=== PATIENT | male | born 1940 | race Caucasian/White ===

== ENCOUNTER 2017-07-03 13:17 | Emergency (ER) | payer OTHER ==
--- OUTSIDE RECORDS SUMMARY | 2017-07-03 13:18 | XMS REPORT | Clinical Summary ---
:1940 Author Organization [facility] Address [address] [place] [address] Phone Care Team Providers Name Role Phone Unavailable Primary Care Provider Unavailable Allergies No Known Allergies Current Medications Prescription Sig. Disp. Refills Start Date End Date Status rosuvastatin Take 20 mg by Active (CRESTOR) 20 MG mouth daily. tablet ALPRAZolam (XANAX) 2 Take 2 mg by Active MG tablet mouth daily. olmesartan (BENICAR) Take 20 mg by Active 20 MG tablet mouth daily. metFORMIN Take 500 mg by Active (GLUCOPHAGE) 500 MG mouth daily tablet with breakfast. rivaroxaban (XARELTO) Take 20 mg by Active 20 mg Tab tablet mouth nightly. multivitamin per Take 1 tablet Active tablet by mouth daily. aspirin 325 MG tablet Take 325 mg by 11/12/2016 Discontinued mouth daily. CYANOCOBALAMIN, Take by mouth 2 11/12/2016 Discontinued VITAMIN B-12, (two) times (VITAMIN B-12 ORAL) daily. cloNIDine HCl Take 0.1 mg by 11/12/2016 Discontinued (CATAPRES) 0.1 MG mouth 3 (three) tablet times daily as needed. Active Problems Not on file Encounters Date Type Specialty Care Team Description 11/12/2016 Hospital Encounter Stan Rodriguez MD after 07/02/2016 Social History Tobacco Use Types Packs/Day Years Used Date Never Smoker Smokeless Tobacco: Never Used Alcohol Use Drinks/Week oz/Week Comments Yes couple of glasses of wine daily Sex Assigned at Date Recorded Not on file Last Filed Vital Signs Vital Sign Reading Time Taken Blood Pressure 141/88 11/12/2016 9:29 AM CDT Pulse 68 11/12/2016 9:29 AM CDT Temperature 36.8 C (98.2 F) 11/12/2016 5:28 AM CDT Respiratory Rate 18 11/12/2016 9:29 AM CDT Oxygen Saturation 97% 11/12/2016 9:29 AM CDT Inhaled Oxygen Concentration - - Weight 103.6 kg (228 lb 8 oz) 11/12/2016 5:28 AM CDT Height 175.3 cm (5' 9") 11/12/2016 5:28 AM CDT Body Mass Index 33.74 11/12/2016 5:28 AM CDT Plan of Treatment Health Maintenance Due Date Last Done Comments INFLUENZA VACCINE 11/09/2017 Results RHYTHM STRIP - SCAN (11/13/2016 11:40 AM)after 07/02/2016
--- NOTE | 2017-07-03 15:20 | RAD REPORT ---
EXAM DESCRIPTION: RAD - Shoulder Left 2 View - 07/03/2017 3:11 pm CLINICAL HISTORY: Fall, left shoulder pain COMPARISON: None. FINDINGS: Mild subacromial outlet narrowing is seen which could indicate underlying rotator cuff pat hology. No fracture dislocation identified.
--- NOTE | 2017-07-03 15:24 | RAD REPORT ---
EXAM DESCRIPTION: RAD - Elbow Left 3 View - 07/03/2017 3:10 pm CLINICAL HISTORY: Left elbow pain. COMPARISON: None. FINDINGS: Fracture radial head is noted with minimal displacement. Mild adjacent soft tissue swellin g is seen. IMPRESSION: Radial head fracture.
--- NOTE | 2017-07-03 15:38 | ER ---
Nurse's Notes [facility] Name: Leonidas Corona Age: 77 yrs Sex: Male : 1940 Arrival Date: 07/03/2017 Time: 13:19 Bed 7 Private MD: Kerwin Marlow Diagnosis: Fall due to bumping against object;Pain in left shoulder;Displaced fracture of head of left radius Presentation: 07/03 13:36 Presenting complaint: Patient states: " I was working at the [employer] this morning and I ph slipped on some carpeted stairs and landed on my L side." Pt reports that pain in L upper arm and shoulder, states that he did hit his head, denies LOC, +blood thinners. Care prior to arrival: None. Mechanism of Injury: Fall down steps. Trauma event details: Injury occurred in the [facility], Injury occurred: in a public building. Injury occurred: July 03, 2017. 13:36 Acuity: EFFIE 3 ph 13:36 Method Of Arrival: Ambulatory 13:45 Transition of care: patient was not received from another setting of care. Onset of hb symptoms was July 03, 2017. Risk Assessment: Do you want to hurt yourself or someone else? Patient reports no desire to harm self or others. Initial Sepsis Screen: Does the patient meet any 2 criteria? No. Patient's initial sepsis screen is negative. Does the patient have a suspected source of infection? No. Patient's initial sepsis screen is negative. Trauma Activation: Alert Physician: ED Physician; Name: ; Notified At: ; Arrived At: Physician: General Surgeon; Name: ; Notified At: ; Arrived At: Physician: Radiology; Name: ; Notified At: ; Arrived At: Physician: Respiratory; Name: ; Notified At: ; Arrived At: Physician: Lab; Name: ; Notified At: ; Arrived At: Historical: - Allergies: 13:40 No Known Allergies; ph - Home Meds: 13:40 Xarelto oral oral [Active]; ph - PMHx: 13:40 Atrial Fib; ph - PSHx: 13:40 mitral valve repair; Knee surgery; Appendectomy; ph - Immunization history:: Adult Immunizations unknown. - Social history:: Smoking status: Patient/guardian denies using tobacco. - Immunization history: Last tetanus immunization: - up to date. < 5 years ago. - Ebola Screening: : No symptoms or risks identified at this time. Screenin:50 Abuse screen: Denies threats or abuse. Denies injuries from another. Tuberculosis hb screening: No symptoms or risk factors identified. 15:01 Nutritional screening: No deficits noted. Fall Risk None identified. hb Primary Survey: 13:45 A: Airway: patent, No supplemental oxygen in use on arrival. Breathing/Chest: hb Respiratory pattern: regular, Respiratory effort: spontaneous, unlabored, Breath sounds: clear, Chest inspection: symmetrical rise and fall of the chest. Circulation: Pulses: palpable . Skin color: pink, Skin temperature: warm, dry. Disability Alert. 14:45 Reassessment Airway Airway Patent Breathing/Chest Respiratory pattern Regular hb Respiratory effort Spontaneous Unlabored Chest inspection Symmetrical Circulation Pulses Palpable Color [place] Temperature Warm Dry Disability Alert. 15:45 Reassessment Airway Airway Patent Breathing/Chest Respiratory pattern Regular hb Respiratory effort Spontaneous Unlabored Chest inspection Symmetrical Circulation Pulses Palpable Color [place] Temperature Warm Dry Disability Alert. Secondary Survey: 13:45 HEENT: No deficits noted. Gastrointestinal: No deficits noted. : No deficits noted. hb No signs and/or symptoms were reported regarding the genitourinary system. Musculoskeletal: Swelling present in left elbow Reports pain in left arm and left elbow and posterior aspect of left shoulder and anterior aspect of left shoulder. Assessment: 13:43 General: Appears in no apparent distress. comfortable, Behavior is calm, cooperative. rv Pain: Complains of pain in back of left arm. Neuro: Level of Consciousness is awake, alert, obeys commands, Oriented to person, place, time, situation. Cardiovascular: Heart tones S1 S2 present. Respiratory: Breath sounds are clear bilaterally. GI: No signs and/or symptoms were reported involving the gastrointestinal system. : No signs and/or symptoms were reported regarding the genitourinary system. EENT: No signs and/or symptoms were reported regarding the EENT system. Derm: 14:30 Reassessment: Patient appears in no apparent distress at this time. Patient and/or hb family updated on plan of care and expected duration. Pain level reassessed. Patient is alert, oriented x 3, equal unlabored respirations, skin warm/dry/pink. 15:30 Reassessment: Patient appears in no apparent distress at this time. No changes from hb previously documented assessment. Patient and/or family updated on plan of care and expected duration. Pain level reassessed. Patient is alert, oriented x 3, equal unlabored respirations, skin warm/dry/pink. 16:26 Reassessment: Discharge ordered, waiting for copies of radiology results for pt to take hb to ortho per Dr. Saenz. Vital Signs: 13:41 BP 154 / 89; Pulse 77; Resp 18; Temp 99.6; Pulse Ox 95% on R/A; Weight 113.4 kg; Height ph 5 ft. 7 in. (170.18 cm); Pain 8/10; 14:30 BP 153 / 88; Pulse 74; Resp 16; Pulse Ox 100% on R/A; Pain 8/10; hb 15:30 BP 148 / 88; Pulse 74; Resp 16; Pulse Ox 100% on R/A; Pain 5/10; hb 13:41 Body Mass Index 39.16 (113.40 kg, 170.18 cm) ph [place] Coma Score: 13:41 Eye Response: spontaneous(4). Verbal Response: oriented(5). Motor Response: obeys ph commands(6). Total: 15. Trauma Score (Adult): 13:41 Eye Response: spontaneous(1); Verbal Response: oriented(1); Motor Response: obeys ph commands(2); Systolic BP: > 89 mm Hg(4); Respiratory Rate: 10 to 29 per min(4); [place] Score: 15; Trauma Score: 12 14:30 Eye Response: spontaneous(1); Verbal Response: oriented(1); Motor Response: obeys hb commands(2); Systolic BP: > 89 mm Hg(4); Respiratory Rate: 10 to 29 per min(4); Verónica Score: 15; Trauma Score: 12 15:30 Eye Response: spontaneous(1); Verbal Response: oriented(1); Motor Response: obeys hb commands(2); Systolic BP: > 89 mm Hg(4); Respiratory Rate: 10 to 29 per min(4); Verónica Score: 15; Trauma Score: 12 ED Course: 13:19 Patient arrived in ED. mr 13:20 Kerwin Marlow MD is Private Physician. mr 13:39 Brian Saenz MD is Attending Physician. azeem 13:39 Triage completed. ph 13:42 Arm band placed on. ph 13:46 Inserted saline lock: 18 gauge in right antecubital area, using aseptic technique. rv 13:50 Patient has correct armband on for positive identification. Placed in gown. Bed in low hb position. Call light in reach. Side rails up X 1. 13:50 Patient maintains SpO2 saturation greater than 95% on room air. Thermoregulation: warm hb blanket given to patient. 14:57 Estefani Freeman, RN is Primary Nurse. hb 15:04 X-ray completed. Portable x-ray completed in exam room. Patient tolerated procedure ag1 well. 15:06 Shoulder Left (2 View) XRAY In Process Unspecified. EDMS 15:06 Elbow Left 3 View XRAY In Process Unspecified. EDMS 15:37 Kerwin Marlow MD is Referral Physician. [facility] 15:37 Blu Gray MD is Referral Physician. azeem 16:00 Orthoglass splint: posterior long arm splint applied to the left arm. Radial pulse jb1 present and within normal limits before and after application of splint. Capillary refill was two seconds before and after application of splint. 16:20 No provider procedures requiring assistance completed. IV discontinued, intact, hb bleeding controlled, No redness/swelling at site. Pressure dressing applied. Administered Medications: 15:46 Drug: Motrin 400 mg Route: PO; hb 15:55 Follow up: Response: Medication administered at discharge. hb Intake: 14:30 PO: 0ml; Total: 0ml. hb Output: 14:30 Urine: 0ml; Total: 0ml. hb Outcome: 15:38 Discharge ordered by MD. azeem 16:20 Discharged to home ambulatory. hb 16:20 Condition: stable 16:20 Discharge instructions given to patient, Instructed on discharge instructions, follow up and referral plans. medication usage, Demonstrated understanding of instructions, follow-up care, medications, splint care, Prescriptions given X 1. 16:27 Patient left the ED. hb 16:28 Patient's length of stay in the Emergency Department was greater than 2 hours. awaiting hb dispo and copies of radiology results top take to orthoPatient's length of stay extended due to Signatures: Dispatcher [employer] EDJuan Sandoval jb1 Brian Saenz MD MD cha Rivera, Maria mr Ebony Breen RN RN Velvet Yanez ag1 Estefani Freeman RN Weston Weaver RN RN rv Corrections: (The following items were deleted from the chart) 13:43 13:41 Pulse 77bpm; Resp 18bpm; Pulse Ox 95% RA; Temp 99.6F; 113.4 kg; Height 5 ft. 7 ph in.; BMI: 39.1; Pain 8/10; ph
--- NOTE | 2017-07-03 15:38 | EDPHYS ---
Physician Documentation [facility] Name: Leonidas Corona Age: 77 yrs Sex: Male : 1940 Arrival Date: 07/03/2017 Time: 13:19 Bed 7 Private MD: Kerwin Marlow ED Physician Brian Saenz HPI: 07/03 13:42 This 77 yrs old Male presents to ER via Ambulatory with complaints of Fall azeem Injury. 13:42 Details of fall: The patient fell from an upright position. Onset: The symptoms/episode azeem began/occurred just prior to arrival. Associated injuries: The patient sustained anterior aspect of left shoulder, left antecubital area, posterior aspect of left shoulder and left elbow, decreased range of motion. Severity of symptoms: At their worst the symptoms were mild, in the emergency department the symptoms are unchanged. The patient has not experienced similar symptoms in the past. Historical: - Allergies: 13:40 No Known Allergies; ph - Home Meds: 13:40 Xarelto oral oral [Active]; ph - PMHx: 13:40 Atrial Fib; ph - PSHx: 13:40 mitral valve repair; Knee surgery; Appendectomy; ph - Immunization history:: Adult Immunizations unknown. - Social history:: Smoking status: Patient/guardian denies using tobacco. - Immunization history: Last tetanus immunization: - up to date. < 5 years ago. - Ebola Screening: : No symptoms or risks identified at this time. ROS: 13:44 Constitutional: Negative for fever, chills, and weight loss, Eyes: Negative for injury, zaeem pain, redness, and discharge, ENT: Negative for injury, pain, and discharge, Neck: Negative for injury, pain, and swelling, Cardiovascular: Negative for chest pain, palpitations, and edema, Respiratory: Negative for shortness of breath, cough, wheezing, and pleuritic chest pain, Abdomen/GI: Negative for abdominal pain, nausea, vomiting, diarrhea, and constipation, Back: Negative for injury and pain, : Negative for injury, bleeding, discharge, and swelling, Skin: Negative for injury, rash, and discoloration, Neuro: Negative for headache, weakness, numbness, tingling, and seizure, Psych: Negative for depression, anxiety, suicide ideation, homicidal ideation, and hallucinations, Allergy/Immunology: Negative for hives, rash, and allergies, Endocrine: Negative for neck swelling, polydipsia, polyuria, polyphagia, and marked weight changes, Hematologic/Lymphatic: Negative for swollen nodes, abnormal bleeding, and unusual bruising. 13:44 MS/extremity: Positive for decreased range of motion, pain, swelling, tenderness, of the anterior aspect of left shoulder, left antecubital area, posterior aspect of left shoulder and left elbow. Exam: 13:44 Constitutional: This is a well developed, well nourished patient who is awake, alert, azeem and in no acute distress. Head/Face: Normocephalic, atraumatic. Eyes: Pupils equal round and reactive to light, extra-ocular motions intact. Lids and lashes normal. Conjunctiva and sclera are non-icteric and not injected. Cornea within normal limits. Periorbital areas with no swelling, redness, or edema. ENT: Nares patent. No nasal discharge, no septal abnormalities noted. Tympanic membranes are normal and external auditory canals are clear. Oropharynx with no redness, swelling, or masses, exudates, or evidence of obstruction, uvula midline. Mucous membranes moist. Neck: Trachea midline, no thyromegaly or masses palpated, and no cervical lymphadenopathy. Supple, full range of motion without nuchal rigidity, or vertebral point tenderness. No Meningismus. Chest/axilla: Normal chest wall appearance and motion. Nontender with no deformity. No lesions are appreciated. Cardiovascular: Regular rate and rhythm with a normal S1 and S2. No gallops, murmurs, or rubs. Normal PMI, no JVD. No pulse deficits. Respiratory: Lungs have equal breath sounds bilaterally, clear to auscultation and percussion. No rales, rhonchi or wheezes noted. No increased work of breathing, no retractions or nasal flaring. Abdomen/GI: Soft, non-tender, with normal bowel sounds. No distension or tympany. No guarding or rebound. No evidence of tenderness throughout. Back: No spinal tenderness. No costovertebral tenderness. Full range of motion. Male : Normal genitalia with no discharge or lesions. Skin: Warm, dry with normal turgor. Normal color with no rashes, no lesions, and no evidence of cellulitis. Neuro: Awake and alert, GCS 15, oriented to person, place, time, and situation. Cranial nerves II-XII grossly intact. Motor strength 5/5 in all extremities. Sensory grossly intact. Cerebellar exam normal. Normal gait. Psych: Awake, alert, with orientation to person, place and time. Behavior, mood, and affect are within normal limits. 13:44 Musculoskeletal/extremity: Extremities: grossly normal except: noted in the anterior aspect of left shoulder, left antecubital area, posterior aspect of left shoulder and left elbow: decreased ROM, pain. Vital Signs: 13:41 BP 154 / 89; Pulse 77; Resp 18; Temp 99.6; Pulse Ox 95% on R/A; Weight 113.4 kg; Height ph 5 ft. 7 in. (170.18 cm); Pain 8/10; 14:30 BP 153 / 88; Pulse 74; Resp 16; Pulse Ox 100% on R/A; Pain 8/10; hb 15:30 BP 148 / 88; Pulse 74; Resp 16; Pulse Ox 100% on R/A; Pain 5/10; hb 13:41 Body Mass Index 39.16 (113.40 kg, 170.18 cm) ph [place] Coma Score: 13:41 Eye Response: spontaneous(4). Verbal Response: oriented(5). Motor Response: obeys ph commands(6). Total: 15. Trauma Score (Adult): 13:41 Eye Response: spontaneous(1); Verbal Response: oriented(1); Motor Response: obeys ph commands(2); Systolic BP: > 89 mm Hg(4); Respiratory Rate: 10 to 29 per min(4); Verónica Score: 15; Trauma Score: 12 14:30 Eye Response: spontaneous(1); Verbal Response: oriented(1); Motor Response: obeys hb commands(2); Systolic BP: > 89 mm Hg(4); Respiratory Rate: 10 to 29 per min(4); [place] Score: 15; Trauma Score: 12 15:30 Eye Response: spontaneous(1); Verbal Response: oriented(1); Motor Response: obeys hb commands(2); Systolic BP: > 89 mm Hg(4); Respiratory Rate: 10 to 29 per min(4); Verónica Score: 15; Trauma Score: 12 MDM: 13:39 Patient medically screened. [facility] 13:45 Data reviewed: vital signs, nurses notes, radiologic studies, plain films. [facility] 07/03 13:42 Order name: Shoulder Left (2 View) XRAY [facility] 07/03 13:42 Order name: Elbow Left 3 View XRAY [facility] 07/03 13:42 Order name: Ice pack; Complete Time: 14:22 [facility] 07/03 15:36 Order name: Splint - Elbow - Posterior; Complete Time: 15:55 [facility] 07/03 15:36 Order name: Sling; Complete Time: 15:55 [facility] Administered Medications: 15:46 Drug: Motrin 400 mg Route: PO; 15:55 Follow up: Response: Medication administered at discharge. Disposition: 07/03/17 15:38 Discharged to Home. Impression: Fall due to bumping against object, Pain in left shoulder, Displaced fracture of head of left radius. - Condition is Stable. - Discharge Instructions: Musculoskeletal Pain, Radial Head Fracture, Shoulder Pain, Radial Head Fracture, [id number]. - Prescriptions for Tylenol- Codeine #3 300-30 mg Oral Tablet - take 2 tablet by ORAL route every 6 hours As needed; 30 tablet. - Medication Reconciliation Form, Thank You Letter, Antibiotic Education, Prescription Opioid Use form. - Follow up: Kerwin Marlow MD; When: 2 - 3 days; Reason: Recheck today's complaints, Continuance of care, Re-evaluation by your physician. Follow up: Blu Gray MD; When: 2 - 3 days; Reason: Recheck today's complaints, Re-evaluation by your physician. - Problem is new. - Symptoms have improved. Signatures: Dispatcher [employer] EDVT Brian Saenz MD MD cha Hall, Patricia, RN RN Estefani Freeman RN RN Corrections: (The following items were deleted from the chart) 16:27 15:38 07/03/2017 15:38 Discharged to Home. Impression: Fall due to bumping against object; Pain in left shoulder; Displaced fracture of head of left radius. Condition is Stable. Forms are Medication Reconciliation Form, Thank You Letter, Antibiotic Education, Prescription Opioid Use. Follow up: Kerwin Marlow; When: 2 - 3 days; Reason: Recheck today's complaints, Continuance of care, Re-evaluation by your physician. Follow up: Dr. Blu Gray; When: 2 - 3 days; Reason: Recheck today's complaints, Re-evaluation by your physician. Problem is new. Symptoms have improved. azeem
[2017-07-03] MEDS ORDERED: IBUPROFEN 200 MG TAB PO ONE (15:43)
== END 2017-07-03 16:27 | disposition home or self-care (01) ==
LOC: ER 13:17
DX: S52.122A Displaced fracture of head of left radius, initial encounter for closed fracture (principal); W18.00XA Striking against unspecified object with subsequent fall, initial encounter; Y93.89 Activity, other specified; Y92.9 Unspecified place or not applicable; Z79.02 Long term (current) use of antithrombotics/antiplatelets; I48.91 Unspecified atrial fibrillation
CPT/HCPCS: 99284

== ENCOUNTER 2018-04-22 10:06 | Observation (INO) | payer OTHER ==
--- OUTSIDE RECORDS SUMMARY | 2018-04-22 10:09 | XMS REPORT ---
:1940 Author Organization [employer] Care Team Providers Name Role Phone Blu Gray Provider Role Unavailable Allergies, Adverse Reactions, Alerts Substance Reaction Event Type N.K.D.A. Info Not Available Non Drug Allergy Problems Problem Type Condition Code Onset Dates Condition Status Assessment Elbow pain, left M25.522 Active Assessment Closed displaced fracture of head S52.122D Active of left radius with routine healing, subsequent encounter Assessment Sprain of left shoulder, S43.402D Active unspecified shoulder sprain type, subsequent encounter Medications Medication Code Code Instructions Start End Status Dosage System Date Date Flecainide [facility] 51333334825 50 MG Orally September 08, Active as directed Acetate 2017 Benicar [facility] 43095306655 20 MG Orally September 08, Active 1 tablet Once a day 2017 Xanax [facility] 72265781935 0.5 MG Orally September 08, Active 1 tablet Twice a day 2017 Xarelto [facility] 66480229594 10 MG Orally September 08, Active 1 tablet Once a day 2018 with food Metformin HCl ND 29491793511 500 MG Orally September 08, Active 1 tablet Once a day 2017 with a meal Crestor [facility] 78856598323 10 MG Orally September 08, Active 1 tablet Once a day 2018 Results No Known Results Summary Purpose [employer] Submission
--- OUTSIDE RECORDS SUMMARY | 2018-04-22 10:09 | XMS REPORT | Clinical Summary ---
:1940 Author Organization [facility] Address [address] [place] [address] Care Team Providers Name Role Phone Kerwin Marlow Primary Care Provider Allergies No Known Allergies Medications Medication Sig Dispensed Refills Start Date End Date Status rosuvastatin (CRESTOR) Take 20 mg by 0 Active 20 MG tablet mouth daily. ALPRAZolam (XANAX) 2 MG Take 2 mg by 0 Active tablet mouth daily. olmesartan (BENICAR) 20 Take 20 mg by 0 Active MG tablet mouth daily. metFORMIN (GLUCOPHAGE) Take 500 mg by 0 Active 500 MG tablet mouth daily with breakfast. rivaroxaban (XARELTO) Take 20 mg by 0 Active 20 mg Tab tablet mouth nightly. multivitamin per tablet Take 1 tablet by 0 Active mouth daily. Active Problems Not on file Social History Tobacco Use Types Packs/Day Years Used Date Never Smoker Smokeless Tobacco: Never Used Alcohol Use Drinks/Week oz/Week Comments Yes couple of glasses of wine daily Sex Assigned at Date Recorded Not on file Job Start Date Occupation Industry Not on file Not on file Not on file Travel History Travel Start Travel End No recent travel history available. Last Filed Vital Signs Not on file Plan of Treatment Health Maintenance Due Date Last Done Comments INFLUENZA VACCINE 11/09/2017 Results Not on fileafter 04/21/2017 Insurance Payer Benefit Plan / Subscriber ID Type Phone Address Group [employer] - MEDICARE [employer] MEDICARE HMO xxxxxxxx [phone] [address] [employer] POS [facility]PO [facility] [place] [address] [address] (Home) [place] [address]
--- OUTSIDE RECORDS SUMMARY | 2018-04-22 10:09 | XMS REPORT ---
:1940 Author Organization [employer] Care Team Providers Name Role Phone Blu Gray Provider Role Unavailable Allergies, Adverse Reactions, Alerts Substance Reaction Event Type N.K.D.A. Info Not Available Non Drug Allergy Problems Problem Type Condition Code Onset Dates Condition Status Problem Closed displaced fracture of head S52.122D Active of left radius with routine healing, subsequent encounter Problem Elbow pain, left M25.522 Active Assessment Elbow pain, left M25.522 Active Assessment Closed displaced fracture of head S52.122D Active of left radius with routine healing, subsequent encounter Medications Medication Code Code Instructions Start End Status Dosage System Date Date Crestor [facility] 70598381575 10 MG Orally September 08, Active 1 tablet Once a day 2017 Xanax [facility] 61272555541 0.5 MG Orally September 08, Active 1 tablet Twice a day 2017 Metformin HCl ND 14021459933 500 MG Orally September 08, Active 1 tablet Once a day 2018 with a meal Benicar [facility] 88524282848 20 MG Orally September 08, Active 1 tablet Once a day 2017 Flecainide ND 63683282146 50 MG Orally September 08, Active as directed Acetate 2018 Xarelto ND 84948799988 10 MG Orally September 08, Active 1 tablet Once a day 2018 with food Results No Known Results Summary Purpose [employer]Works Submission
[2018-04-22] MEDS ORDERED: ACETAMINOPHEN 500 MG TAB ONE (11:03)
[2018-04-22] MEDS ORDERED: LEVALBUTEROL 1.25 MG/3 ML NEB ONE (11:03)
[2018-04-22] MEDS ORDERED: NA CHLORIDE 0.9% 500 ML ONE (11:03)
[2018-04-22 11:23] LABS: Protime INR 1.16
[2018-04-22 11:24] LABS: Absolute Lymphocytes (CBC) 0.4 K/uL (0.7-4.9); Absolute Monocytes 0.7 K/uL (0.1-1.3); Absolute Neutrophil 4.5 K/uL (1.8-8.0); Basophils % 0.5 % (0-1.3); Eosinophils % 1.8 % (0-4.4); Hematocrit 40.7 % (39.6-49.0); Lymphocytes % 7.4 % (15.3-44.8); MPV 9.1 fL (7.6-11.3); Monocytes % 12.8 % (3.3-12.3); RBC Red Blood Cell Count 4.24 M/uL (4.33-5.43)
--- NOTE | 2018-04-22 11:33 | RAD REPORT ---
EXAM DESCRIPTION: Dmitri Single View04/22/2018 11:27 am CLINICAL HISTORY: Shortness of breath COMPARISON: 2010 FINDINGS: Mild bilateral pulmonary opacities. The heart is mildly to moderately enlarged. Postsurgical changes involve the chest. IMPRESSION: Mild CHF
[2018-04-22 11:40] LABS: ALT/SGPT 34 U/L (12-78); AST/SGOT 22 U/L (15-37); Albumin 3.8 g/dL (3.4-5.0); Alkaline Phosphatase 100 U/L (45-117); BUN Blood Urea Nitrogen 16 mg/dL (7-18); Bicarbonate 30 mmol/L (21-32); Bilirubin Direct 0.2 mg/dL (0-0.2); Bilirubin Total 0.5 mg/dL (0.2-1.0); Glucose Level 116 mg/dL (74-106); NT PRO-BNP 2160 pg/mL (<450); Potassium 4.2 mmol/L (3.5-5.1); Protein, Total 7.7 g/dL (6.4-8.2); Sodium Level 139 mmol/L (136-145); Troponin (Emerg Dept Use Only) < 0.02 ng/mL (0.0-0.045)
--- NOTE | 2018-04-22 12:32 | EDPHYS ---
Physician Documentation [facility] Name: Leonidas Corona Age: 77 yrs Sex: Male : 1940 Arrival Date: 04/22/2018 Time: 10:15 Bed 8 Private MD: Kerwin Marlow ED Physician Brian Saenz HPI: 04/22 10:51 This 77 yrs old Male presents to ER via Ambulatory with complaints of Flu jmm Symptoms. 10:51 The patient or guardian reports cough. Onset: The symptoms/episode began/occurred jmm gradually, 3 day(s) ago. Modifying factors: The symptoms are alleviated by nothing. the symptoms are aggravated by nothing. Associated signs and symptoms: Pertinent positives: diarrhea, fever. This is a 77 year old male with a history of atrial fibrillation, dm, htn, anxiety that presents to the ED with complaints of cough, shortness of breath, diarrhea. . Historical: - Allergies: 10:48 No Known Allergies; hb - Home Meds: 10:48 Xarelto Oral [Active]; gabapentin oral oral [Active]; Furosemide Oral [Active]; unknown hb cholesterol med [Active]; Xanax Oral [Active]; - PMHx: 10:48 Atrial Fib; hb - PSHx: 10:48 mitral valve repair; Knee surgery; Appendectomy; hb - Immunization history:: Adult Immunizations up to date. - Social history:: Smoking status: Patient/guardian denies using tobacco. - Ebola Screening: : No symptoms or risks identified at this time. ROS: 10:51 Constitutional: Positive for body aches, fever. jmm 10:51 Respiratory: Positive for cough, shortness of breath. 10:51 Abdomen/GI: Positive for diarrhea. 10:51 All other systems are negative. Exam: 10:51 Constitutional: This is a well developed, well nourished patient who is awake, alert, jmm and in no acute distress. Head/Face: atraumatic. Eyes: EOMI, no conjunctival erythema appreciated ENT: Moist Mucus Membranes Neck: Trachea midline, Supple Chest/axilla: Normal chest wall appearance and motion. 10:51 Cardiovascular: Rate: tachycardic, Rhythm: regular. 10:51 Respiratory: mild respiratory distress is noted, Respirations: normal, Breath sounds: wheezing: is scattered. 10:51 Back: ROM is normal. 10:51 Musculoskeletal/extremity: ROM: intact in all extremities. 10:51 Skin: Appearance: Color: normal in color. 10:51 Neuro: Orientation: is normal, Mentation: is normal, Memory: is normal. 10:51 Psych: Behavior/mood is pleasant, cooperative. Vital Signs: 10:44 BP 180 / 105; Pulse 115; Resp 40; Temp 100.2(O); Pulse Ox 94% on R/A; Pain 3/10; hb 15:12 BP 106 / 77; Pulse 111; Resp 24; Pulse Ox 97% on R/A; sv MDM: 10:44 Patient medically screened. azeem 12:29 Data reviewed: vital signs, nurses notes. Counseling: I had a detailed discussion with adela the patient and/or guardian regarding: the historical points, exam findings, and any diagnostic results supporting the discharge/admit diagnosis, lab results, radiology results, the need for further work-up and treatment in the hospital. ED course: Patient still exhibits mild resp distress. I discussed the patient with Dr. Byrne whom accepted admission. . 04/22 10:47 Order name: Basic Metabolic Panel; Complete Time: 11:42 [facility] 04/22 10:47 Order name: CBC with Diff; Complete Time: 11:35 [facility] 04/22 10:47 Order name: LFT's; Complete Time: 11:42 [facility] 04/22 10:47 Order name: Magnesium; Complete Time: 11:42 [facility] 04/22 10:47 Order name: NT PRO-BNP; Complete Time: 11:42 [facility] 04/22 10:47 Order name: PT-INR; Complete Time: 11:35 [facility] 04/22 10:47 Order name: Troponin (emerg Dept Use Only); Complete Time: 11:42 [facility] 04/22 10:47 Order name: XRAY Chest (1 view); Complete Time: 11:35 [facility] 04/22 10:48 Order name: Blood Culture Adult (2) [facility] 04/22 10:48 Order name: Lactate; Complete Time: 11:42 [facility] 04/22 10:48 Order name: Procalcitonin; Complete Time: 12:34 [facility] 04/22 11:43 Order name: Flu; Complete Time: 12:25 [facility] 04/22 13:08 Order name: Echo with Doppler [facility] 04/22 10:47 Order name: EKG; Complete Time: 10:48 [facility] 04/22 10:47 Order name: Cardiac monitoring; Complete Time: 12:05 [facility] 04/22 10:47 Order name: EKG - Nurse/Tech; Complete Time: 12:06 [facility] 04/22 10:47 Order name: IV Saline Lock; Complete Time: 12: [facility] 04/22 10:47 Order name: Labs collected and sent; Complete Time: 12: [facility] 04/22 10:47 Order name: O2 Per Protocol; Complete Time: 12: [facility] 04/22 10:47 Order name: O2 Sat Monitoring; Complete Time: 12: [facility] Administered Medications: 11:05 Drug: NS 0.9% 500 ml Route: IV; Rate: bolus; Site: left antecubital; sg 11:05 Drug: Tylenol 1000 mg Route: PO; sg 11:05 Drug: Xopenex (3) 1.25 mg Route: Inhalation; sg 15:07 Drug: Metoprolol 25 mg Route: PO; sv 15:08 Drug: Tamiflu 75 mg Route: PO; sv Disposition: 04/23 09:07 Co-signature as Attending Physician, Brian Saenz MD I agree with the assessment and azeem plan of care. Disposition: 04/22/18 12:32 Hospitalization ordered by Cornel Byrne for Observation. Preliminary diagnosis are Influenza due to certain identified influenza viruses, Acute combined systolic (congestive) and diastolic (congestive) heart failure. - Bed requested for Telemetry/MedSurg (observation). - Status is Observation. hb - Condition is Stable. - Problem is new. - Symptoms have improved. UTI on Admission? No Signatures: Dispatcher [employer] EDCT Dhara Napier RN Bebe Galvez RN RN dw Gay, Steven, RN RN sg Anderson, Corey, MD MD cha Mickail, Joel, PA PA [facility] Estefani Freeman RN RN hb Corrections: (The following items were deleted from the chart) 04/22 14:38 12:32 Hospitalization Ordered by Cornel Byrne MD for Observation. Preliminary diagnosis dw is Influenza due to certain identified influenza viruses; Acute combined systolic (congestive) and diastolic (congestive) heart failure. Bed requested for Telemetry/MedSurg (observation). Status is Observation. Condition is Stable. Problem is new. Symptoms have improved. UTI on Admission? No. jmm 15:30 14:38 04/22/2018 12:32 Hospitalization Ordered by Cornel Byrne MD for Observation. hb Preliminary diagnosis is Influenza due to certain identified influenza viruses; Acute combined systolic (congestive) and diastolic (congestive) heart failure. Bed requested for Telemetry/MedSurg (observation). Status is Observation. Condition is Stable. Problem is new. Symptoms have improved. UTI on Admission? No. dw
--- NOTE | 2018-04-22 12:32 | ER ---
Nurse's Notes [facility] Name: Leonidas Corona Age: 77 yrs Sex: Male : 1940 Arrival Date: 04/22/2018 Time: 10:15 Bed 8 Private MD: Kerwin Marlow Diagnosis: Influenza due to certain identified influenza viruses;Acute combined systolic (congestive) and diastolic (congestive) heart failure Presentation: 04/22 10:44 Acuity: EFFIE 2 hb 10:45 Presenting complaint: SOB, productive cough, body aches, chills, dizziness, lethargy, hb and diarrhea x 3 days. Transition of care: patient was not received from another setting of care. Onset of symptoms was April 19, 2018. Risk Assessment: Do you want to hurt yourself or someone else? Patient reports no desire to harm self or others. Care prior to arrival: None. 10:45 Method Of Arrival: Ambulatory hb Historical: - Allergies: 10:48 No Known Allergies; hb - Home Meds: 10:48 Xarelto Oral [Active]; gabapentin oral oral [Active]; Furosemide Oral [Active]; unknown hb cholesterol med [Active]; Xanax Oral [Active]; - PMHx: 10:48 Atrial Fib; hb - PSHx: 10:48 mitral valve repair; Knee surgery; Appendectomy; hb - Immunization history:: Adult Immunizations up to date. - Social history:: Smoking status: Patient/guardian denies using tobacco. - Ebola Screening: : No symptoms or risks identified at this time. Screenin:00 Abuse screen: Denies threats or abuse. Denies injuries from another. Nutritional sg screening: No deficits noted. Tuberculosis screening: No symptoms or risk factors identified. Never had TB. Fall Risk None identified. Assessment: 11:00 General: Appears in no apparent distress. well groomed, well developed, well nourished, sg Behavior is calm, cooperative, appropriate for age. Pain: Denies pain. Quality of pain is described as body aches, and sore throat. Neuro: Level of Consciousness is awake, alert, obeys commands, Oriented to person, place, time, Speech is normal, Facial symmetry appears normal. Cardiovascular: Capillary refill is brisk in bilateral fingers Patient's skin is warm and dry. Chest pain is denied. Respiratory: Airway is patent Respiratory effort is even, labored, shallow, Respiratory pattern is symmetrical, tachypnea. GI: Abdomen is round non-distended, Bowel sounds present X 4 quads. : No signs and/or symptoms were reported regarding the genitourinary system. EENT: No signs and/or symptoms were reported regarding the EENT system. Derm: Skin is pink, warm \T\ dry. Musculoskeletal: No signs and/or symptoms reported regarding the musculoskeletal system. Vital Signs: 10:44 BP 180 / 105; Pulse 115; Resp 40; Temp 100.2(O); Pulse Ox 94% on R/A; Pain 3/10; hb 15:12 BP 106 / 77; Pulse 111; Resp 24; Pulse Ox 97% on R/A; sv ED Course: 10:15 Patient arrived in ED. dp 10:15 Kerwin Marlow MD is Private Physician. dp 10:41 [facility] jmm 10:41 Brian Saenz MD is Attending Physician. jmm 10:45 Triage completed. hb 10:46 Arm band placed on. hb 11:00 Initial lab(s) drawn, by me, sent to lab. First set of blood cultures drawn by me. dh3 Inserted saline lock: 20 gauge in left antecubital area, using aseptic technique. Blood collected. 11:15 Second set of blood cultures drawn by me. dh3 11:19 Ole Wayne, RN is Primary Nurse. sg 11:25 X-ray completed. Portable x-ray completed in exam room. Patient tolerated procedure sw well. 11:27 XRAY Chest (1 view) In Process Unspecified. EDMS 11:41 EKG done, by residential tech. reviewed by Kennedy WILSON. at1 12:03 Flu and/or RSV swab sent to lab. dh3 12:31 Cornel Byrne MD is Hospitalizing Provider. m Administered Medications: 11:05 Drug: NS 0.9% 500 ml Route: IV; Rate: bolus; Site: left antecubital; sg 11:05 Drug: Tylenol 1000 mg Route: PO; sg 11:05 Drug: Xopenex (3) 1.25 mg Route: Inhalation; sg 15:07 Drug: Metoprolol 25 mg Route: PO; sv 15:08 Drug: Tamiflu 75 mg Route: PO; sv Outcome: 12:32 Decision to Hospitalize by Provider. adela 15:30 Patient left the ED. hb Signatures: Dispatcher [employer] Dhara Justin RN RN sv Gay, Steven, RN RN sg Mickail, Joel, PA PA Terese [email or web address], retort press operator EKG Tat1 Jessica Interiano Heather, RN RN Kailey Sherwood [facility] Reynaldo Moctezuma
[2018-04-22] MEDS ORDERED: METOPROLOL TAR 25 MG TAB ONE ×2 (14:48→15:17)
[2018-04-22] MEDS ORDERED: OSELTAMIVIR 75 MG CAP ONE (15:17)
[2018-04-22] MEDS ORDERED: D50W 25 GM/50 ML SYRINGE IV PRN (15:39)
[2018-04-22] MEDS ORDERED: GLUCAGON 1 MG/VIAL IM PRN (15:39)
[2018-04-22] MEDS: IPRATROPIUM BROM 0.5MG/2.5ML NEB SCH ×2 (15:58→20:00)
[2018-04-22] MEDS: LEVALBUTEROL 1.25 MG/3 ML NEB NEB SCH ×2 (15:58→20:00)
[2018-04-22] MEDS ORDERED: INSULIN -REGULAR HUMAN 50 UNIT/0.5 ML ML SQ SCH (16:30)
[2018-04-22] MEDS ORDERED: POTASSIUM CL SA 10 MEQ TAB PO ONE (16:30)
[2018-04-22 16:51] LABS: Thyroid Stimulating Hormone 0.761 uIU/mL (0.360-3.740)
--- NOTE | 2018-04-22 17:22 | ECHO ---
HEIGHT: ft in WEIGHT: lb oz DATE OF STUDY: 04/22/[address]: Cornel Byrne MD 2-DIMENSIONAL: YES M.MODE: YES DOPPLER: YES COLOR FLOW: YES TDS: PORTABLE: DEFINITY: BUBBLE STUDY: DIAGNOSIS: CONGESTIVE HEART FAILURE FINDINGS CARDIAC HISTORY: CATHERIZATION: SURGERY: YES PROSTHETIC VALVE: MITRAL VALVE REPAIR PACEMAKER: NO MEASUREMENTS (cm) DIASTOLIC (NORMALS) SYSTOLIC (NORMALS) IVSd 1.2 (0.6-1.2) LA Diam 4.9 (1.9-4.0) LVEF 60-69% LVIDd 4.1 (3.5-5.7) LVIDs 3.1 (2.0-3.5) %FS 25% LVPWd 1.3 (0.6-1.2) Ao Diam 2.9 (2.0-3.7) 2 DIMENSIONAL ASSESSMENT: RIGHT ATRIUM: DILATED LEFT ATRIUM: DILATED RIGHT VENTRICLE: NORMAL LEFT VENTRICLE: LEFT VENTRICULAR HYPERTROPHY TRICUSPID VALVE: NORMAL MITRAL VALVE: THICKENED ANNULUS CONSISTENT WITH REHMAN RING. PULMONIC VALVE: NORMAL AORTIC VALVE: NORMAL PERICARDIAL EFFUSION: NONE AORTIC ROOT: NORMAL LEFT VENTRICULAR WALL MOTION: NORMAL DOPPLER/COLOR FLOW: MILD ATRIAL REGURGITATION, MITRAL REGURGITATION, AND TRICUSPID REGURGITATION. ESTIMATED RIGHT VENTRICULAR SYSTOLIC PRESSURE 55 mmHg. COMMENTS: NORMAL LEFT VENTRICULAR EJECTION FRACTION. DILATED RIGHT AND LEFT ATRIUM. LEFT VENTRICULAR HYPERTROPHY. MITRAL ANNULAR CALCIFICATION. MILD AORTIC REGURGITATION, MITRAL REGURGITAITON, AND TRICUSPID REGURGITATION. MODERATE PULMONARY HYPERTENSION. ATRIAL FIBRILLATION WITH HEART RATE OF 90-110 BEATS PER MINUTE. TECHNOLOGIST: LAZARO GARDNER
[2018-04-22] MEDS ORDERED: PNEUMOCOCCAL VACCINE 0.5 ML IMVAC ONE (18:00)
[2018-04-22] MEDS ORDERED: ACETAMINOPHEN 500 MG TAB PO PRN (21:18)
--- NOTE | 2018-04-22 22:52 | P.HP ---
Certification for Inpatient Patient admitted to: Observation With expected LOS: <2 Midnights Practitioner: I am a practitioner with admitting privileges, knowledge of patient current condition, hospital course, and medical plan of care. Services: Services provided to patient in accordance with Admission requirements found in Title 42 Section 412.3 of the Code of Federal Regulations Patient History Date of Service: 04/22/18 Primary Care Provider: Dr. Marlow Reason for admission: Generalized weakness History of Present Illness: This is a 77 yr old male with a PMH of A-fib, Mitral valve repair admitted for lethargy, cough and congestion that has been progressively worsening for the past few days. He also endorses some watery, non bloody diarrhea that has now improved. In the ED, he was found to be in A fin with HR of 115s, and tachypneac. He was also found to be influenza positive. His BNP was elevated to 2160, pt reports he has no hx of CHF. His other labs were unremarkable. CXR was with evidence of mild volume overload. He was given breathing treatment wiht xopenex along with 500 ml IVF. At the time of my exam, he was AAOx3, in no acute distress and hemodynamically stable. Allergies No Known Allergies Allergy (Unverified 07/03/17 16:30) Home Medications: ALPRAZolam [Alprazolam] 0.5 tab PO DAILY PRN 04/22/18 Flecainide [Tambocor*] 50 mg PO Q12H 04/22/18 Metformin ER [Glucophage ER*] 500 mg PO DAILY 04/22/18 Olmesartan Medoxomil 20 mg PO DAILY 04/22/18 Rivaroxaban [Xarelto] 20 mg PO DAILY 04/22/18 Rosuvastatin [Crestor*] 20 mg PO BEDTIME 04/22/18 - Past Medical/Surgical History Has patient received pneumonia vaccine in the past: No Diabetic: No -: Appendicitis -: Atrial Fibrillation -: High cholesterol -: Mitral Valve Repair -: Knee surgery -: Appendectomy -: Root Canal - Family History Father Notes: - Congestive heart failure - Social History Smoking Status: Never smoker Alcohol use: Yes CD- Drugs: No Caffeine use: Yes Place of Residence: Home Review of Systems 10-point ROS is otherwise unremarkable Physical Examination - Vital Signs Temperature: 99.8 F Blood Pressure: 127/73 Pulse: 65 Respirations: 24 Pulse Ox (%): 95 - Physical Exam General: Alert, In no apparent distress, Oriented x3 HEENT: Atraumatic, PERRLA, Mucous membr. moist/pink, EOMI, Sclerae nonicteric Neck: Supple, 2+ carotid pulse no bruit, No LAD, Without JVD or thyroid abnormality Respiratory: Clear to auscultation bilaterally, Normal air movement Cardiovascular: Normal S1 S2, Irregular heart rate/rhythm Gastrointestinal: Normal bowel sounds, No tenderness Musculoskeletal: No tenderness Integumentary: No rashes Neurological: Normal gait, Normal speech, Normal strength at 5/5 x4 extr, Normal tone, Normal affect Lymphatics: No axilla or inguinal lymphadenopathy - Studies Laboratory Data (last 24 hrs) 04/22/18 11:00: PT 13.6 H, INR 1.16 04/22/18 11:00: WBC 5.8, Hgb 13.1 L, Hct 40.7, Plt Count 182 04/22/18 11:00: Sodium 139, Potassium 4.2, BUN 16, Creatinine 1.07, Glucose 116 H, Magnesium 2.0, Total Bilirubin 0.5, AST 22, ALT 34, Alkaline Phosphatase 100 Microbiology Data (last 24 hrs): 04/22/18 11:59 Nasopharnyx Influenza Type A Antigen Screen - Final 04/22/18 11:59 Nasopharnyx Influenza Type B Antigen Screen - Final Assessment and Plan - Plan This is a 77 yr old male with: Influenza: s/p 1 dose of tamiflu in ED. We will continue the Tamiflu. Provide supportive care. Elevated BNP: No hx of CHF; ECHO ordered, pending. Chronic A.fib, on xarelto. Will resume home medications as tolerated. DVT prophylaxis: Xarelto GI prophylaxis: None Diet: Heart healthy Dispo: admit to floor, pending symptomatic improvement. - Advance Directives Does patient have a Living Will: Yes Does patient have a Durable POA for Healthcare: Yes Time Spent Managing Pts Care (In Minutes): 55
[2018-04-22] MEDS ORDERED: ALPRAZOLAM 1 MG TABLET PO PRN (22:55)
[2018-04-22 23:37] LABS: Urine Appearance CLEAR; Urine Bilirubin NEGATIVE (NEG); Urine Blood TRACE (NEG); Urine Color YELLOW; Urine Glucose NEGATIVE (NEG); Urine Protein 1+ (NEG); Urine Urobilinogen 0.2 mg/dL (0.2-1.0)
[2018-04-22 23:46] LABS: Urine Microscopic Reflex ORDER UMIC
[2018-04-23 00:31] LABS: Urine Bacteria <20 /HPF (NONE SEEN); Urine Culture Reflex Order NOT NEEDED; Urine RBC <5 /HPF (NONE SEEN)
[2018-04-23] MEDS: LEVALBUTEROL 1.25 MG/3 ML NEB NEB SCH ×2 (02:00→07:38)
[2018-04-23] MEDS: IPRATROPIUM BROM 0.5MG/2.5ML NEB SCH ×2 (02:00→07:38)
[2018-04-23 05:10] LABS: Absolute Lymphocytes (CBC) 1.4 K/uL (0.7-4.9); Absolute Monocytes 0.8 K/uL (0.1-1.3); Absolute Neutrophil 2.5 K/uL (1.8-8.0); Basophils % 0.6 % (0-1.3); Eosinophils % 0.9 % (0-4.4); Hematocrit 35.9 % (39.6-49.0); Lymphocytes % 28.8 % (15.3-44.8); MPV 9.2 fL (7.6-11.3); Monocytes % 16.6 % (3.3-12.3); RBC Red Blood Cell Count 3.74 M/uL (4.33-5.43)
--- NOTE | 2018-04-23 05:35 | EKG ---
Test Date: 2018-04-22 Test Time: 11:05:46 Law Instructor: DONALDO MEASUREMENT RESULTS: Intervals: Rate: 129 IL: QRSD: 90 QT: 336 QTc: 492 Hubert: P: IL: QRS: 45 T: 36 INTERPRETIVE STATEMENTS: Atrial fibrillation with rapid ventricular response Nonspecific ST abnormality Abnormal ECG No previous ECG available for comparison Electronically Signed On 04-23-18 05:34:33 CDT by Steve Broussard
[2018-04-23 05:36] LABS: Albumin 3.1 g/dL (3.4-5.0); Bilirubin Total 0.3 mg/dL (0.2-1.0); Protein, Total 6.4 g/dL (6.4-8.2)
[2018-04-23 06:35] VITALS: BMI 33.2
--- NOTE | 2018-04-23 08:05 | RAD REPORT ---
EXAM DESCRIPTION: RAD - Chest Pa And Lat (2 Views) - 04/23/2018 7:14 am CLINICAL HISTORY: CHF COMPARISON: April 22 TECHNIQUE: PA and lateral views of the chest were obtained. FINDINGS: The lungs are no new mass or consolidation. Prominence of the lung markings has improved. Patient has a baseline of interstitial lung disease. Cardiac silhouette remains enlarged. Central v asculature has decreased in size. Sternotomy wires remain in place. No pleural effusion or pneumothor ax seen. No acute bony finding noted. No aortic abnormality. IMPRESSION: Significant improvement in the CHF/volume overload pattern. No progressive finding.
[2018-04-23 08:52] VITALS: BP 123/86; TEMP 97.9
[2018-04-23] MEDS ORDERED: RIVAROXABAN 20 MG TABLET PO SCH (09:00)
[2018-04-23] MEDS ORDERED: VALSARTAN 80 MG TAB PO SCH (09:00)
[2018-04-23] MEDS ORDERED: OSELTAMIVIR 75 MG CAP PO SCH (09:00)
[2018-04-23 09:15] LABS: Blood Morphology Comment NOT SEEN (NOT SEEN); Platelet Estimate ADEQ
[2018-04-23 13:34] VITALS: O2SAT 94
--- NOTE | 2018-04-23 16:42 | P.SSS ---
Patient History Date of Service: 04/23/18 Primary Care Provider: Dr. Marlow Reason for admission: Generalized weakness History of Present Illness: This is a 77 yr old male with a PMH of A-fib, Mitral valve repair admitted for lethargy, cough and congestion that has been progressively worsening for the past few days. He also endorses some watery, non bloody diarrhea that has now improved. In the ED, he was found to be in A fin with HR of 115s, and tachypneac. He was also found to be influenza positive. His BNP was elevated to 2160, pt reports he has no hx of CHF. His other labs were unremarkable. CXR was with evidence of mild volume overload. He was given breathing treatment wiht xopenex along with 500 ml IVF. At the time of my exam, he was AAOx3, in no acute distress and hemodynamically stable. Allergies No Known Allergies Allergy (Unverified 07/03/17 16:30) Home Medications: ALPRAZolam [Alprazolam] 0.5 tab PO DAILY PRN 04/22/18 Flecainide [Tambocor*] 50 mg PO Q12H 04/22/18 Metformin ER [Glucophage ER*] 500 mg PO DAILY 04/22/18 Olmesartan Medoxomil 20 mg PO DAILY 04/22/18 Rivaroxaban [Xarelto] 20 mg PO DAILY 04/22/18 Rosuvastatin [Crestor*] 20 mg PO BEDTIME 04/22/18 Oseltamivir [Tamiflu*] 75 mg PO BID #10 cap 04/23/18 - Past Medical/Surgical History Has patient received pneumonia vaccine in the past: No Diabetic: No -: Appendicitis -: Atrial Fibrillation -: High cholesterol -: Mitral Valve Repair -: Knee surgery -: Appendectomy -: Root Canal - Family History Father Notes: - Congestive heart failure - Social History Smoking Status: Never smoker Alcohol use: Yes CD- Drugs: No Caffeine use: Yes Place of Residence: Home Review of Systems 10-point ROS is otherwise unremarkable Physical Examination - Vital Signs Temperature: 97.9 F Blood Pressure: 123/86 Pulse: 92 Respirations: 18 Pulse Ox (%): 93 - Physical Exam General: Alert, In no apparent distress, Oriented x3 HEENT: Atraumatic, PERRLA, Mucous membr. moist/pink, EOMI, Sclerae nonicteric Neck: Supple, 2+ carotid pulse no bruit, No LAD, Without JVD or thyroid abnormality Respiratory: Clear to auscultation bilaterally, Normal air movement Cardiovascular: Regular rate/rhythm, Normal S1 S2 Gastrointestinal: Normal bowel sounds, No tenderness Musculoskeletal: No tenderness Integumentary: No rashes Neurological: Normal gait, Normal speech, Normal strength at 5/5 x4 extr, Normal tone, Normal affect Lymphatics: No axilla or inguinal lymphadenopathy - Studies Microbiology Data (last 24 hrs): 04/22/18 11:59 Nasopharnyx Influenza Type A Antigen Screen - Final 04/22/18 11:59 Nasopharnyx Influenza Type B Antigen Screen - Final Treatment Summary: Patient was admitted for influenza positive. He was started on Tamiflu and provide supportive care. He was also noted to have elevated BNP without any history of CHF. An echo was ordered, was negative with a normal ejection fraction. Repeat chest x-ray with improvement. His symptoms improved, he was discharged in a stable manner. Prior to discharge, he was alert oriented x3, in no acute distress and his symptoms had improved. He was tolerating a regular diet, ambulating without any concerns. He otherwise remained hemodynamically stable throughout the stay. He was discharged on Tamiflu, to complete a five-day course. No other medication changes were made to his regimen. He will follow up with his primary care physician in 1-2 weeks. - Disposition Discharge Date: 04/23/18 Disposition: ROUTINE DISCHARGE Condition: GOOD Patient Discharge Instructions: Please follow up with the primary care physician in 1 week. Prescription for Tamiflu has been sent to pharmacy for you. Please return to the emergency room for worsening symptoms. Diet: AHA Activity: Ad jatinder Time Spent Managing Pts Care (In Minutes): 45
[2018-04-23] MEDS ORDERED: ROSUVASTATIN 10 MG TAB PO SCH (21:00)
== END 2018-04-23 12:40 | disposition home or self-care (01) ==
LOC: ER 10:06 → ERHOLD 12:59 → 4TH 15:12
PROVIDERS: ADMIT Family Medicine; ATTEND Family Medicine
DX: J11.1 Influenza due to unidentified influenza virus with other respiratory manifestations (principal); I48.2 Chronic atrial fibrillation; Z79.01 Long term (current) use of anticoagulants; R79.9 Abnormal finding of blood chemistry, unspecified; E78.00 Pure hypercholesterolemia, unspecified
CPT/HCPCS: 93005; 93306; 87040 ×2; 85025 ×2; 80048; 36415; 83735; 85610; 80061; 82962 ×3; 80076; 83605; 84443; 84484 ×3; 84439; 80053; 84145; 83880; 87804 ×2; 71045; 71046; 94640; 94760 ×3; 99284; G0378 ×2; 81003; 81015

== ENCOUNTER 2018-06-16 21:55 | Emergency (ER) | payer OTHER ==
--- OUTSIDE RECORDS SUMMARY | 2018-06-16 21:58 | XMS REPORT ---
[...] End Status Dosage System Date Date Crestor [facility] 52721587010 10 MG Orally September 08, Active 1 tablet Once a day 2017 Xanax [facility] 30781078989 0.5 MG Orally September 08, Active 1 tablet Twice a day 2017 Metformin HCl ND 46426767129 500 MG Orally September 08, Active 1 tablet Once a day 2018 with a meal Benicar [facility] 11376492473 20 MG Orally September 08, Active 1 tablet Once a day 2017 Flecainide ND 27901512765 50 MG Orally September 08, Active as directed Acetate 2018 Xarelto ND 99730854399 10 MG Orally September 08, Active 1 tablet Once a day 2018 with food Results No Known Results Summary Purpose eClinicalWorks Submission
--- OUTSIDE RECORDS SUMMARY | 2018-06-16 21:58 | XMS REPORT | Clinical Summary ---
:1940 Author Organization [facility] Address [address] [place] [address] Care Team Providers Name Role Phone Kerwin [...] INFLUENZA VACCINE 11/09/2017 Results Not on fileafter 06/15/2017 Insurance Payer Benefit Plan / Subscriber ID Type Phone Address Group [employer] - MEDICARE [employer] MEDICARE HMO xxxxxxxx [phone] [address] [employer] P[facility] [place] [id number] [address] (Home) [place] [address]
--- OUTSIDE RECORDS SUMMARY | 2018-06-16 21:58 | XMS REPORT ---
[...] End Status Dosage System Date Date Flecainide [facility] 69311599301 50 MG Orally September 08, Active as directed Acetate 2017 Benicar [facility] 95603767296 20 MG Orally September 08, Active 1 tablet Once a day 2017 Xanax [facility] 93919608472 0.5 MG Orally September 08, Active 1 tablet Twice a day 2017 Xarelto [facility] 40615506868 10 MG Orally September 08, Active 1 tablet Once a day 2018 with food Metformin HCl ND 08421619673 500 MG Orally September 08, Active 1 tablet Once a day 2017 with a meal Crestor [facility] 27885735210 10 MG Orally September 08, Active 1 tablet Once a day 2018 Results No Known Results Summary Purpose eClinicalWorks Submission
--- NOTE | 2018-06-16 23:24 | EDPHYS ---
Physician Documentation [facility] Name: Leonidas Corona Age: 78 yrs Sex: Male : 1940 Arrival Date: 06/16/2018 Time: 21:58 Bed 3 Private MD: ED Physician Wolf Gonzalez HPI: 06/17 02:57 This 78 yrs old Male presents to ER via EMS with complaints of Fall Injury. gs 02:57 Details of fall: The patient fell from an upright position, while walking. Onset: The gs symptoms/episode began/occurred acutely, just prior to arrival. Associated injuries: The patient sustained injury to the head, contusion, hematoma. Severity of symptoms: At their worst the symptoms were moderate, in the emergency department the symptoms are unchanged. The patient has not experienced similar symptoms in the past. Historical: - Allergies: 06/16 22:09 No Known Allergies; tl2 - Home Meds: 22:09 Furosemide Oral [Active]; gabapentin Oral [Active]; Crestor oral oral [Active]; Xanax tl2 Oral [Active]; Xarelto Oral [Active]; Benicar oral oral [Active]; - PMHx: 22:09 Atrial Fib; mitral valve repair; High Cholesterol; tl2 - Immunization history: Last tetanus immunization: unknown. - Social history:: Smoking status: Patient/guardian denies using tobacco. - Ebola Screening: : No symptoms or risks identified at this time. - Social history: Uses alcohol. ROS: 06/17 02:57 Neuro: Negative for loss of consciousness. gs All other systems are negative. Exam: 02:57 Eyes: Pupils equal round and reactive to light, extra-ocular motions intact. Lids and gs lashes normal. Conjunctiva and sclera are non-icteric and not injected. Cornea within normal limits. Periorbital areas with no swelling, redness, or edema. ENT: Nares patent. No nasal discharge, no septal abnormalities noted. Tympanic membranes are normal and external auditory canals are clear. Oropharynx with no redness, swelling, or masses, exudates, or evidence of obstruction, uvula midline. Mucous membranes moist. Chest/axilla: Normal chest wall appearance and motion. Nontender with no deformity. No lesions are appreciated. Cardiovascular: Regular rate and rhythm with a normal S1 and S2. No gallops, murmurs, or rubs. Normal PMI, no JVD. No pulse deficits. Respiratory: Lungs have equal breath sounds bilaterally, clear to auscultation and percussion. No rales, rhonchi or wheezes noted. No increased work of breathing, no retractions or nasal flaring. Abdomen/GI: Soft, non-tender, with normal bowel sounds. No distension or tympany. No guarding or rebound. No evidence of tenderness throughout. Back: No spinal tenderness. No costovertebral tenderness. Full range of motion. Skin: Warm, dry with normal turgor. Normal color with no rashes, no lesions, and no evidence of cellulitis. MS/ Extremity: Pulses equal, no cyanosis. Neurovascular intact. Full, normal range of motion. Neuro: Awake and alert, GCS 15, oriented to person, place, time, and situation. Cranial nerves II-XII grossly intact. Motor strength 5/5 in all extremities. Sensory grossly intact. Cerebellar exam normal. Normal gait. 02:57 Constitutional: The patient appears alert, awake. 02:57 Head/face: Noted is hematoma, that is moderate, of the left side of the back of head. 02:57 Neck: C-spine: vertebral tenderness, that is moderate, appreciated at C3 and C4. Vital Signs: 05 22:11 BP 144 / 86; Pulse 98; Resp 18; Temp 97.6(O); Pulse Ox 95% on R/A; Weight 86.18 kg; tl2 Height 5 ft. 6 in. (167.64 cm); 23:09 BP 124 / 72; Pulse 89; Resp 18; Pulse Ox 96% ; tl2 23:39 BP 124 / 72; Pulse 64; Resp 18; Temp 98(O); Pulse Ox 98% ; tl2 22:11 Body Mass Index 30.67 (86.18 kg, 167.64 cm) tl2 Verónica Coma Score: 22:11 Eye Response: spontaneous(4). Verbal Response: oriented(5). Motor Response: obeys tl2 commands(6). Total: 15. 23:09 Eye Response: spontaneous(4). Verbal Response: oriented(5). Motor Response: obeys tl2 commands(6). Total: 15. Trauma Score (Adult): 22:11 Eye Response: spontaneous(1); Verbal Response: oriented(1); Motor Response: obeys tl2 commands(2); Systolic BP: > 89 mm Hg(4); Respiratory Rate: 10 to 29 per min(4); [place] Score: 15; Trauma Score: 12 23:09 Eye Response: spontaneous(1); Verbal Response: oriented(1); Motor Response: obeys tl2 commands(2); Systolic BP: > 89 mm Hg(4); Respiratory Rate: 10 to 29 per min(4); [place] Score: 15; Trauma Score: 12 MDM: 22:02 Patient medically screened. 06/17 02:57 Differential diagnosis: closed head injury, fracture. Data reviewed: vital signs, nurses notes. Response to treatment: the patient's symptoms have markedly improved after treatment. ED course: recommended observation or transfer as lives alone, refused said he wanted to home gave risks and benefits which were understood by pt says he wants to go home and take care of his dog. 06/16 22:02 Order name: CT Head C Spine Administered Medications: No medications were administered Disposition: 06/16/18 23:23 Discharged to Home. Impression: Contusion of other part of head. - Condition is Stable. - Discharge Instructions: Head Injury, Adult. - Medication Reconciliation Form, Thank You Letter, Antibiotic Education, Prescription Opioid Use form. - Follow up: Private Physician; When: 2 - 3 days; Reason: Re-evaluation by your physician. Signatures: Dispatcher [employer] EDJada Lizarraga RN RN tl2 Wolf Gonzalez MD MD Corrections: (The following items were deleted from the chart) 06/16 23:52 23:23 06/16/2018 23:23 Discharged to Home. Impression: Contusion of other part of head. tl2 Condition is Stable. Forms are Medication Reconciliation Form, Thank You Letter, Antibiotic Education, Prescription Opioid Use. Follow up: Private Physician; When: 2 - 3 days; Reason: Re-evaluation by your physician.
--- NOTE | 2018-06-16 23:24 | ER ---
Nurse's Notes [facility] Name: Leonidas Corona Age: 78 yrs Sex: Male : 1940 Arrival Date: 06/16/2018 Time: 21:58 Bed 3 Private MD: Diagnosis: Contusion of other part of head Presentation: 06/16 21:59 Presenting complaint: Patient states: I drove home after going to a wine revue and I tl2 was walking my dog, tripped and hit the back of my head. Reports taking xarelto. Hematoma on back of head noted, no active bleeding. Care prior to arrival: IV initiated. 22 GA, in the right forearm, Glucose check: 107. Mechanism of Injury: Fall from standing position. Trauma event details: Injury occurred in the [facility]. 21:59 Acuity: EFFIE 2 tl2 21:59 Method Of Arrival: EMS: [facility] tl2 21:59 Transition of care: patient was not received from another setting of care. Onset of tl2 symptoms was June 16, 2018 at 21:20. Risk Assessment: Do you want to hurt yourself or someone else?. Initial Sepsis Screen: Does the patient meet any 2 criteria? No. Patient's initial sepsis screen is negative. Does the patient have a suspected source of infection? No. Patient's initial sepsis screen is negative. Triage Assessment: 21:59 General: see triage assessment. tl2 Trauma Activation: Physician: ED Physician; Name: Lisa; Notified At: 21:58; Arrived At: 22:00 Physician: General Surgeon; Name: ; Notified At: 21:58; Arrived At: Physician: Radiology; Name: Bing Cruz; Notified At: 21:58; Arrived At: Physician: Respiratory; Name: ; Notified At: 21:58; Arrived At: Physician: Lab; Name: ; Notified At: 21:58; Arrived At: Historical: - Allergies: 22:09 No Known Allergies; tl2 - Home Meds: 22:09 Furosemide Oral [Active]; gabapentin Oral [Active]; Crestor oral oral [Active]; Xanax tl2 Oral [Active]; Xarelto Oral [Active]; Benicar oral oral [Active]; - PMHx: 22:09 Atrial Fib; mitral valve repair; High Cholesterol; tl2 - Immunization history: Last tetanus immunization: unknown. - Social history:: Smoking status: Patient/guardian denies using tobacco. - Ebola Screening: : No symptoms or risks identified at this time. - Social history: Uses alcohol. Screenin:11 Abuse screen: Denies threats or abuse. Nutritional screening: No deficits noted. tl2 Tuberculosis screening: No symptoms or risk factors identified. Fall risk At risk due to ETOH use. 22:11 Fall Risk Fall in past 12 months (25 points). tl2 Primary Survey: 22:09 NO uncontrolled hemorrhage observed. A: The patient is alert. Airway: patent, No tl2 supplemental oxygen in use on arrival. Breathing/Chest: Respiratory pattern: regular, Respiratory effort: spontaneous, unlabored, Breath sounds: clear, bilaterally. Chest inspection: symmetrical rise and fall of the chest. Circulation: Pulses: palpable . Skin color: pink, Skin temperature: warm, dry. Disability Alert. Exposure/Environment: There is no evidence of uncontrolled external bleeding. Obvious injury(ies) are noted at this time: hematoma to right side of occipital area. 23:00 Reassessment Airway Airway Patent Breathing/Chest Respiratory pattern Regular tl2 Respiratory effort Spontaneous Unlabored Chest inspection Symmetrical Circulation Color Norris Temperature Warm Dry Disability Alert. Secondary Survey: 22:09 HEENT: Head Other hematoma right side of occipital area. Gastrointestinal: No deficits tl2 noted. : No deficits noted. Musculoskeletal: No deficits noted. Assessment: 21:59 General: Appears in no apparent distress. comfortable, Behavior is calm, cooperative, tl2 appropriate for age. Pain: Complains of pain in scalp. Neuro: Level of Consciousness is awake, alert, obeys commands, Oriented to person, place, time, situation. Cardiovascular: Denies chest pain. Respiratory: Airway is patent Respiratory effort is even, unlabored, Respiratory pattern is regular, symmetrical. GI: No signs and/or symptoms were reported involving the gastrointestinal system. : No signs and/or symptoms were reported regarding the genitourinary system. Derm: Skin is pink, warm \T\ dry. Injury Description: hematoma. 23:00 Reassessment: Patient appears in no apparent distress at this time. Patient and/or tl2 family updated on plan of care and expected duration. Pain level reassessed. Patient is alert, oriented x 3, equal unlabored respirations, skin warm/dry/pink. 23:39 Reassessment: Patient appears in no apparent distress at this time. Patient and/or tl2 family updated on plan of care and expected duration. Pain level reassessed. Patient is alert, oriented x 3, equal unlabored respirations, skin warm/dry/pink. pt ambulatory without assistance, stated he would take a taxi home. Vital Signs: 22:11 BP 144 / 86; Pulse 98; Resp 18; Temp 97.6(O); Pulse Ox 95% on R/A; Weight 86.18 kg; tl2 Height 5 ft. 6 in. (167.64 cm); 23:09 BP 124 / 72; Pulse 89; Resp 18; Pulse Ox 96% ; tl2 23:39 BP 124 / 72; Pulse 64; Resp 18; Temp 98(O); Pulse Ox 98% ; tl2 22:11 Body Mass Index 30.67 (86.18 kg, 167.64 cm) tl2 Verónica Coma Score: 22:11 Eye Response: spontaneous(4). Verbal Response: oriented(5). Motor Response: obeys tl2 commands(6). Total: 15. 23:09 Eye Response: spontaneous(4). Verbal Response: oriented(5). Motor Response: obeys tl2 commands(6). Total: 15. Trauma Score (Adult): 22:11 Eye Response: spontaneous(1); Verbal Response: oriented(1); Motor Response: obeys tl2 commands(2); Systolic BP: > 89 mm Hg(4); Respiratory Rate: 10 to 29 per min(4); [place] Score: 15; Trauma Score: 12 23:09 Eye Response: spontaneous(1); Verbal Response: oriented(1); Motor Response: obeys tl2 commands(2); Systolic BP: > 89 mm Hg(4); Respiratory Rate: 10 to 29 per min(4); Edwards Score: 15; Trauma Score: 12 ED Course: 21:58 Patient arrived in ED. tl2 21:59 Wolf Gonzalez MD is Attending Physician. gs 22:03 Triage completed. tl2 22:11 Bed in low position. Call light in reach. Side rails up X2. tl2 22:11 Maintain EMS IV. Dressing intact. Good blood return noted. Site clean \T\ dry. Gauge \T\ tl 2 site: 22 g R FA. Patient maintains SpO2 saturation greater than 95% on room air. 22:11 No provider procedures requiring assistance completed. IV discontinued, intact, tl2 bleeding controlled, No redness/swelling at site. Pressure dressing applied. 22:13 Thermoregulation: warm blanket given to patient. tl2 22:14 Arm band placed on right wrist. tl2 22:34 CT Head C Spine In Process Unspecified. EDMS 23:12 Jada Zuñiga, RN is Primary Nurse. tl2 Administered Medications: No medications were administered Intake: 23:45 PO: 0ml; Total: 0ml. tl2 Outcome: 22:11 Discharged to home ambulatory. tl2 22:11 Condition: stable 22:11 Discharge instructions given to patient, Instructed on discharge instructions, follow up and referral plans. Demonstrated understanding of instructions, follow-up care. 23:23 Discharge ordered by . gs 23:45 Patient's length of stay was not longer than 2 hours. tl2 23:52 Patient left the ED. tl2 Signatures: Dispatcher [employer] EDMO Jada Zuñiga RN RN tl2 Wolf Gonzalez MD MD
[2018-06-17 00:43] VITALS: BP 124/72
[2018-06-17 00:45] VITALS: TEMP 98; O2SAT 98
--- NOTE | 2018-06-17 12:44 | RAD REPORT ---
EXAM DESCRIPTION: CT - Head C Spine Mpr Wo Con - 06/16/2018 10:34 pm CLINICAL HISTORY: 78 years Male, SMASH INJURY COMPARISON: None. TECHNIQUE: Images were obtained in axial, sagittal, and coronal planes. This exam was performed according to our departmental dose-optimization program which includes use of Automated Exposure Control, adjustment of the mA and/or kV according to patient size and/or use of iterative reconstruction technique. FINDINGS: CT brain; Ventricular system is mildly enlarged. Moderate prominence of the cortical sulci. No abnormal areas of increased or decreased attenuation are seen involving the brain parenchyma. No extra-axial fluid collections noted. No evidence for skull fracture. Scalp soft tissue swelling with hematoma posteriorly on the right. Mild mucosal thickening mastoid air cells bilaterally. Unremarkable paranasal sinuses. CT Cervical spine. Height of the vertebral bodies is intact. Satisfactory alignment articular facets. Reversal normal cervical lordosis indicating muscle spasm. Intact odontoid and predental space. Prevertebral soft tissues appear normal. 2 mm anterior subluxation C3 with relationship to C3 likely degenerative in nature. Intervertebral disc space narrowing multiple levels. Marked anterior osteophyte formation C2-3, C4-5 , C5-6 and C6-7 levels. Additional marginal spur formation with neural foraminal narrowing bilaterally. Intact ring C1. Posterior elements intact all levels. No abnormality lung apices bilaterally. IMPRESSION: No acute intracranial abnormality. No evidence for hemorrhage, mass lesion, or large acute infarction. Age-appropriate changes. No acute fracture seen. Marked multilevel osteoarthritic change. Findings indicating muscle spasm. Electronically signed by: Korina Romano MD 06/16/2018 10:43 PM CDT Due to temporary technical issues with the PACS/Fluency reporting system, reports are being signed by the in house radiologist as a courtesy to ensure prompt reporting. The interpreting radiologist is fully responsible for the content of the report. NORRIS
== END 2018-06-16 23:52 | disposition home or self-care (01) ==
LOC: ER 21:55
DX: S00.83XA Contusion of other part of head, initial encounter (principal); W19.XXXA Unspecified fall, initial encounter; Y93.01 Activity, walking, marching and hiking; Y92.9 Unspecified place or not applicable; Z79.01 Long term (current) use of anticoagulants; E78.00 Pure hypercholesterolemia, unspecified; I48.91 Unspecified atrial fibrillation
CPT/HCPCS: 70450; 72125; 99284

== ENCOUNTER 2018-07-05 12:22 | Inpatient (IN) | payer OTHER ==
--- NOTE | 2018-07-05 14:12 | R.PREADM ---
SCREENING DATE AND TIME 07/05/2018 12:26 (CDT) ANTICIPATED REHAB ADMISSION DATE 07/07/[address] [facility] REFERRAL DATE AND TIME 07/05/2018 12:26 (CDT) REFERRAL ROOM# J542 ACUTE ADMIT DATE 06/25/2018 Previous Rehabilitation(s): No. 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 Abdirahman Zepeda M.D. MR# [id number] [id number] NAME PRICE CORONA ADDRESS [address] [place] [address] BRANDON SIMS PHONE ZIP [address] DATE OF 1940 AGE 78 SSN# [id number] GENDER male MARITAL STATUS RACE white ADMIT FROM 02 - [facility] PRE-HOSPITAL LIVING SETTING 01 - Home (private home/apt. board/care, assisted living, care home, transitional living) HOME TYPE AND DETAILS Type of home: single family house # of levels in the residence: 1 # of steps to enter the residence: 1 # of steps within the residence: 2 PRE-HOSPITAL LIVING WITH Alone FAMILY SUPPORT Yes PRIMARY FAMILY CONTACT NAME Raudel Corona PRIMARY FAMILY CONTACT PHONE PRIMARY FAMILY CONTACT RELATIONSHIP Son PHONE PRIMARY FAMILY CONTACT ON ADM.? no IS PRIMARY FAMILY CONTACT AUTH. REP.? no 1ST EMERGENCY CONTACT Raudel Corona 1ST CONTACT PHONE 1ST CONTACT RELATIONSHIP Son PHONE 1ST CONTACT ON ADM. no IS 1ST CONTACT AUTH. REP.? no PHONE 2ND CONTACT ON ADM.? no PATIENT EMPLOYMENT STATUS Retired (for age) PATIENT EMPLOYER No Employer PAYOR INFORMATION: 1ST PAYOR NAME Emmy BARBOSA 1ST PAYOR PHONE 1ST PAYOR POLICY ID [id number] INJURY/ILLNESS DUE TO ACCIDENT? No ANOTHER [employer] RESPONSIBLE? No PRIMARY REHAB/ACUTE DIAGNOSIS: Right MCA ONSET DATE 06/25/2018 REHAB IMPAIRMENT CATEGORY (ODIN): 01 Stroke (STR) MEETS 60% rule AFFECTED EXTREMITIES: LLE, and LUE PRIMARY DIAGNOSIS-RELATED SURGERIES: Thrombectomy COMORBID REHAB/ACUTE DIAGNOSES: - N/A Atrial Fibrillation HTN HLD INTERVENTIONS: - Atrial Fibrillation Anticoagulation Medications VS RISK FOR COMPLICATIONS: - Atrial Fibrillation CVA Heart failure Limb embolus SUMMARY OF ACUTE HOSPITALIZATION: Pt. is a 78 yo Right-handed white male. On 06/25/2018 Pt. presented to [facility] with sudden onset of left-side weakness. On 06/25/2018 he was admitted to [facility] with diagnosis Right MCA. His impairment category is Stroke 01 - Left Body (Right Brain) (01.1). Pre-morbidly, Pt. was independent/mod-I in Self-Care, Sphincter Control, Transfers Control, Locomotio n, Communication, and Social Cognition; and he had good Sphincter Control. Currently, he has deficits of Self-Care, Transfers Control, Locomotion, Communication, Social Cogniti on, Endurance, Balance, and Safety Awareness. Pt. is now referred to [facility] for acute in-patient rehabilitation in order to maximize patient's functional independence in activities of daily living, strength, ROM, and mobi lity. Patient has realistic goal of being discharged at assistance level 6-Maria E to reside at Home with Fam linda/Relatives. Price Corona is a 78 year old male that lives alone in a single inez house with 1 step to enter and 1-2 steps all over his home. Patient is independent without assistive device and can still drive. 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 He is now medically stable but in need of 24-hour nursing, doctor supervision and oversite while receiving The patient is reasonably expected to participate in 3hours of therapy a day/15 hours per week and receive care with an intensive interdisciplinary approach. PAST MEDICAL HISTORY Atrial Fibrillation HLD HTN PAST SURGICAL HISTORY: Mitral Valve repair MEDICATION ALLERGIES: No Known Drug Allergies (NKDA) ENVIRONMENTAL ALLERGIES: None Known - Substance Allergies None Known - Other Allergies None Known CODE STATUS: Full code WEIGHT/HEIGHT/BMI: WEIGHT 225 lbs HEIGHT 5' 9" BMI 33.2 DIET: - Diet Type Regular - Diet - Solid Texture Mechanical Soft (Ground) - Diet - Liquid Texture Thin - Tube Feed N/A REVIEW OF SYSTEMS: - Gen Alert and awake Lying in bed No apparent distress Oriented to: person, time, and place - Vital Signs Temperature: 97.4 F SBP/DBP: 149/68 Pulse: 96 Resp: 18 Vital signs stable, afebrile - CVS RRR VITAL SIGNS Temperature: 97.4 F SBP/DBP: 149/68 Pulse: 96 Resp: 18 Vital signs stable, afebrile CURRENT SPHINCTER CONTROL: Pre-hospital bladder status: continent # of bladder accidents in the last 7 days prior to screenin Pre-hospital bowel status: continent # of bowel accidents in the last 7 days prior to screenin Last Bowel Movement Date: DETAILED CURRENT FUNCTIONAL STATUS: - Bladder accident frequency: Ind - No accidents in the past 7 days - Bowel accident frequency: Ind - No accidents in the past 7 days - Walking score based on distance walked: 0(N/A) - Wheelchair score based on distance traveled: 0(N/A) FUNCTIONAL STATUS: - Self-Care A. Eating Ind sup B. Grooming Ind Anil C. Bathing Ind maxA D. Dressing - Upper Ind Anil E. Dressing - Lower Ind maxA F. Toileting Ind maxA - Sphincter Control G: Bladder control Ind Ind H: Bowel control Ind Ind - Transfers Control I. Bed/Chair/Wheelchair Ind maxA J. Toilet Ind maxA K. Tub/Shower Ind ADNO - Locomotion L. Walk/Wheelchair (C) Ind Dep L. Walk/Wheelchair (W) Ind Dep M. Stairs Ind ADNO - Communication N. Comprehension (B) Ind Anil O. Expression (B) Ind Anil - Social Cognition P. Social Interaction Ind Anil Q. Problem Solving Ind Anil R. Memory Ind Anil - Endurance Fair - Balance Poor - Safety Awareness Fair CURRENT FUNC. DEFICITS: Self-Care, Transfers Control, Locomotion, Communication, Social Cognition, Endurance, Balance, and Sa fety Awareness THERAPY NOTES FROM ACUTE CARE: Attached. SPECIAL NEEDS: - Safety Concerns Skin breakdown precautions needed due to skin breakdown risk PATIENT NEEDS ACTIVE AND ONGOING THERAPEUTIC INTERVENTION OF MULTIPLE THERAPY DISCIPLINES, INCLUDING: - Occupational Therapy Evaluate and Treat. Visual Perceptual Training. Cognitive Retraining. - Speech Therapy Cognitive Training. Memory Strategies. Expressive Language Skills. Speech Intelligibility Training. R eceptive Language Skills. Dysphagia Therapy. - Physical Therapy Evaluate and Treat. PATIENT NEEDS CLOSE MEDICAL SUPERVISION BY A REHABILITATION PHYSICIAN FOR: Bowel and Bladder Management Coordination of Treatment Team Medical and Co-Morbidity Management PATIENT REQUIRES 24X7 REHAB NURSING FOR MEDICAL AND FUNCTIONAL MGT. OF THE FOLLOWING DEFICITS: ADL's Ambulation Bowel and Bladder Management Cognition Communication Disease Management Medication Management Patient/Family Education Providing Safe Environment Transfers Pain Management DVT Management PATIENT REQUIRES INTENSIVE, COORDINATED INTERDISCIPLINARY APPROACH TO REHAB: Arranging Home Equipment/Services Discharge Planning Family Intervention/Training Manager Shell/Case Management PATIENT REHAB POTENTIAL: Expected level of measurable improvement will be of a practical value to patient's functional capacit y or adaptations to impairments Has a viable Discharge Plan Medically appropriate; condition is sufficiently stable to participate in intensive rehab program Patient is able and expected to receive 3 hours of individualized therapy daily on at least 5 of ever y 7 days Patient's prognosis for significant practical improvement within a reasonable period of time appears Good DISCHARGE PLAN: - Estimated Length of Stay (days) 17. - Consensus on plan Discharge plan has been discussed with primary caregiver. Patient/Family is in agreement with the denis n. Primary caregiver is in agreement with the plan. - Patient/Family Goals Return home with assistance. - Planned Living Setting Upon Discharge Home, to live with Family/Relatives. Transitional Living. Primary caregiver: Pt self. RECOMMENDED CARE LEVEL: IRF RECOMMENDATION DETAILS: Recommended Admission to Comprehensive Rehabilitation Program to Increase Functional Honor SCREENER'S COMPLETENESS CONFIRMATION: - Screening Confirmation The patient data collection on this preadmission screening form is finished PHYSICIANS REVIEW AND ADMISSION DETERMINATION Admit - Based on my review of the Pre-Admission Screening results, in my medical judgment and experie nce, I concur with the findings and recommend admission to [facility], as this patient requires an IRF level of care. SIGNATURE PANEL: Clinical Liaison - [electronically] signed by Chinyere Leahy on 07/05/2018 at 13:10 (CDT) Physician Reviewer - [electronically] signed by Dr. Abdirahman Zepeda M.D. on 07/05/2018 at 14:12 (CDT )
--- OUTSIDE RECORDS SUMMARY | 2018-07-05 18:35 | XMS REPORT ---
[...] End Status Dosage System Date Date Flecainide [facility] 36408518158 50 MG Orally September 08, Active as directed Acetate 2017 Benicar [facility] 32810126954 20 MG Orally September 08, Active 1 tablet Once a day 2017 Xanax [facility] 96319071525 0.5 MG Orally September 08, Active 1 tablet Twice a day 2017 Xarelto [facility] 88455877722 10 MG Orally September 08, Active 1 tablet Once a day 2018 with food Metformin HCl ND 29245733881 500 MG Orally September 08, Active 1 tablet Once a day 2017 with a meal Crestor [facility] 42791046687 10 MG Orally September 08, Active 1 tablet Once a day 2018 Results No Known Results Summary Purpose eClinicalWorks Submission
--- OUTSIDE RECORDS SUMMARY | 2018-07-05 18:35 | XMS REPORT | Clinical Summary ---
:1940 Author Organization [facility] Address [address] [place] [address] Care Team Providers Name Role Phone Kerwin [...] INFLUENZA VACCINE 11/09/2017 Results Not on fileafter 07/04/2017 Insurance Payer Benefit Plan / Subscriber ID Type Phone Address Group [employer] - MEDICARE [employer] MEDICARE HMO xxxxxxxx [phone] [address] [employer] POS [facility] [address] [address] (Home) [place] [address]
--- OUTSIDE RECORDS SUMMARY | 2018-07-05 18:36 | XMS REPORT ---
[...] End Status Dosage System Date Date Crestor [facility] 40554816599 10 MG Orally September 08, Active 1 tablet Once a day 2017 Xanax [facility] 13782840082 0.5 MG Orally September 08, Active 1 tablet Twice a day 2017 Metformin HCl ND 88915314834 500 MG Orally September 08, Active 1 tablet Once a day 2018 with a meal Benicar [facility] 13585334976 20 MG Orally September 08, Active 1 tablet Once a day 2017 Flecainide ND 77174925573 50 MG Orally September 08, Active as directed Acetate 2018 Xarelto ND 31997081819 10 MG Orally September 08, Active 1 tablet Once a day 2018 with food Results No Known Results Summary Purpose eClinicalWorks Submission
[2018-07-05] MEDS ORDERED: GABAPENTIN 300 MG CAP PO PRN (19:42)
[2018-07-05] MEDS: FLECAINIDE 100 MG TAB PO SCH (20:00)
[2018-07-05] MEDS: ATORVASTATIN 10 MG TAB PO SCH (20:27)
[2018-07-05] MEDS: GABAPENTIN 300 MG CAP PO SCH (20:27)
[2018-07-05] MEDS: DOCUSATE NA/SENNA CONC 1 TAB PO SCH (20:27)
[2018-07-05] MEDS: ACETAMINOPHEN 500 MG TAB PO PRN (20:27)
[2018-07-05] MEDS: APIXABAN 2.5 MG TABLET PO SCH (20:27)
[2018-07-05] MEDS: MELATONIN 3 MG TABLET PO PRN (20:29)
--- NOTE | 2018-07-06 02:30 | FAST ---
SHIFT START DATE/TIME: 07/05/2018 19:00 (CDT) SHIFT END DATE/TIME: 07/06/2018 07:00 (CDT) NAME PRICE ROGERS DATE OF : 1940 DATE OF ADMISSION: 07/05/2018 18:33 (CDT) PHONE: AGE: 78 N# [id number] GENDER: Male ENCOUNTER PHYSICIAN: Dr. Abdirahman Zepeda M.D. 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 EATING: Activity did not occur on this shift EATING - SCORE: 0-UNK GROOMING: Activity did not occur on this shift GROOMING - SCORE: 0-UNK BATHING: Activity did not occur on this shift BATHING - SCORE: 0-UNK DRESSING - UPPER BODY: Patient is not dressing in public clothing ARTICLES SCORE Total number of steps: 0 DRESSING - UPPER BODY - SCORE: 0-UNK DRESSING - LOWER BODY: Patient is not dressing in public clothing ARTICLES SCORE Total number of steps: 0 DRESSING - LOWER BODY - SCORE: 0-UNK TOILETING: Activity did not occur on this shift TOILETING - SCORE: 0-UNK BLADDER MANAGEMENT: [place] cares for padron catheter including emptying drainage bag. BLADDER MANAGEMENT - SCORE: 1-DEP BOWEL MANAGEMENT: Patient depends entirely on [place] when using bedpan [helper rolls patient onto side / side-lying pos ition; positions bedpan; assists patient to roll onto bedpan; holds bedpan in place; assists patient off bedpan]. BOWEL MANAGEMENT - SCORE: 1-DEP TRANSFERS: BED, CHAIR, WHEELCHAIR: Activity did not occur on this shift TRANSFERS: BED, CHAIR, WHEELCHAIR - SCORE: 0-UNK TRANSFERS: TOILET: Activity did not occur on this shift TRANSFERS: TOILET - SCORE: 0-UNK TRANSFERS: SHOWER: Activity did not occur on this shift TRANSFERS: SHOWER - SCORE: 0-UNK TRANSFERS: TUB: Activity did not occur on this shift TRANSFERS: TUB - SCORE: 0-UNK LOCOMOTION: WALK: Activity did not occur on this shift LOCOMOTION: WALK - SCORE: 0-UNK LOCOMOTION: WHEELCHAIR: Activity did not occur on this shift LOCOMOTION: WHEELCHAIR - SCORE: 0-UNK COMPREHENSION: COMPREHENSION: TYPE: Both COMPREHENSION - STEP 1: Does the patient require help from a person or device, or need extra time to understand complex and a bstract ideas (such as current events, finances, discharge planning, medical issues, relationships, e tc)? No. COMPREHENSION - STEP 2: Does the patient need extra time, require an assistive device (such as glasses for visual comprehensi on or a hearing aid for auditory comprehension) or does s/he have mild difficulty understanding compl ex and abstract information? Yes. COMPREHENSION - SCORE: 6-SILVESTRE EXPRESSION EXPRESSION: TYPE: Both EXPRESSION - STEP 1: Does the patient require help from a person or device, or need extra time expressing complex and abst ract ideas (such as current events, finances, discharge planning, medical issues, relationships, etc) ? No. EXPRESSION - STEP 2: Does the patient need extra time, require an assistive device (such as augmentive communication syste m or a communication board), OR does s/he have mild difficulty expressing complex and abstract ideas (including mild dysarthria or mild word-find problems)? No. EXPRESSION - SCORE: 7-IND SOCIAL INTERACTION: SOCIAL INTERACTION - STEP 1: Does the patient require a helper to interact with others in social and therapeutic situations? No. SOCIAL INTERACTION - STEP 2: Does the patient need extra time in social situations, OR does s/he interact with staff, other patien ts, and family members ONLY in structured environments, OR does s/he require medication for social in teraction? No. SOCIAL INTERACTION - SCORE: 7-IND PROBLEM SOLVING: PROBLEM SOLVING - STEP 1: Does the patient need help from a person or device, or need extra time to solve complex problems such as managing a checking account or confronting interpersonal problems? No. PROBLEM SOLVING - STEP 2: Does the patient require extra time to make decisions or solve problems, OR does s/he have slight dif ficulty reading, initiating, or self-correcting in unfamiliar situations? No. PROBLEM SOLVING - SCORE: 7-IND MEMORY: MEMORY - STEP 1: Does the patient need help from a person or device, or need extra time to remember frequently encount ered people, daily routines, and executing requests? No. MEMORY - STEP 2: Does the patient have slight difficulty recognizing frequently encountered people, daily routines, or executing requests without the need for repetition or using self-initiated or environmental cues to remember? No. MEMORY - SCORE: 7-IND SIGNATURE PANEL: The following modified sections: Eating - Score, Grooming - Score, Bathing - Score, Dressing - Upper Body - Score, Dressing - Lower Body - Score, Toileting - Score, Bladder Management - Score, Bowel Man agement - Score, Transfers: Bed, Chair, Wheelchair - Score, Transfers: Toilet - Score, Transfers: Melissa wer - Score, Transfers: Tub - Score, Locomotion: Walk - Score, Locomotion: Wheelchair - Score, Compre hension - Score, Expression - Score, Social Interaction - Score, Problem Solving - Score, Memory - Sc ore were [electronically] signed by Michelle Sanders CNA on ThuJul 06 2018 02:29:16 T-0500 ([place] Da ylight Time)
[2018-07-06 06:14] LABS: Absolute Lymphocytes (CBC) 1.4 K/uL (0.7-4.9); Basophils % 0.9 % (0-1.3); Hematocrit 37.9 % (39.6-49.0); Lymphocytes % 19.3 % (15.3-44.8); MPV 8.4 fL (7.6-11.3); RBC Red Blood Cell Count 4.02 M/uL (4.33-5.43)
[2018-07-06 06:56] LABS: Albumin 3.1 g/dL (3.4-5.0); Bilirubin Direct 0.2 mg/dL (0-0.2); Bilirubin Total 0.7 mg/dL (0.2-1.0); Magnesium 2.2 mg/dL (1.8-2.4); Potassium 4.1 mmol/L (3.5-5.1)
[2018-07-06] MEDS: FLECAINIDE 100 MG TAB PO SCH ×2 (08:00→19:56)
[2018-07-06] MEDS ORDERED: VALSARTAN 40 MG TAB PO SCH (08:00)
[2018-07-06] MEDS: ACETAMINOPHEN 500 MG TAB PO PRN ×3 (08:12→19:55)
[2018-07-06] MEDS: CITALOPRAM 10 MG TABLET PO SCH (08:13)
[2018-07-06] MEDS: LISINOPRIL 5 MG TAB PO SCH (08:13)
[2018-07-06] MEDS: APIXABAN 2.5 MG TABLET PO SCH ×2 (08:13→19:55)
[2018-07-06] MEDS: FUROSEMIDE 20 MG TABLET PO SCH (08:14)
[2018-07-06] MEDS: GABAPENTIN 300 MG CAP PO SCH ×2 (08:14→19:56)
[2018-07-06] MEDS: DOCUSATE NA/SENNA CONC 1 TAB PO SCH ×2 (08:15→19:55)
[2018-07-06] MEDS: VALSARTAN 80 MG TAB PO SCH (08:15)
[2018-07-06] MEDS: ASPIRIN 81 MG CHEWABLE TABLET PO SCH (08:16)
--- NOTE | 2018-07-06 11:47 | FAST ---
ENCOUNTER DATE AND TIME: 07/06/2018 08:00 (CDT) NAME PRICE ROGERS DATE OF : 1940 DATE OF ADMISSION: 07/05/2018 18:33 (CDT) PHONE: AGE: 78 SSN# [id number] GENDER: Male ENCOUNTER PHYSICIAN: Dr. Abdirahman Zepeda M.D. 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 EATING: Activity did not occur on this shift EATING - SCORE: 0-UNK GROOMING: Activity did not occur on this shift GROOMING - SCORE: 0-UNK BATHING: Activity did not occur on this shift BATHING - SCORE: 0-UNK DRESSING - UPPER BODY: Activity did not occur on this shift Patient is not dressing in public clothing ARTICLES SCORE Total number of steps: 0 DRESSING - UPPER BODY - SCORE: 0-UNK DRESSING - LOWER BODY: Activity did not occur on this shift Patient is not dressing in public clothing ARTICLES SCORE Total number of steps: 0 DRESSING - LOWER BODY - SCORE: 0-UNK TOILETING: Activity did not occur on this shift TOILETING - SCORE: 0-UNK BLADDER MANAGEMENT: Activity did not occur on this shift BLADDER MANAGEMENT - SCORE: 7-IND BOWEL MANAGEMENT: Activity did not occur on this shift BOWEL MANAGEMENT - SCORE: 7-IND TRANSFERS: BED, CHAIR, WHEELCHAIR: Patient requires more than one helper and/or the use of a mechanical lift is utilized TRANSFERS: BED, CHAIR, WHEELCHAIR - SCORE: 1-DEP TRANSFERS: TOILET: Patient requires more than one helper and/or the use of a mechanical lift is utilized TRANSFERS: TOILET - SCORE: 1-DEP TRANSFERS: SHOWER: Activity did not occur on this shift TRANSFERS: SHOWER - SCORE: 0-UNK TRANSFERS: TUB: Activity did not occur on this shift TRANSFERS: TUB - SCORE: 0-UNK LOCOMOTION: WALK: Activity did not occur on this shift LOCOMOTION: WALK - SCORE: 0-UNK LOCOMOTION: STAIRS: Activity did not occur on this shift LOCOMOTION: STAIRS - SCORE: 0-UNK COMPREHENSION: COMPREHENSION - SCORE: 0-UNK EXPRESSION EXPRESSION - SCORE: 0-UNK SOCIAL INTERACTION: SOCIAL INTERACTION - SCORE: 0-UNK PROBLEM SOLVING: PROBLEM SOLVING - SCORE: 0-UNK MEMORY: MEMORY - SCORE: 0-UNK SIGNATURE PANEL: The following modified sections: Transfers: Bed, Chair, Wheelchair - Score, Transfers: Toilet - Score , Locomotion: Walk - Score, Locomotion: Wheelchair - Score, Locomotion: Stairs - Score were [electron daphney] signed by Skip Phillips PT on ThuJul 06 2018 11:46:35 GMT-0500 (Central Daylight Time)
--- NOTE | 2018-07-06 13:05 | FAST ---
ENCOUNTER DATE AND TIME: 07/06/2018 08:00 (CDT) NAME PRICE ROGERS DATE OF : 1940 DATE OF ADMISSION: 07/05/2018 18:33 (CDT) PHONE: AGE: 78 SSN# [id number] GENDER: Male ENCOUNTER PHYSICIAN: Dr. Abdirahman Zepeda M.D. 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 EATING: Activity did not occur on this shift EATING - SCORE: 0-UNK GROOMING: Comb/brush hair Wash, rinse, and dry face Wash, rinse, and dry hands GROOMING - STEP 1: Does the patient require the assistance of a person or device, or need extra time when grooming? Yes. GROOMING - STEP 2: Does the patient require the assistance of a helper? Yes. GROOMING - STEP 3: How much assistance does the patient require from the helper? More than incidental help GROOMING - STEP 4: How many grooming tasks does the patient perform WITHOUT the assistance of the helper? Less than half of the grooming tasks GROOMING - SCORE: 2-MAX BATHING: Abdomen Buttocks Chest Left arm Left lower leg and foot Left upper leg Perineal area Right arm Right lower leg and foot Right upper leg BATHING - STEP 1: Does the patient require the assistance of a person or device, or need extra time when bathing? Yes. BATHING - STEP 2: Does the patient require the assistance of a helper? Yes. BATHING - STEP 3: How much assistance does the patient require from the helper? More than just incidental help BATHING - STEP 4: What percent of the body parts did the patient bathe WITHOUT the helper? None. All work was performed by the helper BATHING - SCORE: 1-DEP DRESSING - UPPER BODY: T-shirt/pullover shirt (four steps) ARTICLES SCORE Total number of steps: 4 DRESSING - UPPER BODY - STEP 1: Does the patient require help from a person or device, or need extra time when dressing above the [address]? Yes. DRESSING - UPPER BODY - STEP 2: Does the patient require the assistance of a helper? Yes. DRESSING - UPPER BODY - STEP 3: Does the helper touch the patient while dressing? Yes. DRESSING - UPPER BODY - STEP 4: How many of the total steps does the patient complete on his/her own? 0 DRESSING - UPPER BODY - STEP 5: Does Patient require total assistance for dressing above the waist such as the helper holding clothin g and performing basically all the activities? Yes. DRESSING - UPPER BODY - SCORE: 1-DEP DRESSING - LOWER BODY: Elastic waist pants (three steps) Tied or buckled shoe - Left foot (two steps) Tied or buckled shoe - Right foot (two steps) Underwear (three steps) ARTICLES SCORE Total number of steps: 10 DRESSING - LOWER BODY - STEP 1: Does the patient require help from a person or device, or need extra time when dressing below the [address]? Yes. DRESSING - LOWER BODY - STEP 2: Does the patient require the assistance of a helper? Yes. DRESSING - LOWER BODY - STEP 3: Does the helper touch the patient while dressing? Yes. DRESSING - LOWER BODY - STEP 4: How many of the total steps does the patient complete on his/her own? 0 DRESSING - LOWER BODY - STEP 5: Does patient require total assistance for dressing below the waist such as the helper holding clothin g and performing basically all the activities? Yes. DRESSING - LOWER BODY - SCORE: 1-DEP TOILETING: Activity did not occur on this shift TOILETING - SCORE: 0-UNK BLADDER MANAGEMENT: Activity did not occur on this shift BLADDER MANAGEMENT - SCORE: 7-IND BOWEL MANAGEMENT: Activity did not occur on this shift BOWEL MANAGEMENT - SCORE: 7-IND TRANSFERS: BED, CHAIR, WHEELCHAIR: Activity did not occur on this shift TRANSFERS: BED, CHAIR, WHEELCHAIR - SCORE: 0-UNK TRANSFERS: TOILET: Activity did not occur on this shift TRANSFERS: TOILET - SCORE: 0-UNK TRANSFERS: SHOWER: More than one helper is required for shower transfer TRANSFERS: SHOWER - SCORE: 1-DEP TRANSFERS: TUB: Activity did not occur on this shift TRANSFERS: TUB - SCORE: 0-UNK LOCOMOTION: WALK: Activity did not occur on this shift LOCOMOTION: WALK - SCORE: 0-UNK LOCOMOTION: WHEELCHAIR: Activity did not occur on this shift LOCOMOTION: WHEELCHAIR - SCORE: 0-UNK LOCOMOTION: STAIRS: Activity did not occur on this shift LOCOMOTION: STAIRS - SCORE: 0-UNK COMPREHENSION: COMPREHENSION: TYPE: Both COMPREHENSION - STEP 1: Does the patient require help from a person or device, or need extra time to understand complex and a bstract ideas (such as current events, finances, discharge planning, medical issues, relationships, e tc)? Yes. COMPREHENSION - STEP 2: Does the patient require help to understand questions or statements about basic needs or ideas (such as hunger, thirst, sleep, safety, daily schedule, room location, or discomfort) half or more of the t aneudy? No. COMPREHENSION - STEP 3: How often does the patient need help to understand directions and conversation about basic needs? 25% - 49% of the time COMPREHENSION - SCORE: 3-MOD EXPRESSION EXPRESSION: TYPE: Both EXPRESSION - STEP 1: Does the patient require help from a person or device, or need extra time expressing complex and abst ract ideas (such as current events, finances, discharge planning, medical issues, relationships, etc) ? Yes. EXPRESSION - STEP 2: Does the patient require help to express basic necessities or ideas (such as hunger, thirst, sleep, s afety, daily schedule, room location, or discomfort) half or more of the time? No. EXPRESSION - STEP 3: How often does the patient need help to express directions and conversation about basic needs? 25-49% of the time EXPRESSION - SCORE: 3-MOD SOCIAL INTERACTION: SOCIAL INTERACTION - STEP 1: Does the patient require a helper to interact with others in social and therapeutic situations? Yes. SOCIAL INTERACTION - STEP 2: Does the patient interact appropriately half or more of the time? Yes. SOCIAL INTERACTION - STEP 3: How often does the patient need help to interact appropriately? Less than 10% of the time SOCIAL INTERACTION - SCORE: 5-SUP PROBLEM SOLVING: PROBLEM SOLVING - STEP 1: Does the patient need help from a person or device, or need extra time to solve complex problems such as managing a checking account or confronting interpersonal problems? Yes. PROBLEM SOLVING - STEP 2: Does the patient solve basic routine problems half or more of the time? Yes. PROBLEM SOLVING - STEP 3: How often does the patient need help to solve basic routine problems? 25%-49% of the time PROBLEM SOLVING - SCORE: 3-MOD MEMORY: MEMORY - STEP 1: Does the patient need help from a person or device, or need extra time to remember frequently encount ered people, daily routines, and executing requests? Yes. MEMORY - STEP 2: How often does the patient need help to remember frequently encountered people, daily routines, and e xecuting requests? 25% - 49% of the time MEMORY - SCORE: 3-MOD SIGNATURE PANEL: The following modified sections: Eating - Score, Grooming - Score, Bathing - Score, Dressing - Upper Body - Score, Dressing - Lower Body - Score, Toileting - Score, Transfers: Bed, Chair, Wheelchair - S core, Transfers: Toilet - Score, Transfers: Tub - Score, Transfers: Shower - Score, Comprehension - S core, Expression - Score, Social Interaction - Score, Problem Solving - Score, Memory - Score were [e lectronically] signed by Shanti Moreno OT on ThuJul 06 2018 13:04:57 T-0500 ([place] Daylight T aneudy)
--- NOTE | 2018-07-06 14:13 | RAD REPORT ---
EXAM DESCRIPTION: RAD - Knee Left 3 View - 07/06/2018 2:03 pm CLINICAL HISTORY: Fall, knee pain COMPARISON: None. FINDINGS: No fracture, dislocation or periosteal reaction.Minimal joint effusion is present. Lateral compartment narrowing is present with marginal spurring. Mild spurring along the tibial spine. No so ft tissue abnormality. IMPRESSION: Lateral compartment degenerative changes and small joint effusion. No acute bone finding . Clinical concerns for internal derangement or occult bony injury could be further assessed with MR im aging.
--- NOTE | 2018-07-06 18:07 | R.HP ---
FACILITY: [facility] ENCOUNTER DATE AND TIME: 07/06/2018 18:02 (CDT) MR#: [id number] NAME PRICE ROGERS ADDRESS: [address] [place] [address] CITY: [place] ZIP [id number] PHONE: DATE OF : 1940 AGE: 78 SSN# [id number] GENDER: Male DEXTERITY Right-handed MARITAL STATUS RACE White PRE-HOSPITAL LIVING SETTING 01 - Home (private home/apt. board/care, assisted living, care home, transitional living) PRE-HOSPITAL LIVING WITH Alone ENCOUNTER PHYSICIAN: Dr. Abdirahman Zepeda M.D. REFERRING DOCTOR: renuka Sommers DATE OF ADMISSION: 07/05/2018 18:33 (CDT) REFERRING FACILITY [facility] HOME TYPE AND DETAILS: Type of home: single family house # of levels in the residence: 1 # of steps to enter the residence: 1 # of steps within the residence: 2 ADMISSION DIAGNOSIS: Right MCA ONSET DATE: 06/25/2018 PRIMARY DIAGNOSIS-RELATED SURGERIES: Thrombectomy SECONDARY/COMORBID DIAGNOSES (TIERED): - N/A Atrial Fibrillation HTN HLD HISTORY OF PRESENT ILLNESS (HPI): Pt. is a 78 yo Right-handed white male. On 06/25/2018 Pt. presented to [facility] with sudden onset of left-side weakness. On 06/25/2018 he was admitted to [facility] with diagnosis Right MCA. His impairment category is Stroke 01 - Left Body (Right Brain) (01.1). Pre-morbidly, Pt. was independent/mod-I in Self-Care, Sphincter Control, Transfers Control, Locomotio n, Communication, and Social Cognition; and he had good Sphincter Control. Currently, he has deficits of Self-Care, Transfers Control, Locomotion, Communication, Social Cogniti on, Endurance, Balance, and Safety Awareness. Pt. is now referred to [facility] for acute in-patient rehabilitation in order to maximize patient's functional independence in activities of daily living, strength, ROM, and mobi lity. Patient has realistic goal of being discharged at assistance level 6-Maria E to reside at Home with Fam linda/Relatives. Price Rogers is a 78 year old male that lives alone in a single inez house with 1 step to enter and 1-2 steps all over his home. Patient is independent without assistive device and can still drive. 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 He is now medically stable but in need of 24-hour nursing, doctor supervision and oversite while receiving The patient is reasonably expected to participate in 3hours of therapy a day/15 hours per week and receive care with an intensive interdisciplinary approach. MEDICATION ALLERGIES: No Known Drug Allergies (NKDA) ENVIRONMENTAL ALLERGIES: None Known - Substance Allergies None Known - Other Allergies None Known PAST MEDICAL HISTORY: Atrial Fibrillation HLD HTN PAST SURGICAL HISTORY: Mitral Valve repair FAMILY HISTORY: Family history is not contributory. SOCIAL HISTORY: - Home Living Alone REVIEW OF SYSTEMS: - Gen No Chills Fatigue No Fever - Eyes No Double Vision No itchiness - ENMT Difficulty Swallowing - CVS No Chest Discomfort No Chest Pain Fatigue No Weight Gain - Resp No Cough No Shortness of Breath - GI Continent No Abdominal Pain No Constipation No Diarrhea - Continent No Kidney Pain No Painful Urination No Urinary Urgency - MSK No Joint Pain Muscle Cramps Stiffness - Skin No Itching No Rash No Suspicious Lesions - Neuro Coordination Difficulty Difficulty with Concentration No Memory Loss No Seizures Weakness - Psych No Anxiety No Depression No HIV Exposure No Persistent Infections No Seasonal Allergies - Endo No Cold/Heat Intolerance No Excessive Hunger No Excessive Thirst No Excessive Urination PHYSICAL EXAM - Gen Alert and awake Lying in bed No apparent distress Oriented to: person, time, and place - Skin No beakdown No abnormalities - Eyes No abnormalities - ENMT No abnormalities - Neck No abnormalities - CVS RRR - Chest No abnormalities - Resp Clear to auscultation - Abd + bowel sounds - GI nondistended Deferred - No abnormalities - Ext Mild left lower extremity edema. - MSK 0/5 strength in the left upper extremity and 2+/5 weakness in left lower extremity. - Neuro 0/5 strength in the left upper extremity and 2+/5 weakness in left lower extremity. - Psych No abnormalities VITAL SIGNS Temperature: 97.4 F SBP/DBP: 132/82 Pulse: 75 Resp: 16 NURSING: - Shower allowing shower - Bladder care per protocol - Skin care per protocol PRECAUTIONS: - Weight Bearing Precaution WBAT left LE ACTIVITIES OOB only with supervision FUNCTIONAL STATUS: - Self-Care A. Eating Ind sup B. Grooming Ind Anil C. Bathing Ind maxA D. Dressing - Upper Ind Anil E. Dressing - Lower Ind maxA F. Toileting Ind maxA - Sphincter Control G: Bladder control Ind Ind H: Bowel control Ind Ind - Transfers Control I. Bed/Chair/Wheelchair Ind maxA J. Toilet Ind maxA K. Tub/Shower Ind ADNO - Locomotion L. Walk/Wheelchair (C) Ind Dep L. Walk/Wheelchair (W) Ind Dep M. Stairs Ind ADNO - Communication N. Comprehension (B) Ind Anil O. Expression (B) Ind Anil - Social Cognition P. Social Interaction Ind Anil Q. Problem Solving Ind Anil R. Memory Ind Anil - Endurance Fair - Balance Poor - Safety Awareness Fair CURRENT FUNC. DEFICITS: Self-Care, Transfers Control, Locomotion, Communication, Social Cognition, Endurance, Balance, and Sa fety Awareness ASSESSMENT: Pt. is a 78 yo Right-handed white male.On 06/25/2018 Pt. presented to [facility] with sudden on set of left-side weakness.On 06/25/2018 he was admitted to [facility] with diagnosis Right MCA. His impairment category is Stroke 01 - Left Body (Right Brain) (01.1).Pre-morbidly, Pt. was independ ent/mod-I in Self-Care, Sphincter Control, Transfers Control, Locomotion, Communication, and Social C ognition; and he had good Sphincter Control.Currently, he has deficits of Self-Care, Transfers Contro l, Locomotion, Communication, Social Cognition, Endurance, Balance, and Safety Awareness.Pt. is now r eferred to [facility] for acute in-patient rehabilitation in order to maximize patient's functional independence in activities of daily living, strength, ROM, and mobility.- Rehab Goal Patient has realistic goal of being discharged at assistance level 6-Maria E to reside at Home with Fam linda/Relatives. Price Rogers is a 78 year old male that lives alone in a single inez house with 1 step to enter and 1-2 steps all over his home. Patient is independent without assistive device and can still drive. 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 He is now medically stable but in need of 24-hour nursing, doctor supervision and oversite while receiving The patient is reasonably expected to participate in 3hours of therapy a day/15 hours per week and receive care with an intensive interdisciplinary approach.REHAB PLAN: for Dementia, TBI, Stroke, or others - Physical Therapy Gait dysfunction - to improve, our physical therapists will perform initial evaluation of pt's status upon admission and devise an individualized program for Gait Training, and Wheel Chair mobility Inability to transfer - to improve, our physical therapists will perform initial evaluation of pt's s tatus upon admission and devise an individualized program for Bed mobility Need for home safety evaluation - to improve, our physical therapists will perform initial evaluation of pt's status upon admission and devise an individualized program for Home Evaluation Need in caregiver upon discharge - to improve, our physical therapists will perform initial evaluatio n of pt's status upon admission and devise an individualized program for Caregiver Training New precaution - to improve, our physical therapists will perform initial evaluation of pt's status u uriel admission and devise an individualized program for Patient precaution education Edema - to improve, our physical therapists will perform initial evaluation of pt's status upon admi ssion and devise an individualized program for Elevation Training, and Lymphedema Therapy Poor balance - to improve, our physical therapists will perform initial evaluation of pt's status upo n admission and devise an individualized program for Balance Training Poor endurance - to improve, our physical therapists will perform initial evaluation of pt's status u uriel admission and devise an individualized program for Endurance Training Weakness - to improve, our physical therapists will perform initial evaluation of pt's status upon ad mission and devise an individualized program for Aquatic Therapy, Neuromuscular Reeducation, and Stre ngthening Achieving independence - to improve, our physical therapists will perform initial evaluation of pt's status upon admission and devise an individualized program for Community Reintegration Activities - Occupational Therapy ADL deficits - to improve, our occupation therapists will perform initial evaluation of pt's status u uriel admission and devise an individualized program for Bathing, Bed mobility, Community Reintegration , Cooking, Dressing, Eating, Fine Motor Skills, Grooming, Homemaking, Kitchen Mobility, Laundry, Mey ent Education, Safety Awareness, Splinting - Positioning, Transfers(Toilet, Tub, Shower), and Wheel C hair Management Cognitive deficits - to improve, our occupation therapists will perform initial evaluation of pt's st atus upon admission and devise an individualized program for Cognition - orientation Need for healthcare management consultant - to improve, our occupation therapists will perform initial evaluation of pt's s tatus upon admission and devise an individualized program for Caregiver Training Weakness - to improve, our occupation therapists will perform initial evaluation of pt's status upon admission and devise an individualized program for Aquatic Therapy, Balance, Endurance, UE ROM, and U E strengthening MEDICAL PLAN: - Diet Type Start Regular - Diet - Liquid Texture Start Thin - Tube Feed Start N/A - Bladder care per protocol - Weight Bearing Precaution WBAT left LE - Skin care per protocol - Diet - Solid Texture Start Regular Start Mechanical Soft (Ground) - Shower shower DISCHARGE PLAN: - Estimated Length of Stay (days) 17. - Consensus on plan Discharge plan has been discussed with primary caregiver. Patient/Family is in agreement with the denis n. Primary caregiver is in agreement with the plan. - Patient/Family Goals Return home with assistance. - Planned Living Setting Upon Discharge Home, to live with Family/Relatives. Transitional Living. Primary caregiver: Pt self. SIGNATURE PANEL: (CDT)
--- NOTE | 2018-07-06 18:10 | PAPE ---
PATIENT: [facility] MR# [id number] REFERRING DOCTOR renuka Sommers EVALUATION DATE AND TIME 07/06/2018 18:09 (CDT) NAME PRICE ROGERS DATE OF 1940 AGE 78 PHONE SSN# [id number] GENDER male EVALUATING PHYSICIAN Dr. Abdirahman Zepeda M.D. ADMISSION DIAGNOSIS: Right MCA ONSET DATE 06/25/2018 SECONDARY/COMORBID DIAGNOSES TIERED: - N/A Atrial Fibrillation HTN HLD POST-ADMISSION FUNCTIONAL/MEDICAL STATUS: - Bladder Same accident frequency: Ind - No accidents in the past 7 days - Bowel Same accident frequency: Ind - No accidents in the past 7 days - Walking Same score based on distance walked: 0(N/A) - Wheelchair Same score based on distance traveled: 0(N/A) STATUS CHANGE EVALUATION: No change in Functional or Medical Status is identified compared with Pre-Admission screening. PATIENT NEEDS CLOSE MEDICAL SUPERVISION BY A REHABILITATION PHYSICIAN FOR: Bowel and Bladder Management Coordination of Treatment Team Medical and Co-Morbidity Management PATIENT REQUIRES 24X7 REHAB NURSING FOR MEDICAL AND FUNCTIONAL MGT. OF THE FOLLOWING DEFICITS: ADL's Ambulation Bowel and Bladder Management Cognition Communication Disease Management Medication Management Patient/Family Education Providing Safe Environment Transfers Pain Management DVT Management PATIENT REQUIRES INTENSIVE, COORDINATED INTERDISCIPLINARY APPROACH TO REHAB: Arranging Home Equipment/Services Discharge Planning Family Intervention/Training Disposal Man/Case Management LIST OF IDENTIFIED AND POTENTIAL PROBLEMS: Alteration in leisure activities Bladder, Incontinence Bowel, Incontinence Infection, Actual or Potential Mobility Impaired Pain, Alteration in Comfort Self Care Deficit Skin Integrity, Actual or Potential Urinary Tract Infection (UTI), Actual or Potential RISK FOR COMPLICATIONS - Atrial Fibrillation CVA. Heart failure. Limb embolus. INTERVENTIONS - Atrial Fibrillation Anticoagulation. Medications. VS. PATIENT COULD BE AT RISK FOR COMPLICATIONS FROM ADVERSE MEDICAL CONDITIONS DUE TO HIS/HER COMORBIDITI ES AND THE RIGORS OF THE INTENSIVE REHABILLITATION PROGRAM. METHODS OR INTERVENTIONS TO AVOID COMPLIC ATIONS INCLUDE: - Bleeding Stroke patients assessed for lethargy or change in status. - Infection Clinical staff to assess and manage the signs and symptoms of infection including fever, redness, war mth, etc. - Urinary Tract Infection - Aspiration Clinical staff will assess and manage coughing, drooling, congestion. - Falls Patient will be evaluated for Fall Precautions and will be placed on Fall Precautions as indicated pe r protocol. - Skin Breakdown Nursing will assess skin daily using assessment tool and will place on Skin Breakdown Precautions as indicated per protocol. - Pain Clinical staff may employ non-medication methods such as massage, distraction, decrease stimulus, etc . as needed. Clinical staff will assess patient's pain level every shift per protocol to assess and e nsure pain management effectiveness. Medications will be given and the pain level re-assessed. PRELIMINARY PLAN OF CARE: - Physical Therapy Patient needs Physical Therapy for a daily minimum of 1.5 hours at least 5 out of 7 days, to improve: Mobility, Strengthening, Transfers, Stretching, ROM, Endurance, Ability to manage stairs, Gait, and Balance. - Speech Therapy Patient needs Speech Therapy for a daily minimum of 0.5 hours at least 5 out of 7 days, to improve: S wallowing, Cognition, Language Skills, and Compensatory Strategies. - Rehabilitation Nursing Patient requires 24x7 Rehabilitation Nursing for: Pain Issues, Identifying and preventing risk factor s, Monitoring and reporting current medical conditions, Assisting with ambulation and transfer, Gilberto ting with all ADL-s, Teaching patients about disease process and medications, Family teaching, Provid ing safe environment, Bowel and Bladder Issues, Skin Integrity, and Medication Management. Patient needs Disposal Man and/or Case Management for: Discharge Planning, Arranging Home Equipmen t or Services, and Family Interventions. - Dietary and Nutrition Services Patient needs Dietary and Nutrition Services for: Adequate Nutrition, Nutritional Supplements, and Nu tritional Education. - Occupational Therapy Patient needs Occupational Therapy for a daily minimum of 1.5 hours at least 5 out of 7 days, to impr ove Activities of Daily Living, including: Eating, Grooming, Bathing, Dressing, Toileting, Toilet Tra nsfers, Community Reintegration, Higher functional activities, Adaptive Equipment, Splinting, Househo ld Tasks, and Other activities as determined. POTENTIAL FUNCTIONAL GOALS FOR PATIENT TO ACHIEVE BY DISCHARGE: - Safety Precaution Patient will remain free from falls or injury at time of discharge. - Bed Mobility Patient will perform bed mobility at 4-Anil level of assistance. - Transfers Patient will complete transfers from bed to chair at 4-Anil level of assistance. - Mobility Patient will ambulate 150 ft with 4-Anil level of assistance with RW. PATIENT REHAB POTENTIAL Expected level of measurable improvement will be of a practical value to patient's functional capacit y or adaptations to impairments Has a viable Discharge Plan Medically appropriate; condition is sufficiently stable to participate in intensive rehab program Patient is able and expected to receive 3 hours of individualized therapy daily on at least 5 of ever y 7 days Patient's prognosis for significant practical improvement within a reasonable period of time appears Good DISCHARGE PLAN: - Estimated Length of Stay (days) 17. - Consensus on plan Discharge plan has been discussed with primary caregiver. Patient/Family is in agreement with the denis n. Primary caregiver is in agreement with the plan. - Patient/Family Goals Return home with assistance. - Planned Living Setting Upon Discharge Home, to live with Family/Relatives. Transitional Living. Primary caregiver: Pt self. CONCLUSION ON REHABILITATION NECESSITY: I have evaluated patient's pre-admission functional status and, comparing it to the patient's post-ad mission functional status now, I conclude that the pre-admission assessment was accurate. Patient's c ondition on admission supports the medical necessity of admission to [facility]. It is safe to proceed with patient's therapy program. SIGNATURE PANEL: (CDT)
[2018-07-06] MEDS: ATORVASTATIN 10 MG TAB PO SCH (19:56)
[2018-07-06] MEDS: HYDROCODONE/APAP 5/325 MG TAB PO PRN (22:13)
[2018-07-07 00:56] LABS: Urine Appearance CLEAR; Urine Bilirubin NEGATIVE (NEG); Urine Blood NEGATIVE (NEG); Urine Color DK YELLOW; Urine Glucose NEGATIVE (NEG); Urine Protein NEGATIVE (NEG); Urine Specific Gravity 1.025 (1.005-1.030)
[2018-07-07 01:15] LABS: Urine Culture Reflex Order NOT NEEDED
[2018-07-07 01:16] LABS: Urine Bacteria <20 /HPF (NONE SEEN); Urine Mucus SLIGHT /HPF (NONE SEEN); Urine RBC <5 /HPF (NONE SEEN)
[2018-07-07] MEDS: TRAMADOL HCL 50 MG TAB PO PRN ×2 (01:45→10:41)
[2018-07-07] MEDS: HYDROCODONE/APAP 5/325 MG TAB PO PRN (04:33)
[2018-07-07] MEDS: VALSARTAN 80 MG TAB PO SCH (08:00)
[2018-07-07] MEDS: LISINOPRIL 5 MG TAB PO SCH (08:00)
[2018-07-07] MEDS: FUROSEMIDE 20 MG TABLET PO SCH (08:00)
[2018-07-07] MEDS: DOCUSATE NA/SENNA CONC 1 TAB PO SCH ×2 (08:25→20:30)
[2018-07-07] MEDS: CITALOPRAM 10 MG TABLET PO SCH (08:26)
[2018-07-07] MEDS: APIXABAN 2.5 MG TABLET PO SCH ×2 (08:26→20:29)
[2018-07-07] MEDS: FLECAINIDE 100 MG TAB PO SCH ×2 (08:26→20:30)
[2018-07-07] MEDS: GABAPENTIN 300 MG CAP PO SCH ×2 (08:26→20:30)
[2018-07-07] MEDS: ASPIRIN 81 MG CHEWABLE TABLET PO SCH (08:26)
--- NOTE | 2018-07-07 11:44 | RAD REPORT ---
EXAM DESCRIPTION: RAD - Barium Swallow Modified - 07/07/2018 11:38 am CLINICAL HISTORY: r/o aspiration Dysphagia, possible aspiration COMPARISON: No comparisons TECHNIQUE: The patient was given liquid, semi-solid and solid forms of barium. Lateral view fluorosc opic imaging was performed in conjunction with speech pathology service. FINDINGS: laryngeal pentration : cleared with thin aspiration : no cough with nectar cups other : delayed swallow onset 1-2 sec Total fluoroscopy time: 2 minutes and 18 seconds
[2018-07-07] MEDS: ATORVASTATIN 10 MG TAB PO SCH (20:30)
[2018-07-08 06:21] LABS: Absolute Lymphocytes (CBC) 1.4 K/uL (0.7-4.9); Basophils % 0.7 % (0-1.3); Hematocrit 36.7 % (39.6-49.0); MPV 8.6 fL (7.6-11.3); RBC Red Blood Cell Count 3.86 M/uL (4.33-5.43)
[2018-07-08 06:55] LABS: BUN Blood Urea Nitrogen 23 mg/dL (7-18); Bicarbonate 28 mmol/L (21-32); Glucose Level 106 mg/dL (74-106); Prealbumin 23.2 mg/dL (20-40); Sodium Level 137 mmol/L (136-145)
[2018-07-08] MEDS: TRAMADOL HCL 50 MG TAB PO PRN (07:45)
[2018-07-08] MEDS: ASPIRIN 81 MG CHEWABLE TABLET PO SCH (07:47)
[2018-07-08] MEDS: CITALOPRAM 10 MG TABLET PO SCH (07:47)
[2018-07-08] MEDS: GABAPENTIN 300 MG CAP PO SCH ×2 (07:47→21:13)
[2018-07-08] MEDS: APIXABAN 2.5 MG TABLET PO SCH ×2 (07:48→21:14)
[2018-07-08] MEDS: FUROSEMIDE 20 MG TABLET PO SCH (07:48)
[2018-07-08] MEDS: LISINOPRIL 5 MG TAB PO SCH (07:48)
[2018-07-08] MEDS: FLECAINIDE 100 MG TAB PO SCH ×2 (07:49→21:13)
[2018-07-08] MEDS: VALSARTAN 80 MG TAB PO SCH (08:00)
[2018-07-08] MEDS: DOCUSATE NA/SENNA CONC 1 TAB PO SCH ×2 (08:00→21:14)
[2018-07-08] MEDS: ACETAMINOPHEN 500 MG TAB PO PRN (12:48)
[2018-07-08] MEDS: ONDANSETRON 4 MG (ODT) TAB PO PRN (12:49)
--- NOTE | 2018-07-08 14:32 | FAST ---
SHIFT START DATE/TIME: 07/07/2018 07:00 (CDT) SHIFT END DATE/TIME: 07/07/2018 19:00 (CDT) NAME PRICE ROGERS DATE OF : 1940 DATE OF ADMISSION: 07/05/2018 18:33 (CDT) PHONE: AGE: 78 N# [id number] GENDER: Male ENCOUNTER PHYSICIAN: Dr. Abdirahman Zepeda M.D. 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 EATING: EATING - STEP 1: Does the patient require the assistance of a person or device, or need extra time when eating? Yes. EATING - STEP 2: Does the patient require the assistance of a helper? Yes. EATING - STEP 3: Does the patient perform half or more of the eating tasks? Yes. EATING - STEP 4: Does the patient need only supervision, cuing, coaxing OR help to apply an orthosis OR help to cut fo od, open containers, pour liquids, or butter bread? Yes. EATING - SCORE: 5-SUP GROOMING: Comb/brush hair Wash, rinse, and dry face Wash, rinse, and dry hands GROOMING - STEP 1: Does the patient require the assistance of a person or device, or need extra time when grooming? Yes. GROOMING - STEP 2: Does the patient require the assistance of a helper? Yes. GROOMING - STEP 3: How much assistance does the patient require from the helper? Only prior equipment preparation/set up from the helper GROOMING - SCORE: 5-SUP BATHING: Activity did not occur on this shift BATHING - SCORE: 0-UNK DRESSING - UPPER BODY: Activity did not occur on this shift ARTICLES SCORE Total number of steps: 0 DRESSING - UPPER BODY - SCORE: 0-UNK DRESSING - LOWER BODY: Elastic waist pants (three steps) Slip-on shoe - Left foot (one step) Slip-on shoe - Right foot (one step) Underwear (three steps) ARTICLES SCORE Total number of steps: 8 DRESSING - LOWER BODY - STEP 1: Does the patient require help from a person or device, or need extra time when dressing below the [address]? Yes. DRESSING - LOWER BODY - STEP 2: Does the patient require the assistance of a helper? Yes. DRESSING - LOWER BODY - STEP 3: Does the helper touch the patient while dressing? Yes. DRESSING - LOWER BODY - STEP 4: How many of the total steps does the patient complete on his/her own? 0 DRESSING - LOWER BODY - STEP 5: Does patient require total assistance for dressing below the waist such as the helper holding clothin g and performing basically all the activities? Yes. DRESSING - LOWER BODY - SCORE: 1-DEP TOILETING: TOILETING - STEP 1: Does the patient require the assistance of a person or device, or need extra time with toileting? Yes . TOILETING - STEP 2: Does the patient require the assistance of a helper? Yes. TOILETING - STEP 3: How much assistance does the patient require from the helper? Hands-on assistance from the helper TOILETING - STEP 4: Of the 3 tasks: 1) Adjusting clothing prior to use, 2) Cleansing of perineal area, 3) Adjusting clot merissa after use; How many tasks does the patient perform WITHOUT assistance of the helper? No tasks; h elper performs all three tasks TOILETING - SCORE: 1-DEP TOILETING - COMMENTS: Pt flaccid of left side- helper uses machine to stand pt - helper pulls pt clothes down- helper lowe r pt onto toilet using machine-helper uses machine to lift pt up for hygiene and pulling pt pants up over pt hips BLADDER MANAGEMENT: BLADDER MANAGEMENT - STEP 1: Does the patient control the bladder completely and intentionally without equipment or devices or med ications, and is always continent? No. BLADDER MANAGEMENT - STEP 2: Does the patient require the assistance of a helper? Yes. BLADDER MANAGEMENT - STEP 3: How much assistance does the patient require from the helper? Patient requires contact assistance fro m the helper BLADDER MANAGEMENT - STEP 4: How much contact assistance does the patient require from the helper? Patient requires moderate mary tance, and performs 50% to 75% of bladder management tasks - [place] positions AND holds urinal or bed benítez BLADDER MANAGEMENT - SCORE: 3-MOD BLADDER MANAGEMENT - FREQUENCY OF ACCIDENTS: BLADDER MANAGEMENT(FA) - STEP 1: How many accidents has the patient had during the current shift? 0 BOWEL MANAGEMENT: Activity did not occur on this shift BOWEL MANAGEMENT - SCORE: 7-IND BOWEL MANAGEMENT - FREQUENCY OF ACCIDENTS: BOWEL MANAGEMENT(FA) - STEP 1: How many accidents has the patient had during the current shift? 0 TRANSFERS: BED, CHAIR, WHEELCHAIR: TRANSFERS: BED, CHAIR, WHEELCHAIR - STEP 1: Does the patient require assistance of a person or device, or need extra time with bed, chair, or whe elchair transfers? Yes. TRANSFERS: BED, CHAIR, WHEELCHAIR - STEP 2: Does the patient require the assistance of a helper? Yes. TRANSFERS: BED, CHAIR, WHEELCHAIR - STEP 3: How much assistance does the patient require from the helper? Lifting of the patient TRANSFERS: BED, CHAIR, WHEELCHAIR - STEP 4: Does the helper lift the patient ONLY up? ONLY down? Up AND Down? Patient needs help with all lifting TRANSFERS: BED, CHAIR, WHEELCHAIR - SCORE: 1-DEP TRANSFERS: BED, CHAIR, WHEELCHAIR - COMMENTS: Helpers use [place] lift machine to lift pt up and down- left side flaccid TRANSFERS: TOILET: Activity did not occur on this shift TRANSFERS: TOILET - SCORE: 0-UNK TRANSFERS: TOILET - COMMENTS: Pt requesting help using urinal only TRANSFERS: SHOWER: Activity did not occur on this shift TRANSFERS: SHOWER - SCORE: 0-UNK TRANSFERS: TUB: Activity did not occur on this shift TRANSFERS: TUB - SCORE: 0-UNK LOCOMOTION: WALK: Activity did not occur on this shift LOCOMOTION: WALK - SCORE: 0-UNK LOCOMOTION: WHEELCHAIR: Activity did not occur on this shift LOCOMOTION: WHEELCHAIR - SCORE: 0-UNK COMPREHENSION: COMPREHENSION: TYPE: Both COMPREHENSION - STEP 1: Does the patient require help from a person or device, or need extra time to understand complex and a bstract ideas (such as current events, finances, discharge planning, medical issues, relationships, e tc)? No. COMPREHENSION - STEP 2: Does the patient need extra time, require an assistive device (such as glasses for visual comprehensi on or a hearing aid for auditory comprehension) or does s/he have mild difficulty understanding compl ex and abstract information? Yes. COMPREHENSION - SCORE: 6-SILVESTRE EXPRESSION EXPRESSION: TYPE: Both EXPRESSION - STEP 1: Does the patient require help from a person or device, or need extra time expressing complex and abst ract ideas (such as current events, finances, discharge planning, medical issues, relationships, etc) ? No. EXPRESSION - STEP 2: Does the patient need extra time, require an assistive device (such as augmentive communication syste m or a communication board), OR does s/he have mild difficulty expressing complex and abstract ideas (including mild dysarthria or mild word-find problems)? Yes. EXPRESSION - SCORE: 6-SILVESTRE SOCIAL INTERACTION: SOCIAL INTERACTION - STEP 1: Does the patient require a helper to interact with others in social and therapeutic situations? No. SOCIAL INTERACTION - STEP 2: Does the patient need extra time in social situations, OR does s/he interact with staff, other patien ts, and family members ONLY in structured environments, OR does s/he require medication for social in teraction? Yes, patient needs extra time SOCIAL INTERACTION - SCORE: 6-SILVESTRE PROBLEM SOLVING: PROBLEM SOLVING - STEP 1: Does the patient need help from a person or device, or need extra time to solve complex problems such as managing a checking account or confronting interpersonal problems? Yes. PROBLEM SOLVING - STEP 2: Does the patient solve basic routine problems half or more of the time? Yes. PROBLEM SOLVING - STEP 3: How often does the patient need help to solve basic routine problems? Less than 10% of the time PROBLEM SOLVING - SCORE: 5-SUP MEMORY: MEMORY - STEP 1: Does the patient need help from a person or device, or need extra time to remember frequently encount ered people, daily routines, and executing requests? No. MEMORY - STEP 2: Does the patient have slight difficulty recognizing frequently encountered people, daily routines, or executing requests without the need for repetition or using self-initiated or environmental cues to remember? Yes. MEMORY - SCORE: 6-SILVESTRE SIGNATURE PANEL: The following modified sections: Eating - Score, Grooming - Score, Bathing - Score, Dressing - Upper Body - Score, Dressing - Lower Body - Score, Toileting - Score, Toileting - Comments:, Bladder Manage ment - Score, Bowel Management - Score, Transfers: Bed, Chair, Wheelchair - Score, Transfers: Bed, Ch air, Wheelchair - Comments:, Transfers: Toilet - Score, Transfers: Toilet - Comments:, Transfers: Melissa wer - Score, Transfers: Tub - Score, Locomotion: Walk - Score, Locomotion: Wheelchair - Score, Compre hension - Score, Expression - Score, Social Interaction - Score, Problem Solving - Score, Memory - Sc ore were [electronically] signed by Vinay NelsonHugo on ThuJul 08 2018 14:31:21 T-0500 (Centra [place] Daylight Time)
--- NOTE | 2018-07-08 15:23 | FAST ---
SHIFT START DATE/TIME: 07/08/2018 07:00 (CDT) SHIFT END DATE/TIME: 07/08/2018 19:00 (CDT) NAME PRICE ROGERS DATE OF : 1940 DATE OF ADMISSION: 07/05/2018 18:33 (CDT) PHONE: AGE: 78 N# [id number] GENDER: Male ENCOUNTER PHYSICIAN: Dr. Abdirahman Zepeda M.D. 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 EATING: EATING - STEP 1: Does the patient require the assistance of a person or device, or need extra time when eating? Yes. EATING - STEP 2: Does the patient require the assistance of a helper? Yes. EATING - STEP 3: Does the patient perform half or more of the eating tasks? Yes. EATING - STEP 4: Does the patient need only supervision, cuing, coaxing OR help to apply an orthosis OR help to cut fo od, open containers, pour liquids, or butter bread? Yes. EATING - SCORE: 5-SUP GROOMING: Comb/brush hair Oral care Wash, rinse, and dry face Wash, rinse, and dry hands GROOMING - STEP 1: Does the patient require the assistance of a person or device, or need extra time when grooming? Yes. GROOMING - STEP 2: Does the patient require the assistance of a helper? Yes. GROOMING - STEP 3: How much assistance does the patient require from the helper? Only prior equipment preparation/set up from the helper GROOMING - SCORE: 5-SUP BATHING: Activity did not occur on this shift BATHING - SCORE: 0-UNK DRESSING - UPPER BODY: Activity did not occur on this shift ARTICLES SCORE Total number of steps: 0 DRESSING - UPPER BODY - SCORE: 0-UNK DRESSING - LOWER BODY: Elastic waist pants (three steps) Sock - Left foot (one step) Sock - Right foot (one step) ARTICLES SCORE Total number of steps: 5 DRESSING - LOWER BODY - STEP 1: Does the patient require help from a person or device, or need extra time when dressing below the [address]? Yes. DRESSING - LOWER BODY - STEP 2: Does the patient require the assistance of a helper? Yes. DRESSING - LOWER BODY - STEP 3: Does the helper touch the patient while dressing? Yes. DRESSING - LOWER BODY - STEP 4: How many of the total steps does the patient complete on his/her own? 0 DRESSING - LOWER BODY - STEP 5: Does patient require total assistance for dressing below the waist such as the helper holding clothin g and performing basically all the activities? Yes. DRESSING - LOWER BODY - SCORE: 1-DEP DRESSING - LOWER BODY - COMMENTS: Pt with left side flaccid- TOILETING: TOILETING - STEP 1: Does the patient require the assistance of a person or device, or need extra time with toileting? Yes . TOILETING - STEP 2: Does the patient require the assistance of a helper? Yes. TOILETING - STEP 3: How much assistance does the patient require from the helper? Hands-on assistance from the helper TOILETING - STEP 4: Of the 3 tasks: 1) Adjusting clothing prior to use, 2) Cleansing of perineal area, 3) Adjusting clot merissa after use; How many tasks does the patient perform WITHOUT assistance of the helper? No tasks; h elper performs all three tasks TOILETING - SCORE: 1-DEP TOILETING - COMMENTS: [place] uses lift machine to lift up up to sitting position and positions pt onto toilet BLADDER MANAGEMENT: BLADDER MANAGEMENT - STEP 1: Does the patient control the bladder completely and intentionally without equipment or devices or med ications, and is always continent? No. BLADDER MANAGEMENT - STEP 2: Does the patient require the assistance of a helper? Yes. BLADDER MANAGEMENT - STEP 3: How much assistance does the patient require from the helper? Patient requires contact assistance fro m the helper BLADDER MANAGEMENT - STEP 4: How much contact assistance does the patient require from the helper? Patient requires moderate mary tance, and performs 50% to 75% of bladder management tasks - [place] positions AND holds urinal or bed benítez BLADDER MANAGEMENT - SCORE: 3-MOD BLADDER MANAGEMENT - COMMENTS: Left side flaccid- helper positions and holds urinal- helper provides hygiene care and repositions c felecia BLADDER MANAGEMENT - FREQUENCY OF ACCIDENTS: BLADDER MANAGEMENT(FA) - STEP 1: How many accidents has the patient had during the current shift? 0 BOWEL MANAGEMENT: Activity did not occur on this shift BOWEL MANAGEMENT - SCORE: 7-IND BOWEL MANAGEMENT - FREQUENCY OF ACCIDENTS: BOWEL MANAGEMENT(FA) - STEP 1: How many accidents has the patient had during the current shift? 0 TRANSFERS: BED, CHAIR, WHEELCHAIR: TRANSFERS: BED, CHAIR, WHEELCHAIR - STEP 1: Does the patient require assistance of a person or device, or need extra time with bed, chair, or whe elchair transfers? Yes. TRANSFERS: BED, CHAIR, WHEELCHAIR - STEP 2: Does the patient require the assistance of a helper? Yes. TRANSFERS: BED, CHAIR, WHEELCHAIR - STEP 3: How much assistance does the patient require from the helper? Lifting of the patient TRANSFERS: BED, CHAIR, WHEELCHAIR - STEP 4: Does the helper lift the patient ONLY up? ONLY down? Up AND Down? Patient needs help with all lifting TRANSFERS: BED, CHAIR, WHEELCHAIR - SCORE: 1-DEP TRANSFERS: TOILET: TRANSFERS: TOILET - STEP 1: Does the patient require the assistance of a person or device, or need extra time with toilet transfe rs? Yes. TRANSFERS: TOILET - STEP 2: Does the patient require the assistance of a helper? Yes. TRANSFERS: TOILET - STEP 3: How much assistance does the patient require from the helper? Patient performs less than half of the transferring tasks TRANSFERS: TOILET - STEP 4: Does the patient require total assistance for the toilet transfer such as the helper doing basically all the lifting? Yes. TRANSFERS: TOILET - SCORE: 1-DEP TRANSFERS: TOILET - COMMENTS: [place] uses lift to lift and transfer pt on and off tiolet TRANSFERS: SHOWER: Activity did not occur on this shift TRANSFERS: SHOWER - SCORE: 0-UNK TRANSFERS: TUB: Activity did not occur on this shift TRANSFERS: TUB - SCORE: 0-UNK LOCOMOTION: WALK: Activity did not occur on this shift LOCOMOTION: WALK - SCORE: 0-UNK LOCOMOTION: WHEELCHAIR: Activity did not occur on this shift LOCOMOTION: WHEELCHAIR - SCORE: 0-UNK COMPREHENSION: COMPREHENSION: TYPE: Both COMPREHENSION - STEP 1: Does the patient require help from a person or device, or need extra time to understand complex and a bstract ideas (such as current events, finances, discharge planning, medical issues, relationships, e tc)? No. COMPREHENSION - STEP 2: Does the patient need extra time, require an assistive device (such as glasses for visual comprehensi on or a hearing aid for auditory comprehension) or does s/he have mild difficulty understanding compl ex and abstract information? Yes. COMPREHENSION - SCORE: 6-SILVESTRE EXPRESSION EXPRESSION: TYPE: Both EXPRESSION - STEP 1: Does the patient require help from a person or device, or need extra time expressing complex and abst ract ideas (such as current events, finances, discharge planning, medical issues, relationships, etc) ? No. EXPRESSION - STEP 2: Does the patient need extra time, require an assistive device (such as augmentive communication syste m or a communication board), OR does s/he have mild difficulty expressing complex and abstract ideas (including mild dysarthria or mild word-find problems)? Yes. EXPRESSION - SCORE: 6-SILVESTRE SOCIAL INTERACTION: SOCIAL INTERACTION - STEP 1: Does the patient require a helper to interact with others in social and therapeutic situations? No. SOCIAL INTERACTION - STEP 2: Does the patient need extra time in social situations, OR does s/he interact with staff, other patien ts, and family members ONLY in structured environments, OR does s/he require medication for social in teraction? Yes, patient needs extra time SOCIAL INTERACTION - SCORE: 6-SILVESTRE PROBLEM SOLVING: PROBLEM SOLVING - STEP 1: Does the patient need help from a person or device, or need extra time to solve complex problems such as managing a checking account or confronting interpersonal problems? Yes. PROBLEM SOLVING - STEP 2: Does the patient solve basic routine problems half or more of the time? Yes. PROBLEM SOLVING - STEP 3: How often does the patient need help to solve basic routine problems? Less than 10% of the time PROBLEM SOLVING - SCORE: 5-SUP MEMORY: MEMORY - STEP 1: Does the patient need help from a person or device, or need extra time to remember frequently encount ered people, daily routines, and executing requests? No. MEMORY - STEP 2: Does the patient have slight difficulty recognizing frequently encountered people, daily routines, or executing requests without the need for repetition or using self-initiated or environmental cues to remember? Yes. MEMORY - SCORE: 6-SILVESTRE SIGNATURE PANEL: The following modified sections: Eating - Score, Grooming - Score, Bathing - Score, Dressing - Upper Body - Score, Dressing - Lower Body - Score, Dressing - Lower Body - Comments:, Toileting - Score, To ileting - Comments:, Bladder Management - Score, Bladder Management - Comments:, Bowel Management - S core, Transfers: Bed, Chair, Wheelchair - Score, Transfers: Toilet - Score, Transfers: Toilet - Comme nts:, Transfers: Shower - Score, Transfers: Tub - Score, Locomotion: Walk - Score, Locomotion: Wheelc hair - Score, Comprehension - Score, Expression - Score, Social Interaction - Score, Memory - Score, Problem Solving - Score were [electronically] signed by Penelope Medrano C.N.A. on ThuJul 08 2018 15:22 :45 GMT-0500 (Central Daylight Time)
--- NOTE | 2018-07-08 18:48 | R.PN ---
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 SUBJECTIVE: Pt denied any Shortness of Breath. Pt denied any depression. Left shoulder flexion/extension is at 2/5, distally left upper extremity is at 0/5. Labs reviewed an d are stable. VITAL SIGNS Temperature: 97.4 F SBP/DBP: 123/73 Pulse: 68 Resp: 16 MEDICATION ALLERGIES: No Known Drug Allergies (NKDA) ENVIRONMENTAL ALLERGIES: None Known - Substance Allergies None Known - Other Allergies None Known NURSING: - Shower allowing shower - Bladder care per protocol - Skin care per protocol PRECAUTIONS: - Weight Bearing Precaution WBAT left LE ACTIVITIES OOB only with supervision THERAPIES: - Occupational Therapy Evaluate and Treat. Visual Perceptual Training. Cognitive Retraining. - Speech Therapy Cognitive Training. Memory Strategies. Expressive Language Skills. Speech Intelligibility Training. R eceptive Language Skills. Dysphagia Therapy. - Physical Therapy Evaluate and Treat. PHYSICAL EXAM - Gen Alert and awake Lying in bed No apparent distress Oriented to: person, time, and place - Skin No beakdown No abnormalities - Eyes No abnormalities - ENMT No abnormalities - Neck No abnormalities - CVS RRR - Chest No abnormalities - Resp Clear to auscultation - Abd + bowel sounds - GI nondistended Deferred - No abnormalities - Ext Mild left lower extremity edema. - MSK 0/5 strength in the left upper extremity and 2+/5 weakness in left lower extremity. - Neuro 0/5 strength in the left upper extremity and 2+/5 weakness in left lower extremity. - Psych No abnormalities ASSESSMENT: Pt. is a 78 yo Right-handed white male.On 06/25/2018 Pt. presented to [facility] with sudden on set of left-side weakness.On 06/25/2018 he was admitted to [facility] with diagnosis Right MCA. His impairment category is Stroke 01 - Left Body (Right Brain) (01.1).Pre-morbidly, Pt. was independ ent/mod-I in Self-Care, Sphincter Control, Transfers Control, Locomotion, Communication, and Social C ognition; and he had good Sphincter Control.Currently, he has deficits of Self-Care, Transfers Contro l, Locomotion, Communication, Social Cognition, Endurance, Balance, and Safety Awareness.Pt. is now r eferred to [facility] for acute in-patient rehabilitation in order to maximize patient's functional independence in activities of daily living, strength, ROM, and mobility.- Rehab Goal Patient has realistic goal of being discharged at assistance level 6-Maria E to reside at Home with Fam linda/Relatives. MDM/PLAN: - Physical Therapy Gait dysfunction - to improve, our physical therapists will perform initial evaluation of pt's statu s upon admission and devise an individualized program for Gait Training, and Wheel Chair mobility Inability to transfer - to improve, our physical therapists will perform initial evaluation of pt's status upon admission and devise an individualized program for Bed mobility Need for home safety evaluation - to improve, our physical therapists will perform initial evaluatio n of pt's status upon admission and devise an individualized program for Home Evaluation Need in caregiver upon discharge - to improve, our physical therapists will perform initial evaluati on of pt's status upon admission and devise an individualized program for Caregiver Training Edema - to improve, our physical therapists will perform initial evaluation of pt's status upon admis rhoda and devise an individualized program for Elevation Training, and Lymphedema Therapy New precaution - to improve, our physical therapists will perform initial evaluation of pt's status upon admission and devise an individualized program for Patient precaution education Poor balance - to improve, our physical therapists will perform initial evaluation of pt's status up on admission and devise an individualized program for Balance Training Poor endurance - to improve, our physical therapists will perform initial evaluation of pt's status upon admission and devise an individualized program for Endurance Training Weakness - to improve, our physical therapists will perform initial evaluation of pt's status upon a dmission and devise an individualized program for Aquatic Therapy, Neuromuscular Reeducation, and Str engthening Achieving independence - to improve, our physical therapists will perform initial evaluation of pt's status upon admission and devise an individualized program for Community Reintegration Activities - Occupational Therapy ADL deficits - to improve, our occupation therapists will perform initial evaluation of pt's status upon admission and devise an individualized program for Bathing, Bed mobility, Community Reintegratio n, Cooking, Dressing, Eating, Fine Motor Skills, Grooming, Homemaking, Kitchen Mobility, Laundry, Pat ient Education, Safety Awareness, Splinting - Positioning, Transfers(Toilet, Tub, Shower), and Wheel Chair Management Cognitive deficits - to improve, our occupation therapists will perform initial evaluation of pt's s tatus upon admission and devise an individualized program for Cognition - orientation Need for career development facilitator - to improve, our occupation therapists will perform initial evaluation of pt's status upon admission and devise an individualized program for Caregiver Training Weakness - to improve, our occupation therapists will perform initial evaluation of pt's status upon admission and devise an individualized program for Aquatic Therapy, Balance, Endurance, UE ROM, and UE strengthening - Diet Type Continue Regular - Diet - Liquid Texture Continue Thin - Tube Feed Continue N/A - Bladder care per protocol - Weight Bearing Precaution WBAT left LE - Skin care per protocol - Diet - Solid Texture Continue Regular Continue Mechanical Soft (Ground) - Shower allowing shower for Dementia, TBI, Stroke, or others FUNCTIONAL STATUS: UPDATED AT WEEKLY TEAM CONFERENCE - Bladder Same accident frequency: 7-Ind - No accidents in the past 7 days - Bowel Same accident frequency: 7-Ind - No accidents in the past 7 days - Walking Same score based on distance walked: 0(N/A) - Wheelchair Same score based on distance traveled: 0(N/A) FUNCTIONAL STATUS: - Self-Care A. Eating sup B. Grooming Anil C. Bathing maxA D. Dressing - Upper Anil E. Dressing - Lower maxA F. Toileting maxA - Sphincter Control G: Bladder control Ind H: Bowel control Ind - Transfers Control I. Bed/Chair/Wheelchair maxA J. Toilet maxA K. Tub/Shower ADNO - Locomotion L. Walk/Wheelchair (C) Dep L. Walk/Wheelchair (W) Dep M. Stairs ADNO - Communication N. Comprehension (B) Anil O. Expression (B) Anil - Social Cognition P. Social Interaction Anil Q. Problem Solving Anil R. Memory Anil - Endurance Fair - Balance Poor - Safety Awareness Fair CURRENT FUNC. DEFICITS: Self-Care, Transfers Control, Locomotion, Communication, Social Cognition, Endurance, Balance, and Sa fety Awareness SIGNATURE PANEL: (CDT)
--- NOTE | 2018-07-08 19:05 | FAST ---
SHIFT START DATE/TIME: 07/07/2018 19:00 (CDT) SHIFT END DATE/TIME: 07/08/2018 07:00 (CDT) NAME PRICE ROGERS DATE OF : 1940 DATE OF ADMISSION: 07/05/2018 18:33 (CDT) PHONE: AGE: 78 N# [id number] GENDER: Male ENCOUNTER PHYSICIAN: Dr. Abdirahman Zepeda M.D. 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 EATING: Activity did not occur on this shift EATING - SCORE: 0-UNK GROOMING: Activity did not occur on this shift GROOMING - SCORE: 0-UNK BATHING: Activity did not occur on this shift BATHING - SCORE: 0-UNK DRESSING - UPPER BODY: Patient is not dressing in public clothing ARTICLES SCORE Total number of steps: 0 DRESSING - UPPER BODY - SCORE: 0-UNK DRESSING - LOWER BODY: Patient is not dressing in public clothing ARTICLES SCORE Total number of steps: 0 DRESSING - LOWER BODY - SCORE: 0-UNK TOILETING: TOILETING - STEP 1: Does the patient require the assistance of a person or device, or need extra time with toileting? Yes . TOILETING - STEP 2: Does the patient require the assistance of a helper? Yes. TOILETING - STEP 3: How much assistance does the patient require from the helper? Hands-on assistance from the helper TOILETING - STEP 4: Of the 3 tasks: 1) Adjusting clothing prior to use, 2) Cleansing of perineal area, 3) Adjusting clot merissa after use; How many tasks does the patient perform WITHOUT assistance of the helper? No tasks; h elper performs all three tasks TOILETING - SCORE: 1-DEP BLADDER MANAGEMENT: [place] removes incontinent device (Depends, pull ups, etc.); cleans the patient after accident / inco ntinent episode; and, applies new incontinent device. BLADDER MANAGEMENT - SCORE: 1-DEP BOWEL MANAGEMENT: Activity did not occur on this shift BOWEL MANAGEMENT - SCORE: 7-IND TRANSFERS: BED, CHAIR, WHEELCHAIR: Activity did not occur on this shift TRANSFERS: BED, CHAIR, WHEELCHAIR - SCORE: 0-UNK TRANSFERS: TOILET: Activity did not occur on this shift TRANSFERS: TOILET - SCORE: 0-UNK TRANSFERS: SHOWER: Activity did not occur on this shift TRANSFERS: SHOWER - SCORE: 0-UNK TRANSFERS: TUB: Activity did not occur on this shift TRANSFERS: TUB - SCORE: 0-UNK LOCOMOTION: WALK: Activity did not occur on this shift LOCOMOTION: WALK - SCORE: 0-UNK LOCOMOTION: WHEELCHAIR: Activity did not occur on this shift LOCOMOTION: WHEELCHAIR - SCORE: 0-UNK COMPREHENSION: COMPREHENSION: TYPE: Both COMPREHENSION - STEP 1: Does the patient require help from a person or device, or need extra time to understand complex and a bstract ideas (such as current events, finances, discharge planning, medical issues, relationships, e tc)? No. COMPREHENSION - STEP 2: Does the patient need extra time, require an assistive device (such as glasses for visual comprehensi on or a hearing aid for auditory comprehension) or does s/he have mild difficulty understanding compl ex and abstract information? Yes. COMPREHENSION - SCORE: 6-SILVESTRE EXPRESSION EXPRESSION: TYPE: Both EXPRESSION - STEP 1: Does the patient require help from a person or device, or need extra time expressing complex and abst ract ideas (such as current events, finances, discharge planning, medical issues, relationships, etc) ? No. EXPRESSION - STEP 2: Does the patient need extra time, require an assistive device (such as augmentive communication syste m or a communication board), OR does s/he have mild difficulty expressing complex and abstract ideas (including mild dysarthria or mild word-find problems)? Yes. EXPRESSION - SCORE: 6-SILVESTRE SOCIAL INTERACTION: SOCIAL INTERACTION - STEP 1: Does the patient require a helper to interact with others in social and therapeutic situations? No. SOCIAL INTERACTION - STEP 2: Does the patient need extra time in social situations, OR does s/he interact with staff, other patien ts, and family members ONLY in structured environments, OR does s/he require medication for social in teraction? Yes, patient needs extra time SOCIAL INTERACTION - SCORE: 6-SILVESTRE PROBLEM SOLVING: PROBLEM SOLVING - STEP 1: Does the patient need help from a person or device, or need extra time to solve complex problems such as managing a checking account or confronting interpersonal problems? Yes. PROBLEM SOLVING - STEP 2: Does the patient solve basic routine problems half or more of the time? Yes. PROBLEM SOLVING - STEP 3: How often does the patient need help to solve basic routine problems? 10%-24% of the time PROBLEM SOLVING - SCORE: 4-MIN MEMORY: MEMORY - STEP 1: Does the patient need help from a person or device, or need extra time to remember frequently encount ered people, daily routines, and executing requests? No. MEMORY - STEP 2: Does the patient have slight difficulty recognizing frequently encountered people, daily routines, or executing requests without the need for repetition or using self-initiated or environmental cues to remember? Yes. MEMORY - SCORE: 6-SILVESTRE SIGNATURE PANEL: The following modified sections: Eating - Score, Grooming - Score, Dressing - Upper Body - Score, Jitendra ssing - Lower Body - Score, Toileting - Score, Bladder Management - Score, Bowel Management - Score, Transfers: Bed, Chair, Wheelchair - Score, Transfers: Toilet - Score, Transfers: Shower - Score, Good sfers: Tub - Score, Locomotion: Walk - Score, Locomotion: Wheelchair - Score, Comprehension - Score, Expression - Score, Social Interaction - Score, Problem Solving - Score, Memory - Score were [electro nically] signed by Valerie Almanzar CNA on ThuJul 08 2018 19:04:39 GMT-0500 (Central Daylight Time)
[2018-07-08] MEDS: ATORVASTATIN 10 MG TAB PO SCH (21:12)
--- NOTE | 2018-07-09 00:49 | FAST ---
SHIFT START DATE/TIME: 07/08/2018 19:00 (CDT) SHIFT END DATE/TIME: 07/09/2018 07:00 (CDT) NAME PRICE ROGERS DATE OF : 1940 DATE OF ADMISSION: 07/05/2018 18:33 (CDT) PHONE: AGE: 78 N# [id number] GENDER: Male ENCOUNTER PHYSICIAN: Dr. Abdirahman Zepeda M.D. 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 EATING: Activity did not occur on this shift EATING - SCORE: 0-UNK GROOMING: Activity did not occur on this shift GROOMING - SCORE: 0-UNK BATHING: Activity did not occur on this shift BATHING - SCORE: 0-UNK DRESSING - UPPER BODY: Patient is not dressing in public clothing ARTICLES SCORE Total number of steps: 0 DRESSING - UPPER BODY - SCORE: 0-UNK DRESSING - LOWER BODY: Patient is not dressing in public clothing ARTICLES SCORE Total number of steps: 0 DRESSING - LOWER BODY - SCORE: 0-UNK TOILETING: TOILETING - STEP 1: Does the patient require the assistance of a person or device, or need extra time with toileting? Yes . TOILETING - STEP 2: Does the patient require the assistance of a helper? Yes. TOILETING - STEP 3: How much assistance does the patient require from the helper? Hands-on assistance from the helper TOILETING - STEP 4: Of the 3 tasks: 1) Adjusting clothing prior to use, 2) Cleansing of perineal area, 3) Adjusting clot merissa after use; How many tasks does the patient perform WITHOUT assistance of the helper? No tasks; h elper performs all three tasks TOILETING - SCORE: 1-DEP BLADDER MANAGEMENT: [place] removes incontinent device (Depends, pull ups, etc.); cleans the patient after accident / inco ntinent episode; and, applies new incontinent device. BLADDER MANAGEMENT - SCORE: 1-DEP BOWEL MANAGEMENT: Activity did not occur on this shift BOWEL MANAGEMENT - SCORE: 7-IND TRANSFERS: BED, CHAIR, WHEELCHAIR: Activity did not occur on this shift TRANSFERS: BED, CHAIR, WHEELCHAIR - SCORE: 0-UNK TRANSFERS: TOILET: Activity did not occur on this shift TRANSFERS: TOILET - SCORE: 0-UNK TRANSFERS: SHOWER: Activity did not occur on this shift TRANSFERS: SHOWER - SCORE: 0-UNK TRANSFERS: TUB: Activity did not occur on this shift TRANSFERS: TUB - SCORE: 0-UNK LOCOMOTION: WALK: Activity did not occur on this shift LOCOMOTION: WALK - SCORE: 0-UNK LOCOMOTION: WHEELCHAIR: Activity did not occur on this shift LOCOMOTION: WHEELCHAIR - SCORE: 0-UNK COMPREHENSION: COMPREHENSION: TYPE: Both COMPREHENSION - STEP 1: Does the patient require help from a person or device, or need extra time to understand complex and a bstract ideas (such as current events, finances, discharge planning, medical issues, relationships, e tc)? No. COMPREHENSION - STEP 2: Does the patient need extra time, require an assistive device (such as glasses for visual comprehensi on or a hearing aid for auditory comprehension) or does s/he have mild difficulty understanding compl ex and abstract information? Yes. COMPREHENSION - SCORE: 6-SILVESTRE EXPRESSION EXPRESSION: TYPE: Both EXPRESSION - STEP 1: Does the patient require help from a person or device, or need extra time expressing complex and abst ract ideas (such as current events, finances, discharge planning, medical issues, relationships, etc) ? No. EXPRESSION - STEP 2: Does the patient need extra time, require an assistive device (such as augmentive communication syste m or a communication board), OR does s/he have mild difficulty expressing complex and abstract ideas (including mild dysarthria or mild word-find problems)? No. EXPRESSION - SCORE: 7-IND SOCIAL INTERACTION: SOCIAL INTERACTION - STEP 1: Does the patient require a helper to interact with others in social and therapeutic situations? No. SOCIAL INTERACTION - STEP 2: Does the patient need extra time in social situations, OR does s/he interact with staff, other patien ts, and family members ONLY in structured environments, OR does s/he require medication for social in teraction? Yes, patient needs extra time SOCIAL INTERACTION - SCORE: 6-SILVESTRE PROBLEM SOLVING: PROBLEM SOLVING - STEP 1: Does the patient need help from a person or device, or need extra time to solve complex problems such as managing a checking account or confronting interpersonal problems? Yes. PROBLEM SOLVING - STEP 2: Does the patient solve basic routine problems half or more of the time? Yes. PROBLEM SOLVING - STEP 3: How often does the patient need help to solve basic routine problems? 25%-49% of the time PROBLEM SOLVING - SCORE: 3-MOD MEMORY: MEMORY - STEP 1: Does the patient need help from a person or device, or need extra time to remember frequently encount ered people, daily routines, and executing requests? No. MEMORY - STEP 2: Does the patient have slight difficulty recognizing frequently encountered people, daily routines, or executing requests without the need for repetition or using self-initiated or environmental cues to remember? Yes. MEMORY - SCORE: 6-SILVESTRE SIGNATURE PANEL: The following modified sections: Eating - Score, Grooming - Score, Dressing - Upper Body - Score, Jitendra ssing - Lower Body - Score, Toileting - Score, Bladder Management - Score, Bowel Management - Score, Transfers: Bed, Chair, Wheelchair - Score, Transfers: Toilet - Score, Transfers: Shower - Score, Good sfers: Tub - Score, Locomotion: Walk - Score, Locomotion: Wheelchair - Score, Comprehension - Score, Expression - Score, Social Interaction - Score, Problem Solving - Score, Memory - Score were [electro nically] signed by Valerie Almanzar CNA on ThuJul 09 2018 00:48:07 GMT-0500 (Central Daylight Time)
[2018-07-09] MEDS: CITALOPRAM 10 MG TABLET PO SCH (07:51)
[2018-07-09] MEDS: APIXABAN 2.5 MG TABLET PO SCH ×2 (07:51→20:49)
[2018-07-09] MEDS: FLECAINIDE 100 MG TAB PO SCH ×2 (07:51→20:47)
[2018-07-09] MEDS: VALSARTAN 80 MG TAB PO SCH (07:54)
[2018-07-09] MEDS: LISINOPRIL 5 MG TAB PO SCH (07:54)
[2018-07-09] MEDS: ASPIRIN 81 MG CHEWABLE TABLET PO SCH (07:54)
[2018-07-09] MEDS: ACETAMINOPHEN 500 MG TAB PO PRN (07:55)
[2018-07-09] MEDS: FUROSEMIDE 20 MG TABLET PO SCH (07:56)
[2018-07-09] MEDS: GABAPENTIN 300 MG CAP PO SCH ×2 (07:56→20:49)
--- NOTE | 2018-07-09 09:44 | P.RH.PN ---
Estimated Length of Stay: 23 Expected Discharge Date: 06/26/18 Discharge Disposition Plan: Home Family Support: Yes Halfway Goal: Mobility, Transfers, Self Care Vital Signs: Last Vital Signs Temp 97.7 F 07/09/18 06:45 Pulse 75 07/09/18 07:54 Resp 16 07/09/18 06:45 BP 116/63 07/09/18 07:54 Pulse Ox 97 07/09/18 06:45 Laboratory: Laboratory Last Values WBC 9.0 K/uL (4.3-10.9) D 07/08/18 05:50 RBC 3.86 M/uL (4.33-5.43) L 07/08/18 05:50 Hgb 12.1 g/dL (13.6-17.9) L 07/08/18 05:50 Hct 36.7 % (39.6-49.0) L 07/08/18 05:50 MCV 94.9 fL (80-100) 07/08/18 05:50 MCH 31.4 pg (27.0-35.0) 07/08/18 05:50 MCHC 33.1 g/dL (32.0-36.0) 07/08/18 05:50 RDW 15.0 % (12.1-15.2) 07/08/18 05:50 Plt Count 288 K/uL (152-406) 07/08/18 05:50 MPV 8.6 fL (7.6-11.3) 07/08/18 05:50 Neutrophils % 67.5 % (41.7-73.7) 07/08/18 05:50 Lymphocytes % 16.0 % (15.3-44.8) 07/08/18 05:50 Monocytes % 9.3 % (3.3-12.3) 07/08/18 05:50 Eosinophils % 6.5 % (0-4.4) H 07/08/18 05:50 Basophils % 0.7 % (0-1.3) 07/08/18 05:50 Absolute Neutrophils 6.1 K/uL (1.8-8.0) 07/08/18 05:50 Absolute Lymphocytes 1.4 K/uL (0.7-4.9) 07/08/18 05:50 Absolute Monocytes 0.8 K/uL (0.1-1.3) 07/08/18 05:50 Absolute Eosinophils 0.6 K/uL (0-0.5) H 07/08/18 05:50 Absolute Basophils 0.1 K/uL (0-0.5) 07/08/18 05:50 Sodium 137 mmol/L (136-145) 07/08/18 05:50 Potassium 4.0 mmol/L (3.5-5.1) 07/08/18 05:50 Chloride 104 mmol/L (98-107) 07/08/18 05:50 Carbon Dioxide 28 mmol/L (21-32) 07/08/18 05:50 BUN 23 mg/dL (7-18) H 07/08/18 05:50 Creatinine 0.83 mg/dL (0.55-1.3) 07/08/18 05:50 Estimated GFR > 90 mL/min (=/>90) 07/08/18 05:50 Glucose 106 mg/dL (74-106) 07/08/18 05:50 Calcium 8.1 mg/dL (8.5-10.1) L 07/08/18 05:50 Magnesium 2.2 mg/dL (1.8-2.4) 07/06/18 06:04 Total Bilirubin 0.7 mg/dL (0.2-1.0) 07/06/18 06:04 Direct Bilirubin 0.2 mg/dL (0-0.2) 07/06/18 06:04 AST 25 U/L (15-37) 07/06/18 06:04 ALT 29 U/L (12-78) 07/06/18 06:04 Alkaline Phosphatase 94 U/L (45-117) 07/06/18 06:04 Serum Total Protein 7.0 g/dL (6.4-8.2) 07/06/18 06:04 Albumin 3.0 g/dL (3.4-5.0) L 07/08/18 05:50 Globulin 3.9 g/dL (2.3-3.5) H 07/06/18 06:04 Albumin/Globulin Ratio 0.8 (1.1-1.8) L 07/06/18 06:04 Prealbumin 23.2 mg/dL (20-40) 07/08/18 05:50 Urine Color Dk yellow 07/07/18 00:10 Urine Appearance Clear 07/07/18 00:10 Urine pH 5.0 (5.0-7.0) 07/07/18 00:10 Ur Specific [place] 1.025 (1.005-1.030) 07/07/18 00:10 Urine Ketones Negative (NEG) 07/07/18 00:10 Urine Blood Negative (NEG) 07/07/18 00:10 Urine Nitrite Negative (NEG) 07/07/18 00:10 Urine Bilirubin Negative (NEG) 07/07/18 00:10 Urine Urobilinogen 1.0 mg/dL (0.2-1.0) 07/07/18 00:10 Ur Leukocyte Esterase Negative (NEG) 07/07/18 00:10 Urine RBC <5 /HPF (NONE SEEN) 07/07/18 00:10 Urine WBC <5 /HPF (<5) 07/07/18 00:10 Ur Squamous Epith Cells IVF EMBRYOLOGIST 07/07/18 00:10 Urine Bacteria <20 /HPF (NONE SEEN) 07/07/18 00:10 Urine Mucus Slight /HPF (NONE SEEN) 07/07/18 00:10 Urine Culture Reflexed Not needed 07/07/18 00:10 Urine Glucose Negative (NEG) 07/07/18 00:10 Urine Total Protein Negative (NEG) 07/07/18 00:10 Weight: 272 lb 3.2 oz Wound Present: Yes Closed Surgical Incision Present: No Negative Pressure Wound Therapy Present: No Physician Update: Labs have been reviewed and are stable. He has no difficulty with thin liquids but aspiration on nectar. He is mildly impulsive and easlily distracted. He has to be reminded to focus on tasks. He is able to stand with total assistance due to left leg and arm weakness. Medical Issues: DVT Prophylaxis - Eliquis 2.5mg BID Pain Issues: [place] 5/325mg Q6H PRN. Tramadol 50mg Q6H PRN Functional Improvement: Patient has not met any goals at this time, however has shown progress w/ L LE strength and is currently working to improve trunk strength/control. Functional Improvement Occupational Therapy: Patient is very motivated and participatory with therapy, and continues to benefit greatly from skilled OT to address his significant left side weakness and learning new strategies with one- handed techniques during BADL tasks completion. Summary: Patient's care plan and intermediate goals have been reviewed and revised as necessary. Please see the Rehabilitation Signature page for all necessary signatures.
--- NOTE | 2018-07-09 10:27 | RAD REPORT ---
EXAM DESCRIPTION: CT - Head Brain Wo Cont - 07/09/2018 10:03 am CLINICAL HISTORY: increase numbness of LLE CVA symptomology COMPARISON: Head C Spine Mpr Wo Con dated 06/16/2018 TECHNIQUE: All CT scans are performed using dose optimization technique as appropriate and may inclu de automated exposure control or mA/KV adjustment according to patient size. FINDINGS: No intracranial hemorrhage, hydrocephalus or extra-axial fluid collection.There is a large area of diminished density seen in the distribution of the right middle cerebral artery compatible w ith subacute CVA. No hemorrhagic conversion seen. No midline shift. The paranasal sinuses and mastoids are clear. The calvarium is intact. Small posterior right scalp he matoma. IMPRESSION: Subacute right MCA territory CVA without evidence of hemorrhagic conversion or midline s hift. Findings were discussed with Dr. Zepeda.
--- NOTE | 2018-07-09 11:18 | FAST ---
ENCOUNTER DATE AND TIME: 07/08/2018 08:00 (CDT) NAME PRICE ROGERS DATE OF : 1940 DATE OF ADMISSION: 07/05/2018 18:33 (CDT) PHONE: AGE: 78 N# [id number] GENDER: Male ENCOUNTER PHYSICIAN: Dr. Abdirahman Zepeda M.D. 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 EATING: Activity did not occur on this shift EATING - SCORE: 0-UNK GROOMING: Wash, rinse, and dry face Wash, rinse, and dry hands GROOMING - STEP 1: Does the patient require the assistance of a person or device, or need extra time when grooming? Yes. GROOMING - STEP 2: Does the patient require the assistance of a helper? Yes. GROOMING - STEP 3: How much assistance does the patient require from the helper? Cuing, coaxing, instructions, or encour agement for completion of grooming GROOMING - SCORE: 5-SUP BATHING: Activity did not occur on this shift BATHING - SCORE: 0-UNK DRESSING - UPPER BODY: Activity did not occur on this shift ARTICLES SCORE Total number of steps: 0 DRESSING - UPPER BODY - SCORE: 0-UNK DRESSING - LOWER BODY: Sock - Left foot (one step) Sock - Right foot (one step) Underwear (three steps) Zippered pants (four steps) ARTICLES SCORE Total number of steps: 9 DRESSING - LOWER BODY - STEP 1: Does the patient require help from a person or device, or need extra time when dressing below the [address]? Yes. DRESSING - LOWER BODY - STEP 2: Does the patient require the assistance of a helper? Yes. DRESSING - LOWER BODY - STEP 3: Does the helper touch the patient while dressing? No. DRESSING - LOWER BODY - SCORE: 5-SUP TOILETING: TOILETING - STEP 1: Does the patient require the assistance of a person or device, or need extra time with toileting? Yes . TOILETING - STEP 2: Does the patient require the assistance of a helper? Yes. TOILETING - STEP 3: How much assistance does the patient require from the helper? Only supervision TOILETING - SCORE: 5-SUP BLADDER MANAGEMENT: Activity did not occur on this shift BLADDER MANAGEMENT - SCORE: 7-IND BOWEL MANAGEMENT: Activity did not occur on this shift BOWEL MANAGEMENT - SCORE: 7-IND TRANSFERS: BED, CHAIR, WHEELCHAIR: TRANSFERS: BED, CHAIR, WHEELCHAIR - STEP 1: Does the patient require assistance of a person or device, or need extra time with bed, chair, or whe elchair transfers? Yes. TRANSFERS: BED, CHAIR, WHEELCHAIR - STEP 2: Does the patient require the assistance of a helper? Yes. TRANSFERS: BED, CHAIR, WHEELCHAIR - STEP 3: How much assistance does the patient require from the helper? Steadying/guiding assistance TRANSFERS: BED, CHAIR, WHEELCHAIR - SCORE: 4-MIN TRANSFERS: TOILET: TRANSFERS: TOILET - STEP 1: Does the patient require the assistance of a person or device, or need extra time with toilet transfe rs? Yes. TRANSFERS: TOILET - STEP 2: Does the patient require the assistance of a helper? Yes. TRANSFERS: TOILET - STEP 3: How much assistance does the patient require from the helper? Patient performs half or more of the tr ansferring tasks TRANSFERS: TOILET - STEP 4: Does the patient need only incidental help such as contact guard or steadying during toilet transfer? Yes. TRANSFERS: TOILET - SCORE: 4-MIN TRANSFERS: SHOWER: Activity did not occur on this shift TRANSFERS: SHOWER - SCORE: 0-UNK TRANSFERS: TUB: Activity did not occur on this shift TRANSFERS: TUB - SCORE: 0-UNK LOCOMOTION: WALK: Activity did not occur on this shift LOCOMOTION: WALK - SCORE: 0-UNK LOCOMOTION: WHEELCHAIR: Activity did not occur on this shift LOCOMOTION: WHEELCHAIR - SCORE: 0-UNK LOCOMOTION: STAIRS: Activity did not occur on this shift LOCOMOTION: STAIRS - SCORE: 0-UNK COMPREHENSION: COMPREHENSION: TYPE: Auditory COMPREHENSION - STEP 1: Does the patient require help from a person or device, or need extra time to understand complex and a bstract ideas (such as current events, finances, discharge planning, medical issues, relationships, e tc)? Yes. COMPREHENSION - STEP 2: Does the patient require help to understand questions or statements about basic needs or ideas (such as hunger, thirst, sleep, safety, daily schedule, room location, or discomfort) half or more of the t aneudy? No. COMPREHENSION - STEP 3: How often does the patient need help to understand directions and conversation about basic needs? 25% - 49% of the time COMPREHENSION - SCORE: 3-MOD EXPRESSION EXPRESSION: TYPE: Both EXPRESSION - STEP 1: Does the patient require help from a person or device, or need extra time expressing complex and abst ract ideas (such as current events, finances, discharge planning, medical issues, relationships, etc) ? Yes. EXPRESSION - STEP 2: Does the patient require help to express basic necessities or ideas (such as hunger, thirst, sleep, s afety, daily schedule, room location, or discomfort) half or more of the time? No. EXPRESSION - STEP 3: How often does the patient need help to express directions and conversation about basic needs? 25-49% of the time EXPRESSION - SCORE: 3-MOD SOCIAL INTERACTION: SOCIAL INTERACTION - STEP 1: Does the patient require a helper to interact with others in social and therapeutic situations? Yes. SOCIAL INTERACTION - STEP 2: Does the patient interact appropriately half or more of the time? Yes. SOCIAL INTERACTION - STEP 3: How often does the patient need help to interact appropriately? 25-49% of the time SOCIAL INTERACTION - SCORE: 3-MOD PROBLEM SOLVING: PROBLEM SOLVING - STEP 1: Does the patient need help from a person or device, or need extra time to solve complex problems such as managing a checking account or confronting interpersonal problems? Yes. PROBLEM SOLVING - STEP 2: Does the patient solve basic routine problems half or more of the time? No. PROBLEM SOLVING - STEP 3: Does the patient need help to solve problems all the time or is s/he unable to solve problems? No. Pa gerardnt can sometimes solve problems PROBLEM SOLVING - SCORE: 2-MAX MEMORY: MEMORY - STEP 1: Does the patient need help from a person or device, or need extra time to remember frequently encount ered people, daily routines, and executing requests? Yes. MEMORY - STEP 2: How often does the patient need help to remember frequently encountered people, daily routines, and e xecuting requests? More than 50% of the time MEMORY - STEP 3: Does the patient need help to remember all of the time OR does s/he not effectively recognize and rem ember? No. Patient does not need help all the time MEMORY - SCORE: 2-MAX SIGNATURE PANEL: The following modified sections: Eating - Score, Grooming - Score, Bathing - Score, Dressing - Upper Body - Score, Dressing - Lower Body - Score, Toileting - Score, Transfers: Bed, Chair, Wheelchair - S core, Transfers: Toilet - Score, Transfers: Shower - Score, Transfers: Tub - Score, Comprehension - S core, Expression - Score, Social Interaction - Score, Problem Solving - Score, Memory - Score were [e lectronically] signed by Dora Seth OT on ThuJul 09 2018 11:17:29 [facility]-0500 ([facility] ylight Time)
--- NOTE | 2018-07-09 13:22 | FAST ---
SHIFT START DATE/TIME: 07/09/2018 07:00 (CDT) SHIFT END DATE/TIME: 07/09/2018 19:00 (CDT) NAME PRICE ROGERS DATE OF : 1940 DATE OF ADMISSION: 07/05/2018 18:33 (CDT) PHONE: AGE: 78 N# [id number] GENDER: Male ENCOUNTER PHYSICIAN: Dr. Abdirahman Zepeda M.D. 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 EATING: EATING - STEP 1: Does the patient require the assistance of a person or device, or need extra time when eating? No. EATING - SCORE: 7-IND GROOMING: Activity did not occur on this shift GROOMING - SCORE: 0-UNK BATHING: Activity did not occur on this shift BATHING - SCORE: 0-UNK DRESSING - UPPER BODY: Activity did not occur on this shift ARTICLES SCORE Total number of steps: 0 DRESSING - UPPER BODY - SCORE: 0-UNK DRESSING - LOWER BODY: Activity did not occur on this shift ARTICLES SCORE Total number of steps: 0 DRESSING - LOWER BODY - SCORE: 0-UNK TOILETING: TOILETING - STEP 1: Does the patient require the assistance of a person or device, or need extra time with toileting? Yes . TOILETING - STEP 2: Does the patient require the assistance of a helper? Yes. TOILETING - STEP 3: How much assistance does the patient require from the helper? Hands-on assistance from the helper TOILETING - STEP 4: Of the 3 tasks: 1) Adjusting clothing prior to use, 2) Cleansing of perineal area, 3) Adjusting clot merissa after use; How many tasks does the patient perform WITHOUT assistance of the helper? No tasks; h elper performs all three tasks TOILETING - SCORE: 1-DEP BLADDER MANAGEMENT: Martin removes incontinent device (Depends, pull ups, etc.); cleans the patient after accident / inco ntinent episode; and, applies new incontinent device. BLADDER MANAGEMENT - SCORE: 1-DEP BLADDER MANAGEMENT - FREQUENCY OF ACCIDENTS: BLADDER MANAGEMENT(FA) - STEP 1: How many accidents has the patient had during the current shift? 0 BOWEL MANAGEMENT: Martin removes incontinent device (depends, pull ups, etc.); cleans the patient after accident / inco ntinent episode; and, applies new device (depends, pull-ups, padding, etc.). BOWEL MANAGEMENT - SCORE: 1-DEP BOWEL MANAGEMENT - FREQUENCY OF ACCIDENTS: BOWEL MANAGEMENT(FA) - STEP 1: How many accidents has the patient had during the current shift? 0 TRANSFERS: BED, CHAIR, WHEELCHAIR: TRANSFERS: BED, CHAIR, WHEELCHAIR - STEP 1: Does the patient require assistance of a person or device, or need extra time with bed, chair, or whe elchair transfers? Yes. TRANSFERS: BED, CHAIR, WHEELCHAIR - STEP 2: Does the patient require the assistance of a helper? Yes. TRANSFERS: BED, CHAIR, WHEELCHAIR - STEP 3: How much assistance does the patient require from the helper? Lifting of the patient TRANSFERS: BED, CHAIR, WHEELCHAIR - STEP 4: Does the helper lift the patient ONLY up? ONLY down? Up AND Down? Patient needs help with all lifting TRANSFERS: BED, CHAIR, WHEELCHAIR - SCORE: 1-DEP TRANSFERS: TOILET: TRANSFERS: TOILET - STEP 1: Does the patient require the assistance of a person or device, or need extra time with toilet transfe rs? Yes. TRANSFERS: TOILET - STEP 2: Does the patient require the assistance of a helper? Yes. TRANSFERS: TOILET - STEP 3: How much assistance does the patient require from the helper? Patient performs less than half of the transferring tasks TRANSFERS: TOILET - STEP 4: Does the patient require total assistance for the toilet transfer such as the helper doing basically all the lifting? Yes. TRANSFERS: TOILET - SCORE: 1-DEP TRANSFERS: SHOWER: Activity did not occur on this shift TRANSFERS: SHOWER - SCORE: 0-UNK TRANSFERS: TUB: Activity did not occur on this shift TRANSFERS: TUB - SCORE: 0-UNK LOCOMOTION: WALK: Activity did not occur on this shift LOCOMOTION: WALK - SCORE: 0-UNK LOCOMOTION: WHEELCHAIR: Activity did not occur on this shift LOCOMOTION: WHEELCHAIR - SCORE: 0-UNK COMPREHENSION: COMPREHENSION - SCORE: 0-UNK EXPRESSION EXPRESSION - SCORE: 0-UNK SOCIAL INTERACTION: SOCIAL INTERACTION - SCORE: 0-UNK PROBLEM SOLVING: PROBLEM SOLVING - SCORE: 0-UNK MEMORY: MEMORY - SCORE: 0-UNK SIGNATURE PANEL: The following modified sections: Eating - Score, Grooming - Score, Bathing - Score, Dressing - Upper Body - Score, Dressing - Lower Body - Score, Toileting - Score, Bladder Management - Score, Bowel Man agement - Score, Transfers: Bed, Chair, Wheelchair - Score, Transfers: Toilet - Score, Transfers: Melissa wer - Score, Transfers: Tub - Score, Locomotion: Walk - Score, Locomotion: Wheelchair - Score, Compre hension - Score, Expression - Score, Social Interaction - Score, Problem Solving - Score, Memory - Sc ore were [electronically] signed by Pily Conrad CNA on ThuJul 09 2018 13:21:10 T-0500 ([facility])
--- NOTE | 2018-07-09 14:18 | FAST ---
ENCOUNTER DATE AND TIME: 07/07/2018 08:00 (CDT) NAME PRICE ROGERS DATE OF : 1940 DATE OF ADMISSION: 07/05/2018 18:33 (CDT) PHONE: AGE: 78 SSN# [id number] GENDER: Male ENCOUNTER PHYSICIAN: Dr. Abdirahman Zepeda M.D. 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 EATING: Activity did not occur on this shift EATING - SCORE: 0-UNK GROOMING: Activity did not occur on this shift GROOMING - SCORE: 0-UNK BATHING: Activity did not occur on this shift BATHING - SCORE: 0-UNK DRESSING - UPPER BODY: Activity did not occur on this shift Patient is not dressing in public clothing ARTICLES SCORE Total number of steps: 0 DRESSING - UPPER BODY - SCORE: 0-UNK DRESSING - LOWER BODY: Activity did not occur on this shift Patient is not dressing in public clothing ARTICLES SCORE Total number of steps: 0 DRESSING - LOWER BODY - SCORE: 0-UNK TOILETING: Activity did not occur on this shift TOILETING - SCORE: 0-UNK BLADDER MANAGEMENT: Activity did not occur on this shift BLADDER MANAGEMENT - SCORE: 7-IND BOWEL MANAGEMENT: Activity did not occur on this shift BOWEL MANAGEMENT - SCORE: 7-IND TRANSFERS: BED, CHAIR, WHEELCHAIR: Patient requires more than one helper and/or the use of a mechanical lift is utilized TRANSFERS: BED, CHAIR, WHEELCHAIR - SCORE: 1-DEP TRANSFERS: TOILET: Activity did not occur on this shift TRANSFERS: TOILET - SCORE: 0-UNK TRANSFERS: SHOWER: Activity did not occur on this shift TRANSFERS: SHOWER - SCORE: 0-UNK TRANSFERS: TUB: Activity did not occur on this shift TRANSFERS: TUB - SCORE: 0-UNK LOCOMOTION: WALK: Activity did not occur on this shift LOCOMOTION: WALK - SCORE: 0-UNK LOCOMOTION: WHEELCHAIR: Activity did not occur on this shift LOCOMOTION: WHEELCHAIR - SCORE: 0-UNK LOCOMOTION: STAIRS: Activity did not occur on this shift LOCOMOTION: STAIRS - SCORE: 0-UNK COMPREHENSION: COMPREHENSION - SCORE: 0-UNK EXPRESSION EXPRESSION - SCORE: 0-UNK SOCIAL INTERACTION: SOCIAL INTERACTION - SCORE: 0-UNK PROBLEM SOLVING: PROBLEM SOLVING - SCORE: 0-UNK MEMORY: MEMORY - SCORE: 0-UNK SIGNATURE PANEL: The following modified sections: Transfers: Bed, Chair, Wheelchair - Score, Transfers: Toilet - Score , Locomotion: Walk - Score, Locomotion: Wheelchair - Score, Locomotion: Stairs - Score were [electron ically] signed by Lorne Garcia PTA on ThuJul 09 2018 14:16:54 GMT-0500 (Central Daylight Time)
--- NOTE | 2018-07-09 14:26 | FAST ---
ENCOUNTER DATE AND TIME: 07/08/2018 08:00 (CDT) NAME PRICE ROGERS DATE OF : 1940 DATE OF ADMISSION: 07/05/2018 18:33 (CDT) PHONE: AGE: 78 SSN# [id number] GENDER: Male ENCOUNTER PHYSICIAN: Dr. Abdirahman Zepeda M.D. 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 EATING: Activity did not occur on this shift EATING - SCORE: 0-UNK GROOMING: Activity did not occur on this shift GROOMING - SCORE: 0-UNK BATHING: Activity did not occur on this shift BATHING - SCORE: 0-UNK DRESSING - UPPER BODY: Activity did not occur on this shift Patient is not dressing in public clothing ARTICLES SCORE Total number of steps: 0 DRESSING - UPPER BODY - SCORE: 0-UNK DRESSING - LOWER BODY: Activity did not occur on this shift Patient is not dressing in public clothing ARTICLES SCORE Total number of steps: 0 DRESSING - LOWER BODY - SCORE: 0-UNK TOILETING: Activity did not occur on this shift TOILETING - SCORE: 0-UNK BLADDER MANAGEMENT: Activity did not occur on this shift BLADDER MANAGEMENT - SCORE: 7-IND BOWEL MANAGEMENT: Activity did not occur on this shift BOWEL MANAGEMENT - SCORE: 7-IND TRANSFERS: BED, CHAIR, WHEELCHAIR: Patient requires more than one helper and/or the use of a mechanical lift is utilized TRANSFERS: BED, CHAIR, WHEELCHAIR - SCORE: 1-DEP TRANSFERS: TOILET: Activity did not occur on this shift TRANSFERS: TOILET - SCORE: 0-UNK TRANSFERS: SHOWER: Activity did not occur on this shift TRANSFERS: SHOWER - SCORE: 0-UNK TRANSFERS: TUB: Activity did not occur on this shift TRANSFERS: TUB - SCORE: 0-UNK LOCOMOTION: WALK: Activity did not occur on this shift LOCOMOTION: WALK - SCORE: 0-UNK LOCOMOTION: WHEELCHAIR: Activity did not occur on this shift LOCOMOTION: WHEELCHAIR - SCORE: 0-UNK LOCOMOTION: STAIRS: Activity did not occur on this shift LOCOMOTION: STAIRS - SCORE: 0-UNK COMPREHENSION: COMPREHENSION - SCORE: 0-UNK EXPRESSION EXPRESSION - SCORE: 0-UNK SOCIAL INTERACTION: SOCIAL INTERACTION - SCORE: 0-UNK PROBLEM SOLVING: PROBLEM SOLVING - SCORE: 0-UNK MEMORY: MEMORY - SCORE: 0-UNK SIGNATURE PANEL: The following modified sections: Transfers: Bed, Chair, Wheelchair - Score, Transfers: Toilet - Score , Locomotion: Walk - Score, Locomotion: Wheelchair - Score, Locomotion: Stairs - Score were [electron ically] signed by Lorne Garcia PTA on ThuJul 09 2018 14:25:32 GMT-0500 (Central Daylight Time)
--- NOTE | 2018-07-09 14:49 | FAST ---
ENCOUNTER DATE AND TIME: 07/09/2018 08:00 (CDT) NAME PRICE ROGERS DATE OF : 1940 DATE OF ADMISSION: 07/05/2018 18:33 (CDT) PHONE: AGE: 78 SSN# [id number] GENDER: Male ENCOUNTER PHYSICIAN: Dr. Abdirahman Zepeda M.D. 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 EATING: Activity did not occur on this shift EATING - SCORE: 0-UNK GROOMING: Activity did not occur on this shift GROOMING - SCORE: 0-UNK BATHING: Activity did not occur on this shift BATHING - SCORE: 0-UNK DRESSING - UPPER BODY: Activity did not occur on this shift Patient is not dressing in public clothing ARTICLES SCORE Total number of steps: 0 DRESSING - UPPER BODY - SCORE: 0-UNK DRESSING - LOWER BODY: Activity did not occur on this shift Patient is not dressing in public clothing ARTICLES SCORE Total number of steps: 0 DRESSING - LOWER BODY - SCORE: 0-UNK TOILETING: Activity did not occur on this shift TOILETING - SCORE: 0-UNK BLADDER MANAGEMENT: Activity did not occur on this shift BLADDER MANAGEMENT - SCORE: 7-IND BOWEL MANAGEMENT: Activity did not occur on this shift BOWEL MANAGEMENT - SCORE: 7-IND TRANSFERS: BED, CHAIR, WHEELCHAIR: TRANSFERS: BED, CHAIR, WHEELCHAIR - STEP 1: Does the patient require assistance of a person or device, or need extra time with bed, chair, or whe elchair transfers? Yes. TRANSFERS: BED, CHAIR, WHEELCHAIR - STEP 2: Does the patient require the assistance of a helper? Yes. TRANSFERS: BED, CHAIR, WHEELCHAIR - STEP 3: How much assistance does the patient require from the helper? Lifting of the patient TRANSFERS: BED, CHAIR, WHEELCHAIR - STEP 4: Does the helper lift the patient ONLY up? ONLY down? Up AND Down? Up AND Down. TRANSFERS: BED, CHAIR, WHEELCHAIR - SCORE: 2-MAX TRANSFERS: TOILET: Activity did not occur on this shift TRANSFERS: TOILET - SCORE: 0-UNK TRANSFERS: SHOWER: Activity did not occur on this shift TRANSFERS: SHOWER - SCORE: 0-UNK TRANSFERS: TUB: Activity did not occur on this shift TRANSFERS: TUB - SCORE: 0-UNK LOCOMOTION: WALK: Activity did not occur on this shift LOCOMOTION: WALK - SCORE: 0-UNK LOCOMOTION: WHEELCHAIR: Activity did not occur on this shift LOCOMOTION: WHEELCHAIR - SCORE: 0-UNK LOCOMOTION: STAIRS: Activity did not occur on this shift LOCOMOTION: STAIRS - SCORE: 0-UNK COMPREHENSION: COMPREHENSION - SCORE: 0-UNK EXPRESSION EXPRESSION - SCORE: 0-UNK SOCIAL INTERACTION: SOCIAL INTERACTION - SCORE: 0-UNK PROBLEM SOLVING: PROBLEM SOLVING - SCORE: 0-UNK MEMORY: MEMORY - SCORE: 0-UNK SIGNATURE PANEL: The following modified sections: Transfers: Bed, Chair, Wheelchair - Score, Transfers: Toilet - Score , Locomotion: Walk - Score, Locomotion: Wheelchair - Score, Locomotion: Stairs - Score were [electron icallshelbie] signed by Lorne Garcia PTA on ThuJul 09 2018 14:48:55 GMT-0500 (Central Daylight Time)
[2018-07-09] MEDS: ATORVASTATIN 10 MG TAB PO SCH (20:49)
[2018-07-09] MEDS: DOCUSATE NA/SENNA CONC 1 TAB PO SCH (20:49)
[2018-07-09] MEDS: HYDROCODONE/APAP 5/325 MG TAB PO PRN (20:50)
--- NOTE | 2018-07-10 02:15 | FAST ---
SHIFT START DATE/TIME: 07/09/2018 19:00 (CDT) SHIFT END DATE/TIME: 07/10/2018 07:00 (CDT) NAME PRICE ROGERS DATE OF : 1940 DATE OF ADMISSION: 07/05/2018 18:33 (CDT) PHONE: AGE: 78 N# [id number] GENDER: Male ENCOUNTER PHYSICIAN: Dr. Abdirahman Zepeda M.D. 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 EATING: Activity did not occur on this shift EATING - SCORE: 0-UNK GROOMING: Activity did not occur on this shift GROOMING - SCORE: 0-UNK BATHING: Activity did not occur on this shift BATHING - SCORE: 0-UNK DRESSING - UPPER BODY: Patient is not dressing in public clothing ARTICLES SCORE Total number of steps: 0 DRESSING - UPPER BODY - SCORE: 0-UNK DRESSING - LOWER BODY: Patient is not dressing in public clothing ARTICLES SCORE Total number of steps: 0 DRESSING - LOWER BODY - SCORE: 0-UNK TOILETING: TOILETING - STEP 1: Does the patient require the assistance of a person or device, or need extra time with toileting? Yes . TOILETING - STEP 2: Does the patient require the assistance of a helper? Yes. TOILETING - STEP 3: How much assistance does the patient require from the helper? Hands-on assistance from the helper TOILETING - STEP 4: Of the 3 tasks: 1) Adjusting clothing prior to use, 2) Cleansing of perineal area, 3) Adjusting clot merissa after use; How many tasks does the patient perform WITHOUT assistance of the helper? No tasks; h raquel performs all three tasks TOILETING - SCORE: 1-DEP BLADDER MANAGEMENT: BLADDER MANAGEMENT - STEP 1: Does the patient control the bladder completely and intentionally without equipment or devices or med ications, and is always continent? No. BLADDER MANAGEMENT - STEP 2: Does the patient require the assistance of a helper? Yes. BLADDER MANAGEMENT - STEP 3: How much assistance does the patient require from the helper? Patient requires contact assistance fro m the helper BLADDER MANAGEMENT - STEP 4: How much contact assistance does the patient require from the helper? Patient requires minimal assist ance to maintain an external device - by positioning, and the patient performs 75% or more of bladder management tasks, while the helper provides less than 25% of the assistance to position patient on / off bedpan BLADDER MANAGEMENT - SCORE: 4-MIN BOWEL MANAGEMENT: Activity did not occur on this shift BOWEL MANAGEMENT - SCORE: 7-IND TRANSFERS: BED, CHAIR, WHEELCHAIR: Activity did not occur on this shift TRANSFERS: BED, CHAIR, WHEELCHAIR - SCORE: 0-UNK TRANSFERS: TOILET: Activity did not occur on this shift TRANSFERS: TOILET - SCORE: 0-UNK TRANSFERS: SHOWER: Activity did not occur on this shift TRANSFERS: SHOWER - SCORE: 0-UNK TRANSFERS: TUB: Activity did not occur on this shift TRANSFERS: TUB - SCORE: 0-UNK LOCOMOTION: WALK: Activity did not occur on this shift LOCOMOTION: WALK - SCORE: 0-UNK LOCOMOTION: WHEELCHAIR: Activity did not occur on this shift LOCOMOTION: WHEELCHAIR - SCORE: 0-UNK COMPREHENSION: COMPREHENSION: TYPE: Both COMPREHENSION - STEP 1: Does the patient require help from a person or device, or need extra time to understand complex and a bstract ideas (such as current events, finances, discharge planning, medical issues, relationships, e tc)? No. COMPREHENSION - STEP 2: Does the patient need extra time, require an assistive device (such as glasses for visual comprehensi on or a hearing aid for auditory comprehension) or does s/he have mild difficulty understanding compl ex and abstract information? Yes. COMPREHENSION - SCORE: 6-SILVESTRE EXPRESSION EXPRESSION: TYPE: Both EXPRESSION - STEP 1: Does the patient require help from a person or device, or need extra time expressing complex and abst ract ideas (such as current events, finances, discharge planning, medical issues, relationships, etc) ? No. EXPRESSION - STEP 2: Does the patient need extra time, require an assistive device (such as augmentive communication syste m or a communication board), OR does s/he have mild difficulty expressing complex and abstract ideas (including mild dysarthria or mild word-find problems)? Yes. EXPRESSION - SCORE: 6-SILVESTRE SOCIAL INTERACTION: SOCIAL INTERACTION - STEP 1: Does the patient require a helper to interact with others in social and therapeutic situations? No. SOCIAL INTERACTION - STEP 2: Does the patient need extra time in social situations, OR does s/he interact with staff, other patien ts, and family members ONLY in structured environments, OR does s/he require medication for social in teraction? Yes, patient needs extra time SOCIAL INTERACTION - SCORE: 6-SILVESTRE PROBLEM SOLVING: PROBLEM SOLVING - STEP 1: Does the patient need help from a person or device, or need extra time to solve complex problems such as managing a checking account or confronting interpersonal problems? Yes. PROBLEM SOLVING - STEP 2: Does the patient solve basic routine problems half or more of the time? Yes. PROBLEM SOLVING - STEP 3: How often does the patient need help to solve basic routine problems? 25%-49% of the time PROBLEM SOLVING - SCORE: 3-MOD MEMORY: MEMORY - STEP 1: Does the patient need help from a person or device, or need extra time to remember frequently encount ered people, daily routines, and executing requests? No. MEMORY - STEP 2: Does the patient have slight difficulty recognizing frequently encountered people, daily routines, or executing requests without the need for repetition or using self-initiated or environmental cues to remember? Yes. MEMORY - SCORE: 6-SILVESTRE
[2018-07-10] MEDS: CITALOPRAM 10 MG TABLET PO SCH (08:38)
[2018-07-10] MEDS: VALSARTAN 80 MG TAB PO SCH (08:38)
[2018-07-10] MEDS: GABAPENTIN 300 MG CAP PO SCH ×2 (08:38→20:20)
[2018-07-10] MEDS: APIXABAN 2.5 MG TABLET PO SCH ×2 (08:39→20:20)
[2018-07-10] MEDS: FLECAINIDE 100 MG TAB PO SCH ×2 (08:39→20:21)
[2018-07-10] MEDS: FUROSEMIDE 20 MG TABLET PO SCH (08:39)
[2018-07-10] MEDS: ASPIRIN 81 MG CHEWABLE TABLET PO SCH (08:39)
[2018-07-10] MEDS: LISINOPRIL 5 MG TAB PO SCH (08:40)
[2018-07-10] MEDS: ACETAMINOPHEN 500 MG TAB PO PRN (08:41)
[2018-07-10] MEDS: BISACODYL 10 MG RECTAL SUPP PR PRN (08:53)
--- NOTE | 2018-07-10 11:07 | FAST ---
SHIFT START DATE/TIME: 07/10/2018 07:00 (CDT) SHIFT END DATE/TIME: 07/10/2018 19:00 (CDT) NAME PRICE ROGERS DATE OF : 1940 DATE OF ADMISSION: 07/05/2018 18:33 (CDT) PHONE: AGE: 78 N# [id number] GENDER: Male ENCOUNTER PHYSICIAN: Dr. Abdirahman Zepeda M.D. 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 EATING: EATING - STEP 1: Does the patient require the assistance of a person or device, or need extra time when eating? Yes. EATING - STEP 2: Does the patient require the assistance of a helper? Yes. EATING - STEP 3: Does the patient perform half or more of the eating tasks? Yes. EATING - STEP 4: Does the patient need only supervision, cuing, coaxing OR help to apply an orthosis OR help to cut fo od, open containers, pour liquids, or butter bread? Yes. EATING - SCORE: 5-SUP GROOMING: Activity did not occur on this shift GROOMING - SCORE: 0-UNK BATHING: Activity did not occur on this shift BATHING - SCORE: 0-UNK DRESSING - UPPER BODY: Activity did not occur on this shift ARTICLES SCORE Total number of steps: 0 DRESSING - UPPER BODY - SCORE: 0-UNK DRESSING - LOWER BODY: Activity did not occur on this shift ARTICLES SCORE Total number of steps: 0 DRESSING - LOWER BODY - SCORE: 0-UNK TOILETING: TOILETING - STEP 1: Does the patient require the assistance of a person or device, or need extra time with toileting? Yes . TOILETING - STEP 2: Does the patient require the assistance of a helper? Yes. TOILETING - STEP 3: How much assistance does the patient require from the helper? Hands-on assistance from the helper TOILETING - STEP 4: Of the 3 tasks: 1) Adjusting clothing prior to use, 2) Cleansing of perineal area, 3) Adjusting clot merissa after use; How many tasks does the patient perform WITHOUT assistance of the helper? No tasks; h elper performs all three tasks TOILETING - SCORE: 1-DEP BLADDER MANAGEMENT: Clayton removes incontinent device (Depends, pull ups, etc.); cleans the patient after accident / inco ntinent episode; and, applies new incontinent device. BLADDER MANAGEMENT - SCORE: 1-DEP BOWEL MANAGEMENT: Clayton removes incontinent device (depends, pull ups, etc.); cleans the patient after accident / inco ntinent episode; and, applies new device (depends, pull-ups, padding, etc.). BOWEL MANAGEMENT - SCORE: 1-DEP TRANSFERS: BED, CHAIR, WHEELCHAIR: Patient requires more than one helper and/or the use of a mechanical lift is utilized TRANSFERS: BED, CHAIR, WHEELCHAIR - SCORE: 1-DEP TRANSFERS: TOILET: Patient requires more than one helper and/or the use of a mechanical lift is utilized TRANSFERS: TOILET - SCORE: 1-DEP TRANSFERS: SHOWER: Activity did not occur on this shift TRANSFERS: SHOWER - SCORE: 0-UNK TRANSFERS: TUB: Activity did not occur on this shift TRANSFERS: TUB - SCORE: 0-UNK LOCOMOTION: WALK: Activity did not occur on this shift LOCOMOTION: WALK - SCORE: 0-UNK LOCOMOTION: WHEELCHAIR: Activity did not occur on this shift LOCOMOTION: WHEELCHAIR - SCORE: 0-UNK COMPREHENSION: COMPREHENSION - SCORE: 0-UNK EXPRESSION EXPRESSION - SCORE: 0-UNK SOCIAL INTERACTION: SOCIAL INTERACTION - SCORE: 0-UNK PROBLEM SOLVING: PROBLEM SOLVING - SCORE: 0-UNK MEMORY: MEMORY - SCORE: 0-UNK SIGNATURE PANEL: The following modified sections: Eating - Score, Grooming - Score, Bathing - Score, Dressing - Upper Body - Score, Dressing - Lower Body - Score, Toileting - Score, Bladder Management - Score, Bowel Man agement - Score, Transfers: Bed, Chair, Wheelchair - Score, Transfers: Toilet - Score, Transfers: Melissa wer - Score, Transfers: Tub - Score, Locomotion: Walk - Score, Locomotion: Wheelchair - Score, Compre hension - Score, Expression - Score, Social Interaction - Score, Problem Solving - Score, Memory - Sc ore were [electronically] signed by Wilmar Arboleda on ThuJul 10 2018 11:06:43 GMT-0500 (Central Daylight Time)
[2018-07-10] MEDS: HYDROCODONE/APAP 5/325 MG TAB PO PRN ×2 (11:53→17:01)
--- NOTE | 2018-07-10 12:47 | FAST ---
ENCOUNTER DATE AND TIME: 07/10/2018 08:00 (CDT) NAME PRICE ROGERS DATE OF : 1940 DATE OF ADMISSION: 07/05/2018 18:33 (CDT) PHONE: AGE: 78 SSN# [id number] GENDER: Male ENCOUNTER PHYSICIAN: Dr. Abdirahman Zepeda M.D. 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 EATING: Activity did not occur on this shift EATING - SCORE: 0-UNK GROOMING: Comb/brush hair Oral care Wash, rinse, and dry face GROOMING - STEP 1: Does the patient require the assistance of a person or device, or need extra time when grooming? Yes. GROOMING - STEP 2: Does the patient require the assistance of a helper? Yes. GROOMING - STEP 3: How much assistance does the patient require from the helper? Only prior equipment preparation/set up from the helper GROOMING - SCORE: 5-SUP BATHING: Abdomen Buttocks Chest Left arm Left lower leg and foot Left upper leg Perineal area Right arm Right lower leg and foot Right upper leg BATHING - STEP 1: Does the patient require the assistance of a person or device, or need extra time when bathing? Yes. BATHING - STEP 2: Does the patient require the assistance of a helper? Yes. BATHING - STEP 3: How much assistance does the patient require from the helper? More than just incidental help BATHING - STEP 4: What percent of the body parts did the patient bathe WITHOUT the helper? Half or more of the body par ts BATHING - SCORE: 3-MOD BATHING - COMMENTS: Able to bathe 7/10 body parts with setup and prompting but required assist to wash RUE, buttocks, and perineal. DRESSING - UPPER BODY: Activity did not occur on this shift ARTICLES SCORE Total number of steps: 0 DRESSING - UPPER BODY - SCORE: 0-UNK DRESSING - UPPER BODY - COMMENTS: Donned gown with Mod A to thread LUE and pull down DRESSING - LOWER BODY: Activity did not occur on this shift ARTICLES SCORE Total number of steps: 0 DRESSING - LOWER BODY - SCORE: 0-UNK TOILETING: Activity did not occur on this shift TOILETING - SCORE: 0-UNK BLADDER MANAGEMENT: Activity did not occur on this shift BLADDER MANAGEMENT - SCORE: 7-IND BOWEL MANAGEMENT: Activity did not occur on this shift BOWEL MANAGEMENT - SCORE: 7-IND TRANSFERS: BED, CHAIR, WHEELCHAIR: Patient requires more than one helper and/or the use of a mechanical lift is utilized TRANSFERS: BED, CHAIR, WHEELCHAIR - SCORE: 1-DEP TRANSFERS: TOILET: Patient requires more than one helper and/or the use of a mechanical lift is utilized TRANSFERS: TOILET - SCORE: 1-DEP TRANSFERS: SHOWER: After patient transfers from bed to shower chair on wheels, the helper pushes the chair into the walk -in shower TRANSFERS: SHOWER - SCORE: 1-DEP TRANSFERS: TUB: Activity did not occur on this shift TRANSFERS: TUB - SCORE: 0-UNK LOCOMOTION: WALK: Activity did not occur on this shift LOCOMOTION: WALK - SCORE: 0-UNK LOCOMOTION: WHEELCHAIR: Activity did not occur on this shift LOCOMOTION: WHEELCHAIR - SCORE: 0-UNK LOCOMOTION: STAIRS: Activity did not occur on this shift LOCOMOTION: STAIRS - SCORE: 0-UNK COMPREHENSION: COMPREHENSION: TYPE: Both COMPREHENSION - STEP 1: Does the patient require help from a person or device, or need extra time to understand complex and a bstract ideas (such as current events, finances, discharge planning, medical issues, relationships, e tc)? No. COMPREHENSION - STEP 2: Does the patient need extra time, require an assistive device (such as glasses for visual comprehensi on or a hearing aid for auditory comprehension) or does s/he have mild difficulty understanding compl ex and abstract information? No. COMPREHENSION - SCORE: 7-IND EXPRESSION EXPRESSION: TYPE: Both EXPRESSION - STEP 1: Does the patient require help from a person or device, or need extra time expressing complex and abst ract ideas (such as current events, finances, discharge planning, medical issues, relationships, etc) ? No. EXPRESSION - STEP 2: Does the patient need extra time, require an assistive device (such as augmentive communication syste m or a communication board), OR does s/he have mild difficulty expressing complex and abstract ideas (including mild dysarthria or mild word-find problems)? Yes. EXPRESSION - SCORE: 6-SILVESTRE SOCIAL INTERACTION: SOCIAL INTERACTION - STEP 1: Does the patient require a helper to interact with others in social and therapeutic situations? No. SOCIAL INTERACTION - STEP 2: Does the patient need extra time in social situations, OR does s/he interact with staff, other patien ts, and family members ONLY in structured environments, OR does s/he require medication for social in teraction? No. SOCIAL INTERACTION - SCORE: 7-IND PROBLEM SOLVING: PROBLEM SOLVING - STEP 1: Does the patient need help from a person or device, or need extra time to solve complex problems such as managing a checking account or confronting interpersonal problems? Yes. PROBLEM SOLVING - STEP 2: Does the patient solve basic routine problems half or more of the time? Yes. PROBLEM SOLVING - STEP 3: How often does the patient need help to solve basic routine problems? Less than 10% of the time PROBLEM SOLVING - SCORE: 5-SUP MEMORY: MEMORY - STEP 1: Does the patient need help from a person or device, or need extra time to remember frequently encount ered people, daily routines, and executing requests? No. MEMORY - STEP 2: Does the patient have slight difficulty recognizing frequently encountered people, daily routines, or executing requests without the need for repetition or using self-initiated or environmental cues to remember? No. MEMORY - SCORE: 7-IND SIGNATURE PANEL: The following modified sections: Eating - Score, Grooming - Score, Bathing - Score, Bathing - Comment s:, Dressing - Upper Body - Score, Dressing - Upper Body - Comments:, Dressing - Lower Body - Score, Toileting - Score, Transfers: Bed, Chair, Wheelchair - Score, Transfers: Toilet - Score, Transfers: S hower - Score, Transfers: Tub - Score, Comprehension - Score, Expression - Score, Social Interaction - Score, Problem Solving - Score, Memory - Score were [electronically] signed by ROXANNE Logan on Sat Jul 10 2018 12:46:55 GMT-0500 (Central Daylight Time)
[2018-07-10] MEDS: ATORVASTATIN 10 MG TAB PO SCH (20:19)
[2018-07-10] MEDS: DOCUSATE NA/SENNA CONC 1 TAB PO SCH (20:20)
[2018-07-10] MEDS: MELATONIN 3 MG TABLET PO PRN (20:20)
--- NOTE | 2018-07-11 02:13 | FAST ---
SHIFT START DATE/TIME: 07/10/2018 19:00 (CDT) SHIFT END DATE/TIME: 07/11/2018 07:00 (CDT) NAME PRICE ROGERS DATE OF : 1940 DATE OF ADMISSION: 07/05/2018 18:33 (CDT) PHONE: AGE: 78 N# [id number] GENDER: Male ENCOUNTER PHYSICIAN: Dr. Abdirahman Zepeda M.D. 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 EATING: Activity did not occur on this shift EATING - SCORE: 0-UNK GROOMING: Activity did not occur on this shift GROOMING - SCORE: 0-UNK BATHING: Activity did not occur on this shift BATHING - SCORE: 0-UNK DRESSING - UPPER BODY: Patient is not dressing in public clothing ARTICLES SCORE Total number of steps: 0 DRESSING - UPPER BODY - SCORE: 0-UNK DRESSING - LOWER BODY: Patient is not dressing in public clothing ARTICLES SCORE Total number of steps: 0 DRESSING - LOWER BODY - SCORE: 0-UNK TOILETING: TOILETING - STEP 1: Does the patient require the assistance of a person or device, or need extra time with toileting? Yes . TOILETING - STEP 2: Does the patient require the assistance of a helper? Yes. TOILETING - STEP 3: How much assistance does the patient require from the helper? Hands-on assistance from the helper TOILETING - STEP 4: Of the 3 tasks: 1) Adjusting clothing prior to use, 2) Cleansing of perineal area, 3) Adjusting clot merissa after use; How many tasks does the patient perform WITHOUT assistance of the helper? No tasks; h raquel performs all three tasks TOILETING - SCORE: 1-DEP BLADDER MANAGEMENT: BLADDER MANAGEMENT - STEP 1: Does the patient control the bladder completely and intentionally without equipment or devices or med ications, and is always continent? No. BLADDER MANAGEMENT - STEP 2: Does the patient require the assistance of a helper? Yes. BLADDER MANAGEMENT - STEP 3: How much assistance does the patient require from the helper? Patient requires contact assistance fro m the helper BLADDER MANAGEMENT - STEP 4: How much contact assistance does the patient require from the helper? Patient requires moderate mary tance, and performs 50% to 75% of bladder management tasks - Troy positions AND holds urinal or bed benítez BLADDER MANAGEMENT - SCORE: 3-MOD BOWEL MANAGEMENT: Activity did not occur on this shift BOWEL MANAGEMENT - SCORE: 7-IND TRANSFERS: BED, CHAIR, WHEELCHAIR: Activity did not occur on this shift TRANSFERS: BED, CHAIR, WHEELCHAIR - SCORE: 0-UNK TRANSFERS: TOILET: Activity did not occur on this shift TRANSFERS: TOILET - SCORE: 0-UNK TRANSFERS: SHOWER: Activity did not occur on this shift TRANSFERS: SHOWER - SCORE: 0-UNK TRANSFERS: TUB: Activity did not occur on this shift TRANSFERS: TUB - SCORE: 0-UNK LOCOMOTION: WALK: Activity did not occur on this shift LOCOMOTION: WALK - SCORE: 0-UNK LOCOMOTION: WHEELCHAIR: Activity did not occur on this shift LOCOMOTION: WHEELCHAIR - SCORE: 0-UNK COMPREHENSION: COMPREHENSION: TYPE: Both COMPREHENSION - STEP 1: Does the patient require help from a person or device, or need extra time to understand complex and a bstract ideas (such as current events, finances, discharge planning, medical issues, relationships, e tc)? No. COMPREHENSION - STEP 2: Does the patient need extra time, require an assistive device (such as glasses for visual comprehensi on or a hearing aid for auditory comprehension) or does s/he have mild difficulty understanding compl ex and abstract information? Yes. COMPREHENSION - SCORE: 6-SILVESTRE EXPRESSION EXPRESSION: TYPE: Both EXPRESSION - STEP 1: Does the patient require help from a person or device, or need extra time expressing complex and abst ract ideas (such as current events, finances, discharge planning, medical issues, relationships, etc) ? No. EXPRESSION - STEP 2: Does the patient need extra time, require an assistive device (such as augmentive communication syste m or a communication board), OR does s/he have mild difficulty expressing complex and abstract ideas (including mild dysarthria or mild word-find problems)? Yes. EXPRESSION - SCORE: 6-SILVESTRE SOCIAL INTERACTION: SOCIAL INTERACTION - STEP 1: Does the patient require a helper to interact with others in social and therapeutic situations? No. SOCIAL INTERACTION - STEP 2: Does the patient need extra time in social situations, OR does s/he interact with staff, other patien ts, and family members ONLY in structured environments, OR does s/he require medication for social in teraction? Yes, patient needs extra time SOCIAL INTERACTION - SCORE: 6-SILVESTRE PROBLEM SOLVING: PROBLEM SOLVING - STEP 1: Does the patient need help from a person or device, or need extra time to solve complex problems such as managing a checking account or confronting interpersonal problems? Yes. PROBLEM SOLVING - STEP 2: Does the patient solve basic routine problems half or more of the time? Yes. PROBLEM SOLVING - STEP 3: How often does the patient need help to solve basic routine problems? 25%-49% of the time PROBLEM SOLVING - SCORE: 3-MOD MEMORY: MEMORY - STEP 1: Does the patient need help from a person or device, or need extra time to remember frequently encount ered people, daily routines, and executing requests? No. MEMORY - STEP 2: Does the patient have slight difficulty recognizing frequently encountered people, daily routines, or executing requests without the need for repetition or using self-initiated or environmental cues to remember? Yes. MEMORY - SCORE: 6-SILVESTRE
[2018-07-11] MEDS: HYDROCODONE/APAP 5/325 MG TAB PO PRN ×2 (08:22→19:23)
[2018-07-11] MEDS: FLECAINIDE 100 MG TAB PO SCH ×2 (08:41→19:23)
[2018-07-11] MEDS: VALSARTAN 80 MG TAB PO SCH (08:44)
[2018-07-11] MEDS: FUROSEMIDE 20 MG TABLET PO SCH (08:44)
[2018-07-11] MEDS: ASPIRIN 81 MG CHEWABLE TABLET PO SCH (08:44)
[2018-07-11] MEDS: GABAPENTIN 300 MG CAP PO SCH ×2 (08:45→19:23)
[2018-07-11] MEDS: LISINOPRIL 5 MG TAB PO SCH (08:45)
[2018-07-11] MEDS: APIXABAN 2.5 MG TABLET PO SCH ×2 (08:46→19:23)
[2018-07-11] MEDS: CITALOPRAM 10 MG TABLET PO SCH (08:46)
--- NOTE | 2018-07-11 10:18 | FAST ---
SHIFT START DATE/TIME: 07/11/2018 07:00 (CDT) SHIFT END DATE/TIME: 07/11/2018 19:00 (CDT) NAME PRICE ROGERS DATE OF : 1940 DATE OF ADMISSION: 07/05/2018 18:33 (CDT) PHONE: AGE: 78 N# [id number] GENDER: Male ENCOUNTER PHYSICIAN: Dr. Abdirahman Zepeda M.D. 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 EATING: EATING - STEP 1: Does the patient require the assistance of a person or device, or need extra time when eating? Yes. EATING - STEP 2: Does the patient require the assistance of a helper? Yes. EATING - STEP 3: Does the patient perform half or more of the eating tasks? Yes. EATING - STEP 4: Does the patient need only supervision, cuing, coaxing OR help to apply an orthosis OR help to cut fo od, open containers, pour liquids, or butter bread? Yes. EATING - SCORE: 5-SUP GROOMING: Comb/brush hair Oral care Patient shaved GROOMING - STEP 1: Does the patient require the assistance of a person or device, or need extra time when grooming? Yes. GROOMING - STEP 2: Does the patient require the assistance of a helper? Yes. GROOMING - STEP 3: How much assistance does the patient require from the helper? Cuing, coaxing, instructions, or encour agement for completion of grooming GROOMING - SCORE: 5-SUP BATHING: Activity did not occur on this shift BATHING - SCORE: 0-UNK DRESSING - UPPER BODY: T-shirt/pullover shirt (four steps) ARTICLES SCORE Total number of steps: 4 DRESSING - UPPER BODY - STEP 1: Does the patient require help from a person or device, or need extra time when dressing above the [address]? Yes. DRESSING - UPPER BODY - STEP 2: Does the patient require the assistance of a helper? Yes. DRESSING - UPPER BODY - STEP 3: Does the helper touch the patient while dressing? Yes. DRESSING - UPPER BODY - STEP 4: How many of the total steps does the patient complete on his/her own? 2 DRESSING - UPPER BODY - SCORE: 3-MOD DRESSING - LOWER BODY: ARTICLES SCORE Total number of steps: 12 DRESSING - LOWER BODY - STEP 1: Does the patient require help from a person or device, or need extra time when dressing below the [address]? Yes. DRESSING - LOWER BODY - STEP 2: Does the patient require the assistance of a helper? Yes. DRESSING - LOWER BODY - STEP 3: Does the helper touch the patient while dressing? Yes. DRESSING - LOWER BODY - STEP 4: How many of the total steps does the patient complete on his/her own? 5 DRESSING - LOWER BODY - STEP 5: Does patient require total assistance for dressing below the waist such as the helper holding clothin g and performing basically all the activities? No. DRESSING - LOWER BODY - SCORE: 2-MAX TOILETING: TOILETING - STEP 1: Does the patient require the assistance of a person or device, or need extra time with toileting? Yes . TOILETING - STEP 2: Does the patient require the assistance of a helper? Yes. TOILETING - STEP 3: How much assistance does the patient require from the helper? Hands-on assistance from the helper TOILETING - STEP 4: Of the 3 tasks: 1) Adjusting clothing prior to use, 2) Cleansing of perineal area, 3) Adjusting clot merissa after use; How many tasks does the patient perform WITHOUT assistance of the helper? Two tasks TOILETING - SCORE: 3-MOD BLADDER MANAGEMENT: BLADDER MANAGEMENT - STEP 1: Does the patient control the bladder completely and intentionally without equipment or devices or med ications, and is always continent? No. BLADDER MANAGEMENT - STEP 2: Does the patient require the assistance of a helper? No, patient requires and independently uses an a ssistive device, such as a urinal, bedpan, bedside commode, catheter, absorbent pad, or collecting de vice BLADDER MANAGEMENT - SCORE: 6-SILVESTRE BOWEL MANAGEMENT: Activity did not occur on this shift BOWEL MANAGEMENT - SCORE: 7-IND TRANSFERS: BED, CHAIR, WHEELCHAIR: TRANSFERS: BED, CHAIR, WHEELCHAIR - STEP 1: Does the patient require assistance of a person or device, or need extra time with bed, chair, or whe elchair transfers? Yes. TRANSFERS: BED, CHAIR, WHEELCHAIR - STEP 2: Does the patient require the assistance of a helper? Yes. TRANSFERS: BED, CHAIR, WHEELCHAIR - STEP 3: How much assistance does the patient require from the helper? Lifting of the legs TRANSFERS: BED, CHAIR, WHEELCHAIR - STEP 4: How many legs does the patient require the helper to lift? both legs TRANSFERS: BED, CHAIR, WHEELCHAIR - SCORE: 3-MOD TRANSFERS: TOILET: TRANSFERS: TOILET - STEP 1: Does the patient require the assistance of a person or device, or need extra time with toilet transfe rs? Yes. TRANSFERS: TOILET - STEP 2: Does the patient require the assistance of a helper? Yes. TRANSFERS: TOILET - STEP 3: How much assistance does the patient require from the helper? Patient performs half or more of the tr ansferring tasks TRANSFERS: TOILET - STEP 4: Does the patient need only incidental help such as contact guard or steadying during toilet transfer? No. Patient needs more than incidental help TRANSFERS: TOILET - SCORE: 3-MOD TRANSFERS: SHOWER: Activity did not occur on this shift TRANSFERS: SHOWER - SCORE: 0-UNK TRANSFERS: TUB: Activity did not occur on this shift TRANSFERS: TUB - SCORE: 0-UNK LOCOMOTION: WALK: Activity did not occur on this shift LOCOMOTION: WALK - SCORE: 0-UNK LOCOMOTION: WHEELCHAIR: Activity did not occur on this shift LOCOMOTION: WHEELCHAIR - SCORE: 0-UNK COMPREHENSION: COMPREHENSION: TYPE: Both COMPREHENSION - STEP 1: Does the patient require help from a person or device, or need extra time to understand complex and a bstract ideas (such as current events, finances, discharge planning, medical issues, relationships, e tc)? Yes. COMPREHENSION - STEP 2: Does the patient require help to understand questions or statements about basic needs or ideas (such as hunger, thirst, sleep, safety, daily schedule, room location, or discomfort) half or more of the t aneudy? No. COMPREHENSION - STEP 3: How often does the patient need help to understand directions and conversation about basic needs? Les s than 10% of the time COMPREHENSION - SCORE: 5-SUP EXPRESSION EXPRESSION: TYPE: Both EXPRESSION - STEP 1: Does the patient require help from a person or device, or need extra time expressing complex and abst ract ideas (such as current events, finances, discharge planning, medical issues, relationships, etc) ? Yes. EXPRESSION - STEP 2: Does the patient require help to express basic necessities or ideas (such as hunger, thirst, sleep, s afety, daily schedule, room location, or discomfort) half or more of the time? No. EXPRESSION - STEP 3: How often does the patient need help to express directions and conversation about basic needs? Less t smiley 10% of the time EXPRESSION - SCORE: 5-SUP SOCIAL INTERACTION: SOCIAL INTERACTION - STEP 1: Does the patient require a helper to interact with others in social and therapeutic situations? Yes. SOCIAL INTERACTION - STEP 2: Does the patient interact appropriately half or more of the time? Yes. SOCIAL INTERACTION - STEP 3: How often does the patient need help to interact appropriately? Less than 10% of the time SOCIAL INTERACTION - SCORE: 5-SUP PROBLEM SOLVING: PROBLEM SOLVING - STEP 1: Does the patient need help from a person or device, or need extra time to solve complex problems such as managing a checking account or confronting interpersonal problems? Yes. PROBLEM SOLVING - STEP 2: Does the patient solve basic routine problems half or more of the time? Yes. PROBLEM SOLVING - STEP 3: How often does the patient need help to solve basic routine problems? Less than 10% of the time PROBLEM SOLVING - SCORE: 5-SUP MEMORY: MEMORY - STEP 1: Does the patient need help from a person or device, or need extra time to remember frequently encount ered people, daily routines, and executing requests? Yes. MEMORY - STEP 2: How often does the patient need help to remember frequently encountered people, daily routines, and e xecuting requests? Less than 10% of the time MEMORY - SCORE: 5-SUP SIGNATURE PANEL: The following modified sections: Eating - Score, Grooming - Score, Bathing - Score, Dressing - Upper Body - Score, Dressing - Lower Body - Score, Toileting - Score, Bladder Management - Score, Bowel Man agement - Score, Transfers: Bed, Chair, Wheelchair - Score, Transfers: Toilet - Score, Transfers: Melissa wer - Score, Transfers: Tub - Score, Locomotion: Walk - Score, Locomotion: Wheelchair - Score, Compre hension - Score, Expression - Score, Social Interaction - Score, Problem Solving - Score, Memory - Sc ore were [electronically] signed by Wilmar Arboleda on ThuJul 11 2018 10:17:55 GMT-0500 (Central Daylight Time)
[2018-07-11] MEDS: ALPRAZOLAM 1 MG TABLET PO SCH (10:54)
[2018-07-11 13:12] LABS: Urine Appearance CLEAR; Urine Bilirubin NEGATIVE (NEG); Urine Blood NEGATIVE (NEG); Urine Color YELLOW; Urine Glucose NEGATIVE (NEG); Urine Microscopic Reflex ORDER UMIC; Urine Protein NEGATIVE (NEG)
[2018-07-11 13:27] LABS: Urine Bacteria <20 /HPF (NONE SEEN); Urine Culture Reflex Order NOT NEEDED; Urine RBC <5 /HPF (NONE SEEN)
[2018-07-11] MEDS: CRANBERRY FRUIT EXTRACT 200 MG CAP PO SCH (19:23)
[2018-07-11] MEDS: DOCUSATE NA/SENNA CONC 1 TAB PO SCH (20:30)
[2018-07-11] MEDS: ATORVASTATIN 10 MG TAB PO SCH (20:30)
[2018-07-11] MEDS: MELATONIN 3 MG TABLET PO PRN (20:30)
--- NOTE | 2018-07-12 01:32 | FAST ---
SHIFT START DATE/TIME: 07/11/2018 19:00 (CDT) SHIFT END DATE/TIME: 07/12/2018 07:00 (CDT) NAME PRICE ROGERS DATE OF : 1940 DATE OF ADMISSION: 07/05/2018 18:33 (CDT) PHONE: AGE: 78 SSN# [id number] GENDER: Male ENCOUNTER PHYSICIAN: Dr. Abdirahman Zepeda M.D. 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 EATING: Activity did not occur on this shift EATING - SCORE: 0-UNK GROOMING: Activity did not occur on this shift GROOMING - SCORE: 0-UNK BATHING: Activity did not occur on this shift BATHING - SCORE: 0-UNK DRESSING - UPPER BODY: Activity did not occur on this shift ARTICLES SCORE Total number of steps: 0 DRESSING - UPPER BODY - SCORE: 0-UNK DRESSING - LOWER BODY: Activity did not occur on this shift ARTICLES SCORE Total number of steps: 0 DRESSING - LOWER BODY - SCORE: 0-UNK TOILETING: Activity did not occur on this shift TOILETING - SCORE: 0-UNK BLADDER MANAGEMENT: [place] removes incontinent device (Depends, pull ups, etc.); cleans the patient after accident / inco ntinent episode; and, applies new incontinent device. BLADDER MANAGEMENT - SCORE: 1-DEP BLADDER MANAGEMENT - FREQUENCY OF ACCIDENTS: BLADDER MANAGEMENT(FA) - STEP 1: How many accidents has the patient had during the current shift? 3 BOWEL MANAGEMENT: Activity did not occur on this shift BOWEL MANAGEMENT - SCORE: 7-IND TRANSFERS: BED, CHAIR, WHEELCHAIR: Activity did not occur on this shift TRANSFERS: BED, CHAIR, WHEELCHAIR - SCORE: 0-UNK TRANSFERS: TOILET: Activity did not occur on this shift TRANSFERS: TOILET - SCORE: 0-UNK TRANSFERS: SHOWER: Activity did not occur on this shift TRANSFERS: SHOWER - SCORE: 0-UNK TRANSFERS: TUB: Activity did not occur on this shift TRANSFERS: TUB - SCORE: 0-UNK LOCOMOTION: WALK: Activity did not occur on this shift LOCOMOTION: WALK - SCORE: 0-UNK LOCOMOTION: WHEELCHAIR: Activity did not occur on this shift LOCOMOTION: WHEELCHAIR - SCORE: 0-UNK COMPREHENSION: COMPREHENSION: TYPE: Both COMPREHENSION - STEP 1: Does the patient require help from a person or device, or need extra time to understand complex and a bstract ideas (such as current events, finances, discharge planning, medical issues, relationships, e tc)? No. COMPREHENSION - STEP 2: Does the patient need extra time, require an assistive device (such as glasses for visual comprehensi on or a hearing aid for auditory comprehension) or does s/he have mild difficulty understanding compl ex and abstract information? Yes. COMPREHENSION - SCORE: 6-SILVESTRE EXPRESSION EXPRESSION: TYPE: Both EXPRESSION - STEP 1: Does the patient require help from a person or device, or need extra time expressing complex and abst ract ideas (such as current events, finances, discharge planning, medical issues, relationships, etc) ? No. EXPRESSION - STEP 2: Does the patient need extra time, require an assistive device (such as augmentive communication syste m or a communication board), OR does s/he have mild difficulty expressing complex and abstract ideas (including mild dysarthria or mild word-find problems)? No. EXPRESSION - SCORE: 7-IND SOCIAL INTERACTION: SOCIAL INTERACTION - STEP 1: Does the patient require a helper to interact with others in social and therapeutic situations? No. SOCIAL INTERACTION - STEP 2: Does the patient need extra time in social situations, OR does s/he interact with staff, other patien ts, and family members ONLY in structured environments, OR does s/he require medication for social in teraction? Yes, patient requires medication for social interaction SOCIAL INTERACTION - SCORE: 6-SILVESTRE PROBLEM SOLVING: PROBLEM SOLVING - STEP 1: Does the patient need help from a person or device, or need extra time to solve complex problems such as managing a checking account or confronting interpersonal problems? No. PROBLEM SOLVING - STEP 2: Does the patient require extra time to make decisions or solve problems, OR does s/he have slight dif ficulty reading, initiating, or self-correcting in unfamiliar situations? Yes, patient needs extra ti me. PROBLEM SOLVING - SCORE: 6-SILVESTRE MEMORY: MEMORY - STEP 1: Does the patient need help from a person or device, or need extra time to remember frequently encount ered people, daily routines, and executing requests? No. MEMORY - STEP 2: Does the patient have slight difficulty recognizing frequently encountered people, daily routines, or executing requests without the need for repetition or using self-initiated or environmental cues to remember? No. MEMORY - SCORE: 7-IND SIGNATURE PANEL: The following modified sections: Eating - Score, Grooming - Score, Bathing - Score, Dressing - Upper Body - Score, Dressing - Lower Body - Score, Toileting - Score, Bladder Management - Score, Bowel Man agement - Score, Transfers: Bed, Chair, Wheelchair - Score, Transfers: Toilet - Score, Transfers: Melissa wer - Score, Transfers: Tub - Score, Locomotion: Walk - Score, Locomotion: Wheelchair - Score, Compre hension - Score, Expression - Score, Social Interaction - Score, Problem Solving - Score, Memory - Sc ore were [electronically] signed by Kaylen Nguyen RN on ThuJul 12 2018 01:31:30 T-0500 ([facility] Time)
[2018-07-12] MEDS: ALPRAZOLAM 1 MG TABLET PO SCH ×2 (08:00→20:52)
[2018-07-12] MEDS: LISINOPRIL 5 MG TAB PO SCH (08:00)
[2018-07-12] MEDS: VALSARTAN 80 MG TAB PO SCH (08:00)
[2018-07-12] MEDS: TRAMADOL HCL 50 MG TAB PO PRN (08:37)
[2018-07-12] MEDS: FLECAINIDE 100 MG TAB PO SCH ×2 (08:38→20:53)
[2018-07-12] MEDS: FUROSEMIDE 20 MG TABLET PO SCH (08:38)
[2018-07-12] MEDS: CRANBERRY FRUIT EXTRACT 200 MG CAP PO SCH ×2 (08:38→20:51)
[2018-07-12] MEDS: ASPIRIN 81 MG CHEWABLE TABLET PO SCH (08:39)
[2018-07-12] MEDS: CITALOPRAM 10 MG TABLET PO SCH (08:39)
[2018-07-12] MEDS: GABAPENTIN 300 MG CAP PO SCH ×2 (08:40→20:52)
[2018-07-12] MEDS: APIXABAN 2.5 MG TABLET PO SCH ×2 (08:40→20:52)
[2018-07-12] MEDS ORDERED: MAGNESIUM HYDROXIDE 8% 30 ML PO PRN (09:15)
[2018-07-12] MEDS ORDERED: FLEET ENEMA ADULT PR PRN (11:23)
--- NOTE | 2018-07-12 13:14 | FAST ---
ENCOUNTER DATE AND TIME: 07/12/2018 08:00 (CDT) NAME PRICE ROGERS DATE OF : 1940 DATE OF ADMISSION: 07/05/2018 18:33 (CDT) PHONE: AGE: 78 SSN# [id number] GENDER: Male ENCOUNTER PHYSICIAN: Dr. Abdirahman Zepeda M.D. 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 EATING: EATING - STEP 1: Does the patient require the assistance of a person or device, or need extra time when eating? No. EATING - SCORE: 7-IND GROOMING: Wash, rinse, and dry face Wash, rinse, and dry hands GROOMING - STEP 1: Does the patient require the assistance of a person or device, or need extra time when grooming? No. GROOMING - SCORE: 7-IND BATHING: Abdomen Buttocks Chest Left arm Left lower leg and foot Left upper leg Perineal area Right arm Right lower leg and foot Right upper leg BATHING - STEP 1: Does the patient require the assistance of a person or device, or need extra time when bathing? Yes. BATHING - STEP 2: Does the patient require the assistance of a helper? Yes. BATHING - STEP 3: How much assistance does the patient require from the helper? Only supervision, cuing, coaxing, instr uctions, encouragement BATHING - SCORE: 5-SUP DRESSING - UPPER BODY: T-shirt/pullover shirt (four steps) ARTICLES SCORE Total number of steps: 4 DRESSING - UPPER BODY - STEP 1: Does the patient require help from a person or device, or need extra time when dressing above the [address]? Yes. DRESSING - UPPER BODY - STEP 2: Does the patient require the assistance of a helper? Yes. DRESSING - UPPER BODY - STEP 3: Does the helper touch the patient while dressing? No. DRESSING - UPPER BODY - SCORE: 5-SUP DRESSING - LOWER BODY: Elastic waist pants (three steps) Sock - Left foot (one step) Sock - Right foot (one step) Tied or buckled shoe - Left foot (two steps) Tied or buckled shoe - Right foot (two steps) Underwear (three steps) ARTICLES SCORE Total number of steps: 12 DRESSING - LOWER BODY - STEP 1: Does the patient require help from a person or device, or need extra time when dressing below the [address]? Yes. DRESSING - LOWER BODY - STEP 2: Does the patient require the assistance of a helper? Yes. DRESSING - LOWER BODY - STEP 3: Does the helper touch the patient while dressing? Yes. DRESSING - LOWER BODY - STEP 4: How many of the total steps does the patient complete on his/her own? 11 DRESSING - LOWER BODY - SCORE: 4-MIN TOILETING: Activity did not occur on this shift TOILETING - SCORE: 0-UNK BLADDER MANAGEMENT: Activity did not occur on this shift BLADDER MANAGEMENT - SCORE: 7-IND BOWEL MANAGEMENT: Activity did not occur on this shift BOWEL MANAGEMENT - SCORE: 7-IND TRANSFERS: BED, CHAIR, WHEELCHAIR: Activity did not occur on this shift TRANSFERS: BED, CHAIR, WHEELCHAIR - SCORE: 0-UNK TRANSFERS: TOILET: Activity did not occur on this shift TRANSFERS: TOILET - SCORE: 0-UNK TRANSFERS: SHOWER: TRANSFERS: SHOWER - STEP 1: Does the patient require the assistance of a person or device, or need extra time with shower transfe rs? Yes. TRANSFERS: SHOWER - STEP 2: Does the patient require the assistance of a helper? Yes. TRANSFERS: SHOWER - STEP 3: How much assistance does the patient require from the helper? Only supervision, cuing, coaxing, or he lp to set out transfer equipment or to lock brakes and/or lift foot rests TRANSFERS: SHOWER - SCORE: 5-SUP TRANSFERS: TUB: Activity did not occur on this shift TRANSFERS: TUB - SCORE: 0-UNK LOCOMOTION: WALK: Activity did not occur on this shift LOCOMOTION: WALK - SCORE: 0-UNK LOCOMOTION: WHEELCHAIR: Activity did not occur on this shift LOCOMOTION: WHEELCHAIR - SCORE: 0-UNK LOCOMOTION: STAIRS: Activity did not occur on this shift LOCOMOTION: STAIRS - SCORE: 0-UNK COMPREHENSION: COMPREHENSION: TYPE: Auditory COMPREHENSION - STEP 1: Does the patient require help from a person or device, or need extra time to understand complex and a bstract ideas (such as current events, finances, discharge planning, medical issues, relationships, e tc)? Yes. COMPREHENSION - STEP 2: Does the patient require help to understand questions or statements about basic needs or ideas (such as hunger, thirst, sleep, safety, daily schedule, room location, or discomfort) half or more of the t aneudy? No. COMPREHENSION - STEP 3: How often does the patient need help to understand directions and conversation about basic needs? Les s than 10% of the time COMPREHENSION - SCORE: 5-SUP EXPRESSION EXPRESSION: TYPE: Both EXPRESSION - STEP 1: Does the patient require help from a person or device, or need extra time expressing complex and abst ract ideas (such as current events, finances, discharge planning, medical issues, relationships, etc) ? No. EXPRESSION - STEP 2: Does the patient need extra time, require an assistive device (such as augmentive communication syste m or a communication board), OR does s/he have mild difficulty expressing complex and abstract ideas (including mild dysarthria or mild word-find problems)? Yes. EXPRESSION - SCORE: 6-SILVESTRE SOCIAL INTERACTION: SOCIAL INTERACTION - STEP 1: Does the patient require a helper to interact with others in social and therapeutic situations? No. SOCIAL INTERACTION - STEP 2: Does the patient need extra time in social situations, OR does s/he interact with staff, other patien ts, and family members ONLY in structured environments, OR does s/he require medication for social in teraction? Yes, patient needs extra time SOCIAL INTERACTION - SCORE: 6-SILVESTRE PROBLEM SOLVING: PROBLEM SOLVING - STEP 1: Does the patient need help from a person or device, or need extra time to solve complex problems such as managing a checking account or confronting interpersonal problems? No. PROBLEM SOLVING - STEP 2: Does the patient require extra time to make decisions or solve problems, OR does s/he have slight dif ficulty reading, initiating, or self-correcting in unfamiliar situations? Yes, patient needs extra ti me. PROBLEM SOLVING - SCORE: 6-SILVSETRE MEMORY: MEMORY - STEP 1: Does the patient need help from a person or device, or need extra time to remember frequently encount ered people, daily routines, and executing requests? No. MEMORY - STEP 2: Does the patient have slight difficulty recognizing frequently encountered people, daily routines, or executing requests without the need for repetition or using self-initiated or environmental cues to remember? Yes. MEMORY - SCORE: 6-SILVESTRE SIGNATURE PANEL: The following modified sections: Eating - Score, Grooming - Score, Bathing - Score, Dressing - Upper Body - Score, Dressing - Lower Body - Score, Toileting - Score, Transfers: Bed, Chair, Wheelchair - S core, Transfers: Toilet - Score, Transfers: Shower - Score, Transfers: Tub - Score, Comprehension - S core, Expression - Score, Social Interaction - Score, Problem Solving - Score, Memory - Score were [e lectronically] signed by Shanti Moreno OT on ThuJul 12 2018 13:13:50 GMT-0500 (Central Daylight T aneudy)
--- NOTE | 2018-07-12 13:41 | FAST ---
SHIFT START DATE/TIME: 07/12/2018 07:00 (CDT) SHIFT END DATE/TIME: 07/12/2018 19:00 (CDT) NAME PRICE ROGERS DATE OF : 1940 DATE OF ADMISSION: 07/05/2018 18:33 (CDT) PHONE: AGE: 78 N# [id number] GENDER: Male ENCOUNTER PHYSICIAN: Dr. Abdirahman Zepeda M.D. 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 EATING: EATING - STEP 1: Does the patient require the assistance of a person or device, or need extra time when eating? Yes. EATING - STEP 2: Does the patient require the assistance of a helper? Yes. EATING - STEP 3: Does the patient perform half or more of the eating tasks? Yes. EATING - STEP 4: Does the patient need only supervision, cuing, coaxing OR help to apply an orthosis OR help to cut fo od, open containers, pour liquids, or butter bread? Yes. EATING - SCORE: 5-SUP GROOMING: Activity did not occur on this shift GROOMING - SCORE: 0-UNK BATHING: Activity did not occur on this shift BATHING - SCORE: 0-UNK DRESSING - UPPER BODY: Activity did not occur on this shift ARTICLES SCORE Total number of steps: 0 DRESSING - UPPER BODY - SCORE: 0-UNK DRESSING - LOWER BODY: Elastic waist pants (three steps) Slip-on shoe - Left foot (one step) Slip-on shoe - Right foot (one step) Sock - Left foot (one step) Sock - Right foot (one step) Underwear (three steps) ARTICLES SCORE Total number of steps: 10 DRESSING - LOWER BODY - STEP 1: Does the patient require help from a person or device, or need extra time when dressing below the [address] st? Yes. DRESSING - LOWER BODY - STEP 2: Does the patient require the assistance of a helper? Yes. DRESSING - LOWER BODY - STEP 3: Does the helper touch the patient while dressing? Yes. DRESSING - LOWER BODY - STEP 4: How many of the total steps does the patient complete on his/her own? 0 DRESSING - LOWER BODY - STEP 5: Does patient require total assistance for dressing below the waist such as the helper holding clothin g and performing basically all the activities? Yes. DRESSING - LOWER BODY - SCORE: 1-DEP TOILETING: TOILETING - STEP 1: Does the patient require the assistance of a person or device, or need extra time with toileting? Yes . TOILETING - STEP 2: Does the patient require the assistance of a helper? Yes. TOILETING - STEP 3: How much assistance does the patient require from the helper? Hands-on assistance from the helper TOILETING - STEP 4: Of the 3 tasks: 1) Adjusting clothing prior to use, 2) Cleansing of perineal area, 3) Adjusting clot merissa after use; How many tasks does the patient perform WITHOUT assistance of the helper? No tasks; h elper performs all three tasks TOILETING - SCORE: 1-DEP BLADDER MANAGEMENT: BLADDER MANAGEMENT - STEP 1: Does the patient control the bladder completely and intentionally without equipment or devices or med ications, and is always continent? No. BLADDER MANAGEMENT - STEP 2: Does the patient require the assistance of a helper? Yes. BLADDER MANAGEMENT - STEP 3: How much assistance does the patient require from the helper? Patient requires contact assistance fro m the helper BLADDER MANAGEMENT - STEP 4: How much contact assistance does the patient require from the helper? Patient requires moderate mary tance, and performs 50% to 75% of bladder management tasks - [place] positions AND holds urinal or bed benítez BLADDER MANAGEMENT - SCORE: 3-MOD BLADDER MANAGEMENT - FREQUENCY OF ACCIDENTS: BLADDER MANAGEMENT(FA) - STEP 1: How many accidents has the patient had during the current shift? 0 BOWEL MANAGEMENT: Activity did not occur on this shift BOWEL MANAGEMENT - SCORE: 7-IND BOWEL MANAGEMENT - FREQUENCY OF ACCIDENTS: BOWEL MANAGEMENT(FA) - STEP 1: How many accidents has the patient had during the current shift? 0 TRANSFERS: BED, CHAIR, WHEELCHAIR: Patient requires more than one helper and/or the use of a mechanical lift is utilized TRANSFERS: BED, CHAIR, WHEELCHAIR - SCORE: 1-DEP TRANSFERS: TOILET: Patient requires more than one helper and/or the use of a mechanical lift is utilized TRANSFERS: TOILET - SCORE: 1-DEP TRANSFERS: SHOWER: Activity did not occur on this shift TRANSFERS: SHOWER - SCORE: 0-UNK TRANSFERS: TUB: Activity did not occur on this shift TRANSFERS: TUB - SCORE: 0-UNK LOCOMOTION: WALK: Activity did not occur on this shift LOCOMOTION: WALK - SCORE: 0-UNK LOCOMOTION: WHEELCHAIR: Activity did not occur on this shift LOCOMOTION: WHEELCHAIR - SCORE: 0-UNK COMPREHENSION: COMPREHENSION: TYPE: Both COMPREHENSION - STEP 1: Does the patient require help from a person or device, or need extra time to understand complex and a bstract ideas (such as current events, finances, discharge planning, medical issues, relationships, e tc)? Yes. COMPREHENSION - STEP 2: Does the patient require help to understand questions or statements about basic needs or ideas (such as hunger, thirst, sleep, safety, daily schedule, room location, or discomfort) half or more of the t aneudy? No. COMPREHENSION - STEP 3: How often does the patient need help to understand directions and conversation about basic needs? Les s than 10% of the time COMPREHENSION - SCORE: 5-SUP EXPRESSION EXPRESSION: TYPE: Both EXPRESSION - STEP 1: Does the patient require help from a person or device, or need extra time expressing complex and abst ract ideas (such as current events, finances, discharge planning, medical issues, relationships, etc) ? Yes. EXPRESSION - STEP 2: Does the patient require help to express basic necessities or ideas (such as hunger, thirst, sleep, s afety, daily schedule, room location, or discomfort) half or more of the time? No. EXPRESSION - STEP 3: How often does the patient need help to express directions and conversation about basic needs? Less t smiley 10% of the time EXPRESSION - SCORE: 5-SUP SOCIAL INTERACTION: SOCIAL INTERACTION - STEP 1: Does the patient require a helper to interact with others in social and therapeutic situations? Yes. SOCIAL INTERACTION - STEP 2: Does the patient interact appropriately half or more of the time? Yes. SOCIAL INTERACTION - STEP 3: How often does the patient need help to interact appropriately? Less than 10% of the time SOCIAL INTERACTION - SCORE: 5-SUP PROBLEM SOLVING: PROBLEM SOLVING - STEP 1: Does the patient need help from a person or device, or need extra time to solve complex problems such as managing a checking account or confronting interpersonal problems? Yes. PROBLEM SOLVING - STEP 2: Does the patient solve basic routine problems half or more of the time? Yes. PROBLEM SOLVING - STEP 3: How often does the patient need help to solve basic routine problems? Less than 10% of the time PROBLEM SOLVING - SCORE: 5-SUP MEMORY: MEMORY - STEP 1: Does the patient need help from a person or device, or need extra time to remember frequently encount ered people, daily routines, and executing requests? Yes. MEMORY - STEP 2: How often does the patient need help to remember frequently encountered people, daily routines, and e xecuting requests? Less than 10% of the time MEMORY - SCORE: 5-SUP SIGNATURE PANEL: The following modified sections: Eating - Score, Grooming - Score, Bathing - Score, Dressing - Upper Body - Score, Dressing - Lower Body - Score, Toileting - Score, Bladder Management - Score, Bowel Man agement - Score, Transfers: Bed, Chair, Wheelchair - Score, Transfers: Toilet - Score, Transfers: Melissa wer - Score, Transfers: Tub - Score, Locomotion: Walk - Score, Locomotion: Wheelchair - Score, Compre hension - Score, Expression - Score, Social Interaction - Score, Problem Solving - Score, Memory - Sc ore were [electronically] signed by Vinay NelsonNSin on ThuJul 12 2018 13:41:18 T-0500 (Centra l Daylight Time)
[2018-07-12] MEDS: BISACODYL 10 MG RECTAL SUPP PR PRN (16:31)
[2018-07-12] MEDS: LACTULOSE 20 GM/30 ML UCUP PO PRN (17:36)
--- NOTE | 2018-07-12 17:55 | R.PN ---
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 SUBJECTIVE: Pt denied any Shortness of Breath. Pt denied any depression. Patient states that pain is under control. Hgb 12.1, prealbumin 23.2. Functional transfers done with total assistance. VITAL SIGNS Temperature: 97.6 F SBP/DBP: 121/78 Pulse: 64 Resp: 15 MEDICATION ALLERGIES: No Known Drug Allergies (NKDA) ENVIRONMENTAL ALLERGIES: None Known - Substance Allergies None Known - Other Allergies None Known NURSING: - Shower allowing shower - Bladder care per protocol - Skin care per protocol PRECAUTIONS: - Weight Bearing Precaution WBAT left LE ACTIVITIES OOB only with supervision THERAPIES: - Occupational Therapy Evaluate and Treat. Visual Perceptual Training. Cognitive Retraining. - Speech Therapy Cognitive Training. Memory Strategies. Expressive Language Skills. Speech Intelligibility Training. R eceptive Language Skills. Dysphagia Therapy. - Physical Therapy Evaluate and Treat. PHYSICAL EXAM - Gen Alert and awake Lying in bed No apparent distress Oriented to: person, time, and place - Skin No beakdown No abnormalities - Eyes No abnormalities - ENMT No abnormalities - Neck No abnormalities - CVS RRR - Chest No abnormalities - Resp Clear to auscultation - Abd + bowel sounds - GI nondistended Deferred - No abnormalities - Ext Mild left lower extremity edema. - MSK 0/5 strength in the left upper extremity and 2+/5 weakness in left lower extremity. - Neuro 0/5 strength in the left upper extremity and 2+/5 weakness in left lower extremity. - Psych No abnormalities ASSESSMENT: Pt. is a 78 yo Right-handed white male.On 06/25/2018 Pt. presented to [facility] with sudden on set of left-side weakness.On 06/25/2018 he was admitted to [facility] with diagnosis Right MCA. His impairment category is Stroke 01 - Left Body (Right Brain) (01.1).Pre-morbidly, Pt. was independ ent/mod-I in Self-Care, Sphincter Control, Transfers Control, Locomotion, Communication, and Social C ognition; and he had good Sphincter Control.Currently, he has deficits of Self-Care, Transfers Contro l, Locomotion, Communication, Social Cognition, Endurance, Balance, and Safety Awareness.Pt. is now r eferred to [facility] for acute in-patient rehabilitation in order to maximize patient's functional independence in activities of daily living, strength, ROM, and mobility.- Rehab Goal Patient has realistic goal of being discharged at assistance level 6-Maria E to reside at Home with Fam linda/Relatives. MDM/PLAN: - Physical Therapy Gait dysfunction - to improve, our physical therapists will perform initial evaluation of pt's statu s upon admission and devise an individualized program for Gait Training, and Wheel Chair mobility Inability to transfer - to improve, our physical therapists will perform initial evaluation of pt's status upon admission and devise an individualized program for Bed mobility Need for home safety evaluation - to improve, our physical therapists will perform initial evaluatio n of pt's status upon admission and devise an individualized program for Home Evaluation Need in caregiver upon discharge - to improve, our physical therapists will perform initial evaluati on of pt's status upon admission and devise an individualized program for Caregiver Training Edema - to improve, our physical therapists will perform initial evaluation of pt's status upon admi ssion and devise an individualized program for Elevation Training, and Lymphedema Therapy New precaution - to improve, our physical therapists will perform initial evaluation of pt's status upon admission and devise an individualized program for Patient precaution education Poor balance - to improve, our physical therapists will perform initial evaluation of pt's status up on admission and devise an individualized program for Balance Training Poor endurance - to improve, our physical therapists will perform initial evaluation of pt's status upon admission and devise an individualized program for Endurance Training Weakness - to improve, our physical therapists will perform initial evaluation of pt's status upon a dmission and devise an individualized program for Aquatic Therapy, Neuromuscular Reeducation, and Str engthening Achieving independence - to improve, our physical therapists will perform initial evaluation of pt's status upon admission and devise an individualized program for Community Reintegration Activities - Occupational Therapy ADL deficits - to improve, our occupation therapists will perform initial evaluation of pt's status upon admission and devise an individualized program for Bathing, Bed mobility, Community Reintegratio n, Cooking, Dressing, Eating, Fine Motor Skills, Grooming, Homemaking, Kitchen Mobility, Laundry, Pat ient Education, Safety Awareness, Splinting - Positioning, Transfers(Toilet, Tub, Shower), and Wheel Chair Management Cognitive deficits - to improve, our occupation therapists will perform initial evaluation of pt's s tatus upon admission and devise an individualized program for Cognition - orientation Need for healthcare analyst - to improve, our occupation therapists will perform initial evaluation of pt's status upon admission and devise an individualized program for Caregiver Training Weakness - to improve, our occupation therapists will perform initial evaluation of pt's status upon admission and devise an individualized program for Aquatic Therapy, Balance, Endurance, UE ROM, and UE strengthening - Diet Type Continue Regular - Diet - Liquid Texture Continue Thin - Tube Feed Continue N/A - Bladder care per protocol - Weight Bearing Precaution WBAT left LE - Skin care per protocol - Diet - Solid Texture Continue Regular Continue Mechanical Soft (Ground) - Shower allowing shower for Dementia, TBI, Stroke, or others FUNCTIONAL STATUS: UPDATED AT WEEKLY TEAM CONFERENCE - Bladder Same accident frequency: 7-Ind - No accidents in the past 7 days - Bowel Same accident frequency: 7-Ind - No accidents in the past 7 days - Walking Same score based on distance walked: 0(N/A) - Wheelchair Same score based on distance traveled: 0(N/A) FUNCTIONAL STATUS: - Self-Care A. Eating sup B. Grooming Anil C. Bathing maxA D. Dressing - Upper Anil E. Dressing - Lower maxA F. Toileting maxA - Sphincter Control G: Bladder control Ind H: Bowel control Ind - Transfers Control I. Bed/Chair/Wheelchair maxA J. Toilet maxA K. Tub/Shower ADNO - Locomotion L. Walk/Wheelchair (C) Dep L. Walk/Wheelchair (W) Dep M. Stairs ADNO - Communication N. Comprehension (B) Anil O. Expression (B) Anil - Social Cognition P. Social Interaction Anil Q. Problem Solving Anil R. Memory Anil - Endurance Fair - Balance Poor - Safety Awareness Fair CURRENT FUNC. DEFICITS: Self-Care, Transfers Control, Locomotion, Communication, Social Cognition, Endurance, Balance, and Sa fety Awareness SIGNATURE PANEL: (CDT)
[2018-07-12] MEDS: ATORVASTATIN 10 MG TAB PO SCH (20:52)
[2018-07-12] MEDS: DOCUSATE NA/SENNA CONC 1 TAB PO SCH (20:52)
--- NOTE | 2018-07-13 01:43 | FAST ---
SHIFT START DATE/TIME: 07/12/2018 19:00 (CDT) SHIFT END DATE/TIME: 07/13/2018 07:00 (CDT) NAME PRICE ROGERS DATE OF : 1940 DATE OF ADMISSION: 07/05/2018 18:33 (CDT) PHONE: AGE: 78 N# [id number] GENDER: Male ENCOUNTER PHYSICIAN: Dr. Abdirahman Zepeda M.D. 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 EATING: Activity did not occur on this shift EATING - SCORE: 0-UNK GROOMING: Activity did not occur on this shift GROOMING - SCORE: 0-UNK BATHING: Activity did not occur on this shift BATHING - SCORE: 0-UNK DRESSING - UPPER BODY: Patient is not dressing in public clothing ARTICLES SCORE Total number of steps: 0 DRESSING - UPPER BODY - SCORE: 0-UNK DRESSING - LOWER BODY: Patient is not dressing in public clothing ARTICLES SCORE Total number of steps: 0 DRESSING - LOWER BODY - SCORE: 0-UNK TOILETING: TOILETING - STEP 1: Does the patient require the assistance of a person or device, or need extra time with toileting? Yes . TOILETING - STEP 2: Does the patient require the assistance of a helper? Yes. TOILETING - STEP 3: How much assistance does the patient require from the helper? Hands-on assistance from the helper TOILETING - STEP 4: Of the 3 tasks: 1) Adjusting clothing prior to use, 2) Cleansing of perineal area, 3) Adjusting clot merissa after use; How many tasks does the patient perform WITHOUT assistance of the helper? No tasks; h elper performs all three tasks TOILETING - SCORE: 1-DEP BLADDER MANAGEMENT: [place] removes incontinent device (Depends, pull ups, etc.); cleans the patient after accident / inco ntinent episode; and, applies new incontinent device. BLADDER MANAGEMENT - SCORE: 1-DEP BLADDER MANAGEMENT - FREQUENCY OF ACCIDENTS: BLADDER MANAGEMENT(FA) - STEP 1: How many accidents has the patient had during the current shift? 1 BOWEL MANAGEMENT: [place] removes incontinent device (depends, pull ups, etc.); cleans the patient after accident / inco ntinent episode; and, applies new device (depends, pull-ups, padding, etc.). BOWEL MANAGEMENT - SCORE: 1-DEP TRANSFERS: BED, CHAIR, WHEELCHAIR: Activity did not occur on this shift TRANSFERS: BED, CHAIR, WHEELCHAIR - SCORE: 0-UNK TRANSFERS: TOILET: Activity did not occur on this shift TRANSFERS: TOILET - SCORE: 0-UNK TRANSFERS: SHOWER: Activity did not occur on this shift TRANSFERS: SHOWER - SCORE: 0-UNK TRANSFERS: TUB: Activity did not occur on this shift TRANSFERS: TUB - SCORE: 0-UNK LOCOMOTION: WALK: Activity did not occur on this shift LOCOMOTION: WALK - SCORE: 0-UNK LOCOMOTION: WHEELCHAIR: Activity did not occur on this shift LOCOMOTION: WHEELCHAIR - SCORE: 0-UNK COMPREHENSION: COMPREHENSION: TYPE: Both COMPREHENSION - STEP 1: Does the patient require help from a person or device, or need extra time to understand complex and a bstract ideas (such as current events, finances, discharge planning, medical issues, relationships, e tc)? No. COMPREHENSION - STEP 2: Does the patient need extra time, require an assistive device (such as glasses for visual comprehensi on or a hearing aid for auditory comprehension) or does s/he have mild difficulty understanding compl ex and abstract information? Yes. COMPREHENSION - SCORE: 6-SILVESTRE EXPRESSION EXPRESSION: TYPE: Both EXPRESSION - STEP 1: Does the patient require help from a person or device, or need extra time expressing complex and abst ract ideas (such as current events, finances, discharge planning, medical issues, relationships, etc) ? No. EXPRESSION - STEP 2: Does the patient need extra time, require an assistive device (such as augmentive communication syste m or a communication board), OR does s/he have mild difficulty expressing complex and abstract ideas (including mild dysarthria or mild word-find problems)? No. EXPRESSION - SCORE: 7-IND SOCIAL INTERACTION: SOCIAL INTERACTION - STEP 1: Does the patient require a helper to interact with others in social and therapeutic situations? No. SOCIAL INTERACTION - STEP 2: Does the patient need extra time in social situations, OR does s/he interact with staff, other patien ts, and family members ONLY in structured environments, OR does s/he require medication for social in teraction? Yes, patient needs extra time SOCIAL INTERACTION - SCORE: 6-SILVESTRE PROBLEM SOLVING: PROBLEM SOLVING - STEP 1: Does the patient need help from a person or device, or need extra time to solve complex problems such as managing a checking account or confronting interpersonal problems? Yes. PROBLEM SOLVING - STEP 2: Does the patient solve basic routine problems half or more of the time? Yes. PROBLEM SOLVING - STEP 3: How often does the patient need help to solve basic routine problems? 10%-24% of the time PROBLEM SOLVING - SCORE: 4-MIN MEMORY: MEMORY - STEP 1: Does the patient need help from a person or device, or need extra time to remember frequently encount ered people, daily routines, and executing requests? No. MEMORY - STEP 2: Does the patient have slight difficulty recognizing frequently encountered people, daily routines, or executing requests without the need for repetition or using self-initiated or environmental cues to remember? Yes. MEMORY - SCORE: 6-SILVESTRE SIGNATURE PANEL: The following modified sections: Eating - Score, Grooming - Score, Dressing - Upper Body - Score, Jitendra ssing - Lower Body - Score, Toileting - Score, Bladder Management - Score, Bowel Management - Score, Transfers: Bed, Chair, Wheelchair - Score, Transfers: Toilet - Score, Transfers: Shower - Score, Good sfers: Tub - Score, Locomotion: Walk - Score, Locomotion: Wheelchair - Score, Comprehension - Score, Expression - Score, Social Interaction - Score, Problem Solving - Score, Memory - Score were [electro nically] signed by Valerie Almanzar CNA on ThuJul 13 2018 01:42:23 GMT-0500 (Central Daylight Time)
[2018-07-13] MEDS: FUROSEMIDE 20 MG TABLET PO SCH (08:00)
[2018-07-13] MEDS: VALSARTAN 80 MG TAB PO SCH (08:00)
[2018-07-13] MEDS: LISINOPRIL 5 MG TAB PO SCH (08:00)
[2018-07-13] MEDS: FLECAINIDE 100 MG TAB PO SCH ×2 (08:31→20:47)
[2018-07-13] MEDS: GABAPENTIN 300 MG CAP PO SCH ×3 (08:32→20:43)
[2018-07-13] MEDS: CRANBERRY FRUIT EXTRACT 200 MG CAP PO SCH ×2 (08:32→20:42)
[2018-07-13] MEDS: CITALOPRAM 10 MG TABLET PO SCH (08:32)
[2018-07-13] MEDS: ASPIRIN 81 MG CHEWABLE TABLET PO SCH (08:33)
[2018-07-13] MEDS: APIXABAN 2.5 MG TABLET PO SCH ×2 (08:33→20:42)
[2018-07-13] MEDS: TRAMADOL HCL 50 MG TAB PO PRN (08:33)
[2018-07-13] MEDS: ONDANSETRON 4 MG (ODT) TAB PO PRN (09:46)
--- NOTE | 2018-07-13 12:04 | FAST ---
ENCOUNTER DATE AND TIME: 07/13/2018 08:00 (CDT) NAME PRICE ROGERS DATE OF : 1940 DATE OF ADMISSION: 07/05/2018 18:33 (CDT) PHONE: AGE: 78 SSN# [id number] GENDER: Male ENCOUNTER PHYSICIAN: Dr. Abdirahman Zepeda M.D. 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 EATING: Activity did not occur on this shift EATING - SCORE: 0-UNK GROOMING: Comb/brush hair Wash, rinse, and dry face Wash, rinse, and dry hands GROOMING - STEP 1: Does the patient require the assistance of a person or device, or need extra time when grooming? Yes. GROOMING - STEP 2: Does the patient require the assistance of a helper? Yes. GROOMING - STEP 3: How much assistance does the patient require from the helper? Only prior equipment preparation/set up from the helper GROOMING - SCORE: 5-SUP BATHING: Abdomen Buttocks Chest Left arm Left lower leg and foot Left upper leg Perineal area Right arm Right lower leg and foot Right upper leg BATHING - STEP 1: Does the patient require the assistance of a person or device, or need extra time when bathing? Yes. BATHING - STEP 2: Does the patient require the assistance of a helper? Yes. BATHING - STEP 3: How much assistance does the patient require from the helper? More than just incidental help BATHING - STEP 4: What percent of the body parts did the patient bathe WITHOUT the helper? None. All work was performed by the helper BATHING - SCORE: 1-DEP BATHING - COMMENTS: PATIENT ABLE TO SCRUB X4 BODY PARTS, HOWEVER, ASSISTANCE FOR THOROUGH RINSING/SCRUBBING OF BACK PERIN EAL AREA WITH SECOND PERSON TO STEADY TRUNK WHILE STANDINGDURING SHOWER TASK. DRESSING - UPPER BODY: T-shirt/pullover shirt (four steps) ARTICLES SCORE Total number of steps: 4 DRESSING - UPPER BODY - STEP 1: Does the patient require help from a person or device, or need extra time when dressing above the [address]? Yes. DRESSING - UPPER BODY - STEP 2: Does the patient require the assistance of a helper? Yes. DRESSING - UPPER BODY - STEP 3: Does the helper touch the patient while dressing? Yes. DRESSING - UPPER BODY - STEP 4: How many of the total steps does the patient complete on his/her own? 2 DRESSING - UPPER BODY - SCORE: 3-MOD DRESSING - LOWER BODY: Elastic waist pants (three steps) Sock - Left foot (one step) Sock - Right foot (one step) Tied or buckled shoe - Left foot (two steps) Tied or buckled shoe - Right foot (two steps) Underwear (three steps) ARTICLES SCORE Total number of steps: 12 DRESSING - LOWER BODY - STEP 1: Does the patient require help from a person or device, or need extra time when dressing below the [address]? Yes. DRESSING - LOWER BODY - STEP 2: Does the patient require the assistance of a helper? Yes. DRESSING - LOWER BODY - STEP 3: Does the helper touch the patient while dressing? Yes. DRESSING - LOWER BODY - STEP 4: How many of the total steps does the patient complete on his/her own? 0 DRESSING - LOWER BODY - STEP 5: Does patient require total assistance for dressing below the waist such as the helper holding clothin g and performing basically all the activities? Yes. DRESSING - LOWER BODY - SCORE: 1-DEP TOILETING: Activity did not occur on this shift TOILETING - SCORE: 0-UNK BLADDER MANAGEMENT: Activity did not occur on this shift BLADDER MANAGEMENT - SCORE: 7-IND BOWEL MANAGEMENT: Activity did not occur on this shift BOWEL MANAGEMENT - SCORE: 7-IND TRANSFERS: BED, CHAIR, WHEELCHAIR: Activity did not occur on this shift TRANSFERS: BED, CHAIR, WHEELCHAIR - SCORE: 0-UNK TRANSFERS: TOILET: Activity did not occur on this shift TRANSFERS: TOILET - SCORE: 0-UNK TRANSFERS: SHOWER: More than one helper is required for shower transfer TRANSFERS: SHOWER - SCORE: 1-DEP TRANSFERS: TUB: Activity did not occur on this shift TRANSFERS: TUB - SCORE: 0-UNK LOCOMOTION: WALK: Activity did not occur on this shift LOCOMOTION: WALK - SCORE: 0-UNK LOCOMOTION: WHEELCHAIR: Activity did not occur on this shift LOCOMOTION: WHEELCHAIR - SCORE: 0-UNK LOCOMOTION: STAIRS: Activity did not occur on this shift LOCOMOTION: STAIRS - SCORE: 0-UNK COMPREHENSION: COMPREHENSION: TYPE: Both COMPREHENSION - STEP 1: Does the patient require help from a person or device, or need extra time to understand complex and a bstract ideas (such as current events, finances, discharge planning, medical issues, relationships, e tc)? Yes. COMPREHENSION - STEP 2: Does the patient require help to understand questions or statements about basic needs or ideas (such as hunger, thirst, sleep, safety, daily schedule, room location, or discomfort) half or more of the t aneudy? No. COMPREHENSION - STEP 3: How often does the patient need help to understand directions and conversation about basic needs? 10% - 24% of the time COMPREHENSION - SCORE: 4-MIN EXPRESSION EXPRESSION: TYPE: Both EXPRESSION - STEP 1: Does the patient require help from a person or device, or need extra time expressing complex and abst ract ideas (such as current events, finances, discharge planning, medical issues, relationships, etc) ? Yes. EXPRESSION - STEP 2: Does the patient require help to express basic necessities or ideas (such as hunger, thirst, sleep, s afety, daily schedule, room location, or discomfort) half or more of the time? No. EXPRESSION - STEP 3: How often does the patient need help to express directions and conversation about basic needs? Less t smiley 10% of the time EXPRESSION - SCORE: 5-SUP SOCIAL INTERACTION: SOCIAL INTERACTION - STEP 1: Does the patient require a helper to interact with others in social and therapeutic situations? No. SOCIAL INTERACTION - STEP 2: Does the patient need extra time in social situations, OR does s/he interact with staff, other patien ts, and family members ONLY in structured environments, OR does s/he require medication for social in teraction? Yes, patient requires medication for social interaction SOCIAL INTERACTION - SCORE: 6-SILVESTRE PROBLEM SOLVING: PROBLEM SOLVING - STEP 1: Does the patient need help from a person or device, or need extra time to solve complex problems such as managing a checking account or confronting interpersonal problems? Yes. PROBLEM SOLVING - STEP 2: Does the patient solve basic routine problems half or more of the time? Yes. PROBLEM SOLVING - STEP 3: How often does the patient need help to solve basic routine problems? 10%-24% of the time PROBLEM SOLVING - SCORE: 4-MIN MEMORY: MEMORY - STEP 1: Does the patient need help from a person or device, or need extra time to remember frequently encount ered people, daily routines, and executing requests? Yes. MEMORY - STEP 2: How often does the patient need help to remember frequently encountered people, daily routines, and e xecuting requests? 10% - 24% of the time MEMORY - SCORE: 4-MIN SIGNATURE PANEL: The following modified sections: Eating - Score, Grooming - Score, Bathing - Score, Bathing - Comment s:, Dressing - Upper Body - Score, Dressing - Lower Body - Score, Toileting - Score, Transfers: Bed, Chair, Wheelchair - Score, Transfers: Toilet - Score, Transfers: Tub - Score, Transfers: Shower - Sco re, Comprehension - Score, Expression - Score, Social Interaction - Score, Problem Solving - Score, M ruben - Score were [electronically] signed by Shanti Moreno OT on ThuJul 13 2018 12:04:10 [id number] 0 (Central Daylight Time)
[2018-07-13] MEDS: ACETAMINOPHEN 500 MG TAB PO PRN (14:44)
--- NOTE | 2018-07-13 18:57 | R.PN ---
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 SUBJECTIVE: Pt denied any Shortness of Breath. Pt denied any depression. Patient states that pain is under control. Hgb 12.1, prealbumin 23.2. Functional transfers done with total assistance. He requires total assistance for transfers and all activities of daily living. His legs buckle while attempting to stand. VITAL SIGNS Temperature: 97.6 F SBP/DBP: 109/66 Pulse: 71 Resp: 16 MEDICATION ALLERGIES: No Known Drug Allergies (NKDA) ENVIRONMENTAL ALLERGIES: None Known - Substance Allergies None Known - Other Allergies None Known NURSING: - Shower allowing shower - Bladder care per protocol - Skin care per protocol PRECAUTIONS: - Weight Bearing Precaution WBAT left LE ACTIVITIES OOB only with supervision THERAPIES: - Occupational Therapy Evaluate and Treat. Visual Perceptual Training. Cognitive Retraining. - Speech Therapy Cognitive Training. Memory Strategies. Expressive Language Skills. Speech Intelligibility Training. R eceptive Language Skills. Dysphagia Therapy. - Physical Therapy Evaluate and Treat. PHYSICAL EXAM - Gen Alert and awake Lying in bed No apparent distress Oriented to: person, time, and place - Skin No beakdown No abnormalities - Eyes No abnormalities - ENMT No abnormalities - Neck No abnormalities - CVS RRR - Chest No abnormalities - Resp Clear to auscultation - Abd + bowel sounds - GI nondistended Deferred - No abnormalities - Ext Mild left lower extremity edema. - MSK 0/5 strength in the left upper extremity and 2+/5 weakness in left lower extremity. - Neuro 0/5 strength in the left upper extremity and 2+/5 weakness in left lower extremity. - Psych No abnormalities ASSESSMENT: Pt. is a 78 yo Right-handed white male.On 06/25/2018 Pt. presented to [facility] with sudden on set of left-side weakness.On 06/25/2018 he was admitted to [facility] with diagnosis Right MCA. His impairment category is Stroke 01 - Left Body (Right Brain) (01.1).Pre-morbidly, Pt. was independ ent/mod-I in Self-Care, Sphincter Control, Transfers Control, Locomotion, Communication, and Social C ognition; and he had good Sphincter Control.Currently, he has deficits of Self-Care, Transfers Contro l, Locomotion, Communication, Social Cognition, Endurance, Balance, and Safety Awareness.Pt. is now r eferred to [facility] for acute in-patient rehabilitation in order to maximize patient's functional independence in activities of daily living, strength, ROM, and mobility.- Rehab Goal Patient has realistic goal of being discharged at assistance level 6-Maria E to reside at Home with Fam linda/Relatives. MDM/PLAN: - Physical Therapy Gait dysfunction - to improve, our physical therapists will perform initial evaluation of pt's statu s upon admission and devise an individualized program for Gait Training, and Wheel Chair mobility Inability to transfer - to improve, our physical therapists will perform initial evaluation of pt's status upon admission and devise an individualized program for Bed mobility Need for home safety evaluation - to improve, our physical therapists will perform initial evaluatio n of pt's status upon admission and devise an individualized program for Home Evaluation Need in caregiver upon discharge - to improve, our physical therapists will perform initial evaluati on of pt's status upon admission and devise an individualized program for Caregiver Training Edema - to improve, our physical therapists will perform initial evaluation of pt's status upon admi ssion and devise an individualized program for Elevation Training, and Lymphedema Therapy New precaution - to improve, our physical therapists will perform initial evaluation of pt's status upon admission and devise an individualized program for Patient precaution education Poor balance - to improve, our physical therapists will perform initial evaluation of pt's status up on admission and devise an individualized program for Balance Training Poor endurance - to improve, our physical therapists will perform initial evaluation of pt's status upon admission and devise an individualized program for Endurance Training Weakness - to improve, our physical therapists will perform initial evaluation of pt's status upon a dmission and devise an individualized program for Aquatic Therapy, Neuromuscular Reeducation, and Str engthening Achieving independence - to improve, our physical therapists will perform initial evaluation of pt's status upon admission and devise an individualized program for Community Reintegration Activities - Occupational Therapy ADL deficits - to improve, our occupation therapists will perform initial evaluation of pt's status upon admission and devise an individualized program for Bathing, Bed mobility, Community Reintegratio n, Cooking, Dressing, Eating, Fine Motor Skills, Grooming, Homemaking, Kitchen Mobility, Laundry, Pat ient Education, Safety Awareness, Splinting - Positioning, Transfers(Toilet, Tub, Shower), and Wheel Chair Management Cognitive deficits - to improve, our occupation therapists will perform initial evaluation of pt's s tatus upon admission and devise an individualized program for Cognition - orientation Need for progressive care nurse - to improve, our occupation therapists will perform initial evaluation of pt's status upon admission and devise an individualized program for Caregiver Training Weakness - to improve, our occupation therapists will perform initial evaluation of pt's status upon admission and devise an individualized program for Aquatic Therapy, Balance, Endurance, UE ROM, and UE strengthening - Diet Type Continue Regular - Diet - Liquid Texture Continue Thin - Tube Feed Continue N/A - Bladder care per protocol - Weight Bearing Precaution WBAT left LE - Skin care per protocol - Diet - Solid Texture Continue Regular Continue Mechanical Soft (Ground) - Shower allowing shower for Dementia, TBI, Stroke, or others FUNCTIONAL STATUS: UPDATED AT WEEKLY TEAM CONFERENCE - Bladder Same accident frequency: 7-Ind - No accidents in the past 7 days - Bowel Same accident frequency: 7-Ind - No accidents in the past 7 days - Walking Same score based on distance walked: 0(N/A) - Wheelchair Same score based on distance traveled: 0(N/A) FUNCTIONAL STATUS: - Self-Care A. Eating sup B. Grooming Anil C. Bathing maxA D. Dressing - Upper Anil E. Dressing - Lower maxA F. Toileting maxA - Sphincter Control G: Bladder control Ind H: Bowel control Ind - Transfers Control I. Bed/Chair/Wheelchair maxA J. Toilet maxA K. Tub/Shower ADNO - Locomotion L. Walk/Wheelchair (C) Dep L. Walk/Wheelchair (W) Dep M. Stairs ADNO - Communication N. Comprehension (B) Anil O. Expression (B) Anil - Social Cognition P. Social Interaction Anil Q. Problem Solving Anil R. Memory Anil - Endurance Fair - Balance Poor - Safety Awareness Fair CURRENT FUNC. DEFICITS: Self-Care, Transfers Control, Locomotion, Communication, Social Cognition, Endurance, Balance, and Sa fety Awareness SIGNATURE PANEL: (CDT)
[2018-07-13] MEDS: DOCUSATE NA/SENNA CONC 1 TAB PO SCH (20:43)
[2018-07-13] MEDS: ATORVASTATIN 10 MG TAB PO SCH (20:43)
[2018-07-13] MEDS: ALPRAZOLAM 1 MG TABLET PO SCH (23:00)
--- NOTE | 2018-07-14 00:19 | FAST ---
SHIFT START DATE/TIME: 07/13/2018 19:00 (CDT) SHIFT END DATE/TIME: 07/14/2018 07:00 (CDT) NAME PRICE ROGERS DATE OF : 1940 DATE OF ADMISSION: 07/05/2018 18:33 (CDT) PHONE: AGE: 78 N# [id number] GENDER: Male ENCOUNTER PHYSICIAN: Dr. Abdirahman Zepeda M.D. 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 EATING: Activity did not occur on this shift EATING - SCORE: 0-UNK GROOMING: Activity did not occur on this shift GROOMING - SCORE: 0-UNK BATHING: Activity did not occur on this shift BATHING - SCORE: 0-UNK DRESSING - UPPER BODY: Patient is not dressing in public clothing ARTICLES SCORE Total number of steps: 0 DRESSING - UPPER BODY - SCORE: 0-UNK DRESSING - LOWER BODY: Patient is not dressing in public clothing ARTICLES SCORE Total number of steps: 0 DRESSING - LOWER BODY - SCORE: 0-UNK TOILETING: TOILETING - STEP 1: Does the patient require the assistance of a person or device, or need extra time with toileting? Yes . TOILETING - STEP 2: Does the patient require the assistance of a helper? Yes. TOILETING - STEP 3: How much assistance does the patient require from the helper? Hands-on assistance from the helper TOILETING - STEP 4: Of the 3 tasks: 1) Adjusting clothing prior to use, 2) Cleansing of perineal area, 3) Adjusting clot merissa after use; How many tasks does the patient perform WITHOUT assistance of the helper? No tasks; h elper performs all three tasks TOILETING - SCORE: 1-DEP BLADDER MANAGEMENT: [place] removes incontinent device (Depends, pull ups, etc.); cleans the patient after accident / inco ntinent episode; and, applies new incontinent device. BLADDER MANAGEMENT - SCORE: 1-DEP BLADDER MANAGEMENT - FREQUENCY OF ACCIDENTS: BLADDER MANAGEMENT(FA) - STEP 1: How many accidents has the patient had during the current shift? 1 BOWEL MANAGEMENT: Activity did not occur on this shift BOWEL MANAGEMENT - SCORE: 7-IND TRANSFERS: BED, CHAIR, WHEELCHAIR: Activity did not occur on this shift TRANSFERS: BED, CHAIR, WHEELCHAIR - SCORE: 0-UNK TRANSFERS: TOILET: Activity did not occur on this shift TRANSFERS: TOILET - SCORE: 0-UNK TRANSFERS: SHOWER: Activity did not occur on this shift TRANSFERS: SHOWER - SCORE: 0-UNK TRANSFERS: TUB: Activity did not occur on this shift TRANSFERS: TUB - SCORE: 0-UNK LOCOMOTION: WALK: Activity did not occur on this shift LOCOMOTION: WALK - SCORE: 0-UNK LOCOMOTION: WHEELCHAIR: Activity did not occur on this shift LOCOMOTION: WHEELCHAIR - SCORE: 0-UNK COMPREHENSION: COMPREHENSION: TYPE: Both COMPREHENSION - STEP 1: Does the patient require help from a person or device, or need extra time to understand complex and a bstract ideas (such as current events, finances, discharge planning, medical issues, relationships, e tc)? No. COMPREHENSION - STEP 2: Does the patient need extra time, require an assistive device (such as glasses for visual comprehensi on or a hearing aid for auditory comprehension) or does s/he have mild difficulty understanding compl ex and abstract information? Yes. COMPREHENSION - SCORE: 6-SILVESTRE EXPRESSION EXPRESSION: TYPE: Both EXPRESSION - STEP 1: Does the patient require help from a person or device, or need extra time expressing complex and abst ract ideas (such as current events, finances, discharge planning, medical issues, relationships, etc) ? No. EXPRESSION - STEP 2: Does the patient need extra time, require an assistive device (such as augmentive communication syste m or a communication board), OR does s/he have mild difficulty expressing complex and abstract ideas (including mild dysarthria or mild word-find problems)? No. EXPRESSION - SCORE: 7-IND SOCIAL INTERACTION: SOCIAL INTERACTION - STEP 1: Does the patient require a helper to interact with others in social and therapeutic situations? No. SOCIAL INTERACTION - STEP 2: Does the patient need extra time in social situations, OR does s/he interact with staff, other patien ts, and family members ONLY in structured environments, OR does s/he require medication for social in teraction? Yes, patient needs extra time SOCIAL INTERACTION - SCORE: 6-SILVESTRE PROBLEM SOLVING: PROBLEM SOLVING - STEP 1: Does the patient need help from a person or device, or need extra time to solve complex problems such as managing a checking account or confronting interpersonal problems? Yes. PROBLEM SOLVING - STEP 2: Does the patient solve basic routine problems half or more of the time? Yes. PROBLEM SOLVING - STEP 3: How often does the patient need help to solve basic routine problems? 10%-24% of the time PROBLEM SOLVING - SCORE: 4-MIN MEMORY: MEMORY - STEP 1: Does the patient need help from a person or device, or need extra time to remember frequently encount ered people, daily routines, and executing requests? No. MEMORY - STEP 2: Does the patient have slight difficulty recognizing frequently encountered people, daily routines, or executing requests without the need for repetition or using self-initiated or environmental cues to remember? Yes. MEMORY - SCORE: 6-SILVESTRE SIGNATURE PANEL: The following modified sections: Eating - Score, Grooming - Score, Dressing - Upper Body - Score, Ijtendra ssing - Lower Body - Score, Toileting - Score, Bladder Management - Score, Bowel Management - Score, Transfers: Bed, Chair, Wheelchair - Score, Transfers: Toilet - Score, Transfers: Shower - Score, Good sfers: Tub - Score, Locomotion: Walk - Score, Locomotion: Wheelchair - Score, Comprehension - Score, Expression - Score, Social Interaction - Score, Problem Solving - Score, Memory - Score were [electro nically] signed by Valerie Almanzar CNA on ThuJul 14 2018 00:18:16 GMT-0500 (Central Daylight Time)
[2018-07-14] MEDS: ONDANSETRON 4 MG (ODT) TAB PO PRN ×3 (03:44→19:12)
[2018-07-14] MEDS: VALSARTAN 80 MG TAB PO SCH (08:00)
[2018-07-14] MEDS: LISINOPRIL 5 MG TAB PO SCH (08:00)
[2018-07-14] MEDS: ASPIRIN 81 MG CHEWABLE TABLET PO SCH (08:54)
[2018-07-14] MEDS: FLECAINIDE 100 MG TAB PO SCH ×2 (08:54→19:11)
[2018-07-14] MEDS: CITALOPRAM 10 MG TABLET PO SCH (08:55)
[2018-07-14] MEDS: GABAPENTIN 300 MG CAP PO SCH ×3 (08:55→20:05)
[2018-07-14] MEDS: TRAMADOL HCL 50 MG TAB PO PRN (08:55)
[2018-07-14] MEDS: APIXABAN 2.5 MG TABLET PO SCH ×2 (08:55→19:11)
[2018-07-14] MEDS: CRANBERRY FRUIT EXTRACT 200 MG CAP PO SCH ×2 (08:55→19:11)
[2018-07-14] MEDS: FUROSEMIDE 20 MG TABLET PO SCH (08:56)
[2018-07-14] MEDS: HYDROCODONE/APAP 5/325 MG TAB PO PRN ×2 (12:08→19:11)
--- NOTE | 2018-07-14 13:52 | FAST ---
SHIFT START DATE/TIME: 07/13/2018 07:00 (CDT) SHIFT END DATE/TIME: 07/13/2018 19:00 (CDT) NAME PRICE ROGERS DATE OF : 1940 DATE OF ADMISSION: 07/05/2018 18:33 (CDT) PHONE: AGE: 78 N# [id number] GENDER: Male ENCOUNTER PHYSICIAN: Dr. Abdirahman Zepeda M.D. 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 EATING: EATING - STEP 1: Does the patient require the assistance of a person or device, or need extra time when eating? Yes. EATING - STEP 2: Does the patient require the assistance of a helper? Yes. EATING - STEP 3: Does the patient perform half or more of the eating tasks? Yes. EATING - STEP 4: Does the patient need only supervision, cuing, coaxing OR help to apply an orthosis OR help to cut fo od, open containers, pour liquids, or butter bread? Yes. EATING - SCORE: 5-SUP GROOMING: Comb/brush hair Wash, rinse, and dry face Wash, rinse, and dry hands GROOMING - STEP 1: Does the patient require the assistance of a person or device, or need extra time when grooming? Yes. GROOMING - STEP 2: Does the patient require the assistance of a helper? Yes. GROOMING - STEP 3: How much assistance does the patient require from the helper? Incidental touching assistance from the helper while grooming GROOMING - SCORE: 4-MIN BATHING: Activity did not occur on this shift BATHING - SCORE: 0-UNK DRESSING - UPPER BODY: Activity did not occur on this shift ARTICLES SCORE Total number of steps: 0 DRESSING - UPPER BODY - SCORE: 0-UNK DRESSING - LOWER BODY: Activity did not occur on this shift Elastic waist pants (three steps) Sock - Left foot (one step) Sock - Right foot (one step) Tied or buckled shoe - Left foot (two steps) Tied or buckled shoe - Right foot (two steps) Underwear (three steps) ARTICLES SCORE Total number of steps: 12 DRESSING - LOWER BODY - STEP 1: Does the patient require help from a person or device, or need extra time when dressing below the [address]? Yes. DRESSING - LOWER BODY - STEP 2: Does the patient require the assistance of a helper? Yes. DRESSING - LOWER BODY - STEP 3: Does the helper touch the patient while dressing? Yes. DRESSING - LOWER BODY - STEP 4: How many of the total steps does the patient complete on his/her own? 0 DRESSING - LOWER BODY - STEP 5: Does patient require total assistance for dressing below the waist such as the helper holding clothin g and performing basically all the activities? Yes. DRESSING - LOWER BODY - SCORE: 1-DEP TOILETING: TOILETING - STEP 1: Does the patient require the assistance of a person or device, or need extra time with toileting? Yes . TOILETING - STEP 2: Does the patient require the assistance of a helper? Yes. TOILETING - STEP 3: How much assistance does the patient require from the helper? Hands-on assistance from the helper TOILETING - STEP 4: Of the 3 tasks: 1) Adjusting clothing prior to use, 2) Cleansing of perineal area, 3) Adjusting clot merissa after use; How many tasks does the patient perform WITHOUT assistance of the helper? No tasks; h raquel performs all three tasks TOILETING - SCORE: 1-DEP BLADDER MANAGEMENT: BLADDER MANAGEMENT - STEP 1: Does the patient control the bladder completely and intentionally without equipment or devices or med ications, and is always continent? No. BLADDER MANAGEMENT - STEP 2: Does the patient require the assistance of a helper? Yes. BLADDER MANAGEMENT - STEP 3: How much assistance does the patient require from the helper? Patient requires contact assistance fro m the helper BLADDER MANAGEMENT - STEP 4: How much contact assistance does the patient require from the helper? Patient requires maximal assist ance, and only performs 25% to 49% of bladder management tasks BLADDER MANAGEMENT - SCORE: 2-MAX BLADDER MANAGEMENT - FREQUENCY OF ACCIDENTS: BLADDER MANAGEMENT(FA) - STEP 1: How many accidents has the patient had during the current shift? 0 BOWEL MANAGEMENT: Activity did not occur on this shift BOWEL MANAGEMENT - SCORE: 7-IND BOWEL MANAGEMENT - FREQUENCY OF ACCIDENTS: BOWEL MANAGEMENT(FA) - STEP 1: How many accidents has the patient had during the current shift? 0 TRANSFERS: BED, CHAIR, WHEELCHAIR: Patient requires more than one helper and/or the use of a mechanical lift is utilized TRANSFERS: BED, CHAIR, WHEELCHAIR - SCORE: 1-DEP TRANSFERS: TOILET: Patient requires more than one helper and/or the use of a mechanical lift is utilized TRANSFERS: TOILET - SCORE: 1-DEP TRANSFERS: SHOWER: Activity did not occur on this shift TRANSFERS: SHOWER - SCORE: 0-UNK TRANSFERS: TUB: Activity did not occur on this shift TRANSFERS: TUB - SCORE: 0-UNK LOCOMOTION: WALK: Activity did not occur on this shift LOCOMOTION: WALK - SCORE: 0-UNK LOCOMOTION: WHEELCHAIR: Activity did not occur on this shift LOCOMOTION: WHEELCHAIR - SCORE: 0-UNK COMPREHENSION: COMPREHENSION: TYPE: Both COMPREHENSION - STEP 1: Does the patient require help from a person or device, or need extra time to understand complex and a bstract ideas (such as current events, finances, discharge planning, medical issues, relationships, e tc)? Yes. COMPREHENSION - STEP 2: Does the patient require help to understand questions or statements about basic needs or ideas (such as hunger, thirst, sleep, safety, daily schedule, room location, or discomfort) half or more of the t aneudy? No. COMPREHENSION - STEP 3: How often does the patient need help to understand directions and conversation about basic needs? Les s than 10% of the time COMPREHENSION - SCORE: 5-SUP EXPRESSION EXPRESSION: TYPE: Both EXPRESSION - STEP 1: Does the patient require help from a person or device, or need extra time expressing complex and abst ract ideas (such as current events, finances, discharge planning, medical issues, relationships, etc) ? Yes. EXPRESSION - STEP 2: Does the patient require help to express basic necessities or ideas (such as hunger, thirst, sleep, s afety, daily schedule, room location, or discomfort) half or more of the time? No. EXPRESSION - STEP 3: How often does the patient need help to express directions and conversation about basic needs? Less t smiley 10% of the time EXPRESSION - SCORE: 5-SUP SOCIAL INTERACTION: SOCIAL INTERACTION - STEP 1: Does the patient require a helper to interact with others in social and therapeutic situations? Yes. SOCIAL INTERACTION - STEP 2: Does the patient interact appropriately half or more of the time? Yes. SOCIAL INTERACTION - STEP 3: How often does the patient need help to interact appropriately? Less than 10% of the time SOCIAL INTERACTION - SCORE: 5-SUP PROBLEM SOLVING: PROBLEM SOLVING - STEP 1: Does the patient need help from a person or device, or need extra time to solve complex problems such as managing a checking account or confronting interpersonal problems? Yes. PROBLEM SOLVING - STEP 2: Does the patient solve basic routine problems half or more of the time? Yes. PROBLEM SOLVING - STEP 3: How often does the patient need help to solve basic routine problems? Less than 10% of the time PROBLEM SOLVING - SCORE: 5-SUP MEMORY: MEMORY - STEP 1: Does the patient need help from a person or device, or need extra time to remember frequently encount ered people, daily routines, and executing requests? Yes. MEMORY - STEP 2: How often does the patient need help to remember frequently encountered people, daily routines, and e xecuting requests? Less than 10% of the time MEMORY - SCORE: 5-SUP SIGNATURE PANEL: The following modified sections: Eating - Score, Grooming - Score, Bathing - Score, Dressing - Upper Body - Score, Dressing - Lower Body - Score, Toileting - Score, Bladder Management - Score, Transfers : Bed, Chair, Wheelchair - Score, Transfers: Toilet - Score, Transfers: Shower - Score, Transfers: Tu b - Score, Locomotion: Walk - Score, Locomotion: Wheelchair - Score, Comprehension - Score, Expressio n - Score, Social Interaction - Score, Problem Solving - Score, Bowel Management - Score, Memory - Sc ore were [electronically] signed by Penelope Medrano C.N.A. on ThuJul 14 2018 13:50:56 T-0500 ([facility])
--- NOTE | 2018-07-14 14:05 | FAST ---
SHIFT START DATE/TIME: 07/14/2018 07:00 (CDT) SHIFT END DATE/TIME: 07/14/2018 19:00 (CDT) NAME PRICE ROGERS DATE OF : 1940 DATE OF ADMISSION: 07/05/2018 18:33 (CDT) PHONE: AGE: 78 N# [id number] GENDER: Male ENCOUNTER PHYSICIAN: Dr. Abdirahman Zepeda M.D. 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 EATING: EATING - STEP 1: Does the patient require the assistance of a person or device, or need extra time when eating? Yes. EATING - STEP 2: Does the patient require the assistance of a helper? Yes. EATING - STEP 3: Does the patient perform half or more of the eating tasks? Yes. EATING - STEP 4: Does the patient need only supervision, cuing, coaxing OR help to apply an orthosis OR help to cut fo od, open containers, pour liquids, or butter bread? Yes. EATING - SCORE: 5-SUP GROOMING: Comb/brush hair Oral care Wash, rinse, and dry face Wash, rinse, and dry hands GROOMING - STEP 1: Does the patient require the assistance of a person or device, or need extra time when grooming? Yes. GROOMING - STEP 2: Does the patient require the assistance of a helper? Yes. GROOMING - STEP 3: How much assistance does the patient require from the helper? Incidental touching assistance from the helper while grooming GROOMING - SCORE: 4-MIN BATHING: Activity did not occur on this shift BATHING - SCORE: 0-UNK DRESSING - UPPER BODY: Activity did not occur on this shift ARTICLES SCORE Total number of steps: 0 DRESSING - UPPER BODY - SCORE: 0-UNK DRESSING - LOWER BODY: Elastic waist pants (three steps) Sock - Left foot (one step) Tied or buckled shoe - Left foot (two steps) Tied or buckled shoe - Right foot (two steps) Underwear (three steps) ARTICLES SCORE Total number of steps: 11 DRESSING - LOWER BODY - STEP 1: Does the patient require help from a person or device, or need extra time when dressing below the [address]? Yes. DRESSING - LOWER BODY - STEP 2: Does the patient require the assistance of a helper? Yes. DRESSING - LOWER BODY - STEP 3: Does the helper touch the patient while dressing? Yes. DRESSING - LOWER BODY - STEP 4: How many of the total steps does the patient complete on his/her own? 0 DRESSING - LOWER BODY - STEP 5: Does patient require total assistance for dressing below the waist such as the helper holding clothin g and performing basically all the activities? Yes. DRESSING - LOWER BODY - SCORE: 1-DEP TOILETING: TOILETING - STEP 1: Does the patient require the assistance of a person or device, or need extra time with toileting? Yes . TOILETING - STEP 2: Does the patient require the assistance of a helper? Yes. TOILETING - STEP 3: How much assistance does the patient require from the helper? Hands-on assistance from the helper TOILETING - STEP 4: Of the 3 tasks: 1) Adjusting clothing prior to use, 2) Cleansing of perineal area, 3) Adjusting clot merissa after use; How many tasks does the patient perform WITHOUT assistance of the helper? No tasks; h elper performs all three tasks TOILETING - SCORE: 1-DEP BLADDER MANAGEMENT: [place] removes incontinent device (Depends, pull ups, etc.); cleans the patient after accident / inco ntinent episode; and, applies new incontinent device. BLADDER MANAGEMENT - SCORE: 1-DEP BLADDER MANAGEMENT - FREQUENCY OF ACCIDENTS: BLADDER MANAGEMENT(FA) - STEP 1: How many accidents has the patient had during the current shift? 2 BOWEL MANAGEMENT: Activity did not occur on this shift BOWEL MANAGEMENT - SCORE: 7-IND BOWEL MANAGEMENT - FREQUENCY OF ACCIDENTS: BOWEL MANAGEMENT(FA) - STEP 1: How many accidents has the patient had during the current shift? 0 TRANSFERS: BED, CHAIR, WHEELCHAIR: Patient requires more than one helper and/or the use of a mechanical lift is utilized TRANSFERS: BED, CHAIR, WHEELCHAIR - SCORE: 1-DEP TRANSFERS: TOILET: Patient requires more than one helper and/or the use of a mechanical lift is utilized TRANSFERS: TOILET - SCORE: 1-DEP TRANSFERS: SHOWER: Activity did not occur on this shift TRANSFERS: SHOWER - SCORE: 0-UNK TRANSFERS: TUB: Activity did not occur on this shift TRANSFERS: TUB - SCORE: 0-UNK LOCOMOTION: WALK: Activity did not occur on this shift LOCOMOTION: WALK - SCORE: 0-UNK LOCOMOTION: WHEELCHAIR: Activity did not occur on this shift LOCOMOTION: WHEELCHAIR - SCORE: 0-UNK COMPREHENSION: COMPREHENSION: TYPE: Both COMPREHENSION - STEP 1: Does the patient require help from a person or device, or need extra time to understand complex and a bstract ideas (such as current events, finances, discharge planning, medical issues, relationships, e tc)? Yes. COMPREHENSION - STEP 2: Does the patient require help to understand questions or statements about basic needs or ideas (such as hunger, thirst, sleep, safety, daily schedule, room location, or discomfort) half or more of the t aneudy? No. COMPREHENSION - STEP 3: How often does the patient need help to understand directions and conversation about basic needs? Les s than 10% of the time COMPREHENSION - SCORE: 5-SUP EXPRESSION EXPRESSION: TYPE: Both EXPRESSION - STEP 1: Does the patient require help from a person or device, or need extra time expressing complex and abst ract ideas (such as current events, finances, discharge planning, medical issues, relationships, etc) ? Yes. EXPRESSION - STEP 2: Does the patient require help to express basic necessities or ideas (such as hunger, thirst, sleep, s afety, daily schedule, room location, or discomfort) half or more of the time? No. EXPRESSION - STEP 3: How often does the patient need help to express directions and conversation about basic needs? Less t smiley 10% of the time EXPRESSION - SCORE: 5-SUP SOCIAL INTERACTION: SOCIAL INTERACTION - STEP 1: Does the patient require a helper to interact with others in social and therapeutic situations? Yes. SOCIAL INTERACTION - STEP 2: Does the patient interact appropriately half or more of the time? Yes. SOCIAL INTERACTION - STEP 3: How often does the patient need help to interact appropriately? Less than 10% of the time SOCIAL INTERACTION - SCORE: 5-SUP PROBLEM SOLVING: PROBLEM SOLVING - STEP 1: Does the patient need help from a person or device, or need extra time to solve complex problems such as managing a checking account or confronting interpersonal problems? Yes. PROBLEM SOLVING - STEP 2: Does the patient solve basic routine problems half or more of the time? Yes. PROBLEM SOLVING - STEP 3: How often does the patient need help to solve basic routine problems? Less than 10% of the time PROBLEM SOLVING - SCORE: 5-SUP MEMORY: MEMORY - STEP 1: Does the patient need help from a person or device, or need extra time to remember frequently encount ered people, daily routines, and executing requests? Yes. MEMORY - STEP 2: How often does the patient need help to remember frequently encountered people, daily routines, and e xecuting requests? Less than 10% of the time MEMORY - SCORE: 5-SUP SIGNATURE PANEL: The following modified sections: Eating - Score, Grooming - Score, Bathing - Score, Dressing - Upper Body - Score, Dressing - Lower Body - Score, Toileting - Score, Bladder Management - Score, Bowel Man agement - Score, Transfers: Bed, Chair, Wheelchair - Score, Transfers: Toilet - Score, Transfers: Melissa wer - Score, Transfers: Tub - Score, Locomotion: Walk - Score, Locomotion: Wheelchair - Score, Compre hension - Score, Expression - Score, Social Interaction - Score, Problem Solving - Score, Memory - Sc ore were [electronically] signed by Vinay NelsonNSin on ThuJul 14 2018 14:03:58 T-0500 ([facility])
[2018-07-14] MEDS: MAGNESIUM OXIDE 400 MG TAB PO SCH (19:11)
[2018-07-14] MEDS: DOCUSATE NA/SENNA CONC 1 TAB PO SCH (20:05)
[2018-07-14] MEDS: ATORVASTATIN 10 MG TAB PO SCH (20:05)
[2018-07-14] MEDS: ALPRAZOLAM 1 MG TABLET PO SCH (20:05)
--- NOTE | 2018-07-15 01:28 | FAST ---
SHIFT START DATE/TIME: 07/14/2018 19:00 (CDT) SHIFT END DATE/TIME: 07/15/2018 07:00 (CDT) NAME PRICE ROGERS DATE OF : 1940 DATE OF ADMISSION: 07/05/2018 18:33 (CDT) PHONE: AGE: 78 SSN# [id number] GENDER: Male ENCOUNTER PHYSICIAN: Dr. Abdirahman Zepeda M.D. 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 EATING: Activity did not occur on this shift EATING - SCORE: 0-UNK GROOMING: Activity did not occur on this shift GROOMING - SCORE: 0-UNK BATHING: Activity did not occur on this shift BATHING - SCORE: 0-UNK DRESSING - UPPER BODY: Activity did not occur on this shift ARTICLES SCORE Total number of steps: 0 DRESSING - UPPER BODY - SCORE: 0-UNK DRESSING - LOWER BODY: Activity did not occur on this shift ARTICLES SCORE Total number of steps: 0 DRESSING - LOWER BODY - SCORE: 0-UNK TOILETING: Activity did not occur on this shift TOILETING - SCORE: 0-UNK BLADDER MANAGEMENT: [place] removes incontinent device (Depends, pull ups, etc.); cleans the patient after accident / inco ntinent episode; and, applies new incontinent device. Patient spills the urinal and [place] changes patient's linen or clothing. BLADDER MANAGEMENT - SCORE: 1-DEP BLADDER MANAGEMENT - FREQUENCY OF ACCIDENTS: BLADDER MANAGEMENT(FA) - STEP 1: How many accidents has the patient had during the current shift? 1 BOWEL MANAGEMENT: Activity did not occur on this shift BOWEL MANAGEMENT - SCORE: 7-IND TRANSFERS: BED, CHAIR, WHEELCHAIR: Activity did not occur on this shift TRANSFERS: BED, CHAIR, WHEELCHAIR - SCORE: 0-UNK TRANSFERS: TOILET: Activity did not occur on this shift TRANSFERS: TOILET - SCORE: 0-UNK TRANSFERS: SHOWER: Activity did not occur on this shift TRANSFERS: SHOWER - SCORE: 0-UNK TRANSFERS: TUB: Activity did not occur on this shift TRANSFERS: TUB - SCORE: 0-UNK LOCOMOTION: WALK: Activity did not occur on this shift LOCOMOTION: WALK - SCORE: 0-UNK LOCOMOTION: WHEELCHAIR: Activity did not occur on this shift LOCOMOTION: WHEELCHAIR - SCORE: 0-UNK COMPREHENSION: COMPREHENSION: TYPE: Both COMPREHENSION - STEP 1: Does the patient require help from a person or device, or need extra time to understand complex and a bstract ideas (such as current events, finances, discharge planning, medical issues, relationships, e tc)? No. COMPREHENSION - STEP 2: Does the patient need extra time, require an assistive device (such as glasses for visual comprehensi on or a hearing aid for auditory comprehension) or does s/he have mild difficulty understanding compl ex and abstract information? Yes. COMPREHENSION - SCORE: 6-SILVESTRE EXPRESSION EXPRESSION: TYPE: Both EXPRESSION - STEP 1: Does the patient require help from a person or device, or need extra time expressing complex and abst ract ideas (such as current events, finances, discharge planning, medical issues, relationships, etc) ? No. EXPRESSION - STEP 2: Does the patient need extra time, require an assistive device (such as augmentive communication syste m or a communication board), OR does s/he have mild difficulty expressing complex and abstract ideas (including mild dysarthria or mild word-find problems)? Yes. EXPRESSION - SCORE: 6-SILVESTRE SOCIAL INTERACTION: SOCIAL INTERACTION - STEP 1: Does the patient require a helper to interact with others in social and therapeutic situations? No. SOCIAL INTERACTION - STEP 2: Does the patient need extra time in social situations, OR does s/he interact with staff, other patien ts, and family members ONLY in structured environments, OR does s/he require medication for social in teraction? Yes, patient needs extra time SOCIAL INTERACTION - SCORE: 6-SILVESTRE PROBLEM SOLVING: PROBLEM SOLVING - STEP 1: Does the patient need help from a person or device, or need extra time to solve complex problems such as managing a checking account or confronting interpersonal problems? No. PROBLEM SOLVING - STEP 2: Does the patient require extra time to make decisions or solve problems, OR does s/he have slight dif ficulty reading, initiating, or self-correcting in unfamiliar situations? Yes, patient needs extra ti me. PROBLEM SOLVING - SCORE: 6-SILVESTRE MEMORY: MEMORY - STEP 1: Does the patient need help from a person or device, or need extra time to remember frequently encount ered people, daily routines, and executing requests? No. MEMORY - STEP 2: Does the patient have slight difficulty recognizing frequently encountered people, daily routines, or executing requests without the need for repetition or using self-initiated or environmental cues to remember? No. MEMORY - SCORE: 7-IND SIGNATURE PANEL: The following modified sections: Eating - Score, Grooming - Score, Bathing - Score, Dressing - Upper Body - Score, Dressing - Lower Body - Score, Toileting - Score, Bladder Management - Score, Bowel Man agement - Score, Transfers: Bed, Chair, Wheelchair - Score, Transfers: Toilet - Score, Transfers: Melissa wer - Score, Transfers: Tub - Score, Locomotion: Walk - Score, Locomotion: Wheelchair - Score, Compre hension - Score, Expression - Score, Social Interaction - Score, Problem Solving - Score, Memory - Sc ore were [electronically] signed by Kaylen Nguyen RN on ThuJul 15 2018 01:27:41 T-0500 ([facility] Time)
[2018-07-15 07:06] LABS: Absolute Lymphocytes (CBC) 1.8 K/uL (0.7-4.9); Basophils % 0.7 % (0-1.3); Hematocrit 34.9 % (39.6-49.0); Lymphocytes % 23.6 % (15.3-44.8); MPV 9.2 fL (7.6-11.3); RBC Red Blood Cell Count 3.66 M/uL (4.33-5.43)
[2018-07-15] MEDS: MAGNESIUM OXIDE 400 MG TAB PO SCH ×2 (07:11→19:02)
[2018-07-15] MEDS: CRANBERRY FRUIT EXTRACT 200 MG CAP PO SCH ×2 (07:11→19:02)
[2018-07-15] MEDS: FUROSEMIDE 20 MG TABLET PO SCH (07:12)
[2018-07-15] MEDS: FLECAINIDE 100 MG TAB PO SCH ×2 (07:12→19:02)
[2018-07-15] MEDS: VALSARTAN 80 MG TAB PO SCH (07:13)
[2018-07-15] MEDS: HYDROCODONE/APAP 5/325 MG TAB PO PRN ×3 (07:14→17:22)
[2018-07-15] MEDS: APIXABAN 2.5 MG TABLET PO SCH ×2 (07:14→19:02)
[2018-07-15] MEDS: CITALOPRAM 10 MG TABLET PO SCH (07:14)
[2018-07-15] MEDS: LISINOPRIL 5 MG TAB PO SCH (07:20)
[2018-07-15 07:23] LABS: Albumin 2.8 g/dL (3.4-5.0); Potassium 4.3 mmol/L (3.5-5.1); Prealbumin 20.7 mg/dL (20-40)
[2018-07-15] MEDS: ONDANSETRON 4 MG (ODT) TAB PO PRN (07:24)
[2018-07-15] MEDS: GABAPENTIN 300 MG CAP PO SCH ×3 (08:41→21:07)
[2018-07-15] MEDS: LIDOCAINE 5% PATCH TOP SCH (10:44)
--- NOTE | 2018-07-15 14:20 | FAST ---
SHIFT START DATE/TIME: 07/15/2018 07:00 (CDT) SHIFT END DATE/TIME: 07/15/2018 19:00 (CDT) NAME PRICE ROGERS DATE OF : 1940 DATE OF ADMISSION: 07/05/2018 18:33 (CDT) PHONE: AGE: 78 N# [id number] GENDER: Male ENCOUNTER PHYSICIAN: Dr. Abdirahman Zepeda M.D. 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 EATING: EATING - STEP 1: Does the patient require the assistance of a person or device, or need extra time when eating? Yes. EATING - STEP 2: Does the patient require the assistance of a helper? Yes. EATING - STEP 3: Does the patient perform half or more of the eating tasks? Yes. EATING - STEP 4: Does the patient need only supervision, cuing, coaxing OR help to apply an orthosis OR help to cut fo od, open containers, pour liquids, or butter bread? Yes. EATING - SCORE: 5-SUP GROOMING: Comb/brush hair Oral care Wash, rinse, and dry face Wash, rinse, and dry hands GROOMING - STEP 1: Does the patient require the assistance of a person or device, or need extra time when grooming? Yes. GROOMING - STEP 2: Does the patient require the assistance of a helper? Yes. GROOMING - STEP 3: How much assistance does the patient require from the helper? Only prior equipment preparation/set up from the helper GROOMING - SCORE: 5-SUP BATHING: Activity did not occur on this shift BATHING - SCORE: 0-UNK DRESSING - UPPER BODY: Activity did not occur on this shift ARTICLES SCORE Total number of steps: 0 DRESSING - UPPER BODY - SCORE: 0-UNK DRESSING - LOWER BODY: Elastic waist pants (three steps) Sock - Left foot (one step) Sock - Right foot (one step) Tied or buckled shoe - Left foot (two steps) Tied or buckled shoe - Right foot (two steps) Underwear (three steps) ARTICLES SCORE Total number of steps: 12 DRESSING - LOWER BODY - STEP 1: Does the patient require help from a person or device, or need extra time when dressing below the [address] st? Yes. DRESSING - LOWER BODY - STEP 2: Does the patient require the assistance of a helper? Yes. DRESSING - LOWER BODY - STEP 3: Does the helper touch the patient while dressing? Yes. DRESSING - LOWER BODY - STEP 4: How many of the total steps does the patient complete on his/her own? 0 DRESSING - LOWER BODY - STEP 5: Does patient require total assistance for dressing below the waist such as the helper holding clothin g and performing basically all the activities? Yes. DRESSING - LOWER BODY - SCORE: 1-DEP DRESSING - LOWER BODY - COMMENTS: Left side of body flaccid TOILETING: TOILETING - STEP 1: Does the patient require the assistance of a person or device, or need extra time with toileting? Yes . TOILETING - STEP 2: Does the patient require the assistance of a helper? Yes. TOILETING - STEP 3: How much assistance does the patient require from the helper? Hands-on assistance from the helper TOILETING - STEP 4: Of the 3 tasks: 1) Adjusting clothing prior to use, 2) Cleansing of perineal area, 3) Adjusting clot merissa after use; How many tasks does the patient perform WITHOUT assistance of the helper? No tasks; h raquel performs all three tasks TOILETING - SCORE: 1-DEP TOILETING - COMMENTS: Left side of body flaccid BLADDER MANAGEMENT: [place] removes incontinent device (Depends, pull ups, etc.); cleans the patient after accident / inco ntinent episode; and, applies new incontinent device. BLADDER MANAGEMENT - SCORE: 1-DEP BLADDER MANAGEMENT - FREQUENCY OF ACCIDENTS: BLADDER MANAGEMENT(FA) - STEP 1: How many accidents has the patient had during the current shift? 2 BOWEL MANAGEMENT: BOWEL MANAGEMENT - STEP 1: Does the patient control bowels completely and intentionally without equipment devices or medications AND is always continent? No. BOWEL MANAGEMENT - STEP 2: Does the patient require the assistance of a helper? Yes. BOWEL MANAGEMENT - STEP 3: How much assistance does the patient require from the helper? Patient requires maximal assistance - p erforms 25% to 49 % of bowel management tasks BOWEL MANAGEMENT - SCORE: 2-MAX BOWEL MANAGEMENT - COMMENTS: [place] uses Christiana lift to position pt on and off toilet-left side flaccid BOWEL MANAGEMENT - FREQUENCY OF ACCIDENTS: BOWEL MANAGEMENT(FA) - STEP 1: How many accidents has the patient had during the current shift? 0 TRANSFERS: BED, CHAIR, WHEELCHAIR: Patient requires more than one helper and/or the use of a mechanical lift is utilized TRANSFERS: BED, CHAIR, WHEELCHAIR - SCORE: 1-DEP TRANSFERS: TOILET: Patient requires more than one helper and/or the use of a mechanical lift is utilized TRANSFERS: TOILET - SCORE: 1-DEP TRANSFERS: SHOWER: Activity did not occur on this shift TRANSFERS: SHOWER - SCORE: 0-UNK TRANSFERS: TUB: Activity did not occur on this shift TRANSFERS: TUB - SCORE: 0-UNK LOCOMOTION: WALK: Activity did not occur on this shift LOCOMOTION: WALK - SCORE: 0-UNK LOCOMOTION: WHEELCHAIR: Activity did not occur on this shift LOCOMOTION: WHEELCHAIR - SCORE: 0-UNK COMPREHENSION: COMPREHENSION: TYPE: Both COMPREHENSION - STEP 1: Does the patient require help from a person or device, or need extra time to understand complex and a bstract ideas (such as current events, finances, discharge planning, medical issues, relationships, e tc)? No. COMPREHENSION - STEP 2: Does the patient need extra time, require an assistive device (such as glasses for visual comprehensi on or a hearing aid for auditory comprehension) or does s/he have mild difficulty understanding compl ex and abstract information? Yes. COMPREHENSION - SCORE: 6-SILVESTRE EXPRESSION EXPRESSION: TYPE: Both EXPRESSION - STEP 1: Does the patient require help from a person or device, or need extra time expressing complex and abst ract ideas (such as current events, finances, discharge planning, medical issues, relationships, etc) ? Yes. EXPRESSION - STEP 2: Does the patient require help to express basic necessities or ideas (such as hunger, thirst, sleep, s afety, daily schedule, room location, or discomfort) half or more of the time? No. EXPRESSION - STEP 3: How often does the patient need help to express directions and conversation about basic needs? Less t smiley 10% of the time EXPRESSION - SCORE: 5-SUP SOCIAL INTERACTION: SOCIAL INTERACTION - STEP 1: Does the patient require a helper to interact with others in social and therapeutic situations? Yes. SOCIAL INTERACTION - STEP 2: Does the patient interact appropriately half or more of the time? Yes. SOCIAL INTERACTION - STEP 3: How often does the patient need help to interact appropriately? Less than 10% of the time SOCIAL INTERACTION - SCORE: 5-SUP PROBLEM SOLVING: PROBLEM SOLVING - STEP 1: Does the patient need help from a person or device, or need extra time to solve complex problems such as managing a checking account or confronting interpersonal problems? Yes. PROBLEM SOLVING - STEP 2: Does the patient solve basic routine problems half or more of the time? Yes. PROBLEM SOLVING - STEP 3: How often does the patient need help to solve basic routine problems? 10%-24% of the time PROBLEM SOLVING - SCORE: 4-MIN MEMORY: MEMORY - STEP 1: Does the patient need help from a person or device, or need extra time to remember frequently encount ered people, daily routines, and executing requests? Yes. MEMORY - STEP 2: How often does the patient need help to remember frequently encountered people, daily routines, and e xecuting requests? 10% - 24% of the time MEMORY - SCORE: 4-MIN SIGNATURE PANEL: The following modified sections: Eating - Score, Grooming - Score, Bathing - Score, Dressing - Upper Body - Score, Dressing - Lower Body - Score, Dressing - Lower Body - Comments:, Toileting - Score, To ileting - Comments:, Bladder Management - Score, Bowel Management - Score, Bowel Management - Comment s:, Transfers: Bed, Chair, Wheelchair - Score, Transfers: Toilet - Score, Transfers: Shower - Score, Transfers: Tub - Score, Locomotion: Walk - Score, Locomotion: Wheelchair - Score, Comprehension - Sco re, Expression - Score, Social Interaction - Score, Problem Solving - Score, Memory - Score were [tati ctronically] signed by Penelope Medrano C.N.A. on ThuJul 15 2018 14:19:05 T-0500 ([facility])
[2018-07-15] MEDS: TRAMADOL HCL 50 MG TAB PO PRN (14:47)
--- NOTE | 2018-07-15 19:10 | R.PN ---
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 SUBJECTIVE: Pt denied any Shortness of Breath. Pt denied any depression. Patient states that pain is under control. Hgb 11.7, prealbumin 20.7. Functional transfers done with total assistance. He requires total assistance for transfers and all activities of daily living. His legs buckle while attempting to stand. He stood in the parallel bars with moderate assistance. VITAL SIGNS Temperature: 97.6 F SBP/DBP: 117/72 Pulse: 67 Resp: 16 MEDICATION ALLERGIES: No Known Drug Allergies (NKDA) ENVIRONMENTAL ALLERGIES: None Known - Substance Allergies None Known - Other Allergies None Known NURSING: - Shower allowing shower - Bladder care per protocol - Skin care per protocol PRECAUTIONS: - Weight Bearing Precaution WBAT left LE ACTIVITIES OOB only with supervision THERAPIES: - Occupational Therapy Evaluate and Treat. Visual Perceptual Training. Cognitive Retraining. - Speech Therapy Cognitive Training. Memory Strategies. Expressive Language Skills. Speech Intelligibility Training. R eceptive Language Skills. Dysphagia Therapy. - Physical Therapy Evaluate and Treat. PHYSICAL EXAM - Gen Alert and awake Lying in bed No apparent distress Oriented to: person, time, and place - Skin No beakdown No abnormalities - Eyes No abnormalities - ENMT No abnormalities - Neck No abnormalities - CVS RRR - Chest No abnormalities - Resp Clear to auscultation - Abd + bowel sounds - GI nondistended Deferred - No abnormalities - Ext Mild left lower extremity edema. - MSK 0/5 strength in the left upper extremity and 2+/5 weakness in left lower extremity. - Neuro 0/5 strength in the left upper extremity and 2+/5 weakness in left lower extremity. - Psych No abnormalities ASSESSMENT: Pt. is a 78 yo Right-handed white male.On 06/25/2018 Pt. presented to [facility] with sudden on set of left-side weakness.On 06/25/2018 he was admitted to [facility] with diagnosis Right MCA. His impairment category is Stroke 01 - Left Body (Right Brain) (01.1).Pre-morbidly, Pt. was independ ent/mod-I in Self-Care, Sphincter Control, Transfers Control, Locomotion, Communication, and Social C ognition; and he had good Sphincter Control.Currently, he has deficits of Self-Care, Transfers Contro l, Locomotion, Communication, Social Cognition, Endurance, Balance, and Safety Awareness.Pt. is now r eferred to [facility] for acute in-patient rehabilitation in order to maximize patient's functional independence in activities of daily living, strength, ROM, and mobility.- Rehab Goal Patient has realistic goal of being discharged at assistance level 6-Maria E to reside at Home with Fam linda/Relatives. MDM/PLAN: - Physical Therapy Gait dysfunction - to improve, our physical therapists will perform initial evaluation of pt's statu s upon admission and devise an individualized program for Gait Training, and Wheel Chair mobility Inability to transfer - to improve, our physical therapists will perform initial evaluation of pt's status upon admission and devise an individualized program for Bed mobility Need for home safety evaluation - to improve, our physical therapists will perform initial evaluatio n of pt's status upon admission and devise an individualized program for Home Evaluation Need in caregiver upon discharge - to improve, our physical therapists will perform initial evaluati on of pt's status upon admission and devise an individualized program for Caregiver Training Edema - to improve, our physical therapists will perform initial evaluation of pt's status upon admi ssion and devise an individualized program for Elevation Training, and Lymphedema Therapy New precaution - to improve, our physical therapists will perform initial evaluation of pt's status upon admission and devise an individualized program for Patient precaution education Poor balance - to improve, our physical therapists will perform initial evaluation of pt's status up on admission and devise an individualized program for Balance Training Poor endurance - to improve, our physical therapists will perform initial evaluation of pt's status upon admission and devise an individualized program for Endurance Training Weakness - to improve, our physical therapists will perform initial evaluation of pt's status upon a dmission and devise an individualized program for Aquatic Therapy, Neuromuscular Reeducation, and Str engthening Achieving independence - to improve, our physical therapists will perform initial evaluation of pt's status upon admission and devise an individualized program for Community Reintegration Activities - Occupational Therapy ADL deficits - to improve, our occupation therapists will perform initial evaluation of pt's status upon admission and devise an individualized program for Bathing, Bed mobility, Community Reintegratio n, Cooking, Dressing, Eating, Fine Motor Skills, Grooming, Homemaking, Kitchen Mobility, Laundry, Pat ient Education, Safety Awareness, Splinting - Positioning, Transfers(Toilet, Tub, Shower), and Wheel Chair Management Cognitive deficits - to improve, our occupation therapists will perform initial evaluation of pt's s tatus upon admission and devise an individualized program for Cognition - orientation Need for pharmacist critical care - to improve, our occupation therapists will perform initial evaluation of pt's status upon admission and devise an individualized program for Caregiver Training Weakness - to improve, our occupation therapists will perform initial evaluation of pt's status upon admission and devise an individualized program for Aquatic Therapy, Balance, Endurance, UE ROM, and UE strengthening - Diet Type Continue Regular - Diet - Liquid Texture Continue Thin - Tube Feed Continue N/A - Bladder care per protocol - Weight Bearing Precaution WBAT left LE - Skin care per protocol - Diet - Solid Texture Continue Regular Continue Mechanical Soft (Ground) - Shower allowing shower for Dementia, TBI, Stroke, or others FUNCTIONAL STATUS: UPDATED AT WEEKLY TEAM CONFERENCE - Bladder Same accident frequency: 7-Ind - No accidents in the past 7 days - Bowel Same accident frequency: 7-Ind - No accidents in the past 7 days - Walking Same score based on distance walked: 0(N/A) - Wheelchair Same score based on distance traveled: 0(N/A) FUNCTIONAL STATUS: - Self-Care A. Eating sup B. Grooming Anil C. Bathing maxA D. Dressing - Upper Anil E. Dressing - Lower maxA F. Toileting maxA - Sphincter Control G: Bladder control Ind H: Bowel control Ind - Transfers Control I. Bed/Chair/Wheelchair maxA J. Toilet maxA K. Tub/Shower ADNO - Locomotion L. Walk/Wheelchair (C) Dep L. Walk/Wheelchair (W) Dep M. Stairs ADNO - Communication N. Comprehension (B) Anil O. Expression (B) Anil - Social Cognition P. Social Interaction Anil Q. Problem Solving Anil R. Memory Anil - Endurance Fair - Balance Poor - Safety Awareness Fair CURRENT FUNC. DEFICITS: Self-Care, Transfers Control, Locomotion, Communication, Social Cognition, Endurance, Balance, and Sa fety Awareness SIGNATURE PANEL: (CDT)
[2018-07-15] MEDS: ALPRAZOLAM 1 MG TABLET PO SCH (21:07)
[2018-07-15] MEDS: ATORVASTATIN 10 MG TAB PO SCH (21:07)
[2018-07-15] MEDS: DOCUSATE NA/SENNA CONC 1 TAB PO SCH (21:07)
--- NOTE | 2018-07-16 04:21 | FAST ---
SHIFT START DATE/TIME: 07/15/2018 19:00 (CDT) SHIFT END DATE/TIME: 07/16/2018 07:00 (CDT) NAME PRICE ROGERS DATE OF : 1940 DATE OF ADMISSION: 07/05/2018 18:33 (CDT) PHONE: AGE: 78 SSN# [id number] GENDER: Male ENCOUNTER PHYSICIAN: Dr. Abdirahman Zepeda M.D. 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 EATING: Activity did not occur on this shift EATING - SCORE: 0-UNK GROOMING: Activity did not occur on this shift GROOMING - SCORE: 0-UNK BATHING: Activity did not occur on this shift BATHING - SCORE: 0-UNK DRESSING - UPPER BODY: Patient is not dressing in public clothing ARTICLES SCORE Total number of steps: 0 DRESSING - UPPER BODY - SCORE: 0-UNK DRESSING - LOWER BODY: Patient is not dressing in public clothing ARTICLES SCORE Total number of steps: 0 DRESSING - LOWER BODY - SCORE: 0-UNK TOILETING: Activity did not occur on this shift TOILETING - SCORE: 0-UNK BLADDER MANAGEMENT: [place] removes incontinent device (Depends, pull ups, etc.); cleans the patient after accident / inco ntinent episode; and, applies new incontinent device. BLADDER MANAGEMENT - SCORE: 1-DEP BOWEL MANAGEMENT: Activity did not occur on this shift BOWEL MANAGEMENT - SCORE: 7-IND TRANSFERS: BED, CHAIR, WHEELCHAIR: Activity did not occur on this shift TRANSFERS: BED, CHAIR, WHEELCHAIR - SCORE: 0-UNK TRANSFERS: TOILET: Activity did not occur on this shift TRANSFERS: TOILET - SCORE: 0-UNK TRANSFERS: SHOWER: Activity did not occur on this shift TRANSFERS: SHOWER - SCORE: 0-UNK TRANSFERS: TUB: Activity did not occur on this shift TRANSFERS: TUB - SCORE: 0-UNK LOCOMOTION: WALK: Activity did not occur on this shift LOCOMOTION: WALK - SCORE: 0-UNK LOCOMOTION: WHEELCHAIR: Activity did not occur on this shift LOCOMOTION: WHEELCHAIR - SCORE: 0-UNK COMPREHENSION: COMPREHENSION: TYPE: Both COMPREHENSION - STEP 1: Does the patient require help from a person or device, or need extra time to understand complex and a bstract ideas (such as current events, finances, discharge planning, medical issues, relationships, e tc)? No. COMPREHENSION - STEP 2: Does the patient need extra time, require an assistive device (such as glasses for visual comprehensi on or a hearing aid for auditory comprehension) or does s/he have mild difficulty understanding compl ex and abstract information? Yes. COMPREHENSION - SCORE: 6-SILVESTRE EXPRESSION EXPRESSION: TYPE: Both EXPRESSION - STEP 1: Does the patient require help from a person or device, or need extra time expressing complex and abst ract ideas (such as current events, finances, discharge planning, medical issues, relationships, etc) ? No. EXPRESSION - STEP 2: Does the patient need extra time, require an assistive device (such as augmentive communication syste m or a communication board), OR does s/he have mild difficulty expressing complex and abstract ideas (including mild dysarthria or mild word-find problems)? Yes. EXPRESSION - SCORE: 6-SILVESTRE SOCIAL INTERACTION: SOCIAL INTERACTION - STEP 1: Does the patient require a helper to interact with others in social and therapeutic situations? No. SOCIAL INTERACTION - STEP 2: Does the patient need extra time in social situations, OR does s/he interact with staff, other patien ts, and family members ONLY in structured environments, OR does s/he require medication for social in teraction? Yes, patient needs extra time SOCIAL INTERACTION - SCORE: 6-SILVESTRE PROBLEM SOLVING: PROBLEM SOLVING - STEP 1: Does the patient need help from a person or device, or need extra time to solve complex problems such as managing a checking account or confronting interpersonal problems? No. PROBLEM SOLVING - STEP 2: Does the patient require extra time to make decisions or solve problems, OR does s/he have slight dif ficulty reading, initiating, or self-correcting in unfamiliar situations? Yes, patient needs extra ti me. PROBLEM SOLVING - SCORE: 6-SILVESTRE MEMORY: MEMORY - STEP 1: Does the patient need help from a person or device, or need extra time to remember frequently encount ered people, daily routines, and executing requests? No. MEMORY - STEP 2: Does the patient have slight difficulty recognizing frequently encountered people, daily routines, or executing requests without the need for repetition or using self-initiated or environmental cues to remember? Yes. MEMORY - SCORE: 6-SILVESTRE SIGNATURE PANEL: The following modified sections: Eating - Score, Grooming - Score, Bathing - Score, Dressing - Upper Body - Score, Dressing - Lower Body - Score, Toileting - Score, Bladder Management - Score, Bowel Man agement - Score, Transfers: Bed, Chair, Wheelchair - Score, Transfers: Toilet - Score, Transfers: Melissa wer - Score, Transfers: Tub - Score, Locomotion: Walk - Score, Locomotion: Wheelchair - Score, Compre hension - Score, Expression - Score, Social Interaction - Score, Problem Solving - Score, Memory - Sc ore were [electronically] signed by Kaylen Nguyen RN on ThuJul 16 2018 04:20:27 T-0500 ([facility] Time)
[2018-07-16] MEDS: TRAMADOL HCL 50 MG TAB PO PRN ×2 (04:38→20:15)
[2018-07-16] MEDS: ONDANSETRON 4 MG (ODT) TAB PO PRN (06:28)
[2018-07-16] MEDS: CRANBERRY FRUIT EXTRACT 200 MG CAP PO SCH ×2 (07:28→20:16)
[2018-07-16] MEDS: VALSARTAN 80 MG TAB PO SCH (07:28)
[2018-07-16] MEDS: LIDOCAINE 5% PATCH TOP SCH (07:28)
[2018-07-16] MEDS: FLECAINIDE 100 MG TAB PO SCH ×2 (07:28→20:16)
[2018-07-16] MEDS: MAGNESIUM OXIDE 400 MG TAB PO SCH ×2 (07:29→20:17)
[2018-07-16] MEDS: APIXABAN 2.5 MG TABLET PO SCH ×2 (07:29→20:17)
[2018-07-16] MEDS: CITALOPRAM 10 MG TABLET PO SCH (07:29)
[2018-07-16] MEDS: HYDROCODONE/APAP 5/325 MG TAB PO PRN ×3 (07:30→17:30)
[2018-07-16] MEDS: GABAPENTIN 300 MG CAP PO SCH ×3 (07:30→20:16)
[2018-07-16] MEDS: FUROSEMIDE 20 MG TABLET PO SCH (07:31)
[2018-07-16] MEDS: LISINOPRIL 5 MG TAB PO SCH (07:32)
--- NOTE | 2018-07-16 09:27 | P.RH.PN ---
Estimated Length of Stay: 23 Expected Discharge Date: 07/27/18 Discharge Disposition Plan: Home Family Support: Yes Custodial Goal: Mobility, Transfers, Self Care Vital Signs: Last Vital Signs Temp 97.2 F 07/16/18 06:20 Pulse 65 07/16/18 07:31 Resp 16 07/16/18 06:20 BP 114/77 07/16/18 07:31 Pulse Ox 94 07/16/18 06:20 Laboratory: Laboratory Last Values WBC 7.6 K/uL (4.3-10.9) D 07/15/18 06:28 RBC 3.66 M/uL (4.33-5.43) L 07/15/18 06:28 Hgb 11.7 g/dL (13.6-17.9) L 07/15/18 06:28 Hct 34.9 % (39.6-49.0) L 07/15/18 06:28 MCV 95.2 fL (80-100) 07/15/18 06:28 MCH 32.0 pg (27.0-35.0) 07/15/18 06:28 MCHC 33.6 g/dL (32.0-36.0) 07/15/18 06:28 RDW 14.7 % (12.1-15.2) 07/15/18 06:28 Plt Count 252 K/uL (152-406) 07/15/18 06:28 MPV 9.2 fL (7.6-11.3) 07/15/18 06:28 Neutrophils % 59.8 % (41.7-73.7) 07/15/18 06:28 Lymphocytes % 23.6 % (15.3-44.8) 07/15/18 06:28 Monocytes % 7.9 % (3.3-12.3) 07/15/18 06:28 Eosinophils % 8.0 % (0-4.4) H 07/15/18 06:28 Basophils % 0.7 % (0-1.3) 07/15/18 06:28 Absolute Neutrophils 4.5 K/uL (1.8-8.0) 07/15/18 06:28 Absolute Lymphocytes 1.8 K/uL (0.7-4.9) 07/15/18 06:28 Absolute Monocytes 0.6 K/uL (0.1-1.3) 07/15/18 06:28 Absolute Eosinophils 0.6 K/uL (0-0.5) H 07/15/18 06:28 Absolute Basophils 0.1 K/uL (0-0.5) 07/15/18 06:28 Sodium 139 mmol/L (136-145) 07/15/18 06:28 Potassium 4.3 mmol/L (3.5-5.1) 07/15/18 06:28 Chloride 103 mmol/L (98-107) 07/15/18 06:28 Carbon Dioxide 31 mmol/L (21-32) 07/15/18 06:28 BUN 20 mg/dL (7-18) H 07/15/18 06:28 Creatinine 0.85 mg/dL (0.55-1.3) 07/15/18 06:28 Estimated GFR 88 mL/min (=/>90) L 07/15/18 06:28 Glucose 97 mg/dL (74-106) 07/15/18 06:28 Calcium 8.0 mg/dL (8.5-10.1) L 07/15/18 06:28 Magnesium 2.2 mg/dL (1.8-2.4) 07/06/18 06:04 Total Bilirubin 0.7 mg/dL (0.2-1.0) 07/06/18 06:04 Direct Bilirubin 0.2 mg/dL (0-0.2) 07/06/18 06:04 AST 25 U/L (15-37) 07/06/18 06:04 ALT 29 U/L (12-78) 07/06/18 06:04 Alkaline Phosphatase 94 U/L (45-117) 07/06/18 06:04 Serum Total Protein 7.0 g/dL (6.4-8.2) 07/06/18 06:04 Albumin 2.8 g/dL (3.4-5.0) L 07/15/18 06:28 Globulin 3.9 g/dL (2.3-3.5) H 07/06/18 06:04 Albumin/Globulin Ratio 0.8 (1.1-1.8) L 07/06/18 06:04 Prealbumin 20.7 mg/dL (20-40) 07/15/18 06:28 Urine Color Yellow 07/11/18 10:59 Urine Appearance Clear 07/11/18 10:59 Urine pH 6.0 (5.0-7.0) 07/11/18 10:59 Ur Specific [place] 1.020 (1.005-1.030) 07/11/18 10:59 Urine Ketones Negative (NEG) 07/11/18 10:59 Urine Blood Negative (NEG) 07/11/18 10:59 Urine Nitrite Negative (NEG) 07/11/18 10:59 Urine Bilirubin Negative (NEG) 07/11/18 10:59 Urine Urobilinogen 1.0 mg/dL (0.2-1.0) 07/11/18 10:59 Ur Leukocyte Esterase Trace (NEG) H 07/11/18 10:59 Urine RBC <5 /HPF (NONE SEEN) 07/11/18 10:59 Urine WBC <5 /HPF (<5) 07/11/18 10:59 Ur Squamous Epith Cells 5-10 /HPF (NONE SEEN) H 07/11/18 10:59 Urine Bacteria <20 /HPF (NONE SEEN) 07/11/18 10:59 Urine Mucus Slight /HPF (NONE SEEN) 07/07/18 00:10 Urine Culture Reflexed Not needed 07/11/18 10:59 Urine Glucose Negative (NEG) 07/11/18 10:59 Urine Total Protein Negative (NEG) 07/11/18 10:59 Weight: 202 lb 4.8 oz Wound Present: Yes Closed Surgical Incision Present: No Negative Pressure Wound Therapy Present: No Physician Update: He is making slow progress with physical and occupational therapy. He is fearful of falling and hesitant to perform transfers and to try ambulation. He has left sided neglect. His labs have been reviewed and are stable. He will be reviewed next week. Medical Issues: DVT Prophylaxis - Eliquis 2.5mg BID Pain Issues: [place] 5/325mg Q6H PRN. Tramadol 50mg Q6H PRN Functional Improvement: Patient continues to present w/ quickly fatigueing during activity. Patient has improved w/ strength during transfers and static standing. Functional Improvement Occupational Therapy: Patient is very motivated and participatory with therapy, and continues to benefit greatly from skilled OT to address his significant left side weakness and learning new strategies with one- handed techniques during BADL tasks completion. Speech Therapy Update: Pt. is making good progress on his speech and swallowing goals since initial admission. Pt. has been upgraded to regular solids, thin liquids, and whole medications with aspiration and reflux precautions. Pt. is tolerating this diet without difficulty. Due to decreased sensation and L sided weakness pt. c/o biting his tongue and cheek on the L side, and his tongue and cheek is sore from having to use a lingual sweep + re-swallow to remove any pocketed material in L buccal cavity. Pt. trained to place food on R side of mouth. Pt. is at MOD I for Auditory Comprehension, SUPV for Verbal Expression, MOD I for Social Interaction, and MOD I for Problem Solving and Memory. Pt.'s most limiting factor appears to be pain and fatigue. 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 Please see the Rehabilitation Signature page for all necessary signatures.
--- NOTE | 2018-07-16 15:41 | FAST ---
ENCOUNTER DATE AND TIME: 07/12/2018 08:00 (CDT) NAME PRICE ROGERS DATE OF : 1940 DATE OF ADMISSION: 07/05/2018 18:33 (CDT) PHONE: AGE: 78 SSN# [id number] GENDER: Male ENCOUNTER PHYSICIAN: Dr. Abdirahman Zepeda M.D. 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 EATING: Activity did not occur on this shift EATING - SCORE: 0-UNK GROOMING: Activity did not occur on this shift GROOMING - SCORE: 0-UNK BATHING: Activity did not occur on this shift BATHING - SCORE: 0-UNK DRESSING - UPPER BODY: Activity did not occur on this shift Patient is not dressing in public clothing ARTICLES SCORE Total number of steps: 0 DRESSING - UPPER BODY - SCORE: 0-UNK DRESSING - LOWER BODY: Activity did not occur on this shift Patient is not dressing in public clothing ARTICLES SCORE Total number of steps: 0 DRESSING - LOWER BODY - SCORE: 0-UNK TOILETING: Activity did not occur on this shift TOILETING - SCORE: 0-UNK BLADDER MANAGEMENT: Activity did not occur on this shift BLADDER MANAGEMENT - SCORE: 7-IND BOWEL MANAGEMENT: Activity did not occur on this shift BOWEL MANAGEMENT - SCORE: 7-IND TRANSFERS: BED, CHAIR, WHEELCHAIR: TRANSFERS: BED, CHAIR, WHEELCHAIR - STEP 1: Does the patient require assistance of a person or device, or need extra time with bed, chair, or whe elchair transfers? Yes. TRANSFERS: BED, CHAIR, WHEELCHAIR - STEP 2: Does the patient require the assistance of a helper? Yes. TRANSFERS: BED, CHAIR, WHEELCHAIR - STEP 3: How much assistance does the patient require from the helper? Lifting of the patient TRANSFERS: BED, CHAIR, WHEELCHAIR - STEP 4: Does the helper lift the patient ONLY up? ONLY down? Up AND Down? Up AND Down. TRANSFERS: BED, CHAIR, WHEELCHAIR - SCORE: 2-MAX TRANSFERS: TOILET: Activity did not occur on this shift TRANSFERS: TOILET - SCORE: 0-UNK TRANSFERS: SHOWER: Activity did not occur on this shift TRANSFERS: SHOWER - SCORE: 0-UNK TRANSFERS: TUB: Activity did not occur on this shift TRANSFERS: TUB - SCORE: 0-UNK LOCOMOTION: WALK: Activity did not occur on this shift LOCOMOTION: WALK - SCORE: 0-UNK LOCOMOTION: WHEELCHAIR: Activity did not occur on this shift LOCOMOTION: WHEELCHAIR - SCORE: 0-UNK LOCOMOTION: STAIRS: Activity did not occur on this shift LOCOMOTION: STAIRS - SCORE: 0-UNK COMPREHENSION: COMPREHENSION - SCORE: 0-UNK EXPRESSION EXPRESSION - SCORE: 0-UNK SOCIAL INTERACTION: SOCIAL INTERACTION - SCORE: 0-UNK PROBLEM SOLVING: PROBLEM SOLVING - SCORE: 0-UNK MEMORY: MEMORY - SCORE: 0-UNK SIGNATURE PANEL: The following modified sections: Transfers: Bed, Chair, Wheelchair - Score, Transfers: Toilet - Score , Locomotion: Walk - Score, Locomotion: Wheelchair - Score, Locomotion: Stairs - Score were [electron icaorion] signed by Lorne Garcia PTA on ThuJul 16 2018 15:40:02 GMT-0500 (Central Daylight Time)
--- NOTE | 2018-07-16 15:50 | FAST ---
ENCOUNTER DATE AND TIME: 07/13/2018 08:00 (CDT) NAME PRICE ROGERS DATE OF : 1940 DATE OF ADMISSION: 07/05/2018 18:33 (CDT) PHONE: AGE: 78 SSN# [id number] GENDER: Male ENCOUNTER PHYSICIAN: Dr. Abdirahman Zepeda M.D. 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 EATING: Activity did not occur on this shift EATING - SCORE: 0-UNK GROOMING: Activity did not occur on this shift GROOMING - SCORE: 0-UNK BATHING: Activity did not occur on this shift BATHING - SCORE: 0-UNK DRESSING - UPPER BODY: Activity did not occur on this shift Patient is not dressing in public clothing ARTICLES SCORE Total number of steps: 0 DRESSING - UPPER BODY - SCORE: 0-UNK DRESSING - LOWER BODY: Activity did not occur on this shift Patient is not dressing in public clothing ARTICLES SCORE Total number of steps: 0 DRESSING - LOWER BODY - SCORE: 0-UNK TOILETING: Activity did not occur on this shift TOILETING - SCORE: 0-UNK BLADDER MANAGEMENT: Activity did not occur on this shift BLADDER MANAGEMENT - SCORE: 7-IND BOWEL MANAGEMENT: Activity did not occur on this shift BOWEL MANAGEMENT - SCORE: 7-IND TRANSFERS: BED, CHAIR, WHEELCHAIR: Activity did not occur on this shift TRANSFERS: BED, CHAIR, WHEELCHAIR - SCORE: 0-UNK TRANSFERS: TOILET: Activity did not occur on this shift TRANSFERS: TOILET - SCORE: 0-UNK TRANSFERS: SHOWER: Activity did not occur on this shift TRANSFERS: SHOWER - SCORE: 0-UNK TRANSFERS: TUB: Activity did not occur on this shift TRANSFERS: TUB - SCORE: 0-UNK LOCOMOTION: WALK: Activity did not occur on this shift LOCOMOTION: WALK - SCORE: 0-UNK LOCOMOTION: WHEELCHAIR: Activity did not occur on this shift LOCOMOTION: WHEELCHAIR - SCORE: 0-UNK LOCOMOTION: STAIRS: Activity did not occur on this shift LOCOMOTION: STAIRS - SCORE: 0-UNK COMPREHENSION: COMPREHENSION - SCORE: 0-UNK EXPRESSION EXPRESSION - SCORE: 0-UNK SOCIAL INTERACTION: SOCIAL INTERACTION - SCORE: 0-UNK PROBLEM SOLVING: PROBLEM SOLVING - SCORE: 0-UNK MEMORY: MEMORY - SCORE: 0-UNK SIGNATURE PANEL: The following modified sections: Transfers: Bed, Chair, Wheelchair - Score, Transfers: Toilet - Score , Locomotion: Walk - Score, Locomotion: Wheelchair - Score, Locomotion: Stairs - Score were [electron daphney] signed by Lorne Garcia PTA on ThuJul 16 2018 15:49:10 GMT-0500 (Central Daylight Time)
--- NOTE | 2018-07-16 16:02 | FAST ---
ENCOUNTER DATE AND TIME: 07/14/2018 08:00 (CDT) NAME PRICE ROGERS DATE OF : 1940 DATE OF ADMISSION: 07/05/2018 18:33 (CDT) PHONE: AGE: 78 SSN# [id number] GENDER: Male ENCOUNTER PHYSICIAN: Dr. Abdirahman Zepeda M.D. 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 EATING: Activity did not occur on this shift EATING - SCORE: 0-UNK GROOMING: Activity did not occur on this shift GROOMING - SCORE: 0-UNK BATHING: Activity did not occur on this shift BATHING - SCORE: 0-UNK DRESSING - UPPER BODY: Activity did not occur on this shift Patient is not dressing in public clothing ARTICLES SCORE Total number of steps: 0 DRESSING - UPPER BODY - SCORE: 0-UNK DRESSING - LOWER BODY: Activity did not occur on this shift Patient is not dressing in public clothing ARTICLES SCORE Total number of steps: 0 DRESSING - LOWER BODY - SCORE: 0-UNK TOILETING: Activity did not occur on this shift TOILETING - SCORE: 0-UNK BLADDER MANAGEMENT: Activity did not occur on this shift BLADDER MANAGEMENT - SCORE: 7-IND BOWEL MANAGEMENT: Activity did not occur on this shift BOWEL MANAGEMENT - SCORE: 7-IND TRANSFERS: BED, CHAIR, WHEELCHAIR: TRANSFERS: BED, CHAIR, WHEELCHAIR - STEP 1: Does the patient require assistance of a person or device, or need extra time with bed, chair, or whe elchair transfers? Yes. TRANSFERS: BED, CHAIR, WHEELCHAIR - STEP 2: Does the patient require the assistance of a helper? Yes. TRANSFERS: BED, CHAIR, WHEELCHAIR - STEP 3: How much assistance does the patient require from the helper? Lifting of the patient TRANSFERS: BED, CHAIR, WHEELCHAIR - STEP 4: Does the helper lift the patient ONLY up? ONLY down? Up AND Down? Up AND Down. TRANSFERS: BED, CHAIR, WHEELCHAIR - SCORE: 2-MAX TRANSFERS: TOILET: Activity did not occur on this shift TRANSFERS: TOILET - SCORE: 0-UNK TRANSFERS: SHOWER: Activity did not occur on this shift TRANSFERS: SHOWER - SCORE: 0-UNK TRANSFERS: TUB: Activity did not occur on this shift TRANSFERS: TUB - SCORE: 0-UNK LOCOMOTION: WALK: Activity did not occur on this shift LOCOMOTION: WALK - SCORE: 0-UNK LOCOMOTION: WHEELCHAIR: Activity did not occur on this shift LOCOMOTION: WHEELCHAIR - SCORE: 0-UNK LOCOMOTION: STAIRS: Activity did not occur on this shift LOCOMOTION: STAIRS - SCORE: 0-UNK COMPREHENSION: COMPREHENSION - SCORE: 0-UNK EXPRESSION EXPRESSION - SCORE: 0-UNK SOCIAL INTERACTION: SOCIAL INTERACTION - SCORE: 0-UNK PROBLEM SOLVING: PROBLEM SOLVING - SCORE: 0-UNK MEMORY: MEMORY - SCORE: 0-UNK SIGNATURE PANEL: The following modified sections: Transfers: Bed, Chair, Wheelchair - Score, Transfers: Toilet - Score , Locomotion: Walk - Score, Locomotion: Wheelchair - Score, Locomotion: Stairs - Score were [electron icaorion] signed by Lorne Garcia PTA on ThuJul 16 2018 16:01:23 GMT-0500 (Central Daylight Time)
--- NOTE | 2018-07-16 16:05 | FAST ---
ENCOUNTER DATE AND TIME: 07/15/2018 08:00 (CDT) NAME PRICE ROGERS DATE OF : 1940 DATE OF ADMISSION: 07/05/2018 18:33 (CDT) PHONE: AGE: 78 SSN# [id number] GENDER: Male ENCOUNTER PHYSICIAN: Dr. Abdirahman Zepeda M.D. 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 EATING: Activity did not occur on this shift EATING - SCORE: 0-UNK GROOMING: Activity did not occur on this shift GROOMING - SCORE: 0-UNK BATHING: Activity did not occur on this shift BATHING - SCORE: 0-UNK DRESSING - UPPER BODY: Activity did not occur on this shift Patient is not dressing in public clothing ARTICLES SCORE Total number of steps: 0 DRESSING - UPPER BODY - SCORE: 0-UNK DRESSING - LOWER BODY: Activity did not occur on this shift Patient is not dressing in public clothing ARTICLES SCORE Total number of steps: 0 DRESSING - LOWER BODY - SCORE: 0-UNK TOILETING: Activity did not occur on this shift TOILETING - SCORE: 0-UNK BLADDER MANAGEMENT: Activity did not occur on this shift BLADDER MANAGEMENT - SCORE: 7-IND BOWEL MANAGEMENT: Activity did not occur on this shift BOWEL MANAGEMENT - SCORE: 7-IND TRANSFERS: BED, CHAIR, WHEELCHAIR: TRANSFERS: BED, CHAIR, WHEELCHAIR - STEP 1: Does the patient require assistance of a person or device, or need extra time with bed, chair, or whe elchair transfers? Yes. TRANSFERS: BED, CHAIR, WHEELCHAIR - STEP 2: Does the patient require the assistance of a helper? Yes. TRANSFERS: BED, CHAIR, WHEELCHAIR - STEP 3: How much assistance does the patient require from the helper? Lifting of the patient TRANSFERS: BED, CHAIR, WHEELCHAIR - STEP 4: Does the helper lift the patient ONLY up? ONLY down? Up AND Down? Up AND Down. TRANSFERS: BED, CHAIR, WHEELCHAIR - SCORE: 2-MAX TRANSFERS: TOILET: Activity did not occur on this shift TRANSFERS: TOILET - SCORE: 0-UNK TRANSFERS: SHOWER: Activity did not occur on this shift TRANSFERS: SHOWER - SCORE: 0-UNK TRANSFERS: TUB: Activity did not occur on this shift TRANSFERS: TUB - SCORE: 0-UNK LOCOMOTION: WALK: Activity did not occur on this shift LOCOMOTION: WALK - SCORE: 0-UNK LOCOMOTION: WHEELCHAIR: Activity did not occur on this shift LOCOMOTION: WHEELCHAIR - SCORE: 0-UNK LOCOMOTION: STAIRS: Activity did not occur on this shift LOCOMOTION: STAIRS - SCORE: 0-UNK COMPREHENSION: COMPREHENSION - SCORE: 0-UNK EXPRESSION EXPRESSION - SCORE: 0-UNK SOCIAL INTERACTION: SOCIAL INTERACTION - SCORE: 0-UNK PROBLEM SOLVING: PROBLEM SOLVING - SCORE: 0-UNK MEMORY: MEMORY - SCORE: 0-UNK SIGNATURE PANEL: The following modified sections: Transfers: Bed, Chair, Wheelchair - Score, Transfers: Toilet - Score , Locomotion: Walk - Score, Locomotion: Wheelchair - Score, Locomotion: Stairs - Score were [electron icaorion] signed by Lorne Garcia PTA on ThuJul 16 2018 16:04:22 GMT-0500 (Central Daylight Time)
--- NOTE | 2018-07-16 16:10 | FAST ---
ENCOUNTER DATE AND TIME: 07/16/2018 08:00 (CDT) NAME PRICE ROGERS DATE OF : 1940 DATE OF ADMISSION: 07/05/2018 18:33 (CDT) PHONE: AGE: 78 SSN# [id number] GENDER: Male ENCOUNTER PHYSICIAN: Dr. Abdirahman Zepeda M.D. 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 EATING: Activity did not occur on this shift EATING - SCORE: 0-UNK GROOMING: Activity did not occur on this shift GROOMING - SCORE: 0-UNK BATHING: Activity did not occur on this shift BATHING - SCORE: 0-UNK DRESSING - UPPER BODY: Activity did not occur on this shift Patient is not dressing in public clothing ARTICLES SCORE Total number of steps: 0 DRESSING - UPPER BODY - SCORE: 0-UNK DRESSING - LOWER BODY: Activity did not occur on this shift Patient is not dressing in public clothing ARTICLES SCORE Total number of steps: 0 DRESSING - LOWER BODY - SCORE: 0-UNK TOILETING: Activity did not occur on this shift TOILETING - SCORE: 0-UNK BLADDER MANAGEMENT: Activity did not occur on this shift BLADDER MANAGEMENT - SCORE: 7-IND BOWEL MANAGEMENT: Activity did not occur on this shift BOWEL MANAGEMENT - SCORE: 7-IND TRANSFERS: BED, CHAIR, WHEELCHAIR: TRANSFERS: BED, CHAIR, WHEELCHAIR - STEP 1: Does the patient require assistance of a person or device, or need extra time with bed, chair, or whe elchair transfers? Yes. TRANSFERS: BED, CHAIR, WHEELCHAIR - STEP 2: Does the patient require the assistance of a helper? Yes. TRANSFERS: BED, CHAIR, WHEELCHAIR - STEP 3: How much assistance does the patient require from the helper? Lifting of the patient TRANSFERS: BED, CHAIR, WHEELCHAIR - STEP 4: Does the helper lift the patient ONLY up? ONLY down? Up AND Down? Up AND Down. TRANSFERS: BED, CHAIR, WHEELCHAIR - SCORE: 2-MAX TRANSFERS: TOILET: Activity did not occur on this shift TRANSFERS: TOILET - SCORE: 0-UNK TRANSFERS: SHOWER: Activity did not occur on this shift TRANSFERS: SHOWER - SCORE: 0-UNK TRANSFERS: TUB: Activity did not occur on this shift TRANSFERS: TUB - SCORE: 0-UNK LOCOMOTION: WALK: Activity did not occur on this shift LOCOMOTION: WALK - SCORE: 0-UNK LOCOMOTION: WHEELCHAIR: Activity did not occur on this shift LOCOMOTION: WHEELCHAIR - SCORE: 0-UNK LOCOMOTION: STAIRS: Activity did not occur on this shift LOCOMOTION: STAIRS - SCORE: 0-UNK COMPREHENSION: COMPREHENSION - SCORE: 0-UNK EXPRESSION EXPRESSION - SCORE: 0-UNK SOCIAL INTERACTION: SOCIAL INTERACTION - SCORE: 0-UNK PROBLEM SOLVING: PROBLEM SOLVING - SCORE: 0-UNK MEMORY: MEMORY - SCORE: 0-UNK SIGNATURE PANEL: The following modified sections: Transfers: Bed, Chair, Wheelchair - Score, Transfers: Toilet - Score , Locomotion: Walk - Score, Locomotion: Wheelchair - Score, Locomotion: Stairs - Score were [electron icaorion] signed by Lorne Garcia PTA on ThuJul 16 2018 16:10:07 GMT-0500 (Central Daylight Time)
--- NOTE | 2018-07-16 16:26 | FAST ---
SHIFT START DATE/TIME: 07/16/2018 07:00 (CDT) SHIFT END DATE/TIME: 07/16/2018 19:00 (CDT) NAME PRICE ROGERS DATE OF : 1940 DATE OF ADMISSION: 07/05/2018 18:33 (CDT) PHONE: AGE: 78 N# [id number] GENDER: Male ENCOUNTER PHYSICIAN: Dr. Abdirahman Zepeda M.D. 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 EATING: EATING - STEP 1: Does the patient require the assistance of a person or device, or need extra time when eating? Yes. EATING - STEP 2: Does the patient require the assistance of a helper? Yes. EATING - STEP 3: Does the patient perform half or more of the eating tasks? Yes. EATING - STEP 4: Does the patient need only supervision, cuing, coaxing OR help to apply an orthosis OR help to cut fo od, open containers, pour liquids, or butter bread? Yes. EATING - SCORE: 5-SUP GROOMING: Activity did not occur on this shift GROOMING - SCORE: 0-UNK BATHING: Activity did not occur on this shift BATHING - SCORE: 0-UNK DRESSING - UPPER BODY: Activity did not occur on this shift ARTICLES SCORE Total number of steps: 0 DRESSING - UPPER BODY - SCORE: 0-UNK DRESSING - LOWER BODY: Elastic waist pants (three steps) Underwear (three steps) ARTICLES SCORE Total number of steps: 6 DRESSING - LOWER BODY - STEP 1: Does the patient require help from a person or device, or need extra time when dressing below the [address]? Yes. DRESSING - LOWER BODY - STEP 2: Does the patient require the assistance of a helper? Yes. DRESSING - LOWER BODY - STEP 3: Does the helper touch the patient while dressing? Yes. DRESSING - LOWER BODY - STEP 4: How many of the total steps does the patient complete on his/her own? 0 DRESSING - LOWER BODY - STEP 5: Does patient require total assistance for dressing below the waist such as the helper holding clothin g and performing basically all the activities? Yes. DRESSING - LOWER BODY - SCORE: 1-DEP TOILETING: TOILETING - STEP 1: Does the patient require the assistance of a person or device, or need extra time with toileting? Yes . TOILETING - STEP 2: Does the patient require the assistance of a helper? Yes. TOILETING - STEP 3: How much assistance does the patient require from the helper? Hands-on assistance from the helper TOILETING - STEP 4: Of the 3 tasks: 1) Adjusting clothing prior to use, 2) Cleansing of perineal area, 3) Adjusting clot merissa after use; How many tasks does the patient perform WITHOUT assistance of the helper? One task TOILETING - SCORE: 2-MAX BLADDER MANAGEMENT: [place] removes incontinent device (Depends, pull ups, etc.); cleans the patient after accident / inco ntinent episode; and, applies new incontinent device. BLADDER MANAGEMENT - SCORE: 1-DEP BLADDER MANAGEMENT - FREQUENCY OF ACCIDENTS: BLADDER MANAGEMENT(FA) - STEP 1: How many accidents has the patient had during the current shift? 1 BOWEL MANAGEMENT: BOWEL MANAGEMENT - STEP 1: Does the patient control bowels completely and intentionally without equipment devices or medications AND is always continent? Yes. BOWEL MANAGEMENT - SCORE: 7-IND BOWEL MANAGEMENT - FREQUENCY OF ACCIDENTS: BOWEL MANAGEMENT(FA) - STEP 1: How many accidents has the patient had during the current shift? 0 TRANSFERS: BED, CHAIR, WHEELCHAIR: TRANSFERS: BED, CHAIR, WHEELCHAIR - STEP 1: Does the patient require assistance of a person or device, or need extra time with bed, chair, or whe elchair transfers? Yes. TRANSFERS: BED, CHAIR, WHEELCHAIR - STEP 2: Does the patient require the assistance of a helper? Yes. TRANSFERS: BED, CHAIR, WHEELCHAIR - STEP 3: How much assistance does the patient require from the helper? Lifting of the patient TRANSFERS: BED, CHAIR, WHEELCHAIR - STEP 4: Does the helper lift the patient ONLY up? ONLY down? Up AND Down? Patient needs help with all lifting TRANSFERS: BED, CHAIR, WHEELCHAIR - SCORE: 1-DEP TRANSFERS: TOILET: TRANSFERS: TOILET - STEP 1: Does the patient require the assistance of a person or device, or need extra time with toilet transfe rs? Yes. TRANSFERS: TOILET - STEP 2: Does the patient require the assistance of a helper? Yes. TRANSFERS: TOILET - STEP 3: How much assistance does the patient require from the helper? Patient performs less than half of the transferring tasks TRANSFERS: TOILET - STEP 4: Does the patient require total assistance for the toilet transfer such as the helper doing basically all the lifting? Yes. TRANSFERS: TOILET - SCORE: 1-DEP TRANSFERS: SHOWER: Activity did not occur on this shift TRANSFERS: SHOWER - SCORE: 0-UNK TRANSFERS: TUB: Activity did not occur on this shift TRANSFERS: TUB - SCORE: 0-UNK LOCOMOTION: WALK: Activity did not occur on this shift LOCOMOTION: WALK - SCORE: 0-UNK LOCOMOTION: WHEELCHAIR: Activity did not occur on this shift LOCOMOTION: WHEELCHAIR - SCORE: 0-UNK COMPREHENSION: COMPREHENSION - SCORE: 0-UNK EXPRESSION EXPRESSION - SCORE: 0-UNK SOCIAL INTERACTION: SOCIAL INTERACTION - SCORE: 0-UNK PROBLEM SOLVING: PROBLEM SOLVING - SCORE: 0-UNK MEMORY: MEMORY - SCORE: 0-UNK SIGNATURE PANEL: The following modified sections: Eating - Score, Grooming - Score, Bathing - Score, Dressing - Upper Body - Score, Dressing - Lower Body - Score, Toileting - Score, Bladder Management - Score, Bowel Man agement - Score, Transfers: Bed, Chair, Wheelchair - Score, Transfers: Toilet - Score, Transfers: Melissa wer - Score, Transfers: Tub - Score, Locomotion: Walk - Score, Locomotion: Wheelchair - Score, Compre hension - Score, Expression - Score, Social Interaction - Score, Problem Solving - Score, Memory - Sc ore were [electronically] signed by Pily Conrad CNA on ThuJul 16 2018 16:26:06 T-0500 (Centra [place] Daylight Time)
[2018-07-16] MEDS: ALPRAZOLAM 1 MG TABLET PO SCH (20:16)
[2018-07-16] MEDS: DOCUSATE NA/SENNA CONC 1 TAB PO SCH (20:16)
[2018-07-16] MEDS: ATORVASTATIN 10 MG TAB PO SCH (20:17)
--- NOTE | 2018-07-17 02:20 | FAST ---
SHIFT START DATE/TIME: 07/16/2018 19:00 (CDT) SHIFT END DATE/TIME: 07/17/2018 07:00 (CDT) NAME PRICE ROGERS DATE OF : 1940 DATE OF ADMISSION: 07/05/2018 18:33 (CDT) PHONE: AGE: 78 SSN# [id number] GENDER: Male ENCOUNTER PHYSICIAN: Dr. Abdirahman Zepeda M.D. 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 EATING: Activity did not occur on this shift EATING - SCORE: 0-UNK GROOMING: Activity did not occur on this shift GROOMING - SCORE: 0-UNK BATHING: Activity did not occur on this shift BATHING - SCORE: 0-UNK DRESSING - UPPER BODY: Patient is not dressing in public clothing ARTICLES SCORE Total number of steps: 0 DRESSING - UPPER BODY - SCORE: 0-UNK DRESSING - LOWER BODY: Patient is not dressing in public clothing ARTICLES SCORE Total number of steps: 0 DRESSING - LOWER BODY - SCORE: 0-UNK TOILETING: Activity did not occur on this shift TOILETING - SCORE: 0-UNK BLADDER MANAGEMENT: BLADDER MANAGEMENT - STEP 1: Does the patient control the bladder completely and intentionally without equipment or devices or med ications, and is always continent? No. BLADDER MANAGEMENT - STEP 2: Does the patient require the assistance of a helper? Yes. BLADDER MANAGEMENT - STEP 3: How much assistance does the patient require from the helper? Patient requires contact assistance fro m the helper BLADDER MANAGEMENT - STEP 4: How much contact assistance does the patient require from the helper? Patient requires moderate mary tance, and performs 50% to 75% of bladder management tasks - [place] positions AND holds urinal or bed benítez BLADDER MANAGEMENT - SCORE: 3-MOD BOWEL MANAGEMENT: Activity did not occur on this shift BOWEL MANAGEMENT - SCORE: 7-IND TRANSFERS: BED, CHAIR, WHEELCHAIR: Activity did not occur on this shift TRANSFERS: BED, CHAIR, WHEELCHAIR - SCORE: 0-UNK TRANSFERS: TOILET: Activity did not occur on this shift TRANSFERS: TOILET - SCORE: 0-UNK TRANSFERS: SHOWER: Activity did not occur on this shift TRANSFERS: SHOWER - SCORE: 0-UNK TRANSFERS: TUB: Activity did not occur on this shift TRANSFERS: TUB - SCORE: 0-UNK LOCOMOTION: WALK: Activity did not occur on this shift LOCOMOTION: WALK - SCORE: 0-UNK LOCOMOTION: WHEELCHAIR: Activity did not occur on this shift LOCOMOTION: WHEELCHAIR - SCORE: 0-UNK COMPREHENSION: COMPREHENSION: TYPE: Both COMPREHENSION - STEP 1: Does the patient require help from a person or device, or need extra time to understand complex and a bstract ideas (such as current events, finances, discharge planning, medical issues, relationships, e tc)? No. COMPREHENSION - STEP 2: Does the patient need extra time, require an assistive device (such as glasses for visual comprehensi on or a hearing aid for auditory comprehension) or does s/he have mild difficulty understanding compl ex and abstract information? Yes. COMPREHENSION - SCORE: 6-SILVESTRE EXPRESSION EXPRESSION: TYPE: Both EXPRESSION - STEP 1: Does the patient require help from a person or device, or need extra time expressing complex and abst ract ideas (such as current events, finances, discharge planning, medical issues, relationships, etc) ? No. EXPRESSION - STEP 2: Does the patient need extra time, require an assistive device (such as augmentive communication syste m or a communication board), OR does s/he have mild difficulty expressing complex and abstract ideas (including mild dysarthria or mild word-find problems)? Yes. EXPRESSION - SCORE: 6-SILVESTRE SOCIAL INTERACTION: SOCIAL INTERACTION - STEP 1: Does the patient require a helper to interact with others in social and therapeutic situations? No. SOCIAL INTERACTION - STEP 2: Does the patient need extra time in social situations, OR does s/he interact with staff, other patien ts, and family members ONLY in structured environments, OR does s/he require medication for social in teraction? Yes, patient needs extra time SOCIAL INTERACTION - SCORE: 6-SILVESTRE PROBLEM SOLVING: PROBLEM SOLVING - STEP 1: Does the patient need help from a person or device, or need extra time to solve complex problems such as managing a checking account or confronting interpersonal problems? No. PROBLEM SOLVING - STEP 2: Does the patient require extra time to make decisions or solve problems, OR does s/he have slight dif ficulty reading, initiating, or self-correcting in unfamiliar situations? Yes, patient needs extra ti me. PROBLEM SOLVING - SCORE: 6-SILVESTRE MEMORY: MEMORY - STEP 1: Does the patient need help from a person or device, or need extra time to remember frequently encount ered people, daily routines, and executing requests? No. MEMORY - STEP 2: Does the patient have slight difficulty recognizing frequently encountered people, daily routines, or executing requests without the need for repetition or using self-initiated or environmental cues to remember? Yes. MEMORY - SCORE: 6-SILVESTRE
[2018-07-17] MEDS: LISINOPRIL 5 MG TAB PO SCH (08:00)
[2018-07-17] MEDS: LIDOCAINE 5% PATCH TOP SCH (08:34)
[2018-07-17] MEDS: FUROSEMIDE 20 MG TABLET PO SCH (08:35)
[2018-07-17] MEDS: CRANBERRY FRUIT EXTRACT 200 MG CAP PO SCH ×2 (08:35→21:16)
[2018-07-17] MEDS: CITALOPRAM 10 MG TABLET PO SCH (08:35)
[2018-07-17] MEDS: MAGNESIUM OXIDE 400 MG TAB PO SCH ×2 (08:36→21:16)
[2018-07-17] MEDS: VALSARTAN 80 MG TAB PO SCH (08:36)
[2018-07-17] MEDS: FLECAINIDE 100 MG TAB PO SCH ×2 (08:37→21:16)
[2018-07-17] MEDS: APIXABAN 2.5 MG TABLET PO SCH ×2 (08:37→21:16)
[2018-07-17] MEDS: GABAPENTIN 300 MG CAP PO SCH ×3 (08:43→21:17)
[2018-07-17] MEDS: ACETAMINOPHEN 500 MG TAB PO PRN ×2 (08:43→19:00)
--- NOTE | 2018-07-17 14:51 | FAST ---
SHIFT START DATE/TIME: 07/17/2018 07:00 (CDT) SHIFT END DATE/TIME: 07/17/2018 19:00 (CDT) NAME PRICE ROGERS DATE OF : 1940 DATE OF ADMISSION: 07/05/2018 18:33 (CDT) PHONE: AGE: 78 N# [id number] GENDER: Male ENCOUNTER PHYSICIAN: Dr. Abdirahman Zepeda M.D. 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 EATING: EATING - STEP 1: Does the patient require the assistance of a person or device, or need extra time when eating? Yes. EATING - STEP 2: Does the patient require the assistance of a helper? Yes. EATING - STEP 3: Does the patient perform half or more of the eating tasks? Yes. EATING - STEP 4: Does the patient need only supervision, cuing, coaxing OR help to apply an orthosis OR help to cut fo od, open containers, pour liquids, or butter bread? Yes. EATING - SCORE: 5-SUP GROOMING: Comb/brush hair Oral care Wash, rinse, and dry face Wash, rinse, and dry hands GROOMING - STEP 1: Does the patient require the assistance of a person or device, or need extra time when grooming? Yes. GROOMING - STEP 2: Does the patient require the assistance of a helper? Yes. GROOMING - STEP 3: How much assistance does the patient require from the helper? Only prior equipment preparation/set up from the helper GROOMING - SCORE: 5-SUP BATHING: Activity did not occur on this shift BATHING - SCORE: 0-UNK DRESSING - UPPER BODY: Activity did not occur on this shift ARTICLES SCORE Total number of steps: 0 DRESSING - UPPER BODY - SCORE: 0-UNK DRESSING - LOWER BODY: Elastic waist pants (three steps) Slip-on shoe - Left foot (one step) Sock - Left foot (one step) Sock - Right foot (one step) Tied or buckled shoe - Left foot (two steps) Tied or buckled shoe - Right foot (two steps) ARTICLES SCORE Total number of steps: 10 DRESSING - LOWER BODY - STEP 1: Does the patient require help from a person or device, or need extra time when dressing below the [address]? Yes. DRESSING - LOWER BODY - STEP 2: Does the patient require the assistance of a helper? Yes. DRESSING - LOWER BODY - STEP 3: Does the helper touch the patient while dressing? Yes. DRESSING - LOWER BODY - STEP 4: How many of the total steps does the patient complete on his/her own? 0 DRESSING - LOWER BODY - STEP 5: Does patient require total assistance for dressing below the waist such as the helper holding clothin g and performing basically all the activities? Yes. DRESSING - LOWER BODY - SCORE: 1-DEP TOILETING: TOILETING - STEP 1: Does the patient require the assistance of a person or device, or need extra time with toileting? Yes . TOILETING - STEP 2: Does the patient require the assistance of a helper? Yes. TOILETING - STEP 3: How much assistance does the patient require from the helper? Hands-on assistance from the helper TOILETING - STEP 4: Of the 3 tasks: 1) Adjusting clothing prior to use, 2) Cleansing of perineal area, 3) Adjusting clot merissa after use; How many tasks does the patient perform WITHOUT assistance of the helper? No tasks; andre garcía performs all three tasks TOILETING - SCORE: 1-DEP BLADDER MANAGEMENT: BLADDER MANAGEMENT - STEP 1: Does the patient control the bladder completely and intentionally without equipment or devices or med ications, and is always continent? No. BLADDER MANAGEMENT - STEP 2: Does the patient require the assistance of a helper? Yes. BLADDER MANAGEMENT - STEP 3: How much assistance does the patient require from the helper? Only set-up of equipment - such as plac ing it within reach of the patient or emptying a device - to maintain either satisfactory voiding pat tern or managing an external device, such as an absorbent pad, ileal device, or catheter BLADDER MANAGEMENT - SCORE: 5-SUP BLADDER MANAGEMENT - FREQUENCY OF ACCIDENTS: BLADDER MANAGEMENT(FA) - STEP 1: How many accidents has the patient had during the current shift? 0 BOWEL MANAGEMENT: [place] removes incontinent device (depends, pull ups, etc.); cleans the patient after accident / inco ntinent episode; and, applies new device (depends, pull-ups, padding, etc.). BOWEL MANAGEMENT - SCORE: 1-DEP BOWEL MANAGEMENT - FREQUENCY OF ACCIDENTS: BOWEL MANAGEMENT(FA) - STEP 1: How many accidents has the patient had during the current shift? 1 TRANSFERS: BED, CHAIR, WHEELCHAIR: Patient requires more than one helper and/or the use of a mechanical lift is utilized TRANSFERS: BED, CHAIR, WHEELCHAIR - SCORE: 1-DEP TRANSFERS: TOILET: Patient requires more than one helper and/or the use of a mechanical lift is utilized TRANSFERS: TOILET - SCORE: 1-DEP TRANSFERS: SHOWER: Activity did not occur on this shift TRANSFERS: SHOWER - SCORE: 0-UNK TRANSFERS: TUB: Activity did not occur on this shift TRANSFERS: TUB - SCORE: 0-UNK LOCOMOTION: WALK: Activity did not occur on this shift LOCOMOTION: WALK - SCORE: 0-UNK LOCOMOTION: WHEELCHAIR: Activity did not occur on this shift LOCOMOTION: WHEELCHAIR - SCORE: 0-UNK COMPREHENSION: COMPREHENSION: TYPE: Both COMPREHENSION - STEP 1: Does the patient require help from a person or device, or need extra time to understand complex and a bstract ideas (such as current events, finances, discharge planning, medical issues, relationships, e tc)? No. COMPREHENSION - STEP 2: Does the patient need extra time, require an assistive device (such as glasses for visual comprehensi on or a hearing aid for auditory comprehension) or does s/he have mild difficulty understanding compl ex and abstract information? Yes. COMPREHENSION - SCORE: 6-SILVESTRE EXPRESSION EXPRESSION: TYPE: Both EXPRESSION - STEP 1: Does the patient require help from a person or device, or need extra time expressing complex and abst ract ideas (such as current events, finances, discharge planning, medical issues, relationships, etc) ? Yes. EXPRESSION - STEP 2: Does the patient require help to express basic necessities or ideas (such as hunger, thirst, sleep, s afety, daily schedule, room location, or discomfort) half or more of the time? No. EXPRESSION - STEP 3: How often does the patient need help to express directions and conversation about basic needs? 10-24% of the time EXPRESSION - SCORE: 4-MIN SOCIAL INTERACTION: SOCIAL INTERACTION - STEP 1: Does the patient require a helper to interact with others in social and therapeutic situations? No. SOCIAL INTERACTION - STEP 2: Does the patient need extra time in social situations, OR does s/he interact with staff, other patien ts, and family members ONLY in structured environments, OR does s/he require medication for social in teraction? Yes, patient needs extra time SOCIAL INTERACTION - SCORE: 6-SILVESTRE PROBLEM SOLVING: PROBLEM SOLVING - STEP 1: Does the patient need help from a person or device, or need extra time to solve complex problems such as managing a checking account or confronting interpersonal problems? No. PROBLEM SOLVING - STEP 2: Does the patient require extra time to make decisions or solve problems, OR does s/he have slight dif ficulty reading, initiating, or self-correcting in unfamiliar situations? Yes, patient needs extra ti me. PROBLEM SOLVING - SCORE: 6-SILVESTRE MEMORY: MEMORY - STEP 1: Does the patient need help from a person or device, or need extra time to remember frequently encount ered people, daily routines, and executing requests? Yes. MEMORY - STEP 2: How often does the patient need help to remember frequently encountered people, daily routines, and e xecuting requests? 10% - 24% of the time MEMORY - SCORE: 4-MIN SIGNATURE PANEL: The following modified sections: Eating - Score, Grooming - Score, Bathing - Score, Dressing - Upper Body - Score, Dressing - Lower Body - Score, Toileting - Score, Bladder Management - Score, Bowel Man agement - Score, Transfers: Bed, Chair, Wheelchair - Score, Transfers: Toilet - Score, Transfers: Melissa wer - Score, Transfers: Tub - Score, Locomotion: Walk - Score, Locomotion: Wheelchair - Score, Compre hension - Score, Expression - Score, Social Interaction - Score, Problem Solving - Score, Memory - Sc ore were [electronically] signed by Penelope Medrano C.N.A. on ThuJul 17 2018 14:50:17 T-0500 (Centra l Daylight Time)
[2018-07-17] MEDS: ONDANSETRON 4 MG (ODT) TAB PO PRN (20:03)
[2018-07-17] MEDS: ATORVASTATIN 10 MG TAB PO SCH (21:16)
[2018-07-17] MEDS: DOCUSATE NA/SENNA CONC 1 TAB PO SCH (21:17)
[2018-07-17] MEDS: ALPRAZOLAM 1 MG TABLET PO SCH (21:17)
--- NOTE | 2018-07-18 00:58 | FAST ---
SHIFT START DATE/TIME: 07/17/2018 19:00 (CDT) SHIFT END DATE/TIME: 07/18/2018 07:00 (CDT) NAME PRICE ROGERS DATE OF : 1940 DATE OF ADMISSION: 07/05/2018 18:33 (CDT) PHONE: AGE: 78 N# [id number] GENDER: Male ENCOUNTER PHYSICIAN: Dr. Abdirahman Zepeda M.D. 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 EATING: Activity did not occur on this shift EATING - SCORE: 0-UNK GROOMING: Activity did not occur on this shift GROOMING - SCORE: 0-UNK BATHING: Activity did not occur on this shift BATHING - SCORE: 0-UNK DRESSING - UPPER BODY: Patient is not dressing in public clothing ARTICLES SCORE Total number of steps: 0 DRESSING - UPPER BODY - SCORE: 0-UNK DRESSING - LOWER BODY: Patient is not dressing in public clothing ARTICLES SCORE Total number of steps: 0 DRESSING - LOWER BODY - SCORE: 0-UNK TOILETING: TOILETING - STEP 1: Does the patient require the assistance of a person or device, or need extra time with toileting? Yes . TOILETING - STEP 2: Does the patient require the assistance of a helper? Yes. TOILETING - STEP 3: How much assistance does the patient require from the helper? Hands-on assistance from the helper TOILETING - STEP 4: Of the 3 tasks: 1) Adjusting clothing prior to use, 2) Cleansing of perineal area, 3) Adjusting clot merissa after use; How many tasks does the patient perform WITHOUT assistance of the helper? No tasks; h elper performs all three tasks TOILETING - SCORE: 1-DEP BLADDER MANAGEMENT: [place] removes incontinent device (Depends, pull ups, etc.); cleans the patient after accident / inco ntinent episode; and, applies new incontinent device. BLADDER MANAGEMENT - SCORE: 1-DEP BOWEL MANAGEMENT: [place] removes incontinent device (depends, pull ups, etc.); cleans the patient after accident / inco ntinent episode; and, applies new device (depends, pull-ups, padding, etc.). BOWEL MANAGEMENT - SCORE: 1-DEP TRANSFERS: BED, CHAIR, WHEELCHAIR: Activity did not occur on this shift TRANSFERS: BED, CHAIR, WHEELCHAIR - SCORE: 0-UNK TRANSFERS: TOILET: Activity did not occur on this shift TRANSFERS: TOILET - SCORE: 0-UNK TRANSFERS: SHOWER: Activity did not occur on this shift TRANSFERS: SHOWER - SCORE: 0-UNK TRANSFERS: TUB: Activity did not occur on this shift TRANSFERS: TUB - SCORE: 0-UNK LOCOMOTION: WALK: Activity did not occur on this shift LOCOMOTION: WALK - SCORE: 0-UNK LOCOMOTION: WHEELCHAIR: Activity did not occur on this shift LOCOMOTION: WHEELCHAIR - SCORE: 0-UNK COMPREHENSION: COMPREHENSION: TYPE: Both COMPREHENSION - STEP 1: Does the patient require help from a person or device, or need extra time to understand complex and a bstract ideas (such as current events, finances, discharge planning, medical issues, relationships, e tc)? No. COMPREHENSION - STEP 2: Does the patient need extra time, require an assistive device (such as glasses for visual comprehensi on or a hearing aid for auditory comprehension) or does s/he have mild difficulty understanding compl ex and abstract information? Yes. COMPREHENSION - SCORE: 6-SILVESTRE EXPRESSION EXPRESSION: TYPE: Both EXPRESSION - STEP 1: Does the patient require help from a person or device, or need extra time expressing complex and abst ract ideas (such as current events, finances, discharge planning, medical issues, relationships, etc) ? No. EXPRESSION - STEP 2: Does the patient need extra time, require an assistive device (such as augmentive communication syste m or a communication board), OR does s/he have mild difficulty expressing complex and abstract ideas (including mild dysarthria or mild word-find problems)? No. EXPRESSION - SCORE: 7-IND SOCIAL INTERACTION: SOCIAL INTERACTION - STEP 1: Does the patient require a helper to interact with others in social and therapeutic situations? No. SOCIAL INTERACTION - STEP 2: Does the patient need extra time in social situations, OR does s/he interact with staff, other patien ts, and family members ONLY in structured environments, OR does s/he require medication for social in teraction? Yes, patient requires medication for social interaction SOCIAL INTERACTION - SCORE: 6-SILVESTRE PROBLEM SOLVING: PROBLEM SOLVING - STEP 1: Does the patient need help from a person or device, or need extra time to solve complex problems such as managing a checking account or confronting interpersonal problems? Yes. PROBLEM SOLVING - STEP 2: Does the patient solve basic routine problems half or more of the time? Yes. PROBLEM SOLVING - STEP 3: How often does the patient need help to solve basic routine problems? 10%-24% of the time PROBLEM SOLVING - SCORE: 4-MIN MEMORY: MEMORY - STEP 1: Does the patient need help from a person or device, or need extra time to remember frequently encount ered people, daily routines, and executing requests? No. MEMORY - STEP 2: Does the patient have slight difficulty recognizing frequently encountered people, daily routines, or executing requests without the need for repetition or using self-initiated or environmental cues to remember? Yes. MEMORY - SCORE: 6-SILVESTRE SIGNATURE PANEL: The following modified sections: Eating - Score, Grooming - Score, Dressing - Upper Body - Score, Jitendra ssing - Lower Body - Score, Toileting - Score, Bladder Management - Score, Bowel Management - Score, Transfers: Bed, Chair, Wheelchair - Score, Transfers: Toilet - Score, Transfers: Shower - Score, Good sfers: Tub - Score, Locomotion: Walk - Score, Locomotion: Wheelchair - Score, Comprehension - Score, Expression - Score, Social Interaction - Score, Problem Solving - Score, Memory - Score were [electro nically] signed by Valerie Almanzar CNA on ThuJul 18 2018 00:57:09 GMT-0500 (Central Daylight Time)
[2018-07-18] MEDS: TRAMADOL HCL 50 MG TAB PO PRN (06:15)
[2018-07-18] MEDS: LIDOCAINE 5% PATCH TOP SCH (09:34)
[2018-07-18] MEDS: VALSARTAN 80 MG TAB PO SCH (09:35)
[2018-07-18] MEDS: FLECAINIDE 100 MG TAB PO SCH ×2 (09:35→21:24)
[2018-07-18] MEDS: FUROSEMIDE 20 MG TABLET PO SCH (09:36)
[2018-07-18] MEDS: GABAPENTIN 300 MG CAP PO SCH ×3 (09:36→21:25)
[2018-07-18] MEDS: CRANBERRY FRUIT EXTRACT 200 MG CAP PO SCH ×2 (09:37→21:24)
[2018-07-18] MEDS: CITALOPRAM 10 MG TABLET PO SCH (09:37)
[2018-07-18] MEDS: APIXABAN 2.5 MG TABLET PO SCH ×2 (09:42→21:25)
[2018-07-18] MEDS: MAGNESIUM OXIDE 400 MG TAB PO SCH ×2 (09:43→21:25)
--- NOTE | 2018-07-18 10:03 | RAD REPORT ---
EXAM DESCRIPTION: RAD - Hip Left 2 View - 07/18/2018 6:50 am CLINICAL HISTORY: Worsening left hip pain COMPARISON: None. FINDINGS: AP and frogleg views of the left hip were obtained. There is no fracture or dislocation. N o acute or destructive bony process seen. Mild degenerative change seen at the superior margin aceta bulum. No soft tissue abnormality. IMPRESSION: Negative left hip examination for acute or significant findings.
[2018-07-18 10:21] LABS: Potassium 4.4 mmol/L (3.5-5.1)
[2018-07-18] MEDS: LISINOPRIL 5 MG TAB PO SCH (12:27)
[2018-07-18] MEDS: DOCUSATE NA/SENNA CONC 1 TAB PO SCH (21:24)
[2018-07-18] MEDS: ALPRAZOLAM 1 MG TABLET PO SCH (21:24)
[2018-07-18] MEDS: POLYVINYL ALCOHOL 1.4% 15 ML EACH EYE PRN (21:25)
[2018-07-18] MEDS: TAMSULOSIN 0.4 MG SR CAP PO SCH (21:25)
[2018-07-18] MEDS: ATORVASTATIN 10 MG TAB PO SCH (21:25)
--- NOTE | 2018-07-19 02:52 | FAST ---
SHIFT START DATE/TIME: 07/18/2018 19:00 (CDT) SHIFT END DATE/TIME: 07/19/2018 07:00 (CDT) NAME PRICE ROGERS DATE OF : 1940 DATE OF ADMISSION: 07/05/2018 18:33 (CDT) PHONE: AGE: 78 N# [id number] GENDER: Male ENCOUNTER PHYSICIAN: Dr. Abdirahman Zepeda M.D. 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 EATING: Activity did not occur on this shift EATING - SCORE: 0-UNK GROOMING: Activity did not occur on this shift GROOMING - SCORE: 0-UNK BATHING: Activity did not occur on this shift BATHING - SCORE: 0-UNK DRESSING - UPPER BODY: Patient is not dressing in public clothing ARTICLES SCORE Total number of steps: 0 DRESSING - UPPER BODY - SCORE: 0-UNK DRESSING - LOWER BODY: Patient is not dressing in public clothing ARTICLES SCORE Total number of steps: 0 DRESSING - LOWER BODY - SCORE: 0-UNK TOILETING: TOILETING - STEP 1: Does the patient require the assistance of a person or device, or need extra time with toileting? Yes . TOILETING - STEP 2: Does the patient require the assistance of a helper? Yes. TOILETING - STEP 3: How much assistance does the patient require from the helper? Hands-on assistance from the helper TOILETING - STEP 4: Of the 3 tasks: 1) Adjusting clothing prior to use, 2) Cleansing of perineal area, 3) Adjusting clot merissa after use; How many tasks does the patient perform WITHOUT assistance of the helper? No tasks; h elper performs all three tasks TOILETING - SCORE: 1-DEP BLADDER MANAGEMENT: [place] removes incontinent device (Depends, pull ups, etc.); cleans the patient after accident / inco ntinent episode; and, applies new incontinent device. BLADDER MANAGEMENT - SCORE: 1-DEP BOWEL MANAGEMENT: [place] removes incontinent device (depends, pull ups, etc.); cleans the patient after accident / inco ntinent episode; and, applies new device (depends, pull-ups, padding, etc.). BOWEL MANAGEMENT - SCORE: 1-DEP TRANSFERS: BED, CHAIR, WHEELCHAIR: Patient requires more than one helper and/or the use of a mechanical lift is utilized TRANSFERS: BED, CHAIR, WHEELCHAIR - SCORE: 1-DEP TRANSFERS: TOILET: Patient requires more than one helper and/or the use of a mechanical lift is utilized TRANSFERS: TOILET - SCORE: 1-DEP TRANSFERS: SHOWER: Activity did not occur on this shift TRANSFERS: SHOWER - SCORE: 0-UNK TRANSFERS: TUB: Activity did not occur on this shift TRANSFERS: TUB - SCORE: 0-UNK LOCOMOTION: WALK: Activity did not occur on this shift LOCOMOTION: WALK - SCORE: 0-UNK LOCOMOTION: WHEELCHAIR: Activity did not occur on this shift LOCOMOTION: WHEELCHAIR - SCORE: 0-UNK COMPREHENSION: COMPREHENSION: TYPE: Both COMPREHENSION - STEP 1: Does the patient require help from a person or device, or need extra time to understand complex and a bstract ideas (such as current events, finances, discharge planning, medical issues, relationships, e tc)? No. COMPREHENSION - STEP 2: Does the patient need extra time, require an assistive device (such as glasses for visual comprehensi on or a hearing aid for auditory comprehension) or does s/he have mild difficulty understanding compl ex and abstract information? Yes. COMPREHENSION - SCORE: 6-SILVESTRE EXPRESSION EXPRESSION: TYPE: Both EXPRESSION - STEP 1: Does the patient require help from a person or device, or need extra time expressing complex and abst ract ideas (such as current events, finances, discharge planning, medical issues, relationships, etc) ? No. EXPRESSION - STEP 2: Does the patient need extra time, require an assistive device (such as augmentive communication syste m or a communication board), OR does s/he have mild difficulty expressing complex and abstract ideas (including mild dysarthria or mild word-find problems)? Yes. EXPRESSION - SCORE: 6-SILVESTRE SOCIAL INTERACTION: SOCIAL INTERACTION - STEP 1: Does the patient require a helper to interact with others in social and therapeutic situations? No. SOCIAL INTERACTION - STEP 2: Does the patient need extra time in social situations, OR does s/he interact with staff, other patien ts, and family members ONLY in structured environments, OR does s/he require medication for social in teraction? Yes, patient requires medication for social interaction SOCIAL INTERACTION - SCORE: 6-SILVESTRE PROBLEM SOLVING: PROBLEM SOLVING - STEP 1: Does the patient need help from a person or device, or need extra time to solve complex problems such as managing a checking account or confronting interpersonal problems? Yes. PROBLEM SOLVING - STEP 2: Does the patient solve basic routine problems half or more of the time? Yes. PROBLEM SOLVING - STEP 3: How often does the patient need help to solve basic routine problems? 10%-24% of the time PROBLEM SOLVING - SCORE: 4-MIN MEMORY: MEMORY - STEP 1: Does the patient need help from a person or device, or need extra time to remember frequently encount ered people, daily routines, and executing requests? No. MEMORY - STEP 2: Does the patient have slight difficulty recognizing frequently encountered people, daily routines, or executing requests without the need for repetition or using self-initiated or environmental cues to remember? Yes. MEMORY - SCORE: 6-SILVESTRE SIGNATURE PANEL: The following modified sections: Eating - Score, Grooming - Score, Dressing - Upper Body - Score, Jitendra ssing - Lower Body - Score, Toileting - Score, Bladder Management - Score, Bowel Management - Score, Transfers: Bed, Chair, Wheelchair - Score, Transfers: Toilet - Score, Transfers: Shower - Score, Good sfers: Tub - Score, Locomotion: Walk - Score, Locomotion: Wheelchair - Score, Comprehension - Score, Expression - Score, Social Interaction - Score, Problem Solving - Score, Memory - Score were [electro nically] signed by Valerie Almanzar CNA on ThuJul 19 2018 02:52:15 T-0500 (Central Daylight Time)
[2018-07-19] MEDS: LISINOPRIL 5 MG TAB PO SCH (08:00)
[2018-07-19] MEDS: FUROSEMIDE 20 MG TABLET PO SCH (08:00)
[2018-07-19] MEDS: LIDOCAINE 5% PATCH TOP SCH (08:16)
[2018-07-19] MEDS: GABAPENTIN 300 MG CAP PO SCH ×3 (08:16→20:40)
[2018-07-19] MEDS: TRAMADOL HCL 50 MG TAB PO PRN (08:16)
[2018-07-19] MEDS: CYANOCOBALAMIN 1,000 MCG TAB PO SCH (08:17)
[2018-07-19] MEDS: FLECAINIDE 100 MG TAB PO SCH ×2 (08:17→19:43)
[2018-07-19] MEDS: MAGNESIUM OXIDE 400 MG TAB PO SCH ×2 (08:17→19:43)
[2018-07-19] MEDS: CITALOPRAM 10 MG TABLET PO SCH (08:17)
[2018-07-19] MEDS: CRANBERRY FRUIT EXTRACT 200 MG CAP PO SCH ×2 (08:17→19:43)
[2018-07-19] MEDS: APIXABAN 2.5 MG TABLET PO SCH ×2 (08:17→19:43)
[2018-07-19] MEDS: VALSARTAN 80 MG TAB PO SCH (11:58)
[2018-07-19] MEDS: LACTULOSE 20 GM/30 ML UCUP PO PRN (15:07)
--- NOTE | 2018-07-19 17:47 | FAST ---
SHIFT START DATE/TIME: 07/19/2018 07:00 (CDT) SHIFT END DATE/TIME: 07/19/2018 19:00 (CDT) NAME PRICE ROGERS DATE OF : 1940 DATE OF ADMISSION: 07/05/2018 18:33 (CDT) PHONE: AGE: 78 N# [id number] GENDER: Male ENCOUNTER PHYSICIAN: Dr. Abdirahman Zepeda M.D. 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 EATING: EATING - STEP 1: Does the patient require the assistance of a person or device, or need extra time when eating? Yes. EATING - STEP 2: Does the patient require the assistance of a helper? Yes. EATING - STEP 3: Does the patient perform half or more of the eating tasks? Yes. EATING - STEP 4: Does the patient need only supervision, cuing, coaxing OR help to apply an orthosis OR help to cut fo od, open containers, pour liquids, or butter bread? Yes. EATING - SCORE: 5-SUP GROOMING: GROOMING - STEP 1: Does the patient require the assistance of a person or device, or need extra time when grooming? Yes. GROOMING - STEP 2: Does the patient require the assistance of a helper? Yes. GROOMING - STEP 3: How much assistance does the patient require from the helper? Only prior equipment preparation/set up from the helper GROOMING - SCORE: 5-SUP BATHING: Activity did not occur on this shift BATHING - SCORE: 0-UNK DRESSING - UPPER BODY: Activity did not occur on this shift ARTICLES SCORE Total number of steps: 0 DRESSING - UPPER BODY - SCORE: 0-UNK DRESSING - LOWER BODY: Elastic waist pants (three steps) Underwear (three steps) ARTICLES SCORE Total number of steps: 6 DRESSING - LOWER BODY - STEP 1: Does the patient require help from a person or device, or need extra time when dressing below the [address] st? Yes. DRESSING - LOWER BODY - STEP 2: Does the patient require the assistance of a helper? Yes. DRESSING - LOWER BODY - STEP 3: Does the helper touch the patient while dressing? Yes. DRESSING - LOWER BODY - STEP 4: How many of the total steps does the patient complete on his/her own? 1 DRESSING - LOWER BODY - STEP 5: Does patient require total assistance for dressing below the waist such as the helper holding clothin g and performing basically all the activities? Yes. DRESSING - LOWER BODY - SCORE: 1-DEP TOILETING: TOILETING - STEP 1: Does the patient require the assistance of a person or device, or need extra time with toileting? Yes . TOILETING - STEP 2: Does the patient require the assistance of a helper? Yes. TOILETING - STEP 3: How much assistance does the patient require from the helper? Hands-on assistance from the helper TOILETING - STEP 4: Of the 3 tasks: 1) Adjusting clothing prior to use, 2) Cleansing of perineal area, 3) Adjusting clot merissa after use; How many tasks does the patient perform WITHOUT assistance of the helper? No tasks; h elper performs all three tasks TOILETING - SCORE: 1-DEP BLADDER MANAGEMENT: [place] removes incontinent device (Depends, pull ups, etc.); cleans the patient after accident / inco ntinent episode; and, applies new incontinent device. BLADDER MANAGEMENT - SCORE: 1-DEP BLADDER MANAGEMENT - FREQUENCY OF ACCIDENTS: BLADDER MANAGEMENT(FA) - STEP 1: How many accidents has the patient had during the current shift? 1 BOWEL MANAGEMENT: [place] removes incontinent device (depends, pull ups, etc.); cleans the patient after accident / inco ntinent episode; and, applies new device (depends, pull-ups, padding, etc.). BOWEL MANAGEMENT - SCORE: 1-DEP BOWEL MANAGEMENT - FREQUENCY OF ACCIDENTS: BOWEL MANAGEMENT(FA) - STEP 1: How many accidents has the patient had during the current shift? 0 TRANSFERS: BED, CHAIR, WHEELCHAIR: TRANSFERS: BED, CHAIR, WHEELCHAIR - STEP 1: Does the patient require assistance of a person or device, or need extra time with bed, chair, or whe elchair transfers? Yes. TRANSFERS: BED, CHAIR, WHEELCHAIR - STEP 2: Does the patient require the assistance of a helper? Yes. TRANSFERS: BED, CHAIR, WHEELCHAIR - STEP 3: How much assistance does the patient require from the helper? Lifting of the patient TRANSFERS: BED, CHAIR, WHEELCHAIR - STEP 4: Does the helper lift the patient ONLY up? ONLY down? Up AND Down? Patient needs help with all lifting TRANSFERS: BED, CHAIR, WHEELCHAIR - SCORE: 1-DEP TRANSFERS: TOILET: TRANSFERS: TOILET - STEP 1: Does the patient require the assistance of a person or device, or need extra time with toilet transfe rs? Yes. TRANSFERS: TOILET - STEP 2: Does the patient require the assistance of a helper? Yes. TRANSFERS: TOILET - STEP 3: How much assistance does the patient require from the helper? Patient performs less than half of the transferring tasks TRANSFERS: TOILET - STEP 4: Does the patient require total assistance for the toilet transfer such as the helper doing basically all the lifting? Yes. TRANSFERS: TOILET - SCORE: 1-DEP TRANSFERS: SHOWER: Activity did not occur on this shift TRANSFERS: SHOWER - SCORE: 0-UNK TRANSFERS: TUB: Activity did not occur on this shift TRANSFERS: TUB - SCORE: 0-UNK LOCOMOTION: WALK: Activity did not occur on this shift LOCOMOTION: WALK - SCORE: 0-UNK LOCOMOTION: WHEELCHAIR: Activity did not occur on this shift LOCOMOTION: WHEELCHAIR - SCORE: 0-UNK COMPREHENSION: COMPREHENSION - SCORE: 0-UNK EXPRESSION EXPRESSION - SCORE: 0-UNK SOCIAL INTERACTION: SOCIAL INTERACTION - SCORE: 0-UNK PROBLEM SOLVING: PROBLEM SOLVING - SCORE: 0-UNK MEMORY: MEMORY - SCORE: 0-UNK SIGNATURE PANEL: The following modified sections: Eating - Score, Grooming - Score, Bathing - Score, Dressing - Upper Body - Score, Dressing - Lower Body - Score, Toileting - Score, Bladder Management - Score, Bowel Man agement - Score, Transfers: Bed, Chair, Wheelchair - Score, Transfers: Toilet - Score, Transfers: Melissa wer - Score, Transfers: Tub - Score, Locomotion: Walk - Score, Locomotion: Wheelchair - Score, Compre hension - Score, Expression - Score, Social Interaction - Score, Problem Solving - Score, Memory - Sc ore were [electronically] signed by Pily Conrad CNA on ThuJul 19 2018 17:46:38 GMT-0500 (Centra [place] Daylight Time)
--- NOTE | 2018-07-19 19:13 | R.PN ---
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 SUBJECTIVE: Pt denied any Shortness of Breath. Pt denied any depression. Patient states that pain is under control. Hgb 11.7, prealbumin 20.7. Functional transfers done with total assistance. He requires total assistance for transfers and all activities of daily living. His legs buckle while attempting to stand. He stood in the parallel bars with moderate assistance. left hip x-ray shows no fractures. VITAL SIGNS Temperature: 97.4 F SBP/DBP: 106/66 Pulse: 56 Resp: 16 MEDICATION ALLERGIES: No Known Drug Allergies (NKDA) ENVIRONMENTAL ALLERGIES: None Known - Substance Allergies None Known - Other Allergies None Known NURSING: - Shower allowing shower - Bladder care per protocol - Skin care per protocol PRECAUTIONS: - Weight Bearing Precaution WBAT left LE ACTIVITIES OOB only with supervision THERAPIES: - Occupational Therapy Evaluate and Treat. Visual Perceptual Training. Cognitive Retraining. - Speech Therapy Cognitive Training. Memory Strategies. Expressive Language Skills. Speech Intelligibility Training. R eceptive Language Skills. Dysphagia Therapy. - Physical Therapy Evaluate and Treat. PHYSICAL EXAM - Gen Alert and awake Lying in bed No apparent distress Oriented to: person, time, and place - Skin No beakdown No abnormalities - Eyes No abnormalities - ENMT No abnormalities - Neck No abnormalities - CVS RRR - Chest No abnormalities - Resp Clear to auscultation - Abd + bowel sounds - GI nondistended Deferred - No abnormalities - Ext Mild left lower extremity edema. - MSK 0/5 strength in the left upper extremity and 2+/5 weakness in left lower extremity. - Neuro 0/5 strength in the left upper extremity and 2+/5 weakness in left lower extremity. - Psych No abnormalities ASSESSMENT: Pt. is a 78 yo Right-handed white male.On 06/25/2018 Pt. presented to [facility] with sudden on set of left-side weakness.On 06/25/2018 he was admitted to [facility] with diagnosis Right MCA. His impairment category is Stroke 01 - Left Body (Right Brain) (01.1).Pre-morbidly, Pt. was independ ent/mod-I in Self-Care, Sphincter Control, Transfers Control, Locomotion, Communication, and Social C ognition; and he had good Sphincter Control.Currently, he has deficits of Self-Care, Transfers Contro l, Locomotion, Communication, Social Cognition, Endurance, Balance, and Safety Awareness.Pt. is now r eferred to [facility] for acute in-patient rehabilitation in order to maximize patient's functional independence in activities of daily living, strength, ROM, and mobility.- Rehab Goal Patient has realistic goal of being discharged at assistance level 6-Maria E to reside at Home with Fam linda/Relatives. MDM/PLAN: - Physical Therapy Gait dysfunction - to improve, our physical therapists will perform initial evaluation of pt's statu s upon admission and devise an individualized program for Gait Training, and Wheel Chair mobility Inability to transfer - to improve, our physical therapists will perform initial evaluation of pt's status upon admission and devise an individualized program for Bed mobility Need for home safety evaluation - to improve, our physical therapists will perform initial evaluatio n of pt's status upon admission and devise an individualized program for Home Evaluation Need in caregiver upon discharge - to improve, our physical therapists will perform initial evaluati on of pt's status upon admission and devise an individualized program for Caregiver Training Edema - to improve, our physical therapists will perform initial evaluation of pt's status upon admi ssion and devise an individualized program for Elevation Training, and Lymphedema Therapy New precaution - to improve, our physical therapists will perform initial evaluation of pt's status upon admission and devise an individualized program for Patient precaution education Poor balance - to improve, our physical therapists will perform initial evaluation of pt's status up on admission and devise an individualized program for Balance Training Poor endurance - to improve, our physical therapists will perform initial evaluation of pt's status upon admission and devise an individualized program for Endurance Training Weakness - to improve, our physical therapists will perform initial evaluation of pt's status upon a dmission and devise an individualized program for Aquatic Therapy, Neuromuscular Reeducation, and Str engthening Achieving independence - to improve, our physical therapists will perform initial evaluation of pt's status upon admission and devise an individualized program for Community Reintegration Activities - Occupational Therapy ADL deficits - to improve, our occupation therapists will perform initial evaluation of pt's status upon admission and devise an individualized program for Bathing, Bed mobility, Community Reintegratio n, Cooking, Dressing, Eating, Fine Motor Skills, Grooming, Homemaking, Kitchen Mobility, Laundry, Pat ient Education, Safety Awareness, Splinting - Positioning, Transfers(Toilet, Tub, Shower), and Wheel Chair Management Cognitive deficits - to improve, our occupation therapists will perform initial evaluation of pt's s tatus upon admission and devise an individualized program for Cognition - orientation Need for career technology teacher - to improve, our occupation therapists will perform initial evaluation of pt's status upon admission and devise an individualized program for Caregiver Training Weakness - to improve, our occupation therapists will perform initial evaluation of pt's status upon admission and devise an individualized program for Aquatic Therapy, Balance, Endurance, UE ROM, and UE strengthening - Diet Type Continue Regular - Diet - Liquid Texture Continue Thin - Tube Feed Continue N/A - Bladder care per protocol - Weight Bearing Precaution WBAT left LE - Skin care per protocol - Diet - Solid Texture Continue Regular Continue Mechanical Soft (Ground) - Shower allowing shower for Dementia, TBI, Stroke, or others FUNCTIONAL STATUS: UPDATED AT WEEKLY TEAM CONFERENCE - Bladder Same accident frequency: 7-Ind - No accidents in the past 7 days - Bowel Same accident frequency: 7-Ind - No accidents in the past 7 days - Walking Same score based on distance walked: 0(N/A) - Wheelchair Same score based on distance traveled: 0(N/A) FUNCTIONAL STATUS: - Self-Care A. Eating sup B. Grooming Anil C. Bathing maxA D. Dressing - Upper Anil E. Dressing - Lower maxA F. Toileting maxA - Sphincter Control G: Bladder control Ind H: Bowel control Ind - Transfers Control I. Bed/Chair/Wheelchair maxA J. Toilet maxA K. Tub/Shower ADNO - Locomotion L. Walk/Wheelchair (C) Dep L. Walk/Wheelchair (W) Dep M. Stairs ADNO - Communication N. Comprehension (B) Anil O. Expression (B) Anil - Social Cognition P. Social Interaction Anil Q. Problem Solving Anil R. Memory Anil - Endurance Fair - Balance Poor - Safety Awareness Fair CURRENT FUNC. DEFICITS: Self-Care, Transfers Control, Locomotion, Communication, Social Cognition, Endurance, Balance, and [place] Awareness SIGNATURE PANEL: (CDT)
[2018-07-19] MEDS: DOCUSATE NA/SENNA CONC 1 TAB PO SCH (20:39)
[2018-07-19] MEDS: ALPRAZOLAM 1 MG TABLET PO SCH (20:40)
[2018-07-19] MEDS: TAMSULOSIN 0.4 MG SR CAP PO SCH (20:40)
[2018-07-19] MEDS: ATORVASTATIN 10 MG TAB PO SCH (20:40)
--- NOTE | 2018-07-20 01:35 | FAST ---
SHIFT START DATE/TIME: 07/19/2018 19:00 (CDT) SHIFT END DATE/TIME: 07/20/2018 07:00 (CDT) NAME PRICE ROGERS DATE OF : 1940 DATE OF ADMISSION: 07/05/2018 18:33 (CDT) PHONE: AGE: 78 N# [id number] GENDER: Male ENCOUNTER PHYSICIAN: Dr. Abdirahman Zepeda M.D. 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 EATING: Activity did not occur on this shift EATING - SCORE: 0-UNK GROOMING: Activity did not occur on this shift GROOMING - SCORE: 0-UNK BATHING: Activity did not occur on this shift BATHING - SCORE: 0-UNK DRESSING - UPPER BODY: Activity did not occur on this shift ARTICLES SCORE Total number of steps: 0 DRESSING - UPPER BODY - SCORE: 0-UNK DRESSING - LOWER BODY: Patient is not dressing in public clothing ARTICLES SCORE Total number of steps: 0 DRESSING - LOWER BODY - SCORE: 0-UNK TOILETING: TOILETING - STEP 1: Does the patient require the assistance of a person or device, or need extra time with toileting? Yes . TOILETING - STEP 2: Does the patient require the assistance of a helper? Yes. TOILETING - STEP 3: How much assistance does the patient require from the helper? Hands-on assistance from the helper TOILETING - STEP 4: Of the 3 tasks: 1) Adjusting clothing prior to use, 2) Cleansing of perineal area, 3) Adjusting clot merissa after use; How many tasks does the patient perform WITHOUT assistance of the helper? No tasks; h elper performs all three tasks TOILETING - SCORE: 1-DEP BLADDER MANAGEMENT: [place] removes incontinent device (Depends, pull ups, etc.); cleans the patient after accident / inco ntinent episode; and, applies new incontinent device. BLADDER MANAGEMENT - SCORE: 1-DEP BOWEL MANAGEMENT: [place] removes incontinent device (depends, pull ups, etc.); cleans the patient after accident / inco ntinent episode; and, applies new device (depends, pull-ups, padding, etc.). BOWEL MANAGEMENT - SCORE: 1-DEP TRANSFERS: BED, CHAIR, WHEELCHAIR: Patient requires more than one helper and/or the use of a mechanical lift is utilized TRANSFERS: BED, CHAIR, WHEELCHAIR - SCORE: 1-DEP TRANSFERS: TOILET: Patient requires more than one helper and/or the use of a mechanical lift is utilized TRANSFERS: TOILET - SCORE: 1-DEP TRANSFERS: SHOWER: Activity did not occur on this shift TRANSFERS: SHOWER - SCORE: 0-UNK TRANSFERS: TUB: Activity did not occur on this shift TRANSFERS: TUB - SCORE: 0-UNK LOCOMOTION: WALK: Activity did not occur on this shift LOCOMOTION: WALK - SCORE: 0-UNK LOCOMOTION: WHEELCHAIR: Activity did not occur on this shift LOCOMOTION: WHEELCHAIR - SCORE: 0-UNK COMPREHENSION: COMPREHENSION: TYPE: Both COMPREHENSION - STEP 1: Does the patient require help from a person or device, or need extra time to understand complex and a bstract ideas (such as current events, finances, discharge planning, medical issues, relationships, e tc)? No. COMPREHENSION - STEP 2: Does the patient need extra time, require an assistive device (such as glasses for visual comprehensi on or a hearing aid for auditory comprehension) or does s/he have mild difficulty understanding compl ex and abstract information? Yes. COMPREHENSION - SCORE: 6-SILVESTRE EXPRESSION EXPRESSION: TYPE: Both EXPRESSION - STEP 1: Does the patient require help from a person or device, or need extra time expressing complex and abst ract ideas (such as current events, finances, discharge planning, medical issues, relationships, etc) ? No. EXPRESSION - STEP 2: Does the patient need extra time, require an assistive device (such as augmentive communication syste m or a communication board), OR does s/he have mild difficulty expressing complex and abstract ideas (including mild dysarthria or mild word-find problems)? No. EXPRESSION - SCORE: 7-IND SOCIAL INTERACTION: SOCIAL INTERACTION - STEP 1: Does the patient require a helper to interact with others in social and therapeutic situations? No. SOCIAL INTERACTION - STEP 2: Does the patient need extra time in social situations, OR does s/he interact with staff, other patien ts, and family members ONLY in structured environments, OR does s/he require medication for social in teraction? Yes, patient needs extra time SOCIAL INTERACTION - SCORE: 6-SILVESTRE PROBLEM SOLVING: PROBLEM SOLVING - STEP 1: Does the patient need help from a person or device, or need extra time to solve complex problems such as managing a checking account or confronting interpersonal problems? No. PROBLEM SOLVING - STEP 2: Does the patient require extra time to make decisions or solve problems, OR does s/he have slight dif ficulty reading, initiating, or self-correcting in unfamiliar situations? No. PROBLEM SOLVING - SCORE: 7-IND MEMORY: MEMORY - STEP 1: Does the patient need help from a person or device, or need extra time to remember frequently encount ered people, daily routines, and executing requests? No. MEMORY - STEP 2: Does the patient have slight difficulty recognizing frequently encountered people, daily routines, or executing requests without the need for repetition or using self-initiated or environmental cues to remember? No. MEMORY - SCORE: 7-IND SIGNATURE PANEL: The following modified sections: Eating - Score, Grooming - Score, Bathing - Score, Dressing - Upper Body - Score, Dressing - Lower Body - Score, Toileting - Score, Bladder Management - Score, Bowel Man agement - Score, Transfers: Bed, Chair, Wheelchair - Score, Transfers: Toilet - Score, Transfers: Melissa wer - Score, Transfers: Tub - Score, Locomotion: Walk - Score, Locomotion: Wheelchair - Score, Compre hension - Score, Expression - Score, Social Interaction - Score, Problem Solving - Score, Memory - Sc ore were [electronically] signed by Michelle Sanders CNA on ThuJul 20 2018 01:34:10 [email or web address] ([facility] ylight Time)
[2018-07-20] MEDS: LIDOCAINE 5% PATCH TOP SCH (08:00)
[2018-07-20] MEDS: GABAPENTIN 300 MG CAP PO SCH ×3 (08:44→20:47)
[2018-07-20] MEDS: CITALOPRAM 10 MG TABLET PO SCH (08:44)
[2018-07-20] MEDS: CYANOCOBALAMIN 1,000 MCG TAB PO SCH (08:44)
[2018-07-20] MEDS: CRANBERRY FRUIT EXTRACT 200 MG CAP PO SCH ×2 (08:44→20:48)
[2018-07-20] MEDS: FUROSEMIDE 20 MG TABLET PO SCH (08:44)
[2018-07-20] MEDS: MAGNESIUM OXIDE 400 MG TAB PO SCH ×2 (08:44→20:47)
[2018-07-20] MEDS: FLECAINIDE 100 MG TAB PO SCH ×2 (08:45→20:48)
[2018-07-20] MEDS: LISINOPRIL 5 MG TAB PO SCH (08:45)
[2018-07-20] MEDS: TRAMADOL HCL 50 MG TAB PO PRN (08:45)
[2018-07-20] MEDS: APIXABAN 2.5 MG TABLET PO SCH ×2 (08:45→20:48)
[2018-07-20] MEDS: ONDANSETRON 4 MG (ODT) TAB PO PRN (10:40)
--- NOTE | 2018-07-20 10:50 | FAST ---
SHIFT START DATE/TIME: 07/20/2018 07:00 (CDT) SHIFT END DATE/TIME: 07/20/2018 19:00 (CDT) NAME PRICE ROGERS DATE OF : 1940 DATE OF ADMISSION: 07/05/2018 18:33 (CDT) PHONE: AGE: 78 N# [id number] GENDER: Male ENCOUNTER PHYSICIAN: Dr. Abdirahman Zepeda M.D. 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 EATING: EATING - STEP 1: Does the patient require the assistance of a person or device, or need extra time when eating? Yes. EATING - STEP 2: Does the patient require the assistance of a helper? Yes. EATING - STEP 3: Does the patient perform half or more of the eating tasks? Yes. EATING - STEP 4: Does the patient need only supervision, cuing, coaxing OR help to apply an orthosis OR help to cut fo od, open containers, pour liquids, or butter bread? Yes. EATING - SCORE: 5-SUP GROOMING: Comb/brush hair Oral care Wash, rinse, and dry face Wash, rinse, and dry hands GROOMING - STEP 1: Does the patient require the assistance of a person or device, or need extra time when grooming? Yes. GROOMING - STEP 2: Does the patient require the assistance of a helper? Yes. GROOMING - STEP 3: How much assistance does the patient require from the helper? Only prior equipment preparation/set up from the helper GROOMING - SCORE: 5-SUP BATHING: Activity did not occur on this shift BATHING - SCORE: 0-UNK DRESSING - UPPER BODY: Activity did not occur on this shift ARTICLES SCORE Total number of steps: 0 DRESSING - UPPER BODY - SCORE: 0-UNK DRESSING - LOWER BODY: Elastic waist pants (three steps) Slip-on shoe - Left foot (one step) Slip-on shoe - Right foot (one step) Sock - Left foot (one step) Sock - Right foot (one step) Underwear (three steps) ARTICLES SCORE Total number of steps: 10 DRESSING - LOWER BODY - STEP 1: Does the patient require help from a person or device, or need extra time when dressing below the [address] st? Yes. DRESSING - LOWER BODY - STEP 2: Does the patient require the assistance of a helper? Yes. DRESSING - LOWER BODY - STEP 3: Does the helper touch the patient while dressing? Yes. DRESSING - LOWER BODY - STEP 4: How many of the total steps does the patient complete on his/her own? 0 DRESSING - LOWER BODY - STEP 5: Does patient require total assistance for dressing below the waist such as the helper holding clothin g and performing basically all the activities? Yes. DRESSING - LOWER BODY - SCORE: 1-DEP TOILETING: TOILETING - STEP 1: Does the patient require the assistance of a person or device, or need extra time with toileting? Yes . TOILETING - STEP 2: Does the patient require the assistance of a helper? Yes. TOILETING - STEP 3: How much assistance does the patient require from the helper? Hands-on assistance from the helper TOILETING - STEP 4: Of the 3 tasks: 1) Adjusting clothing prior to use, 2) Cleansing of perineal area, 3) Adjusting clot merissa after use; How many tasks does the patient perform WITHOUT assistance of the helper? No tasks; h elper performs all three tasks TOILETING - SCORE: 1-DEP BLADDER MANAGEMENT: [place] removes incontinent device (Depends, pull ups, etc.); cleans the patient after accident / inco ntinent episode; and, applies new incontinent device. BLADDER MANAGEMENT - SCORE: 1-DEP BLADDER MANAGEMENT - FREQUENCY OF ACCIDENTS: BLADDER MANAGEMENT(FA) - STEP 1: How many accidents has the patient had during the current shift? 2 BOWEL MANAGEMENT: BOWEL MANAGEMENT - STEP 1: Does the patient control bowels completely and intentionally without equipment devices or medications AND is always continent? No. BOWEL MANAGEMENT - STEP 2: Does the patient require the assistance of a helper? Yes. BOWEL MANAGEMENT - STEP 3: How much assistance does the patient require from the helper? Patient requires maximal assistance - p erforms 25% to 49 % of bowel management tasks BOWEL MANAGEMENT - SCORE: 2-MAX BOWEL MANAGEMENT - FREQUENCY OF ACCIDENTS: BOWEL MANAGEMENT(FA) - STEP 1: How many accidents has the patient had during the current shift? 0 TRANSFERS: BED, CHAIR, WHEELCHAIR: Patient requires more than one helper and/or the use of a mechanical lift is utilized TRANSFERS: BED, CHAIR, WHEELCHAIR - SCORE: 1-DEP TRANSFERS: TOILET: Patient requires more than one helper and/or the use of a mechanical lift is utilized TRANSFERS: TOILET - SCORE: 1-DEP TRANSFERS: SHOWER: Activity did not occur on this shift TRANSFERS: SHOWER - SCORE: 0-UNK TRANSFERS: TUB: Activity did not occur on this shift TRANSFERS: TUB - SCORE: 0-UNK LOCOMOTION: WALK: Activity did not occur on this shift LOCOMOTION: WALK - SCORE: 0-UNK LOCOMOTION: WHEELCHAIR: Activity did not occur on this shift LOCOMOTION: WHEELCHAIR - SCORE: 0-UNK COMPREHENSION: COMPREHENSION: TYPE: Both COMPREHENSION - STEP 1: Does the patient require help from a person or device, or need extra time to understand complex and a bstract ideas (such as current events, finances, discharge planning, medical issues, relationships, e tc)? Yes. COMPREHENSION - STEP 2: Does the patient require help to understand questions or statements about basic needs or ideas (such as hunger, thirst, sleep, safety, daily schedule, room location, or discomfort) half or more of the t aneudy? No. COMPREHENSION - STEP 3: How often does the patient need help to understand directions and conversation about basic needs? 25% - 49% of the time COMPREHENSION - SCORE: 3-MOD EXPRESSION EXPRESSION: TYPE: Both EXPRESSION - STEP 1: Does the patient require help from a person or device, or need extra time expressing complex and abst ract ideas (such as current events, finances, discharge planning, medical issues, relationships, etc) ? Yes. EXPRESSION - STEP 2: Does the patient require help to express basic necessities or ideas (such as hunger, thirst, sleep, s afety, daily schedule, room location, or discomfort) half or more of the time? No. EXPRESSION - STEP 3: How often does the patient need help to express directions and conversation about basic needs? 25-49% of the time EXPRESSION - SCORE: 3-MOD SOCIAL INTERACTION: SOCIAL INTERACTION - STEP 1: Does the patient require a helper to interact with others in social and therapeutic situations? No. SOCIAL INTERACTION - STEP 2: Does the patient need extra time in social situations, OR does s/he interact with staff, other patien ts, and family members ONLY in structured environments, OR does s/he require medication for social in teraction? Yes, patient needs extra time SOCIAL INTERACTION - SCORE: 6-SILVESTRE PROBLEM SOLVING: PROBLEM SOLVING - STEP 1: Does the patient need help from a person or device, or need extra time to solve complex problems such as managing a checking account or confronting interpersonal problems? Yes. PROBLEM SOLVING - STEP 2: Does the patient solve basic routine problems half or more of the time? Yes. PROBLEM SOLVING - STEP 3: How often does the patient need help to solve basic routine problems? 25%-49% of the time PROBLEM SOLVING - SCORE: 3-MOD MEMORY: MEMORY - STEP 1: Does the patient need help from a person or device, or need extra time to remember frequently encount ered people, daily routines, and executing requests? Yes. MEMORY - STEP 2: How often does the patient need help to remember frequently encountered people, daily routines, and e xecuting requests? 10% - 24% of the time MEMORY - SCORE: 4-MIN SIGNATURE PANEL: The following modified sections: Eating - Score, Grooming - Score, Bathing - Score, Dressing - Upper Body - Score, Dressing - Lower Body - Score, Toileting - Score, Bladder Management - Score, Bowel Man agement - Score, Transfers: Bed, Chair, Wheelchair - Score, Transfers: Toilet - Score, Transfers: Melissa wer - Score, Transfers: Tub - Score, Locomotion: Walk - Score, Locomotion: Wheelchair - Score, Compre hension - Score, Expression - Score, Social Interaction - Score, Problem Solving - Score, Memory - Sc ore were [electronically] signed by Penelope Medrano C.N.A. on ThuJul 20 2018 10:49:35 [facility]-0500 ([facility])
[2018-07-20] MEDS: VALSARTAN 80 MG TAB PO SCH (11:50)
[2018-07-20] MEDS: TAMSULOSIN 0.4 MG SR CAP PO SCH (20:47)
[2018-07-20] MEDS: ALPRAZOLAM 1 MG TABLET PO SCH (20:47)
[2018-07-20] MEDS: DOCUSATE NA/SENNA CONC 1 TAB PO SCH (20:47)
[2018-07-20] MEDS: ATORVASTATIN 10 MG TAB PO SCH (20:47)
--- NOTE | 2018-07-21 01:54 | FAST ---
SHIFT START DATE/TIME: 07/20/2018 19:00 (CDT) SHIFT END DATE/TIME: 07/21/2018 07:00 (CDT) NAME PRICE ROGERS DATE OF : 1940 DATE OF ADMISSION: 07/05/2018 18:33 (CDT) PHONE: AGE: 78 SSN# [id number] GENDER: Male ENCOUNTER PHYSICIAN: Dr. Abdirahman Zepeda M.D. 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 EATING: Activity did not occur on this shift EATING - SCORE: 0-UNK GROOMING: Activity did not occur on this shift GROOMING - SCORE: 0-UNK BATHING: Activity did not occur on this shift BATHING - SCORE: 0-UNK DRESSING - UPPER BODY: Patient is not dressing in public clothing ARTICLES SCORE Total number of steps: 0 DRESSING - UPPER BODY - SCORE: 0-UNK DRESSING - LOWER BODY: Patient is not dressing in public clothing ARTICLES SCORE Total number of steps: 0 DRESSING - LOWER BODY - SCORE: 0-UNK TOILETING: Activity did not occur on this shift TOILETING - SCORE: 0-UNK BLADDER MANAGEMENT: Lima removes incontinent device (Depends, pull ups, etc.); cleans the patient after accident / inco ntinent episode; and, applies new incontinent device. BLADDER MANAGEMENT - SCORE: 1-DEP BOWEL MANAGEMENT: Activity did not occur on this shift BOWEL MANAGEMENT - SCORE: 7-IND TRANSFERS: BED, CHAIR, WHEELCHAIR: Activity did not occur on this shift TRANSFERS: BED, CHAIR, WHEELCHAIR - SCORE: 0-UNK TRANSFERS: TOILET: Activity did not occur on this shift TRANSFERS: TOILET - SCORE: 0-UNK TRANSFERS: SHOWER: Activity did not occur on this shift TRANSFERS: SHOWER - SCORE: 0-UNK TRANSFERS: TUB: Activity did not occur on this shift TRANSFERS: TUB - SCORE: 0-UNK LOCOMOTION: WALK: Activity did not occur on this shift LOCOMOTION: WALK - SCORE: 0-UNK LOCOMOTION: WHEELCHAIR: Activity did not occur on this shift LOCOMOTION: WHEELCHAIR - SCORE: 0-UNK COMPREHENSION: COMPREHENSION: TYPE: Both COMPREHENSION - STEP 1: Does the patient require help from a person or device, or need extra time to understand complex and a bstract ideas (such as current events, finances, discharge planning, medical issues, relationships, e tc)? No. COMPREHENSION - STEP 2: Does the patient need extra time, require an assistive device (such as glasses for visual comprehensi on or a hearing aid for auditory comprehension) or does s/he have mild difficulty understanding compl ex and abstract information? Yes. COMPREHENSION - SCORE: 6-SILVESTRE EXPRESSION EXPRESSION: TYPE: Both EXPRESSION - STEP 1: Does the patient require help from a person or device, or need extra time expressing complex and abst ract ideas (such as current events, finances, discharge planning, medical issues, relationships, etc) ? No. EXPRESSION - STEP 2: Does the patient need extra time, require an assistive device (such as augmentive communication syste m or a communication board), OR does s/he have mild difficulty expressing complex and abstract ideas (including mild dysarthria or mild word-find problems)? No. EXPRESSION - SCORE: 7-IND SOCIAL INTERACTION: SOCIAL INTERACTION - STEP 1: Does the patient require a helper to interact with others in social and therapeutic situations? No. SOCIAL INTERACTION - STEP 2: Does the patient need extra time in social situations, OR does s/he interact with staff, other patien ts, and family members ONLY in structured environments, OR does s/he require medication for social in teraction? Yes, patient needs extra time SOCIAL INTERACTION - SCORE: 6-SILVESTRE PROBLEM SOLVING: PROBLEM SOLVING - STEP 1: Does the patient need help from a person or device, or need extra time to solve complex problems such as managing a checking account or confronting interpersonal problems? No. PROBLEM SOLVING - STEP 2: Does the patient require extra time to make decisions or solve problems, OR does s/he have slight dif ficulty reading, initiating, or self-correcting in unfamiliar situations? No. PROBLEM SOLVING - SCORE: 7-IND MEMORY: MEMORY - STEP 1: Does the patient need help from a person or device, or need extra time to remember frequently encount ered people, daily routines, and executing requests? No. MEMORY - STEP 2: Does the patient have slight difficulty recognizing frequently encountered people, daily routines, or executing requests without the need for repetition or using self-initiated or environmental cues to remember? No. MEMORY - SCORE: 7-IND SIGNATURE PANEL: The following modified sections: Eating - Score, Grooming - Score, Bathing - Score, Dressing - Upper Body - Score, Dressing - Lower Body - Score, Toileting - Score, Bladder Management - Score, Bowel Man agement - Score, Transfers: Bed, Chair, Wheelchair - Score, Transfers: Toilet - Score, Transfers: Melissa wer - Score, Transfers: Tub - Score, Locomotion: Walk - Score, Locomotion: Wheelchair - Score, Compre hension - Score, Expression - Score, Social Interaction - Score, Problem Solving - Score, Memory - Sc ore were [electronically] signed by Michelle Sanders CNA on ThuJul 21 2018 01:53:45 T-0500 ([place] ylight Time)
[2018-07-21] MEDS: LISINOPRIL 5 MG TAB PO SCH (08:00)
[2018-07-21] MEDS: LIDOCAINE 5% PATCH TOP SCH (10:17)
[2018-07-21] MEDS: CITALOPRAM 10 MG TABLET PO SCH (10:17)
[2018-07-21] MEDS: MAGNESIUM OXIDE 400 MG TAB PO SCH ×2 (10:18→21:46)
[2018-07-21] MEDS: FLECAINIDE 100 MG TAB PO SCH ×2 (10:18→21:47)
[2018-07-21] MEDS: GABAPENTIN 300 MG CAP PO SCH ×3 (10:19→21:47)
[2018-07-21] MEDS: APIXABAN 2.5 MG TABLET PO SCH ×2 (10:19→21:48)
[2018-07-21] MEDS: TRAMADOL HCL 50 MG TAB PO PRN (10:19)
[2018-07-21] MEDS: CRANBERRY FRUIT EXTRACT 200 MG CAP PO SCH ×2 (10:19→21:46)
[2018-07-21] MEDS: CYANOCOBALAMIN 1,000 MCG TAB PO SCH (10:19)
[2018-07-21] MEDS: FUROSEMIDE 20 MG TABLET PO SCH (10:20)
[2018-07-21] MEDS: ONDANSETRON 4 MG (ODT) TAB PO PRN ×2 (10:22→21:46)
[2018-07-21] MEDS: VALSARTAN 80 MG TAB PO SCH (13:01)
[2018-07-21] MEDS: ACETAMINOPHEN 500 MG TAB PO PRN (13:01)
--- NOTE | 2018-07-21 14:18 | FAST ---
SHIFT START DATE/TIME: 07/21/2018 07:00 (CDT) SHIFT END DATE/TIME: 07/21/2018 19:00 (CDT) NAME PRICE ROGERS DATE OF : 1940 DATE OF ADMISSION: 07/05/2018 18:33 (CDT) PHONE: AGE: 78 N# [id number] GENDER: Male ENCOUNTER PHYSICIAN: Dr. Abdirahman Zepeda M.D. 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 EATING: EATING - STEP 1: Does the patient require the assistance of a person or device, or need extra time when eating? Yes. EATING - STEP 2: Does the patient require the assistance of a helper? No, patient only requires an assistive device, O R s/he takes more than reasonable time to eat, OR there is a safety concern, OR s/he requires modifie d food consistency EATING - SCORE: 6-SILVESTRE GROOMING: Comb/brush hair Oral care Wash, rinse, and dry face Wash, rinse, and dry hands GROOMING - STEP 1: Does the patient require the assistance of a person or device, or need extra time when grooming? Yes. GROOMING - STEP 2: Does the patient require the assistance of a helper? No. The patient only requires an assistive devic e, OR takes more than reasonable time to groom, OR there is a concern for safety as the patient groom s GROOMING - SCORE: 6-SILVESTRE BATHING: Activity did not occur on this shift BATHING - SCORE: 0-UNK DRESSING - UPPER BODY: Activity did not occur on this shift ARTICLES SCORE Total number of steps: 0 DRESSING - UPPER BODY - SCORE: 0-UNK DRESSING - LOWER BODY: Elastic waist pants (three steps) Slip-on shoe - Left foot (one step) Slip-on shoe - Right foot (one step) Underwear (three steps) ARTICLES SCORE Total number of steps: 8 DRESSING - LOWER BODY - STEP 1: Does the patient require help from a person or device, or need extra time when dressing below the har[address] st? Yes. DRESSING - LOWER BODY - STEP 2: Does the patient require the assistance of a helper? Yes. DRESSING - LOWER BODY - STEP 3: Does the helper touch the patient while dressing? Yes. DRESSING - LOWER BODY - STEP 4: How many of the total steps does the patient complete on his/her own? 0 DRESSING - LOWER BODY - STEP 5: Does patient require total assistance for dressing below the waist such as the helper holding clothin g and performing basically all the activities? Yes. DRESSING - LOWER BODY - SCORE: 1-DEP TOILETING: TOILETING - STEP 1: Does the patient require the assistance of a person or device, or need extra time with toileting? Yes . TOILETING - STEP 2: Does the patient require the assistance of a helper? Yes. TOILETING - STEP 3: How much assistance does the patient require from the helper? Hands-on assistance from the helper TOILETING - STEP 4: Of the 3 tasks: 1) Adjusting clothing prior to use, 2) Cleansing of perineal area, 3) Adjusting clot merissa after use; How many tasks does the patient perform WITHOUT assistance of the helper? No tasks; h elper performs all three tasks TOILETING - SCORE: 1-DEP BLADDER MANAGEMENT: Patient is on renal dialysis or peritoneal dialysis and no voiding activity BLADDER MANAGEMENT - SCORE: 7-IND BLADDER MANAGEMENT - FREQUENCY OF ACCIDENTS: BLADDER MANAGEMENT(FA) - STEP 1: How many accidents has the patient had during the current shift? 2 BOWEL MANAGEMENT: BOWEL MANAGEMENT - STEP 1: Does the patient control bowels completely and intentionally without equipment devices or medications AND is always continent? No. BOWEL MANAGEMENT - STEP 2: Does the patient require the assistance of a helper? No, patient requires medication for control such as stool softeners, suppositories, laxatives, enemas, or OTC medications BOWEL MANAGEMENT - SCORE: 6-SILVESTRE BOWEL MANAGEMENT - FREQUENCY OF ACCIDENTS: BOWEL MANAGEMENT(FA) - STEP 1: How many accidents has the patient had during the current shift? 0 TRANSFERS: BED, CHAIR, WHEELCHAIR: Patient requires more than one helper and/or the use of a mechanical lift is utilized TRANSFERS: BED, CHAIR, WHEELCHAIR - SCORE: 1-DEP TRANSFERS: TOILET: Patient requires more than one helper and/or the use of a mechanical lift is utilized TRANSFERS: TOILET - SCORE: 1-DEP TRANSFERS: SHOWER: Activity did not occur on this shift TRANSFERS: SHOWER - SCORE: 0-UNK TRANSFERS: TUB: Activity did not occur on this shift TRANSFERS: TUB - SCORE: 0-UNK LOCOMOTION: WALK: Activity did not occur on this shift LOCOMOTION: WALK - SCORE: 0-UNK LOCOMOTION: WHEELCHAIR: Activity did not occur on this shift LOCOMOTION: WHEELCHAIR - SCORE: 0-UNK COMPREHENSION: COMPREHENSION: TYPE: Both COMPREHENSION - STEP 1: Does the patient require help from a person or device, or need extra time to understand complex and a bstract ideas (such as current events, finances, discharge planning, medical issues, relationships, e tc)? Yes. COMPREHENSION - STEP 2: Does the patient require help to understand questions or statements about basic needs or ideas (such as hunger, thirst, sleep, safety, daily schedule, room location, or discomfort) half or more of the t aneudy? No. COMPREHENSION - STEP 3: How often does the patient need help to understand directions and conversation about basic needs? Les s than 10% of the time COMPREHENSION - SCORE: 5-SUP EXPRESSION EXPRESSION: TYPE: Both EXPRESSION - STEP 1: Does the patient require help from a person or device, or need extra time expressing complex and abst ract ideas (such as current events, finances, discharge planning, medical issues, relationships, etc) ? No. EXPRESSION - STEP 2: Does the patient need extra time, require an assistive device (such as augmentive communication syste m or a communication board), OR does s/he have mild difficulty expressing complex and abstract ideas (including mild dysarthria or mild word-find problems)? Yes. EXPRESSION - SCORE: 6-SILVESTRE SOCIAL INTERACTION: SOCIAL INTERACTION - STEP 1: Does the patient require a helper to interact with others in social and therapeutic situations? No. SOCIAL INTERACTION - STEP 2: Does the patient need extra time in social situations, OR does s/he interact with staff, other patien ts, and family members ONLY in structured environments, OR does s/he require medication for social in teraction? No. SOCIAL INTERACTION - SCORE: 7-IND PROBLEM SOLVING: PROBLEM SOLVING - STEP 1: Does the patient need help from a person or device, or need extra time to solve complex problems such as managing a checking account or confronting interpersonal problems? Yes. PROBLEM SOLVING - STEP 2: Does the patient solve basic routine problems half or more of the time? Yes. PROBLEM SOLVING - STEP 3: How often does the patient need help to solve basic routine problems? Less than 10% of the time PROBLEM SOLVING - SCORE: 5-SUP MEMORY: MEMORY - STEP 1: Does the patient need help from a person or device, or need extra time to remember frequently encount ered people, daily routines, and executing requests? No. MEMORY - STEP 2: Does the patient have slight difficulty recognizing frequently encountered people, daily routines, or executing requests without the need for repetition or using self-initiated or environmental cues to remember? Yes. MEMORY - SCORE: 6-SILVESTRE SIGNATURE PANEL: The following modified sections: Eating - Score, Grooming - Score, Bathing - Score, Dressing - Upper Body - Score, Dressing - Lower Body - Score, Toileting - Score, Bladder Management - Score, Bowel Man agement - Score, Transfers: Bed, Chair, Wheelchair - Score, Transfers: Toilet - Score, Transfers: Melissa wer - Score, Transfers: Tub - Score, Locomotion: Walk - Score, Locomotion: Wheelchair - Score, Compre hension - Score, Expression - Score, Social Interaction - Score, Problem Solving - Score, Memory - Sc ore were [electronically] signed by Vinay NelsonNSin on ThuJul 21 2018 14:17:34 T-0500 ([place])
--- NOTE | 2018-07-21 19:22 | R.PN ---
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 SUBJECTIVE: Pt denied any Shortness of Breath. Pt denied any depression. Patient states that pain is under control. Hgb 11.7, prealbumin 20.7. Functional transfers done with total assistance. He requires total assistance for transfers and all activities of daily living. His legs buckle while attempting to stand. He stood in the parallel bars with moderate assistance. left hip x-ray shows no fractures. VITAL SIGNS Temperature: 97.4 F SBP/DBP: 123/74 Pulse: 68 Resp: 16 MEDICATION ALLERGIES: No Known Drug Allergies (NKDA) ENVIRONMENTAL ALLERGIES: None Known - Substance Allergies None Known - Other Allergies None Known NURSING: - Shower allowing shower - Bladder care per protocol - Skin care per protocol PRECAUTIONS: - Weight Bearing Precaution WBAT left LE ACTIVITIES OOB only with supervision THERAPIES: - Occupational Therapy Evaluate and Treat. Visual Perceptual Training. Cognitive Retraining. - Speech Therapy Cognitive Training. Memory Strategies. Expressive Language Skills. Speech Intelligibility Training. R eceptive Language Skills. Dysphagia Therapy. - Physical Therapy Evaluate and Treat. PHYSICAL EXAM - Gen Alert and awake Lying in bed No apparent distress Oriented to: person, time, and place - Skin No beakdown No abnormalities - Eyes No abnormalities - ENMT No abnormalities - Neck No abnormalities - CVS RRR - Chest No abnormalities - Resp Clear to auscultation - Abd + bowel sounds - GI nondistended Deferred - No abnormalities - Ext Mild left lower extremity edema. - MSK 0/5 strength in the left upper extremity and 2+/5 weakness in left lower extremity. - Neuro 0/5 strength in the left upper extremity and 2+/5 weakness in left lower extremity. - Psych No abnormalities ASSESSMENT: Pt. is a 78 yo Right-handed white male.On 06/25/2018 Pt. presented to [facility] with sudden on set of left-side weakness.On 06/25/2018 he was admitted to [facility] with diagnosis Right MCA. His impairment category is Stroke 01 - Left Body (Right Brain) (01.1).Pre-morbidly, Pt. was independ ent/mod-I in Self-Care, Sphincter Control, Transfers Control, Locomotion, Communication, and Social C ognition; and he had good Sphincter Control.Currently, he has deficits of Self-Care, Transfers Contro l, Locomotion, Communication, Social Cognition, Endurance, Balance, and Safety Awareness.Pt. is now r eferred to [facility] for acute in-patient rehabilitation in order to maximize patient's functional independence in activities of daily living, strength, ROM, and mobility.- Rehab Goal Patient has realistic goal of being discharged at assistance level 6-Maria E to reside at Home with Fam linda/Relatives. MDM/PLAN: - Physical Therapy Gait dysfunction - to improve, our physical therapists will perform initial evaluation of pt's statu s upon admission and devise an individualized program for Gait Training, and Wheel Chair mobility Inability to transfer - to improve, our physical therapists will perform initial evaluation of pt's status upon admission and devise an individualized program for Bed mobility Need for home safety evaluation - to improve, our physical therapists will perform initial evaluatio n of pt's status upon admission and devise an individualized program for Home Evaluation Need in caregiver upon discharge - to improve, our physical therapists will perform initial evaluati on of pt's status upon admission and devise an individualized program for Caregiver Training Edema - to improve, our physical therapists will perform initial evaluation of pt's status upon admi ssion and devise an individualized program for Elevation Training, and Lymphedema Therapy New precaution - to improve, our physical therapists will perform initial evaluation of pt's status upon admission and devise an individualized program for Patient precaution education Poor balance - to improve, our physical therapists will perform initial evaluation of pt's status up on admission and devise an individualized program for Balance Training Poor endurance - to improve, our physical therapists will perform initial evaluation of pt's status upon admission and devise an individualized program for Endurance Training Weakness - to improve, our physical therapists will perform initial evaluation of pt's status upon a dmission and devise an individualized program for Aquatic Therapy, Neuromuscular Reeducation, and Str engthening Achieving independence - to improve, our physical therapists will perform initial evaluation of pt's status upon admission and devise an individualized program for Community Reintegration Activities - Occupational Therapy ADL deficits - to improve, our occupation therapists will perform initial evaluation of pt's status upon admission and devise an individualized program for Bathing, Bed mobility, Community Reintegratio n, Cooking, Dressing, Eating, Fine Motor Skills, Grooming, Homemaking, Kitchen Mobility, Laundry, Pat ient Education, Safety Awareness, Splinting - Positioning, Transfers(Toilet, Tub, Shower), and Wheel Chair Management Cognitive deficits - to improve, our occupation therapists will perform initial evaluation of pt's s tatus upon admission and devise an individualized program for Cognition - orientation Need for nursing care partner - to improve, our occupation therapists will perform initial evaluation of pt's status upon admission and devise an individualized program for Caregiver Training Weakness - to improve, our occupation therapists will perform initial evaluation of pt's status upon admission and devise an individualized program for Aquatic Therapy, Balance, Endurance, UE ROM, and UE strengthening - Diet Type Continue Regular - Diet - Liquid Texture Continue Thin - Tube Feed Continue N/A - Bladder care per protocol - Weight Bearing Precaution WBAT left LE - Skin care per protocol - Diet - Solid Texture Continue Regular Continue Mechanical Soft (Ground) - Shower allowing shower for Dementia, TBI, Stroke, or others FUNCTIONAL STATUS: UPDATED AT WEEKLY TEAM CONFERENCE - Bladder Same accident frequency: 7-Ind - No accidents in the past 7 days - Bowel Same accident frequency: 7-Ind - No accidents in the past 7 days - Walking Same score based on distance walked: 0(N/A) - Wheelchair Same score based on distance traveled: 0(N/A) FUNCTIONAL STATUS: - Self-Care A. Eating sup B. Grooming Anil C. Bathing maxA D. Dressing - Upper Anil E. Dressing - Lower maxA F. Toileting maxA - Sphincter Control G: Bladder control Ind H: Bowel control Ind - Transfers Control I. Bed/Chair/Wheelchair maxA J. Toilet maxA K. Tub/Shower ADNO - Locomotion L. Walk/Wheelchair (C) Dep L. Walk/Wheelchair (W) Dep M. Stairs ADNO - Communication N. Comprehension (B) Anil O. Expression (B) Anil - Social Cognition P. Social Interaction Anil Q. Problem Solving Anil R. Memory Anil - Endurance Fair - Balance Poor - Safety Awareness Fair CURRENT FUNC. DEFICITS: Self-Care, Transfers Control, Locomotion, Communication, Social Cognition, Endurance, Balance, and [place] Awareness SIGNATURE PANEL: (CDT)
[2018-07-21] MEDS: ALPRAZOLAM 1 MG TABLET PO SCH (21:46)
[2018-07-21] MEDS: TAMSULOSIN 0.4 MG SR CAP PO SCH (21:46)
[2018-07-21] MEDS: DOCUSATE NA/SENNA CONC 1 TAB PO SCH (21:47)
[2018-07-21] MEDS: ATORVASTATIN 10 MG TAB PO SCH (21:47)
[2018-07-21] MEDS: POLYVINYL ALCOHOL 1.4% 15 ML EACH EYE PRN (21:48)
[2018-07-21] MEDS: MELATONIN 3 MG TABLET PO PRN (22:57)
--- NOTE | 2018-07-22 01:43 | FAST ---
SHIFT START DATE/TIME: 07/21/2018 19:00 (CDT) SHIFT END DATE/TIME: 07/22/2018 07:00 (CDT) NAME PRICE ROGERS DATE OF : 1940 DATE OF ADMISSION: 07/05/2018 18:33 (CDT) PHONE: AGE: 78 N# [id number] GENDER: Male ENCOUNTER PHYSICIAN: Dr. Abdirahman Zepeda M.D. 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 EATING: Activity did not occur on this shift EATING - SCORE: 0-UNK GROOMING: Activity did not occur on this shift GROOMING - SCORE: 0-UNK BATHING: Activity did not occur on this shift BATHING - SCORE: 0-UNK DRESSING - UPPER BODY: Patient is not dressing in public clothing ARTICLES SCORE Total number of steps: 0 DRESSING - UPPER BODY - SCORE: 0-UNK DRESSING - LOWER BODY: Patient is not dressing in public clothing ARTICLES SCORE Total number of steps: 0 DRESSING - LOWER BODY - SCORE: 0-UNK TOILETING: TOILETING - STEP 1: Does the patient require the assistance of a person or device, or need extra time with toileting? Yes . TOILETING - STEP 2: Does the patient require the assistance of a helper? Yes. TOILETING - STEP 3: How much assistance does the patient require from the helper? Hands-on assistance from the helper TOILETING - STEP 4: Of the 3 tasks: 1) Adjusting clothing prior to use, 2) Cleansing of perineal area, 3) Adjusting clot merissa after use; How many tasks does the patient perform WITHOUT assistance of the helper? No tasks; h elper performs all three tasks TOILETING - SCORE: 1-DEP BLADDER MANAGEMENT: [place] removes incontinent device (Depends, pull ups, etc.); cleans the patient after accident / inco ntinent episode; and, applies new incontinent device. BLADDER MANAGEMENT - SCORE: 1-DEP BLADDER MANAGEMENT - FREQUENCY OF ACCIDENTS: BLADDER MANAGEMENT(FA) - STEP 1: How many accidents has the patient had during the current shift? 1 BOWEL MANAGEMENT: Activity did not occur on this shift BOWEL MANAGEMENT - SCORE: 7-IND TRANSFERS: BED, CHAIR, WHEELCHAIR: Activity did not occur on this shift TRANSFERS: BED, CHAIR, WHEELCHAIR - SCORE: 0-UNK TRANSFERS: TOILET: Activity did not occur on this shift TRANSFERS: TOILET - SCORE: 0-UNK TRANSFERS: SHOWER: Activity did not occur on this shift TRANSFERS: SHOWER - SCORE: 0-UNK TRANSFERS: TUB: Activity did not occur on this shift TRANSFERS: TUB - SCORE: 0-UNK LOCOMOTION: WALK: Activity did not occur on this shift LOCOMOTION: WALK - SCORE: 0-UNK LOCOMOTION: WHEELCHAIR: Activity did not occur on this shift LOCOMOTION: WHEELCHAIR - SCORE: 0-UNK COMPREHENSION: COMPREHENSION: TYPE: Both COMPREHENSION - STEP 1: Does the patient require help from a person or device, or need extra time to understand complex and a bstract ideas (such as current events, finances, discharge planning, medical issues, relationships, e tc)? No. COMPREHENSION - STEP 2: Does the patient need extra time, require an assistive device (such as glasses for visual comprehensi on or a hearing aid for auditory comprehension) or does s/he have mild difficulty understanding compl ex and abstract information? Yes. COMPREHENSION - SCORE: 6-SILVESTRE EXPRESSION EXPRESSION: TYPE: Both EXPRESSION - STEP 1: Does the patient require help from a person or device, or need extra time expressing complex and abst ract ideas (such as current events, finances, discharge planning, medical issues, relationships, etc) ? No. EXPRESSION - STEP 2: Does the patient need extra time, require an assistive device (such as augmentive communication syste m or a communication board), OR does s/he have mild difficulty expressing complex and abstract ideas (including mild dysarthria or mild word-find problems)? Yes. EXPRESSION - SCORE: 6-SILVESTRE SOCIAL INTERACTION: SOCIAL INTERACTION - STEP 1: Does the patient require a helper to interact with others in social and therapeutic situations? No. SOCIAL INTERACTION - STEP 2: Does the patient need extra time in social situations, OR does s/he interact with staff, other patien ts, and family members ONLY in structured environments, OR does s/he require medication for social in teraction? Yes, patient requires medication for social interaction SOCIAL INTERACTION - SCORE: 6-SILVESTRE PROBLEM SOLVING: PROBLEM SOLVING - STEP 1: Does the patient need help from a person or device, or need extra time to solve complex problems such as managing a checking account or confronting interpersonal problems? Yes. PROBLEM SOLVING - STEP 2: Does the patient solve basic routine problems half or more of the time? Yes. PROBLEM SOLVING - STEP 3: How often does the patient need help to solve basic routine problems? 25%-49% of the time PROBLEM SOLVING - SCORE: 3-MOD MEMORY: MEMORY - STEP 1: Does the patient need help from a person or device, or need extra time to remember frequently encount ered people, daily routines, and executing requests? No. MEMORY - STEP 2: Does the patient have slight difficulty recognizing frequently encountered people, daily routines, or executing requests without the need for repetition or using self-initiated or environmental cues to remember? Yes. MEMORY - SCORE: 6-SILVESTRE SIGNATURE PANEL: The following modified sections: Eating - Score, Grooming - Score, Dressing - Upper Body - Score, Jitendra ssing - Lower Body - Score, Toileting - Score, Bladder Management - Score, Bowel Management - Score, Transfers: Bed, Chair, Wheelchair - Score, Transfers: Toilet - Score, Transfers: Shower - Score, Good sfers: Tub - Score, Locomotion: Walk - Score, Locomotion: Wheelchair - Score, Comprehension - Score, Expression - Score, Social Interaction - Score, Problem Solving - Score, Memory - Score were [electro nically] signed by Valerie Almanzar CNA on ThuJul 22 2018 01:42:26 GMT-0500 (Central Daylight Time)
[2018-07-22 06:24] LABS: Absolute Lymphocytes (CBC) 1.7 K/uL (0.7-4.9); Basophils % 0.3 % (0-1.3); Lymphocytes % 23.4 % (15.3-44.8)
[2018-07-22 06:52] LABS: Albumin 2.8 g/dL (3.4-5.0); Magnesium 2.3 mg/dL (1.8-2.4); Potassium 4.3 mmol/L (3.5-5.1)
[2018-07-22] MEDS: LIDOCAINE 5% PATCH TOP SCH (08:53)
[2018-07-22] MEDS: GABAPENTIN 300 MG CAP PO SCH ×3 (08:53→20:41)
[2018-07-22] MEDS: LISINOPRIL 5 MG TAB PO SCH (08:54)
[2018-07-22] MEDS: FLECAINIDE 100 MG TAB PO SCH ×2 (08:54→20:40)
[2018-07-22] MEDS: APIXABAN 2.5 MG TABLET PO SCH ×2 (08:54→20:41)
[2018-07-22] MEDS: FUROSEMIDE 20 MG TABLET PO SCH (08:54)
[2018-07-22] MEDS: CYANOCOBALAMIN 1,000 MCG TAB PO SCH (08:54)
[2018-07-22] MEDS: CITALOPRAM 10 MG TABLET PO SCH (08:55)
[2018-07-22] MEDS: MAGNESIUM OXIDE 400 MG TAB PO SCH ×2 (08:56→20:41)
[2018-07-22] MEDS: CRANBERRY FRUIT EXTRACT 200 MG CAP PO SCH ×2 (08:56→20:41)
[2018-07-22] MEDS: TRAMADOL HCL 50 MG TAB PO PRN (09:11)
--- NOTE | 2018-07-22 11:23 | FAST ---
SHIFT START DATE/TIME: 07/22/2018 07:00 (CDT) SHIFT END DATE/TIME: 07/22/2018 19:00 (CDT) NAME PRICE ROGERS DATE OF : 1940 DATE OF ADMISSION: 07/05/2018 18:33 (CDT) PHONE: AGE: 78 N# [id number] GENDER: Male ENCOUNTER PHYSICIAN: Dr. Abdirahman Zepeda M.D. 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 EATING: EATING - STEP 1: Does the patient require the assistance of a person or device, or need extra time when eating? Yes. EATING - STEP 2: Does the patient require the assistance of a helper? Yes. EATING - STEP 3: Does the patient perform half or more of the eating tasks? Yes. EATING - STEP 4: Does the patient need only supervision, cuing, coaxing OR help to apply an orthosis OR help to cut fo od, open containers, pour liquids, or butter bread? Yes. EATING - SCORE: 5-SUP GROOMING: Comb/brush hair Oral care Wash, rinse, and dry face Wash, rinse, and dry hands GROOMING - STEP 1: Does the patient require the assistance of a person or device, or need extra time when grooming? Yes. GROOMING - STEP 2: Does the patient require the assistance of a helper? Yes. GROOMING - STEP 3: How much assistance does the patient require from the helper? Only prior equipment preparation/set up from the helper GROOMING - SCORE: 5-SUP BATHING: Activity did not occur on this shift BATHING - SCORE: 0-UNK DRESSING - UPPER BODY: T-shirt/pullover shirt (four steps) ARTICLES SCORE Total number of steps: 4 DRESSING - UPPER BODY - STEP 1: Does the patient require help from a person or device, or need extra time when dressing above the [address]? Yes. DRESSING - UPPER BODY - STEP 2: Does the patient require the assistance of a helper? Yes. DRESSING - UPPER BODY - STEP 3: Does the helper touch the patient while dressing? Yes. DRESSING - UPPER BODY - STEP 4: How many of the total steps does the patient complete on his/her own? 0 DRESSING - UPPER BODY - STEP 5: Does Patient require total assistance for dressing above the waist such as the helper holding clothin g and performing basically all the activities? Yes. DRESSING - UPPER BODY - SCORE: 1-DEP DRESSING - LOWER BODY: Elastic waist pants (three steps) Slip-on shoe - Left foot (one step) Slip-on shoe - Right foot (one step) Underwear (three steps) ARTICLES SCORE Total number of steps: 8 DRESSING - LOWER BODY - STEP 1: Does the patient require help from a person or device, or need extra time when dressing below the [address]? Yes. DRESSING - LOWER BODY - STEP 2: Does the patient require the assistance of a helper? Yes. DRESSING - LOWER BODY - STEP 3: Does the helper touch the patient while dressing? Yes. DRESSING - LOWER BODY - STEP 4: How many of the total steps does the patient complete on his/her own? 0 DRESSING - LOWER BODY - STEP 5: Does patient require total assistance for dressing below the waist such as the helper holding clothin g and performing basically all the activities? Yes. DRESSING - LOWER BODY - SCORE: 1-DEP TOILETING: TOILETING - STEP 1: Does the patient require the assistance of a person or device, or need extra time with toileting? Yes . TOILETING - STEP 2: Does the patient require the assistance of a helper? Yes. TOILETING - STEP 3: How much assistance does the patient require from the helper? Hands-on assistance from the helper TOILETING - STEP 4: Of the 3 tasks: 1) Adjusting clothing prior to use, 2) Cleansing of perineal area, 3) Adjusting clot merissa after use; How many tasks does the patient perform WITHOUT assistance of the helper? No tasks; h raquel performs all three tasks TOILETING - SCORE: 1-DEP BLADDER MANAGEMENT: Patient is on renal dialysis or peritoneal dialysis and no voiding activity BLADDER MANAGEMENT - SCORE: 7-IND BLADDER MANAGEMENT - FREQUENCY OF ACCIDENTS: BLADDER MANAGEMENT(FA) - STEP 1: How many accidents has the patient had during the current shift? 2 BOWEL MANAGEMENT: BOWEL MANAGEMENT - STEP 1: Does the patient control bowels completely and intentionally without equipment devices or medications AND is always continent? No. BOWEL MANAGEMENT - STEP 2: Does the patient require the assistance of a helper? No, patient requires medication for control such as stool softeners, suppositories, laxatives, enemas, or OTC medications BOWEL MANAGEMENT - SCORE: 6-SILVESTRE BOWEL MANAGEMENT - FREQUENCY OF ACCIDENTS: BOWEL MANAGEMENT(FA) - STEP 1: How many accidents has the patient had during the current shift? 0 TRANSFERS: BED, CHAIR, WHEELCHAIR: Patient requires more than one helper and/or the use of a mechanical lift is utilized TRANSFERS: BED, CHAIR, WHEELCHAIR - SCORE: 1-DEP TRANSFERS: TOILET: Patient requires more than one helper and/or the use of a mechanical lift is utilized TRANSFERS: TOILET - SCORE: 1-DEP TRANSFERS: SHOWER: Activity did not occur on this shift TRANSFERS: SHOWER - SCORE: 0-UNK TRANSFERS: TUB: Activity did not occur on this shift TRANSFERS: TUB - SCORE: 0-UNK LOCOMOTION: WALK: Activity did not occur on this shift LOCOMOTION: WALK - SCORE: 0-UNK LOCOMOTION: WHEELCHAIR: Activity did not occur on this shift LOCOMOTION: WHEELCHAIR - SCORE: 0-UNK COMPREHENSION: COMPREHENSION: TYPE: Both COMPREHENSION - STEP 1: Does the patient require help from a person or device, or need extra time to understand complex and a bstract ideas (such as current events, finances, discharge planning, medical issues, relationships, e tc)? Yes. COMPREHENSION - STEP 2: Does the patient require help to understand questions or statements about basic needs or ideas (such as hunger, thirst, sleep, safety, daily schedule, room location, or discomfort) half or more of the t aneudy? No. COMPREHENSION - STEP 3: How often does the patient need help to understand directions and conversation about basic needs? Les s than 10% of the time COMPREHENSION - SCORE: 5-SUP EXPRESSION EXPRESSION: TYPE: Both EXPRESSION - STEP 1: Does the patient require help from a person or device, or need extra time expressing complex and abst ract ideas (such as current events, finances, discharge planning, medical issues, relationships, etc) ? Yes. EXPRESSION - STEP 2: Does the patient require help to express basic necessities or ideas (such as hunger, thirst, sleep, s afety, daily schedule, room location, or discomfort) half or more of the time? No. EXPRESSION - STEP 3: How often does the patient need help to express directions and conversation about basic needs? Less t smiley 10% of the time EXPRESSION - SCORE: 5-SUP SOCIAL INTERACTION: SOCIAL INTERACTION - STEP 1: Does the patient require a helper to interact with others in social and therapeutic situations? No. SOCIAL INTERACTION - STEP 2: Does the patient need extra time in social situations, OR does s/he interact with staff, other patien ts, and family members ONLY in structured environments, OR does s/he require medication for social in teraction? Yes, patient needs extra time SOCIAL INTERACTION - SCORE: 6-SILVESTRE PROBLEM SOLVING: PROBLEM SOLVING - STEP 1: Does the patient need help from a person or device, or need extra time to solve complex problems such as managing a checking account or confronting interpersonal problems? Yes. PROBLEM SOLVING - STEP 2: Does the patient solve basic routine problems half or more of the time? Yes. PROBLEM SOLVING - STEP 3: How often does the patient need help to solve basic routine problems? Less than 10% of the time PROBLEM SOLVING - SCORE: 5-SUP MEMORY: MEMORY - STEP 1: Does the patient need help from a person or device, or need extra time to remember frequently encount ered people, daily routines, and executing requests? Yes. MEMORY - STEP 2: How often does the patient need help to remember frequently encountered people, daily routines, and e xecuting requests? 10% - 24% of the time MEMORY - SCORE: 4-MIN SIGNATURE PANEL: The following modified sections: Eating - Score, Grooming - Score, Bathing - Score, Dressing - Upper Body - Score, Dressing - Lower Body - Score, Toileting - Score, Bladder Management - Score, Bowel Man agement - Score, Transfers: Bed, Chair, Wheelchair - Score, Transfers: Toilet - Score, Transfers: Melissa wer - Score, Transfers: Tub - Score, Locomotion: Walk - Score, Locomotion: Wheelchair - Score, Compre hension - Score, Expression - Score, Social Interaction - Score, Problem Solving - Score, Memory - Sc ore were [electronically] signed by Penelope Medrano C.N.A. on ThuJul 22 2018 11:22:25 T-0500 (Centra l Daylight Time)
[2018-07-22] MEDS: VALSARTAN 80 MG TAB PO SCH (12:00)
[2018-07-22] MEDS: ACETAMINOPHEN 500 MG TAB PO PRN (12:43)
[2018-07-22] MEDS: ONDANSETRON 4 MG (ODT) TAB PO PRN (13:26)
[2018-07-22] MEDS: ATORVASTATIN 10 MG TAB PO SCH (20:41)
[2018-07-22] MEDS: POLYVINYL ALCOHOL 1.4% 15 ML EACH EYE PRN (20:42)
[2018-07-22] MEDS: TAMSULOSIN 0.4 MG SR CAP PO SCH (20:42)
[2018-07-22] MEDS: DOCUSATE NA/SENNA CONC 1 TAB PO SCH (20:42)
[2018-07-22] MEDS: ALPRAZOLAM 1 MG TABLET PO SCH (20:43)
--- NOTE | 2018-07-22 22:30 | R.PN ---
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 SUBJECTIVE: Pt denied any Shortness of Breath. Pt denied any depression. Patient states that pain is under control. Hgb 11.7, prealbumin 20.7. Functional transfers done with total assistance. He requires total assistance for transfers and all activities of daily living. His legs buckle while attempting to stand. He stood in the parallel bars with moderate assistance. left hip x-ray shows no fractures. Therapeutic exercises done with contact guard assistance. VITAL SIGNS Temperature: 97.4 F SBP/DBP: 123/74 Pulse: 68 Resp: 16 MEDICATION ALLERGIES: No Known Drug Allergies (NKDA) ENVIRONMENTAL ALLERGIES: None Known - Substance Allergies None Known - Other Allergies None Known NURSING: - Shower allowing shower - Bladder care per protocol - Skin care per protocol PRECAUTIONS: - Weight Bearing Precaution WBAT left LE ACTIVITIES OOB only with supervision THERAPIES: - Occupational Therapy Evaluate and Treat. Visual Perceptual Training. Cognitive Retraining. - Speech Therapy Cognitive Training. Memory Strategies. Expressive Language Skills. Speech Intelligibility Training. R eceptive Language Skills. Dysphagia Therapy. - Physical Therapy Evaluate and Treat. PHYSICAL EXAM - Gen Alert and awake Lying in bed No apparent distress Oriented to: person, time, and place - Skin No beakdown No abnormalities - Eyes No abnormalities - ENMT No abnormalities - Neck No abnormalities - CVS RRR - Chest No abnormalities - Resp Clear to auscultation - Abd + bowel sounds - GI nondistended Deferred - No abnormalities - Ext Mild left lower extremity edema. - MSK 0/5 strength in the left upper extremity and 2+/5 weakness in left lower extremity. - Neuro 0/5 strength in the left upper extremity and 2+/5 weakness in left lower extremity. - Psych No abnormalities ASSESSMENT: Pt. is a 78 yo Right-handed white male.On 06/25/2018 Pt. presented to [facility] with sudden on set of left-side weakness.On 06/25/2018 he was admitted to [facility] with diagnosis Right MCA. His impairment category is Stroke 01 - Left Body (Right Brain) (01.1).Pre-morbidly, Pt. was independ ent/mod-I in Self-Care, Sphincter Control, Transfers Control, Locomotion, Communication, and Social C ognition; and he had good Sphincter Control.Currently, he has deficits of Self-Care, Transfers Contro l, Locomotion, Communication, Social Cognition, Endurance, Balance, and Safety Awareness.Pt. is now r eferred to [facility] for acute in-patient rehabilitation in order to maximize patient's functional independence in activities of daily living, strength, ROM, and mobility.- Rehab Goal Patient has realistic goal of being discharged at assistance level 6-Maria E to reside at Home with Fam linda/Relatives. MDM/PLAN: - Physical Therapy Gait dysfunction - to improve, our physical therapists will perform initial evaluation of pt's statu s upon admission and devise an individualized program for Gait Training, and Wheel Chair mobility Inability to transfer - to improve, our physical therapists will perform initial evaluation of pt's status upon admission and devise an individualized program for Bed mobility Need for home safety evaluation - to improve, our physical therapists will perform initial evaluatio n of pt's status upon admission and devise an individualized program for Home Evaluation Need in caregiver upon discharge - to improve, our physical therapists will perform initial evaluati on of pt's status upon admission and devise an individualized program for Caregiver Training Edema - to improve, our physical therapists will perform initial evaluation of pt's status upon admi ssion and devise an individualized program for Elevation Training, and Lymphedema Therapy New precaution - to improve, our physical therapists will perform initial evaluation of pt's status upon admission and devise an individualized program for Patient precaution education Poor balance - to improve, our physical therapists will perform initial evaluation of pt's status up on admission and devise an individualized program for Balance Training Poor endurance - to improve, our physical therapists will perform initial evaluation of pt's status upon admission and devise an individualized program for Endurance Training Weakness - to improve, our physical therapists will perform initial evaluation of pt's status upon a dmission and devise an individualized program for Aquatic Therapy, Neuromuscular Reeducation, and Str engthening Achieving independence - to improve, our physical therapists will perform initial evaluation of pt's status upon admission and devise an individualized program for Community Reintegration Activities - Occupational Therapy ADL deficits - to improve, our occupation therapists will perform initial evaluation of pt's status upon admission and devise an individualized program for Bathing, Bed mobility, Community Reintegratio n, Cooking, Dressing, Eating, Fine Motor Skills, Grooming, Homemaking, Kitchen Mobility, Laundry, Pat ient Education, Safety Awareness, Splinting - Positioning, Transfers(Toilet, Tub, Shower), and Wheel Chair Management Cognitive deficits - to improve, our occupation therapists will perform initial evaluation of pt's s tatus upon admission and devise an individualized program for Cognition - orientation Need for critical care nurse - to improve, our occupation therapists will perform initial evaluation of pt's status upon admission and devise an individualized program for Caregiver Training Weakness - to improve, our occupation therapists will perform initial evaluation of pt's status upon admission and devise an individualized program for Aquatic Therapy, Balance, Endurance, UE ROM, and UE strengthening - Diet Type Continue Regular - Diet - Liquid Texture Continue Thin - Tube Feed Continue N/A - Bladder care per protocol - Weight Bearing Precaution WBAT left LE - Skin care per protocol - Diet - Solid Texture Continue Regular Continue Mechanical Soft (Ground) - Shower allowing shower for Dementia, TBI, Stroke, or others FUNCTIONAL STATUS: UPDATED AT WEEKLY TEAM CONFERENCE - Bladder Same accident frequency: 7-Ind - No accidents in the past 7 days - Bowel Same accident frequency: 7-Ind - No accidents in the past 7 days - Walking Same score based on distance walked: 0(N/A) - Wheelchair Same score based on distance traveled: 0(N/A) FUNCTIONAL STATUS: - Self-Care A. Eating sup B. Grooming Anil C. Bathing maxA D. Dressing - Upper Anil E. Dressing - Lower maxA F. Toileting maxA - Sphincter Control G: Bladder control Ind H: Bowel control Ind - Transfers Control I. Bed/Chair/Wheelchair maxA J. Toilet maxA K. Tub/Shower ADNO - Locomotion L. Walk/Wheelchair (C) Dep L. Walk/Wheelchair (W) Dep M. Stairs ADNO - Communication N. Comprehension (B) Anil O. Expression (B) Anil - Social Cognition P. Social Interaction Anil Q. Problem Solving Anil R. Memory Anil - Endurance Fair - Balance Poor - Safety Awareness Fair CURRENT FUNC. DEFICITS: Self-Care, Transfers Control, Locomotion, Communication, Social Cognition, Endurance, Balance, and Sa fety Awareness SIGNATURE PANEL: (CDT)
[2018-07-22] MEDS: MELATONIN 3 MG TABLET PO PRN (22:46)
--- NOTE | 2018-07-23 03:05 | FAST ---
SHIFT START DATE/TIME: 07/22/2018 19:00 (CDT) SHIFT END DATE/TIME: 07/23/2018 07:00 (CDT) NAME PRICE ROGERS DATE OF : 1940 DATE OF ADMISSION: 07/05/2018 18:33 (CDT) PHONE: AGE: 78 N# [id number] GENDER: Male ENCOUNTER PHYSICIAN: Dr. Abdirahman Zepeda M.D. 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 EATING: Activity did not occur on this shift EATING - SCORE: 0-UNK GROOMING: Activity did not occur on this shift GROOMING - SCORE: 0-UNK BATHING: Activity did not occur on this shift BATHING - SCORE: 0-UNK DRESSING - UPPER BODY: Patient is not dressing in public clothing ARTICLES SCORE Total number of steps: 0 DRESSING - UPPER BODY - SCORE: 0-UNK DRESSING - LOWER BODY: Patient is not dressing in public clothing ARTICLES SCORE Total number of steps: 0 DRESSING - LOWER BODY - SCORE: 0-UNK TOILETING: TOILETING - STEP 1: Does the patient require the assistance of a person or device, or need extra time with toileting? Yes . TOILETING - STEP 2: Does the patient require the assistance of a helper? Yes. TOILETING - STEP 3: How much assistance does the patient require from the helper? Hands-on assistance from the helper TOILETING - STEP 4: Of the 3 tasks: 1) Adjusting clothing prior to use, 2) Cleansing of perineal area, 3) Adjusting clot merissa after use; How many tasks does the patient perform WITHOUT assistance of the helper? No tasks; h elper performs all three tasks TOILETING - SCORE: 1-DEP BLADDER MANAGEMENT: [place] removes incontinent device (Depends, pull ups, etc.); cleans the patient after accident / inco ntinent episode; and, applies new incontinent device. BLADDER MANAGEMENT - SCORE: 1-DEP BLADDER MANAGEMENT - FREQUENCY OF ACCIDENTS: BLADDER MANAGEMENT(FA) - STEP 1: How many accidents has the patient had during the current shift? 1 BOWEL MANAGEMENT: [place] removes incontinent device (depends, pull ups, etc.); cleans the patient after accident / inco ntinent episode; and, applies new device (depends, pull-ups, padding, etc.). BOWEL MANAGEMENT - SCORE: 1-DEP BOWEL MANAGEMENT - FREQUENCY OF ACCIDENTS: BOWEL MANAGEMENT(FA) - STEP 1: How many accidents has the patient had during the current shift? 1 TRANSFERS: BED, CHAIR, WHEELCHAIR: Patient requires more than one helper and/or the use of a mechanical lift is utilized TRANSFERS: BED, CHAIR, WHEELCHAIR - SCORE: 1-DEP TRANSFERS: TOILET: Patient requires more than one helper and/or the use of a mechanical lift is utilized TRANSFERS: TOILET - SCORE: 1-DEP TRANSFERS: SHOWER: Activity did not occur on this shift TRANSFERS: SHOWER - SCORE: 0-UNK TRANSFERS: TUB: Activity did not occur on this shift TRANSFERS: TUB - SCORE: 0-UNK LOCOMOTION: WALK: Activity did not occur on this shift LOCOMOTION: WALK - SCORE: 0-UNK LOCOMOTION: WHEELCHAIR: Activity did not occur on this shift LOCOMOTION: WHEELCHAIR - SCORE: 0-UNK COMPREHENSION: COMPREHENSION: TYPE: Both COMPREHENSION - STEP 1: Does the patient require help from a person or device, or need extra time to understand complex and a bstract ideas (such as current events, finances, discharge planning, medical issues, relationships, e tc)? No. COMPREHENSION - STEP 2: Does the patient need extra time, require an assistive device (such as glasses for visual comprehensi on or a hearing aid for auditory comprehension) or does s/he have mild difficulty understanding compl ex and abstract information? Yes. COMPREHENSION - SCORE: 6-SILVESTRE EXPRESSION EXPRESSION: TYPE: Both EXPRESSION - STEP 1: Does the patient require help from a person or device, or need extra time expressing complex and abst ract ideas (such as current events, finances, discharge planning, medical issues, relationships, etc) ? No. EXPRESSION - STEP 2: Does the patient need extra time, require an assistive device (such as augmentive communication syste m or a communication board), OR does s/he have mild difficulty expressing complex and abstract ideas (including mild dysarthria or mild word-find problems)? Yes. EXPRESSION - SCORE: 6-SILVESTRE SOCIAL INTERACTION: SOCIAL INTERACTION - STEP 1: Does the patient require a helper to interact with others in social and therapeutic situations? No. SOCIAL INTERACTION - STEP 2: Does the patient need extra time in social situations, OR does s/he interact with staff, other patien ts, and family members ONLY in structured environments, OR does s/he require medication for social in teraction? Yes, patient needs extra time SOCIAL INTERACTION - SCORE: 6-SILVESTRE PROBLEM SOLVING: PROBLEM SOLVING - STEP 1: Does the patient need help from a person or device, or need extra time to solve complex problems such as managing a checking account or confronting interpersonal problems? Yes. PROBLEM SOLVING - STEP 2: Does the patient solve basic routine problems half or more of the time? Yes. PROBLEM SOLVING - STEP 3: How often does the patient need help to solve basic routine problems? 10%-24% of the time PROBLEM SOLVING - SCORE: 4-MIN MEMORY: MEMORY - STEP 1: Does the patient need help from a person or device, or need extra time to remember frequently encount ered people, daily routines, and executing requests? No. MEMORY - STEP 2: Does the patient have slight difficulty recognizing frequently encountered people, daily routines, or executing requests without the need for repetition or using self-initiated or environmental cues to remember? Yes. MEMORY - SCORE: 6-SILVESTRE SIGNATURE PANEL: The following modified sections: Eating - Score, Grooming - Score, Dressing - Upper Body - Score, Jitendra ssing - Lower Body - Score, Toileting - Score, Bladder Management - Score, Bowel Management - Score, Transfers: Bed, Chair, Wheelchair - Score, Transfers: Toilet - Score, Transfers: Shower - Score, Good sfers: Tub - Score, Locomotion: Walk - Score, Locomotion: Wheelchair - Score, Comprehension - Score, Expression - Score, Social Interaction - Score, Problem Solving - Score, Memory - Score were [electro nically] signed by Valerie Almanzar CNA on ThuJul 23 2018 03:04:47 GMT-0500 (Central Daylight Time)
[2018-07-23] MEDS: TRAMADOL HCL 50 MG TAB PO PRN ×2 (04:26→13:09)
[2018-07-23] MEDS: CITALOPRAM 10 MG TABLET PO SCH (07:50)
[2018-07-23] MEDS: APIXABAN 2.5 MG TABLET PO SCH ×2 (07:51→20:55)
[2018-07-23] MEDS: FUROSEMIDE 20 MG TABLET PO SCH (07:51)
[2018-07-23] MEDS: CYANOCOBALAMIN 1,000 MCG TAB PO SCH (07:51)
[2018-07-23] MEDS: LISINOPRIL 5 MG TAB PO SCH (07:51)
[2018-07-23] MEDS: CRANBERRY FRUIT EXTRACT 200 MG CAP PO SCH ×2 (07:51→20:55)
[2018-07-23] MEDS: FLECAINIDE 100 MG TAB PO SCH ×2 (07:51→20:56)
[2018-07-23] MEDS: MAGNESIUM OXIDE 400 MG TAB PO SCH ×2 (07:52→20:55)
[2018-07-23] MEDS: LIDOCAINE 5% PATCH TOP SCH (07:52)
[2018-07-23] MEDS: GABAPENTIN 300 MG CAP PO SCH ×3 (09:00→20:56)
--- NOTE | 2018-07-23 09:24 | P.RH.PN ---
Estimated Length of Stay: 23 Expected Discharge Date: 07/27/18 Discharge Disposition Plan: Home Family Support: Yes Shelter Goal: Mobility, Transfers, Self Care Vital Signs: Last Vital Signs Temp 97.2 F 07/22/18 20:00 Pulse 71 07/22/18 20:00 Resp 18 07/22/18 20:00 BP 119/65 07/22/18 20:00 Pulse Ox 96 07/22/18 20:00 Laboratory: Laboratory Last Values WBC 7.2 K/uL (4.3-10.9) 07/22/18 05:38 RBC 3.70 M/uL (4.33-5.43) L 07/22/18 05:38 Hgb 11.6 g/dL (13.6-17.9) L 07/22/18 05:38 Hct 35.0 % (39.6-49.0) L 07/22/18 05:38 MCV 94.6 fL (80-100) 07/22/18 05:38 MCH 31.5 pg (27.0-35.0) 07/22/18 05:38 MCHC 33.3 g/dL (32.0-36.0) 07/22/18 05:38 RDW 14.5 % (12.1-15.2) 07/22/18 05:38 Plt Count 212 K/uL (152-406) 07/22/18 05:38 MPV 9.0 fL (7.6-11.3) 07/22/18 05:38 Neutrophils % 57.4 % (41.7-73.7) 07/22/18 05:38 Lymphocytes % 23.4 % (15.3-44.8) 07/22/18 05:38 Monocytes % 8.7 % (3.3-12.3) 07/22/18 05:38 Eosinophils % 10.2 % (0-4.4) H 07/22/18 05:38 Basophils % 0.3 % (0-1.3) 07/22/18 05:38 Absolute Neutrophils 4.1 K/uL (1.8-8.0) 07/22/18 05:38 Absolute Lymphocytes 1.7 K/uL (0.7-4.9) 07/22/18 05:38 Absolute Monocytes 0.6 K/uL (0.1-1.3) 07/22/18 05:38 Absolute Eosinophils 0.7 K/uL (0-0.5) H 07/22/18 05:38 Absolute Basophils 0.0 K/uL (0-0.5) 07/22/18 05:38 Sodium 141 mmol/L (136-145) 07/22/18 05:38 Potassium 4.3 mmol/L (3.5-5.1) 07/22/18 05:38 Chloride 105 mmol/L (98-107) 07/22/18 05:38 Carbon Dioxide 34 mmol/L (21-32) H 07/22/18 05:38 BUN 15 mg/dL (7-18) 07/22/18 05:38 Creatinine 0.87 mg/dL (0.55-1.3) 07/22/18 05:38 Estimated GFR 85 mL/min (=/>90) L 07/22/18 05:38 Glucose 93 mg/dL (74-106) 07/22/18 05:38 Calcium 8.1 mg/dL (8.5-10.1) L 07/22/18 05:38 Magnesium 2.3 mg/dL (1.8-2.4) 07/22/18 05:38 Total Bilirubin 0.7 mg/dL (0.2-1.0) 07/06/18 06:04 Direct Bilirubin 0.2 mg/dL (0-0.2) 07/06/18 06:04 AST 25 U/L (15-37) 07/06/18 06:04 ALT 29 U/L (12-78) 07/06/18 06:04 Alkaline Phosphatase 94 U/L (45-117) 07/06/18 06:04 Serum Total Protein 7.0 g/dL (6.4-8.2) 07/06/18 06:04 Albumin 2.8 g/dL (3.4-5.0) L 07/22/18 05:38 Globulin 3.9 g/dL (2.3-3.5) H 07/06/18 06:04 Albumin/Globulin Ratio 0.8 (1.1-1.8) L 07/06/18 06:04 Prealbumin 20.0 mg/dL (20-40) 07/22/18 05:38 Urine Color Yellow 07/11/18 10:59 Urine Appearance Clear 07/11/18 10:59 Urine pH 6.0 (5.0-7.0) 07/11/18 10:59 Ur Specific [place] 1.020 (1.005-1.030) 07/11/18 10:59 Urine Ketones Negative (NEG) 07/11/18 10:59 Urine Blood Negative (NEG) 07/11/18 10:59 Urine Nitrite Negative (NEG) 07/11/18 10:59 Urine Bilirubin Negative (NEG) 07/11/18 10:59 Urine Urobilinogen 1.0 mg/dL (0.2-1.0) 07/11/18 10:59 Ur Leukocyte Esterase Trace (NEG) H 07/11/18 10:59 Urine RBC <5 /HPF (NONE SEEN) 07/11/18 10:59 Urine WBC <5 /HPF (<5) 07/11/18 10:59 Ur Squamous Epith Cells 5-10 /HPF (NONE SEEN) H 07/11/18 10:59 Urine Bacteria <20 /HPF (NONE SEEN) 07/11/18 10:59 Urine Mucus Slight /HPF (NONE SEEN) 07/07/18 00:10 Urine Culture Reflexed Not needed 07/11/18 10:59 Urine Glucose Negative (NEG) 07/11/18 10:59 Urine Total Protein Negative (NEG) 07/11/18 10:59 Weight: 214 lb 2 oz Wound Present: Yes Closed Surgical Incision Present: No Negative Pressure Wound Therapy Present: No Physician Update: He had brief memory lapse episode. He is depressed about his stroke deficits. his antidepressant dosage was increased. He is at max assistance on the parallel bars. He is contact guard moving a wheelchair backwards. Will ask for another week as he is making fair overall progress. Medical Issues: DVT Prophylaxis - Eliquis 2.5mg BID Pain Issues: [place] 5/325mg Q6H PRN. Tramadol 50mg Q6H PRN. Lidocaine pacth 5% Daily Functional Improvement: Patient continuing to work toward meeting short-term goals at this time. Patient has presented w/ low BP the previous two days, therefore requiring patient to be limited w/ therapy. Functional Improvement Occupational Therapy: Patient has demonstrated significant improvement toward OT goals. However, due to patient's, also significant weakness, continues to demonstrate symptoms of depression, requiring frequent resting breaks and verbal encouragement. Patient would benefit form further agressive OT at inpatient rehabilitation facility to address the goals as set in POC before d/c. Speech Therapy Update: Pt. is at MOD I for Auditory Comprehension, Verbal Expression, Social Interaction, Problem Solving, and Memory. Pt. cont. to present with mild-moderate dysarthria 2/2 rapid speech rate, mumling/jumbling speech, reduced breath support/respiratory control, and reduced articulatory precision. Pt. required MIN A for correct implementation of compensatory dysarthria strategies. Pt. has been upgraded to regular solids/thin liquids with extra gravy. Pt. has min (trace) oral dysphagia characterized by left sided pocketing/residual which he removes using a lingual sweep + re-swallow and /or liquid wash at MOD I. Summary: Patient's care plan and terminal gauger goals have been reviewed and revised as necessary. Please see the Rehabilitation Signature page for all necessary signatures.
[2018-07-23] MEDS: VALSARTAN 80 MG TAB PO SCH (12:27)
--- NOTE | 2018-07-23 16:16 | FAST ---
ENCOUNTER DATE AND TIME: 07/19/2018 08:00 (CDT) NAME PRICE ROGERS DATE OF : 1940 DATE OF ADMISSION: 07/05/2018 18:33 (CDT) PHONE: AGE: 78 SSN# [id number] GENDER: Male ENCOUNTER PHYSICIAN: Dr. Abdirahman Zepeda M.D. 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 EATING: Activity did not occur on this shift EATING - SCORE: 0-UNK GROOMING: Activity did not occur on this shift GROOMING - SCORE: 0-UNK BATHING: Activity did not occur on this shift BATHING - SCORE: 0-UNK DRESSING - UPPER BODY: Activity did not occur on this shift Patient is not dressing in public clothing ARTICLES SCORE Total number of steps: 0 DRESSING - UPPER BODY - SCORE: 0-UNK DRESSING - LOWER BODY: Activity did not occur on this shift Patient is not dressing in public clothing ARTICLES SCORE Total number of steps: 0 DRESSING - LOWER BODY - SCORE: 0-UNK TOILETING: Activity did not occur on this shift TOILETING - SCORE: 0-UNK BLADDER MANAGEMENT: Activity did not occur on this shift BLADDER MANAGEMENT - SCORE: 7-IND BOWEL MANAGEMENT: Activity did not occur on this shift BOWEL MANAGEMENT - SCORE: 7-IND TRANSFERS: BED, CHAIR, WHEELCHAIR: Activity did not occur on this shift TRANSFERS: BED, CHAIR, WHEELCHAIR - SCORE: 0-UNK TRANSFERS: TOILET: Activity did not occur on this shift TRANSFERS: TOILET - SCORE: 0-UNK TRANSFERS: SHOWER: Activity did not occur on this shift TRANSFERS: SHOWER - SCORE: 0-UNK TRANSFERS: TUB: Activity did not occur on this shift TRANSFERS: TUB - SCORE: 0-UNK LOCOMOTION: WALK: Activity did not occur on this shift LOCOMOTION: WALK - SCORE: 0-UNK LOCOMOTION: WHEELCHAIR: Activity did not occur on this shift LOCOMOTION: WHEELCHAIR - SCORE: 0-UNK LOCOMOTION: STAIRS: Activity did not occur on this shift LOCOMOTION: STAIRS - SCORE: 0-UNK COMPREHENSION: COMPREHENSION - SCORE: 0-UNK EXPRESSION EXPRESSION - SCORE: 0-UNK SOCIAL INTERACTION: SOCIAL INTERACTION - SCORE: 0-UNK PROBLEM SOLVING: PROBLEM SOLVING - SCORE: 0-UNK MEMORY: MEMORY - SCORE: 0-UNK SIGNATURE PANEL: The following modified sections: Transfers: Bed, Chair, Wheelchair - Score, Transfers: Toilet - Score , Locomotion: Walk - Score, Locomotion: Wheelchair - Score, Locomotion: Stairs - Score were [electron daphney] signed by Lorne Garcia PTA on ThuJul 23 2018 16:15:12 GMT-0500 (Central Daylight Time)
--- NOTE | 2018-07-23 16:25 | FAST ---
ENCOUNTER DATE AND TIME: 07/20/2018 08:00 (CDT) NAME PRICE ROGERS DATE OF : 1940 DATE OF ADMISSION: 07/05/2018 18:33 (CDT) PHONE: AGE: 78 SSN# [id number] GENDER: Male ENCOUNTER PHYSICIAN: Dr. Abdirahman Zepeda M.D. 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 EATING: Activity did not occur on this shift EATING - SCORE: 0-UNK GROOMING: Activity did not occur on this shift GROOMING - SCORE: 0-UNK BATHING: Activity did not occur on this shift BATHING - SCORE: 0-UNK DRESSING - UPPER BODY: Activity did not occur on this shift Patient is not dressing in public clothing ARTICLES SCORE Total number of steps: 0 DRESSING - UPPER BODY - SCORE: 0-UNK DRESSING - LOWER BODY: Activity did not occur on this shift Patient is not dressing in public clothing ARTICLES SCORE Total number of steps: 0 DRESSING - LOWER BODY - SCORE: 0-UNK TOILETING: Activity did not occur on this shift TOILETING - SCORE: 0-UNK BLADDER MANAGEMENT: Activity did not occur on this shift BLADDER MANAGEMENT - SCORE: 7-IND BOWEL MANAGEMENT: Activity did not occur on this shift BOWEL MANAGEMENT - SCORE: 7-IND TRANSFERS: BED, CHAIR, WHEELCHAIR: TRANSFERS: BED, CHAIR, WHEELCHAIR - STEP 1: Does the patient require assistance of a person or device, or need extra time with bed, chair, or whe elchair transfers? Yes. TRANSFERS: BED, CHAIR, WHEELCHAIR - STEP 2: Does the patient require the assistance of a helper? Yes. TRANSFERS: BED, CHAIR, WHEELCHAIR - STEP 3: How much assistance does the patient require from the helper? Steadying/guiding assistance TRANSFERS: BED, CHAIR, WHEELCHAIR - SCORE: 4-MIN TRANSFERS: TOILET: Activity did not occur on this shift TRANSFERS: TOILET - SCORE: 0-UNK TRANSFERS: SHOWER: Activity did not occur on this shift TRANSFERS: SHOWER - SCORE: 0-UNK TRANSFERS: TUB: Activity did not occur on this shift TRANSFERS: TUB - SCORE: 0-UNK LOCOMOTION: WALK: Activity did not occur on this shift LOCOMOTION: WALK - SCORE: 0-UNK LOCOMOTION: WHEELCHAIR: Activity did not occur on this shift LOCOMOTION: WHEELCHAIR - SCORE: 0-UNK LOCOMOTION: STAIRS: Activity did not occur on this shift LOCOMOTION: STAIRS - SCORE: 0-UNK COMPREHENSION: COMPREHENSION - SCORE: 0-UNK EXPRESSION EXPRESSION - SCORE: 0-UNK SOCIAL INTERACTION: SOCIAL INTERACTION - SCORE: 0-UNK PROBLEM SOLVING: PROBLEM SOLVING - SCORE: 0-UNK MEMORY: MEMORY - SCORE: 0-UNK SIGNATURE PANEL: The following modified sections: Transfers: Bed, Chair, Wheelchair - Score, Transfers: Toilet - Score , Locomotion: Walk - Score, Locomotion: Wheelchair - Score, Locomotion: Stairs - Score were [electron [email or web address]] signed by Lorne Garcia PTA on ThuJul 23 2018 16:23:59 T-0500 (Central Daylight Time)
--- NOTE | 2018-07-23 16:31 | FAST ---
ENCOUNTER DATE AND TIME: 07/21/2018 08:00 (CDT) NAME PRICE ROGERS DATE OF : 1940 DATE OF ADMISSION: 07/05/2018 18:33 (CDT) PHONE: AGE: 78 SSN# [id number] GENDER: Male ENCOUNTER PHYSICIAN: Dr. Abdirahman Zepeda M.D. 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 EATING: Activity did not occur on this shift EATING - SCORE: 0-UNK GROOMING: Activity did not occur on this shift GROOMING - SCORE: 0-UNK BATHING: Activity did not occur on this shift BATHING - SCORE: 0-UNK DRESSING - UPPER BODY: Activity did not occur on this shift Patient is not dressing in public clothing ARTICLES SCORE Total number of steps: 0 DRESSING - UPPER BODY - SCORE: 0-UNK DRESSING - LOWER BODY: Activity did not occur on this shift Patient is not dressing in public clothing ARTICLES SCORE Total number of steps: 0 DRESSING - LOWER BODY - SCORE: 0-UNK TOILETING: Activity did not occur on this shift TOILETING - SCORE: 0-UNK BLADDER MANAGEMENT: Activity did not occur on this shift BLADDER MANAGEMENT - SCORE: 7-IND BOWEL MANAGEMENT: Activity did not occur on this shift BOWEL MANAGEMENT - SCORE: 7-IND TRANSFERS: BED, CHAIR, WHEELCHAIR: Activity did not occur on this shift TRANSFERS: BED, CHAIR, WHEELCHAIR - SCORE: 0-UNK TRANSFERS: TOILET: Activity did not occur on this shift TRANSFERS: TOILET - SCORE: 0-UNK TRANSFERS: SHOWER: Activity did not occur on this shift TRANSFERS: SHOWER - SCORE: 0-UNK TRANSFERS: TUB: Activity did not occur on this shift TRANSFERS: TUB - SCORE: 0-UNK LOCOMOTION: WALK: Activity did not occur on this shift LOCOMOTION: WALK - SCORE: 0-UNK LOCOMOTION: WHEELCHAIR: Activity did not occur on this shift LOCOMOTION: WHEELCHAIR - SCORE: 0-UNK LOCOMOTION: STAIRS: Activity did not occur on this shift LOCOMOTION: STAIRS - SCORE: 0-UNK COMPREHENSION: COMPREHENSION - SCORE: 0-UNK EXPRESSION EXPRESSION - SCORE: 0-UNK SOCIAL INTERACTION: SOCIAL INTERACTION - SCORE: 0-UNK PROBLEM SOLVING: PROBLEM SOLVING - SCORE: 0-UNK MEMORY: MEMORY - SCORE: 0-UNK SIGNATURE PANEL: The following modified sections: Transfers: Bed, Chair, Wheelchair - Score, Transfers: Toilet - Score , Locomotion: Walk - Score, Locomotion: Wheelchair - Score, Locomotion: Stairs - Score were [electron daphney] signed by Lorne Garcia PTA on ThuJul 23 2018 16:30:31 GMT-0500 (Central Daylight Time)
--- NOTE | 2018-07-23 16:38 | FAST ---
ENCOUNTER DATE AND TIME: 07/22/2018 08:00 (CDT) NAME PRICE ROGERS DATE OF : 1940 DATE OF ADMISSION: 07/05/2018 18:33 (CDT) PHONE: AGE: 78 SSN# [id number] GENDER: Male ENCOUNTER PHYSICIAN: Dr. Abdirahman Zepeda M.D. 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 EATING: Activity did not occur on this shift EATING - SCORE: 0-UNK GROOMING: Activity did not occur on this shift GROOMING - SCORE: 0-UNK BATHING: Activity did not occur on this shift BATHING - SCORE: 0-UNK DRESSING - UPPER BODY: Activity did not occur on this shift Patient is not dressing in public clothing ARTICLES SCORE Total number of steps: 0 DRESSING - UPPER BODY - SCORE: 0-UNK DRESSING - LOWER BODY: Activity did not occur on this shift Patient is not dressing in public clothing ARTICLES SCORE Total number of steps: 0 DRESSING - LOWER BODY - SCORE: 0-UNK TOILETING: Activity did not occur on this shift TOILETING - SCORE: 0-UNK BLADDER MANAGEMENT: Activity did not occur on this shift BLADDER MANAGEMENT - SCORE: 7-IND BOWEL MANAGEMENT: Activity did not occur on this shift BOWEL MANAGEMENT - SCORE: 7-IND TRANSFERS: BED, CHAIR, WHEELCHAIR: Activity did not occur on this shift TRANSFERS: BED, CHAIR, WHEELCHAIR - SCORE: 0-UNK TRANSFERS: TOILET: Activity did not occur on this shift TRANSFERS: TOILET - SCORE: 0-UNK TRANSFERS: SHOWER: Activity did not occur on this shift TRANSFERS: SHOWER - SCORE: 0-UNK TRANSFERS: TUB: Activity did not occur on this shift TRANSFERS: TUB - SCORE: 0-UNK LOCOMOTION: WALK: Activity did not occur on this shift LOCOMOTION: WALK - SCORE: 0-UNK LOCOMOTION: WHEELCHAIR: Activity did not occur on this shift LOCOMOTION: WHEELCHAIR - SCORE: 0-UNK LOCOMOTION: STAIRS: Activity did not occur on this shift LOCOMOTION: STAIRS - SCORE: 0-UNK COMPREHENSION: COMPREHENSION - SCORE: 0-UNK EXPRESSION EXPRESSION - SCORE: 0-UNK SOCIAL INTERACTION: SOCIAL INTERACTION - SCORE: 0-UNK PROBLEM SOLVING: PROBLEM SOLVING - SCORE: 0-UNK MEMORY: MEMORY - SCORE: 0-UNK SIGNATURE PANEL: The following modified sections: Transfers: Bed, Chair, Wheelchair - Score, Transfers: Toilet - Score , Locomotion: Walk - Score, Locomotion: Wheelchair - Score, Locomotion: Stairs - Score were [electron daphney] signed by Lorne Garcia PTA on ThuJul 23 2018 16:36:43 GMT-0500 (Central Daylight Time)
[2018-07-23] MEDS: TAMSULOSIN 0.4 MG SR CAP PO SCH (20:56)
[2018-07-23] MEDS: ATORVASTATIN 10 MG TAB PO SCH (20:56)
[2018-07-23] MEDS: DOCUSATE NA/SENNA CONC 1 TAB PO SCH (20:57)
[2018-07-23] MEDS: ALPRAZOLAM 1 MG TABLET PO SCH (21:00)
[2018-07-23] MEDS: MELATONIN 3 MG TABLET PO PRN (23:16)
--- NOTE | 2018-07-24 02:39 | FAST ---
SHIFT START DATE/TIME: 07/23/2018 19:00 (CDT) SHIFT END DATE/TIME: 07/24/2018 07:00 (CDT) NAME PRICE ROGERS DATE OF : 1940 DATE OF ADMISSION: 07/05/2018 18:33 (CDT) PHONE: AGE: 78 N# [id number] GENDER: Male ENCOUNTER PHYSICIAN: Dr. Abdirahman Zepeda M.D. 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 EATING: Activity did not occur on this shift EATING - SCORE: 0-UNK GROOMING: Activity did not occur on this shift GROOMING - SCORE: 0-UNK BATHING: Activity did not occur on this shift BATHING - SCORE: 0-UNK DRESSING - UPPER BODY: Patient is not dressing in public clothing ARTICLES SCORE Total number of steps: 0 DRESSING - UPPER BODY - SCORE: 0-UNK DRESSING - LOWER BODY: Patient is not dressing in public clothing ARTICLES SCORE Total number of steps: 0 DRESSING - LOWER BODY - SCORE: 0-UNK TOILETING: TOILETING - STEP 1: Does the patient require the assistance of a person or device, or need extra time with toileting? Yes . TOILETING - STEP 2: Does the patient require the assistance of a helper? Yes. TOILETING - STEP 3: How much assistance does the patient require from the helper? Hands-on assistance from the helper TOILETING - STEP 4: Of the 3 tasks: 1) Adjusting clothing prior to use, 2) Cleansing of perineal area, 3) Adjusting clot merissa after use; How many tasks does the patient perform WITHOUT assistance of the helper? No tasks; h raquel performs all three tasks TOILETING - SCORE: 1-DEP BLADDER MANAGEMENT: BLADDER MANAGEMENT - STEP 1: Does the patient control the bladder completely and intentionally without equipment or devices or med ications, and is always continent? No. BLADDER MANAGEMENT - STEP 2: Does the patient require the assistance of a helper? Yes. BLADDER MANAGEMENT - STEP 3: How much assistance does the patient require from the helper? Patient requires contact assistance fro m the helper BLADDER MANAGEMENT - STEP 4: How much contact assistance does the patient require from the helper? Patient requires moderate mary tance, and performs 50% to 75% of bladder management tasks - Crawley positions AND holds urinal or bed benítez BLADDER MANAGEMENT - SCORE: 3-MOD BOWEL MANAGEMENT: Activity did not occur on this shift BOWEL MANAGEMENT - SCORE: 7-IND TRANSFERS: BED, CHAIR, WHEELCHAIR: Activity did not occur on this shift TRANSFERS: BED, CHAIR, WHEELCHAIR - SCORE: 0-UNK TRANSFERS: TOILET: Activity did not occur on this shift TRANSFERS: TOILET - SCORE: 0-UNK TRANSFERS: SHOWER: Activity did not occur on this shift TRANSFERS: SHOWER - SCORE: 0-UNK TRANSFERS: TUB: Activity did not occur on this shift TRANSFERS: TUB - SCORE: 0-UNK LOCOMOTION: WALK: Activity did not occur on this shift LOCOMOTION: WALK - SCORE: 0-UNK LOCOMOTION: WHEELCHAIR: Activity did not occur on this shift LOCOMOTION: WHEELCHAIR - SCORE: 0-UNK COMPREHENSION: COMPREHENSION: TYPE: Both COMPREHENSION - STEP 1: Does the patient require help from a person or device, or need extra time to understand complex and a bstract ideas (such as current events, finances, discharge planning, medical issues, relationships, e tc)? No. COMPREHENSION - STEP 2: Does the patient need extra time, require an assistive device (such as glasses for visual comprehensi on or a hearing aid for auditory comprehension) or does s/he have mild difficulty understanding compl ex and abstract information? Yes. COMPREHENSION - SCORE: 6-SILVESTRE EXPRESSION EXPRESSION: TYPE: Both EXPRESSION - STEP 1: Does the patient require help from a person or device, or need extra time expressing complex and abst ract ideas (such as current events, finances, discharge planning, medical issues, relationships, etc) ? No. EXPRESSION - STEP 2: Does the patient need extra time, require an assistive device (such as augmentive communication syste m or a communication board), OR does s/he have mild difficulty expressing complex and abstract ideas (including mild dysarthria or mild word-find problems)? Yes. EXPRESSION - SCORE: 6-SILVESTRE SOCIAL INTERACTION: SOCIAL INTERACTION - STEP 1: Does the patient require a helper to interact with others in social and therapeutic situations? No. SOCIAL INTERACTION - STEP 2: Does the patient need extra time in social situations, OR does s/he interact with staff, other patien ts, and family members ONLY in structured environments, OR does s/he require medication for social in teraction? Yes, patient needs extra time SOCIAL INTERACTION - SCORE: 6-SILVESTRE PROBLEM SOLVING: PROBLEM SOLVING - STEP 1: Does the patient need help from a person or device, or need extra time to solve complex problems such as managing a checking account or confronting interpersonal problems? Yes. PROBLEM SOLVING - STEP 2: Does the patient solve basic routine problems half or more of the time? Yes. PROBLEM SOLVING - STEP 3: How often does the patient need help to solve basic routine problems? 10%-24% of the time PROBLEM SOLVING - SCORE: 4-MIN MEMORY: MEMORY - STEP 1: Does the patient need help from a person or device, or need extra time to remember frequently encount ered people, daily routines, and executing requests? No. MEMORY - STEP 2: Does the patient have slight difficulty recognizing frequently encountered people, daily routines, or executing requests without the need for repetition or using self-initiated or environmental cues to remember? Yes. MEMORY - SCORE: 6-SILVESTRE
[2018-07-24] MEDS: CRANBERRY FRUIT EXTRACT 200 MG CAP PO SCH ×2 (07:26→20:53)
[2018-07-24] MEDS: CITALOPRAM 10 MG TABLET PO SCH (07:26)
[2018-07-24] MEDS: FUROSEMIDE 20 MG TABLET PO SCH (07:26)
[2018-07-24] MEDS: LISINOPRIL 5 MG TAB PO SCH (07:27)
[2018-07-24] MEDS: GABAPENTIN 300 MG CAP PO SCH ×3 (07:27→20:53)
[2018-07-24] MEDS: VITAMIN D 5,000 UNIT CAP PO SCH (07:27)
[2018-07-24] MEDS: CYANOCOBALAMIN 1,000 MCG TAB PO SCH (07:28)
[2018-07-24] MEDS: APIXABAN 2.5 MG TABLET PO SCH ×2 (07:28→20:53)
[2018-07-24] MEDS: FLECAINIDE 100 MG TAB PO SCH ×2 (07:28→20:53)
[2018-07-24] MEDS: MAGNESIUM OXIDE 400 MG TAB PO SCH ×2 (07:28→20:53)
[2018-07-24] MEDS: LIDOCAINE 5% PATCH TOP SCH (07:29)
[2018-07-24] MEDS: ONDANSETRON 4 MG (ODT) TAB PO PRN ×2 (07:29→16:54)
[2018-07-24] MEDS: ACETAMINOPHEN 500 MG TAB PO PRN (07:29)
[2018-07-24 10:41] LABS: Potassium 4.8 mmol/L (3.5-5.1)
[2018-07-24] MEDS: VALSARTAN 80 MG TAB PO SCH (12:29)
--- NOTE | 2018-07-24 14:26 | FAST ---
SHIFT START DATE/TIME: 07/24/2018 07:00 (CDT) SHIFT END DATE/TIME: 07/24/2018 19:00 (CDT) NAME PRICE ROGERS DATE OF : 1940 DATE OF ADMISSION: 07/05/2018 18:33 (CDT) PHONE: AGE: 78 N# [id number] GENDER: Male ENCOUNTER PHYSICIAN: Dr. Abdirahman Zepeda M.D. 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 EATING: EATING - STEP 1: Does the patient require the assistance of a person or device, or need extra time when eating? Yes. EATING - STEP 2: Does the patient require the assistance of a helper? Yes. EATING - STEP 3: Does the patient perform half or more of the eating tasks? Yes. EATING - STEP 4: Does the patient need only supervision, cuing, coaxing OR help to apply an orthosis OR help to cut fo od, open containers, pour liquids, or butter bread? Yes. EATING - SCORE: 5-SUP GROOMING: Comb/brush hair Oral care Wash, rinse, and dry face Wash, rinse, and dry hands GROOMING - STEP 1: Does the patient require the assistance of a person or device, or need extra time when grooming? Yes. GROOMING - STEP 2: Does the patient require the assistance of a helper? Yes. GROOMING - STEP 3: How much assistance does the patient require from the helper? Only prior equipment preparation/set up from the helper GROOMING - SCORE: 5-SUP BATHING: Activity did not occur on this shift BATHING - SCORE: 0-UNK DRESSING - UPPER BODY: Activity did not occur on this shift ARTICLES SCORE Total number of steps: 0 DRESSING - UPPER BODY - SCORE: 0-UNK DRESSING - LOWER BODY: Activity did not occur on this shift ARTICLES SCORE Total number of steps: 0 DRESSING - LOWER BODY - SCORE: 0-UNK TOILETING: TOILETING - STEP 1: Does the patient require the assistance of a person or device, or need extra time with toileting? Yes . TOILETING - STEP 2: Does the patient require the assistance of a helper? Yes. TOILETING - STEP 3: How much assistance does the patient require from the helper? Hands-on assistance from the helper TOILETING - STEP 4: Of the 3 tasks: 1) Adjusting clothing prior to use, 2) Cleansing of perineal area, 3) Adjusting clot merissa after use; How many tasks does the patient perform WITHOUT assistance of the helper? One task TOILETING - SCORE: 2-MAX BLADDER MANAGEMENT: Shirley removes incontinent device (Depends, pull ups, etc.); cleans the patient after accident / inco ntinent episode; and, applies new incontinent device. BLADDER MANAGEMENT - SCORE: 1-DEP BLADDER MANAGEMENT - FREQUENCY OF ACCIDENTS: BLADDER MANAGEMENT(FA) - STEP 1: How many accidents has the patient had during the current shift? 3 BOWEL MANAGEMENT: BOWEL MANAGEMENT - STEP 1: Does the patient control bowels completely and intentionally without equipment devices or medications AND is always continent? No. BOWEL MANAGEMENT - STEP 2: Does the patient require the assistance of a helper? Yes. BOWEL MANAGEMENT - STEP 3: How much assistance does the patient require from the helper? Patient requires maximal assistance - p erforms 25% to 49 % of bowel management tasks BOWEL MANAGEMENT - SCORE: 2-MAX BOWEL MANAGEMENT - COMMENTS: Shirley uses machine to lift- transport- position pt on toilet- helper uses machine to lift pt - provi de hygiene care- position clothes and position pt into w/c BOWEL MANAGEMENT - FREQUENCY OF ACCIDENTS: BOWEL MANAGEMENT(FA) - STEP 1: How many accidents has the patient had during the current shift? 0 TRANSFERS: BED, CHAIR, WHEELCHAIR: Patient requires more than one helper and/or the use of a mechanical lift is utilized TRANSFERS: BED, CHAIR, WHEELCHAIR - SCORE: 1-DEP TRANSFERS: TOILET: Patient requires more than one helper and/or the use of a mechanical lift is utilized TRANSFERS: TOILET - SCORE: 1-DEP TRANSFERS: SHOWER: Activity did not occur on this shift TRANSFERS: SHOWER - SCORE: 0-UNK TRANSFERS: TUB: Activity did not occur on this shift TRANSFERS: TUB - SCORE: 0-UNK LOCOMOTION: WALK: Activity did not occur on this shift LOCOMOTION: WALK - SCORE: 0-UNK LOCOMOTION: WHEELCHAIR: Activity did not occur on this shift LOCOMOTION: WHEELCHAIR - SCORE: 0-UNK COMPREHENSION: COMPREHENSION: TYPE: Both COMPREHENSION - STEP 1: Does the patient require help from a person or device, or need extra time to understand complex and a bstract ideas (such as current events, finances, discharge planning, medical issues, relationships, e tc)? Yes. COMPREHENSION - STEP 2: Does the patient require help to understand questions or statements about basic needs or ideas (such as hunger, thirst, sleep, safety, daily schedule, room location, or discomfort) half or more of the t aneudy? No. COMPREHENSION - STEP 3: How often does the patient need help to understand directions and conversation about basic needs? Les s than 10% of the time COMPREHENSION - SCORE: 5-SUP EXPRESSION EXPRESSION: TYPE: Both EXPRESSION - STEP 1: Does the patient require help from a person or device, or need extra time expressing complex and abst ract ideas (such as current events, finances, discharge planning, medical issues, relationships, etc) ? Yes. EXPRESSION - STEP 2: Does the patient require help to express basic necessities or ideas (such as hunger, thirst, sleep, s afety, daily schedule, room location, or discomfort) half or more of the time? No. EXPRESSION - STEP 3: How often does the patient need help to express directions and conversation about basic needs? Less t smiley 10% of the time EXPRESSION - SCORE: 5-SUP SOCIAL INTERACTION: SOCIAL INTERACTION - STEP 1: Does the patient require a helper to interact with others in social and therapeutic situations? No. SOCIAL INTERACTION - STEP 2: Does the patient need extra time in social situations, OR does s/he interact with staff, other patien ts, and family members ONLY in structured environments, OR does s/he require medication for social in teraction? Yes, patient needs extra time SOCIAL INTERACTION - SCORE: 6-SILVESTRE PROBLEM SOLVING: PROBLEM SOLVING - STEP 1: Does the patient need help from a person or device, or need extra time to solve complex problems such as managing a checking account or confronting interpersonal problems? Yes. PROBLEM SOLVING - STEP 2: Does the patient solve basic routine problems half or more of the time? Yes. PROBLEM SOLVING - STEP 3: How often does the patient need help to solve basic routine problems? Less than 10% of the time PROBLEM SOLVING - SCORE: 5-SUP MEMORY: MEMORY - STEP 1: Does the patient need help from a person or device, or need extra time to remember frequently encount ered people, daily routines, and executing requests? Yes. MEMORY - STEP 2: How often does the patient need help to remember frequently encountered people, daily routines, and e xecuting requests? 10% - 24% of the time MEMORY - SCORE: 4-MIN SIGNATURE PANEL: The following modified sections: Eating - Score, Grooming - Score, Bathing - Score, Dressing - Upper Body - Score, Dressing - Lower Body - Score, Toileting - Score, Bladder Management - Score, Bowel Man agement - Score, Bowel Management - Comments:, Transfers: Bed, Chair, Wheelchair - Score, Transfers: Toilet - Score, Transfers: Shower - Score, Transfers: Tub - Score, Locomotion: Walk - Score, Locomoti on: Wheelchair - Score, Social Interaction - Score, Problem Solving - Score, Memory - Score, Comprehe nsion - Score, Expression - Score were [electronically] signed by Penelope Medrano C.N.A. on Sat Jul 24 2018 14:26:02 [id number] (Central Daylight Time)
[2018-07-24] MEDS: DOCUSATE NA/SENNA CONC 1 TAB PO SCH (20:53)
[2018-07-24] MEDS: ATORVASTATIN 10 MG TAB PO SCH (20:53)
[2018-07-24] MEDS: TAMSULOSIN 0.4 MG SR CAP PO SCH (20:53)
[2018-07-24] MEDS: POLYVINYL ALCOHOL 1.4% 15 ML EACH EYE PRN (20:54)
[2018-07-24] MEDS: NYSTATIN PWDR 100000 UNIT/GM TOP SCH (20:54)
[2018-07-24] MEDS: HYDROCODONE/APAP 5/325 MG TAB PO PRN (21:09)
[2018-07-24] MEDS: MELATONIN 3 MG TABLET PO PRN (21:09)
--- NOTE | 2018-07-25 02:33 | FAST ---
SHIFT START DATE/TIME: 07/24/2018 19:00 (CDT) SHIFT END DATE/TIME: 07/25/2018 07:00 (CDT) NAME PRICE ROGERS DATE OF : 1940 DATE OF ADMISSION: 07/05/2018 18:33 (CDT) PHONE: AGE: 78 N# [id number] GENDER: Male ENCOUNTER PHYSICIAN: Dr. Abdirahman Zepeda M.D. 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 EATING: Activity did not occur on this shift EATING - SCORE: 0-UNK GROOMING: Activity did not occur on this shift GROOMING - SCORE: 0-UNK BATHING: Activity did not occur on this shift BATHING - SCORE: 0-UNK DRESSING - UPPER BODY: Patient is not dressing in public clothing ARTICLES SCORE Total number of steps: 0 DRESSING - UPPER BODY - SCORE: 0-UNK DRESSING - LOWER BODY: Patient is not dressing in public clothing ARTICLES SCORE Total number of steps: 0 DRESSING - LOWER BODY - SCORE: 0-UNK TOILETING: TOILETING - STEP 1: Does the patient require the assistance of a person or device, or need extra time with toileting? Yes . TOILETING - STEP 2: Does the patient require the assistance of a helper? Yes. TOILETING - STEP 3: How much assistance does the patient require from the helper? Hands-on assistance from the helper TOILETING - STEP 4: Of the 3 tasks: 1) Adjusting clothing prior to use, 2) Cleansing of perineal area, 3) Adjusting clot merissa after use; How many tasks does the patient perform WITHOUT assistance of the helper? No tasks; h raquel performs all three tasks TOILETING - SCORE: 1-DEP BLADDER MANAGEMENT: BLADDER MANAGEMENT - STEP 1: Does the patient control the bladder completely and intentionally without equipment or devices or med ications, and is always continent? No. BLADDER MANAGEMENT - STEP 2: Does the patient require the assistance of a helper? Yes. BLADDER MANAGEMENT - STEP 3: How much assistance does the patient require from the helper? Patient requires contact assistance fro m the helper BLADDER MANAGEMENT - STEP 4: How much contact assistance does the patient require from the helper? Patient requires moderate mary tance, and performs 50% to 75% of bladder management tasks - [place] positions AND holds urinal or bed benítez BLADDER MANAGEMENT - SCORE: 3-MOD BLADDER MANAGEMENT - FREQUENCY OF ACCIDENTS: BLADDER MANAGEMENT(FA) - STEP 1: How many accidents has the patient had during the current shift? 2 BOWEL MANAGEMENT: Activity did not occur on this shift BOWEL MANAGEMENT - SCORE: 7-IND TRANSFERS: BED, CHAIR, WHEELCHAIR: Activity did not occur on this shift TRANSFERS: BED, CHAIR, WHEELCHAIR - SCORE: 0-UNK TRANSFERS: TOILET: Activity did not occur on this shift TRANSFERS: TOILET - SCORE: 0-UNK TRANSFERS: SHOWER: Activity did not occur on this shift TRANSFERS: SHOWER - SCORE: 0-UNK TRANSFERS: TUB: Activity did not occur on this shift TRANSFERS: TUB - SCORE: 0-UNK LOCOMOTION: WALK: Activity did not occur on this shift LOCOMOTION: WALK - SCORE: 0-UNK LOCOMOTION: WHEELCHAIR: Activity did not occur on this shift LOCOMOTION: WHEELCHAIR - SCORE: 0-UNK COMPREHENSION: COMPREHENSION: TYPE: Both COMPREHENSION - STEP 1: Does the patient require help from a person or device, or need extra time to understand complex and a bstract ideas (such as current events, finances, discharge planning, medical issues, relationships, e tc)? No. COMPREHENSION - STEP 2: Does the patient need extra time, require an assistive device (such as glasses for visual comprehensi on or a hearing aid for auditory comprehension) or does s/he have mild difficulty understanding compl ex and abstract information? Yes. COMPREHENSION - SCORE: 6-SILVESTRE EXPRESSION EXPRESSION: TYPE: Both EXPRESSION - STEP 1: Does the patient require help from a person or device, or need extra time expressing complex and abst ract ideas (such as current events, finances, discharge planning, medical issues, relationships, etc) ? No. EXPRESSION - STEP 2: Does the patient need extra time, require an assistive device (such as augmentive communication syste m or a communication board), OR does s/he have mild difficulty expressing complex and abstract ideas (including mild dysarthria or mild word-find problems)? Yes. EXPRESSION - SCORE: 6-SILVESTRE SOCIAL INTERACTION: SOCIAL INTERACTION - STEP 1: Does the patient require a helper to interact with others in social and therapeutic situations? No. SOCIAL INTERACTION - STEP 2: Does the patient need extra time in social situations, OR does s/he interact with staff, other patien ts, and family members ONLY in structured environments, OR does s/he require medication for social in teraction? Yes, patient needs extra time SOCIAL INTERACTION - SCORE: 6-SILVESTRE PROBLEM SOLVING: PROBLEM SOLVING - STEP 1: Does the patient need help from a person or device, or need extra time to solve complex problems such as managing a checking account or confronting interpersonal problems? Yes. PROBLEM SOLVING - STEP 2: Does the patient solve basic routine problems half or more of the time? Yes. PROBLEM SOLVING - STEP 3: How often does the patient need help to solve basic routine problems? Less than 10% of the time PROBLEM SOLVING - SCORE: 5-SUP MEMORY: MEMORY - STEP 1: Does the patient need help from a person or device, or need extra time to remember frequently encount ered people, daily routines, and executing requests? No. MEMORY - STEP 2: Does the patient have slight difficulty recognizing frequently encountered people, daily routines, or executing requests without the need for repetition or using self-initiated or environmental cues to remember? Yes. MEMORY - SCORE: 6-SILVESTRE
[2018-07-25] MEDS: CITALOPRAM 10 MG TABLET PO SCH (09:40)
[2018-07-25] MEDS: LIDOCAINE 5% PATCH TOP SCH (09:40)
[2018-07-25] MEDS: VITAMIN D 5,000 UNIT CAP PO SCH (09:41)
[2018-07-25] MEDS: FLECAINIDE 100 MG TAB PO SCH ×2 (09:41→20:20)
[2018-07-25] MEDS: CRANBERRY FRUIT EXTRACT 200 MG CAP PO SCH ×2 (09:41→20:20)
[2018-07-25] MEDS: MAGNESIUM OXIDE 400 MG TAB PO SCH ×2 (09:41→20:20)
[2018-07-25] MEDS: FUROSEMIDE 20 MG TABLET PO SCH (09:42)
[2018-07-25] MEDS: GABAPENTIN 300 MG CAP PO SCH ×3 (09:43→20:20)
[2018-07-25] MEDS: LISINOPRIL 5 MG TAB PO SCH (09:43)
[2018-07-25] MEDS: CYANOCOBALAMIN 1,000 MCG TAB PO SCH (09:43)
[2018-07-25] MEDS: APIXABAN 2.5 MG TABLET PO SCH ×2 (09:44→20:20)
[2018-07-25] MEDS: NYSTATIN PWDR 100000 UNIT/GM TOP SCH ×2 (09:44→20:20)
[2018-07-25] MEDS: VALSARTAN 80 MG TAB PO SCH (13:37)
[2018-07-25] MEDS: HYDROCORTISONE 1 % CREAM 30GM TOP PRN (14:17)
--- NOTE | 2018-07-25 14:51 | FAST ---
SHIFT START DATE/TIME: 07/25/2018 07:00 (CDT) SHIFT END DATE/TIME: 07/25/2018 19:00 (CDT) NAME PRICE ROGERS DATE OF : 1940 DATE OF ADMISSION: 07/05/2018 18:33 (CDT) PHONE: AGE: 78 N# [id number] GENDER: Male ENCOUNTER PHYSICIAN: Dr. Abdirahman Zepeda M.D. 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 EATING: EATING - STEP 1: Does the patient require the assistance of a person or device, or need extra time when eating? Yes. EATING - STEP 2: Does the patient require the assistance of a helper? Yes. EATING - STEP 3: Does the patient perform half or more of the eating tasks? Yes. EATING - STEP 4: Does the patient need only supervision, cuing, coaxing OR help to apply an orthosis OR help to cut fo od, open containers, pour liquids, or butter bread? Yes. EATING - SCORE: 5-SUP GROOMING: Activity did not occur on this shift GROOMING - SCORE: 0-UNK BATHING: Activity did not occur on this shift BATHING - SCORE: 0-UNK DRESSING - UPPER BODY: Activity did not occur on this shift ARTICLES SCORE Total number of steps: 0 DRESSING - UPPER BODY - SCORE: 0-UNK DRESSING - LOWER BODY: Activity did not occur on this shift ARTICLES SCORE Total number of steps: 0 DRESSING - LOWER BODY - SCORE: 0-UNK TOILETING: TOILETING - STEP 1: Does the patient require the assistance of a person or device, or need extra time with toileting? Yes . TOILETING - STEP 2: Does the patient require the assistance of a helper? Yes. TOILETING - STEP 3: How much assistance does the patient require from the helper? Hands-on assistance from the helper TOILETING - STEP 4: Of the 3 tasks: 1) Adjusting clothing prior to use, 2) Cleansing of perineal area, 3) Adjusting clot merissa after use; How many tasks does the patient perform WITHOUT assistance of the helper? One task TOILETING - SCORE: 2-MAX BLADDER MANAGEMENT: BLADDER MANAGEMENT - STEP 1: Does the patient control the bladder completely and intentionally without equipment or devices or med ications, and is always continent? No. BLADDER MANAGEMENT - STEP 2: Does the patient require the assistance of a helper? Yes. BLADDER MANAGEMENT - STEP 3: How much assistance does the patient require from the helper? Patient requires contact assistance fro m the helper BLADDER MANAGEMENT - STEP 4: How much contact assistance does the patient require from the helper? Patient requires maximal assist ance, and only performs 25% to 49% of bladder management tasks BLADDER MANAGEMENT - SCORE: 2-MAX BLADDER MANAGEMENT - FREQUENCY OF ACCIDENTS: BLADDER MANAGEMENT(FA) - STEP 1: How many accidents has the patient had during the current shift? 2 BOWEL MANAGEMENT: [place] removes incontinent device (depends, pull ups, etc.); cleans the patient after accident / inco ntinent episode; and, applies new device (depends, pull-ups, padding, etc.). BOWEL MANAGEMENT - SCORE: 1-DEP BOWEL MANAGEMENT - FREQUENCY OF ACCIDENTS: BOWEL MANAGEMENT(FA) - STEP 1: How many accidents has the patient had during the current shift? 2 TRANSFERS: BED, CHAIR, WHEELCHAIR: Patient requires more than one helper and/or the use of a mechanical lift is utilized TRANSFERS: BED, CHAIR, WHEELCHAIR - SCORE: 1-DEP TRANSFERS: TOILET: Patient requires more than one helper and/or the use of a mechanical lift is utilized TRANSFERS: TOILET - SCORE: 1-DEP TRANSFERS: SHOWER: Activity did not occur on this shift TRANSFERS: SHOWER - SCORE: 0-UNK TRANSFERS: TUB: Activity did not occur on this shift TRANSFERS: TUB - SCORE: 0-UNK LOCOMOTION: WALK: Activity did not occur on this shift LOCOMOTION: WALK - SCORE: 0-UNK LOCOMOTION: WHEELCHAIR: Activity did not occur on this shift LOCOMOTION: WHEELCHAIR - SCORE: 0-UNK COMPREHENSION: COMPREHENSION: TYPE: Both COMPREHENSION - STEP 1: Does the patient require help from a person or device, or need extra time to understand complex and a bstract ideas (such as current events, finances, discharge planning, medical issues, relationships, e tc)? Yes. COMPREHENSION - STEP 2: Does the patient require help to understand questions or statements about basic needs or ideas (such as hunger, thirst, sleep, safety, daily schedule, room location, or discomfort) half or more of the t aneudy? No. COMPREHENSION - STEP 3: How often does the patient need help to understand directions and conversation about basic needs? Les s than 10% of the time COMPREHENSION - SCORE: 5-SUP EXPRESSION EXPRESSION: TYPE: Both EXPRESSION - STEP 1: Does the patient require help from a person or device, or need extra time expressing complex and abst ract ideas (such as current events, finances, discharge planning, medical issues, relationships, etc) ? Yes. EXPRESSION - STEP 2: Does the patient require help to express basic necessities or ideas (such as hunger, thirst, sleep, s afety, daily schedule, room location, or discomfort) half or more of the time? No. EXPRESSION - STEP 3: How often does the patient need help to express directions and conversation about basic needs? Less t smiley 10% of the time EXPRESSION - SCORE: 5-SUP SOCIAL INTERACTION: SOCIAL INTERACTION - STEP 1: Does the patient require a helper to interact with others in social and therapeutic situations? No. SOCIAL INTERACTION - STEP 2: Does the patient need extra time in social situations, OR does s/he interact with staff, other patien ts, and family members ONLY in structured environments, OR does s/he require medication for social in teraction? Yes, patient needs extra time SOCIAL INTERACTION - SCORE: 6-SILVESTRE PROBLEM SOLVING: PROBLEM SOLVING - STEP 1: Does the patient need help from a person or device, or need extra time to solve complex problems such as managing a checking account or confronting interpersonal problems? Yes. PROBLEM SOLVING - STEP 2: Does the patient solve basic routine problems half or more of the time? Yes. PROBLEM SOLVING - STEP 3: How often does the patient need help to solve basic routine problems? Less than 10% of the time PROBLEM SOLVING - SCORE: 5-SUP MEMORY: MEMORY - STEP 1: Does the patient need help from a person or device, or need extra time to remember frequently encount ered people, daily routines, and executing requests? Yes. MEMORY - STEP 2: How often does the patient need help to remember frequently encountered people, daily routines, and e xecuting requests? Less than 10% of the time MEMORY - SCORE: 5-SUP SIGNATURE PANEL: The following modified sections: Eating - Score, Grooming - Score, Bathing - Score, Dressing - Upper Body - Score, Dressing - Lower Body - Score, Toileting - Score, Bladder Management - Score, Bowel Man agement - Score, Transfers: Bed, Chair, Wheelchair - Score, Transfers: Toilet - Score, Transfers: Melissa wer - Score, Transfers: Tub - Score, Locomotion: Walk - Score, Locomotion: Wheelchair - Score, Compre hension - Score, Expression - Score, Social Interaction - Score, Problem Solving - Score, Memory - Sc ore were [electronically] signed by Penelope Medrano C.N.A. on ThuJul 25 2018 14:50:37 T-0500 ([place])
[2018-07-25] MEDS: DOCUSATE NA/SENNA CONC 1 TAB PO SCH (20:20)
[2018-07-25] MEDS: TAMSULOSIN 0.4 MG SR CAP PO SCH (20:20)
[2018-07-25] MEDS: ATORVASTATIN 10 MG TAB PO SCH (20:20)
[2018-07-25] MEDS: ALPRAZOLAM 1 MG TABLET PO PRN (20:21)
[2018-07-25] MEDS: POLYVINYL ALCOHOL 1.4% 15 ML EACH EYE PRN (20:21)
--- NOTE | 2018-07-26 00:36 | FAST ---
SHIFT START DATE/TIME: 07/25/2018 19:00 (CDT) SHIFT END DATE/TIME: 07/26/2018 07:00 (CDT) NAME PRICE ROGERS DATE OF : 1940 DATE OF ADMISSION: 07/05/2018 18:33 (CDT) PHONE: AGE: 78 SSN# [id number] GENDER: Male ENCOUNTER PHYSICIAN: Dr. Abdirahman Zepeda M.D. 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 EATING: Activity did not occur on this shift EATING - SCORE: 0-UNK GROOMING: Activity did not occur on this shift GROOMING - SCORE: 0-UNK BATHING: Activity did not occur on this shift BATHING - SCORE: 0-UNK DRESSING - UPPER BODY: Patient is not dressing in public clothing ARTICLES SCORE Total number of steps: 0 DRESSING - UPPER BODY - SCORE: 0-UNK DRESSING - LOWER BODY: Patient is not dressing in public clothing ARTICLES SCORE Total number of steps: 0 DRESSING - LOWER BODY - SCORE: 0-UNK TOILETING: Activity did not occur on this shift TOILETING - SCORE: 0-UNK BLADDER MANAGEMENT: [place] removes incontinent device (Depends, pull ups, etc.); cleans the patient after accident / inco ntinent episode; and, applies new incontinent device. BLADDER MANAGEMENT - SCORE: 1-DEP BOWEL MANAGEMENT: Activity did not occur on this shift BOWEL MANAGEMENT - SCORE: 7-IND TRANSFERS: BED, CHAIR, WHEELCHAIR: Patient requires more than one helper and/or the use of a mechanical lift is utilized TRANSFERS: BED, CHAIR, WHEELCHAIR - SCORE: 1-DEP TRANSFERS: TOILET: Patient requires more than one helper and/or the use of a mechanical lift is utilized TRANSFERS: TOILET - SCORE: 1-DEP TRANSFERS: SHOWER: Activity did not occur on this shift TRANSFERS: SHOWER - SCORE: 0-UNK TRANSFERS: TUB: Activity did not occur on this shift TRANSFERS: TUB - SCORE: 0-UNK LOCOMOTION: WALK: Activity did not occur on this shift LOCOMOTION: WALK - SCORE: 0-UNK LOCOMOTION: WHEELCHAIR: Activity did not occur on this shift LOCOMOTION: WHEELCHAIR - SCORE: 0-UNK COMPREHENSION: COMPREHENSION: TYPE: Both COMPREHENSION - STEP 1: Does the patient require help from a person or device, or need extra time to understand complex and a bstract ideas (such as current events, finances, discharge planning, medical issues, relationships, e tc)? No. COMPREHENSION - STEP 2: Does the patient need extra time, require an assistive device (such as glasses for visual comprehensi on or a hearing aid for auditory comprehension) or does s/he have mild difficulty understanding compl ex and abstract information? Yes. COMPREHENSION - SCORE: 6-SILVESTRE EXPRESSION EXPRESSION: TYPE: Both EXPRESSION - STEP 1: Does the patient require help from a person or device, or need extra time expressing complex and abst ract ideas (such as current events, finances, discharge planning, medical issues, relationships, etc) ? No. EXPRESSION - STEP 2: Does the patient need extra time, require an assistive device (such as augmentive communication syste m or a communication board), OR does s/he have mild difficulty expressing complex and abstract ideas (including mild dysarthria or mild word-find problems)? No. EXPRESSION - SCORE: 7-IND SOCIAL INTERACTION: SOCIAL INTERACTION - STEP 1: Does the patient require a helper to interact with others in social and therapeutic situations? No. SOCIAL INTERACTION - STEP 2: Does the patient need extra time in social situations, OR does s/he interact with staff, other patien ts, and family members ONLY in structured environments, OR does s/he require medication for social in teraction? Yes, patient requires medication for social interaction SOCIAL INTERACTION - SCORE: 6-SILVESTRE PROBLEM SOLVING: PROBLEM SOLVING - STEP 1: Does the patient need help from a person or device, or need extra time to solve complex problems such as managing a checking account or confronting interpersonal problems? No. PROBLEM SOLVING - STEP 2: Does the patient require extra time to make decisions or solve problems, OR does s/he have slight dif ficulty reading, initiating, or self-correcting in unfamiliar situations? No. PROBLEM SOLVING - SCORE: 7-IND MEMORY: MEMORY - STEP 1: Does the patient need help from a person or device, or need extra time to remember frequently encount ered people, daily routines, and executing requests? No. MEMORY - STEP 2: Does the patient have slight difficulty recognizing frequently encountered people, daily routines, or executing requests without the need for repetition or using self-initiated or environmental cues to remember? No. MEMORY - SCORE: 7-IND SIGNATURE PANEL: The following modified sections: Eating - Score, Grooming - Score, Bathing - Score, Dressing - Upper Body - Score, Dressing - Lower Body - Score, Toileting - Score, Bladder Management - Score, Bowel Man agement - Score, Transfers: Bed, Chair, Wheelchair - Score, Transfers: Toilet - Score, Transfers: Melissa wer - Score, Transfers: Tub - Score, Locomotion: Walk - Score, Locomotion: Wheelchair - Score, Compre hension - Score, Expression - Score, Social Interaction - Score, Problem Solving - Score, Memory - Sc ore were [electronically] signed by Michelle Sanders CNA on ThuJul 26 2018 00:34:47 T-0500 ([place] Da ylight Time)
[2018-07-26] MEDS: CRANBERRY FRUIT EXTRACT 200 MG CAP PO SCH ×2 (08:25→20:54)
[2018-07-26] MEDS: MAGNESIUM OXIDE 400 MG TAB PO SCH ×2 (08:25→20:54)
[2018-07-26] MEDS: VITAMIN D 5,000 UNIT CAP PO SCH (08:25)
[2018-07-26] MEDS: FUROSEMIDE 20 MG TABLET PO SCH (08:26)
[2018-07-26] MEDS: CYANOCOBALAMIN 1,000 MCG TAB PO SCH (08:26)
[2018-07-26] MEDS: APIXABAN 2.5 MG TABLET PO SCH ×2 (08:26→20:54)
[2018-07-26] MEDS: LISINOPRIL 5 MG TAB PO SCH (08:26)
[2018-07-26] MEDS: GABAPENTIN 300 MG CAP PO SCH ×3 (08:26→20:54)
[2018-07-26] MEDS: FLECAINIDE 100 MG TAB PO SCH ×2 (08:26→20:55)
[2018-07-26] MEDS: LIDOCAINE 5% PATCH TOP SCH (08:27)
[2018-07-26] MEDS: CITALOPRAM 10 MG TABLET PO SCH (08:27)
[2018-07-26] MEDS: ACETAMINOPHEN 500 MG TAB PO PRN (08:30)
[2018-07-26] MEDS: NYSTATIN PWDR 100000 UNIT/GM TOP SCH ×2 (09:00→20:56)
--- NOTE | 2018-07-26 11:16 | FAST ---
SHIFT START DATE/TIME: 07/26/2018 07:00 (CDT) SHIFT END DATE/TIME: 07/26/2018 19:00 (CDT) NAME PRICE ROGERS DATE OF : 1940 DATE OF ADMISSION: 07/05/2018 18:33 (CDT) PHONE: AGE: 78 N# [id number] GENDER: Male ENCOUNTER PHYSICIAN: Dr. Abdirahman Zepeda M.D. 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 EATING: EATING - STEP 1: Does the patient require the assistance of a person or device, or need extra time when eating? Yes. EATING - STEP 2: Does the patient require the assistance of a helper? No, patient only requires an assistive device, O R s/he takes more than reasonable time to eat, OR there is a safety concern, OR s/he requires modifie d food consistency EATING - SCORE: 6-SILVESTRE GROOMING: Comb/brush hair Oral care Wash, rinse, and dry face Wash, rinse, and dry hands GROOMING - STEP 1: Does the patient require the assistance of a person or device, or need extra time when grooming? Yes. GROOMING - STEP 2: Does the patient require the assistance of a helper? Yes. GROOMING - STEP 3: How much assistance does the patient require from the helper? Only prior equipment preparation/set up from the helper GROOMING - SCORE: 5-SUP BATHING: Activity did not occur on this shift BATHING - SCORE: 0-UNK DRESSING - UPPER BODY: T-shirt/pullover shirt (four steps) ARTICLES SCORE Total number of steps: 4 DRESSING - UPPER BODY - STEP 1: Does the patient require help from a person or device, or need extra time when dressing above the [address]? Yes. DRESSING - UPPER BODY - STEP 2: Does the patient require the assistance of a helper? Yes. DRESSING - UPPER BODY - STEP 3: Does the helper touch the patient while dressing? Yes. DRESSING - UPPER BODY - STEP 4: How many of the total steps does the patient complete on his/her own? 2 DRESSING - UPPER BODY - SCORE: 3-MOD DRESSING - LOWER BODY: Elastic waist pants (three steps) Slip-on shoe - Left foot (one step) Slip-on shoe - Right foot (one step) Sock - Left foot (one step) Sock - Right foot (one step) Underwear (three steps) ARTICLES SCORE Total number of steps: 10 DRESSING - LOWER BODY - STEP 1: Does the patient require help from a person or device, or need extra time when dressing below the [address]? Yes. DRESSING - LOWER BODY - STEP 2: Does the patient require the assistance of a helper? Yes. DRESSING - LOWER BODY - STEP 3: Does the helper touch the patient while dressing? Yes. DRESSING - LOWER BODY - STEP 4: How many of the total steps does the patient complete on his/her own? 0 DRESSING - LOWER BODY - STEP 5: Does patient require total assistance for dressing below the waist such as the helper holding clothin g and performing basically all the activities? Yes. DRESSING - LOWER BODY - SCORE: 1-DEP TOILETING: TOILETING - STEP 1: Does the patient require the assistance of a person or device, or need extra time with toileting? Yes . TOILETING - STEP 2: Does the patient require the assistance of a helper? Yes. TOILETING - STEP 3: How much assistance does the patient require from the helper? Hands-on assistance from the helper TOILETING - STEP 4: Of the 3 tasks: 1) Adjusting clothing prior to use, 2) Cleansing of perineal area, 3) Adjusting clot merissa after use; How many tasks does the patient perform WITHOUT assistance of the helper? One task TOILETING - SCORE: 2-MAX BLADDER MANAGEMENT: BLADDER MANAGEMENT - STEP 1: Does the patient control the bladder completely and intentionally without equipment or devices or med ications, and is always continent? No. BLADDER MANAGEMENT - STEP 2: Does the patient require the assistance of a helper? Yes. BLADDER MANAGEMENT - STEP 3: How much assistance does the patient require from the helper? Only supervision, stand-by, cuing, or c oaxing BLADDER MANAGEMENT - SCORE: 5-SUP BLADDER MANAGEMENT - FREQUENCY OF ACCIDENTS: BLADDER MANAGEMENT(FA) - STEP 1: How many accidents has the patient had during the current shift? 2 BOWEL MANAGEMENT: BOWEL MANAGEMENT - STEP 1: Does the patient control bowels completely and intentionally without equipment devices or medications AND is always continent? No. BOWEL MANAGEMENT - STEP 2: Does the patient require the assistance of a helper? No, patient requires medication for control such as stool softeners, suppositories, laxatives, enemas, or OTC medications BOWEL MANAGEMENT - SCORE: 6-SILVESTRE BOWEL MANAGEMENT - FREQUENCY OF ACCIDENTS: BOWEL MANAGEMENT(FA) - STEP 1: How many accidents has the patient had during the current shift? 0 TRANSFERS: BED, CHAIR, WHEELCHAIR: Patient requires more than one helper and/or the use of a mechanical lift is utilized TRANSFERS: BED, CHAIR, WHEELCHAIR - SCORE: 1-DEP TRANSFERS: TOILET: Patient requires more than one helper and/or the use of a mechanical lift is utilized TRANSFERS: TOILET - SCORE: 1-DEP TRANSFERS: SHOWER: Activity did not occur on this shift TRANSFERS: SHOWER - SCORE: 0-UNK TRANSFERS: TUB: Activity did not occur on this shift TRANSFERS: TUB - SCORE: 0-UNK LOCOMOTION: WALK: Activity did not occur on this shift LOCOMOTION: WALK - SCORE: 0-UNK LOCOMOTION: WHEELCHAIR: Activity did not occur on this shift LOCOMOTION: WHEELCHAIR - SCORE: 0-UNK COMPREHENSION: COMPREHENSION: TYPE: Both COMPREHENSION - STEP 1: Does the patient require help from a person or device, or need extra time to understand complex and a bstract ideas (such as current events, finances, discharge planning, medical issues, relationships, e tc)? Yes. COMPREHENSION - STEP 2: Does the patient require help to understand questions or statements about basic needs or ideas (such as hunger, thirst, sleep, safety, daily schedule, room location, or discomfort) half or more of the t aneudy? No. COMPREHENSION - STEP 3: How often does the patient need help to understand directions and conversation about basic needs? Les s than 10% of the time COMPREHENSION - SCORE: 5-SUP EXPRESSION EXPRESSION: TYPE: Both EXPRESSION - STEP 1: Does the patient require help from a person or device, or need extra time expressing complex and abst ract ideas (such as current events, finances, discharge planning, medical issues, relationships, etc) ? Yes. EXPRESSION - STEP 2: Does the patient require help to express basic necessities or ideas (such as hunger, thirst, sleep, s afety, daily schedule, room location, or discomfort) half or more of the time? No. EXPRESSION - STEP 3: How often does the patient need help to express directions and conversation about basic needs? Less t smiley 10% of the time EXPRESSION - SCORE: 5-SUP SOCIAL INTERACTION: SOCIAL INTERACTION - STEP 1: Does the patient require a helper to interact with others in social and therapeutic situations? No. SOCIAL INTERACTION - STEP 2: Does the patient need extra time in social situations, OR does s/he interact with staff, other patien ts, and family members ONLY in structured environments, OR does s/he require medication for social in teraction? No. SOCIAL INTERACTION - SCORE: 7-IND PROBLEM SOLVING: PROBLEM SOLVING - STEP 1: Does the patient need help from a person or device, or need extra time to solve complex problems such as managing a checking account or confronting interpersonal problems? Yes. PROBLEM SOLVING - STEP 2: Does the patient solve basic routine problems half or more of the time? Yes. PROBLEM SOLVING - STEP 3: How often does the patient need help to solve basic routine problems? Less than 10% of the time PROBLEM SOLVING - SCORE: 5-SUP MEMORY: MEMORY - STEP 1: Does the patient need help from a person or device, or need extra time to remember frequently encount ered people, daily routines, and executing requests? Yes. MEMORY - STEP 2: How often does the patient need help to remember frequently encountered people, daily routines, and e xecuting requests? Less than 10% of the time MEMORY - SCORE: 5-SUP SIGNATURE PANEL: The following modified sections: Eating - Score, Grooming - Score, Bathing - Score, Dressing - Upper Body - Score, Dressing - Lower Body - Score, Toileting - Score, Bladder Management - Score, Bowel Man agement - Score, Transfers: Bed, Chair, Wheelchair - Score, Transfers: Toilet - Score, Transfers: Melissa wer - Score, Transfers: Tub - Score, Locomotion: Walk - Score, Locomotion: Wheelchair - Score, Compre hension - Score, Expression - Score, Social Interaction - Score, Problem Solving - Score, Memory - Sc ore were [electronically] signed by Penelope Medrano C.N.A. on ThuJul 26 2018 11:15:19 T-0500 ([place])
[2018-07-26] MEDS: VALSARTAN 80 MG TAB PO SCH (12:00)
[2018-07-26] MEDS: ATORVASTATIN 10 MG TAB PO SCH (20:54)
[2018-07-26] MEDS: TAMSULOSIN 0.4 MG SR CAP PO SCH (20:55)
[2018-07-26] MEDS: ALPRAZOLAM 1 MG TABLET PO PRN (20:55)
[2018-07-26] MEDS: DOCUSATE NA/SENNA CONC 1 TAB PO SCH (20:55)
[2018-07-26] MEDS: POLYVINYL ALCOHOL 1.4% 15 ML EACH EYE PRN (20:56)
--- NOTE | 2018-07-26 22:33 | R.PN ---
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 SUBJECTIVE: Pt denied any Shortness of Breath. Pt denied any depression. Patient states that pain is under control. Hgb 11.7, prealbumin 20.7. Functional transfers done with total assistance. He requires total assistance for transfers and all activities of daily living. His legs buckle while attempting to stand. He stood in the parallel bars with moderate assistance. left hip x-ray shows no fractures. Therapeutic exercises done with contact guard assistance and multiple rest breaks. VITAL SIGNS Temperature: 97.4 F SBP/DBP: 105/65 Pulse: 65 Resp: 16 MEDICATION ALLERGIES: No Known Drug Allergies (NKDA) ENVIRONMENTAL ALLERGIES: None Known - Substance Allergies None Known - Other Allergies None Known NURSING: - Shower allowing shower - Bladder care per protocol - Skin care per protocol PRECAUTIONS: - Weight Bearing Precaution WBAT left LE ACTIVITIES OOB only with supervision THERAPIES: - Occupational Therapy Evaluate and Treat. Visual Perceptual Training. Cognitive Retraining. - Speech Therapy Cognitive Training. Memory Strategies. Expressive Language Skills. Speech Intelligibility Training. R eceptive Language Skills. Dysphagia Therapy. - Physical Therapy Evaluate and Treat. PHYSICAL EXAM - Gen Alert and awake Lying in bed No apparent distress Oriented to: person, time, and place - Skin No beakdown No abnormalities - Eyes No abnormalities - ENMT No abnormalities - Neck No abnormalities - CVS RRR - Chest No abnormalities - Resp Clear to auscultation - Abd + bowel sounds - GI nondistended Deferred - No abnormalities - Ext Mild left lower extremity edema. - MSK 0/5 strength in the left upper extremity and 2+/5 weakness in left lower extremity. - Neuro 0/5 strength in the left upper extremity and 2+/5 weakness in left lower extremity. - Psych No abnormalities ASSESSMENT: Pt. is a 78 yo Right-handed white male.On 06/25/2018 Pt. presented to [facility] with sudden on set of left-side weakness.On 06/25/2018 he was admitted to [facility] with diagnosis Right MCA. His impairment category is Stroke 01 - Left Body (Right Brain) (01.1).Pre-morbidly, Pt. was independ ent/mod-I in Self-Care, Sphincter Control, Transfers Control, Locomotion, Communication, and Social C ognition; and he had good Sphincter Control.Currently, he has deficits of Self-Care, Transfers Contro l, Locomotion, Communication, Social Cognition, Endurance, Balance, and Safety Awareness.Pt. is now r eferred to [facility] for acute in-patient rehabilitation in order to maximize patient's functional independence in activities of daily living, strength, ROM, and mobility.- Rehab Goal Patient has realistic goal of being discharged at assistance level 6-Maria E to reside at Home with Fam linda/Relatives. MDM/PLAN: - Physical Therapy Gait dysfunction - to improve, our physical therapists will perform initial evaluation of pt's statu s upon admission and devise an individualized program for Gait Training, and Wheel Chair mobility Inability to transfer - to improve, our physical therapists will perform initial evaluation of pt's status upon admission and devise an individualized program for Bed mobility Need for home safety evaluation - to improve, our physical therapists will perform initial evaluatio n of pt's status upon admission and devise an individualized program for Home Evaluation Need in caregiver upon discharge - to improve, our physical therapists will perform initial evaluati on of pt's status upon admission and devise an individualized program for Caregiver Training Edema - to improve, our physical therapists will perform initial evaluation of pt's status upon admi ssion and devise an individualized program for Elevation Training, and Lymphedema Therapy New precaution - to improve, our physical therapists will perform initial evaluation of pt's status upon admission and devise an individualized program for Patient precaution education Poor balance - to improve, our physical therapists will perform initial evaluation of pt's status up on admission and devise an individualized program for Balance Training Poor endurance - to improve, our physical therapists will perform initial evaluation of pt's status upon admission and devise an individualized program for Endurance Training Weakness - to improve, our physical therapists will perform initial evaluation of pt's status upon a dmission and devise an individualized program for Aquatic Therapy, Neuromuscular Reeducation, and Str engthening Achieving independence - to improve, our physical therapists will perform initial evaluation of pt's status upon admission and devise an individualized program for Community Reintegration Activities - Occupational Therapy ADL deficits - to improve, our occupation therapists will perform initial evaluation of pt's status upon admission and devise an individualized program for Bathing, Bed mobility, Community Reintegratio n, Cooking, Dressing, Eating, Fine Motor Skills, Grooming, Homemaking, Kitchen Mobility, Laundry, Pat ient Education, Safety Awareness, Splinting - Positioning, Transfers(Toilet, Tub, Shower), and Wheel Chair Management Cognitive deficits - to improve, our occupation therapists will perform initial evaluation of pt's s tatus upon admission and devise an individualized program for Cognition - orientation Need for manager critical care - to improve, our occupation therapists will perform initial evaluation of pt's status upon admission and devise an individualized program for Caregiver Training Weakness - to improve, our occupation therapists will perform initial evaluation of pt's status upon admission and devise an individualized program for Aquatic Therapy, Balance, Endurance, UE ROM, and UE strengthening - Diet Type Continue Regular - Diet - Liquid Texture Continue Thin - Tube Feed Continue N/A - Bladder care per protocol - Weight Bearing Precaution WBAT left LE - Skin care per protocol - Diet - Solid Texture Continue Regular Continue Mechanical Soft (Ground) - Shower allowing shower for Dementia, TBI, Stroke, or others FUNCTIONAL STATUS: UPDATED AT WEEKLY TEAM CONFERENCE - Bladder Same accident frequency: 7-Ind - No accidents in the past 7 days - Bowel Same accident frequency: 7-Ind - No accidents in the past 7 days - Walking Same score based on distance walked: 0(N/A) - Wheelchair Same score based on distance traveled: 0(N/A) FUNCTIONAL STATUS: - Self-Care A. Eating sup B. Grooming Anil C. Bathing maxA D. Dressing - Upper Anil E. Dressing - Lower maxA F. Toileting maxA - Sphincter Control G: Bladder control Ind H: Bowel control Ind - Transfers Control I. Bed/Chair/Wheelchair maxA J. Toilet maxA K. Tub/Shower ADNO - Locomotion L. Walk/Wheelchair (C) Dep L. Walk/Wheelchair (W) Dep M. Stairs ADNO - Communication N. Comprehension (B) Anil O. Expression (B) Anil - Social Cognition P. Social Interaction Anil Q. Problem Solving Anil R. Memory Anil - Endurance Fair - Balance Poor - Safety Awareness Fair CURRENT FUNC. DEFICITS: Self-Care, Transfers Control, Locomotion, Communication, Social Cognition, Endurance, Balance, and Sa fety Awareness SIGNATURE PANEL: (CDT)
--- NOTE | 2018-07-27 02:22 | FAST ---
SHIFT START DATE/TIME: 07/26/2018 19:00 (CDT) SHIFT END DATE/TIME: 07/27/2018 07:00 (CDT) NAME PRICE ROGERS DATE OF : 1940 DATE OF ADMISSION: 07/05/2018 18:33 (CDT) PHONE: AGE: 78 N# [id number] GENDER: Male ENCOUNTER PHYSICIAN: Dr. Abdirahman Zepeda M.D. 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 EATING: Activity did not occur on this shift EATING - SCORE: 0-UNK GROOMING: Activity did not occur on this shift GROOMING - SCORE: 0-UNK BATHING: Activity did not occur on this shift BATHING - SCORE: 0-UNK DRESSING - UPPER BODY: Patient is not dressing in public clothing ARTICLES SCORE Total number of steps: 0 DRESSING - UPPER BODY - SCORE: 0-UNK DRESSING - LOWER BODY: Patient is not dressing in public clothing ARTICLES SCORE Total number of steps: 0 DRESSING - LOWER BODY - SCORE: 0-UNK TOILETING: TOILETING - STEP 1: Does the patient require the assistance of a person or device, or need extra time with toileting? Yes . TOILETING - STEP 2: Does the patient require the assistance of a helper? Yes. TOILETING - STEP 3: How much assistance does the patient require from the helper? Hands-on assistance from the helper TOILETING - STEP 4: Of the 3 tasks: 1) Adjusting clothing prior to use, 2) Cleansing of perineal area, 3) Adjusting clot merissa after use; How many tasks does the patient perform WITHOUT assistance of the helper? No tasks; h elper performs all three tasks TOILETING - SCORE: 1-DEP BLADDER MANAGEMENT: [place] removes incontinent device (Depends, pull ups, etc.); cleans the patient after accident / inco ntinent episode; and, applies new incontinent device. BLADDER MANAGEMENT - SCORE: 1-DEP BOWEL MANAGEMENT: Activity did not occur on this shift BOWEL MANAGEMENT - SCORE: 7-IND TRANSFERS: BED, CHAIR, WHEELCHAIR: Activity did not occur on this shift TRANSFERS: BED, CHAIR, WHEELCHAIR - SCORE: 0-UNK TRANSFERS: TOILET: Activity did not occur on this shift TRANSFERS: TOILET - SCORE: 0-UNK TRANSFERS: SHOWER: Activity did not occur on this shift TRANSFERS: SHOWER - SCORE: 0-UNK TRANSFERS: TUB: Activity did not occur on this shift TRANSFERS: TUB - SCORE: 0-UNK LOCOMOTION: WALK: Activity did not occur on this shift LOCOMOTION: WALK - SCORE: 0-UNK LOCOMOTION: WHEELCHAIR: Activity did not occur on this shift LOCOMOTION: WHEELCHAIR - SCORE: 0-UNK COMPREHENSION: COMPREHENSION: TYPE: Both COMPREHENSION - STEP 1: Does the patient require help from a person or device, or need extra time to understand complex and a bstract ideas (such as current events, finances, discharge planning, medical issues, relationships, e tc)? No. COMPREHENSION - STEP 2: Does the patient need extra time, require an assistive device (such as glasses for visual comprehensi on or a hearing aid for auditory comprehension) or does s/he have mild difficulty understanding compl ex and abstract information? Yes. COMPREHENSION - SCORE: 6-SILVESTRE EXPRESSION EXPRESSION: TYPE: Both EXPRESSION - STEP 1: Does the patient require help from a person or device, or need extra time expressing complex and abst ract ideas (such as current events, finances, discharge planning, medical issues, relationships, etc) ? No. EXPRESSION - STEP 2: Does the patient need extra time, require an assistive device (such as augmentive communication syste m or a communication board), OR does s/he have mild difficulty expressing complex and abstract ideas (including mild dysarthria or mild word-find problems)? Yes. EXPRESSION - SCORE: 6-SILVESTRE SOCIAL INTERACTION: SOCIAL INTERACTION - STEP 1: Does the patient require a helper to interact with others in social and therapeutic situations? No. SOCIAL INTERACTION - STEP 2: Does the patient need extra time in social situations, OR does s/he interact with staff, other patien ts, and family members ONLY in structured environments, OR does s/he require medication for social in teraction? Yes, patient requires medication for social interaction SOCIAL INTERACTION - SCORE: 6-SILVESTRE PROBLEM SOLVING: PROBLEM SOLVING - STEP 1: Does the patient need help from a person or device, or need extra time to solve complex problems such as managing a checking account or confronting interpersonal problems? Yes. PROBLEM SOLVING - STEP 2: Does the patient solve basic routine problems half or more of the time? Yes. PROBLEM SOLVING - STEP 3: How often does the patient need help to solve basic routine problems? 10%-24% of the time PROBLEM SOLVING - SCORE: 4-MIN MEMORY: MEMORY - STEP 1: Does the patient need help from a person or device, or need extra time to remember frequently encount ered people, daily routines, and executing requests? No. MEMORY - STEP 2: Does the patient have slight difficulty recognizing frequently encountered people, daily routines, or executing requests without the need for repetition or using self-initiated or environmental cues to remember? Yes. MEMORY - SCORE: 6-SILVESTRE SIGNATURE PANEL: The following modified sections: Eating - Score, Grooming - Score, Dressing - Upper Body - Score, Jitendra ssing - Lower Body - Score, Toileting - Score, Bladder Management - Score, Bowel Management - Score, Transfers: Bed, Chair, Wheelchair - Score, Transfers: Toilet - Score, Transfers: Shower - Score, Good sfers: Tub - Score, Locomotion: Walk - Score, Locomotion: Wheelchair - Score, Comprehension - Score, Expression - Score, Social Interaction - Score, Problem Solving - Score, Memory - Score were [electro nically] signed by Valerie Almanzar CNA on ThuJul 27 2018 02:21:54 GMT-0500 (Central Daylight Time)
[2018-07-27] MEDS ORDERED: NYSTATIN PWDR 100000 UNIT/GM TOP PRN (06:15)
[2018-07-27] MEDS: LIDOCAINE 5% PATCH TOP SCH (08:12)
[2018-07-27] MEDS: LISINOPRIL 5 MG TAB PO SCH (08:12)
[2018-07-27] MEDS: CRANBERRY FRUIT EXTRACT 200 MG CAP PO SCH ×2 (08:13→20:33)
[2018-07-27] MEDS: CITALOPRAM 10 MG TABLET PO SCH (08:13)
[2018-07-27] MEDS: VITAMIN D 5,000 UNIT CAP PO SCH (08:13)
[2018-07-27] MEDS: MAGNESIUM OXIDE 400 MG TAB PO SCH ×2 (08:13→20:33)
[2018-07-27] MEDS: APIXABAN 2.5 MG TABLET PO SCH ×2 (08:13→20:33)
[2018-07-27] MEDS: FLECAINIDE 100 MG TAB PO SCH ×2 (08:13→20:34)
[2018-07-27] MEDS: CYANOCOBALAMIN 1,000 MCG TAB PO SCH (08:13)
[2018-07-27] MEDS: GABAPENTIN 300 MG CAP PO SCH ×3 (08:13→20:33)
[2018-07-27] MEDS: FUROSEMIDE 20 MG TABLET PO SCH (08:13)
[2018-07-27] MEDS: ACETAMINOPHEN 500 MG TAB PO PRN ×2 (08:19→13:42)
[2018-07-27] MEDS: TRAMADOL HCL 50 MG TAB PO PRN (09:27)
[2018-07-27] MEDS: VALSARTAN 80 MG TAB PO SCH (12:00)
[2018-07-27] MEDS: TAMSULOSIN 0.4 MG SR CAP PO SCH (20:33)
[2018-07-27] MEDS: POLYVINYL ALCOHOL 1.4% 15 ML EACH EYE PRN (20:34)
[2018-07-27] MEDS: ATORVASTATIN 10 MG TAB PO SCH (20:34)
[2018-07-27] MEDS: ALPRAZOLAM 1 MG TABLET PO PRN (20:34)
[2018-07-27] MEDS: DOCUSATE NA/SENNA CONC 1 TAB PO SCH (20:40)
--- NOTE | 2018-07-27 21:45 | R.PN ---
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 SUBJECTIVE: Pt denied any Shortness of Breath. Pt denied any depression. Patient states that pain is under control. Hgb 11.7, prealbumin 20.7. Functional transfers done with total assistance. He requires total assistance for transfers and all activities of daily living. His legs buckle while attempting to stand. He stood in the parallel bars with moderate assistance. left hip x-ray shows no fractures. Therapeutic exercises done with contact guard assistance and multiple rest breaks. VITAL SIGNS Temperature: 97.4 F SBP/DBP: 115/68 Pulse: 62 Resp: 16 MEDICATION ALLERGIES: No Known Drug Allergies (NKDA) ENVIRONMENTAL ALLERGIES: None Known - Substance Allergies None Known - Other Allergies None Known NURSING: - Shower allowing shower - Bladder care per protocol - Skin care per protocol PRECAUTIONS: - Weight Bearing Precaution WBAT left LE ACTIVITIES OOB only with supervision THERAPIES: - Occupational Therapy Evaluate and Treat. Visual Perceptual Training. Cognitive Retraining. - Speech Therapy Cognitive Training. Memory Strategies. Expressive Language Skills. Speech Intelligibility Training. R eceptive Language Skills. Dysphagia Therapy. - Physical Therapy Evaluate and Treat. PHYSICAL EXAM - Gen Alert and awake Lying in bed No apparent distress Oriented to: person, time, and place - Skin No beakdown No abnormalities - Eyes No abnormalities - ENMT No abnormalities - Neck No abnormalities - CVS RRR - Chest No abnormalities - Resp Clear to auscultation - Abd + bowel sounds - GI nondistended Deferred - No abnormalities - Ext Mild left lower extremity edema. - MSK 0/5 strength in the left upper extremity and 2+/5 weakness in left lower extremity. - Neuro 0/5 strength in the left upper extremity and 2+/5 weakness in left lower extremity. - Psych No abnormalities ASSESSMENT: Pt. is a 78 yo Right-handed white male.On 06/25/2018 Pt. presented to [facility] with sudden on set of left-side weakness.On 06/25/2018 he was admitted to [facility] with diagnosis Right MCA. His impairment category is Stroke 01 - Left Body (Right Brain) (01.1).Pre-morbidly, Pt. was independ ent/mod-I in Self-Care, Sphincter Control, Transfers Control, Locomotion, Communication, and Social C ognition; and he had good Sphincter Control.Currently, he has deficits of Self-Care, Transfers Contro l, Locomotion, Communication, Social Cognition, Endurance, Balance, and Safety Awareness.Pt. is now r eferred to [facility] for acute in-patient rehabilitation in order to maximize patient's functional independence in activities of daily living, strength, ROM, and mobility.- Rehab Goal Patient has realistic goal of being discharged at assistance level 6-Maria E to reside at Home with Fam linda/Relatives. MDM/PLAN: - Physical Therapy Gait dysfunction - to improve, our physical therapists will perform initial evaluation of pt's statu s upon admission and devise an individualized program for Gait Training, and Wheel Chair mobility Inability to transfer - to improve, our physical therapists will perform initial evaluation of pt's status upon admission and devise an individualized program for Bed mobility Need for home safety evaluation - to improve, our physical therapists will perform initial evaluatio n of pt's status upon admission and devise an individualized program for Home Evaluation Need in caregiver upon discharge - to improve, our physical therapists will perform initial evaluati on of pt's status upon admission and devise an individualized program for Caregiver Training Edema - to improve, our physical therapists will perform initial evaluation of pt's status upon admi ssion and devise an individualized program for Elevation Training, and Lymphedema Therapy New precaution - to improve, our physical therapists will perform initial evaluation of pt's status upon admission and devise an individualized program for Patient precaution education Poor balance - to improve, our physical therapists will perform initial evaluation of pt's status up on admission and devise an individualized program for Balance Training Poor endurance - to improve, our physical therapists will perform initial evaluation of pt's status upon admission and devise an individualized program for Endurance Training Weakness - to improve, our physical therapists will perform initial evaluation of pt's status upon a dmission and devise an individualized program for Aquatic Therapy, Neuromuscular Reeducation, and Str engthening Achieving independence - to improve, our physical therapists will perform initial evaluation of pt's status upon admission and devise an individualized program for Community Reintegration Activities - Occupational Therapy ADL deficits - to improve, our occupation therapists will perform initial evaluation of pt's status upon admission and devise an individualized program for Bathing, Bed mobility, Community Reintegratio n, Cooking, Dressing, Eating, Fine Motor Skills, Grooming, Homemaking, Kitchen Mobility, Laundry, Pat ient Education, Safety Awareness, Splinting - Positioning, Transfers(Toilet, Tub, Shower), and Wheel Chair Management Cognitive deficits - to improve, our occupation therapists will perform initial evaluation of pt's s tatus upon admission and devise an individualized program for Cognition - orientation Need for resident care manager rn - to improve, our occupation therapists will perform initial evaluation of pt's status upon admission and devise an individualized program for Caregiver Training Weakness - to improve, our occupation therapists will perform initial evaluation of pt's status upon admission and devise an individualized program for Aquatic Therapy, Balance, Endurance, UE ROM, and UE strengthening - Diet Type Continue Regular - Diet - Liquid Texture Continue Thin - Tube Feed Continue N/A - Bladder care per protocol - Weight Bearing Precaution WBAT left LE - Skin care per protocol - Diet - Solid Texture Continue Regular Continue Mechanical Soft (Ground) - Shower allowing shower for Dementia, TBI, Stroke, or others FUNCTIONAL STATUS: UPDATED AT WEEKLY TEAM CONFERENCE - Bladder Same accident frequency: 7-Ind - No accidents in the past 7 days - Bowel Same accident frequency: 7-Ind - No accidents in the past 7 days - Walking Same score based on distance walked: 0(N/A) - Wheelchair Same score based on distance traveled: 0(N/A) FUNCTIONAL STATUS: - Self-Care A. Eating sup B. Grooming Anil C. Bathing maxA D. Dressing - Upper Anil E. Dressing - Lower maxA F. Toileting maxA - Sphincter Control G: Bladder control Ind H: Bowel control Ind - Transfers Control I. Bed/Chair/Wheelchair maxA J. Toilet maxA K. Tub/Shower ADNO - Locomotion L. Walk/Wheelchair (C) Dep L. Walk/Wheelchair (W) Dep M. Stairs ADNO - Communication N. Comprehension (B) Anil O. Expression (B) Anil - Social Cognition P. Social Interaction Anil Q. Problem Solving Anil R. Memory Anil - Endurance Fair - Balance Poor - Safety Awareness Fair CURRENT FUNC. DEFICITS: Self-Care, Transfers Control, Locomotion, Communication, Social Cognition, Endurance, Balance, and Sa fety Awareness SIGNATURE PANEL: (CDT)
--- NOTE | 2018-07-28 03:15 | FAST ---
SHIFT START DATE/TIME: 07/27/2018 19:00 (CDT) SHIFT END DATE/TIME: 07/28/2018 07:00 (CDT) NAME PRICE ROGERS DATE OF : 1940 DATE OF ADMISSION: 07/05/2018 18:33 (CDT) PHONE: AGE: 78 N# [id number] GENDER: Male ENCOUNTER PHYSICIAN: Dr. Abdirahman Zepeda M.D. 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 EATING: Activity did not occur on this shift EATING - SCORE: 0-UNK GROOMING: Activity did not occur on this shift GROOMING - SCORE: 0-UNK BATHING: Activity did not occur on this shift BATHING - SCORE: 0-UNK DRESSING - UPPER BODY: Patient is not dressing in public clothing ARTICLES SCORE Total number of steps: 0 DRESSING - UPPER BODY - SCORE: 0-UNK DRESSING - LOWER BODY: Patient is not dressing in public clothing ARTICLES SCORE Total number of steps: 0 DRESSING - LOWER BODY - SCORE: 0-UNK TOILETING: TOILETING - STEP 1: Does the patient require the assistance of a person or device, or need extra time with toileting? Yes . TOILETING - STEP 2: Does the patient require the assistance of a helper? Yes. TOILETING - STEP 3: How much assistance does the patient require from the helper? Hands-on assistance from the helper TOILETING - STEP 4: Of the 3 tasks: 1) Adjusting clothing prior to use, 2) Cleansing of perineal area, 3) Adjusting clot merissa after use; How many tasks does the patient perform WITHOUT assistance of the helper? No tasks; h raquel performs all three tasks TOILETING - SCORE: 1-DEP BLADDER MANAGEMENT: [place] removes incontinent device (Depends, pull ups, etc.); cleans the patient after accident / inco ntinent episode; and, applies new incontinent device. BLADDER MANAGEMENT - SCORE: 1-DEP BOWEL MANAGEMENT: BOWEL MANAGEMENT - STEP 1: Does the patient control bowels completely and intentionally without equipment devices or medications AND is always continent? No. BOWEL MANAGEMENT - STEP 2: Does the patient require the assistance of a helper? No, patient requires medication for control such as stool softeners, suppositories, laxatives, enemas, or OTC medications BOWEL MANAGEMENT - SCORE: 6-SILVESTRE TRANSFERS: BED, CHAIR, WHEELCHAIR: Patient requires more than one helper and/or the use of a mechanical lift is utilized TRANSFERS: BED, CHAIR, WHEELCHAIR - SCORE: 1-DEP TRANSFERS: TOILET: Patient requires more than one helper and/or the use of a mechanical lift is utilized TRANSFERS: TOILET - SCORE: 1-DEP TRANSFERS: SHOWER: Activity did not occur on this shift TRANSFERS: SHOWER - SCORE: 0-UNK TRANSFERS: TUB: Activity did not occur on this shift TRANSFERS: TUB - SCORE: 0-UNK LOCOMOTION: WALK: Activity did not occur on this shift LOCOMOTION: WALK - SCORE: 0-UNK LOCOMOTION: WHEELCHAIR: Activity did not occur on this shift LOCOMOTION: WHEELCHAIR - SCORE: 0-UNK COMPREHENSION: COMPREHENSION: TYPE: Both COMPREHENSION - STEP 1: Does the patient require help from a person or device, or need extra time to understand complex and a bstract ideas (such as current events, finances, discharge planning, medical issues, relationships, e tc)? No. COMPREHENSION - STEP 2: Does the patient need extra time, require an assistive device (such as glasses for visual comprehensi on or a hearing aid for auditory comprehension) or does s/he have mild difficulty understanding compl ex and abstract information? Yes. COMPREHENSION - SCORE: 6-SILVESTRE EXPRESSION EXPRESSION: TYPE: Both EXPRESSION - STEP 1: Does the patient require help from a person or device, or need extra time expressing complex and abst ract ideas (such as current events, finances, discharge planning, medical issues, relationships, etc) ? No. EXPRESSION - STEP 2: Does the patient need extra time, require an assistive device (such as augmentive communication syste m or a communication board), OR does s/he have mild difficulty expressing complex and abstract ideas (including mild dysarthria or mild word-find problems)? Yes. EXPRESSION - SCORE: 6-SILVESTRE SOCIAL INTERACTION: SOCIAL INTERACTION - STEP 1: Does the patient require a helper to interact with others in social and therapeutic situations? No. SOCIAL INTERACTION - STEP 2: Does the patient need extra time in social situations, OR does s/he interact with staff, other patien ts, and family members ONLY in structured environments, OR does s/he require medication for social in teraction? Yes, patient requires medication for social interaction SOCIAL INTERACTION - SCORE: 6-SILVESTRE PROBLEM SOLVING: PROBLEM SOLVING - STEP 1: Does the patient need help from a person or device, or need extra time to solve complex problems such as managing a checking account or confronting interpersonal problems? Yes. PROBLEM SOLVING - STEP 2: Does the patient solve basic routine problems half or more of the time? Yes. PROBLEM SOLVING - STEP 3: How often does the patient need help to solve basic routine problems? Less than 10% of the time PROBLEM SOLVING - SCORE: 5-SUP MEMORY: MEMORY - STEP 1: Does the patient need help from a person or device, or need extra time to remember frequently encount ered people, daily routines, and executing requests? No. MEMORY - STEP 2: Does the patient have slight difficulty recognizing frequently encountered people, daily routines, or executing requests without the need for repetition or using self-initiated or environmental cues to remember? Yes. MEMORY - SCORE: 6-SILVESTRE SIGNATURE PANEL: The following modified sections: Eating - Score, Grooming - Score, Dressing - Upper Body - Score, Jitendra ssing - Lower Body - Score, Toileting - Score, Bladder Management - Score, Bowel Management - Score, Transfers: Bed, Chair, Wheelchair - Score, Transfers: Toilet - Score, Transfers: Shower - Score, Good sfers: Tub - Score, Locomotion: Walk - Score, Locomotion: Wheelchair - Score, Comprehension - Score, Expression - Score, Social Interaction - Score, Problem Solving - Score, Memory - Score were [electro nically] signed by Valerie Almanzar CNA on ThuJul 28 2018 03:14:39 GMT-0500 (Central Daylight Time)
[2018-07-28] MEDS: VITAMIN D 5,000 UNIT CAP PO SCH (08:08)
[2018-07-28] MEDS: FUROSEMIDE 20 MG TABLET PO SCH (08:08)
[2018-07-28] MEDS: LISINOPRIL 5 MG TAB PO SCH (08:08)
[2018-07-28] MEDS: ACETAMINOPHEN 500 MG TAB PO PRN (08:09)
[2018-07-28] MEDS: MAGNESIUM OXIDE 400 MG TAB PO SCH ×2 (08:09→20:52)
[2018-07-28] MEDS: GABAPENTIN 300 MG CAP PO SCH ×3 (08:09→20:52)
[2018-07-28] MEDS: CYANOCOBALAMIN 1,000 MCG TAB PO SCH (08:09)
[2018-07-28] MEDS: FLECAINIDE 100 MG TAB PO SCH ×2 (08:09→20:54)
[2018-07-28] MEDS: CITALOPRAM 10 MG TABLET PO SCH (08:09)
[2018-07-28] MEDS: APIXABAN 2.5 MG TABLET PO SCH ×2 (08:09→20:52)
[2018-07-28] MEDS: CRANBERRY FRUIT EXTRACT 200 MG CAP PO SCH ×2 (08:09→20:52)
[2018-07-28] MEDS: LIDOCAINE 5% PATCH TOP SCH (08:52)
[2018-07-28] MEDS: VALSARTAN 80 MG TAB PO SCH (13:59)
--- NOTE | 2018-07-28 14:38 | FAST ---
ENCOUNTER DATE AND TIME: 07/28/2018 08:00 (CDT) NAME PRICE ROGERS DATE OF : 1940 DATE OF ADMISSION: 07/05/2018 18:33 (CDT) PHONE: AGE: 78 SSN# [id number] GENDER: Male ENCOUNTER PHYSICIAN: Dr. Abdirahman Zepeda M.D. 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 EATING: Activity did not occur on this shift EATING - SCORE: 0-UNK GROOMING: Activity did not occur on this shift GROOMING - SCORE: 0-UNK BATHING: Activity did not occur on this shift BATHING - SCORE: 0-UNK DRESSING - UPPER BODY: Activity did not occur on this shift Patient is not dressing in public clothing ARTICLES SCORE Total number of steps: 0 DRESSING - UPPER BODY - SCORE: 0-UNK DRESSING - LOWER BODY: Activity did not occur on this shift Patient is not dressing in public clothing ARTICLES SCORE Total number of steps: 0 DRESSING - LOWER BODY - SCORE: 0-UNK TOILETING: Activity did not occur on this shift TOILETING - SCORE: 0-UNK BLADDER MANAGEMENT: Activity did not occur on this shift BLADDER MANAGEMENT - SCORE: 7-IND BOWEL MANAGEMENT: Activity did not occur on this shift BOWEL MANAGEMENT - SCORE: 7-IND TRANSFERS: BED, CHAIR, WHEELCHAIR: Activity did not occur on this shift TRANSFERS: BED, CHAIR, WHEELCHAIR - SCORE: 0-UNK TRANSFERS: TOILET: Activity did not occur on this shift TRANSFERS: TOILET - SCORE: 0-UNK TRANSFERS: SHOWER: Activity did not occur on this shift TRANSFERS: SHOWER - SCORE: 0-UNK TRANSFERS: TUB: Activity did not occur on this shift TRANSFERS: TUB - SCORE: 0-UNK LOCOMOTION: WALK: Activity did not occur on this shift LOCOMOTION: WALK - SCORE: 0-UNK LOCOMOTION: WHEELCHAIR: LOCOMOTION: WHEELCHAIR - STEP 1: Does the patient need help to go 150 feet in a wheelchair? Yes. LOCOMOTION: WHEELCHAIR - STEP 2: How much assistance does the patient need from the helper? More than incidental help LOCOMOTION: WHEELCHAIR - SCORE: 3-MOD LOCOMOTION: STAIRS: Activity did not occur on this shift LOCOMOTION: STAIRS - SCORE: 0-UNK COMPREHENSION: COMPREHENSION - SCORE: 0-UNK EXPRESSION EXPRESSION - SCORE: 0-UNK SOCIAL INTERACTION: SOCIAL INTERACTION - SCORE: 0-UNK PROBLEM SOLVING: PROBLEM SOLVING - SCORE: 0-UNK MEMORY: MEMORY - SCORE: 0-UNK SIGNATURE PANEL: The following modified sections: Transfers: Bed, Chair, Wheelchair - Score, Transfers: Toilet - Score , Locomotion: Walk - Score, Locomotion: Wheelchair - Score, Locomotion: Stairs - Score were [electron ically] signed by Skip Phillips PT on ThuJul 28 2018 14:37:15 T-0500 (Central Daylight Time)
--- NOTE | 2018-07-28 15:10 | FAST ---
ENCOUNTER DATE AND TIME: 07/23/2018 08:00 (CDT) NAME PRICE ROGERS DATE OF : 1940 DATE OF ADMISSION: 07/05/2018 18:33 (CDT) PHONE: AGE: 78 SSN# [id number] GENDER: Male ENCOUNTER PHYSICIAN: Dr. Abdirahman Zepeda M.D. 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 EATING: Activity did not occur on this shift EATING - SCORE: 0-UNK GROOMING: Activity did not occur on this shift GROOMING - SCORE: 0-UNK BATHING: Activity did not occur on this shift BATHING - SCORE: 0-UNK DRESSING - UPPER BODY: Activity did not occur on this shift Patient is not dressing in public clothing ARTICLES SCORE Total number of steps: 0 DRESSING - UPPER BODY - SCORE: 0-UNK DRESSING - LOWER BODY: Activity did not occur on this shift Patient is not dressing in public clothing ARTICLES SCORE Total number of steps: 0 DRESSING - LOWER BODY - SCORE: 0-UNK TOILETING: Activity did not occur on this shift TOILETING - SCORE: 0-UNK BLADDER MANAGEMENT: Activity did not occur on this shift BLADDER MANAGEMENT - SCORE: 7-IND BOWEL MANAGEMENT: Activity did not occur on this shift BOWEL MANAGEMENT - SCORE: 7-IND TRANSFERS: BED, CHAIR, WHEELCHAIR: Patient requires more than one helper and/or the use of a mechanical lift is utilized TRANSFERS: BED, CHAIR, WHEELCHAIR - SCORE: 1-DEP TRANSFERS: TOILET: Patient requires more than one helper and/or the use of a mechanical lift is utilized TRANSFERS: TOILET - SCORE: 1-DEP TRANSFERS: SHOWER: Activity did not occur on this shift TRANSFERS: SHOWER - SCORE: 0-UNK TRANSFERS: TUB: Activity did not occur on this shift TRANSFERS: TUB - SCORE: 0-UNK LOCOMOTION: WALK: Activity did not occur on this shift LOCOMOTION: WALK - SCORE: 0-UNK LOCOMOTION: WHEELCHAIR: LOCOMOTION: WHEELCHAIR - STEP 1: Does the patient need help to go 150 feet in a wheelchair? Yes. LOCOMOTION: WHEELCHAIR - STEP 2: How much assistance does the patient need from the helper? Patient goes less than 150 feet - but more than 50 feet - with the assistance of only one helper LOCOMOTION: WHEELCHAIR - SCORE: 2-MAX LOCOMOTION: STAIRS: Activity did not occur on this shift LOCOMOTION: STAIRS - SCORE: 0-UNK COMPREHENSION: COMPREHENSION - SCORE: 0-UNK EXPRESSION EXPRESSION - SCORE: 0-UNK SOCIAL INTERACTION: SOCIAL INTERACTION - SCORE: 0-UNK PROBLEM SOLVING: PROBLEM SOLVING - SCORE: 0-UNK MEMORY: MEMORY - SCORE: 0-UNK SIGNATURE PANEL: The following modified sections: Transfers: Bed, Chair, Wheelchair - Score, Transfers: Toilet - Score , Locomotion: Walk - Score, Locomotion: Wheelchair - Score, Locomotion: Stairs - Score were [electron ically] signed by Lorne Garcia PTA on ThuJul 28 2018 15:09:29 GMT-0500 (Central Daylight Time)
--- NOTE | 2018-07-28 15:13 | FAST ---
ENCOUNTER DATE AND TIME: 07/26/2018 08:00 (CDT) NAME PRICE ROGERS DATE OF : 1940 DATE OF ADMISSION: 07/05/2018 18:33 (CDT) PHONE: AGE: 78 SSN# [id number] GENDER: Male ENCOUNTER PHYSICIAN: Dr. Abdirahman Zepeda M.D. 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 EATING: Activity did not occur on this shift EATING - SCORE: 0-UNK GROOMING: Activity did not occur on this shift GROOMING - SCORE: 0-UNK BATHING: Activity did not occur on this shift BATHING - SCORE: 0-UNK DRESSING - UPPER BODY: Activity did not occur on this shift Patient is not dressing in public clothing ARTICLES SCORE Total number of steps: 0 DRESSING - UPPER BODY - SCORE: 0-UNK DRESSING - LOWER BODY: Activity did not occur on this shift Patient is not dressing in public clothing ARTICLES SCORE Total number of steps: 0 DRESSING - LOWER BODY - SCORE: 0-UNK TOILETING: Activity did not occur on this shift TOILETING - SCORE: 0-UNK BLADDER MANAGEMENT: Activity did not occur on this shift BLADDER MANAGEMENT - SCORE: 7-IND BOWEL MANAGEMENT: Activity did not occur on this shift BOWEL MANAGEMENT - SCORE: 7-IND TRANSFERS: BED, CHAIR, WHEELCHAIR: TRANSFERS: BED, CHAIR, WHEELCHAIR - STEP 1: Does the patient require assistance of a person or device, or need extra time with bed, chair, or whe elchair transfers? Yes. TRANSFERS: BED, CHAIR, WHEELCHAIR - STEP 2: Does the patient require the assistance of a helper? Yes. TRANSFERS: BED, CHAIR, WHEELCHAIR - STEP 3: How much assistance does the patient require from the helper? Lifting of the patient TRANSFERS: BED, CHAIR, WHEELCHAIR - STEP 4: Does the helper lift the patient ONLY up? ONLY down? Up AND Down? Up AND Down. TRANSFERS: BED, CHAIR, WHEELCHAIR - SCORE: 2-MAX TRANSFERS: TOILET: Activity did not occur on this shift TRANSFERS: TOILET - SCORE: 0-UNK TRANSFERS: SHOWER: Activity did not occur on this shift TRANSFERS: SHOWER - SCORE: 0-UNK TRANSFERS: TUB: Activity did not occur on this shift TRANSFERS: TUB - SCORE: 0-UNK LOCOMOTION: WALK: Activity did not occur on this shift LOCOMOTION: WALK - SCORE: 0-UNK LOCOMOTION: WHEELCHAIR: Activity did not occur on this shift LOCOMOTION: WHEELCHAIR - SCORE: 0-UNK LOCOMOTION: STAIRS: Activity did not occur on this shift LOCOMOTION: STAIRS - SCORE: 0-UNK COMPREHENSION: COMPREHENSION - SCORE: 0-UNK EXPRESSION EXPRESSION - SCORE: 0-UNK SOCIAL INTERACTION: SOCIAL INTERACTION - SCORE: 0-UNK PROBLEM SOLVING: PROBLEM SOLVING - SCORE: 0-UNK MEMORY: MEMORY - SCORE: 0-UNK SIGNATURE PANEL: The following modified sections: Transfers: Bed, Chair, Wheelchair - Score, Transfers: Toilet - Score , Locomotion: Walk - Score, Locomotion: Wheelchair - Score, Locomotion: Stairs - Score were [electron icallshelbie] signed by Lorne Garcia PTA on ThuJul 28 2018 15:12:39 GMT-0500 (Central Daylight Time)
--- NOTE | 2018-07-28 15:21 | FAST ---
ENCOUNTER DATE AND TIME: 07/27/2018 08:00 (CDT) NAME PRICE ROGERS DATE OF : 1940 DATE OF ADMISSION: 07/05/2018 18:33 (CDT) PHONE: AGE: 78 SSN# [id number] GENDER: Male ENCOUNTER PHYSICIAN: Dr. Abdirahman Zepeda M.D. 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 EATING: Activity did not occur on this shift EATING - SCORE: 0-UNK GROOMING: Activity did not occur on this shift GROOMING - SCORE: 0-UNK BATHING: Activity did not occur on this shift BATHING - SCORE: 0-UNK DRESSING - UPPER BODY: Activity did not occur on this shift Patient is not dressing in public clothing ARTICLES SCORE Total number of steps: 0 DRESSING - UPPER BODY - SCORE: 0-UNK DRESSING - LOWER BODY: Activity did not occur on this shift Patient is not dressing in public clothing ARTICLES SCORE Total number of steps: 0 DRESSING - LOWER BODY - SCORE: 0-UNK TOILETING: Activity did not occur on this shift TOILETING - SCORE: 0-UNK BLADDER MANAGEMENT: Activity did not occur on this shift BLADDER MANAGEMENT - SCORE: 7-IND BOWEL MANAGEMENT: Activity did not occur on this shift BOWEL MANAGEMENT - SCORE: 7-IND TRANSFERS: BED, CHAIR, WHEELCHAIR: Patient requires more than one helper and/or the use of a mechanical lift is utilized TRANSFERS: BED, CHAIR, WHEELCHAIR - SCORE: 1-DEP TRANSFERS: TOILET: Activity did not occur on this shift TRANSFERS: TOILET - SCORE: 0-UNK TRANSFERS: SHOWER: Activity did not occur on this shift TRANSFERS: SHOWER - SCORE: 0-UNK TRANSFERS: TUB: Activity did not occur on this shift TRANSFERS: TUB - SCORE: 0-UNK LOCOMOTION: WALK: Activity did not occur on this shift LOCOMOTION: WALK - SCORE: 0-UNK LOCOMOTION: WHEELCHAIR: Patient propels wheelchair less than 50 ft LOCOMOTION: WHEELCHAIR - SCORE: 1-DEP LOCOMOTION: STAIRS: Activity did not occur on this shift LOCOMOTION: STAIRS - SCORE: 0-UNK COMPREHENSION: COMPREHENSION - SCORE: 0-UNK EXPRESSION EXPRESSION - SCORE: 0-UNK SOCIAL INTERACTION: SOCIAL INTERACTION - SCORE: 0-UNK PROBLEM SOLVING: PROBLEM SOLVING - SCORE: 0-UNK MEMORY: MEMORY - SCORE: 0-UNK SIGNATURE PANEL: The following modified sections: Transfers: Bed, Chair, Wheelchair - Score, Transfers: Toilet - Score , Locomotion: Walk - Score, Locomotion: Wheelchair - Score, Locomotion: Stairs - Score were [electron ically] signed by Lorne Garcia PTA on ThuJul 28 2018 15:20:05 GMT-0500 (Central Daylight Time)
--- NOTE | 2018-07-28 17:33 | FAST ---
SHIFT START DATE/TIME: 07/28/2018 07:00 (CDT) SHIFT END DATE/TIME: 07/28/2018 19:00 (CDT) NAME PRICE ROGERS DATE OF : 1940 DATE OF ADMISSION: 07/05/2018 18:33 (CDT) PHONE: AGE: 78 N# [id number] GENDER: Male ENCOUNTER PHYSICIAN: Dr. Abdirahman Zepeda M.D. 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 EATING: EATING - STEP 1: Does the patient require the assistance of a person or device, or need extra time when eating? Yes. EATING - STEP 2: Does the patient require the assistance of a helper? No, patient only requires an assistive device, O R s/he takes more than reasonable time to eat, OR there is a safety concern, OR s/he requires modifie d food consistency EATING - SCORE: 6-SILVESTRE GROOMING: Activity did not occur on this shift GROOMING - SCORE: 0-UNK BATHING: Activity did not occur on this shift BATHING - SCORE: 0-UNK DRESSING - UPPER BODY: T-shirt/pullover shirt (four steps) ARTICLES SCORE Total number of steps: 4 DRESSING - UPPER BODY - STEP 1: Does the patient require help from a person or device, or need extra time when dressing above the [address]? Yes. DRESSING - UPPER BODY - STEP 2: Does the patient require the assistance of a helper? Yes. DRESSING - UPPER BODY - STEP 3: Does the helper touch the patient while dressing? Yes. DRESSING - UPPER BODY - STEP 4: How many of the total steps does the patient complete on his/her own? 2 DRESSING - UPPER BODY - SCORE: 3-MOD DRESSING - LOWER BODY: Elastic waist pants (three steps) Slip-on shoe - Left foot (one step) Slip-on shoe - Right foot (one step) Underwear (three steps) ARTICLES SCORE Total number of steps: 8 DRESSING - LOWER BODY - STEP 1: Does the patient require help from a person or device, or need extra time when dressing below the [address]? Yes. DRESSING - LOWER BODY - STEP 2: Does the patient require the assistance of a helper? Yes. DRESSING - LOWER BODY - STEP 3: Does the helper touch the patient while dressing? Yes. DRESSING - LOWER BODY - STEP 4: How many of the total steps does the patient complete on his/her own? 2 DRESSING - LOWER BODY - STEP 5: Does patient require total assistance for dressing below the waist such as the helper holding clothin g and performing basically all the activities? Yes. DRESSING - LOWER BODY - SCORE: 1-DEP TOILETING: TOILETING - STEP 1: Does the patient require the assistance of a person or device, or need extra time with toileting? Yes . TOILETING - STEP 2: Does the patient require the assistance of a helper? Yes. TOILETING - STEP 3: How much assistance does the patient require from the helper? Hands-on assistance from the helper TOILETING - STEP 4: Of the 3 tasks: 1) Adjusting clothing prior to use, 2) Cleansing of perineal area, 3) Adjusting clot merissa after use; How many tasks does the patient perform WITHOUT assistance of the helper? No tasks; h elper performs all three tasks TOILETING - SCORE: 1-DEP BLADDER MANAGEMENT: [place] removes incontinent device (Depends, pull ups, etc.); cleans the patient after accident / inco ntinent episode; and, applies new incontinent device. BLADDER MANAGEMENT - SCORE: 1-DEP BLADDER MANAGEMENT - FREQUENCY OF ACCIDENTS: BLADDER MANAGEMENT(FA) - STEP 1: How many accidents has the patient had during the current shift? 2 BOWEL MANAGEMENT: [place] removes incontinent device (depends, pull ups, etc.); cleans the patient after accident / inco ntinent episode; and, applies new device (depends, pull-ups, padding, etc.). BOWEL MANAGEMENT - SCORE: 1-DEP BOWEL MANAGEMENT - FREQUENCY OF ACCIDENTS: BOWEL MANAGEMENT(FA) - STEP 1: How many accidents has the patient had during the current shift? 0 TRANSFERS: BED, CHAIR, WHEELCHAIR: TRANSFERS: BED, CHAIR, WHEELCHAIR - STEP 1: Does the patient require assistance of a person or device, or need extra time with bed, chair, or whe elchair transfers? Yes. TRANSFERS: BED, CHAIR, WHEELCHAIR - STEP 2: Does the patient require the assistance of a helper? Yes. TRANSFERS: BED, CHAIR, WHEELCHAIR - STEP 3: How much assistance does the patient require from the helper? Lifting of the patient TRANSFERS: BED, CHAIR, WHEELCHAIR - STEP 4: Does the helper lift the patient ONLY up? ONLY down? Up AND Down? Patient needs help with all lifting TRANSFERS: BED, CHAIR, WHEELCHAIR - SCORE: 1-DEP TRANSFERS: TOILET: TRANSFERS: TOILET - STEP 1: Does the patient require the assistance of a person or device, or need extra time with toilet transfe rs? Yes. TRANSFERS: TOILET - STEP 2: Does the patient require the assistance of a helper? Yes. TRANSFERS: TOILET - STEP 3: How much assistance does the patient require from the helper? Patient performs less than half of the transferring tasks TRANSFERS: TOILET - STEP 4: Does the patient require total assistance for the toilet transfer such as the helper doing basically all the lifting? Yes. TRANSFERS: TOILET - SCORE: 1-DEP TRANSFERS: SHOWER: Activity did not occur on this shift TRANSFERS: SHOWER - SCORE: 0-UNK TRANSFERS: TUB: Activity did not occur on this shift TRANSFERS: TUB - SCORE: 0-UNK LOCOMOTION: WALK: Activity did not occur on this shift LOCOMOTION: WALK - SCORE: 0-UNK LOCOMOTION: WHEELCHAIR: Activity did not occur on this shift LOCOMOTION: WHEELCHAIR - SCORE: 0-UNK COMPREHENSION: COMPREHENSION - SCORE: 0-UNK EXPRESSION EXPRESSION - SCORE: 0-UNK SOCIAL INTERACTION: SOCIAL INTERACTION - SCORE: 0-UNK PROBLEM SOLVING: PROBLEM SOLVING - SCORE: 0-UNK MEMORY: MEMORY - SCORE: 0-UNK SIGNATURE PANEL: The following modified sections: Eating - Score, Grooming - Score, Bathing - Score, Dressing - Upper Body - Score, Dressing - Lower Body - Score, Toileting - Score, Bladder Management - Score, Bowel Man agement - Score, Transfers: Bed, Chair, Wheelchair - Score, Transfers: Toilet - Score, Transfers: Melissa wer - Score, Transfers: Tub - Score, Locomotion: Walk - Score, Locomotion: Wheelchair - Score, Compre hension - Score, Expression - Score, Social Interaction - Score, Problem Solving - Score, Memory - Sc ore were [electronically] signed by Pily Conrad CNA on ThuJul 28 2018 17:32:14 [facility]-0500 (Centra l Daylight Time)
--- NOTE | 2018-07-28 18:17 | FAST ---
ENCOUNTER DATE AND TIME: 07/26/2018 08:00 (CDT) NAME PRICE ROGERS DATE OF : 1940 DATE OF ADMISSION: 07/05/2018 18:33 (CDT) PHONE: AGE: 78 SSN# [id number] GENDER: Male ENCOUNTER PHYSICIAN: Dr. Abdirahman Zepeda M.D. 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 EATING: Activity did not occur on this shift EATING - SCORE: 0-UNK GROOMING: Comb/brush hair Oral care Wash, rinse, and dry face Wash, rinse, and dry hands GROOMING - STEP 1: Does the patient require the assistance of a person or device, or need extra time when grooming? Yes. GROOMING - STEP 2: Does the patient require the assistance of a helper? No. The patient only requires an assistive devic e, OR takes more than reasonable time to groom, OR there is a concern for safety as the patient groom s GROOMING - SCORE: 6-SILVESTRE BATHING: Abdomen Buttocks Chest Left arm Left lower leg and foot Left upper leg Perineal area Right arm Right lower leg and foot Right upper leg BATHING - STEP 1: Does the patient require the assistance of a person or device, or need extra time when bathing? Yes. BATHING - STEP 2: Does the patient require the assistance of a helper? Yes. BATHING - STEP 3: How much assistance does the patient require from the helper? More than just incidental help BATHING - STEP 4: What percent of the body parts did the patient bathe WITHOUT the helper? Half or more of the body par ts BATHING - SCORE: 3-MOD DRESSING - UPPER BODY: T-shirt/pullover shirt (four steps) ARTICLES SCORE Total number of steps: 4 DRESSING - UPPER BODY - STEP 1: Does the patient require help from a person or device, or need extra time when dressing above the [address]? Yes. DRESSING - UPPER BODY - STEP 2: Does the patient require the assistance of a helper? Yes. DRESSING - UPPER BODY - STEP 3: Does the helper touch the patient while dressing? Yes. DRESSING - UPPER BODY - STEP 4: How many of the total steps does the patient complete on his/her own? 2 DRESSING - UPPER BODY - SCORE: 3-MOD DRESSING - LOWER BODY: Elastic waist pants (three steps) Slip-on shoe - Left foot (one step) Slip-on shoe - Right foot (one step) Sock - Left foot (one step) Sock - Right foot (one step) Underwear (three steps) ARTICLES SCORE Total number of steps: 10 DRESSING - LOWER BODY - STEP 1: Does the patient require help from a person or device, or need extra time when dressing below the [address]? Yes. DRESSING - LOWER BODY - STEP 2: Does the patient require the assistance of a helper? Yes. DRESSING - LOWER BODY - STEP 3: Does the helper touch the patient while dressing? Yes. DRESSING - LOWER BODY - STEP 4: How many of the total steps does the patient complete on his/her own? 2 DRESSING - LOWER BODY - STEP 5: Does patient require total assistance for dressing below the waist such as the helper holding clothin g and performing basically all the activities? No. DRESSING - LOWER BODY - SCORE: 2-MAX TOILETING: TOILETING - STEP 1: Does the patient require the assistance of a person or device, or need extra time with toileting? Yes . TOILETING - STEP 2: Does the patient require the assistance of a helper? Yes. TOILETING - STEP 3: How much assistance does the patient require from the helper? Hands-on assistance from the helper TOILETING - STEP 4: Of the 3 tasks: 1) Adjusting clothing prior to use, 2) Cleansing of perineal area, 3) Adjusting clot merissa after use; How many tasks does the patient perform WITHOUT assistance of the helper? No tasks; h elper performs all three tasks TOILETING - SCORE: 1-DEP BLADDER MANAGEMENT: Activity did not occur on this shift BLADDER MANAGEMENT - SCORE: 7-IND BOWEL MANAGEMENT: Activity did not occur on this shift BOWEL MANAGEMENT - SCORE: 7-IND TRANSFERS: BED, CHAIR, WHEELCHAIR: Activity did not occur on this shift TRANSFERS: BED, CHAIR, WHEELCHAIR - SCORE: 0-UNK TRANSFERS: TOILET: Patient requires more than one helper and/or the use of a mechanical lift is utilized TRANSFERS: TOILET - SCORE: 1-DEP TRANSFERS: SHOWER: TRANSFERS: SHOWER - STEP 1: Does the patient require the assistance of a person or device, or need extra time with shower transfe rs? Yes. TRANSFERS: SHOWER - STEP 2: Does the patient require the assistance of a helper? Yes. TRANSFERS: SHOWER - STEP 3: How much assistance does the patient require from the helper? More than incidental help TRANSFERS: SHOWER - STEP 4: How much more help does the patient require from the helper? Lifting the patient up AND down from the wheelchair onto the shower chair TRANSFERS: SHOWER - SCORE: 2-MAX TRANSFERS: TUB: Activity did not occur on this shift TRANSFERS: TUB - SCORE: 0-UNK LOCOMOTION: WALK: Activity did not occur on this shift LOCOMOTION: WALK - SCORE: 0-UNK LOCOMOTION: WHEELCHAIR: Activity did not occur on this shift LOCOMOTION: WHEELCHAIR - SCORE: 0-UNK LOCOMOTION: STAIRS: Activity did not occur on this shift LOCOMOTION: STAIRS - SCORE: 0-UNK COMPREHENSION: COMPREHENSION: TYPE: Both COMPREHENSION - STEP 1: Does the patient require help from a person or device, or need extra time to understand complex and a bstract ideas (such as current events, finances, discharge planning, medical issues, relationships, e tc)? No. COMPREHENSION - STEP 2: Does the patient need extra time, require an assistive device (such as glasses for visual comprehensi on or a hearing aid for auditory comprehension) or does s/he have mild difficulty understanding compl ex and abstract information? Yes. COMPREHENSION - SCORE: 6-SILVESTRE EXPRESSION EXPRESSION: TYPE: Both EXPRESSION - STEP 1: Does the patient require help from a person or device, or need extra time expressing complex and abst ract ideas (such as current events, finances, discharge planning, medical issues, relationships, etc) ? No. EXPRESSION - STEP 2: Does the patient need extra time, require an assistive device (such as augmentive communication syste m or a communication board), OR does s/he have mild difficulty expressing complex and abstract ideas (including mild dysarthria or mild word-find problems)? Yes. EXPRESSION - SCORE: 6-SILVESTRE SOCIAL INTERACTION: SOCIAL INTERACTION - STEP 1: Does the patient require a helper to interact with others in social and therapeutic situations? No. SOCIAL INTERACTION - STEP 2: Does the patient need extra time in social situations, OR does s/he interact with staff, other patien ts, and family members ONLY in structured environments, OR does s/he require medication for social in teraction? Yes, patient requires medication for social interaction SOCIAL INTERACTION - SCORE: 6-SILVESTRE PROBLEM SOLVING: PROBLEM SOLVING - STEP 1: Does the patient need help from a person or device, or need extra time to solve complex problems such as managing a checking account or confronting interpersonal problems? Yes. PROBLEM SOLVING - STEP 2: Does the patient solve basic routine problems half or more of the time? Yes. PROBLEM SOLVING - STEP 3: How often does the patient need help to solve basic routine problems? 10%-24% of the time PROBLEM SOLVING - SCORE: 4-MIN MEMORY: MEMORY - STEP 1: Does the patient need help from a person or device, or need extra time to remember frequently encount ered people, daily routines, and executing requests? Yes. MEMORY - STEP 2: How often does the patient need help to remember frequently encountered people, daily routines, and e xecuting requests? 10% - 24% of the time MEMORY - SCORE: 4-MIN SIGNATURE PANEL: The following modified sections: Eating - Score, Grooming - Score, Bathing - Score, Dressing - Upper Body - Score, Dressing - Lower Body - Score, Toileting - Score, Transfers: Bed, Chair, Wheelchair - S core, Transfers: Toilet - Score, Transfers: Shower - Score, Transfers: Tub - Score, Comprehension - S core, Expression - Score, Social Interaction - Score, Problem Solving - Score, Memory - Score were [e lectronically] signed by Shanti Moreno OT on ThuJul 28 2018 18:16:39 T-0500 ([facility])
[2018-07-28] MEDS: DOCUSATE NA/SENNA CONC 1 TAB PO SCH (20:52)
[2018-07-28] MEDS: TAMSULOSIN 0.4 MG SR CAP PO SCH (20:52)
[2018-07-28] MEDS: ATORVASTATIN 10 MG TAB PO SCH (20:52)
[2018-07-28] MEDS: ALPRAZOLAM 1 MG TABLET PO PRN (20:52)
[2018-07-28] MEDS: POLYVINYL ALCOHOL 1.4% 15 ML EACH EYE PRN (20:53)
--- NOTE | 2018-07-28 21:59 | R.PN ---
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 SUBJECTIVE: Pt denied any Shortness of Breath. Pt denied any depression. Patient states that pain is under control. Hgb 11.7, prealbumin 20.7. Functional transfers done with total assistance. He requires total assistance for transfers using a lift. His legs buckle while attempting to stand. H e stood in the parallel bars with moderate assistance. Multiple sit to stand exercises done with min imum assistance. Propelled wheelchair with minimum assistance. left hip x-ray shows no fractures. Therapeutic exercises done with contact guard assistance and multiple rest breaks. VITAL SIGNS Temperature: 97.4 F SBP/DBP: 115/70 Pulse: 64 Resp: 16 MEDICATION ALLERGIES: No Known Drug Allergies (NKDA) ENVIRONMENTAL ALLERGIES: None Known - Substance Allergies None Known - Other Allergies None Known NURSING: - Shower allowing shower - Bladder care per protocol - Skin care per protocol PRECAUTIONS: - Weight Bearing Precaution WBAT left LE ACTIVITIES OOB only with supervision THERAPIES: - Occupational Therapy Evaluate and Treat. Visual Perceptual Training. Cognitive Retraining. - Speech Therapy Cognitive Training. Memory Strategies. Expressive Language Skills. Speech Intelligibility Training. R eceptive Language Skills. Dysphagia Therapy. - Physical Therapy Evaluate and Treat. PHYSICAL EXAM - Gen Alert and awake Lying in bed No apparent distress Oriented to: person, time, and place - Skin No beakdown No abnormalities - Eyes No abnormalities - ENMT No abnormalities - Neck No abnormalities - CVS RRR - Chest No abnormalities - Resp Clear to auscultation - Abd + bowel sounds - GI nondistended Deferred - No abnormalities - Ext Mild left lower extremity edema. - MSK 0/5 strength in the left upper extremity and 2+/5 weakness in left lower extremity. - Neuro 0/5 strength in the left upper extremity and 2+/5 weakness in left lower extremity. - Psych No abnormalities ASSESSMENT: Pt. is a 78 yo Right-handed white male.On 06/25/2018 Pt. presented to [facility] with sudden on set of left-side weakness.On 06/25/2018 he was admitted to [facility] with diagnosis Right MCA. His impairment category is Stroke 01 - Left Body (Right Brain) (01.1).Pre-morbidly, Pt. was independ ent/mod-I in Self-Care, Sphincter Control, Transfers Control, Locomotion, Communication, and Social C ognition; and he had good Sphincter Control.Currently, he has deficits of Self-Care, Transfers Contro l, Locomotion, Communication, Social Cognition, Endurance, Balance, and Safety Awareness.Pt. is now r eferred to [facility] for acute in-patient rehabilitation in order to maximize patient's functional independence in activities of daily living, strength, ROM, and mobility.- Rehab Goal Patient has realistic goal of being discharged at assistance level 6-Maria E to reside at Home with Fam linda/Relatives. MDM/PLAN: - Physical Therapy Gait dysfunction - to improve, our physical therapists will perform initial evaluation of pt's statu s upon admission and devise an individualized program for Gait Training, and Wheel Chair mobility Inability to transfer - to improve, our physical therapists will perform initial evaluation of pt's status upon admission and devise an individualized program for Bed mobility Need for home safety evaluation - to improve, our physical therapists will perform initial evaluatio n of pt's status upon admission and devise an individualized program for Home Evaluation Need in caregiver upon discharge - to improve, our physical therapists will perform initial evaluati on of pt's status upon admission and devise an individualized program for Caregiver Training Edema - to improve, our physical therapists will perform initial evaluation of pt's status upon admi ssion and devise an individualized program for Elevation Training, and Lymphedema Therapy New precaution - to improve, our physical therapists will perform initial evaluation of pt's status upon admission and devise an individualized program for Patient precaution education Poor balance - to improve, our physical therapists will perform initial evaluation of pt's status up on admission and devise an individualized program for Balance Training Poor endurance - to improve, our physical therapists will perform initial evaluation of pt's status upon admission and devise an individualized program for Endurance Training Weakness - to improve, our physical therapists will perform initial evaluation of pt's status upon a dmission and devise an individualized program for Aquatic Therapy, Neuromuscular Reeducation, and Str engthening Achieving independence - to improve, our physical therapists will perform initial evaluation of pt's status upon admission and devise an individualized program for Community Reintegration Activities - Occupational Therapy ADL deficits - to improve, our occupation therapists will perform initial evaluation of pt's status upon admission and devise an individualized program for Bathing, Bed mobility, Community Reintegratio n, Cooking, Dressing, Eating, Fine Motor Skills, Grooming, Homemaking, Kitchen Mobility, Laundry, Pat ient Education, Safety Awareness, Splinting - Positioning, Transfers(Toilet, Tub, Shower), and Wheel Chair Management Cognitive deficits - to improve, our occupation therapists will perform initial evaluation of pt's s tatus upon admission and devise an individualized program for Cognition - orientation Need for care director - to improve, our occupation therapists will perform initial evaluation of pt's status upon admission and devise an individualized program for Caregiver Training Weakness - to improve, our occupation therapists will perform initial evaluation of pt's status upon admission and devise an individualized program for Aquatic Therapy, Balance, Endurance, UE ROM, and UE strengthening - Diet Type Continue Regular - Diet - Liquid Texture Continue Thin - Tube Feed Continue N/A - Bladder care per protocol - Weight Bearing Precaution WBAT left LE - Skin care per protocol - Diet - Solid Texture Continue Regular Continue Mechanical Soft (Ground) - Shower allowing shower for Dementia, TBI, Stroke, or others FUNCTIONAL STATUS: UPDATED AT WEEKLY TEAM CONFERENCE - Bladder Same accident frequency: 7-Ind - No accidents in the past 7 days - Bowel Same accident frequency: 7-Ind - No accidents in the past 7 days - Walking Same score based on distance walked: 0(N/A) - Wheelchair Same score based on distance traveled: 0(N/A) FUNCTIONAL STATUS: - Self-Care A. Eating sup B. Grooming Anil C. Bathing maxA D. Dressing - Upper Anil E. Dressing - Lower maxA F. Toileting maxA - Sphincter Control G: Bladder control Ind H: Bowel control Ind - Transfers Control I. Bed/Chair/Wheelchair maxA J. Toilet maxA K. Tub/Shower ADNO - Locomotion L. Walk/Wheelchair (C) Dep L. Walk/Wheelchair (W) Dep M. Stairs ADNO - Communication N. Comprehension (B) Anil O. Expression (B) Anil - Social Cognition P. Social Interaction Anil Q. Problem Solving Anil R. Memory Anil - Endurance Fair - Balance Poor - Safety Awareness Fair CURRENT FUNC. DEFICITS: Self-Care, Transfers Control, Locomotion, Communication, Social Cognition, Endurance, Balance, and Sa fety Awareness SIGNATURE PANEL: (CDT)
--- NOTE | 2018-07-29 01:37 | FAST ---
SHIFT START DATE/TIME: 07/28/2018 19:00 (CDT) SHIFT END DATE/TIME: 07/29/2018 07:00 (CDT) NAME PRICE ROGERS DATE OF : 1940 DATE OF ADMISSION: 07/05/2018 18:33 (CDT) PHONE: AGE: 78 SSN# [id number] GENDER: Male ENCOUNTER PHYSICIAN: Dr. Abdirahman Zepeda M.D. 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 EATING: Activity did not occur on this shift EATING - SCORE: 0-UNK GROOMING: Activity did not occur on this shift GROOMING - SCORE: 0-UNK BATHING: Activity did not occur on this shift BATHING - SCORE: 0-UNK DRESSING - UPPER BODY: Patient is not dressing in public clothing ARTICLES SCORE Total number of steps: 0 DRESSING - UPPER BODY - SCORE: 0-UNK DRESSING - LOWER BODY: Patient is not dressing in public clothing ARTICLES SCORE Total number of steps: 0 DRESSING - LOWER BODY - SCORE: 0-UNK TOILETING: Activity did not occur on this shift TOILETING - SCORE: 0-UNK BLADDER MANAGEMENT: [place] removes incontinent device (Depends, pull ups, etc.); cleans the patient after accident / inco ntinent episode; and, applies new incontinent device. BLADDER MANAGEMENT - SCORE: 1-DEP BOWEL MANAGEMENT: Activity did not occur on this shift BOWEL MANAGEMENT - SCORE: 7-IND TRANSFERS: BED, CHAIR, WHEELCHAIR: Activity did not occur on this shift TRANSFERS: BED, CHAIR, WHEELCHAIR - SCORE: 0-UNK TRANSFERS: TOILET: Activity did not occur on this shift TRANSFERS: TOILET - SCORE: 0-UNK TRANSFERS: SHOWER: Activity did not occur on this shift TRANSFERS: SHOWER - SCORE: 0-UNK TRANSFERS: TUB: Activity did not occur on this shift TRANSFERS: TUB - SCORE: 0-UNK LOCOMOTION: WALK: Activity did not occur on this shift LOCOMOTION: WALK - SCORE: 0-UNK LOCOMOTION: WHEELCHAIR: Activity did not occur on this shift LOCOMOTION: WHEELCHAIR - SCORE: 0-UNK COMPREHENSION: COMPREHENSION: TYPE: Both COMPREHENSION - STEP 1: Does the patient require help from a person or device, or need extra time to understand complex and a bstract ideas (such as current events, finances, discharge planning, medical issues, relationships, e tc)? No. COMPREHENSION - STEP 2: Does the patient need extra time, require an assistive device (such as glasses for visual comprehensi on or a hearing aid for auditory comprehension) or does s/he have mild difficulty understanding compl ex and abstract information? Yes. COMPREHENSION - SCORE: 6-SILVESTRE EXPRESSION EXPRESSION: TYPE: Both EXPRESSION - STEP 1: Does the patient require help from a person or device, or need extra time expressing complex and abst ract ideas (such as current events, finances, discharge planning, medical issues, relationships, etc) ? No. EXPRESSION - STEP 2: Does the patient need extra time, require an assistive device (such as augmentive communication syste m or a communication board), OR does s/he have mild difficulty expressing complex and abstract ideas (including mild dysarthria or mild word-find problems)? No. EXPRESSION - SCORE: 7-IND SOCIAL INTERACTION: SOCIAL INTERACTION - STEP 1: Does the patient require a helper to interact with others in social and therapeutic situations? No. SOCIAL INTERACTION - STEP 2: Does the patient need extra time in social situations, OR does s/he interact with staff, other patien ts, and family members ONLY in structured environments, OR does s/he require medication for social in teraction? Yes, patient requires medication for social interaction SOCIAL INTERACTION - SCORE: 6-SILVESTRE PROBLEM SOLVING: PROBLEM SOLVING - STEP 1: Does the patient need help from a person or device, or need extra time to solve complex problems such as managing a checking account or confronting interpersonal problems? No. PROBLEM SOLVING - STEP 2: Does the patient require extra time to make decisions or solve problems, OR does s/he have slight dif ficulty reading, initiating, or self-correcting in unfamiliar situations? No. PROBLEM SOLVING - SCORE: 7-IND MEMORY: MEMORY - STEP 1: Does the patient need help from a person or device, or need extra time to remember frequently encount ered people, daily routines, and executing requests? No. MEMORY - STEP 2: Does the patient have slight difficulty recognizing frequently encountered people, daily routines, or executing requests without the need for repetition or using self-initiated or environmental cues to remember? No. MEMORY - SCORE: 7-IND SIGNATURE PANEL: The following modified sections: Eating - Score, Grooming - Score, Bathing - Score, Dressing - Upper Body - Score, Dressing - Lower Body - Score, Toileting - Score, Bladder Management - Score, Bowel Man agement - Score, Transfers: Bed, Chair, Wheelchair - Score, Transfers: Toilet - Score, Transfers: Melissa wer - Score, Transfers: Tub - Score, Locomotion: Walk - Score, Locomotion: Wheelchair - Score, Compre hension - Score, Expression - Score, Social Interaction - Score, Problem Solving - Score, Memory - Sc ore were [electronically] signed by Michelle Sanders CNA on ThuJul 29 2018 01:38:30 T-0500 ([place])
[2018-07-29 06:13] LABS: Absolute Lymphocytes (CBC) 1.4 K/uL (0.7-4.9); Basophils % 0.4 % (0-1.3); Hematocrit 36.5 % (39.6-49.0); MPV 8.6 fL (7.6-11.3); RBC Red Blood Cell Count 3.87 M/uL (4.33-5.43)
[2018-07-29 07:22] LABS: Albumin 2.9 g/dL (3.4-5.0); Potassium 4.2 mmol/L (3.5-5.1); Prealbumin 22.3 mg/dL (20-40)
[2018-07-29] MEDS: LIDOCAINE 5% PATCH TOP SCH (08:30)
[2018-07-29] MEDS: FLECAINIDE 100 MG TAB PO SCH ×2 (08:30→20:17)
[2018-07-29] MEDS: MAGNESIUM OXIDE 400 MG TAB PO SCH ×2 (08:31→20:17)
[2018-07-29] MEDS: VITAMIN D 5,000 UNIT CAP PO SCH (08:31)
[2018-07-29] MEDS: CRANBERRY FRUIT EXTRACT 200 MG CAP PO SCH ×2 (08:31→20:17)
[2018-07-29] MEDS: FUROSEMIDE 20 MG TABLET PO SCH (08:31)
[2018-07-29] MEDS: CITALOPRAM 10 MG TABLET PO SCH (08:31)
[2018-07-29] MEDS: LISINOPRIL 5 MG TAB PO SCH (08:31)
[2018-07-29] MEDS: CYANOCOBALAMIN 1,000 MCG TAB PO SCH (08:32)
[2018-07-29] MEDS: GABAPENTIN 300 MG CAP PO SCH ×3 (08:32→20:16)
[2018-07-29] MEDS: APIXABAN 2.5 MG TABLET PO SCH ×2 (08:32→20:17)
[2018-07-29] MEDS: TRAMADOL HCL 50 MG TAB PO PRN (08:37)
[2018-07-29] MEDS: VALSARTAN 80 MG TAB PO SCH (12:00)
--- NOTE | 2018-07-29 13:55 | FAST ---
SHIFT START DATE/TIME: 07/29/2018 07:00 (CDT) SHIFT END DATE/TIME: 07/29/2018 19:00 (CDT) NAME PRICE ROGERS DATE OF : 1940 DATE OF ADMISSION: 07/05/2018 18:33 (CDT) PHONE: AGE: 78 N# [id number] GENDER: Male ENCOUNTER PHYSICIAN: Dr. Abdirahman Zepeda M.D. 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 EATING: EATING - STEP 1: Does the patient require the assistance of a person or device, or need extra time when eating? Yes. EATING - STEP 2: Does the patient require the assistance of a helper? No, patient only requires an assistive device, O R s/he takes more than reasonable time to eat, OR there is a safety concern, OR s/he requires modifie d food consistency EATING - SCORE: 6-SILVESTRE GROOMING: Comb/brush hair Oral care Wash, rinse, and dry face Wash, rinse, and dry hands GROOMING - STEP 1: Does the patient require the assistance of a person or device, or need extra time when grooming? Yes. GROOMING - STEP 2: Does the patient require the assistance of a helper? No. The patient only requires an assistive devic e, OR takes more than reasonable time to groom, OR there is a concern for safety as the patient groom s GROOMING - SCORE: 6-SILVESTRE BATHING: Activity did not occur on this shift BATHING - SCORE: 0-UNK DRESSING - UPPER BODY: T-shirt/pullover shirt (four steps) ARTICLES SCORE Total number of steps: 4 DRESSING - UPPER BODY - STEP 1: Does the patient require help from a person or device, or need extra time when dressing above the [address]? Yes. DRESSING - UPPER BODY - STEP 2: Does the patient require the assistance of a helper? Yes. DRESSING - UPPER BODY - STEP 3: Does the helper touch the patient while dressing? Yes. DRESSING - UPPER BODY - STEP 4: How many of the total steps does the patient complete on his/her own? 2 DRESSING - UPPER BODY - SCORE: 3-MOD DRESSING - LOWER BODY: Elastic waist pants (three steps) Slip-on shoe - Left foot (one step) Slip-on shoe - Right foot (one step) Underwear (three steps) ARTICLES SCORE Total number of steps: 8 DRESSING - LOWER BODY - STEP 1: Does the patient require help from a person or device, or need extra time when dressing below the [address]? Yes. DRESSING - LOWER BODY - STEP 2: Does the patient require the assistance of a helper? Yes. DRESSING - LOWER BODY - STEP 3: Does the helper touch the patient while dressing? Yes. DRESSING - LOWER BODY - STEP 4: How many of the total steps does the patient complete on his/her own? 0 DRESSING - LOWER BODY - STEP 5: Does patient require total assistance for dressing below the waist such as the helper holding clothin g and performing basically all the activities? Yes. DRESSING - LOWER BODY - SCORE: 1-DEP TOILETING: TOILETING - STEP 1: Does the patient require the assistance of a person or device, or need extra time with toileting? Yes . TOILETING - STEP 2: Does the patient require the assistance of a helper? Yes. TOILETING - STEP 3: How much assistance does the patient require from the helper? Hands-on assistance from the helper TOILETING - STEP 4: Of the 3 tasks: 1) Adjusting clothing prior to use, 2) Cleansing of perineal area, 3) Adjusting clot merissa after use; How many tasks does the patient perform WITHOUT assistance of the helper? One task TOILETING - SCORE: 2-MAX BLADDER MANAGEMENT: BLADDER MANAGEMENT - STEP 1: Does the patient control the bladder completely and intentionally without equipment or devices or med ications, and is always continent? No. BLADDER MANAGEMENT - STEP 2: Does the patient require the assistance of a helper? Yes. BLADDER MANAGEMENT - STEP 3: How much assistance does the patient require from the helper? Patient requires contact assistance fro m the helper BLADDER MANAGEMENT - STEP 4: How much contact assistance does the patient require from the helper? Patient requires moderate mary tance, and performs 50% to 75% of bladder management tasks - Idalia positions AND holds urinal or bed benítez BLADDER MANAGEMENT - SCORE: 3-MOD BLADDER MANAGEMENT - FREQUENCY OF ACCIDENTS: BLADDER MANAGEMENT(FA) - STEP 1: How many accidents has the patient had during the current shift? 1 BOWEL MANAGEMENT: BOWEL MANAGEMENT - STEP 1: Does the patient control bowels completely and intentionally without equipment devices or medications AND is always continent? No. BOWEL MANAGEMENT - STEP 2: Does the patient require the assistance of a helper? No, patient requires medication for control such as stool softeners, suppositories, laxatives, enemas, or OTC medications BOWEL MANAGEMENT - SCORE: 6-SILVESTRE BOWEL MANAGEMENT - FREQUENCY OF ACCIDENTS: BOWEL MANAGEMENT(FA) - STEP 1: How many accidents has the patient had during the current shift? 0 TRANSFERS: BED, CHAIR, WHEELCHAIR: Patient requires more than one helper and/or the use of a mechanical lift is utilized TRANSFERS: BED, CHAIR, WHEELCHAIR - SCORE: 1-DEP TRANSFERS: TOILET: Patient requires more than one helper and/or the use of a mechanical lift is utilized TRANSFERS: TOILET - SCORE: 1-DEP TRANSFERS: SHOWER: Activity did not occur on this shift TRANSFERS: SHOWER - SCORE: 0-UNK TRANSFERS: TUB: Activity did not occur on this shift TRANSFERS: TUB - SCORE: 0-UNK LOCOMOTION: WALK: Activity did not occur on this shift LOCOMOTION: WALK - SCORE: 0-UNK LOCOMOTION: WHEELCHAIR: Activity did not occur on this shift LOCOMOTION: WHEELCHAIR - SCORE: 0-UNK COMPREHENSION: COMPREHENSION: TYPE: Both COMPREHENSION - STEP 1: Does the patient require help from a person or device, or need extra time to understand complex and a bstract ideas (such as current events, finances, discharge planning, medical issues, relationships, e tc)? No. COMPREHENSION - STEP 2: Does the patient need extra time, require an assistive device (such as glasses for visual comprehensi on or a hearing aid for auditory comprehension) or does s/he have mild difficulty understanding compl ex and abstract information? Yes. COMPREHENSION - SCORE: 6-SILVESTRE EXPRESSION EXPRESSION: TYPE: Both EXPRESSION - STEP 1: Does the patient require help from a person or device, or need extra time expressing complex and abst ract ideas (such as current events, finances, discharge planning, medical issues, relationships, etc) ? No. EXPRESSION - STEP 2: Does the patient need extra time, require an assistive device (such as augmentive communication syste m or a communication board), OR does s/he have mild difficulty expressing complex and abstract ideas (including mild dysarthria or mild word-find problems)? Yes. EXPRESSION - SCORE: 6-SILVESTRE SOCIAL INTERACTION: SOCIAL INTERACTION - STEP 1: Does the patient require a helper to interact with others in social and therapeutic situations? No. SOCIAL INTERACTION - STEP 2: Does the patient need extra time in social situations, OR does s/he interact with staff, other patien ts, and family members ONLY in structured environments, OR does s/he require medication for social in teraction? Yes, patient needs extra time SOCIAL INTERACTION - SCORE: 6-SILVESTRE PROBLEM SOLVING: PROBLEM SOLVING - STEP 1: Does the patient need help from a person or device, or need extra time to solve complex problems such as managing a checking account or confronting interpersonal problems? Yes. PROBLEM SOLVING - STEP 2: Does the patient solve basic routine problems half or more of the time? Yes. PROBLEM SOLVING - STEP 3: How often does the patient need help to solve basic routine problems? Less than 10% of the time PROBLEM SOLVING - SCORE: 5-SUP MEMORY: MEMORY - STEP 1: Does the patient need help from a person or device, or need extra time to remember frequently encount ered people, daily routines, and executing requests? No. MEMORY - STEP 2: Does the patient have slight difficulty recognizing frequently encountered people, daily routines, or executing requests without the need for repetition or using self-initiated or environmental cues to remember? Yes. MEMORY - SCORE: 6-SILVESTRE SIGNATURE PANEL: The following modified sections: Eating - Score, Grooming - Score, Bathing - Score, Dressing - Upper Body - Score, Dressing - Lower Body - Score, Toileting - Score, Bladder Management - Score, Bowel Man agement - Score, Transfers: Bed, Chair, Wheelchair - Score, Transfers: Toilet - Score, Transfers: Melissa wer - Score, Transfers: Tub - Score, Locomotion: Walk - Score, Locomotion: Wheelchair - Score, Compre hension - Score, Expression - Score, Social Interaction - Score, Problem Solving - Score, Memory - Sc ore were [electronically] signed by Penelope Medrano C.N.A. on ThuJul 29 2018 13:54:50 GMT-0500 (Centra l Daylight Time)
--- NOTE | 2018-07-29 16:15 | FAST ---
ENCOUNTER DATE AND TIME: 07/29/2018 08:00 (CDT) NAME PRICE ROGERS DATE OF : 1940 DATE OF ADMISSION: 07/05/2018 18:33 (CDT) PHONE: AGE: 78 SSN# [id number] GENDER: Male ENCOUNTER PHYSICIAN: Dr. Abdirahman Zepeda M.D. 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 EATING: Activity did not occur on this shift EATING - SCORE: 0-UNK GROOMING: Activity did not occur on this shift GROOMING - SCORE: 0-UNK BATHING: Activity did not occur on this shift BATHING - SCORE: 0-UNK DRESSING - UPPER BODY: Activity did not occur on this shift Patient is not dressing in public clothing ARTICLES SCORE Total number of steps: 0 DRESSING - UPPER BODY - SCORE: 0-UNK DRESSING - LOWER BODY: Activity did not occur on this shift Patient is not dressing in public clothing ARTICLES SCORE Total number of steps: 0 DRESSING - LOWER BODY - SCORE: 0-UNK TOILETING: Activity did not occur on this shift TOILETING - SCORE: 0-UNK BLADDER MANAGEMENT: Activity did not occur on this shift BLADDER MANAGEMENT - SCORE: 7-IND BOWEL MANAGEMENT: Activity did not occur on this shift BOWEL MANAGEMENT - SCORE: 7-IND TRANSFERS: BED, CHAIR, WHEELCHAIR: TRANSFERS: BED, CHAIR, WHEELCHAIR - STEP 1: Does the patient require assistance of a person or device, or need extra time with bed, chair, or whe elchair transfers? Yes. TRANSFERS: BED, CHAIR, WHEELCHAIR - STEP 2: Does the patient require the assistance of a helper? Yes. TRANSFERS: BED, CHAIR, WHEELCHAIR - STEP 3: How much assistance does the patient require from the helper? Lifting of the patient TRANSFERS: BED, CHAIR, WHEELCHAIR - STEP 4: Does the helper lift the patient ONLY up? ONLY down? Up AND Down? Up AND Down. TRANSFERS: BED, CHAIR, WHEELCHAIR - SCORE: 2-MAX TRANSFERS: TOILET: Activity did not occur on this shift TRANSFERS: TOILET - SCORE: 0-UNK TRANSFERS: SHOWER: Activity did not occur on this shift TRANSFERS: SHOWER - SCORE: 0-UNK TRANSFERS: TUB: Activity did not occur on this shift TRANSFERS: TUB - SCORE: 0-UNK LOCOMOTION: WALK: Activity did not occur on this shift LOCOMOTION: WALK - SCORE: 0-UNK LOCOMOTION: WHEELCHAIR: LOCOMOTION: WHEELCHAIR - STEP 1: Does the patient need help to go 150 feet in a wheelchair? Yes. LOCOMOTION: WHEELCHAIR - STEP 2: How much assistance does the patient need from the helper? Patient goes less than 150 feet - but more than 50 feet - with the assistance of only one helper LOCOMOTION: WHEELCHAIR - SCORE: 2-MAX LOCOMOTION: STAIRS: Activity did not occur on this shift LOCOMOTION: STAIRS - SCORE: 0-UNK COMPREHENSION: COMPREHENSION - SCORE: 0-UNK EXPRESSION EXPRESSION - SCORE: 0-UNK SOCIAL INTERACTION: SOCIAL INTERACTION - SCORE: 0-UNK PROBLEM SOLVING: PROBLEM SOLVING - SCORE: 0-UNK MEMORY: MEMORY - SCORE: 0-UNK SIGNATURE PANEL: The following modified sections: Transfers: Bed, Chair, Wheelchair - Score, Transfers: Toilet - Score , Locomotion: Walk - Score, Locomotion: Wheelchair - Score, Locomotion: Stairs - Score were [electron daphney] signed by Skip Phillips PT on ThuJul 29 2018 16:14:14 T-0500 (Central Daylight Time)
[2018-07-29] MEDS: ATORVASTATIN 10 MG TAB PO SCH (20:16)
[2018-07-29] MEDS: DOCUSATE NA/SENNA CONC 1 TAB PO SCH (20:16)
[2018-07-29] MEDS: TAMSULOSIN 0.4 MG SR CAP PO SCH (20:17)
[2018-07-29] MEDS: MELATONIN 3 MG TABLET PO PRN (20:17)
[2018-07-29] MEDS: ALPRAZOLAM 1 MG TABLET PO PRN (22:25)
[2018-07-30] MEDS: VITAMIN D 5,000 UNIT CAP PO SCH (07:11)
[2018-07-30] MEDS: CYANOCOBALAMIN 1,000 MCG TAB PO SCH (07:11)
[2018-07-30] MEDS: FLECAINIDE 100 MG TAB PO SCH ×2 (07:12→21:18)
[2018-07-30] MEDS: APIXABAN 2.5 MG TABLET PO SCH ×2 (07:12→21:17)
[2018-07-30] MEDS: CRANBERRY FRUIT EXTRACT 200 MG CAP PO SCH ×2 (07:12→21:17)
[2018-07-30] MEDS: HYDROCODONE/APAP 5/325 MG TAB PO PRN ×2 (07:13→12:26)
[2018-07-30] MEDS: CITALOPRAM 10 MG TABLET PO SCH (07:13)
[2018-07-30] MEDS: MAGNESIUM OXIDE 400 MG TAB PO SCH ×2 (07:13→21:17)
[2018-07-30] MEDS: FUROSEMIDE 20 MG TABLET PO SCH (07:15)
[2018-07-30] MEDS: LIDOCAINE 5% PATCH TOP SCH (07:16)
[2018-07-30] MEDS: LISINOPRIL 5 MG TAB PO SCH (07:16)
[2018-07-30] MEDS: GABAPENTIN 300 MG CAP PO SCH ×3 (08:48→21:16)
--- NOTE | 2018-07-30 09:44 | P.RH.PN ---
Estimated Length of Stay: 31 Expected Discharge Date: 08/03/18 Discharge Disposition Plan: Home Family Support: Yes Intermediate Goal: Mobility, Transfers, Self Care Vital Signs: Last Vital Signs Temp 98.2 F 07/29/18 19:25 Pulse 65 07/30/18 07:16 Resp 22 H 07/29/18 19:25 BP 108/54 L 07/30/18 07:16 Pulse Ox 95 07/29/18 19:25 Laboratory: Laboratory Last Values WBC 6.5 K/uL (4.3-10.9) 07/29/18 05:43 RBC 3.87 M/uL (4.33-5.43) L 07/29/18 05:43 Hgb 12.2 g/dL (13.6-17.9) L 07/29/18 05:43 Hct 36.5 % (39.6-49.0) L 07/29/18 05:43 MCV 94.2 fL (80-100) 07/29/18 05:43 MCH 31.6 pg (27.0-35.0) 07/29/18 05:43 MCHC 33.6 g/dL (32.0-36.0) 07/29/18 05:43 RDW 14.2 % (12.1-15.2) 07/29/18 05:43 Plt Count 224 K/uL (152-406) 07/29/18 05:43 MPV 8.6 fL (7.6-11.3) 07/29/18 05:43 Neutrophils % 62.4 % (41.7-73.7) 07/29/18 05:43 Lymphocytes % 22.0 % (15.3-44.8) 07/29/18 05:43 Monocytes % 8.8 % (3.3-12.3) 07/29/18 05:43 Eosinophils % 6.4 % (0-4.4) H 07/29/18 05:43 Basophils % 0.4 % (0-1.3) 07/29/18 05:43 Absolute Neutrophils 4.1 K/uL (1.8-8.0) 07/29/18 05:43 Absolute Lymphocytes 1.4 K/uL (0.7-4.9) 07/29/18 05:43 Absolute Monocytes 0.6 K/uL (0.1-1.3) 07/29/18 05:43 Absolute Eosinophils 0.4 K/uL (0-0.5) 07/29/18 05:43 Absolute Basophils 0.0 K/uL (0-0.5) 07/29/18 05:43 Sodium 142 mmol/L (136-145) 07/29/18 05:43 Potassium 4.2 mmol/L (3.5-5.1) 07/29/18 05:43 Chloride 106 mmol/L (98-107) 07/29/18 05:43 Carbon Dioxide 31 mmol/L (21-32) 07/29/18 05:43 BUN 15 mg/dL (7-18) 07/29/18 05:43 Creatinine 0.89 mg/dL (0.55-1.3) 07/29/18 05:43 Estimated GFR 83 mL/min (=/>90) L 07/29/18 05:43 Glucose 94 mg/dL (74-106) 07/29/18 05:43 Calcium 8.8 mg/dL (8.5-10.1) 07/29/18 05:43 Magnesium 2.3 mg/dL (1.8-2.4) 07/22/18 05:38 Total Bilirubin 0.7 mg/dL (0.2-1.0) 07/06/18 06:04 Direct Bilirubin 0.2 mg/dL (0-0.2) 07/06/18 06:04 AST 25 U/L (15-37) 07/06/18 06:04 ALT 29 U/L (12-78) 07/06/18 06:04 Alkaline Phosphatase 94 U/L (45-117) 07/06/18 06:04 Serum Total Protein 7.0 g/dL (6.4-8.2) 07/06/18 06:04 Albumin 2.9 g/dL (3.4-5.0) L 07/29/18 05:43 Globulin 3.9 g/dL (2.3-3.5) H 07/06/18 06:04 Albumin/Globulin Ratio 0.8 (1.1-1.8) L 07/06/18 06:04 Prealbumin 22.3 mg/dL (20-40) 07/29/18 05:43 Urine Color Yellow 07/11/18 10:59 Urine Appearance Clear 07/11/18 10:59 Urine pH 6.0 (5.0-7.0) 07/11/18 10:59 Ur Specific [place] 1.020 (1.005-1.030) 07/11/18 10:59 Urine Ketones Negative (NEG) 07/11/18 10:59 Urine Blood Negative (NEG) 07/11/18 10:59 Urine Nitrite Negative (NEG) 07/11/18 10:59 Urine Bilirubin Negative (NEG) 07/11/18 10:59 Urine Urobilinogen 1.0 mg/dL (0.2-1.0) 07/11/18 10:59 Ur Leukocyte Esterase Trace (NEG) H 07/11/18 10:59 Urine RBC <5 /HPF (NONE SEEN) 07/11/18 10:59 Urine WBC <5 /HPF (<5) 07/11/18 10:59 Ur Squamous Epith Cells 5-10 /HPF (NONE SEEN) H 07/11/18 10:59 Urine Bacteria <20 /HPF (NONE SEEN) 07/11/18 10:59 Urine Mucus Slight /HPF (NONE SEEN) 07/07/18 00:10 Urine Culture Reflexed Not needed 07/11/18 10:59 Urine Glucose Negative (NEG) 07/11/18 10:59 Urine Total Protein Negative (NEG) 07/11/18 10:59 Weight: 206 lb 8 oz Wound Present: No Closed Surgical Incision Present: No Negative Pressure Wound Therapy Present: No Physician Update: He is stable and has plateaued. 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 He is maximum assistance with his transfers. Walked 7' x 5 times in the parallel bars. He stands up with stanby assistance. His labs are stable. He will be discharge to [facility] next week. Medical Issues: DVT Prophylaxis - Eliquis 2.5mg BID Pain Issues: [place] 5/325mg Q6H PRN. Tramadol 50mg Q6H PRN. Lidocaine pacth 5% Daily Comment: Right Groin wound healed Functional Improvement: pt has demonstrated improvement with functional mobility and transfers. pt continues to exhibit difficulty with control and strength of L side particularly control of the L Knee. pt unable to maintain terminal knee extension. pt requires significant assist during functional transfers and mobility. Functional Improvement Occupational Therapy: Patient has demonstrated significant improvement toward OT goals. However, due to patient's, also significant weakness, continues to demonstrate symptoms of depression, requiring frequent resting breaks and verbal encouragement. Patient would benefit form further agressive OT at inpatient rehabilitation facility to address the goals as set in POC before d/c. Speech Therapy Update: Pt. is at MOD I for Auditory Comprehension, Social Interaction, Problem Solving, and Memory. Pt. is at MIN A to SUPV to Verbal Expression for consistent, correct use of compensatory dysarthria strategies to reduce speech rate and increase overall intelligibility. Pt. tolerates regular solids/thin liquids without difficulty. Summary: Patient's care plan and jail goals have been reviewed and revised as necessary. Please see the Rehabilitation Signature page for all necessary signatures.
[2018-07-30] MEDS: VALSARTAN 80 MG TAB PO SCH (12:00)
--- NOTE | 2018-07-30 16:36 | FAST ---
ENCOUNTER DATE AND TIME: 07/30/2018 08:00 (CDT) NAME PRICE ROGERS DATE OF : 1940 DATE OF ADMISSION: 07/05/2018 18:33 (CDT) PHONE: AGE: 78 SSN# [id number] GENDER: Male ENCOUNTER PHYSICIAN: Dr. Abdirahman Zepeda M.D. 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 EATING: Activity did not occur on this shift EATING - SCORE: 0-UNK GROOMING: Activity did not occur on this shift GROOMING - SCORE: 0-UNK BATHING: Activity did not occur on this shift BATHING - SCORE: 0-UNK DRESSING - UPPER BODY: Activity did not occur on this shift Patient is not dressing in public clothing ARTICLES SCORE Total number of steps: 0 DRESSING - UPPER BODY - SCORE: 0-UNK DRESSING - LOWER BODY: Activity did not occur on this shift Patient is not dressing in public clothing ARTICLES SCORE Total number of steps: 0 DRESSING - LOWER BODY - SCORE: 0-UNK TOILETING: Activity did not occur on this shift TOILETING - SCORE: 0-UNK BLADDER MANAGEMENT: Activity did not occur on this shift BLADDER MANAGEMENT - SCORE: 7-IND BOWEL MANAGEMENT: Activity did not occur on this shift BOWEL MANAGEMENT - SCORE: 7-IND TRANSFERS: BED, CHAIR, WHEELCHAIR: Activity did not occur on this shift TRANSFERS: BED, CHAIR, WHEELCHAIR - SCORE: 0-UNK TRANSFERS: TOILET: Activity did not occur on this shift TRANSFERS: TOILET - SCORE: 0-UNK TRANSFERS: SHOWER: Activity did not occur on this shift TRANSFERS: SHOWER - SCORE: 0-UNK TRANSFERS: TUB: Activity did not occur on this shift TRANSFERS: TUB - SCORE: 0-UNK LOCOMOTION: WALK: Activity did not occur on this shift LOCOMOTION: WALK - SCORE: 0-UNK LOCOMOTION: WHEELCHAIR: LOCOMOTION: WHEELCHAIR - STEP 1: Does the patient need help to go 150 feet in a wheelchair? Yes. LOCOMOTION: WHEELCHAIR - STEP 2: How much assistance does the patient need from the helper? Patient goes less than 150 feet - but more than 50 feet - with the assistance of only one helper LOCOMOTION: WHEELCHAIR - SCORE: 2-MAX LOCOMOTION: STAIRS: Activity did not occur on this shift LOCOMOTION: STAIRS - SCORE: 0-UNK COMPREHENSION: COMPREHENSION - SCORE: 0-UNK EXPRESSION EXPRESSION - SCORE: 0-UNK SOCIAL INTERACTION: SOCIAL INTERACTION - SCORE: 0-UNK PROBLEM SOLVING: PROBLEM SOLVING - SCORE: 0-UNK MEMORY: MEMORY - SCORE: 0-UNK SIGNATURE PANEL: The following modified sections: Transfers: Bed, Chair, Wheelchair - Score, Transfers: Toilet - Score , Locomotion: Walk - Score, Locomotion: Wheelchair - Score, Locomotion: Stairs - Score were [electron ically] signed by Skip Phillips, PT on ThuJul 30 2018 16:35:45 T-0500 (Central Daylight Time)
--- NOTE | 2018-07-30 16:55 | FAST ---
SHIFT START DATE/TIME: 07/30/2018 07:00 (CDT) SHIFT END DATE/TIME: 07/30/2018 19:00 (CDT) NAME PRICE ROGERS DATE OF : 1940 DATE OF ADMISSION: 07/05/2018 18:33 (CDT) PHONE: AGE: 78 N# [id number] GENDER: Male ENCOUNTER PHYSICIAN: Dr. Abdirahman Zepeda M.D. 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 EATING: EATING - STEP 1: Does the patient require the assistance of a person or device, or need extra time when eating? Yes. EATING - STEP 2: Does the patient require the assistance of a helper? Yes. EATING - STEP 3: Does the patient perform half or more of the eating tasks? Yes. EATING - STEP 4: Does the patient need only supervision, cuing, coaxing OR help to apply an orthosis OR help to cut fo od, open containers, pour liquids, or butter bread? Yes. EATING - SCORE: 5-SUP GROOMING: Activity did not occur on this shift GROOMING - SCORE: 0-UNK BATHING: Activity did not occur on this shift BATHING - SCORE: 0-UNK DRESSING - UPPER BODY: Activity did not occur on this shift ARTICLES SCORE Total number of steps: 0 DRESSING - UPPER BODY - SCORE: 0-UNK DRESSING - LOWER BODY: Activity did not occur on this shift ARTICLES SCORE Total number of steps: 0 DRESSING - LOWER BODY - SCORE: 0-UNK TOILETING: TOILETING - STEP 1: Does the patient require the assistance of a person or device, or need extra time with toileting? Yes . TOILETING - STEP 2: Does the patient require the assistance of a helper? Yes. TOILETING - STEP 3: How much assistance does the patient require from the helper? Hands-on assistance from the helper TOILETING - STEP 4: Of the 3 tasks: 1) Adjusting clothing prior to use, 2) Cleansing of perineal area, 3) Adjusting clot merissa after use; How many tasks does the patient perform WITHOUT assistance of the helper? No tasks; h elper performs all three tasks TOILETING - SCORE: 1-DEP BLADDER MANAGEMENT: [place] removes incontinent device (Depends, pull ups, etc.); cleans the patient after accident / inco ntinent episode; and, applies new incontinent device. BLADDER MANAGEMENT - SCORE: 1-DEP BLADDER MANAGEMENT - FREQUENCY OF ACCIDENTS: BLADDER MANAGEMENT(FA) - STEP 1: How many accidents has the patient had during the current shift? 1 BOWEL MANAGEMENT: [place] removes incontinent device (depends, pull ups, etc.); cleans the patient after accident / inco ntinent episode; and, applies new device (depends, pull-ups, padding, etc.). BOWEL MANAGEMENT - SCORE: 1-DEP BOWEL MANAGEMENT - FREQUENCY OF ACCIDENTS: BOWEL MANAGEMENT(FA) - STEP 1: How many accidents has the patient had during the current shift? 0 TRANSFERS: BED, CHAIR, WHEELCHAIR: TRANSFERS: BED, CHAIR, WHEELCHAIR - STEP 1: Does the patient require assistance of a person or device, or need extra time with bed, chair, or whe elchair transfers? Yes. TRANSFERS: BED, CHAIR, WHEELCHAIR - STEP 2: Does the patient require the assistance of a helper? Yes. TRANSFERS: BED, CHAIR, WHEELCHAIR - STEP 3: How much assistance does the patient require from the helper? Lifting of the patient TRANSFERS: BED, CHAIR, WHEELCHAIR - STEP 4: Does the helper lift the patient ONLY up? ONLY down? Up AND Down? Up AND Down. TRANSFERS: BED, CHAIR, WHEELCHAIR - SCORE: 2-MAX TRANSFERS: TOILET: TRANSFERS: TOILET - STEP 1: Does the patient require the assistance of a person or device, or need extra time with toilet transfe rs? Yes. TRANSFERS: TOILET - STEP 2: Does the patient require the assistance of a helper? Yes. TRANSFERS: TOILET - STEP 3: How much assistance does the patient require from the helper? Patient performs less than half of the transferring tasks TRANSFERS: TOILET - STEP 4: Does the patient require total assistance for the toilet transfer such as the helper doing basically all the lifting? Yes. TRANSFERS: TOILET - SCORE: 1-DEP TRANSFERS: SHOWER: Activity did not occur on this shift TRANSFERS: SHOWER - SCORE: 0-UNK TRANSFERS: TUB: Activity did not occur on this shift TRANSFERS: TUB - SCORE: 0-UNK LOCOMOTION: WALK: Activity did not occur on this shift LOCOMOTION: WALK - SCORE: 0-UNK LOCOMOTION: WHEELCHAIR: Activity did not occur on this shift LOCOMOTION: WHEELCHAIR - SCORE: 0-UNK COMPREHENSION: COMPREHENSION - SCORE: 0-UNK EXPRESSION EXPRESSION - SCORE: 0-UNK SOCIAL INTERACTION: SOCIAL INTERACTION - SCORE: 0-UNK PROBLEM SOLVING: PROBLEM SOLVING - SCORE: 0-UNK MEMORY: MEMORY - SCORE: 0-UNK SIGNATURE PANEL: The following modified sections: Eating - Score, Grooming - Score, Bathing - Score, Dressing - Upper Body - Score, Dressing - Lower Body - Score, Toileting - Score, Bladder Management - Score, Bowel Man agement - Score, Transfers: Bed, Chair, Wheelchair - Score, Transfers: Toilet - Score, Transfers: Melissa wer - Score, Transfers: Tub - Score, Locomotion: Walk - Score, Locomotion: Wheelchair - Score, Compre hension - Score, Expression - Score, Social Interaction - Score, Problem Solving - Score, Memory - Sc ore were [electronically] signed by Pily Conrad CNA on ThuJul 30 2018 16:54:20 T-0500 (Centra l Daylight Time)
[2018-07-30] MEDS: MELATONIN 3 MG TABLET PO PRN (21:17)
[2018-07-30] MEDS: DOCUSATE NA/SENNA CONC 1 TAB PO SCH (21:17)
[2018-07-30] MEDS: ATORVASTATIN 10 MG TAB PO SCH (21:17)
[2018-07-30] MEDS: TAMSULOSIN 0.4 MG SR CAP PO SCH (21:17)
[2018-07-30] MEDS: ALPRAZOLAM 1 MG TABLET PO PRN (22:03)
--- NOTE | 2018-07-31 02:42 | FAST ---
SHIFT START DATE/TIME: 07/30/2018 19:00 (CDT) SHIFT END DATE/TIME: 07/31/2018 07:00 (CDT) NAME PRICE ROGERS DATE OF : 1940 DATE OF ADMISSION: 07/05/2018 18:33 (CDT) PHONE: AGE: 78 N# [id number] GENDER: Male ENCOUNTER PHYSICIAN: Dr. Abdirahman Zepeda M.D. 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 EATING: Activity did not occur on this shift EATING - SCORE: 0-UNK GROOMING: Activity did not occur on this shift GROOMING - SCORE: 0-UNK BATHING: Activity did not occur on this shift BATHING - SCORE: 0-UNK DRESSING - UPPER BODY: Patient is not dressing in public clothing ARTICLES SCORE Total number of steps: 0 DRESSING - UPPER BODY - SCORE: 0-UNK DRESSING - LOWER BODY: Patient is not dressing in public clothing ARTICLES SCORE Total number of steps: 0 DRESSING - LOWER BODY - SCORE: 0-UNK TOILETING: TOILETING - STEP 1: Does the patient require the assistance of a person or device, or need extra time with toileting? Yes . TOILETING - STEP 2: Does the patient require the assistance of a helper? Yes. TOILETING - STEP 3: How much assistance does the patient require from the helper? Hands-on assistance from the helper TOILETING - STEP 4: Of the 3 tasks: 1) Adjusting clothing prior to use, 2) Cleansing of perineal area, 3) Adjusting clot merissa after use; How many tasks does the patient perform WITHOUT assistance of the helper? No tasks; h raquel performs all three tasks TOILETING - SCORE: 1-DEP BLADDER MANAGEMENT: BLADDER MANAGEMENT - STEP 1: Does the patient control the bladder completely and intentionally without equipment or devices or med ications, and is always continent? No. BLADDER MANAGEMENT - STEP 2: Does the patient require the assistance of a helper? Yes. BLADDER MANAGEMENT - STEP 3: How much assistance does the patient require from the helper? Patient requires contact assistance fro m the helper BLADDER MANAGEMENT - STEP 4: How much contact assistance does the patient require from the helper? Patient requires moderate mary tance, and performs 50% to 75% of bladder management tasks - [place] positions AND holds urinal or bed benítez BLADDER MANAGEMENT - SCORE: 3-MOD BOWEL MANAGEMENT: Activity did not occur on this shift BOWEL MANAGEMENT - SCORE: 7-IND TRANSFERS: BED, CHAIR, WHEELCHAIR: Activity did not occur on this shift TRANSFERS: BED, CHAIR, WHEELCHAIR - SCORE: 0-UNK TRANSFERS: TOILET: Activity did not occur on this shift TRANSFERS: TOILET - SCORE: 0-UNK TRANSFERS: SHOWER: Activity did not occur on this shift TRANSFERS: SHOWER - SCORE: 0-UNK TRANSFERS: TUB: Activity did not occur on this shift TRANSFERS: TUB - SCORE: 0-UNK LOCOMOTION: WALK: Activity did not occur on this shift LOCOMOTION: WALK - SCORE: 0-UNK LOCOMOTION: WHEELCHAIR: Activity did not occur on this shift LOCOMOTION: WHEELCHAIR - SCORE: 0-UNK COMPREHENSION: COMPREHENSION: TYPE: Both COMPREHENSION - STEP 1: Does the patient require help from a person or device, or need extra time to understand complex and a bstract ideas (such as current events, finances, discharge planning, medical issues, relationships, e tc)? No. COMPREHENSION - STEP 2: Does the patient need extra time, require an assistive device (such as glasses for visual comprehensi on or a hearing aid for auditory comprehension) or does s/he have mild difficulty understanding compl ex and abstract information? Yes. COMPREHENSION - SCORE: 6-SILVESTRE EXPRESSION EXPRESSION: TYPE: Both EXPRESSION - STEP 1: Does the patient require help from a person or device, or need extra time expressing complex and abst ract ideas (such as current events, finances, discharge planning, medical issues, relationships, etc) ? No. EXPRESSION - STEP 2: Does the patient need extra time, require an assistive device (such as augmentive communication syste m or a communication board), OR does s/he have mild difficulty expressing complex and abstract ideas (including mild dysarthria or mild word-find problems)? Yes. EXPRESSION - SCORE: 6-SILVESTRE SOCIAL INTERACTION: SOCIAL INTERACTION - STEP 1: Does the patient require a helper to interact with others in social and therapeutic situations? No. SOCIAL INTERACTION - STEP 2: Does the patient need extra time in social situations, OR does s/he interact with staff, other patien ts, and family members ONLY in structured environments, OR does s/he require medication for social in teraction? Yes, patient needs extra time SOCIAL INTERACTION - SCORE: 6-SILVESTRE PROBLEM SOLVING: PROBLEM SOLVING - STEP 1: Does the patient need help from a person or device, or need extra time to solve complex problems such as managing a checking account or confronting interpersonal problems? No. PROBLEM SOLVING - STEP 2: Does the patient require extra time to make decisions or solve problems, OR does s/he have slight dif ficulty reading, initiating, or self-correcting in unfamiliar situations? No. PROBLEM SOLVING - SCORE: 7-IND MEMORY: MEMORY - STEP 1: Does the patient need help from a person or device, or need extra time to remember frequently encount ered people, daily routines, and executing requests? No. MEMORY - STEP 2: Does the patient have slight difficulty recognizing frequently encountered people, daily routines, or executing requests without the need for repetition or using self-initiated or environmental cues to remember? Yes. MEMORY - SCORE: 6-SILVESTRE
[2018-07-31] MEDS: LIDOCAINE 5% PATCH TOP SCH ×2 (08:18→11:39)
[2018-07-31] MEDS: MAGNESIUM OXIDE 400 MG TAB PO SCH ×2 (08:19→20:49)
[2018-07-31] MEDS: CRANBERRY FRUIT EXTRACT 200 MG CAP PO SCH ×2 (08:19→20:49)
[2018-07-31] MEDS: GABAPENTIN 300 MG CAP PO SCH ×3 (08:19→20:50)
[2018-07-31] MEDS: VITAMIN D 5,000 UNIT CAP PO SCH (08:19)
[2018-07-31] MEDS: CYANOCOBALAMIN 1,000 MCG TAB PO SCH (08:20)
[2018-07-31] MEDS: CITALOPRAM 10 MG TABLET PO SCH (08:20)
[2018-07-31] MEDS: APIXABAN 2.5 MG TABLET PO SCH ×2 (08:20→20:50)
[2018-07-31] MEDS: FUROSEMIDE 20 MG TABLET PO SCH (08:21)
[2018-07-31] MEDS: LISINOPRIL 5 MG TAB PO SCH (08:22)
[2018-07-31] MEDS: FLECAINIDE 100 MG TAB PO SCH ×2 (08:23→20:50)
[2018-07-31] MEDS: VALSARTAN 80 MG TAB PO SCH (12:00)
[2018-07-31] MEDS: ATORVASTATIN 10 MG TAB PO SCH (20:49)
[2018-07-31] MEDS: TAMSULOSIN 0.4 MG SR CAP PO SCH (20:50)
[2018-07-31] MEDS: DOCUSATE NA/SENNA CONC 1 TAB PO SCH (20:51)
[2018-07-31] MEDS: ALPRAZOLAM 1 MG TABLET PO PRN (20:53)
[2018-07-31] MEDS: POLYVINYL ALCOHOL 1.4% 15 ML EACH EYE PRN (21:28)
[2018-07-31] MEDS: HYDROCORTISONE 1 % CREAM 30GM TOP PRN (21:28)
[2018-07-31 21:54] VITALS: O2SAT 94
--- NOTE | 2018-08-01 01:40 | FAST ---
SHIFT START DATE/TIME: 07/31/2018 19:00 (CDT) SHIFT END DATE/TIME: 08/01/2018 07:00 (CDT) NAME PRICE ROGERS DATE OF : 1940 DATE OF ADMISSION: 07/05/2018 18:33 (CDT) PHONE: AGE: 78 SSN# [id number] GENDER: Male ENCOUNTER PHYSICIAN: Dr. Abdirahman Zepeda M.D. 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 EATING: Activity did not occur on this shift EATING - SCORE: 0-UNK GROOMING: Activity did not occur on this shift GROOMING - SCORE: 0-UNK BATHING: Activity did not occur on this shift BATHING - SCORE: 0-UNK DRESSING - UPPER BODY: Activity did not occur on this shift ARTICLES SCORE Total number of steps: 0 DRESSING - UPPER BODY - SCORE: 0-UNK DRESSING - LOWER BODY: Activity did not occur on this shift ARTICLES SCORE Total number of steps: 0 DRESSING - LOWER BODY - SCORE: 0-UNK TOILETING: TOILETING - SCORE: 0-UNK BLADDER MANAGEMENT: [place] removes incontinent device (Depends, pull ups, etc.); cleans the patient after accident / inco ntinent episode; and, applies new incontinent device. BLADDER MANAGEMENT - SCORE: 1-DEP BLADDER MANAGEMENT - FREQUENCY OF ACCIDENTS: BLADDER MANAGEMENT(FA) - STEP 1: How many accidents has the patient had during the current shift? 0 BOWEL MANAGEMENT: Activity did not occur on this shift BOWEL MANAGEMENT - SCORE: 7-IND BOWEL MANAGEMENT - FREQUENCY OF ACCIDENTS: BOWEL MANAGEMENT(FA) - STEP 1: How many accidents has the patient had during the current shift? 0 TRANSFERS: BED, CHAIR, WHEELCHAIR: Activity did not occur on this shift TRANSFERS: BED, CHAIR, WHEELCHAIR - SCORE: 0-UNK TRANSFERS: TOILET: Activity did not occur on this shift TRANSFERS: TOILET - SCORE: 0-UNK TRANSFERS: SHOWER: Activity did not occur on this shift TRANSFERS: SHOWER - SCORE: 0-UNK TRANSFERS: TUB: Activity did not occur on this shift TRANSFERS: TUB - SCORE: 0-UNK LOCOMOTION: WALK: Activity did not occur on this shift LOCOMOTION: WALK - SCORE: 0-UNK LOCOMOTION: WHEELCHAIR: Activity did not occur on this shift LOCOMOTION: WHEELCHAIR - SCORE: 0-UNK COMPREHENSION: COMPREHENSION: TYPE: Both COMPREHENSION - STEP 1: Does the patient require help from a person or device, or need extra time to understand complex and a bstract ideas (such as current events, finances, discharge planning, medical issues, relationships, e tc)? No. COMPREHENSION - STEP 2: Does the patient need extra time, require an assistive device (such as glasses for visual comprehensi on or a hearing aid for auditory comprehension) or does s/he have mild difficulty understanding compl ex and abstract information? Yes. COMPREHENSION - SCORE: 6-SILVESTRE EXPRESSION EXPRESSION: TYPE: Both EXPRESSION - STEP 1: Does the patient require help from a person or device, or need extra time expressing complex and abst ract ideas (such as current events, finances, discharge planning, medical issues, relationships, etc) ? No. EXPRESSION - STEP 2: Does the patient need extra time, require an assistive device (such as augmentive communication syste m or a communication board), OR does s/he have mild difficulty expressing complex and abstract ideas (including mild dysarthria or mild word-find problems)? Yes. EXPRESSION - SCORE: 6-SILVESTRE SOCIAL INTERACTION: SOCIAL INTERACTION - STEP 1: Does the patient require a helper to interact with others in social and therapeutic situations? No. SOCIAL INTERACTION - STEP 2: Does the patient need extra time in social situations, OR does s/he interact with staff, other patien ts, and family members ONLY in structured environments, OR does s/he require medication for social in teraction? Yes, patient requires medication for social interaction SOCIAL INTERACTION - SCORE: 6-SILVESTRE PROBLEM SOLVING: PROBLEM SOLVING - STEP 1: Does the patient need help from a person or device, or need extra time to solve complex problems such as managing a checking account or confronting interpersonal problems? No. PROBLEM SOLVING - STEP 2: Does the patient require extra time to make decisions or solve problems, OR does s/he have slight dif ficulty reading, initiating, or self-correcting in unfamiliar situations? Yes, patient needs extra ti me. PROBLEM SOLVING - SCORE: 6-SILVESTRE MEMORY: MEMORY - STEP 1: Does the patient need help from a person or device, or need extra time to remember frequently encount ered people, daily routines, and executing requests? No. MEMORY - STEP 2: Does the patient have slight difficulty recognizing frequently encountered people, daily routines, or executing requests without the need for repetition or using self-initiated or environmental cues to remember? Yes. MEMORY - SCORE: 6-SILVESTRE SIGNATURE PANEL: The following modified sections: Eating - Score, Grooming - Score, Bathing - Score, Dressing - Upper Body - Score, Dressing - Lower Body - Score, Bladder Management - Score, Bowel Management - Score, Tr ansfers: Bed, Chair, Wheelchair - Score, Transfers: Toilet - Score, Transfers: Shower - Score, Transf ers: Tub - Score, Locomotion: Walk - Score, Locomotion: Wheelchair - Score, Comprehension - Score, Ex pression - Score, Social Interaction - Score, Problem Solving - Score, Memory - Score were [tarshai mele] signed by Emma Latif RN on ThuAug 01 2018 01:39:36 GMT-0500 (Central Daylight Time)
[2018-08-01] MEDS: CRANBERRY FRUIT EXTRACT 200 MG CAP PO SCH ×2 (08:30→20:59)
[2018-08-01] MEDS: LIDOCAINE 5% PATCH TOP SCH (08:30)
[2018-08-01] MEDS: VITAMIN D 5,000 UNIT CAP PO SCH (08:31)
[2018-08-01] MEDS: FUROSEMIDE 20 MG TABLET PO SCH (08:31)
[2018-08-01] MEDS: MAGNESIUM OXIDE 400 MG TAB PO SCH ×2 (08:31→21:00)
[2018-08-01] MEDS: LISINOPRIL 5 MG TAB PO SCH (08:32)
[2018-08-01] MEDS: CITALOPRAM 10 MG TABLET PO SCH (08:32)
[2018-08-01] MEDS: APIXABAN 2.5 MG TABLET PO SCH ×2 (08:32→21:00)
[2018-08-01] MEDS: GABAPENTIN 300 MG CAP PO SCH ×3 (08:33→21:00)
[2018-08-01] MEDS: FLECAINIDE 100 MG TAB PO SCH ×2 (08:33→21:00)
[2018-08-01] MEDS: CYANOCOBALAMIN 1,000 MCG TAB PO SCH (08:33)
[2018-08-01] MEDS: ACETAMINOPHEN 500 MG TAB PO PRN (08:34)
[2018-08-01] MEDS: POLYVINYL ALCOHOL 1.4% 15 ML EACH EYE PRN ×2 (11:13→21:01)
[2018-08-01] MEDS: VALSARTAN 80 MG TAB PO SCH (13:00)
[2018-08-01] MEDS: DOCUSATE NA/SENNA CONC 1 TAB PO SCH (21:00)
[2018-08-01] MEDS: TAMSULOSIN 0.4 MG SR CAP PO SCH (21:00)
[2018-08-01] MEDS: ATORVASTATIN 10 MG TAB PO SCH (21:00)
[2018-08-01] MEDS: ALPRAZOLAM 1 MG TABLET PO PRN (21:02)
[2018-08-01] MEDS: HYDROCORTISONE 1 % CREAM 30GM TOP PRN (21:03)
--- NOTE | 2018-08-02 04:04 | FAST ---
SHIFT START DATE/TIME: 08/01/2018 19:00 (CDT) SHIFT END DATE/TIME: 08/02/2018 07:00 (CDT) NAME PRICE ROGERS DATE OF : 1940 DATE OF ADMISSION: 07/05/2018 18:33 (CDT) PHONE: AGE: 78 N# [id number] GENDER: Male ENCOUNTER PHYSICIAN: Dr. Abdirahman Zepeda M.D. 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 EATING: Activity did not occur on this shift EATING - SCORE: 0-UNK GROOMING: Activity did not occur on this shift GROOMING - SCORE: 0-UNK BATHING: Activity did not occur on this shift BATHING - SCORE: 0-UNK DRESSING - UPPER BODY: Patient is not dressing in public clothing ARTICLES SCORE Total number of steps: 0 DRESSING - UPPER BODY - SCORE: 0-UNK DRESSING - LOWER BODY: Patient is not dressing in public clothing ARTICLES SCORE Total number of steps: 0 DRESSING - LOWER BODY - SCORE: 0-UNK TOILETING: TOILETING - STEP 1: Does the patient require the assistance of a person or device, or need extra time with toileting? Yes . TOILETING - STEP 2: Does the patient require the assistance of a helper? Yes. TOILETING - STEP 3: How much assistance does the patient require from the helper? Hands-on assistance from the helper TOILETING - STEP 4: Of the 3 tasks: 1) Adjusting clothing prior to use, 2) Cleansing of perineal area, 3) Adjusting clot merissa after use; How many tasks does the patient perform WITHOUT assistance of the helper? No tasks; h elper performs all three tasks TOILETING - SCORE: 1-DEP BLADDER MANAGEMENT: [place] removes incontinent device (Depends, pull ups, etc.); cleans the patient after accident / inco ntinent episode; and, applies new incontinent device. BLADDER MANAGEMENT - SCORE: 1-DEP BLADDER MANAGEMENT - FREQUENCY OF ACCIDENTS: BLADDER MANAGEMENT(FA) - STEP 1: How many accidents has the patient had during the current shift? 1 BOWEL MANAGEMENT: Activity did not occur on this shift BOWEL MANAGEMENT - SCORE: 7-IND TRANSFERS: BED, CHAIR, WHEELCHAIR: Activity did not occur on this shift TRANSFERS: BED, CHAIR, WHEELCHAIR - SCORE: 0-UNK TRANSFERS: TOILET: Activity did not occur on this shift TRANSFERS: TOILET - SCORE: 0-UNK TRANSFERS: SHOWER: Activity did not occur on this shift TRANSFERS: SHOWER - SCORE: 0-UNK TRANSFERS: TUB: Activity did not occur on this shift TRANSFERS: TUB - SCORE: 0-UNK LOCOMOTION: WALK: Activity did not occur on this shift LOCOMOTION: WALK - SCORE: 0-UNK LOCOMOTION: WHEELCHAIR: Activity did not occur on this shift LOCOMOTION: WHEELCHAIR - SCORE: 0-UNK COMPREHENSION: COMPREHENSION: TYPE: Both COMPREHENSION - STEP 1: Does the patient require help from a person or device, or need extra time to understand complex and a bstract ideas (such as current events, finances, discharge planning, medical issues, relationships, e tc)? No. COMPREHENSION - STEP 2: Does the patient need extra time, require an assistive device (such as glasses for visual comprehensi on or a hearing aid for auditory comprehension) or does s/he have mild difficulty understanding compl ex and abstract information? Yes. COMPREHENSION - SCORE: 6-SILVESTRE EXPRESSION EXPRESSION: TYPE: Both EXPRESSION - STEP 1: Does the patient require help from a person or device, or need extra time expressing complex and abst ract ideas (such as current events, finances, discharge planning, medical issues, relationships, etc) ? No. EXPRESSION - STEP 2: Does the patient need extra time, require an assistive device (such as augmentive communication syste m or a communication board), OR does s/he have mild difficulty expressing complex and abstract ideas (including mild dysarthria or mild word-find problems)? No. EXPRESSION - SCORE: 7-IND SOCIAL INTERACTION: SOCIAL INTERACTION - STEP 1: Does the patient require a helper to interact with others in social and therapeutic situations? No. SOCIAL INTERACTION - STEP 2: Does the patient need extra time in social situations, OR does s/he interact with staff, other patien ts, and family members ONLY in structured environments, OR does s/he require medication for social in teraction? Yes, patient requires medication for social interaction SOCIAL INTERACTION - SCORE: 6-SILVESTRE PROBLEM SOLVING: PROBLEM SOLVING - STEP 1: Does the patient need help from a person or device, or need extra time to solve complex problems such as managing a checking account or confronting interpersonal problems? Yes. PROBLEM SOLVING - STEP 2: Does the patient solve basic routine problems half or more of the time? Yes. PROBLEM SOLVING - STEP 3: How often does the patient need help to solve basic routine problems? 10%-24% of the time PROBLEM SOLVING - SCORE: 4-MIN MEMORY: MEMORY - STEP 1: Does the patient need help from a person or device, or need extra time to remember frequently encount ered people, daily routines, and executing requests? No. MEMORY - STEP 2: Does the patient have slight difficulty recognizing frequently encountered people, daily routines, or executing requests without the need for repetition or using self-initiated or environmental cues to remember? Yes. MEMORY - SCORE: 6-SILVESTRE SIGNATURE PANEL: The following modified sections: Eating - Score, Grooming - Score, Dressing - Upper Body - Score, Jitendra ssing - Lower Body - Score, Toileting - Score, Bladder Management - Score, Bowel Management - Score, Transfers: Bed, Chair, Wheelchair - Score, Transfers: Toilet - Score, Transfers: Shower - Score, Good sfers: Tub - Score, Locomotion: Walk - Score, Locomotion: Wheelchair - Score, Comprehension - Score, Expression - Score, Social Interaction - Score, Problem Solving - Score, Memory - Score were [electro nically] signed by Valerie Almanzar CNA on ThuAug 02 2018 04:04:26 GMT-0500 (Central Daylight Time)
[2018-08-02] MEDS: LIDOCAINE 5% PATCH TOP SCH (08:26)
[2018-08-02] MEDS: FLECAINIDE 100 MG TAB PO SCH ×2 (08:26→20:29)
[2018-08-02] MEDS: MAGNESIUM OXIDE 400 MG TAB PO SCH ×2 (08:27→20:28)
[2018-08-02] MEDS: LISINOPRIL 5 MG TAB PO SCH (08:27)
[2018-08-02] MEDS: VITAMIN D 5,000 UNIT CAP PO SCH (08:27)
[2018-08-02] MEDS: FUROSEMIDE 20 MG TABLET PO SCH (08:27)
[2018-08-02] MEDS: CRANBERRY FRUIT EXTRACT 200 MG CAP PO SCH ×2 (08:27→20:28)
[2018-08-02] MEDS: APIXABAN 2.5 MG TABLET PO SCH ×2 (08:28→20:28)
[2018-08-02] MEDS: CITALOPRAM 10 MG TABLET PO SCH (08:28)
[2018-08-02] MEDS: GABAPENTIN 300 MG CAP PO SCH ×3 (08:28→20:28)
[2018-08-02] MEDS: ACETAMINOPHEN 500 MG TAB PO PRN (08:28)
[2018-08-02] MEDS: CYANOCOBALAMIN 1,000 MCG TAB PO SCH (08:28)
[2018-08-02] MEDS: VALSARTAN 80 MG TAB PO SCH (12:00)
--- NOTE | 2018-08-02 16:33 | FAST ---
ENCOUNTER DATE AND TIME: 08/02/2018 08:00 (CDT) NAME PRICE ROGERS DATE OF : 1940 DATE OF ADMISSION: 07/05/2018 18:33 (CDT) PHONE: AGE: 78 SSN# [id number] GENDER: Male ENCOUNTER PHYSICIAN: Dr. Abdirahman Zepeda M.D. 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 EATING: Activity did not occur on this shift EATING - SCORE: 0-UNK GROOMING: Activity did not occur on this shift GROOMING - SCORE: 0-UNK BATHING: Activity did not occur on this shift BATHING - SCORE: 0-UNK DRESSING - UPPER BODY: Activity did not occur on this shift Patient is not dressing in public clothing ARTICLES SCORE Total number of steps: 0 DRESSING - UPPER BODY - SCORE: 0-UNK DRESSING - LOWER BODY: Activity did not occur on this shift Patient is not dressing in public clothing ARTICLES SCORE Total number of steps: 0 DRESSING - LOWER BODY - SCORE: 0-UNK TOILETING: Activity did not occur on this shift TOILETING - SCORE: 0-UNK BLADDER MANAGEMENT: Activity did not occur on this shift BLADDER MANAGEMENT - SCORE: 7-IND BOWEL MANAGEMENT: Activity did not occur on this shift BOWEL MANAGEMENT - SCORE: 7-IND TRANSFERS: BED, CHAIR, WHEELCHAIR: TRANSFERS: BED, CHAIR, WHEELCHAIR - STEP 1: Does the patient require assistance of a person or device, or need extra time with bed, chair, or whe elchair transfers? Yes. TRANSFERS: BED, CHAIR, WHEELCHAIR - STEP 2: Does the patient require the assistance of a helper? Yes. TRANSFERS: BED, CHAIR, WHEELCHAIR - STEP 3: How much assistance does the patient require from the helper? Lifting of the patient TRANSFERS: BED, CHAIR, WHEELCHAIR - STEP 4: Does the helper lift the patient ONLY up? ONLY down? Up AND Down? Up AND Down. TRANSFERS: BED, CHAIR, WHEELCHAIR - SCORE: 2-MAX TRANSFERS: TOILET: Activity did not occur on this shift TRANSFERS: TOILET - SCORE: 0-UNK TRANSFERS: SHOWER: Activity did not occur on this shift TRANSFERS: SHOWER - SCORE: 0-UNK TRANSFERS: TUB: Activity did not occur on this shift TRANSFERS: TUB - SCORE: 0-UNK LOCOMOTION: WALK: Patient walks less than 50 feet LOCOMOTION: WALK - SCORE: 1-DEP LOCOMOTION: WHEELCHAIR: LOCOMOTION: WHEELCHAIR - STEP 1: Does the patient need help to go 150 feet in a wheelchair? Yes. LOCOMOTION: WHEELCHAIR - STEP 2: How much assistance does the patient need from the helper? Patient goes less than 150 feet - but more than 50 feet - with the assistance of only one helper LOCOMOTION: WHEELCHAIR - SCORE: 2-MAX LOCOMOTION: STAIRS: Activity did not occur on this shift LOCOMOTION: STAIRS - SCORE: 0-UNK COMPREHENSION: COMPREHENSION - SCORE: 0-UNK EXPRESSION EXPRESSION - SCORE: 0-UNK SOCIAL INTERACTION: SOCIAL INTERACTION - SCORE: 0-UNK PROBLEM SOLVING: PROBLEM SOLVING - SCORE: 0-UNK MEMORY: MEMORY - SCORE: 0-UNK SIGNATURE PANEL: The following modified sections: Transfers: Bed, Chair, Wheelchair - Score, Transfers: Toilet - Score , Locomotion: Walk - Score, Locomotion: Wheelchair - Score, Locomotion: Stairs - Score were [electron icaorion] signed by Skip Phillips PT on ThuAug 02 2018 16:31:54 T-0500 (Central Daylight Time)
--- NOTE | 2018-08-02 16:57 | FAST ---
ENCOUNTER DATE AND TIME: 08/02/2018 08:00 (CDT) NAME PRICE ROGERS DATE OF : 1940 DATE OF ADMISSION: 07/05/2018 18:33 (CDT) PHONE: AGE: 78 SSN# [id number] GENDER: Male ENCOUNTER PHYSICIAN: Dr. Abdirahman Zepeda M.D. 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 EATING: Activity did not occur on this shift EATING - SCORE: 0-UNK GROOMING: Comb/brush hair Oral care Wash, rinse, and dry face Wash, rinse, and dry hands GROOMING - STEP 1: Does the patient require the assistance of a person or device, or need extra time when grooming? Yes. GROOMING - STEP 2: Does the patient require the assistance of a helper? Yes. GROOMING - STEP 3: How much assistance does the patient require from the helper? Only prior equipment preparation/set up from the helper GROOMING - SCORE: 5-SUP BATHING: Abdomen Buttocks Chest Left arm Left lower leg and foot Left upper leg Perineal area Right arm Right lower leg and foot Right upper leg BATHING - STEP 1: Does the patient require the assistance of a person or device, or need extra time when bathing? Yes. BATHING - STEP 2: Does the patient require the assistance of a helper? Yes. BATHING - STEP 3: How much assistance does the patient require from the helper? More than just incidental help BATHING - STEP 4: What percent of the body parts did the patient bathe WITHOUT the helper? Half or more of the body par ts BATHING - SCORE: 3-MOD DRESSING - UPPER BODY: T-shirt/pullover shirt (four steps) ARTICLES SCORE Total number of steps: 4 DRESSING - UPPER BODY - STEP 1: Does the patient require help from a person or device, or need extra time when dressing above the [address]? Yes. DRESSING - UPPER BODY - STEP 2: Does the patient require the assistance of a helper? Yes. DRESSING - UPPER BODY - STEP 3: Does the helper touch the patient while dressing? Yes. DRESSING - UPPER BODY - STEP 4: How many of the total steps does the patient complete on his/her own? 3 DRESSING - UPPER BODY - SCORE: 4-MIN DRESSING - LOWER BODY: Elastic waist pants (three steps) Slip-on shoe - Left foot (one step) Slip-on shoe - Right foot (one step) Underwear (three steps) ARTICLES SCORE Total number of steps: 8 DRESSING - LOWER BODY - STEP 1: Does the patient require help from a person or device, or need extra time when dressing below the [address]? Yes. DRESSING - LOWER BODY - STEP 2: Does the patient require the assistance of a helper? Yes. DRESSING - LOWER BODY - STEP 3: Does the helper touch the patient while dressing? Yes. DRESSING - LOWER BODY - STEP 4: How many of the total steps does the patient complete on his/her own? 3 DRESSING - LOWER BODY - STEP 5: Does patient require total assistance for dressing below the waist such as the helper holding clothin g and performing basically all the activities? No. DRESSING - LOWER BODY - SCORE: 2-MAX TOILETING: Activity did not occur on this shift TOILETING - SCORE: 0-UNK BLADDER MANAGEMENT: Activity did not occur on this shift BLADDER MANAGEMENT - SCORE: 7-IND BOWEL MANAGEMENT: Activity did not occur on this shift BOWEL MANAGEMENT - SCORE: 7-IND TRANSFERS: BED, CHAIR, WHEELCHAIR: Activity did not occur on this shift TRANSFERS: BED, CHAIR, WHEELCHAIR - SCORE: 0-UNK TRANSFERS: TOILET: Activity did not occur on this shift TRANSFERS: TOILET - SCORE: 0-UNK TRANSFERS: SHOWER: TRANSFERS: SHOWER - STEP 1: Does the patient require the assistance of a person or device, or need extra time with shower transfe rs? Yes. TRANSFERS: SHOWER - STEP 2: Does the patient require the assistance of a helper? Yes. TRANSFERS: SHOWER - STEP 3: How much assistance does the patient require from the helper? More than incidental help TRANSFERS: SHOWER - STEP 4: How much more help does the patient require from the helper? Lifting the patient up AND down from the wheelchair onto the shower chair TRANSFERS: SHOWER - SCORE: 2-MAX TRANSFERS: TUB: Activity did not occur on this shift TRANSFERS: TUB - SCORE: 0-UNK LOCOMOTION: WALK: Activity did not occur on this shift LOCOMOTION: WALK - SCORE: 0-UNK LOCOMOTION: WHEELCHAIR: Activity did not occur on this shift LOCOMOTION: WHEELCHAIR - SCORE: 0-UNK LOCOMOTION: STAIRS: Activity did not occur on this shift LOCOMOTION: STAIRS - SCORE: 0-UNK COMPREHENSION: COMPREHENSION: TYPE: Both COMPREHENSION - STEP 1: Does the patient require help from a person or device, or need extra time to understand complex and a bstract ideas (such as current events, finances, discharge planning, medical issues, relationships, e tc)? Yes. COMPREHENSION - STEP 2: Does the patient require help to understand questions or statements about basic needs or ideas (such as hunger, thirst, sleep, safety, daily schedule, room location, or discomfort) half or more of the t aneudy? No. COMPREHENSION - STEP 3: How often does the patient need help to understand directions and conversation about basic needs? 10% - 24% of the time COMPREHENSION - SCORE: 4-MIN EXPRESSION EXPRESSION: TYPE: Both EXPRESSION - STEP 1: Does the patient require help from a person or device, or need extra time expressing complex and abst ract ideas (such as current events, finances, discharge planning, medical issues, relationships, etc) ? Yes. EXPRESSION - STEP 2: Does the patient require help to express basic necessities or ideas (such as hunger, thirst, sleep, s afety, daily schedule, room location, or discomfort) half or more of the time? No. EXPRESSION - STEP 3: How often does the patient need help to express directions and conversation about basic needs? Less t smiley 10% of the time EXPRESSION - SCORE: 5-SUP SOCIAL INTERACTION: SOCIAL INTERACTION - STEP 1: Does the patient require a helper to interact with others in social and therapeutic situations? Yes. SOCIAL INTERACTION - STEP 2: Does the patient interact appropriately half or more of the time? Yes. SOCIAL INTERACTION - STEP 3: How often does the patient need help to interact appropriately? Less than 10% of the time SOCIAL INTERACTION - SCORE: 5-SUP PROBLEM SOLVING: PROBLEM SOLVING - STEP 1: Does the patient need help from a person or device, or need extra time to solve complex problems such as managing a checking account or confronting interpersonal problems? Yes. PROBLEM SOLVING - STEP 2: Does the patient solve basic routine problems half or more of the time? Yes. PROBLEM SOLVING - STEP 3: How often does the patient need help to solve basic routine problems? 10%-24% of the time PROBLEM SOLVING - SCORE: 4-MIN MEMORY: MEMORY - STEP 1: Does the patient need help from a person or device, or need extra time to remember frequently encount ered people, daily routines, and executing requests? Yes. MEMORY - STEP 2: How often does the patient need help to remember frequently encountered people, daily routines, and e xecuting requests? 10% - 24% of the time MEMORY - SCORE: 4-MIN SIGNATURE PANEL: The following modified sections: Memory - Score, Problem Solving - Score, Social Interaction - Score, Expression - Score, Comprehension - Score, Transfers: Bed, Chair, Wheelchair - Score, Transfers: Ryan let - Score, Transfers: Tub - Score, Transfers: Shower - Score, Eating - Score, Grooming - Score, Bat merissa - Score, Dressing - Upper Body - Score, Dressing - Lower Body - Score, Toileting - Score were [e lectronically] signed by Shanti Moreno OT on ThuAug 02 2018 16:56:37 GMT-0500 (Central Daylight T aneudy)
--- NOTE | 2018-08-02 19:11 | R.PN ---
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 SUBJECTIVE: Pt denied any Shortness of Breath. Pt denied any depression. Patient states that pain is under control. Hgb 11.7, prealbumin 20.7. Functional transfers done with total assistance. He ambulated 15' with maximum assistance using a right hand hemiwalker. left hip x-ray shows no fractures. Therapeutic exercises done with contact guard assistance and multiple rest breaks. VITAL SIGNS Temperature: 98.1 F SBP/DBP: 134/76 Pulse: 70 Resp: 16 MEDICATION ALLERGIES: No Known Drug Allergies (NKDA) ENVIRONMENTAL ALLERGIES: None Known - Substance Allergies None Known - Other Allergies None Known NURSING: - Shower allowing shower - Bladder care per protocol - Skin care per protocol PRECAUTIONS: - Weight Bearing Precaution WBAT left LE ACTIVITIES OOB only with supervision THERAPIES: - Occupational Therapy Evaluate and Treat. Visual Perceptual Training. Cognitive Retraining. - Speech Therapy Cognitive Training. Memory Strategies. Expressive Language Skills. Speech Intelligibility Training. R eceptive Language Skills. Dysphagia Therapy. - Physical Therapy Evaluate and Treat. PHYSICAL EXAM - Gen Alert and awake Lying in bed No apparent distress Oriented to: person, time, and place - Skin No beakdown No abnormalities - Eyes No abnormalities - ENMT No abnormalities - Neck No abnormalities - CVS RRR - Chest No abnormalities - Resp Clear to auscultation - Abd + bowel sounds - GI nondistended Deferred - No abnormalities - Ext Mild left lower extremity edema. - MSK 0/5 strength in the left upper extremity and 2+/5 weakness in left lower extremity. - Neuro 0/5 strength in the left upper extremity and 2+/5 weakness in left lower extremity. - Psych No abnormalities ASSESSMENT: Pt. is a 78 yo Right-handed white male.On 06/25/2018 Pt. presented to [facility] with sudden on set of left-side weakness.On 06/25/2018 he was admitted to [facility] with diagnosis Right MCA. His impairment category is Stroke 01 - Left Body (Right Brain) (01.1).Pre-morbidly, Pt. was independ ent/mod-I in Self-Care, Sphincter Control, Transfers Control, Locomotion, Communication, and Social C ognition; and he had good Sphincter Control.Currently, he has deficits of Self-Care, Transfers Contro l, Locomotion, Communication, Social Cognition, Endurance, Balance, and Safety Awareness.Pt. is now r eferred to [facility] for acute in-patient rehabilitation in order to maximize patient's functional independence in activities of daily living, strength, ROM, and mobility.- Rehab Goal Patient has realistic goal of being discharged at assistance level 6-Maria E to reside at Home with Fam linda/Relatives. MDM/PLAN: - Physical Therapy Gait dysfunction - to improve, our physical therapists will perform initial evaluation of pt's statu s upon admission and devise an individualized program for Gait Training, and Wheel Chair mobility Inability to transfer - to improve, our physical therapists will perform initial evaluation of pt's status upon admission and devise an individualized program for Bed mobility Need for home safety evaluation - to improve, our physical therapists will perform initial evaluatio n of pt's status upon admission and devise an individualized program for Home Evaluation Need in caregiver upon discharge - to improve, our physical therapists will perform initial evaluati on of pt's status upon admission and devise an individualized program for Caregiver Training Edema - to improve, our physical therapists will perform initial evaluation of pt's status upon admi ssion and devise an individualized program for Elevation Training, and Lymphedema Therapy New precaution - to improve, our physical therapists will perform initial evaluation of pt's status upon admission and devise an individualized program for Patient precaution education Poor balance - to improve, our physical therapists will perform initial evaluation of pt's status up on admission and devise an individualized program for Balance Training Poor endurance - to improve, our physical therapists will perform initial evaluation of pt's status upon admission and devise an individualized program for Endurance Training Weakness - to improve, our physical therapists will perform initial evaluation of pt's status upon a dmission and devise an individualized program for Aquatic Therapy, Neuromuscular Reeducation, and Str engthening Achieving independence - to improve, our physical therapists will perform initial evaluation of pt's status upon admission and devise an individualized program for Community Reintegration Activities - Occupational Therapy ADL deficits - to improve, our occupation therapists will perform initial evaluation of pt's status upon admission and devise an individualized program for Bathing, Bed mobility, Community Reintegratio n, Cooking, Dressing, Eating, Fine Motor Skills, Grooming, Homemaking, Kitchen Mobility, Laundry, Pat ient Education, Safety Awareness, Splinting - Positioning, Transfers(Toilet, Tub, Shower), and Wheel Chair Management Cognitive deficits - to improve, our occupation therapists will perform initial evaluation of pt's s tatus upon admission and devise an individualized program for Cognition - orientation Need for home care manager - to improve, our occupation therapists will perform initial evaluation of pt's status upon admission and devise an individualized program for Caregiver Training Weakness - to improve, our occupation therapists will perform initial evaluation of pt's status upon admission and devise an individualized program for Aquatic Therapy, Balance, Endurance, UE ROM, and UE strengthening - Diet Type Continue Regular - Diet - Liquid Texture Continue Thin - Tube Feed Continue N/A - Bladder care per protocol - Weight Bearing Precaution WBAT left LE - Skin care per protocol - Diet - Solid Texture Continue Regular Continue Mechanical Soft (Ground) - Shower allowing shower for Dementia, TBI, Stroke, or others FUNCTIONAL STATUS: UPDATED AT WEEKLY TEAM CONFERENCE - Bladder Same accident frequency: 7-Ind - No accidents in the past 7 days - Bowel Same accident frequency: 7-Ind - No accidents in the past 7 days - Walking Same score based on distance walked: 0(N/A) - Wheelchair Same score based on distance traveled: 0(N/A) FUNCTIONAL STATUS: - Self-Care A. Eating sup B. Grooming Anil C. Bathing maxA D. Dressing - Upper Anil E. Dressing - Lower maxA F. Toileting maxA - Sphincter Control G: Bladder control Ind H: Bowel control Ind - Transfers Control I. Bed/Chair/Wheelchair maxA J. Toilet maxA K. Tub/Shower ADNO - Locomotion L. Walk/Wheelchair (C) Dep L. Walk/Wheelchair (W) Dep M. Stairs ADNO - Communication N. Comprehension (B) Anil O. Expression (B) Anil - Social Cognition P. Social Interaction Anil Q. Problem Solving Anil R. Memory Anil - Endurance Fair - Balance Poor - Safety Awareness Fair CURRENT FUNC. DEFICITS: Self-Care, Transfers Control, Locomotion, Communication, Social Cognition, Endurance, Balance, and Sa fety Awareness SIGNATURE PANEL: (CDT)
[2018-08-02] MEDS: DOCUSATE NA/SENNA CONC 1 TAB PO SCH (20:28)
[2018-08-02] MEDS: TAMSULOSIN 0.4 MG SR CAP PO SCH (20:28)
[2018-08-02] MEDS: ATORVASTATIN 10 MG TAB PO SCH (20:29)
[2018-08-02] MEDS: ALPRAZOLAM 1 MG TABLET PO PRN (21:15)
--- NOTE | 2018-08-03 02:14 | FAST ---
SHIFT START DATE/TIME: 08/02/2018 19:00 (CDT) SHIFT END DATE/TIME: 08/03/2018 07:00 (CDT) NAME PRICE ROGERS DATE OF : 1940 DATE OF ADMISSION: 07/05/2018 18:33 (CDT) PHONE: AGE: 78 N# [id number] GENDER: Male ENCOUNTER PHYSICIAN: Dr. Abdirahman Zepeda M.D. 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 EATING: Activity did not occur on this shift EATING - SCORE: 0-UNK GROOMING: Activity did not occur on this shift GROOMING - SCORE: 0-UNK BATHING: Activity did not occur on this shift BATHING - SCORE: 0-UNK DRESSING - UPPER BODY: Activity did not occur on this shift ARTICLES SCORE Total number of steps: 0 DRESSING - UPPER BODY - SCORE: 0-UNK DRESSING - LOWER BODY: Activity did not occur on this shift ARTICLES SCORE Total number of steps: 0 DRESSING - LOWER BODY - SCORE: 0-UNK TOILETING: TOILETING - STEP 1: Does the patient require the assistance of a person or device, or need extra time with toileting? Yes . TOILETING - STEP 2: Does the patient require the assistance of a helper? Yes. TOILETING - STEP 3: How much assistance does the patient require from the helper? Hands-on assistance from the helper TOILETING - STEP 4: Of the 3 tasks: 1) Adjusting clothing prior to use, 2) Cleansing of perineal area, 3) Adjusting clot merissa after use; How many tasks does the patient perform WITHOUT assistance of the helper? No tasks; h raquel performs all three tasks TOILETING - SCORE: 1-DEP BLADDER MANAGEMENT: BLADDER MANAGEMENT - STEP 1: Does the patient control the bladder completely and intentionally without equipment or devices or med ications, and is always continent? No. BLADDER MANAGEMENT - STEP 2: Does the patient require the assistance of a helper? Yes. BLADDER MANAGEMENT - STEP 3: How much assistance does the patient require from the helper? Patient requires contact assistance fro m the helper BLADDER MANAGEMENT - STEP 4: How much contact assistance does the patient require from the helper? Patient requires maximal assist ance, and only performs 25% to 49% of bladder management tasks BLADDER MANAGEMENT - SCORE: 2-MAX BOWEL MANAGEMENT: Activity did not occur on this shift BOWEL MANAGEMENT - SCORE: 7-IND TRANSFERS: BED, CHAIR, WHEELCHAIR: Activity did not occur on this shift TRANSFERS: BED, CHAIR, WHEELCHAIR - SCORE: 0-UNK TRANSFERS: TOILET: Activity did not occur on this shift TRANSFERS: TOILET - SCORE: 0-UNK TRANSFERS: SHOWER: Activity did not occur on this shift TRANSFERS: SHOWER - SCORE: 0-UNK TRANSFERS: TUB: Activity did not occur on this shift TRANSFERS: TUB - SCORE: 0-UNK LOCOMOTION: WALK: Activity did not occur on this shift LOCOMOTION: WALK - SCORE: 0-UNK LOCOMOTION: WHEELCHAIR: Activity did not occur on this shift LOCOMOTION: WHEELCHAIR - SCORE: 0-UNK COMPREHENSION: COMPREHENSION: TYPE: Both COMPREHENSION - STEP 1: Does the patient require help from a person or device, or need extra time to understand complex and a bstract ideas (such as current events, finances, discharge planning, medical issues, relationships, e tc)? No. COMPREHENSION - STEP 2: Does the patient need extra time, require an assistive device (such as glasses for visual comprehensi on or a hearing aid for auditory comprehension) or does s/he have mild difficulty understanding compl ex and abstract information? Yes. COMPREHENSION - SCORE: 6-SILVESTRE EXPRESSION EXPRESSION: TYPE: Both EXPRESSION - STEP 1: Does the patient require help from a person or device, or need extra time expressing complex and abst ract ideas (such as current events, finances, discharge planning, medical issues, relationships, etc) ? No. EXPRESSION - STEP 2: Does the patient need extra time, require an assistive device (such as augmentive communication syste m or a communication board), OR does s/he have mild difficulty expressing complex and abstract ideas (including mild dysarthria or mild word-find problems)? Yes. EXPRESSION - SCORE: 6-SILVESTRE SOCIAL INTERACTION: SOCIAL INTERACTION - STEP 1: Does the patient require a helper to interact with others in social and therapeutic situations? No. SOCIAL INTERACTION - STEP 2: Does the patient need extra time in social situations, OR does s/he interact with staff, other patien ts, and family members ONLY in structured environments, OR does s/he require medication for social in teraction? Yes, patient requires medication for social interaction SOCIAL INTERACTION - SCORE: 6-SILVESTRE PROBLEM SOLVING: PROBLEM SOLVING - STEP 1: Does the patient need help from a person or device, or need extra time to solve complex problems such as managing a checking account or confronting interpersonal problems? No. PROBLEM SOLVING - STEP 2: Does the patient require extra time to make decisions or solve problems, OR does s/he have slight dif ficulty reading, initiating, or self-correcting in unfamiliar situations? Yes, patient needs extra ti me. PROBLEM SOLVING - SCORE: 6-SILVESTRE MEMORY: MEMORY - STEP 1: Does the patient need help from a person or device, or need extra time to remember frequently encount ered people, daily routines, and executing requests? No. MEMORY - STEP 2: Does the patient have slight difficulty recognizing frequently encountered people, daily routines, or executing requests without the need for repetition or using self-initiated or environmental cues to remember? Yes. MEMORY - SCORE: 6-SILVESTRE SIGNATURE PANEL: The following modified sections: Eating - Score, Grooming - Score, Bathing - Score, Dressing - Upper Body - Score, Dressing - Lower Body - Score, Toileting - Score, Bladder Management - Score, Bowel Man agement - Score, Transfers: Bed, Chair, Wheelchair - Score, Transfers: Toilet - Score, Transfers: Melissa wer - Score, Transfers: Tub - Score, Locomotion: Walk - Score, Locomotion: Wheelchair - Score, Compre hension - Score, Expression - Score, Social Interaction - Score, Problem Solving - Score, Memory - Sc ore were [electronically] signed by Kaylen Nguyen RN on ThuAug 03 2018 02:13:44 T-0500 ([facility] Time)
[2018-08-03] MEDS: GABAPENTIN 300 MG CAP PO SCH ×3 (08:48→20:00)
[2018-08-03] MEDS: CRANBERRY FRUIT EXTRACT 200 MG CAP PO SCH ×2 (08:49→19:57)
[2018-08-03] MEDS: MAGNESIUM OXIDE 400 MG TAB PO SCH ×2 (08:50→19:57)
[2018-08-03] MEDS: CITALOPRAM 10 MG TABLET PO SCH (08:50)
[2018-08-03] MEDS: VITAMIN D 5,000 UNIT CAP PO SCH (08:50)
[2018-08-03] MEDS: APIXABAN 2.5 MG TABLET PO SCH ×2 (08:50→19:57)
[2018-08-03] MEDS: LIDOCAINE 5% PATCH TOP SCH (08:51)
[2018-08-03] MEDS: HYDROCODONE/APAP 5/325 MG TAB PO PRN ×2 (08:51→13:51)
[2018-08-03] MEDS: CYANOCOBALAMIN 1,000 MCG TAB PO SCH (08:52)
[2018-08-03] MEDS: FLECAINIDE 100 MG TAB PO SCH ×2 (08:52→19:57)
[2018-08-03] MEDS: FUROSEMIDE 20 MG TABLET PO SCH (08:57)
[2018-08-03] MEDS: LISINOPRIL 5 MG TAB PO SCH (08:58)
[2018-08-03] MEDS: TRAMADOL HCL 50 MG TAB PO PRN (12:10)
[2018-08-03] MEDS: VALSARTAN 80 MG TAB PO SCH (13:49)
--- NOTE | 2018-08-03 14:00 | FAST ---
SHIFT START DATE/TIME: 08/03/2018 07:00 (CDT) SHIFT END DATE/TIME: 08/03/2018 19:00 (CDT) NAME PRICE ROGERS DATE OF : 1940 DATE OF ADMISSION: 07/05/2018 18:33 (CDT) PHONE: AGE: 78 N# [id number] GENDER: Male ENCOUNTER PHYSICIAN: Dr. Abdirahman Zepeda M.D. 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 EATING: EATING - STEP 1: Does the patient require the assistance of a person or device, or need extra time when eating? Yes. EATING - STEP 2: Does the patient require the assistance of a helper? Yes. EATING - STEP 3: Does the patient perform half or more of the eating tasks? Yes. EATING - STEP 4: Does the patient need only supervision, cuing, coaxing OR help to apply an orthosis OR help to cut fo od, open containers, pour liquids, or butter bread? Yes. EATING - SCORE: 5-SUP GROOMING: Comb/brush hair Oral care Patient shaved Wash, rinse, and dry face Wash, rinse, and dry hands GROOMING - STEP 1: Does the patient require the assistance of a person or device, or need extra time when grooming? Yes. GROOMING - STEP 2: Does the patient require the assistance of a helper? Yes. GROOMING - STEP 3: How much assistance does the patient require from the helper? Only prior equipment preparation/set up from the helper GROOMING - SCORE: 5-SUP BATHING: Activity did not occur on this shift BATHING - SCORE: 0-UNK DRESSING - UPPER BODY: T-shirt/pullover shirt (four steps) ARTICLES SCORE Total number of steps: 4 DRESSING - UPPER BODY - STEP 1: Does the patient require help from a person or device, or need extra time when dressing above the [address]? Yes. DRESSING - UPPER BODY - STEP 2: Does the patient require the assistance of a helper? Yes. DRESSING - UPPER BODY - STEP 3: Does the helper touch the patient while dressing? Yes. DRESSING - UPPER BODY - STEP 4: How many of the total steps does the patient complete on his/her own? 3 DRESSING - UPPER BODY - SCORE: 4-MIN DRESSING - LOWER BODY: Elastic waist pants (three steps) Slip-on shoe - Left foot (one step) Slip-on shoe - Right foot (one step) Underwear (three steps) ARTICLES SCORE Total number of steps: 8 DRESSING - LOWER BODY - STEP 1: Does the patient require help from a person or device, or need extra time when dressing below the [address]? Yes. DRESSING - LOWER BODY - STEP 2: Does the patient require the assistance of a helper? Yes. DRESSING - LOWER BODY - STEP 3: Does the helper touch the patient while dressing? Yes. DRESSING - LOWER BODY - STEP 4: How many of the total steps does the patient complete on his/her own? 3 DRESSING - LOWER BODY - STEP 5: Does patient require total assistance for dressing below the waist such as the helper holding clothin g and performing basically all the activities? No. DRESSING - LOWER BODY - SCORE: 2-MAX TOILETING: TOILETING - STEP 1: Does the patient require the assistance of a person or device, or need extra time with toileting? Yes . TOILETING - STEP 2: Does the patient require the assistance of a helper? Yes. TOILETING - STEP 3: How much assistance does the patient require from the helper? Hands-on assistance from the helper TOILETING - STEP 4: Of the 3 tasks: 1) Adjusting clothing prior to use, 2) Cleansing of perineal area, 3) Adjusting clot merissa after use; How many tasks does the patient perform WITHOUT assistance of the helper? One task TOILETING - SCORE: 2-MAX BLADDER MANAGEMENT: [place] removes incontinent device (Depends, pull ups, etc.); cleans the patient after accident / inco ntinent episode; and, applies new incontinent device. BLADDER MANAGEMENT - SCORE: 1-DEP BLADDER MANAGEMENT - FREQUENCY OF ACCIDENTS: BLADDER MANAGEMENT(FA) - STEP 1: How many accidents has the patient had during the current shift? 1 BOWEL MANAGEMENT: BOWEL MANAGEMENT - STEP 1: Does the patient control bowels completely and intentionally without equipment devices or medications AND is always continent? No. BOWEL MANAGEMENT - STEP 2: Does the patient require the assistance of a helper? No, patient requires medication for control such as stool softeners, suppositories, laxatives, enemas, or OTC medications BOWEL MANAGEMENT - SCORE: 6-SILVESTRE BOWEL MANAGEMENT - FREQUENCY OF ACCIDENTS: BOWEL MANAGEMENT(FA) - STEP 1: How many accidents has the patient had during the current shift? 1 TRANSFERS: BED, CHAIR, WHEELCHAIR: Patient requires more than one helper and/or the use of a mechanical lift is utilized TRANSFERS: BED, CHAIR, WHEELCHAIR - SCORE: 1-DEP TRANSFERS: TOILET: Patient requires more than one helper and/or the use of a mechanical lift is utilized TRANSFERS: TOILET - SCORE: 1-DEP TRANSFERS: SHOWER: Activity did not occur on this shift TRANSFERS: SHOWER - SCORE: 0-UNK TRANSFERS: TUB: Activity did not occur on this shift TRANSFERS: TUB - SCORE: 0-UNK LOCOMOTION: WALK: Activity did not occur on this shift LOCOMOTION: WALK - SCORE: 0-UNK LOCOMOTION: WHEELCHAIR: Activity did not occur on this shift LOCOMOTION: WHEELCHAIR - SCORE: 0-UNK COMPREHENSION: COMPREHENSION: TYPE: Both COMPREHENSION - STEP 1: Does the patient require help from a person or device, or need extra time to understand complex and a bstract ideas (such as current events, finances, discharge planning, medical issues, relationships, e tc)? Yes. COMPREHENSION - STEP 2: Does the patient require help to understand questions or statements about basic needs or ideas (such as hunger, thirst, sleep, safety, daily schedule, room location, or discomfort) half or more of the t aneudy? No. COMPREHENSION - STEP 3: How often does the patient need help to understand directions and conversation about basic needs? 10% - 24% of the time COMPREHENSION - SCORE: 4-MIN EXPRESSION EXPRESSION: TYPE: Both EXPRESSION - STEP 1: Does the patient require help from a person or device, or need extra time expressing complex and abst ract ideas (such as current events, finances, discharge planning, medical issues, relationships, etc) ? Yes. EXPRESSION - STEP 2: Does the patient require help to express basic necessities or ideas (such as hunger, thirst, sleep, s afety, daily schedule, room location, or discomfort) half or more of the time? No. EXPRESSION - STEP 3: How often does the patient need help to express directions and conversation about basic needs? Less t smiley 10% of the time EXPRESSION - SCORE: 5-SUP SOCIAL INTERACTION: SOCIAL INTERACTION - STEP 1: Does the patient require a helper to interact with others in social and therapeutic situations? Yes. SOCIAL INTERACTION - STEP 2: Does the patient interact appropriately half or more of the time? Yes. SOCIAL INTERACTION - STEP 3: How often does the patient need help to interact appropriately? Less than 10% of the time SOCIAL INTERACTION - SCORE: 5-SUP PROBLEM SOLVING: PROBLEM SOLVING - STEP 1: Does the patient need help from a person or device, or need extra time to solve complex problems such as managing a checking account or confronting interpersonal problems? Yes. PROBLEM SOLVING - STEP 2: Does the patient solve basic routine problems half or more of the time? Yes. PROBLEM SOLVING - STEP 3: How often does the patient need help to solve basic routine problems? Less than 10% of the time PROBLEM SOLVING - SCORE: 5-SUP MEMORY: MEMORY - STEP 1: Does the patient need help from a person or device, or need extra time to remember frequently encount ered people, daily routines, and executing requests? Yes. MEMORY - STEP 2: How often does the patient need help to remember frequently encountered people, daily routines, and e xecuting requests? Less than 10% of the time MEMORY - SCORE: 5-SUP SIGNATURE PANEL: The following modified sections: Eating - Score, Grooming - Score, Bathing - Score, Dressing - Upper Body - Score, Dressing - Lower Body - Score, Toileting - Score, Bladder Management - Score, Bowel Man agement - Score, Transfers: Bed, Chair, Wheelchair - Score, Transfers: Toilet - Score, Transfers: Melissa wer - Score, Transfers: Tub - Score, Locomotion: Walk - Score, Locomotion: Wheelchair - Score, Compre hension - Score, Expression - Score, Social Interaction - Score, Problem Solving - Score, Memory - Sc ore were [electronically] signed by Penelope Medrano C.N.A. on ThuAug 03 2018 13:58:54 T-0500 ([facility])
[2018-08-03] MEDS: TAMSULOSIN 0.4 MG SR CAP PO SCH (19:59)
[2018-08-03] MEDS: DOCUSATE NA/SENNA CONC 1 TAB PO SCH (19:59)
[2018-08-03] MEDS: ATORVASTATIN 10 MG TAB PO SCH (20:00)
[2018-08-03] MEDS: ALPRAZOLAM 1 MG TABLET PO PRN (21:54)
--- NOTE | 2018-08-04 02:45 | FAST ---
SHIFT START DATE/TIME: 08/03/2018 19:00 (CDT) SHIFT END DATE/TIME: 08/04/2018 07:00 (CDT) NAME PRICE ROGERS DATE OF : 1940 DATE OF ADMISSION: 07/05/2018 18:33 (CDT) PHONE: AGE: 78 N# [id number] GENDER: Male ENCOUNTER PHYSICIAN: Dr. Abdirahman Zepeda M.D. 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 EATING: Activity did not occur on this shift EATING - SCORE: 0-UNK GROOMING: Activity did not occur on this shift GROOMING - SCORE: 0-UNK BATHING: Activity did not occur on this shift BATHING - SCORE: 0-UNK DRESSING - UPPER BODY: Patient is not dressing in public clothing ARTICLES SCORE Total number of steps: 0 DRESSING - UPPER BODY - SCORE: 0-UNK DRESSING - LOWER BODY: Patient is not dressing in public clothing ARTICLES SCORE Total number of steps: 0 DRESSING - LOWER BODY - SCORE: 0-UNK TOILETING: TOILETING - STEP 1: Does the patient require the assistance of a person or device, or need extra time with toileting? Yes . TOILETING - STEP 2: Does the patient require the assistance of a helper? Yes. TOILETING - STEP 3: How much assistance does the patient require from the helper? Hands-on assistance from the helper TOILETING - STEP 4: Of the 3 tasks: 1) Adjusting clothing prior to use, 2) Cleansing of perineal area, 3) Adjusting clot merissa after use; How many tasks does the patient perform WITHOUT assistance of the helper? No tasks; h raquel performs all three tasks TOILETING - SCORE: 1-DEP BLADDER MANAGEMENT: BLADDER MANAGEMENT - STEP 1: Does the patient control the bladder completely and intentionally without equipment or devices or med ications, and is always continent? No. BLADDER MANAGEMENT - STEP 2: Does the patient require the assistance of a helper? Yes. BLADDER MANAGEMENT - STEP 3: How much assistance does the patient require from the helper? Patient requires contact assistance fro m the helper BLADDER MANAGEMENT - STEP 4: How much contact assistance does the patient require from the helper? Patient requires maximal assist ance, and only performs 25% to 49% of bladder management tasks BLADDER MANAGEMENT - SCORE: 2-MAX BOWEL MANAGEMENT: Activity did not occur on this shift BOWEL MANAGEMENT - SCORE: 7-IND TRANSFERS: BED, CHAIR, WHEELCHAIR: Activity did not occur on this shift TRANSFERS: BED, CHAIR, WHEELCHAIR - SCORE: 0-UNK TRANSFERS: TOILET: Activity did not occur on this shift TRANSFERS: TOILET - SCORE: 0-UNK TRANSFERS: SHOWER: Activity did not occur on this shift TRANSFERS: SHOWER - SCORE: 0-UNK TRANSFERS: TUB: Activity did not occur on this shift TRANSFERS: TUB - SCORE: 0-UNK LOCOMOTION: WALK: Activity did not occur on this shift LOCOMOTION: WALK - SCORE: 0-UNK LOCOMOTION: WHEELCHAIR: Activity did not occur on this shift LOCOMOTION: WHEELCHAIR - SCORE: 0-UNK COMPREHENSION: COMPREHENSION: TYPE: Both COMPREHENSION - STEP 1: Does the patient require help from a person or device, or need extra time to understand complex and a bstract ideas (such as current events, finances, discharge planning, medical issues, relationships, e tc)? No. COMPREHENSION - STEP 2: Does the patient need extra time, require an assistive device (such as glasses for visual comprehensi on or a hearing aid for auditory comprehension) or does s/he have mild difficulty understanding compl ex and abstract information? Yes. COMPREHENSION - SCORE: 6-SILVESTRE EXPRESSION EXPRESSION: TYPE: Both EXPRESSION - STEP 1: Does the patient require help from a person or device, or need extra time expressing complex and abst ract ideas (such as current events, finances, discharge planning, medical issues, relationships, etc) ? No. EXPRESSION - STEP 2: Does the patient need extra time, require an assistive device (such as augmentive communication syste m or a communication board), OR does s/he have mild difficulty expressing complex and abstract ideas (including mild dysarthria or mild word-find problems)? No. EXPRESSION - SCORE: 7-IND SOCIAL INTERACTION: SOCIAL INTERACTION - STEP 1: Does the patient require a helper to interact with others in social and therapeutic situations? No. SOCIAL INTERACTION - STEP 2: Does the patient need extra time in social situations, OR does s/he interact with staff, other patien ts, and family members ONLY in structured environments, OR does s/he require medication for social in teraction? Yes, patient requires medication for social interaction SOCIAL INTERACTION - SCORE: 6-SILVESTRE PROBLEM SOLVING: PROBLEM SOLVING - STEP 1: Does the patient need help from a person or device, or need extra time to solve complex problems such as managing a checking account or confronting interpersonal problems? No. PROBLEM SOLVING - STEP 2: Does the patient require extra time to make decisions or solve problems, OR does s/he have slight dif ficulty reading, initiating, or self-correcting in unfamiliar situations? No. PROBLEM SOLVING - SCORE: 7-IND MEMORY: MEMORY - STEP 1: Does the patient need help from a person or device, or need extra time to remember frequently encount ered people, daily routines, and executing requests? No. MEMORY - STEP 2: Does the patient have slight difficulty recognizing frequently encountered people, daily routines, or executing requests without the need for repetition or using self-initiated or environmental cues to remember? No. MEMORY - SCORE: 7-IND SIGNATURE PANEL: The following modified sections: Eating - Score, Grooming - Score, Bathing - Score, Dressing - Upper Body - Score, Dressing - Lower Body - Score, Toileting - Score, Bladder Management - Score, Bowel Man agement - Score, Transfers: Bed, Chair, Wheelchair - Score, Transfers: Toilet - Score, Transfers: Melissa wer - Score, Transfers: Tub - Score, Locomotion: Walk - Score, Locomotion: Wheelchair - Score, Compre hension - Score, Expression - Score, Social Interaction - Score, Problem Solving - Score, Memory - Sc ore were [electronically] signed by Kaylen Nguyen RN on ThuAug 04 2018 02:44:28 T-0500 ([facility] Time)
[2018-08-04] MEDS: CRANBERRY FRUIT EXTRACT 200 MG CAP PO SCH ×2 (08:36→20:58)
[2018-08-04] MEDS: LIDOCAINE 5% PATCH TOP SCH (08:36)
[2018-08-04] MEDS: CITALOPRAM 10 MG TABLET PO SCH (08:37)
[2018-08-04] MEDS: FLECAINIDE 100 MG TAB PO SCH ×2 (08:37→20:59)
[2018-08-04] MEDS: VITAMIN D 5,000 UNIT CAP PO SCH (08:38)
[2018-08-04] MEDS: MAGNESIUM OXIDE 400 MG TAB PO SCH ×2 (08:38→20:59)
[2018-08-04] MEDS: FUROSEMIDE 20 MG TABLET PO SCH (08:39)
[2018-08-04] MEDS: GABAPENTIN 300 MG CAP PO SCH ×3 (08:39→20:59)
[2018-08-04] MEDS: CYANOCOBALAMIN 1,000 MCG TAB PO SCH (08:39)
[2018-08-04] MEDS: ACETAMINOPHEN 500 MG TAB PO PRN (08:40)
[2018-08-04] MEDS: APIXABAN 2.5 MG TABLET PO SCH ×2 (08:40→20:59)
[2018-08-04] MEDS: LISINOPRIL 5 MG TAB PO SCH (08:40)
[2018-08-04] MEDS: VALSARTAN 80 MG TAB PO SCH (13:06)
--- NOTE | 2018-08-04 14:50 | FAST ---
SHIFT START DATE/TIME: 08/04/2018 07:00 (CDT) SHIFT END DATE/TIME: 08/04/2018 19:00 (CDT) NAME PRICE ROGERS DATE OF : 1940 DATE OF ADMISSION: 07/05/2018 18:33 (CDT) PHONE: AGE: 78 N# [id number] GENDER: Male ENCOUNTER PHYSICIAN: Dr. Abdirahman Zepeda M.D. 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 EATING: EATING - STEP 1: Does the patient require the assistance of a person or device, or need extra time when eating? Yes. EATING - STEP 2: Does the patient require the assistance of a helper? No, patient only requires an assistive device, O R s/he takes more than reasonable time to eat, OR there is a safety concern, OR s/he requires modifie d food consistency EATING - SCORE: 6-SILVESTRE GROOMING: Comb/brush hair Oral care Wash, rinse, and dry face Wash, rinse, and dry hands GROOMING - STEP 1: Does the patient require the assistance of a person or device, or need extra time when grooming? Yes. GROOMING - STEP 2: Does the patient require the assistance of a helper? No. The patient only requires an assistive devic e, OR takes more than reasonable time to groom, OR there is a concern for safety as the patient groom s GROOMING - SCORE: 6-SILVESTRE BATHING: Activity did not occur on this shift BATHING - SCORE: 0-UNK DRESSING - UPPER BODY: Activity did not occur on this shift ARTICLES SCORE Total number of steps: 0 DRESSING - UPPER BODY - SCORE: 0-UNK DRESSING - UPPER BODY - COMMENTS: Waiting for shower time with therapist DRESSING - LOWER BODY: Activity did not occur on this shift ARTICLES SCORE Total number of steps: 0 DRESSING - LOWER BODY - SCORE: 0-UNK DRESSING - LOWER BODY - COMMENTS: Waiting for therapist and shower time TOILETING: TOILETING - STEP 1: Does the patient require the assistance of a person or device, or need extra time with toileting? Yes . TOILETING - STEP 2: Does the patient require the assistance of a helper? Yes. TOILETING - STEP 3: How much assistance does the patient require from the helper? Hands-on assistance from the helper TOILETING - STEP 4: Of the 3 tasks: 1) Adjusting clothing prior to use, 2) Cleansing of perineal area, 3) Adjusting clot merissa after use; How many tasks does the patient perform WITHOUT assistance of the helper? One task TOILETING - SCORE: 2-MAX BLADDER MANAGEMENT: BLADDER MANAGEMENT - STEP 1: Does the patient control the bladder completely and intentionally without equipment or devices or med ications, and is always continent? No. BLADDER MANAGEMENT - STEP 2: Does the patient require the assistance of a helper? Yes. BLADDER MANAGEMENT - STEP 3: How much assistance does the patient require from the helper? Patient requires contact assistance fro m the helper BLADDER MANAGEMENT - STEP 4: How much contact assistance does the patient require from the helper? Patient requires maximal assist ance, and only performs 25% to 49% of bladder management tasks BLADDER MANAGEMENT - SCORE: 2-MAX BLADDER MANAGEMENT - FREQUENCY OF ACCIDENTS: BLADDER MANAGEMENT(FA) - STEP 1: How many accidents has the patient had during the current shift? 2 BOWEL MANAGEMENT: BOWEL MANAGEMENT - STEP 1: Does the patient control bowels completely and intentionally without equipment devices or medications AND is always continent? No. BOWEL MANAGEMENT - STEP 2: Does the patient require the assistance of a helper? Yes. BOWEL MANAGEMENT - STEP 3: How much assistance does the patient require from the helper? Patient requires moderate assistance - performs 50% to 74% of bowel management tasks BOWEL MANAGEMENT - SCORE: 3-MOD BOWEL MANAGEMENT - FREQUENCY OF ACCIDENTS: BOWEL MANAGEMENT(FA) - STEP 1: How many accidents has the patient had during the current shift? 0 TRANSFERS: BED, CHAIR, WHEELCHAIR: Patient requires more than one helper and/or the use of a mechanical lift is utilized TRANSFERS: BED, CHAIR, WHEELCHAIR - SCORE: 1-DEP TRANSFERS: TOILET: Patient requires more than one helper and/or the use of a mechanical lift is utilized TRANSFERS: TOILET - SCORE: 1-DEP TRANSFERS: SHOWER: Activity did not occur on this shift TRANSFERS: SHOWER - SCORE: 0-UNK TRANSFERS: TUB: Activity did not occur on this shift TRANSFERS: TUB - SCORE: 0-UNK LOCOMOTION: WALK: Activity did not occur on this shift LOCOMOTION: WALK - SCORE: 0-UNK LOCOMOTION: WHEELCHAIR: Activity did not occur on this shift LOCOMOTION: WHEELCHAIR - SCORE: 0-UNK COMPREHENSION: COMPREHENSION: TYPE: Both COMPREHENSION - STEP 1: Does the patient require help from a person or device, or need extra time to understand complex and a bstract ideas (such as current events, finances, discharge planning, medical issues, relationships, e tc)? Yes. COMPREHENSION - STEP 2: Does the patient require help to understand questions or statements about basic needs or ideas (such as hunger, thirst, sleep, safety, daily schedule, room location, or discomfort) half or more of the t aneudy? No. COMPREHENSION - STEP 3: How often does the patient need help to understand directions and conversation about basic needs? Les s than 10% of the time COMPREHENSION - SCORE: 5-SUP EXPRESSION EXPRESSION: TYPE: Both EXPRESSION - STEP 1: Does the patient require help from a person or device, or need extra time expressing complex and abst ract ideas (such as current events, finances, discharge planning, medical issues, relationships, etc) ? Yes. EXPRESSION - STEP 2: Does the patient require help to express basic necessities or ideas (such as hunger, thirst, sleep, s afety, daily schedule, room location, or discomfort) half or more of the time? No. EXPRESSION - STEP 3: How often does the patient need help to express directions and conversation about basic needs? Less t smiley 10% of the time EXPRESSION - SCORE: 5-SUP SOCIAL INTERACTION: SOCIAL INTERACTION - STEP 1: Does the patient require a helper to interact with others in social and therapeutic situations? Yes. SOCIAL INTERACTION - STEP 2: Does the patient interact appropriately half or more of the time? Yes. SOCIAL INTERACTION - STEP 3: How often does the patient need help to interact appropriately? Less than 10% of the time SOCIAL INTERACTION - SCORE: 5-SUP PROBLEM SOLVING: PROBLEM SOLVING - STEP 1: Does the patient need help from a person or device, or need extra time to solve complex problems such as managing a checking account or confronting interpersonal problems? Yes. PROBLEM SOLVING - STEP 2: Does the patient solve basic routine problems half or more of the time? Yes. PROBLEM SOLVING - STEP 3: How often does the patient need help to solve basic routine problems? Less than 10% of the time PROBLEM SOLVING - SCORE: 5-SUP MEMORY: MEMORY - STEP 1: Does the patient need help from a person or device, or need extra time to remember frequently encount ered people, daily routines, and executing requests? Yes. MEMORY - STEP 2: How often does the patient need help to remember frequently encountered people, daily routines, and e xecuting requests? Less than 10% of the time MEMORY - SCORE: 5-SUP SIGNATURE PANEL: The following modified sections: Eating - Score, Grooming - Score, Bathing - Score, Dressing - Upper Body - Score, Dressing - Upper Body - Comments:, Dressing - Lower Body - Score, Dressing - Lower Body - Comments:, Toileting - Score, Bladder Management - Score, Bowel Management - Score, Transfers: Bed , Chair, Wheelchair - Score, Transfers: Toilet - Score, Transfers: Shower - Score, Transfers: Tub - S core, Locomotion: Walk - Score, Locomotion: Wheelchair - Score, Comprehension - Score, Expression - S core, Social Interaction - Score, Problem Solving - Score, Memory - Score were [electronically] sabina d by Vinay NelsonNSin on ThuAug 04 2018 14:49:[address] [facility]-0500 (Central Daylight Time)
--- NOTE | 2018-08-04 16:54 | FAST ---
ENCOUNTER DATE AND TIME: 08/03/2018 08:00 (CDT) NAME PRICE ROGERS DATE OF : 1940 DATE OF ADMISSION: 07/05/2018 18:33 (CDT) PHONE: AGE: 78 SSN# [id number] GENDER: Male ENCOUNTER PHYSICIAN: Dr. Abdirahman Zepeda M.D. 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 EATING: Activity did not occur on this shift EATING - SCORE: 0-UNK GROOMING: Activity did not occur on this shift GROOMING - SCORE: 0-UNK BATHING: Activity did not occur on this shift BATHING - SCORE: 0-UNK DRESSING - UPPER BODY: Activity did not occur on this shift Patient is not dressing in public clothing ARTICLES SCORE Total number of steps: 0 DRESSING - UPPER BODY - SCORE: 0-UNK DRESSING - LOWER BODY: Activity did not occur on this shift Patient is not dressing in public clothing ARTICLES SCORE Total number of steps: 0 DRESSING - LOWER BODY - SCORE: 0-UNK TOILETING: Activity did not occur on this shift TOILETING - SCORE: 0-UNK BLADDER MANAGEMENT: Activity did not occur on this shift BLADDER MANAGEMENT - SCORE: 7-IND BOWEL MANAGEMENT: Activity did not occur on this shift BOWEL MANAGEMENT - SCORE: 7-IND TRANSFERS: BED, CHAIR, WHEELCHAIR: TRANSFERS: BED, CHAIR, WHEELCHAIR - STEP 1: Does the patient require assistance of a person or device, or need extra time with bed, chair, or whe elchair transfers? Yes. TRANSFERS: BED, CHAIR, WHEELCHAIR - STEP 2: Does the patient require the assistance of a helper? Yes. TRANSFERS: BED, CHAIR, WHEELCHAIR - STEP 3: How much assistance does the patient require from the helper? Lifting of the patient TRANSFERS: BED, CHAIR, WHEELCHAIR - STEP 4: Does the helper lift the patient ONLY up? ONLY down? Up AND Down? Up AND Down. TRANSFERS: BED, CHAIR, WHEELCHAIR - SCORE: 2-MAX TRANSFERS: TOILET: Activity did not occur on this shift TRANSFERS: TOILET - SCORE: 0-UNK TRANSFERS: SHOWER: Activity did not occur on this shift TRANSFERS: SHOWER - SCORE: 0-UNK TRANSFERS: TUB: Activity did not occur on this shift TRANSFERS: TUB - SCORE: 0-UNK LOCOMOTION: WALK: Patient walks less than 50 feet LOCOMOTION: WALK - SCORE: 1-DEP LOCOMOTION: WHEELCHAIR: LOCOMOTION: WHEELCHAIR - STEP 1: Does the patient need help to go 150 feet in a wheelchair? Yes. LOCOMOTION: WHEELCHAIR - STEP 2: How much assistance does the patient need from the helper? Patient goes less than 150 feet - but more than 50 feet - with the assistance of only one helper LOCOMOTION: WHEELCHAIR - SCORE: 2-MAX LOCOMOTION: STAIRS: Activity did not occur on this shift LOCOMOTION: STAIRS - SCORE: 0-UNK COMPREHENSION: COMPREHENSION - SCORE: 0-UNK EXPRESSION EXPRESSION - SCORE: 0-UNK SOCIAL INTERACTION: SOCIAL INTERACTION - SCORE: 0-UNK PROBLEM SOLVING: PROBLEM SOLVING - SCORE: 0-UNK MEMORY: MEMORY - SCORE: 0-UNK SIGNATURE PANEL: The following modified sections: Transfers: Bed, Chair, Wheelchair - Score, Transfers: Toilet - Score , Locomotion: Walk - Score, Locomotion: Wheelchair - Score, Locomotion: Stairs - Score were [electron icaorion] signed by Skip Phillips PT on ThuAug 04 2018 16:53:03 T-0500 (Central Daylight Time)
--- NOTE | 2018-08-04 16:56 | FAST ---
ENCOUNTER DATE AND TIME: 08/04/2018 08:00 (CDT) NAME PRICE ROGERS DATE OF : 1940 DATE OF ADMISSION: 07/05/2018 18:33 (CDT) PHONE: AGE: 78 SSN# [id number] GENDER: Male ENCOUNTER PHYSICIAN: Dr. Abdirahman Zepeda M.D. 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 EATING: Activity did not occur on this shift EATING - SCORE: 0-UNK GROOMING: Activity did not occur on this shift GROOMING - SCORE: 0-UNK BATHING: Activity did not occur on this shift BATHING - SCORE: 0-UNK DRESSING - UPPER BODY: Activity did not occur on this shift Patient is not dressing in public clothing ARTICLES SCORE Total number of steps: 0 DRESSING - UPPER BODY - SCORE: 0-UNK DRESSING - LOWER BODY: Activity did not occur on this shift Patient is not dressing in public clothing ARTICLES SCORE Total number of steps: 0 DRESSING - LOWER BODY - SCORE: 0-UNK TOILETING: Activity did not occur on this shift TOILETING - SCORE: 0-UNK BLADDER MANAGEMENT: Activity did not occur on this shift BLADDER MANAGEMENT - SCORE: 7-IND BOWEL MANAGEMENT: Activity did not occur on this shift BOWEL MANAGEMENT - SCORE: 7-IND TRANSFERS: BED, CHAIR, WHEELCHAIR: TRANSFERS: BED, CHAIR, WHEELCHAIR - STEP 1: Does the patient require assistance of a person or device, or need extra time with bed, chair, or whe elchair transfers? Yes. TRANSFERS: BED, CHAIR, WHEELCHAIR - STEP 2: Does the patient require the assistance of a helper? Yes. TRANSFERS: BED, CHAIR, WHEELCHAIR - STEP 3: How much assistance does the patient require from the helper? Lifting of the patient TRANSFERS: BED, CHAIR, WHEELCHAIR - STEP 4: Does the helper lift the patient ONLY up? ONLY down? Up AND Down? ONLY up. TRANSFERS: BED, CHAIR, WHEELCHAIR - SCORE: 3-MOD TRANSFERS: TOILET: Activity did not occur on this shift TRANSFERS: TOILET - SCORE: 0-UNK TRANSFERS: SHOWER: Activity did not occur on this shift TRANSFERS: SHOWER - SCORE: 0-UNK TRANSFERS: TUB: Activity did not occur on this shift TRANSFERS: TUB - SCORE: 0-UNK LOCOMOTION: WALK: Patient walks less than 50 feet LOCOMOTION: WALK - SCORE: 1-DEP LOCOMOTION: WHEELCHAIR: LOCOMOTION: WHEELCHAIR - STEP 1: Does the patient need help to go 150 feet in a wheelchair? Yes. LOCOMOTION: WHEELCHAIR - STEP 2: How much assistance does the patient need from the helper? Patient goes less than 150 feet - but more than 50 feet - with the assistance of only one helper LOCOMOTION: WHEELCHAIR - SCORE: 2-MAX LOCOMOTION: STAIRS: Activity did not occur on this shift LOCOMOTION: STAIRS - SCORE: 0-UNK COMPREHENSION: COMPREHENSION - SCORE: 0-UNK EXPRESSION EXPRESSION - SCORE: 0-UNK SOCIAL INTERACTION: SOCIAL INTERACTION - SCORE: 0-UNK PROBLEM SOLVING: PROBLEM SOLVING - SCORE: 0-UNK MEMORY: MEMORY - SCORE: 0-UNK SIGNATURE PANEL: The following modified sections: Transfers: Bed, Chair, Wheelchair - Score, Transfers: Toilet - Score , Locomotion: Walk - Score, Locomotion: Wheelchair - Score, Locomotion: Stairs - Score were [electron icaorion] signed by Skip Phillips PT on ThuAug 04 2018 16:55:34 T-0500 (Central Daylight Time)
[2018-08-04] MEDS: ATORVASTATIN 10 MG TAB PO SCH (20:59)
[2018-08-04] MEDS: TAMSULOSIN 0.4 MG SR CAP PO SCH (20:59)
[2018-08-04] MEDS: HYDROCORTISONE 1 % CREAM 30GM TOP PRN (21:00)
[2018-08-04] MEDS: ALPRAZOLAM 1 MG TABLET PO PRN (21:00)
[2018-08-04] MEDS: DOCUSATE NA/SENNA CONC 1 TAB PO SCH (21:00)
[2018-08-04] MEDS: POLYVINYL ALCOHOL 1.4% 15 ML EACH EYE PRN (21:00)
--- NOTE | 2018-08-05 02:42 | FAST ---
SHIFT START DATE/TIME: 08/04/2018 19:00 (CDT) SHIFT END DATE/TIME: 08/05/2018 07:00 (CDT) NAME PRICE ROGERS DATE OF : 1940 DATE OF ADMISSION: 07/05/2018 18:33 (CDT) PHONE: AGE: 78 N# [id number] GENDER: Male ENCOUNTER PHYSICIAN: Dr. Abdirahman Zepeda M.D. 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 EATING: Activity did not occur on this shift EATING - SCORE: 0-UNK GROOMING: Activity did not occur on this shift GROOMING - SCORE: 0-UNK BATHING: Activity did not occur on this shift BATHING - SCORE: 0-UNK DRESSING - UPPER BODY: Patient is not dressing in public clothing ARTICLES SCORE Total number of steps: 0 DRESSING - UPPER BODY - SCORE: 0-UNK DRESSING - LOWER BODY: Patient is not dressing in public clothing ARTICLES SCORE Total number of steps: 0 DRESSING - LOWER BODY - SCORE: 0-UNK TOILETING: TOILETING - STEP 1: Does the patient require the assistance of a person or device, or need extra time with toileting? Yes . TOILETING - STEP 2: Does the patient require the assistance of a helper? Yes. TOILETING - STEP 3: How much assistance does the patient require from the helper? Hands-on assistance from the helper TOILETING - STEP 4: Of the 3 tasks: 1) Adjusting clothing prior to use, 2) Cleansing of perineal area, 3) Adjusting clot merissa after use; How many tasks does the patient perform WITHOUT assistance of the helper? No tasks; h elper performs all three tasks TOILETING - SCORE: 1-DEP BLADDER MANAGEMENT: [place] removes incontinent device (Depends, pull ups, etc.); cleans the patient after accident / inco ntinent episode; and, applies new incontinent device. BLADDER MANAGEMENT - SCORE: 1-DEP BLADDER MANAGEMENT - FREQUENCY OF ACCIDENTS: BLADDER MANAGEMENT(FA) - STEP 1: How many accidents has the patient had during the current shift? 1 BOWEL MANAGEMENT: BOWEL MANAGEMENT - STEP 1: Does the patient control bowels completely and intentionally without equipment devices or medications AND is always continent? No. BOWEL MANAGEMENT - STEP 2: Does the patient require the assistance of a helper? No, patient requires medication for control such as stool softeners, suppositories, laxatives, enemas, or OTC medications BOWEL MANAGEMENT - SCORE: 6-SILVESTRE TRANSFERS: BED, CHAIR, WHEELCHAIR: Activity did not occur on this shift TRANSFERS: BED, CHAIR, WHEELCHAIR - SCORE: 0-UNK TRANSFERS: TOILET: Activity did not occur on this shift TRANSFERS: TOILET - SCORE: 0-UNK TRANSFERS: SHOWER: Activity did not occur on this shift TRANSFERS: SHOWER - SCORE: 0-UNK TRANSFERS: TUB: Activity did not occur on this shift TRANSFERS: TUB - SCORE: 0-UNK LOCOMOTION: WALK: Activity did not occur on this shift LOCOMOTION: WALK - SCORE: 0-UNK LOCOMOTION: WHEELCHAIR: Activity did not occur on this shift LOCOMOTION: WHEELCHAIR - SCORE: 0-UNK COMPREHENSION: COMPREHENSION: TYPE: Both COMPREHENSION - STEP 1: Does the patient require help from a person or device, or need extra time to understand complex and a bstract ideas (such as current events, finances, discharge planning, medical issues, relationships, e tc)? No. COMPREHENSION - STEP 2: Does the patient need extra time, require an assistive device (such as glasses for visual comprehensi on or a hearing aid for auditory comprehension) or does s/he have mild difficulty understanding compl ex and abstract information? Yes. COMPREHENSION - SCORE: 6-SILVESTRE EXPRESSION EXPRESSION: TYPE: Both EXPRESSION - STEP 1: Does the patient require help from a person or device, or need extra time expressing complex and abst ract ideas (such as current events, finances, discharge planning, medical issues, relationships, etc) ? No. EXPRESSION - STEP 2: Does the patient need extra time, require an assistive device (such as augmentive communication syste m or a communication board), OR does s/he have mild difficulty expressing complex and abstract ideas (including mild dysarthria or mild word-find problems)? Yes. EXPRESSION - SCORE: 6-SILVESTRE SOCIAL INTERACTION: SOCIAL INTERACTION - STEP 1: Does the patient require a helper to interact with others in social and therapeutic situations? No. SOCIAL INTERACTION - STEP 2: Does the patient need extra time in social situations, OR does s/he interact with staff, other patien ts, and family members ONLY in structured environments, OR does s/he require medication for social in teraction? Yes, patient requires medication for social interaction SOCIAL INTERACTION - SCORE: 6-SILVESTRE PROBLEM SOLVING: PROBLEM SOLVING - STEP 1: Does the patient need help from a person or device, or need extra time to solve complex problems such as managing a checking account or confronting interpersonal problems? Yes. PROBLEM SOLVING - STEP 2: Does the patient solve basic routine problems half or more of the time? Yes. PROBLEM SOLVING - STEP 3: How often does the patient need help to solve basic routine problems? Less than 10% of the time PROBLEM SOLVING - SCORE: 5-SUP MEMORY: MEMORY - STEP 1: Does the patient need help from a person or device, or need extra time to remember frequently encount ered people, daily routines, and executing requests? No. MEMORY - STEP 2: Does the patient have slight difficulty recognizing frequently encountered people, daily routines, or executing requests without the need for repetition or using self-initiated or environmental cues to remember? Yes. MEMORY - SCORE: 6-SILVESTRE SIGNATURE PANEL: The following modified sections: Eating - Score, Grooming - Score, Dressing - Upper Body - Score, Jitendra ssing - Lower Body - Score, Toileting - Score, Bladder Management - Score, Bowel Management - Score, Transfers: Bed, Chair, Wheelchair - Score, Transfers: Toilet - Score, Transfers: Shower - Score, Good sfers: Tub - Score, Locomotion: Walk - Score, Locomotion: Wheelchair - Score, Comprehension - Score, Expression - Score, Social Interaction - Score, Problem Solving - Score, Memory - Score were [electro nically] signed by Valerie Almanzar CNA on ThuAug 05 2018 02:41:26 GMT-0500 (Central Daylight Time)
[2018-08-05 06:09] LABS: Absolute Lymphocytes (CBC) 1.6 K/uL (0.7-4.9); Basophils % 0.5 % (0-1.3); Hematocrit 37.1 % (39.6-49.0); MPV 8.9 fL (7.6-11.3); RBC Red Blood Cell Count 3.96 M/uL (4.33-5.43)
[2018-08-05 06:27] LABS: Albumin 2.9 g/dL (3.4-5.0); Magnesium 2.3 mg/dL (1.8-2.4); Prealbumin 20.7 mg/dL (20-40)
[2018-08-05] MEDS: CRANBERRY FRUIT EXTRACT 200 MG CAP PO SCH ×2 (08:49→21:18)
[2018-08-05] MEDS: LIDOCAINE 5% PATCH TOP SCH (08:49)
[2018-08-05] MEDS: MAGNESIUM OXIDE 400 MG TAB PO SCH ×2 (08:50→21:19)
[2018-08-05] MEDS: CITALOPRAM 10 MG TABLET PO SCH (08:50)
[2018-08-05] MEDS: FUROSEMIDE 20 MG TABLET PO SCH (08:51)
[2018-08-05] MEDS: VITAMIN D 5,000 UNIT CAP PO SCH (08:51)
[2018-08-05] MEDS: LISINOPRIL 5 MG TAB PO SCH (08:52)
[2018-08-05] MEDS: GABAPENTIN 300 MG CAP PO SCH ×3 (08:52→21:19)
[2018-08-05] MEDS: CYANOCOBALAMIN 1,000 MCG TAB PO SCH (08:53)
[2018-08-05] MEDS: VALSARTAN 80 MG TAB PO SCH (12:00)
--- NOTE | 2018-08-05 13:37 | FAST ---
SHIFT START DATE/TIME: 08/05/2018 07:00 (CDT) SHIFT END DATE/TIME: 08/05/2018 19:00 (CDT) NAME PRICE ROGERS DATE OF : 1940 DATE OF ADMISSION: 07/05/2018 18:33 (CDT) PHONE: AGE: 78 N# [id number] GENDER: Male ENCOUNTER PHYSICIAN: Dr. Abdirahman Zepeda M.D. 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 EATING: EATING - STEP 1: Does the patient require the assistance of a person or device, or need extra time when eating? Yes. EATING - STEP 2: Does the patient require the assistance of a helper? Yes. EATING - STEP 3: Does the patient perform half or more of the eating tasks? Yes. EATING - STEP 4: Does the patient need only supervision, cuing, coaxing OR help to apply an orthosis OR help to cut fo od, open containers, pour liquids, or butter bread? Yes. EATING - SCORE: 5-SUP GROOMING: Comb/brush hair Oral care Patient shaved Wash, rinse, and dry face Wash, rinse, and dry hands GROOMING - STEP 1: Does the patient require the assistance of a person or device, or need extra time when grooming? Yes. GROOMING - STEP 2: Does the patient require the assistance of a helper? Yes. GROOMING - STEP 3: How much assistance does the patient require from the helper? Only prior equipment preparation/set up from the helper GROOMING - SCORE: 5-SUP BATHING: Activity did not occur on this shift BATHING - SCORE: 0-UNK DRESSING - UPPER BODY: Activity did not occur on this shift ARTICLES SCORE Total number of steps: 0 DRESSING - UPPER BODY - SCORE: 0-UNK DRESSING - LOWER BODY: Elastic waist pants (three steps) Slip-on shoe - Left foot (one step) Slip-on shoe - Right foot (one step) Underwear (three steps) ARTICLES SCORE Total number of steps: 8 DRESSING - LOWER BODY - STEP 1: Does the patient require help from a person or device, or need extra time when dressing below the [address]? Yes. DRESSING - LOWER BODY - STEP 2: Does the patient require the assistance of a helper? Yes. DRESSING - LOWER BODY - STEP 3: Does the helper touch the patient while dressing? Yes. DRESSING - LOWER BODY - STEP 4: How many of the total steps does the patient complete on his/her own? 0 DRESSING - LOWER BODY - STEP 5: Does patient require total assistance for dressing below the waist such as the helper holding clothin g and performing basically all the activities? Yes. DRESSING - LOWER BODY - SCORE: 1-DEP TOILETING: TOILETING - STEP 1: Does the patient require the assistance of a person or device, or need extra time with toileting? Yes . TOILETING - STEP 2: Does the patient require the assistance of a helper? Yes. TOILETING - STEP 3: How much assistance does the patient require from the helper? Hands-on assistance from the helper TOILETING - STEP 4: Of the 3 tasks: 1) Adjusting clothing prior to use, 2) Cleansing of perineal area, 3) Adjusting clot merissa after use; How many tasks does the patient perform WITHOUT assistance of the helper? One task TOILETING - SCORE: 2-MAX BLADDER MANAGEMENT: [place] removes incontinent device (Depends, pull ups, etc.); cleans the patient after accident / inco ntinent episode; and, applies new incontinent device. BLADDER MANAGEMENT - SCORE: 1-DEP BLADDER MANAGEMENT - FREQUENCY OF ACCIDENTS: BLADDER MANAGEMENT(FA) - STEP 1: How many accidents has the patient had during the current shift? 1 BOWEL MANAGEMENT: BOWEL MANAGEMENT - STEP 1: Does the patient control bowels completely and intentionally without equipment devices or medications AND is always continent? No. BOWEL MANAGEMENT - STEP 2: Does the patient require the assistance of a helper? Yes. BOWEL MANAGEMENT - STEP 3: How much assistance does the patient require from the helper? Patient requires moderate assistance - performs 50% to 74% of bowel management tasks BOWEL MANAGEMENT - SCORE: 3-MOD BOWEL MANAGEMENT - FREQUENCY OF ACCIDENTS: BOWEL MANAGEMENT(FA) - STEP 1: How many accidents has the patient had during the current shift? 0 TRANSFERS: BED, CHAIR, WHEELCHAIR: Patient requires more than one helper and/or the use of a mechanical lift is utilized TRANSFERS: BED, CHAIR, WHEELCHAIR - SCORE: 1-DEP TRANSFERS: TOILET: Patient requires more than one helper and/or the use of a mechanical lift is utilized TRANSFERS: TOILET - SCORE: 1-DEP TRANSFERS: SHOWER: Activity did not occur on this shift TRANSFERS: SHOWER - SCORE: 0-UNK TRANSFERS: TUB: Activity did not occur on this shift TRANSFERS: TUB - SCORE: 0-UNK LOCOMOTION: WALK: Activity did not occur on this shift LOCOMOTION: WALK - SCORE: 0-UNK LOCOMOTION: WHEELCHAIR: Activity did not occur on this shift LOCOMOTION: WHEELCHAIR - SCORE: 0-UNK COMPREHENSION: COMPREHENSION: TYPE: Both COMPREHENSION - STEP 1: Does the patient require help from a person or device, or need extra time to understand complex and a bstract ideas (such as current events, finances, discharge planning, medical issues, relationships, e tc)? Yes. COMPREHENSION - STEP 2: Does the patient require help to understand questions or statements about basic needs or ideas (such as hunger, thirst, sleep, safety, daily schedule, room location, or discomfort) half or more of the t aneudy? No. COMPREHENSION - STEP 3: How often does the patient need help to understand directions and conversation about basic needs? 10% - 24% of the time COMPREHENSION - SCORE: 4-MIN EXPRESSION EXPRESSION: TYPE: Both EXPRESSION - STEP 1: Does the patient require help from a person or device, or need extra time expressing complex and abst ract ideas (such as current events, finances, discharge planning, medical issues, relationships, etc) ? Yes. EXPRESSION - STEP 2: Does the patient require help to express basic necessities or ideas (such as hunger, thirst, sleep, s afety, daily schedule, room location, or discomfort) half or more of the time? No. EXPRESSION - STEP 3: How often does the patient need help to express directions and conversation about basic needs? 10-24% of the time EXPRESSION - SCORE: 4-MIN SOCIAL INTERACTION: SOCIAL INTERACTION - STEP 1: Does the patient require a helper to interact with others in social and therapeutic situations? Yes. SOCIAL INTERACTION - STEP 2: Does the patient interact appropriately half or more of the time? Yes. SOCIAL INTERACTION - STEP 3: How often does the patient need help to interact appropriately? 10-24% of the time SOCIAL INTERACTION - SCORE: 4-MIN PROBLEM SOLVING: PROBLEM SOLVING - STEP 1: Does the patient need help from a person or device, or need extra time to solve complex problems such as managing a checking account or confronting interpersonal problems? Yes. PROBLEM SOLVING - STEP 2: Does the patient solve basic routine problems half or more of the time? Yes. PROBLEM SOLVING - STEP 3: How often does the patient need help to solve basic routine problems? 10%-24% of the time PROBLEM SOLVING - SCORE: 4-MIN MEMORY: MEMORY - STEP 1: Does the patient need help from a person or device, or need extra time to remember frequently encount ered people, daily routines, and executing requests? Yes. MEMORY - STEP 2: How often does the patient need help to remember frequently encountered people, daily routines, and e xecuting requests? 10% - 24% of the time MEMORY - SCORE: 4-MIN SIGNATURE PANEL: The following modified sections: Eating - Score, Grooming - Score, Bathing - Score, Dressing - Upper Body - Score, Dressing - Lower Body - Score, Toileting - Score, Bladder Management - Score, Bowel Man agement - Score, Transfers: Bed, Chair, Wheelchair - Score, Transfers: Shower - Score, Transfers: Tub - Score, Locomotion: Walk - Score, Locomotion: Wheelchair - Score, Comprehension - Score, Expression - Score, Social Interaction - Score, Problem Solving - Score, Memory - Score, Transfers: Toilet - Sc ore were [electronically] signed by Penelope Medrano C.N.A. on ThuAug 05 2018 13:36:07 T-0500 (Centra l Daylight Time)
--- NOTE | 2018-08-05 15:23 | FAST ---
ENCOUNTER DATE AND TIME: 08/05/2018 08:00 (CDT) NAME PRICE ROGERS DATE OF : 1940 DATE OF ADMISSION: 07/05/2018 18:33 (CDT) PHONE: AGE: 78 SSN# [id number] GENDER: Male ENCOUNTER PHYSICIAN: Dr. Abdirahman Zepeda M.D. 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 EATING: Activity did not occur on this shift EATING - SCORE: 0-UNK GROOMING: Activity did not occur on this shift GROOMING - SCORE: 0-UNK BATHING: Activity did not occur on this shift BATHING - SCORE: 0-UNK DRESSING - UPPER BODY: Activity did not occur on this shift Patient is not dressing in public clothing ARTICLES SCORE Total number of steps: 0 DRESSING - UPPER BODY - SCORE: 0-UNK DRESSING - LOWER BODY: Activity did not occur on this shift Patient is not dressing in public clothing ARTICLES SCORE Total number of steps: 0 DRESSING - LOWER BODY - SCORE: 0-UNK TOILETING: Activity did not occur on this shift TOILETING - SCORE: 0-UNK BLADDER MANAGEMENT: Activity did not occur on this shift BLADDER MANAGEMENT - SCORE: 7-IND BOWEL MANAGEMENT: Activity did not occur on this shift BOWEL MANAGEMENT - SCORE: 7-IND TRANSFERS: BED, CHAIR, WHEELCHAIR: TRANSFERS: BED, CHAIR, WHEELCHAIR - STEP 1: Does the patient require assistance of a person or device, or need extra time with bed, chair, or whe elchair transfers? Yes. TRANSFERS: BED, CHAIR, WHEELCHAIR - STEP 2: Does the patient require the assistance of a helper? Yes. TRANSFERS: BED, CHAIR, WHEELCHAIR - STEP 3: How much assistance does the patient require from the helper? Lifting of the patient TRANSFERS: BED, CHAIR, WHEELCHAIR - STEP 4: Does the helper lift the patient ONLY up? ONLY down? Up AND Down? ONLY up. TRANSFERS: BED, CHAIR, WHEELCHAIR - SCORE: 3-MOD TRANSFERS: TOILET: Activity did not occur on this shift TRANSFERS: TOILET - SCORE: 0-UNK TRANSFERS: SHOWER: Activity did not occur on this shift TRANSFERS: SHOWER - SCORE: 0-UNK TRANSFERS: TUB: Activity did not occur on this shift TRANSFERS: TUB - SCORE: 0-UNK LOCOMOTION: WALK: Patient walks less than 50 feet LOCOMOTION: WALK - SCORE: 1-DEP LOCOMOTION: WHEELCHAIR: LOCOMOTION: WHEELCHAIR - STEP 1: Does the patient need help to go 150 feet in a wheelchair? Yes. LOCOMOTION: WHEELCHAIR - STEP 2: How much assistance does the patient need from the helper? Only supervision, cuing, or coaxing LOCOMOTION: WHEELCHAIR - SCORE: 5-SUP LOCOMOTION: STAIRS: Activity did not occur on this shift LOCOMOTION: STAIRS - SCORE: 0-UNK COMPREHENSION: COMPREHENSION - SCORE: 0-UNK EXPRESSION EXPRESSION - SCORE: 0-UNK SOCIAL INTERACTION: SOCIAL INTERACTION - SCORE: 0-UNK PROBLEM SOLVING: PROBLEM SOLVING - SCORE: 0-UNK MEMORY: MEMORY - SCORE: 0-UNK SIGNATURE PANEL: The following modified sections: Transfers: Bed, Chair, Wheelchair - Score, Transfers: Toilet - Score , Locomotion: Walk - Score, Locomotion: Wheelchair - Score, Locomotion: Stairs - Score were [electron daphney] signed by Skip Phillips PT on ThuAug 05 2018 15:22:38 T-0500 (Central Daylight Time)
--- NOTE | 2018-08-05 16:19 | FAST ---
ENCOUNTER DATE AND TIME: 08/04/2018 08:00 (CDT) NAME PRICE ROGERS DATE OF : 1940 DATE OF ADMISSION: 07/05/2018 18:33 (CDT) PHONE: AGE: 78 SSN# [id number] GENDER: Male ENCOUNTER PHYSICIAN: Dr. Abdirahman Zepeda M.D. 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 EATING: Activity did not occur on this shift EATING - SCORE: 0-UNK GROOMING: Comb/brush hair Oral care Patient shaved Wash, rinse, and dry face Wash, rinse, and dry hands GROOMING - STEP 1: Does the patient require the assistance of a person or device, or need extra time when grooming? Yes. GROOMING - STEP 2: Does the patient require the assistance of a helper? No. The patient only requires an assistive devic e, OR takes more than reasonable time to groom, OR there is a concern for safety as the patient groom s GROOMING - SCORE: 6-SILVESTRE BATHING: Abdomen Buttocks Chest Left arm Left lower leg and foot Left upper leg Perineal area Right arm Right lower leg and foot Right upper leg BATHING - STEP 1: Does the patient require the assistance of a person or device, or need extra time when bathing? Yes. BATHING - STEP 2: Does the patient require the assistance of a helper? Yes. BATHING - STEP 3: How much assistance does the patient require from the helper? Only incidental help such as placement of a wash cloth in his/her hand a few times as s/he bathes OR help to bathe just one or two areas of the body BATHING - SCORE: 4-MIN DRESSING - UPPER BODY: T-shirt/pullover shirt (four steps) ARTICLES SCORE Total number of steps: 4 DRESSING - UPPER BODY - STEP 1: Does the patient require help from a person or device, or need extra time when dressing above the [address]? Yes. DRESSING - UPPER BODY - STEP 2: Does the patient require the assistance of a helper? Yes. DRESSING - UPPER BODY - STEP 3: Does the helper touch the patient while dressing? Yes. DRESSING - UPPER BODY - STEP 4: How many of the total steps does the patient complete on his/her own? 3 DRESSING - UPPER BODY - SCORE: 4-MIN DRESSING - LOWER BODY: Elastic waist pants (three steps) Slip-on shoe - Left foot (one step) Slip-on shoe - Right foot (one step) Underwear (three steps) ARTICLES SCORE Total number of steps: 8 DRESSING - LOWER BODY - STEP 1: Does the patient require help from a person or device, or need extra time when dressing below the [address]? Yes. DRESSING - LOWER BODY - STEP 2: Does the patient require the assistance of a helper? Yes. DRESSING - LOWER BODY - STEP 3: Does the helper touch the patient while dressing? Yes. DRESSING - LOWER BODY - STEP 4: How many of the total steps does the patient complete on his/her own? 3 DRESSING - LOWER BODY - STEP 5: Does patient require total assistance for dressing below the waist such as the helper holding clothin g and performing basically all the activities? No. DRESSING - LOWER BODY - SCORE: 2-MAX TOILETING: Activity did not occur on this shift TOILETING - SCORE: 0-UNK BLADDER MANAGEMENT: Activity did not occur on this shift BLADDER MANAGEMENT - SCORE: 7-IND BOWEL MANAGEMENT: Activity did not occur on this shift BOWEL MANAGEMENT - SCORE: 7-IND TRANSFERS: BED, CHAIR, WHEELCHAIR: Activity did not occur on this shift TRANSFERS: BED, CHAIR, WHEELCHAIR - SCORE: 0-UNK TRANSFERS: TOILET: Activity did not occur on this shift TRANSFERS: TOILET - SCORE: 0-UNK TRANSFERS: SHOWER: TRANSFERS: SHOWER - STEP 1: Does the patient require the assistance of a person or device, or need extra time with shower transfe rs? Yes. TRANSFERS: SHOWER - STEP 2: Does the patient require the assistance of a helper? Yes. TRANSFERS: SHOWER - STEP 3: How much assistance does the patient require from the helper? More than incidental help TRANSFERS: SHOWER - STEP 4: How much more help does the patient require from the helper? Lifting the patient up AND down from the wheelchair onto the shower chair TRANSFERS: SHOWER - SCORE: 2-MAX TRANSFERS: TUB: Activity did not occur on this shift TRANSFERS: TUB - SCORE: 0-UNK LOCOMOTION: WALK: Activity did not occur on this shift LOCOMOTION: WALK - SCORE: 0-UNK LOCOMOTION: WHEELCHAIR: Activity did not occur on this shift LOCOMOTION: WHEELCHAIR - SCORE: 0-UNK LOCOMOTION: STAIRS: Activity did not occur on this shift LOCOMOTION: STAIRS - SCORE: 0-UNK COMPREHENSION: COMPREHENSION: TYPE: Both COMPREHENSION - STEP 1: Does the patient require help from a person or device, or need extra time to understand complex and a bstract ideas (such as current events, finances, discharge planning, medical issues, relationships, e tc)? Yes. COMPREHENSION - STEP 2: Does the patient require help to understand questions or statements about basic needs or ideas (such as hunger, thirst, sleep, safety, daily schedule, room location, or discomfort) half or more of the t aneudy? No. COMPREHENSION - STEP 3: How often does the patient need help to understand directions and conversation about basic needs? Les s than 10% of the time COMPREHENSION - SCORE: 5-SUP EXPRESSION EXPRESSION: TYPE: Both EXPRESSION - STEP 1: Does the patient require help from a person or device, or need extra time expressing complex and abst ract ideas (such as current events, finances, discharge planning, medical issues, relationships, etc) ? Yes. EXPRESSION - STEP 2: Does the patient require help to express basic necessities or ideas (such as hunger, thirst, sleep, s afety, daily schedule, room location, or discomfort) half or more of the time? No. EXPRESSION - STEP 3: How often does the patient need help to express directions and conversation about basic needs? Less t smiley 10% of the time EXPRESSION - SCORE: 5-SUP SOCIAL INTERACTION: SOCIAL INTERACTION - STEP 1: Does the patient require a helper to interact with others in social and therapeutic situations? No. SOCIAL INTERACTION - STEP 2: Does the patient need extra time in social situations, OR does s/he interact with staff, other patien ts, and family members ONLY in structured environments, OR does s/he require medication for social in teraction? Yes, patient requires medication for social interaction SOCIAL INTERACTION - SCORE: 6-SILVESTRE PROBLEM SOLVING: PROBLEM SOLVING - STEP 1: Does the patient need help from a person or device, or need extra time to solve complex problems such as managing a checking account or confronting interpersonal problems? Yes. PROBLEM SOLVING - STEP 2: Does the patient solve basic routine problems half or more of the time? Yes. PROBLEM SOLVING - STEP 3: How often does the patient need help to solve basic routine problems? 10%-24% of the time PROBLEM SOLVING - SCORE: 4-MIN MEMORY: MEMORY - STEP 1: Does the patient need help from a person or device, or need extra time to remember frequently encount ered people, daily routines, and executing requests? Yes. MEMORY - STEP 2: How often does the patient need help to remember frequently encountered people, daily routines, and e xecuting requests? 10% - 24% of the time MEMORY - SCORE: 4-MIN SIGNATURE PANEL: The following modified sections: Eating - Score, Grooming - Score, Bathing - Score, Dressing - Upper Body - Score, Dressing - Lower Body - Score, Toileting - Score, Transfers: Bed, Chair, Wheelchair - S core, Transfers: Toilet - Score, Transfers: Tub - Score, Transfers: Shower - Score, Comprehension - S core, Expression - Score, Social Interaction - Score, Problem Solving - Score, Memory - Score were [e lectronically] signed by Shanti Moreno OT on ThuAug 05 2018 16:17:49 T-0500 ([facility] T aneudy)
--- NOTE | 2018-08-05 18:41 | R.PN ---
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 SUBJECTIVE: Pt denied any Shortness of Breath. Pt denied any depression. Patient states that pain is under control. Hgb 12.4, WBC 6.8, prealbumin 20.7. Functional transfers done with total assistance. He ambulated 70' with moderate to maximum assistance using a right hand hemiwalker. left hip x-ray shows no fractures. Therapeutic exercises done with contact guard assistance and multiple rest breaks. VITAL SIGNS Temperature: 98.1 F SBP/DBP: 120/65 Pulse: 68 Resp: 16 MEDICATION ALLERGIES: No Known Drug Allergies (NKDA) ENVIRONMENTAL ALLERGIES: None Known - Substance Allergies None Known - Other Allergies None Known NURSING: - Shower allowing shower - Bladder care per protocol - Skin care per protocol PRECAUTIONS: - Weight Bearing Precaution WBAT left LE ACTIVITIES OOB only with supervision THERAPIES: - Occupational Therapy Evaluate and Treat. Visual Perceptual Training. Cognitive Retraining. - Speech Therapy Cognitive Training. Memory Strategies. Expressive Language Skills. Speech Intelligibility Training. R eceptive Language Skills. Dysphagia Therapy. - Physical Therapy Evaluate and Treat. PHYSICAL EXAM - Gen Alert and awake Lying in bed No apparent distress Oriented to: person, time, and place - Skin No beakdown No abnormalities - Eyes No abnormalities - ENMT No abnormalities - Neck No abnormalities - CVS RRR - Chest No abnormalities - Resp Clear to auscultation - Abd + bowel sounds - GI nondistended Deferred - No abnormalities - Ext Mild left lower extremity edema. - MSK 0/5 strength in the left upper extremity and 2+/5 weakness in left lower extremity. - Neuro 0/5 strength in the left upper extremity and 2+/5 weakness in left lower extremity. - Psych No abnormalities ASSESSMENT: Pt. is a 78 yo Right-handed white male.On 06/25/2018 Pt. presented to [facility] with sudden on set of left-side weakness.On 06/25/2018 he was admitted to [facility] with diagnosis Right MCA. His impairment category is Stroke 01 - Left Body (Right Brain) (01.1).Pre-morbidly, Pt. was independ ent/mod-I in Self-Care, Sphincter Control, Transfers Control, Locomotion, Communication, and Social C ognition; and he had good Sphincter Control.Currently, he has deficits of Self-Care, Transfers Contro l, Locomotion, Communication, Social Cognition, Endurance, Balance, and Safety Awareness.Pt. is now r eferred to [facility] for acute in-patient rehabilitation in order to maximize patient's functional independence in activities of daily living, strength, ROM, and mobility.- Rehab Goal Patient has realistic goal of being discharged at assistance level 6-Maria E to reside at Home with Fam linda/Relatives. MDM/PLAN: - Physical Therapy Gait dysfunction - to improve, our physical therapists will perform initial evaluation of pt's statu s upon admission and devise an individualized program for Gait Training, and Wheel Chair mobility Inability to transfer - to improve, our physical therapists will perform initial evaluation of pt's status upon admission and devise an individualized program for Bed mobility Need for home safety evaluation - to improve, our physical therapists will perform initial evaluatio n of pt's status upon admission and devise an individualized program for Home Evaluation Need in caregiver upon discharge - to improve, our physical therapists will perform initial evaluati on of pt's status upon admission and devise an individualized program for Caregiver Training Edema - to improve, our physical therapists will perform initial evaluation of pt's status upon admi ssion and devise an individualized program for Elevation Training, and Lymphedema Therapy New precaution - to improve, our physical therapists will perform initial evaluation of pt's status upon admission and devise an individualized program for Patient precaution education Poor balance - to improve, our physical therapists will perform initial evaluation of pt's status up on admission and devise an individualized program for Balance Training Poor endurance - to improve, our physical therapists will perform initial evaluation of pt's status upon admission and devise an individualized program for Endurance Training Weakness - to improve, our physical therapists will perform initial evaluation of pt's status upon a dmission and devise an individualized program for Aquatic Therapy, Neuromuscular Reeducation, and Str engthening Achieving independence - to improve, our physical therapists will perform initial evaluation of pt's status upon admission and devise an individualized program for Community Reintegration Activities - Occupational Therapy ADL deficits - to improve, our occupation therapists will perform initial evaluation of pt's status upon admission and devise an individualized program for Bathing, Bed mobility, Community Reintegratio n, Cooking, Dressing, Eating, Fine Motor Skills, Grooming, Homemaking, Kitchen Mobility, Laundry, Pat ient Education, Safety Awareness, Splinting - Positioning, Transfers(Toilet, Tub, Shower), and Wheel Chair Management Cognitive deficits - to improve, our occupation therapists will perform initial evaluation of pt's s tatus upon admission and devise an individualized program for Cognition - orientation Need for care management coordinator - to improve, our occupation therapists will perform initial evaluation of pt's status upon admission and devise an individualized program for Caregiver Training Weakness - to improve, our occupation therapists will perform initial evaluation of pt's status upon admission and devise an individualized program for Aquatic Therapy, Balance, Endurance, UE ROM, and UE strengthening - Diet Type Continue Regular - Diet - Liquid Texture Continue Thin - Tube Feed Continue N/A - Bladder care per protocol - Weight Bearing Precaution WBAT left LE - Skin care per protocol - Diet - Solid Texture Continue Regular Continue Mechanical Soft (Ground) - Shower allowing shower for Dementia, TBI, Stroke, or others FUNCTIONAL STATUS: UPDATED AT WEEKLY TEAM CONFERENCE - Bladder Same accident frequency: 7-Ind - No accidents in the past 7 days - Bowel Same accident frequency: 7-Ind - No accidents in the past 7 days - Walking Same score based on distance walked: 0(N/A) - Wheelchair Same score based on distance traveled: 0(N/A) FUNCTIONAL STATUS: - Self-Care A. Eating sup B. Grooming Anil C. Bathing maxA D. Dressing - Upper Anil E. Dressing - Lower maxA F. Toileting maxA - Sphincter Control G: Bladder control Ind H: Bowel control Ind - Transfers Control I. Bed/Chair/Wheelchair maxA J. Toilet maxA K. Tub/Shower ADNO - Locomotion L. Walk/Wheelchair (C) Dep L. Walk/Wheelchair (W) Dep M. Stairs ADNO - Communication N. Comprehension (B) Anil O. Expression (B) Anil - Social Cognition P. Social Interaction Anil Q. Problem Solving Anil R. Memory Anil - Endurance Fair - Balance Poor - Safety Awareness Fair CURRENT FUNC. DEFICITS: Self-Care, Transfers Control, Locomotion, Communication, Social Cognition, Endurance, Balance, and [place] Awareness SIGNATURE PANEL: (CDT)
[2018-08-05] MEDS: DOCUSATE NA/SENNA CONC 1 TAB PO SCH (21:00)
[2018-08-05] MEDS: APIXABAN 2.5 MG TABLET PO SCH (21:18)
[2018-08-05] MEDS: TAMSULOSIN 0.4 MG SR CAP PO SCH (21:19)
[2018-08-05] MEDS: ALPRAZOLAM 1 MG TABLET PO PRN (21:19)
[2018-08-05] MEDS: ATORVASTATIN 10 MG TAB PO SCH (21:19)
[2018-08-05] MEDS: FLECAINIDE 100 MG TAB PO SCH (21:20)
[2018-08-05] MEDS: POLYVINYL ALCOHOL 1.4% 15 ML EACH EYE PRN (21:24)
--- NOTE | 2018-08-06 02:21 | FAST ---
SHIFT START DATE/TIME: 08/05/2018 19:00 (CDT) SHIFT END DATE/TIME: 08/06/2018 07:00 (CDT) NAME PRICE ROGERS DATE OF : 1940 DATE OF ADMISSION: 07/05/2018 18:33 (CDT) PHONE: AGE: 78 N# [id number] GENDER: Male ENCOUNTER PHYSICIAN: Dr. Abdirahman Zepeda M.D. 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 EATING: Activity did not occur on this shift EATING - SCORE: 0-UNK GROOMING: Activity did not occur on this shift GROOMING - SCORE: 0-UNK BATHING: Activity did not occur on this shift BATHING - SCORE: 0-UNK DRESSING - UPPER BODY: Patient is not dressing in public clothing ARTICLES SCORE Total number of steps: 0 DRESSING - UPPER BODY - SCORE: 0-UNK DRESSING - LOWER BODY: Patient is not dressing in public clothing ARTICLES SCORE Total number of steps: 0 DRESSING - LOWER BODY - SCORE: 0-UNK TOILETING: TOILETING - STEP 1: Does the patient require the assistance of a person or device, or need extra time with toileting? Yes . TOILETING - STEP 2: Does the patient require the assistance of a helper? Yes. TOILETING - STEP 3: How much assistance does the patient require from the helper? Hands-on assistance from the helper TOILETING - STEP 4: Of the 3 tasks: 1) Adjusting clothing prior to use, 2) Cleansing of perineal area, 3) Adjusting clot merissa after use; How many tasks does the patient perform WITHOUT assistance of the helper? No tasks; h elper performs all three tasks TOILETING - SCORE: 1-DEP BLADDER MANAGEMENT: [place] removes incontinent device (Depends, pull ups, etc.); cleans the patient after accident / inco ntinent episode; and, applies new incontinent device. BLADDER MANAGEMENT - SCORE: 1-DEP BLADDER MANAGEMENT - FREQUENCY OF ACCIDENTS: BLADDER MANAGEMENT(FA) - STEP 1: How many accidents has the patient had during the current shift? 1 BOWEL MANAGEMENT: BOWEL MANAGEMENT - STEP 1: Does the patient control bowels completely and intentionally without equipment devices or medications AND is always continent? No. BOWEL MANAGEMENT - STEP 2: Does the patient require the assistance of a helper? No, patient requires medication for control such as stool softeners, suppositories, laxatives, enemas, or OTC medications BOWEL MANAGEMENT - SCORE: 6-SILVESTRE TRANSFERS: BED, CHAIR, WHEELCHAIR: Activity did not occur on this shift TRANSFERS: BED, CHAIR, WHEELCHAIR - SCORE: 0-UNK TRANSFERS: TOILET: Activity did not occur on this shift TRANSFERS: TOILET - SCORE: 0-UNK TRANSFERS: SHOWER: Activity did not occur on this shift TRANSFERS: SHOWER - SCORE: 0-UNK TRANSFERS: TUB: Activity did not occur on this shift TRANSFERS: TUB - SCORE: 0-UNK LOCOMOTION: WALK: Activity did not occur on this shift LOCOMOTION: WALK - SCORE: 0-UNK LOCOMOTION: WHEELCHAIR: Activity did not occur on this shift LOCOMOTION: WHEELCHAIR - SCORE: 0-UNK COMPREHENSION: COMPREHENSION: TYPE: Both COMPREHENSION - STEP 1: Does the patient require help from a person or device, or need extra time to understand complex and a bstract ideas (such as current events, finances, discharge planning, medical issues, relationships, e tc)? No. COMPREHENSION - STEP 2: Does the patient need extra time, require an assistive device (such as glasses for visual comprehensi on or a hearing aid for auditory comprehension) or does s/he have mild difficulty understanding compl ex and abstract information? Yes. COMPREHENSION - SCORE: 6-SILVESTRE EXPRESSION EXPRESSION: TYPE: Both EXPRESSION - STEP 1: Does the patient require help from a person or device, or need extra time expressing complex and abst ract ideas (such as current events, finances, discharge planning, medical issues, relationships, etc) ? No. EXPRESSION - STEP 2: Does the patient need extra time, require an assistive device (such as augmentive communication syste m or a communication board), OR does s/he have mild difficulty expressing complex and abstract ideas (including mild dysarthria or mild word-find problems)? Yes. EXPRESSION - SCORE: 6-SILVESTRE SOCIAL INTERACTION: SOCIAL INTERACTION - STEP 1: Does the patient require a helper to interact with others in social and therapeutic situations? No. SOCIAL INTERACTION - STEP 2: Does the patient need extra time in social situations, OR does s/he interact with staff, other patien ts, and family members ONLY in structured environments, OR does s/he require medication for social in teraction? Yes, patient requires medication for social interaction SOCIAL INTERACTION - SCORE: 6-SILVESTRE PROBLEM SOLVING: PROBLEM SOLVING - STEP 1: Does the patient need help from a person or device, or need extra time to solve complex problems such as managing a checking account or confronting interpersonal problems? Yes. PROBLEM SOLVING - STEP 2: Does the patient solve basic routine problems half or more of the time? Yes. PROBLEM SOLVING - STEP 3: How often does the patient need help to solve basic routine problems? 10%-24% of the time PROBLEM SOLVING - SCORE: 4-MIN MEMORY: MEMORY - STEP 1: Does the patient need help from a person or device, or need extra time to remember frequently encount ered people, daily routines, and executing requests? No. MEMORY - STEP 2: Does the patient have slight difficulty recognizing frequently encountered people, daily routines, or executing requests without the need for repetition or using self-initiated or environmental cues to remember? Yes. MEMORY - SCORE: 6-SILVESTRE SIGNATURE PANEL: The following modified sections: Eating - Score, Grooming - Score, Dressing - Upper Body - Score, Jitendra ssing - Lower Body - Score, Toileting - Score, Bladder Management - Score, Bowel Management - Score, Transfers: Bed, Chair, Wheelchair - Score, Transfers: Toilet - Score, Transfers: Shower - Score, Good sfers: Tub - Score, Locomotion: Walk - Score, Locomotion: Wheelchair - Score, Comprehension - Score, Expression - Score, Social Interaction - Score, Problem Solving - Score, Memory - Score were [electro nically] signed by Valerie Almanzar CNA on ThuAug 06 2018 02:20:55 GMT-0500 (Central Daylight Time)
[2018-08-06] MEDS: ACETAMINOPHEN 500 MG TAB PO PRN ×2 (08:30→20:56)
[2018-08-06] MEDS: CITALOPRAM 10 MG TABLET PO SCH (08:31)
[2018-08-06] MEDS: MAGNESIUM OXIDE 400 MG TAB PO SCH ×2 (08:31→20:56)
[2018-08-06] MEDS: CRANBERRY FRUIT EXTRACT 200 MG CAP PO SCH ×2 (08:32→20:55)
[2018-08-06] MEDS: FUROSEMIDE 20 MG TABLET PO SCH (08:33)
[2018-08-06] MEDS: VITAMIN D 5,000 UNIT CAP PO SCH (08:33)
[2018-08-06] MEDS: FLECAINIDE 100 MG TAB PO SCH ×2 (08:33→20:56)
[2018-08-06] MEDS: GABAPENTIN 300 MG CAP PO SCH ×3 (08:34→20:56)
[2018-08-06] MEDS: LISINOPRIL 5 MG TAB PO SCH (08:35)
[2018-08-06] MEDS: CYANOCOBALAMIN 1,000 MCG TAB PO SCH (08:36)
[2018-08-06] MEDS: APIXABAN 2.5 MG TABLET PO SCH ×2 (08:36→20:56)
--- NOTE | 2018-08-06 09:35 | P.RH.PN ---
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 Goal: Mobility, Transfers, Self Care Vital Signs: Last Vital Signs Temp 97.3 F 08/06/18 06:45 Pulse 67 08/06/18 08:35 Resp 18 08/06/18 06:45 BP 127/74 08/06/18 08:35 Pulse Ox 93 08/06/18 06:45 Laboratory: Laboratory Last Values WBC 6.8 K/uL (4.3-10.9) 08/05/18 05:28 RBC 3.96 M/uL (4.33-5.43) L 08/05/18 05:28 Hgb 12.4 g/dL (13.6-17.9) L 08/05/18 05:28 Hct 37.1 % (39.6-49.0) L 08/05/18 05:28 MCV 93.7 fL (80-100) 08/05/18 05:28 MCH 31.4 pg (27.0-35.0) 08/05/18 05:28 MCHC 33.5 g/dL (32.0-36.0) 08/05/18 05:28 RDW 14.7 % (12.1-15.2) 08/05/18 05:28 Plt Count 235 K/uL (152-406) 08/05/18 05:28 MPV 8.9 fL (7.6-11.3) 08/05/18 05:28 Neutrophils % 62.1 % (41.7-73.7) 08/05/18 05:28 Lymphocytes % 24.0 % (15.3-44.8) 08/05/18 05:28 Monocytes % 8.8 % (3.3-12.3) 08/05/18 05:28 Eosinophils % 4.6 % (0-4.4) H 08/05/18 05:28 Basophils % 0.5 % (0-1.3) 08/05/18 05:28 Absolute Neutrophils 4.2 K/uL (1.8-8.0) 08/05/18 05:28 Absolute Lymphocytes 1.6 K/uL (0.7-4.9) 08/05/18 05:28 Absolute Monocytes 0.6 K/uL (0.1-1.3) 08/05/18 05:28 Absolute Eosinophils 0.3 K/uL (0-0.5) 08/05/18 05:28 Absolute Basophils 0.0 K/uL (0-0.5) 08/05/18 05:28 Sodium 142 mmol/L (136-145) 08/05/18 05:28 Potassium 4.0 mmol/L (3.5-5.1) 08/05/18 05:28 Chloride 106 mmol/L (98-107) 08/05/18 05:28 Carbon Dioxide 30 mmol/L (21-32) 08/05/18 05:28 BUN 13 mg/dL (7-18) 08/05/18 05:28 Creatinine 0.88 mg/dL (0.55-1.3) 08/05/18 05:28 Estimated GFR 84 mL/min (=/>90) L 08/05/18 05:28 Glucose 92 mg/dL (74-106) 08/05/18 05:28 Calcium 9.0 mg/dL (8.5-10.1) 08/05/18 05:28 Magnesium 2.3 mg/dL (1.8-2.4) 08/05/18 05:28 Total Bilirubin 0.7 mg/dL (0.2-1.0) 07/06/18 06:04 Direct Bilirubin 0.2 mg/dL (0-0.2) 07/06/18 06:04 AST 25 U/L (15-37) 07/06/18 06:04 ALT 29 U/L (12-78) 07/06/18 06:04 Alkaline Phosphatase 94 U/L (45-117) 07/06/18 06:04 Serum Total Protein 7.0 g/dL (6.4-8.2) 07/06/18 06:04 Albumin 2.9 g/dL (3.4-5.0) L 08/05/18 05:28 Globulin 3.9 g/dL (2.3-3.5) H 07/06/18 06:04 Albumin/Globulin Ratio 0.8 (1.1-1.8) L 07/06/18 06:04 Prealbumin 20.7 mg/dL (20-40) 08/05/18 05:28 Urine Color Yellow 07/11/18 10:59 Urine Appearance Clear 07/11/18 10:59 Urine pH 6.0 (5.0-7.0) 07/11/18 10:59 Ur Specific [place] 1.020 (1.005-1.030) 07/11/18 10:59 Urine Ketones Negative (NEG) 07/11/18 10:59 Urine Blood Negative (NEG) 07/11/18 10:59 Urine Nitrite Negative (NEG) 07/11/18 10:59 Urine Bilirubin Negative (NEG) 07/11/18 10:59 Urine Urobilinogen 1.0 mg/dL (0.2-1.0) 07/11/18 10:59 Ur Leukocyte Esterase Trace (NEG) H 07/11/18 10:59 Urine RBC <5 /HPF (NONE SEEN) 07/11/18 10:59 Urine WBC <5 /HPF (<5) 07/11/18 10:59 Ur Squamous Epith Cells 5-10 /HPF (NONE SEEN) H 07/11/18 10:59 Urine Bacteria <20 /HPF (NONE SEEN) 07/11/18 10:59 Urine Mucus Slight /HPF (NONE SEEN) 07/07/18 00:10 Urine Culture Reflexed Not needed 07/11/18 10:59 Urine Glucose Negative (NEG) 07/11/18 10:59 Urine Total Protein Negative (NEG) 07/11/18 10:59 Weight: 213 lb 9 oz Wound Present: No Closed Surgical Incision Present: No Negative Pressure Wound Therapy Present: No Physician Update: His labs are reviewed and are stable. He has made good progress with physical and occupational therapy. He is walking up to 40 feet with moderate to maximum assistance. He still requires a lift for transfers and is at maximum assistance level. He will go to care home next week due to he moderate to maximum needs. Medical Issues: DVT Prophylaxis - Eliquis 2.5mg BID Pain Issues: [place] 5/325mg Q6H PRN. Tramadol 50mg Q6H PRN. Lidocaine pacth 5% Daily Comment: Right Groin incision healed S/P thrombectomy Functional Improvement: pt has demonstrated significant progress throughout this past week. pt has improved his ability to ambulate as well as perform functional transfers using a hemiwalker. pt continues to require intense PT, OT , and Speech services to improve functional activity and abilities. Functional Improvement Occupational Therapy: Patient has demonstrated significant improvement toward OT goals. Patient's performance with OT does fluctuate depending on fatigue level, and does continue to require frequent resting breaks and verbal encouragement. Patient would benefit form further agressive OT at inpatient rehabilitation facility to address the goals as set in POC before d/c. Speech Therapy Update: Pt is at MOD I for all functional speech, language, and cognitive-linguistic tasks; pt requires extra time due to mild deficits in attention, memory, and motor speech. Pt requires occasional verbal-visual reminders to implement compensatory dysarthria strategies during functional speech tasks in order to be understood by familiar and unfamiliar listeners across all contexts. Pt presents with trace oral dysphagia characterized by decreased lingual strength/control/coordination resulting in increased oral transit time when swallowing pills, mild L sided pocketing/residual, and anterior L on the left side requiring a lingual sweep or hand wipe. Pt tolerates regular solids, thin liquids with extra time. Summary: Patient's care plan and extermination supervisor goals have been reviewed and revised as necessary. Please see the Rehabilitation Signature page for all necessary signatures.
[2018-08-06] MEDS: LIDOCAINE 5% PATCH TOP SCH (09:58)
[2018-08-06] MEDS: VALSARTAN 80 MG TAB PO SCH (12:31)
--- NOTE | 2018-08-06 15:33 | FAST ---
ENCOUNTER DATE AND TIME: 08/06/2018 08:00 (CDT) NAME PRICE ROGERS DATE OF : 1940 DATE OF ADMISSION: 07/05/2018 18:33 (CDT) PHONE: AGE: 78 SSN# [id number] GENDER: Male ENCOUNTER PHYSICIAN: Dr. Abdirahman Zepeda M.D. 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 EATING: Activity did not occur on this shift EATING - SCORE: 0-UNK GROOMING: Comb/brush hair Patient shaved Wash, rinse, and dry face Wash, rinse, and dry hands GROOMING - STEP 1: Does the patient require the assistance of a person or device, or need extra time when grooming? Yes. GROOMING - STEP 2: Does the patient require the assistance of a helper? Yes. GROOMING - STEP 3: How much assistance does the patient require from the helper? Only prior equipment preparation/set up from the helper GROOMING - SCORE: 5-SUP BATHING: Abdomen Buttocks Chest Left arm Left lower leg and foot Left upper leg Perineal area Right arm Right lower leg and foot Right upper leg BATHING - STEP 1: Does the patient require the assistance of a person or device, or need extra time when bathing? Yes. BATHING - STEP 2: Does the patient require the assistance of a helper? Yes. BATHING - STEP 3: How much assistance does the patient require from the helper? Only incidental help such as placement of a wash cloth in his/her hand a few times as s/he bathes OR help to bathe just one or two areas of the body BATHING - SCORE: 4-MIN DRESSING - UPPER BODY: T-shirt/pullover shirt (four steps) ARTICLES SCORE Total number of steps: 4 DRESSING - UPPER BODY - STEP 1: Does the patient require help from a person or device, or need extra time when dressing above the [address] st? Yes. DRESSING - UPPER BODY - STEP 2: Does the patient require the assistance of a helper? Yes. DRESSING - UPPER BODY - STEP 3: Does the helper touch the patient while dressing? Yes. DRESSING - UPPER BODY - STEP 4: How many of the total steps does the patient complete on his/her own? 2 DRESSING - UPPER BODY - SCORE: 3-MOD DRESSING - LOWER BODY: Elastic waist pants (three steps) Slip-on shoe - Left foot (one step) Slip-on shoe - Right foot (one step) Underwear (three steps) ARTICLES SCORE Total number of steps: 8 DRESSING - LOWER BODY - STEP 1: Does the patient require help from a person or device, or need extra time when dressing below the [address]? Yes. DRESSING - LOWER BODY - STEP 2: Does the patient require the assistance of a helper? Yes. DRESSING - LOWER BODY - STEP 3: Does the helper touch the patient while dressing? Yes. DRESSING - LOWER BODY - STEP 4: How many of the total steps does the patient complete on his/her own? 5 DRESSING - LOWER BODY - SCORE: 3-MOD TOILETING: Activity did not occur on this shift TOILETING - SCORE: 0-UNK BLADDER MANAGEMENT: Activity did not occur on this shift BLADDER MANAGEMENT - SCORE: 7-IND BOWEL MANAGEMENT: Activity did not occur on this shift BOWEL MANAGEMENT - SCORE: 7-IND TRANSFERS: BED, CHAIR, WHEELCHAIR: Activity did not occur on this shift TRANSFERS: BED, CHAIR, WHEELCHAIR - SCORE: 0-UNK TRANSFERS: TOILET: Activity did not occur on this shift TRANSFERS: TOILET - SCORE: 0-UNK TRANSFERS: SHOWER: More than one helper is required for shower transfer TRANSFERS: SHOWER - SCORE: 1-DEP TRANSFERS: TUB: Activity did not occur on this shift TRANSFERS: TUB - SCORE: 0-UNK LOCOMOTION: WALK: Activity did not occur on this shift LOCOMOTION: WALK - SCORE: 0-UNK LOCOMOTION: WHEELCHAIR: Activity did not occur on this shift LOCOMOTION: WHEELCHAIR - SCORE: 0-UNK LOCOMOTION: STAIRS: Activity did not occur on this shift LOCOMOTION: STAIRS - SCORE: 0-UNK COMPREHENSION: COMPREHENSION - SCORE: 0-UNK EXPRESSION EXPRESSION - SCORE: 0-UNK SOCIAL INTERACTION: SOCIAL INTERACTION - SCORE: 0-UNK PROBLEM SOLVING: PROBLEM SOLVING - SCORE: 0-UNK MEMORY: MEMORY - SCORE: 0-UNK SIGNATURE PANEL: The following modified sections: Eating - Score, Grooming - Score, Bathing - Score, Dressing - Upper Body - Score, Dressing - Lower Body - Score, Toileting - Score, Transfers: Bed, Chair, Wheelchair - S core, Transfers: Toilet - Score, Transfers: Shower - Score, Transfers: Tub - Score, Comprehension - S core, Expression - Score, Social Interaction - Score, Problem Solving - Score, Memory - Score were [e lectronically] signed by ROXANNE Wiseman on ThuAug 06 2018 15:32:56 [id number] (Critical access hospital Time)
--- NOTE | 2018-08-06 15:54 | FAST ---
ENCOUNTER DATE AND TIME: 08/06/2018 08:00 (CDT) NAME PRICE ROGERS DATE OF : 1940 DATE OF ADMISSION: 07/05/2018 18:33 (CDT) PHONE: AGE: 78 SSN# [id number] GENDER: Male ENCOUNTER PHYSICIAN: Dr. Abdirahman Zepeda M.D. 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 EATING: Activity did not occur on this shift EATING - SCORE: 0-UNK GROOMING: Activity did not occur on this shift GROOMING - SCORE: 0-UNK BATHING: Activity did not occur on this shift BATHING - SCORE: 0-UNK DRESSING - UPPER BODY: Activity did not occur on this shift Patient is not dressing in public clothing ARTICLES SCORE Total number of steps: 0 DRESSING - UPPER BODY - SCORE: 0-UNK DRESSING - LOWER BODY: Activity did not occur on this shift Patient is not dressing in public clothing ARTICLES SCORE Total number of steps: 0 DRESSING - LOWER BODY - SCORE: 0-UNK TOILETING: Activity did not occur on this shift TOILETING - SCORE: 0-UNK BLADDER MANAGEMENT: Activity did not occur on this shift BLADDER MANAGEMENT - SCORE: 7-IND BOWEL MANAGEMENT: Activity did not occur on this shift BOWEL MANAGEMENT - SCORE: 7-IND TRANSFERS: BED, CHAIR, WHEELCHAIR: TRANSFERS: BED, CHAIR, WHEELCHAIR - STEP 1: Does the patient require assistance of a person or device, or need extra time with bed, chair, or whe elchair transfers? Yes. TRANSFERS: BED, CHAIR, WHEELCHAIR - STEP 2: Does the patient require the assistance of a helper? Yes. TRANSFERS: BED, CHAIR, WHEELCHAIR - STEP 3: How much assistance does the patient require from the helper? Lifting of the patient TRANSFERS: BED, CHAIR, WHEELCHAIR - STEP 4: Does the helper lift the patient ONLY up? ONLY down? Up AND Down? ONLY up. TRANSFERS: BED, CHAIR, WHEELCHAIR - SCORE: 3-MOD TRANSFERS: TOILET: Activity did not occur on this shift TRANSFERS: TOILET - SCORE: 0-UNK TRANSFERS: SHOWER: Activity did not occur on this shift TRANSFERS: SHOWER - SCORE: 0-UNK TRANSFERS: TUB: Activity did not occur on this shift TRANSFERS: TUB - SCORE: 0-UNK LOCOMOTION: WALK: Activity did not occur on this shift LOCOMOTION: WALK - SCORE: 0-UNK LOCOMOTION: WHEELCHAIR: Activity did not occur on this shift LOCOMOTION: WHEELCHAIR - SCORE: 0-UNK LOCOMOTION: STAIRS: Activity did not occur on this shift LOCOMOTION: STAIRS - SCORE: 0-UNK COMPREHENSION: COMPREHENSION - SCORE: 0-UNK EXPRESSION EXPRESSION - SCORE: 0-UNK SOCIAL INTERACTION: SOCIAL INTERACTION - SCORE: 0-UNK PROBLEM SOLVING: PROBLEM SOLVING - SCORE: 0-UNK MEMORY: MEMORY - SCORE: 0-UNK SIGNATURE PANEL: The following modified sections: Transfers: Bed, Chair, Wheelchair - Score, Transfers: Toilet - Score , Locomotion: Walk - Score, Locomotion: Wheelchair - Score, Locomotion: Stairs - Score were [electron ically] signed by Skip Phillips PT on ThuAug 06 2018 15:54:04 T-0500 (Central Daylight Time)
--- NOTE | 2018-08-06 16:23 | FAST ---
SHIFT START DATE/TIME: 08/06/2018 07:00 (CDT) SHIFT END DATE/TIME: 08/06/2018 19:00 (CDT) NAME PRICE ROGERS DATE OF : 1940 DATE OF ADMISSION: 07/05/2018 18:33 (CDT) PHONE: AGE: 78 N# [id number] GENDER: Male ENCOUNTER PHYSICIAN: Dr. Abdirahman Zepeda M.D. 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 EATING: EATING - STEP 1: Does the patient require the assistance of a person or device, or need extra time when eating? Yes. EATING - STEP 2: Does the patient require the assistance of a helper? Yes. EATING - STEP 3: Does the patient perform half or more of the eating tasks? Yes. EATING - STEP 4: Does the patient need only supervision, cuing, coaxing OR help to apply an orthosis OR help to cut fo od, open containers, pour liquids, or butter bread? Yes. EATING - SCORE: 5-SUP GROOMING: Comb/brush hair Oral care GROOMING - STEP 1: Does the patient require the assistance of a person or device, or need extra time when grooming? Yes. GROOMING - STEP 2: Does the patient require the assistance of a helper? No. The patient only requires an assistive devic e, OR takes more than reasonable time to groom, OR there is a concern for safety as the patient groom s GROOMING - SCORE: 6-SILVESTRE BATHING: Activity did not occur on this shift BATHING - SCORE: 0-UNK DRESSING - UPPER BODY: Activity did not occur on this shift ARTICLES SCORE Total number of steps: 0 DRESSING - UPPER BODY - SCORE: 0-UNK DRESSING - LOWER BODY: Elastic waist pants (three steps) ARTICLES SCORE Total number of steps: 3 DRESSING - LOWER BODY - STEP 1: Does the patient require help from a person or device, or need extra time when dressing below the [address]? Yes. DRESSING - LOWER BODY - STEP 2: Does the patient require the assistance of a helper? Yes. DRESSING - LOWER BODY - STEP 3: Does the helper touch the patient while dressing? Yes. DRESSING - LOWER BODY - STEP 4: How many of the total steps does the patient complete on his/her own? 1 DRESSING - LOWER BODY - STEP 5: Does patient require total assistance for dressing below the waist such as the helper holding clothin g and performing basically all the activities? No. DRESSING - LOWER BODY - SCORE: 2-MAX TOILETING: TOILETING - STEP 1: Does the patient require the assistance of a person or device, or need extra time with toileting? Yes . TOILETING - STEP 2: Does the patient require the assistance of a helper? Yes. TOILETING - STEP 3: How much assistance does the patient require from the helper? Hands-on assistance from the helper TOILETING - STEP 4: Of the 3 tasks: 1) Adjusting clothing prior to use, 2) Cleansing of perineal area, 3) Adjusting clot merissa after use; How many tasks does the patient perform WITHOUT assistance of the helper? No tasks; h elper performs all three tasks TOILETING - SCORE: 1-DEP BLADDER MANAGEMENT: [place] removes incontinent device (Depends, pull ups, etc.); cleans the patient after accident / inco ntinent episode; and, applies new incontinent device. BLADDER MANAGEMENT - SCORE: 1-DEP BLADDER MANAGEMENT - FREQUENCY OF ACCIDENTS: BLADDER MANAGEMENT(FA) - STEP 1: How many accidents has the patient had during the current shift? 1 BOWEL MANAGEMENT: BOWEL MANAGEMENT - STEP 1: Does the patient control bowels completely and intentionally without equipment devices or medications AND is always continent? Yes. BOWEL MANAGEMENT - SCORE: 7-IND BOWEL MANAGEMENT - FREQUENCY OF ACCIDENTS: BOWEL MANAGEMENT(FA) - STEP 1: How many accidents has the patient had during the current shift? 0 TRANSFERS: BED, CHAIR, WHEELCHAIR: TRANSFERS: BED, CHAIR, WHEELCHAIR - STEP 1: Does the patient require assistance of a person or device, or need extra time with bed, chair, or whe elchair transfers? Yes. TRANSFERS: BED, CHAIR, WHEELCHAIR - STEP 2: Does the patient require the assistance of a helper? Yes. TRANSFERS: BED, CHAIR, WHEELCHAIR - STEP 3: How much assistance does the patient require from the helper? Lifting of the patient TRANSFERS: BED, CHAIR, WHEELCHAIR - STEP 4: Does the helper lift the patient ONLY up? ONLY down? Up AND Down? Up AND Down. TRANSFERS: BED, CHAIR, WHEELCHAIR - SCORE: 2-MAX TRANSFERS: TOILET: TRANSFERS: TOILET - STEP 1: Does the patient require the assistance of a person or device, or need extra time with toilet transfe rs? Yes. TRANSFERS: TOILET - STEP 2: Does the patient require the assistance of a helper? Yes. TRANSFERS: TOILET - STEP 3: How much assistance does the patient require from the helper? Patient performs less than half of the transferring tasks TRANSFERS: TOILET - STEP 4: Does the patient require total assistance for the toilet transfer such as the helper doing basically all the lifting? No. TRANSFERS: TOILET - SCORE: 2-MAX TRANSFERS: SHOWER: Activity did not occur on this shift TRANSFERS: SHOWER - SCORE: 0-UNK TRANSFERS: TUB: Activity did not occur on this shift TRANSFERS: TUB - SCORE: 0-UNK LOCOMOTION: WALK: Activity did not occur on this shift LOCOMOTION: WALK - SCORE: 0-UNK LOCOMOTION: WHEELCHAIR: Activity did not occur on this shift LOCOMOTION: WHEELCHAIR - SCORE: 0-UNK COMPREHENSION: COMPREHENSION - SCORE: 0-UNK EXPRESSION EXPRESSION - SCORE: 0-UNK SOCIAL INTERACTION: SOCIAL INTERACTION - SCORE: 0-UNK PROBLEM SOLVING: PROBLEM SOLVING - SCORE: 0-UNK MEMORY: MEMORY - SCORE: 0-UNK SIGNATURE PANEL: The following modified sections: Eating - Score, Grooming - Score, Bathing - Score, Dressing - Upper Body - Score, Dressing - Lower Body - Score, Toileting - Score, Bladder Management - Score, Bowel Man agement - Score, Transfers: Bed, Chair, Wheelchair - Score, Transfers: Toilet - Score, Transfers: Melissa wer - Score, Transfers: Tub - Score, Locomotion: Walk - Score, Locomotion: Wheelchair - Score, Compre hension - Score, Expression - Score, Social Interaction - Score, Problem Solving - Score, Memory - Sc ore were [electronically] signed by Pily Conrad CNA on ThuAug 06 2018 16:22:41 T-0500 (Centra l Daylight Time)
[2018-08-06] MEDS: TAMSULOSIN 0.4 MG SR CAP PO SCH (20:55)
[2018-08-06] MEDS: MELATONIN 3 MG TABLET PO PRN (20:55)
[2018-08-06] MEDS: DOCUSATE NA/SENNA CONC 1 TAB PO SCH ×2 (20:55→21:00)
[2018-08-06] MEDS: ATORVASTATIN 10 MG TAB PO SCH (20:56)
--- NOTE | 2018-08-07 02:48 | FAST ---
SHIFT START DATE/TIME: 08/06/2018 19:00 (CDT) SHIFT END DATE/TIME: 08/07/2018 07:00 (CDT) NAME PRICE ROGERS DATE OF : 1940 DATE OF ADMISSION: 07/05/2018 18:33 (CDT) PHONE: AGE: 78 N# [id number] GENDER: Male ENCOUNTER PHYSICIAN: Dr. Abdirahman Zepeda M.D. 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 EATING: Activity did not occur on this shift EATING - SCORE: 0-UNK GROOMING: Activity did not occur on this shift GROOMING - SCORE: 0-UNK BATHING: Activity did not occur on this shift BATHING - SCORE: 0-UNK DRESSING - UPPER BODY: Patient is not dressing in public clothing ARTICLES SCORE Total number of steps: 0 DRESSING - UPPER BODY - SCORE: 0-UNK DRESSING - LOWER BODY: Patient is not dressing in public clothing ARTICLES SCORE Total number of steps: 0 DRESSING - LOWER BODY - SCORE: 0-UNK TOILETING: TOILETING - STEP 1: Does the patient require the assistance of a person or device, or need extra time with toileting? Yes . TOILETING - STEP 2: Does the patient require the assistance of a helper? Yes. TOILETING - STEP 3: How much assistance does the patient require from the helper? Hands-on assistance from the helper TOILETING - STEP 4: Of the 3 tasks: 1) Adjusting clothing prior to use, 2) Cleansing of perineal area, 3) Adjusting clot merissa after use; How many tasks does the patient perform WITHOUT assistance of the helper? No tasks; h elper performs all three tasks TOILETING - SCORE: 1-DEP BLADDER MANAGEMENT: [place] removes incontinent device (Depends, pull ups, etc.); cleans the patient after accident / inco ntinent episode; and, applies new incontinent device. BLADDER MANAGEMENT - SCORE: 1-DEP BOWEL MANAGEMENT: Activity did not occur on this shift BOWEL MANAGEMENT - SCORE: 7-IND TRANSFERS: BED, CHAIR, WHEELCHAIR: Activity did not occur on this shift TRANSFERS: BED, CHAIR, WHEELCHAIR - SCORE: 0-UNK TRANSFERS: TOILET: Activity did not occur on this shift TRANSFERS: TOILET - SCORE: 0-UNK TRANSFERS: SHOWER: Activity did not occur on this shift TRANSFERS: SHOWER - SCORE: 0-UNK TRANSFERS: TUB: Activity did not occur on this shift TRANSFERS: TUB - SCORE: 0-UNK LOCOMOTION: WALK: Activity did not occur on this shift LOCOMOTION: WALK - SCORE: 0-UNK LOCOMOTION: WHEELCHAIR: Activity did not occur on this shift LOCOMOTION: WHEELCHAIR - SCORE: 0-UNK COMPREHENSION: COMPREHENSION: TYPE: Both COMPREHENSION - STEP 1: Does the patient require help from a person or device, or need extra time to understand complex and a bstract ideas (such as current events, finances, discharge planning, medical issues, relationships, e tc)? No. COMPREHENSION - STEP 2: Does the patient need extra time, require an assistive device (such as glasses for visual comprehensi on or a hearing aid for auditory comprehension) or does s/he have mild difficulty understanding compl ex and abstract information? Yes. COMPREHENSION - SCORE: 6-SILVESTRE EXPRESSION EXPRESSION: TYPE: Both EXPRESSION - STEP 1: Does the patient require help from a person or device, or need extra time expressing complex and abst ract ideas (such as current events, finances, discharge planning, medical issues, relationships, etc) ? No. EXPRESSION - STEP 2: Does the patient need extra time, require an assistive device (such as augmentive communication syste m or a communication board), OR does s/he have mild difficulty expressing complex and abstract ideas (including mild dysarthria or mild word-find problems)? Yes. EXPRESSION - SCORE: 6-SILVESTRE SOCIAL INTERACTION: SOCIAL INTERACTION - STEP 1: Does the patient require a helper to interact with others in social and therapeutic situations? No. SOCIAL INTERACTION - STEP 2: Does the patient need extra time in social situations, OR does s/he interact with staff, other patien ts, and family members ONLY in structured environments, OR does s/he require medication for social in teraction? Yes, patient needs extra time SOCIAL INTERACTION - SCORE: 6-SILVESTRE PROBLEM SOLVING: PROBLEM SOLVING - STEP 1: Does the patient need help from a person or device, or need extra time to solve complex problems such as managing a checking account or confronting interpersonal problems? Yes. PROBLEM SOLVING - STEP 2: Does the patient solve basic routine problems half or more of the time? Yes. PROBLEM SOLVING - STEP 3: How often does the patient need help to solve basic routine problems? 10%-24% of the time PROBLEM SOLVING - SCORE: 4-MIN MEMORY: MEMORY - STEP 1: Does the patient need help from a person or device, or need extra time to remember frequently encount ered people, daily routines, and executing requests? No. MEMORY - STEP 2: Does the patient have slight difficulty recognizing frequently encountered people, daily routines, or executing requests without the need for repetition or using self-initiated or environmental cues to remember? Yes. MEMORY - SCORE: 6-SILVESTRE
[2018-08-07] MEDS: LIDOCAINE 5% PATCH TOP SCH (07:24)
[2018-08-07] MEDS: ACETAMINOPHEN 500 MG TAB PO PRN (08:22)
[2018-08-07] MEDS: GABAPENTIN 300 MG CAP PO SCH ×3 (08:23→21:11)
[2018-08-07] MEDS: FUROSEMIDE 20 MG TABLET PO SCH (08:24)
[2018-08-07] MEDS: MAGNESIUM OXIDE 400 MG TAB PO SCH ×2 (08:25→21:09)
[2018-08-07] MEDS: CYANOCOBALAMIN 1,000 MCG TAB PO SCH (08:25)
[2018-08-07] MEDS: CRANBERRY FRUIT EXTRACT 200 MG CAP PO SCH ×2 (08:25→21:10)
[2018-08-07] MEDS: CITALOPRAM 10 MG TABLET PO SCH (08:26)
[2018-08-07] MEDS: FLECAINIDE 100 MG TAB PO SCH ×2 (08:26→21:08)
[2018-08-07] MEDS: LISINOPRIL 5 MG TAB PO SCH (08:27)
[2018-08-07] MEDS: VITAMIN D 5,000 UNIT CAP PO SCH (08:28)
[2018-08-07] MEDS: APIXABAN 2.5 MG TABLET PO SCH ×2 (08:28→21:09)
[2018-08-07] MEDS: VALSARTAN 80 MG TAB PO SCH (13:22)
--- NOTE | 2018-08-07 14:20 | FAST ---
SHIFT START DATE/TIME: 08/07/2018 07:00 (CDT) SHIFT END DATE/TIME: 08/07/2018 19:00 (CDT) NAME PRICE ROGERS DATE OF : 1940 DATE OF ADMISSION: 07/05/2018 18:33 (CDT) PHONE: AGE: 78 N# [id number] GENDER: Male ENCOUNTER PHYSICIAN: Dr. Abdirahman Zepeda M.D. 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 EATING: EATING - STEP 1: Does the patient require the assistance of a person or device, or need extra time when eating? Yes. EATING - STEP 2: Does the patient require the assistance of a helper? No, patient only requires an assistive device, O R s/he takes more than reasonable time to eat, OR there is a safety concern, OR s/he requires modifie d food consistency EATING - SCORE: 6-SILVESTRE GROOMING: Comb/brush hair Oral care Patient shaved Wash, rinse, and dry face Wash, rinse, and dry hands GROOMING - STEP 1: Does the patient require the assistance of a person or device, or need extra time when grooming? Yes. GROOMING - STEP 2: Does the patient require the assistance of a helper? No. The patient only requires an assistive devic e, OR takes more than reasonable time to groom, OR there is a concern for safety as the patient groom s GROOMING - SCORE: 6-SILVESTRE BATHING: Activity did not occur on this shift BATHING - SCORE: 0-UNK DRESSING - UPPER BODY: Activity did not occur on this shift ARTICLES SCORE Total number of steps: 0 DRESSING - UPPER BODY - SCORE: 0-UNK DRESSING - LOWER BODY: Elastic waist pants (three steps) Slip-on shoe - Left foot (one step) Slip-on shoe - Right foot (one step) Underwear (three steps) ARTICLES SCORE Total number of steps: 8 DRESSING - LOWER BODY - STEP 1: Does the patient require help from a person or device, or need extra time when dressing below the [address]? Yes. DRESSING - LOWER BODY - STEP 2: Does the patient require the assistance of a helper? Yes. DRESSING - LOWER BODY - STEP 3: Does the helper touch the patient while dressing? Yes. DRESSING - LOWER BODY - STEP 4: How many of the total steps does the patient complete on his/her own? 0 DRESSING - LOWER BODY - STEP 5: Does patient require total assistance for dressing below the waist such as the helper holding clothin g and performing basically all the activities? Yes. DRESSING - LOWER BODY - SCORE: 1-DEP TOILETING: TOILETING - STEP 1: Does the patient require the assistance of a person or device, or need extra time with toileting? No. TOILETING - SCORE: 7-IND BLADDER MANAGEMENT: [place] removes incontinent device (Depends, pull ups, etc.); cleans the patient after accident / inco ntinent episode; and, applies new incontinent device. BLADDER MANAGEMENT - SCORE: 1-DEP BLADDER MANAGEMENT - FREQUENCY OF ACCIDENTS: BLADDER MANAGEMENT(FA) - STEP 1: How many accidents has the patient had during the current shift? 2 BOWEL MANAGEMENT: BOWEL MANAGEMENT - STEP 1: Does the patient control bowels completely and intentionally without equipment devices or medications AND is always continent? No. BOWEL MANAGEMENT - STEP 2: Does the patient require the assistance of a helper? No, patient requires medication for control such as stool softeners, suppositories, laxatives, enemas, or OTC medications BOWEL MANAGEMENT - SCORE: 6-SILVESTRE BOWEL MANAGEMENT - FREQUENCY OF ACCIDENTS: BOWEL MANAGEMENT(FA) - STEP 1: How many accidents has the patient had during the current shift? 0 TRANSFERS: BED, CHAIR, WHEELCHAIR: Patient requires more than one helper and/or the use of a mechanical lift is utilized TRANSFERS: BED, CHAIR, WHEELCHAIR - SCORE: 1-DEP TRANSFERS: TOILET: Patient requires more than one helper and/or the use of a mechanical lift is utilized TRANSFERS: TOILET - SCORE: 1-DEP TRANSFERS: SHOWER: Activity did not occur on this shift TRANSFERS: SHOWER - SCORE: 0-UNK TRANSFERS: TUB: Activity did not occur on this shift TRANSFERS: TUB - SCORE: 0-UNK LOCOMOTION: WALK: Activity did not occur on this shift LOCOMOTION: WALK - SCORE: 0-UNK LOCOMOTION: WHEELCHAIR: Activity did not occur on this shift LOCOMOTION: WHEELCHAIR - SCORE: 0-UNK COMPREHENSION: COMPREHENSION: TYPE: Both COMPREHENSION - STEP 1: Does the patient require help from a person or device, or need extra time to understand complex and a bstract ideas (such as current events, finances, discharge planning, medical issues, relationships, e tc)? Yes. COMPREHENSION - STEP 2: Does the patient require help to understand questions or statements about basic needs or ideas (such as hunger, thirst, sleep, safety, daily schedule, room location, or discomfort) half or more of the t aneudy? No. COMPREHENSION - STEP 3: How often does the patient need help to understand directions and conversation about basic needs? Les s than 10% of the time COMPREHENSION - SCORE: 5-SUP EXPRESSION EXPRESSION: TYPE: Both EXPRESSION - STEP 1: Does the patient require help from a person or device, or need extra time expressing complex and abst ract ideas (such as current events, finances, discharge planning, medical issues, relationships, etc) ? No. EXPRESSION - STEP 2: Does the patient need extra time, require an assistive device (such as augmentive communication syste m or a communication board), OR does s/he have mild difficulty expressing complex and abstract ideas (including mild dysarthria or mild word-find problems)? Yes. EXPRESSION - SCORE: 6-SILVESTRE SOCIAL INTERACTION: SOCIAL INTERACTION - STEP 1: Does the patient require a helper to interact with others in social and therapeutic situations? No. SOCIAL INTERACTION - STEP 2: Does the patient need extra time in social situations, OR does s/he interact with staff, other patien ts, and family members ONLY in structured environments, OR does s/he require medication for social in teraction? Yes, patient needs extra time SOCIAL INTERACTION - SCORE: 6-SILVESTRE PROBLEM SOLVING: PROBLEM SOLVING - STEP 1: Does the patient need help from a person or device, or need extra time to solve complex problems such as managing a checking account or confronting interpersonal problems? No. PROBLEM SOLVING - STEP 2: Does the patient require extra time to make decisions or solve problems, OR does s/he have slight dif ficulty reading, initiating, or self-correcting in unfamiliar situations? Yes, patient needs extra ti me. PROBLEM SOLVING - SCORE: 6-SILVESTRE MEMORY: MEMORY - STEP 1: Does the patient need help from a person or device, or need extra time to remember frequently encount ered people, daily routines, and executing requests? Yes. MEMORY - STEP 2: How often does the patient need help to remember frequently encountered people, daily routines, and e xecuting requests? Less than 10% of the time MEMORY - SCORE: 5-SUP SIGNATURE PANEL: The following modified sections: Eating - Score, Grooming - Score, Bathing - Score, Dressing - Upper Body - Score, Toileting - Score, Bladder Management - Score, Bowel Management - Score, Transfers: Bed , Chair, Wheelchair - Score, Transfers: Toilet - Score, Transfers: Shower - Score, Transfers: Tub - S core, Locomotion: Walk - Score, Locomotion: Wheelchair - Score, Comprehension - Score, Expression - S core, Social Interaction - Score, Problem Solving - Score, Memory - Score, Dressing - Lower Body - Sc ore were [electronically] signed by Penelope Medrano C.N.A. on Sat Aug 07 2018 14:19:37 T-0500 (Centra [place] Daylight Time)
[2018-08-07] MEDS: DOCUSATE NA/SENNA CONC 1 TAB PO SCH (21:00)
[2018-08-07] MEDS: TAMSULOSIN 0.4 MG SR CAP PO SCH (21:10)
[2018-08-07] MEDS: ATORVASTATIN 10 MG TAB PO SCH (21:11)
[2018-08-08] MEDS: LIDOCAINE 5% PATCH TOP SCH (07:33)
[2018-08-08] MEDS: CRANBERRY FRUIT EXTRACT 200 MG CAP PO SCH ×2 (08:21→21:00)
[2018-08-08] MEDS: ACETAMINOPHEN 500 MG TAB PO PRN (08:23)
[2018-08-08] MEDS: CITALOPRAM 10 MG TABLET PO SCH (08:24)
[2018-08-08] MEDS: FLECAINIDE 100 MG TAB PO SCH ×2 (08:24→21:01)
[2018-08-08] MEDS: LISINOPRIL 5 MG TAB PO SCH (08:25)
[2018-08-08] MEDS: MAGNESIUM OXIDE 400 MG TAB PO SCH ×2 (08:26→21:00)
[2018-08-08] MEDS: GABAPENTIN 300 MG CAP PO SCH ×3 (08:27→21:00)
[2018-08-08] MEDS: CYANOCOBALAMIN 1,000 MCG TAB PO SCH (08:27)
[2018-08-08] MEDS: VITAMIN D 5,000 UNIT CAP PO SCH (08:28)
[2018-08-08] MEDS: FUROSEMIDE 20 MG TABLET PO SCH (08:29)
[2018-08-08] MEDS: APIXABAN 2.5 MG TABLET PO SCH ×2 (08:29→21:00)
[2018-08-08] MEDS: VALSARTAN 80 MG TAB PO SCH (13:09)
[2018-08-08] MEDS: TAMSULOSIN 0.4 MG SR CAP PO SCH (21:00)
[2018-08-08] MEDS: MELATONIN 3 MG TABLET PO PRN (21:00)
[2018-08-08] MEDS: ATORVASTATIN 10 MG TAB PO SCH (21:01)
[2018-08-09] MEDS: LIDOCAINE 5% PATCH TOP SCH (08:09)
[2018-08-09] MEDS: CRANBERRY FRUIT EXTRACT 200 MG CAP PO SCH ×2 (08:09→21:16)
[2018-08-09] MEDS: MAGNESIUM OXIDE 400 MG TAB PO SCH ×2 (08:10→21:23)
[2018-08-09] MEDS: CYANOCOBALAMIN 1,000 MCG TAB PO SCH (08:10)
[2018-08-09] MEDS: VITAMIN D 5,000 UNIT CAP PO SCH (08:10)
[2018-08-09] MEDS: GABAPENTIN 300 MG CAP PO SCH ×3 (08:10→21:23)
[2018-08-09] MEDS: FLECAINIDE 100 MG TAB PO SCH ×2 (08:10→21:17)
[2018-08-09] MEDS: APIXABAN 2.5 MG TABLET PO SCH ×2 (08:11→21:23)
[2018-08-09] MEDS: FUROSEMIDE 20 MG TABLET PO SCH (08:11)
[2018-08-09] MEDS: CITALOPRAM 10 MG TABLET PO SCH (08:11)
[2018-08-09] MEDS: ACETAMINOPHEN 500 MG TAB PO PRN (08:12)
[2018-08-09] MEDS: LISINOPRIL 5 MG TAB PO SCH (08:12)
[2018-08-09] MEDS ORDERED: DOCUSATE NA/SENNA CONC 1 TAB PO PRN (09:53)
[2018-08-09] MEDS: VALSARTAN 80 MG TAB PO SCH (12:00)
--- NOTE | 2018-08-09 14:15 | FAST ---
SHIFT START DATE/TIME: 08/08/2018 07:00 (CDT) SHIFT END DATE/TIME: 08/08/2018 19:00 (CDT) NAME PRICE ROGERS DATE OF : 1940 DATE OF ADMISSION: 07/05/2018 18:33 (CDT) PHONE: AGE: 78 N# [id number] GENDER: Male ENCOUNTER PHYSICIAN: Dr. Abdirahman Zepeda M.D. 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 EATING: EATING - STEP 1: Does the patient require the assistance of a person or device, or need extra time when eating? Yes. EATING - STEP 2: Does the patient require the assistance of a helper? No, patient only requires an assistive device, O R s/he takes more than reasonable time to eat, OR there is a safety concern, OR s/he requires modifie d food consistency EATING - SCORE: 6-SILVESTRE GROOMING: Comb/brush hair Oral care Patient shaved Wash, rinse, and dry face Wash, rinse, and dry hands GROOMING - STEP 1: Does the patient require the assistance of a person or device, or need extra time when grooming? Yes. GROOMING - STEP 2: Does the patient require the assistance of a helper? Yes. GROOMING - STEP 3: How much assistance does the patient require from the helper? Only prior equipment preparation/set up from the helper GROOMING - SCORE: 5-SUP BATHING: Activity did not occur on this shift BATHING - SCORE: 0-UNK DRESSING - UPPER BODY: Activity did not occur on this shift ARTICLES SCORE Total number of steps: 0 DRESSING - UPPER BODY - SCORE: 0-UNK DRESSING - LOWER BODY: Elastic waist pants (three steps) Slip-on shoe - Left foot (one step) Slip-on shoe - Right foot (one step) Underwear (three steps) ARTICLES SCORE Total number of steps: 8 DRESSING - LOWER BODY - STEP 1: Does the patient require help from a person or device, or need extra time when dressing below the [address]? Yes. DRESSING - LOWER BODY - STEP 2: Does the patient require the assistance of a helper? Yes. DRESSING - LOWER BODY - STEP 3: Does the helper touch the patient while dressing? Yes. DRESSING - LOWER BODY - STEP 4: How many of the total steps does the patient complete on his/her own? 0 DRESSING - LOWER BODY - STEP 5: Does patient require total assistance for dressing below the waist such as the helper holding clothin g and performing basically all the activities? Yes. DRESSING - LOWER BODY - SCORE: 1-DEP TOILETING: TOILETING - STEP 1: Does the patient require the assistance of a person or device, or need extra time with toileting? Yes . TOILETING - STEP 2: Does the patient require the assistance of a helper? Yes. TOILETING - STEP 3: How much assistance does the patient require from the helper? Hands-on assistance from the helper TOILETING - STEP 4: Of the 3 tasks: 1) Adjusting clothing prior to use, 2) Cleansing of perineal area, 3) Adjusting clot merissa after use; How many tasks does the patient perform WITHOUT assistance of the helper? One task TOILETING - SCORE: 2-MAX BLADDER MANAGEMENT: BLADDER MANAGEMENT - STEP 1: Does the patient control the bladder completely and intentionally without equipment or devices or med ications, and is always continent? No. BLADDER MANAGEMENT - STEP 2: Does the patient require the assistance of a helper? Yes. BLADDER MANAGEMENT - STEP 3: How much assistance does the patient require from the helper? Patient requires contact assistance fro m the helper BLADDER MANAGEMENT - STEP 4: How much contact assistance does the patient require from the helper? Patient requires maximal assist ance, and only performs 25% to 49% of bladder management tasks BLADDER MANAGEMENT - SCORE: 2-MAX BLADDER MANAGEMENT - FREQUENCY OF ACCIDENTS: BLADDER MANAGEMENT(FA) - STEP 1: How many accidents has the patient had during the current shift? 2 BOWEL MANAGEMENT: BOWEL MANAGEMENT - STEP 1: Does the patient control bowels completely and intentionally without equipment devices or medications AND is always continent? No. BOWEL MANAGEMENT - STEP 2: Does the patient require the assistance of a helper? No, patient requires medication for control such as stool softeners, suppositories, laxatives, enemas, or OTC medications BOWEL MANAGEMENT - SCORE: 6-SILVESTRE BOWEL MANAGEMENT - FREQUENCY OF ACCIDENTS: BOWEL MANAGEMENT(FA) - STEP 1: How many accidents has the patient had during the current shift? 0 TRANSFERS: BED, CHAIR, WHEELCHAIR: Patient requires more than one helper and/or the use of a mechanical lift is utilized TRANSFERS: BED, CHAIR, WHEELCHAIR - SCORE: 1-DEP TRANSFERS: TOILET: Patient requires more than one helper and/or the use of a mechanical lift is utilized TRANSFERS: TOILET - SCORE: 1-DEP TRANSFERS: SHOWER: Activity did not occur on this shift TRANSFERS: SHOWER - SCORE: 0-UNK TRANSFERS: TUB: Activity did not occur on this shift TRANSFERS: TUB - SCORE: 0-UNK LOCOMOTION: WALK: Activity did not occur on this shift LOCOMOTION: WALK - SCORE: 0-UNK LOCOMOTION: WHEELCHAIR: Activity did not occur on this shift LOCOMOTION: WHEELCHAIR - SCORE: 0-UNK COMPREHENSION: COMPREHENSION: TYPE: Both COMPREHENSION - STEP 1: Does the patient require help from a person or device, or need extra time to understand complex and a bstract ideas (such as current events, finances, discharge planning, medical issues, relationships, e tc)? Yes. COMPREHENSION - STEP 2: Does the patient require help to understand questions or statements about basic needs or ideas (such as hunger, thirst, sleep, safety, daily schedule, room location, or discomfort) half or more of the t aneudy? No. COMPREHENSION - STEP 3: How often does the patient need help to understand directions and conversation about basic needs? 10% - 24% of the time COMPREHENSION - SCORE: 4-MIN EXPRESSION EXPRESSION: TYPE: Both EXPRESSION - STEP 1: Does the patient require help from a person or device, or need extra time expressing complex and abst ract ideas (such as current events, finances, discharge planning, medical issues, relationships, etc) ? Yes. EXPRESSION - STEP 2: Does the patient require help to express basic necessities or ideas (such as hunger, thirst, sleep, s afety, daily schedule, room location, or discomfort) half or more of the time? No. EXPRESSION - STEP 3: How often does the patient need help to express directions and conversation about basic needs? Less t smiley 10% of the time EXPRESSION - SCORE: 5-SUP SOCIAL INTERACTION: SOCIAL INTERACTION - STEP 1: Does the patient require a helper to interact with others in social and therapeutic situations? Yes. SOCIAL INTERACTION - STEP 2: Does the patient interact appropriately half or more of the time? Yes. SOCIAL INTERACTION - STEP 3: How often does the patient need help to interact appropriately? Less than 10% of the time SOCIAL INTERACTION - SCORE: 5-SUP PROBLEM SOLVING: PROBLEM SOLVING - STEP 1: Does the patient need help from a person or device, or need extra time to solve complex problems such as managing a checking account or confronting interpersonal problems? Yes. PROBLEM SOLVING - STEP 2: Does the patient solve basic routine problems half or more of the time? Yes. PROBLEM SOLVING - STEP 3: How often does the patient need help to solve basic routine problems? Less than 10% of the time PROBLEM SOLVING - SCORE: 5-SUP MEMORY: MEMORY - STEP 1: Does the patient need help from a person or device, or need extra time to remember frequently encount ered people, daily routines, and executing requests? Yes. MEMORY - STEP 2: How often does the patient need help to remember frequently encountered people, daily routines, and e xecuting requests? 10% - 24% of the time MEMORY - SCORE: 4-MIN SIGNATURE PANEL: The following modified sections: Eating - Score, Bathing - Score, Dressing - Upper Body - Score, Toil eting - Score, Bladder Management - Score, Bowel Management - Score, Transfers: Bed, Chair, Wheelchai r - Score, Transfers: Toilet - Score, Transfers: Shower - Score, Transfers: Tub - Score, Locomotion: Walk - Score, Locomotion: Wheelchair - Score, Comprehension - Score, Expression - Score, Social Inter action - Score, Problem Solving - Score, Memory - Score, Dressing - Lower Body - Score, Grooming - Sc ore were [electronically] signed by Penelope Medrano C.N.A. on ThuAug 09 2018 14:13:37 T-0500 (Centra [place] Daylight Time)
--- NOTE | 2018-08-09 14:35 | FAST ---
SHIFT START DATE/TIME: 08/09/2018 07:00 (CDT) SHIFT END DATE/TIME: 08/09/2018 19:00 (CDT) NAME PRICE ROGERS DATE OF : 1940 DATE OF ADMISSION: 07/05/2018 18:33 (CDT) PHONE: AGE: 78 N# [id number] GENDER: Male ENCOUNTER PHYSICIAN: Dr. Abdirahman Zepeda M.D. 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 EATING: EATING - STEP 1: Does the patient require the assistance of a person or device, or need extra time when eating? No. EATING - SCORE: 7-IND GROOMING: Comb/brush hair Oral care Patient shaved Wash, rinse, and dry face Wash, rinse, and dry hands GROOMING - STEP 1: Does the patient require the assistance of a person or device, or need extra time when grooming? Yes. GROOMING - STEP 2: Does the patient require the assistance of a helper? Yes. GROOMING - STEP 3: How much assistance does the patient require from the helper? Only prior equipment preparation/set up from the helper GROOMING - SCORE: 5-SUP BATHING: Activity did not occur on this shift BATHING - SCORE: 0-UNK DRESSING - UPPER BODY: Activity did not occur on this shift ARTICLES SCORE Total number of steps: 0 DRESSING - UPPER BODY - SCORE: 0-UNK DRESSING - UPPER BODY - COMMENTS: Waiting for therapist and shower time to change clothes DRESSING - LOWER BODY: Elastic waist pants (three steps) Slip-on shoe - Left foot (one step) Slip-on shoe - Right foot (one step) Underwear (three steps) ARTICLES SCORE Total number of steps: 8 DRESSING - LOWER BODY - STEP 1: Does the patient require help from a person or device, or need extra time when dressing below the [address]? Yes. DRESSING - LOWER BODY - STEP 2: Does the patient require the assistance of a helper? Yes. DRESSING - LOWER BODY - STEP 3: Does the helper touch the patient while dressing? Yes. DRESSING - LOWER BODY - STEP 4: How many of the total steps does the patient complete on his/her own? 0 DRESSING - LOWER BODY - STEP 5: Does patient require total assistance for dressing below the waist such as the helper holding clothin g and performing basically all the activities? Yes. DRESSING - LOWER BODY - SCORE: 1-DEP TOILETING: TOILETING - STEP 1: Does the patient require the assistance of a person or device, or need extra time with toileting? Yes . TOILETING - STEP 2: Does the patient require the assistance of a helper? Yes. TOILETING - STEP 3: How much assistance does the patient require from the helper? Hands-on assistance from the helper TOILETING - STEP 4: Of the 3 tasks: 1) Adjusting clothing prior to use, 2) Cleansing of perineal area, 3) Adjusting clot merissa after use; How many tasks does the patient perform WITHOUT assistance of the helper? One task TOILETING - SCORE: 2-MAX BLADDER MANAGEMENT: [place] removes incontinent device (Depends, pull ups, etc.); cleans the patient after accident / inco ntinent episode; and, applies new incontinent device. BLADDER MANAGEMENT - SCORE: 1-DEP BLADDER MANAGEMENT - FREQUENCY OF ACCIDENTS: BLADDER MANAGEMENT(FA) - STEP 1: How many accidents has the patient had during the current shift? 2 BOWEL MANAGEMENT: [place] removes incontinent device (depends, pull ups, etc.); cleans the patient after accident / inco ntinent episode; and, applies new device (depends, pull-ups, padding, etc.). BOWEL MANAGEMENT - SCORE: 1-DEP BOWEL MANAGEMENT - FREQUENCY OF ACCIDENTS: BOWEL MANAGEMENT(FA) - STEP 1: How many accidents has the patient had during the current shift? 13 TRANSFERS: BED, CHAIR, WHEELCHAIR: Patient requires more than one helper and/or the use of a mechanical lift is utilized TRANSFERS: BED, CHAIR, WHEELCHAIR - SCORE: 1-DEP TRANSFERS: TOILET: Patient requires more than one helper and/or the use of a mechanical lift is utilized TRANSFERS: TOILET - SCORE: 1-DEP TRANSFERS: SHOWER: Activity did not occur on this shift TRANSFERS: SHOWER - SCORE: 0-UNK TRANSFERS: TUB: Activity did not occur on this shift TRANSFERS: TUB - SCORE: 0-UNK LOCOMOTION: WALK: Activity did not occur on this shift LOCOMOTION: WALK - SCORE: 0-UNK LOCOMOTION: WHEELCHAIR: Activity did not occur on this shift LOCOMOTION: WHEELCHAIR - SCORE: 0-UNK COMPREHENSION: COMPREHENSION: TYPE: Both COMPREHENSION - STEP 1: Does the patient require help from a person or device, or need extra time to understand complex and a bstract ideas (such as current events, finances, discharge planning, medical issues, relationships, e tc)? No. COMPREHENSION - STEP 2: Does the patient need extra time, require an assistive device (such as glasses for visual comprehensi on or a hearing aid for auditory comprehension) or does s/he have mild difficulty understanding compl ex and abstract information? Yes. COMPREHENSION - SCORE: 6-SILVESTRE EXPRESSION EXPRESSION: TYPE: Both EXPRESSION - STEP 1: Does the patient require help from a person or device, or need extra time expressing complex and abst ract ideas (such as current events, finances, discharge planning, medical issues, relationships, etc) ? No. EXPRESSION - STEP 2: Does the patient need extra time, require an assistive device (such as augmentive communication syste m or a communication board), OR does s/he have mild difficulty expressing complex and abstract ideas (including mild dysarthria or mild word-find problems)? Yes. EXPRESSION - SCORE: 6-SILVESTRE SOCIAL INTERACTION: SOCIAL INTERACTION - STEP 1: Does the patient require a helper to interact with others in social and therapeutic situations? No. SOCIAL INTERACTION - STEP 2: Does the patient need extra time in social situations, OR does s/he interact with staff, other patien ts, and family members ONLY in structured environments, OR does s/he require medication for social in teraction? Yes, patient needs extra time SOCIAL INTERACTION - SCORE: 6-SILVESTRE PROBLEM SOLVING: PROBLEM SOLVING - STEP 1: Does the patient need help from a person or device, or need extra time to solve complex problems such as managing a checking account or confronting interpersonal problems? Yes. PROBLEM SOLVING - STEP 2: Does the patient solve basic routine problems half or more of the time? Yes. PROBLEM SOLVING - STEP 3: How often does the patient need help to solve basic routine problems? 10%-24% of the time PROBLEM SOLVING - SCORE: 4-MIN MEMORY: MEMORY - STEP 1: Does the patient need help from a person or device, or need extra time to remember frequently encount ered people, daily routines, and executing requests? No. MEMORY - STEP 2: Does the patient have slight difficulty recognizing frequently encountered people, daily routines, or executing requests without the need for repetition or using self-initiated or environmental cues to remember? Yes. MEMORY - SCORE: 6-SILVESTRE SIGNATURE PANEL: The following modified sections: Eating - Score, Grooming - Score, Bathing - Score, Dressing - Upper Body - Score, Dressing - Upper Body - Comments:, Dressing - Lower Body - Score, Toileting - Score, Bl adder Management - Score, Bowel Management - Score, Transfers: Bed, Chair, Wheelchair - Score, Transf ers: Toilet - Score, Transfers: Shower - Score, Transfers: Tub - Score, Locomotion: Walk - Score, Loc omotion: Wheelchair - Score, Comprehension - Score, Expression - Score, Social Interaction - Score, P roblem Solving - Score, Memory - Score were [electronically] signed by Vinay NelsonNSin on Thu 14:34:38 T-0500 (Central Daylight Time)
--- NOTE | 2018-08-09 15:56 | FAST ---
ENCOUNTER DATE AND TIME: 08/09/2018 08:00 (CDT) NAME PRICE ROGERS DATE OF : 1940 DATE OF ADMISSION: 07/05/2018 18:33 (CDT) PHONE: AGE: 78 SSN# [id number] GENDER: Male ENCOUNTER PHYSICIAN: Dr. Abdirahman Zepeda M.D. 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 EATING: Activity did not occur on this shift EATING - SCORE: 0-UNK GROOMING: Activity did not occur on this shift GROOMING - SCORE: 0-UNK BATHING: Activity did not occur on this shift BATHING - SCORE: 0-UNK DRESSING - UPPER BODY: Activity did not occur on this shift Patient is not dressing in public clothing ARTICLES SCORE Total number of steps: 0 DRESSING - UPPER BODY - SCORE: 0-UNK DRESSING - LOWER BODY: Activity did not occur on this shift Patient is not dressing in public clothing ARTICLES SCORE Total number of steps: 0 DRESSING - LOWER BODY - SCORE: 0-UNK TOILETING: Activity did not occur on this shift TOILETING - SCORE: 0-UNK BLADDER MANAGEMENT: Activity did not occur on this shift BLADDER MANAGEMENT - SCORE: 7-IND BOWEL MANAGEMENT: Activity did not occur on this shift BOWEL MANAGEMENT - SCORE: 7-IND TRANSFERS: BED, CHAIR, WHEELCHAIR: TRANSFERS: BED, CHAIR, WHEELCHAIR - STEP 1: Does the patient require assistance of a person or device, or need extra time with bed, chair, or whe elchair transfers? Yes. TRANSFERS: BED, CHAIR, WHEELCHAIR - STEP 2: Does the patient require the assistance of a helper? Yes. TRANSFERS: BED, CHAIR, WHEELCHAIR - STEP 3: How much assistance does the patient require from the helper? Lifting of the patient TRANSFERS: BED, CHAIR, WHEELCHAIR - STEP 4: Does the helper lift the patient ONLY up? ONLY down? Up AND Down? ONLY up. TRANSFERS: BED, CHAIR, WHEELCHAIR - SCORE: 3-MOD TRANSFERS: TOILET: TRANSFERS: TOILET - STEP 1: Does the patient require the assistance of a person or device, or need extra time with toilet transfe rs? Yes. TRANSFERS: TOILET - STEP 2: Does the patient require the assistance of a helper? Yes. TRANSFERS: TOILET - STEP 3: How much assistance does the patient require from the helper? Patient performs half or more of the tr ansferring tasks TRANSFERS: TOILET - STEP 4: Does the patient need only incidental help such as contact guard or steadying during toilet transfer? No. Patient needs more than incidental help TRANSFERS: TOILET - SCORE: 3-MOD TRANSFERS: SHOWER: Activity did not occur on this shift TRANSFERS: SHOWER - SCORE: 0-UNK TRANSFERS: TUB: Activity did not occur on this shift TRANSFERS: TUB - SCORE: 0-UNK LOCOMOTION: WALK: LOCOMOTION: WALK - STEP 1: Does the patient need help from a person or device, or need extra time to walk 150 feet? Yes. LOCOMOTION: WALK - STEP 2: How much assistance does the patient require to walk a minimum of 150 feet? Patient walks less than 1 50 feet - but more than 50 feet - with the assistance of only one helper LOCOMOTION: WALK - SCORE: 2-MAX LOCOMOTION: WHEELCHAIR: LOCOMOTION: WHEELCHAIR - STEP 1: Does the patient need help to go 150 feet in a wheelchair? Yes. LOCOMOTION: WHEELCHAIR - STEP 2: How much assistance does the patient need from the helper? Only supervision, cuing, or coaxing LOCOMOTION: WHEELCHAIR - SCORE: 5-SUP LOCOMOTION: STAIRS: Activity did not occur on this shift LOCOMOTION: STAIRS - SCORE: 0-UNK COMPREHENSION: COMPREHENSION - SCORE: 0-UNK EXPRESSION EXPRESSION - SCORE: 0-UNK SOCIAL INTERACTION: SOCIAL INTERACTION - SCORE: 0-UNK PROBLEM SOLVING: PROBLEM SOLVING - SCORE: 0-UNK MEMORY: MEMORY - SCORE: 0-UNK SIGNATURE PANEL: The following modified sections: Transfers: Bed, Chair, Wheelchair - Score, Transfers: Toilet - Score , Locomotion: Walk - Score, Locomotion: Wheelchair - Score, Locomotion: Stairs - Score were [electron ically] signed by Skip Phillips PT on ThuAug 09 2018 15:55:18 GMT-0500 (Central Daylight Time)
--- NOTE | 2018-08-09 17:24 | R.PN ---
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 SUBJECTIVE: Pt denied any Shortness of Breath. Pt denied any depression. Patient states that pain is under control. Hgb 12.4, WBC 6.8, prealbumin 20.7. Functional transfers done with total assistance. He ambulated 54' with minimum assistance using a right hand hemiwalker. Self-propelled wheelchair 150 ' with standby assistance. left hip x-ray shows no fractures. Therapeutic exercises done with contact guard assistance and multiple rest breaks. VITAL SIGNS Temperature: 98.1 F SBP/DBP: 101/60 Pulse: 78 Resp: 16 MEDICATION ALLERGIES: No Known Drug Allergies (NKDA) ENVIRONMENTAL ALLERGIES: None Known - Substance Allergies None Known - Other Allergies None Known NURSING: - Shower allowing shower - Bladder care per protocol - Skin care per protocol PRECAUTIONS: - Weight Bearing Precaution WBAT left LE ACTIVITIES OOB only with supervision THERAPIES: - Occupational Therapy Evaluate and Treat. Visual Perceptual Training. Cognitive Retraining. - Speech Therapy Cognitive Training. Memory Strategies. Expressive Language Skills. Speech Intelligibility Training. R eceptive Language Skills. Dysphagia Therapy. - Physical Therapy Evaluate and Treat. PHYSICAL EXAM - Gen Alert and awake Lying in bed No apparent distress Oriented to: person, time, and place - Skin No beakdown No abnormalities - Eyes No abnormalities - ENMT No abnormalities - Neck No abnormalities - CVS RRR - Chest No abnormalities - Resp Clear to auscultation - Abd + bowel sounds - GI nondistended Deferred - No abnormalities - Ext Mild left lower extremity edema. - MSK 0/5 strength in the left upper extremity and 2+/5 weakness in left lower extremity. - Neuro 0/5 strength in the left upper extremity and 2+/5 weakness in left lower extremity. - Psych No abnormalities ASSESSMENT: Pt. is a 78 yo Right-handed white male.On 06/25/2018 Pt. presented to [facility] with sudden on set of left-side weakness.On 06/25/2018 he was admitted to [facility] with diagnosis Right MCA. His impairment category is Stroke 01 - Left Body (Right Brain) (01.1).Pre-morbidly, Pt. was independ ent/mod-I in Self-Care, Sphincter Control, Transfers Control, Locomotion, Communication, and Social C ognition; and he had good Sphincter Control.Currently, he has deficits of Self-Care, Transfers Contro l, Locomotion, Communication, Social Cognition, Endurance, Balance, and Safety Awareness.Pt. is now r eferred to [facility] for acute in-patient rehabilitation in order to maximize patient's functional independence in activities of daily living, strength, ROM, and mobility.- Rehab Goal Patient has realistic goal of being discharged at assistance level 6-Maria E to reside at Home with Fam linda/Relatives. MDM/PLAN: - Physical Therapy Gait dysfunction - to improve, our physical therapists will perform initial evaluation of pt's statu s upon admission and devise an individualized program for Gait Training, and Wheel Chair mobility Inability to transfer - to improve, our physical therapists will perform initial evaluation of pt's status upon admission and devise an individualized program for Bed mobility Need for home safety evaluation - to improve, our physical therapists will perform initial evaluatio n of pt's status upon admission and devise an individualized program for Home Evaluation Need in caregiver upon discharge - to improve, our physical therapists will perform initial evaluati on of pt's status upon admission and devise an individualized program for Caregiver Training Edema - to improve, our physical therapists will perform initial evaluation of pt's status upon admi ssion and devise an individualized program for Elevation Training, and Lymphedema Therapy New precaution - to improve, our physical therapists will perform initial evaluation of pt's status upon admission and devise an individualized program for Patient precaution education Poor balance - to improve, our physical therapists will perform initial evaluation of pt's status up on admission and devise an individualized program for Balance Training Poor endurance - to improve, our physical therapists will perform initial evaluation of pt's status upon admission and devise an individualized program for Endurance Training Weakness - to improve, our physical therapists will perform initial evaluation of pt's status upon a dmission and devise an individualized program for Aquatic Therapy, Neuromuscular Reeducation, and Str engthening Achieving independence - to improve, our physical therapists will perform initial evaluation of pt's status upon admission and devise an individualized program for Community Reintegration Activities - Occupational Therapy ADL deficits - to improve, our occupation therapists will perform initial evaluation of pt's status upon admission and devise an individualized program for Bathing, Bed mobility, Community Reintegratio n, Cooking, Dressing, Eating, Fine Motor Skills, Grooming, Homemaking, Kitchen Mobility, Laundry, Pat ient Education, Safety Awareness, Splinting - Positioning, Transfers(Toilet, Tub, Shower), and Wheel Chair Management Cognitive deficits - to improve, our occupation therapists will perform initial evaluation of pt's s tatus upon admission and devise an individualized program for Cognition - orientation Need for healthcare consulting manager - to improve, our occupation therapists will perform initial evaluation of pt's status upon admission and devise an individualized program for Caregiver Training Weakness - to improve, our occupation therapists will perform initial evaluation of pt's status upon admission and devise an individualized program for Aquatic Therapy, Balance, Endurance, UE ROM, and UE strengthening - Diet Type Continue Regular - Diet - Liquid Texture Continue Thin - Tube Feed Continue N/A - Bladder care per protocol - Weight Bearing Precaution WBAT left LE - Skin care per protocol - Diet - Solid Texture Continue Regular Continue Mechanical Soft (Ground) - Shower allowing shower for Dementia, TBI, Stroke, or others FUNCTIONAL STATUS: UPDATED AT WEEKLY TEAM CONFERENCE - Bladder Same accident frequency: 7-Ind - No accidents in the past 7 days - Bowel Same accident frequency: 7-Ind - No accidents in the past 7 days - Walking Same score based on distance walked: 0(N/A) - Wheelchair Same score based on distance traveled: 0(N/A) FUNCTIONAL STATUS: - Self-Care A. Eating sup B. Grooming Anil C. Bathing maxA D. Dressing - Upper Anil E. Dressing - Lower maxA F. Toileting maxA - Sphincter Control G: Bladder control Ind H: Bowel control Ind - Transfers Control I. Bed/Chair/Wheelchair maxA J. Toilet maxA K. Tub/Shower ADNO - Locomotion L. Walk/Wheelchair (C) Dep L. Walk/Wheelchair (W) Dep M. Stairs ADNO - Communication N. Comprehension (B) Anil O. Expression (B) Anil - Social Cognition P. Social Interaction Anil Q. Problem Solving Anil R. Memory Anil - Endurance Fair - Balance Poor - Safety Awareness Fair CURRENT FUNC. DEFICITS: Self-Care, Transfers Control, Locomotion, Communication, Social Cognition, Endurance, Balance, and Sa fety Awareness SIGNATURE PANEL: (CDT)
[2018-08-09] MEDS: TAMSULOSIN 0.4 MG SR CAP PO SCH (21:23)
[2018-08-09] MEDS: ATORVASTATIN 10 MG TAB PO SCH (21:23)
[2018-08-09] MEDS: ALPRAZOLAM 1 MG TABLET PO PRN (21:24)
--- NOTE | 2018-08-10 01:46 | FAST ---
SHIFT START DATE/TIME: 08/09/2018 19:00 (CDT) SHIFT END DATE/TIME: 08/10/2018 07:00 (CDT) NAME PRICE ROGERS DATE OF : 1940 DATE OF ADMISSION: 07/05/2018 18:33 (CDT) PHONE: AGE: 78 N# [id number] GENDER: Male ENCOUNTER PHYSICIAN: Dr. Abdirahman Zepeda M.D. 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 EATING: Activity did not occur on this shift EATING - SCORE: 0-UNK GROOMING: Activity did not occur on this shift GROOMING - SCORE: 0-UNK BATHING: Activity did not occur on this shift BATHING - SCORE: 0-UNK DRESSING - UPPER BODY: Patient is not dressing in public clothing ARTICLES SCORE Total number of steps: 0 DRESSING - UPPER BODY - SCORE: 0-UNK DRESSING - LOWER BODY: Patient is not dressing in public clothing ARTICLES SCORE Total number of steps: 0 DRESSING - LOWER BODY - SCORE: 0-UNK TOILETING: TOILETING - STEP 1: Does the patient require the assistance of a person or device, or need extra time with toileting? Yes . TOILETING - STEP 2: Does the patient require the assistance of a helper? Yes. TOILETING - STEP 3: How much assistance does the patient require from the helper? Hands-on assistance from the helper TOILETING - STEP 4: Of the 3 tasks: 1) Adjusting clothing prior to use, 2) Cleansing of perineal area, 3) Adjusting clot merissa after use; How many tasks does the patient perform WITHOUT assistance of the helper? No tasks; h elper performs all three tasks TOILETING - SCORE: 1-DEP BLADDER MANAGEMENT: Emelle removes incontinent device (Depends, pull ups, etc.); cleans the patient after accident / inco ntinent episode; and, applies new incontinent device. BLADDER MANAGEMENT - SCORE: 1-DEP BOWEL MANAGEMENT: Activity did not occur on this shift BOWEL MANAGEMENT - SCORE: 7-IND TRANSFERS: BED, CHAIR, WHEELCHAIR: Patient requires more than one helper and/or the use of a mechanical lift is utilized TRANSFERS: BED, CHAIR, WHEELCHAIR - SCORE: 1-DEP TRANSFERS: TOILET: Patient requires more than one helper and/or the use of a mechanical lift is utilized TRANSFERS: TOILET - SCORE: 1-DEP TRANSFERS: SHOWER: Activity did not occur on this shift TRANSFERS: SHOWER - SCORE: 0-UNK TRANSFERS: TUB: Activity did not occur on this shift TRANSFERS: TUB - SCORE: 0-UNK LOCOMOTION: WALK: Activity did not occur on this shift LOCOMOTION: WALK - SCORE: 0-UNK LOCOMOTION: WHEELCHAIR: Activity did not occur on this shift LOCOMOTION: WHEELCHAIR - SCORE: 0-UNK COMPREHENSION: COMPREHENSION: TYPE: Both COMPREHENSION - STEP 1: Does the patient require help from a person or device, or need extra time to understand complex and a bstract ideas (such as current events, finances, discharge planning, medical issues, relationships, e tc)? No. COMPREHENSION - STEP 2: Does the patient need extra time, require an assistive device (such as glasses for visual comprehensi on or a hearing aid for auditory comprehension) or does s/he have mild difficulty understanding compl ex and abstract information? Yes. COMPREHENSION - SCORE: 6-SILVESTRE EXPRESSION EXPRESSION: TYPE: Both EXPRESSION - STEP 1: Does the patient require help from a person or device, or need extra time expressing complex and abst ract ideas (such as current events, finances, discharge planning, medical issues, relationships, etc) ? No. EXPRESSION - STEP 2: Does the patient need extra time, require an assistive device (such as augmentive communication syste m or a communication board), OR does s/he have mild difficulty expressing complex and abstract ideas (including mild dysarthria or mild word-find problems)? No. EXPRESSION - SCORE: 7-IND SOCIAL INTERACTION: SOCIAL INTERACTION - STEP 1: Does the patient require a helper to interact with others in social and therapeutic situations? No. SOCIAL INTERACTION - STEP 2: Does the patient need extra time in social situations, OR does s/he interact with staff, other patien ts, and family members ONLY in structured environments, OR does s/he require medication for social in teraction? Yes, patient requires medication for social interaction SOCIAL INTERACTION - SCORE: 6-SILVESTRE PROBLEM SOLVING: PROBLEM SOLVING - STEP 1: Does the patient need help from a person or device, or need extra time to solve complex problems such as managing a checking account or confronting interpersonal problems? Yes. PROBLEM SOLVING - STEP 2: Does the patient solve basic routine problems half or more of the time? Yes. PROBLEM SOLVING - STEP 3: How often does the patient need help to solve basic routine problems? 10%-24% of the time PROBLEM SOLVING - SCORE: 4-MIN MEMORY: MEMORY - STEP 1: Does the patient need help from a person or device, or need extra time to remember frequently encount ered people, daily routines, and executing requests? No. MEMORY - STEP 2: Does the patient have slight difficulty recognizing frequently encountered people, daily routines, or executing requests without the need for repetition or using self-initiated or environmental cues to remember? Yes. MEMORY - SCORE: 6-SILVESTRE SIGNATURE PANEL: The following modified sections: Eating - Score, Grooming - Score, Dressing - Upper Body - Score, Jitendra ssing - Lower Body - Score, Toileting - Score, Bladder Management - Score, Bowel Management - Score, Transfers: Bed, Chair, Wheelchair - Score, Transfers: Toilet - Score, Transfers: Shower - Score, Good sfers: Tub - Score, Locomotion: Walk - Score, Locomotion: Wheelchair - Score, Comprehension - Score, Expression - Score, Social Interaction - Score, Problem Solving - Score, Memory - Score were [electro nically] signed by Valerie Almanzar CNA on ThuAug 10 2018 01:46:17 T-0500 (Central Daylight Time)
[2018-08-10] MEDS: LISINOPRIL 5 MG TAB PO SCH (08:00)
[2018-08-10] MEDS: CRANBERRY FRUIT EXTRACT 200 MG CAP PO SCH ×2 (08:28→20:55)
[2018-08-10] MEDS: LIDOCAINE 5% PATCH TOP SCH (08:28)
[2018-08-10] MEDS: VITAMIN D 5,000 UNIT CAP PO SCH (08:29)
[2018-08-10] MEDS: ACETAMINOPHEN 500 MG TAB PO PRN (08:29)
[2018-08-10] MEDS: GABAPENTIN 300 MG CAP PO SCH ×3 (08:29→20:55)
[2018-08-10] MEDS: MAGNESIUM OXIDE 400 MG TAB PO SCH ×2 (08:30→20:55)
[2018-08-10] MEDS: APIXABAN 2.5 MG TABLET PO SCH ×2 (08:30→20:55)
[2018-08-10] MEDS: FLECAINIDE 100 MG TAB PO SCH ×2 (08:30→20:56)
[2018-08-10] MEDS: CYANOCOBALAMIN 1,000 MCG TAB PO SCH (08:31)
[2018-08-10] MEDS: FUROSEMIDE 20 MG TABLET PO SCH (08:31)
[2018-08-10] MEDS: CITALOPRAM 10 MG TABLET PO SCH (08:32)
[2018-08-10] MEDS: VALSARTAN 80 MG TAB PO SCH (12:00)
--- NOTE | 2018-08-10 16:45 | FAST ---
SHIFT START DATE/TIME: 08/10/2018 07:00 (CDT) SHIFT END DATE/TIME: 08/10/2018 19:00 (CDT) NAME PRICE ROGERS DATE OF : 1940 DATE OF ADMISSION: 07/05/2018 18:33 (CDT) PHONE: AGE: 78 N# [id number] GENDER: Male ENCOUNTER PHYSICIAN: Dr. Abdirahman Zepeda M.D. 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 EATING: EATING - STEP 1: Does the patient require the assistance of a person or device, or need extra time when eating? Yes. EATING - STEP 2: Does the patient require the assistance of a helper? No, patient only requires an assistive device, O R s/he takes more than reasonable time to eat, OR there is a safety concern, OR s/he requires modifie d food consistency EATING - SCORE: 6-SILVESTRE GROOMING: Comb/brush hair Oral care Patient shaved Wash, rinse, and dry face Wash, rinse, and dry hands GROOMING - STEP 1: Does the patient require the assistance of a person or device, or need extra time when grooming? Yes. GROOMING - STEP 2: Does the patient require the assistance of a helper? Yes. GROOMING - STEP 3: How much assistance does the patient require from the helper? Only prior equipment preparation/set up from the helper GROOMING - SCORE: 5-SUP BATHING: Activity did not occur on this shift BATHING - SCORE: 0-UNK DRESSING - UPPER BODY: T-shirt/pullover shirt (four steps) ARTICLES SCORE Total number of steps: 4 DRESSING - UPPER BODY - STEP 1: Does the patient require help from a person or device, or need extra time when dressing above the [address]? Yes. DRESSING - UPPER BODY - STEP 2: Does the patient require the assistance of a helper? Yes. DRESSING - UPPER BODY - STEP 3: Does the helper touch the patient while dressing? Yes. DRESSING - UPPER BODY - STEP 4: How many of the total steps does the patient complete on his/her own? 1 DRESSING - UPPER BODY - STEP 5: Does Patient require total assistance for dressing above the waist such as the helper holding clothin g and performing basically all the activities? Yes. DRESSING - UPPER BODY - SCORE: 1-DEP DRESSING - LOWER BODY: Elastic waist pants (three steps) Slip-on shoe - Left foot (one step) Slip-on shoe - Right foot (one step) Underwear (three steps) ARTICLES SCORE Total number of steps: 8 DRESSING - LOWER BODY - STEP 1: Does the patient require help from a person or device, or need extra time when dressing below the [address]? Yes. DRESSING - LOWER BODY - STEP 2: Does the patient require the assistance of a helper? Yes. DRESSING - LOWER BODY - STEP 3: Does the helper touch the patient while dressing? Yes. DRESSING - LOWER BODY - STEP 4: How many of the total steps does the patient complete on his/her own? 1 DRESSING - LOWER BODY - STEP 5: Does patient require total assistance for dressing below the waist such as the helper holding clothin g and performing basically all the activities? Yes. DRESSING - LOWER BODY - SCORE: 1-DEP TOILETING: TOILETING - STEP 1: Does the patient require the assistance of a person or device, or need extra time with toileting? Yes . TOILETING - STEP 2: Does the patient require the assistance of a helper? Yes. TOILETING - STEP 3: How much assistance does the patient require from the helper? Hands-on assistance from the helper TOILETING - STEP 4: Of the 3 tasks: 1) Adjusting clothing prior to use, 2) Cleansing of perineal area, 3) Adjusting clot merissa after use; How many tasks does the patient perform WITHOUT assistance of the helper? One task TOILETING - SCORE: 2-MAX BLADDER MANAGEMENT: BLADDER MANAGEMENT - STEP 1: Does the patient control the bladder completely and intentionally without equipment or devices or med ications, and is always continent? No. BLADDER MANAGEMENT - STEP 2: Does the patient require the assistance of a helper? Yes. BLADDER MANAGEMENT - STEP 3: How much assistance does the patient require from the helper? Patient requires contact assistance fro m the helper BLADDER MANAGEMENT - STEP 4: How much contact assistance does the patient require from the helper? Patient requires maximal assist ance, and only performs 25% to 49% of bladder management tasks BLADDER MANAGEMENT - SCORE: 2-MAX BLADDER MANAGEMENT - FREQUENCY OF ACCIDENTS: BLADDER MANAGEMENT(FA) - STEP 1: How many accidents has the patient had during the current shift? 1 BOWEL MANAGEMENT: BOWEL MANAGEMENT - STEP 1: Does the patient control bowels completely and intentionally without equipment devices or medications AND is always continent? No. BOWEL MANAGEMENT - STEP 2: Does the patient require the assistance of a helper? Yes. BOWEL MANAGEMENT - STEP 3: How much assistance does the patient require from the helper? Patient requires supervision, stand by, cueing, coaxing, or setup of equipment - placing within reach of patient and emptying device / bedpa nd or BSC bucket - to maintain either satisfactory bowel pattern or managing an external device such as an absorbent pad, colostomy bag / ileostomy bag BOWEL MANAGEMENT - SCORE: 5-SUP BOWEL MANAGEMENT - FREQUENCY OF ACCIDENTS: BOWEL MANAGEMENT(FA) - STEP 1: How many accidents has the patient had during the current shift? 0 TRANSFERS: BED, CHAIR, WHEELCHAIR: Patient requires more than one helper and/or the use of a mechanical lift is utilized TRANSFERS: BED, CHAIR, WHEELCHAIR - SCORE: 1-DEP TRANSFERS: TOILET: Patient requires more than one helper and/or the use of a mechanical lift is utilized TRANSFERS: TOILET - SCORE: 1-DEP TRANSFERS: SHOWER: Activity did not occur on this shift TRANSFERS: SHOWER - SCORE: 0-UNK TRANSFERS: TUB: Activity did not occur on this shift TRANSFERS: TUB - SCORE: 0-UNK LOCOMOTION: WALK: Activity did not occur on this shift LOCOMOTION: WALK - SCORE: 0-UNK LOCOMOTION: WHEELCHAIR: Activity did not occur on this shift LOCOMOTION: WHEELCHAIR - SCORE: 0-UNK COMPREHENSION: COMPREHENSION: TYPE: Both COMPREHENSION - STEP 1: Does the patient require help from a person or device, or need extra time to understand complex and a bstract ideas (such as current events, finances, discharge planning, medical issues, relationships, e tc)? Yes. COMPREHENSION - STEP 2: Does the patient require help to understand questions or statements about basic needs or ideas (such as hunger, thirst, sleep, safety, daily schedule, room location, or discomfort) half or more of the t aneudy? No. COMPREHENSION - STEP 3: How often does the patient need help to understand directions and conversation about basic needs? Les s than 10% of the time COMPREHENSION - SCORE: 5-SUP EXPRESSION EXPRESSION: TYPE: Both EXPRESSION - STEP 1: Does the patient require help from a person or device, or need extra time expressing complex and abst ract ideas (such as current events, finances, discharge planning, medical issues, relationships, etc) ? Yes. EXPRESSION - STEP 2: Does the patient require help to express basic necessities or ideas (such as hunger, thirst, sleep, s afety, daily schedule, room location, or discomfort) half or more of the time? No. EXPRESSION - STEP 3: How often does the patient need help to express directions and conversation about basic needs? Less t smiley 10% of the time EXPRESSION - SCORE: 5-SUP SOCIAL INTERACTION: SOCIAL INTERACTION - STEP 1: Does the patient require a helper to interact with others in social and therapeutic situations? Yes. SOCIAL INTERACTION - STEP 2: Does the patient interact appropriately half or more of the time? Yes. SOCIAL INTERACTION - STEP 3: How often does the patient need help to interact appropriately? Less than 10% of the time SOCIAL INTERACTION - SCORE: 5-SUP PROBLEM SOLVING: PROBLEM SOLVING - STEP 1: Does the patient need help from a person or device, or need extra time to solve complex problems such as managing a checking account or confronting interpersonal problems? Yes. PROBLEM SOLVING - STEP 2: Does the patient solve basic routine problems half or more of the time? Yes. PROBLEM SOLVING - STEP 3: How often does the patient need help to solve basic routine problems? Less than 10% of the time PROBLEM SOLVING - SCORE: 5-SUP MEMORY: MEMORY - STEP 1: Does the patient need help from a person or device, or need extra time to remember frequently encount ered people, daily routines, and executing requests? Yes. MEMORY - STEP 2: How often does the patient need help to remember frequently encountered people, daily routines, and e xecuting requests? Less than 10% of the time MEMORY - SCORE: 5-SUP SIGNATURE PANEL: The following modified sections: Grooming - Score, Bathing - Score, Dressing - Upper Body - Score, Dr essing - Lower Body - Score, Toileting - Score, Bladder Management - Score, Bowel Management - Score, Transfers: Bed, Chair, Wheelchair - Score, Transfers: Toilet - Score, Transfers: Shower - Score, Tra nsfers: Tub - Score, Locomotion: Walk - Score, Locomotion: Wheelchair - Score, Comprehension - Score, Expression - Score, Social Interaction - Score, Problem Solving - Score, Memory - Score, Eating - Sc ore were [electronically] signed by Penelope Medrano C.N.A. on ThuAug 10 2018 16:44:00 T-0500 (Centra l Daylight Time)
--- NOTE | 2018-08-10 17:03 | FAST ---
ENCOUNTER DATE AND TIME: 08/10/2018 08:00 (CDT) NAME PRICE ROGERS DATE OF : 1940 DATE OF ADMISSION: 07/05/2018 18:33 (CDT) PHONE: AGE: 78 SSN# [id number] GENDER: Male ENCOUNTER PHYSICIAN: Dr. Abdirahman Zepeda M.D. 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 EATING: Activity did not occur on this shift EATING - SCORE: 0-UNK GROOMING: Activity did not occur on this shift GROOMING - SCORE: 0-UNK BATHING: Activity did not occur on this shift BATHING - SCORE: 0-UNK DRESSING - UPPER BODY: Activity did not occur on this shift Patient is not dressing in public clothing ARTICLES SCORE Total number of steps: 0 DRESSING - UPPER BODY - SCORE: 0-UNK DRESSING - LOWER BODY: Activity did not occur on this shift Patient is not dressing in public clothing ARTICLES SCORE Total number of steps: 0 DRESSING - LOWER BODY - SCORE: 0-UNK TOILETING: Activity did not occur on this shift TOILETING - SCORE: 0-UNK BLADDER MANAGEMENT: Activity did not occur on this shift BLADDER MANAGEMENT - SCORE: 7-IND BOWEL MANAGEMENT: Activity did not occur on this shift BOWEL MANAGEMENT - SCORE: 7-IND TRANSFERS: BED, CHAIR, WHEELCHAIR: TRANSFERS: BED, CHAIR, WHEELCHAIR - STEP 1: Does the patient require assistance of a person or device, or need extra time with bed, chair, or whe elchair transfers? Yes. TRANSFERS: BED, CHAIR, WHEELCHAIR - STEP 2: Does the patient require the assistance of a helper? Yes. TRANSFERS: BED, CHAIR, WHEELCHAIR - STEP 3: How much assistance does the patient require from the helper? Steadying/guiding assistance TRANSFERS: BED, CHAIR, WHEELCHAIR - SCORE: 4-MIN TRANSFERS: TOILET: Activity did not occur on this shift TRANSFERS: TOILET - SCORE: 0-UNK TRANSFERS: SHOWER: Activity did not occur on this shift TRANSFERS: SHOWER - SCORE: 0-UNK TRANSFERS: TUB: Activity did not occur on this shift TRANSFERS: TUB - SCORE: 0-UNK LOCOMOTION: WALK: LOCOMOTION: WALK - STEP 1: Does the patient need help from a person or device, or need extra time to walk 150 feet? Yes. LOCOMOTION: WALK - STEP 2: How much assistance does the patient require to walk a minimum of 150 feet? Patient walks less than 1 50 feet - but more than 50 feet - with the assistance of only one helper LOCOMOTION: WALK - SCORE: 2-MAX LOCOMOTION: WHEELCHAIR: LOCOMOTION: WHEELCHAIR - STEP 1: Does the patient need help to go 150 feet in a wheelchair? Yes. LOCOMOTION: WHEELCHAIR - STEP 2: How much assistance does the patient need from the helper? Only supervision, cuing, or coaxing LOCOMOTION: WHEELCHAIR - SCORE: 5-SUP LOCOMOTION: STAIRS: Activity did not occur on this shift LOCOMOTION: STAIRS - SCORE: 0-UNK COMPREHENSION: COMPREHENSION - SCORE: 0-UNK EXPRESSION EXPRESSION - SCORE: 0-UNK SOCIAL INTERACTION: SOCIAL INTERACTION - SCORE: 0-UNK PROBLEM SOLVING: PROBLEM SOLVING - SCORE: 0-UNK MEMORY: MEMORY - SCORE: 0-UNK SIGNATURE PANEL: The following modified sections: Transfers: Bed, Chair, Wheelchair - Score, Transfers: Toilet - Score , Locomotion: Walk - Score, Locomotion: Wheelchair - Score, Locomotion: Stairs - Score were [electron daphney] signed by Skip Phillips PT on ThuAug 10 2018 17:03:19 GMT-0500 (Central Daylight Time)
--- NOTE | 2018-08-10 19:05 | R.PN ---
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 SUBJECTIVE: Pt denied any Shortness of Breath. Pt denied any depression. Patient states that pain is under control. Hgb 12.4, WBC 6.8, prealbumin 20.7. Functional transfers done with total assistance. He ambulated 66' with minimum assistance using a right hand hemiwalker. Self-propelled wheelchair 150 ' with standby assistance. left hip x-ray shows no fractures. Therapeutic exercises done with contact guard assistance and multiple rest breaks. VITAL SIGNS Temperature: 98.1 F SBP/DBP: 99/68 Pulse: 70 Resp: 16 MEDICATION ALLERGIES: No Known Drug Allergies (NKDA) ENVIRONMENTAL ALLERGIES: None Known - Substance Allergies None Known - Other Allergies None Known NURSING: - Shower allowing shower - Bladder care per protocol - Skin care per protocol PRECAUTIONS: - Weight Bearing Precaution WBAT left LE ACTIVITIES OOB only with supervision THERAPIES: - Occupational Therapy Evaluate and Treat. Visual Perceptual Training. Cognitive Retraining. - Speech Therapy Cognitive Training. Memory Strategies. Expressive Language Skills. Speech Intelligibility Training. R eceptive Language Skills. Dysphagia Therapy. - Physical Therapy Evaluate and Treat. PHYSICAL EXAM - Gen Alert and awake Lying in bed No apparent distress Oriented to: person, time, and place - Skin No beakdown No abnormalities - Eyes No abnormalities - ENMT No abnormalities - Neck No abnormalities - CVS RRR - Chest No abnormalities - Resp Clear to auscultation - Abd + bowel sounds - GI nondistended Deferred - No abnormalities - Ext Mild left lower extremity edema. - MSK 0/5 strength in the left upper extremity and 2+/5 weakness in left lower extremity. - Neuro 0/5 strength in the left upper extremity and 2+/5 weakness in left lower extremity. - Psych No abnormalities ASSESSMENT: Pt. is a 78 yo Right-handed white male.On 06/25/[address] Pt[address] to [facility] with sudden on set of left-side weakness.On 06/25/2018 he was admitted to [facility] with diagnosis Right MCA. His impairment category is Stroke 01 - Left Body (Right Brain) (01.1).Pre-morbidly, Pt. was independ ent/mod-I in Self-Care, Sphincter Control, Transfers Control, Locomotion, Communication, and Social C ognition; and he had good Sphincter Control.Currently, he has deficits of Self-Care, Transfers Contro l, Locomotion, Communication, Social Cognition, Endurance, Balance, and Safety Awareness.Pt. is now r eferred to [facility] for acute in-patient rehabilitation in order to maximize patient's functional independence in activities of daily living, strength, ROM, and mobility.- Rehab Goal Patient has realistic goal of being discharged at assistance level 6-Maria E to reside at Home with Fam linda/Relatives. MDM/PLAN: - Physical Therapy Gait dysfunction - to improve, our physical therapists will perform initial evaluation of pt's statu s upon admission and devise an individualized program for Gait Training, and Wheel Chair mobility Inability to transfer - to improve, our physical therapists will perform initial evaluation of pt's status upon admission and devise an individualized program for Bed mobility Need for home safety evaluation - to improve, our physical therapists will perform initial evaluatio n of pt's status upon admission and devise an individualized program for Home Evaluation Need in caregiver upon discharge - to improve, our physical therapists will perform initial evaluati on of pt's status upon admission and devise an individualized program for Caregiver Training Edema - to improve, our physical therapists will perform initial evaluation of pt's status upon admi ssion and devise an individualized program for Elevation Training, and Lymphedema Therapy New precaution - to improve, our physical therapists will perform initial evaluation of pt's status upon admission and devise an individualized program for Patient precaution education Poor balance - to improve, our physical therapists will perform initial evaluation of pt's status up on admission and devise an individualized program for Balance Training Poor endurance - to improve, our physical therapists will perform initial evaluation of pt's status upon admission and devise an individualized program for Endurance Training Weakness - to improve, our physical therapists will perform initial evaluation of pt's status upon a dmission and devise an individualized program for Aquatic Therapy, Neuromuscular Reeducation, and Str engthening Achieving independence - to improve, our physical therapists will perform initial evaluation of pt's status upon admission and devise an individualized program for Community Reintegration Activities - Occupational Therapy ADL deficits - to improve, our occupation therapists will perform initial evaluation of pt's status upon admission and devise an individualized program for Bathing, Bed mobility, Community Reintegratio n, Cooking, Dressing, Eating, Fine Motor Skills, Grooming, Homemaking, Kitchen Mobility, Laundry, Pat ient Education, Safety Awareness, Splinting - Positioning, Transfers(Toilet, Tub, Shower), and Wheel Chair Management Cognitive deficits - to improve, our occupation therapists will perform initial evaluation of pt's s tatus upon admission and devise an individualized program for Cognition - orientation Need for health care coach - to improve, our occupation therapists will perform initial evaluation of pt's status upon admission and devise an individualized program for Caregiver Training Weakness - to improve, our occupation therapists will perform initial evaluation of pt's status upon admission and devise an individualized program for Aquatic Therapy, Balance, Endurance, UE ROM, and UE strengthening - Diet Type Continue Regular - Diet - Liquid Texture Continue Thin - Tube Feed Continue N/A - Bladder care per protocol - Weight Bearing Precaution WBAT left LE - Skin care per protocol - Diet - Solid Texture Continue Regular Continue Mechanical Soft (Ground) - Shower allowing shower for Dementia, TBI, Stroke, or others FUNCTIONAL STATUS: UPDATED AT WEEKLY TEAM CONFERENCE - Bladder Same accident frequency: 7-Ind - No accidents in the past 7 days - Bowel Same accident frequency: 7-Ind - No accidents in the past 7 days - Walking Same score based on distance walked: 0(N/A) - Wheelchair Same score based on distance traveled: 0(N/A) FUNCTIONAL STATUS: - Self-Care A. Eating sup B. Grooming Anil C. Bathing maxA D. Dressing - Upper Anil E. Dressing - Lower maxA F. Toileting maxA - Sphincter Control G: Bladder control Ind H: Bowel control Ind - Transfers Control I. Bed/Chair/Wheelchair maxA J. Toilet maxA K. Tub/Shower ADNO - Locomotion L. Walk/Wheelchair (C) Dep L. Walk/Wheelchair (W) Dep M. Stairs ADNO - Communication N. Comprehension (B) Anil O. Expression (B) Anil - Social Cognition P. Social Interaction Anil Q. Problem Solving Anil R. Memory Anil - Endurance Fair - Balance Poor - Safety Awareness Fair CURRENT FUNC. DEFICITS: Self-Care, Transfers Control, Locomotion, Communication, Social Cognition, Endurance, Balance, and Sa fety Awareness SIGNATURE PANEL: (CDT)
[2018-08-10] MEDS: TAMSULOSIN 0.4 MG SR CAP PO SCH (20:55)
[2018-08-10] MEDS: ATORVASTATIN 10 MG TAB PO SCH (20:55)
[2018-08-10] MEDS: ALPRAZOLAM 1 MG TABLET PO PRN (20:56)
--- NOTE | 2018-08-11 01:31 | FAST ---
SHIFT START DATE/TIME: 08/10/2018 19:00 (CDT) SHIFT END DATE/TIME: 08/11/2018 07:00 (CDT) NAME PRICE ROGERS DATE OF : 1940 DATE OF ADMISSION: 07/05/2018 18:33 (CDT) PHONE: AGE: 78 N# [id number] GENDER: Male ENCOUNTER PHYSICIAN: Dr. Abdirahman Zepeda M.D. 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 EATING: Activity did not occur on this shift EATING - SCORE: 0-UNK GROOMING: Activity did not occur on this shift GROOMING - SCORE: 0-UNK BATHING: Activity did not occur on this shift BATHING - SCORE: 0-UNK DRESSING - UPPER BODY: Patient is not dressing in public clothing ARTICLES SCORE Total number of steps: 0 DRESSING - UPPER BODY - SCORE: 0-UNK DRESSING - LOWER BODY: Patient is not dressing in public clothing ARTICLES SCORE Total number of steps: 0 DRESSING - LOWER BODY - SCORE: 0-UNK TOILETING: TOILETING - STEP 1: Does the patient require the assistance of a person or device, or need extra time with toileting? Yes . TOILETING - STEP 2: Does the patient require the assistance of a helper? Yes. TOILETING - STEP 3: How much assistance does the patient require from the helper? Hands-on assistance from the helper TOILETING - STEP 4: Of the 3 tasks: 1) Adjusting clothing prior to use, 2) Cleansing of perineal area, 3) Adjusting clot merissa after use; How many tasks does the patient perform WITHOUT assistance of the helper? No tasks; h raquel performs all three tasks TOILETING - SCORE: 1-DEP BLADDER MANAGEMENT: [place] removes incontinent device (Depends, pull ups, etc.); cleans the patient after accident / inco ntinent episode; and, applies new incontinent device. BLADDER MANAGEMENT - SCORE: 1-DEP BOWEL MANAGEMENT: BOWEL MANAGEMENT - STEP 1: Does the patient control bowels completely and intentionally without equipment devices or medications AND is always continent? No. BOWEL MANAGEMENT - STEP 2: Does the patient require the assistance of a helper? No, patient requires medication for control such as stool softeners, suppositories, laxatives, enemas, or OTC medications BOWEL MANAGEMENT - SCORE: 6-SILVESTRE TRANSFERS: BED, CHAIR, WHEELCHAIR: Activity did not occur on this shift TRANSFERS: BED, CHAIR, WHEELCHAIR - SCORE: 0-UNK TRANSFERS: TOILET: Activity did not occur on this shift TRANSFERS: TOILET - SCORE: 0-UNK TRANSFERS: SHOWER: Activity did not occur on this shift TRANSFERS: SHOWER - SCORE: 0-UNK TRANSFERS: TUB: Activity did not occur on this shift TRANSFERS: TUB - SCORE: 0-UNK LOCOMOTION: WALK: Activity did not occur on this shift LOCOMOTION: WALK - SCORE: 0-UNK LOCOMOTION: WHEELCHAIR: Activity did not occur on this shift LOCOMOTION: WHEELCHAIR - SCORE: 0-UNK COMPREHENSION: COMPREHENSION: TYPE: Both COMPREHENSION - STEP 1: Does the patient require help from a person or device, or need extra time to understand complex and a bstract ideas (such as current events, finances, discharge planning, medical issues, relationships, e tc)? No. COMPREHENSION - STEP 2: Does the patient need extra time, require an assistive device (such as glasses for visual comprehensi on or a hearing aid for auditory comprehension) or does s/he have mild difficulty understanding compl ex and abstract information? Yes. COMPREHENSION - SCORE: 6-SILVESTRE EXPRESSION EXPRESSION: TYPE: Both EXPRESSION - STEP 1: Does the patient require help from a person or device, or need extra time expressing complex and abst ract ideas (such as current events, finances, discharge planning, medical issues, relationships, etc) ? No. EXPRESSION - STEP 2: Does the patient need extra time, require an assistive device (such as augmentive communication syste m or a communication board), OR does s/he have mild difficulty expressing complex and abstract ideas (including mild dysarthria or mild word-find problems)? Yes. EXPRESSION - SCORE: 6-SILVESTRE SOCIAL INTERACTION: SOCIAL INTERACTION - STEP 1: Does the patient require a helper to interact with others in social and therapeutic situations? No. SOCIAL INTERACTION - STEP 2: Does the patient need extra time in social situations, OR does s/he interact with staff, other patien ts, and family members ONLY in structured environments, OR does s/he require medication for social in teraction? Yes, patient requires medication for social interaction SOCIAL INTERACTION - SCORE: 6-SILVESTRE PROBLEM SOLVING: PROBLEM SOLVING - STEP 1: Does the patient need help from a person or device, or need extra time to solve complex problems such as managing a checking account or confronting interpersonal problems? Yes. PROBLEM SOLVING - STEP 2: Does the patient solve basic routine problems half or more of the time? Yes. PROBLEM SOLVING - STEP 3: How often does the patient need help to solve basic routine problems? 10%-24% of the time PROBLEM SOLVING - SCORE: 4-MIN MEMORY: MEMORY - STEP 1: Does the patient need help from a person or device, or need extra time to remember frequently encount ered people, daily routines, and executing requests? No. MEMORY - STEP 2: Does the patient have slight difficulty recognizing frequently encountered people, daily routines, or executing requests without the need for repetition or using self-initiated or environmental cues to remember? Yes. MEMORY - SCORE: 6-SILVESTRE SIGNATURE PANEL: The following modified sections: Eating - Score, Grooming - Score, Dressing - Upper Body - Score, Jitendra ssing - Lower Body - Score, Toileting - Score, Bladder Management - Score, Bowel Management - Score, Transfers: Bed, Chair, Wheelchair - Score, Transfers: Toilet - Score, Transfers: Shower - Score, Good sfers: Tub - Score, Locomotion: Walk - Score, Locomotion: Wheelchair - Score, Comprehension - Score, Expression - Score, Social Interaction - Score, Problem Solving - Score, Memory - Score were [electro nically] signed by Valerie Almanzar CNA on ThuAug 11 2018 01:30:11 GMT-0500 (Central Daylight Time)
[2018-08-11] MEDS: LISINOPRIL 5 MG TAB PO SCH (08:00)
[2018-08-11] MEDS: GABAPENTIN 300 MG CAP PO SCH ×3 (08:14→20:05)
[2018-08-11] MEDS: FLECAINIDE 100 MG TAB PO SCH ×2 (08:15→20:06)
[2018-08-11] MEDS: VITAMIN D 5,000 UNIT CAP PO SCH (08:15)
[2018-08-11] MEDS: MAGNESIUM OXIDE 400 MG TAB PO SCH ×2 (08:16→20:06)
[2018-08-11] MEDS: CYANOCOBALAMIN 1,000 MCG TAB PO SCH (08:17)
[2018-08-11] MEDS: APIXABAN 2.5 MG TABLET PO SCH ×2 (08:17→20:06)
[2018-08-11] MEDS: FUROSEMIDE 20 MG TABLET PO SCH (08:17)
[2018-08-11] MEDS: CITALOPRAM 10 MG TABLET PO SCH (08:18)
[2018-08-11] MEDS: LIDOCAINE 5% PATCH TOP SCH (09:23)
--- NOTE | 2018-08-11 11:38 | FAST ---
ENCOUNTER DATE AND TIME: 08/11/2018 08:00 (CDT) NAME PRICE ROGERS DATE OF : 1940 DATE OF ADMISSION: 07/05/2018 18:33 (CDT) PHONE: AGE: 78 SSN# [id number] GENDER: Male ENCOUNTER PHYSICIAN: Dr. Abdirahman Zepeda M.D. 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 EATING: Activity did not occur on this shift EATING - SCORE: 0-UNK GROOMING: Comb/brush hair Oral care Wash, rinse, and dry face Wash, rinse, and dry hands GROOMING - STEP 1: Does the patient require the assistance of a person or device, or need extra time when grooming? No. GROOMING - SCORE: 7-IND BATHING: Abdomen Buttocks Chest Left arm Left lower leg and foot Left upper leg Perineal area Right arm Right lower leg and foot Right upper leg BATHING - STEP 1: Does the patient require the assistance of a person or device, or need extra time when bathing? Yes. BATHING - STEP 2: Does the patient require the assistance of a helper? Yes. BATHING - STEP 3: How much assistance does the patient require from the helper? Only incidental help such as placement of a wash cloth in his/her hand a few times as s/he bathes OR help to bathe just one or two areas of the body BATHING - SCORE: 4-MIN DRESSING - UPPER BODY: T-shirt/pullover shirt (four steps) ARTICLES SCORE Total number of steps: 4 DRESSING - UPPER BODY - STEP 1: Does the patient require help from a person or device, or need extra time when dressing above the [address]? Yes. DRESSING - UPPER BODY - STEP 2: Does the patient require the assistance of a helper? Yes. DRESSING - UPPER BODY - STEP 3: Does the helper touch the patient while dressing? Yes. DRESSING - UPPER BODY - STEP 4: How many of the total steps does the patient complete on his/her own? 3 DRESSING - UPPER BODY - SCORE: 4-MIN DRESSING - LOWER BODY: Elastic waist pants (three steps) Slip-on shoe - Left foot (one step) Slip-on shoe - Right foot (one step) Underwear (three steps) ARTICLES SCORE Total number of steps: 8 DRESSING - LOWER BODY - STEP 1: Does the patient require help from a person or device, or need extra time when dressing below the [address]? Yes. DRESSING - LOWER BODY - STEP 2: Does the patient require the assistance of a helper? Yes. DRESSING - LOWER BODY - STEP 3: Does the helper touch the patient while dressing? Yes. DRESSING - LOWER BODY - STEP 4: How many of the total steps does the patient complete on his/her own? 5 DRESSING - LOWER BODY - SCORE: 3-MOD TOILETING: Activity did not occur on this shift TOILETING - SCORE: 0-UNK BLADDER MANAGEMENT: Activity did not occur on this shift BLADDER MANAGEMENT - SCORE: 7-IND BOWEL MANAGEMENT: Activity did not occur on this shift BOWEL MANAGEMENT - SCORE: 7-IND TRANSFERS: BED, CHAIR, WHEELCHAIR: Activity did not occur on this shift TRANSFERS: BED, CHAIR, WHEELCHAIR - SCORE: 0-UNK TRANSFERS: TOILET: Activity did not occur on this shift TRANSFERS: TOILET - SCORE: 0-UNK TRANSFERS: SHOWER: TRANSFERS: SHOWER - STEP 1: Does the patient require the assistance of a person or device, or need extra time with shower transfe rs? Yes. TRANSFERS: SHOWER - STEP 2: Does the patient require the assistance of a helper? Yes. TRANSFERS: SHOWER - STEP 3: How much assistance does the patient require from the helper? More than incidental help TRANSFERS: SHOWER - STEP 4: How much more help does the patient require from the helper? Lifting the patient either up OR down fr om the wheelchair onto the shower chair TRANSFERS: SHOWER - SCORE: 3-MOD TRANSFERS: TUB: Activity did not occur on this shift TRANSFERS: TUB - SCORE: 0-UNK LOCOMOTION: WALK: Activity did not occur on this shift LOCOMOTION: WALK - SCORE: 0-UNK LOCOMOTION: WHEELCHAIR: Activity did not occur on this shift LOCOMOTION: WHEELCHAIR - SCORE: 0-UNK LOCOMOTION: STAIRS: Activity did not occur on this shift LOCOMOTION: STAIRS - SCORE: 0-UNK COMPREHENSION: COMPREHENSION: TYPE: Both COMPREHENSION - STEP 1: Does the patient require help from a person or device, or need extra time to understand complex and a bstract ideas (such as current events, finances, discharge planning, medical issues, relationships, e tc)? No. COMPREHENSION - STEP 2: Does the patient need extra time, require an assistive device (such as glasses for visual comprehensi on or a hearing aid for auditory comprehension) or does s/he have mild difficulty understanding compl ex and abstract information? Yes. COMPREHENSION - SCORE: 6-SILVESTRE EXPRESSION EXPRESSION: TYPE: Both EXPRESSION - STEP 1: Does the patient require help from a person or device, or need extra time expressing complex and abst ract ideas (such as current events, finances, discharge planning, medical issues, relationships, etc) ? No. EXPRESSION - STEP 2: Does the patient need extra time, require an assistive device (such as augmentive communication syste m or a communication board), OR does s/he have mild difficulty expressing complex and abstract ideas (including mild dysarthria or mild word-find problems)? Yes. EXPRESSION - SCORE: 6-SILVESTRE SOCIAL INTERACTION: SOCIAL INTERACTION - STEP 1: Does the patient require a helper to interact with others in social and therapeutic situations? No. SOCIAL INTERACTION - STEP 2: Does the patient need extra time in social situations, OR does s/he interact with staff, other patien ts, and family members ONLY in structured environments, OR does s/he require medication for social in teraction? Yes, patient requires medication for social interaction SOCIAL INTERACTION - SCORE: 6-SILVESTRE PROBLEM SOLVING: PROBLEM SOLVING - STEP 1: Does the patient need help from a person or device, or need extra time to solve complex problems such as managing a checking account or confronting interpersonal problems? No. PROBLEM SOLVING - STEP 2: Does the patient require extra time to make decisions or solve problems, OR does s/he have slight dif ficulty reading, initiating, or self-correcting in unfamiliar situations? Yes, patient needs extra ti me. PROBLEM SOLVING - SCORE: 6-SILVESTRE MEMORY: MEMORY - STEP 1: Does the patient need help from a person or device, or need extra time to remember frequently encount ered people, daily routines, and executing requests? No. MEMORY - STEP 2: Does the patient have slight difficulty recognizing frequently encountered people, daily routines, or executing requests without the need for repetition or using self-initiated or environmental cues to remember? Yes. MEMORY - SCORE: 6-SILVESTRE SIGNATURE PANEL: The following modified sections: Eating - Score, Grooming - Score, Bathing - Score, Dressing - Upper Body - Score, Dressing - Lower Body - Score, Toileting - Score, Transfers: Bed, Chair, Wheelchair - S core, Transfers: Toilet - Score, Transfers: Tub - Score, Transfers: Shower - Score, Comprehension - S core, Expression - Score, Social Interaction - Score, Problem Solving - Score, Memory - Score were [e lectronically] signed by Shanti Moreno OT on ThuAug 11 2018 11:37:14 T-0500 (Central Daylight T aneudy)
[2018-08-11] MEDS: VALSARTAN 80 MG TAB PO SCH (12:00)
--- NOTE | 2018-08-11 14:16 | FAST ---
SHIFT START DATE/TIME: 08/11/2018 07:00 (CDT) SHIFT END DATE/TIME: 08/11/2018 19:00 (CDT) NAME PRICE ROGERS DATE OF : 1940 DATE OF ADMISSION: 07/05/2018 18:33 (CDT) PHONE: AGE: 78 N# [id number] GENDER: Male ENCOUNTER PHYSICIAN: Dr. Abdirahman Zepeda M.D. 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 EATING: EATING - STEP 1: Does the patient require the assistance of a person or device, or need extra time when eating? Yes. EATING - STEP 2: Does the patient require the assistance of a helper? Yes. EATING - STEP 3: Does the patient perform half or more of the eating tasks? Yes. EATING - STEP 4: Does the patient need only supervision, cuing, coaxing OR help to apply an orthosis OR help to cut fo od, open containers, pour liquids, or butter bread? Yes. EATING - SCORE: 5-SUP GROOMING: Comb/brush hair Oral care GROOMING - STEP 1: Does the patient require the assistance of a person or device, or need extra time when grooming? Yes. GROOMING - STEP 2: Does the patient require the assistance of a helper? Yes. GROOMING - STEP 3: How much assistance does the patient require from the helper? Incidental touching assistance from the helper while grooming GROOMING - SCORE: 4-MIN BATHING: Activity did not occur on this shift BATHING - SCORE: 0-UNK DRESSING - UPPER BODY: Activity did not occur on this shift ARTICLES SCORE Total number of steps: 0 DRESSING - UPPER BODY - SCORE: 0-UNK DRESSING - LOWER BODY: Activity did not occur on this shift ARTICLES SCORE Total number of steps: 0 DRESSING - LOWER BODY - SCORE: 0-UNK TOILETING: TOILETING - STEP 1: Does the patient require the assistance of a person or device, or need extra time with toileting? Yes . TOILETING - STEP 2: Does the patient require the assistance of a helper? Yes. TOILETING - STEP 3: How much assistance does the patient require from the helper? Hands-on assistance from the helper TOILETING - STEP 4: Of the 3 tasks: 1) Adjusting clothing prior to use, 2) Cleansing of perineal area, 3) Adjusting clot merissa after use; How many tasks does the patient perform WITHOUT assistance of the helper? Two tasks TOILETING - SCORE: 3-MOD BLADDER MANAGEMENT: BLADDER MANAGEMENT - STEP 1: Does the patient control the bladder completely and intentionally without equipment or devices or med ications, and is always continent? No. BLADDER MANAGEMENT - STEP 2: Does the patient require the assistance of a helper? No, patient requires and independently uses an a ssistive device, such as a urinal, bedpan, bedside commode, catheter, absorbent pad, or collecting de vice BLADDER MANAGEMENT - SCORE: 6-SILVESTRE BLADDER MANAGEMENT - FREQUENCY OF ACCIDENTS: BLADDER MANAGEMENT(FA) - STEP 1: How many accidents has the patient had during the current shift? 1 BOWEL MANAGEMENT: BOWEL MANAGEMENT - STEP 1: Does the patient control bowels completely and intentionally without equipment devices or medications AND is always continent? No. BOWEL MANAGEMENT - STEP 2: Does the patient require the assistance of a helper? No, patient requires and manages independently a n assistive device such as a bedpan, bedside commode, absorbent pad, incontinent device, or collectin g device BOWEL MANAGEMENT - SCORE: 6-SILVESTRE TRANSFERS: BED, CHAIR, WHEELCHAIR: Patient requires more than one helper and/or the use of a mechanical lift is utilized TRANSFERS: BED, CHAIR, WHEELCHAIR - SCORE: 1-DEP TRANSFERS: TOILET: Patient requires more than one helper and/or the use of a mechanical lift is utilized TRANSFERS: TOILET - SCORE: 1-DEP TRANSFERS: SHOWER: Activity did not occur on this shift TRANSFERS: SHOWER - SCORE: 0-UNK TRANSFERS: TUB: Activity did not occur on this shift TRANSFERS: TUB - SCORE: 0-UNK LOCOMOTION: WALK: Activity did not occur on this shift LOCOMOTION: WALK - SCORE: 0-UNK LOCOMOTION: WHEELCHAIR: Activity did not occur on this shift LOCOMOTION: WHEELCHAIR - SCORE: 0-UNK COMPREHENSION: COMPREHENSION: TYPE: Both COMPREHENSION - STEP 1: Does the patient require help from a person or device, or need extra time to understand complex and a bstract ideas (such as current events, finances, discharge planning, medical issues, relationships, e tc)? No. COMPREHENSION - STEP 2: Does the patient need extra time, require an assistive device (such as glasses for visual comprehensi on or a hearing aid for auditory comprehension) or does s/he have mild difficulty understanding compl ex and abstract information? No. COMPREHENSION - SCORE: 7-IND EXPRESSION EXPRESSION: TYPE: Both EXPRESSION - STEP 1: Does the patient require help from a person or device, or need extra time expressing complex and abst ract ideas (such as current events, finances, discharge planning, medical issues, relationships, etc) ? Yes. EXPRESSION - STEP 2: Does the patient require help to express basic necessities or ideas (such as hunger, thirst, sleep, s afety, daily schedule, room location, or discomfort) half or more of the time? No. EXPRESSION - STEP 3: How often does the patient need help to express directions and conversation about basic needs? Less t smiley 10% of the time EXPRESSION - SCORE: 5-SUP SOCIAL INTERACTION: SOCIAL INTERACTION - STEP 1: Does the patient require a helper to interact with others in social and therapeutic situations? No. SOCIAL INTERACTION - STEP 2: Does the patient need extra time in social situations, OR does s/he interact with staff, other patien ts, and family members ONLY in structured environments, OR does s/he require medication for social in teraction? Yes, patient needs extra time SOCIAL INTERACTION - SCORE: 6-SILVESTRE PROBLEM SOLVING: PROBLEM SOLVING - STEP 1: Does the patient need help from a person or device, or need extra time to solve complex problems such as managing a checking account or confronting interpersonal problems? No. PROBLEM SOLVING - STEP 2: Does the patient require extra time to make decisions or solve problems, OR does s/he have slight dif ficulty reading, initiating, or self-correcting in unfamiliar situations? Yes, patient needs extra ti me. PROBLEM SOLVING - SCORE: 6-SILVESTRE MEMORY: MEMORY - STEP 1: Does the patient need help from a person or device, or need extra time to remember frequently encount ered people, daily routines, and executing requests? No. MEMORY - STEP 2: Does the patient have slight difficulty recognizing frequently encountered people, daily routines, or executing requests without the need for repetition or using self-initiated or environmental cues to remember? Yes. MEMORY - SCORE: 6-SILVESTRE SIGNATURE PANEL: The following modified sections: Eating - Score, Grooming - Score, Bathing - Score, Dressing - Upper Body - Score, Dressing - Lower Body - Score, Toileting - Score, Bladder Management - Score, Bowel Man agement - Score, Transfers: Bed, Chair, Wheelchair - Score, Transfers: Toilet - Score, Transfers: Melissa wer - Score, Transfers: Tub - Score, Locomotion: Walk - Score, Locomotion: Wheelchair - Score, Compre hension - Score, Expression - Score, Social Interaction - Score, Problem Solving - Score, Memory - Sc ore were [electronically] signed by Wilmar Arboleda on ThuAug 11 2018 14:15:44 GMT-0500 (Central Daylight Time)
--- NOTE | 2018-08-11 14:23 | FAST ---
ENCOUNTER DATE AND TIME: 08/11/2018 08:00 (CDT) NAME PRICE ROGERS DATE OF : 1940 DATE OF ADMISSION: 07/05/2018 18:33 (CDT) PHONE: AGE: 78 SSN# [id number] GENDER: Male ENCOUNTER PHYSICIAN: Dr. Abdirahman Zepeda M.D. 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 EATING: Activity did not occur on this shift EATING - SCORE: 0-UNK GROOMING: Activity did not occur on this shift GROOMING - SCORE: 0-UNK BATHING: Activity did not occur on this shift BATHING - SCORE: 0-UNK DRESSING - UPPER BODY: Activity did not occur on this shift Patient is not dressing in public clothing ARTICLES SCORE Total number of steps: 0 DRESSING - UPPER BODY - SCORE: 0-UNK DRESSING - LOWER BODY: Activity did not occur on this shift Patient is not dressing in public clothing ARTICLES SCORE Total number of steps: 0 DRESSING - LOWER BODY - SCORE: 0-UNK TOILETING: Activity did not occur on this shift TOILETING - SCORE: 0-UNK BLADDER MANAGEMENT: Activity did not occur on this shift BLADDER MANAGEMENT - SCORE: 7-IND BOWEL MANAGEMENT: Activity did not occur on this shift BOWEL MANAGEMENT - SCORE: 7-IND TRANSFERS: BED, CHAIR, WHEELCHAIR: TRANSFERS: BED, CHAIR, WHEELCHAIR - STEP 1: Does the patient require assistance of a person or device, or need extra time with bed, chair, or whe elchair transfers? Yes. TRANSFERS: BED, CHAIR, WHEELCHAIR - STEP 2: Does the patient require the assistance of a helper? Yes. TRANSFERS: BED, CHAIR, WHEELCHAIR - STEP 3: How much assistance does the patient require from the helper? Steadying/guiding assistance TRANSFERS: BED, CHAIR, WHEELCHAIR - SCORE: 4-MIN TRANSFERS: TOILET: Activity did not occur on this shift TRANSFERS: TOILET - SCORE: 0-UNK TRANSFERS: SHOWER: Activity did not occur on this shift TRANSFERS: SHOWER - SCORE: 0-UNK TRANSFERS: TUB: Activity did not occur on this shift TRANSFERS: TUB - SCORE: 0-UNK LOCOMOTION: WALK: Patient walks less than 50 feet LOCOMOTION: WALK - SCORE: 1-DEP LOCOMOTION: WHEELCHAIR: LOCOMOTION: WHEELCHAIR - STEP 1: Does the patient need help to go 150 feet in a wheelchair? Yes. LOCOMOTION: WHEELCHAIR - STEP 2: How much assistance does the patient need from the helper? Only supervision, cuing, or coaxing LOCOMOTION: WHEELCHAIR - SCORE: 5-SUP LOCOMOTION: STAIRS: Activity did not occur on this shift LOCOMOTION: STAIRS - SCORE: 0-UNK COMPREHENSION: COMPREHENSION - SCORE: 0-UNK EXPRESSION EXPRESSION - SCORE: 0-UNK SOCIAL INTERACTION: SOCIAL INTERACTION - SCORE: 0-UNK PROBLEM SOLVING: PROBLEM SOLVING - SCORE: 0-UNK MEMORY: MEMORY - SCORE: 0-UNK SIGNATURE PANEL: The following modified sections: Transfers: Bed, Chair, Wheelchair - Score, Transfers: Toilet - Score , Locomotion: Walk - Score, Locomotion: Wheelchair - Score, Locomotion: Stairs - Score were [electron daphney] signed by Skip Phillips PT on ThuAug 11 2018 14:22:29 T-0500 (Central Daylight Time)
--- NOTE | 2018-08-11 19:28 | R.PN ---
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 SUBJECTIVE: Pt denied any Shortness of Breath. Pt denied any depression. Patient states that pain is under control. Hgb 12.4, WBC 6.8, prealbumin 20.7. Functional transfers done with total assistance. He ambulated 81' with minimum assistance using a right hand hemiwalker. Self-propelled wheelchair 150 ' with standby assistance. left hip x-ray shows no fractures. Therapeutic exercises done with contact guard assistance and multiple rest breaks. VITAL SIGNS Temperature: 98.1 F SBP/DBP: 107/64 Pulse: 65 Resp: 16 MEDICATION ALLERGIES: No Known Drug Allergies (NKDA) ENVIRONMENTAL ALLERGIES: None Known - Substance Allergies None Known - Other Allergies None Known NURSING: - Shower allowing shower - Bladder care per protocol - Skin care per protocol PRECAUTIONS: - Weight Bearing Precaution WBAT left LE ACTIVITIES OOB only with supervision THERAPIES: - Occupational Therapy Evaluate and Treat. Visual Perceptual Training. Cognitive Retraining. - Speech Therapy Cognitive Training. Memory Strategies. Expressive Language Skills. Speech Intelligibility Training. R eceptive Language Skills. Dysphagia Therapy. - Physical Therapy Evaluate and Treat. PHYSICAL EXAM - Gen Alert and awake Lying in bed No apparent distress Oriented to: person, time, and place - Skin No beakdown No abnormalities - Eyes No abnormalities - ENMT No abnormalities - Neck No abnormalities - CVS RRR - Chest No abnormalities - Resp Clear to auscultation - Abd + bowel sounds - GI nondistended Deferred - No abnormalities - Ext Mild left lower extremity edema. - MSK 0/5 strength in the left upper extremity and 2+/5 weakness in left lower extremity. - Neuro 0/5 strength in the left upper extremity and 2+/5 weakness in left lower extremity. - Psych No abnormalities ASSESSMENT: Pt. is a 78 yo Right-handed white male.On 06/25/2018 Pt. presented to [facility] with sudden on set of left-side weakness.On 06/25/2018 he was admitted to [facility] with diagnosis Right MCA. His impairment category is Stroke 01 - Left Body (Right Brain) (01.1).Pre-morbidly, Pt. was independ ent/mod-I in Self-Care, Sphincter Control, Transfers Control, Locomotion, Communication, and Social C ognition; and he had good Sphincter Control.Currently, he has deficits of Self-Care, Transfers Contro l, Locomotion, Communication, Social Cognition, Endurance, Balance, and Safety Awareness.Pt. is now r eferred to [facility] for acute in-patient rehabilitation in order to maximize patient's functional independence in activities of daily living, strength, ROM, and mobility.- Rehab Goal Patient has realistic goal of being discharged at assistance level 6-Maria E to reside at Home with Fam linda/Relatives. MDM/PLAN: - Physical Therapy Gait dysfunction - to improve, our physical therapists will perform initial evaluation of pt's statu s upon admission and devise an individualized program for Gait Training, and Wheel Chair mobility Inability to transfer - to improve, our physical therapists will perform initial evaluation of pt's status upon admission and devise an individualized program for Bed mobility Need for home safety evaluation - to improve, our physical therapists will perform initial evaluatio n of pt's status upon admission and devise an individualized program for Home Evaluation Need in caregiver upon discharge - to improve, our physical therapists will perform initial evaluati on of pt's status upon admission and devise an individualized program for Caregiver Training Edema - to improve, our physical therapists will perform initial evaluation of pt's status upon admi ssion and devise an individualized program for Elevation Training, and Lymphedema Therapy New precaution - to improve, our physical therapists will perform initial evaluation of pt's status upon admission and devise an individualized program for Patient precaution education Poor balance - to improve, our physical therapists will perform initial evaluation of pt's status up on admission and devise an individualized program for Balance Training Poor endurance - to improve, our physical therapists will perform initial evaluation of pt's status upon admission and devise an individualized program for Endurance Training Weakness - to improve, our physical therapists will perform initial evaluation of pt's status upon a dmission and devise an individualized program for Aquatic Therapy, Neuromuscular Reeducation, and Str engthening Achieving independence - to improve, our physical therapists will perform initial evaluation of pt's status upon admission and devise an individualized program for Community Reintegration Activities - Occupational Therapy ADL deficits - to improve, our occupation therapists will perform initial evaluation of pt's status upon admission and devise an individualized program for Bathing, Bed mobility, Community Reintegratio n, Cooking, Dressing, Eating, Fine Motor Skills, Grooming, Homemaking, Kitchen Mobility, Laundry, Pat ient Education, Safety Awareness, Splinting - Positioning, Transfers(Toilet, Tub, Shower), and Wheel Chair Management Cognitive deficits - to improve, our occupation therapists will perform initial evaluation of pt's s tatus upon admission and devise an individualized program for Cognition - orientation Need for rn intensive care unit - to improve, our occupation therapists will perform initial evaluation of pt's status upon admission and devise an individualized program for Caregiver Training Weakness - to improve, our occupation therapists will perform initial evaluation of pt's status upon admission and devise an individualized program for Aquatic Therapy, Balance, Endurance, UE ROM, and UE strengthening - Diet Type Continue Regular - Diet - Liquid Texture Continue Thin - Tube Feed Continue N/A - Bladder care per protocol - Weight Bearing Precaution WBAT left LE - Skin care per protocol - Diet - Solid Texture Continue Regular Continue Mechanical Soft (Ground) - Shower allowing shower for Dementia, TBI, Stroke, or others FUNCTIONAL STATUS: UPDATED AT WEEKLY TEAM CONFERENCE - Bladder Same accident frequency: 7-Ind - No accidents in the past 7 days - Bowel Same accident frequency: 7-Ind - No accidents in the past 7 days - Walking Same score based on distance walked: 0(N/A) - Wheelchair Same score based on distance traveled: 0(N/A) FUNCTIONAL STATUS: - Self-Care A. Eating sup B. Grooming Anil C. Bathing maxA D. Dressing - Upper Anil E. Dressing - Lower maxA F. Toileting maxA - Sphincter Control G: Bladder control Ind H: Bowel control Ind - Transfers Control I. Bed/Chair/Wheelchair maxA J. Toilet maxA K. Tub/Shower ADNO - Locomotion L. Walk/Wheelchair (C) Dep L. Walk/Wheelchair (W) Dep M. Stairs ADNO - Communication N. Comprehension (B) Anil O. Expression (B) Anil - Social Cognition P. Social Interaction Anil Q. Problem Solving Anil R. Memory Anil - Endurance Fair - Balance Poor - Safety Awareness Fair CURRENT FUNC. DEFICITS: Self-Care, Transfers Control, Locomotion, Communication, Social Cognition, Endurance, Balance, and Sa fety Awareness SIGNATURE PANEL: (CDT)
[2018-08-11] MEDS: ATORVASTATIN 10 MG TAB PO SCH (20:05)
[2018-08-11] MEDS: TAMSULOSIN 0.4 MG SR CAP PO SCH (20:06)
[2018-08-11] MEDS: ALPRAZOLAM 1 MG TABLET PO PRN (22:32)
--- NOTE | 2018-08-12 01:41 | FAST ---
SHIFT START DATE/TIME: 08/11/2018 19:00 (CDT) SHIFT END DATE/TIME: 08/12/2018 07:00 (CDT) NAME PRICE ROGERS DATE OF : 1940 DATE OF ADMISSION: 07/05/2018 18:33 (CDT) PHONE: AGE: 78 N# [id number] GENDER: Male ENCOUNTER PHYSICIAN: Dr. Abdirahman Zepeda M.D. 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 EATING: Activity did not occur on this shift EATING - SCORE: 0-UNK GROOMING: Activity did not occur on this shift GROOMING - SCORE: 0-UNK BATHING: Activity did not occur on this shift BATHING - SCORE: 0-UNK DRESSING - UPPER BODY: Patient is not dressing in public clothing ARTICLES SCORE Total number of steps: 0 DRESSING - UPPER BODY - SCORE: 0-UNK DRESSING - LOWER BODY: Patient is not dressing in public clothing ARTICLES SCORE Total number of steps: 0 DRESSING - LOWER BODY - SCORE: 0-UNK TOILETING: TOILETING - STEP 1: Does the patient require the assistance of a person or device, or need extra time with toileting? Yes . TOILETING - STEP 2: Does the patient require the assistance of a helper? Yes. TOILETING - STEP 3: How much assistance does the patient require from the helper? Hands-on assistance from the helper TOILETING - STEP 4: Of the 3 tasks: 1) Adjusting clothing prior to use, 2) Cleansing of perineal area, 3) Adjusting clot merissa after use; How many tasks does the patient perform WITHOUT assistance of the helper? No tasks; h elper performs all three tasks TOILETING - SCORE: 1-DEP BLADDER MANAGEMENT: [place] removes incontinent device (Depends, pull ups, etc.); cleans the patient after accident / inco ntinent episode; and, applies new incontinent device. BLADDER MANAGEMENT - SCORE: 1-DEP BLADDER MANAGEMENT - FREQUENCY OF ACCIDENTS: BLADDER MANAGEMENT(FA) - STEP 1: How many accidents has the patient had during the current shift? 1 BOWEL MANAGEMENT: Activity did not occur on this shift BOWEL MANAGEMENT - SCORE: 7-IND TRANSFERS: BED, CHAIR, WHEELCHAIR: Activity did not occur on this shift TRANSFERS: BED, CHAIR, WHEELCHAIR - SCORE: 0-UNK TRANSFERS: TOILET: Activity did not occur on this shift TRANSFERS: TOILET - SCORE: 0-UNK TRANSFERS: SHOWER: Activity did not occur on this shift TRANSFERS: SHOWER - SCORE: 0-UNK TRANSFERS: TUB: Activity did not occur on this shift TRANSFERS: TUB - SCORE: 0-UNK LOCOMOTION: WALK: Activity did not occur on this shift LOCOMOTION: WALK - SCORE: 0-UNK LOCOMOTION: WHEELCHAIR: Activity did not occur on this shift LOCOMOTION: WHEELCHAIR - SCORE: 0-UNK COMPREHENSION: COMPREHENSION: TYPE: Both COMPREHENSION - STEP 1: Does the patient require help from a person or device, or need extra time to understand complex and a bstract ideas (such as current events, finances, discharge planning, medical issues, relationships, e tc)? No. COMPREHENSION - STEP 2: Does the patient need extra time, require an assistive device (such as glasses for visual comprehensi on or a hearing aid for auditory comprehension) or does s/he have mild difficulty understanding compl ex and abstract information? Yes. COMPREHENSION - SCORE: 6-SILVESTRE EXPRESSION EXPRESSION: TYPE: Both EXPRESSION - STEP 1: Does the patient require help from a person or device, or need extra time expressing complex and abst ract ideas (such as current events, finances, discharge planning, medical issues, relationships, etc) ? No. EXPRESSION - STEP 2: Does the patient need extra time, require an assistive device (such as augmentive communication syste m or a communication board), OR does s/he have mild difficulty expressing complex and abstract ideas (including mild dysarthria or mild word-find problems)? No. EXPRESSION - SCORE: 7-IND SOCIAL INTERACTION: SOCIAL INTERACTION - STEP 1: Does the patient require a helper to interact with others in social and therapeutic situations? No. SOCIAL INTERACTION - STEP 2: Does the patient need extra time in social situations, OR does s/he interact with staff, other patien ts, and family members ONLY in structured environments, OR does s/he require medication for social in teraction? Yes, patient requires medication for social interaction SOCIAL INTERACTION - SCORE: 6-SILVESTRE PROBLEM SOLVING: PROBLEM SOLVING - STEP 1: Does the patient need help from a person or device, or need extra time to solve complex problems such as managing a checking account or confronting interpersonal problems? No. PROBLEM SOLVING - STEP 2: Does the patient require extra time to make decisions or solve problems, OR does s/he have slight dif ficulty reading, initiating, or self-correcting in unfamiliar situations? No. PROBLEM SOLVING - SCORE: 7-IND MEMORY: MEMORY - STEP 1: Does the patient need help from a person or device, or need extra time to remember frequently encount ered people, daily routines, and executing requests? No. MEMORY - STEP 2: Does the patient have slight difficulty recognizing frequently encountered people, daily routines, or executing requests without the need for repetition or using self-initiated or environmental cues to remember? No. MEMORY - SCORE: 7-IND SIGNATURE PANEL: The following modified sections: Eating - Score, Grooming - Score, Bathing - Score, Dressing - Upper Body - Score, Dressing - Lower Body - Score, Toileting - Score, Bladder Management - Score, Bowel Man agement - Score, Transfers: Bed, Chair, Wheelchair - Score, Transfers: Toilet - Score, Transfers: Melissa wer - Score, Transfers: Tub - Score, Locomotion: Walk - Score, Locomotion: Wheelchair - Score, Compre hension - Score, Expression - Score, Social Interaction - Score, Problem Solving - Score, Memory - Sc ore were [electronically] signed by Kaylen Nguyen RN on ThuAug 12 2018 01:40:18 GMT-0500 ([facility] Time)
[2018-08-12 06:34] LABS: Absolute Lymphocytes (CBC) 1.5 K/uL (0.7-4.9); Basophils % 0.6 % (0-1.3); Hematocrit 35.9 % (39.6-49.0); Lymphocytes % 22.7 % (15.3-44.8); RBC Red Blood Cell Count 3.84 M/uL (4.33-5.43)
[2018-08-12 06:41] LABS: Albumin 3.1 g/dL (3.4-5.0); Potassium 4.1 mmol/L (3.5-5.1); Prealbumin 23.5 mg/dL (20-40)
[2018-08-12] MEDS: LIDOCAINE 5% PATCH TOP SCH (07:01)
[2018-08-12] MEDS: GABAPENTIN 300 MG CAP PO SCH ×2 (08:27→13:29)
[2018-08-12] MEDS: FLECAINIDE 100 MG TAB PO SCH ×2 (08:28→19:58)
[2018-08-12] MEDS: CITALOPRAM 10 MG TABLET PO SCH (08:28)
[2018-08-12] MEDS: MAGNESIUM OXIDE 400 MG TAB PO SCH ×2 (08:29→19:58)
[2018-08-12] MEDS: APIXABAN 2.5 MG TABLET PO SCH ×2 (08:29→19:58)
[2018-08-12] MEDS: VITAMIN D 5,000 UNIT CAP PO SCH (08:29)
[2018-08-12] MEDS: FUROSEMIDE 20 MG TABLET PO SCH (08:29)
[2018-08-12] MEDS: CYANOCOBALAMIN 1,000 MCG TAB PO SCH (08:29)
[2018-08-12] MEDS: LISINOPRIL 5 MG TAB PO SCH (08:30)
[2018-08-12] MEDS: ACETAMINOPHEN 500 MG TAB PO PRN (08:46)
--- NOTE | 2018-08-12 09:37 | FAST ---
SHIFT START DATE/TIME: 08/12/2018 07:00 (CDT) SHIFT END DATE/TIME: 08/12/2018 19:00 (CDT) NAME PRICE ROGERS DATE OF : 1940 DATE OF ADMISSION: 07/05/2018 18:33 (CDT) PHONE: AGE: 78 N# [id number] GENDER: Male ENCOUNTER PHYSICIAN: Dr. Abdirahman Zepeda M.D. 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 EATING: EATING - STEP 1: Does the patient require the assistance of a person or device, or need extra time when eating? Yes. EATING - STEP 2: Does the patient require the assistance of a helper? Yes. EATING - STEP 3: Does the patient perform half or more of the eating tasks? Yes. EATING - STEP 4: Does the patient need only supervision, cuing, coaxing OR help to apply an orthosis OR help to cut fo od, open containers, pour liquids, or butter bread? Yes. EATING - SCORE: 5-SUP GROOMING: Comb/brush hair Oral care Patient shaved Wash, rinse, and dry face Wash, rinse, and dry hands GROOMING - STEP 1: Does the patient require the assistance of a person or device, or need extra time when grooming? Yes. GROOMING - STEP 2: Does the patient require the assistance of a helper? Yes. GROOMING - STEP 3: How much assistance does the patient require from the helper? Cuing, coaxing, instructions, or encour agement for completion of grooming GROOMING - SCORE: 5-SUP BATHING: Activity did not occur on this shift BATHING - SCORE: 0-UNK DRESSING - UPPER BODY: Activity did not occur on this shift ARTICLES SCORE Total number of steps: 0 DRESSING - UPPER BODY - SCORE: 0-UNK DRESSING - LOWER BODY: Activity did not occur on this shift ARTICLES SCORE Total number of steps: 0 DRESSING - LOWER BODY - SCORE: 0-UNK TOILETING: TOILETING - STEP 1: Does the patient require the assistance of a person or device, or need extra time with toileting? Yes . TOILETING - STEP 2: Does the patient require the assistance of a helper? Yes. TOILETING - STEP 3: How much assistance does the patient require from the helper? Hands-on assistance from the helper TOILETING - STEP 4: Of the 3 tasks: 1) Adjusting clothing prior to use, 2) Cleansing of perineal area, 3) Adjusting clot merissa after use; How many tasks does the patient perform WITHOUT assistance of the helper? Two tasks TOILETING - SCORE: 3-MOD BLADDER MANAGEMENT: BLADDER MANAGEMENT - STEP 1: Does the patient control the bladder completely and intentionally without equipment or devices or med ications, and is always continent? No. BLADDER MANAGEMENT - STEP 2: Does the patient require the assistance of a helper? No, patient requires and independently uses an a ssistive device, such as a urinal, bedpan, bedside commode, catheter, absorbent pad, or collecting de vice BLADDER MANAGEMENT - SCORE: 6-SILVESTRE BOWEL MANAGEMENT: Activity did not occur on this shift BOWEL MANAGEMENT - SCORE: 7-IND TRANSFERS: BED, CHAIR, WHEELCHAIR: Patient requires more than one helper and/or the use of a mechanical lift is utilized TRANSFERS: BED, CHAIR, WHEELCHAIR - SCORE: 1-DEP TRANSFERS: TOILET: Patient requires more than one helper and/or the use of a mechanical lift is utilized TRANSFERS: TOILET - SCORE: 1-DEP TRANSFERS: SHOWER: Activity did not occur on this shift TRANSFERS: SHOWER - SCORE: 0-UNK TRANSFERS: TUB: Activity did not occur on this shift TRANSFERS: TUB - SCORE: 0-UNK LOCOMOTION: WALK: Activity did not occur on this shift LOCOMOTION: WALK - SCORE: 0-UNK LOCOMOTION: WHEELCHAIR: Activity did not occur on this shift LOCOMOTION: WHEELCHAIR - SCORE: 0-UNK COMPREHENSION: COMPREHENSION: TYPE: Both COMPREHENSION - STEP 1: Does the patient require help from a person or device, or need extra time to understand complex and a bstract ideas (such as current events, finances, discharge planning, medical issues, relationships, e tc)? No. COMPREHENSION - STEP 2: Does the patient need extra time, require an assistive device (such as glasses for visual comprehensi on or a hearing aid for auditory comprehension) or does s/he have mild difficulty understanding compl ex and abstract information? Yes. COMPREHENSION - SCORE: 6-SILVESTRE EXPRESSION EXPRESSION: TYPE: Both EXPRESSION - STEP 1: Does the patient require help from a person or device, or need extra time expressing complex and abst ract ideas (such as current events, finances, discharge planning, medical issues, relationships, etc) ? No. EXPRESSION - STEP 2: Does the patient need extra time, require an assistive device (such as augmentive communication syste m or a communication board), OR does s/he have mild difficulty expressing complex and abstract ideas (including mild dysarthria or mild word-find problems)? Yes. EXPRESSION - SCORE: 6-SILVESTRE SOCIAL INTERACTION: SOCIAL INTERACTION - STEP 1: Does the patient require a helper to interact with others in social and therapeutic situations? No. SOCIAL INTERACTION - STEP 2: Does the patient need extra time in social situations, OR does s/he interact with staff, other patien ts, and family members ONLY in structured environments, OR does s/he require medication for social in teraction? Yes, patient needs extra time SOCIAL INTERACTION - SCORE: 6-SILVESTRE PROBLEM SOLVING: PROBLEM SOLVING - STEP 1: Does the patient need help from a person or device, or need extra time to solve complex problems such as managing a checking account or confronting interpersonal problems? No. PROBLEM SOLVING - STEP 2: Does the patient require extra time to make decisions or solve problems, OR does s/he have slight dif ficulty reading, initiating, or self-correcting in unfamiliar situations? Yes, patient needs extra ti me. PROBLEM SOLVING - SCORE: 6-SILVESTRE MEMORY: MEMORY - STEP 1: Does the patient need help from a person or device, or need extra time to remember frequently encount ered people, daily routines, and executing requests? No. MEMORY - STEP 2: Does the patient have slight difficulty recognizing frequently encountered people, daily routines, or executing requests without the need for repetition or using self-initiated or environmental cues to remember? Yes. MEMORY - SCORE: 6-SILVESTRE SIGNATURE PANEL: The following modified sections: Eating - Score, Grooming - Score, Bathing - Score, Dressing - Upper Body - Score, Dressing - Lower Body - Score, Toileting - Score, Bladder Management - Score, Bowel Man agement - Score, Transfers: Bed, Chair, Wheelchair - Score, Transfers: Toilet - Score, Transfers: Melissa wer - Score, Transfers: Tub - Score, Locomotion: Walk - Score, Locomotion: Wheelchair - Score, Compre hension - Score, Expression - Score, Social Interaction - Score, Problem Solving - Score, Memory - Sc ore were [electronically] signed by Wilmar Arboleda on ThuAug 12 2018 09:35:59 GMT-0500 (Central Daylight Time)
[2018-08-12] MEDS: VALSARTAN 80 MG TAB PO SCH (12:00)
--- NOTE | 2018-08-12 14:41 | FAST ---
ENCOUNTER DATE AND TIME: 08/12/2018 08:00 (CDT) NAME PRICE ROGERS DATE OF : 1940 DATE OF ADMISSION: 07/05/2018 18:33 (CDT) PHONE: AGE: 78 SSN# [id number] GENDER: Male ENCOUNTER PHYSICIAN: Dr. Abdirahman Zepeda M.D. 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 EATING: Activity did not occur on this shift EATING - SCORE: 0-UNK GROOMING: Activity did not occur on this shift GROOMING - SCORE: 0-UNK BATHING: Activity did not occur on this shift BATHING - SCORE: 0-UNK DRESSING - UPPER BODY: Activity did not occur on this shift Patient is not dressing in public clothing ARTICLES SCORE Total number of steps: 0 DRESSING - UPPER BODY - SCORE: 0-UNK DRESSING - LOWER BODY: Activity did not occur on this shift Patient is not dressing in public clothing ARTICLES SCORE Total number of steps: 0 DRESSING - LOWER BODY - SCORE: 0-UNK TOILETING: Activity did not occur on this shift TOILETING - SCORE: 0-UNK BLADDER MANAGEMENT: Activity did not occur on this shift BLADDER MANAGEMENT - SCORE: 7-IND BOWEL MANAGEMENT: Activity did not occur on this shift BOWEL MANAGEMENT - SCORE: 7-IND TRANSFERS: BED, CHAIR, WHEELCHAIR: TRANSFERS: BED, CHAIR, WHEELCHAIR - STEP 1: Does the patient require assistance of a person or device, or need extra time with bed, chair, or whe elchair transfers? Yes. TRANSFERS: BED, CHAIR, WHEELCHAIR - STEP 2: Does the patient require the assistance of a helper? Yes. TRANSFERS: BED, CHAIR, WHEELCHAIR - STEP 3: How much assistance does the patient require from the helper? Steadying/guiding assistance TRANSFERS: BED, CHAIR, WHEELCHAIR - SCORE: 4-MIN TRANSFERS: TOILET: Activity did not occur on this shift TRANSFERS: TOILET - SCORE: 0-UNK TRANSFERS: SHOWER: Activity did not occur on this shift TRANSFERS: SHOWER - SCORE: 0-UNK TRANSFERS: TUB: Activity did not occur on this shift TRANSFERS: TUB - SCORE: 0-UNK LOCOMOTION: WALK: Activity did not occur on this shift LOCOMOTION: WALK - SCORE: 0-UNK LOCOMOTION: WHEELCHAIR: LOCOMOTION: WHEELCHAIR - STEP 1: Does the patient need help to go 150 feet in a wheelchair? Yes. LOCOMOTION: WHEELCHAIR - STEP 2: How much assistance does the patient need from the helper? Only incidental help such as around corner s or over thresholds LOCOMOTION: WHEELCHAIR - SCORE: 4-MIN LOCOMOTION: STAIRS: Activity did not occur on this shift LOCOMOTION: STAIRS - SCORE: 0-UNK COMPREHENSION: COMPREHENSION - SCORE: 0-UNK EXPRESSION EXPRESSION - SCORE: 0-UNK SOCIAL INTERACTION: SOCIAL INTERACTION - SCORE: 0-UNK PROBLEM SOLVING: PROBLEM SOLVING - SCORE: 0-UNK MEMORY: MEMORY - SCORE: 0-UNK SIGNATURE PANEL: The following modified sections: Transfers: Bed, Chair, Wheelchair - Score, Transfers: Toilet - Score , Locomotion: Walk - Score, Locomotion: Wheelchair - Score, Locomotion: Stairs - Score were [electron daphney] signed by Skip Phillips PT on ThuAug 12 2018 14:40:41 T-0500 (Central Daylight Time)
[2018-08-12] MEDS: TAMSULOSIN 0.4 MG SR CAP PO SCH (19:59)
[2018-08-12] MEDS: ATORVASTATIN 10 MG TAB PO SCH (19:59)
[2018-08-12] MEDS: MELATONIN 3 MG TABLET PO PRN (22:30)
--- NOTE | 2018-08-13 03:07 | FAST ---
SHIFT START DATE/TIME: 08/12/2018 19:00 (CDT) SHIFT END DATE/TIME: 08/13/2018 07:00 (CDT) NAME PRICE ROGERS DATE OF : 1940 DATE OF ADMISSION: 07/05/2018 18:33 (CDT) PHONE: AGE: 78 N# [id number] GENDER: Male ENCOUNTER PHYSICIAN: Dr. Abdirahman Zepeda M.D. 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 EATING: Activity did not occur on this shift EATING - SCORE: 0-UNK GROOMING: Activity did not occur on this shift GROOMING - SCORE: 0-UNK BATHING: Activity did not occur on this shift BATHING - SCORE: 0-UNK DRESSING - UPPER BODY: Patient is not dressing in public clothing ARTICLES SCORE Total number of steps: 0 DRESSING - UPPER BODY - SCORE: 0-UNK DRESSING - LOWER BODY: Patient is not dressing in public clothing ARTICLES SCORE Total number of steps: 0 DRESSING - LOWER BODY - SCORE: 0-UNK TOILETING: TOILETING - STEP 1: Does the patient require the assistance of a person or device, or need extra time with toileting? Yes . TOILETING - STEP 2: Does the patient require the assistance of a helper? Yes. TOILETING - STEP 3: How much assistance does the patient require from the helper? Hands-on assistance from the helper TOILETING - STEP 4: Of the 3 tasks: 1) Adjusting clothing prior to use, 2) Cleansing of perineal area, 3) Adjusting clot merissa after use; How many tasks does the patient perform WITHOUT assistance of the helper? No tasks; h elper performs all three tasks TOILETING - SCORE: 1-DEP BLADDER MANAGEMENT: [place] removes incontinent device (Depends, pull ups, etc.); cleans the patient after accident / inco ntinent episode; and, applies new incontinent device. BLADDER MANAGEMENT - SCORE: 1-DEP BOWEL MANAGEMENT: Activity did not occur on this shift BOWEL MANAGEMENT - SCORE: 7-IND TRANSFERS: BED, CHAIR, WHEELCHAIR: Activity did not occur on this shift TRANSFERS: BED, CHAIR, WHEELCHAIR - SCORE: 0-UNK TRANSFERS: TOILET: Activity did not occur on this shift TRANSFERS: TOILET - SCORE: 0-UNK TRANSFERS: SHOWER: Activity did not occur on this shift TRANSFERS: SHOWER - SCORE: 0-UNK TRANSFERS: TUB: Activity did not occur on this shift TRANSFERS: TUB - SCORE: 0-UNK LOCOMOTION: WALK: Activity did not occur on this shift LOCOMOTION: WALK - SCORE: 0-UNK LOCOMOTION: WHEELCHAIR: Activity did not occur on this shift LOCOMOTION: WHEELCHAIR - SCORE: 0-UNK COMPREHENSION: COMPREHENSION: TYPE: Both COMPREHENSION - STEP 1: Does the patient require help from a person or device, or need extra time to understand complex and a bstract ideas (such as current events, finances, discharge planning, medical issues, relationships, e tc)? No. COMPREHENSION - STEP 2: Does the patient need extra time, require an assistive device (such as glasses for visual comprehensi on or a hearing aid for auditory comprehension) or does s/he have mild difficulty understanding compl ex and abstract information? Yes. COMPREHENSION - SCORE: 6-SILVESTRE EXPRESSION EXPRESSION: TYPE: Both EXPRESSION - STEP 1: Does the patient require help from a person or device, or need extra time expressing complex and abst ract ideas (such as current events, finances, discharge planning, medical issues, relationships, etc) ? No. EXPRESSION - STEP 2: Does the patient need extra time, require an assistive device (such as augmentive communication syste m or a communication board), OR does s/he have mild difficulty expressing complex and abstract ideas (including mild dysarthria or mild word-find problems)? No. EXPRESSION - SCORE: 7-IND SOCIAL INTERACTION: SOCIAL INTERACTION - STEP 1: Does the patient require a helper to interact with others in social and therapeutic situations? No. SOCIAL INTERACTION - STEP 2: Does the patient need extra time in social situations, OR does s/he interact with staff, other patien ts, and family members ONLY in structured environments, OR does s/he require medication for social in teraction? No. SOCIAL INTERACTION - SCORE: 7-IND PROBLEM SOLVING: PROBLEM SOLVING - STEP 1: Does the patient need help from a person or device, or need extra time to solve complex problems such as managing a checking account or confronting interpersonal problems? No. PROBLEM SOLVING - STEP 2: Does the patient require extra time to make decisions or solve problems, OR does s/he have slight dif ficulty reading, initiating, or self-correcting in unfamiliar situations? No. PROBLEM SOLVING - SCORE: 7-IND MEMORY: MEMORY - STEP 1: Does the patient need help from a person or device, or need extra time to remember frequently encount ered people, daily routines, and executing requests? No. MEMORY - STEP 2: Does the patient have slight difficulty recognizing frequently encountered people, daily routines, or executing requests without the need for repetition or using self-initiated or environmental cues to remember? No. MEMORY - SCORE: 7-IND SIGNATURE PANEL: The following modified sections: Eating - Score, Grooming - Score, Bathing - Score, Dressing - Upper Body - Score, Dressing - Lower Body - Score, Toileting - Score, Bladder Management - Score, Bowel Man agement - Score, Transfers: Bed, Chair, Wheelchair - Score, Transfers: Toilet - Score, Transfers: Melissa wer - Score, Transfers: Tub - Score, Locomotion: Walk - Score, Locomotion: Wheelchair - Score, Compre hension - Score, Expression - Score, Social Interaction - Score, Problem Solving - Score, Memory - Sc ore were [electronically] signed by Kaylen Nguyen RN on ThuAug 13 2018 03:06:33 T-0500 ([facility] Time)
[2018-08-13] MEDS: LIDOCAINE 5% PATCH TOP SCH (08:33)
[2018-08-13] MEDS: ACETAMINOPHEN 500 MG TAB PO PRN (08:33)
[2018-08-13] MEDS: VITAMIN D 5,000 UNIT CAP PO SCH (08:34)
[2018-08-13] MEDS: CYANOCOBALAMIN 1,000 MCG TAB PO SCH (08:34)
[2018-08-13] MEDS: CITALOPRAM 10 MG TABLET PO SCH (08:34)
[2018-08-13] MEDS: MAGNESIUM OXIDE 400 MG TAB PO SCH ×2 (08:35→21:11)
[2018-08-13] MEDS: FUROSEMIDE 20 MG TABLET PO SCH (08:35)
[2018-08-13] MEDS: APIXABAN 2.5 MG TABLET PO SCH ×2 (08:35→21:11)
[2018-08-13] MEDS: FLECAINIDE 100 MG TAB PO SCH ×2 (08:37→21:10)
[2018-08-13] MEDS: LISINOPRIL 5 MG TAB PO SCH (08:38)
--- NOTE | 2018-08-13 10:24 | P.RH.PN ---
Estimated Length of Stay: 43 Expected Discharge Date: 08/16/18 Discharge Disposition Plan: Home Family Support: Yes [facility] Goal: Mobility, Transfers, Self Care Vital Signs: Last Vital Signs Temp 97 F 08/13/18 07:03 Pulse 78 08/13/18 08:35 Resp 16 08/13/18 07:03 BP 149/90 H 08/13/18 08:35 Pulse Ox 93 08/13/18 07:03 Laboratory: Laboratory Last Values WBC 6.5 K/uL (4.3-10.9) 08/12/18 05:48 RBC 3.84 M/uL (4.33-5.43) L 08/12/18 05:48 Hgb 12.0 g/dL (13.6-17.9) L 08/12/18 05:48 Hct 35.9 % (39.6-49.0) L 08/12/18 05:48 MCV 93.6 fL (80-100) 08/12/18 05:48 MCH 31.4 pg (27.0-35.0) 08/12/18 05:48 MCHC 33.5 g/dL (32.0-36.0) 08/12/18 05:48 RDW 14.5 % (12.1-15.2) 08/12/18 05:48 Plt Count 244 K/uL (152-406) 08/12/18 05:48 MPV 9.0 fL (7.6-11.3) 08/12/18 05:48 Neutrophils % 64.1 % (41.7-73.7) 08/12/18 05:48 Lymphocytes % 22.7 % (15.3-44.8) 08/12/18 05:48 Monocytes % 8.2 % (3.3-12.3) 08/12/18 05:48 Eosinophils % 4.4 % (0-4.4) 08/12/18 05:48 Basophils % 0.6 % (0-1.3) 08/12/18 05:48 Absolute Neutrophils 4.2 K/uL (1.8-8.0) 08/12/18 05:48 Absolute Lymphocytes 1.5 K/uL (0.7-4.9) 08/12/18 05:48 Absolute Monocytes 0.5 K/uL (0.1-1.3) 08/12/18 05:48 Absolute Eosinophils 0.3 K/uL (0-0.5) 08/12/18 05:48 Absolute Basophils 0.0 K/uL (0-0.5) 08/12/18 05:48 Sodium 141 mmol/L (136-145) 08/12/18 05:48 Potassium 4.1 mmol/L (3.5-5.1) 08/12/18 05:48 Chloride 105 mmol/L (98-107) 08/12/18 05:48 Carbon Dioxide 31 mmol/L (21-32) 08/12/18 05:48 BUN 19 mg/dL (7-18) H 08/12/18 05:48 Creatinine 0.90 mg/dL (0.55-1.3) 08/12/18 05:48 Estimated GFR 82 mL/min (=/>90) L 08/12/18 05:48 Glucose 95 mg/dL (74-106) 08/12/18 05:48 Calcium 8.4 mg/dL (8.5-10.1) L 08/12/18 05:48 Magnesium 2.3 mg/dL (1.8-2.4) 08/05/18 05:28 Total Bilirubin 0.7 mg/dL (0.2-1.0) 07/06/18 06:04 Direct Bilirubin 0.2 mg/dL (0-0.2) 07/06/18 06:04 AST 25 U/L (15-37) 07/06/18 06:04 ALT 29 U/L (12-78) 07/06/18 06:04 Alkaline Phosphatase 94 U/L (45-117) 07/06/18 06:04 Serum Total Protein 7.0 g/dL (6.4-8.2) 07/06/18 06:04 Albumin 3.1 g/dL (3.4-5.0) L 08/12/18 05:48 Globulin 3.9 g/dL (2.3-3.5) H 07/06/18 06:04 Albumin/Globulin Ratio 0.8 (1.1-1.8) L 07/06/18 06:04 Prealbumin 23.5 mg/dL (20-40) 08/12/18 05:48 Urine Color Yellow 07/11/18 10:59 Urine Appearance Clear 07/11/18 10:59 Urine pH 6.0 (5.0-7.0) 07/11/18 10:59 Ur Specific [place] 1.020 (1.005-1.030) 07/11/18 10:59 Urine Ketones Negative (NEG) 07/11/18 10:59 Urine Blood Negative (NEG) 07/11/18 10:59 Urine Nitrite Negative (NEG) 07/11/18 10:59 Urine Bilirubin Negative (NEG) 07/11/18 10:59 Urine Urobilinogen 1.0 mg/dL (0.2-1.0) 07/11/18 10:59 Ur Leukocyte Esterase Trace (NEG) H 07/11/18 10:59 Urine RBC <5 /HPF (NONE SEEN) 07/11/18 10:59 Urine WBC <5 /HPF (<5) 07/11/18 10:59 Ur Squamous Epith Cells 5-10 /HPF (NONE SEEN) H 07/11/18 10:59 Urine Bacteria <20 /HPF (NONE SEEN) 07/11/18 10:59 Urine Mucus Slight /HPF (NONE SEEN) 07/07/18 00:10 Urine Culture Reflexed Not needed 07/11/18 10:59 Urine Glucose Negative (NEG) 07/11/18 10:59 Urine Total Protein Negative (NEG) 07/11/18 10:59 Weight: 214 lb Wound Present: No Closed Surgical Incision Present: No Negative Pressure Wound Therapy Present: No Physician Update: He is at contact guard assistance with transfers. He ambulates 60' with moderate assistance. Labs are reviewed and are stable. Medical Issues: DVT Prophylaxis - Eliquis 2.5mg BID Pain Issues: [place] 5/325mg Q6H PRN. Tramadol 50mg Q6H PRN. Lidocaine pacth 5% Daily Comment: Right Groin incision healed S/P thrombectomy Functional Improvement: 1. pt will perform functional transfers with SBA using a hemiwalker. 2. pt will ambulate household distances with SBA using a hemiwalker. 3. pt will perform bed mobility tasks with [place]. 4. pt will ascend and descend 1 step with CG assist using a hemiwalker. 5. pt will perform car transfer with CG assist using a hemiwalker. Functional Improvement Occupational Therapy: Patient continues to demonstrated slow steady progress toward OT goals. His performance also continues to fluctuate depending on fatigue level, and requires frequent resting breaks and verbal encouragement. Patient would benefit form further agressive OT at inpatient rehabilitation facility to address the goals as set in POC before a safe d/c. Speech Therapy Update: Pt is at MOD I for Auditory Comprehension, MOD I for Verbal Expression, MOD I for Social Interaction, MIN A for Problem Solving, and MOD I for Memory. Summary: Patient's care plan and ground crew linesman goals have been reviewed and revised as necessary. Please see the Rehabilitation Signature page for all necessary signatures.
[2018-08-13] MEDS: VALSARTAN 80 MG TAB PO SCH (12:00)
--- NOTE | 2018-08-13 12:57 | FAST ---
ENCOUNTER DATE AND TIME: 08/13/2018 08:00 (CDT) NAME PRICE ROGERS DATE OF : 1940 DATE OF ADMISSION: 07/05/2018 18:33 (CDT) PHONE: AGE: 78 SSN# [id number] GENDER: Male ENCOUNTER PHYSICIAN: Dr. Abdirahman Zepeda M.D. 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 EATING: Activity did not occur on this shift EATING - SCORE: 0-UNK GROOMING: Activity did not occur on this shift GROOMING - SCORE: 0-UNK BATHING: Activity did not occur on this shift BATHING - SCORE: 0-UNK DRESSING - UPPER BODY: Activity did not occur on this shift Patient is not dressing in public clothing ARTICLES SCORE Total number of steps: 0 DRESSING - UPPER BODY - SCORE: 0-UNK DRESSING - LOWER BODY: Activity did not occur on this shift Patient is not dressing in public clothing ARTICLES SCORE Total number of steps: 0 DRESSING - LOWER BODY - SCORE: 0-UNK TOILETING: Activity did not occur on this shift TOILETING - SCORE: 0-UNK BLADDER MANAGEMENT: Activity did not occur on this shift BLADDER MANAGEMENT - SCORE: 7-IND BOWEL MANAGEMENT: Activity did not occur on this shift BOWEL MANAGEMENT - SCORE: 7-IND TRANSFERS: BED, CHAIR, WHEELCHAIR: TRANSFERS: BED, CHAIR, WHEELCHAIR - STEP 1: Does the patient require assistance of a person or device, or need extra time with bed, chair, or whe elchair transfers? Yes. TRANSFERS: BED, CHAIR, WHEELCHAIR - STEP 2: Does the patient require the assistance of a helper? Yes. TRANSFERS: BED, CHAIR, WHEELCHAIR - STEP 3: How much assistance does the patient require from the helper? Lifting of the patient TRANSFERS: BED, CHAIR, WHEELCHAIR - STEP 4: Does the helper lift the patient ONLY up? ONLY down? Up AND Down? ONLY up. TRANSFERS: BED, CHAIR, WHEELCHAIR - SCORE: 3-MOD TRANSFERS: TOILET: Activity did not occur on this shift TRANSFERS: TOILET - SCORE: 0-UNK TRANSFERS: SHOWER: Activity did not occur on this shift TRANSFERS: SHOWER - SCORE: 0-UNK TRANSFERS: TUB: Activity did not occur on this shift TRANSFERS: TUB - SCORE: 0-UNK LOCOMOTION: WALK: Activity did not occur on this shift LOCOMOTION: WALK - SCORE: 0-UNK LOCOMOTION: WHEELCHAIR: LOCOMOTION: WHEELCHAIR - STEP 1: Does the patient need help to go 150 feet in a wheelchair? Yes. LOCOMOTION: WHEELCHAIR - STEP 2: How much assistance does the patient need from the helper? More than incidental help LOCOMOTION: WHEELCHAIR - SCORE: 3-MOD LOCOMOTION: STAIRS: Activity did not occur on this shift LOCOMOTION: STAIRS - SCORE: 0-UNK COMPREHENSION: COMPREHENSION - SCORE: 0-UNK EXPRESSION EXPRESSION - SCORE: 0-UNK SOCIAL INTERACTION: SOCIAL INTERACTION - SCORE: 0-UNK PROBLEM SOLVING: PROBLEM SOLVING - SCORE: 0-UNK MEMORY: MEMORY - SCORE: 0-UNK SIGNATURE PANEL: The following modified sections: Transfers: Bed, Chair, Wheelchair - Score, Transfers: Toilet - Score , Locomotion: Walk - Score, Locomotion: Wheelchair - Score, Locomotion: Stairs - Score were [electron daphney] signed by Dora Hunter PTA on ThuAug 13 2018 12:56:40 GMT-0500 (Central Daylight Time)
--- NOTE | 2018-08-13 13:40 | FAST ---
SHIFT START DATE/TIME: 08/13/2018 07:00 (CDT) SHIFT END DATE/TIME: 08/13/2018 19:00 (CDT) NAME PRICE ROGERS DATE OF : 1940 DATE OF ADMISSION: 07/05/2018 18:33 (CDT) PHONE: AGE: 78 N# [id number] GENDER: Male ENCOUNTER PHYSICIAN: Dr. Abdirahman Zepeda M.D. 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 EATING: EATING - STEP 1: Does the patient require the assistance of a person or device, or need extra time when eating? Yes. EATING - STEP 2: Does the patient require the assistance of a helper? Yes. EATING - STEP 3: Does the patient perform half or more of the eating tasks? Yes. EATING - STEP 4: Does the patient need only supervision, cuing, coaxing OR help to apply an orthosis OR help to cut fo od, open containers, pour liquids, or butter bread? Yes. EATING - SCORE: 5-SUP GROOMING: Comb/brush hair Oral care Patient shaved Wash, rinse, and dry face Wash, rinse, and dry hands GROOMING - STEP 1: Does the patient require the assistance of a person or device, or need extra time when grooming? Yes. GROOMING - STEP 2: Does the patient require the assistance of a helper? No. The patient only requires an assistive devic e, OR takes more than reasonable time to groom, OR there is a concern for safety as the patient groom s GROOMING - SCORE: 6-SILVESTRE BATHING: Activity did not occur on this shift BATHING - SCORE: 0-UNK DRESSING - UPPER BODY: T-shirt/pullover shirt (four steps) ARTICLES SCORE Total number of steps: 4 DRESSING - UPPER BODY - STEP 1: Does the patient require help from a person or device, or need extra time when dressing above the [address]? Yes. DRESSING - UPPER BODY - STEP 2: Does the patient require the assistance of a helper? Yes. DRESSING - UPPER BODY - STEP 3: Does the helper touch the patient while dressing? Yes. DRESSING - UPPER BODY - STEP 4: How many of the total steps does the patient complete on his/her own? 2 DRESSING - UPPER BODY - SCORE: 3-MOD DRESSING - LOWER BODY: Elastic waist pants (three steps) Slip-on shoe - Left foot (one step) Slip-on shoe - Right foot (one step) Underwear (three steps) ARTICLES SCORE Total number of steps: 8 DRESSING - LOWER BODY - STEP 1: Does the patient require help from a person or device, or need extra time when dressing below the [address]? Yes. DRESSING - LOWER BODY - STEP 2: Does the patient require the assistance of a helper? Yes. DRESSING - LOWER BODY - STEP 3: Does the helper touch the patient while dressing? Yes. DRESSING - LOWER BODY - STEP 4: How many of the total steps does the patient complete on his/her own? 0 DRESSING - LOWER BODY - STEP 5: Does patient require total assistance for dressing below the waist such as the helper holding clothin g and performing basically all the activities? Yes. DRESSING - LOWER BODY - SCORE: 1-DEP TOILETING: TOILETING - STEP 1: Does the patient require the assistance of a person or device, or need extra time with toileting? Yes . TOILETING - STEP 2: Does the patient require the assistance of a helper? Yes. TOILETING - STEP 3: How much assistance does the patient require from the helper? Hands-on assistance from the helper TOILETING - STEP 4: Of the 3 tasks: 1) Adjusting clothing prior to use, 2) Cleansing of perineal area, 3) Adjusting clot merissa after use; How many tasks does the patient perform WITHOUT assistance of the helper? No tasks; h elper performs all three tasks TOILETING - SCORE: 1-DEP BLADDER MANAGEMENT: BLADDER MANAGEMENT - STEP 1: Does the patient control the bladder completely and intentionally without equipment or devices or med ications, and is always continent? No. BLADDER MANAGEMENT - STEP 2: Does the patient require the assistance of a helper? Yes. BLADDER MANAGEMENT - STEP 3: How much assistance does the patient require from the helper? Patient requires contact assistance fro m the helper BLADDER MANAGEMENT - STEP 4: How much contact assistance does the patient require from the helper? Patient requires maximal assist ance, and only performs 25% to 49% of bladder management tasks BLADDER MANAGEMENT - SCORE: 2-MAX BLADDER MANAGEMENT - FREQUENCY OF ACCIDENTS: BLADDER MANAGEMENT(FA) - STEP 1: How many accidents has the patient had during the current shift? 3 BOWEL MANAGEMENT: BOWEL MANAGEMENT - STEP 1: Does the patient control bowels completely and intentionally without equipment devices or medications AND is always continent? No. BOWEL MANAGEMENT - STEP 2: Does the patient require the assistance of a helper? No, patient requires extra time BOWEL MANAGEMENT - SCORE: 6-SILVESTRE BOWEL MANAGEMENT - FREQUENCY OF ACCIDENTS: BOWEL MANAGEMENT(FA) - STEP 1: How many accidents has the patient had during the current shift? 0 TRANSFERS: BED, CHAIR, WHEELCHAIR: Patient requires more than one helper and/or the use of a mechanical lift is utilized TRANSFERS: BED, CHAIR, WHEELCHAIR - SCORE: 1-DEP TRANSFERS: TOILET: Patient requires more than one helper and/or the use of a mechanical lift is utilized TRANSFERS: TOILET - SCORE: 1-DEP TRANSFERS: SHOWER: Activity did not occur on this shift TRANSFERS: SHOWER - SCORE: 0-UNK TRANSFERS: TUB: Activity did not occur on this shift TRANSFERS: TUB - SCORE: 0-UNK LOCOMOTION: WALK: Activity did not occur on this shift LOCOMOTION: WALK - SCORE: 0-UNK LOCOMOTION: WHEELCHAIR: Activity did not occur on this shift LOCOMOTION: WHEELCHAIR - SCORE: 0-UNK COMPREHENSION: COMPREHENSION: TYPE: Both COMPREHENSION - STEP 1: Does the patient require help from a person or device, or need extra time to understand complex and a bstract ideas (such as current events, finances, discharge planning, medical issues, relationships, e tc)? No. COMPREHENSION - STEP 2: Does the patient need extra time, require an assistive device (such as glasses for visual comprehensi on or a hearing aid for auditory comprehension) or does s/he have mild difficulty understanding compl ex and abstract information? Yes. COMPREHENSION - SCORE: 6-SILVESTRE EXPRESSION EXPRESSION: TYPE: Both EXPRESSION - STEP 1: Does the patient require help from a person or device, or need extra time expressing complex and abst ract ideas (such as current events, finances, discharge planning, medical issues, relationships, etc) ? No. EXPRESSION - STEP 2: Does the patient need extra time, require an assistive device (such as augmentive communication syste m or a communication board), OR does s/he have mild difficulty expressing complex and abstract ideas (including mild dysarthria or mild word-find problems)? Yes. EXPRESSION - SCORE: 6-SILVESTRE SOCIAL INTERACTION: SOCIAL INTERACTION - STEP 1: Does the patient require a helper to interact with others in social and therapeutic situations? No. SOCIAL INTERACTION - STEP 2: Does the patient need extra time in social situations, OR does s/he interact with staff, other patien ts, and family members ONLY in structured environments, OR does s/he require medication for social in teraction? Yes, patient needs extra time SOCIAL INTERACTION - SCORE: 6-SILVESTRE PROBLEM SOLVING: PROBLEM SOLVING - STEP 1: Does the patient need help from a person or device, or need extra time to solve complex problems such as managing a checking account or confronting interpersonal problems? No. PROBLEM SOLVING - STEP 2: Does the patient require extra time to make decisions or solve problems, OR does s/he have slight dif ficulty reading, initiating, or self-correcting in unfamiliar situations? Yes, patient needs extra ti me. PROBLEM SOLVING - SCORE: 6-SILVESTRE MEMORY: MEMORY - STEP 1: Does the patient need help from a person or device, or need extra time to remember frequently encount ered people, daily routines, and executing requests? No. MEMORY - STEP 2: Does the patient have slight difficulty recognizing frequently encountered people, daily routines, or executing requests without the need for repetition or using self-initiated or environmental cues to remember? Yes. MEMORY - SCORE: 6-SILVESTRE SIGNATURE PANEL: The following modified sections: Eating - Score, Grooming - Score, Bathing - Score, Dressing - Upper Body - Score, Dressing - Lower Body - Score, Toileting - Score, Bladder Management - Score, Bowel Man agement - Score, Transfers: Bed, Chair, Wheelchair - Score, Transfers: Toilet - Score, Transfers: Melissa wer - Score, Transfers: Tub - Score, Locomotion: Walk - Score, Locomotion: Wheelchair - Score, Compre hension - Score, Expression - Score, Social Interaction - Score, Problem Solving - Score, Memory - Sc ore were [electronically] signed by Penelope Medrano C.N.A. on ThuAug 13 2018 13:39:08 T-0500 ([facility])
[2018-08-13] MEDS: ATORVASTATIN 10 MG TAB PO SCH (21:10)
[2018-08-13] MEDS: TAMSULOSIN 0.4 MG SR CAP PO SCH (21:10)
[2018-08-13] MEDS: ALPRAZOLAM 1 MG TABLET PO PRN (22:04)
[2018-08-14] MEDS: LIDOCAINE 5% PATCH TOP SCH (09:07)
[2018-08-14] MEDS: CITALOPRAM 10 MG TABLET PO SCH (09:08)
[2018-08-14] MEDS: APIXABAN 2.5 MG TABLET PO SCH ×2 (09:09→21:20)
[2018-08-14] MEDS: VITAMIN D 5,000 UNIT CAP PO SCH (09:09)
[2018-08-14] MEDS: LISINOPRIL 5 MG TAB PO SCH (09:09)
[2018-08-14] MEDS: FUROSEMIDE 20 MG TABLET PO SCH (09:09)
[2018-08-14] MEDS: CYANOCOBALAMIN 1,000 MCG TAB PO SCH (09:10)
[2018-08-14] MEDS: FLECAINIDE 100 MG TAB PO SCH ×2 (09:10→21:20)
[2018-08-14] MEDS: ACETAMINOPHEN 500 MG TAB PO PRN (09:11)
[2018-08-14] MEDS: MAGNESIUM OXIDE 400 MG TAB PO SCH ×2 (09:11→21:21)
[2018-08-14] MEDS: VALSARTAN 80 MG TAB PO SCH (13:15)
--- NOTE | 2018-08-14 16:14 | FAST ---
SHIFT START DATE/TIME: 08/14/2018 07:00 (CDT) SHIFT END DATE/TIME: 08/14/2018 19:00 (CDT) NAME PRICE ROGERS DATE OF : 1940 DATE OF ADMISSION: 07/05/2018 18:33 (CDT) PHONE: AGE: 78 N# [id number] GENDER: Male ENCOUNTER PHYSICIAN: Dr. Abdirahman Zepeda M.D. 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 EATING: EATING - STEP 1: Does the patient require the assistance of a person or device, or need extra time when eating? Yes. EATING - STEP 2: Does the patient require the assistance of a helper? Yes. EATING - STEP 3: Does the patient perform half or more of the eating tasks? Yes. EATING - STEP 4: Does the patient need only supervision, cuing, coaxing OR help to apply an orthosis OR help to cut fo od, open containers, pour liquids, or butter bread? Yes. EATING - SCORE: 5-SUP GROOMING: Comb/brush hair Oral care Patient shaved Wash, rinse, and dry face Wash, rinse, and dry hands GROOMING - STEP 1: Does the patient require the assistance of a person or device, or need extra time when grooming? Yes. GROOMING - STEP 2: Does the patient require the assistance of a helper? No. The patient only requires an assistive devic e, OR takes more than reasonable time to groom, OR there is a concern for safety as the patient groom s GROOMING - SCORE: 6-SILVESTRE BATHING: Activity did not occur on this shift BATHING - SCORE: 0-UNK DRESSING - UPPER BODY: T-shirt/pullover shirt (four steps) ARTICLES SCORE Total number of steps: 4 DRESSING - UPPER BODY - STEP 1: Does the patient require help from a person or device, or need extra time when dressing above the [address]? Yes. DRESSING - UPPER BODY - STEP 2: Does the patient require the assistance of a helper? Yes. DRESSING - UPPER BODY - STEP 3: Does the helper touch the patient while dressing? Yes. DRESSING - UPPER BODY - STEP 4: How many of the total steps does the patient complete on his/her own? 2 DRESSING - UPPER BODY - SCORE: 3-MOD DRESSING - LOWER BODY: Elastic waist pants (three steps) Slip-on shoe - Left foot (one step) Underwear (three steps) ARTICLES SCORE Total number of steps: 7 DRESSING - LOWER BODY - STEP 1: Does the patient require help from a person or device, or need extra time when dressing below the [address]? Yes. DRESSING - LOWER BODY - STEP 2: Does the patient require the assistance of a helper? Yes. DRESSING - LOWER BODY - STEP 3: Does the helper touch the patient while dressing? Yes. DRESSING - LOWER BODY - STEP 4: How many of the total steps does the patient complete on his/her own? 0 DRESSING - LOWER BODY - STEP 5: Does patient require total assistance for dressing below the waist such as the helper holding clothin g and performing basically all the activities? Yes. DRESSING - LOWER BODY - SCORE: 1-DEP TOILETING: TOILETING - STEP 1: Does the patient require the assistance of a person or device, or need extra time with toileting? Yes . TOILETING - STEP 2: Does the patient require the assistance of a helper? Yes. TOILETING - STEP 3: How much assistance does the patient require from the helper? Hands-on assistance from the helper TOILETING - STEP 4: Of the 3 tasks: 1) Adjusting clothing prior to use, 2) Cleansing of perineal area, 3) Adjusting clot merissa after use; How many tasks does the patient perform WITHOUT assistance of the helper? No tasks; h elper performs all three tasks TOILETING - SCORE: 1-DEP BLADDER MANAGEMENT: [place] removes incontinent device (Depends, pull ups, etc.); cleans the patient after accident / inco ntinent episode; and, applies new incontinent device. BLADDER MANAGEMENT - SCORE: 1-DEP BLADDER MANAGEMENT - FREQUENCY OF ACCIDENTS: BLADDER MANAGEMENT(FA) - STEP 1: How many accidents has the patient had during the current shift? 3 BOWEL MANAGEMENT: BOWEL MANAGEMENT - STEP 1: Does the patient control bowels completely and intentionally without equipment devices or medications AND is always continent? No. BOWEL MANAGEMENT - STEP 2: Does the patient require the assistance of a helper? No, patient requires medication for control such as stool softeners, suppositories, laxatives, enemas, or OTC medications BOWEL MANAGEMENT - SCORE: 6-SILVESTRE BOWEL MANAGEMENT - FREQUENCY OF ACCIDENTS: BOWEL MANAGEMENT(FA) - STEP 1: How many accidents has the patient had during the current shift? 0 TRANSFERS: BED, CHAIR, WHEELCHAIR: Patient requires more than one helper and/or the use of a mechanical lift is utilized TRANSFERS: BED, CHAIR, WHEELCHAIR - SCORE: 1-DEP TRANSFERS: TOILET: Patient requires more than one helper and/or the use of a mechanical lift is utilized TRANSFERS: TOILET - SCORE: 1-DEP TRANSFERS: SHOWER: Activity did not occur on this shift TRANSFERS: SHOWER - SCORE: 0-UNK TRANSFERS: TUB: Activity did not occur on this shift TRANSFERS: TUB - SCORE: 0-UNK LOCOMOTION: WALK: Activity did not occur on this shift LOCOMOTION: WALK - SCORE: 0-UNK LOCOMOTION: WHEELCHAIR: Activity did not occur on this shift LOCOMOTION: WHEELCHAIR - SCORE: 0-UNK COMPREHENSION: COMPREHENSION: TYPE: Both COMPREHENSION - STEP 1: Does the patient require help from a person or device, or need extra time to understand complex and a bstract ideas (such as current events, finances, discharge planning, medical issues, relationships, e tc)? No. COMPREHENSION - STEP 2: Does the patient need extra time, require an assistive device (such as glasses for visual comprehensi on or a hearing aid for auditory comprehension) or does s/he have mild difficulty understanding compl ex and abstract information? Yes. COMPREHENSION - SCORE: 6-SILVESTRE EXPRESSION EXPRESSION: TYPE: Both EXPRESSION - STEP 1: Does the patient require help from a person or device, or need extra time expressing complex and abst ract ideas (such as current events, finances, discharge planning, medical issues, relationships, etc) ? No. EXPRESSION - STEP 2: Does the patient need extra time, require an assistive device (such as augmentive communication syste m or a communication board), OR does s/he have mild difficulty expressing complex and abstract ideas (including mild dysarthria or mild word-find problems)? Yes. EXPRESSION - SCORE: 6-SILVESTRE SOCIAL INTERACTION: SOCIAL INTERACTION - STEP 1: Does the patient require a helper to interact with others in social and therapeutic situations? No. SOCIAL INTERACTION - STEP 2: Does the patient need extra time in social situations, OR does s/he interact with staff, other patien ts, and family members ONLY in structured environments, OR does s/he require medication for social in teraction? Yes, patient needs extra time SOCIAL INTERACTION - SCORE: 6-SILVESTRE PROBLEM SOLVING: PROBLEM SOLVING - STEP 1: Does the patient need help from a person or device, or need extra time to solve complex problems such as managing a checking account or confronting interpersonal problems? No. PROBLEM SOLVING - STEP 2: Does the patient require extra time to make decisions or solve problems, OR does s/he have slight dif ficulty reading, initiating, or self-correcting in unfamiliar situations? Yes, patient needs extra ti me. PROBLEM SOLVING - SCORE: 6-SILVESTRE MEMORY: MEMORY - STEP 1: Does the patient need help from a person or device, or need extra time to remember frequently encount ered people, daily routines, and executing requests? No. MEMORY - STEP 2: Does the patient have slight difficulty recognizing frequently encountered people, daily routines, or executing requests without the need for repetition or using self-initiated or environmental cues to remember? Yes. MEMORY - SCORE: 6-SILVESTRE SIGNATURE PANEL: The following modified sections: Eating - Score, Grooming - Score, Bathing - Score, Dressing - Upper Body - Score, Dressing - Lower Body - Score, Toileting - Score, Bladder Management - Score, Transfers : Bed, Chair, Wheelchair - Score, Transfers: Toilet - Score, Transfers: Shower - Score, Transfers: Tu b - Score, Locomotion: Walk - Score, Locomotion: Wheelchair - Score, Comprehension - Score, Expressio n - Score, Social Interaction - Score, Problem Solving - Score, Memory - Score, Bowel Management - Sc ore were [electronically] signed by Penelope Medrano C.N.A. on Sat Aug 14 2018 16:13:34 T-0500 (Cent[facility] [place] Daylight Time)
[2018-08-14] MEDS: TAMSULOSIN 0.4 MG SR CAP PO SCH (21:20)
[2018-08-14] MEDS: ATORVASTATIN 10 MG TAB PO SCH (21:20)
[2018-08-14] MEDS: POLYVINYL ALCOHOL 1.4% 15 ML EACH EYE PRN (21:22)
[2018-08-14] MEDS: MELATONIN 3 MG TABLET PO PRN (21:24)
[2018-08-14] MEDS: HYDROCORTISONE 1 % CREAM 30GM TOP PRN (21:24)
--- NOTE | 2018-08-15 02:45 | FAST ---
SHIFT START DATE/TIME: 08/13/2018 19:00 (CDT) SHIFT END DATE/TIME: 08/14/2018 07:00 (CDT) NAME PRICE ROGERS DATE OF : 1940 DATE OF ADMISSION: 07/05/2018 18:33 (CDT) PHONE: AGE: 78 N# [id number] GENDER: Male ENCOUNTER PHYSICIAN: Dr. Abdirahman Zepeda M.D. 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 EATING: Activity did not occur on this shift EATING - SCORE: 0-UNK GROOMING: Activity did not occur on this shift GROOMING - SCORE: 0-UNK BATHING: Activity did not occur on this shift BATHING - SCORE: 0-UNK DRESSING - UPPER BODY: Patient is not dressing in public clothing ARTICLES SCORE Total number of steps: 0 DRESSING - UPPER BODY - SCORE: 0-UNK DRESSING - LOWER BODY: Patient is not dressing in public clothing ARTICLES SCORE Total number of steps: 0 DRESSING - LOWER BODY - SCORE: 0-UNK TOILETING: TOILETING - STEP 1: Does the patient require the assistance of a person or device, or need extra time with toileting? Yes . TOILETING - STEP 2: Does the patient require the assistance of a helper? Yes. TOILETING - STEP 3: How much assistance does the patient require from the helper? Hands-on assistance from the helper TOILETING - STEP 4: Of the 3 tasks: 1) Adjusting clothing prior to use, 2) Cleansing of perineal area, 3) Adjusting clot merissa after use; How many tasks does the patient perform WITHOUT assistance of the helper? No tasks; h raquel performs all three tasks TOILETING - SCORE: 1-DEP BLADDER MANAGEMENT: BLADDER MANAGEMENT - STEP 1: Does the patient control the bladder completely and intentionally without equipment or devices or med ications, and is always continent? No. BLADDER MANAGEMENT - STEP 2: Does the patient require the assistance of a helper? Yes. BLADDER MANAGEMENT - STEP 3: How much assistance does the patient require from the helper? Patient requires contact assistance fro m the helper BLADDER MANAGEMENT - STEP 4: How much contact assistance does the patient require from the helper? Patient requires minimal assist ance to maintain an external device - by positioning, and the patient performs 75% or more of bladder management tasks, while the helper provides less than 25% of the assistance to position patient on / off bedpan BLADDER MANAGEMENT - SCORE: 4-MIN BOWEL MANAGEMENT: Activity did not occur on this shift BOWEL MANAGEMENT - SCORE: 7-IND TRANSFERS: BED, CHAIR, WHEELCHAIR: Patient requires more than one helper and/or the use of a mechanical lift is utilized TRANSFERS: BED, CHAIR, WHEELCHAIR - SCORE: 1-DEP TRANSFERS: TOILET: Patient requires more than one helper and/or the use of a mechanical lift is utilized TRANSFERS: TOILET - SCORE: 1-DEP TRANSFERS: SHOWER: Activity did not occur on this shift TRANSFERS: SHOWER - SCORE: 0-UNK TRANSFERS: TUB: Activity did not occur on this shift TRANSFERS: TUB - SCORE: 0-UNK LOCOMOTION: WALK: Activity did not occur on this shift LOCOMOTION: WALK - SCORE: 0-UNK LOCOMOTION: WHEELCHAIR: Activity did not occur on this shift LOCOMOTION: WHEELCHAIR - SCORE: 0-UNK COMPREHENSION: COMPREHENSION: TYPE: Both COMPREHENSION - STEP 1: Does the patient require help from a person or device, or need extra time to understand complex and a bstract ideas (such as current events, finances, discharge planning, medical issues, relationships, e tc)? No. COMPREHENSION - STEP 2: Does the patient need extra time, require an assistive device (such as glasses for visual comprehensi on or a hearing aid for auditory comprehension) or does s/he have mild difficulty understanding compl ex and abstract information? Yes. COMPREHENSION - SCORE: 6-SILVESTRE EXPRESSION EXPRESSION: TYPE: Both EXPRESSION - STEP 1: Does the patient require help from a person or device, or need extra time expressing complex and abst ract ideas (such as current events, finances, discharge planning, medical issues, relationships, etc) ? No. EXPRESSION - STEP 2: Does the patient need extra time, require an assistive device (such as augmentive communication syste m or a communication board), OR does s/he have mild difficulty expressing complex and abstract ideas (including mild dysarthria or mild word-find problems)? No. EXPRESSION - SCORE: 7-IND SOCIAL INTERACTION: SOCIAL INTERACTION - STEP 1: Does the patient require a helper to interact with others in social and therapeutic situations? No. SOCIAL INTERACTION - STEP 2: Does the patient need extra time in social situations, OR does s/he interact with staff, other patien ts, and family members ONLY in structured environments, OR does s/he require medication for social in teraction? Yes, patient requires medication for social interaction SOCIAL INTERACTION - SCORE: 6-SILVESTRE PROBLEM SOLVING: PROBLEM SOLVING - STEP 1: Does the patient need help from a person or device, or need extra time to solve complex problems such as managing a checking account or confronting interpersonal problems? No. PROBLEM SOLVING - STEP 2: Does the patient require extra time to make decisions or solve problems, OR does s/he have slight dif ficulty reading, initiating, or self-correcting in unfamiliar situations? No. PROBLEM SOLVING - SCORE: 7-IND MEMORY: MEMORY - STEP 1: Does the patient need help from a person or device, or need extra time to remember frequently encount ered people, daily routines, and executing requests? No. MEMORY - STEP 2: Does the patient have slight difficulty recognizing frequently encountered people, daily routines, or executing requests without the need for repetition or using self-initiated or environmental cues to remember? No. MEMORY - SCORE: 7-IND
[2018-08-15] MEDS: LIDOCAINE 5% PATCH TOP SCH (08:49)
[2018-08-15] MEDS: VITAMIN D 5,000 UNIT CAP PO SCH (08:50)
[2018-08-15] MEDS: FLECAINIDE 100 MG TAB PO SCH ×2 (08:50→21:29)
[2018-08-15] MEDS: APIXABAN 2.5 MG TABLET PO SCH ×2 (08:51→21:29)
[2018-08-15] MEDS: FUROSEMIDE 20 MG TABLET PO SCH (08:51)
[2018-08-15] MEDS: CYANOCOBALAMIN 1,000 MCG TAB PO SCH (08:51)
[2018-08-15] MEDS: LISINOPRIL 5 MG TAB PO SCH (08:52)
[2018-08-15] MEDS: MAGNESIUM OXIDE 400 MG TAB PO SCH ×2 (08:52→21:28)
[2018-08-15] MEDS ORDERED: CETIRIZINE HCL 5 MG TABLET PO PRN (10:56)
[2018-08-15] MEDS: VALSARTAN 80 MG TAB PO SCH (11:19)
--- NOTE | 2018-08-15 13:27 | FAST ---
SHIFT START DATE/TIME: 08/15/2018 07:00 (CDT) SHIFT END DATE/TIME: 08/15/2018 19:00 (CDT) NAME PRICE ROGERS DATE OF : 1940 DATE OF ADMISSION: 07/05/2018 18:33 (CDT) PHONE: AGE: 78 N# [id number] GENDER: Male ENCOUNTER PHYSICIAN: Dr. Abdirahman Zepeda M.D. 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 EATING: EATING - STEP 1: Does the patient require the assistance of a person or device, or need extra time when eating? Yes. EATING - STEP 2: Does the patient require the assistance of a helper? Yes. EATING - STEP 3: Does the patient perform half or more of the eating tasks? Yes. EATING - STEP 4: Does the patient need only supervision, cuing, coaxing OR help to apply an orthosis OR help to cut fo od, open containers, pour liquids, or butter bread? Yes. EATING - SCORE: 5-SUP GROOMING: Comb/brush hair Oral care Patient shaved Wash, rinse, and dry face Wash, rinse, and dry hands GROOMING - STEP 1: Does the patient require the assistance of a person or device, or need extra time when grooming? Yes. GROOMING - STEP 2: Does the patient require the assistance of a helper? No. The patient only requires an assistive devic e, OR takes more than reasonable time to groom, OR there is a concern for safety as the patient groom s GROOMING - SCORE: 6-SILVESTRE BATHING: Activity did not occur on this shift BATHING - SCORE: 0-UNK DRESSING - UPPER BODY: Activity did not occur on this shift ARTICLES SCORE Total number of steps: 0 DRESSING - UPPER BODY - SCORE: 0-UNK DRESSING - LOWER BODY: Elastic waist pants (three steps) Slip-on shoe - Left foot (one step) Slip-on shoe - Right foot (one step) Underwear (three steps) ARTICLES SCORE Total number of steps: 8 DRESSING - LOWER BODY - STEP 1: Does the patient require help from a person or device, or need extra time when dressing below the [address]? Yes. DRESSING - LOWER BODY - STEP 2: Does the patient require the assistance of a helper? Yes. DRESSING - LOWER BODY - STEP 3: Does the helper touch the patient while dressing? Yes. DRESSING - LOWER BODY - STEP 4: How many of the total steps does the patient complete on his/her own? 0 DRESSING - LOWER BODY - STEP 5: Does patient require total assistance for dressing below the waist such as the helper holding clothin g and performing basically all the activities? Yes. DRESSING - LOWER BODY - SCORE: 1-DEP TOILETING: TOILETING - STEP 1: Does the patient require the assistance of a person or device, or need extra time with toileting? Yes . TOILETING - STEP 2: Does the patient require the assistance of a helper? Yes. TOILETING - STEP 3: How much assistance does the patient require from the helper? Hands-on assistance from the helper TOILETING - STEP 4: Of the 3 tasks: 1) Adjusting clothing prior to use, 2) Cleansing of perineal area, 3) Adjusting clot merissa after use; How many tasks does the patient perform WITHOUT assistance of the helper? No tasks; h elper performs all three tasks TOILETING - SCORE: 1-DEP BLADDER MANAGEMENT: [place] removes incontinent device (Depends, pull ups, etc.); cleans the patient after accident / inco ntinent episode; and, applies new incontinent device. BLADDER MANAGEMENT - SCORE: 1-DEP BLADDER MANAGEMENT - FREQUENCY OF ACCIDENTS: BLADDER MANAGEMENT(FA) - STEP 1: How many accidents has the patient had during the current shift? 2 BOWEL MANAGEMENT: BOWEL MANAGEMENT - STEP 1: Does the patient control bowels completely and intentionally without equipment devices or medications AND is always continent? No. BOWEL MANAGEMENT - STEP 2: Does the patient require the assistance of a helper? No, patient requires medication for control such as stool softeners, suppositories, laxatives, enemas, or OTC medications BOWEL MANAGEMENT - SCORE: 6-SILVESTRE BOWEL MANAGEMENT - FREQUENCY OF ACCIDENTS: BOWEL MANAGEMENT(FA) - STEP 1: How many accidents has the patient had during the current shift? 0 TRANSFERS: BED, CHAIR, WHEELCHAIR: Patient requires more than one helper and/or the use of a mechanical lift is utilized TRANSFERS: BED, CHAIR, WHEELCHAIR - SCORE: 1-DEP TRANSFERS: TOILET: Patient requires more than one helper and/or the use of a mechanical lift is utilized TRANSFERS: TOILET - SCORE: 1-DEP TRANSFERS: SHOWER: Activity did not occur on this shift TRANSFERS: SHOWER - SCORE: 0-UNK TRANSFERS: TUB: Activity did not occur on this shift TRANSFERS: TUB - SCORE: 0-UNK LOCOMOTION: WALK: Activity did not occur on this shift LOCOMOTION: WALK - SCORE: 0-UNK LOCOMOTION: WHEELCHAIR: Activity did not occur on this shift LOCOMOTION: WHEELCHAIR - SCORE: 0-UNK COMPREHENSION: COMPREHENSION: TYPE: Both COMPREHENSION - STEP 1: Does the patient require help from a person or device, or need extra time to understand complex and a bstract ideas (such as current events, finances, discharge planning, medical issues, relationships, e tc)? No. COMPREHENSION - STEP 2: Does the patient need extra time, require an assistive device (such as glasses for visual comprehensi on or a hearing aid for auditory comprehension) or does s/he have mild difficulty understanding compl ex and abstract information? Yes. COMPREHENSION - SCORE: 6-SILVESTRE EXPRESSION EXPRESSION: TYPE: Both EXPRESSION - STEP 1: Does the patient require help from a person or device, or need extra time expressing complex and abst ract ideas (such as current events, finances, discharge planning, medical issues, relationships, etc) ? No. EXPRESSION - STEP 2: Does the patient need extra time, require an assistive device (such as augmentive communication syste m or a communication board), OR does s/he have mild difficulty expressing complex and abstract ideas (including mild dysarthria or mild word-find problems)? Yes. EXPRESSION - SCORE: 6-SILVESTRE SOCIAL INTERACTION: SOCIAL INTERACTION - STEP 1: Does the patient require a helper to interact with others in social and therapeutic situations? No. SOCIAL INTERACTION - STEP 2: Does the patient need extra time in social situations, OR does s/he interact with staff, other patien ts, and family members ONLY in structured environments, OR does s/he require medication for social in teraction? Yes, patient needs extra time SOCIAL INTERACTION - SCORE: 6-SILVESTRE PROBLEM SOLVING: PROBLEM SOLVING - STEP 1: Does the patient need help from a person or device, or need extra time to solve complex problems such as managing a checking account or confronting interpersonal problems? No. PROBLEM SOLVING - STEP 2: Does the patient require extra time to make decisions or solve problems, OR does s/he have slight dif ficulty reading, initiating, or self-correcting in unfamiliar situations? Yes, patient needs extra ti me. PROBLEM SOLVING - SCORE: 6-SILVESTRE MEMORY: MEMORY - STEP 1: Does the patient need help from a person or device, or need extra time to remember frequently encount ered people, daily routines, and executing requests? No. MEMORY - STEP 2: Does the patient have slight difficulty recognizing frequently encountered people, daily routines, or executing requests without the need for repetition or using self-initiated or environmental cues to remember? Yes. MEMORY - SCORE: 6-SILVESTRE SIGNATURE PANEL: The following modified sections: Eating - Score, Grooming - Score, Bathing - Score, Dressing - Upper Body - Score, Dressing - Lower Body - Score, Toileting - Score, Bladder Management - Score, Bowel Man agement - Score, Transfers: Bed, Chair, Wheelchair - Score, Transfers: Toilet - Score, Transfers: Melissa wer - Score, Transfers: Tub - Score, Locomotion: Walk - Score, Locomotion: Wheelchair - Score, Compre hension - Score, Expression - Score, Social Interaction - Score, Problem Solving - Score, Memory - Sc ore were [electronically] signed by Penelope Medrano C.N.A. on ThuAug 15 2018 13:26:12 T-0500 (Cent[place] Daylight Time)
[2018-08-15] MEDS: ACETAMINOPHEN 500 MG TAB PO PRN (18:59)
[2018-08-15] MEDS: HYDROCORTISONE 1 % CREAM 30GM TOP PRN (21:27)
[2018-08-15] MEDS: POLYVINYL ALCOHOL 1.4% 15 ML EACH EYE PRN (21:28)
[2018-08-15] MEDS: ATORVASTATIN 10 MG TAB PO SCH (21:29)
[2018-08-15] MEDS: TAMSULOSIN 0.4 MG SR CAP PO SCH (21:29)
[2018-08-15] MEDS: MELATONIN 3 MG TABLET PO PRN (21:29)
[2018-08-16] MEDS: POLYVINYL ALCOHOL 1.4% 15 ML EACH EYE PRN ×2 (05:39→22:27)
[2018-08-16] MEDS: VITAMIN D 5,000 UNIT CAP PO SCH (08:33)
[2018-08-16] MEDS: FLECAINIDE 100 MG TAB PO SCH ×2 (08:33→21:57)
[2018-08-16] MEDS: LISINOPRIL 5 MG TAB PO SCH (08:34)
[2018-08-16] MEDS: CYANOCOBALAMIN 1,000 MCG TAB PO SCH (08:34)
[2018-08-16] MEDS: FUROSEMIDE 20 MG TABLET PO SCH (08:35)
[2018-08-16] MEDS: APIXABAN 2.5 MG TABLET PO SCH ×2 (08:35→21:57)
[2018-08-16] MEDS: MAGNESIUM OXIDE 400 MG TAB PO SCH ×2 (08:35→21:58)
[2018-08-16] MEDS: LIDOCAINE 5% PATCH TOP SCH (10:27)
--- NOTE | 2018-08-16 11:06 | FAST ---
SHIFT START DATE/TIME: 08/16/2018 07:00 (CDT) SHIFT END DATE/TIME: 08/16/2018 19:00 (CDT) NAME PRICE ROGERS DATE OF : 1940 DATE OF ADMISSION: 07/05/2018 18:33 (CDT) PHONE: AGE: 78 N# [id number] GENDER: Male ENCOUNTER PHYSICIAN: Dr. Abdirahman Zepeda M.D. 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 EATING: EATING - STEP 1: Does the patient require the assistance of a person or device, or need extra time when eating? Yes. EATING - STEP 2: Does the patient require the assistance of a helper? Yes. EATING - STEP 3: Does the patient perform half or more of the eating tasks? Yes. EATING - STEP 4: Does the patient need only supervision, cuing, coaxing OR help to apply an orthosis OR help to cut fo od, open containers, pour liquids, or butter bread? Yes. EATING - SCORE: 5-SUP GROOMING: Comb/brush hair Oral care Patient shaved Wash, rinse, and dry face GROOMING - STEP 1: Does the patient require the assistance of a person or device, or need extra time when grooming? Yes. GROOMING - STEP 2: Does the patient require the assistance of a helper? Yes. GROOMING - STEP 3: How much assistance does the patient require from the helper? Cuing, coaxing, instructions, or encour agement for completion of grooming GROOMING - SCORE: 5-SUP BATHING: Activity did not occur on this shift BATHING - SCORE: 0-UNK DRESSING - UPPER BODY: Activity did not occur on this shift ARTICLES SCORE Total number of steps: 0 DRESSING - UPPER BODY - SCORE: 0-UNK DRESSING - LOWER BODY: Activity did not occur on this shift ARTICLES SCORE Total number of steps: 0 DRESSING - LOWER BODY - SCORE: 0-UNK TOILETING: TOILETING - STEP 1: Does the patient require the assistance of a person or device, or need extra time with toileting? Yes . TOILETING - STEP 2: Does the patient require the assistance of a helper? Yes. TOILETING - STEP 3: How much assistance does the patient require from the helper? Hands-on assistance from the helper TOILETING - STEP 4: Of the 3 tasks: 1) Adjusting clothing prior to use, 2) Cleansing of perineal area, 3) Adjusting clot merissa after use; How many tasks does the patient perform WITHOUT assistance of the helper? No tasks; andre garcía performs all three tasks TOILETING - SCORE: 1-DEP BLADDER MANAGEMENT: BLADDER MANAGEMENT - STEP 1: Does the patient control the bladder completely and intentionally without equipment or devices or med ications, and is always continent? No. BLADDER MANAGEMENT - STEP 2: Does the patient require the assistance of a helper? No, patient requires and independently uses an a ssistive device, such as a urinal, bedpan, bedside commode, catheter, absorbent pad, or collecting de vice BLADDER MANAGEMENT - SCORE: 6-SILVESTRE BOWEL MANAGEMENT: BOWEL MANAGEMENT - STEP 1: Does the patient control bowels completely and intentionally without equipment devices or medications AND is always continent? No. BOWEL MANAGEMENT - STEP 2: Does the patient require the assistance of a helper? No, patient requires and manages independently a n assistive device such as a bedpan, bedside commode, absorbent pad, incontinent device, or collectin g device BOWEL MANAGEMENT - SCORE: 6-SILVESTRE TRANSFERS: BED, CHAIR, WHEELCHAIR: Patient requires more than one helper and/or the use of a mechanical lift is utilized TRANSFERS: BED, CHAIR, WHEELCHAIR - SCORE: 1-DEP TRANSFERS: TOILET: Patient requires more than one helper and/or the use of a mechanical lift is utilized TRANSFERS: TOILET - SCORE: 1-DEP TRANSFERS: SHOWER: Activity did not occur on this shift TRANSFERS: SHOWER - SCORE: 0-UNK TRANSFERS: TUB: Activity did not occur on this shift TRANSFERS: TUB - SCORE: 0-UNK LOCOMOTION: WALK: Activity did not occur on this shift LOCOMOTION: WALK - SCORE: 0-UNK LOCOMOTION: WHEELCHAIR: Activity did not occur on this shift LOCOMOTION: WHEELCHAIR - SCORE: 0-UNK COMPREHENSION: COMPREHENSION: TYPE: Both COMPREHENSION - STEP 1: Does the patient require help from a person or device, or need extra time to understand complex and a bstract ideas (such as current events, finances, discharge planning, medical issues, relationships, e tc)? Yes. COMPREHENSION - STEP 2: Does the patient require help to understand questions or statements about basic needs or ideas (such as hunger, thirst, sleep, safety, daily schedule, room location, or discomfort) half or more of the t aneudy? No. COMPREHENSION - STEP 3: How often does the patient need help to understand directions and conversation about basic needs? 25% - 49% of the time COMPREHENSION - SCORE: 3-MOD EXPRESSION EXPRESSION: TYPE: Both EXPRESSION - STEP 1: Does the patient require help from a person or device, or need extra time expressing complex and abst ract ideas (such as current events, finances, discharge planning, medical issues, relationships, etc) ? Yes. EXPRESSION - STEP 2: Does the patient require help to express basic necessities or ideas (such as hunger, thirst, sleep, s afety, daily schedule, room location, or discomfort) half or more of the time? No. EXPRESSION - STEP 3: How often does the patient need help to express directions and conversation about basic needs? Less t smiley 10% of the time EXPRESSION - SCORE: 5-SUP SOCIAL INTERACTION: SOCIAL INTERACTION - STEP 1: Does the patient require a helper to interact with others in social and therapeutic situations? Yes. SOCIAL INTERACTION - STEP 2: Does the patient interact appropriately half or more of the time? Yes. SOCIAL INTERACTION - STEP 3: How often does the patient need help to interact appropriately? Less than 10% of the time SOCIAL INTERACTION - SCORE: 5-SUP PROBLEM SOLVING: PROBLEM SOLVING - STEP 1: Does the patient need help from a person or device, or need extra time to solve complex problems such as managing a checking account or confronting interpersonal problems? Yes. PROBLEM SOLVING - STEP 2: Does the patient solve basic routine problems half or more of the time? Yes. PROBLEM SOLVING - STEP 3: How often does the patient need help to solve basic routine problems? Less than 10% of the time PROBLEM SOLVING - SCORE: 5-SUP MEMORY: MEMORY - STEP 1: Does the patient need help from a person or device, or need extra time to remember frequently encount ered people, daily routines, and executing requests? Yes. MEMORY - STEP 2: How often does the patient need help to remember frequently encountered people, daily routines, and e xecuting requests? Less than 10% of the time MEMORY - SCORE: 5-SUP SIGNATURE PANEL: The following modified sections: Eating - Score, Grooming - Score, Bathing - Score, Dressing - Upper Body - Score, Dressing - Lower Body - Score, Toileting - Score, Bladder Management - Score, Bowel Man agement - Score, Transfers: Bed, Chair, Wheelchair - Score, Transfers: Toilet - Score, Transfers: Melissa wer - Score, Transfers: Tub - Score, Locomotion: Walk - Score, Locomotion: Wheelchair - Score, Compre hension - Score, Expression - Score, Social Interaction - Score, Problem Solving - Score, Memory - Sc ore were [electronically] signed by Wilmar Arboleda on ThuAug 16 2018 11:06:05 GMT-0500 (Central Daylight Time)
[2018-08-16] MEDS: VALSARTAN 80 MG TAB PO SCH (13:12)
[2018-08-16] MEDS: ONDANSETRON 4 MG (ODT) TAB PO PRN (13:13)
[2018-08-16] MEDS: ACETAMINOPHEN 500 MG TAB PO PRN (15:14)
--- NOTE | 2018-08-16 16:00 | FAST ---
ENCOUNTER DATE AND TIME: 08/16/2018 08:00 (CDT) NAME PRICE ROGERS DATE OF : 1940 DATE OF ADMISSION: 07/05/2018 18:33 (CDT) PHONE: AGE: 78 SSN# [id number] GENDER: Male ENCOUNTER PHYSICIAN: Dr. Abdirahman Zepeda M.D. 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 EATING: Activity did not occur on this shift EATING - SCORE: 0-UNK GROOMING: Activity did not occur on this shift GROOMING - SCORE: 0-UNK BATHING: Activity did not occur on this shift BATHING - SCORE: 0-UNK DRESSING - UPPER BODY: Activity did not occur on this shift Patient is not dressing in public clothing ARTICLES SCORE Total number of steps: 0 DRESSING - UPPER BODY - SCORE: 0-UNK DRESSING - LOWER BODY: Activity did not occur on this shift Patient is not dressing in public clothing ARTICLES SCORE Total number of steps: 0 DRESSING - LOWER BODY - SCORE: 0-UNK TOILETING: Activity did not occur on this shift TOILETING - SCORE: 0-UNK BLADDER MANAGEMENT: Activity did not occur on this shift BLADDER MANAGEMENT - SCORE: 7-IND BOWEL MANAGEMENT: Activity did not occur on this shift BOWEL MANAGEMENT - SCORE: 7-IND TRANSFERS: BED, CHAIR, WHEELCHAIR: TRANSFERS: BED, CHAIR, WHEELCHAIR - STEP 1: Does the patient require assistance of a person or device, or need extra time with bed, chair, or whe elchair transfers? Yes. TRANSFERS: BED, CHAIR, WHEELCHAIR - STEP 2: Does the patient require the assistance of a helper? Yes. TRANSFERS: BED, CHAIR, WHEELCHAIR - STEP 3: How much assistance does the patient require from the helper? Steadying/guiding assistance TRANSFERS: BED, CHAIR, WHEELCHAIR - SCORE: 4-MIN TRANSFERS: TOILET: Activity did not occur on this shift TRANSFERS: TOILET - SCORE: 0-UNK TRANSFERS: SHOWER: Activity did not occur on this shift TRANSFERS: SHOWER - SCORE: 0-UNK TRANSFERS: TUB: Activity did not occur on this shift TRANSFERS: TUB - SCORE: 0-UNK LOCOMOTION: WALK: LOCOMOTION: WALK - STEP 1: Does the patient need help from a person or device, or need extra time to walk 150 feet? Yes. LOCOMOTION: WALK - STEP 2: How much assistance does the patient require to walk a minimum of 150 feet? Patient walks less than 1 50 feet - but more than 50 feet - with the assistance of only one helper LOCOMOTION: WALK - SCORE: 2-MAX LOCOMOTION: WHEELCHAIR: Activity did not occur on this shift LOCOMOTION: WHEELCHAIR - SCORE: 0-UNK LOCOMOTION: STAIRS: Activity did not occur on this shift LOCOMOTION: STAIRS - SCORE: 0-UNK COMPREHENSION: COMPREHENSION - SCORE: 0-UNK EXPRESSION EXPRESSION - SCORE: 0-UNK SOCIAL INTERACTION: SOCIAL INTERACTION - SCORE: 0-UNK PROBLEM SOLVING: PROBLEM SOLVING - SCORE: 0-UNK MEMORY: MEMORY - SCORE: 0-UNK SIGNATURE PANEL: The following modified sections: Transfers: Bed, Chair, Wheelchair - Score, Transfers: Toilet - Score , Locomotion: Walk - Score, Locomotion: Wheelchair - Score, Locomotion: Stairs - Score were [electron ically] signed by Skip Phillips PT on ThuAug 16 2018 15:59:08 T-0500 (Central Daylight Time)
[2018-08-16] MEDS: GABAPENTIN 300 MG CAP PO SCH ×2 (16:45→22:27)
--- NOTE | 2018-08-16 19:20 | R.PN ---
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 SUBJECTIVE: Pt denied any Shortness of Breath. Pt denied any depression. Patient states that pain is under control. Hgb 12.4, WBC 6.8, prealbumin 20.7. Functional transfers done with total assistance. He ambulated 63' with minimum assistance using a right hand hemiwalker. Self-propelled wheelchair 150 ' with standby assistance. left hip x-ray shows no fractures. Therapeutic exercises done with contact guard assistance and multiple rest breaks. VITAL SIGNS Temperature: 98.1 F SBP/DBP: 113/65 Pulse: 67 Resp: 16 MEDICATION ALLERGIES: No Known Drug Allergies (NKDA) ENVIRONMENTAL ALLERGIES: None Known - Substance Allergies None Known - Other Allergies None Known NURSING: - Shower allowing shower - Bladder care per protocol - Skin care per protocol PRECAUTIONS: - Weight Bearing Precaution WBAT left LE ACTIVITIES OOB only with supervision THERAPIES: - Occupational Therapy Evaluate and Treat. Visual Perceptual Training. Cognitive Retraining. - Speech Therapy Cognitive Training. Memory Strategies. Expressive Language Skills. Speech Intelligibility Training. R eceptive Language Skills. Dysphagia Therapy. - Physical Therapy Evaluate and Treat. PHYSICAL EXAM - Gen Alert and awake Lying in bed No apparent distress Oriented to: person, time, and place - Skin No beakdown No abnormalities - Eyes No abnormalities - ENMT No abnormalities - Neck No abnormalities - CVS RRR - Chest No abnormalities - Resp Clear to auscultation - Abd + bowel sounds - GI nondistended Deferred - No abnormalities - Ext Mild left lower extremity edema. - MSK 0/5 strength in the left upper extremity and 2+/5 weakness in left lower extremity. - Neuro 0/5 strength in the left upper extremity and 2+/5 weakness in left lower extremity. - Psych No abnormalities ASSESSMENT: Pt. is a 78 yo Right-handed white male.On 06/25/2018 Pt. presented to [facility] with sudden on set of left-side weakness.On 06/25/2018 he was admitted to [facility] with diagnosis Right MCA. His impairment category is Stroke 01 - Left Body (Right Brain) (01.1).Pre-morbidly, Pt. was independ ent/mod-I in Self-Care, Sphincter Control, Transfers Control, Locomotion, Communication, and Social C ognition; and he had good Sphincter Control.Currently, he has deficits of Self-Care, Transfers Contro l, Locomotion, Communication, Social Cognition, Endurance, Balance, and Safety Awareness.Pt. is now r eferred to [facility] for acute in-patient rehabilitation in order to maximize patient's functional independence in activities of daily living, strength, ROM, and mobility.- Rehab Goal Patient has realistic goal of being discharged at assistance level 6-Maria E to reside at Home with Fam linda/Relatives. MDM/PLAN: - Physical Therapy Gait dysfunction - to improve, our physical therapists will perform initial evaluation of pt's statu s upon admission and devise an individualized program for Gait Training, and Wheel Chair mobility Inability to transfer - to improve, our physical therapists will perform initial evaluation of pt's status upon admission and devise an individualized program for Bed mobility Need for home safety evaluation - to improve, our physical therapists will perform initial evaluatio n of pt's status upon admission and devise an individualized program for Home Evaluation Need in caregiver upon discharge - to improve, our physical therapists will perform initial evaluati on of pt's status upon admission and devise an individualized program for Caregiver Training Edema - to improve, our physical therapists will perform initial evaluation of pt's status upon admi ssion and devise an individualized program for Elevation Training, and Lymphedema Therapy New precaution - to improve, our physical therapists will perform initial evaluation of pt's status upon admission and devise an individualized program for Patient precaution education Poor balance - to improve, our physical therapists will perform initial evaluation of pt's status up on admission and devise an individualized program for Balance Training Poor endurance - to improve, our physical therapists will perform initial evaluation of pt's status upon admission and devise an individualized program for Endurance Training Weakness - to improve, our physical therapists will perform initial evaluation of pt's status upon a dmission and devise an individualized program for Aquatic Therapy, Neuromuscular Reeducation, and Str engthening Achieving independence - to improve, our physical therapists will perform initial evaluation of pt's status upon admission and devise an individualized program for Community Reintegration Activities - Occupational Therapy ADL deficits - to improve, our occupation therapists will perform initial evaluation of pt's status upon admission and devise an individualized program for Bathing, Bed mobility, Community Reintegratio n, Cooking, Dressing, Eating, Fine Motor Skills, Grooming, Homemaking, Kitchen Mobility, Laundry, Pat ient Education, Safety Awareness, Splinting - Positioning, Transfers(Toilet, Tub, Shower), and Wheel Chair Management Cognitive deficits - to improve, our occupation therapists will perform initial evaluation of pt's s tatus upon admission and devise an individualized program for Cognition - orientation Need for skin care consultant - to improve, our occupation therapists will perform initial evaluation of pt's status upon admission and devise an individualized program for Caregiver Training Weakness - to improve, our occupation therapists will perform initial evaluation of pt's status upon admission and devise an individualized program for Aquatic Therapy, Balance, Endurance, UE ROM, and UE strengthening - Diet Type Continue Regular - Diet - Liquid Texture Continue Thin - Tube Feed Continue N/A - Bladder care per protocol - Weight Bearing Precaution WBAT left LE - Skin care per protocol - Diet - Solid Texture Continue Regular Continue Mechanical Soft (Ground) - Shower allowing shower for Dementia, TBI, Stroke, or others FUNCTIONAL STATUS: UPDATED AT WEEKLY TEAM CONFERENCE - Bladder Same accident frequency: 7-Ind - No accidents in the past 7 days - Bowel Same accident frequency: 7-Ind - No accidents in the past 7 days - Walking Same score based on distance walked: 0(N/A) - Wheelchair Same score based on distance traveled: 0(N/A) FUNCTIONAL STATUS: - Self-Care A. Eating sup B. Grooming Anil C. Bathing maxA D. Dressing - Upper Anil E. Dressing - Lower maxA F. Toileting maxA - Sphincter Control G: Bladder control Ind H: Bowel control Ind - Transfers Control I. Bed/Chair/Wheelchair maxA J. Toilet maxA K. Tub/Shower ADNO - Locomotion L. Walk/Wheelchair (C) Dep L. Walk/Wheelchair (W) Dep M. Stairs ADNO - Communication N. Comprehension (B) Anil O. Expression (B) Anil - Social Cognition P. Social Interaction Anil Q. Problem Solving Anil R. Memory Anil - Endurance Fair - Balance Poor - Safety Awareness Fair CURRENT FUNC. DEFICITS: Self-Care, Transfers Control, Locomotion, Communication, Social Cognition, Endurance, Balance, and Sa fety Awareness SIGNATURE PANEL: (CDT)
[2018-08-16] MEDS: ATORVASTATIN 10 MG TAB PO SCH (21:57)
[2018-08-16] MEDS: TAMSULOSIN 0.4 MG SR CAP PO SCH (21:57)
[2018-08-17] MEDS: LIDOCAINE 5% PATCH TOP SCH (08:28)
[2018-08-17] MEDS: FLECAINIDE 100 MG TAB PO SCH ×2 (08:28→19:57)
[2018-08-17] MEDS: CYANOCOBALAMIN 1,000 MCG TAB PO SCH (08:29)
[2018-08-17] MEDS: GABAPENTIN 300 MG CAP PO SCH ×3 (08:29→19:58)
[2018-08-17] MEDS: FUROSEMIDE 20 MG TABLET PO SCH (08:29)
[2018-08-17] MEDS: APIXABAN 2.5 MG TABLET PO SCH ×2 (08:29→19:57)
[2018-08-17] MEDS: VITAMIN D 5,000 UNIT CAP PO SCH (08:29)
[2018-08-17] MEDS: LISINOPRIL 5 MG TAB PO SCH (08:30)
[2018-08-17] MEDS: MAGNESIUM OXIDE 400 MG TAB PO SCH ×2 (08:30→20:05)
[2018-08-17] MEDS: VALSARTAN 80 MG TAB PO SCH (12:00)
--- NOTE | 2018-08-17 13:47 | FAST ---
SHIFT START DATE/TIME: 08/17/2018 07:00 (CDT) SHIFT END DATE/TIME: 08/17/2018 19:00 (CDT) NAME PRICE ROGERS DATE OF : 1940 DATE OF ADMISSION: 07/05/2018 18:33 (CDT) PHONE: AGE: 78 N# [id number] GENDER: Male ENCOUNTER PHYSICIAN: Dr. Abdirahman Zepeda M.D. 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 EATING: EATING - STEP 1: Does the patient require the assistance of a person or device, or need extra time when eating? Yes. EATING - STEP 2: Does the patient require the assistance of a helper? Yes. EATING - STEP 3: Does the patient perform half or more of the eating tasks? Yes. EATING - STEP 4: Does the patient need only supervision, cuing, coaxing OR help to apply an orthosis OR help to cut fo od, open containers, pour liquids, or butter bread? Yes. EATING - SCORE: 5-SUP GROOMING: Comb/brush hair Oral care Patient shaved Wash, rinse, and dry face Wash, rinse, and dry hands GROOMING - STEP 1: Does the patient require the assistance of a person or device, or need extra time when grooming? Yes. GROOMING - STEP 2: Does the patient require the assistance of a helper? No. The patient only requires an assistive devic e, OR takes more than reasonable time to groom, OR there is a concern for safety as the patient groom s GROOMING - SCORE: 6-SILVESTRE BATHING: Activity did not occur on this shift BATHING - SCORE: 0-UNK DRESSING - UPPER BODY: Activity did not occur on this shift ARTICLES SCORE Total number of steps: 0 DRESSING - UPPER BODY - SCORE: 0-UNK DRESSING - LOWER BODY: Activity did not occur on this shift ARTICLES SCORE Total number of steps: 0 DRESSING - LOWER BODY - SCORE: 0-UNK TOILETING: TOILETING - STEP 1: Does the patient require the assistance of a person or device, or need extra time with toileting? Yes . TOILETING - STEP 2: Does the patient require the assistance of a helper? Yes. TOILETING - STEP 3: How much assistance does the patient require from the helper? Hands-on assistance from the helper TOILETING - STEP 4: Of the 3 tasks: 1) Adjusting clothing prior to use, 2) Cleansing of perineal area, 3) Adjusting clot merissa after use; How many tasks does the patient perform WITHOUT assistance of the helper? No tasks; h elper performs all three tasks TOILETING - SCORE: 1-DEP BLADDER MANAGEMENT: BLADDER MANAGEMENT - STEP 1: Does the patient control the bladder completely and intentionally without equipment or devices or med ications, and is always continent? No. BLADDER MANAGEMENT - STEP 2: Does the patient require the assistance of a helper? Yes. BLADDER MANAGEMENT - STEP 3: How much assistance does the patient require from the helper? Only supervision, stand-by, cuing, or c oaxing BLADDER MANAGEMENT - SCORE: 5-SUP BOWEL MANAGEMENT: Activity did not occur on this shift BOWEL MANAGEMENT - SCORE: 7-IND TRANSFERS: BED, CHAIR, WHEELCHAIR: Patient requires more than one helper and/or the use of a mechanical lift is utilized TRANSFERS: BED, CHAIR, WHEELCHAIR - SCORE: 1-DEP TRANSFERS: TOILET: Patient requires more than one helper and/or the use of a mechanical lift is utilized TRANSFERS: TOILET - SCORE: 1-DEP TRANSFERS: SHOWER: Activity did not occur on this shift TRANSFERS: SHOWER - SCORE: 0-UNK TRANSFERS: TUB: Activity did not occur on this shift TRANSFERS: TUB - SCORE: 0-UNK LOCOMOTION: WALK: Activity did not occur on this shift LOCOMOTION: WALK - SCORE: 0-UNK LOCOMOTION: WHEELCHAIR: Activity did not occur on this shift LOCOMOTION: WHEELCHAIR - SCORE: 0-UNK COMPREHENSION: COMPREHENSION: TYPE: Both COMPREHENSION - STEP 1: Does the patient require help from a person or device, or need extra time to understand complex and a bstract ideas (such as current events, finances, discharge planning, medical issues, relationships, e tc)? No. COMPREHENSION - STEP 2: Does the patient need extra time, require an assistive device (such as glasses for visual comprehensi on or a hearing aid for auditory comprehension) or does s/he have mild difficulty understanding compl ex and abstract information? No. COMPREHENSION - SCORE: 7-IND EXPRESSION EXPRESSION: TYPE: Both EXPRESSION - STEP 1: Does the patient require help from a person or device, or need extra time expressing complex and abst ract ideas (such as current events, finances, discharge planning, medical issues, relationships, etc) ? No. EXPRESSION - STEP 2: Does the patient need extra time, require an assistive device (such as augmentive communication syste m or a communication board), OR does s/he have mild difficulty expressing complex and abstract ideas (including mild dysarthria or mild word-find problems)? Yes. EXPRESSION - SCORE: 6-SILVESTRE SOCIAL INTERACTION: SOCIAL INTERACTION - STEP 1: Does the patient require a helper to interact with others in social and therapeutic situations? No. SOCIAL INTERACTION - STEP 2: Does the patient need extra time in social situations, OR does s/he interact with staff, other patien ts, and family members ONLY in structured environments, OR does s/he require medication for social in teraction? Yes, patient needs extra time SOCIAL INTERACTION - SCORE: 6-SILVESTRE PROBLEM SOLVING: PROBLEM SOLVING - STEP 1: Does the patient need help from a person or device, or need extra time to solve complex problems such as managing a checking account or confronting interpersonal problems? No. PROBLEM SOLVING - STEP 2: Does the patient require extra time to make decisions or solve problems, OR does s/he have slight dif ficulty reading, initiating, or self-correcting in unfamiliar situations? Yes, patient needs extra ti me. PROBLEM SOLVING - SCORE: 6-SILVESTRE MEMORY: MEMORY - STEP 1: Does the patient need help from a person or device, or need extra time to remember frequently encount ered people, daily routines, and executing requests? No. MEMORY - STEP 2: Does the patient have slight difficulty recognizing frequently encountered people, daily routines, or executing requests without the need for repetition or using self-initiated or environmental cues to remember? Yes. MEMORY - SCORE: 6-SILVESTRE SIGNATURE PANEL: The following modified sections: Eating - Score, Grooming - Score, Bathing - Score, Dressing - Upper Body - Score, Dressing - Lower Body - Score, Toileting - Score, Bladder Management - Score, Bowel Man agement - Score, Transfers: Bed, Chair, Wheelchair - Score, Transfers: Toilet - Score, Transfers: Melissa wer - Score, Transfers: Tub - Score, Locomotion: Wheelchair - Score, Locomotion: Walk - Score, Compre hension - Score, Expression - Score, Social Interaction - Score, Problem Solving - Score, Memory - Sc ore were [electronically] signed by Wilmar Arboleda on ThuAug 17 2018 13:46:39 GMT-0500 (Central Daylight Time)
--- NOTE | 2018-08-17 15:24 | FAST ---
ENCOUNTER DATE AND TIME: 08/17/2018 08:00 (CDT) NAME PRICE ROGERS DATE OF : 1940 DATE OF ADMISSION: 07/05/2018 18:33 (CDT) PHONE: AGE: 78 SSN# [id number] GENDER: Male ENCOUNTER PHYSICIAN: Dr. Abdirahman Zepeda M.D. 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 EATING: Activity did not occur on this shift EATING - SCORE: 0-UNK GROOMING: Activity did not occur on this shift GROOMING - SCORE: 0-UNK BATHING: Activity did not occur on this shift BATHING - SCORE: 0-UNK DRESSING - UPPER BODY: Activity did not occur on this shift Patient is not dressing in public clothing ARTICLES SCORE Total number of steps: 0 DRESSING - UPPER BODY - SCORE: 0-UNK DRESSING - LOWER BODY: Activity did not occur on this shift Patient is not dressing in public clothing ARTICLES SCORE Total number of steps: 0 DRESSING - LOWER BODY - SCORE: 0-UNK TOILETING: Activity did not occur on this shift TOILETING - SCORE: 0-UNK BLADDER MANAGEMENT: Activity did not occur on this shift BLADDER MANAGEMENT - SCORE: 7-IND BOWEL MANAGEMENT: Activity did not occur on this shift BOWEL MANAGEMENT - SCORE: 7-IND TRANSFERS: BED, CHAIR, WHEELCHAIR: TRANSFERS: BED, CHAIR, WHEELCHAIR - STEP 1: Does the patient require assistance of a person or device, or need extra time with bed, chair, or whe elchair transfers? Yes. TRANSFERS: BED, CHAIR, WHEELCHAIR - STEP 2: Does the patient require the assistance of a helper? Yes. TRANSFERS: BED, CHAIR, WHEELCHAIR - STEP 3: How much assistance does the patient require from the helper? Steadying/guiding assistance TRANSFERS: BED, CHAIR, WHEELCHAIR - SCORE: 4-MIN TRANSFERS: TOILET: Activity did not occur on this shift TRANSFERS: TOILET - SCORE: 0-UNK TRANSFERS: SHOWER: Activity did not occur on this shift TRANSFERS: SHOWER - SCORE: 0-UNK TRANSFERS: TUB: Activity did not occur on this shift TRANSFERS: TUB - SCORE: 0-UNK LOCOMOTION: WALK: LOCOMOTION: WALK - STEP 1: Does the patient need help from a person or device, or need extra time to walk 150 feet? Yes. LOCOMOTION: WALK - STEP 2: How much assistance does the patient require to walk a minimum of 150 feet? Patient walks less than 1 50 feet - but more than 50 feet - with the assistance of only one helper LOCOMOTION: WALK - SCORE: 2-MAX LOCOMOTION: WHEELCHAIR: LOCOMOTION: WHEELCHAIR - STEP 1: Does the patient need help to go 150 feet in a wheelchair? Yes. LOCOMOTION: WHEELCHAIR - STEP 2: How much assistance does the patient need from the helper? Only incidental help such as around corner s or over thresholds LOCOMOTION: WHEELCHAIR - SCORE: 4-MIN LOCOMOTION: STAIRS: Activity did not occur on this shift LOCOMOTION: STAIRS - SCORE: 0-UNK COMPREHENSION: COMPREHENSION - SCORE: 0-UNK EXPRESSION EXPRESSION - SCORE: 0-UNK SOCIAL INTERACTION: SOCIAL INTERACTION - SCORE: 0-UNK PROBLEM SOLVING: PROBLEM SOLVING - SCORE: 0-UNK MEMORY: MEMORY - SCORE: 0-UNK SIGNATURE PANEL: The following modified sections: Transfers: Bed, Chair, Wheelchair - Score, Transfers: Toilet - Score , Locomotion: Walk - Score, Locomotion: Wheelchair - Score, Locomotion: Stairs - Score were [electron [email or web address]] signed by Skip Phillips PT on ThuAug 17 2018 15:23:26 T-0500 (Central Daylight Time)
[2018-08-17] MEDS: ONDANSETRON 4 MG (ODT) TAB PO PRN (15:32)
--- NOTE | 2018-08-17 19:13 | R.PN ---
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 SUBJECTIVE: Pt denied any Shortness of Breath. Pt denied any depression. Patient states that pain is under control. Hgb 12.4, WBC 6.8, prealbumin 20.7. Functional transfers done with total assistance. He ambulated 174' total with contact guard assistance using a right hand hemiwalker. Self-propelled w heelchair 150' with standby assistance. left hip x-ray shows no fractures. Therapeutic exercises done with contact guard assistance and multiple rest breaks. VITAL SIGNS Temperature: 98.1 F SBP/DBP: 113/73 Pulse: 50 Resp: 14 MEDICATION ALLERGIES: No Known Drug Allergies (NKDA) ENVIRONMENTAL ALLERGIES: None Known - Substance Allergies None Known - Other Allergies None Known NURSING: - Shower allowing shower - Bladder care per protocol - Skin care per protocol PRECAUTIONS: - Weight Bearing Precaution WBAT left LE ACTIVITIES OOB only with supervision THERAPIES: - Occupational Therapy Evaluate and Treat. Visual Perceptual Training. Cognitive Retraining. - Speech Therapy Cognitive Training. Memory Strategies. Expressive Language Skills. Speech Intelligibility Training. R eceptive Language Skills. Dysphagia Therapy. - Physical Therapy Evaluate and Treat. PHYSICAL EXAM - Gen Alert and awake Lying in bed No apparent distress Oriented to: person, time, and place - Skin No beakdown No abnormalities - Eyes No abnormalities - ENMT No abnormalities - Neck No abnormalities - CVS RRR - Chest No abnormalities - Resp Clear to auscultation - Abd + bowel sounds - GI nondistended Deferred - No abnormalities - Ext Mild left lower extremity edema. - MSK 0/5 strength in the left upper extremity and 2+/5 weakness in left lower extremity. - Neuro 0/5 strength in the left upper extremity and 2+/5 weakness in left lower extremity. - Psych No abnormalities ASSESSMENT: Pt. is a 78 yo Right-handed white male.On 06/25/[address] Pt. [address] to [facility] with sudden on set of left-side weakness.On 06/25/2018 he was admitted to [facility] with diagnosis Right MCA. His impairment category is Stroke 01 - Left Body (Right Brain) (01.1).Pre-morbidly, Pt. was independ ent/mod-I in Self-Care, Sphincter Control, Transfers Control, Locomotion, Communication, and Social C ognition; and he had good Sphincter Control.Currently, he has deficits of Self-Care, Transfers Contro l, Locomotion, Communication, Social Cognition, Endurance, Balance, and Safety Awareness.Pt. is now r eferred to [facility] for acute in-patient rehabilitation in order to maximize patient's functional independence in activities of daily living, strength, ROM, and mobility.- Rehab Goal Patient has realistic goal of being discharged at assistance level 6-Maria E to reside at Home with Fam linda/Relatives. MDM/PLAN: - Physical Therapy Gait dysfunction - to improve, our physical therapists will perform initial evaluation of pt's statu s upon admission and devise an individualized program for Gait Training, and Wheel Chair mobility Inability to transfer - to improve, our physical therapists will perform initial evaluation of pt's status upon admission and devise an individualized program for Bed mobility Need for home safety evaluation - to improve, our physical therapists will perform initial evaluatio n of pt's status upon admission and devise an individualized program for Home Evaluation Need in caregiver upon discharge - to improve, our physical therapists will perform initial evaluati on of pt's status upon admission and devise an individualized program for Caregiver Training Edema - to improve, our physical therapists will perform initial evaluation of pt's status upon admi ssion and devise an individualized program for Elevation Training, and Lymphedema Therapy New precaution - to improve, our physical therapists will perform initial evaluation of pt's status upon admission and devise an individualized program for Patient precaution education Poor balance - to improve, our physical therapists will perform initial evaluation of pt's status up on admission and devise an individualized program for Balance Training Poor endurance - to improve, our physical therapists will perform initial evaluation of pt's status upon admission and devise an individualized program for Endurance Training Weakness - to improve, our physical therapists will perform initial evaluation of pt's status upon a dmission and devise an individualized program for Aquatic Therapy, Neuromuscular Reeducation, and Str engthening Achieving independence - to improve, our physical therapists will perform initial evaluation of pt's status upon admission and devise an individualized program for Community Reintegration Activities - Occupational Therapy ADL deficits - to improve, our occupation therapists will perform initial evaluation of pt's status upon admission and devise an individualized program for Bathing, Bed mobility, Community Reintegratio n, Cooking, Dressing, Eating, Fine Motor Skills, Grooming, Homemaking, Kitchen Mobility, Laundry, Pat ient Education, Safety Awareness, Splinting - Positioning, Transfers(Toilet, Tub, Shower), and Wheel Chair Management Cognitive deficits - to improve, our occupation therapists will perform initial evaluation of pt's s tatus upon admission and devise an individualized program for Cognition - orientation Need for managed care analyst - to improve, our occupation therapists will perform initial evaluation of pt's status upon admission and devise an individualized program for Caregiver Training Weakness - to improve, our occupation therapists will perform initial evaluation of pt's status upon admission and devise an individualized program for Aquatic Therapy, Balance, Endurance, UE ROM, and UE strengthening - Diet Type Continue Regular - Diet - Liquid Texture Continue Thin - Tube Feed Continue N/A - Bladder care per protocol - Weight Bearing Precaution WBAT left LE - Skin care per protocol - Diet - Solid Texture Continue Regular Continue Mechanical Soft (Ground) - Shower allowing shower for Dementia, TBI, Stroke, or others FUNCTIONAL STATUS: UPDATED AT WEEKLY TEAM CONFERENCE - Bladder Same accident frequency: 7-Ind - No accidents in the past 7 days - Bowel Same accident frequency: 7-Ind - No accidents in the past 7 days - Walking Same score based on distance walked: 0(N/A) - Wheelchair Same score based on distance traveled: 0(N/A) FUNCTIONAL STATUS: - Self-Care A. Eating sup B. Grooming Anil C. Bathing maxA D. Dressing - Upper Anil E. Dressing - Lower maxA F. Toileting maxA - Sphincter Control G: Bladder control Ind H: Bowel control Ind - Transfers Control I. Bed/Chair/Wheelchair maxA J. Toilet maxA K. Tub/Shower ADNO - Locomotion L. Walk/Wheelchair (C) Dep L. Walk/Wheelchair (W) Dep M. Stairs ADNO - Communication N. Comprehension (B) Anil O. Expression (B) Anil - Social Cognition P. Social Interaction Anil Q. Problem Solving Anil R. Memory Anil - Endurance Fair - Balance Poor - Safety Awareness Fair CURRENT FUNC. DEFICITS: Self-Care, Transfers Control, Locomotion, Communication, Social Cognition, Endurance, Balance, and Sa fety Awareness SIGNATURE PANEL: (CDT)
[2018-08-17] MEDS: ATORVASTATIN 10 MG TAB PO SCH (19:57)
[2018-08-17] MEDS: TAMSULOSIN 0.4 MG SR CAP PO SCH (19:58)
[2018-08-17] MEDS: MELATONIN 3 MG TABLET PO PRN (21:41)
[2018-08-18] MEDS: FUROSEMIDE 20 MG TABLET PO SCH (08:00)
[2018-08-18] MEDS: LISINOPRIL 5 MG TAB PO SCH (08:00)
[2018-08-18] MEDS: LIDOCAINE 5% PATCH TOP SCH (08:43)
[2018-08-18] MEDS: MAGNESIUM OXIDE 400 MG TAB PO SCH ×2 (08:44→21:18)
[2018-08-18] MEDS: GABAPENTIN 300 MG CAP PO SCH ×3 (08:44→21:19)
[2018-08-18] MEDS: APIXABAN 2.5 MG TABLET PO SCH ×2 (08:45→21:18)
[2018-08-18] MEDS: ONDANSETRON 4 MG (ODT) TAB PO PRN ×2 (10:00→14:54)
[2018-08-18] MEDS: CYANOCOBALAMIN 1,000 MCG TAB PO SCH (10:01)
[2018-08-18] MEDS: FLECAINIDE 100 MG TAB PO SCH ×2 (10:01→21:18)
[2018-08-18] MEDS: VITAMIN D 5,000 UNIT CAP PO SCH (10:02)
[2018-08-18] MEDS: VALSARTAN 80 MG TAB PO SCH (12:00)
[2018-08-18] MEDS ORDERED: TETRAHYDROZOLINE HCL 150 DROPS/15 ML BTL OPTH PRN (15:51)
--- NOTE | 2018-08-18 16:13 | FAST ---
ENCOUNTER DATE AND TIME: 08/18/2018 08:00 (CDT) NAME PRICE ROGERS DATE OF : 1940 DATE OF ADMISSION: 07/05/2018 18:33 (CDT) PHONE: AGE: 78 SSN# [id number] GENDER: Male ENCOUNTER PHYSICIAN: Dr. Abdirahman Zepeda M.D. 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 EATING: Activity did not occur on this shift EATING - SCORE: 0-UNK GROOMING: Activity did not occur on this shift GROOMING - SCORE: 0-UNK BATHING: Activity did not occur on this shift BATHING - SCORE: 0-UNK DRESSING - UPPER BODY: Activity did not occur on this shift Patient is not dressing in public clothing ARTICLES SCORE Total number of steps: 0 DRESSING - UPPER BODY - SCORE: 0-UNK DRESSING - LOWER BODY: Activity did not occur on this shift Patient is not dressing in public clothing ARTICLES SCORE Total number of steps: 0 DRESSING - LOWER BODY - SCORE: 0-UNK TOILETING: Activity did not occur on this shift TOILETING - SCORE: 0-UNK BLADDER MANAGEMENT: Activity did not occur on this shift BLADDER MANAGEMENT - SCORE: 7-IND BOWEL MANAGEMENT: Activity did not occur on this shift BOWEL MANAGEMENT - SCORE: 7-IND TRANSFERS: BED, CHAIR, WHEELCHAIR: TRANSFERS: BED, CHAIR, WHEELCHAIR - STEP 1: Does the patient require assistance of a person or device, or need extra time with bed, chair, or whe elchair transfers? Yes. TRANSFERS: BED, CHAIR, WHEELCHAIR - STEP 2: Does the patient require the assistance of a helper? Yes. TRANSFERS: BED, CHAIR, WHEELCHAIR - STEP 3: How much assistance does the patient require from the helper? Lifting of the patient TRANSFERS: BED, CHAIR, WHEELCHAIR - STEP 4: Does the helper lift the patient ONLY up? ONLY down? Up AND Down? ONLY up. TRANSFERS: BED, CHAIR, WHEELCHAIR - SCORE: 3-MOD TRANSFERS: TOILET: Activity did not occur on this shift TRANSFERS: TOILET - SCORE: 0-UNK TRANSFERS: SHOWER: Activity did not occur on this shift TRANSFERS: SHOWER - SCORE: 0-UNK TRANSFERS: TUB: Activity did not occur on this shift TRANSFERS: TUB - SCORE: 0-UNK LOCOMOTION: WALK: LOCOMOTION: WALK - STEP 1: Does the patient need help from a person or device, or need extra time to walk 150 feet? Yes. LOCOMOTION: WALK - STEP 2: How much assistance does the patient require to walk a minimum of 150 feet? Patient walks less than 1 50 feet - but more than 50 feet - with the assistance of only one helper LOCOMOTION: WALK - SCORE: 2-MAX LOCOMOTION: WHEELCHAIR: Activity did not occur on this shift LOCOMOTION: WHEELCHAIR - SCORE: 0-UNK LOCOMOTION: STAIRS: Activity did not occur on this shift LOCOMOTION: STAIRS - SCORE: 0-UNK COMPREHENSION: COMPREHENSION - SCORE: 0-UNK EXPRESSION EXPRESSION - SCORE: 0-UNK SOCIAL INTERACTION: SOCIAL INTERACTION - SCORE: 0-UNK PROBLEM SOLVING: PROBLEM SOLVING - SCORE: 0-UNK MEMORY: MEMORY - SCORE: 0-UNK SIGNATURE PANEL: The following modified sections: Transfers: Bed, Chair, Wheelchair - Score, Transfers: Toilet - Score , Locomotion: Walk - Score, Locomotion: Wheelchair - Score, Locomotion: Stairs - Score were [[email or web address] [email or web address]] signed by Skip Phillips, PT on ThuAug 18 2018 16:13:20 T-0500 (Central Daylight Time)
[2018-08-18] MEDS: DEXAMETHASONE EACH EYE SCH ×2 (17:00→21:19)
[2018-08-18] MEDS: POLYMYXIN B EACH EYE SCH ×2 (17:00→21:19)
[2018-08-18] MEDS: NEOMYCIN EACH EYE SCH ×2 (17:00→21:19)
[2018-08-18] MEDS: MELATONIN 3 MG TABLET PO PRN (21:18)
[2018-08-18] MEDS: ATORVASTATIN 10 MG TAB PO SCH (21:19)
--- NOTE | 2018-08-18 23:24 | R.PN ---
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 SUBJECTIVE: Pt denied any Shortness of Breath. Pt denied any depression. Patient states that pain is under control. Hgb 12.4, WBC 6.8, prealbumin 20.7. Functional transfers done with total assistance. He ambulated 164' total with contact guard assistance using a right hand hemiwalker. Self-propelled w heelchair 150' with standby assistance. left hip x-ray shows no fractures. Therapeutic exercises done with contact guard assistance and multiple rest breaks. VITAL SIGNS Temperature: 98.1 F SBP/DBP: 107/68 Pulse: 77 Resp: 14 MEDICATION ALLERGIES: No Known Drug Allergies (NKDA) ENVIRONMENTAL ALLERGIES: None Known - Substance Allergies None Known - Other Allergies None Known NURSING: - Shower allowing shower - Bladder care per protocol - Skin care per protocol PRECAUTIONS: - Weight Bearing Precaution WBAT left LE ACTIVITIES OOB only with supervision THERAPIES: - Occupational Therapy Evaluate and Treat. Visual Perceptual Training. Cognitive Retraining. - Speech Therapy Cognitive Training. Memory Strategies. Expressive Language Skills. Speech Intelligibility Training. R eceptive Language Skills. Dysphagia Therapy. - Physical Therapy Evaluate and Treat. PHYSICAL EXAM - Gen Alert and awake Lying in bed No apparent distress Oriented to: person, time, and place - Skin No beakdown No abnormalities - Eyes No abnormalities - ENMT No abnormalities - Neck No abnormalities - CVS RRR - Chest No abnormalities - Resp Clear to auscultation - Abd + bowel sounds - GI nondistended Deferred - No abnormalities - Ext Mild left lower extremity edema. - MSK 0/5 strength in the left upper extremity and 2+/5 weakness in left lower extremity. - Neuro 0/5 strength in the left upper extremity and 2+/5 weakness in left lower extremity. - Psych No abnormalities ASSESSMENT: Pt. is a 78 yo Right-handed white male.On 06/25/2018 Pt. presented to [facility] with sudden on set of left-side weakness.On 06/25/2018 he was admitted to [facility] with diagnosis Right MCA. His impairment category is Stroke 01 - Left Body (Right Brain) (01.1).Pre-morbidly, Pt. was independ ent/mod-I in Self-Care, Sphincter Control, Transfers Control, Locomotion, Communication, and Social C ognition; and he had good Sphincter Control.Currently, he has deficits of Self-Care, Transfers Contro l, Locomotion, Communication, Social Cognition, Endurance, Balance, and Safety Awareness.Pt. is now r eferred to [facility] for acute in-patient rehabilitation in order to maximize patient's functional independence in activities of daily living, strength, ROM, and mobility.- Rehab Goal Patient has realistic goal of being discharged at assistance level 6-Maria E to reside at Home with Fam linda/Relatives. MDM/PLAN: - Physical Therapy Gait dysfunction - to improve, our physical therapists will perform initial evaluation of pt's statu s upon admission and devise an individualized program for Gait Training, and Wheel Chair mobility Inability to transfer - to improve, our physical therapists will perform initial evaluation of pt's status upon admission and devise an individualized program for Bed mobility Need for home safety evaluation - to improve, our physical therapists will perform initial evaluatio n of pt's status upon admission and devise an individualized program for Home Evaluation Need in caregiver upon discharge - to improve, our physical therapists will perform initial evaluati on of pt's status upon admission and devise an individualized program for Caregiver Training Edema - to improve, our physical therapists will perform initial evaluation of pt's status upon admi ssion and devise an individualized program for Elevation Training, and Lymphedema Therapy New precaution - to improve, our physical therapists will perform initial evaluation of pt's status upon admission and devise an individualized program for Patient precaution education Poor balance - to improve, our physical therapists will perform initial evaluation of pt's status up on admission and devise an individualized program for Balance Training Poor endurance - to improve, our physical therapists will perform initial evaluation of pt's status upon admission and devise an individualized program for Endurance Training Weakness - to improve, our physical therapists will perform initial evaluation of pt's status upon a dmission and devise an individualized program for Aquatic Therapy, Neuromuscular Reeducation, and Str engthening Achieving independence - to improve, our physical therapists will perform initial evaluation of pt's status upon admission and devise an individualized program for Community Reintegration Activities - Occupational Therapy ADL deficits - to improve, our occupation therapists will perform initial evaluation of pt's status upon admission and devise an individualized program for Bathing, Bed mobility, Community Reintegratio n, Cooking, Dressing, Eating, Fine Motor Skills, Grooming, Homemaking, Kitchen Mobility, Laundry, Pat ient Education, Safety Awareness, Splinting - Positioning, Transfers(Toilet, Tub, Shower), and Wheel Chair Management Cognitive deficits - to improve, our occupation therapists will perform initial evaluation of pt's s tatus upon admission and devise an individualized program for Cognition - orientation Need for prompt care rn - to improve, our occupation therapists will perform initial evaluation of pt's status upon admission and devise an individualized program for Caregiver Training Weakness - to improve, our occupation therapists will perform initial evaluation of pt's status upon admission and devise an individualized program for Aquatic Therapy, Balance, Endurance, UE ROM, and UE strengthening - Diet Type Continue Regular - Diet - Liquid Texture Continue Thin - Tube Feed Continue N/A - Bladder care per protocol - Weight Bearing Precaution WBAT left LE - Skin care per protocol - Diet - Solid Texture Continue Regular Continue Mechanical Soft (Ground) - Shower allowing shower for Dementia, TBI, Stroke, or others FUNCTIONAL STATUS: UPDATED AT WEEKLY TEAM CONFERENCE - Bladder Same accident frequency: 7-Ind - No accidents in the past 7 days - Bowel Same accident frequency: 7-Ind - No accidents in the past 7 days - Walking Same score based on distance walked: 0(N/A) - Wheelchair Same score based on distance traveled: 0(N/A) FUNCTIONAL STATUS: - Self-Care A. Eating sup B. Grooming Anil C. Bathing maxA D. Dressing - Upper Anil E. Dressing - Lower maxA F. Toileting maxA - Sphincter Control G: Bladder control Ind H: Bowel control Ind - Transfers Control I. Bed/Chair/Wheelchair maxA J. Toilet maxA K. Tub/Shower ADNO - Locomotion L. Walk/Wheelchair (C) Dep L. Walk/Wheelchair (W) Dep M. Stairs ADNO - Communication N. Comprehension (B) Anil O. Expression (B) Anil - Social Cognition P. Social Interaction Anil Q. Problem Solving Anil R. Memory Anil - Endurance Fair - Balance Poor - Safety Awareness Fair CURRENT FUNC. DEFICITS: Self-Care, Transfers Control, Locomotion, Communication, Social Cognition, Endurance, Balance, and Sa fety Awareness SIGNATURE PANEL: (CDT)
--- NOTE | 2018-08-19 02:20 | FAST ---
SHIFT START DATE/TIME: 08/18/2018 19:00 (CDT) SHIFT END DATE/TIME: 08/19/2018 07:00 (CDT) NAME PRICE ROGERS DATE OF : 1940 DATE OF ADMISSION: 07/05/2018 18:33 (CDT) PHONE: AGE: 78 N# [id number] GENDER: Male ENCOUNTER PHYSICIAN: Dr. Abdirahman Zepeda M.D. 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 EATING: Activity did not occur on this shift EATING - SCORE: 0-UNK GROOMING: Activity did not occur on this shift GROOMING - SCORE: 0-UNK BATHING: Activity did not occur on this shift BATHING - SCORE: 0-UNK DRESSING - UPPER BODY: Patient is not dressing in public clothing ARTICLES SCORE Total number of steps: 0 DRESSING - UPPER BODY - SCORE: 0-UNK DRESSING - LOWER BODY: Patient is not dressing in public clothing ARTICLES SCORE Total number of steps: 0 DRESSING - LOWER BODY - SCORE: 0-UNK TOILETING: TOILETING - STEP 1: Does the patient require the assistance of a person or device, or need extra time with toileting? Yes . TOILETING - STEP 2: Does the patient require the assistance of a helper? Yes. TOILETING - STEP 3: How much assistance does the patient require from the helper? Hands-on assistance from the helper TOILETING - STEP 4: Of the 3 tasks: 1) Adjusting clothing prior to use, 2) Cleansing of perineal area, 3) Adjusting clot merissa after use; How many tasks does the patient perform WITHOUT assistance of the helper? No tasks; h raquel performs all three tasks TOILETING - SCORE: 1-DEP BLADDER MANAGEMENT: [place] removes incontinent device (Depends, pull ups, etc.); cleans the patient after accident / inco ntinent episode; and, applies new incontinent device. BLADDER MANAGEMENT - SCORE: 1-DEP BOWEL MANAGEMENT: BOWEL MANAGEMENT - STEP 1: Does the patient control bowels completely and intentionally without equipment devices or medications AND is always continent? No. BOWEL MANAGEMENT - STEP 2: Does the patient require the assistance of a helper? No, patient requires medication for control such as stool softeners, suppositories, laxatives, enemas, or OTC medications BOWEL MANAGEMENT - SCORE: 6-SILVESTRE TRANSFERS: BED, CHAIR, WHEELCHAIR: Activity did not occur on this shift TRANSFERS: BED, CHAIR, WHEELCHAIR - SCORE: 0-UNK TRANSFERS: TOILET: Activity did not occur on this shift TRANSFERS: TOILET - SCORE: 0-UNK TRANSFERS: SHOWER: Activity did not occur on this shift TRANSFERS: SHOWER - SCORE: 0-UNK TRANSFERS: TUB: Activity did not occur on this shift TRANSFERS: TUB - SCORE: 0-UNK LOCOMOTION: WALK: Activity did not occur on this shift LOCOMOTION: WALK - SCORE: 0-UNK LOCOMOTION: WHEELCHAIR: Activity did not occur on this shift LOCOMOTION: WHEELCHAIR - SCORE: 0-UNK COMPREHENSION: COMPREHENSION: TYPE: Both COMPREHENSION - STEP 1: Does the patient require help from a person or device, or need extra time to understand complex and a bstract ideas (such as current events, finances, discharge planning, medical issues, relationships, e tc)? No. COMPREHENSION - STEP 2: Does the patient need extra time, require an assistive device (such as glasses for visual comprehensi on or a hearing aid for auditory comprehension) or does s/he have mild difficulty understanding compl ex and abstract information? Yes. COMPREHENSION - SCORE: 6-SILVESTRE EXPRESSION EXPRESSION: TYPE: Both EXPRESSION - STEP 1: Does the patient require help from a person or device, or need extra time expressing complex and abst ract ideas (such as current events, finances, discharge planning, medical issues, relationships, etc) ? No. EXPRESSION - STEP 2: Does the patient need extra time, require an assistive device (such as augmentive communication syste m or a communication board), OR does s/he have mild difficulty expressing complex and abstract ideas (including mild dysarthria or mild word-find problems)? No. EXPRESSION - SCORE: 7-IND SOCIAL INTERACTION: SOCIAL INTERACTION - STEP 1: Does the patient require a helper to interact with others in social and therapeutic situations? No. SOCIAL INTERACTION - STEP 2: Does the patient need extra time in social situations, OR does s/he interact with staff, other patien ts, and family members ONLY in structured environments, OR does s/he require medication for social in teraction? Yes, patient needs extra time SOCIAL INTERACTION - SCORE: 6-SILVESTRE PROBLEM SOLVING: PROBLEM SOLVING - STEP 1: Does the patient need help from a person or device, or need extra time to solve complex problems such as managing a checking account or confronting interpersonal problems? Yes. PROBLEM SOLVING - STEP 2: Does the patient solve basic routine problems half or more of the time? Yes. PROBLEM SOLVING - STEP 3: How often does the patient need help to solve basic routine problems? 10%-24% of the time PROBLEM SOLVING - SCORE: 4-MIN MEMORY: MEMORY - STEP 1: Does the patient need help from a person or device, or need extra time to remember frequently encount ered people, daily routines, and executing requests? No. MEMORY - STEP 2: Does the patient have slight difficulty recognizing frequently encountered people, daily routines, or executing requests without the need for repetition or using self-initiated or environmental cues to remember? Yes. MEMORY - SCORE: 6-SILVESTRE SIGNATURE PANEL: The following modified sections: Eating - Score, Grooming - Score, Dressing - Upper Body - Score, Jitendra ssing - Lower Body - Score, Toileting - Score, Bladder Management - Score, Bowel Management - Score, Transfers: Bed, Chair, Wheelchair - Score, Transfers: Toilet - Score, Transfers: Shower - Score, Good sfers: Tub - Score, Locomotion: Walk - Score, Locomotion: Wheelchair - Score, Comprehension - Score, Expression - Score, Social Interaction - Score, Problem Solving - Score, Memory - Score were [electro nically] signed by Valerie Almanzar CNA on ThuAug 19 2018 02:19:38 GMT-0500 (Central Daylight Time)
[2018-08-19 06:25] LABS: Absolute Lymphocytes (CBC) 1.5 K/uL (0.7-4.9); Basophils % 0.5 % (0-1.3); Lymphocytes % 20.7 % (15.3-44.8); MPV 9.3 fL (7.6-11.3); RBC Red Blood Cell Count 4.05 M/uL (4.33-5.43)
[2018-08-19 06:47] LABS: Magnesium 2.3 mg/dL (1.8-2.4); Potassium 4.1 mmol/L (3.5-5.1); Prealbumin 20.8 mg/dL (20-40)
[2018-08-19] MEDS: LISINOPRIL 5 MG TAB PO SCH (08:00)
[2018-08-19] MEDS: LIDOCAINE 5% PATCH TOP SCH (08:34)
[2018-08-19] MEDS: FLECAINIDE 100 MG TAB PO SCH ×2 (08:35→20:46)
[2018-08-19] MEDS: MAGNESIUM OXIDE 400 MG TAB PO SCH ×2 (08:35→20:45)
[2018-08-19] MEDS: GABAPENTIN 300 MG CAP PO SCH ×3 (08:35→20:46)
[2018-08-19] MEDS: FUROSEMIDE 20 MG TABLET PO SCH (08:36)
[2018-08-19] MEDS: APIXABAN 2.5 MG TABLET PO SCH ×2 (08:36→20:45)
[2018-08-19] MEDS: CYANOCOBALAMIN 1,000 MCG TAB PO SCH (10:53)
[2018-08-19] MEDS: VITAMIN D 5,000 UNIT CAP PO SCH (10:53)
[2018-08-19] MEDS: CITALOPRAM 10 MG TABLET PO SCH (10:53)
[2018-08-19] MEDS: NEOMYCIN EACH EYE SCH ×4 (10:55→20:46)
[2018-08-19] MEDS: DEXAMETHASONE EACH EYE SCH ×4 (10:55→20:46)
[2018-08-19] MEDS: POLYMYXIN B EACH EYE SCH ×4 (10:55→20:46)
[2018-08-19] MEDS: ONDANSETRON 4 MG (ODT) TAB PO PRN (11:52)
[2018-08-19] MEDS: VALSARTAN 80 MG TAB PO SCH (12:00)
--- NOTE | 2018-08-19 16:32 | FAST ---
ENCOUNTER DATE AND TIME: 08/19/2018 08:00 (CDT) NAME PRICE ROGERS DATE OF : 1940 DATE OF ADMISSION: 07/05/2018 18:33 (CDT) PHONE: AGE: 78 SSN# [id number] GENDER: Male ENCOUNTER PHYSICIAN: Dr. Abdirahman Zepeda M.D. 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 EATING: Activity did not occur on this shift EATING - SCORE: 0-UNK GROOMING: Activity did not occur on this shift GROOMING - SCORE: 0-UNK BATHING: Activity did not occur on this shift BATHING - SCORE: 0-UNK DRESSING - UPPER BODY: Activity did not occur on this shift Patient is not dressing in public clothing ARTICLES SCORE Total number of steps: 0 DRESSING - UPPER BODY - SCORE: 0-UNK DRESSING - LOWER BODY: Activity did not occur on this shift Patient is not dressing in public clothing ARTICLES SCORE Total number of steps: 0 DRESSING - LOWER BODY - SCORE: 0-UNK TOILETING: Activity did not occur on this shift TOILETING - SCORE: 0-UNK BLADDER MANAGEMENT: Activity did not occur on this shift BLADDER MANAGEMENT - SCORE: 7-IND BOWEL MANAGEMENT: Activity did not occur on this shift BOWEL MANAGEMENT - SCORE: 7-IND TRANSFERS: BED, CHAIR, WHEELCHAIR: TRANSFERS: BED, CHAIR, WHEELCHAIR - STEP 1: Does the patient require assistance of a person or device, or need extra time with bed, chair, or whe elchair transfers? Yes. TRANSFERS: BED, CHAIR, WHEELCHAIR - STEP 2: Does the patient require the assistance of a helper? Yes. TRANSFERS: BED, CHAIR, WHEELCHAIR - STEP 3: How much assistance does the patient require from the helper? Steadying/guiding assistance TRANSFERS: BED, CHAIR, WHEELCHAIR - SCORE: 4-MIN TRANSFERS: TOILET: Activity did not occur on this shift TRANSFERS: TOILET - SCORE: 0-UNK TRANSFERS: SHOWER: Activity did not occur on this shift TRANSFERS: SHOWER - SCORE: 0-UNK TRANSFERS: TUB: Activity did not occur on this shift TRANSFERS: TUB - SCORE: 0-UNK LOCOMOTION: WALK: LOCOMOTION: WALK - STEP 1: Does the patient need help from a person or device, or need extra time to walk 150 feet? Yes. LOCOMOTION: WALK - STEP 2: How much assistance does the patient require to walk a minimum of 150 feet? Patient walks less than 1 50 feet - but more than 50 feet - with the assistance of only one helper LOCOMOTION: WALK - SCORE: 2-MAX LOCOMOTION: WHEELCHAIR: LOCOMOTION: WHEELCHAIR - STEP 1: Does the patient need help to go 150 feet in a wheelchair? Yes. LOCOMOTION: WHEELCHAIR - STEP 2: How much assistance does the patient need from the helper? Only supervision, cuing, or coaxing LOCOMOTION: WHEELCHAIR - SCORE: 5-SUP LOCOMOTION: STAIRS: Activity did not occur on this shift LOCOMOTION: STAIRS - SCORE: 0-UNK COMPREHENSION: COMPREHENSION - SCORE: 0-UNK EXPRESSION EXPRESSION - SCORE: 0-UNK SOCIAL INTERACTION: SOCIAL INTERACTION - SCORE: 0-UNK PROBLEM SOLVING: PROBLEM SOLVING - SCORE: 0-UNK MEMORY: MEMORY - SCORE: 0-UNK SIGNATURE PANEL: The following modified sections: Transfers: Bed, Chair, Wheelchair - Score, Transfers: Toilet - Score , Locomotion: Walk - Score, Locomotion: Wheelchair - Score, Locomotion: Stairs - Score were [electron daphney] signed by Skip Phillips PT on ThuAug 19 2018 16:31:24 T-0500 (Central Daylight Time)
[2018-08-19] MEDS: TAMSULOSIN 0.4 MG SR CAP PO SCH (20:45)
[2018-08-19] MEDS: ATORVASTATIN 10 MG TAB PO SCH (20:46)
[2018-08-19] MEDS: MELATONIN 3 MG TABLET PO PRN (21:03)
--- NOTE | 2018-08-20 04:19 | FAST ---
SHIFT START DATE/TIME: 08/19/2018 19:00 (CDT) SHIFT END DATE/TIME: 08/20/2018 07:00 (CDT) NAME PRICE ROGERS DATE OF : 1940 DATE OF ADMISSION: 07/05/2018 18:33 (CDT) PHONE: AGE: 78 N# [id number] GENDER: Male ENCOUNTER PHYSICIAN: Dr. Abdirahman Zepeda M.D. 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 EATING: Activity did not occur on this shift EATING - SCORE: 0-UNK GROOMING: Activity did not occur on this shift GROOMING - SCORE: 0-UNK BATHING: Activity did not occur on this shift BATHING - SCORE: 0-UNK DRESSING - UPPER BODY: Patient is not dressing in public clothing ARTICLES SCORE Total number of steps: 0 DRESSING - UPPER BODY - SCORE: 0-UNK DRESSING - LOWER BODY: Patient is not dressing in public clothing ARTICLES SCORE Total number of steps: 0 DRESSING - LOWER BODY - SCORE: 0-UNK TOILETING: TOILETING - STEP 1: Does the patient require the assistance of a person or device, or need extra time with toileting? Yes . TOILETING - STEP 2: Does the patient require the assistance of a helper? Yes. TOILETING - STEP 3: How much assistance does the patient require from the helper? Hands-on assistance from the helper TOILETING - STEP 4: Of the 3 tasks: 1) Adjusting clothing prior to use, 2) Cleansing of perineal area, 3) Adjusting clot merissa after use; How many tasks does the patient perform WITHOUT assistance of the helper? No tasks; h raquel performs all three tasks TOILETING - SCORE: 1-DEP BLADDER MANAGEMENT: [place] removes incontinent device (Depends, pull ups, etc.); cleans the patient after accident / inco ntinent episode; and, applies new incontinent device. BLADDER MANAGEMENT - SCORE: 1-DEP BOWEL MANAGEMENT: BOWEL MANAGEMENT - STEP 1: Does the patient control bowels completely and intentionally without equipment devices or medications AND is always continent? No. BOWEL MANAGEMENT - STEP 2: Does the patient require the assistance of a helper? No, patient requires medication for control such as stool softeners, suppositories, laxatives, enemas, or OTC medications BOWEL MANAGEMENT - SCORE: 6-SILVESTRE TRANSFERS: BED, CHAIR, WHEELCHAIR: Activity did not occur on this shift TRANSFERS: BED, CHAIR, WHEELCHAIR - SCORE: 0-UNK TRANSFERS: TOILET: Activity did not occur on this shift TRANSFERS: TOILET - SCORE: 0-UNK TRANSFERS: SHOWER: Activity did not occur on this shift TRANSFERS: SHOWER - SCORE: 0-UNK TRANSFERS: TUB: Activity did not occur on this shift TRANSFERS: TUB - SCORE: 0-UNK LOCOMOTION: WALK: Activity did not occur on this shift LOCOMOTION: WALK - SCORE: 0-UNK LOCOMOTION: WHEELCHAIR: Activity did not occur on this shift LOCOMOTION: WHEELCHAIR - SCORE: 0-UNK COMPREHENSION: COMPREHENSION: TYPE: Both COMPREHENSION - STEP 1: Does the patient require help from a person or device, or need extra time to understand complex and a bstract ideas (such as current events, finances, discharge planning, medical issues, relationships, e tc)? No. COMPREHENSION - STEP 2: Does the patient need extra time, require an assistive device (such as glasses for visual comprehensi on or a hearing aid for auditory comprehension) or does s/he have mild difficulty understanding compl ex and abstract information? Yes. COMPREHENSION - SCORE: 6-SILVESTRE EXPRESSION EXPRESSION: TYPE: Both EXPRESSION - STEP 1: Does the patient require help from a person or device, or need extra time expressing complex and abst ract ideas (such as current events, finances, discharge planning, medical issues, relationships, etc) ? No. EXPRESSION - STEP 2: Does the patient need extra time, require an assistive device (such as augmentive communication syste m or a communication board), OR does s/he have mild difficulty expressing complex and abstract ideas (including mild dysarthria or mild word-find problems)? No. EXPRESSION - SCORE: 7-IND SOCIAL INTERACTION: SOCIAL INTERACTION - STEP 1: Does the patient require a helper to interact with others in social and therapeutic situations? No. SOCIAL INTERACTION - STEP 2: Does the patient need extra time in social situations, OR does s/he interact with staff, other patien ts, and family members ONLY in structured environments, OR does s/he require medication for social in teraction? Yes, patient requires medication for social interaction SOCIAL INTERACTION - SCORE: 6-SILVESTRE PROBLEM SOLVING: PROBLEM SOLVING - STEP 1: Does the patient need help from a person or device, or need extra time to solve complex problems such as managing a checking account or confronting interpersonal problems? Yes. PROBLEM SOLVING - STEP 2: Does the patient solve basic routine problems half or more of the time? Yes. PROBLEM SOLVING - STEP 3: How often does the patient need help to solve basic routine problems? 10%-24% of the time PROBLEM SOLVING - SCORE: 4-MIN MEMORY: MEMORY - STEP 1: Does the patient need help from a person or device, or need extra time to remember frequently encount ered people, daily routines, and executing requests? No. MEMORY - STEP 2: Does the patient have slight difficulty recognizing frequently encountered people, daily routines, or executing requests without the need for repetition or using self-initiated or environmental cues to remember? Yes. MEMORY - SCORE: 6-SILVESTRE SIGNATURE PANEL: The following modified sections: Eating - Score, Grooming - Score, Dressing - Upper Body - Score, Jitendra ssing - Lower Body - Score, Toileting - Score, Bladder Management - Score, Bowel Management - Score, Transfers: Bed, Chair, Wheelchair - Score, Transfers: Toilet - Score, Transfers: Shower - Score, Good sfers: Tub - Score, Locomotion: Walk - Score, Locomotion: Wheelchair - Score, Comprehension - Score, Expression - Score, Social Interaction - Score, Problem Solving - Score, Memory - Score were [electro nically] signed by Valerie Almanzar CNA on ThuAug 20 2018 04:19:09 T-0500 (Central Daylight Time)
[2018-08-20] MEDS: POLYMYXIN B EACH EYE SCH ×5 (08:28→20:57)
[2018-08-20] MEDS: DEXAMETHASONE EACH EYE SCH ×5 (08:28→20:57)
[2018-08-20] MEDS: NEOMYCIN EACH EYE SCH ×5 (08:28→20:57)
[2018-08-20] MEDS: FLECAINIDE 100 MG TAB PO SCH ×2 (08:29→20:52)
[2018-08-20] MEDS: MAGNESIUM OXIDE 400 MG TAB PO SCH ×2 (08:30→20:53)
[2018-08-20] MEDS: FUROSEMIDE 20 MG TABLET PO SCH (08:30)
[2018-08-20] MEDS: CYANOCOBALAMIN 1,000 MCG TAB PO SCH (08:31)
[2018-08-20] MEDS: GABAPENTIN 300 MG CAP PO SCH ×3 (08:31→20:53)
[2018-08-20] MEDS: VITAMIN D 5,000 UNIT CAP PO SCH (08:31)
[2018-08-20] MEDS: CITALOPRAM 10 MG TABLET PO SCH (08:31)
[2018-08-20] MEDS: LISINOPRIL 5 MG TAB PO SCH (08:32)
[2018-08-20] MEDS: APIXABAN 2.5 MG TABLET PO SCH ×2 (08:32→20:53)
--- NOTE | 2018-08-20 08:45 | P.CNS ---
Date of Consult: 08/20/18 Reason for Consult: onychomycosis Chief Complaint: Painful elongated nails Allergies venom-honey bee Allergy (Verified 07/05/18 23:17) Hives/Rash Home Medications: Flecainide [Tambocor*] 50 mg PO Q12H 04/22/18 Olmesartan Medoxomil 40 mg PO DAILY 04/22/18 Aspirin Chewable [Aspirin Chewable*] 81 mg PO DAILY 07/05/18 Citalopram [Celexa] 20 mg PO DAILY 07/05/18 Furosemide [Lasix] 20 mg PO DAILY 07/05/18 Gabapentin 300 mg PO Q8HP PRN 07/05/18 Lisinopril [Zestril] 2.5 mg PO DAILY 07/05/18 Sennosides/Docusate Sodium [Docusate Sodium-Senna Tablet] 1 each PO BID Simvastatin 10 mg PO BEDTIME 07/05/18 - Past Medical/Surgical History Diabetic: No -: Appendicitis -: Atrial Fibrillation -: High cholesterol -: Mitral Valve Repair -: Knee surgery -: Appendectomy -: Root Canal - Family History Father Medical History: Heart disease, Hypertension Notes: - Congestive heart failure Mother Medical History: GI disease - Social History Alcohol use: Yes CD- Drugs: No Caffeine use: Yes Place of Residence: Home Review of Systems 10-point ROS is otherwise unremarkable Physical Examination Temp Pulse Resp BP Pulse Ox 97.6 F 16 L 16 136/81 95 08/19/18 20:00 08/20/18 08:32 08/19/18 20:00 08/20/18 08:32 08/19/18 20:00 General: Alert, In no apparent distress, Oriented x3 Cardiovascular: No edema, Abnormal pulses (0/4 dp and pt pulses bilateral) Capillary refill: >2 Seconds Musculoskeletal: No clubbing, No swelling, No contractures, No erythema, No tenderness, No warmth Integumentary: Other (Thickened elongated nails with subungual debris x 10 to the feet. Absent hair growth with trophic skin noted) Neurological: Abnormal sensation (diminished sensation) - Problems (1) Generalized atherosclerosis Current Visit: Yes Status: Acute (2) Tinea unguium Current Visit: Yes Status: Acute Conclusions/Impression: Debridment of nails at bedside Critical Care: No
--- NOTE | 2018-08-20 09:54 | P.RH.PN ---
Estimated Length of Stay: 50 Expected Discharge Date: 08/24/18 Discharge Disposition Plan: Home Family Support: Yes Half-Way Goal: Mobility, Transfers, Self Care Vital Signs: Last Vital Signs Temp 97.6 F 08/19/18 20:00 Pulse 16 L 08/20/18 08:32 Resp 16 08/19/18 20:00 BP 136/81 08/20/18 08:32 Pulse Ox 95 08/19/18 20:00 Laboratory: Laboratory Last Values WBC 7.3 K/uL (4.3-10.9) 08/19/18 06:03 RBC 4.05 M/uL (4.33-5.43) L 08/19/18 06:03 Hgb 12.7 g/dL (13.6-17.9) L 08/19/18 06:03 Hct 38.0 % (39.6-49.0) L 08/19/18 06:03 MCV 93.8 fL (80-100) 08/19/18 06:03 MCH 31.4 pg (27.0-35.0) 08/19/18 06:03 MCHC 33.5 g/dL (32.0-36.0) 08/19/18 06:03 RDW 14.3 % (12.1-15.2) 08/19/18 06:03 Plt Count 250 K/uL (152-406) 08/19/18 06:03 MPV 9.3 fL (7.6-11.3) 08/19/18 06:03 Neutrophils % 66.0 % (41.7-73.7) 08/19/18 06:03 Lymphocytes % 20.7 % (15.3-44.8) 08/19/18 06:03 Monocytes % 9.1 % (3.3-12.3) 08/19/18 06:03 Eosinophils % 3.7 % (0-4.4) 08/19/18 06:03 Basophils % 0.5 % (0-1.3) 08/19/18 06:03 Absolute Neutrophils 4.8 K/uL (1.8-8.0) 08/19/18 06:03 Absolute Lymphocytes 1.5 K/uL (0.7-4.9) 08/19/18 06:03 Absolute Monocytes 0.7 K/uL (0.1-1.3) 08/19/18 06:03 Absolute Eosinophils 0.3 K/uL (0-0.5) 08/19/18 06:03 Absolute Basophils 0.0 K/uL (0-0.5) 08/19/18 06:03 Sodium 143 mmol/L (136-145) 08/19/18 06:03 Potassium 4.1 mmol/L (3.5-5.1) 08/19/18 06:03 Chloride 106 mmol/L (98-107) 08/19/18 06:03 Carbon Dioxide 31 mmol/L (21-32) 08/19/18 06:03 BUN 24 mg/dL (7-18) H 08/19/18 06:03 Creatinine 0.99 mg/dL (0.55-1.3) 08/19/18 06:03 Estimated GFR 73 mL/min (=/>90) L 08/19/18 06:03 Glucose 104 mg/dL (74-106) 08/19/18 06:03 Calcium 8.2 mg/dL (8.5-10.1) L 08/19/18 06:03 Magnesium 2.3 mg/dL (1.8-2.4) 08/19/18 06:03 Total Bilirubin 0.7 mg/dL (0.2-1.0) 07/06/18 06:04 Direct Bilirubin 0.2 mg/dL (0-0.2) 07/06/18 06:04 AST 25 U/L (15-37) 07/06/18 06:04 ALT 29 U/L (12-78) 07/06/18 06:04 Alkaline Phosphatase 94 U/L (45-117) 07/06/18 06:04 Serum Total Protein 7.0 g/dL (6.4-8.2) 07/06/18 06:04 Albumin 3.0 g/dL (3.4-5.0) L 08/19/18 06:03 Globulin 3.9 g/dL (2.3-3.5) H 07/06/18 06:04 Albumin/Globulin Ratio 0.8 (1.1-1.8) L 07/06/18 06:04 Prealbumin 20.8 mg/dL (20-40) 08/19/18 06:03 Urine Color Yellow 07/11/18 10:59 Urine Appearance Clear 07/11/18 10:59 Urine pH 6.0 (5.0-7.0) 07/11/18 10:59 Ur Specific [place] 1.020 (1.005-1.030) 07/11/18 10:59 Urine Ketones Negative (NEG) 07/11/18 10:59 Urine Blood Negative (NEG) 07/11/18 10:59 Urine Nitrite Negative (NEG) 07/11/18 10:59 Urine Bilirubin Negative (NEG) 07/11/18 10:59 Urine Urobilinogen 1.0 mg/dL (0.2-1.0) 07/11/18 10:59 Ur Leukocyte Esterase Trace (NEG) H 07/11/18 10:59 Urine RBC <5 /HPF (NONE SEEN) 07/11/18 10:59 Urine WBC <5 /HPF (<5) 07/11/18 10:59 Ur Squamous Epith Cells 5-10 /HPF (NONE SEEN) H 07/11/18 10:59 Urine Bacteria <20 /HPF (NONE SEEN) 07/11/18 10:59 Urine Mucus Slight /HPF (NONE SEEN) 07/07/18 00:10 Urine Culture Reflexed Not needed 07/11/18 10:59 Urine Glucose Negative (NEG) 07/11/18 10:59 Urine Total Protein Negative (NEG) 07/11/18 10:59 Weight: 213 lb 8 oz Wound Present: No Closed Surgical Incision Present: No Negative Pressure Wound Therapy Present: No Physician Update: He continues to appear somewhat depressed about his lack of return of use of his left arm. His left leg is better but he still requires maximum assistance for transfer. His labs have been reviewed and are stable. Medical Issues: DVT Prophylaxis - Eliquis 2.5mg BID Pain Issues: [place] 5/325mg Q6H PRN. Tramadol 50mg Q6H PRN. Lidocaine pacth 5% Daily Comment: Right Groin incision healed S/P thrombectomy Functional Improvement: pt has demonstrated improvement throughout this week. pt has improved his ability to coordinate stand-pivot transfers in both directions (Right and Left). pt has demonstrated ability to perform bed mobility tasks with SBA. pt is able to perform stand-pivot transfers consistently with CG using a hemiwalker with therapy staff. Nursing staff will require some training regarding proper cuing and guarding of pt. pt exhibits improved tolerance and performance of ambulation as well. Family and or caregiver training will need to be performed to ensure safe discharge once that time comes. Functional Improvement Occupational Therapy: Patient has demonstrated great progress with BADL tasks and functional trf during OT session, however, has difficulty following thru with same level of function outside of the therapy sessions, due to fatigue, and possibly, due to motivation as part of what seems to appear like increased depression. Patient does benefit from further OT to continue addressing goals, as patient has demonstrated great potential, however , due to his fluctuation of mood and participation in functional tasks away from therapy, he may require a different approach or setting before a safe d/c home. Speech Therapy Update: Pt. cont. to tolerate regular solids/thin liquids without difficulty. Pt is at MOD I for Auditory Comprehension, Social Interaction and Memory. Pt is at SUPV to MIN A for Verbal Expression and Problem Solving. Pt is learning to consistently use compensatory dysarthria strategies to increase speech intelligibility but he requires consistent verbal and visual feedback. Pt also cont. to present with mild executive functioning and visuospatial deficits. Due to cognitive and physical limitation pt will require close supv and assistance for safe d/c home. 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 Please see the Rehabilitation Signature page for all necessary signatures.
[2018-08-20] MEDS: ONDANSETRON 4 MG (ODT) TAB PO PRN (10:21)
[2018-08-20] MEDS: LIDOCAINE 5% PATCH TOP SCH (10:21)
--- NOTE | 2018-08-20 11:31 | FAST ---
ENCOUNTER DATE AND TIME: 08/20/2018 08:00 (CDT) NAME PRICE ROGESR DATE OF : 1940 DATE OF ADMISSION: 07/05/2018 18:33 (CDT) PHONE: AGE: 78 SSN# [id number] GENDER: Male ENCOUNTER PHYSICIAN: Dr. Abdirahman Zepeda M.D. 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 EATING: Activity did not occur on this shift EATING - SCORE: 0-UNK GROOMING: Comb/brush hair Wash, rinse, and dry face Wash, rinse, and dry hands GROOMING - STEP 1: Does the patient require the assistance of a person or device, or need extra time when grooming? Yes. GROOMING - STEP 2: Does the patient require the assistance of a helper? No. The patient only requires an assistive devic e, OR takes more than reasonable time to groom, OR there is a concern for safety as the patient groom s GROOMING - SCORE: 6-SILVESTRE BATHING: Abdomen Buttocks Chest Left arm Left lower leg and foot Left upper leg Perineal area Right arm Right upper leg BATHING - STEP 1: Does the patient require the assistance of a person or device, or need extra time when bathing? Yes. BATHING - STEP 2: Does the patient require the assistance of a helper? Yes. BATHING - STEP 3: How much assistance does the patient require from the helper? Only incidental help such as placement of a wash cloth in his/her hand a few times as s/he bathes OR help to bathe just one or two areas of the body BATHING - SCORE: 4-MIN DRESSING - UPPER BODY: T-shirt/pullover shirt (four steps) ARTICLES SCORE Total number of steps: 4 DRESSING - UPPER BODY - STEP 1: Does the patient require help from a person or device, or need extra time when dressing above the [address]? Yes. DRESSING - UPPER BODY - STEP 2: Does the patient require the assistance of a helper? Yes. DRESSING - UPPER BODY - STEP 3: Does the helper touch the patient while dressing? Yes. DRESSING - UPPER BODY - STEP 4: How many of the total steps does the patient complete on his/her own? 3 DRESSING - UPPER BODY - SCORE: 4-MIN DRESSING - LOWER BODY: Elastic waist pants (three steps) Slip-on shoe - Left foot (one step) Slip-on shoe - Right foot (one step) Underwear (three steps) ARTICLES SCORE Total number of steps: 8 DRESSING - LOWER BODY - STEP 1: Does the patient require help from a person or device, or need extra time when dressing below the [address]? Yes. DRESSING - LOWER BODY - STEP 2: Does the patient require the assistance of a helper? Yes. DRESSING - LOWER BODY - STEP 3: Does the helper touch the patient while dressing? Yes. DRESSING - LOWER BODY - STEP 4: How many of the total steps does the patient complete on his/her own? 5 DRESSING - LOWER BODY - SCORE: 3-MOD TOILETING: Activity did not occur on this shift TOILETING - SCORE: 0-UNK BLADDER MANAGEMENT: Activity did not occur on this shift BLADDER MANAGEMENT - SCORE: 7-IND BOWEL MANAGEMENT: Activity did not occur on this shift BOWEL MANAGEMENT - SCORE: 7-IND TRANSFERS: BED, CHAIR, WHEELCHAIR: Activity did not occur on this shift TRANSFERS: BED, CHAIR, WHEELCHAIR - SCORE: 0-UNK TRANSFERS: TOILET: Activity did not occur on this shift TRANSFERS: TOILET - SCORE: 0-UNK TRANSFERS: SHOWER: TRANSFERS: SHOWER - STEP 1: Does the patient require the assistance of a person or device, or need extra time with shower transfe rs? Yes. TRANSFERS: SHOWER - STEP 2: Does the patient require the assistance of a helper? Yes. TRANSFERS: SHOWER - STEP 3: How much assistance does the patient require from the helper? Only incidental help such as contact gu arding or steadying during shower transfers, or help to lift one leg into the shower TRANSFERS: SHOWER - SCORE: 4-MIN TRANSFERS: TUB: Activity did not occur on this shift TRANSFERS: TUB - SCORE: 0-UNK LOCOMOTION: WALK: Activity did not occur on this shift LOCOMOTION: WALK - SCORE: 0-UNK LOCOMOTION: WHEELCHAIR: Activity did not occur on this shift LOCOMOTION: WHEELCHAIR - SCORE: 0-UNK LOCOMOTION: STAIRS: Activity did not occur on this shift LOCOMOTION: STAIRS - SCORE: 0-UNK COMPREHENSION: COMPREHENSION: TYPE: Both COMPREHENSION - STEP 1: Does the patient require help from a person or device, or need extra time to understand complex and a bstract ideas (such as current events, finances, discharge planning, medical issues, relationships, e tc)? Yes. COMPREHENSION - STEP 2: Does the patient require help to understand questions or statements about basic needs or ideas (such as hunger, thirst, sleep, safety, daily schedule, room location, or discomfort) half or more of the t aneudy? No. COMPREHENSION - STEP 3: How often does the patient need help to understand directions and conversation about basic needs? 10% - 24% of the time COMPREHENSION - SCORE: 4-MIN EXPRESSION EXPRESSION: TYPE: Both EXPRESSION - STEP 1: Does the patient require help from a person or device, or need extra time expressing complex and abst ract ideas (such as current events, finances, discharge planning, medical issues, relationships, etc) ? Yes. EXPRESSION - STEP 2: Does the patient require help to express basic necessities or ideas (such as hunger, thirst, sleep, s afety, daily schedule, room location, or discomfort) half or more of the time? No. EXPRESSION - STEP 3: How often does the patient need help to express directions and conversation about basic needs? Less t smiley 10% of the time EXPRESSION - SCORE: 5-SUP SOCIAL INTERACTION: SOCIAL INTERACTION - STEP 1: Does the patient require a helper to interact with others in social and therapeutic situations? No. SOCIAL INTERACTION - STEP 2: Does the patient need extra time in social situations, OR does s/he interact with staff, other patien ts, and family members ONLY in structured environments, OR does s/he require medication for social in teraction? Yes, patient needs extra time SOCIAL INTERACTION - SCORE: 6-SILVESTRE PROBLEM SOLVING: PROBLEM SOLVING - STEP 1: Does the patient need help from a person or device, or need extra time to solve complex problems such as managing a checking account or confronting interpersonal problems? Yes. PROBLEM SOLVING - STEP 2: Does the patient solve basic routine problems half or more of the time? Yes. PROBLEM SOLVING - STEP 3: How often does the patient need help to solve basic routine problems? 25%-49% of the time PROBLEM SOLVING - SCORE: 3-MOD MEMORY: MEMORY - STEP 1: Does the patient need help from a person or device, or need extra time to remember frequently encount ered people, daily routines, and executing requests? Yes. MEMORY - STEP 2: How often does the patient need help to remember frequently encountered people, daily routines, and e xecuting requests? 10% - 24% of the time MEMORY - SCORE: 4-MIN SIGNATURE PANEL: The following modified sections: Eating - Score, Grooming - Score, Bathing - Score, Dressing - Upper Body - Score, Dressing - Lower Body - Score, Toileting - Score, Transfers: Bed, Chair, Wheelchair - S core, Transfers: Toilet - Score, Transfers: Shower - Score, Transfers: Tub - Score, Comprehension - S core, Expression - Score, Social Interaction - Score, Problem Solving - Score, Memory - Score were [e lectronically] signed by Dora Seth OT on ThuAug 20 2018 11:30:46 T-0500 ([place] Da ylight Time)
[2018-08-20] MEDS: VALSARTAN 80 MG TAB PO SCH (13:44)
--- NOTE | 2018-08-20 15:30 | FAST ---
ENCOUNTER DATE AND TIME: 08/20/2018 08:00 (CDT) NAME PRICE ROGERS DATE OF : 1940 DATE OF ADMISSION: 07/05/2018 18:33 (CDT) PHONE: AGE: 78 SSN# [id number] GENDER: Male ENCOUNTER PHYSICIAN: Dr. Abdirahman Zepeda M.D. 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 EATING: Activity did not occur on this shift EATING - SCORE: 0-UNK GROOMING: Activity did not occur on this shift GROOMING - SCORE: 0-UNK BATHING: Activity did not occur on this shift BATHING - SCORE: 0-UNK DRESSING - UPPER BODY: Activity did not occur on this shift Patient is not dressing in public clothing ARTICLES SCORE Total number of steps: 0 DRESSING - UPPER BODY - SCORE: 0-UNK DRESSING - LOWER BODY: Activity did not occur on this shift Patient is not dressing in public clothing ARTICLES SCORE Total number of steps: 0 DRESSING - LOWER BODY - SCORE: 0-UNK TOILETING: Activity did not occur on this shift TOILETING - SCORE: 0-UNK BLADDER MANAGEMENT: Activity did not occur on this shift BLADDER MANAGEMENT - SCORE: 7-IND BOWEL MANAGEMENT: Activity did not occur on this shift BOWEL MANAGEMENT - SCORE: 7-IND TRANSFERS: BED, CHAIR, WHEELCHAIR: TRANSFERS: BED, CHAIR, WHEELCHAIR - STEP 1: Does the patient require assistance of a person or device, or need extra time with bed, chair, or whe elchair transfers? Yes. TRANSFERS: BED, CHAIR, WHEELCHAIR - STEP 2: Does the patient require the assistance of a helper? Yes. TRANSFERS: BED, CHAIR, WHEELCHAIR - STEP 3: How much assistance does the patient require from the helper? Steadying/guiding assistance TRANSFERS: BED, CHAIR, WHEELCHAIR - SCORE: 4-MIN TRANSFERS: TOILET: Activity did not occur on this shift TRANSFERS: TOILET - SCORE: 0-UNK TRANSFERS: SHOWER: Activity did not occur on this shift TRANSFERS: SHOWER - SCORE: 0-UNK TRANSFERS: TUB: Activity did not occur on this shift TRANSFERS: TUB - SCORE: 0-UNK LOCOMOTION: WALK: Patient walks less than 50 feet LOCOMOTION: WALK - SCORE: 1-DEP LOCOMOTION: WHEELCHAIR: LOCOMOTION: WHEELCHAIR - STEP 1: Does the patient need help to go 150 feet in a wheelchair? Yes. LOCOMOTION: WHEELCHAIR - STEP 2: How much assistance does the patient need from the helper? Only incidental help such as around corner s or over thresholds LOCOMOTION: WHEELCHAIR - SCORE: 4-MIN LOCOMOTION: STAIRS: Activity did not occur on this shift LOCOMOTION: STAIRS - SCORE: 0-UNK COMPREHENSION: COMPREHENSION - SCORE: 0-UNK EXPRESSION EXPRESSION - SCORE: 0-UNK SOCIAL INTERACTION: SOCIAL INTERACTION - SCORE: 0-UNK PROBLEM SOLVING: PROBLEM SOLVING - SCORE: 0-UNK MEMORY: MEMORY - SCORE: 0-UNK SIGNATURE PANEL: The following modified sections: Transfers: Bed, Chair, Wheelchair - Score, Transfers: Toilet - Score , Locomotion: Walk - Score, Locomotion: Wheelchair - Score, Locomotion: Stairs - Score were [electron daphney] signed by Lorne Garcia PTA on ThuAug 20 2018 15:29:39 GMT-0500 (Central Daylight Time)
--- NOTE | 2018-08-20 16:41 | FAST ---
ENCOUNTER DATE AND TIME: 08/18/2018 08:00 (CDT) NAME PRICE ROGERS DATE OF : 1940 DATE OF ADMISSION: 07/05/2018 18:33 (CDT) PHONE: AGE: 78 SSN# [id number] GENDER: Male ENCOUNTER PHYSICIAN: Dr. Abdirahman Zepeda M.D. 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 EATING: Activity did not occur on this shift EATING - SCORE: 0-UNK GROOMING: Comb/brush hair Oral care Wash, rinse, and dry face Wash, rinse, and dry hands GROOMING - STEP 1: Does the patient require the assistance of a person or device, or need extra time when grooming? Yes. GROOMING - STEP 2: Does the patient require the assistance of a helper? No. The patient only requires an assistive devic e, OR takes more than reasonable time to groom, OR there is a concern for safety as the patient groom s GROOMING - SCORE: 6-SILVESTRE BATHING: Abdomen Buttocks Chest Left arm Left lower leg and foot Left upper leg Perineal area Right arm Right lower leg and foot Right upper leg BATHING - STEP 1: Does the patient require the assistance of a person or device, or need extra time when bathing? Yes. BATHING - STEP 2: Does the patient require the assistance of a helper? Yes. BATHING - STEP 3: How much assistance does the patient require from the helper? Only incidental help such as placement of a wash cloth in his/her hand a few times as s/he bathes OR help to bathe just one or two areas of the body BATHING - SCORE: 4-MIN DRESSING - UPPER BODY: T-shirt/pullover shirt (four steps) ARTICLES SCORE Total number of steps: 4 DRESSING - UPPER BODY - STEP 1: Does the patient require help from a person or device, or need extra time when dressing above the [address]? Yes. DRESSING - UPPER BODY - STEP 2: Does the patient require the assistance of a helper? Yes. DRESSING - UPPER BODY - STEP 3: Does the helper touch the patient while dressing? Yes. DRESSING - UPPER BODY - STEP 4: How many of the total steps does the patient complete on his/her own? 3 DRESSING - UPPER BODY - SCORE: 4-MIN DRESSING - LOWER BODY: Slip-on shoe - Left foot (one step) Slip-on shoe - Right foot (one step) Underwear (three steps) ARTICLES SCORE Total number of steps: 5 DRESSING - LOWER BODY - STEP 1: Does the patient require help from a person or device, or need extra time when dressing below the [address]? Yes. DRESSING - LOWER BODY - STEP 2: Does the patient require the assistance of a helper? Yes. DRESSING - LOWER BODY - STEP 3: Does the helper touch the patient while dressing? Yes. DRESSING - LOWER BODY - STEP 4: How many of the total steps does the patient complete on his/her own? 3 DRESSING - LOWER BODY - SCORE: 3-MOD TOILETING: Activity did not occur on this shift TOILETING - SCORE: 0-UNK BLADDER MANAGEMENT: Activity did not occur on this shift BLADDER MANAGEMENT - SCORE: 7-IND BOWEL MANAGEMENT: Activity did not occur on this shift BOWEL MANAGEMENT - SCORE: 7-IND TRANSFERS: BED, CHAIR, WHEELCHAIR: Activity did not occur on this shift TRANSFERS: BED, CHAIR, WHEELCHAIR - SCORE: 0-UNK TRANSFERS: TOILET: Activity did not occur on this shift TRANSFERS: TOILET - SCORE: 0-UNK TRANSFERS: SHOWER: TRANSFERS: SHOWER - STEP 1: Does the patient require the assistance of a person or device, or need extra time with shower transfe rs? Yes. TRANSFERS: SHOWER - STEP 2: Does the patient require the assistance of a helper? Yes. TRANSFERS: SHOWER - STEP 3: How much assistance does the patient require from the helper? Only incidental help such as contact gu arding or steadying during shower transfers, or help to lift one leg into the shower TRANSFERS: SHOWER - SCORE: 4-MIN TRANSFERS: TUB: Activity did not occur on this shift TRANSFERS: TUB - SCORE: 0-UNK LOCOMOTION: WALK: Activity did not occur on this shift LOCOMOTION: WALK - SCORE: 0-UNK LOCOMOTION: WHEELCHAIR: Activity did not occur on this shift LOCOMOTION: WHEELCHAIR - SCORE: 0-UNK LOCOMOTION: STAIRS: Activity did not occur on this shift LOCOMOTION: STAIRS - SCORE: 0-UNK COMPREHENSION: COMPREHENSION: TYPE: Both COMPREHENSION - STEP 1: Does the patient require help from a person or device, or need extra time to understand complex and a bstract ideas (such as current events, finances, discharge planning, medical issues, relationships, e tc)? No. COMPREHENSION - STEP 2: Does the patient need extra time, require an assistive device (such as glasses for visual comprehensi on or a hearing aid for auditory comprehension) or does s/he have mild difficulty understanding compl ex and abstract information? Yes. COMPREHENSION - SCORE: 6-SILVESTRE EXPRESSION EXPRESSION: TYPE: Both EXPRESSION - STEP 1: Does the patient require help from a person or device, or need extra time expressing complex and abst ract ideas (such as current events, finances, discharge planning, medical issues, relationships, etc) ? Yes. EXPRESSION - STEP 2: Does the patient require help to express basic necessities or ideas (such as hunger, thirst, sleep, s afety, daily schedule, room location, or discomfort) half or more of the time? No. EXPRESSION - STEP 3: How often does the patient need help to express directions and conversation about basic needs? Less t smiley 10% of the time EXPRESSION - SCORE: 5-SUP SOCIAL INTERACTION: SOCIAL INTERACTION - STEP 1: Does the patient require a helper to interact with others in social and therapeutic situations? No. SOCIAL INTERACTION - STEP 2: Does the patient need extra time in social situations, OR does s/he interact with staff, other patien ts, and family members ONLY in structured environments, OR does s/he require medication for social in teraction? Yes, patient requires medication for social interaction SOCIAL INTERACTION - SCORE: 6-SILVESTRE PROBLEM SOLVING: PROBLEM SOLVING - STEP 1: Does the patient need help from a person or device, or need extra time to solve complex problems such as managing a checking account or confronting interpersonal problems? Yes. PROBLEM SOLVING - STEP 2: Does the patient solve basic routine problems half or more of the time? Yes. PROBLEM SOLVING - STEP 3: How often does the patient need help to solve basic routine problems? Less than 10% of the time PROBLEM SOLVING - SCORE: 5-SUP MEMORY: MEMORY - STEP 1: Does the patient need help from a person or device, or need extra time to remember frequently encount ered people, daily routines, and executing requests? Yes. MEMORY - STEP 2: How often does the patient need help to remember frequently encountered people, daily routines, and e xecuting requests? Less than 10% of the time MEMORY - SCORE: 5-SUP SIGNATURE PANEL: The following modified sections: Eating - Score, Grooming - Score, Bathing - Score, Dressing - Upper Body - Score, Dressing - Lower Body - Score, Toileting - Score, Transfers: Bed, Chair, Wheelchair - S core, Transfers: Toilet - Score, Transfers: Shower - Score, Transfers: Tub - Score, Comprehension - S core, Expression - Score, Social Interaction - Score, Problem Solving - Score, Memory - Score were [e lectronically] signed by Shanti Moreno OT on ThuAug 20 2018 16:41:27 T-0500 ([facility] T an[facility])
[2018-08-20] MEDS: TAMSULOSIN 0.4 MG SR CAP PO SCH (20:56)
[2018-08-20] MEDS: ATORVASTATIN 10 MG TAB PO SCH (20:56)
[2018-08-20] MEDS: ACETAMINOPHEN 500 MG TAB PO PRN (20:57)
[2018-08-21] MEDS: LIDOCAINE 5% PATCH TOP SCH (07:13)
[2018-08-21] MEDS: GABAPENTIN 300 MG CAP PO SCH ×3 (08:13→20:21)
[2018-08-21] MEDS: FLECAINIDE 100 MG TAB PO SCH ×2 (08:14→20:21)
[2018-08-21] MEDS: LISINOPRIL 5 MG TAB PO SCH (08:15)
[2018-08-21] MEDS: VITAMIN D 5,000 UNIT CAP PO SCH (08:15)
[2018-08-21] MEDS: CYANOCOBALAMIN 1,000 MCG TAB PO SCH (08:16)
[2018-08-21] MEDS: FUROSEMIDE 20 MG TABLET PO SCH (08:16)
[2018-08-21] MEDS: CITALOPRAM 10 MG TABLET PO SCH (08:16)
[2018-08-21] MEDS: POLYMYXIN B EACH EYE SCH ×4 (08:17→20:23)
[2018-08-21] MEDS: NEOMYCIN EACH EYE SCH ×4 (08:17→20:23)
[2018-08-21] MEDS: APIXABAN 2.5 MG TABLET PO SCH ×2 (08:17→20:21)
[2018-08-21] MEDS: DEXAMETHASONE EACH EYE SCH ×4 (08:17→20:23)
[2018-08-21] MEDS: MAGNESIUM OXIDE 400 MG TAB PO SCH ×2 (08:17→20:22)
[2018-08-21] MEDS: ACETAMINOPHEN 500 MG TAB PO PRN (08:23)
--- NOTE | 2018-08-21 09:22 | FAST ---
SHIFT START DATE/TIME: 08/21/2018 07:00 (CDT) SHIFT END DATE/TIME: 08/21/2018 19:00 (CDT) NAME PRICE ROGERS DATE OF : 1940 DATE OF ADMISSION: 07/05/2018 18:33 (CDT) PHONE: AGE: 78 N# [id number] GENDER: Male ENCOUNTER PHYSICIAN: Dr. Abdirahman Zepeda M.D. 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 EATING: EATING - STEP 1: Does the patient require the assistance of a person or device, or need extra time when eating? Yes. EATING - STEP 2: Does the patient require the assistance of a helper? Yes. EATING - STEP 3: Does the patient perform half or more of the eating tasks? Yes. EATING - STEP 4: Does the patient need only supervision, cuing, coaxing OR help to apply an orthosis OR help to cut fo od, open containers, pour liquids, or butter bread? Yes. EATING - SCORE: 5-SUP GROOMING: Activity did not occur on this shift GROOMING - SCORE: 0-UNK BATHING: Activity did not occur on this shift BATHING - SCORE: 0-UNK DRESSING - UPPER BODY: Activity did not occur on this shift ARTICLES SCORE Total number of steps: 0 DRESSING - UPPER BODY - SCORE: 0-UNK DRESSING - LOWER BODY: Activity did not occur on this shift ARTICLES SCORE Total number of steps: 0 DRESSING - LOWER BODY - SCORE: 0-UNK TOILETING: TOILETING - STEP 1: Does the patient require the assistance of a person or device, or need extra time with toileting? Yes . TOILETING - STEP 2: Does the patient require the assistance of a helper? Yes. TOILETING - STEP 3: How much assistance does the patient require from the helper? Hands-on assistance from the helper TOILETING - STEP 4: Of the 3 tasks: 1) Adjusting clothing prior to use, 2) Cleansing of perineal area, 3) Adjusting clot merissa after use; How many tasks does the patient perform WITHOUT assistance of the helper? No tasks; h elper performs all three tasks TOILETING - SCORE: 1-DEP BLADDER MANAGEMENT: BLADDER MANAGEMENT - STEP 1: Does the patient control the bladder completely and intentionally without equipment or devices or med ications, and is always continent? No. BLADDER MANAGEMENT - STEP 2: Does the patient require the assistance of a helper? No, patient requires and independently uses an a ssistive device, such as a urinal, bedpan, bedside commode, catheter, absorbent pad, or collecting de vice BLADDER MANAGEMENT - SCORE: 6-SILVESTRE BOWEL MANAGEMENT: Activity did not occur on this shift BOWEL MANAGEMENT - SCORE: 7-IND TRANSFERS: BED, CHAIR, WHEELCHAIR: Patient requires more than one helper and/or the use of a mechanical lift is utilized TRANSFERS: BED, CHAIR, WHEELCHAIR - SCORE: 1-DEP TRANSFERS: TOILET: Patient requires more than one helper and/or the use of a mechanical lift is utilized TRANSFERS: TOILET - SCORE: 1-DEP TRANSFERS: SHOWER: Activity did not occur on this shift TRANSFERS: SHOWER - SCORE: 0-UNK TRANSFERS: TUB: Activity did not occur on this shift TRANSFERS: TUB - SCORE: 0-UNK LOCOMOTION: WALK: Activity did not occur on this shift LOCOMOTION: WALK - SCORE: 0-UNK LOCOMOTION: WHEELCHAIR: Activity did not occur on this shift LOCOMOTION: WHEELCHAIR - SCORE: 0-UNK COMPREHENSION: COMPREHENSION: TYPE: Both COMPREHENSION - STEP 1: Does the patient require help from a person or device, or need extra time to understand complex and a bstract ideas (such as current events, finances, discharge planning, medical issues, relationships, e tc)? No. COMPREHENSION - STEP 2: Does the patient need extra time, require an assistive device (such as glasses for visual comprehensi on or a hearing aid for auditory comprehension) or does s/he have mild difficulty understanding compl ex and abstract information? Yes. COMPREHENSION - SCORE: 6-SILVESTRE EXPRESSION EXPRESSION: TYPE: Both EXPRESSION - STEP 1: Does the patient require help from a person or device, or need extra time expressing complex and abst ract ideas (such as current events, finances, discharge planning, medical issues, relationships, etc) ? No. EXPRESSION - STEP 2: Does the patient need extra time, require an assistive device (such as augmentive communication syste m or a communication board), OR does s/he have mild difficulty expressing complex and abstract ideas (including mild dysarthria or mild word-find problems)? Yes. EXPRESSION - SCORE: 6-SILVESTRE SOCIAL INTERACTION: SOCIAL INTERACTION - STEP 1: Does the patient require a helper to interact with others in social and therapeutic situations? No. SOCIAL INTERACTION - STEP 2: Does the patient need extra time in social situations, OR does s/he interact with staff, other patien ts, and family members ONLY in structured environments, OR does s/he require medication for social in teraction? Yes, patient needs extra time SOCIAL INTERACTION - SCORE: 6-SILVESTRE PROBLEM SOLVING: PROBLEM SOLVING - STEP 1: Does the patient need help from a person or device, or need extra time to solve complex problems such as managing a checking account or confronting interpersonal problems? No. PROBLEM SOLVING - STEP 2: Does the patient require extra time to make decisions or solve problems, OR does s/he have slight dif ficulty reading, initiating, or self-correcting in unfamiliar situations? Yes, patient needs extra ti me. PROBLEM SOLVING - SCORE: 6-SILVESTRE MEMORY: MEMORY - STEP 1: Does the patient need help from a person or device, or need extra time to remember frequently encount ered people, daily routines, and executing requests? No. MEMORY - STEP 2: Does the patient have slight difficulty recognizing frequently encountered people, daily routines, or executing requests without the need for repetition or using self-initiated or environmental cues to remember? Yes. MEMORY - SCORE: 6-SILVESTRE SIGNATURE PANEL: The following modified sections: Eating - Score, Grooming - Score, Bathing - Score, Dressing - Upper Body - Score, Dressing - Lower Body - Score, Toileting - Score, Bladder Management - Score, Bowel Man agement - Score, Transfers: Bed, Chair, Wheelchair - Score, Transfers: Toilet - Score, Transfers: Melissa wer - Score, Transfers: Tub - Score, Locomotion: Walk - Score, Locomotion: Wheelchair - Score, Compre hension - Score, Expression - Score, Social Interaction - Score, Problem Solving - Score, Memory - Sc ore were [electronically] signed by Wilmar Arboleda on Sat Aug 21 2018 09:21:24 GMT-0500 (Central Daylight Time)
[2018-08-21] MEDS: ONDANSETRON 4 MG (ODT) TAB PO PRN ×2 (09:45→19:18)
[2018-08-21] MEDS: VALSARTAN 80 MG TAB PO SCH (12:00)
[2018-08-21] MEDS: MELATONIN 3 MG TABLET PO PRN (20:21)
[2018-08-21] MEDS: TAMSULOSIN 0.4 MG SR CAP PO SCH (20:21)
[2018-08-21] MEDS: ATORVASTATIN 10 MG TAB PO SCH (20:21)
[2018-08-22] MEDS: DEXAMETHASONE EACH EYE SCH ×4 (08:54→20:20)
[2018-08-22] MEDS: NEOMYCIN EACH EYE SCH ×4 (08:54→20:20)
[2018-08-22] MEDS: POLYMYXIN B EACH EYE SCH ×4 (08:54→20:20)
[2018-08-22] MEDS: LIDOCAINE 5% PATCH TOP SCH (08:54)
[2018-08-22] MEDS: GABAPENTIN 300 MG CAP PO SCH ×3 (08:55→20:15)
[2018-08-22] MEDS: ACETAMINOPHEN 500 MG TAB PO PRN ×2 (08:55→15:42)
[2018-08-22] MEDS: CITALOPRAM 10 MG TABLET PO SCH (08:56)
[2018-08-22] MEDS: FLECAINIDE 100 MG TAB PO SCH ×2 (08:57→20:15)
[2018-08-22] MEDS: VITAMIN D 5,000 UNIT CAP PO SCH (08:57)
[2018-08-22] MEDS: CYANOCOBALAMIN 1,000 MCG TAB PO SCH (08:57)
[2018-08-22] MEDS: APIXABAN 2.5 MG TABLET PO SCH ×2 (08:58→20:15)
[2018-08-22] MEDS: LISINOPRIL 5 MG TAB PO SCH (08:58)
[2018-08-22] MEDS: MAGNESIUM OXIDE 400 MG TAB PO SCH ×2 (08:59→20:16)
[2018-08-22] MEDS: FUROSEMIDE 20 MG TABLET PO SCH (08:59)
--- NOTE | 2018-08-22 10:02 | FAST ---
SHIFT START DATE/TIME: 08/22/2018 07:00 (CDT) SHIFT END DATE/TIME: 08/22/2018 19:00 (CDT) NAME PRICE ROGERS DATE OF : 1940 DATE OF ADMISSION: 07/05/2018 18:33 (CDT) PHONE: AGE: 78 N# [id number] GENDER: Male ENCOUNTER PHYSICIAN: Dr. Abdirahman Zepeda M.D. 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 EATING: EATING - STEP 1: Does the patient require the assistance of a person or device, or need extra time when eating? Yes. EATING - STEP 2: Does the patient require the assistance of a helper? Yes. EATING - STEP 3: Does the patient perform half or more of the eating tasks? Yes. EATING - STEP 4: Does the patient need only supervision, cuing, coaxing OR help to apply an orthosis OR help to cut fo od, open containers, pour liquids, or butter bread? Yes. EATING - SCORE: 5-SUP GROOMING: Comb/brush hair Oral care Patient shaved GROOMING - STEP 1: Does the patient require the assistance of a person or device, or need extra time when grooming? Yes. GROOMING - STEP 2: Does the patient require the assistance of a helper? Yes. GROOMING - STEP 3: How much assistance does the patient require from the helper? Cuing, coaxing, instructions, or encour agement for completion of grooming GROOMING - SCORE: 5-SUP BATHING: Activity did not occur on this shift BATHING - SCORE: 0-UNK DRESSING - UPPER BODY: Activity did not occur on this shift ARTICLES SCORE Total number of steps: 0 DRESSING - UPPER BODY - SCORE: 0-UNK DRESSING - LOWER BODY: Activity did not occur on this shift ARTICLES SCORE Total number of steps: 0 DRESSING - LOWER BODY - SCORE: 0-UNK TOILETING: TOILETING - STEP 1: Does the patient require the assistance of a person or device, or need extra time with toileting? Yes . TOILETING - STEP 2: Does the patient require the assistance of a helper? Yes. TOILETING - STEP 3: How much assistance does the patient require from the helper? Hands-on assistance from the helper TOILETING - STEP 4: Of the 3 tasks: 1) Adjusting clothing prior to use, 2) Cleansing of perineal area, 3) Adjusting clot merissa after use; How many tasks does the patient perform WITHOUT assistance of the helper? No tasks; h elkathrine performs all three tasks TOILETING - SCORE: 1-DEP BLADDER MANAGEMENT: BLADDER MANAGEMENT - STEP 1: Does the patient control the bladder completely and intentionally without equipment or devices or med ications, and is always continent? No. BLADDER MANAGEMENT - STEP 2: Does the patient require the assistance of a helper? No, patient requires and independently uses an a ssistive device, such as a urinal, bedpan, bedside commode, catheter, absorbent pad, or collecting de vice BLADDER MANAGEMENT - SCORE: 6-SILVESTRE BOWEL MANAGEMENT: Activity did not occur on this shift BOWEL MANAGEMENT - SCORE: 7-IND TRANSFERS: BED, CHAIR, WHEELCHAIR: Patient requires more than one helper and/or the use of a mechanical lift is utilized TRANSFERS: BED, CHAIR, WHEELCHAIR - SCORE: 1-DEP TRANSFERS: TOILET: Patient requires more than one helper and/or the use of a mechanical lift is utilized TRANSFERS: TOILET - SCORE: 1-DEP TRANSFERS: SHOWER: Activity did not occur on this shift TRANSFERS: SHOWER - SCORE: 0-UNK TRANSFERS: TUB: Activity did not occur on this shift TRANSFERS: TUB - SCORE: 0-UNK LOCOMOTION: WALK: Activity did not occur on this shift LOCOMOTION: WALK - SCORE: 0-UNK LOCOMOTION: WHEELCHAIR: Activity did not occur on this shift LOCOMOTION: WHEELCHAIR - SCORE: 0-UNK COMPREHENSION: COMPREHENSION: TYPE: Both COMPREHENSION - STEP 1: Does the patient require help from a person or device, or need extra time to understand complex and a bstract ideas (such as current events, finances, discharge planning, medical issues, relationships, e tc)? No. COMPREHENSION - STEP 2: Does the patient need extra time, require an assistive device (such as glasses for visual comprehensi on or a hearing aid for auditory comprehension) or does s/he have mild difficulty understanding compl ex and abstract information? Yes. COMPREHENSION - SCORE: 6-SILVESTRE EXPRESSION EXPRESSION: TYPE: Both EXPRESSION - STEP 1: Does the patient require help from a person or device, or need extra time expressing complex and abst ract ideas (such as current events, finances, discharge planning, medical issues, relationships, etc) ? No. EXPRESSION - STEP 2: Does the patient need extra time, require an assistive device (such as augmentive communication syste m or a communication board), OR does s/he have mild difficulty expressing complex and abstract ideas (including mild dysarthria or mild word-find problems)? Yes. EXPRESSION - SCORE: 6-SILVESTRE SOCIAL INTERACTION: SOCIAL INTERACTION - STEP 1: Does the patient require a helper to interact with others in social and therapeutic situations? No. SOCIAL INTERACTION - STEP 2: Does the patient need extra time in social situations, OR does s/he interact with staff, other patien ts, and family members ONLY in structured environments, OR does s/he require medication for social in teraction? Yes, patient needs extra time SOCIAL INTERACTION - SCORE: 6-SILVESTRE PROBLEM SOLVING: PROBLEM SOLVING - STEP 1: Does the patient need help from a person or device, or need extra time to solve complex problems such as managing a checking account or confronting interpersonal problems? No. PROBLEM SOLVING - STEP 2: Does the patient require extra time to make decisions or solve problems, OR does s/he have slight dif ficulty reading, initiating, or self-correcting in unfamiliar situations? Yes, patient needs extra ti me. PROBLEM SOLVING - SCORE: 6-SILVESTRE MEMORY: MEMORY - STEP 1: Does the patient need help from a person or device, or need extra time to remember frequently encount ered people, daily routines, and executing requests? No. MEMORY - STEP 2: Does the patient have slight difficulty recognizing frequently encountered people, daily routines, or executing requests without the need for repetition or using self-initiated or environmental cues to remember? Yes. MEMORY - SCORE: 6-SILVESTRE SIGNATURE PANEL: The following modified sections: Eating - Score, Grooming - Score, Bathing - Score, Dressing - Upper Body - Score, Dressing - Lower Body - Score, Toileting - Score, Bladder Management - Score, Bowel Man agement - Score, Transfers: Bed, Chair, Wheelchair - Score, Transfers: Toilet - Score, Transfers: Melissa wer - Score, Transfers: Tub - Score, Locomotion: Walk - Score, Locomotion: Wheelchair - Score, Compre hension - Score, Expression - Score, Social Interaction - Score, Problem Solving - Score, Memory - Sc ore were [electronically] signed by Wilmar Arboleda on ThuAug 22 2018 10:01:50 T-0500 (Central Daylight Time)
[2018-08-22] MEDS: ONDANSETRON 4 MG (ODT) TAB PO PRN ×2 (11:02→20:15)
[2018-08-22] MEDS ORDERED: ALPRAZOLAM 1 MG TABLET PO PRN (11:55)
[2018-08-22] MEDS: VALSARTAN 80 MG TAB PO SCH (12:34)
[2018-08-22] MEDS: TAMSULOSIN 0.4 MG SR CAP PO SCH (20:15)
[2018-08-22] MEDS: ATORVASTATIN 10 MG TAB PO SCH (20:15)
[2018-08-22] MEDS: MELATONIN 3 MG TABLET PO PRN (20:15)
--- NOTE | 2018-08-23 02:19 | FAST ---
SHIFT START DATE/TIME: 08/22/2018 19:00 (CDT) SHIFT END DATE/TIME: 08/23/2018 07:00 (CDT) NAME PRICE ROGERS DATE OF : 1940 DATE OF ADMISSION: 07/05/2018 18:33 (CDT) PHONE: AGE: 78 N# [id number] GENDER: Male ENCOUNTER PHYSICIAN: Dr. Abdirahman Zepeda M.D. 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 EATING: Activity did not occur on this shift EATING - SCORE: 0-UNK GROOMING: Activity did not occur on this shift GROOMING - SCORE: 0-UNK BATHING: Activity did not occur on this shift BATHING - SCORE: 0-UNK DRESSING - UPPER BODY: Patient is not dressing in public clothing ARTICLES SCORE Total number of steps: 0 DRESSING - UPPER BODY - SCORE: 0-UNK DRESSING - LOWER BODY: Patient is not dressing in public clothing ARTICLES SCORE Total number of steps: 0 DRESSING - LOWER BODY - SCORE: 0-UNK TOILETING: TOILETING - STEP 1: Does the patient require the assistance of a person or device, or need extra time with toileting? Yes . TOILETING - STEP 2: Does the patient require the assistance of a helper? Yes. TOILETING - STEP 3: How much assistance does the patient require from the helper? Hands-on assistance from the helper TOILETING - STEP 4: Of the 3 tasks: 1) Adjusting clothing prior to use, 2) Cleansing of perineal area, 3) Adjusting clot merissa after use; How many tasks does the patient perform WITHOUT assistance of the helper? No tasks; h raquel performs all three tasks TOILETING - SCORE: 1-DEP BLADDER MANAGEMENT: BLADDER MANAGEMENT - STEP 1: Does the patient control the bladder completely and intentionally without equipment or devices or med ications, and is always continent? No. BLADDER MANAGEMENT - STEP 2: Does the patient require the assistance of a helper? Yes. BLADDER MANAGEMENT - STEP 3: How much assistance does the patient require from the helper? Patient requires contact assistance fro m the helper BLADDER MANAGEMENT - STEP 4: How much contact assistance does the patient require from the helper? Patient requires moderate mary tance, and performs 50% to 75% of bladder management tasks - [place] positions AND holds urinal or bed benítez BLADDER MANAGEMENT - SCORE: 3-MOD BOWEL MANAGEMENT: Activity did not occur on this shift BOWEL MANAGEMENT - SCORE: 7-IND TRANSFERS: BED, CHAIR, WHEELCHAIR: Patient requires more than one helper and/or the use of a mechanical lift is utilized TRANSFERS: BED, CHAIR, WHEELCHAIR - SCORE: 1-DEP TRANSFERS: TOILET: Patient requires more than one helper and/or the use of a mechanical lift is utilized TRANSFERS: TOILET - SCORE: 1-DEP TRANSFERS: SHOWER: Activity did not occur on this shift TRANSFERS: SHOWER - SCORE: 0-UNK TRANSFERS: TUB: Activity did not occur on this shift TRANSFERS: TUB - SCORE: 0-UNK LOCOMOTION: WALK: Activity did not occur on this shift LOCOMOTION: WALK - SCORE: 0-UNK LOCOMOTION: WHEELCHAIR: Activity did not occur on this shift LOCOMOTION: WHEELCHAIR - SCORE: 0-UNK COMPREHENSION: COMPREHENSION: TYPE: Both COMPREHENSION - STEP 1: Does the patient require help from a person or device, or need extra time to understand complex and a bstract ideas (such as current events, finances, discharge planning, medical issues, relationships, e tc)? No. COMPREHENSION - STEP 2: Does the patient need extra time, require an assistive device (such as glasses for visual comprehensi on or a hearing aid for auditory comprehension) or does s/he have mild difficulty understanding compl ex and abstract information? Yes. COMPREHENSION - SCORE: 6-SILVESTRE EXPRESSION EXPRESSION: TYPE: Both EXPRESSION - STEP 1: Does the patient require help from a person or device, or need extra time expressing complex and abst ract ideas (such as current events, finances, discharge planning, medical issues, relationships, etc) ? No. EXPRESSION - STEP 2: Does the patient need extra time, require an assistive device (such as augmentive communication syste m or a communication board), OR does s/he have mild difficulty expressing complex and abstract ideas (including mild dysarthria or mild word-find problems)? No. EXPRESSION - SCORE: 7-IND SOCIAL INTERACTION: SOCIAL INTERACTION - STEP 1: Does the patient require a helper to interact with others in social and therapeutic situations? No. SOCIAL INTERACTION - STEP 2: Does the patient need extra time in social situations, OR does s/he interact with staff, other patien ts, and family members ONLY in structured environments, OR does s/he require medication for social in teraction? Yes, patient needs extra time SOCIAL INTERACTION - SCORE: 6-SILVESTRE PROBLEM SOLVING: PROBLEM SOLVING - STEP 1: Does the patient need help from a person or device, or need extra time to solve complex problems such as managing a checking account or confronting interpersonal problems? Yes. PROBLEM SOLVING - STEP 2: Does the patient solve basic routine problems half or more of the time? Yes. PROBLEM SOLVING - STEP 3: How often does the patient need help to solve basic routine problems? 10%-24% of the time PROBLEM SOLVING - SCORE: 4-MIN MEMORY: MEMORY - STEP 1: Does the patient need help from a person or device, or need extra time to remember frequently encount ered people, daily routines, and executing requests? No. MEMORY - STEP 2: Does the patient have slight difficulty recognizing frequently encountered people, daily routines, or executing requests without the need for repetition or using self-initiated or environmental cues to remember? Yes. MEMORY - SCORE: 6-SILVESTRE SIGNATURE PANEL: The following modified sections: Eating - Score, Grooming - Score, Dressing - Upper Body - Score, Jitendra ssing - Lower Body - Score, Toileting - Score, Bladder Management - Score, Bowel Management - Score, Transfers: Bed, Chair, Wheelchair - Score, Transfers: Toilet - Score, Transfers: Shower - Score, Good sfers: Tub - Score, Locomotion: Walk - Score, Locomotion: Wheelchair - Score, Comprehension - Score, Expression - Score, Social Interaction - Score, Problem Solving - Score, Memory - Score were [electro nically] signed by Valerie Almanzar CNA on ThuAug 23 2018 02:18:45 GMT-0500 (Central Daylight Time)
[2018-08-23] MEDS: LIDOCAINE 5% PATCH TOP SCH (08:39)
[2018-08-23] MEDS: CITALOPRAM 10 MG TABLET PO SCH (08:40)
[2018-08-23] MEDS: VITAMIN D 5,000 UNIT CAP PO SCH (08:41)
[2018-08-23] MEDS: GABAPENTIN 300 MG CAP PO SCH ×3 (08:42→20:44)
[2018-08-23] MEDS: APIXABAN 2.5 MG TABLET PO SCH ×2 (08:42→20:44)
[2018-08-23] MEDS: CYANOCOBALAMIN 1,000 MCG TAB PO SCH (08:42)
[2018-08-23] MEDS: LISINOPRIL 5 MG TAB PO SCH (08:43)
[2018-08-23] MEDS: FLECAINIDE 100 MG TAB PO SCH ×2 (08:43→20:44)
[2018-08-23] MEDS: FUROSEMIDE 20 MG TABLET PO SCH (08:44)
[2018-08-23] MEDS: NEOMYCIN EACH EYE SCH ×4 (09:00→20:47)
[2018-08-23] MEDS: DEXAMETHASONE EACH EYE SCH ×4 (09:00→20:47)
[2018-08-23] MEDS: POLYMYXIN B EACH EYE SCH ×4 (09:00→20:47)
[2018-08-23] MEDS: VALSARTAN 80 MG TAB PO SCH (12:00)
[2018-08-23] MEDS: MAGNESIUM OXIDE 400 MG TAB PO SCH ×2 (13:08→20:43)
[2018-08-23] MEDS: ONDANSETRON 4 MG (ODT) TAB PO PRN ×2 (15:31→20:53)
[2018-08-23] MEDS: TAMSULOSIN 0.4 MG SR CAP PO SCH (20:43)
[2018-08-23] MEDS: ATORVASTATIN 10 MG TAB PO SCH (20:44)
[2018-08-23] MEDS: MELATONIN 3 MG TABLET PO PRN (20:48)
--- NOTE | 2018-08-24 03:40 | FAST ---
SHIFT START DATE/TIME: 08/23/2018 19:00 (CDT) SHIFT END DATE/TIME: 08/24/2018 07:00 (CDT) NAME PRICE ROGERS DATE OF : 1940 DATE OF ADMISSION: 07/05/2018 18:33 (CDT) PHONE: AGE: 78 N# [id number] GENDER: Male ENCOUNTER PHYSICIAN: Dr. Abdirahman Zepeda M.D. 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 EATING: Activity did not occur on this shift EATING - SCORE: 0-UNK GROOMING: Activity did not occur on this shift GROOMING - SCORE: 0-UNK BATHING: Activity did not occur on this shift BATHING - SCORE: 0-UNK DRESSING - UPPER BODY: Patient is not dressing in public clothing ARTICLES SCORE Total number of steps: 0 DRESSING - UPPER BODY - SCORE: 0-UNK DRESSING - LOWER BODY: Patient is not dressing in public clothing ARTICLES SCORE Total number of steps: 0 DRESSING - LOWER BODY - SCORE: 0-UNK TOILETING: TOILETING - STEP 1: Does the patient require the assistance of a person or device, or need extra time with toileting? Yes . TOILETING - STEP 2: Does the patient require the assistance of a helper? Yes. TOILETING - STEP 3: How much assistance does the patient require from the helper? Hands-on assistance from the helper TOILETING - STEP 4: Of the 3 tasks: 1) Adjusting clothing prior to use, 2) Cleansing of perineal area, 3) Adjusting clot merissa after use; How many tasks does the patient perform WITHOUT assistance of the helper? No tasks; h raquel performs all three tasks TOILETING - SCORE: 1-DEP BLADDER MANAGEMENT: BLADDER MANAGEMENT - STEP 1: Does the patient control the bladder completely and intentionally without equipment or devices or med ications, and is always continent? No. BLADDER MANAGEMENT - STEP 2: Does the patient require the assistance of a helper? Yes. BLADDER MANAGEMENT - STEP 3: How much assistance does the patient require from the helper? Patient requires contact assistance fro m the helper BLADDER MANAGEMENT - STEP 4: How much contact assistance does the patient require from the helper? Patient requires moderate mary tance, and performs 50% to 75% of bladder management tasks - [place] positions AND holds urinal or bed benítez BLADDER MANAGEMENT - SCORE: 3-MOD BOWEL MANAGEMENT: Activity did not occur on this shift BOWEL MANAGEMENT - SCORE: 7-IND TRANSFERS: BED, CHAIR, WHEELCHAIR: Patient requires more than one helper and/or the use of a mechanical lift is utilized TRANSFERS: BED, CHAIR, WHEELCHAIR - SCORE: 1-DEP TRANSFERS: TOILET: Patient requires more than one helper and/or the use of a mechanical lift is utilized TRANSFERS: TOILET - SCORE: 1-DEP TRANSFERS: SHOWER: Activity did not occur on this shift TRANSFERS: SHOWER - SCORE: 0-UNK TRANSFERS: TUB: Activity did not occur on this shift TRANSFERS: TUB - SCORE: 0-UNK LOCOMOTION: WALK: Activity did not occur on this shift LOCOMOTION: WALK - SCORE: 0-UNK LOCOMOTION: WHEELCHAIR: Activity did not occur on this shift LOCOMOTION: WHEELCHAIR - SCORE: 0-UNK COMPREHENSION: COMPREHENSION: TYPE: Both COMPREHENSION - STEP 1: Does the patient require help from a person or device, or need extra time to understand complex and a bstract ideas (such as current events, finances, discharge planning, medical issues, relationships, e tc)? No. COMPREHENSION - STEP 2: Does the patient need extra time, require an assistive device (such as glasses for visual comprehensi on or a hearing aid for auditory comprehension) or does s/he have mild difficulty understanding compl ex and abstract information? Yes. COMPREHENSION - SCORE: 6-SILVESTRE EXPRESSION EXPRESSION: TYPE: Both EXPRESSION - STEP 1: Does the patient require help from a person or device, or need extra time expressing complex and abst ract ideas (such as current events, finances, discharge planning, medical issues, relationships, etc) ? No. EXPRESSION - STEP 2: Does the patient need extra time, require an assistive device (such as augmentive communication syste m or a communication board), OR does s/he have mild difficulty expressing complex and abstract ideas (including mild dysarthria or mild word-find problems)? No. EXPRESSION - SCORE: 7-IND SOCIAL INTERACTION: SOCIAL INTERACTION - STEP 1: Does the patient require a helper to interact with others in social and therapeutic situations? No. SOCIAL INTERACTION - STEP 2: Does the patient need extra time in social situations, OR does s/he interact with staff, other patien ts, and family members ONLY in structured environments, OR does s/he require medication for social in teraction? Yes, patient requires medication for social interaction SOCIAL INTERACTION - SCORE: 6-SILVESTRE PROBLEM SOLVING: PROBLEM SOLVING - STEP 1: Does the patient need help from a person or device, or need extra time to solve complex problems such as managing a checking account or confronting interpersonal problems? No. PROBLEM SOLVING - STEP 2: Does the patient require extra time to make decisions or solve problems, OR does s/he have slight dif ficulty reading, initiating, or self-correcting in unfamiliar situations? Yes, patient needs extra ti me. PROBLEM SOLVING - SCORE: 6-SILVESTRE MEMORY: MEMORY - STEP 1: Does the patient need help from a person or device, or need extra time to remember frequently encount ered people, daily routines, and executing requests? No. MEMORY - STEP 2: Does the patient have slight difficulty recognizing frequently encountered people, daily routines, or executing requests without the need for repetition or using self-initiated or environmental cues to remember? Yes. MEMORY - SCORE: 6-SILVESTRE SIGNATURE PANEL: The following modified sections: Eating - Score, Grooming - Score, Dressing - Upper Body - Score, Jitendra ssing - Lower Body - Score, Toileting - Score, Bladder Management - Score, Bowel Management - Score, Transfers: Bed, Chair, Wheelchair - Score, Transfers: Toilet - Score, Transfers: Shower - Score, Good sfers: Tub - Score, Locomotion: Walk - Score, Locomotion: Wheelchair - Score, Comprehension - Score, Expression - Score, Social Interaction - Score, Problem Solving - Score, Memory - Score were [electro nically] signed by Valerie Almanzar CNA on ThuAug 24 2018 03:38:43 GMT-0500 (Central Daylight Time)
[2018-08-24] MEDS: FLECAINIDE 100 MG TAB PO SCH ×2 (08:39→20:25)
[2018-08-24] MEDS: LIDOCAINE 5% PATCH TOP SCH (08:39)
[2018-08-24] MEDS: FUROSEMIDE 20 MG TABLET PO SCH (08:40)
[2018-08-24] MEDS: CITALOPRAM 10 MG TABLET PO SCH (08:40)
[2018-08-24] MEDS: GABAPENTIN 300 MG CAP PO SCH ×3 (08:42→20:24)
[2018-08-24] MEDS: APIXABAN 2.5 MG TABLET PO SCH ×2 (08:43→20:24)
[2018-08-24] MEDS: LISINOPRIL 5 MG TAB PO SCH (08:43)
[2018-08-24] MEDS: MAGNESIUM OXIDE 400 MG TAB PO SCH ×2 (08:44→20:24)
[2018-08-24] MEDS: CYANOCOBALAMIN 1,000 MCG TAB PO SCH (08:44)
[2018-08-24] MEDS: POLYMYXIN B EACH EYE SCH ×4 (09:00→20:25)
[2018-08-24] MEDS: NEOMYCIN EACH EYE SCH ×4 (09:00→20:25)
[2018-08-24] MEDS: DEXAMETHASONE EACH EYE SCH ×4 (09:00→20:25)
[2018-08-24] MEDS: ONDANSETRON 4 MG (ODT) TAB PO PRN (10:46)
[2018-08-24] MEDS: VALSARTAN 80 MG TAB PO SCH (12:00)
--- NOTE | 2018-08-24 14:28 | FAST ---
ENCOUNTER DATE AND TIME: 08/24/2018 08:00 (CDT) NAME PRICE ROGERS DATE OF : 1940 DATE OF ADMISSION: 07/05/2018 18:33 (CDT) PHONE: AGE: 78 N# [id number] GENDER: Male ENCOUNTER PHYSICIAN: Dr. Abdirahman Zepeda M.D. 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 EATING: Activity did not occur on this shift EATING - SCORE: 0-UNK GROOMING: Comb/brush hair Oral care Patient shaved Wash, rinse, and dry face Wash, rinse, and dry hands GROOMING - STEP 1: Does the patient require the assistance of a person or device, or need extra time when grooming? Yes. GROOMING - STEP 2: Does the patient require the assistance of a helper? Yes. GROOMING - STEP 3: How much assistance does the patient require from the helper? Incidental touching assistance from the helper while grooming GROOMING - SCORE: 4-MIN BATHING: Activity did not occur on this shift BATHING - SCORE: 0-UNK DRESSING - UPPER BODY: Activity did not occur on this shift ARTICLES SCORE Total number of steps: 0 DRESSING - UPPER BODY - SCORE: 0-UNK DRESSING - LOWER BODY: Elastic waist pants (three steps) Underwear (three steps) ARTICLES SCORE Total number of steps: 6 DRESSING - LOWER BODY - STEP 1: Does the patient require help from a person or device, or need extra time when dressing below the ahrry st? Yes. DRESSING - LOWER BODY - STEP 2: Does the patient require the assistance of a helper? Yes. DRESSING - LOWER BODY - STEP 3: Does the helper touch the patient while dressing? Yes. DRESSING - LOWER BODY - STEP 4: How many of the total steps does the patient complete on his/her own? 3 DRESSING - LOWER BODY - SCORE: 3-MOD TOILETING: TOILETING - STEP 1: Does the patient require the assistance of a person or device, or need extra time with toileting? Yes . TOILETING - STEP 2: Does the patient require the assistance of a helper? Yes. TOILETING - STEP 3: How much assistance does the patient require from the helper? Hands-on assistance from the helper TOILETING - STEP 4: Of the 3 tasks: 1) Adjusting clothing prior to use, 2) Cleansing of perineal area, 3) Adjusting clot merissa after use; How many tasks does the patient perform WITHOUT assistance of the helper? One task TOILETING - SCORE: 2-MAX TOILETING - COMMENTS: Able to clean self while sitting on regular height commode. BLADDER MANAGEMENT: Activity did not occur on this shift BLADDER MANAGEMENT - SCORE: 7-IND BOWEL MANAGEMENT: Activity did not occur on this shift BOWEL MANAGEMENT - SCORE: 7-IND TRANSFERS: BED, CHAIR, WHEELCHAIR: Activity did not occur on this shift TRANSFERS: BED, CHAIR, WHEELCHAIR - SCORE: 0-UNK TRANSFERS: TOILET: TRANSFERS: TOILET - STEP 1: Does the patient require the assistance of a person or device, or need extra time with toilet transfe rs? Yes. TRANSFERS: TOILET - STEP 2: Does the patient require the assistance of a helper? Yes. TRANSFERS: TOILET - STEP 3: How much assistance does the patient require from the helper? Patient performs less than half of the transferring tasks TRANSFERS: TOILET - STEP 4: Does the patient require total assistance for the toilet transfer such as the helper doing basically all the lifting? No. TRANSFERS: TOILET - SCORE: 2-MAX TRANSFERS: SHOWER: Activity did not occur on this shift TRANSFERS: SHOWER - SCORE: 0-UNK TRANSFERS: TUB: Activity did not occur on this shift TRANSFERS: TUB - SCORE: 0-UNK LOCOMOTION: WALK: Activity did not occur on this shift LOCOMOTION: WALK - SCORE: 0-UNK LOCOMOTION: WHEELCHAIR: Activity did not occur on this shift LOCOMOTION: WHEELCHAIR - SCORE: 0-UNK LOCOMOTION: STAIRS: Activity did not occur on this shift LOCOMOTION: STAIRS - SCORE: 0-UNK COMPREHENSION: COMPREHENSION: TYPE: Both COMPREHENSION - STEP 1: Does the patient require help from a person or device, or need extra time to understand complex and a bstract ideas (such as current events, finances, discharge planning, medical issues, relationships, e tc)? No. COMPREHENSION - STEP 2: Does the patient need extra time, require an assistive device (such as glasses for visual comprehensi on or a hearing aid for auditory comprehension) or does s/he have mild difficulty understanding compl ex and abstract information? Yes. COMPREHENSION - SCORE: 6-SILVESTRE EXPRESSION EXPRESSION: TYPE: Both EXPRESSION - STEP 1: Does the patient require help from a person or device, or need extra time expressing complex and abst ract ideas (such as current events, finances, discharge planning, medical issues, relationships, etc) ? No. EXPRESSION - STEP 2: Does the patient need extra time, require an assistive device (such as augmentive communication syste m or a communication board), OR does s/he have mild difficulty expressing complex and abstract ideas (including mild dysarthria or mild word-find problems)? Yes. EXPRESSION - SCORE: 6-SILVESTRE SOCIAL INTERACTION: SOCIAL INTERACTION - STEP 1: Does the patient require a helper to interact with others in social and therapeutic situations? No. SOCIAL INTERACTION - STEP 2: Does the patient need extra time in social situations, OR does s/he interact with staff, other patien ts, and family members ONLY in structured environments, OR does s/he require medication for social in teraction? Yes, patient requires medication for social interaction SOCIAL INTERACTION - SCORE: 6-SILVESTRE PROBLEM SOLVING: PROBLEM SOLVING - STEP 1: Does the patient need help from a person or device, or need extra time to solve complex problems such as managing a checking account or confronting interpersonal problems? No. PROBLEM SOLVING - STEP 2: Does the patient require extra time to make decisions or solve problems, OR does s/he have slight dif ficulty reading, initiating, or self-correcting in unfamiliar situations? Yes, patient needs extra ti me. PROBLEM SOLVING - SCORE: 6-SILVESTRE MEMORY: MEMORY - STEP 1: Does the patient need help from a person or device, or need extra time to remember frequently encount ered people, daily routines, and executing requests? Yes. MEMORY - STEP 2: How often does the patient need help to remember frequently encountered people, daily routines, and e xecuting requests? Less than 10% of the time MEMORY - SCORE: 5-SUP SIGNATURE PANEL: The following modified sections: Eating - Score, Grooming - Score, Bathing - Score, Dressing - Upper Body - Score, Dressing - Lower Body - Score, Toileting - Score, Toileting - Comments:, Transfers: Bed , Chair, Wheelchair - Score, Transfers: Toilet - Score, Transfers: Shower - Score, Transfers: Tub - S core, Comprehension - Score, Expression - Score, Social Interaction - Score, Problem Solving - Score, Memory - Score were [electronically] signed by Shanti Moreno OT on ThuAug 24 2018 14:27:37 GMT-0 500 (Central Daylight Time)
[2018-08-24] MEDS: ACETAMINOPHEN 500 MG TAB PO PRN (15:08)
--- NOTE | 2018-08-24 17:08 | FAST ---
ENCOUNTER DATE AND TIME: 08/24/2018 08:00 (CDT) NAME PRICE ROGERS DATE OF : 1940 DATE OF ADMISSION: 07/05/2018 18:33 (CDT) PHONE: AGE: 78 SSN# [id number] GENDER: Male ENCOUNTER PHYSICIAN: Dr. Abdirahman Zepeda M.D. 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 EATING: Activity did not occur on this shift EATING - SCORE: 0-UNK GROOMING: Activity did not occur on this shift GROOMING - SCORE: 0-UNK BATHING: Activity did not occur on this shift BATHING - SCORE: 0-UNK DRESSING - UPPER BODY: Activity did not occur on this shift Patient is not dressing in public clothing ARTICLES SCORE Total number of steps: 0 DRESSING - UPPER BODY - SCORE: 0-UNK DRESSING - LOWER BODY: Activity did not occur on this shift Patient is not dressing in public clothing ARTICLES SCORE Total number of steps: 0 DRESSING - LOWER BODY - SCORE: 0-UNK TOILETING: Activity did not occur on this shift TOILETING - SCORE: 0-UNK BLADDER MANAGEMENT: Activity did not occur on this shift BLADDER MANAGEMENT - SCORE: 7-IND BOWEL MANAGEMENT: Activity did not occur on this shift BOWEL MANAGEMENT - SCORE: 7-IND TRANSFERS: BED, CHAIR, WHEELCHAIR: TRANSFERS: BED, CHAIR, WHEELCHAIR - STEP 1: Does the patient require assistance of a person or device, or need extra time with bed, chair, or whe elchair transfers? Yes. TRANSFERS: BED, CHAIR, WHEELCHAIR - STEP 2: Does the patient require the assistance of a helper? Yes. TRANSFERS: BED, CHAIR, WHEELCHAIR - STEP 3: How much assistance does the patient require from the helper? Steadying/guiding assistance TRANSFERS: BED, CHAIR, WHEELCHAIR - SCORE: 4-MIN TRANSFERS: TOILET: Activity did not occur on this shift TRANSFERS: TOILET - SCORE: 0-UNK TRANSFERS: SHOWER: Activity did not occur on this shift TRANSFERS: SHOWER - SCORE: 0-UNK TRANSFERS: TUB: Activity did not occur on this shift TRANSFERS: TUB - SCORE: 0-UNK LOCOMOTION: WALK: LOCOMOTION: WALK - STEP 1: Does the patient need help from a person or device, or need extra time to walk 150 feet? Yes. LOCOMOTION: WALK - STEP 2: How much assistance does the patient require to walk a minimum of 150 feet? Patient walks less than 1 50 feet - but more than 50 feet - with the assistance of only one helper LOCOMOTION: WALK - SCORE: 2-MAX LOCOMOTION: WHEELCHAIR: LOCOMOTION: WHEELCHAIR - STEP 1: Does the patient need help to go 150 feet in a wheelchair? Yes. LOCOMOTION: WHEELCHAIR - STEP 2: How much assistance does the patient need from the helper? Only supervision, cuing, or coaxing LOCOMOTION: WHEELCHAIR - SCORE: 5-SUP LOCOMOTION: STAIRS: Activity did not occur on this shift LOCOMOTION: STAIRS - SCORE: 0-UNK COMPREHENSION: COMPREHENSION - SCORE: 0-UNK EXPRESSION EXPRESSION - SCORE: 0-UNK SOCIAL INTERACTION: SOCIAL INTERACTION - SCORE: 0-UNK PROBLEM SOLVING: PROBLEM SOLVING - SCORE: 0-UNK MEMORY: MEMORY - SCORE: 0-UNK SIGNATURE PANEL: The following modified sections: Transfers: Bed, Chair, Wheelchair - Score, Transfers: Toilet - Score , Locomotion: Walk - Score, Locomotion: Wheelchair - Score, Locomotion: Stairs - Score were [electron daphney] signed by Skip Phillips PT on ThuAug 24 2018 17:07:25 T-0500 (Central Daylight Time)
[2018-08-24] MEDS: ATORVASTATIN 10 MG TAB PO SCH (20:24)
[2018-08-24] MEDS: TAMSULOSIN 0.4 MG SR CAP PO SCH (20:24)
[2018-08-24] MEDS: MELATONIN 3 MG TABLET PO PRN (22:19)
--- NOTE | 2018-08-24 23:53 | R.PN ---
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 SUBJECTIVE: Pt denied any Shortness of Breath. Pt denied any depression. Patient states that pain is under control. Hgb 12.4, WBC 6.8, prealbumin 20.7. Functional transfers done with total assistance. He ambulated 250'' with contact guard assistance using a right hand hemiwalker. Self-propelled wheelc hair 150' with standby assistance. left hip x-ray shows no fractures. Therapeutic exercises done with contact guard assistance and multiple rest breaks. VITAL SIGNS Temperature: 98.1 F SBP/DBP: 117/68 Pulse: 66 Resp: 15 MEDICATION ALLERGIES: No Known Drug Allergies (NKDA) ENVIRONMENTAL ALLERGIES: None Known - Substance Allergies None Known - Other Allergies None Known NURSING: - Shower allowing shower - Bladder care per protocol - Skin care per protocol PRECAUTIONS: - Weight Bearing Precaution WBAT left LE ACTIVITIES OOB only with supervision THERAPIES: - Occupational Therapy Evaluate and Treat. Visual Perceptual Training. Cognitive Retraining. - Speech Therapy Cognitive Training. Memory Strategies. Expressive Language Skills. Speech Intelligibility Training. R eceptive Language Skills. Dysphagia Therapy. - Physical Therapy Evaluate and Treat. PHYSICAL EXAM - Gen Alert and awake Lying in bed No apparent distress Oriented to: person, time, and place - Skin No beakdown No abnormalities - Eyes No abnormalities - ENMT No abnormalities - Neck No abnormalities - CVS RRR - Chest No abnormalities - Resp Clear to auscultation - Abd + bowel sounds - GI nondistended Deferred - No abnormalities - Ext Mild left lower extremity edema. - MSK 0/5 strength in the left upper extremity and 2+/5 weakness in left lower extremity. - Neuro 0/5 strength in the left upper extremity and 2+/5 weakness in left lower extremity. - Psych No abnormalities ASSESSMENT: Pt. is a 78 yo Right-handed white male.On 06/25/2018 Pt. presented to [facility] with sudden on set of left-side weakness.On 06/25/2018 he was admitted to [facility] with diagnosis Right MCA. His impairment category is Stroke 01 - Left Body (Right Brain) (01.1).Pre-morbidly, Pt. was independ ent/mod-I in Self-Care, Sphincter Control, Transfers Control, Locomotion, Communication, and Social C ognition; and he had good Sphincter Control.Currently, he has deficits of Self-Care, Transfers Contro l, Locomotion, Communication, Social Cognition, Endurance, Balance, and Safety Awareness.Pt. is now r eferred to [facility] for acute in-patient rehabilitation in order to maximize patient's functional independence in activities of daily living, strength, ROM, and mobility.- Rehab Goal Patient has realistic goal of being discharged at assistance level 6-Maria E to reside at Home with Fam linda/Relatives. MDM/PLAN: - Physical Therapy Gait dysfunction - to improve, our physical therapists will perform initial evaluation of pt's statu s upon admission and devise an individualized program for Gait Training, and Wheel Chair mobility Inability to transfer - to improve, our physical therapists will perform initial evaluation of pt's status upon admission and devise an individualized program for Bed mobility Need for home safety evaluation - to improve, our physical therapists will perform initial evaluatio n of pt's status upon admission and devise an individualized program for Home Evaluation Need in caregiver upon discharge - to improve, our physical therapists will perform initial evaluati on of pt's status upon admission and devise an individualized program for Caregiver Training Edema - to improve, our physical therapists will perform initial evaluation of pt's status upon admi ssion and devise an individualized program for Elevation Training, and Lymphedema Therapy New precaution - to improve, our physical therapists will perform initial evaluation of pt's status upon admission and devise an individualized program for Patient precaution education Poor balance - to improve, our physical therapists will perform initial evaluation of pt's status up on admission and devise an individualized program for Balance Training Poor endurance - to improve, our physical therapists will perform initial evaluation of pt's status upon admission and devise an individualized program for Endurance Training Weakness - to improve, our physical therapists will perform initial evaluation of pt's status upon a dmission and devise an individualized program for Aquatic Therapy, Neuromuscular Reeducation, and Str engthening Achieving independence - to improve, our physical therapists will perform initial evaluation of pt's status upon admission and devise an individualized program for Community Reintegration Activities - Occupational Therapy ADL deficits - to improve, our occupation therapists will perform initial evaluation of pt's status upon admission and devise an individualized program for Bathing, Bed mobility, Community Reintegratio n, Cooking, Dressing, Eating, Fine Motor Skills, Grooming, Homemaking, Kitchen Mobility, Laundry, Pat ient Education, Safety Awareness, Splinting - Positioning, Transfers(Toilet, Tub, Shower), and Wheel Chair Management Cognitive deficits - to improve, our occupation therapists will perform initial evaluation of pt's s tatus upon admission and devise an individualized program for Cognition - orientation Need for healthcare customer service - to improve, our occupation therapists will perform initial evaluation of pt's status upon admission and devise an individualized program for Caregiver Training Weakness - to improve, our occupation therapists will perform initial evaluation of pt's status upon admission and devise an individualized program for Aquatic Therapy, Balance, Endurance, UE ROM, and UE strengthening - Diet Type Continue Regular - Diet - Liquid Texture Continue Thin - Tube Feed Continue N/A - Bladder care per protocol - Weight Bearing Precaution WBAT left LE - Skin care per protocol - Diet - Solid Texture Continue Regular Continue Mechanical Soft (Ground) - Shower allowing shower for Dementia, TBI, Stroke, or others FUNCTIONAL STATUS: UPDATED AT WEEKLY TEAM CONFERENCE - Bladder Same accident frequency: 7-Ind - No accidents in the past 7 days - Bowel Same accident frequency: 7-Ind - No accidents in the past 7 days - Walking Same score based on distance walked: 0(N/A) - Wheelchair Same score based on distance traveled: 0(N/A) FUNCTIONAL STATUS: - Self-Care A. Eating sup B. Grooming Anil C. Bathing maxA D. Dressing - Upper Anil E. Dressing - Lower maxA F. Toileting maxA - Sphincter Control G: Bladder control Ind H: Bowel control Ind - Transfers Control I. Bed/Chair/Wheelchair maxA J. Toilet maxA K. Tub/Shower ADNO - Locomotion L. Walk/Wheelchair (C) Dep L. Walk/Wheelchair (W) Dep M. Stairs ADNO - Communication N. Comprehension (B) Anil O. Expression (B) Anil - Social Cognition P. Social Interaction Anil Q. Problem Solving Anil R. Memory Anil - Endurance Fair - Balance Poor - Safety Awareness Fair CURRENT FUNC. DEFICITS: Self-Care, Transfers Control, Locomotion, Communication, Social Cognition, Endurance, Balance, and Sa fety Awareness SIGNATURE PANEL: (CDT)
--- NOTE | 2018-08-25 01:26 | FAST ---
SHIFT START DATE/TIME: 08/24/2018 19:00 (CDT) SHIFT END DATE/TIME: 08/25/2018 07:00 (CDT) NAME PRICE ROGERS DATE OF : 1940 DATE OF ADMISSION: 07/05/2018 18:33 (CDT) PHONE: AGE: 78 N# [id number] GENDER: Male ENCOUNTER PHYSICIAN: Dr. Abdirahman Zepeda M.D. 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 EATING: Activity did not occur on this shift EATING - SCORE: 0-UNK GROOMING: Activity did not occur on this shift GROOMING - SCORE: 0-UNK BATHING: Activity did not occur on this shift BATHING - SCORE: 0-UNK DRESSING - UPPER BODY: Patient is not dressing in public clothing ARTICLES SCORE Total number of steps: 0 DRESSING - UPPER BODY - SCORE: 0-UNK DRESSING - LOWER BODY: Patient is not dressing in public clothing ARTICLES SCORE Total number of steps: 0 DRESSING - LOWER BODY - SCORE: 0-UNK TOILETING: TOILETING - STEP 1: Does the patient require the assistance of a person or device, or need extra time with toileting? Yes . TOILETING - STEP 2: Does the patient require the assistance of a helper? Yes. TOILETING - STEP 3: How much assistance does the patient require from the helper? Hands-on assistance from the helper TOILETING - STEP 4: Of the 3 tasks: 1) Adjusting clothing prior to use, 2) Cleansing of perineal area, 3) Adjusting clot merissa after use; How many tasks does the patient perform WITHOUT assistance of the helper? No tasks; h raquel performs all three tasks TOILETING - SCORE: 1-DEP BLADDER MANAGEMENT: BLADDER MANAGEMENT - STEP 1: Does the patient control the bladder completely and intentionally without equipment or devices or med ications, and is always continent? No. BLADDER MANAGEMENT - STEP 2: Does the patient require the assistance of a helper? Yes. BLADDER MANAGEMENT - STEP 3: How much assistance does the patient require from the helper? Patient requires contact assistance fro m the helper BLADDER MANAGEMENT - STEP 4: How much contact assistance does the patient require from the helper? Patient requires moderate mary tance, and performs 50% to 75% of bladder management tasks - Raven positions AND holds urinal or bed benítez BLADDER MANAGEMENT - SCORE: 3-MOD BOWEL MANAGEMENT: BOWEL MANAGEMENT - STEP 1: Does the patient control bowels completely and intentionally without equipment devices or medications AND is always continent? No. BOWEL MANAGEMENT - STEP 2: Does the patient require the assistance of a helper? No, patient requires medication for control such as stool softeners, suppositories, laxatives, enemas, or OTC medications BOWEL MANAGEMENT - SCORE: 6-SILVESTRE TRANSFERS: BED, CHAIR, WHEELCHAIR: Activity did not occur on this shift TRANSFERS: BED, CHAIR, WHEELCHAIR - SCORE: 0-UNK TRANSFERS: TOILET: Activity did not occur on this shift TRANSFERS: TOILET - SCORE: 0-UNK TRANSFERS: SHOWER: Activity did not occur on this shift TRANSFERS: SHOWER - SCORE: 0-UNK TRANSFERS: TUB: Activity did not occur on this shift TRANSFERS: TUB - SCORE: 0-UNK LOCOMOTION: WALK: Activity did not occur on this shift LOCOMOTION: WALK - SCORE: 0-UNK LOCOMOTION: WHEELCHAIR: Activity did not occur on this shift LOCOMOTION: WHEELCHAIR - SCORE: 0-UNK COMPREHENSION: COMPREHENSION: TYPE: Both COMPREHENSION - STEP 1: Does the patient require help from a person or device, or need extra time to understand complex and a bstract ideas (such as current events, finances, discharge planning, medical issues, relationships, e tc)? No. COMPREHENSION - STEP 2: Does the patient need extra time, require an assistive device (such as glasses for visual comprehensi on or a hearing aid for auditory comprehension) or does s/he have mild difficulty understanding compl ex and abstract information? Yes. COMPREHENSION - SCORE: 6-SILVESTRE EXPRESSION EXPRESSION: TYPE: Both EXPRESSION - STEP 1: Does the patient require help from a person or device, or need extra time expressing complex and abst ract ideas (such as current events, finances, discharge planning, medical issues, relationships, etc) ? No. EXPRESSION - STEP 2: Does the patient need extra time, require an assistive device (such as augmentive communication syste m or a communication board), OR does s/he have mild difficulty expressing complex and abstract ideas (including mild dysarthria or mild word-find problems)? No. EXPRESSION - SCORE: 7-IND SOCIAL INTERACTION: SOCIAL INTERACTION - STEP 1: Does the patient require a helper to interact with others in social and therapeutic situations? No. SOCIAL INTERACTION - STEP 2: Does the patient need extra time in social situations, OR does s/he interact with staff, other patien ts, and family members ONLY in structured environments, OR does s/he require medication for social in teraction? Yes, patient needs extra time SOCIAL INTERACTION - SCORE: 6-SILVESTRE PROBLEM SOLVING: PROBLEM SOLVING - STEP 1: Does the patient need help from a person or device, or need extra time to solve complex problems such as managing a checking account or confronting interpersonal problems? Yes. PROBLEM SOLVING - STEP 2: Does the patient solve basic routine problems half or more of the time? Yes. PROBLEM SOLVING - STEP 3: How often does the patient need help to solve basic routine problems? 10%-24% of the time PROBLEM SOLVING - SCORE: 4-MIN MEMORY: MEMORY - STEP 1: Does the patient need help from a person or device, or need extra time to remember frequently encount ered people, daily routines, and executing requests? No. MEMORY - STEP 2: Does the patient have slight difficulty recognizing frequently encountered people, daily routines, or executing requests without the need for repetition or using self-initiated or environmental cues to remember? Yes. MEMORY - SCORE: 6-SILVESTRE SIGNATURE PANEL: The following modified sections: Eating - Score, Grooming - Score, Dressing - Upper Body - Score, Jitendra ssing - Lower Body - Score, Toileting - Score, Bladder Management - Score, Bowel Management - Score, Transfers: Bed, Chair, Wheelchair - Score, Transfers: Toilet - Score, Transfers: Shower - Score, Good sfers: Tub - Score, Locomotion: Walk - Score, Locomotion: Wheelchair - Score, Comprehension - Score, Expression - Score, Social Interaction - Score, Problem Solving - Score, Memory - Score were [electro nically] signed by Valerie Almanzar CNA on ThuAug 25 2018 01:25:39 GMT-0500 (Central Daylight Time)
[2018-08-25] MEDS: ACETAMINOPHEN 500 MG TAB PO PRN (08:50)
[2018-08-25] MEDS: FLECAINIDE 100 MG TAB PO SCH ×2 (08:52→20:46)
[2018-08-25] MEDS: CYANOCOBALAMIN 1,000 MCG TAB PO SCH (08:52)
[2018-08-25] MEDS: LIDOCAINE 5% PATCH TOP SCH (08:52)
[2018-08-25] MEDS: GABAPENTIN 300 MG CAP PO SCH ×3 (08:53→20:46)
[2018-08-25] MEDS: APIXABAN 2.5 MG TABLET PO SCH ×2 (08:53→20:46)
[2018-08-25] MEDS: LISINOPRIL 5 MG TAB PO SCH (08:53)
[2018-08-25] MEDS: FUROSEMIDE 20 MG TABLET PO SCH (08:54)
[2018-08-25] MEDS: MAGNESIUM OXIDE 400 MG TAB PO SCH ×2 (08:54→20:46)
[2018-08-25] MEDS: NEOMYCIN EACH EYE SCH ×5 (08:55→20:46)
[2018-08-25] MEDS: DEXAMETHASONE EACH EYE SCH ×5 (08:55→20:46)
[2018-08-25] MEDS: POLYMYXIN B EACH EYE SCH ×5 (08:55→20:46)
[2018-08-25] MEDS: CITALOPRAM 10 MG TABLET PO SCH (08:55)
[2018-08-25] MEDS: ONDANSETRON 4 MG (ODT) TAB PO PRN ×2 (09:28→20:36)
--- NOTE | 2018-08-25 09:51 | FAST ---
SHIFT START DATE/TIME: 08/25/2018 07:00 (CDT) SHIFT END DATE/TIME: 08/25/2018 19:00 (CDT) NAME PRICE ROGERS DATE OF : 1940 DATE OF ADMISSION: 07/05/2018 18:33 (CDT) PHONE: AGE: 78 N# [id number] GENDER: Male ENCOUNTER PHYSICIAN: Dr. Abdirahman Zepeda M.D. 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 EATING: EATING - STEP 1: Does the patient require the assistance of a person or device, or need extra time when eating? Yes. EATING - STEP 2: Does the patient require the assistance of a helper? No, patient only requires an assistive device, O R s/he takes more than reasonable time to eat, OR there is a safety concern, OR s/he requires modifie d food consistency EATING - SCORE: 6-SILVESTRE GROOMING: Comb/brush hair Oral care Patient shaved GROOMING - STEP 1: Does the patient require the assistance of a person or device, or need extra time when grooming? Yes. GROOMING - STEP 2: Does the patient require the assistance of a helper? Yes. GROOMING - STEP 3: How much assistance does the patient require from the helper? Only prior equipment preparation/set up from the helper GROOMING - SCORE: 5-SUP BATHING: Activity did not occur on this shift BATHING - SCORE: 0-UNK DRESSING - UPPER BODY: Activity did not occur on this shift ARTICLES SCORE Total number of steps: 0 DRESSING - UPPER BODY - SCORE: 0-UNK DRESSING - LOWER BODY: Activity did not occur on this shift ARTICLES SCORE Total number of steps: 0 DRESSING - LOWER BODY - SCORE: 0-UNK TOILETING: TOILETING - STEP 1: Does the patient require the assistance of a person or device, or need extra time with toileting? Yes . TOILETING - STEP 2: Does the patient require the assistance of a helper? Yes. TOILETING - STEP 3: How much assistance does the patient require from the helper? Hands-on assistance from the helper TOILETING - STEP 4: Of the 3 tasks: 1) Adjusting clothing prior to use, 2) Cleansing of perineal area, 3) Adjusting clot merissa after use; How many tasks does the patient perform WITHOUT assistance of the helper? One task TOILETING - SCORE: 2-MAX BLADDER MANAGEMENT: BLADDER MANAGEMENT - STEP 1: Does the patient control the bladder completely and intentionally without equipment or devices or med ications, and is always continent? No. BLADDER MANAGEMENT - STEP 2: Does the patient require the assistance of a helper? No, patient requires and independently uses an a ssistive device, such as a urinal, bedpan, bedside commode, catheter, absorbent pad, or collecting de vice BLADDER MANAGEMENT - SCORE: 6-SILVESTRE BOWEL MANAGEMENT: Activity did not occur on this shift BOWEL MANAGEMENT - SCORE: 7-IND TRANSFERS: BED, CHAIR, WHEELCHAIR: TRANSFERS: BED, CHAIR, WHEELCHAIR - STEP 1: Does the patient require assistance of a person or device, or need extra time with bed, chair, or whe elchair transfers? Yes. TRANSFERS: BED, CHAIR, WHEELCHAIR - STEP 2: Does the patient require the assistance of a helper? Yes. TRANSFERS: BED, CHAIR, WHEELCHAIR - STEP 3: How much assistance does the patient require from the helper? Lifting of the patient TRANSFERS: BED, CHAIR, WHEELCHAIR - STEP 4: Does the helper lift the patient ONLY up? ONLY down? Up AND Down? Up AND Down. TRANSFERS: BED, CHAIR, WHEELCHAIR - SCORE: 2-MAX TRANSFERS: TOILET: TRANSFERS: TOILET - STEP 1: Does the patient require the assistance of a person or device, or need extra time with toilet transfe rs? Yes. TRANSFERS: TOILET - STEP 2: Does the patient require the assistance of a helper? Yes. TRANSFERS: TOILET - STEP 3: How much assistance does the patient require from the helper? Patient performs less than half of the transferring tasks TRANSFERS: TOILET - STEP 4: Does the patient require total assistance for the toilet transfer such as the helper doing basically all the lifting? No. TRANSFERS: TOILET - SCORE: 2-MAX TRANSFERS: SHOWER: Activity did not occur on this shift TRANSFERS: SHOWER - SCORE: 0-UNK TRANSFERS: TUB: Activity did not occur on this shift TRANSFERS: TUB - SCORE: 0-UNK LOCOMOTION: WALK: Activity did not occur on this shift LOCOMOTION: WALK - SCORE: 0-UNK LOCOMOTION: WHEELCHAIR: Activity did not occur on this shift LOCOMOTION: WHEELCHAIR - SCORE: 0-UNK COMPREHENSION: COMPREHENSION: TYPE: Both COMPREHENSION - STEP 1: Does the patient require help from a person or device, or need extra time to understand complex and a bstract ideas (such as current events, finances, discharge planning, medical issues, relationships, e tc)? No. COMPREHENSION - STEP 2: Does the patient need extra time, require an assistive device (such as glasses for visual comprehensi on or a hearing aid for auditory comprehension) or does s/he have mild difficulty understanding compl ex and abstract information? Yes. COMPREHENSION - SCORE: 6-SILVESTRE EXPRESSION EXPRESSION: TYPE: Both EXPRESSION - STEP 1: Does the patient require help from a person or device, or need extra time expressing complex and abst ract ideas (such as current events, finances, discharge planning, medical issues, relationships, etc) ? No. EXPRESSION - STEP 2: Does the patient need extra time, require an assistive device (such as augmentive communication syste m or a communication board), OR does s/he have mild difficulty expressing complex and abstract ideas (including mild dysarthria or mild word-find problems)? Yes. EXPRESSION - SCORE: 6-SILVESTRE SOCIAL INTERACTION: SOCIAL INTERACTION - STEP 1: Does the patient require a helper to interact with others in social and therapeutic situations? No. SOCIAL INTERACTION - STEP 2: Does the patient need extra time in social situations, OR does s/he interact with staff, other patien ts, and family members ONLY in structured environments, OR does s/he require medication for social in teraction? Yes, patient needs extra time SOCIAL INTERACTION - SCORE: 6-SILVESTRE PROBLEM SOLVING: PROBLEM SOLVING - STEP 1: Does the patient need help from a person or device, or need extra time to solve complex problems such as managing a checking account or confronting interpersonal problems? No. PROBLEM SOLVING - STEP 2: Does the patient require extra time to make decisions or solve problems, OR does s/he have slight dif ficulty reading, initiating, or self-correcting in unfamiliar situations? Yes, patient needs extra ti me. PROBLEM SOLVING - SCORE: 6-SILVESTRE MEMORY: MEMORY - STEP 1: Does the patient need help from a person or device, or need extra time to remember frequently encount ered people, daily routines, and executing requests? No. MEMORY - STEP 2: Does the patient have slight difficulty recognizing frequently encountered people, daily routines, or executing requests without the need for repetition or using self-initiated or environmental cues to remember? Yes. MEMORY - SCORE: 6-SILVESTRE SIGNATURE PANEL: The following modified sections: Eating - Score, Grooming - Score, Bathing - Score, Dressing - Upper Body - Score, Dressing - Lower Body - Score, Toileting - Score, Bladder Management - Score, Bowel Man agement - Score, Transfers: Bed, Chair, Wheelchair - Score, Transfers: Toilet - Score, Transfers: Melissa wer - Score, Transfers: Tub - Score, Locomotion: Walk - Score, Locomotion: Wheelchair - Score, Compre hension - Score, Expression - Score, Social Interaction - Score, Problem Solving - Score, Memory - Sc ore were [electronically] signed by Wilmar Arboleda on ThuAug 25 2018 09:49:20 GMT-0500 (Central Daylight Time)
[2018-08-25] MEDS: VALSARTAN 80 MG TAB PO SCH (12:47)
--- NOTE | 2018-08-25 15:40 | FAST ---
ENCOUNTER DATE AND TIME: 08/25/2018 08:00 (CDT) NAME PRICE ROGERS DATE OF : 1940 DATE OF ADMISSION: 07/05/2018 18:33 (CDT) PHONE: AGE: 78 SSN# [id number] GENDER: Male ENCOUNTER PHYSICIAN: Dr. Abdirahman Zepeda M.D. 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 EATING: Activity did not occur on this shift EATING - SCORE: 0-UNK GROOMING: Activity did not occur on this shift GROOMING - SCORE: 0-UNK BATHING: Activity did not occur on this shift BATHING - SCORE: 0-UNK DRESSING - UPPER BODY: Activity did not occur on this shift Patient is not dressing in public clothing ARTICLES SCORE Total number of steps: 0 DRESSING - UPPER BODY - SCORE: 0-UNK DRESSING - LOWER BODY: Activity did not occur on this shift Patient is not dressing in public clothing ARTICLES SCORE Total number of steps: 0 DRESSING - LOWER BODY - SCORE: 0-UNK TOILETING: Activity did not occur on this shift TOILETING - SCORE: 0-UNK BLADDER MANAGEMENT: Activity did not occur on this shift BLADDER MANAGEMENT - SCORE: 7-IND BOWEL MANAGEMENT: Activity did not occur on this shift BOWEL MANAGEMENT - SCORE: 7-IND TRANSFERS: BED, CHAIR, WHEELCHAIR: TRANSFERS: BED, CHAIR, WHEELCHAIR - STEP 1: Does the patient require assistance of a person or device, or need extra time with bed, chair, or whe elchair transfers? Yes. TRANSFERS: BED, CHAIR, WHEELCHAIR - STEP 2: Does the patient require the assistance of a helper? Yes. TRANSFERS: BED, CHAIR, WHEELCHAIR - STEP 3: How much assistance does the patient require from the helper? Steadying/guiding assistance TRANSFERS: BED, CHAIR, WHEELCHAIR - SCORE: 4-MIN TRANSFERS: TOILET: TRANSFERS: TOILET - STEP 1: Does the patient require the assistance of a person or device, or need extra time with toilet transfe rs? Yes. TRANSFERS: TOILET - STEP 2: Does the patient require the assistance of a helper? Yes. TRANSFERS: TOILET - STEP 3: How much assistance does the patient require from the helper? Patient performs half or more of the tr ansferring tasks TRANSFERS: TOILET - STEP 4: Does the patient need only incidental help such as contact guard or steadying during toilet transfer? Yes. TRANSFERS: TOILET - SCORE: 4-MIN TRANSFERS: SHOWER: Activity did not occur on this shift TRANSFERS: SHOWER - SCORE: 0-UNK TRANSFERS: TUB: Activity did not occur on this shift TRANSFERS: TUB - SCORE: 0-UNK LOCOMOTION: WALK: Activity did not occur on this shift LOCOMOTION: WALK - SCORE: 0-UNK LOCOMOTION: WHEELCHAIR: LOCOMOTION: WHEELCHAIR - STEP 1: Does the patient need help to go 150 feet in a wheelchair? Yes. LOCOMOTION: WHEELCHAIR - STEP 2: How much assistance does the patient need from the helper? Only supervision, cuing, or coaxing LOCOMOTION: WHEELCHAIR - SCORE: 5-SUP LOCOMOTION: STAIRS: Activity did not occur on this shift LOCOMOTION: STAIRS - SCORE: 0-UNK COMPREHENSION: COMPREHENSION - SCORE: 0-UNK EXPRESSION EXPRESSION - SCORE: 0-UNK SOCIAL INTERACTION: SOCIAL INTERACTION - SCORE: 0-UNK PROBLEM SOLVING: PROBLEM SOLVING - SCORE: 0-UNK MEMORY: MEMORY - SCORE: 0-UNK SIGNATURE PANEL: The following modified sections: Transfers: Bed, Chair, Wheelchair - Score, Transfers: Toilet - Score , Locomotion: Walk - Score, Locomotion: Wheelchair - Score, Locomotion: Stairs - Score were [electron daphney] signed by Skip Phillips PT on ThuAug 25 2018 15:39:40 GMT-0500 (Central Daylight Time)
--- NOTE | 2018-08-25 15:49 | FAST ---
ENCOUNTER DATE AND TIME: 08/23/2018 08:00 (CDT) NAME PRICE ROGERS DATE OF : 1940 DATE OF ADMISSION: 07/05/2018 18:33 (CDT) PHONE: AGE: 78 SSN# [id number] GENDER: Male ENCOUNTER PHYSICIAN: Dr. Abdirahman Zepeda M.D. 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 EATING: Activity did not occur on this shift EATING - SCORE: 0-UNK GROOMING: Activity did not occur on this shift GROOMING - SCORE: 0-UNK BATHING: Activity did not occur on this shift BATHING - SCORE: 0-UNK DRESSING - UPPER BODY: Activity did not occur on this shift Patient is not dressing in public clothing ARTICLES SCORE Total number of steps: 0 DRESSING - UPPER BODY - SCORE: 0-UNK DRESSING - LOWER BODY: Activity did not occur on this shift Patient is not dressing in public clothing ARTICLES SCORE Total number of steps: 0 DRESSING - LOWER BODY - SCORE: 0-UNK TOILETING: Activity did not occur on this shift TOILETING - SCORE: 0-UNK BLADDER MANAGEMENT: Activity did not occur on this shift BLADDER MANAGEMENT - SCORE: 7-IND BOWEL MANAGEMENT: Activity did not occur on this shift BOWEL MANAGEMENT - SCORE: 7-IND TRANSFERS: BED, CHAIR, WHEELCHAIR: TRANSFERS: BED, CHAIR, WHEELCHAIR - STEP 1: Does the patient require assistance of a person or device, or need extra time with bed, chair, or whe elchair transfers? Yes. TRANSFERS: BED, CHAIR, WHEELCHAIR - STEP 2: Does the patient require the assistance of a helper? Yes. TRANSFERS: BED, CHAIR, WHEELCHAIR - STEP 3: How much assistance does the patient require from the helper? Steadying/guiding assistance TRANSFERS: BED, CHAIR, WHEELCHAIR - SCORE: 4-MIN TRANSFERS: TOILET: Activity did not occur on this shift TRANSFERS: TOILET - SCORE: 0-UNK TRANSFERS: SHOWER: Activity did not occur on this shift TRANSFERS: SHOWER - SCORE: 0-UNK TRANSFERS: TUB: Activity did not occur on this shift TRANSFERS: TUB - SCORE: 0-UNK LOCOMOTION: WALK: LOCOMOTION: WALK - STEP 1: Does the patient need help from a person or device, or need extra time to walk 150 feet? Yes. LOCOMOTION: WALK - STEP 2: How much assistance does the patient require to walk a minimum of 150 feet? Patient walks less than 1 50 feet - but more than 50 feet - with the assistance of only one helper LOCOMOTION: WALK - SCORE: 2-MAX LOCOMOTION: WHEELCHAIR: LOCOMOTION: WHEELCHAIR - STEP 1: Does the patient need help to go 150 feet in a wheelchair? Yes. LOCOMOTION: WHEELCHAIR - STEP 2: How much assistance does the patient need from the helper? Only incidental help such as around corner s or over thresholds LOCOMOTION: WHEELCHAIR - SCORE: 4-MIN LOCOMOTION: STAIRS: Activity did not occur on this shift LOCOMOTION: STAIRS - SCORE: 0-UNK COMPREHENSION: COMPREHENSION - SCORE: 0-UNK EXPRESSION EXPRESSION - SCORE: 0-UNK SOCIAL INTERACTION: SOCIAL INTERACTION - SCORE: 0-UNK PROBLEM SOLVING: PROBLEM SOLVING - SCORE: 0-UNK MEMORY: MEMORY - SCORE: 0-UNK SIGNATURE PANEL: The following modified sections: Transfers: Bed, Chair, Wheelchair - Score, Transfers: Toilet - Score , Locomotion: Walk - Score, Locomotion: Wheelchair - Score, Locomotion: Stairs - Score were [electron daphney] signed by Lorne Garcia PTA on ThuAug 25 2018 15:47:50 GMT-0500 (Central Daylight Time)
[2018-08-25] MEDS: TAMSULOSIN 0.4 MG SR CAP PO SCH (20:46)
[2018-08-25] MEDS: MELATONIN 3 MG TABLET PO PRN (20:46)
[2018-08-25] MEDS: ATORVASTATIN 10 MG TAB PO SCH (20:46)
--- NOTE | 2018-08-25 23:06 | R.PN ---
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 SUBJECTIVE: Pt denied any Shortness of Breath. Pt denied any depression. Patient states that pain is under control. Hgb 12.4, WBC 6.8, prealbumin 20.7. Functional transfers done with total assistance. He ambulated 150'' with contact guard assistance using a right hand hemiwalker. Self-propelled wheelc hair 150' with standby assistance. left hip x-ray shows no fractures. Therapeutic exercises done with contact guard assistance and multiple rest breaks. VITAL SIGNS Temperature: 98.1 F SBP/DBP: 119/65 Pulse: 64 Resp: 15 MEDICATION ALLERGIES: No Known Drug Allergies (NKDA) ENVIRONMENTAL ALLERGIES: None Known - Substance Allergies None Known - Other Allergies None Known NURSING: - Shower allowing shower - Bladder care per protocol - Skin care per protocol PRECAUTIONS: - Weight Bearing Precaution WBAT left LE ACTIVITIES OOB only with supervision THERAPIES: - Occupational Therapy Evaluate and Treat. Visual Perceptual Training. Cognitive Retraining. - Speech Therapy Cognitive Training. Memory Strategies. Expressive Language Skills. Speech Intelligibility Training. R eceptive Language Skills. Dysphagia Therapy. - Physical Therapy Evaluate and Treat. PHYSICAL EXAM - Gen Alert and awake Lying in bed No apparent distress Oriented to: person, time, and place - Skin No beakdown No abnormalities - Eyes No abnormalities - ENMT No abnormalities - Neck No abnormalities - CVS RRR - Chest No abnormalities - Resp Clear to auscultation - Abd + bowel sounds - GI nondistended Deferred - No abnormalities - Ext Mild left lower extremity edema. - MSK 0/5 strength in the left upper extremity and 2+/5 weakness in left lower extremity. - Neuro 0/5 strength in the left upper extremity and 2+/5 weakness in left lower extremity. - Psych No abnormalities ASSESSMENT: Pt. is a 78 yo Right-handed white male.On 06/25/2018 Pt. presented to [facility] with sudden on set of left-side weakness.On 06/25/2018 he was admitted to [facility] with diagnosis Right MCA. His impairment category is Stroke 01 - Left Body (Right Brain) (01.1).Pre-morbidly, Pt. was independ ent/mod-I in Self-Care, Sphincter Control, Transfers Control, Locomotion, Communication, and Social C ognition; and he had good Sphincter Control.Currently, he has deficits of Self-Care, Transfers Contro l, Locomotion, Communication, Social Cognition, Endurance, Balance, and Safety Awareness.Pt. is now r eferred to [facility] for acute in-patient rehabilitation in order to maximize patient's functional independence in activities of daily living, strength, ROM, and mobility.- Rehab Goal Patient has realistic goal of being discharged at assistance level 6-Maria E to reside at Home with Fam linda/Relatives. MDM/PLAN: - Physical Therapy Gait dysfunction - to improve, our physical therapists will perform initial evaluation of pt's statu s upon admission and devise an individualized program for Gait Training, and Wheel Chair mobility Inability to transfer - to improve, our physical therapists will perform initial evaluation of pt's status upon admission and devise an individualized program for Bed mobility Need for home safety evaluation - to improve, our physical therapists will perform initial evaluatio n of pt's status upon admission and devise an individualized program for Home Evaluation Need in caregiver upon discharge - to improve, our physical therapists will perform initial evaluati on of pt's status upon admission and devise an individualized program for Caregiver Training Edema - to improve, our physical therapists will perform initial evaluation of pt's status upon admi ssion and devise an individualized program for Elevation Training, and Lymphedema Therapy New precaution - to improve, our physical therapists will perform initial evaluation of pt's status upon admission and devise an individualized program for Patient precaution education Poor balance - to improve, our physical therapists will perform initial evaluation of pt's status up on admission and devise an individualized program for Balance Training Poor endurance - to improve, our physical therapists will perform initial evaluation of pt's status upon admission and devise an individualized program for Endurance Training Weakness - to improve, our physical therapists will perform initial evaluation of pt's status upon a dmission and devise an individualized program for Aquatic Therapy, Neuromuscular Reeducation, and Str engthening Achieving independence - to improve, our physical therapists will perform initial evaluation of pt's status upon admission and devise an individualized program for Community Reintegration Activities - Occupational Therapy ADL deficits - to improve, our occupation therapists will perform initial evaluation of pt's status upon admission and devise an individualized program for Bathing, Bed mobility, Community Reintegratio n, Cooking, Dressing, Eating, Fine Motor Skills, Grooming, Homemaking, Kitchen Mobility, Laundry, Pat ient Education, Safety Awareness, Splinting - Positioning, Transfers(Toilet, Tub, Shower), and Wheel Chair Management Cognitive deficits - to improve, our occupation therapists will perform initial evaluation of pt's s tatus upon admission and devise an individualized program for Cognition - orientation Need for care program director - to improve, our occupation therapists will perform initial evaluation of pt's status upon admission and devise an individualized program for Caregiver Training Weakness - to improve, our occupation therapists will perform initial evaluation of pt's status upon admission and devise an individualized program for Aquatic Therapy, Balance, Endurance, UE ROM, and UE strengthening - Diet Type Continue Regular - Diet - Liquid Texture Continue Thin - Tube Feed Continue N/A - Bladder care per protocol - Weight Bearing Precaution WBAT left LE - Skin care per protocol - Diet - Solid Texture Continue Regular Continue Mechanical Soft (Ground) - Shower allowing shower for Dementia, TBI, Stroke, or others FUNCTIONAL STATUS: UPDATED AT WEEKLY TEAM CONFERENCE - Bladder Same accident frequency: 7-Ind - No accidents in the past 7 days - Bowel Same accident frequency: 7-Ind - No accidents in the past 7 days - Walking Same score based on distance walked: 0(N/A) - Wheelchair Same score based on distance traveled: 0(N/A) FUNCTIONAL STATUS: - Self-Care A. Eating sup B. Grooming Anil C. Bathing maxA D. Dressing - Upper Anil E. Dressing - Lower maxA F. Toileting maxA - Sphincter Control G: Bladder control Ind H: Bowel control Ind - Transfers Control I. Bed/Chair/Wheelchair maxA J. Toilet maxA K. Tub/Shower ADNO - Locomotion L. Walk/Wheelchair (C) Dep L. Walk/Wheelchair (W) Dep M. Stairs ADNO - Communication N. Comprehension (B) Anil O. Expression (B) Anil - Social Cognition P. Social Interaction Anil Q. Problem Solving Anil R. Memory Anil - Endurance Fair - Balance Poor - Safety Awareness Fair CURRENT FUNC. DEFICITS: Self-Care, Transfers Control, Locomotion, Communication, Social Cognition, Endurance, Balance, and Sa fety Awareness SIGNATURE PANEL: (CDT)
--- NOTE | 2018-08-26 01:39 | FAST ---
SHIFT START DATE/TIME: 08/25/2018 19:00 (CDT) SHIFT END DATE/TIME: 08/26/2018 07:00 (CDT) NAME PRICE ROGERS DATE OF : 1940 DATE OF ADMISSION: 07/05/2018 18:33 (CDT) PHONE: AGE: 78 N# [id number] GENDER: Male ENCOUNTER PHYSICIAN: Dr. Abdirahman Zepeda M.D. 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 EATING: Activity did not occur on this shift EATING - SCORE: 0-UNK GROOMING: Activity did not occur on this shift GROOMING - SCORE: 0-UNK BATHING: Activity did not occur on this shift BATHING - SCORE: 0-UNK DRESSING - UPPER BODY: Patient is not dressing in public clothing ARTICLES SCORE Total number of steps: 0 DRESSING - UPPER BODY - SCORE: 0-UNK DRESSING - LOWER BODY: Patient is not dressing in public clothing ARTICLES SCORE Total number of steps: 0 DRESSING - LOWER BODY - SCORE: 0-UNK TOILETING: TOILETING - STEP 1: Does the patient require the assistance of a person or device, or need extra time with toileting? Yes . TOILETING - STEP 2: Does the patient require the assistance of a helper? Yes. TOILETING - STEP 3: How much assistance does the patient require from the helper? Hands-on assistance from the helper TOILETING - STEP 4: Of the 3 tasks: 1) Adjusting clothing prior to use, 2) Cleansing of perineal area, 3) Adjusting clot merissa after use; How many tasks does the patient perform WITHOUT assistance of the helper? No tasks; andre garcía performs all three tasks TOILETING - SCORE: 1-DEP BLADDER MANAGEMENT: BLADDER MANAGEMENT - STEP 1: Does the patient control the bladder completely and intentionally without equipment or devices or med ications, and is always continent? No. BLADDER MANAGEMENT - STEP 2: Does the patient require the assistance of a helper? Yes. BLADDER MANAGEMENT - STEP 3: How much assistance does the patient require from the helper? Only set-up of equipment - such as plac ing it within reach of the patient or emptying a device - to maintain either satisfactory voiding pat tern or managing an external device, such as an absorbent pad, ileal device, or catheter BLADDER MANAGEMENT - SCORE: 5-SUP BOWEL MANAGEMENT: BOWEL MANAGEMENT - STEP 1: Does the patient control bowels completely and intentionally without equipment devices or medications AND is always continent? No. BOWEL MANAGEMENT - STEP 2: Does the patient require the assistance of a helper? No, patient requires medication for control such as stool softeners, suppositories, laxatives, enemas, or OTC medications BOWEL MANAGEMENT - SCORE: 6-SILVESTRE TRANSFERS: BED, CHAIR, WHEELCHAIR: Activity did not occur on this shift TRANSFERS: BED, CHAIR, WHEELCHAIR - SCORE: 0-UNK TRANSFERS: TOILET: Activity did not occur on this shift TRANSFERS: TOILET - SCORE: 0-UNK TRANSFERS: SHOWER: Activity did not occur on this shift TRANSFERS: SHOWER - SCORE: 0-UNK TRANSFERS: TUB: Activity did not occur on this shift TRANSFERS: TUB - SCORE: 0-UNK LOCOMOTION: WALK: Activity did not occur on this shift LOCOMOTION: WALK - SCORE: 0-UNK LOCOMOTION: WHEELCHAIR: Activity did not occur on this shift LOCOMOTION: WHEELCHAIR - SCORE: 0-UNK COMPREHENSION: COMPREHENSION: TYPE: Both COMPREHENSION - STEP 1: Does the patient require help from a person or device, or need extra time to understand complex and a bstract ideas (such as current events, finances, discharge planning, medical issues, relationships, e tc)? No. COMPREHENSION - STEP 2: Does the patient need extra time, require an assistive device (such as glasses for visual comprehensi on or a hearing aid for auditory comprehension) or does s/he have mild difficulty understanding compl ex and abstract information? Yes. COMPREHENSION - SCORE: 6-SILVESTRE EXPRESSION EXPRESSION: TYPE: Both EXPRESSION - STEP 1: Does the patient require help from a person or device, or need extra time expressing complex and abst ract ideas (such as current events, finances, discharge planning, medical issues, relationships, etc) ? No. EXPRESSION - STEP 2: Does the patient need extra time, require an assistive device (such as augmentive communication syste m or a communication board), OR does s/he have mild difficulty expressing complex and abstract ideas (including mild dysarthria or mild word-find problems)? No. EXPRESSION - SCORE: 7-IND SOCIAL INTERACTION: SOCIAL INTERACTION - STEP 1: Does the patient require a helper to interact with others in social and therapeutic situations? No. SOCIAL INTERACTION - STEP 2: Does the patient need extra time in social situations, OR does s/he interact with staff, other patien ts, and family members ONLY in structured environments, OR does s/he require medication for social in teraction? Yes, patient requires medication for social interaction SOCIAL INTERACTION - SCORE: 6-SILVESTRE PROBLEM SOLVING: PROBLEM SOLVING - STEP 1: Does the patient need help from a person or device, or need extra time to solve complex problems such as managing a checking account or confronting interpersonal problems? Yes. PROBLEM SOLVING - STEP 2: Does the patient solve basic routine problems half or more of the time? Yes. PROBLEM SOLVING - STEP 3: How often does the patient need help to solve basic routine problems? 10%-24% of the time PROBLEM SOLVING - SCORE: 4-MIN MEMORY: MEMORY - STEP 1: Does the patient need help from a person or device, or need extra time to remember frequently encount ered people, daily routines, and executing requests? No. MEMORY - STEP 2: Does the patient have slight difficulty recognizing frequently encountered people, daily routines, or executing requests without the need for repetition or using self-initiated or environmental cues to remember? Yes. MEMORY - SCORE: 6-SILVESTRE SIGNATURE PANEL: The following modified sections: Eating - Score, Grooming - Score, Dressing - Upper Body - Score, Jitendra ssing - Lower Body - Score, Toileting - Score, Bladder Management - Score, Bowel Management - Score, Transfers: Bed, Chair, Wheelchair - Score, Transfers: Toilet - Score, Transfers: Shower - Score, Good sfers: Tub - Score, Locomotion: Walk - Score, Locomotion: Wheelchair - Score, Comprehension - Score, Expression - Score, Social Interaction - Score, Problem Solving - Score, Memory - Score were [electro nically] signed by Valerie Almanzar CNA on ThuAug 26 2018 01:39:04 GMT-0500 (Central Daylight Time)
[2018-08-26 06:07] LABS: Absolute Lymphocytes (CBC) 1.4 K/uL (0.7-4.9); Basophils % 0.5 % (0-1.3); Hematocrit 36.8 % (39.6-49.0); Lymphocytes % 26.1 % (15.3-44.8); MPV 8.8 fL (7.6-11.3); RBC Red Blood Cell Count 3.92 M/uL (4.33-5.43)
[2018-08-26 06:27] LABS: Magnesium 2.2 mg/dL (1.8-2.4); Potassium 4.1 mmol/L (3.5-5.1); Prealbumin 22.9 mg/dL (20-40)
[2018-08-26] MEDS: LIDOCAINE 5% PATCH TOP SCH (08:23)
[2018-08-26] MEDS: FLECAINIDE 100 MG TAB PO SCH ×2 (08:23→20:30)
[2018-08-26] MEDS: GABAPENTIN 300 MG CAP PO SCH ×3 (08:24→20:30)
[2018-08-26] MEDS: FUROSEMIDE 20 MG TABLET PO SCH (08:24)
[2018-08-26] MEDS: MAGNESIUM OXIDE 400 MG TAB PO SCH ×2 (08:25→20:30)
[2018-08-26] MEDS: CYANOCOBALAMIN 1,000 MCG TAB PO SCH (08:25)
[2018-08-26] MEDS: APIXABAN 2.5 MG TABLET PO SCH ×2 (08:25→20:30)
[2018-08-26] MEDS: CITALOPRAM 10 MG TABLET PO SCH (08:25)
[2018-08-26] MEDS: LISINOPRIL 5 MG TAB PO SCH (08:26)
[2018-08-26] MEDS: POLYMYXIN B EACH EYE SCH ×4 (09:00→20:31)
[2018-08-26] MEDS: NEOMYCIN EACH EYE SCH ×4 (09:00→20:31)
[2018-08-26] MEDS: DEXAMETHASONE EACH EYE SCH ×4 (09:00→20:31)
[2018-08-26] MEDS: ONDANSETRON 4 MG (ODT) TAB PO PRN ×2 (10:10→20:31)
--- NOTE | 2018-08-26 12:48 | FAST ---
ENCOUNTER DATE AND TIME: 08/25/2018 08:00 (CDT) NAME PRICE ROGERS DATE OF : 1940 DATE OF ADMISSION: 07/05/2018 18:33 (CDT) PHONE: AGE: 78 SSN# [id number] GENDER: Male ENCOUNTER PHYSICIAN: Dr. Abdirahman Zepeda M.D. 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 EATING: EATING - STEP 1: Does the patient require the assistance of a person or device, or need extra time when eating? No. EATING - SCORE: 7-IND GROOMING: Comb/brush hair Oral care Wash, rinse, and dry face Wash, rinse, and dry hands GROOMING - STEP 1: Does the patient require the assistance of a person or device, or need extra time when grooming? Yes. GROOMING - STEP 2: Does the patient require the assistance of a helper? Yes. GROOMING - STEP 3: How much assistance does the patient require from the helper? Only prior equipment preparation/set up from the helper GROOMING - SCORE: 5-SUP BATHING: Abdomen Buttocks Chest Left arm Left lower leg and foot Left upper leg Perineal area Right arm Right lower leg and foot Right upper leg BATHING - STEP 1: Does the patient require the assistance of a person or device, or need extra time when bathing? Yes. BATHING - STEP 2: Does the patient require the assistance of a helper? Yes. BATHING - STEP 3: How much assistance does the patient require from the helper? Only incidental help such as placement of a wash cloth in his/her hand a few times as s/he bathes OR help to bathe just one or two areas of the body BATHING - SCORE: 4-MIN DRESSING - UPPER BODY: T-shirt/pullover shirt (four steps) ARTICLES SCORE Total number of steps: 4 DRESSING - UPPER BODY - STEP 1: Does the patient require help from a person or device, or need extra time when dressing above the [address]? Yes. DRESSING - UPPER BODY - STEP 2: Does the patient require the assistance of a helper? Yes. DRESSING - UPPER BODY - STEP 3: Does the helper touch the patient while dressing? Yes. DRESSING - UPPER BODY - STEP 4: How many of the total steps does the patient complete on his/her own? 3 DRESSING - UPPER BODY - SCORE: 4-MIN DRESSING - LOWER BODY: Elastic waist pants (three steps) Slip-on shoe - Left foot (one step) Slip-on shoe - Right foot (one step) Underwear (three steps) ARTICLES SCORE Total number of steps: 8 DRESSING - LOWER BODY - STEP 1: Does the patient require help from a person or device, or need extra time when dressing below the [address]? Yes. DRESSING - LOWER BODY - STEP 2: Does the patient require the assistance of a helper? Yes. DRESSING - LOWER BODY - STEP 3: Does the helper touch the patient while dressing? Yes. DRESSING - LOWER BODY - STEP 4: How many of the total steps does the patient complete on his/her own? 6 DRESSING - LOWER BODY - SCORE: 4-MIN TOILETING: TOILETING - STEP 1: Does the patient require the assistance of a person or device, or need extra time with toileting? Yes . TOILETING - STEP 2: Does the patient require the assistance of a helper? Yes. TOILETING - STEP 3: How much assistance does the patient require from the helper? Hands-on assistance from the helper TOILETING - STEP 4: Of the 3 tasks: 1) Adjusting clothing prior to use, 2) Cleansing of perineal area, 3) Adjusting clot merissa after use; How many tasks does the patient perform WITHOUT assistance of the helper? One task TOILETING - SCORE: 2-MAX BLADDER MANAGEMENT: Activity did not occur on this shift BLADDER MANAGEMENT - SCORE: 7-IND BOWEL MANAGEMENT: Activity did not occur on this shift BOWEL MANAGEMENT - SCORE: 7-IND TRANSFERS: BED, CHAIR, WHEELCHAIR: Activity did not occur on this shift TRANSFERS: BED, CHAIR, WHEELCHAIR - SCORE: 0-UNK TRANSFERS: TOILET: TRANSFERS: TOILET - STEP 1: Does the patient require the assistance of a person or device, or need extra time with toilet transfe rs? Yes. TRANSFERS: TOILET - STEP 2: Does the patient require the assistance of a helper? Yes. TRANSFERS: TOILET - STEP 3: How much assistance does the patient require from the helper? Patient performs less than half of the transferring tasks TRANSFERS: TOILET - STEP 4: Does the patient require total assistance for the toilet transfer such as the helper doing basically all the lifting? No. TRANSFERS: TOILET - SCORE: 2-MAX TRANSFERS: SHOWER: TRANSFERS: SHOWER - STEP 1: Does the patient require the assistance of a person or device, or need extra time with shower transfe rs? Yes. TRANSFERS: SHOWER - STEP 2: Does the patient require the assistance of a helper? Yes. TRANSFERS: SHOWER - STEP 3: How much assistance does the patient require from the helper? Only incidental help such as contact gu arding or steadying during shower transfers, or help to lift one leg into the shower TRANSFERS: SHOWER - SCORE: 4-MIN TRANSFERS: TUB: Activity did not occur on this shift TRANSFERS: TUB - SCORE: 0-UNK LOCOMOTION: WALK: Activity did not occur on this shift LOCOMOTION: WALK - SCORE: 0-UNK LOCOMOTION: WHEELCHAIR: Activity did not occur on this shift LOCOMOTION: WHEELCHAIR - SCORE: 0-UNK LOCOMOTION: STAIRS: Activity did not occur on this shift LOCOMOTION: STAIRS - SCORE: 0-UNK COMPREHENSION: COMPREHENSION: TYPE: Both COMPREHENSION - STEP 1: Does the patient require help from a person or device, or need extra time to understand complex and a bstract ideas (such as current events, finances, discharge planning, medical issues, relationships, e tc)? No. COMPREHENSION - STEP 2: Does the patient need extra time, require an assistive device (such as glasses for visual comprehensi on or a hearing aid for auditory comprehension) or does s/he have mild difficulty understanding compl ex and abstract information? Yes. COMPREHENSION - SCORE: 6-SILVESTRE EXPRESSION EXPRESSION: TYPE: Both EXPRESSION - STEP 1: Does the patient require help from a person or device, or need extra time expressing complex and abst ract ideas (such as current events, finances, discharge planning, medical issues, relationships, etc) ? No. EXPRESSION - STEP 2: Does the patient need extra time, require an assistive device (such as augmentive communication syste m or a communication board), OR does s/he have mild difficulty expressing complex and abstract ideas (including mild dysarthria or mild word-find problems)? Yes. EXPRESSION - SCORE: 6-SILVETSRE SOCIAL INTERACTION: SOCIAL INTERACTION - STEP 1: Does the patient require a helper to interact with others in social and therapeutic situations? No. SOCIAL INTERACTION - STEP 2: Does the patient need extra time in social situations, OR does s/he interact with staff, other patien ts, and family members ONLY in structured environments, OR does s/he require medication for social in teraction? Yes, patient requires medication for social interaction SOCIAL INTERACTION - SCORE: 6-SILVESTRE PROBLEM SOLVING: PROBLEM SOLVING - STEP 1: Does the patient need help from a person or device, or need extra time to solve complex problems such as managing a checking account or confronting interpersonal problems? No. PROBLEM SOLVING - STEP 2: Does the patient require extra time to make decisions or solve problems, OR does s/he have slight dif ficulty reading, initiating, or self-correcting in unfamiliar situations? Yes, patient needs extra ti me. PROBLEM SOLVING - SCORE: 6-SILVESTRE MEMORY: MEMORY - STEP 1: Does the patient need help from a person or device, or need extra time to remember frequently encount ered people, daily routines, and executing requests? No. MEMORY - STEP 2: Does the patient have slight difficulty recognizing frequently encountered people, daily routines, or executing requests without the need for repetition or using self-initiated or environmental cues to remember? Yes. MEMORY - SCORE: 6-SILVESTRE SIGNATURE PANEL: The following modified sections: Eating - Score, Grooming - Score, Bathing - Score, Dressing - Upper Body - Score, Dressing - Lower Body - Score, Toileting - Score, Transfers: Bed, Chair, Wheelchair - S core, Transfers: Toilet - Score, Transfers: Shower - Score, Transfers: Tub - Score, Comprehension - S core, Expression - Score, Social Interaction - Score, Problem Solving - Score, Memory - Score were [e lectronically] signed by Shanti Moreno OT on ThuAug 26 2018 12:47:37 T-0500 ([facility])
--- NOTE | 2018-08-26 14:28 | FAST ---
SHIFT START DATE/TIME: 08/26/2018 07:00 (CDT) SHIFT END DATE/TIME: 08/26/2018 19:00 (CDT) NAME PRICE ROGERS DATE OF : 1940 DATE OF ADMISSION: 07/05/2018 18:33 (CDT) PHONE: AGE: 78 N# [id number] GENDER: Male ENCOUNTER PHYSICIAN: Dr. Abdirahman Zepeda M.D. 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 EATING: EATING - STEP 1: Does the patient require the assistance of a person or device, or need extra time when eating? Yes. EATING - STEP 2: Does the patient require the assistance of a helper? Yes. EATING - STEP 3: Does the patient perform half or more of the eating tasks? Yes. EATING - STEP 4: Does the patient need only supervision, cuing, coaxing OR help to apply an orthosis OR help to cut fo od, open containers, pour liquids, or butter bread? Yes. EATING - SCORE: 5-SUP GROOMING: Activity did not occur on this shift GROOMING - SCORE: 0-UNK BATHING: Activity did not occur on this shift BATHING - SCORE: 0-UNK DRESSING - UPPER BODY: Activity did not occur on this shift ARTICLES SCORE Total number of steps: 0 DRESSING - UPPER BODY - SCORE: 0-UNK DRESSING - LOWER BODY: Activity did not occur on this shift ARTICLES SCORE Total number of steps: 0 DRESSING - LOWER BODY - SCORE: 0-UNK TOILETING: TOILETING - STEP 1: Does the patient require the assistance of a person or device, or need extra time with toileting? Yes . TOILETING - STEP 2: Does the patient require the assistance of a helper? Yes. TOILETING - STEP 3: How much assistance does the patient require from the helper? Hands-on assistance from the helper TOILETING - STEP 4: Of the 3 tasks: 1) Adjusting clothing prior to use, 2) Cleansing of perineal area, 3) Adjusting clot merissa after use; How many tasks does the patient perform WITHOUT assistance of the helper? One task TOILETING - SCORE: 2-MAX BLADDER MANAGEMENT: BLADDER MANAGEMENT - STEP 1: Does the patient control the bladder completely and intentionally without equipment or devices or med ications, and is always continent? No. BLADDER MANAGEMENT - STEP 2: Does the patient require the assistance of a helper? No, patient requires and independently uses an a ssistive device, such as a urinal, bedpan, bedside commode, catheter, absorbent pad, or collecting de vice BLADDER MANAGEMENT - SCORE: 6-SILVESTRE BOWEL MANAGEMENT: Activity did not occur on this shift BOWEL MANAGEMENT - SCORE: 7-IND TRANSFERS: BED, CHAIR, WHEELCHAIR: TRANSFERS: BED, CHAIR, WHEELCHAIR - STEP 1: Does the patient require assistance of a person or device, or need extra time with bed, chair, or whe elchair transfers? Yes. TRANSFERS: BED, CHAIR, WHEELCHAIR - STEP 2: Does the patient require the assistance of a helper? Yes. TRANSFERS: BED, CHAIR, WHEELCHAIR - STEP 3: How much assistance does the patient require from the helper? Lifting of the legs TRANSFERS: BED, CHAIR, WHEELCHAIR - STEP 4: How many legs does the patient require the helper to lift? both legs TRANSFERS: BED, CHAIR, WHEELCHAIR - SCORE: 3-MOD TRANSFERS: TOILET: TRANSFERS: TOILET - STEP 1: Does the patient require the assistance of a person or device, or need extra time with toilet transfe rs? Yes. TRANSFERS: TOILET - STEP 2: Does the patient require the assistance of a helper? Yes. TRANSFERS: TOILET - STEP 3: How much assistance does the patient require from the helper? Patient performs half or more of the tr ansferring tasks TRANSFERS: TOILET - STEP 4: Does the patient need only incidental help such as contact guard or steadying during toilet transfer? No. Patient needs more than incidental help TRANSFERS: TOILET - SCORE: 3-MOD TRANSFERS: SHOWER: Activity did not occur on this shift TRANSFERS: SHOWER - SCORE: 0-UNK TRANSFERS: TUB: Activity did not occur on this shift TRANSFERS: TUB - SCORE: 0-UNK LOCOMOTION: WALK: Activity did not occur on this shift LOCOMOTION: WALK - SCORE: 0-UNK LOCOMOTION: WHEELCHAIR: Activity did not occur on this shift LOCOMOTION: WHEELCHAIR - SCORE: 0-UNK COMPREHENSION: COMPREHENSION: TYPE: Both COMPREHENSION - STEP 1: Does the patient require help from a person or device, or need extra time to understand complex and a bstract ideas (such as current events, finances, discharge planning, medical issues, relationships, e tc)? No. COMPREHENSION - STEP 2: Does the patient need extra time, require an assistive device (such as glasses for visual comprehensi on or a hearing aid for auditory comprehension) or does s/he have mild difficulty understanding compl ex and abstract information? Yes. COMPREHENSION - SCORE: 6-SILVESTRE EXPRESSION EXPRESSION: TYPE: Both EXPRESSION - STEP 1: Does the patient require help from a person or device, or need extra time expressing complex and abst ract ideas (such as current events, finances, discharge planning, medical issues, relationships, etc) ? No. EXPRESSION - STEP 2: Does the patient need extra time, require an assistive device (such as augmentive communication syste m or a communication board), OR does s/he have mild difficulty expressing complex and abstract ideas (including mild dysarthria or mild word-find problems)? Yes. EXPRESSION - SCORE: 6-SILVESTRE SOCIAL INTERACTION: SOCIAL INTERACTION - STEP 1: Does the patient require a helper to interact with others in social and therapeutic situations? Yes. SOCIAL INTERACTION - STEP 2: Does the patient interact appropriately half or more of the time? Yes. SOCIAL INTERACTION - STEP 3: How often does the patient need help to interact appropriately? Less than 10% of the time SOCIAL INTERACTION - SCORE: 5-SUP PROBLEM SOLVING: PROBLEM SOLVING - STEP 1: Does the patient need help from a person or device, or need extra time to solve complex problems such as managing a checking account or confronting interpersonal problems? No. PROBLEM SOLVING - STEP 2: Does the patient require extra time to make decisions or solve problems, OR does s/he have slight dif ficulty reading, initiating, or self-correcting in unfamiliar situations? Yes, patient needs extra ti me. PROBLEM SOLVING - SCORE: 6-SILVESTRE MEMORY: MEMORY - STEP 1: Does the patient need help from a person or device, or need extra time to remember frequently encount ered people, daily routines, and executing requests? Yes. MEMORY - STEP 2: How often does the patient need help to remember frequently encountered people, daily routines, and e xecuting requests? Less than 10% of the time MEMORY - SCORE: 5-SUP SIGNATURE PANEL: The following modified sections: Eating - Score, Grooming - Score, Bathing - Score, Dressing - Upper Body - Score, Dressing - Lower Body - Score, Toileting - Score, Bladder Management - Score, Bowel Man agement - Score, Transfers: Bed, Chair, Wheelchair - Score, Transfers: Toilet - Score, Transfers: Melissa wer - Score, Transfers: Tub - Score, Locomotion: Walk - Score, Locomotion: Wheelchair - Score, Compre hension - Score, Expression - Score, Social Interaction - Score, Problem Solving - Score, Memory - Sc ore were [electronically] signed by Wilmar Arboleda on ThuAug 26 2018 14:27:45 GMT-0500 ([facility] Day[facility])
[2018-08-26] MEDS: ACETAMINOPHEN 500 MG TAB PO PRN ×2 (14:53→21:28)
[2018-08-26] MEDS: VALSARTAN 80 MG TAB PO SCH (14:54)
--- NOTE | 2018-08-26 15:12 | FAST ---
ENCOUNTER DATE AND TIME: 08/26/2018 08:00 (CDT) NAME PRICE ROGERS DATE OF : 1940 DATE OF ADMISSION: 07/05/2018 18:33 (CDT) PHONE: AGE: 78 SSN# [id number] GENDER: Male ENCOUNTER PHYSICIAN: Dr. Abdirahman Zepeda M.D. 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 EATING: Activity did not occur on this shift EATING - SCORE: 0-UNK GROOMING: Activity did not occur on this shift GROOMING - SCORE: 0-UNK BATHING: Activity did not occur on this shift BATHING - SCORE: 0-UNK DRESSING - UPPER BODY: Activity did not occur on this shift Patient is not dressing in public clothing ARTICLES SCORE Total number of steps: 0 DRESSING - UPPER BODY - SCORE: 0-UNK DRESSING - LOWER BODY: Activity did not occur on this shift Patient is not dressing in public clothing ARTICLES SCORE Total number of steps: 0 DRESSING - LOWER BODY - SCORE: 0-UNK TOILETING: Activity did not occur on this shift TOILETING - SCORE: 0-UNK BLADDER MANAGEMENT: Activity did not occur on this shift BLADDER MANAGEMENT - SCORE: 7-IND BOWEL MANAGEMENT: Activity did not occur on this shift BOWEL MANAGEMENT - SCORE: 7-IND TRANSFERS: BED, CHAIR, WHEELCHAIR: TRANSFERS: BED, CHAIR, WHEELCHAIR - STEP 1: Does the patient require assistance of a person or device, or need extra time with bed, chair, or whe elchair transfers? Yes. TRANSFERS: BED, CHAIR, WHEELCHAIR - STEP 2: Does the patient require the assistance of a helper? Yes. TRANSFERS: BED, CHAIR, WHEELCHAIR - STEP 3: How much assistance does the patient require from the helper? Steadying/guiding assistance TRANSFERS: BED, CHAIR, WHEELCHAIR - SCORE: 4-MIN TRANSFERS: TOILET: TRANSFERS: TOILET - STEP 1: Does the patient require the assistance of a person or device, or need extra time with toilet transfe rs? Yes. TRANSFERS: TOILET - STEP 2: Does the patient require the assistance of a helper? Yes. TRANSFERS: TOILET - STEP 3: How much assistance does the patient require from the helper? Only supervision, cuing, coaxing, OR he lp to set out transfer equipment or to lock brakes and/or lift foot rests TRANSFERS: TOILET - SCORE: 5-SUP TRANSFERS: SHOWER: Activity did not occur on this shift TRANSFERS: SHOWER - SCORE: 0-UNK TRANSFERS: TUB: Activity did not occur on this shift TRANSFERS: TUB - SCORE: 0-UNK LOCOMOTION: WALK: LOCOMOTION: WALK - STEP 1: Does the patient need help from a person or device, or need extra time to walk 150 feet? Yes. LOCOMOTION: WALK - STEP 2: How much assistance does the patient require to walk a minimum of 150 feet? Patient walks less than 1 50 feet - but more than 50 feet - with the assistance of only one helper LOCOMOTION: WALK - SCORE: 2-MAX LOCOMOTION: WHEELCHAIR: LOCOMOTION: WHEELCHAIR - STEP 1: Does the patient need help to go 150 feet in a wheelchair? Yes. LOCOMOTION: WHEELCHAIR - STEP 2: How much assistance does the patient need from the helper? Only supervision, cuing, or coaxing LOCOMOTION: WHEELCHAIR - SCORE: 5-SUP LOCOMOTION: STAIRS: LOCOMOTION: STAIRS - STEP 1: Does the patient need help to go up and down 12 to 14 stairs? Yes. LOCOMOTION: STAIRS - STEP 2: How much assistance does the patient need from the helper to go a minimum of 12 to 14 stairs? The pat ient goes less than 12 stairs, but at least 4 stairs LOCOMOTION: STAIRS - SCORE: 2-MAX COMPREHENSION: COMPREHENSION - SCORE: 0-UNK EXPRESSION EXPRESSION - SCORE: 0-UNK SOCIAL INTERACTION: SOCIAL INTERACTION - SCORE: 0-UNK PROBLEM SOLVING: PROBLEM SOLVING - SCORE: 0-UNK MEMORY: MEMORY - SCORE: 0-UNK SIGNATURE PANEL: The following modified sections: Transfers: Bed, Chair, Wheelchair - Score, Transfers: Toilet - Score , Locomotion: Walk - Score, Locomotion: Wheelchair - Score, Locomotion: Stairs - Score were [tarsha shelley] signed by Skip Phillips PT on ThuAug 26 2018 15:11:47 GMT-0500 ([facility] Day[facility] Time)
[2018-08-26] MEDS: MELATONIN 3 MG TABLET PO PRN (20:30)
[2018-08-26] MEDS: TAMSULOSIN 0.4 MG SR CAP PO SCH (20:30)
[2018-08-26] MEDS: ATORVASTATIN 10 MG TAB PO SCH (20:30)
--- NOTE | 2018-08-27 02:48 | FAST ---
SHIFT START DATE/TIME: 08/26/2018 19:00 (CDT) SHIFT END DATE/TIME: 08/27/2018 07:00 (CDT) NAME PRICE ROGERS DATE OF : 1940 DATE OF ADMISSION: 07/05/2018 18:33 (CDT) PHONE: AGE: 78 N# [id number] GENDER: Male ENCOUNTER PHYSICIAN: Dr. Abdirahman Zepeda M.D. 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 EATING: Activity did not occur on this shift EATING - SCORE: 0-UNK GROOMING: Activity did not occur on this shift GROOMING - SCORE: 0-UNK BATHING: Activity did not occur on this shift BATHING - SCORE: 0-UNK DRESSING - UPPER BODY: Patient is not dressing in public clothing ARTICLES SCORE Total number of steps: 0 DRESSING - UPPER BODY - SCORE: 0-UNK DRESSING - LOWER BODY: Patient is not dressing in public clothing ARTICLES SCORE Total number of steps: 0 DRESSING - LOWER BODY - SCORE: 0-UNK TOILETING: TOILETING - STEP 1: Does the patient require the assistance of a person or device, or need extra time with toileting? Yes . TOILETING - STEP 2: Does the patient require the assistance of a helper? Yes. TOILETING - STEP 3: How much assistance does the patient require from the helper? Hands-on assistance from the helper TOILETING - STEP 4: Of the 3 tasks: 1) Adjusting clothing prior to use, 2) Cleansing of perineal area, 3) Adjusting clot merissa after use; How many tasks does the patient perform WITHOUT assistance of the helper? No tasks; h elper performs all three tasks TOILETING - SCORE: 1-DEP BLADDER MANAGEMENT: [place] removes incontinent device (Depends, pull ups, etc.); cleans the patient after accident / inco ntinent episode; and, applies new incontinent device. BLADDER MANAGEMENT - SCORE: 1-DEP BLADDER MANAGEMENT - FREQUENCY OF ACCIDENTS: BLADDER MANAGEMENT(FA) - STEP 1: How many accidents has the patient had during the current shift? 1 BOWEL MANAGEMENT: Activity did not occur on this shift BOWEL MANAGEMENT - SCORE: 7-IND TRANSFERS: BED, CHAIR, WHEELCHAIR: Activity did not occur on this shift TRANSFERS: BED, CHAIR, WHEELCHAIR - SCORE: 0-UNK TRANSFERS: TOILET: Activity did not occur on this shift TRANSFERS: TOILET - SCORE: 0-UNK TRANSFERS: SHOWER: Activity did not occur on this shift TRANSFERS: SHOWER - SCORE: 0-UNK TRANSFERS: TUB: Activity did not occur on this shift TRANSFERS: TUB - SCORE: 0-UNK LOCOMOTION: WALK: Activity did not occur on this shift LOCOMOTION: WALK - SCORE: 0-UNK LOCOMOTION: WHEELCHAIR: Activity did not occur on this shift LOCOMOTION: WHEELCHAIR - SCORE: 0-UNK COMPREHENSION: COMPREHENSION: TYPE: Both COMPREHENSION - STEP 1: Does the patient require help from a person or device, or need extra time to understand complex and a bstract ideas (such as current events, finances, discharge planning, medical issues, relationships, e tc)? No. COMPREHENSION - STEP 2: Does the patient need extra time, require an assistive device (such as glasses for visual comprehensi on or a hearing aid for auditory comprehension) or does s/he have mild difficulty understanding compl ex and abstract information? Yes. COMPREHENSION - SCORE: 6-SILVESTRE EXPRESSION EXPRESSION: TYPE: Both EXPRESSION - STEP 1: Does the patient require help from a person or device, or need extra time expressing complex and abst ract ideas (such as current events, finances, discharge planning, medical issues, relationships, etc) ? No. EXPRESSION - STEP 2: Does the patient need extra time, require an assistive device (such as augmentive communication syste m or a communication board), OR does s/he have mild difficulty expressing complex and abstract ideas (including mild dysarthria or mild word-find problems)? No. EXPRESSION - SCORE: 7-IND SOCIAL INTERACTION: SOCIAL INTERACTION - STEP 1: Does the patient require a helper to interact with others in social and therapeutic situations? No. SOCIAL INTERACTION - STEP 2: Does the patient need extra time in social situations, OR does s/he interact with staff, other patien ts, and family members ONLY in structured environments, OR does s/he require medication for social in teraction? Yes, patient requires medication for social interaction SOCIAL INTERACTION - SCORE: 6-SILVESTRE PROBLEM SOLVING: PROBLEM SOLVING - STEP 1: Does the patient need help from a person or device, or need extra time to solve complex problems such as managing a checking account or confronting interpersonal problems? Yes. PROBLEM SOLVING - STEP 2: Does the patient solve basic routine problems half or more of the time? Yes. PROBLEM SOLVING - STEP 3: How often does the patient need help to solve basic routine problems? 10%-24% of the time PROBLEM SOLVING - SCORE: 4-MIN MEMORY: MEMORY - STEP 1: Does the patient need help from a person or device, or need extra time to remember frequently encount ered people, daily routines, and executing requests? No. MEMORY - STEP 2: Does the patient have slight difficulty recognizing frequently encountered people, daily routines, or executing requests without the need for repetition or using self-initiated or environmental cues to remember? Yes. MEMORY - SCORE: 6-SILVESTRE
[2018-08-27] MEDS: FUROSEMIDE 20 MG TABLET PO SCH (08:00)
[2018-08-27] MEDS: LISINOPRIL 5 MG TAB PO SCH (08:00)
[2018-08-27] MEDS: LIDOCAINE 5% PATCH TOP SCH (08:43)
[2018-08-27] MEDS: CITALOPRAM 10 MG TABLET PO SCH (08:44)
[2018-08-27] MEDS: CYANOCOBALAMIN 1,000 MCG TAB PO SCH (08:45)
[2018-08-27] MEDS: GABAPENTIN 300 MG CAP PO SCH ×3 (08:45→20:36)
[2018-08-27] MEDS: FLECAINIDE 100 MG TAB PO SCH ×2 (08:45→20:37)
[2018-08-27] MEDS: APIXABAN 2.5 MG TABLET PO SCH ×2 (08:46→20:38)
[2018-08-27] MEDS: MAGNESIUM OXIDE 400 MG TAB PO SCH ×2 (08:48→20:39)
[2018-08-27] MEDS: ONDANSETRON 4 MG (ODT) TAB PO PRN (08:55)
[2018-08-27] MEDS: DEXAMETHASONE EACH EYE SCH ×2 (09:00→13:00)
[2018-08-27] MEDS: NEOMYCIN EACH EYE SCH ×2 (09:00→13:00)
[2018-08-27] MEDS: POLYMYXIN B EACH EYE SCH ×2 (09:00→13:00)
--- NOTE | 2018-08-27 09:53 | P.RH.PN ---
Estimated Length of Stay: 60 Expected Discharge Date: 08/30/18 Discharge Disposition Plan: Home Family Support: Yes [facility] Goal: Mobility, Transfers, Self Care Vital Signs: Last Vital Signs Temp 96.8 F 08/27/18 06:38 Pulse 67 08/27/18 06:38 Resp 16 08/27/18 06:38 BP 102/70 08/27/18 06:38 Pulse Ox 96 08/27/18 06:38 Laboratory: Laboratory Last Values WBC 5.4 K/uL (4.3-10.9) D 08/26/18 05:46 RBC 3.92 M/uL (4.33-5.43) L 08/26/18 05:46 Hgb 12.0 g/dL (13.6-17.9) L 08/26/18 05:46 Hct 36.8 % (39.6-49.0) L 08/26/18 05:46 MCV 93.7 fL (80-100) 08/26/18 05:46 MCH 30.7 pg (27.0-35.0) 08/26/18 05:46 MCHC 32.8 g/dL (32.0-36.0) 08/26/18 05:46 RDW 14.1 % (12.1-15.2) 08/26/18 05:46 Plt Count 215 K/uL (152-406) 08/26/18 05:46 MPV 8.8 fL (7.6-11.3) 08/26/18 05:46 Neutrophils % 59.9 % (41.7-73.7) 08/26/18 05:46 Lymphocytes % 26.1 % (15.3-44.8) 08/26/18 05:46 Monocytes % 8.6 % (3.3-12.3) 08/26/18 05:46 Eosinophils % 4.9 % (0-4.4) H 08/26/18 05:46 Basophils % 0.5 % (0-1.3) 08/26/18 05:46 Absolute Neutrophils 3.2 K/uL (1.8-8.0) 08/26/18 05:46 Absolute Lymphocytes 1.4 K/uL (0.7-4.9) 08/26/18 05:46 Absolute Monocytes 0.5 K/uL (0.1-1.3) 08/26/18 05:46 Absolute Eosinophils 0.3 K/uL (0-0.5) 08/26/18 05:46 Absolute Basophils 0.0 K/uL (0-0.5) 08/26/18 05:46 Sodium 141 mmol/L (136-145) 08/26/18 05:46 Potassium 4.1 mmol/L (3.5-5.1) 08/26/18 05:46 Chloride 105 mmol/L (98-107) 08/26/18 05:46 Carbon Dioxide 31 mmol/L (21-32) 08/26/18 05:46 BUN 15 mg/dL (7-18) 08/26/18 05:46 Creatinine 0.90 mg/dL (0.55-1.3) 08/26/18 05:46 Estimated GFR 82 mL/min (=/>90) L 08/26/18 05:46 Glucose 92 mg/dL (74-106) 08/26/18 05:46 Calcium 8.2 mg/dL (8.5-10.1) L 08/26/18 05:46 Magnesium 2.2 mg/dL (1.8-2.4) 08/26/18 05:46 Total Bilirubin 0.7 mg/dL (0.2-1.0) 07/06/18 06:04 Direct Bilirubin 0.2 mg/dL (0-0.2) 07/06/18 06:04 AST 25 U/L (15-37) 07/06/18 06:04 ALT 29 U/L (12-78) 07/06/18 06:04 Alkaline Phosphatase 94 U/L (45-117) 07/06/18 06:04 Serum Total Protein 7.0 g/dL (6.4-8.2) 07/06/18 06:04 Albumin 3.0 g/dL (3.4-5.0) L 08/26/18 05:46 Globulin 3.9 g/dL (2.3-3.5) H 07/06/18 06:04 Albumin/Globulin Ratio 0.8 (1.1-1.8) L 07/06/18 06:04 Prealbumin 22.9 mg/dL (20-40) 08/26/18 05:46 Urine Color Yellow 07/11/18 10:59 Urine Appearance Clear 07/11/18 10:59 Urine pH 6.0 (5.0-7.0) 07/11/18 10:59 Ur Specific [place] 1.020 (1.005-1.030) 07/11/18 10:59 Urine Ketones Negative (NEG) 07/11/18 10:59 Urine Blood Negative (NEG) 07/11/18 10:59 Urine Nitrite Negative (NEG) 07/11/18 10:59 Urine Bilirubin Negative (NEG) 07/11/18 10:59 Urine Urobilinogen 1.0 mg/dL (0.2-1.0) 07/11/18 10:59 Ur Leukocyte Esterase Trace (NEG) H 07/11/18 10:59 Urine RBC <5 /HPF (NONE SEEN) 07/11/18 10:59 Urine WBC <5 /HPF (<5) 07/11/18 10:59 Ur Squamous Epith Cells 5-10 /HPF (NONE SEEN) H 07/11/18 10:59 Urine Bacteria <20 /HPF (NONE SEEN) 07/11/18 10:59 Urine Mucus Slight /HPF (NONE SEEN) 07/07/18 00:10 Urine Culture Reflexed Not needed 07/11/18 10:59 Urine Glucose Negative (NEG) 07/11/18 10:59 Urine Total Protein Negative (NEG) 07/11/18 10:59 Weight: 213 lb 1.6 oz Wound Present: No Closed Surgical Incision Present: No Negative Pressure Wound Therapy Present: No Physician Update: His labs are stable. He is making good progress overall but will require assistance at home for at least a few weeks. Medical Issues: DVT Prophylaxis - Eliquis 2.5mg BID Pain Issues: Gabapentin 300mg TID. Lidocaine pacth 5% Daily Comment: Right Groin incision healed, S/P thrombectomy Functional Improvement: pt has demonstrated significant improvement with his functional performance this week. pt is now able to perform w/c <-> bed as well as w/c <-> toilet transfers with CG <-> SBA using grab bars and bed rail. pt also increased his ambulation distance to 100' at the most using a hemiwalker. pt is becoming more stable in standing using the hemiwalker. pt able to ascend and descend 5 stairs using a R sided HR. pt's home is currently in the process of being renovated with adaptive equipment such as a walk-in shower, grab bars and hand holds throughout the house. pt will likely be fully SBA with all transfers by the end of next week. Functional Improvement Occupational Therapy: Patient has demonstrated great progress with BADL tasks and functional trf during OT session, however, has difficulty following thru with same level of function outside of the therapy sessions, due to fatigue, and possibly, due to motivation as part of what seems to appear like increased depression. Patient does benefit from further OT to continue addressing goals, as patient has demonstrated great potential, however , due to his fluctuation of mood and participation in functional tasks away from therapy, he may require a different approach or setting before a safe d/c home. Speech Therapy Update: Pt has demonstrated significant progress on his overall eovprb-yqvabwlb-kxjxfcrit skills this week. Pt demonstrates improved executive functioning by planning out activities/tasks before starting them. He continues to have difficulty generating solutions to problems while he is in the middle of them, and benefits from moderate verbal cues to identify and carry out solutions. Pt is at MOD I for Auditory Comprehension and SUPV for Verbal Expression. He cont to require occasional reminders to slow down and employ compensatory dysarthria strategies to reduce speech rate and increase articulatory precision. Pt is at MOD I for Social Interaction. Pt is at MIN A for Problem Solving and MOD I for Memory. Summary: Patient's care plan and machine long goods helper goals have been reviewed and revised as necessary. Please see the Rehabilitation Signature page for all necessary signatures.
[2018-08-27] MEDS: VALSARTAN 80 MG TAB PO SCH (12:00)
--- NOTE | 2018-08-27 15:33 | FAST ---
ENCOUNTER DATE AND TIME: 08/27/2018 08:00 (CDT) NAME PRICE ROGERS DATE OF : 1940 DATE OF ADMISSION: 07/05/2018 18:33 (CDT) PHONE: AGE: 78 SSN# [id number] GENDER: Male ENCOUNTER PHYSICIAN: Dr. Abdirahman Zepeda M.D. 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 EATING: Activity did not occur on this shift EATING - SCORE: 0-UNK GROOMING: Activity did not occur on this shift GROOMING - SCORE: 0-UNK BATHING: Activity did not occur on this shift BATHING - SCORE: 0-UNK DRESSING - UPPER BODY: Activity did not occur on this shift Patient is not dressing in public clothing ARTICLES SCORE Total number of steps: 0 DRESSING - UPPER BODY - SCORE: 0-UNK DRESSING - LOWER BODY: Activity did not occur on this shift Patient is not dressing in public clothing ARTICLES SCORE Total number of steps: 0 DRESSING - LOWER BODY - SCORE: 0-UNK TOILETING: Activity did not occur on this shift TOILETING - SCORE: 0-UNK BLADDER MANAGEMENT: Activity did not occur on this shift BLADDER MANAGEMENT - SCORE: 7-IND BOWEL MANAGEMENT: Activity did not occur on this shift BOWEL MANAGEMENT - SCORE: 7-IND TRANSFERS: BED, CHAIR, WHEELCHAIR: TRANSFERS: BED, CHAIR, WHEELCHAIR - STEP 1: Does the patient require assistance of a person or device, or need extra time with bed, chair, or whe elchair transfers? Yes. TRANSFERS: BED, CHAIR, WHEELCHAIR - STEP 2: Does the patient require the assistance of a helper? Yes. TRANSFERS: BED, CHAIR, WHEELCHAIR - STEP 3: How much assistance does the patient require from the helper? Only supervision TRANSFERS: BED, CHAIR, WHEELCHAIR - SCORE: 5-SUP TRANSFERS: TOILET: Activity did not occur on this shift TRANSFERS: TOILET - SCORE: 0-UNK TRANSFERS: SHOWER: Activity did not occur on this shift TRANSFERS: SHOWER - SCORE: 0-UNK TRANSFERS: TUB: Activity did not occur on this shift TRANSFERS: TUB - SCORE: 0-UNK LOCOMOTION: WALK: LOCOMOTION: WALK - STEP 1: Does the patient need help from a person or device, or need extra time to walk 150 feet? Yes. LOCOMOTION: WALK - STEP 2: How much assistance does the patient require to walk a minimum of 150 feet? Patient walks less than 1 50 feet - but more than 50 feet - with the assistance of only one helper LOCOMOTION: WALK - SCORE: 2-MAX LOCOMOTION: WHEELCHAIR: LOCOMOTION: WHEELCHAIR - STEP 1: Does the patient need help to go 150 feet in a wheelchair? Yes. LOCOMOTION: WHEELCHAIR - STEP 2: How much assistance does the patient need from the helper? Only incidental help such as around corner s or over thresholds LOCOMOTION: WHEELCHAIR - SCORE: 4-MIN LOCOMOTION: STAIRS: Activity did not occur on this shift LOCOMOTION: STAIRS - SCORE: 0-UNK COMPREHENSION: COMPREHENSION - SCORE: 0-UNK EXPRESSION EXPRESSION - SCORE: 0-UNK SOCIAL INTERACTION: SOCIAL INTERACTION - SCORE: 0-UNK PROBLEM SOLVING: PROBLEM SOLVING - SCORE: 0-UNK MEMORY: MEMORY - SCORE: 0-UNK SIGNATURE PANEL: The following modified sections: Transfers: Bed, Chair, Wheelchair - Score, Transfers: Toilet - Score , Locomotion: Walk - Score, Locomotion: Wheelchair - Score, Locomotion: Stairs - Score were [[email or web address]] signed by Lorne Garcia PTA on ThuAug 27 2018 15:32:02 GMT-0500 (Central Daylight Time)
--- NOTE | 2018-08-27 19:21 | PN ---
Date of Progress Note: 08/27/2018 The patient continues to progress rather slowly. However, he is being continued on his usual regimen with a target day for perhaps another week with an attempt at home placement. Vital signs have been stable. HR/MODL Voice ID: [id number] Report ID: [id number]
[2018-08-27] MEDS: TAMSULOSIN 0.4 MG SR CAP PO SCH (20:38)
[2018-08-27] MEDS: ATORVASTATIN 10 MG TAB PO SCH (20:38)
[2018-08-28] MEDS: LIDOCAINE 5% PATCH TOP SCH (07:14)
[2018-08-28] MEDS: FLECAINIDE 100 MG TAB PO SCH ×2 (08:33→20:29)
[2018-08-28] MEDS: ACETAMINOPHEN 500 MG TAB PO PRN (08:33)
[2018-08-28] MEDS: CYANOCOBALAMIN 1,000 MCG TAB PO SCH (08:34)
[2018-08-28] MEDS: MAGNESIUM OXIDE 400 MG TAB PO SCH ×2 (08:34→20:30)
[2018-08-28] MEDS: CITALOPRAM 10 MG TABLET PO SCH (08:34)
[2018-08-28] MEDS: FUROSEMIDE 20 MG TABLET PO SCH (08:34)
[2018-08-28] MEDS: GABAPENTIN 300 MG CAP PO SCH ×3 (08:34→20:29)
[2018-08-28] MEDS: LISINOPRIL 5 MG TAB PO SCH (08:35)
[2018-08-28] MEDS: APIXABAN 2.5 MG TABLET PO SCH ×2 (08:36→20:28)
[2018-08-28] MEDS: ONDANSETRON 4 MG (ODT) TAB PO PRN (10:58)
[2018-08-28] MEDS: VALSARTAN 80 MG TAB PO SCH (12:00)
[2018-08-28] MEDS: TAMSULOSIN 0.4 MG SR CAP PO SCH (20:29)
[2018-08-28] MEDS: ATORVASTATIN 10 MG TAB PO SCH (20:29)
[2018-08-28] MEDS: [UNRECOGNIZED DRUG - MIXTURE] EACH EYE PRN (20:31)
[2018-08-29] MEDS: LIDOCAINE 5% PATCH TOP SCH (08:26)
[2018-08-29] MEDS: ACETAMINOPHEN 500 MG TAB PO PRN (08:27)
[2018-08-29] MEDS: CITALOPRAM 10 MG TABLET PO SCH (08:28)
[2018-08-29] MEDS: MAGNESIUM OXIDE 400 MG TAB PO SCH ×2 (08:30→20:20)
[2018-08-29] MEDS: FLECAINIDE 100 MG TAB PO SCH ×2 (08:30→20:19)
[2018-08-29] MEDS: FUROSEMIDE 20 MG TABLET PO SCH (08:31)
[2018-08-29] MEDS: GABAPENTIN 300 MG CAP PO SCH ×3 (08:31→20:19)
[2018-08-29] MEDS: APIXABAN 2.5 MG TABLET PO SCH ×2 (08:32→20:19)
[2018-08-29] MEDS: CYANOCOBALAMIN 1,000 MCG TAB PO SCH (08:32)
[2018-08-29] MEDS: LISINOPRIL 5 MG TAB PO SCH (08:33)
[2018-08-29] MEDS: VALSARTAN 80 MG TAB PO SCH (11:53)
[2018-08-29] MEDS: TAMSULOSIN 0.4 MG SR CAP PO SCH (20:19)
[2018-08-29] MEDS: ATORVASTATIN 10 MG TAB PO SCH (20:19)
[2018-08-29] MEDS: [UNRECOGNIZED DRUG - MIXTURE] EACH EYE PRN (20:20)
[2018-08-30] MEDS: LIDOCAINE 5% PATCH TOP SCH (08:00)
[2018-08-30] MEDS: ONDANSETRON 4 MG (ODT) TAB PO PRN ×2 (08:46→14:59)
[2018-08-30] MEDS: FUROSEMIDE 20 MG TABLET PO SCH (08:47)
[2018-08-30] MEDS: FLECAINIDE 100 MG TAB PO SCH ×2 (08:47→21:12)
[2018-08-30] MEDS: CYANOCOBALAMIN 1,000 MCG TAB PO SCH (08:48)
[2018-08-30] MEDS: APIXABAN 2.5 MG TABLET PO SCH ×2 (08:48→21:12)
[2018-08-30] MEDS: MAGNESIUM OXIDE 400 MG TAB PO SCH ×3 (08:48→21:16)
[2018-08-30] MEDS: CITALOPRAM 10 MG TABLET PO SCH (08:48)
[2018-08-30] MEDS: LISINOPRIL 5 MG TAB PO SCH (08:48)
[2018-08-30] MEDS: GABAPENTIN 300 MG CAP PO SCH ×3 (08:48→21:12)
--- NOTE | 2018-08-30 12:33 | FAST ---
ENCOUNTER DATE AND TIME: 08/30/2018 08:00 (CDT) NAME PRICE ROGERS DATE OF : 1940 DATE OF ADMISSION: 07/05/2018 18:33 (CDT) PHONE: AGE: 78 SSN# [id number] GENDER: Male ENCOUNTER PHYSICIAN: Dr. Abdirahman Zepeda M.D. 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 EATING: Activity did not occur on this shift EATING - SCORE: 0-UNK GROOMING: Activity did not occur on this shift GROOMING - SCORE: 0-UNK BATHING: Activity did not occur on this shift BATHING - SCORE: 0-UNK DRESSING - UPPER BODY: Activity did not occur on this shift Patient is not dressing in public clothing ARTICLES SCORE Total number of steps: 0 DRESSING - UPPER BODY - SCORE: 0-UNK DRESSING - LOWER BODY: Activity did not occur on this shift Patient is not dressing in public clothing ARTICLES SCORE Total number of steps: 0 DRESSING - LOWER BODY - SCORE: 0-UNK TOILETING: Activity did not occur on this shift TOILETING - SCORE: 0-UNK BLADDER MANAGEMENT: Activity did not occur on this shift BLADDER MANAGEMENT - SCORE: 7-IND BOWEL MANAGEMENT: Activity did not occur on this shift BOWEL MANAGEMENT - SCORE: 7-IND TRANSFERS: BED, CHAIR, WHEELCHAIR: TRANSFERS: BED, CHAIR, WHEELCHAIR - STEP 1: Does the patient require assistance of a person or device, or need extra time with bed, chair, or whe elchair transfers? Yes. TRANSFERS: BED, CHAIR, WHEELCHAIR - STEP 2: Does the patient require the assistance of a helper? Yes. TRANSFERS: BED, CHAIR, WHEELCHAIR - STEP 3: How much assistance does the patient require from the helper? Steadying/guiding assistance TRANSFERS: BED, CHAIR, WHEELCHAIR - SCORE: 4-MIN TRANSFERS: TOILET: Activity did not occur on this shift TRANSFERS: TOILET - SCORE: 0-UNK TRANSFERS: SHOWER: Activity did not occur on this shift TRANSFERS: SHOWER - SCORE: 0-UNK TRANSFERS: TUB: Activity did not occur on this shift TRANSFERS: TUB - SCORE: 0-UNK LOCOMOTION: WALK: LOCOMOTION: WALK - STEP 1: Does the patient need help from a person or device, or need extra time to walk 150 feet? Yes. LOCOMOTION: WALK - STEP 2: How much assistance does the patient require to walk a minimum of 150 feet? Only incidental help such as contact guarding or steadying LOCOMOTION: WALK - SCORE: 4-MIN LOCOMOTION: WHEELCHAIR: Activity did not occur on this shift LOCOMOTION: WHEELCHAIR - SCORE: 0-UNK LOCOMOTION: STAIRS: Activity did not occur on this shift LOCOMOTION: STAIRS - SCORE: 0-UNK COMPREHENSION: COMPREHENSION - SCORE: 0-UNK EXPRESSION EXPRESSION - SCORE: 0-UNK SOCIAL INTERACTION: SOCIAL INTERACTION - SCORE: 0-UNK PROBLEM SOLVING: PROBLEM SOLVING - SCORE: 0-UNK MEMORY: MEMORY - SCORE: 0-UNK SIGNATURE PANEL: The following modified sections: Transfers: Bed, Chair, Wheelchair - Score, Transfers: Toilet - Score , Locomotion: Walk - Score, Locomotion: Wheelchair - Score, Locomotion: Stairs - Score were [[email or web address] [email or web address]] signed by Dora Hunter PTA on ThuAug 30 2018 12:33:35 T-0500 (Central Daylight Time)
--- NOTE | 2018-08-30 12:42 | FAST ---
SHIFT START DATE/TIME: 08/30/2018 07:00 (CDT) SHIFT END DATE/TIME: 08/30/2018 19:00 (CDT) NAME PRICE ROGERS DATE OF : 1940 DATE OF ADMISSION: 07/05/2018 18:33 (CDT) PHONE: AGE: 78 N# [id number] GENDER: Male ENCOUNTER PHYSICIAN: Dr. Abdirahman Zepeda M.D. 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 EATING: EATING - STEP 1: Does the patient require the assistance of a person or device, or need extra time when eating? Yes. EATING - STEP 2: Does the patient require the assistance of a helper? Yes. EATING - STEP 3: Does the patient perform half or more of the eating tasks? Yes. EATING - STEP 4: Does the patient need only supervision, cuing, coaxing OR help to apply an orthosis OR help to cut fo od, open containers, pour liquids, or butter bread? Yes. EATING - SCORE: 5-SUP GROOMING: Comb/brush hair Oral care Patient shaved GROOMING - STEP 1: Does the patient require the assistance of a person or device, or need extra time when grooming? Yes. GROOMING - STEP 2: Does the patient require the assistance of a helper? Yes. GROOMING - STEP 3: How much assistance does the patient require from the helper? Only prior equipment preparation/set up from the helper GROOMING - SCORE: 5-SUP BATHING: Activity did not occur on this shift BATHING - SCORE: 0-UNK DRESSING - UPPER BODY: Activity did not occur on this shift ARTICLES SCORE Total number of steps: 0 DRESSING - UPPER BODY - SCORE: 0-UNK DRESSING - LOWER BODY: Activity did not occur on this shift ARTICLES SCORE Total number of steps: 0 DRESSING - LOWER BODY - SCORE: 0-UNK TOILETING: TOILETING - STEP 1: Does the patient require the assistance of a person or device, or need extra time with toileting? Yes . TOILETING - STEP 2: Does the patient require the assistance of a helper? Yes. TOILETING - STEP 3: How much assistance does the patient require from the helper? Hands-on assistance from the helper TOILETING - STEP 4: Of the 3 tasks: 1) Adjusting clothing prior to use, 2) Cleansing of perineal area, 3) Adjusting clot merissa after use; How many tasks does the patient perform WITHOUT assistance of the helper? Three tasks with steadying assistance from the helper TOILETING - SCORE: 4-MIN BLADDER MANAGEMENT: BLADDER MANAGEMENT - STEP 1: Does the patient control the bladder completely and intentionally without equipment or devices or med ications, and is always continent? No. BLADDER MANAGEMENT - STEP 2: Does the patient require the assistance of a helper? No, patient requires and independently uses an a ssistive device, such as a urinal, bedpan, bedside commode, catheter, absorbent pad, or collecting de vice BLADDER MANAGEMENT - SCORE: 6-SILVESTRE BOWEL MANAGEMENT: Activity did not occur on this shift BOWEL MANAGEMENT - SCORE: 7-IND TRANSFERS: BED, CHAIR, WHEELCHAIR: TRANSFERS: BED, CHAIR, WHEELCHAIR - STEP 1: Does the patient require assistance of a person or device, or need extra time with bed, chair, or whe elchair transfers? Yes. TRANSFERS: BED, CHAIR, WHEELCHAIR - STEP 2: Does the patient require the assistance of a helper? Yes. TRANSFERS: BED, CHAIR, WHEELCHAIR - STEP 3: How much assistance does the patient require from the helper? Lifting of the patient TRANSFERS: BED, CHAIR, WHEELCHAIR - STEP 4: Does the helper lift the patient ONLY up? ONLY down? Up AND Down? ONLY up. TRANSFERS: BED, CHAIR, WHEELCHAIR - SCORE: 3-MOD TRANSFERS: TOILET: TRANSFERS: TOILET - STEP 1: Does the patient require the assistance of a person or device, or need extra time with toilet transfe rs? Yes. TRANSFERS: TOILET - STEP 2: Does the patient require the assistance of a helper? Yes. TRANSFERS: TOILET - STEP 3: How much assistance does the patient require from the helper? Patient performs half or more of the tr ansferring tasks TRANSFERS: TOILET - STEP 4: Does the patient need only incidental help such as contact guard or steadying during toilet transfer? No. Patient needs more than incidental help TRANSFERS: TOILET - SCORE: 3-MOD TRANSFERS: SHOWER: Activity did not occur on this shift TRANSFERS: SHOWER - SCORE: 0-UNK TRANSFERS: TUB: Activity did not occur on this shift TRANSFERS: TUB - SCORE: 0-UNK LOCOMOTION: WALK: Activity did not occur on this shift LOCOMOTION: WALK - SCORE: 0-UNK LOCOMOTION: WHEELCHAIR: Activity did not occur on this shift LOCOMOTION: WHEELCHAIR - SCORE: 0-UNK COMPREHENSION: COMPREHENSION: TYPE: Both COMPREHENSION - STEP 1: Does the patient require help from a person or device, or need extra time to understand complex and a bstract ideas (such as current events, finances, discharge planning, medical issues, relationships, e tc)? Yes. COMPREHENSION - STEP 2: Does the patient require help to understand questions or statements about basic needs or ideas (such as hunger, thirst, sleep, safety, daily schedule, room location, or discomfort) half or more of the t aneudy? No. COMPREHENSION - STEP 3: How often does the patient need help to understand directions and conversation about basic needs? Les s than 10% of the time COMPREHENSION - SCORE: 5-SUP EXPRESSION EXPRESSION: TYPE: Both EXPRESSION - STEP 1: Does the patient require help from a person or device, or need extra time expressing complex and abst ract ideas (such as current events, finances, discharge planning, medical issues, relationships, etc) ? No. EXPRESSION - STEP 2: Does the patient need extra time, require an assistive device (such as augmentive communication syste m or a communication board), OR does s/he have mild difficulty expressing complex and abstract ideas (including mild dysarthria or mild word-find problems)? No. EXPRESSION - SCORE: 7-IND SOCIAL INTERACTION: SOCIAL INTERACTION - STEP 1: Does the patient require a helper to interact with others in social and therapeutic situations? No. SOCIAL INTERACTION - STEP 2: Does the patient need extra time in social situations, OR does s/he interact with staff, other patien ts, and family members ONLY in structured environments, OR does s/he require medication for social in teraction? Yes, patient needs extra time SOCIAL INTERACTION - SCORE: 6-SILVESTRE PROBLEM SOLVING: PROBLEM SOLVING - STEP 1: Does the patient need help from a person or device, or need extra time to solve complex problems such as managing a checking account or confronting interpersonal problems? No. PROBLEM SOLVING - STEP 2: Does the patient require extra time to make decisions or solve problems, OR does s/he have slight dif ficulty reading, initiating, or self-correcting in unfamiliar situations? Yes, patient needs extra ti me. PROBLEM SOLVING - SCORE: 6-SILVESTRE MEMORY: MEMORY - STEP 1: Does the patient need help from a person or device, or need extra time to remember frequently encount ered people, daily routines, and executing requests? No. MEMORY - STEP 2: Does the patient have slight difficulty recognizing frequently encountered people, daily routines, or executing requests without the need for repetition or using self-initiated or environmental cues to remember? Yes. MEMORY - SCORE: 6-SILVESTRE SIGNATURE PANEL: The following modified sections: Eating - Score, Grooming - Score, Bathing - Score, Dressing - Upper Body - Score, Dressing - Lower Body - Score, Toileting - Score, Bladder Management - Score, Bowel Man agement - Score, Transfers: Bed, Chair, Wheelchair - Score, Transfers: Toilet - Score, Transfers: Melissa wer - Score, Transfers: Tub - Score, Locomotion: Walk - Score, Locomotion: Wheelchair - Score, Compre hension - Score, Expression - Score, Social Interaction - Score, Problem Solving - Score, Memory - Sc ore were [electronically] signed by Wilmar Arboleda on ThuAug 30 2018 12:41:53 T-0500 (Central Daylight Time)
[2018-08-30] MEDS: VALSARTAN 80 MG TAB PO SCH (12:59)
--- NOTE | 2018-08-30 14:46 | FAST ---
ENCOUNTER DATE AND TIME: 08/30/2018 08:00 (CDT) NAME PRICE ROGERS DATE OF : 1940 DATE OF ADMISSION: 07/05/2018 18:33 (CDT) PHONE: AGE: 78 SSN# [id number] GENDER: Male ENCOUNTER PHYSICIAN: Dr. Abdirahman Zepeda M.D. 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 EATING: Activity did not occur on this shift EATING - SCORE: 0-UNK GROOMING: Comb/brush hair Oral care Wash, rinse, and dry face Wash, rinse, and dry hands GROOMING - STEP 1: Does the patient require the assistance of a person or device, or need extra time when grooming? Yes. GROOMING - STEP 2: Does the patient require the assistance of a helper? Yes. GROOMING - STEP 3: How much assistance does the patient require from the helper? Only prior equipment preparation/set up from the helper GROOMING - SCORE: 5-SUP BATHING: Abdomen Buttocks Chest Left arm Left lower leg and foot Left upper leg Perineal area Right arm Right lower leg and foot Right upper leg BATHING - STEP 1: Does the patient require the assistance of a person or device, or need extra time when bathing? Yes. BATHING - STEP 2: Does the patient require the assistance of a helper? Yes. BATHING - STEP 3: How much assistance does the patient require from the helper? Only incidental help such as placement of a wash cloth in his/her hand a few times as s/he bathes OR help to bathe just one or two areas of the body BATHING - SCORE: 4-MIN DRESSING - UPPER BODY: T-shirt/pullover shirt (four steps) ARTICLES SCORE Total number of steps: 4 DRESSING - UPPER BODY - STEP 1: Does the patient require help from a person or device, or need extra time when dressing above the [address]? Yes. DRESSING - UPPER BODY - STEP 2: Does the patient require the assistance of a helper? Yes. DRESSING - UPPER BODY - STEP 3: Does the helper touch the patient while dressing? No. DRESSING - UPPER BODY - SCORE: 5-SUP DRESSING - LOWER BODY: Elastic waist pants (three steps) Sock - Left foot (one step) Sock - Right foot (one step) Underwear (three steps) ARTICLES SCORE Total number of steps: 8 DRESSING - LOWER BODY - STEP 1: Does the patient require help from a person or device, or need extra time when dressing below the [address]? Yes. DRESSING - LOWER BODY - STEP 2: Does the patient require the assistance of a helper? Yes. DRESSING - LOWER BODY - STEP 3: Does the helper touch the patient while dressing? Yes. DRESSING - LOWER BODY - STEP 4: How many of the total steps does the patient complete on his/her own? 4 DRESSING - LOWER BODY - SCORE: 3-MOD TOILETING: TOILETING - STEP 1: Does the patient require the assistance of a person or device, or need extra time with toileting? Yes . TOILETING - STEP 2: Does the patient require the assistance of a helper? Yes. TOILETING - STEP 3: How much assistance does the patient require from the helper? Hands-on assistance from the helper TOILETING - STEP 4: Of the 3 tasks: 1) Adjusting clothing prior to use, 2) Cleansing of perineal area, 3) Adjusting clot merissa after use; How many tasks does the patient perform WITHOUT assistance of the helper? Two tasks TOILETING - SCORE: 3-MOD BLADDER MANAGEMENT: Activity did not occur on this shift BLADDER MANAGEMENT - SCORE: 7-IND BOWEL MANAGEMENT: Activity did not occur on this shift BOWEL MANAGEMENT - SCORE: 7-IND TRANSFERS: BED, CHAIR, WHEELCHAIR: Activity did not occur on this shift TRANSFERS: BED, CHAIR, WHEELCHAIR - SCORE: 0-UNK TRANSFERS: TOILET: TRANSFERS: TOILET - STEP 1: Does the patient require the assistance of a person or device, or need extra time with toilet transfe rs? Yes. TRANSFERS: TOILET - STEP 2: Does the patient require the assistance of a helper? Yes. TRANSFERS: TOILET - STEP 3: How much assistance does the patient require from the helper? Patient performs half or more of the tr ansferring tasks TRANSFERS: TOILET - STEP 4: Does the patient need only incidental help such as contact guard or steadying during toilet transfer? Yes. TRANSFERS: TOILET - SCORE: 4-MIN TRANSFERS: SHOWER: TRANSFERS: SHOWER - STEP 1: Does the patient require the assistance of a person or device, or need extra time with shower transfe rs? Yes. TRANSFERS: SHOWER - STEP 2: Does the patient require the assistance of a helper? Yes. TRANSFERS: SHOWER - STEP 3: How much assistance does the patient require from the helper? Only incidental help such as contact gu arding or steadying during shower transfers, or help to lift one leg into the shower TRANSFERS: SHOWER - SCORE: 4-MIN TRANSFERS: TUB: Activity did not occur on this shift TRANSFERS: TUB - SCORE: 0-UNK LOCOMOTION: WALK: Activity did not occur on this shift LOCOMOTION: WALK - SCORE: 0-UNK LOCOMOTION: WHEELCHAIR: Activity did not occur on this shift LOCOMOTION: WHEELCHAIR - SCORE: 0-UNK LOCOMOTION: STAIRS: Activity did not occur on this shift LOCOMOTION: STAIRS - SCORE: 0-UNK COMPREHENSION: COMPREHENSION: TYPE: Both COMPREHENSION - STEP 1: Does the patient require help from a person or device, or need extra time to understand complex and a bstract ideas (such as current events, finances, discharge planning, medical issues, relationships, e tc)? No. COMPREHENSION - STEP 2: Does the patient need extra time, require an assistive device (such as glasses for visual comprehensi on or a hearing aid for auditory comprehension) or does s/he have mild difficulty understanding compl ex and abstract information? Yes. COMPREHENSION - SCORE: 6-SILVESTRE EXPRESSION EXPRESSION: TYPE: Both EXPRESSION - STEP 1: Does the patient require help from a person or device, or need extra time expressing complex and abst ract ideas (such as current events, finances, discharge planning, medical issues, relationships, etc) ? No. EXPRESSION - STEP 2: Does the patient need extra time, require an assistive device (such as augmentive communication syste m or a communication board), OR does s/he have mild difficulty expressing complex and abstract ideas (including mild dysarthria or mild word-find problems)? Yes. EXPRESSION - SCORE: 6-SILVESTRE SOCIAL INTERACTION: SOCIAL INTERACTION - STEP 1: Does the patient require a helper to interact with others in social and therapeutic situations? No. SOCIAL INTERACTION - STEP 2: Does the patient need extra time in social situations, OR does s/he interact with staff, other patien ts, and family members ONLY in structured environments, OR does s/he require medication for social in teraction? Yes, patient requires medication for social interaction SOCIAL INTERACTION - SCORE: 6-SILVESTRE PROBLEM SOLVING: PROBLEM SOLVING - STEP 1: Does the patient need help from a person or device, or need extra time to solve complex problems such as managing a checking account or confronting interpersonal problems? No. PROBLEM SOLVING - STEP 2: Does the patient require extra time to make decisions or solve problems, OR does s/he have slight dif ficulty reading, initiating, or self-correcting in unfamiliar situations? Yes, patient needs extra ti me. PROBLEM SOLVING - SCORE: 6-SILVESTRE MEMORY: MEMORY - STEP 1: Does the patient need help from a person or device, or need extra time to remember frequently encount ered people, daily routines, and executing requests? No. MEMORY - STEP 2: Does the patient have slight difficulty recognizing frequently encountered people, daily routines, or executing requests without the need for repetition or using self-initiated or environmental cues to remember? Yes. MEMORY - SCORE: 6-SILVESTRE SIGNATURE PANEL: The following modified sections: Eating - Score, Grooming - Score, Bathing - Score, Dressing - Upper Body - Score, Dressing - Lower Body - Score, Toileting - Score, Transfers: Bed, Chair, Wheelchair - S core, Transfers: Toilet - Score, Transfers: Shower - Score, Transfers: Tub - Score, Comprehension - S core, Expression - Score, Social Interaction - Score, Problem Solving - Score, Memory - Score were [e lectronically] signed by Shanti Moreno OT on ThuAug 30 2018 14:46:00 GMT-0500 (Central Daylight T aneudy)
[2018-08-30] MEDS: ATORVASTATIN 10 MG TAB PO SCH (21:12)
[2018-08-30] MEDS: TAMSULOSIN 0.4 MG SR CAP PO SCH (21:12)
--- NOTE | 2018-08-30 23:23 | R.PN ---
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 SUBJECTIVE: Pt denied any Shortness of Breath. Pt denied any depression. Patient states that pain is under control. Hgb 12.4, WBC 6.8, prealbumin 20.7. Functional transfers done with total assistance. He ambulated 60' with contact guard assistance using a right hand hemiwalker. Self-propelled wheelcha ir 150' with standby assistance. left hip x-ray shows no fractures. Therapeutic exercises done with contact guard assistance and multiple rest breaks. VITAL SIGNS Temperature: 98.1 F SBP/DBP: 127/71 Pulse: 71 Resp: 15 MEDICATION ALLERGIES: No Known Drug Allergies (NKDA) ENVIRONMENTAL ALLERGIES: None Known - Substance Allergies None Known - Other Allergies None Known NURSING: - Shower allowing shower - Bladder care per protocol - Skin care per protocol PRECAUTIONS: - Weight Bearing Precaution WBAT left LE ACTIVITIES OOB only with supervision THERAPIES: - Occupational Therapy Evaluate and Treat. Visual Perceptual Training. Cognitive Retraining. - Speech Therapy Cognitive Training. Memory Strategies. Expressive Language Skills. Speech Intelligibility Training. R eceptive Language Skills. Dysphagia Therapy. - Physical Therapy Evaluate and Treat. PHYSICAL EXAM - Gen Alert and awake Lying in bed No apparent distress Oriented to: person, time, and place - Skin No beakdown No abnormalities - Eyes No abnormalities - ENMT No abnormalities - Neck No abnormalities - CVS RRR - Chest No abnormalities - Resp Clear to auscultation - Abd + bowel sounds - GI nondistended Deferred - No abnormalities - Ext Mild left lower extremity edema. - MSK 0/5 strength in the left upper extremity and 2+/5 weakness in left lower extremity. - Neuro 0/5 strength in the left upper extremity and 2+/5 weakness in left lower extremity. - Psych No abnormalities ASSESSMENT: Pt. is a 78 yo Right-handed white male.On 06/25/2018 Pt. presented to [facility] with sudden on set of left-side weakness.On 06/25/2018 he was admitted to [facility] with diagnosis Right MCA. His impairment category is Stroke 01 - Left Body (Right Brain) (01.1).Pre-morbidly, Pt. was independ ent/mod-I in Self-Care, Sphincter Control, Transfers Control, Locomotion, Communication, and Social C ognition; and he had good Sphincter Control.Currently, he has deficits of Self-Care, Transfers Contro l, Locomotion, Communication, Social Cognition, Endurance, Balance, and Safety Awareness.Pt. is now r eferred to [facility] for acute in-patient rehabilitation in order to maximize patient's functional independence in activities of daily living, strength, ROM, and mobility.- Rehab Goal Patient has realistic goal of being discharged at assistance level 6-Maria E to reside at Home with Fam linda/Relatives. MDM/PLAN: - Physical Therapy Gait dysfunction - to improve, our physical therapists will perform initial evaluation of pt's statu s upon admission and devise an individualized program for Gait Training, and Wheel Chair mobility Inability to transfer - to improve, our physical therapists will perform initial evaluation of pt's status upon admission and devise an individualized program for Bed mobility Need for home safety evaluation - to improve, our physical therapists will perform initial evaluatio n of pt's status upon admission and devise an individualized program for Home Evaluation Need in caregiver upon discharge - to improve, our physical therapists will perform initial evaluati on of pt's status upon admission and devise an individualized program for Caregiver Training Edema - to improve, our physical therapists will perform initial evaluation of pt's status upon admi ssion and devise an individualized program for Elevation Training, and Lymphedema Therapy New precaution - to improve, our physical therapists will perform initial evaluation of pt's status upon admission and devise an individualized program for Patient precaution education Poor balance - to improve, our physical therapists will perform initial evaluation of pt's status up on admission and devise an individualized program for Balance Training Poor endurance - to improve, our physical therapists will perform initial evaluation of pt's status upon admission and devise an individualized program for Endurance Training Weakness - to improve, our physical therapists will perform initial evaluation of pt's status upon a dmission and devise an individualized program for Aquatic Therapy, Neuromuscular Reeducation, and Str engthening Achieving independence - to improve, our physical therapists will perform initial evaluation of pt's status upon admission and devise an individualized program for Community Reintegration Activities - Occupational Therapy ADL deficits - to improve, our occupation therapists will perform initial evaluation of pt's status upon admission and devise an individualized program for Bathing, Bed mobility, Community Reintegratio n, Cooking, Dressing, Eating, Fine Motor Skills, Grooming, Homemaking, Kitchen Mobility, Laundry, Pat ient Education, Safety Awareness, Splinting - Positioning, Transfers(Toilet, Tub, Shower), and Wheel Chair Management Cognitive deficits - to improve, our occupation therapists will perform initial evaluation of pt's s tatus upon admission and devise an individualized program for Cognition - orientation Need for care coordinator - to improve, our occupation therapists will perform initial evaluation of pt's status upon admission and devise an individualized program for Caregiver Training Weakness - to improve, our occupation therapists will perform initial evaluation of pt's status upon admission and devise an individualized program for Aquatic Therapy, Balance, Endurance, UE ROM, and UE strengthening - Diet Type Continue Regular - Diet - Liquid Texture Continue Thin - Tube Feed Continue N/A - Bladder care per protocol - Weight Bearing Precaution WBAT left LE - Skin care per protocol - Diet - Solid Texture Continue Regular Continue Mechanical Soft (Ground) - Shower allowing shower for Dementia, TBI, Stroke, or others FUNCTIONAL STATUS: UPDATED AT WEEKLY TEAM CONFERENCE - Bladder Same accident frequency: 7-Ind - No accidents in the past 7 days - Bowel Same accident frequency: 7-Ind - No accidents in the past 7 days - Walking Same score based on distance walked: 0(N/A) - Wheelchair Same score based on distance traveled: 0(N/A) FUNCTIONAL STATUS: - Self-Care A. Eating sup B. Grooming Anil C. Bathing maxA D. Dressing - Upper Anil E. Dressing - Lower maxA F. Toileting maxA - Sphincter Control G: Bladder control Ind H: Bowel control Ind - Transfers Control I. Bed/Chair/Wheelchair maxA J. Toilet maxA K. Tub/Shower ADNO - Locomotion L. Walk/Wheelchair (C) Dep L. Walk/Wheelchair (W) Dep M. Stairs ADNO - Communication N. Comprehension (B) Anil O. Expression (B) Anil - Social Cognition P. Social Interaction Anil Q. Problem Solving Anil R. Memory Anil - Endurance Fair - Balance Poor - Safety Awareness Fair CURRENT FUNC. DEFICITS: Self-Care, Transfers Control, Locomotion, Communication, Social Cognition, Endurance, Balance, and Sa fety Awareness SIGNATURE PANEL: (CDT)
--- NOTE | 2018-08-31 02:23 | FAST ---
SHIFT START DATE/TIME: 08/30/2018 19:00 (CDT) SHIFT END DATE/TIME: 08/31/2018 07:00 (CDT) NAME PRICE ROGERS DATE OF : 1940 DATE OF ADMISSION: 07/05/2018 18:33 (CDT) PHONE: AGE: 78 N# [id number] GENDER: Male ENCOUNTER PHYSICIAN: Dr. Abdirahman Zepeda M.D. 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 EATING: Activity did not occur on this shift EATING - SCORE: 0-UNK GROOMING: Activity did not occur on this shift GROOMING - SCORE: 0-UNK BATHING: Activity did not occur on this shift BATHING - SCORE: 0-UNK DRESSING - UPPER BODY: Patient is not dressing in public clothing ARTICLES SCORE Total number of steps: 0 DRESSING - UPPER BODY - SCORE: 0-UNK DRESSING - LOWER BODY: Patient is not dressing in public clothing ARTICLES SCORE Total number of steps: 0 DRESSING - LOWER BODY - SCORE: 0-UNK TOILETING: TOILETING - STEP 1: Does the patient require the assistance of a person or device, or need extra time with toileting? Yes . TOILETING - STEP 2: Does the patient require the assistance of a helper? Yes. TOILETING - STEP 3: How much assistance does the patient require from the helper? Hands-on assistance from the helper TOILETING - STEP 4: Of the 3 tasks: 1) Adjusting clothing prior to use, 2) Cleansing of perineal area, 3) Adjusting clot merissa after use; How many tasks does the patient perform WITHOUT assistance of the helper? No tasks; h raquel performs all three tasks TOILETING - SCORE: 1-DEP BLADDER MANAGEMENT: BLADDER MANAGEMENT - STEP 1: Does the patient control the bladder completely and intentionally without equipment or devices or med ications, and is always continent? No. BLADDER MANAGEMENT - STEP 2: Does the patient require the assistance of a helper? Yes. BLADDER MANAGEMENT - STEP 3: How much assistance does the patient require from the helper? Patient requires contact assistance fro m the helper BLADDER MANAGEMENT - STEP 4: How much contact assistance does the patient require from the helper? Patient requires moderate mary tance, and performs 50% to 75% of bladder management tasks - [place] positions AND holds urinal or bed benítez BLADDER MANAGEMENT - SCORE: 3-MOD BOWEL MANAGEMENT: Activity did not occur on this shift BOWEL MANAGEMENT - SCORE: 7-IND TRANSFERS: BED, CHAIR, WHEELCHAIR: Activity did not occur on this shift TRANSFERS: BED, CHAIR, WHEELCHAIR - SCORE: 0-UNK TRANSFERS: TOILET: Activity did not occur on this shift TRANSFERS: TOILET - SCORE: 0-UNK TRANSFERS: SHOWER: Activity did not occur on this shift TRANSFERS: SHOWER - SCORE: 0-UNK TRANSFERS: TUB: Activity did not occur on this shift TRANSFERS: TUB - SCORE: 0-UNK LOCOMOTION: WALK: Activity did not occur on this shift LOCOMOTION: WALK - SCORE: 0-UNK LOCOMOTION: WHEELCHAIR: Activity did not occur on this shift LOCOMOTION: WHEELCHAIR - SCORE: 0-UNK COMPREHENSION: COMPREHENSION: TYPE: Both COMPREHENSION - STEP 1: Does the patient require help from a person or device, or need extra time to understand complex and a bstract ideas (such as current events, finances, discharge planning, medical issues, relationships, e tc)? No. COMPREHENSION - STEP 2: Does the patient need extra time, require an assistive device (such as glasses for visual comprehensi on or a hearing aid for auditory comprehension) or does s/he have mild difficulty understanding compl ex and abstract information? Yes. COMPREHENSION - SCORE: 6-SILVESTRE EXPRESSION EXPRESSION: TYPE: Both EXPRESSION - STEP 1: Does the patient require help from a person or device, or need extra time expressing complex and abst ract ideas (such as current events, finances, discharge planning, medical issues, relationships, etc) ? No. EXPRESSION - STEP 2: Does the patient need extra time, require an assistive device (such as augmentive communication syste m or a communication board), OR does s/he have mild difficulty expressing complex and abstract ideas (including mild dysarthria or mild word-find problems)? No. EXPRESSION - SCORE: 7-IND SOCIAL INTERACTION: SOCIAL INTERACTION - STEP 1: Does the patient require a helper to interact with others in social and therapeutic situations? No. SOCIAL INTERACTION - STEP 2: Does the patient need extra time in social situations, OR does s/he interact with staff, other patien ts, and family members ONLY in structured environments, OR does s/he require medication for social in teraction? Yes, patient requires medication for social interaction SOCIAL INTERACTION - SCORE: 6-SILVESTRE PROBLEM SOLVING: PROBLEM SOLVING - STEP 1: Does the patient need help from a person or device, or need extra time to solve complex problems such as managing a checking account or confronting interpersonal problems? Yes. PROBLEM SOLVING - STEP 2: Does the patient solve basic routine problems half or more of the time? Yes. PROBLEM SOLVING - STEP 3: How often does the patient need help to solve basic routine problems? 10%-24% of the time PROBLEM SOLVING - SCORE: 4-MIN MEMORY: MEMORY - STEP 1: Does the patient need help from a person or device, or need extra time to remember frequently encount ered people, daily routines, and executing requests? No. MEMORY - STEP 2: Does the patient have slight difficulty recognizing frequently encountered people, daily routines, or executing requests without the need for repetition or using self-initiated or environmental cues to remember? Yes. MEMORY - SCORE: 6-SILVESTRE
[2018-08-31] MEDS: CITALOPRAM 10 MG TABLET PO SCH (08:37)
[2018-08-31] MEDS: ACETAMINOPHEN 500 MG TAB PO PRN ×2 (08:39→13:13)
[2018-08-31] MEDS: MAGNESIUM OXIDE 400 MG TAB PO SCH ×2 (08:39→21:00)
[2018-08-31] MEDS: FLECAINIDE 100 MG TAB PO SCH ×2 (08:40→21:14)
[2018-08-31] MEDS: LISINOPRIL 5 MG TAB PO SCH (08:41)
[2018-08-31] MEDS: APIXABAN 2.5 MG TABLET PO SCH ×2 (08:41→21:15)
[2018-08-31] MEDS: GABAPENTIN 300 MG CAP PO SCH ×3 (08:42→21:14)
[2018-08-31] MEDS: FUROSEMIDE 20 MG TABLET PO SCH (08:42)
[2018-08-31] MEDS: CYANOCOBALAMIN 1,000 MCG TAB PO SCH (08:43)
[2018-08-31] MEDS: LIDOCAINE 5% PATCH TOP SCH (08:43)
[2018-08-31] MEDS: ONDANSETRON 4 MG (ODT) TAB PO PRN (09:12)
[2018-08-31] MEDS: VALSARTAN 80 MG TAB PO SCH (11:32)
--- NOTE | 2018-08-31 11:52 | FAST ---
ENCOUNTER DATE AND TIME: 08/31/2018 08:00 (CDT) NAME PRICE ROGERS DATE OF : 1940 DATE OF ADMISSION: 07/05/2018 18:33 (CDT) PHONE: AGE: 78 SSN# [id number] GENDER: Male ENCOUNTER PHYSICIAN: Dr. Abdirahman Zepeda M.D. 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 EATING: Activity did not occur on this shift EATING - SCORE: 0-UNK GROOMING: GROOMING - STEP 1: Does the patient require the assistance of a person or device, or need extra time when grooming? Yes. GROOMING - STEP 2: Does the patient require the assistance of a helper? Yes. GROOMING - STEP 3: How much assistance does the patient require from the helper? Cuing, coaxing, instructions, or encour agement for completion of grooming GROOMING - SCORE: 5-SUP BATHING: Activity did not occur on this shift Abdomen Buttocks Chest Left arm Left lower leg and foot Left upper leg Perineal area Right arm Right lower leg and foot Right upper leg BATHING - SCORE: 0-UNK DRESSING - UPPER BODY: T-shirt/pullover shirt (four steps) ARTICLES SCORE Total number of steps: 4 DRESSING - UPPER BODY - STEP 1: Does the patient require help from a person or device, or need extra time when dressing above the [address]? Yes. DRESSING - UPPER BODY - STEP 2: Does the patient require the assistance of a helper? Yes. DRESSING - UPPER BODY - STEP 3: Does the helper touch the patient while dressing? Yes. DRESSING - UPPER BODY - STEP 4: How many of the total steps does the patient complete on his/her own? 4 DRESSING - UPPER BODY - SCORE: 4-MIN DRESSING - LOWER BODY: Elastic waist pants (three steps) Slip-on shoe - Left foot (one step) Slip-on shoe - Right foot (one step) Underwear (three steps) ARTICLES SCORE Total number of steps: 8 DRESSING - LOWER BODY - STEP 1: Does the patient require help from a person or device, or need extra time when dressing below the [address]? Yes. DRESSING - LOWER BODY - STEP 2: Does the patient require the assistance of a helper? Yes. DRESSING - LOWER BODY - STEP 3: Does the helper touch the patient while dressing? Yes. DRESSING - LOWER BODY - STEP 4: How many of the total steps does the patient complete on his/her own? 6 DRESSING - LOWER BODY - SCORE: 4-MIN TOILETING: TOILETING - STEP 1: Does the patient require the assistance of a person or device, or need extra time with toileting? Yes . TOILETING - STEP 2: Does the patient require the assistance of a helper? Yes. TOILETING - STEP 3: How much assistance does the patient require from the helper? Hands-on assistance from the helper TOILETING - STEP 4: Of the 3 tasks: 1) Adjusting clothing prior to use, 2) Cleansing of perineal area, 3) Adjusting clot merissa after use; How many tasks does the patient perform WITHOUT assistance of the helper? Two tasks TOILETING - SCORE: 3-MOD BLADDER MANAGEMENT: Activity did not occur on this shift BLADDER MANAGEMENT - SCORE: 7-IND BOWEL MANAGEMENT: Activity did not occur on this shift BOWEL MANAGEMENT - SCORE: 7-IND TRANSFERS: BED, CHAIR, WHEELCHAIR: Activity did not occur on this shift TRANSFERS: BED, CHAIR, WHEELCHAIR - SCORE: 0-UNK TRANSFERS: TOILET: TRANSFERS: TOILET - STEP 1: Does the patient require the assistance of a person or device, or need extra time with toilet transfe rs? Yes. TRANSFERS: TOILET - STEP 2: Does the patient require the assistance of a helper? Yes. TRANSFERS: TOILET - STEP 3: How much assistance does the patient require from the helper? Patient performs half or more of the tr ansferring tasks TRANSFERS: TOILET - STEP 4: Does the patient need only incidental help such as contact guard or steadying during toilet transfer? Yes. TRANSFERS: TOILET - SCORE: 4-MIN TRANSFERS: SHOWER: Activity did not occur on this shift TRANSFERS: SHOWER - SCORE: 0-UNK TRANSFERS: TUB: Activity did not occur on this shift TRANSFERS: TUB - SCORE: 0-UNK LOCOMOTION: WALK: Activity did not occur on this shift LOCOMOTION: WALK - SCORE: 0-UNK LOCOMOTION: WHEELCHAIR: Activity did not occur on this shift LOCOMOTION: WHEELCHAIR - SCORE: 0-UNK LOCOMOTION: STAIRS: Activity did not occur on this shift LOCOMOTION: STAIRS - SCORE: 0-UNK COMPREHENSION: COMPREHENSION: TYPE: Both COMPREHENSION - STEP 1: Does the patient require help from a person or device, or need extra time to understand complex and a bstract ideas (such as current events, finances, discharge planning, medical issues, relationships, e tc)? Yes. COMPREHENSION - STEP 2: Does the patient require help to understand questions or statements about basic needs or ideas (such as hunger, thirst, sleep, safety, daily schedule, room location, or discomfort) half or more of the t aneudy? No. COMPREHENSION - STEP 3: How often does the patient need help to understand directions and conversation about basic needs? Les s than 10% of the time COMPREHENSION - SCORE: 5-SUP EXPRESSION EXPRESSION: TYPE: Both EXPRESSION - STEP 1: Does the patient require help from a person or device, or need extra time expressing complex and abst ract ideas (such as current events, finances, discharge planning, medical issues, relationships, etc) ? No. EXPRESSION - STEP 2: Does the patient need extra time, require an assistive device (such as augmentive communication syste m or a communication board), OR does s/he have mild difficulty expressing complex and abstract ideas (including mild dysarthria or mild word-find problems)? Yes. EXPRESSION - SCORE: 6-SILVESTRE SOCIAL INTERACTION: SOCIAL INTERACTION - STEP 1: Does the patient require a helper to interact with others in social and therapeutic situations? No. SOCIAL INTERACTION - STEP 2: Does the patient need extra time in social situations, OR does s/he interact with staff, other patien ts, and family members ONLY in structured environments, OR does s/he require medication for social in teraction? Yes, patient requires medication for social interaction SOCIAL INTERACTION - SCORE: 6-SILVESTRE PROBLEM SOLVING: PROBLEM SOLVING - STEP 1: Does the patient need help from a person or device, or need extra time to solve complex problems such as managing a checking account or confronting interpersonal problems? Yes. PROBLEM SOLVING - STEP 2: Does the patient solve basic routine problems half or more of the time? Yes. PROBLEM SOLVING - STEP 3: How often does the patient need help to solve basic routine problems? Less than 10% of the time PROBLEM SOLVING - SCORE: 5-SUP MEMORY: MEMORY - STEP 1: Does the patient need help from a person or device, or need extra time to remember frequently encount ered people, daily routines, and executing requests? Yes. MEMORY - STEP 2: How often does the patient need help to remember frequently encountered people, daily routines, and e xecuting requests? 10% - 24% of the time MEMORY - SCORE: 4-MIN SIGNATURE PANEL: The following modified sections: Eating - Score, Grooming - Score, Bathing - Score, Dressing - Upper Body - Score, Dressing - Lower Body - Score, Toileting - Score, Transfers: Bed, Chair, Wheelchair - S core, Transfers: Toilet - Score, Transfers: Shower - Score, Transfers: Tub - Score, Comprehension - S core, Expression - Score, Social Interaction - Score, Problem Solving - Score, Memory - Score were [e lectronically] signed by Shanti Moreno OT on ThuAug 31 2018 11:51:14 T-0500 ([facility] T aneudy)
[2018-08-31] MEDS ORDERED: LOPERAMIDE HCL 2 MG CAPSULE PO PRN (13:30)
--- NOTE | 2018-08-31 14:18 | FAST ---
SHIFT START DATE/TIME: 08/31/2018 07:00 (CDT) SHIFT END DATE/TIME: 08/31/2018 19:00 (CDT) NAME PRICE ROGERS DATE OF : 1940 DATE OF ADMISSION: 07/05/2018 18:33 (CDT) PHONE: AGE: 78 N# [id number] GENDER: Male ENCOUNTER PHYSICIAN: Dr. Abdirahman Zepeda M.D. 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 EATING: EATING - STEP 1: Does the patient require the assistance of a person or device, or need extra time when eating? Yes. EATING - STEP 2: Does the patient require the assistance of a helper? No, patient only requires an assistive device, O R s/he takes more than reasonable time to eat, OR there is a safety concern, OR s/he requires modifie d food consistency EATING - SCORE: 6-SILVESTRE GROOMING: Activity did not occur on this shift GROOMING - SCORE: 0-UNK BATHING: Activity did not occur on this shift BATHING - SCORE: 0-UNK DRESSING - UPPER BODY: Activity did not occur on this shift ARTICLES SCORE Total number of steps: 0 DRESSING - UPPER BODY - SCORE: 0-UNK DRESSING - LOWER BODY: Activity did not occur on this shift ARTICLES SCORE Total number of steps: 0 DRESSING - LOWER BODY - SCORE: 0-UNK TOILETING: TOILETING - STEP 1: Does the patient require the assistance of a person or device, or need extra time with toileting? Yes . TOILETING - STEP 2: Does the patient require the assistance of a helper? Yes. TOILETING - STEP 3: How much assistance does the patient require from the helper? Hands-on assistance from the helper TOILETING - STEP 4: Of the 3 tasks: 1) Adjusting clothing prior to use, 2) Cleansing of perineal area, 3) Adjusting clot merissa after use; How many tasks does the patient perform WITHOUT assistance of the helper? Two tasks TOILETING - SCORE: 3-MOD BLADDER MANAGEMENT: BLADDER MANAGEMENT - STEP 1: Does the patient control the bladder completely and intentionally without equipment or devices or med ications, and is always continent? No. BLADDER MANAGEMENT - STEP 2: Does the patient require the assistance of a helper? No, patient requires and independently uses an a ssistive device, such as a urinal, bedpan, bedside commode, catheter, absorbent pad, or collecting de vice BLADDER MANAGEMENT - SCORE: 6-SILVESTRE BOWEL MANAGEMENT: Activity did not occur on this shift BOWEL MANAGEMENT - SCORE: 7-IND TRANSFERS: BED, CHAIR, WHEELCHAIR: TRANSFERS: BED, CHAIR, WHEELCHAIR - STEP 1: Does the patient require assistance of a person or device, or need extra time with bed, chair, or whe elchair transfers? Yes. TRANSFERS: BED, CHAIR, WHEELCHAIR - STEP 2: Does the patient require the assistance of a helper? Yes. TRANSFERS: BED, CHAIR, WHEELCHAIR - STEP 3: How much assistance does the patient require from the helper? Lifting of the patient TRANSFERS: BED, CHAIR, WHEELCHAIR - STEP 4: Does the helper lift the patient ONLY up? ONLY down? Up AND Down? ONLY up. TRANSFERS: BED, CHAIR, WHEELCHAIR - SCORE: 3-MOD TRANSFERS: TOILET: TRANSFERS: TOILET - STEP 1: Does the patient require the assistance of a person or device, or need extra time with toilet transfe rs? Yes. TRANSFERS: TOILET - STEP 2: Does the patient require the assistance of a helper? Yes. TRANSFERS: TOILET - STEP 3: How much assistance does the patient require from the helper? Patient performs half or more of the tr ansferring tasks TRANSFERS: TOILET - STEP 4: Does the patient need only incidental help such as contact guard or steadying during toilet transfer? No. Patient needs more than incidental help TRANSFERS: TOILET - SCORE: 3-MOD TRANSFERS: SHOWER: Activity did not occur on this shift TRANSFERS: SHOWER - SCORE: 0-UNK TRANSFERS: TUB: Activity did not occur on this shift TRANSFERS: TUB - SCORE: 0-UNK LOCOMOTION: WALK: Activity did not occur on this shift LOCOMOTION: WALK - SCORE: 0-UNK LOCOMOTION: WHEELCHAIR: Activity did not occur on this shift LOCOMOTION: WHEELCHAIR - SCORE: 0-UNK COMPREHENSION: COMPREHENSION: TYPE: Both COMPREHENSION - STEP 1: Does the patient require help from a person or device, or need extra time to understand complex and a bstract ideas (such as current events, finances, discharge planning, medical issues, relationships, e tc)? No. COMPREHENSION - STEP 2: Does the patient need extra time, require an assistive device (such as glasses for visual comprehensi on or a hearing aid for auditory comprehension) or does s/he have mild difficulty understanding compl ex and abstract information? Yes. COMPREHENSION - SCORE: 6-SILVESTRE EXPRESSION EXPRESSION: TYPE: Both EXPRESSION - STEP 1: Does the patient require help from a person or device, or need extra time expressing complex and abst ract ideas (such as current events, finances, discharge planning, medical issues, relationships, etc) ? No. EXPRESSION - STEP 2: Does the patient need extra time, require an assistive device (such as augmentive communication syste m or a communication board), OR does s/he have mild difficulty expressing complex and abstract ideas (including mild dysarthria or mild word-find problems)? Yes. EXPRESSION - SCORE: 6-SILVESTRE SOCIAL INTERACTION: SOCIAL INTERACTION - STEP 1: Does the patient require a helper to interact with others in social and therapeutic situations? No. SOCIAL INTERACTION - STEP 2: Does the patient need extra time in social situations, OR does s/he interact with staff, other patien ts, and family members ONLY in structured environments, OR does s/he require medication for social in teraction? Yes, patient needs extra time SOCIAL INTERACTION - SCORE: 6-SILVESTRE PROBLEM SOLVING: PROBLEM SOLVING - STEP 1: Does the patient need help from a person or device, or need extra time to solve complex problems such as managing a checking account or confronting interpersonal problems? No. PROBLEM SOLVING - STEP 2: Does the patient require extra time to make decisions or solve problems, OR does s/he have slight dif ficulty reading, initiating, or self-correcting in unfamiliar situations? Yes, patient needs extra ti me. PROBLEM SOLVING - SCORE: 6-SILVESTRE MEMORY: MEMORY - STEP 1: Does the patient need help from a person or device, or need extra time to remember frequently encount ered people, daily routines, and executing requests? No. MEMORY - STEP 2: Does the patient have slight difficulty recognizing frequently encountered people, daily routines, or executing requests without the need for repetition or using self-initiated or environmental cues to remember? Yes. MEMORY - SCORE: 6-SILVESTRE SIGNATURE PANEL: The following modified sections: Eating - Score, Grooming - Score, Bathing - Score, Dressing - Upper Body - Score, Dressing - Lower Body - Score, Toileting - Score, Bladder Management - Score, Bowel Man agement - Score, Transfers: Bed, Chair, Wheelchair - Score, Transfers: Toilet - Score, Transfers: Melissa wer - Score, Transfers: Tub - Score, Locomotion: Walk - Score, Locomotion: Wheelchair - Score, Compre hension - Score, Expression - Score, Social Interaction - Score, Problem Solving - Score, Memory - Sc ore were [electronically] signed by Wilmar Arboleda on ThuAug 31 2018 14:17:29 GMT-0500 (Central Daylight Time)
[2018-08-31 14:51] LABS: Albumin 3.5 g/dL (3.4-5.0); Bilirubin Direct 0.1 mg/dL (0-0.2); Bilirubin Total 0.4 mg/dL (0.2-1.0); Protein, Total 7.3 g/dL (6.4-8.2)
--- NOTE | 2018-08-31 15:02 | FAST ---
ENCOUNTER DATE AND TIME: 08/31/2018 08:00 (CDT) NAME PRICE ROGERS DATE OF : 1940 DATE OF ADMISSION: 07/05/2018 18:33 (CDT) PHONE: AGE: 78 SSN# [id number] GENDER: Male ENCOUNTER PHYSICIAN: Dr. Abdirahman Zepeda M.D. 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 EATING: Activity did not occur on this shift EATING - SCORE: 0-UNK GROOMING: Activity did not occur on this shift GROOMING - SCORE: 0-UNK BATHING: Activity did not occur on this shift BATHING - SCORE: 0-UNK DRESSING - UPPER BODY: Activity did not occur on this shift Patient is not dressing in public clothing ARTICLES SCORE Total number of steps: 0 DRESSING - UPPER BODY - SCORE: 0-UNK DRESSING - LOWER BODY: Activity did not occur on this shift Patient is not dressing in public clothing ARTICLES SCORE Total number of steps: 0 DRESSING - LOWER BODY - SCORE: 0-UNK TOILETING: Activity did not occur on this shift TOILETING - SCORE: 0-UNK BLADDER MANAGEMENT: Activity did not occur on this shift BLADDER MANAGEMENT - SCORE: 7-IND BOWEL MANAGEMENT: Activity did not occur on this shift BOWEL MANAGEMENT - SCORE: 7-IND TRANSFERS: BED, CHAIR, WHEELCHAIR: TRANSFERS: BED, CHAIR, WHEELCHAIR - STEP 1: Does the patient require assistance of a person or device, or need extra time with bed, chair, or whe elchair transfers? Yes. TRANSFERS: BED, CHAIR, WHEELCHAIR - STEP 2: Does the patient require the assistance of a helper? Yes. TRANSFERS: BED, CHAIR, WHEELCHAIR - STEP 3: How much assistance does the patient require from the helper? Only supervision TRANSFERS: BED, CHAIR, WHEELCHAIR - SCORE: 5-SUP TRANSFERS: TOILET: Activity did not occur on this shift TRANSFERS: TOILET - SCORE: 0-UNK TRANSFERS: SHOWER: Activity did not occur on this shift TRANSFERS: SHOWER - SCORE: 0-UNK TRANSFERS: TUB: Activity did not occur on this shift TRANSFERS: TUB - SCORE: 0-UNK LOCOMOTION: WALK: LOCOMOTION: WALK - STEP 1: Does the patient need help from a person or device, or need extra time to walk 150 feet? Yes. LOCOMOTION: WALK - STEP 2: How much assistance does the patient require to walk a minimum of 150 feet? Patient walks less than 1 50 feet - but more than 50 feet - with the assistance of only one helper LOCOMOTION: WALK - SCORE: 2-MAX LOCOMOTION: WHEELCHAIR: LOCOMOTION: WHEELCHAIR - STEP 1: Does the patient need help to go 150 feet in a wheelchair? Yes. LOCOMOTION: WHEELCHAIR - STEP 2: How much assistance does the patient need from the helper? Only supervision, cuing, or coaxing LOCOMOTION: WHEELCHAIR - SCORE: 5-SUP LOCOMOTION: STAIRS: Activity did not occur on this shift LOCOMOTION: STAIRS - SCORE: 0-UNK COMPREHENSION: COMPREHENSION - SCORE: 0-UNK EXPRESSION EXPRESSION - SCORE: 0-UNK SOCIAL INTERACTION: SOCIAL INTERACTION - SCORE: 0-UNK PROBLEM SOLVING: PROBLEM SOLVING - SCORE: 0-UNK MEMORY: MEMORY - SCORE: 0-UNK SIGNATURE PANEL: The following modified sections: Transfers: Bed, Chair, Wheelchair - Score, Transfers: Toilet - Score , Locomotion: Walk - Score, Locomotion: Wheelchair - Score, Locomotion: Stairs - Score were [electron daphney] signed by Skip Phillips PT on ThuAug 31 2018 15:02:37 T-0500 (Central Daylight Time)
--- NOTE | 2018-08-31 19:02 | R.PN ---
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 SUBJECTIVE: Pt denied any Shortness of Breath. Pt denied any depression. Patient states that pain is under control. Hgb 12.4, WBC 6.8, prealbumin 20.7. Functional transfers done with total assistance. He ambulated 170' with contact guard assistance using a right hand hemiwalker. Self-propelled wheelch air 150' with standby assistance. left hip x-ray shows no fractures. Therapeutic exercises done with contact guard assistance and multiple rest breaks. He had nausea, abdominal pain and loose stools. His LFTs were normal. VITAL SIGNS Temperature: 98.1 F SBP/DBP: 116/61 Pulse: 62 Resp: 16 MEDICATION ALLERGIES: No Known Drug Allergies (NKDA) ENVIRONMENTAL ALLERGIES: None Known - Substance Allergies None Known - Other Allergies None Known NURSING: - Shower allowing shower - Bladder care per protocol - Skin care per protocol PRECAUTIONS: - Weight Bearing Precaution WBAT left LE ACTIVITIES OOB only with supervision THERAPIES: - Occupational Therapy Evaluate and Treat. Visual Perceptual Training. Cognitive Retraining. - Speech Therapy Cognitive Training. Memory Strategies. Expressive Language Skills. Speech Intelligibility Training. R eceptive Language Skills. Dysphagia Therapy. - Physical Therapy Evaluate and Treat. PHYSICAL EXAM - Gen Alert and awake Lying in bed No apparent distress Oriented to: person, time, and place - Skin No beakdown No abnormalities - Eyes No abnormalities - ENMT No abnormalities - Neck No abnormalities - CVS RRR - Chest No abnormalities - Resp Clear to auscultation - Abd + bowel sounds - GI nondistended Deferred - No abnormalities - Ext Mild left lower extremity edema. - MSK 0/5 strength in the left upper extremity and 2+/5 weakness in left lower extremity. - Neuro 0/5 strength in the left upper extremity and 2+/5 weakness in left lower extremity. - Psych No abnormalities ASSESSMENT: Pt. is a 78 yo Right-handed white male.On 06/25/2018 Pt. presented to [facility] with sudden on set of left-side weakness.On 06/25/2018 he was admitted to [facility] with diagnosis Right MCA. His impairment category is Stroke 01 - Left Body (Right Brain) (01.1).Pre-morbidly, Pt. was independ ent/mod-I in Self-Care, Sphincter Control, Transfers Control, Locomotion, Communication, and Social C ognition; and he had good Sphincter Control.Currently, he has deficits of Self-Care, Transfers Contro l, Locomotion, Communication, Social Cognition, Endurance, Balance, and Safety Awareness.Pt. is now r eferred to [facility] for acute in-patient rehabilitation in order to maximize patient's functional independence in activities of daily living, strength, ROM, and mobility.- Rehab Goal Patient has realistic goal of being discharged at assistance level 6-Maria E to reside at Home with Fam linda/Relatives. MDM/PLAN: - Physical Therapy Gait dysfunction - to improve, our physical therapists will perform initial evaluation of pt's statu s upon admission and devise an individualized program for Gait Training, and Wheel Chair mobility Inability to transfer - to improve, our physical therapists will perform initial evaluation of pt's status upon admission and devise an individualized program for Bed mobility Need for home safety evaluation - to improve, our physical therapists will perform initial evaluatio n of pt's status upon admission and devise an individualized program for Home Evaluation Need in caregiver upon discharge - to improve, our physical therapists will perform initial evaluati on of pt's status upon admission and devise an individualized program for Caregiver Training Edema - to improve, our physical therapists will perform initial evaluation of pt's status upon admi ssion and devise an individualized program for Elevation Training, and Lymphedema Therapy New precaution - to improve, our physical therapists will perform initial evaluation of pt's status upon admission and devise an individualized program for Patient precaution education Poor balance - to improve, our physical therapists will perform initial evaluation of pt's status up on admission and devise an individualized program for Balance Training Poor endurance - to improve, our physical therapists will perform initial evaluation of pt's status upon admission and devise an individualized program for Endurance Training Weakness - to improve, our physical therapists will perform initial evaluation of pt's status upon a dmission and devise an individualized program for Aquatic Therapy, Neuromuscular Reeducation, and Str engthening Achieving independence - to improve, our physical therapists will perform initial evaluation of pt's status upon admission and devise an individualized program for Community Reintegration Activities - Occupational Therapy ADL deficits - to improve, our occupation therapists will perform initial evaluation of pt's status upon admission and devise an individualized program for Bathing, Bed mobility, Community Reintegratio n, Cooking, Dressing, Eating, Fine Motor Skills, Grooming, Homemaking, Kitchen Mobility, Laundry, Pat ient Education, Safety Awareness, Splinting - Positioning, Transfers(Toilet, Tub, Shower), and Wheel Chair Management Cognitive deficits - to improve, our occupation therapists will perform initial evaluation of pt's s tatus upon admission and devise an individualized program for Cognition - orientation Need for foster care worker - to improve, our occupation therapists will perform initial evaluation of pt's status upon admission and devise an individualized program for Caregiver Training Weakness - to improve, our occupation therapists will perform initial evaluation of pt's status upon admission and devise an individualized program for Aquatic Therapy, Balance, Endurance, UE ROM, and UE strengthening - Diet Type Continue Regular - Diet - Liquid Texture Continue Thin - Tube Feed Continue N/A - Bladder care per protocol - Weight Bearing Precaution WBAT left LE - Skin care per protocol - Diet - Solid Texture Continue Regular Continue Mechanical Soft (Ground) - Shower allowing shower for Dementia, TBI, Stroke, or others FUNCTIONAL STATUS: UPDATED AT WEEKLY TEAM CONFERENCE - Bladder Same accident frequency: 7-Ind - No accidents in the past 7 days - Bowel Same accident frequency: 7-Ind - No accidents in the past 7 days - Walking Same score based on distance walked: 0(N/A) - Wheelchair Same score based on distance traveled: 0(N/A) FUNCTIONAL STATUS: - Self-Care A. Eating sup B. Grooming Anil C. Bathing maxA D. Dressing - Upper Anil E. Dressing - Lower maxA F. Toileting maxA - Sphincter Control G: Bladder control Ind H: Bowel control Ind - Transfers Control I. Bed/Chair/Wheelchair maxA J. Toilet maxA K. Tub/Shower ADNO - Locomotion L. Walk/Wheelchair (C) Dep L. Walk/Wheelchair (W) Dep M. Stairs ADNO - Communication N. Comprehension (B) Anil O. Expression (B) Anil - Social Cognition P. Social Interaction Anil Q. Problem Solving Anil R. Memory Anil - Endurance Fair - Balance Poor - Safety Awareness Fair CURRENT FUNC. DEFICITS: Self-Care, Transfers Control, Locomotion, Communication, Social Cognition, Endurance, Balance, and Sa fety Awareness SIGNATURE PANEL: (CDT)
[2018-08-31] MEDS: TAMSULOSIN 0.4 MG SR CAP PO SCH (21:14)
[2018-08-31] MEDS: ATORVASTATIN 10 MG TAB PO SCH (21:15)
[2018-09-01] MEDS: ONDANSETRON 4 MG (ODT) TAB PO PRN (06:12)
[2018-09-01] MEDS: ACETAMINOPHEN 500 MG TAB PO PRN (06:12)
[2018-09-01] MEDS: CITALOPRAM 10 MG TABLET PO SCH (08:23)
[2018-09-01] MEDS: CYANOCOBALAMIN 1,000 MCG TAB PO SCH (08:24)
[2018-09-01] MEDS: FUROSEMIDE 20 MG TABLET PO SCH (08:24)
[2018-09-01] MEDS: FLECAINIDE 100 MG TAB PO SCH ×2 (08:25→20:28)
[2018-09-01] MEDS: LISINOPRIL 5 MG TAB PO SCH (08:25)
[2018-09-01] MEDS: GABAPENTIN 300 MG CAP PO SCH ×3 (08:26→20:29)
[2018-09-01] MEDS: APIXABAN 2.5 MG TABLET PO SCH ×2 (08:26→20:28)
[2018-09-01] MEDS: MAGNESIUM OXIDE 400 MG TAB PO SCH ×2 (08:26→20:29)
[2018-09-01] MEDS ORDERED: PROMETHAZINE 25 MG TABLET PO PRN (09:01)
[2018-09-01] MEDS: VALSARTAN 80 MG TAB PO SCH (12:00)
[2018-09-01] MEDS: TAMSULOSIN 0.4 MG SR CAP PO SCH (20:28)
[2018-09-01] MEDS: ATORVASTATIN 10 MG TAB PO SCH (20:29)
[2018-09-02] MEDS: ACETAMINOPHEN 500 MG TAB PO PRN ×2 (01:20→08:06)
--- NOTE | 2018-09-02 01:51 | FAST ---
SHIFT START DATE/TIME: 09/01/2018 19:00 (CDT) SHIFT END DATE/TIME: 09/02/2018 07:00 (CDT) NAME PRICE ROGERS DATE OF : 1940 DATE OF ADMISSION: 07/05/2018 18:33 (CDT) PHONE: AGE: 78 N# [id number] GENDER: Male ENCOUNTER PHYSICIAN: Dr. Abdirahman Zepeda M.D. 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 EATING: Activity did not occur on this shift EATING - SCORE: 0-UNK GROOMING: Wash, rinse, and dry hands GROOMING - STEP 1: Does the patient require the assistance of a person or device, or need extra time when grooming? Yes. GROOMING - STEP 2: Does the patient require the assistance of a helper? Yes. GROOMING - STEP 3: How much assistance does the patient require from the helper? Incidental touching assistance from the helper while grooming GROOMING - SCORE: 4-MIN BATHING: Activity did not occur on this shift BATHING - SCORE: 0-UNK DRESSING - UPPER BODY: Patient is not dressing in public clothing ARTICLES SCORE Total number of steps: 0 DRESSING - UPPER BODY - SCORE: 0-UNK DRESSING - LOWER BODY: Patient is not dressing in public clothing ARTICLES SCORE Total number of steps: 0 DRESSING - LOWER BODY - SCORE: 0-UNK TOILETING: TOILETING - STEP 1: Does the patient require the assistance of a person or device, or need extra time with toileting? Yes . TOILETING - STEP 2: Does the patient require the assistance of a helper? Yes. TOILETING - STEP 3: How much assistance does the patient require from the helper? Hands-on assistance from the helper TOILETING - STEP 4: Of the 3 tasks: 1) Adjusting clothing prior to use, 2) Cleansing of perineal area, 3) Adjusting clot merissa after use; How many tasks does the patient perform WITHOUT assistance of the helper? No tasks; h raquel performs all three tasks TOILETING - SCORE: 1-DEP BLADDER MANAGEMENT: BLADDER MANAGEMENT - STEP 1: Does the patient control the bladder completely and intentionally without equipment or devices or med ications, and is always continent? No. BLADDER MANAGEMENT - STEP 2: Does the patient require the assistance of a helper? Yes. BLADDER MANAGEMENT - STEP 3: How much assistance does the patient require from the helper? Only set-up of equipment - such as plac ing it within reach of the patient or emptying a device - to maintain either satisfactory voiding pat tern or managing an external device, such as an absorbent pad, ileal device, or catheter BLADDER MANAGEMENT - SCORE: 5-SUP BOWEL MANAGEMENT: BOWEL MANAGEMENT - STEP 1: Does the patient control bowels completely and intentionally without equipment devices or medications AND is always continent? No. BOWEL MANAGEMENT - STEP 2: Does the patient require the assistance of a helper? No, patient requires medication for control such as stool softeners, suppositories, laxatives, enemas, or OTC medications BOWEL MANAGEMENT - SCORE: 6-SILVESTRE TRANSFERS: BED, CHAIR, WHEELCHAIR: TRANSFERS: BED, CHAIR, WHEELCHAIR - STEP 1: Does the patient require assistance of a person or device, or need extra time with bed, chair, or whe elchair transfers? Yes. TRANSFERS: BED, CHAIR, WHEELCHAIR - STEP 2: Does the patient require the assistance of a helper? Yes. TRANSFERS: BED, CHAIR, WHEELCHAIR - STEP 3: How much assistance does the patient require from the helper? Lifting of the legs TRANSFERS: BED, CHAIR, WHEELCHAIR - STEP 4: How many legs does the patient require the helper to lift? both legs TRANSFERS: BED, CHAIR, WHEELCHAIR - SCORE: 3-MOD TRANSFERS: TOILET: TRANSFERS: TOILET - STEP 1: Does the patient require the assistance of a person or device, or need extra time with toilet transfe rs? Yes. TRANSFERS: TOILET - STEP 2: Does the patient require the assistance of a helper? Yes. TRANSFERS: TOILET - STEP 3: How much assistance does the patient require from the helper? Patient performs half or more of the tr ansferring tasks TRANSFERS: TOILET - STEP 4: Does the patient need only incidental help such as contact guard or steadying during toilet transfer? No. Patient needs more than incidental help TRANSFERS: TOILET - SCORE: 3-MOD TRANSFERS: SHOWER: Activity did not occur on this shift TRANSFERS: SHOWER - SCORE: 0-UNK TRANSFERS: TUB: Activity did not occur on this shift TRANSFERS: TUB - SCORE: 0-UNK LOCOMOTION: WALK: Activity did not occur on this shift LOCOMOTION: WALK - SCORE: 0-UNK LOCOMOTION: WHEELCHAIR: Activity did not occur on this shift LOCOMOTION: WHEELCHAIR - SCORE: 0-UNK COMPREHENSION: COMPREHENSION: TYPE: Both COMPREHENSION - STEP 1: Does the patient require help from a person or device, or need extra time to understand complex and a bstract ideas (such as current events, finances, discharge planning, medical issues, relationships, e tc)? No. COMPREHENSION - STEP 2: Does the patient need extra time, require an assistive device (such as glasses for visual comprehensi on or a hearing aid for auditory comprehension) or does s/he have mild difficulty understanding compl ex and abstract information? Yes. COMPREHENSION - SCORE: 6-SILVESTRE EXPRESSION EXPRESSION: TYPE: Both EXPRESSION - STEP 1: Does the patient require help from a person or device, or need extra time expressing complex and abst ract ideas (such as current events, finances, discharge planning, medical issues, relationships, etc) ? No. EXPRESSION - STEP 2: Does the patient need extra time, require an assistive device (such as augmentive communication syste m or a communication board), OR does s/he have mild difficulty expressing complex and abstract ideas (including mild dysarthria or mild word-find problems)? No. EXPRESSION - SCORE: 7-IND SOCIAL INTERACTION: SOCIAL INTERACTION - STEP 1: Does the patient require a helper to interact with others in social and therapeutic situations? No. SOCIAL INTERACTION - STEP 2: Does the patient need extra time in social situations, OR does s/he interact with staff, other patien ts, and family members ONLY in structured environments, OR does s/he require medication for social in teraction? Yes, patient requires medication for social interaction SOCIAL INTERACTION - SCORE: 6-SILVESTRE PROBLEM SOLVING: PROBLEM SOLVING - STEP 1: Does the patient need help from a person or device, or need extra time to solve complex problems such as managing a checking account or confronting interpersonal problems? Yes. PROBLEM SOLVING - STEP 2: Does the patient solve basic routine problems half or more of the time? Yes. PROBLEM SOLVING - STEP 3: How often does the patient need help to solve basic routine problems? 10%-24% of the time PROBLEM SOLVING - SCORE: 4-MIN MEMORY: MEMORY - STEP 1: Does the patient need help from a person or device, or need extra time to remember frequently encount ered people, daily routines, and executing requests? No. MEMORY - STEP 2: Does the patient have slight difficulty recognizing frequently encountered people, daily routines, or executing requests without the need for repetition or using self-initiated or environmental cues to remember? Yes. MEMORY - SCORE: 6-SILVESTRE SIGNATURE PANEL: The following modified sections: Eating - Score, Grooming - Score, Dressing - Upper Body - Score, Jitendra ssing - Lower Body - Score, Toileting - Score, Bladder Management - Score, Bowel Management - Score, Transfers: Bed, Chair, Wheelchair - Score, Transfers: Toilet - Score, Transfers: Shower - Score, Good sfers: Tub - Score, Locomotion: Walk - Score, Locomotion: Wheelchair - Score, Comprehension - Score, Expression - Score, Social Interaction - Score, Problem Solving - Score, Memory - Score were [electro nically] signed by Valerie Almanzar CNA on ThuSep 02 2018 01:50:38 GMT-0500 (Central Daylight Time)
[2018-09-02 06:10] LABS: RBC Red Blood Cell Count 3.85 M/uL (4.33-5.43)
[2018-09-02 06:11] LABS: Absolute Lymphocytes (CBC) 1.7 K/uL (0.7-4.9); Basophils % 0.7 % (0-1.3); Lymphocytes % 26.3 % (15.3-44.8); MPV 8.8 fL (7.6-11.3)
[2018-09-02 06:24] LABS: Potassium 4.2 mmol/L (3.5-5.1); Prealbumin 20.9 mg/dL (20-40)
[2018-09-02] MEDS: MAGNESIUM OXIDE 400 MG TAB PO SCH ×2 (08:00→20:22)
[2018-09-02] MEDS: FLECAINIDE 100 MG TAB PO SCH ×2 (08:00→20:21)
[2018-09-02] MEDS: GABAPENTIN 300 MG CAP PO SCH ×3 (08:01→20:22)
[2018-09-02] MEDS: LIDOCAINE 5% PATCH TOP SCH (08:01)
[2018-09-02] MEDS: FUROSEMIDE 20 MG TABLET PO SCH (08:02)
[2018-09-02] MEDS: CITALOPRAM 10 MG TABLET PO SCH (08:03)
[2018-09-02] MEDS: LISINOPRIL 5 MG TAB PO SCH (08:04)
[2018-09-02] MEDS: APIXABAN 2.5 MG TABLET PO SCH ×2 (08:04→20:21)
[2018-09-02] MEDS: CYANOCOBALAMIN 1,000 MCG TAB PO SCH (08:06)
--- NOTE | 2018-09-02 09:07 | FAST ---
SHIFT START DATE/TIME: 09/02/2018 07:00 (CDT) SHIFT END DATE/TIME: 09/02/2018 19:00 (CDT) NAME PRICE ROGERS DATE OF : 1940 DATE OF ADMISSION: 07/05/2018 18:33 (CDT) PHONE: AGE: 78 N# [id number] GENDER: Male ENCOUNTER PHYSICIAN: Dr. Abdirahman Zepeda M.D. 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 EATING: EATING - STEP 1: Does the patient require the assistance of a person or device, or need extra time when eating? Yes. EATING - STEP 2: Does the patient require the assistance of a helper? Yes. EATING - STEP 3: Does the patient perform half or more of the eating tasks? Yes. EATING - STEP 4: Does the patient need only supervision, cuing, coaxing OR help to apply an orthosis OR help to cut fo od, open containers, pour liquids, or butter bread? Yes. EATING - SCORE: 5-SUP GROOMING: Oral care Wash, rinse, and dry face GROOMING - STEP 1: Does the patient require the assistance of a person or device, or need extra time when grooming? Yes. GROOMING - STEP 2: Does the patient require the assistance of a helper? No. The patient only requires an assistive devic e, OR takes more than reasonable time to groom, OR there is a concern for safety as the patient groom s GROOMING - SCORE: 6-SILVESTRE BATHING: Activity did not occur on this shift BATHING - SCORE: 0-UNK DRESSING - UPPER BODY: Activity did not occur on this shift ARTICLES SCORE Total number of steps: 0 DRESSING - UPPER BODY - SCORE: 0-UNK DRESSING - LOWER BODY: Elastic waist pants (three steps) ARTICLES SCORE Total number of steps: 3 DRESSING - LOWER BODY - STEP 1: Does the patient require help from a person or device, or need extra time when dressing below the harry st? Yes. DRESSING - LOWER BODY - STEP 2: Does the patient require the assistance of a helper? Yes. DRESSING - LOWER BODY - STEP 3: Does the helper touch the patient while dressing? Yes. DRESSING - LOWER BODY - STEP 4: How many of the total steps does the patient complete on his/her own? 1 DRESSING - LOWER BODY - STEP 5: Does patient require total assistance for dressing below the waist such as the helper holding clothin g and performing basically all the activities? Yes. DRESSING - LOWER BODY - SCORE: 1-DEP TOILETING: TOILETING - STEP 1: Does the patient require the assistance of a person or device, or need extra time with toileting? Yes . TOILETING - STEP 2: Does the patient require the assistance of a helper? Yes. TOILETING - STEP 3: How much assistance does the patient require from the helper? Hands-on assistance from the helper TOILETING - STEP 4: Of the 3 tasks: 1) Adjusting clothing prior to use, 2) Cleansing of perineal area, 3) Adjusting clot merissa after use; How many tasks does the patient perform WITHOUT assistance of the helper? One task TOILETING - SCORE: 2-MAX BLADDER MANAGEMENT: BLADDER MANAGEMENT - STEP 1: Does the patient control the bladder completely and intentionally without equipment or devices or med ications, and is always continent? Yes. BLADDER MANAGEMENT - SCORE: 7-IND BLADDER MANAGEMENT - FREQUENCY OF ACCIDENTS: BLADDER MANAGEMENT(FA) - STEP 1: How many accidents has the patient had during the current shift? 0 BOWEL MANAGEMENT: BOWEL MANAGEMENT - STEP 1: Does the patient control bowels completely and intentionally without equipment devices or medications AND is always continent? Yes. BOWEL MANAGEMENT - SCORE: 7-IND BOWEL MANAGEMENT - FREQUENCY OF ACCIDENTS: BOWEL MANAGEMENT(FA) - STEP 1: How many accidents has the patient had during the current shift? 0 TRANSFERS: BED, CHAIR, WHEELCHAIR: TRANSFERS: BED, CHAIR, WHEELCHAIR - STEP 1: Does the patient require assistance of a person or device, or need extra time with bed, chair, or whe elchair transfers? Yes. TRANSFERS: BED, CHAIR, WHEELCHAIR - STEP 2: Does the patient require the assistance of a helper? Yes. TRANSFERS: BED, CHAIR, WHEELCHAIR - STEP 3: How much assistance does the patient require from the helper? Lifting of the patient TRANSFERS: BED, CHAIR, WHEELCHAIR - STEP 4: Does the helper lift the patient ONLY up? ONLY down? Up AND Down? ONLY up. TRANSFERS: BED, CHAIR, WHEELCHAIR - SCORE: 3-MOD TRANSFERS: TOILET: TRANSFERS: TOILET - STEP 1: Does the patient require the assistance of a person or device, or need extra time with toilet transfe rs? Yes. TRANSFERS: TOILET - STEP 2: Does the patient require the assistance of a helper? Yes. TRANSFERS: TOILET - STEP 3: How much assistance does the patient require from the helper? Patient performs half or more of the tr ansferring tasks TRANSFERS: TOILET - STEP 4: Does the patient need only incidental help such as contact guard or steadying during toilet transfer? No. Patient needs more than incidental help TRANSFERS: TOILET - SCORE: 3-MOD TRANSFERS: SHOWER: Activity did not occur on this shift TRANSFERS: SHOWER - SCORE: 0-UNK TRANSFERS: TUB: Activity did not occur on this shift TRANSFERS: TUB - SCORE: 0-UNK LOCOMOTION: WALK: Activity did not occur on this shift LOCOMOTION: WALK - SCORE: 0-UNK LOCOMOTION: WHEELCHAIR: Activity did not occur on this shift LOCOMOTION: WHEELCHAIR - SCORE: 0-UNK COMPREHENSION: COMPREHENSION - SCORE: 0-UNK EXPRESSION EXPRESSION - SCORE: 0-UNK SOCIAL INTERACTION: SOCIAL INTERACTION - SCORE: 0-UNK PROBLEM SOLVING: PROBLEM SOLVING - SCORE: 0-UNK MEMORY: MEMORY - SCORE: 0-UNK SIGNATURE PANEL: The following modified sections: Eating - Score, Grooming - Score, Bathing - Score, Dressing - Upper Body - Score, Dressing - Lower Body - Score, Toileting - Score, Bladder Management - Score, Bowel Man agement - Score, Transfers: Bed, Chair, Wheelchair - Score, Transfers: Toilet - Score, Transfers: Melissa wer - Score, Transfers: Tub - Score, Locomotion: Walk - Score, Locomotion: Wheelchair - Score, Compre hension - Score, Expression - Score, Social Interaction - Score, Problem Solving - Score, Memory - Sc ore were [electronically] signed by Pily Conrad CNA on ThuSep 02 2018 09:06:37 GMT-0500 (Centra l Daylight Time)
[2018-09-02] MEDS: ONDANSETRON 4 MG (ODT) TAB PO PRN (10:08)
[2018-09-02] MEDS: [UNRECOGNIZED DRUG - MIXTURE] EACH EYE PRN ×2 (14:15→20:29)
--- NOTE | 2018-09-02 14:25 | FAST ---
ENCOUNTER DATE AND TIME: 09/02/2018 08:00 (CDT) NAME PRICE ROGERS DATE OF : 1940 DATE OF ADMISSION: 07/05/2018 18:33 (CDT) PHONE: AGE: 78 SSN# [id number] GENDER: Male ENCOUNTER PHYSICIAN: Dr. Abdirahman Zepeda M.D. 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 EATING: Activity did not occur on this shift EATING - SCORE: 0-UNK GROOMING: Activity did not occur on this shift GROOMING - SCORE: 0-UNK BATHING: Activity did not occur on this shift BATHING - SCORE: 0-UNK DRESSING - UPPER BODY: Activity did not occur on this shift Patient is not dressing in public clothing ARTICLES SCORE Total number of steps: 0 DRESSING - UPPER BODY - SCORE: 0-UNK DRESSING - LOWER BODY: Activity did not occur on this shift Patient is not dressing in public clothing ARTICLES SCORE Total number of steps: 0 DRESSING - LOWER BODY - SCORE: 0-UNK TOILETING: TOILETING - STEP 1: Does the patient require the assistance of a person or device, or need extra time with toileting? Yes . TOILETING - STEP 2: Does the patient require the assistance of a helper? Yes. TOILETING - STEP 3: How much assistance does the patient require from the helper? Only supervision TOILETING - SCORE: 5-SUP BLADDER MANAGEMENT: Activity did not occur on this shift BLADDER MANAGEMENT - SCORE: 7-IND BOWEL MANAGEMENT: Activity did not occur on this shift BOWEL MANAGEMENT - SCORE: 7-IND TRANSFERS: BED, CHAIR, WHEELCHAIR: TRANSFERS: BED, CHAIR, WHEELCHAIR - STEP 1: Does the patient require assistance of a person or device, or need extra time with bed, chair, or whe elchair transfers? Yes. TRANSFERS: BED, CHAIR, WHEELCHAIR - STEP 2: Does the patient require the assistance of a helper? Yes. TRANSFERS: BED, CHAIR, WHEELCHAIR - STEP 3: How much assistance does the patient require from the helper? Only supervision TRANSFERS: BED, CHAIR, WHEELCHAIR - SCORE: 5-SUP TRANSFERS: TOILET: TRANSFERS: TOILET - STEP 1: Does the patient require the assistance of a person or device, or need extra time with toilet transfe rs? Yes. TRANSFERS: TOILET - STEP 2: Does the patient require the assistance of a helper? Yes. TRANSFERS: TOILET - STEP 3: How much assistance does the patient require from the helper? Only supervision, cuing, coaxing, OR he lp to set out transfer equipment or to lock brakes and/or lift foot rests TRANSFERS: TOILET - SCORE: 5-SUP TRANSFERS: SHOWER: Activity did not occur on this shift TRANSFERS: SHOWER - SCORE: 0-UNK TRANSFERS: TUB: Activity did not occur on this shift TRANSFERS: TUB - SCORE: 0-UNK LOCOMOTION: WALK: LOCOMOTION: WALK - STEP 1: Does the patient need help from a person or device, or need extra time to walk 150 feet? Yes. LOCOMOTION: WALK - STEP 2: How much assistance does the patient require to walk a minimum of 150 feet? Patient walks less than 1 50 feet - but more than 50 feet - with the assistance of only one helper LOCOMOTION: WALK - SCORE: 2-MAX LOCOMOTION: WHEELCHAIR: LOCOMOTION: WHEELCHAIR - STEP 1: Does the patient need help to go 150 feet in a wheelchair? Yes. LOCOMOTION: WHEELCHAIR - STEP 2: How much assistance does the patient need from the helper? Only supervision, cuing, or coaxing LOCOMOTION: WHEELCHAIR - SCORE: 5-SUP LOCOMOTION: STAIRS: Activity did not occur on this shift LOCOMOTION: STAIRS - SCORE: 0-UNK COMPREHENSION: COMPREHENSION - SCORE: 0-UNK EXPRESSION EXPRESSION - SCORE: 0-UNK SOCIAL INTERACTION: SOCIAL INTERACTION - SCORE: 0-UNK PROBLEM SOLVING: PROBLEM SOLVING - SCORE: 0-UNK MEMORY: MEMORY - SCORE: 0-UNK SIGNATURE PANEL: The following modified sections: Transfers: Bed, Chair, Wheelchair - Score, Transfers: Toilet - Score , Toileting - Score, Bowel Management - Score, Locomotion: Walk - Score, Locomotion: Wheelchair - Sco re, Locomotion: Stairs - Score were [electronically] signed by Skip Phillips PT on ThuSep 02 201 9 14:25:02 T-0500 (Central Daylight Time)
[2018-09-02] MEDS: VALSARTAN 80 MG TAB PO SCH (15:05)
--- NOTE | 2018-09-02 16:01 | FAST ---
ENCOUNTER DATE AND TIME: 09/01/2018 08:00 (CDT) NAME PRICE ROGERS DATE OF : 1940 DATE OF ADMISSION: 07/05/2018 18:33 (CDT) PHONE: AGE: 78 SSN# [id number] GENDER: Male ENCOUNTER PHYSICIAN: Dr. Abdirahman Zepeda M.D. 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 EATING: Activity did not occur on this shift EATING - SCORE: 0-UNK GROOMING: Activity did not occur on this shift GROOMING - SCORE: 0-UNK BATHING: Activity did not occur on this shift BATHING - SCORE: 0-UNK DRESSING - UPPER BODY: Activity did not occur on this shift Patient is not dressing in public clothing ARTICLES SCORE Total number of steps: 0 DRESSING - UPPER BODY - SCORE: 0-UNK DRESSING - LOWER BODY: Activity did not occur on this shift Patient is not dressing in public clothing ARTICLES SCORE Total number of steps: 0 DRESSING - LOWER BODY - SCORE: 0-UNK TOILETING: Activity did not occur on this shift TOILETING - SCORE: 0-UNK BLADDER MANAGEMENT: Activity did not occur on this shift BLADDER MANAGEMENT - SCORE: 7-IND BOWEL MANAGEMENT: Activity did not occur on this shift BOWEL MANAGEMENT - SCORE: 7-IND TRANSFERS: BED, CHAIR, WHEELCHAIR: TRANSFERS: BED, CHAIR, WHEELCHAIR - STEP 1: Does the patient require assistance of a person or device, or need extra time with bed, chair, or whe elchair transfers? Yes. TRANSFERS: BED, CHAIR, WHEELCHAIR - STEP 2: Does the patient require the assistance of a helper? Yes. TRANSFERS: BED, CHAIR, WHEELCHAIR - STEP 3: How much assistance does the patient require from the helper? Only supervision TRANSFERS: BED, CHAIR, WHEELCHAIR - SCORE: 5-SUP TRANSFERS: TOILET: Activity did not occur on this shift TRANSFERS: TOILET - SCORE: 0-UNK TRANSFERS: SHOWER: Activity did not occur on this shift TRANSFERS: SHOWER - SCORE: 0-UNK TRANSFERS: TUB: Activity did not occur on this shift TRANSFERS: TUB - SCORE: 0-UNK LOCOMOTION: WALK: LOCOMOTION: WALK - STEP 1: Does the patient need help from a person or device, or need extra time to walk 150 feet? Yes. LOCOMOTION: WALK - STEP 2: How much assistance does the patient require to walk a minimum of 150 feet? Patient walks less than 1 50 feet - but more than 50 feet - with the assistance of only one helper LOCOMOTION: WALK - SCORE: 2-MAX LOCOMOTION: WHEELCHAIR: LOCOMOTION: WHEELCHAIR - STEP 1: Does the patient need help to go 150 feet in a wheelchair? Yes. LOCOMOTION: WHEELCHAIR - STEP 2: How much assistance does the patient need from the helper? Only incidental help such as around corner s or over thresholds LOCOMOTION: WHEELCHAIR - SCORE: 4-MIN LOCOMOTION: STAIRS: Activity did not occur on this shift LOCOMOTION: STAIRS - SCORE: 0-UNK COMPREHENSION: COMPREHENSION - SCORE: 0-UNK EXPRESSION EXPRESSION - SCORE: 0-UNK SOCIAL INTERACTION: SOCIAL INTERACTION - SCORE: 0-UNK PROBLEM SOLVING: PROBLEM SOLVING - SCORE: 0-UNK MEMORY: MEMORY - SCORE: 0-UNK SIGNATURE PANEL: The following modified sections: Transfers: Bed, Chair, Wheelchair - Score, Transfers: Toilet - Score , Locomotion: Walk - Score, Locomotion: Wheelchair - Score, Locomotion: Stairs - Score were [electron daphney] signed by Lorne Garcia PTA on ThuSep 02 2018 16:00:30 GMT-0500 (Central Daylight Time)
[2018-09-02] MEDS: TAMSULOSIN 0.4 MG SR CAP PO SCH (20:22)
[2018-09-02] MEDS: ATORVASTATIN 10 MG TAB PO SCH (20:22)
--- NOTE | 2018-09-03 01:24 | FAST ---
SHIFT START DATE/TIME: 09/02/2018 19:00 (CDT) SHIFT END DATE/TIME: 09/03/2018 07:00 (CDT) NAME PRICE ROGERS DATE OF : 1940 DATE OF ADMISSION: 07/05/2018 18:33 (CDT) PHONE: AGE: 78 N# [id number] GENDER: Male ENCOUNTER PHYSICIAN: Dr. Abdirahman Zepeda M.D. 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 EATING: Activity did not occur on this shift EATING - SCORE: 0-UNK GROOMING: Activity did not occur on this shift GROOMING - SCORE: 0-UNK BATHING: Activity did not occur on this shift BATHING - SCORE: 0-UNK DRESSING - UPPER BODY: Patient is not dressing in public clothing ARTICLES SCORE Total number of steps: 0 DRESSING - UPPER BODY - SCORE: 0-UNK DRESSING - LOWER BODY: Patient is not dressing in public clothing ARTICLES SCORE Total number of steps: 0 DRESSING - LOWER BODY - SCORE: 0-UNK TOILETING: TOILETING - STEP 1: Does the patient require the assistance of a person or device, or need extra time with toileting? Yes . TOILETING - STEP 2: Does the patient require the assistance of a helper? Yes. TOILETING - STEP 3: How much assistance does the patient require from the helper? Hands-on assistance from the helper TOILETING - STEP 4: Of the 3 tasks: 1) Adjusting clothing prior to use, 2) Cleansing of perineal area, 3) Adjusting clot merissa after use; How many tasks does the patient perform WITHOUT assistance of the helper? One task TOILETING - SCORE: 2-MAX BLADDER MANAGEMENT: BLADDER MANAGEMENT - STEP 1: Does the patient control the bladder completely and intentionally without equipment or devices or med ications, and is always continent? No. BLADDER MANAGEMENT - STEP 2: Does the patient require the assistance of a helper? Yes. BLADDER MANAGEMENT - STEP 3: How much assistance does the patient require from the helper? Only set-up of equipment - such as plac ing it within reach of the patient or emptying a device - to maintain either satisfactory voiding pat tern or managing an external device, such as an absorbent pad, ileal device, or catheter BLADDER MANAGEMENT - SCORE: 5-SUP BOWEL MANAGEMENT: BOWEL MANAGEMENT - STEP 1: Does the patient control bowels completely and intentionally without equipment devices or medications AND is always continent? No. BOWEL MANAGEMENT - STEP 2: Does the patient require the assistance of a helper? No, patient requires medication for control such as stool softeners, suppositories, laxatives, enemas, or OTC medications BOWEL MANAGEMENT - SCORE: 6-SILVESTRE TRANSFERS: BED, CHAIR, WHEELCHAIR: TRANSFERS: BED, CHAIR, WHEELCHAIR - STEP 1: Does the patient require assistance of a person or device, or need extra time with bed, chair, or whe elchair transfers? Yes. TRANSFERS: BED, CHAIR, WHEELCHAIR - STEP 2: Does the patient require the assistance of a helper? Yes. TRANSFERS: BED, CHAIR, WHEELCHAIR - STEP 3: How much assistance does the patient require from the helper? Lifting of the legs TRANSFERS: BED, CHAIR, WHEELCHAIR - STEP 4: How many legs does the patient require the helper to lift? one leg TRANSFERS: BED, CHAIR, WHEELCHAIR - SCORE: 4-MIN TRANSFERS: TOILET: TRANSFERS: TOILET - STEP 1: Does the patient require the assistance of a person or device, or need extra time with toilet transfe rs? Yes. TRANSFERS: TOILET - STEP 2: Does the patient require the assistance of a helper? Yes. TRANSFERS: TOILET - STEP 3: How much assistance does the patient require from the helper? Patient performs half or more of the tr ansferring tasks TRANSFERS: TOILET - STEP 4: Does the patient need only incidental help such as contact guard or steadying during toilet transfer? Yes. TRANSFERS: TOILET - SCORE: 4-MIN TRANSFERS: SHOWER: Activity did not occur on this shift TRANSFERS: SHOWER - SCORE: 0-UNK TRANSFERS: TUB: Activity did not occur on this shift TRANSFERS: TUB - SCORE: 0-UNK LOCOMOTION: WALK: Activity did not occur on this shift LOCOMOTION: WALK - SCORE: 0-UNK LOCOMOTION: WHEELCHAIR: Activity did not occur on this shift LOCOMOTION: WHEELCHAIR - SCORE: 0-UNK COMPREHENSION: COMPREHENSION: TYPE: Both COMPREHENSION - STEP 1: Does the patient require help from a person or device, or need extra time to understand complex and a bstract ideas (such as current events, finances, discharge planning, medical issues, relationships, e tc)? No. COMPREHENSION - STEP 2: Does the patient need extra time, require an assistive device (such as glasses for visual comprehensi on or a hearing aid for auditory comprehension) or does s/he have mild difficulty understanding compl ex and abstract information? Yes. COMPREHENSION - SCORE: 6-SILVESTRE EXPRESSION EXPRESSION: TYPE: Both EXPRESSION - STEP 1: Does the patient require help from a person or device, or need extra time expressing complex and abst ract ideas (such as current events, finances, discharge planning, medical issues, relationships, etc) ? No. EXPRESSION - STEP 2: Does the patient need extra time, require an assistive device (such as augmentive communication syste m or a communication board), OR does s/he have mild difficulty expressing complex and abstract ideas (including mild dysarthria or mild word-find problems)? No. EXPRESSION - SCORE: 7-IND SOCIAL INTERACTION: SOCIAL INTERACTION - STEP 1: Does the patient require a helper to interact with others in social and therapeutic situations? No. SOCIAL INTERACTION - STEP 2: Does the patient need extra time in social situations, OR does s/he interact with staff, other patien ts, and family members ONLY in structured environments, OR does s/he require medication for social in teraction? Yes, patient requires medication for social interaction SOCIAL INTERACTION - SCORE: 6-SILVESTRE PROBLEM SOLVING: PROBLEM SOLVING - STEP 1: Does the patient need help from a person or device, or need extra time to solve complex problems such as managing a checking account or confronting interpersonal problems? Yes. PROBLEM SOLVING - STEP 2: Does the patient solve basic routine problems half or more of the time? Yes. PROBLEM SOLVING - STEP 3: How often does the patient need help to solve basic routine problems? Less than 10% of the time PROBLEM SOLVING - SCORE: 5-SUP MEMORY: MEMORY - STEP 1: Does the patient need help from a person or device, or need extra time to remember frequently encount ered people, daily routines, and executing requests? No. MEMORY - STEP 2: Does the patient have slight difficulty recognizing frequently encountered people, daily routines, or executing requests without the need for repetition or using self-initiated or environmental cues to remember? Yes. MEMORY - SCORE: 6-SILVESTRE SIGNATURE PANEL: The following modified sections: Eating - Score, Grooming - Score, Dressing - Upper Body - Score, Jitendra ssing - Lower Body - Score, Toileting - Score, Bladder Management - Score, Bowel Management - Score, Transfers: Bed, Chair, Wheelchair - Score, Transfers: Toilet - Score, Transfers: Shower - Score, Good sfers: Tub - Score, Locomotion: Walk - Score, Locomotion: Wheelchair - Score, Comprehension - Score, Expression - Score, Social Interaction - Score, Problem Solving - Score, Memory - Score were [electro nically] signed by Valerie Almanzar CNA on ThuSep 03 2018 01:23:14 T-0500 (Central Daylight Time)
[2018-09-03] MEDS: LIDOCAINE 5% PATCH TOP SCH (07:59)
[2018-09-03] MEDS: FUROSEMIDE 20 MG TABLET PO SCH (08:11)
[2018-09-03] MEDS: CITALOPRAM 10 MG TABLET PO SCH (08:12)
[2018-09-03] MEDS: GABAPENTIN 300 MG CAP PO SCH ×3 (08:12→19:53)
[2018-09-03] MEDS: FLECAINIDE 100 MG TAB PO SCH ×2 (08:13→19:53)
[2018-09-03] MEDS: APIXABAN 2.5 MG TABLET PO SCH ×2 (08:13→19:55)
[2018-09-03] MEDS: LISINOPRIL 5 MG TAB PO SCH (08:14)
[2018-09-03] MEDS: ACETAMINOPHEN 500 MG TAB PO PRN (08:14)
[2018-09-03] MEDS: MAGNESIUM OXIDE 400 MG TAB PO SCH ×2 (08:15→19:55)
[2018-09-03] MEDS: CYANOCOBALAMIN 1,000 MCG TAB PO SCH (08:15)
--- NOTE | 2018-09-03 09:40 | P.RH.PN ---
Estimated Length of Stay: 69 Expected Discharge Date: 09/11/18 Discharge Disposition Plan: Home Family Support: Yes [facility] Goal: Mobility, Transfers, Self Care Vital Signs: Last Vital Signs Temp 97.7 F 09/03/18 07:35 Pulse 91 H 09/03/18 08:14 Resp 16 09/03/18 07:35 BP 142/83 H 09/03/18 08:14 Pulse Ox 95 09/03/18 07:35 Laboratory: Laboratory Last Values WBC 6.4 K/uL (4.3-10.9) D 09/02/18 05:48 RBC 3.85 M/uL (4.33-5.43) L 09/02/18 05:48 Hgb 12.0 g/dL (13.6-17.9) L 09/02/18 05:48 Hct 36.0 % (39.6-49.0) L 09/02/18 05:48 MCV 93.4 fL (80-100) 09/02/18 05:48 MCH 31.1 pg (27.0-35.0) 09/02/18 05:48 MCHC 33.3 g/dL (32.0-36.0) 09/02/18 05:48 RDW 14.2 % (12.1-15.2) 09/02/18 05:48 Plt Count 219 K/uL (152-406) 09/02/18 05:48 MPV 8.8 fL (7.6-11.3) 09/02/18 05:48 Neutrophils % 60.5 % (41.7-73.7) 09/02/18 05:48 Lymphocytes % 26.3 % (15.3-44.8) 09/02/18 05:48 Monocytes % 8.5 % (3.3-12.3) 09/02/18 05:48 Eosinophils % 4.0 % (0-4.4) 09/02/18 05:48 Basophils % 0.7 % (0-1.3) 09/02/18 05:48 Absolute Neutrophils 3.9 K/uL (1.8-8.0) 09/02/18 05:48 Absolute Lymphocytes 1.7 K/uL (0.7-4.9) 09/02/18 05:48 Absolute Monocytes 0.5 K/uL (0.1-1.3) 09/02/18 05:48 Absolute Eosinophils 0.3 K/uL (0-0.5) 09/02/18 05:48 Absolute Basophils 0.0 K/uL (0-0.5) 09/02/18 05:48 Sodium 143 mmol/L (136-145) 09/02/18 05:48 Potassium 4.2 mmol/L (3.5-5.1) 09/02/18 05:48 Chloride 108 mmol/L (98-107) H 09/02/18 05:48 Carbon Dioxide 31 mmol/L (21-32) 09/02/18 05:48 BUN 16 mg/dL (7-18) 09/02/18 05:48 Creatinine 0.98 mg/dL (0.55-1.3) 09/02/18 05:48 Estimated GFR 74 mL/min (=/>90) L 09/02/18 05:48 Glucose 96 mg/dL (74-106) 09/02/18 05:48 Calcium 8.4 mg/dL (8.5-10.1) L 09/02/18 05:48 Magnesium 2.2 mg/dL (1.8-2.4) 09/03/18 06:20 Total Bilirubin 0.4 mg/dL (0.2-1.0) 08/31/18 14:06 Direct Bilirubin 0.1 mg/dL (0-0.2) 08/31/18 14:06 AST 13 U/L (15-37) L 08/31/18 14:06 ALT 25 U/L (12-78) 08/31/18 14:06 Alkaline Phosphatase 96 U/L (45-117) 08/31/18 14:06 Serum Total Protein 7.3 g/dL (6.4-8.2) 08/31/18 14:06 Albumin 3.5 g/dL (3.4-5.0) 08/31/18 14:06 Globulin 3.8 g/dL (2.3-3.5) H 08/31/18 14:06 Albumin/Globulin Ratio 0.9 (1.1-1.8) L 08/31/18 14:06 Prealbumin 20.9 mg/dL (20-40) 09/02/18 05:48 Urine Color Yellow 07/11/18 10:59 Urine Appearance Clear 07/11/18 10:59 Urine pH 6.0 (5.0-7.0) 07/11/18 10:59 Ur Specific [place] 1.020 (1.005-1.030) 07/11/18 10:59 Urine Ketones Negative (NEG) 07/11/18 10:59 Urine Blood Negative (NEG) 07/11/18 10:59 Urine Nitrite Negative (NEG) 07/11/18 10:59 Urine Bilirubin Negative (NEG) 07/11/18 10:59 Urine Urobilinogen 1.0 mg/dL (0.2-1.0) 07/11/18 10:59 Ur Leukocyte Esterase Trace (NEG) H 07/11/18 10:59 Urine RBC <5 /HPF (NONE SEEN) 07/11/18 10:59 Urine WBC <5 /HPF (<5) 07/11/18 10:59 Ur Squamous Epith Cells 5-10 /HPF (NONE SEEN) H 07/11/18 10:59 Urine Bacteria <20 /HPF (NONE SEEN) 07/11/18 10:59 Urine Mucus Slight /HPF (NONE SEEN) 07/07/18 00:10 Urine Culture Reflexed Not needed 07/11/18 10:59 Urine Glucose Negative (NEG) 07/11/18 10:59 Urine Total Protein Negative (NEG) 07/11/18 10:59 Weight: 210 lb 2 oz Wound Present: No Closed Surgical Incision Present: No Negative Pressure Wound Therapy Present: No Physician Update: He is at standy by assistance walking 50' and sit to stand. He will use a hemiwalker and a wheelchair at home. His labs are reviewed and are stable. He is minimum assistance for bathing, standby assistance for upper body dressing. He will have help at home but will need a Life Alert type device if he falls. He will be discharged home next week [place]. Medical Issues: DVT Prophylaxis - Eliquis 2.5mg BID Pain Issues: Gabapentin 300mg TID. Lidocaine pacth 5% Daily Comment: Right Groin incision healed, S/P thrombectomy Functional Improvement: pt has continued to demonstrate significant progress throughout the week. pt has demonstrated the ability to perform w/c <-> bed transfers using bed rail with SBA. pt able to set-up w/c along side of bed and lock it with only verbal cues. pt demonstrated ability to perform sit <-> supine transfer with SBA as well. pt able to get self straight in the bed without any physical assist. pt performed toilet transfer with SBA using grab bar. pt able to pull down pants and underwear on own without physical assist while steadying self using grab bar. pt performed red care independently. pt able to pull underwear and pants back up on his own as well. pt ambulated 50' with SBA using a hemiwalker. pt has continued to demonstrated significant improvement and currently, his home is under rennovation to install all necessary accomodating devices. Grab bars are being installed throughout the home as well as a walk-in shower with bench being installed. Once these rennovations are complete, pt will be safe to discharge home with someone there for supervision and set-up assit. Functional Improvement Occupational Therapy: cont to educate and train pt on LB dressing techniques and UB dressing. Cont to increase pt's Right UE ROM and neuro re-ed for movements to assist with adl tasks. Cont to increase pt's static standing balance for clothing mgmt up/down and for safe functional transfers. Speech Therapy Update: Pt is at MOD I for Auditory Comprehension, MIN A to SUPV for Verbal Expression, Mod I for Social Interaction, MIN A to SUPV for Problem Solving and MOD I for Memory. Pt cont to have difficulty self-monitoring his speech in order to reduce speech rate and over enunciate. He tends to jumble words together particularly at the end of the utterance, as well as multisyllabic words. When asked to repeat the word he will often slow down, producing the word one syllable at a time, but does not do this initially without cues. Pt cont to require occasional verbal cues for problem solving, initiation, and safety awareness. Summary: Patient's care plan and intermediate card tender goals have been reviewed and revised as necessary. Please see the Rehabilitation Signature page for all necessary signatures.
[2018-09-03] MEDS: VALSARTAN 80 MG TAB PO SCH (12:22)
--- NOTE | 2018-09-03 15:03 | FAST ---
ENCOUNTER DATE AND TIME: 09/03/2018 08:00 (CDT) NAME PRICE ROGERS DATE OF : 1940 DATE OF ADMISSION: 07/05/2018 18:33 (CDT) PHONE: AGE: 78 SSN# [id number] GENDER: Male ENCOUNTER PHYSICIAN: Dr. Abdirahman Zepeda M.D. 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 EATING: Activity did not occur on this shift EATING - SCORE: 0-UNK GROOMING: Activity did not occur on this shift GROOMING - SCORE: 0-UNK BATHING: Activity did not occur on this shift BATHING - SCORE: 0-UNK DRESSING - UPPER BODY: Activity did not occur on this shift Patient is not dressing in public clothing ARTICLES SCORE Total number of steps: 0 DRESSING - UPPER BODY - SCORE: 0-UNK DRESSING - LOWER BODY: Activity did not occur on this shift Patient is not dressing in public clothing ARTICLES SCORE Total number of steps: 0 DRESSING - LOWER BODY - SCORE: 0-UNK TOILETING: Activity did not occur on this shift TOILETING - SCORE: 0-UNK BLADDER MANAGEMENT: Activity did not occur on this shift BLADDER MANAGEMENT - SCORE: 7-IND BOWEL MANAGEMENT: Activity did not occur on this shift BOWEL MANAGEMENT - SCORE: 7-IND TRANSFERS: BED, CHAIR, WHEELCHAIR: TRANSFERS: BED, CHAIR, WHEELCHAIR - STEP 1: Does the patient require assistance of a person or device, or need extra time with bed, chair, or whe elchair transfers? Yes. TRANSFERS: BED, CHAIR, WHEELCHAIR - STEP 2: Does the patient require the assistance of a helper? Yes. TRANSFERS: BED, CHAIR, WHEELCHAIR - STEP 3: How much assistance does the patient require from the helper? Only supervision TRANSFERS: BED, CHAIR, WHEELCHAIR - SCORE: 5-SUP TRANSFERS: TOILET: Activity did not occur on this shift TRANSFERS: TOILET - SCORE: 0-UNK TRANSFERS: SHOWER: Activity did not occur on this shift TRANSFERS: SHOWER - SCORE: 0-UNK TRANSFERS: TUB: Activity did not occur on this shift TRANSFERS: TUB - SCORE: 0-UNK LOCOMOTION: WALK: LOCOMOTION: WALK - STEP 1: Does the patient need help from a person or device, or need extra time to walk 150 feet? Yes. LOCOMOTION: WALK - STEP 2: How much assistance does the patient require to walk a minimum of 150 feet? Patient walks less than 1 50 feet - but more than 50 feet - with the assistance of only one helper LOCOMOTION: WALK - SCORE: 2-MAX LOCOMOTION: WHEELCHAIR: LOCOMOTION: WHEELCHAIR - STEP 1: Does the patient need help to go 150 feet in a wheelchair? Yes. LOCOMOTION: WHEELCHAIR - STEP 2: How much assistance does the patient need from the helper? Only supervision, cuing, or coaxing LOCOMOTION: WHEELCHAIR - SCORE: 5-SUP LOCOMOTION: STAIRS: Activity did not occur on this shift LOCOMOTION: STAIRS - SCORE: 0-UNK COMPREHENSION: COMPREHENSION - SCORE: 0-UNK EXPRESSION EXPRESSION - SCORE: 0-UNK SOCIAL INTERACTION: SOCIAL INTERACTION - SCORE: 0-UNK PROBLEM SOLVING: PROBLEM SOLVING - SCORE: 0-UNK MEMORY: MEMORY - SCORE: 0-UNK SIGNATURE PANEL: The following modified sections: Transfers: Bed, Chair, Wheelchair - Score, Transfers: Toilet - Score , Locomotion: Walk - Score, Locomotion: Wheelchair - Score, Locomotion: Stairs - Score were [electron daphney] signed by Skip Phillips PT on ThuSep 03 2018 15:01:39 T-0500 (Central Daylight Time)
[2018-09-03] MEDS: [UNRECOGNIZED DRUG - MIXTURE] EACH EYE PRN (19:51)
[2018-09-03] MEDS: ATORVASTATIN 10 MG TAB PO SCH (19:53)
[2018-09-03] MEDS: TAMSULOSIN 0.4 MG SR CAP PO SCH (20:15)
--- NOTE | 2018-09-04 02:18 | FAST ---
SHIFT START DATE/TIME: 09/03/2018 19:00 (CDT) SHIFT END DATE/TIME: 09/04/2018 07:00 (CDT) NAME PRICE ROGERS DATE OF : 1940 DATE OF ADMISSION: 07/05/2018 18:33 (CDT) PHONE: AGE: 78 N# [id number] GENDER: Male ENCOUNTER PHYSICIAN: Dr. Abdirahman Zepeda M.D. 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 EATING: Activity did not occur on this shift EATING - SCORE: 0-UNK GROOMING: Activity did not occur on this shift GROOMING - SCORE: 0-UNK BATHING: Activity did not occur on this shift BATHING - SCORE: 0-UNK DRESSING - UPPER BODY: Patient is not dressing in public clothing ARTICLES SCORE Total number of steps: 0 DRESSING - UPPER BODY - SCORE: 0-UNK DRESSING - LOWER BODY: Patient is not dressing in public clothing ARTICLES SCORE Total number of steps: 0 DRESSING - LOWER BODY - SCORE: 0-UNK TOILETING: TOILETING - STEP 1: Does the patient require the assistance of a person or device, or need extra time with toileting? Yes . TOILETING - STEP 2: Does the patient require the assistance of a helper? Yes. TOILETING - STEP 3: How much assistance does the patient require from the helper? Hands-on assistance from the helper TOILETING - STEP 4: Of the 3 tasks: 1) Adjusting clothing prior to use, 2) Cleansing of perineal area, 3) Adjusting clot merissa after use; How many tasks does the patient perform WITHOUT assistance of the helper? One task TOILETING - SCORE: 2-MAX BLADDER MANAGEMENT: BLADDER MANAGEMENT - STEP 1: Does the patient control the bladder completely and intentionally without equipment or devices or med ications, and is always continent? No. BLADDER MANAGEMENT - STEP 2: Does the patient require the assistance of a helper? Yes. BLADDER MANAGEMENT - STEP 3: How much assistance does the patient require from the helper? Patient requires contact assistance fro m the helper BLADDER MANAGEMENT - STEP 4: How much contact assistance does the patient require from the helper? Patient requires moderate mary tance, and performs 50% to 75% of bladder management tasks - [place] positions AND holds urinal or bed benítez BLADDER MANAGEMENT - SCORE: 3-MOD BOWEL MANAGEMENT: Activity did not occur on this shift BOWEL MANAGEMENT - SCORE: 7-IND TRANSFERS: BED, CHAIR, WHEELCHAIR: TRANSFERS: BED, CHAIR, WHEELCHAIR - STEP 1: Does the patient require assistance of a person or device, or need extra time with bed, chair, or whe elchair transfers? Yes. TRANSFERS: BED, CHAIR, WHEELCHAIR - STEP 2: Does the patient require the assistance of a helper? Yes. TRANSFERS: BED, CHAIR, WHEELCHAIR - STEP 3: How much assistance does the patient require from the helper? Lifting of the legs TRANSFERS: BED, CHAIR, WHEELCHAIR - STEP 4: How many legs does the patient require the helper to lift? one leg TRANSFERS: BED, CHAIR, WHEELCHAIR - SCORE: 4-MIN TRANSFERS: TOILET: TRANSFERS: TOILET - STEP 1: Does the patient require the assistance of a person or device, or need extra time with toilet transfe rs? Yes. TRANSFERS: TOILET - STEP 2: Does the patient require the assistance of a helper? Yes. TRANSFERS: TOILET - STEP 3: How much assistance does the patient require from the helper? Patient performs half or more of the tr ansferring tasks TRANSFERS: TOILET - STEP 4: Does the patient need only incidental help such as contact guard or steadying during toilet transfer? No. Patient needs more than incidental help TRANSFERS: TOILET - SCORE: 3-MOD TRANSFERS: SHOWER: Activity did not occur on this shift TRANSFERS: SHOWER - SCORE: 0-UNK TRANSFERS: TUB: Activity did not occur on this shift TRANSFERS: TUB - SCORE: 0-UNK LOCOMOTION: WALK: Activity did not occur on this shift LOCOMOTION: WALK - SCORE: 0-UNK LOCOMOTION: WHEELCHAIR: Activity did not occur on this shift LOCOMOTION: WHEELCHAIR - SCORE: 0-UNK COMPREHENSION: COMPREHENSION: TYPE: Both COMPREHENSION - STEP 1: Does the patient require help from a person or device, or need extra time to understand complex and a bstract ideas (such as current events, finances, discharge planning, medical issues, relationships, e tc)? No. COMPREHENSION - STEP 2: Does the patient need extra time, require an assistive device (such as glasses for visual comprehensi on or a hearing aid for auditory comprehension) or does s/he have mild difficulty understanding compl ex and abstract information? Yes. COMPREHENSION - SCORE: 6-SILVESTRE EXPRESSION EXPRESSION: TYPE: Both EXPRESSION - STEP 1: Does the patient require help from a person or device, or need extra time expressing complex and abst ract ideas (such as current events, finances, discharge planning, medical issues, relationships, etc) ? No. EXPRESSION - STEP 2: Does the patient need extra time, require an assistive device (such as augmentive communication syste m or a communication board), OR does s/he have mild difficulty expressing complex and abstract ideas (including mild dysarthria or mild word-find problems)? No. EXPRESSION - SCORE: 7-IND SOCIAL INTERACTION: SOCIAL INTERACTION - STEP 1: Does the patient require a helper to interact with others in social and therapeutic situations? No. SOCIAL INTERACTION - STEP 2: Does the patient need extra time in social situations, OR does s/he interact with staff, other patien ts, and family members ONLY in structured environments, OR does s/he require medication for social in teraction? Yes, patient requires medication for social interaction SOCIAL INTERACTION - SCORE: 6-SILVESTRE PROBLEM SOLVING: PROBLEM SOLVING - STEP 1: Does the patient need help from a person or device, or need extra time to solve complex problems such as managing a checking account or confronting interpersonal problems? Yes. PROBLEM SOLVING - STEP 2: Does the patient solve basic routine problems half or more of the time? Yes. PROBLEM SOLVING - STEP 3: How often does the patient need help to solve basic routine problems? Less than 10% of the time PROBLEM SOLVING - SCORE: 5-SUP MEMORY: MEMORY - STEP 1: Does the patient need help from a person or device, or need extra time to remember frequently encount ered people, daily routines, and executing requests? No. MEMORY - STEP 2: Does the patient have slight difficulty recognizing frequently encountered people, daily routines, or executing requests without the need for repetition or using self-initiated or environmental cues to remember? Yes. MEMORY - SCORE: 6-SILVESTRE
[2018-09-04] MEDS: LIDOCAINE 5% PATCH TOP SCH (08:12)
[2018-09-04] MEDS: MAGNESIUM OXIDE 400 MG TAB PO SCH ×2 (08:13→20:32)
[2018-09-04] MEDS: CITALOPRAM 10 MG TABLET PO SCH (08:13)
[2018-09-04] MEDS: LISINOPRIL 5 MG TAB PO SCH (08:14)
[2018-09-04] MEDS: APIXABAN 2.5 MG TABLET PO SCH ×2 (08:14→20:32)
[2018-09-04] MEDS: GABAPENTIN 300 MG CAP PO SCH ×3 (08:15→20:33)
[2018-09-04] MEDS: FUROSEMIDE 20 MG TABLET PO SCH (08:15)
[2018-09-04] MEDS: FLECAINIDE 100 MG TAB PO SCH ×2 (08:16→20:33)
[2018-09-04] MEDS: ACETAMINOPHEN 500 MG TAB PO PRN ×2 (08:17→11:51)
[2018-09-04] MEDS: CYANOCOBALAMIN 1,000 MCG TAB PO SCH (08:17)
[2018-09-04] MEDS: ONDANSETRON 4 MG (ODT) TAB PO PRN ×2 (08:32→12:25)
--- NOTE | 2018-09-04 09:24 | FAST ---
SHIFT START DATE/TIME: 09/04/2018 07:00 (CDT) SHIFT END DATE/TIME: 09/04/2018 19:00 (CDT) NAME PRICE ROGERS DATE OF : 1940 DATE OF ADMISSION: 07/05/2018 18:33 (CDT) PHONE: AGE: 78 N# [id number] GENDER: Male ENCOUNTER PHYSICIAN: Dr. Abdirahman Zepeda M.D. 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 EATING: EATING - STEP 1: Does the patient require the assistance of a person or device, or need extra time when eating? Yes. EATING - STEP 2: Does the patient require the assistance of a helper? Yes. EATING - STEP 3: Does the patient perform half or more of the eating tasks? Yes. EATING - STEP 4: Does the patient need only supervision, cuing, coaxing OR help to apply an orthosis OR help to cut fo od, open containers, pour liquids, or butter bread? Yes. EATING - SCORE: 5-SUP GROOMING: Comb/brush hair Oral care Wash, rinse, and dry face Wash, rinse, and dry hands GROOMING - STEP 1: Does the patient require the assistance of a person or device, or need extra time when grooming? Yes. GROOMING - STEP 2: Does the patient require the assistance of a helper? Yes. GROOMING - STEP 3: How much assistance does the patient require from the helper? Cuing, coaxing, instructions, or encour agement for completion of grooming GROOMING - SCORE: 5-SUP BATHING: Activity did not occur on this shift BATHING - SCORE: 0-UNK DRESSING - UPPER BODY: T-shirt/pullover shirt (four steps) ARTICLES SCORE Total number of steps: 4 DRESSING - UPPER BODY - STEP 1: Does the patient require help from a person or device, or need extra time when dressing above the [address]? Yes. DRESSING - UPPER BODY - STEP 2: Does the patient require the assistance of a helper? Yes. DRESSING - UPPER BODY - STEP 3: Does the helper touch the patient while dressing? Yes. DRESSING - UPPER BODY - STEP 4: How many of the total steps does the patient complete on his/her own? 2 DRESSING - UPPER BODY - SCORE: 3-MOD DRESSING - LOWER BODY: ARTICLES SCORE Total number of steps: 3 DRESSING - LOWER BODY - STEP 1: Does the patient require help from a person or device, or need extra time when dressing below the [address]? Yes. DRESSING - LOWER BODY - STEP 2: Does the patient require the assistance of a helper? Yes. DRESSING - LOWER BODY - STEP 3: Does the helper touch the patient while dressing? Yes. DRESSING - LOWER BODY - STEP 4: How many of the total steps does the patient complete on his/her own? 2 DRESSING - LOWER BODY - SCORE: 3-MOD TOILETING: TOILETING - STEP 1: Does the patient require the assistance of a person or device, or need extra time with toileting? Yes . TOILETING - STEP 2: Does the patient require the assistance of a helper? Yes. TOILETING - STEP 3: How much assistance does the patient require from the helper? Hands-on assistance from the helper TOILETING - STEP 4: Of the 3 tasks: 1) Adjusting clothing prior to use, 2) Cleansing of perineal area, 3) Adjusting clot merissa after use; How many tasks does the patient perform WITHOUT assistance of the helper? Two tasks TOILETING - SCORE: 3-MOD BLADDER MANAGEMENT: BLADDER MANAGEMENT - STEP 1: Does the patient control the bladder completely and intentionally without equipment or devices or med ications, and is always continent? No. BLADDER MANAGEMENT - STEP 2: Does the patient require the assistance of a helper? No, patient requires and independently uses an a ssistive device, such as a urinal, bedpan, bedside commode, catheter, absorbent pad, or collecting de vice BLADDER MANAGEMENT - SCORE: 6-SILVESTRE BOWEL MANAGEMENT: Activity did not occur on this shift BOWEL MANAGEMENT - SCORE: 7-IND TRANSFERS: BED, CHAIR, WHEELCHAIR: TRANSFERS: BED, CHAIR, WHEELCHAIR - STEP 1: Does the patient require assistance of a person or device, or need extra time with bed, chair, or whe elchair transfers? Yes. TRANSFERS: BED, CHAIR, WHEELCHAIR - STEP 2: Does the patient require the assistance of a helper? Yes. TRANSFERS: BED, CHAIR, WHEELCHAIR - STEP 3: How much assistance does the patient require from the helper? Lifting of the patient TRANSFERS: BED, CHAIR, WHEELCHAIR - STEP 4: Does the helper lift the patient ONLY up? ONLY down? Up AND Down? ONLY up. TRANSFERS: BED, CHAIR, WHEELCHAIR - SCORE: 3-MOD TRANSFERS: TOILET: TRANSFERS: TOILET - STEP 1: Does the patient require the assistance of a person or device, or need extra time with toilet transfe rs? Yes. TRANSFERS: TOILET - STEP 2: Does the patient require the assistance of a helper? Yes. TRANSFERS: TOILET - STEP 3: How much assistance does the patient require from the helper? Patient performs half or more of the tr ansferring tasks TRANSFERS: TOILET - STEP 4: Does the patient need only incidental help such as contact guard or steadying during toilet transfer? Yes. TRANSFERS: TOILET - SCORE: 4-MIN TRANSFERS: SHOWER: Activity did not occur on this shift TRANSFERS: SHOWER - SCORE: 0-UNK TRANSFERS: TUB: Activity did not occur on this shift TRANSFERS: TUB - SCORE: 0-UNK LOCOMOTION: WALK: Activity did not occur on this shift LOCOMOTION: WALK - SCORE: 0-UNK LOCOMOTION: WHEELCHAIR: Activity did not occur on this shift LOCOMOTION: WHEELCHAIR - SCORE: 0-UNK COMPREHENSION: COMPREHENSION: TYPE: Both COMPREHENSION - STEP 1: Does the patient require help from a person or device, or need extra time to understand complex and a bstract ideas (such as current events, finances, discharge planning, medical issues, relationships, e tc)? No. COMPREHENSION - STEP 2: Does the patient need extra time, require an assistive device (such as glasses for visual comprehensi on or a hearing aid for auditory comprehension) or does s/he have mild difficulty understanding compl ex and abstract information? Yes. COMPREHENSION - SCORE: 6-SILVESTRE EXPRESSION EXPRESSION: TYPE: Both EXPRESSION - STEP 1: Does the patient require help from a person or device, or need extra time expressing complex and abst ract ideas (such as current events, finances, discharge planning, medical issues, relationships, etc) ? No. EXPRESSION - STEP 2: Does the patient need extra time, require an assistive device (such as augmentive communication syste m or a communication board), OR does s/he have mild difficulty expressing complex and abstract ideas (including mild dysarthria or mild word-find problems)? Yes. EXPRESSION - SCORE: 6-SILVESTRE SOCIAL INTERACTION: SOCIAL INTERACTION - STEP 1: Does the patient require a helper to interact with others in social and therapeutic situations? No. SOCIAL INTERACTION - STEP 2: Does the patient need extra time in social situations, OR does s/he interact with staff, other patien ts, and family members ONLY in structured environments, OR does s/he require medication for social in teraction? Yes, patient needs extra time SOCIAL INTERACTION - SCORE: 6-SILVESTRE PROBLEM SOLVING: PROBLEM SOLVING - STEP 1: Does the patient need help from a person or device, or need extra time to solve complex problems such as managing a checking account or confronting interpersonal problems? No. PROBLEM SOLVING - STEP 2: Does the patient require extra time to make decisions or solve problems, OR does s/he have slight dif ficulty reading, initiating, or self-correcting in unfamiliar situations? Yes, patient needs extra ti me. PROBLEM SOLVING - SCORE: 6-SILVESTRE MEMORY: MEMORY - STEP 1: Does the patient need help from a person or device, or need extra time to remember frequently encount ered people, daily routines, and executing requests? No. MEMORY - STEP 2: Does the patient have slight difficulty recognizing frequently encountered people, daily routines, or executing requests without the need for repetition or using self-initiated or environmental cues to remember? Yes. MEMORY - SCORE: 6-SILVESTRE SIGNATURE PANEL: The following modified sections: Eating - Score, Grooming - Score, Bathing - Score, Dressing - Upper Body - Score, Dressing - Lower Body - Score, Toileting - Score, Bladder Management - Score, Bowel Man agement - Score, Transfers: Bed, Chair, Wheelchair - Score, Transfers: Toilet - Score, Transfers: Melissa wer - Score, Transfers: Tub - Score, Locomotion: Walk - Score, Locomotion: Wheelchair - Score, Compre hension - Score, Expression - Score, Social Interaction - Score, Problem Solving - Score, Memory - Sc ore were [electronically] signed by Wilmar Arboleda on Sat Sep 04 2018 09:23:18 GMT-0500 (Central Daylight Time)
[2018-09-04] MEDS: VALSARTAN 80 MG TAB PO SCH (12:00)
[2018-09-04] MEDS: [UNRECOGNIZED DRUG - MIXTURE] EACH EYE PRN (16:47)
[2018-09-04] MEDS: ATORVASTATIN 10 MG TAB PO SCH (20:32)
[2018-09-04] MEDS: TAMSULOSIN 0.4 MG SR CAP PO SCH (20:33)
[2018-09-04] MEDS: MELATONIN 3 MG TABLET PO PRN (20:44)
[2018-09-05] MEDS: ACETAMINOPHEN 500 MG TAB PO PRN ×2 (06:33→16:16)
[2018-09-05] MEDS: LIDOCAINE 5% PATCH TOP SCH (06:33)
[2018-09-05] MEDS: LISINOPRIL 5 MG TAB PO SCH (08:00)
[2018-09-05] MEDS: GABAPENTIN 300 MG CAP PO SCH ×3 (08:19→20:39)
[2018-09-05] MEDS: CITALOPRAM 10 MG TABLET PO SCH (08:19)
[2018-09-05] MEDS: FLECAINIDE 100 MG TAB PO SCH ×2 (08:20→20:39)
[2018-09-05] MEDS: FUROSEMIDE 20 MG TABLET PO SCH (08:21)
[2018-09-05] MEDS: CYANOCOBALAMIN 1,000 MCG TAB PO SCH (08:21)
[2018-09-05] MEDS: APIXABAN 2.5 MG TABLET PO SCH ×2 (08:22→20:39)
[2018-09-05] MEDS: MAGNESIUM OXIDE 400 MG TAB PO SCH ×2 (08:23→20:38)
[2018-09-05] MEDS: VALSARTAN 80 MG TAB PO SCH (11:50)
--- NOTE | 2018-09-05 13:36 | FAST ---
SHIFT START DATE/TIME: 09/05/2018 07:00 (CDT) SHIFT END DATE/TIME: 09/05/2018 19:00 (CDT) NAME PRICE ROGERS DATE OF : 1940 DATE OF ADMISSION: 07/05/2018 18:33 (CDT) PHONE: AGE: 78 N# [id number] GENDER: Male ENCOUNTER PHYSICIAN: Dr. Abdirahman Zepeda M.D. 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 EATING: EATING - STEP 1: Does the patient require the assistance of a person or device, or need extra time when eating? Yes. EATING - STEP 2: Does the patient require the assistance of a helper? No, patient only requires an assistive device, O R s/he takes more than reasonable time to eat, OR there is a safety concern, OR s/he requires modifie d food consistency EATING - SCORE: 6-SILVESTRE GROOMING: Comb/brush hair Oral care Wash, rinse, and dry face Wash, rinse, and dry hands GROOMING - STEP 1: Does the patient require the assistance of a person or device, or need extra time when grooming? Yes. GROOMING - STEP 2: Does the patient require the assistance of a helper? No. The patient only requires an assistive devic e, OR takes more than reasonable time to groom, OR there is a concern for safety as the patient groom s GROOMING - SCORE: 6-SILVESTRE BATHING: Activity did not occur on this shift BATHING - SCORE: 0-UNK DRESSING - UPPER BODY: Activity did not occur on this shift ARTICLES SCORE Total number of steps: 0 DRESSING - UPPER BODY - SCORE: 0-UNK DRESSING - LOWER BODY: Activity did not occur on this shift ARTICLES SCORE Total number of steps: 0 DRESSING - LOWER BODY - SCORE: 0-UNK TOILETING: TOILETING - STEP 1: Does the patient require the assistance of a person or device, or need extra time with toileting? Yes . TOILETING - STEP 2: Does the patient require the assistance of a helper? Yes. TOILETING - STEP 3: How much assistance does the patient require from the helper? Hands-on assistance from the helper TOILETING - STEP 4: Of the 3 tasks: 1) Adjusting clothing prior to use, 2) Cleansing of perineal area, 3) Adjusting clot merissa after use; How many tasks does the patient perform WITHOUT assistance of the helper? Two tasks TOILETING - SCORE: 3-MOD BLADDER MANAGEMENT: BLADDER MANAGEMENT - STEP 1: Does the patient control the bladder completely and intentionally without equipment or devices or med ications, and is always continent? No. BLADDER MANAGEMENT - STEP 2: Does the patient require the assistance of a helper? No, patient requires and independently uses an a ssistive device, such as a urinal, bedpan, bedside commode, catheter, absorbent pad, or collecting de vice BLADDER MANAGEMENT - SCORE: 6-SILVESTRE BOWEL MANAGEMENT: BOWEL MANAGEMENT - STEP 1: Does the patient control bowels completely and intentionally without equipment devices or medications AND is always continent? No. BOWEL MANAGEMENT - STEP 2: Does the patient require the assistance of a helper? No, patient requires and manages independently a n assistive device such as a bedpan, bedside commode, absorbent pad, incontinent device, or collectin g device BOWEL MANAGEMENT - SCORE: 6-SILVESTRE TRANSFERS: BED, CHAIR, WHEELCHAIR: TRANSFERS: BED, CHAIR, WHEELCHAIR - STEP 1: Does the patient require assistance of a person or device, or need extra time with bed, chair, or whe elchair transfers? Yes. TRANSFERS: BED, CHAIR, WHEELCHAIR - STEP 2: Does the patient require the assistance of a helper? Yes. TRANSFERS: BED, CHAIR, WHEELCHAIR - STEP 3: How much assistance does the patient require from the helper? Lifting of the patient TRANSFERS: BED, CHAIR, WHEELCHAIR - STEP 4: Does the helper lift the patient ONLY up? ONLY down? Up AND Down? ONLY up. TRANSFERS: BED, CHAIR, WHEELCHAIR - SCORE: 3-MOD TRANSFERS: TOILET: TRANSFERS: TOILET - STEP 1: Does the patient require the assistance of a person or device, or need extra time with toilet transfe rs? Yes. TRANSFERS: TOILET - STEP 2: Does the patient require the assistance of a helper? Yes. TRANSFERS: TOILET - STEP 3: How much assistance does the patient require from the helper? Patient performs half or more of the tr ansferring tasks TRANSFERS: TOILET - STEP 4: Does the patient need only incidental help such as contact guard or steadying during toilet transfer? No. Patient needs more than incidental help TRANSFERS: TOILET - SCORE: 3-MOD TRANSFERS: SHOWER: Activity did not occur on this shift TRANSFERS: SHOWER - SCORE: 0-UNK TRANSFERS: TUB: Activity did not occur on this shift TRANSFERS: TUB - SCORE: 0-UNK LOCOMOTION: WALK: Activity did not occur on this shift LOCOMOTION: WALK - SCORE: 0-UNK LOCOMOTION: WHEELCHAIR: Activity did not occur on this shift LOCOMOTION: WHEELCHAIR - SCORE: 0-UNK COMPREHENSION: COMPREHENSION: TYPE: Both COMPREHENSION - STEP 1: Does the patient require help from a person or device, or need extra time to understand complex and a bstract ideas (such as current events, finances, discharge planning, medical issues, relationships, e tc)? No. COMPREHENSION - STEP 2: Does the patient need extra time, require an assistive device (such as glasses for visual comprehensi on or a hearing aid for auditory comprehension) or does s/he have mild difficulty understanding compl ex and abstract information? No. COMPREHENSION - SCORE: 7-IND EXPRESSION EXPRESSION: TYPE: Both EXPRESSION - STEP 1: Does the patient require help from a person or device, or need extra time expressing complex and abst ract ideas (such as current events, finances, discharge planning, medical issues, relationships, etc) ? No. EXPRESSION - STEP 2: Does the patient need extra time, require an assistive device (such as augmentive communication syste m or a communication board), OR does s/he have mild difficulty expressing complex and abstract ideas (including mild dysarthria or mild word-find problems)? Yes. EXPRESSION - SCORE: 6-SILVESTRE SOCIAL INTERACTION: SOCIAL INTERACTION - STEP 1: Does the patient require a helper to interact with others in social and therapeutic situations? No. SOCIAL INTERACTION - STEP 2: Does the patient need extra time in social situations, OR does s/he interact with staff, other patien ts, and family members ONLY in structured environments, OR does s/he require medication for social in teraction? Yes, patient needs extra time SOCIAL INTERACTION - SCORE: 6-SILVESTRE PROBLEM SOLVING: PROBLEM SOLVING - STEP 1: Does the patient need help from a person or device, or need extra time to solve complex problems such as managing a checking account or confronting interpersonal problems? No. PROBLEM SOLVING - STEP 2: Does the patient require extra time to make decisions or solve problems, OR does s/he have slight dif ficulty reading, initiating, or self-correcting in unfamiliar situations? Yes, patient needs extra ti me. PROBLEM SOLVING - SCORE: 6-SILVESTRE MEMORY: MEMORY - STEP 1: Does the patient need help from a person or device, or need extra time to remember frequently encount ered people, daily routines, and executing requests? No. MEMORY - STEP 2: Does the patient have slight difficulty recognizing frequently encountered people, daily routines, or executing requests without the need for repetition or using self-initiated or environmental cues to remember? Yes. MEMORY - SCORE: 6-SILVESTRE SIGNATURE PANEL: The following modified sections: Eating - Score, Grooming - Score, Bathing - Score, Dressing - Upper Body - Score, Dressing - Lower Body - Score, Toileting - Score, Bladder Management - Score, Bowel Man agement - Score, Transfers: Bed, Chair, Wheelchair - Score, Transfers: Toilet - Score, Transfers: Melissa wer - Score, Transfers: Tub - Score, Locomotion: Walk - Score, Locomotion: Wheelchair - Score, Compre hension - Score, Expression - Score, Social Interaction - Score, Problem Solving - Score, Memory - Sc ore were [electronically] signed by Wilmar Arboleda on Sun Sep 05 2018 13:35:25 GMT-0500 (Central Daylight Time)
[2018-09-05] MEDS: TAMSULOSIN 0.4 MG SR CAP PO SCH (20:39)
[2018-09-05] MEDS: ATORVASTATIN 10 MG TAB PO SCH (20:39)
[2018-09-05] MEDS: MELATONIN 3 MG TABLET PO PRN (20:45)
--- NOTE | 2018-09-06 01:29 | FAST ---
SHIFT START DATE/TIME: 09/05/2018 19:00 (CDT) SHIFT END DATE/TIME: 09/06/2018 07:00 (CDT) NAME PRICE ROGERS DATE OF : 1940 DATE OF ADMISSION: 07/05/2018 18:33 (CDT) PHONE: AGE: 78 N# [id number] GENDER: Male ENCOUNTER PHYSICIAN: Dr. Abdirahman Zepeda M.D. 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 EATING: Activity did not occur on this shift EATING - SCORE: 0-UNK GROOMING: Wash, rinse, and dry hands GROOMING - STEP 1: Does the patient require the assistance of a person or device, or need extra time when grooming? Yes. GROOMING - STEP 2: Does the patient require the assistance of a helper? Yes. GROOMING - STEP 3: How much assistance does the patient require from the helper? Only prior equipment preparation/set up from the helper GROOMING - SCORE: 5-SUP BATHING: Activity did not occur on this shift BATHING - SCORE: 0-UNK DRESSING - UPPER BODY: Patient is not dressing in public clothing ARTICLES SCORE Total number of steps: 0 DRESSING - UPPER BODY - SCORE: 0-UNK DRESSING - LOWER BODY: Patient is not dressing in public clothing ARTICLES SCORE Total number of steps: 0 DRESSING - LOWER BODY - SCORE: 0-UNK TOILETING: TOILETING - STEP 1: Does the patient require the assistance of a person or device, or need extra time with toileting? Yes . TOILETING - STEP 2: Does the patient require the assistance of a helper? Yes. TOILETING - STEP 3: How much assistance does the patient require from the helper? Hands-on assistance from the helper TOILETING - STEP 4: Of the 3 tasks: 1) Adjusting clothing prior to use, 2) Cleansing of perineal area, 3) Adjusting clot merissa after use; How many tasks does the patient perform WITHOUT assistance of the helper? One task TOILETING - SCORE: 2-MAX BLADDER MANAGEMENT: BLADDER MANAGEMENT - STEP 1: Does the patient control the bladder completely and intentionally without equipment or devices or med ications, and is always continent? No. BLADDER MANAGEMENT - STEP 2: Does the patient require the assistance of a helper? Yes. BLADDER MANAGEMENT - STEP 3: How much assistance does the patient require from the helper? Only set-up of equipment - such as plac ing it within reach of the patient or emptying a device - to maintain either satisfactory voiding pat tern or managing an external device, such as an absorbent pad, ileal device, or catheter BLADDER MANAGEMENT - SCORE: 5-SUP BOWEL MANAGEMENT: BOWEL MANAGEMENT - STEP 1: Does the patient control bowels completely and intentionally without equipment devices or medications AND is always continent? No. BOWEL MANAGEMENT - STEP 2: Does the patient require the assistance of a helper? No, patient requires medication for control such as stool softeners, suppositories, laxatives, enemas, or OTC medications BOWEL MANAGEMENT - SCORE: 6-SILVESTRE TRANSFERS: BED, CHAIR, WHEELCHAIR: TRANSFERS: BED, CHAIR, WHEELCHAIR - STEP 1: Does the patient require assistance of a person or device, or need extra time with bed, chair, or whe elchair transfers? Yes. TRANSFERS: BED, CHAIR, WHEELCHAIR - STEP 2: Does the patient require the assistance of a helper? Yes. TRANSFERS: BED, CHAIR, WHEELCHAIR - STEP 3: How much assistance does the patient require from the helper? Lifting of the patient TRANSFERS: BED, CHAIR, WHEELCHAIR - STEP 4: Does the helper lift the patient ONLY up? ONLY down? Up AND Down? Up AND Down. TRANSFERS: BED, CHAIR, WHEELCHAIR - SCORE: 2-MAX TRANSFERS: TOILET: TRANSFERS: TOILET - STEP 1: Does the patient require the assistance of a person or device, or need extra time with toilet transfe rs? Yes. TRANSFERS: TOILET - STEP 2: Does the patient require the assistance of a helper? Yes. TRANSFERS: TOILET - STEP 3: How much assistance does the patient require from the helper? Patient performs half or more of the tr ansferring tasks TRANSFERS: TOILET - STEP 4: Does the patient need only incidental help such as contact guard or steadying during toilet transfer? No. Patient needs more than incidental help TRANSFERS: TOILET - SCORE: 3-MOD TRANSFERS: SHOWER: Activity did not occur on this shift TRANSFERS: SHOWER - SCORE: 0-UNK TRANSFERS: TUB: Activity did not occur on this shift TRANSFERS: TUB - SCORE: 0-UNK LOCOMOTION: WALK: Activity did not occur on this shift LOCOMOTION: WALK - SCORE: 0-UNK LOCOMOTION: WHEELCHAIR: Activity did not occur on this shift LOCOMOTION: WHEELCHAIR - SCORE: 0-UNK COMPREHENSION: COMPREHENSION: TYPE: Both COMPREHENSION - STEP 1: Does the patient require help from a person or device, or need extra time to understand complex and a bstract ideas (such as current events, finances, discharge planning, medical issues, relationships, e tc)? No. COMPREHENSION - STEP 2: Does the patient need extra time, require an assistive device (such as glasses for visual comprehensi on or a hearing aid for auditory comprehension) or does s/he have mild difficulty understanding compl ex and abstract information? Yes. COMPREHENSION - SCORE: 6-SILVESTRE EXPRESSION EXPRESSION: TYPE: Both EXPRESSION - STEP 1: Does the patient require help from a person or device, or need extra time expressing complex and abst ract ideas (such as current events, finances, discharge planning, medical issues, relationships, etc) ? No. EXPRESSION - STEP 2: Does the patient need extra time, require an assistive device (such as augmentive communication syste m or a communication board), OR does s/he have mild difficulty expressing complex and abstract ideas (including mild dysarthria or mild word-find problems)? No. EXPRESSION - SCORE: 7-IND SOCIAL INTERACTION: SOCIAL INTERACTION - STEP 1: Does the patient require a helper to interact with others in social and therapeutic situations? No. SOCIAL INTERACTION - STEP 2: Does the patient need extra time in social situations, OR does s/he interact with staff, other patien ts, and family members ONLY in structured environments, OR does s/he require medication for social in teraction? Yes, patient requires medication for social interaction SOCIAL INTERACTION - SCORE: 6-SILVESTRE PROBLEM SOLVING: PROBLEM SOLVING - STEP 1: Does the patient need help from a person or device, or need extra time to solve complex problems such as managing a checking account or confronting interpersonal problems? Yes. PROBLEM SOLVING - STEP 2: Does the patient solve basic routine problems half or more of the time? Yes. PROBLEM SOLVING - STEP 3: How often does the patient need help to solve basic routine problems? 10%-24% of the time PROBLEM SOLVING - SCORE: 4-MIN MEMORY: MEMORY - STEP 1: Does the patient need help from a person or device, or need extra time to remember frequently encount ered people, daily routines, and executing requests? No. MEMORY - STEP 2: Does the patient have slight difficulty recognizing frequently encountered people, daily routines, or executing requests without the need for repetition or using self-initiated or environmental cues to remember? Yes. MEMORY - SCORE: 6-SILVESTRE SIGNATURE PANEL: The following modified sections: Eating - Score, Grooming - Score, Dressing - Upper Body - Score, Jitendra ssing - Lower Body - Score, Toileting - Score, Bladder Management - Score, Bowel Management - Score, Transfers: Bed, Chair, Wheelchair - Score, Transfers: Toilet - Score, Transfers: Shower - Score, Good sfers: Tub - Score, Locomotion: Walk - Score, Locomotion: Wheelchair - Score, Comprehension - Score, Expression - Score, Social Interaction - Score, Problem Solving - Score, Memory - Score were [electro nically] signed by Valerie Almanzar CNA on ThuSep 06 2018 01:28:39 GMT-0500 (Central Daylight Time)
[2018-09-06] MEDS: GABAPENTIN 300 MG CAP PO SCH ×3 (08:06→20:32)
[2018-09-06] MEDS: LIDOCAINE 5% PATCH TOP SCH (08:06)
[2018-09-06] MEDS: FUROSEMIDE 20 MG TABLET PO SCH (08:07)
[2018-09-06] MEDS: FLECAINIDE 100 MG TAB PO SCH ×2 (08:07→20:31)
[2018-09-06] MEDS: ONDANSETRON 4 MG (ODT) TAB PO PRN (08:07)
[2018-09-06] MEDS: MAGNESIUM OXIDE 400 MG TAB PO SCH ×2 (08:07→20:32)
[2018-09-06] MEDS: ACETAMINOPHEN 500 MG TAB PO PRN ×2 (08:08→20:39)
[2018-09-06] MEDS: CITALOPRAM 10 MG TABLET PO SCH (08:08)
[2018-09-06] MEDS: APIXABAN 2.5 MG TABLET PO SCH ×2 (08:08→20:32)
[2018-09-06] MEDS: LISINOPRIL 5 MG TAB PO SCH (08:08)
[2018-09-06] MEDS: CYANOCOBALAMIN 1,000 MCG TAB PO SCH (08:08)
[2018-09-06] MEDS: VALSARTAN 80 MG TAB PO SCH (12:00)
--- NOTE | 2018-09-06 12:51 | FAST ---
ENCOUNTER DATE AND TIME: 09/06/2018 08:00 (CDT) NAME PRICE ROGERS DATE OF : 1940 DATE OF ADMISSION: 07/05/2018 18:33 (CDT) PHONE: AGE: 78 SSN# [id number] GENDER: Male ENCOUNTER PHYSICIAN: Dr. Abdirahman Zepeda M.D. 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 EATING: Activity did not occur on this shift EATING - SCORE: 0-UNK GROOMING: Activity did not occur on this shift GROOMING - SCORE: 0-UNK BATHING: Activity did not occur on this shift BATHING - SCORE: 0-UNK DRESSING - UPPER BODY: Activity did not occur on this shift Patient is not dressing in public clothing ARTICLES SCORE Total number of steps: 0 DRESSING - UPPER BODY - SCORE: 0-UNK DRESSING - LOWER BODY: Activity did not occur on this shift Patient is not dressing in public clothing ARTICLES SCORE Total number of steps: 0 DRESSING - LOWER BODY - SCORE: 0-UNK TOILETING: Activity did not occur on this shift TOILETING - SCORE: 0-UNK BLADDER MANAGEMENT: Activity did not occur on this shift BLADDER MANAGEMENT - SCORE: 7-IND BOWEL MANAGEMENT: Activity did not occur on this shift BOWEL MANAGEMENT - SCORE: 7-IND TRANSFERS: BED, CHAIR, WHEELCHAIR: TRANSFERS: BED, CHAIR, WHEELCHAIR - STEP 1: Does the patient require assistance of a person or device, or need extra time with bed, chair, or whe elchair transfers? Yes. TRANSFERS: BED, CHAIR, WHEELCHAIR - STEP 2: Does the patient require the assistance of a helper? Yes. TRANSFERS: BED, CHAIR, WHEELCHAIR - STEP 3: How much assistance does the patient require from the helper? Steadying/guiding assistance TRANSFERS: BED, CHAIR, WHEELCHAIR - SCORE: 4-MIN TRANSFERS: TOILET: Activity did not occur on this shift TRANSFERS: TOILET - SCORE: 0-UNK TRANSFERS: SHOWER: Activity did not occur on this shift TRANSFERS: SHOWER - SCORE: 0-UNK TRANSFERS: TUB: Activity did not occur on this shift TRANSFERS: TUB - SCORE: 0-UNK LOCOMOTION: WALK: LOCOMOTION: WALK - STEP 1: Does the patient need help from a person or device, or need extra time to walk 150 feet? Yes. LOCOMOTION: WALK - STEP 2: How much assistance does the patient require to walk a minimum of 150 feet? Patient walks less than 1 50 feet - but more than 50 feet - with the assistance of only one helper LOCOMOTION: WALK - SCORE: 2-MAX LOCOMOTION: WHEELCHAIR: LOCOMOTION: WHEELCHAIR - STEP 1: Does the patient need help to go 150 feet in a wheelchair? Yes. LOCOMOTION: WHEELCHAIR - STEP 2: How much assistance does the patient need from the helper? Only supervision, cuing, or coaxing LOCOMOTION: WHEELCHAIR - SCORE: 5-SUP LOCOMOTION: STAIRS: Activity did not occur on this shift LOCOMOTION: STAIRS - SCORE: 0-UNK COMPREHENSION: COMPREHENSION - SCORE: 0-UNK EXPRESSION EXPRESSION - SCORE: 0-UNK SOCIAL INTERACTION: SOCIAL INTERACTION - SCORE: 0-UNK PROBLEM SOLVING: PROBLEM SOLVING - SCORE: 0-UNK MEMORY: MEMORY - SCORE: 0-UNK SIGNATURE PANEL: The following modified sections: Transfers: Bed, Chair, Wheelchair - Score, Transfers: Toilet - Score , Locomotion: Walk - Score, Locomotion: Wheelchair - Score, Locomotion: Stairs - Score were [electron icaorion] signed by Skip Phillips PT on ThuSep 06 2018 12:49:54 T-0500 (Central Daylight Time)
[2018-09-06] MEDS: TAMSULOSIN 0.4 MG SR CAP PO SCH (20:31)
[2018-09-06] MEDS: ATORVASTATIN 10 MG TAB PO SCH (20:32)
[2018-09-06] MEDS: MELATONIN 3 MG TABLET PO PRN (22:16)
--- NOTE | 2018-09-07 02:28 | FAST ---
SHIFT START DATE/TIME: 09/06/2018 19:00 (CDT) SHIFT END DATE/TIME: 09/07/2018 07:00 (CDT) NAME PRICE ROGERS DATE OF : 1940 DATE OF ADMISSION: 07/05/2018 18:33 (CDT) PHONE: AGE: 78 N# [id number] GENDER: Male ENCOUNTER PHYSICIAN: Dr. Abdirahman Zepeda M.D. 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 EATING: Activity did not occur on this shift EATING - SCORE: 0-UNK GROOMING: Wash, rinse, and dry hands GROOMING - STEP 1: Does the patient require the assistance of a person or device, or need extra time when grooming? Yes. GROOMING - STEP 2: Does the patient require the assistance of a helper? Yes. GROOMING - STEP 3: How much assistance does the patient require from the helper? Only prior equipment preparation/set up from the helper GROOMING - SCORE: 5-SUP BATHING: Activity did not occur on this shift BATHING - SCORE: 0-UNK DRESSING - UPPER BODY: Patient is not dressing in public clothing ARTICLES SCORE Total number of steps: 0 DRESSING - UPPER BODY - SCORE: 0-UNK DRESSING - LOWER BODY: Patient is not dressing in public clothing ARTICLES SCORE Total number of steps: 0 DRESSING - LOWER BODY - SCORE: 0-UNK TOILETING: TOILETING - STEP 1: Does the patient require the assistance of a person or device, or need extra time with toileting? Yes . TOILETING - STEP 2: Does the patient require the assistance of a helper? Yes. TOILETING - STEP 3: How much assistance does the patient require from the helper? Hands-on assistance from the helper TOILETING - STEP 4: Of the 3 tasks: 1) Adjusting clothing prior to use, 2) Cleansing of perineal area, 3) Adjusting clot merissa after use; How many tasks does the patient perform WITHOUT assistance of the helper? Two tasks TOILETING - SCORE: 3-MOD BLADDER MANAGEMENT: BLADDER MANAGEMENT - STEP 1: Does the patient control the bladder completely and intentionally without equipment or devices or med ications, and is always continent? No. BLADDER MANAGEMENT - STEP 2: Does the patient require the assistance of a helper? Yes. BLADDER MANAGEMENT - STEP 3: How much assistance does the patient require from the helper? Only set-up of equipment - such as plac ing it within reach of the patient or emptying a device - to maintain either satisfactory voiding pat tern or managing an external device, such as an absorbent pad, ileal device, or catheter BLADDER MANAGEMENT - SCORE: 5-SUP BOWEL MANAGEMENT: BOWEL MANAGEMENT - STEP 1: Does the patient control bowels completely and intentionally without equipment devices or medications AND is always continent? No. BOWEL MANAGEMENT - STEP 2: Does the patient require the assistance of a helper? No, patient requires medication for control such as stool softeners, suppositories, laxatives, enemas, or OTC medications BOWEL MANAGEMENT - SCORE: 6-SILVESTRE TRANSFERS: BED, CHAIR, WHEELCHAIR: TRANSFERS: BED, CHAIR, WHEELCHAIR - STEP 1: Does the patient require assistance of a person or device, or need extra time with bed, chair, or whe elchair transfers? Yes. TRANSFERS: BED, CHAIR, WHEELCHAIR - STEP 2: Does the patient require the assistance of a helper? Yes. TRANSFERS: BED, CHAIR, WHEELCHAIR - STEP 3: How much assistance does the patient require from the helper? Lifting of the legs TRANSFERS: BED, CHAIR, WHEELCHAIR - STEP 4: How many legs does the patient require the helper to lift? both legs TRANSFERS: BED, CHAIR, WHEELCHAIR - SCORE: 3-MOD TRANSFERS: TOILET: TRANSFERS: TOILET - STEP 1: Does the patient require the assistance of a person or device, or need extra time with toilet transfe rs? Yes. TRANSFERS: TOILET - STEP 2: Does the patient require the assistance of a helper? Yes. TRANSFERS: TOILET - STEP 3: How much assistance does the patient require from the helper? Patient performs half or more of the tr ansferring tasks TRANSFERS: TOILET - STEP 4: Does the patient need only incidental help such as contact guard or steadying during toilet transfer? Yes. TRANSFERS: TOILET - SCORE: 4-MIN TRANSFERS: SHOWER: Activity did not occur on this shift TRANSFERS: SHOWER - SCORE: 0-UNK TRANSFERS: TUB: Activity did not occur on this shift TRANSFERS: TUB - SCORE: 0-UNK LOCOMOTION: WALK: Activity did not occur on this shift LOCOMOTION: WALK - SCORE: 0-UNK LOCOMOTION: WHEELCHAIR: Activity did not occur on this shift LOCOMOTION: WHEELCHAIR - SCORE: 0-UNK COMPREHENSION: COMPREHENSION: TYPE: Both COMPREHENSION - STEP 1: Does the patient require help from a person or device, or need extra time to understand complex and a bstract ideas (such as current events, finances, discharge planning, medical issues, relationships, e tc)? No. COMPREHENSION - STEP 2: Does the patient need extra time, require an assistive device (such as glasses for visual comprehensi on or a hearing aid for auditory comprehension) or does s/he have mild difficulty understanding compl ex and abstract information? Yes. COMPREHENSION - SCORE: 6-SILVESTRE EXPRESSION EXPRESSION: TYPE: Both EXPRESSION - STEP 1: Does the patient require help from a person or device, or need extra time expressing complex and abst ract ideas (such as current events, finances, discharge planning, medical issues, relationships, etc) ? No. EXPRESSION - STEP 2: Does the patient need extra time, require an assistive device (such as augmentive communication syste m or a communication board), OR does s/he have mild difficulty expressing complex and abstract ideas (including mild dysarthria or mild word-find problems)? No. EXPRESSION - SCORE: 7-IND SOCIAL INTERACTION: SOCIAL INTERACTION - STEP 1: Does the patient require a helper to interact with others in social and therapeutic situations? No. SOCIAL INTERACTION - STEP 2: Does the patient need extra time in social situations, OR does s/he interact with staff, other patien ts, and family members ONLY in structured environments, OR does s/he require medication for social in teraction? Yes, patient requires medication for social interaction SOCIAL INTERACTION - SCORE: 6-SILVESTRE PROBLEM SOLVING: PROBLEM SOLVING - STEP 1: Does the patient need help from a person or device, or need extra time to solve complex problems such as managing a checking account or confronting interpersonal problems? Yes. PROBLEM SOLVING - STEP 2: Does the patient solve basic routine problems half or more of the time? Yes. PROBLEM SOLVING - STEP 3: How often does the patient need help to solve basic routine problems? Less than 10% of the time PROBLEM SOLVING - SCORE: 5-SUP MEMORY: MEMORY - STEP 1: Does the patient need help from a person or device, or need extra time to remember frequently encount ered people, daily routines, and executing requests? No. MEMORY - STEP 2: Does the patient have slight difficulty recognizing frequently encountered people, daily routines, or executing requests without the need for repetition or using self-initiated or environmental cues to remember? Yes. MEMORY - SCORE: 6-SILVESTRE SIGNATURE PANEL: The following modified sections: Eating - Score, Grooming - Score, Dressing - Upper Body - Score, Jitendra ssing - Lower Body - Score, Toileting - Score, Bladder Management - Score, Bowel Management - Score, Transfers: Bed, Chair, Wheelchair - Score, Transfers: Toilet - Score, Transfers: Shower - Score, Good sfers: Tub - Score, Locomotion: Walk - Score, Locomotion: Wheelchair - Score, Comprehension - Score, Expression - Score, Social Interaction - Score, Problem Solving - Score, Memory - Score were [electro nically] signed by Valerie Almanzar CNA on ThuSep 07 2018 02:27:48 GMT-0500 (Central Daylight Time)
[2018-09-07] MEDS: CITALOPRAM 10 MG TABLET PO SCH (08:05)
[2018-09-07] MEDS: GABAPENTIN 300 MG CAP PO SCH ×3 (08:06→20:19)
[2018-09-07] MEDS: ONDANSETRON 4 MG (ODT) TAB PO PRN (08:06)
[2018-09-07] MEDS: FUROSEMIDE 20 MG TABLET PO SCH (08:07)
[2018-09-07] MEDS: FLECAINIDE 100 MG TAB PO SCH ×2 (08:07→20:19)
[2018-09-07] MEDS: MAGNESIUM OXIDE 400 MG TAB PO SCH ×2 (08:07→20:20)
[2018-09-07] MEDS: APIXABAN 2.5 MG TABLET PO SCH ×2 (08:07→20:20)
[2018-09-07] MEDS: LISINOPRIL 5 MG TAB PO SCH (08:08)
[2018-09-07] MEDS: CYANOCOBALAMIN 1,000 MCG TAB PO SCH (08:09)
[2018-09-07] MEDS: ACETAMINOPHEN 500 MG TAB PO PRN ×3 (08:09→18:18)
[2018-09-07] MEDS: LIDOCAINE 5% PATCH TOP SCH (08:15)
[2018-09-07] MEDS: VALSARTAN 80 MG TAB PO SCH (12:00)
--- NOTE | 2018-09-07 14:46 | FAST ---
ENCOUNTER DATE AND TIME: 09/07/2018 08:00 (CDT) NAME PRICE ROGERS DATE OF : 1940 DATE OF ADMISSION: 07/05/2018 18:33 (CDT) PHONE: AGE: 78 SSN# [id number] GENDER: Male ENCOUNTER PHYSICIAN: Dr. Abdirahman Zepeda M.D. 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 EATING: Activity did not occur on this shift EATING - SCORE: 0-UNK GROOMING: Activity did not occur on this shift GROOMING - SCORE: 0-UNK BATHING: Activity did not occur on this shift BATHING - SCORE: 0-UNK DRESSING - UPPER BODY: Activity did not occur on this shift Patient is not dressing in public clothing ARTICLES SCORE Total number of steps: 0 DRESSING - UPPER BODY - SCORE: 0-UNK DRESSING - LOWER BODY: Activity did not occur on this shift Patient is not dressing in public clothing ARTICLES SCORE Total number of steps: 0 DRESSING - LOWER BODY - SCORE: 0-UNK TOILETING: Activity did not occur on this shift TOILETING - SCORE: 0-UNK BLADDER MANAGEMENT: Activity did not occur on this shift BLADDER MANAGEMENT - SCORE: 7-IND BOWEL MANAGEMENT: Activity did not occur on this shift BOWEL MANAGEMENT - SCORE: 7-IND TRANSFERS: BED, CHAIR, WHEELCHAIR: TRANSFERS: BED, CHAIR, WHEELCHAIR - STEP 1: Does the patient require assistance of a person or device, or need extra time with bed, chair, or whe elchair transfers? Yes. TRANSFERS: BED, CHAIR, WHEELCHAIR - STEP 2: Does the patient require the assistance of a helper? Yes. TRANSFERS: BED, CHAIR, WHEELCHAIR - STEP 3: How much assistance does the patient require from the helper? Steadying/guiding assistance TRANSFERS: BED, CHAIR, WHEELCHAIR - SCORE: 4-MIN TRANSFERS: TOILET: Activity did not occur on this shift TRANSFERS: TOILET - SCORE: 0-UNK TRANSFERS: SHOWER: Activity did not occur on this shift TRANSFERS: SHOWER - SCORE: 0-UNK TRANSFERS: TUB: Activity did not occur on this shift TRANSFERS: TUB - SCORE: 0-UNK LOCOMOTION: WALK: LOCOMOTION: WALK - STEP 1: Does the patient need help from a person or device, or need extra time to walk 150 feet? Yes. LOCOMOTION: WALK - STEP 2: How much assistance does the patient require to walk a minimum of 150 feet? Patient walks less than 1 50 feet - but more than 50 feet - with the assistance of only one helper LOCOMOTION: WALK - SCORE: 2-MAX LOCOMOTION: WHEELCHAIR: LOCOMOTION: WHEELCHAIR - STEP 1: Does the patient need help to go 150 feet in a wheelchair? Yes. LOCOMOTION: WHEELCHAIR - STEP 2: How much assistance does the patient need from the helper? Only incidental help such as around corner s or over thresholds LOCOMOTION: WHEELCHAIR - SCORE: 4-MIN LOCOMOTION: STAIRS: Patient goes up and down less than 4 to 6 stairs LOCOMOTION: STAIRS - SCORE: 1-DEP COMPREHENSION: COMPREHENSION - SCORE: 0-UNK EXPRESSION EXPRESSION - SCORE: 0-UNK SOCIAL INTERACTION: SOCIAL INTERACTION - SCORE: 0-UNK PROBLEM SOLVING: PROBLEM SOLVING - SCORE: 0-UNK MEMORY: MEMORY - SCORE: 0-UNK SIGNATURE PANEL: The following modified sections: Transfers: Bed, Chair, Wheelchair - Score, Transfers: Toilet - Score , Locomotion: Walk - Score, Locomotion: Wheelchair - Score, Locomotion: Stairs - Score were [electron daphney] signed by Lorne Garcia PTA on ThuSep 07 2018 14:45:21 GMT-0500 (Central Daylight Time)
[2018-09-07] MEDS: [UNRECOGNIZED DRUG - MIXTURE] EACH EYE PRN ×2 (14:59→20:21)
--- NOTE | 2018-09-07 19:21 | R.PN ---
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 SUBJECTIVE: Pt denied any Shortness of Breath. Pt denied any depression. Patient states that pain is under control. Hgb 12.0, WBC 6.4, prealbumin 20.7. Functional transfers done with total assistance. He ambulated 145' with standby assistance using a right hand hemiwalker. Self-propelled wheelchair 25 0' with contact guard assistance. Up and down 3 steps with min assistance. left hip x-ray shows no fractures. Therapeutic exercises done with contact guard assistance and multiple rest breaks. He had nausea, abdominal pain and loose stools. His LFTs were normal. VITAL SIGNS Temperature: 97.8 F SBP/DBP: 114/58 Pulse: 68 Resp: 16 MEDICATION ALLERGIES: No Known Drug Allergies (NKDA) ENVIRONMENTAL ALLERGIES: None Known - Substance Allergies None Known - Other Allergies None Known NURSING: - Shower allowing shower - Bladder care per protocol - Skin care per protocol PRECAUTIONS: - Weight Bearing Precaution WBAT left LE ACTIVITIES OOB only with supervision THERAPIES: - Occupational Therapy Evaluate and Treat. Visual Perceptual Training. Cognitive Retraining. - Speech Therapy Cognitive Training. Memory Strategies. Expressive Language Skills. Speech Intelligibility Training. R eceptive Language Skills. Dysphagia Therapy. - Physical Therapy Evaluate and Treat. PHYSICAL EXAM - Gen Alert and awake Lying in bed No apparent distress Oriented to: person, time, and place - Skin No beakdown No abnormalities - Eyes No abnormalities - ENMT No abnormalities - Neck No abnormalities - CVS RRR - Chest No abnormalities - Resp Clear to auscultation - Abd + bowel sounds - GI nondistended Deferred - No abnormalities - Ext Mild left lower extremity edema. - MSK 0/5 strength in the left upper extremity and 2+/5 weakness in left lower extremity. - Neuro 0/5 strength in the left upper extremity and 2+/5 weakness in left lower extremity. - Psych No abnormalities ASSESSMENT: Pt. is a 78 yo Right-handed white male.On 06/25/2018 Pt. presented to [facility] with sudden on set of left-side weakness.On 06/25/2018 he was admitted to [facility] with diagnosis Right MCA. His impairment category is Stroke 01 - Left Body (Right Brain) (01.1).Pre-morbidly, Pt. was independ ent/mod-I in Self-Care, Sphincter Control, Transfers Control, Locomotion, Communication, and Social C ognition; and he had good Sphincter Control.Currently, he has deficits of Self-Care, Transfers Contro l, Locomotion, Communication, Social Cognition, Endurance, Balance, and Safety Awareness.Pt. is now r eferred to [facility] for acute in-patient rehabilitation in order to maximize patient's functional independence in activities of daily living, strength, ROM, and mobility.- Rehab Goal Patient has realistic goal of being discharged at assistance level 6-Maria E to reside at Home with Fam linda/Relatives. MDM/PLAN: - Physical Therapy Gait dysfunction - to improve, our physical therapists will perform initial evaluation of pt's statu s upon admission and devise an individualized program for Gait Training, and Wheel Chair mobility Inability to transfer - to improve, our physical therapists will perform initial evaluation of pt's status upon admission and devise an individualized program for Bed mobility Need for home safety evaluation - to improve, our physical therapists will perform initial evaluatio n of pt's status upon admission and devise an individualized program for Home Evaluation Need in caregiver upon discharge - to improve, our physical therapists will perform initial evaluati on of pt's status upon admission and devise an individualized program for Caregiver Training Edema - to improve, our physical therapists will perform initial evaluation of pt's status upon admi ssion and devise an individualized program for Elevation Training, and Lymphedema Therapy New precaution - to improve, our physical therapists will perform initial evaluation of pt's status upon admission and devise an individualized program for Patient precaution education Poor balance - to improve, our physical therapists will perform initial evaluation of pt's status up on admission and devise an individualized program for Balance Training Poor endurance - to improve, our physical therapists will perform initial evaluation of pt's status upon admission and devise an individualized program for Endurance Training Weakness - to improve, our physical therapists will perform initial evaluation of pt's status upon a dmission and devise an individualized program for Aquatic Therapy, Neuromuscular Reeducation, and Str engthening Achieving independence - to improve, our physical therapists will perform initial evaluation of pt's status upon admission and devise an individualized program for Community Reintegration Activities - Occupational Therapy ADL deficits - to improve, our occupation therapists will perform initial evaluation of pt's status upon admission and devise an individualized program for Bathing, Bed mobility, Community Reintegratio n, Cooking, Dressing, Eating, Fine Motor Skills, Grooming, Homemaking, Kitchen Mobility, Laundry, Pat ient Education, Safety Awareness, Splinting - Positioning, Transfers(Toilet, Tub, Shower), and Wheel Chair Management Cognitive deficits - to improve, our occupation therapists will perform initial evaluation of pt's s tatus upon admission and devise an individualized program for Cognition - orientation Need for complex care nurse practitioner - to improve, our occupation therapists will perform initial evaluation of pt's status upon admission and devise an individualized program for Caregiver Training Weakness - to improve, our occupation therapists will perform initial evaluation of pt's status upon admission and devise an individualized program for Aquatic Therapy, Balance, Endurance, UE ROM, and UE strengthening - Diet Type Continue Regular - Diet - Liquid Texture Continue Thin - Tube Feed Continue N/A - Bladder care per protocol - Weight Bearing Precaution WBAT left LE - Skin care per protocol - Diet - Solid Texture Continue Regular Continue Mechanical Soft (Ground) - Shower allowing shower for Dementia, TBI, Stroke, or others FUNCTIONAL STATUS: UPDATED AT WEEKLY TEAM CONFERENCE - Bladder Same accident frequency: 7-Ind - No accidents in the past 7 days - Bowel Same accident frequency: 7-Ind - No accidents in the past 7 days - Walking Same score based on distance walked: 0(N/A) - Wheelchair Same score based on distance traveled: 0(N/A) FUNCTIONAL STATUS: - Self-Care A. Eating sup B. Grooming Anil C. Bathing maxA D. Dressing - Upper Anil E. Dressing - Lower maxA F. Toileting maxA - Sphincter Control G: Bladder control Ind H: Bowel control Ind - Transfers Control I. Bed/Chair/Wheelchair maxA J. Toilet maxA K. Tub/Shower ADNO - Locomotion L. Walk/Wheelchair (C) Dep L. Walk/Wheelchair (W) Dep M. Stairs ADNO - Communication N. Comprehension (B) Anil O. Expression (B) Anil - Social Cognition P. Social Interaction Anil Q. Problem Solving Anil R. Memory Anil - Endurance Fair - Balance Poor - Safety Awareness Fair CURRENT [facility]. DEFICITS: Self-Care, Transfers Control, Locomotion, Communication, Social Cognition, Endurance, Balance, and Sa fety Awareness SIGNATURE PANEL: (CDT)
[2018-09-07] MEDS: TAMSULOSIN 0.4 MG SR CAP PO SCH (20:19)
[2018-09-07] MEDS: ATORVASTATIN 10 MG TAB PO SCH (20:19)
[2018-09-07] MEDS: MELATONIN 3 MG TABLET PO PRN (20:21)
--- NOTE | 2018-09-08 02:59 | FAST ---
SHIFT START DATE/TIME: 09/07/2018 19:00 (CDT) SHIFT END DATE/TIME: 09/08/2018 07:00 (CDT) NAME PRICE ROGERS DATE OF : 1940 DATE OF ADMISSION: 07/05/2018 18:33 (CDT) PHONE: AGE: 78 N# [id number] GENDER: Male ENCOUNTER PHYSICIAN: Dr. Abdirahman Zepeda M.D. 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 EATING: Activity did not occur on this shift EATING - SCORE: 0-UNK GROOMING: Wash, rinse, and dry hands GROOMING - STEP 1: Does the patient require the assistance of a person or device, or need extra time when grooming? Yes. GROOMING - STEP 2: Does the patient require the assistance of a helper? Yes. GROOMING - STEP 3: How much assistance does the patient require from the helper? Only prior equipment preparation/set up from the helper GROOMING - SCORE: 5-SUP BATHING: Activity did not occur on this shift BATHING - SCORE: 0-UNK DRESSING - UPPER BODY: Patient is not dressing in public clothing ARTICLES SCORE Total number of steps: 0 DRESSING - UPPER BODY - SCORE: 0-UNK DRESSING - LOWER BODY: Patient is not dressing in public clothing ARTICLES SCORE Total number of steps: 0 DRESSING - LOWER BODY - SCORE: 0-UNK TOILETING: TOILETING - STEP 1: Does the patient require the assistance of a person or device, or need extra time with toileting? Yes . TOILETING - STEP 2: Does the patient require the assistance of a helper? Yes. TOILETING - STEP 3: How much assistance does the patient require from the helper? Hands-on assistance from the helper TOILETING - STEP 4: Of the 3 tasks: 1) Adjusting clothing prior to use, 2) Cleansing of perineal area, 3) Adjusting clot merissa after use; How many tasks does the patient perform WITHOUT assistance of the helper? One task TOILETING - SCORE: 2-MAX BLADDER MANAGEMENT: BLADDER MANAGEMENT - STEP 1: Does the patient control the bladder completely and intentionally without equipment or devices or med ications, and is always continent? No. BLADDER MANAGEMENT - STEP 2: Does the patient require the assistance of a helper? Yes. BLADDER MANAGEMENT - STEP 3: How much assistance does the patient require from the helper? Only set-up of equipment - such as plac ing it within reach of the patient or emptying a device - to maintain either satisfactory voiding pat tern or managing an external device, such as an absorbent pad, ileal device, or catheter BLADDER MANAGEMENT - SCORE: 5-SUP BOWEL MANAGEMENT: BOWEL MANAGEMENT - STEP 1: Does the patient control bowels completely and intentionally without equipment devices or medications AND is always continent? No. BOWEL MANAGEMENT - STEP 2: Does the patient require the assistance of a helper? No, patient requires medication for control such as stool softeners, suppositories, laxatives, enemas, or OTC medications BOWEL MANAGEMENT - SCORE: 6-SILVESTRE TRANSFERS: BED, CHAIR, WHEELCHAIR: TRANSFERS: BED, CHAIR, WHEELCHAIR - STEP 1: Does the patient require assistance of a person or device, or need extra time with bed, chair, or whe elchair transfers? Yes. TRANSFERS: BED, CHAIR, WHEELCHAIR - STEP 2: Does the patient require the assistance of a helper? Yes. TRANSFERS: BED, CHAIR, WHEELCHAIR - STEP 3: How much assistance does the patient require from the helper? Steadying/guiding assistance TRANSFERS: BED, CHAIR, WHEELCHAIR - SCORE: 4-MIN TRANSFERS: TOILET: TRANSFERS: TOILET - STEP 1: Does the patient require the assistance of a person or device, or need extra time with toilet transfe rs? Yes. TRANSFERS: TOILET - STEP 2: Does the patient require the assistance of a helper? Yes. TRANSFERS: TOILET - STEP 3: How much assistance does the patient require from the helper? Only supervision, cuing, coaxing, OR he lp to set out transfer equipment or to lock brakes and/or lift foot rests TRANSFERS: TOILET - SCORE: 5-SUP TRANSFERS: SHOWER: Activity did not occur on this shift TRANSFERS: SHOWER - SCORE: 0-UNK TRANSFERS: TUB: Activity did not occur on this shift TRANSFERS: TUB - SCORE: 0-UNK LOCOMOTION: WALK: Activity did not occur on this shift LOCOMOTION: WALK - SCORE: 0-UNK LOCOMOTION: WHEELCHAIR: Activity did not occur on this shift LOCOMOTION: WHEELCHAIR - SCORE: 0-UNK COMPREHENSION: COMPREHENSION: TYPE: Both COMPREHENSION - STEP 1: Does the patient require help from a person or device, or need extra time to understand complex and a bstract ideas (such as current events, finances, discharge planning, medical issues, relationships, e tc)? No. COMPREHENSION - STEP 2: Does the patient need extra time, require an assistive device (such as glasses for visual comprehensi on or a hearing aid for auditory comprehension) or does s/he have mild difficulty understanding compl ex and abstract information? Yes. COMPREHENSION - SCORE: 6-SILVESTRE EXPRESSION EXPRESSION: TYPE: Both EXPRESSION - STEP 1: Does the patient require help from a person or device, or need extra time expressing complex and abst ract ideas (such as current events, finances, discharge planning, medical issues, relationships, etc) ? No. EXPRESSION - STEP 2: Does the patient need extra time, require an assistive device (such as augmentive communication syste m or a communication board), OR does s/he have mild difficulty expressing complex and abstract ideas (including mild dysarthria or mild word-find problems)? No. EXPRESSION - SCORE: 7-IND SOCIAL INTERACTION: SOCIAL INTERACTION - STEP 1: Does the patient require a helper to interact with others in social and therapeutic situations? No. SOCIAL INTERACTION - STEP 2: Does the patient need extra time in social situations, OR does s/he interact with staff, other patien ts, and family members ONLY in structured environments, OR does s/he require medication for social in teraction? Yes, patient requires medication for social interaction SOCIAL INTERACTION - SCORE: 6-SILVESTRE PROBLEM SOLVING: PROBLEM SOLVING - STEP 1: Does the patient need help from a person or device, or need extra time to solve complex problems such as managing a checking account or confronting interpersonal problems? Yes. PROBLEM SOLVING - STEP 2: Does the patient solve basic routine problems half or more of the time? Yes. PROBLEM SOLVING - STEP 3: How often does the patient need help to solve basic routine problems? 10%-24% of the time PROBLEM SOLVING - SCORE: 4-MIN MEMORY: MEMORY - STEP 1: Does the patient need help from a person or device, or need extra time to remember frequently encount ered people, daily routines, and executing requests? No. MEMORY - STEP 2: Does the patient have slight difficulty recognizing frequently encountered people, daily routines, or executing requests without the need for repetition or using self-initiated or environmental cues to remember? Yes. MEMORY - SCORE: 6-SILVESTRE SIGNATURE PANEL: The following modified sections: Eating - Score, Grooming - Score, Dressing - Upper Body - Score, Jitendra ssing - Lower Body - Score, Toileting - Score, Bladder Management - Score, Bowel Management - Score, Transfers: Bed, Chair, Wheelchair - Score, Transfers: Toilet - Score, Transfers: Shower - Score, Good sfers: Tub - Score, Locomotion: Walk - Score, Locomotion: Wheelchair - Score, Comprehension - Score, Expression - Score, Social Interaction - Score, Problem Solving - Score, Memory - Score were [electro nically] signed by Valerie Almanzar CNA on ThuSep 08 2018 02:59:10 GMT-0500 (Central Daylight Time)
[2018-09-08] MEDS: ACETAMINOPHEN 500 MG TAB PO PRN ×3 (08:09→19:52)
[2018-09-08] MEDS: CITALOPRAM 10 MG TABLET PO SCH (08:11)
[2018-09-08] MEDS: MAGNESIUM OXIDE 400 MG TAB PO SCH ×2 (08:12→19:54)
[2018-09-08] MEDS: FLECAINIDE 100 MG TAB PO SCH ×2 (08:12→19:54)
[2018-09-08] MEDS: GABAPENTIN 300 MG CAP PO SCH ×3 (08:13→19:53)
[2018-09-08] MEDS: LISINOPRIL 5 MG TAB PO SCH (08:13)
[2018-09-08] MEDS: APIXABAN 2.5 MG TABLET PO SCH ×2 (08:13→19:54)
[2018-09-08] MEDS: CYANOCOBALAMIN 1,000 MCG TAB PO SCH (08:13)
[2018-09-08] MEDS: FUROSEMIDE 20 MG TABLET PO SCH (08:14)
[2018-09-08] MEDS: LIDOCAINE 5% PATCH TOP SCH (09:28)
[2018-09-08] MEDS: VALSARTAN 80 MG TAB PO SCH (11:47)
--- NOTE | 2018-09-08 13:02 | FAST ---
SHIFT START DATE/TIME: 09/08/2018 07:00 (CDT) SHIFT END DATE/TIME: 09/08/2018 19:00 (CDT) NAME PRICE ROGERS DATE OF : 1940 DATE OF ADMISSION: 07/05/2018 18:33 (CDT) PHONE: AGE: 78 N# [id number] GENDER: Male ENCOUNTER PHYSICIAN: Dr. Abdirahman Zepeda M.D. 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 EATING: EATING - STEP 1: Does the patient require the assistance of a person or device, or need extra time when eating? Yes. EATING - STEP 2: Does the patient require the assistance of a helper? Yes. EATING - STEP 3: Does the patient perform half or more of the eating tasks? Yes. EATING - STEP 4: Does the patient need only supervision, cuing, coaxing OR help to apply an orthosis OR help to cut fo od, open containers, pour liquids, or butter bread? Yes. EATING - SCORE: 5-SUP GROOMING: GROOMING - STEP 1: Does the patient require the assistance of a person or device, or need extra time when grooming? No. GROOMING - SCORE: 7-IND BATHING: Activity did not occur on this shift BATHING - SCORE: 0-UNK DRESSING - UPPER BODY: Activity did not occur on this shift ARTICLES SCORE Total number of steps: 0 DRESSING - UPPER BODY - SCORE: 0-UNK DRESSING - LOWER BODY: Activity did not occur on this shift ARTICLES SCORE Total number of steps: 0 DRESSING - LOWER BODY - SCORE: 0-UNK TOILETING: TOILETING - STEP 1: Does the patient require the assistance of a person or device, or need extra time with toileting? Yes . TOILETING - STEP 2: Does the patient require the assistance of a helper? Yes. TOILETING - STEP 3: How much assistance does the patient require from the helper? Hands-on assistance from the helper TOILETING - STEP 4: Of the 3 tasks: 1) Adjusting clothing prior to use, 2) Cleansing of perineal area, 3) Adjusting clot merissa after use; How many tasks does the patient perform WITHOUT assistance of the helper? Two tasks TOILETING - SCORE: 3-MOD BLADDER MANAGEMENT: BLADDER MANAGEMENT - STEP 1: Does the patient control the bladder completely and intentionally without equipment or devices or med ications, and is always continent? No. BLADDER MANAGEMENT - STEP 2: Does the patient require the assistance of a helper? No, patient requires and independently uses an a ssistive device, such as a urinal, bedpan, bedside commode, catheter, absorbent pad, or collecting de vice BLADDER MANAGEMENT - SCORE: 6-SILVESTRE BOWEL MANAGEMENT: Activity did not occur on this shift BOWEL MANAGEMENT - SCORE: 7-IND TRANSFERS: BED, CHAIR, WHEELCHAIR: TRANSFERS: BED, CHAIR, WHEELCHAIR - STEP 1: Does the patient require assistance of a person or device, or need extra time with bed, chair, or whe elchair transfers? Yes. TRANSFERS: BED, CHAIR, WHEELCHAIR - STEP 2: Does the patient require the assistance of a helper? Yes. TRANSFERS: BED, CHAIR, WHEELCHAIR - STEP 3: How much assistance does the patient require from the helper? Steadying/guiding assistance TRANSFERS: BED, CHAIR, WHEELCHAIR - SCORE: 4-MIN TRANSFERS: TOILET: TRANSFERS: TOILET - STEP 1: Does the patient require the assistance of a person or device, or need extra time with toilet transfe rs? Yes. TRANSFERS: TOILET - STEP 2: Does the patient require the assistance of a helper? Yes. TRANSFERS: TOILET - STEP 3: How much assistance does the patient require from the helper? Patient performs half or more of the tr ansferring tasks TRANSFERS: TOILET - STEP 4: Does the patient need only incidental help such as contact guard or steadying during toilet transfer? No. Patient needs more than incidental help TRANSFERS: TOILET - SCORE: 3-MOD TRANSFERS: SHOWER: Activity did not occur on this shift TRANSFERS: SHOWER - SCORE: 0-UNK TRANSFERS: TUB: Activity did not occur on this shift TRANSFERS: TUB - SCORE: 0-UNK LOCOMOTION: WALK: Activity did not occur on this shift LOCOMOTION: WALK - SCORE: 0-UNK LOCOMOTION: WHEELCHAIR: Activity did not occur on this shift LOCOMOTION: WHEELCHAIR - SCORE: 0-UNK COMPREHENSION: COMPREHENSION: TYPE: Both COMPREHENSION - STEP 1: Does the patient require help from a person or device, or need extra time to understand complex and a bstract ideas (such as current events, finances, discharge planning, medical issues, relationships, e tc)? No. COMPREHENSION - STEP 2: Does the patient need extra time, require an assistive device (such as glasses for visual comprehensi on or a hearing aid for auditory comprehension) or does s/he have mild difficulty understanding compl ex and abstract information? Yes. COMPREHENSION - SCORE: 6-SILVESTRE EXPRESSION EXPRESSION: TYPE: Both EXPRESSION - STEP 1: Does the patient require help from a person or device, or need extra time expressing complex and abst ract ideas (such as current events, finances, discharge planning, medical issues, relationships, etc) ? No. EXPRESSION - STEP 2: Does the patient need extra time, require an assistive device (such as augmentive communication syste m or a communication board), OR does s/he have mild difficulty expressing complex and abstract ideas (including mild dysarthria or mild word-find problems)? Yes. EXPRESSION - SCORE: 6-SILVESTRE SOCIAL INTERACTION: SOCIAL INTERACTION - STEP 1: Does the patient require a helper to interact with others in social and therapeutic situations? No. SOCIAL INTERACTION - STEP 2: Does the patient need extra time in social situations, OR does s/he interact with staff, other patien ts, and family members ONLY in structured environments, OR does s/he require medication for social in teraction? Yes, patient needs extra time SOCIAL INTERACTION - SCORE: 6-SILVESTRE PROBLEM SOLVING: PROBLEM SOLVING - STEP 1: Does the patient need help from a person or device, or need extra time to solve complex problems such as managing a checking account or confronting interpersonal problems? No. PROBLEM SOLVING - STEP 2: Does the patient require extra time to make decisions or solve problems, OR does s/he have slight dif ficulty reading, initiating, or self-correcting in unfamiliar situations? Yes, patient needs extra ti me. PROBLEM SOLVING - SCORE: 6-SILVESTRE MEMORY: MEMORY - STEP 1: Does the patient need help from a person or device, or need extra time to remember frequently encount ered people, daily routines, and executing requests? No. MEMORY - STEP 2: Does the patient have slight difficulty recognizing frequently encountered people, daily routines, or executing requests without the need for repetition or using self-initiated or environmental cues to remember? Yes. MEMORY - SCORE: 6-SILVESTRE SIGNATURE PANEL: The following modified sections: Eating - Score, Grooming - Score, Bathing - Score, Dressing - Upper Body - Score, Dressing - Lower Body - Score, Toileting - Score, Bladder Management - Score, Bowel Man agement - Score, Transfers: Bed, Chair, Wheelchair - Score, Transfers: Toilet - Score, Transfers: Melissa wer - Score, Transfers: Tub - Score, Locomotion: Walk - Score, Locomotion: Wheelchair - Score, Compre hension - Score, Expression - Score, Social Interaction - Score, Problem Solving - Score, Memory - Sc ore were [electronically] signed by Wilmar Arboleda on ThuSep 08 2018 13:02:01 GMT-0500 (Central Daylight Time)
--- NOTE | 2018-09-08 16:20 | FAST ---
ENCOUNTER DATE AND TIME: 09/08/2018 08:00 (CDT) NAME PRICE ROGERS DATE OF : 1940 DATE OF ADMISSION: 07/05/2018 18:33 (CDT) PHONE: AGE: 78 SSN# [id number] GENDER: Male ENCOUNTER PHYSICIAN: Dr. Abdirahman Zepeda M.D. 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 EATING: Activity did not occur on this shift EATING - SCORE: 0-UNK GROOMING: Activity did not occur on this shift GROOMING - SCORE: 0-UNK BATHING: Activity did not occur on this shift BATHING - SCORE: 0-UNK DRESSING - UPPER BODY: Activity did not occur on this shift Patient is not dressing in public clothing ARTICLES SCORE Total number of steps: 0 DRESSING - UPPER BODY - SCORE: 0-UNK DRESSING - LOWER BODY: Activity did not occur on this shift Patient is not dressing in public clothing ARTICLES SCORE Total number of steps: 0 DRESSING - LOWER BODY - SCORE: 0-UNK TOILETING: Activity did not occur on this shift TOILETING - SCORE: 0-UNK BLADDER MANAGEMENT: Activity did not occur on this shift BLADDER MANAGEMENT - SCORE: 7-IND BOWEL MANAGEMENT: Activity did not occur on this shift BOWEL MANAGEMENT - SCORE: 7-IND TRANSFERS: BED, CHAIR, WHEELCHAIR: TRANSFERS: BED, CHAIR, WHEELCHAIR - STEP 1: Does the patient require assistance of a person or device, or need extra time with bed, chair, or whe elchair transfers? Yes. TRANSFERS: BED, CHAIR, WHEELCHAIR - STEP 2: Does the patient require the assistance of a helper? Yes. TRANSFERS: BED, CHAIR, WHEELCHAIR - STEP 3: How much assistance does the patient require from the helper? Only supervision TRANSFERS: BED, CHAIR, WHEELCHAIR - SCORE: 5-SUP TRANSFERS: TOILET: TRANSFERS: TOILET - STEP 1: Does the patient require the assistance of a person or device, or need extra time with toilet transfe rs? Yes. TRANSFERS: TOILET - STEP 2: Does the patient require the assistance of a helper? No. Patient only requires an assistive device blackman ch as a grab bar or special seat, OR s/he takes more than reasonable time to perform toilet transfers , OR there is a safety concern when s/he performs toilet transfers. TRANSFERS: TOILET - SCORE: 6-SILVESTRE TRANSFERS: SHOWER: Activity did not occur on this shift TRANSFERS: SHOWER - SCORE: 0-UNK TRANSFERS: TUB: Activity did not occur on this shift TRANSFERS: TUB - SCORE: 0-UNK LOCOMOTION: WALK: LOCOMOTION: WALK - STEP 1: Does the patient need help from a person or device, or need extra time to walk 150 feet? Yes. LOCOMOTION: WALK - STEP 2: How much assistance does the patient require to walk a minimum of 150 feet? Only incidental help such as contact guarding or steadying LOCOMOTION: WALK - SCORE: 4-MIN LOCOMOTION: WHEELCHAIR: LOCOMOTION: WHEELCHAIR - STEP 1: Does the patient need help to go 150 feet in a wheelchair? Yes. LOCOMOTION: WHEELCHAIR - STEP 2: How much assistance does the patient need from the helper? Only supervision, cuing, or coaxing LOCOMOTION: WHEELCHAIR - SCORE: 5-SUP LOCOMOTION: STAIRS: Activity did not occur on this shift LOCOMOTION: STAIRS - SCORE: 0-UNK COMPREHENSION: COMPREHENSION - SCORE: 0-UNK EXPRESSION EXPRESSION - SCORE: 0-UNK SOCIAL INTERACTION: SOCIAL INTERACTION - SCORE: 0-UNK PROBLEM SOLVING: PROBLEM SOLVING - SCORE: 0-UNK MEMORY: MEMORY - SCORE: 0-UNK SIGNATURE PANEL: The following modified sections: Transfers: Bed, Chair, Wheelchair - Score, Transfers: Toilet - Score , Locomotion: Walk - Score, Locomotion: Wheelchair - Score, Locomotion: Stairs - Score were [electron daphney] signed by Skip Phillips PT on ThuSep 08 2018 16:18:55 T-0500 (Central Daylight Time)
[2018-09-08] MEDS: ONDANSETRON 4 MG (ODT) TAB PO PRN (19:27)
[2018-09-08] MEDS: TAMSULOSIN 0.4 MG SR CAP PO SCH (19:53)
[2018-09-08] MEDS: MELATONIN 3 MG TABLET PO PRN (19:54)
[2018-09-08] MEDS: ATORVASTATIN 10 MG TAB PO SCH (19:54)
--- NOTE | 2018-09-08 19:55 | R.PN ---
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 SUBJECTIVE: Pt denied any Shortness of Breath. Pt denied any depression. Patient states that pain is under control. Hgb 12.0, WBC 6.4, prealbumin 20.7. Functional transfers done with total assistance. He ambulated 150' with contact guard assistance using a right hand hemiwalker. Self-propelled wheelch air 250' with contact guard assistance. Up and down 3 steps with min assistance. left hip x-ray shows no fractures. Therapeutic exercises done with contact guard assistance and multiple rest breaks. He had nausea, abdominal pain and loose stools. His LFTs were normal. VITAL SIGNS Temperature: 97.8 F SBP/DBP: 136/77 Pulse: 64 Resp: 16 MEDICATION ALLERGIES: No Known Drug Allergies (NKDA) ENVIRONMENTAL ALLERGIES: None Known - Substance Allergies None Known - Other Allergies None Known NURSING: - Shower allowing shower - Bladder care per protocol - Skin care per protocol PRECAUTIONS: - Weight Bearing Precaution WBAT left LE ACTIVITIES OOB only with supervision THERAPIES: - Occupational Therapy Evaluate and Treat. Visual Perceptual Training. Cognitive Retraining. - Speech Therapy Cognitive Training. Memory Strategies. Expressive Language Skills. Speech Intelligibility Training. R eceptive Language Skills. Dysphagia Therapy. - Physical Therapy Evaluate and Treat. PHYSICAL EXAM - Gen Alert and awake Lying in bed No apparent distress Oriented to: person, time, and place - Skin No beakdown No abnormalities - Eyes No abnormalities - ENMT No abnormalities - Neck No abnormalities - CVS RRR - Chest No abnormalities - Resp Clear to auscultation - Abd + bowel sounds - GI nondistended Deferred - No abnormalities - Ext Mild left lower extremity edema. - MSK 0/5 strength in the left upper extremity and 2+/5 weakness in left lower extremity. - Neuro 0/5 strength in the left upper extremity and 2+/5 weakness in left lower extremity. - Psych No abnormalities ASSESSMENT: Pt. is a 78 yo Right-handed white male.On 06/25/2018 Pt. presented to [facility] with sudden on set of left-side weakness.On 06/25/2018 he was admitted to [facility] with diagnosis Right MCA. His impairment category is Stroke 01 - Left Body (Right Brain) (01.1).Pre-morbidly, Pt. was independ ent/mod-I in Self-Care, Sphincter Control, Transfers Control, Locomotion, Communication, and Social C ognition; and he had good Sphincter Control.Currently, he has deficits of Self-Care, Transfers Contro l, Locomotion, Communication, Social Cognition, Endurance, Balance, and Safety Awareness.Pt. is now r eferred to [facility] for acute in-patient rehabilitation in order to maximize patient's functional independence in activities of daily living, strength, ROM, and mobility.- Rehab Goal Patient has realistic goal of being discharged at assistance level 6-Maria E to reside at Home with Fam linda/Relatives. MDM/PLAN: - Physical Therapy Gait dysfunction - to improve, our physical therapists will perform initial evaluation of pt's statu s upon admission and devise an individualized program for Gait Training, and Wheel Chair mobility Inability to transfer - to improve, our physical therapists will perform initial evaluation of pt's status upon admission and devise an individualized program for Bed mobility Need for home safety evaluation - to improve, our physical therapists will perform initial evaluatio n of pt's status upon admission and devise an individualized program for Home Evaluation Need in caregiver upon discharge - to improve, our physical therapists will perform initial evaluati on of pt's status upon admission and devise an individualized program for Caregiver Training Edema - to improve, our physical therapists will perform initial evaluation of pt's status upon admi ssion and devise an individualized program for Elevation Training, and Lymphedema Therapy New precaution - to improve, our physical therapists will perform initial evaluation of pt's status upon admission and devise an individualized program for Patient precaution education Poor balance - to improve, our physical therapists will perform initial evaluation of pt's status up on admission and devise an individualized program for Balance Training Poor endurance - to improve, our physical therapists will perform initial evaluation of pt's status upon admission and devise an individualized program for Endurance Training Weakness - to improve, our physical therapists will perform initial evaluation of pt's status upon a dmission and devise an individualized program for Aquatic Therapy, Neuromuscular Reeducation, and Str engthening Achieving independence - to improve, our physical therapists will perform initial evaluation of pt's status upon admission and devise an individualized program for Community Reintegration Activities - Occupational Therapy ADL deficits - to improve, our occupation therapists will perform initial evaluation of pt's status upon admission and devise an individualized program for Bathing, Bed mobility, Community Reintegratio n, Cooking, Dressing, Eating, Fine Motor Skills, Grooming, Homemaking, Kitchen Mobility, Laundry, Pat ient Education, Safety Awareness, Splinting - Positioning, Transfers(Toilet, Tub, Shower), and Wheel Chair Management Cognitive deficits - to improve, our occupation therapists will perform initial evaluation of pt's s tatus upon admission and devise an individualized program for Cognition - orientation Need for care professional - to improve, our occupation therapists will perform initial evaluation of pt's status upon admission and devise an individualized program for Caregiver Training Weakness - to improve, our occupation therapists will perform initial evaluation of pt's status upon admission and devise an individualized program for Aquatic Therapy, Balance, Endurance, UE ROM, and UE strengthening - Diet Type Continue Regular - Diet - Liquid Texture Continue Thin - Tube Feed Continue N/A - Bladder care per protocol - Weight Bearing Precaution WBAT left LE - Skin care per protocol - Diet - Solid Texture Continue Regular Continue Mechanical Soft (Ground) - Shower allowing shower for Dementia, TBI, Stroke, or others FUNCTIONAL STATUS: UPDATED AT WEEKLY TEAM CONFERENCE - Bladder Same accident frequency: 7-Ind - No accidents in the past 7 days - Bowel Same accident frequency: 7-Ind - No accidents in the past 7 days - Walking Same score based on distance walked: 0(N/A) - Wheelchair Same score based on distance traveled: 0(N/A) FUNCTIONAL STATUS: - Self-Care A. Eating sup B. Grooming Anil C. Bathing maxA D. Dressing - Upper Anil E. Dressing - Lower maxA F. Toileting maxA - Sphincter Control G: Bladder control Ind H: Bowel control Ind - Transfers Control I. Bed/Chair/Wheelchair maxA J. Toilet maxA K. Tub/Shower ADNO - Locomotion L. Walk/Wheelchair (C) Dep L. Walk/Wheelchair (W) Dep M. Stairs ADNO - Communication N. Comprehension (B) Anil O. Expression (B) Anil - Social Cognition P. Social Interaction Anil Q. Problem Solving Anil R. Memory Anil - Endurance Fair - Balance Poor - Safety Awareness Fair CURRENT [facility]. DEFICITS: Self-Care, Transfers Control, Locomotion, Communication, Social Cognition, Endurance, Balance, and Sa fety Awareness SIGNATURE PANEL: (CDT)
[2018-09-09 06:31] LABS: Absolute Lymphocytes (CBC) 1.6 K/uL (0.7-4.9); Basophils % 0.4 % (0-1.3); Hematocrit 36.1 % (39.6-49.0); Lymphocytes % 31.5 % (15.3-44.8); MPV 8.7 fL (7.6-11.3); RBC Red Blood Cell Count 3.87 M/uL (4.33-5.43)
[2018-09-09 06:55] LABS: Albumin 3.2 g/dL (3.4-5.0); Magnesium 2.2 mg/dL (1.8-2.4); Potassium 3.9 mmol/L (3.5-5.1); Prealbumin 18.3 mg/dL (20-40)
[2018-09-09] MEDS: ONDANSETRON 4 MG (ODT) TAB PO PRN (07:26)
[2018-09-09] MEDS: LIDOCAINE 5% PATCH TOP SCH (07:27)
[2018-09-09] MEDS: CITALOPRAM 10 MG TABLET PO SCH (08:37)
[2018-09-09] MEDS: ACETAMINOPHEN 500 MG TAB PO PRN ×3 (08:37→22:30)
[2018-09-09] MEDS: GABAPENTIN 300 MG CAP PO SCH ×3 (08:38→20:37)
[2018-09-09] MEDS: CYANOCOBALAMIN 1,000 MCG TAB PO SCH (08:38)
[2018-09-09] MEDS: MAGNESIUM OXIDE 400 MG TAB PO SCH ×2 (08:38→20:37)
[2018-09-09] MEDS: FLECAINIDE 100 MG TAB PO SCH ×2 (08:39→20:36)
[2018-09-09] MEDS: APIXABAN 2.5 MG TABLET PO SCH ×2 (08:39→20:37)
[2018-09-09] MEDS: LISINOPRIL 5 MG TAB PO SCH (08:39)
[2018-09-09] MEDS: FUROSEMIDE 20 MG TABLET PO SCH (08:40)
[2018-09-09] MEDS: VALSARTAN 80 MG TAB PO SCH (11:56)
--- NOTE | 2018-09-09 13:14 | FAST ---
SHIFT START DATE/TIME: 09/09/2018 07:00 (CDT) SHIFT END DATE/TIME: 09/09/2018 19:00 (CDT) NAME PRICE ROGERS DATE OF : 1940 DATE OF ADMISSION: 07/05/2018 18:33 (CDT) PHONE: AGE: 78 N# [id number] GENDER: Male ENCOUNTER PHYSICIAN: Dr. Abdirahman Zepeda M.D. 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 EATING: EATING - STEP 1: Does the patient require the assistance of a person or device, or need extra time when eating? Yes. EATING - STEP 2: Does the patient require the assistance of a helper? No, patient only requires an assistive device, O R s/he takes more than reasonable time to eat, OR there is a safety concern, OR s/he requires modifie d food consistency EATING - SCORE: 6-SILVESTRE GROOMING: Comb/brush hair Oral care Wash, rinse, and dry face Wash, rinse, and dry hands GROOMING - STEP 1: Does the patient require the assistance of a person or device, or need extra time when grooming? Yes. GROOMING - STEP 2: Does the patient require the assistance of a helper? Yes. GROOMING - STEP 3: How much assistance does the patient require from the helper? Cuing, coaxing, instructions, or encour agement for completion of grooming GROOMING - SCORE: 5-SUP BATHING: Activity did not occur on this shift BATHING - SCORE: 0-UNK DRESSING - UPPER BODY: Activity did not occur on this shift ARTICLES SCORE Total number of steps: 0 DRESSING - UPPER BODY - SCORE: 0-UNK DRESSING - LOWER BODY: Activity did not occur on this shift ARTICLES SCORE Total number of steps: 0 DRESSING - LOWER BODY - SCORE: 0-UNK TOILETING: TOILETING - STEP 1: Does the patient require the assistance of a person or device, or need extra time with toileting? Yes . TOILETING - STEP 2: Does the patient require the assistance of a helper? Yes. TOILETING - STEP 3: How much assistance does the patient require from the helper? Hands-on assistance from the helper TOILETING - STEP 4: Of the 3 tasks: 1) Adjusting clothing prior to use, 2) Cleansing of perineal area, 3) Adjusting clot merissa after use; How many tasks does the patient perform WITHOUT assistance of the helper? Two tasks TOILETING - SCORE: 3-MOD BLADDER MANAGEMENT: BLADDER MANAGEMENT - STEP 1: Does the patient control the bladder completely and intentionally without equipment or devices or med ications, and is always continent? No. BLADDER MANAGEMENT - STEP 2: Does the patient require the assistance of a helper? No, patient requires and independently uses an a ssistive device, such as a urinal, bedpan, bedside commode, catheter, absorbent pad, or collecting de vice BLADDER MANAGEMENT - SCORE: 6-SILVESTRE BOWEL MANAGEMENT: Activity did not occur on this shift BOWEL MANAGEMENT - SCORE: 7-IND TRANSFERS: BED, CHAIR, WHEELCHAIR: TRANSFERS: BED, CHAIR, WHEELCHAIR - STEP 1: Does the patient require assistance of a person or device, or need extra time with bed, chair, or whe elchair transfers? Yes. TRANSFERS: BED, CHAIR, WHEELCHAIR - STEP 2: Does the patient require the assistance of a helper? Yes. TRANSFERS: BED, CHAIR, WHEELCHAIR - STEP 3: How much assistance does the patient require from the helper? Lifting of the patient TRANSFERS: BED, CHAIR, WHEELCHAIR - STEP 4: Does the helper lift the patient ONLY up? ONLY down? Up AND Down? ONLY up. TRANSFERS: BED, CHAIR, WHEELCHAIR - SCORE: 3-MOD TRANSFERS: TOILET: TRANSFERS: TOILET - STEP 1: Does the patient require the assistance of a person or device, or need extra time with toilet transfe rs? Yes. TRANSFERS: TOILET - STEP 2: Does the patient require the assistance of a helper? Yes. TRANSFERS: TOILET - STEP 3: How much assistance does the patient require from the helper? Patient performs half or more of the tr ansferring tasks TRANSFERS: TOILET - STEP 4: Does the patient need only incidental help such as contact guard or steadying during toilet transfer? No. Patient needs more than incidental help TRANSFERS: TOILET - SCORE: 3-MOD TRANSFERS: SHOWER: Activity did not occur on this shift TRANSFERS: SHOWER - SCORE: 0-UNK TRANSFERS: TUB: Activity did not occur on this shift TRANSFERS: TUB - SCORE: 0-UNK LOCOMOTION: WALK: Activity did not occur on this shift LOCOMOTION: WALK - SCORE: 0-UNK LOCOMOTION: WHEELCHAIR: Activity did not occur on this shift LOCOMOTION: WHEELCHAIR - SCORE: 0-UNK COMPREHENSION: COMPREHENSION: TYPE: Both COMPREHENSION - STEP 1: Does the patient require help from a person or device, or need extra time to understand complex and a bstract ideas (such as current events, finances, discharge planning, medical issues, relationships, e tc)? No. COMPREHENSION - STEP 2: Does the patient need extra time, require an assistive device (such as glasses for visual comprehensi on or a hearing aid for auditory comprehension) or does s/he have mild difficulty understanding compl ex and abstract information? Yes. COMPREHENSION - SCORE: 6-SILVESTRE EXPRESSION EXPRESSION: TYPE: Both EXPRESSION - STEP 1: Does the patient require help from a person or device, or need extra time expressing complex and abst ract ideas (such as current events, finances, discharge planning, medical issues, relationships, etc) ? No. EXPRESSION - STEP 2: Does the patient need extra time, require an assistive device (such as augmentive communication syste m or a communication board), OR does s/he have mild difficulty expressing complex and abstract ideas (including mild dysarthria or mild word-find problems)? Yes. EXPRESSION - SCORE: 6-SILVESTRE SOCIAL INTERACTION: SOCIAL INTERACTION - STEP 1: Does the patient require a helper to interact with others in social and therapeutic situations? No. SOCIAL INTERACTION - STEP 2: Does the patient need extra time in social situations, OR does s/he interact with staff, other patien ts, and family members ONLY in structured environments, OR does s/he require medication for social in teraction? Yes, patient needs extra time SOCIAL INTERACTION - SCORE: 6-SILVESTRE PROBLEM SOLVING: PROBLEM SOLVING - STEP 1: Does the patient need help from a person or device, or need extra time to solve complex problems such as managing a checking account or confronting interpersonal problems? No. PROBLEM SOLVING - STEP 2: Does the patient require extra time to make decisions or solve problems, OR does s/he have slight dif ficulty reading, initiating, or self-correcting in unfamiliar situations? Yes, patient needs extra ti me. PROBLEM SOLVING - SCORE: 6-SILVESTRE MEMORY: MEMORY - STEP 1: Does the patient need help from a person or device, or need extra time to remember frequently encount ered people, daily routines, and executing requests? No. MEMORY - STEP 2: Does the patient have slight difficulty recognizing frequently encountered people, daily routines, or executing requests without the need for repetition or using self-initiated or environmental cues to remember? Yes. MEMORY - SCORE: 6-SILVESTRE SIGNATURE PANEL: The following modified sections: Eating - Score, Grooming - Score, Bathing - Score, Dressing - Upper Body - Score, Dressing - Lower Body - Score, Toileting - Score, Bladder Management - Score, Bowel Man agement - Score, Transfers: Bed, Chair, Wheelchair - Score, Transfers: Toilet - Score, Transfers: Melissa wer - Score, Transfers: Tub - Score, Locomotion: Walk - Score, Locomotion: Wheelchair - Score, Compre hension - Score, Expression - Score, Social Interaction - Score, Problem Solving - Score, Memory - Sc ore were [electronically] signed by Wilmar Arboleda on ThuSep 09 2018 13:13:40 GMT-0500 (Central Daylight Time)
--- NOTE | 2018-09-09 18:34 | FAST ---
ENCOUNTER DATE AND TIME: 09/09/2018 08:00 (CDT) NAME PRICE ROGERS DATE OF : 1940 DATE OF ADMISSION: 07/05/2018 18:33 (CDT) PHONE: AGE: 78 SSN# [id number] GENDER: Male ENCOUNTER PHYSICIAN: Dr. Abdirahman Zepeda M.D. 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 EATING: Activity did not occur on this shift EATING - SCORE: 0-UNK GROOMING: Activity did not occur on this shift GROOMING - SCORE: 0-UNK BATHING: Activity did not occur on this shift BATHING - SCORE: 0-UNK DRESSING - UPPER BODY: Activity did not occur on this shift Patient is not dressing in public clothing ARTICLES SCORE Total number of steps: 0 DRESSING - UPPER BODY - SCORE: 0-UNK DRESSING - LOWER BODY: Activity did not occur on this shift Patient is not dressing in public clothing ARTICLES SCORE Total number of steps: 0 DRESSING - LOWER BODY - SCORE: 0-UNK TOILETING: Activity did not occur on this shift TOILETING - SCORE: 0-UNK BLADDER MANAGEMENT: Activity did not occur on this shift BLADDER MANAGEMENT - SCORE: 7-IND BOWEL MANAGEMENT: Activity did not occur on this shift BOWEL MANAGEMENT - SCORE: 7-IND TRANSFERS: BED, CHAIR, WHEELCHAIR: TRANSFERS: BED, CHAIR, WHEELCHAIR - STEP 1: Does the patient require assistance of a person or device, or need extra time with bed, chair, or whe elchair transfers? Yes. TRANSFERS: BED, CHAIR, WHEELCHAIR - STEP 2: Does the patient require the assistance of a helper? Yes. TRANSFERS: BED, CHAIR, WHEELCHAIR - STEP 3: How much assistance does the patient require from the helper? Only supervision TRANSFERS: BED, CHAIR, WHEELCHAIR - SCORE: 5-SUP TRANSFERS: TOILET: Activity did not occur on this shift TRANSFERS: TOILET - SCORE: 0-UNK TRANSFERS: SHOWER: Activity did not occur on this shift TRANSFERS: SHOWER - SCORE: 0-UNK TRANSFERS: TUB: Activity did not occur on this shift TRANSFERS: TUB - SCORE: 0-UNK LOCOMOTION: WALK: Patient walks less than 50 feet LOCOMOTION: WALK - SCORE: 1-DEP LOCOMOTION: WHEELCHAIR: Activity did not occur on this shift LOCOMOTION: WHEELCHAIR - SCORE: 0-UNK LOCOMOTION: STAIRS: LOCOMOTION: STAIRS - STEP 1: Does the patient need help to go up and down 12 to 14 stairs? Yes. LOCOMOTION: STAIRS - STEP 2: How much assistance does the patient need from the helper to go a minimum of 12 to 14 stairs? The pat ient goes less than 12 stairs, but at least 4 stairs LOCOMOTION: STAIRS - SCORE: 2-MAX COMPREHENSION: COMPREHENSION - SCORE: 0-UNK EXPRESSION EXPRESSION - SCORE: 0-UNK SOCIAL INTERACTION: SOCIAL INTERACTION - SCORE: 0-UNK PROBLEM SOLVING: PROBLEM SOLVING - SCORE: 0-UNK MEMORY: MEMORY - SCORE: 0-UNK SIGNATURE PANEL: The following modified sections: Transfers: Bed, Chair, Wheelchair - Score, Transfers: Toilet - Score , Locomotion: Walk - Score, Locomotion: Wheelchair - Score, Locomotion: Stairs - Score were [electron daphney] signed by Skip Phillips PT on ThuSep 09 2018 18:34:04 T-0500 (Central Daylight Time)
[2018-09-09] MEDS: ATORVASTATIN 10 MG TAB PO SCH (20:37)
[2018-09-09] MEDS: TAMSULOSIN 0.4 MG SR CAP PO SCH (20:37)
[2018-09-09] MEDS: MELATONIN 3 MG TABLET PO PRN (22:30)
[2018-09-10] MEDS: ONDANSETRON 4 MG (ODT) TAB PO PRN (06:11)
[2018-09-10] MEDS: MAGNESIUM OXIDE 400 MG TAB PO SCH ×2 (08:00→20:32)
[2018-09-10] MEDS: LISINOPRIL 5 MG TAB PO SCH (08:27)
[2018-09-10] MEDS: GABAPENTIN 300 MG CAP PO SCH ×3 (08:27→20:31)
[2018-09-10] MEDS: FLECAINIDE 100 MG TAB PO SCH ×2 (08:27→20:31)
[2018-09-10] MEDS: CITALOPRAM 10 MG TABLET PO SCH (08:28)
[2018-09-10] MEDS: APIXABAN 2.5 MG TABLET PO SCH ×2 (08:29→20:32)
[2018-09-10] MEDS: FUROSEMIDE 20 MG TABLET PO SCH (08:29)
[2018-09-10] MEDS: CYANOCOBALAMIN 1,000 MCG TAB PO SCH (08:29)
[2018-09-10] MEDS: ACETAMINOPHEN 500 MG TAB PO PRN (08:30)
[2018-09-10] MEDS: LIDOCAINE 5% PATCH TOP SCH (08:57)
--- NOTE | 2018-09-10 09:34 | P.RH.PN ---
Estimated Length of Stay: 69 Expected Discharge Date: 09/11/18 Discharge Disposition Plan: Home Family Support: Yes [facility] Goal: Mobility, Transfers, Self Care Vital Signs: Last Vital Signs Temp 97.4 F 09/10/18 07:00 Pulse 83 09/10/18 08:29 Resp 16 09/10/18 07:00 BP 122/63 09/10/18 08:29 Pulse Ox 96 09/10/18 07:00 Laboratory: Laboratory Last Values WBC 5.0 K/uL (4.3-10.9) D 09/09/18 06:09 RBC 3.87 M/uL (4.33-5.43) L 09/09/18 06:09 Hgb 12.3 g/dL (13.6-17.9) L 09/09/18 06:09 Hct 36.1 % (39.6-49.0) L 09/09/18 06:09 MCV 93.3 fL (80-100) 09/09/18 06:09 MCH 31.7 pg (27.0-35.0) 09/09/18 06:09 MCHC 34.0 g/dL (32.0-36.0) 09/09/18 06:09 RDW 13.9 % (12.1-15.2) 09/09/18 06:09 Plt Count 202 K/uL (152-406) 09/09/18 06:09 MPV 8.7 fL (7.6-11.3) 09/09/18 06:09 Neutrophils % 55.6 % (41.7-73.7) 09/09/18 06:09 Lymphocytes % 31.5 % (15.3-44.8) 09/09/18 06:09 Monocytes % 8.6 % (3.3-12.3) 09/09/18 06:09 Eosinophils % 3.9 % (0-4.4) 09/09/18 06:09 Basophils % 0.4 % (0-1.3) 09/09/18 06:09 Absolute Neutrophils 2.8 K/uL (1.8-8.0) 09/09/18 06:09 Absolute Lymphocytes 1.6 K/uL (0.7-4.9) 09/09/18 06:09 Absolute Monocytes 0.4 K/uL (0.1-1.3) 09/09/18 06:09 Absolute Eosinophils 0.2 K/uL (0-0.5) 09/09/18 06:09 Absolute Basophils 0.0 K/uL (0-0.5) 09/09/18 06:09 Sodium 140 mmol/L (136-145) 09/09/18 06:09 Potassium 3.9 mmol/L (3.5-5.1) 09/09/18 06:09 Chloride 105 mmol/L (98-107) 09/09/18 06:09 Carbon Dioxide 31 mmol/L (21-32) 09/09/18 06:09 BUN 16 mg/dL (7-18) 09/09/18 06:09 Creatinine 0.94 mg/dL (0.55-1.3) 09/09/18 06:09 Estimated GFR 78 mL/min (=/>90) L 09/09/18 06:09 Glucose 93 mg/dL (74-106) 09/09/18 06:09 Calcium 8.5 mg/dL (8.5-10.1) 09/09/18 06:09 Magnesium 2.2 mg/dL (1.8-2.4) 09/09/18 06:09 Total Bilirubin 0.4 mg/dL (0.2-1.0) 08/31/18 14:06 Direct Bilirubin 0.1 mg/dL (0-0.2) 08/31/18 14:06 AST 13 U/L (15-37) L 08/31/18 14:06 ALT 25 U/L (12-78) 08/31/18 14:06 Alkaline Phosphatase 96 U/L (45-117) 08/31/18 14:06 Serum Total Protein 7.3 g/dL (6.4-8.2) 08/31/18 14:06 Albumin 3.2 g/dL (3.4-5.0) L 09/09/18 06:09 Globulin 3.8 g/dL (2.3-3.5) H 08/31/18 14:06 Albumin/Globulin Ratio 0.9 (1.1-1.8) L 08/31/18 14:06 Prealbumin 18.3 mg/dL (20-40) L 09/09/18 06:09 Urine Color Yellow 07/11/18 10:59 Urine Appearance Clear 07/11/18 10:59 Urine pH 6.0 (5.0-7.0) 07/11/18 10:59 Ur Specific [place] 1.020 (1.005-1.030) 07/11/18 10:59 Urine Ketones Negative (NEG) 07/11/18 10:59 Urine Blood Negative (NEG) 07/11/18 10:59 Urine Nitrite Negative (NEG) 07/11/18 10:59 Urine Bilirubin Negative (NEG) 07/11/18 10:59 Urine Urobilinogen 1.0 mg/dL (0.2-1.0) 07/11/18 10:59 Ur Leukocyte Esterase Trace (NEG) H 07/11/18 10:59 Urine RBC <5 /HPF (NONE SEEN) 07/11/18 10:59 Urine WBC <5 /HPF (<5) 07/11/18 10:59 Ur Squamous Epith Cells 5-10 /HPF (NONE SEEN) H 07/11/18 10:59 Urine Bacteria <20 /HPF (NONE SEEN) 07/11/18 10:59 Urine Mucus Slight /HPF (NONE SEEN) 07/07/18 00:10 Urine Culture Reflexed Not needed 07/11/18 10:59 Urine Glucose Negative (NEG) 07/11/18 10:59 Urine Total Protein Negative (NEG) 07/11/18 10:59 Weight: 209 lb 9.6 oz Wound Present: No Closed Surgical Incision Present: No Negative Pressure Wound Therapy Present: No Physician Update: Labs reviewed and are stable. He did home reintegration yesterday and did very well. He will be discharged home with [facility] in the AM. Will the [facility] in one month and with his PCP as well. Medical Issues: DVT Prophylaxis - Eliquis 2.5mg BID Pain Issues: Gabapentin 300mg TID. Lidocaine pacth 5% Daily Comment: Right Groin incision healed, S/P thrombectomy Functional Improvement: pt has demonstrated great progress throughout the week. pt actually was brought to his home for practice with home mobility as his house was recently renovated to improve accessibility. pt's family was present for education and training on assisting pt. pt has many stairs and steps within his home. pt's family demonstrated ability to safely gaurd pt and assist him throughout the home. pt does require a lot of direct cuing for safety. pt will require a caregiver at home who is experienced with performance of transfers and guarding pt's with involved CVAs. Functional Improvement Occupational Therapy: Patient continues to make progress during BADL tasks and functional trfs, and would benefit from further OT at Home Health level to address improved independence and safety with all ADL tasks , L UE strength and coordination. Patient scheduled for d/c home with caregiver 01/09 on 09/11/18, shall no medical issues arise. Speech Therapy Update: Pt is at MOD I to I for Auditory Comprehension, Social Interaction and Memory. Pt is at SUPV to MOD I for Verbal Expression and Problem Solving. Pt will d/c home this weekend with 24 hour caregiver support to ensure safety and to provide assistance with ADL's. Summary: Patient's care plan and care home goals have been reviewed and revised as necessary. Please see the Rehabilitation Signature page for all necessary signatures.
[2018-09-10] MEDS: VALSARTAN 80 MG TAB PO SCH (12:00)
--- NOTE | 2018-09-10 13:49 | FAST ---
SHIFT START DATE/TIME: 09/10/2018 07:00 (CDT) SHIFT END DATE/TIME: 09/10/2018 19:00 (CDT) NAME PRICE ROGERS DATE OF : 1940 DATE OF ADMISSION: 07/05/2018 18:33 (CDT) PHONE: AGE: 78 N# [id number] GENDER: Male ENCOUNTER PHYSICIAN: Dr. Abdirahman Zepeda M.D. 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 EATING: EATING - STEP 1: Does the patient require the assistance of a person or device, or need extra time when eating? Yes. EATING - STEP 2: Does the patient require the assistance of a helper? Yes. EATING - STEP 3: Does the patient perform half or more of the eating tasks? Yes. EATING - STEP 4: Does the patient need only supervision, cuing, coaxing OR help to apply an orthosis OR help to cut fo od, open containers, pour liquids, or butter bread? Yes. EATING - SCORE: 5-SUP GROOMING: GROOMING - STEP 1: Does the patient require the assistance of a person or device, or need extra time when grooming? Yes. GROOMING - STEP 2: Does the patient require the assistance of a helper? No. The patient only requires an assistive devic e, OR takes more than reasonable time to groom, OR there is a concern for safety as the patient groom s GROOMING - SCORE: 6-SILVESTRE BATHING: Activity did not occur on this shift BATHING - SCORE: 0-UNK DRESSING - UPPER BODY: Activity did not occur on this shift ARTICLES SCORE Total number of steps: 0 DRESSING - UPPER BODY - SCORE: 0-UNK DRESSING - LOWER BODY: Elastic waist pants (three steps) Underwear (three steps) ARTICLES SCORE Total number of steps: 6 DRESSING - LOWER BODY - STEP 1: Does the patient require help from a person or device, or need extra time when dressing below the [address] st? Yes. DRESSING - LOWER BODY - STEP 2: Does the patient require the assistance of a helper? Yes. DRESSING - LOWER BODY - STEP 3: Does the helper touch the patient while dressing? Yes. DRESSING - LOWER BODY - STEP 4: How many of the total steps does the patient complete on his/her own? 3 DRESSING - LOWER BODY - SCORE: 3-MOD TOILETING: TOILETING - STEP 1: Does the patient require the assistance of a person or device, or need extra time with toileting? Yes . TOILETING - STEP 2: Does the patient require the assistance of a helper? Yes. TOILETING - STEP 3: How much assistance does the patient require from the helper? Hands-on assistance from the helper TOILETING - STEP 4: Of the 3 tasks: 1) Adjusting clothing prior to use, 2) Cleansing of perineal area, 3) Adjusting clot merissa after use; How many tasks does the patient perform WITHOUT assistance of the helper? Two tasks TOILETING - SCORE: 3-MOD BLADDER MANAGEMENT: BLADDER MANAGEMENT - STEP 1: Does the patient control the bladder completely and intentionally without equipment or devices or med ications, and is always continent? Yes. BLADDER MANAGEMENT - SCORE: 7-IND BLADDER MANAGEMENT - FREQUENCY OF ACCIDENTS: BLADDER MANAGEMENT(FA) - STEP 1: How many accidents has the patient had during the current shift? 0 BOWEL MANAGEMENT: BOWEL MANAGEMENT - STEP 1: Does the patient control bowels completely and intentionally without equipment devices or medications AND is always continent? Yes. BOWEL MANAGEMENT - SCORE: 7-IND BOWEL MANAGEMENT - FREQUENCY OF ACCIDENTS: BOWEL MANAGEMENT(FA) - STEP 1: How many accidents has the patient had during the current shift? 0 TRANSFERS: BED, CHAIR, WHEELCHAIR: TRANSFERS: BED, CHAIR, WHEELCHAIR - STEP 1: Does the patient require assistance of a person or device, or need extra time with bed, chair, or whe elchair transfers? Yes. TRANSFERS: BED, CHAIR, WHEELCHAIR - STEP 2: Does the patient require the assistance of a helper? Yes. TRANSFERS: BED, CHAIR, WHEELCHAIR - STEP 3: How much assistance does the patient require from the helper? Lifting of the patient TRANSFERS: BED, CHAIR, WHEELCHAIR - STEP 4: Does the helper lift the patient ONLY up? ONLY down? Up AND Down? ONLY up. TRANSFERS: BED, CHAIR, WHEELCHAIR - SCORE: 3-MOD TRANSFERS: TOILET: TRANSFERS: TOILET - STEP 1: Does the patient require the assistance of a person or device, or need extra time with toilet transfe rs? Yes. TRANSFERS: TOILET - STEP 2: Does the patient require the assistance of a helper? Yes. TRANSFERS: TOILET - STEP 3: How much assistance does the patient require from the helper? Patient performs half or more of the tr ansferring tasks TRANSFERS: TOILET - STEP 4: Does the patient need only incidental help such as contact guard or steadying during toilet transfer? No. Patient needs more than incidental help TRANSFERS: TOILET - SCORE: 3-MOD TRANSFERS: SHOWER: Activity did not occur on this shift TRANSFERS: SHOWER - SCORE: 0-UNK TRANSFERS: TUB: Activity did not occur on this shift TRANSFERS: TUB - SCORE: 0-UNK LOCOMOTION: WALK: Activity did not occur on this shift LOCOMOTION: WALK - SCORE: 0-UNK LOCOMOTION: WHEELCHAIR: Activity did not occur on this shift LOCOMOTION: WHEELCHAIR - SCORE: 0-UNK COMPREHENSION: COMPREHENSION - SCORE: 0-UNK EXPRESSION EXPRESSION - SCORE: 0-UNK SOCIAL INTERACTION: SOCIAL INTERACTION - SCORE: 0-UNK PROBLEM SOLVING: PROBLEM SOLVING - SCORE: 0-UNK MEMORY: MEMORY - SCORE: 0-UNK SIGNATURE PANEL: The following modified sections: Eating - Score, Grooming - Score, Bathing - Score, Dressing - Upper Body - Score, Dressing - Lower Body - Score, Toileting - Score, Bladder Management - Score, Bowel Man agement - Score, Transfers: Bed, Chair, Wheelchair - Score, Transfers: Toilet - Score, Transfers: Melissa wer - Score, Transfers: Tub - Score, Locomotion: Walk - Score, Locomotion: Wheelchair - Score, Compre hension - Score, Expression - Score, Social Interaction - Score, Problem Solving - Score, Memory - Sc ore were [electronically] signed by Pily Conrad CNA on ThuSep 10 2018 13:48:32 T-0500 (Centra l Daylight Time)
--- NOTE | 2018-09-10 15:48 | FAST ---
ENCOUNTER DATE AND TIME: 09/10/2018 08:00 (CDT) NAME PRICE ROGERS DATE OF : 1940 DATE OF ADMISSION: 07/05/2018 18:33 (CDT) PHONE: AGE: 78 SSN# [id number] GENDER: Male ENCOUNTER PHYSICIAN: Dr. Abdirahman Zepeda M.D. 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 EATING: Activity did not occur on this shift EATING - SCORE: 0-UNK GROOMING: Activity did not occur on this shift GROOMING - SCORE: 0-UNK BATHING: Activity did not occur on this shift BATHING - SCORE: 0-UNK DRESSING - UPPER BODY: Activity did not occur on this shift Patient is not dressing in public clothing ARTICLES SCORE Total number of steps: 0 DRESSING - UPPER BODY - SCORE: 0-UNK DRESSING - LOWER BODY: Activity did not occur on this shift Patient is not dressing in public clothing ARTICLES SCORE Total number of steps: 0 DRESSING - LOWER BODY - SCORE: 0-UNK TOILETING: Activity did not occur on this shift TOILETING - SCORE: 0-UNK BLADDER MANAGEMENT: Activity did not occur on this shift BLADDER MANAGEMENT - SCORE: 7-IND BOWEL MANAGEMENT: Activity did not occur on this shift BOWEL MANAGEMENT - SCORE: 7-IND TRANSFERS: BED, CHAIR, WHEELCHAIR: TRANSFERS: BED, CHAIR, WHEELCHAIR - STEP 1: Does the patient require assistance of a person or device, or need extra time with bed, chair, or whe elchair transfers? Yes. TRANSFERS: BED, CHAIR, WHEELCHAIR - STEP 2: Does the patient require the assistance of a helper? Yes. TRANSFERS: BED, CHAIR, WHEELCHAIR - STEP 3: How much assistance does the patient require from the helper? Steadying/guiding assistance TRANSFERS: BED, CHAIR, WHEELCHAIR - SCORE: 4-MIN TRANSFERS: TOILET: TRANSFERS: TOILET - STEP 1: Does the patient require the assistance of a person or device, or need extra time with toilet transfe rs? Yes. TRANSFERS: TOILET - STEP 2: Does the patient require the assistance of a helper? No. Patient only requires an assistive device blackman ch as a grab bar or special seat, OR s/he takes more than reasonable time to perform toilet transfers , OR there is a safety concern when s/he performs toilet transfers. TRANSFERS: TOILET - SCORE: 6-SILVESTRE TRANSFERS: SHOWER: Activity did not occur on this shift TRANSFERS: SHOWER - SCORE: 0-UNK TRANSFERS: TUB: Activity did not occur on this shift TRANSFERS: TUB - SCORE: 0-UNK LOCOMOTION: WALK: LOCOMOTION: WALK - STEP 1: Does the patient need help from a person or device, or need extra time to walk 150 feet? Yes. LOCOMOTION: WALK - STEP 2: How much assistance does the patient require to walk a minimum of 150 feet? Only incidental help such as contact guarding or steadying LOCOMOTION: WALK - SCORE: 4-MIN LOCOMOTION: WHEELCHAIR: LOCOMOTION: WHEELCHAIR - STEP 1: Does the patient need help to go 150 feet in a wheelchair? No. LOCOMOTION: WHEELCHAIR - SCORE: 6-SILVESTRE LOCOMOTION: STAIRS: LOCOMOTION: STAIRS - STEP 1: Does the patient need help to go up and down 12 to 14 stairs? Yes. LOCOMOTION: STAIRS - STEP 2: How much assistance does the patient need from the helper to go a minimum of 12 to 14 stairs? The pat ient goes less than 12 stairs, but at least 4 stairs LOCOMOTION: STAIRS - SCORE: 2-MAX COMPREHENSION: COMPREHENSION - SCORE: 0-UNK EXPRESSION EXPRESSION - SCORE: 0-UNK SOCIAL INTERACTION: SOCIAL INTERACTION - SCORE: 0-UNK PROBLEM SOLVING: PROBLEM SOLVING - SCORE: 0-UNK MEMORY: MEMORY - SCORE: 0-UNK SIGNATURE PANEL: The following modified sections: Transfers: Bed, Chair, Wheelchair - Score, Transfers: Toilet - Score , Locomotion: Walk - Score, Locomotion: Wheelchair - Score, Locomotion: Stairs - Score were [electron daphney] signed by Skip Phillips PT on ThuSep 10 2018 15:47:10 GMT-0500 (Central Daylight Time)
[2018-09-10] MEDS: TAMSULOSIN 0.4 MG SR CAP PO SCH (20:31)
[2018-09-10] MEDS: ATORVASTATIN 10 MG TAB PO SCH (20:32)
[2018-09-10] MEDS: MELATONIN 3 MG TABLET PO PRN (21:40)
[2018-09-11 04:14] VITALS: BMI 30.8
[2018-09-11] MEDS: ONDANSETRON 4 MG (ODT) TAB PO PRN (06:22)
[2018-09-11 06:47] VITALS: TEMP 96.8
[2018-09-11] MEDS: LIDOCAINE 5% PATCH TOP SCH (07:29)
[2018-09-11] MEDS: MAGNESIUM OXIDE 400 MG TAB PO SCH (08:00)
[2018-09-11] MEDS: FLECAINIDE 100 MG TAB PO SCH (08:28)
[2018-09-11] MEDS: CITALOPRAM 10 MG TABLET PO SCH (08:28)
[2018-09-11] MEDS: GABAPENTIN 300 MG CAP PO SCH (08:29)
[2018-09-11] MEDS: LISINOPRIL 5 MG TAB PO SCH (08:29)
[2018-09-11] MEDS: APIXABAN 2.5 MG TABLET PO SCH (08:29)
[2018-09-11] MEDS: CYANOCOBALAMIN 1,000 MCG TAB PO SCH (08:29)
[2018-09-11] MEDS: ACETAMINOPHEN 500 MG TAB PO PRN (08:30)
[2018-09-11] MEDS: FUROSEMIDE 20 MG TABLET PO SCH (08:30)
[2018-09-11] MEDS: VALSARTAN 80 MG TAB PO SCH (12:46)
[2018-09-11 12:47] VITALS: BP 123/66
== END 2018-09-11 12:50 | disposition home health service (06) | DRG 57 ==
LOC: 5TH 18:33
PROVIDERS: ADMIT Psychiatry & Neurology Neurology with Special Qualifications in Child Neurology; ATTEND Psychiatry & Neurology Neurology with Special Qualifications in Child Neurology
DX: I69.354 Hemiplegia and hemiparesis following cerebral infarction affecting left non-dominant side (principal); I69.391 Dysphagia following cerebral infarction; R13.10 Dysphagia, unspecified; I48.91 Unspecified atrial fibrillation; E78.5 Hyperlipidemia, unspecified; I10 Essential (primary) hypertension; I70.90 Unspecified atherosclerosis; B35.1 Tinea unguium
CPT/HCPCS: 36415; 70450; 74230; 80048; 80076; 81001; 81003; 81015; 82040; 83735; 84134; 85025; 87077; 87086; 87088; 87186; 92507; 92508; 92523; 92526; 92610; 92611; 94760; 97032; 97110; 97112; 97116; 97127; 97150; 97163; 97167; 97530; 97542

== ENCOUNTER 2019-02-09 16:37 | Emergency (ER) | payer OTHER ==
--- OUTSIDE RECORDS SUMMARY | 2019-02-09 16:39 | XMS REPORT ---
[...] End Status Dosage System Date Date Crestor [facility] 10960052967 10 MG Orally September 08, Active 1 tablet Once a day 2017 Xanax [facility] 57628280970 0.5 MG Orally September 08, Active 1 tablet Twice a day 2017 Metformin HCl ND 67380947886 500 MG Orally September 08, Active 1 tablet Once a day 2018 with a meal Benicar [facility] 52045560660 20 MG Orally September 08, Active 1 tablet Once a day 2017 Flecainide ND 46274256254 50 MG Orally September 08, Active as directed Acetate 2018 Xarelto ND 13054060038 10 MG Orally September 08, Active 1 tablet Once a day 2018 with food Results No Known Results Summary Purpose eClinicalWorks Submission
--- OUTSIDE RECORDS SUMMARY | 2019-02-09 16:39 | XMS REPORT ---
[...] End Status Dosage System Date Date Flecainide [facility] 26438384681 50 MG Orally September 08, Active as directed Acetate [address] [facility] 85578389876 20 MG Orally September 08, Active 1 tablet Once a day [address] [facility] 76914225196 0.5 MG Orally September 08, Active 1 tablet Twice a day [address] [facility] 17810382691 10 MG Orally September 08, Active 1 tablet Once a day 2018 with food Metformin HCl ND 65747654354 500 MG Orally September 08, Active 1 tablet Once a day 2017 with a [address] [facility] 74850415622 10 MG Orally September 08, Active 1 tablet Once a day 2018 Results No Known Results Summary Purpose eClinicalWorks Submission
[2019-02-09] MEDS ORDERED: NA CHLORIDE 0.9% 1,000 ML ONE (17:20)
[2019-02-09 17:32] LABS: Absolute Lymphocytes (CBC) 1.6 K/uL (0.7-4.9); Basophils % 0.4 % (0-1.3); Hematocrit 33.3 % (39.6-49.0); Lymphocytes % 21.4 % (15.3-44.8); MPV 8.5 fL (7.6-11.3); RBC Red Blood Cell Count 3.53 M/uL (4.33-5.43)
[2019-02-09 17:35] LABS: Protime INR 1.27
[2019-02-09 17:49] LABS: Urine Blood NEGATIVE (NEG); Urine Glucose NEGATIVE (NEG); Urine Protein TRACE (NEG)
[2019-02-09 17:51] LABS: ALT/SGPT 25 U/L (12-78); AST/SGOT 12 U/L (15-37); Albumin 2.8 g/dL (3.4-5.0); Alkaline Phosphatase 86 U/L (45-117); BUN Blood Urea Nitrogen 16 mg/dL (7-18); Bicarbonate 29 mmol/L (21-32); Bilirubin Direct 0.1 mg/dL (0-0.2); Bilirubin Total 0.3 mg/dL (0.2-1.0); Glucose Level 100 mg/dL (74-106); NT PRO-BNP 2209 pg/mL (<450); Protein, Total 6.6 g/dL (6.4-8.2); Sodium Level 138 mmol/L (136-145); Troponin (Emerg Dept Use Only) < 0.02 ng/mL (0.0-0.045)
--- NOTE | 2019-02-09 19:06 | RAD REPORT ---
EXAM DESCRIPTION: CT - Head Brain Wo Cont - 02/09/2019 6:56 pm CLINICAL HISTORY: Seizure, transient alteration of awareness COMPARISON: CT head Jul 09 2018 TECHNIQUE: Axial 5 mm thick images of the head were obtained without IV contrast. All CT scans are performed using dose optimization technique as appropriate and may include automated exposure control or mA/KV adjustment according to patient size. FINDINGS: No intracranial hemorrhage, mass, edema or shift of mid-line structures. No acute cortical based infarction identified. There is a large area of encephalomalacia involving the right frontal a nd parietal lobes is well is a portion of the temporal lobe. This is the sequela of the subacute infa rction detailed on the June examination. Right lateral ventricle has enlarged in proportion to the cristina unt of encephalomalacia. Patient has underlying atrophy and mild chronic ischemic change. Arterial an d physiologic calcifications are present. Mastoid air cells are clear. No acute paranasal sinus finding. No acute bony findings. IMPRESSION: No acute intracranial finding identifiable. 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
--- NOTE | 2019-02-09 19:21 | RAD REPORT ---
EXAM DESCRIPTION: RAD - Chest Single View - 02/09/2019 5:47 pm CLINICAL HISTORY: Palpitations, a arrhythmia COMPARISON: April 2018 TECHNIQUE: AP portable chest image was obtained 1743 hours . FINDINGS: No peripheral mass or consolidation. Interstitial opacification is present. Lung volumes a re low. A mild interstitial edema is suspected. Cardiomegaly is present. Sternotomy wires are in plac e. Vasculature is prominent. Trachea is midline. No measurable pleural effusion and no pneumothorax. No acute bony abnormality seen. No acute aortic findings suspected. IMPRESSION: Suspected mild failure or volume overload.
[2019-02-09 20:06] VITALS: TEMP 98.2; O2SAT 100
[2019-02-09 20:08] VITALS: BP 123/82
--- NOTE | 2019-02-09 20:08 | EDPHYS ---
Physician Documentation [facility] Name: Leonidas Corona Age: 78 yrs Sex: Male : 1940 Arrival Date: 02/09/2019 Time: 16:41 Bed 6 Private MD: ED Physician Ramona Mendoza HPI: 02/09 17:56 This 78 yrs old Male presents to ER via EMS with complaints of Probable ma2 Seizure. 17:56 The patient presents after having a single isolated seizure, that lasted 1 minute(s). ma2 Character of seizure(s): Motor activity: focal activity, of the left hand and left arm. Seizure onset: today, 2 hour(s) ago. Associated injury: The patient did not suffer any apparent associated injury. Current symptoms: Currently, the patient is not experiencing any symptoms. The patient has not experienced similar symptoms in the past. s/p ischemic stroke November 2018 here with left sided arm shaking that was involuntary and lasted for 1 min. head was turned to left and was staring, no loc, yet he remembers everything that happened never had this before, no other symptoms,. Historical: - Allergies: 16:47 No Known Allergies; hb - Home Meds: 16:47 aspirin 81 mg Oral chew 1 tab once daily [Active]; Benicar Oral [Active]; Celexa 40 mg hb Oral tab [Active]; Crestor Oral [Active]; Eliquis 2.5 mg Oral tab 1 tab 2 times per day [Active]; Flomax 0.4 mg Oral cp24 [Active]; Furosemide Oral [Active]; gabapentin Oral [Active]; gabapentin 600 mg Oral tab [Active]; Magnesium Oxide Oral 800 mg [Active]; olmesartan Oral [Active]; ondansetron HCl 4 mg Oral tab [Active]; sennosides-docusate sodium Oral [Active]; simvastatin 10 mg Oral tab [Active]; Tambocor 50 mg Oral tab 1 tab every 12 hours [Active]; Xanax Oral [Active]; metformin 500 mg Oral Tb24 1 tab once daily [Active]; metoprolol succinate 50 mg oral Tb24 1 tab once daily [Active]; - PMHx: 16:47 Atrial Fib; CVA; High Cholesterol; mitral valve repair; hb - PSHx: 16:47 Appendectomy; Knee surgery; hb - Immunization history:: Adult Immunizations up to date. - Social history:: Smoking status: Patient/guardian denies using tobacco, Patient/guardian denies using alcohol, street drugs, The patient lives with family, with spouse. - Ebola Screening: : No symptoms or risks identified at this time. - Family history:: not pertinent. ROS: 17:56 Constitutional: Negative for fever, chills, and weight loss. ma2 17:56 Respiratory: Positive for cough, Negative for hemoptysis, shortness of breath, wheezing. 17:56 All other systems are negative. Exam: 17:56 Constitutional: This is a well developed, well nourished patient who is awake, alert, ma2 and in no acute distress. Head/Face: Normocephalic, atraumatic. Eyes: Pupils equal round and reactive to light, extra-ocular motions intact. Lids and lashes normal. Conjunctiva and sclera are non-icteric and not injected. Cornea within normal limits. Periorbital areas with no swelling, redness, or edema. ENT: red oropharynx, Nares patent. No nasal discharge, no septal abnormalities noted. Tympanic membranes are normal and external auditory canals are clear. Oropharynx with no redness, swelling, or masses, exudates, or evidence of obstruction, uvula midline. Mucous membranes moist. Neck: Trachea midline, no thyromegaly or masses palpated, and no cervical lymphadenopathy. Supple, full range of motion without nuchal rigidity, or vertebral point tenderness. No Meningismus. Chest/axilla: Normal chest wall appearance and motion. Nontender with no deformity. No lesions are appreciated. Cardiovascular: Regular rate and rhythm with a normal S1 and S2. No gallops, murmurs, or rubs. Normal PMI, no JVD. No pulse deficits. Respiratory: Lungs have equal breath sounds bilaterally, clear to auscultation and percussion. No rales, rhonchi or wheezes noted. No increased work of breathing, no retractions or nasal flaring. Abdomen/GI: Soft, non-tender, with normal bowel sounds. No distension or tympany. No guarding or rebound. No evidence of tenderness throughout. MS/ Extremity: Pulses equal, no cyanosis. Neurovascular intact. Full, normal range of motion. Neuro: Awake and alert, GCS 15, oriented to person, place, time, and situation. has left facial droop that is old, potherwise other cranial nerves grossly intact. Motor strength 5/5 in right UE and LE, 0/5 in both UE and LE, this weakness is residual from prior stroke, no new neurodeficit. Sensory grossly intact. Cerebellar exam normal. Vital Signs: 16:47 BP 134 / 82; Pulse 101; Resp 16; Temp 98.2; Pulse Ox 100% ; Weight 83.91 kg; Height 5 hb ft. 7 in. (170.18 cm); Pain 0/10; 17:45 BP 123 / 82; Pulse 86; Resp 15; Pulse Ox 100% on R/A; Pain 0/10; hb 16:47 Body Mass Index 28.97 (83.91 kg, 170.18 cm) hb Evans Coma Score: 16:42 Eye Response: spontaneous(4). Verbal Response: oriented(5). Motor Response: obeys hb commands(6). Total: 15. MDM: 17:11 Patient medically screened. ma2 17:56 Differential diagnosis: seizure, electrolytes abnormality +/- acute bronchitis, ma2 unlikely CAP, will get seizure workup, includeing CTH and CXR to rule out pneumonia . 19:21 Data reviewed: vital signs, nurses notes. Counseling: I had a detailed discussion with ma2 the patient and/or guardian regarding: the historical points, exam findings, and any diagnostic results supporting the discharge/admit diagnosis, the presence of at least one elevated blood pressure reading (>120/80) during this emergency department visit, the need for outpatient follow up. Response to treatment: the patient's symptoms have markedly improved after treatment. 02/09 17:11 Order name: Basic Metabolic Panel; Complete Time: 18:15 hb 02/09 17:11 Order name: CBC with Diff; Complete Time: 18:15 hb 02/09 17:11 Order name: LFT's; Complete Time: 18:15 hb 02/09 17:11 Order name: Magnesium; Complete Time: 18:15 hb 02/09 17:11 Order name: NT PRO-BNP; Complete Time: 18:15 hb 02/09 17:11 Order name: PT-INR; Complete Time: 18:15 hb 02/09 17:11 Order name: Troponin (emerg Dept Use Only); Complete Time: 18:15 hb 02/09 17:11 Order name: XRAY Chest (1 view) hb 02/09 17:11 Order name: Cardiac monitoring; Complete Time: 17:12 hb 02/09 17:13 Order name: CT Head Brain wo Cont; Complete Time: 19:21 ma2 02/09 17:21 Order name: Flu; Complete Time: 18:15 ma2 02/09 17:40 Order name: Urine Dipstick--Ancillary (enter results); Complete Time: 18:15 em1 02/09 17:11 Order name: EKG - Nurse/Tech; Complete Time: 17:45 hb 02/09 17:11 Order name: IV Saline Lock; Complete Time: 17:45 hb 02/09 17:11 Order name: Labs collected and sent; Complete Time: 17:45 hb 02/09 17:11 Order name: O2 Per Protocol; Complete Time: 17:12 hb 02/09 17:11 Order name: O2 Sat Monitoring; Complete Time: 17:12 hb 02/09 17:21 Order name: Urine Dipstick-Ancillary (obtain specimen); Complete Time: 17:37 ma2 Administered Medications: 17:25 Drug: NS 0.9% 1000 ml Route: IV; Rate: 1 bolus; Site: right antecubital; hb 19:00 Follow up: Response: No adverse reaction; IV Status: Completed infusion; IV Intake: jd3 1000ml Disposition: 02/09/19 19:22 Discharged to Home. Impression: Acute bronchitis, Localization-related (focal) (partial) idiopathic epilepsy and epileptic syndromes with seizures of localized onset. - Condition is Stable. - Discharge Instructions: Acute Bronchitis, Adult, Seizure, Adult, [id number]. - Prescriptions for Zithromax Z- Ty 250 mg Oral Tablet - take 1 tablet by ORAL route as directed for 5 days Day 1 - take two (2) tablets one time. Day 2, 3, 4 , 5 take one (1) tablet once daily.; 6 tablet. Medrol (Ty) 4 mg Oral Tablets, Dose Pack - take 1 tablet by ORAL route as directed - follow package instructions; 1 packet. - Medication Reconciliation Form, Thank You Letter, Antibiotic Education, Prescription Opioid Use form. - Follow up: Private Physician; When: Tomorrow; Reason: Continuance of care. Signatures: Dispatcher [employer] EDMS Estefani Freeman RN RN Michael Vo RN RN jd3 Ramona Mendoza MD MD ma2 Corrections: (The following items were deleted from the chart) 20:01 19:22 02/09/2019 19:22 Discharged to Home. Impression: Acute bronchitis; jd3 Localization-related (focal) (partial) idiopathic epilepsy and epileptic syndromes with seizures of localized onset. Condition is Stable. Discharge Instructions: Acute Bronchitis, Adult, Seizure, Adult, [id number]. Prescriptions for Zithromax Z-Ty 250 mg Oral Tablet - take 1 tablet by ORAL route as directed for 5 days Day 1 - take two (2) tablets one time. Day 2, 3, 4 , 5 take one (1) tablet once daily.; 6 tablet, Medrol (Ty) 4 mg Oral Tablets, Dose Pack - take 1 tablet by ORAL route as directed - follow package instructions; 1 packet. and Forms are Medication Reconciliation Form, Thank You Letter, Antibiotic Education, Prescription Opioid Use. Follow up: Private Physician; When: Tomorrow; Reason: Continuance of care. ma2
--- NOTE | 2019-02-09 20:08 | ER ---
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 On scene pt AOx4, HR 40-120s and irregular on 12 lead, 20g RIGHT AC, ASA 324mg administered SVP [employer]. Hx of AFib, CVA w/left sided weakness. Transition of care: patient was not received from another setting of care. Onset of symptoms was February 09, 2019. Risk Assessment: Do you want to hurt yourself or someone else? Patient reports no desire to harm self or others. Initial Sepsis Screen: Does the patient meet any 2 criteria? No. Patient's initial sepsis screen is negative. Does the patient have a suspected source of infection? No. Patient's initial sepsis screen is negative. Care prior to arrival: IV initiated. 20 GA, in the right antecubital area. 16:41 Method Of Arrival: EMS: [facility] 16:41 Acuity: EFFIE 3 hb Triage Assessment: 16:42 General: Appears in no apparent distress. Behavior is calm, cooperative. Pain: Denies hb pain. EENT: No signs and/or symptoms were reported regarding the EENT system. Neuro: Level of Consciousness is awake, alert, obeys commands, Oriented to person, place, time, situation. Cardiovascular: Heart tones S1 S2 present Capillary refill < 3 seconds Patient's skin is warm and dry. Respiratory: Airway is patent Respiratory effort is even, unlabored, Respiratory pattern is regular, symmetrical, Breath sounds are clear bilaterally. GI: No signs and/or symptoms were reported involving the gastrointestinal system. : No signs and/or symptoms were reported regarding the genitourinary system. Derm: Skin is pink, warm \T\ dry. Musculoskeletal: No signs and/or symptoms reported regarding the musculoskeletal system. Historical: - Allergies: 16:47 No Known Allergies; hb - Home Meds: 16:47 aspirin 81 mg Oral chew 1 tab once daily [Active]; Benicar Oral [Active]; Celexa 40 mg hb Oral tab [Active]; Crestor Oral [Active]; Eliquis 2.5 mg Oral tab 1 tab 2 times per day [Active]; Flomax 0.4 mg Oral cp24 [Active]; Furosemide Oral [Active]; gabapentin Oral [Active]; gabapentin 600 mg Oral tab [Active]; Magnesium Oxide Oral 800 mg [Active]; olmesartan Oral [Active]; ondansetron HCl 4 mg Oral tab [Active]; sennosides-docusate sodium Oral [Active]; simvastatin 10 mg Oral tab [Active]; Tambocor 50 mg Oral tab 1 tab every 12 hours [Active]; Xanax Oral [Active]; metformin 500 mg Oral Tb24 1 tab once daily [Active]; metoprolol succinate 50 mg oral Tb24 1 tab once daily [Active]; - PMHx: 16:47 Atrial Fib; CVA; High Cholesterol; mitral valve repair; hb - PSHx: 16:47 Appendectomy; Knee surgery; hb - Immunization history:: Adult Immunizations up to date. - Social history:: Smoking status: Patient/guardian denies using tobacco, Patient/guardian denies using alcohol, street drugs, The patient lives with family, with spouse. - Ebola Screening: : No symptoms or risks identified at this time. - Family history:: not pertinent. Screenin:49 Abuse screen: Denies threats or abuse. Denies injuries from another. Nutritional hb screening: No deficits noted. Tuberculosis screening: No symptoms or risk factors identified. Fall Risk None identified. Assessment: 16:50 General: see triage assessment. hb 17:45 Reassessment: Patient appears in no apparent distress at this time. Patient and/or hb family updated on plan of care and expected duration. Pain level reassessed. Patient is alert, oriented x 3, equal unlabored respirations, skin warm/dry/pink. 18:45 Reassessment: Patient appears in no apparent distress at this time. Patient and/or hb family updated on plan of care and expected duration. Pain level reassessed. Patient is alert, oriented x 3, equal unlabored respirations, skin warm/dry/pink. 19:58 Reassessment: pt and family reported understanding of discharge instructions. assisted jd3 pt to vehicle with wheelchair. General: Appears in no apparent distress. comfortable, Behavior is calm, cooperative, appropriate for age. Pain: Denies pain. Neuro: Level of Consciousness is awake, alert, obeys commands, Oriented to person, place, time, situation. Cardiovascular: Denies chest pain, Capillary refill < 3 seconds Patient's skin is warm and dry. Respiratory: Airway is patent Respiratory effort is even, unlabored, Respiratory pattern is regular, symmetrical, Denies shortness of breath. GI: No signs and/or symptoms were reported involving the gastrointestinal system. : No signs and/or symptoms were reported regarding the genitourinary system. EENT: No signs and/or symptoms were reported regarding the EENT system. Derm: Skin is intact, Skin is dry, Skin is normal, Skin temperature is warm. Vital Signs: 16:47 BP 134 / 82; Pulse 101; Resp 16; Temp 98.2; Pulse Ox 100% ; Weight 83.91 kg; Height 5 hb ft. 7 in. (170.18 cm); Pain 0/10; 17:45 BP 123 / 82; Pulse 86; Resp 15; Pulse Ox 100% on R/A; Pain 0/10; hb 16:47 Body Mass Index 28.97 (83.91 kg, 170.18 cm) hb Salisbury Coma Score: 16:42 Eye Response: spontaneous(4). Verbal Response: oriented(5). Motor Response: obeys hb commands(6). Total: 15. ED Course: 16:41 Patient arrived in ED. hb 16:44 Triage completed. hb 16:47 Arm band placed on. hb 16:49 Patient has correct armband on for positive identification. Bed in low position. Call hb light in reach. Side rails up X 1. 16:49 Maintain EMS IV. Dressing intact. Good blood return noted. Site clean \T\ dry. Gauge \T\ hb site: 20g LAC. 17:11 Ramnoa Mendoza MD is Attending Physician. ma2 17:15 Estefani Freeman, SHAY is Primary Nurse. hb 17:44 XRAY Chest (1 view) In Process Unspecified. EDMS 18:57 CT Head Brain wo Cont In Process Unspecified. EDMS 19:00 Seizure precautions initiated. jd3 19:57 No provider procedures requiring assistance completed. IV discontinued, intact, jd3 bleeding controlled, No redness/swelling at site. Pressure dressing applied. Administered Medications: 17:25 Drug: NS 0.9% 1000 ml Route: IV; Rate: 1 bolus; Site: right antecubital; hb 19:00 Follow up: Response: No adverse reaction; IV Status: Completed infusion; IV Intake: jd3 1000ml Intake: 19:00 IV: 1000ml; Total: 1000ml. jd3 Outcome: 19:22 Discharge ordered by MD. cruz 19:59 Discharged to home via wheelchair, with family. jd3 19:59 Condition: stable 19:59 Discharge instructions given to patient, family, Instructed on discharge instructions, follow up and referral plans. medication usage, Demonstrated understanding of instructions, follow-up care, medications, Prescriptions given X 2. 20:01 Patient left the ED. 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 On scene pt AOx4, HR 40-120s and irregular on 12 lead, 20g RIGHT AC, ASA 324mg administered SVP [employer]. hb
== END 2019-02-09 20:01 | disposition home or self-care (01) ==
LOC: ER 16:37
DX: J20.9 Acute bronchitis, unspecified (principal); G40.009 Localization-related (focal) (partial) idiopathic epilepsy and epileptic syndromes with seizures of localized onset, not intractable, without status epilepticus; I48.91 Unspecified atrial fibrillation; E78.00 Pure hypercholesterolemia, unspecified; Z79.01 Long term (current) use of anticoagulants; Z79.82 Long term (current) use of aspirin; Z86.73 Personal history of transient ischemic attack (TIA), and cerebral infarction without residual deficits
CPT/HCPCS: 96361; 85025; 80048; 36415; 83735; 85610; 80076; 81003; 84484; 83880; 87804 ×2; 70450; 71045; 96360; 99284; J7030

== ENCOUNTER 2019-06-10 08:07 | Inpatient (IN) | payer OTHER ==
--- OUTSIDE RECORDS SUMMARY | 2019-06-10 08:20 | XMS REPORT ---
:1940 Author Organization [employer] Care Team Providers Name Role Phone Blu Gray Provider Role Unavailable Allergies, Adverse Reactions, Alerts Substance Reaction Event Type N.K.D.A. Info Not Available Non Drug Allergy Problems Problem Type Condition Code Onset Dates Condition Statu s Problem Closed displaced fracture of head S52.122D Active of left radius with routine healing, subsequent encounter Problem Elbow pain, left M25.522 Active Assessment Elbow pain, left M25.522 Active Assessment Closed displaced fracture of head S52.122D Active of left radius with routine healing, subsequent encounter Medications Medication Code Code Instructions Start End Status Dosage System Date Date Crestor [facility] 48340182017 10 MG Orally September 08, Active 1 tabl et Once a day 2017 Xanax [facility] 17745239160 0.5 MG Orally September 08, Active 1 tab let Twice a day 2017 Metformin HCl [facility] 09607128148 500 MG Orally September 08, Active 1 tablet Once a day 2018 with a meal Benicar [facility] 06307822409 20 MG Orally September 08, Active 1 tabl et Once a day 2018 Flecainide ND 13540905596 50 MG Orally September 08, Active as directed Acetate 2018 Xarelto [facility] 57322006134 10 MG Orally September 08, Active 1 tabl et Once a day 2018 with food Results No Known Results Summary Purpose [employer] Submission
--- OUTSIDE RECORDS SUMMARY | 2019-06-10 08:20 | XMS REPORT ---
:[address] [facility] Address [address] [place] [address] Dr. Felix [address] [place] [id number] Care Team Providers Name Role Phone Unavailable Unavailable Unavailable Problems Condition Condition Condition Status Onset Resolution Last Treatin g Comments Name Details Category Date Date Treatment Clinician Date Elbow pain, Elbow pain, Diagnosis Active left left Closed Closed Diagnosis Active displaced displaced fracture of fracture of head of head of left radius left radius with with routine routine healing, healing, subsequent subsequent encounter encounter Allergies, Adverse Reactions, Alerts This patient has no known allergies or adverse reactions. Medications Ordered Filled Start Stop Current Ordering Indication Dosage Frequency Signature Comments Components Medication Medication Date Date Medication? Clinician (SIG) Name Name Flecainide Flecainide 2018 Yes Blu as Acetate Acetate 09-08 Gray directed 00:00: 00 Benicar Benicar 2017- Yes Blu 1 tablet 09-08 Gray 00:00: 00 Xanax Xanax 2017- Yes Blu 1 tablet 09-08 Gray 00:00: 00 Xarelto Xarelto 2017-0 Yes Blu 1 tablet 09-08 Gray with food 00:00: 00 Metformin Metformin Yes Blu 1 tablet HCl HCl 09-08 Gray with a 00:00: meal 00 Crestor Crestor 2017-0 Yes Blu 1 tablet 09-08 Gray 00:00: 00 Encounters Start End Encounter Admission Attending Care Care Encounter Date/Time Date/Time Type Type Clinicians Facility Department ID 2017-10-20 2017-10-20 Outpatient [facility] 1 [id number] 08:30:00 08:30:00 [facility] 2017-09-08 2017-09-08 [facility] [place] [facility] [id number] 08:30:00 08:30:00 [facility]
--- OUTSIDE RECORDS SUMMARY | 2019-06-10 08:20 | XMS REPORT ---
:1940 Author Organization [employer] Care Team Providers Name Role Phone GrayBlu Provider Role Unavailable Allergies, Adverse Reactions, Alerts Substance Reaction Event Type N.K.D.A. Info Not Available Non Drug Allergy Problems Problem Type Condition Code Onset Dates Condition Statu s Assessment Elbow pain, left M25.522 Active Assessment Closed displaced fracture of head S52.122D Active of left radius with routine healing, subsequent encounter Assessment Sprain of left shoulder, S43.402D Act emma unspecified shoulder sprain type, subsequent encounter Medications Medication Code Code Instructions Start End Status Dosage System Date Date Flecainide [facility] [id number] 50 MG Orally September 08, Active as directed Acetate 2017 Benicar [facility] 57986527531 20 MG Orally September 08, Active 1 tabl et Once a day 2017 Xanax [facility] 89441017570 0.5 MG Orally September 08, Active 1 tab let Twice a day 2017 Xarelto [facility] 18220170405 10 MG Orally September 08, Active 1 tabl et Once a day 2018 with food Metformin HCl [facility] 43633877970 500 MG Orally September 08, Active 1 tablet Once a day 2017 with a meal Crestor [facility] 48878770008 10 MG Orally September 08, Active 1 tabl et Once a day 2018 Results No Known Results Summary Purpose e[employer]Works Submission
[2019-06-10] MEDS ORDERED: ONDANSETRON 4 MG/2 ML VIAL ONE (08:49)
[2019-06-10] MEDS ORDERED: MORPHINE 4 MG/ML SYR ONE (08:49)
[2019-06-10] MEDS ORDERED: NA CHLORIDE 0.9% 1,000 ML ONE ×2 (09:02→09:05)
[2019-06-10 09:11] LABS: Absolute Lymphocytes (CBC) 0.9 K/uL (0.7-4.9); Basophils % 0.4 % (0-1.3); Hematocrit 40.9 % (39.6-49.0); Lymphocytes % 15.7 % (15.3-44.8); MPV 8.8 fL (7.6-11.3); Protime INR 1.16; RBC Red Blood Cell Count 4.54 M/uL (4.33-5.43)
[2019-06-10 09:26] LABS: ALT/SGPT 23 U/L (12-78); AST/SGOT 12 U/L (15-37); Albumin 3.4 g/dL (3.4-5.0); Alkaline Phosphatase 96 U/L (45-117); BUN Blood Urea Nitrogen 18 mg/dL (7-18); Bicarbonate 32 mmol/L (21-32); Bilirubin Direct 0.2 mg/dL (0-0.2); Bilirubin Total 0.6 mg/dL (0.2-1.0); Glucose Level 100 mg/dL (74-106); Magnesium 2.3 mg/dL (1.8-2.4); NT PRO-BNP 435 pg/mL (<450); Potassium 3.8 mmol/L (3.5-5.1); Protein, Total 7.2 g/dL (6.4-8.2); Sodium Level 138 mmol/L (136-145); Troponin (Emerg Dept Use Only) < 0.02 ng/mL (0.0-0.045)
--- NOTE | 2019-06-10 09:38 | EKG ---
Test Date: 2019-06-10 Test Time: 09:06:42 Cost Engineer: DONALDO MEASUREMENT RESULTS: Intervals: Rate: 77 ND: QRSD: 88 QT: 398 QTc: 450 [place]: P: ND: QRS: 39 T: 205 INTERPRETIVE STATEMENTS: Atrial fibrillation nonspecific ST & T wave abnormality Abnormal ECG Electronically Signed On 06-10-19 09:37:07 CDT by Young Mcdonald
--- NOTE | 2019-06-10 09:39 | RAD REPORT ---
EXAM DESCRIPTION: RAD - Hip Left 2 View - 06/10/2019 9:15 am CLINICAL HISTORY: PAINfall COMPARISON: Hip Left 2 View dated 07/18/2018; Pelvis dated 06/10/2019 FINDINGS: AP and cross-table lateral views the left hip were obtained. Proximal left femur fracture is present. Positioning is not optimal. This appears to be a subcapital femoral neck fracture. Neck the short in length. Pathologic etiology is not suspected. There is impac tion along the superior margin of the femoral head which remains positioned in the acetabulum. Smooth rounded contour of the femoral head seen. Left hemipelvis shows no acute finding. No soft tissue abnormality. IMPRESSION: Impacted left femur subcapital neck fracture as detailed.
--- NOTE | 2019-06-10 09:41 | RAD REPORT ---
EXAM DESCRIPTION: RAD - Pelvis - 06/10/2019 9:15 am CLINICAL HISTORY: PAIN, fall COMPARISON: Abdomen Pelvis W Contrast dated 10/02/2018 TECHNIQUE: AP imaging of the pelvis was obtained. FINDINGS: Patient is rotated limiting evaluation of the pelvis. No pelvic fractures suspected. Subcapital left femoral neck fracture is identified further detailed on left hip report. IMPRESSION: No fracture of the pelvis. Left femoral neck fracture is separately detailed.
--- NOTE | 2019-06-10 09:43 | RAD REPORT ---
EXAM DESCRIPTION: RAD - Chest Single View - 06/10/2019 9:15 am CLINICAL HISTORY: COUGH, hip fracture, preoperative chest exam COMPARISON: February 2019 TECHNIQUE: AP portable chest image was obtained 06/10/2019 9:15 am . FINDINGS: Mild chronic interstitial lung disease is evident. Heart size is prominent and vasculature is mildly prominent. These findings are all slightly decreased compared to the February study. Trache a is midline. Sternotomy wires are in place. No measurable pleural effusion and no pneumothorax. No a cute bony abnormality seen. No acute aortic findings suspected. IMPRESSION: No focal mass or consolidation. Heart, vasculature and lung markings are mildly prominent but diminished compared to February. No sign ificant failure or volume overload evident.
--- NOTE | 2019-06-10 09:47 | ER ---
Nurse's Notes [facility] Name: Leonidas Corona Age: 79 yrs Sex: Male : 1940 Arrival Date: 06/10/2019 Time: 08:10 Bed 3 Private MD: Diagnosis: Fall due to bumping against object;Displaced fracture of base of neck of left femur-impacted Presentation: 06/09 08:11 Chief complaint: EMS states: mechanical fall from standing, c/o left hip pain, given em Toradol FILTER TANK TENDER, 18 G RAC. Coronavirus screen: Proceed with normal triage. Patient denies a cough. Patient denies shortness of breath or difficulty breathing. Patient denies measured and/or subjective temperature greater than 100.4F prior to today's visit. Patient denies travel on a cruise ship or to a country the [facility] currently lists as an affected area. Patient denies contact with known and/or suspected case of COVID-19. Ebola Screen: Patient negative for fever greater than or equal to 101.5 degrees Fahrenheit, and additional compatible Ebola Virus Disease symptoms Patient denies exposure to infectious person. Patient denies travel to an Ebola-affected area in the 21 days before illness onset. No symptoms or risks identified at this time. Initial Sepsis Screen: Does the patient meet any 2 criteria? No. Patient's initial sepsis screen is negative. Does the patient have a suspected source of infection? No. Patient's initial sepsis screen is negative. Risk Assessment: Do you want to hurt yourself or someone else? Patient reports no desire to harm self or others. Onset of symptoms was June 10, 2019. 08:11 Method Of Arrival: EMS: [facility] em 08:11 Acuity: EFFIE 3 em 08:13 Care prior to arrival: Medication(s) given: TORADOL 30 MG IV initiated. 18 GA, in the bp right antecubital area. 08:13 Mechanism of Injury: Fall from standing position. Trauma event details: Injury occurred in the [facility], Injury occurred: at home. Injury occurred: June 10, 2019 Injury occurred at: 07:00. Triage Assessment: 08:13 General: SEE TRAUMA NOTE. bp Trauma Activation: Not Applicable Physician: ED Physician; Name: ; Notified At: ; Arrived At: Physician: General Surgeon; Name: ; Notified At: ; Arrived At: Physician: Radiology; Name: ; Notified At: ; Arrived At: Physician: Respiratory; Name: ; Notified At: ; Arrived At: Physician: Lab; Name: ; Notified At: ; Arrived At: Historical: - Allergies: 08:13 No Known Allergies; em - PMHx: 08:13 Atrial Fib; CVA; High Cholesterol; mitral valve repair; em - Immunization history:: Adult Immunizations up to date. - Social history:: Smoking status: Patient denies any tobacco usage or history of. - Immunization history: Last tetanus immunization: unknown. Screenin:23 Abuse screen: Denies threats or abuse. Nutritional screening: No deficits noted. em Tuberculosis screening: No symptoms or risk factors identified. Fall Risk Secondary diagnosis (15 points) impaired mobility, CVA, Ambulatory Aid- Crutches/Cane/Walker (15 pts). Gait- Impaired (20 pts.). Mental Status- Overestimates/Forgets Limitations (15 pts.). Total Doll Fall Scale indicates High Risk Score (45 or more points). Side Rails Up X 2 Placed Close to Nursing Station Frequent Obs/Assessments Occuring. Primary Survey: 08:13 NO uncontrolled hemorrhage observed. A: The patient is alert. Airway: patent. bp Breathing/Chest: Respiratory pattern: regular, Respiratory effort: spontaneous, unlabored. Circulation: Skin color: pink, Skin temperature: warm, dry. Disability Alert. Exposure/Environment: There is no evidence of uncontrolled external bleeding. A warming method has been applied: A warm blanket has been provided to the patient. 10:00 Reassessment Airway Airway Patent Breathing/Chest Respiratory pattern Regular bp Respiratory effort Spontaneous Unlabored Circulation Color [place] Temperature Warm Dry. 11:02 Reassessment Breathing/Chest Respiratory pattern Regular Respiratory effort Spontaneous bp Unlabored. Assessment: 08:13 General: Appears in no apparent distress. comfortable, Behavior is cooperative, bp appropriate for age, anxious. Pain: Complains of pain in left hip. Neuro: No deficits noted. EENT: No deficits noted. Cardiovascular: No deficits noted. Respiratory: No deficits noted. GI: No signs and/or symptoms were reported involving the gastrointestinal system. : No signs and/or symptoms were reported regarding the genitourinary system. Derm: No deficits noted. Musculoskeletal: No deficits noted. 09:18 Reassessment: VS STABLE, PAIN IMPROVED. RAD RESULTS PENDING. bp 10:07 Reassessment: ADMIT INITIATED. PT RESTING QUIETLY, VS STABLE ON MONITOR. bp Vital Signs: 08:11 BP 141 / 72; Pulse 56; Resp 16; Temp 98.2; Pulse Ox 97% on R/A; Weight 86.18 kg; Pain em 10/10; 09:18 BP 141 / 76; Pulse 69; Resp 16; Pulse Ox 95% ; bp 10:07 BP 123 / 82; Pulse 92; Resp 16; Pulse Ox 95% ; bp 11:08 BP 96 / 43; Pulse 79; Resp 18; Pulse Ox 95% ; bp [place] Coma Score: 08:13 Eye Response: spontaneous(4). Verbal Response: oriented(5). Motor Response: obeys bp commands(6). Total: 15. Trauma Score (Adult): 08:13 Eye Response: spontaneous(1); Verbal Response: oriented(1); Motor Response: obeys bp commands(2); Systolic BP: > 89 mm Hg(4); Respiratory Rate: 10 to 29 per min(4); [place] Score: 15; Trauma Score: 12 ED Course: 08:10 Patient arrived in ED. em 08:12 Brian Saenz MD is Attending Physician. azeem 08:13 Triage completed. em 08:13 Arm band placed on. em 08:13 Patient maintains SpO2 saturation greater than 95% on room air. Thermoregulation: warm bp blanket given to patient. 08:22 Misha Small, RN is Primary Nurse. em 08:23 Patient has correct armband on for positive identification. Bed in low position. Call em light in reach. Side rails up X2. Pulse ox on. NIBP on. 09:15 Pelvis XRAY In Process Unspecified. EDMS 09:15 Hip Left 2 View XRAY In Process Unspecified. EDMS 09:15 XRAY Chest (1 view) In Process Unspecified. EDMS 09:45 Kerwin Marlow MD is Hospitalizing Provider. azeem 10:39 Urine collected: clean catch specimen, clear. dh3 11:01 No provider procedures requiring assistance completed. Patient admitted, IV remains in bp place. Administered Medications: 08:46 Drug: morphine 4 mg Route: IVP; Site: right forearm; bp 09:25 Follow up: Response: No adverse reaction; Marked relief of symptoms; Pain is decreased; em RASS: Alert and Calm (0) 08:46 Drug: Zofran (Ondansetron) 4 mg Route: IVP; Site: right forearm; bp 09:25 Follow up: Response: No adverse reaction em 09:04 Drug: NS 0.9% 1000 ml Route: IV; Rate: 125 ml/hr; Site: right antecubital; em 11:15 Follow up: IV Status: Completed infusion; IV Intake: 250ml bp Intake: 08:13 PO: 0ml; Total: 0ml. bp 11:15 IV: 250ml; Total: 250ml. bp Output: 08:13 Urine: 0ml; Total: 0ml. bp Outcome: 09:47 Decision to Hospitalize by Provider. azeem 11:08 Condition: stable bp 11:08 Patient's length of stay was not longer than 2 hours. 11:12 Admitted to Tele accompanied by tech, via wheelchair, room 206, with chart, Report bp called to DOUGLAS DAY 11:12 Instructed on the need for admit. 11:16 Patient left the ED. bp Signatures: Dispatcher [employer] Brian Alejo MD MD cha Munoz, Edgar, RN RN Kailey Knight [facility] Ervin Hernandez RN RN bp Corrections: (The following items were deleted from the chart) 11:13 11:08 Discharged to home ambulatory, bp bp
--- NOTE | 2019-06-10 09:48 | EDPHYS ---
Physician Documentation [facility] Name: Leonidas Corona Age: 79 yrs Sex: Male : 1940 Arrival Date: 06/10/2019 Time: 08:10 Bed 3 Private MD: ED Physician Brian Saenz HPI: 06/09 08:44 This 79 yrs old Male presents to ER via EMS with complaints of Fall Injury. azeem 08:44 Details of fall: The patient fell from an upright position, while walking. Onset: The azeem symptoms/episode began/occurred just prior to arrival. Associated injuries: The patient sustained left hip, left gluteal fold, left inner thigh and left upper thigh, decreased range of motion, deformity. Severity of symptoms: At their worst the symptoms were moderate, in the emergency department the symptoms are unchanged. The patient has not experienced similar symptoms in the past. Historical: - Allergies: 08:13 No Known Allergies; em - PMHx: 08:13 Atrial Fib; CVA; High Cholesterol; mitral valve repair; em - Immunization history:: Adult Immunizations up to date. - Social history:: Smoking status: Patient denies any tobacco usage or history of. - Immunization history: Last tetanus immunization: unknown. ROS: 08:45 Constitutional: Negative for fever, chills, and weight loss, Eyes: Negative for injury, azeem pain, redness, and discharge, ENT: Negative for injury, pain, and discharge, Neck: Negative for injury, pain, and swelling, Cardiovascular: Negative for chest pain, palpitations, and edema, Respiratory: Negative for shortness of breath, cough, wheezing, and pleuritic chest pain, Abdomen/GI: Negative for abdominal pain, nausea, vomiting, diarrhea, and constipation, Back: Negative for injury and pain, : Negative for injury, bleeding, discharge, and swelling, Skin: Negative for injury, rash, and discoloration, Neuro: Negative for headache, weakness, numbness, tingling, and seizure, Psych: Negative for depression, anxiety, suicide ideation, homicidal ideation, and hallucinations, Allergy/Immunology: Negative for hives, rash, and allergies, Endocrine: Negative for neck swelling, polydipsia, polyuria, polyphagia, and marked weight changes, Hematologic/Lymphatic: Negative for swollen nodes, abnormal bleeding, and unusual bruising. 08:45 MS/extremity: Positive for decreased range of motion, pain, tenderness. 08:45 MS/extremity: Positive for of the left hip, left gluteal fold, left inner thigh and left upper thigh, hip pain, rotated. Exam: 08:45 Constitutional: This is a well developed, well nourished patient who is awake, alert, azeem and in no acute distress. Head/Face: Normocephalic, atraumatic. Eyes: Pupils equal round and reactive to light, extra-ocular motions intact. Lids and lashes normal. Conjunctiva and sclera are non-icteric and not injected. Cornea within normal limits. Periorbital areas with no swelling, redness, or edema. ENT: Nares patent. No nasal discharge, no septal abnormalities noted. Tympanic membranes are normal and external auditory canals are clear. Oropharynx with no redness, swelling, or masses, exudates, or evidence of obstruction, uvula midline. Mucous membranes moist. Neck: Trachea midline, no thyromegaly or masses palpated, and no cervical lymphadenopathy. Supple, full range of motion without nuchal rigidity, or vertebral point tenderness. No Meningismus. Chest/axilla: Normal chest wall appearance and motion. Nontender with no deformity. No lesions are appreciated. Cardiovascular: Regular rate and rhythm with a normal S1 and S2. No gallops, murmurs, or rubs. Normal PMI, no JVD. No pulse deficits. Respiratory: Lungs have equal breath sounds bilaterally, clear to auscultation and percussion. No rales, rhonchi or wheezes noted. No increased work of breathing, no retractions or nasal flaring. Abdomen/GI: Soft, non-tender, with normal bowel sounds. No distension or tympany. No guarding or rebound. No evidence of tenderness throughout. Back: No spinal tenderness. No costovertebral tenderness. Full range of motion. Male : Normal genitalia with no discharge or lesions. Skin: Warm, dry with normal turgor. Normal color with no rashes, no lesions, and no evidence of cellulitis. Neuro: Awake and alert, GCS 15, oriented to person, place, time, and situation. Cranial nerves II-XII grossly intact. Motor strength 5/5 in all extremities. Sensory grossly intact. Cerebellar exam normal. Normal gait. Psych: Awake, alert, with orientation to person, place and time. Behavior, mood, and affect are within normal limits. 08:45 Musculoskeletal/extremity: Extremities: noted in the left hip, left gluteal fold, left inner thigh and left upper thigh: decreased ROM, pain, ROM: limited active range of motion due to pain, limited passive range of motion due to pain, Circulation is intact in all extremities. Sensation intact. Compartment Syndrome exam of affected extremity: is normal. Joints: All joints appear normal with full range of motion. Weight bearing: is unable to bear weight, DVT Exam: no swelling, negative Homans' sign noted on exam, no appreciated bluish discoloration, no erythema, no increased warmth, pain, tenderness. 09:00 Head/face: Exam is negative for acute changes, atraumatic, normocephalic. [facility] 09:19 ECG was reviewed by the Attending Physician. [facility] Vital Signs: 08:11 BP 141 / 72; Pulse 56; Resp 16; Temp 98.2; Pulse Ox 97% on R/A; Weight 86.18 kg; Pain em 10/10; 09:18 BP 141 / 76; Pulse 69; Resp 16; Pulse Ox 95% ; bp 10:07 BP 123 / 82; Pulse 92; Resp 16; Pulse Ox 95% ; bp 11:08 BP 96 / 43; Pulse 79; Resp 18; Pulse Ox 95% ; bp [place] Coma Score: 08:13 Eye Response: spontaneous(4). Verbal Response: oriented(5). Motor Response: obeys bp commands(6). Total: 15. Trauma Score (Adult): 08:13 Eye Response: spontaneous(1); Verbal Response: oriented(1); Motor Response: obeys bp commands(2); Systolic BP: > 89 mm Hg(4); Respiratory Rate: 10 to 29 per min(4); Verónica Score: 15; Trauma Score: 12 MDM: 08:12 Patient medically screened. [facility] 08:48 Data reviewed: vital signs, nurses notes, lab test result(s), EKG, radiologic studies, [facility] plain films. 08:49 Differential diagnosis: hip fracture, intertrochanteric fracture, femoral neck azeem fracture, femoral shaft fracture. Differential diagnosis: fracture. Data interpreted: telemetry monitor: rate is 56 beats/min, Pulse oximetry: on room air is 97 %. Test interpretation: by ED physician or midlevel provider: ECG, plain radiologic studies. Counseling: I had a detailed discussion with the patient and/or guardian regarding: the historical points, exam findings, and any diagnostic results supporting the discharge/admit diagnosis, lab results, radiology results, the need for further work-up and treatment in the hospital. Medication response: Zofran partially relieved the patient's nausea. 09:00 ED course: hx of cva, on eliquis, spoke dr rowan, he will admit and wanr dr aura gann consulted. 10:03 Physician consultation: Ole Purdy MD and will see patient in the hospital. [facility] 06/09 08:44 Order name: Basic Metabolic Panel; Complete Time: 10:03 azeem 06/09 08:44 Order name: CBC with Diff; Complete Time: 10:03 azeem 06/09 08:44 Order name: LFT's; Complete Time: 10:03 azeem 06/09 08:44 Order name: Magnesium; Complete Time: 10:03 azeem 06/09 08:44 Order name: NT PRO-BNP; Complete Time: 10:03 azeem 06/09 08:44 Order name: PT-INR; Complete Time: 10:03 azeem 06/09 08:33 Order name: Pelvis XRAY; Complete Time: 10:03 bp 06/09 08:33 Order name: Hip Left 2 View XRAY; Complete Time: 10:03 bp 06/09 08:44 Order name: Troponin (emerg Dept Use Only); Complete Time: 10:03 azeem 06/09 08:44 Order name: XRAY Chest (1 view); Complete Time: 10:03 azeem 06/09 10:40 Order name: Urine Dipstick--Ancillary (enter results) eb 06/09 11:11 Order name: Urine Dipstick-Ancillary EDIA 06/09 08:44 Order name: EKG; Complete Time: 08:45 azeem 06/09 08:44 Order name: Cardiac monitoring; Complete Time: 08:45 azeem 06/09 08:44 Order name: EKG - Nurse/Tech; Complete Time: 08:52 azeem 06/09 08:44 Order name: IV Saline Lock; Complete Time: 08:46 azeem 06/09 08:44 Order name: Labs collected and sent; Complete Time: 08:52 azeem 06/09 08:44 Order name: O2 Per Protocol; Complete Time: 08:45 azeem 06/09 08:44 Order name: O2 Sat Monitoring; Complete Time: 08:45 [facility] 06/09 08:44 Order name: Urine Dipstick-Ancillary (obtain specimen); Complete Time: 10:39 [facility] 06/09 09:53 Order name: CONS Physician Consult EDIA EC:19 Rate is 77 beats/min. Rhythm is irregularly irregular. QRS [place] is Normal. NM interval azeem is normal. QRS interval is normal. QT interval is normal. No Q waves. T waves are Inverted. No ST changes noted. Clinical impression: Atrial Fibrillation and Atrial Flutter. Interpreted by me. Reviewed by me. Administered Medications: 08:46 Drug: morphine 4 mg Route: IVP; Site: right forearm; bp 09:25 Follow up: Response: No adverse reaction; Marked relief of symptoms; Pain is decreased; em RASS: Alert and Calm (0) 08:46 Drug: Zofran (Ondansetron) 4 mg Route: IVP; Site: right forearm; bp 09:25 Follow up: Response: No adverse reaction em 09:04 Drug: NS 0.9% 1000 ml Route: IV; Rate: 125 ml/hr; Site: right antecubital; em 11:15 Follow up: IV Status: Completed infusion; IV Intake: 250ml bp Disposition: 06/10/19 09:47 Hospitalization ordered by Kerwin Rowan for Inpatient Admission. Preliminary diagnosis are Fall due to bumping against object, Displaced fracture of base of neck of left femur - impacted. - Bed requested for Telemetry/MedSurg (Inpatient). - Status is Inpatient Admission. bp - Condition is Stable. - Problem is new. - Symptoms have improved. Signatures: Dispatcher [employer] EDIA Brian Saenz MD MD cha Munoz, Edgar, RN RN Migue Felipe RN RN ja1 Ervin Hernandez, RN RN bp Corrections: (The following items were deleted from the chart) 10:45 09:47 Hospitalization Ordered by Kerwin Rowan MD for Inpatient Admission. Preliminary ja1 diagnosis is Fall due to bumping against object; Displaced fracture of base of neck of left femur - impacted. Bed requested for Telemetry/MedSurg (Inpatient). Status is Inpatient Admission. Condition is Stable. Problem is new. Symptoms have improved. azeem 11:16 10:45 06/10/2019 09:47 Hospitalization Ordered by Kerwin Rowan MD for Inpatient bp Admission. Preliminary diagnosis is Fall due to bumping against object; Displaced fracture of base of neck of left femur - impacted. Bed requested for Telemetry/MedSurg (Inpatient). Status is Inpatient Admission. Condition is Stable. Problem is new. Symptoms have improved. ja1
[2019-06-10 11:06] LABS: Urine Blood NEGATIVE (NEG); Urine Glucose NEGATIVE (NEG); Urine Protein NEGATIVE (NEG); Urine pH 6.5 (5.0-7.0)
[2019-06-10 11:44] VITALS: BMI 29.7
[2019-06-10] MEDS ORDERED: ONDANSETRON 4 MG/2 ML VIAL IV PRN (11:55)
[2019-06-10] MEDS ORDERED: MORPHINE 4 MG/ML SYR IV PRN (11:55)
[2019-06-10] MEDS ORDERED: ACETAMINOPHEN 325 MG TABLET PO PRN (11:55)
[2019-06-10] MEDS ORDERED: PNEUMOCOCCAL VACCINE 0.5 ML IMVAC ONE (12:00)
[2019-06-10] MEDS: NA CHLORIDE 0.9% 1,000 ML IV SCH ×2 (12:03→21:55)
[2019-06-10] MEDS ORDERED: GLUCAGON 1 MG/VIAL IM PRN (13:16)
[2019-06-10] MEDS ORDERED: D50W 25 GM/50 ML SYRINGE/VIAL IV PRN (13:16)
[2019-06-10] MEDS ORDERED: GABAPENTIN 300 MG CAP PO PRN (13:29)
[2019-06-10] MEDS: METOPROLOL XL 50 MG TAB PO SCH (13:54)
[2019-06-10] MEDS ORDERED: METOPROLOL TARTRATE 5 MG/5 ML INJ IV STA (14:06)
[2019-06-10] MEDS ORDERED: NA CHLORIDE 0.9% 500 ML IV ONE ×2 (14:44→15:00)
[2019-06-10] MEDS ORDERED: DIGOXIN 0.25 MG/ML AMP ONE (14:49)
[2019-06-10] MEDS ORDERED: NA CHLORIDE 0.9% 500 ML ONE (14:50)
[2019-06-10] MEDS ORDERED: DIGOXIN 0.25 MG/ML AMP IV SCH (15:00)
[2019-06-10] MEDS: INSULIN -REGULAR HUMAN 50 UNIT/0.5 ML ML SQ SCH ×2 (16:30→20:59)
[2019-06-10] MEDS: ENOXAPARIN 100 MG/ML SYR SQ SCH (17:08)
[2019-06-10] MEDS ORDERED: NA CHLORIDE 0.9% 250 ML IV ONE ×2 (19:00→19:01)
[2019-06-10] MEDS: TAMSULOSIN 0.4 MG SR CAP PO SCH (20:57)
[2019-06-10] MEDS: MAGNESIUM OXIDE 400 MG TAB PO SCH (20:58)
[2019-06-10] MEDS: ATORVASTATIN 10 MG TAB PO SCH (20:58)
[2019-06-10] MEDS ORDERED: HOME MED 1 EA UNK (Simvastatin [Simvastatin] 10 MG) PO SCH (21:00)
[2019-06-10] MEDS ORDERED: DIAZEPAM 10 MG/2 ML INJ SYRINGE IV PRN (23:10)
[2019-06-11] MEDS ORDERED: NA CHLORIDE 0.9% 250 ML IV ONE ×2 (00:29→16:52)
[2019-06-11] MEDS: CODEINE 30MG/APAP 300MG TAB PO PRN ×4 (00:42→20:58)
--- NOTE | 2019-06-11 00:45 | HP ---
Date of Admission: 06/10/2019 Chief Complaint: Painful left hip. History Of Present Illness: The patient presented to the emergency room complaining of painful left hip. He stated he fell when he was transferring from a wheelchair to an upright position. The x-ray did reveal an impacted left hip femoral fracture. The patient states he is doing quite well and his rehab is progressing quite well especially over the past couple weeks until this morning's episode. Coincidentally, he had talked to his drawbridge tender in [place] this morning as he did have an episode of, what he felt was, bradycardia. However, this lasted briefly and drawbridge tender felt that he should remain on the medication and call if any further problems. However, this was prior to fall. Past Medical History: As mentioned above, the patient had significant CVA 2 years ago, but recuperat ed in hospital and rehab and has really progressed considerably. This has involved the left side. Adriana andre communicated without any problem. Also has a history of mitral valve repair, atrial fibrillation b asically controlled rate, on anticoagulation. Also has a history of hyperlipidemia. Social History: Nonsmoker, nondrinker. Family History: Noncontributory. Physical Examination: General: Patient is an elderly male. At the time seen in no acute distress as he has had some morphine, which he states relieved his pain. Vital Signs: As mentioned, stable. He has an irregular pulse; however, it too seem stable. Head and Neck: Normocephalic. Eyes: Pupils are equal and reactive to light and accommodation. Fundi negative. Trachea midline. Thyroid not palpable. ENT: Negative. Chest: Clear to P and A. Cardiovascular: PMI midclavicular line. Heart: Heart sounds normal. Peripheral pulses present and equal bilaterally. Abdomen: No organomegaly. Bowel sounds present. Extremities: All extremities are normal except for the left lower leg and upper leg. The patient rasmussen s motion at the ankle and knee. He is tender at the left hip joint the site of the fracture. He als o has some slight defect in movement of the left upper extremity. Right side is normal. Reflexes ph ysiologic. Rectal: Deferred. 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 Plan: Patient will be admitted. Consultation was obtained with Orthopedic surgery. Cardiac clearan ce will also be obtained. HR/MODL Voice ID: [id number]
--- NOTE | 2019-06-11 05:01 | CON ---
Date of Consultation: 06/10/2019 History Of Present Illness: This is my first time seeing this patient to my knowledge. He is a 79-y ear-old male who unfortunately fell this morning injuring his left lower extremity. He was seen and examined in the emergency department, was ruled out for other injuries; however, x-rays of the hip de monstrated a displaced femoral neck fracture on the left. Physical Examination: All his long bones and joints palpated without pain or crepitation with the exception of pain in his left hip with any movement or manipulation. Imaging: Review of x-rays revealed a highly displaced femoral neck fracture on the left. At this time, risks, benefits, and alternatives to the treatment of his hip have been discussed with the patient. He states he understands things as presented, and at this time, we will proceed with le ft bipolar hemiarthroplasty. He has been cleared by Cardiology; however, he is on Eliquis. He is un brando the care of Neurology for previous stroke, also has active AFib. At this time, we will most like ly delay this and remove the Eliquis and place him on anticoagulation per Neurology or primary care p hysician, which is shorter acting, and most likely proceed on Thursday morning. I have asked the patie nt, as he cannot have any family visitors in the hospital, to speak with his family. He felt very co nfident about that. He said that if his family had any questions, that most likely see him tomorrow morning to see how he is doing, and at that time, we will hopefully be able to contact a passenger relations representative of the family by phone. He says he understands th ings as presented otherwise. /JARRET Voice ID: [id number] Report ID: [id number]
[2019-06-11] MEDS: ENOXAPARIN 100 MG/ML SYR SQ SCH ×2 (06:13→17:58)
[2019-06-11 06:26] LABS: Potassium 4.3 mmol/L (3.5-5.1)
[2019-06-11 06:30] LABS: Absolute Lymphocytes (CBC) 0.8 K/uL (0.7-4.9); Basophils % 0.2 % (0-1.3); Hematocrit 36.7 % (39.6-49.0); Lymphocytes % 9.1 % (15.3-44.8); MPV 9.4 fL (7.6-11.3); RBC Red Blood Cell Count 4.02 M/uL (4.33-5.43)
[2019-06-11] MEDS: INSULIN -REGULAR HUMAN 50 UNIT/0.5 ML ML SQ SCH ×4 (07:30→21:00)
[2019-06-11] MEDS: NA CHLORIDE 0.9% 1,000 ML IV SCH ×2 (08:34→16:52)
[2019-06-11] MEDS: MAGNESIUM OXIDE 400 MG TAB PO SCH ×2 (08:35→21:00)
[2019-06-11] MEDS: VALSARTAN 40 MG TAB PO SCH (08:36)
[2019-06-11] MEDS: CITALOPRAM 10 MG TABLET PO SCH (08:36)
[2019-06-11] MEDS: FUROSEMIDE 20 MG TABLET PO SCH (08:37)
[2019-06-11] MEDS: METOPROLOL XL 50 MG TAB PO SCH (08:38)
[2019-06-11] MEDS ORDERED: OLMESARTAN MEDOXOMIL 10 MG PO SCH (09:00)
[2019-06-11] MEDS ORDERED: NA CHLORIDE 0.9% 500 ML IV ONE (14:15)
--- NOTE | 2019-06-11 19:25 | PN ---
Date of Progress Note: 06/11/2019 Subjective: Patient complains of significant discomfort in the left lower inguinal area and left kne e. However, he has been hypotensive for the past 24 hours despite numerous boluses and was holding h is blood pressure medicine. I am not sure the etiology of this, although when he came into the ER, h is blood pressure was normal. However, he was obviously in pain more so than he is now. His urine o utput is good. His creatinine is normal. Clinically, slightly dry and I therefore will bolus him mo re starting with a 500 mL now and depending on the response, may we will use more analgesics and Tyle nol No. 3 later on. He is scheduled for operative repair at 9 a.m. We will repeat the blood work in the morning. Patient seems orientated and in general condition seems good despite his hypotensive r eadings. His cardiac status seems stable, fibrillation with a normal rate. The problem with holding the beta kavita as obviously could go into another episode like as stated. However, he did respond well to the digoxin. So, depending on the blood pressure, we will decide what to do as far as his b lood pressure med and his analgesics. HR/MODL Voice ID: [id number] Report ID: [id number]
[2019-06-11] MEDS: TAMSULOSIN 0.4 MG SR CAP PO SCH (20:57)
[2019-06-11] MEDS: ATORVASTATIN 10 MG TAB PO SCH (20:58)
[2019-06-12] MEDS: NA CHLORIDE 0.9% 1,000 ML IV SCH ×2 (01:40→12:51)
[2019-06-12 07:04] LABS: BUN Blood Urea Nitrogen 18 mg/dL (7-18); Bicarbonate 23 mmol/L (21-32); Glucose Level 126 mg/dL (74-106); Potassium 4.3 mmol/L (3.5-5.1); Sodium Level 141 mmol/L (136-145)
[2019-06-12 07:10] LABS: Basophils % 0.2 % (0-1.3); Hematocrit 35.1 % (39.6-49.0); Lymphocytes % 13.1 % (15.3-44.8); MPV 9.5 fL (7.6-11.3); RBC Red Blood Cell Count 3.87 M/uL (4.33-5.43)
[2019-06-12] MEDS: INSULIN -REGULAR HUMAN 50 UNIT/0.5 ML ML SQ SCH ×4 (07:30→21:00)
[2019-06-12] MEDS ORDERED: FENTANYL CITR 100 MCG/2 ML ONE (08:35)
[2019-06-12] MEDS ORDERED: propofoL 200 MG/20 ML VIAL IV ONE (08:35)
[2019-06-12] MEDS ORDERED: GLYCOPYRROLATE 0.2 MG/ML SYR ONE (08:35)
[2019-06-12] MEDS ORDERED: MIDAZOLAM HCL 2 MG/2 ML INJ ONE (08:35)
[2019-06-12] MEDS ORDERED: ONDANSETRON 4 MG/2 ML VIAL ONE (08:36)
[2019-06-12] MEDS ORDERED: LIDOCAINE 1% MPF 5 ML VIAL ONE (08:37)
[2019-06-12] MEDS ORDERED: dexAMETHasone 4 MG/ML VIAL ONE (08:37)
[2019-06-12] MEDS ORDERED: MORPHINE 10 MG/ML VIAL ONE (08:37)
[2019-06-12] MEDS ORDERED: ROCURONIUM 50 MG/5 ML VIAL IV ONE ×2 (08:37→10:30)
[2019-06-12] MEDS ORDERED: NEOSTIGMINE 1 MG/ML -5 ML ONE (08:37)
[2019-06-12] MEDS ORDERED: KETOROLAC 30 MG/ML INJ ONE (08:38)
[2019-06-12] MEDS ORDERED: Phenylephrine HCl 10 MG/ML 1 ML VIAL ONE (08:38)
[2019-06-12] MEDS: VALSARTAN 40 MG TAB PO SCH (08:52)
[2019-06-12] MEDS: CITALOPRAM 10 MG TABLET PO SCH ×3 (08:52→14:38)
[2019-06-12] MEDS: METOPROLOL XL 50 MG TAB PO SCH ×2 (08:52→13:08)
[2019-06-12] MEDS: MAGNESIUM OXIDE 400 MG TAB PO SCH ×2 (08:52→21:04)
[2019-06-12] MEDS: FUROSEMIDE 20 MG TABLET PO SCH (08:52)
[2019-06-12] MEDS ORDERED: NA CHLORIDE 0.9% 1,000 ML ONE ×2 (08:56→12:05)
[2019-06-12] MEDS ORDERED: CEFAZOLIN/SWI 1gm 2 GM/20 ML SYR ONE (08:56)
[2019-06-12] MEDS ORDERED: TRANEXAMIC ACID 1,000 MG in NA CHLORIDE 0.9% 50 ML IV ONE (09:00)
[2019-06-12] MEDS ORDERED: ALBUMIN HUM 5% 250 ML IV ONE (10:40)
[2019-06-12] MEDS ORDERED: ADENOSINE 6 MG/ 2ML VIAL IV ONE (11:28)
[2019-06-12] MEDS ORDERED: LABETALOL 20 MG/4ML SYRINGE IV ONE (11:30)
[2019-06-12] MEDS: CEFAZOLIN/SWI 1gm 1 GM/10 ML SYR IVP SCH (16:37)
[2019-06-12] MEDS: TAMSULOSIN 0.4 MG SR CAP PO SCH (21:03)
[2019-06-12] MEDS: ATORVASTATIN 10 MG TAB PO SCH (21:03)
[2019-06-12] MEDS: APIXABAN 5 MG TABLET PO SCH (21:03)
--- NOTE | 2019-06-12 21:48 | P.BOP ---
Preoperative diagnosis: left hip femoral neck fracture Postoperative diagnosis: same Primary procedure: left bipolar hemiarthoplasty Estimated blood loss: 100 ccs Anesthesia: General Complications: None Transferred to: Recovery Room Condition: Good
[2019-06-13] MEDS: CEFAZOLIN/SWI 1gm 1 GM/10 ML SYR IVP SCH ×3 (01:43→16:42)
[2019-06-13] MEDS: INSULIN -REGULAR HUMAN 50 UNIT/0.5 ML ML SQ SCH ×4 (07:30→21:00)
[2019-06-13] MEDS: NA CHLORIDE 0.9% 1,000 ML IV SCH ×2 (08:34)
[2019-06-13] MEDS: CITALOPRAM 10 MG TABLET PO SCH (08:35)
[2019-06-13] MEDS: APIXABAN 5 MG TABLET PO SCH ×2 (08:35→20:09)
[2019-06-13] MEDS: VALSARTAN 40 MG TAB PO SCH (08:35)
[2019-06-13] MEDS: METOPROLOL XL 50 MG TAB PO SCH (08:36)
[2019-06-13] MEDS: FUROSEMIDE 20 MG TABLET PO SCH (08:36)
[2019-06-13] MEDS: MAGNESIUM OXIDE 400 MG TAB PO SCH ×2 (08:36→20:09)
[2019-06-13] MEDS ORDERED: APIXABAN 5 MG TABLET PO SCH (09:00)
[2019-06-13] MEDS: CODEINE 30MG/APAP 300MG TAB PO PRN ×2 (10:56→20:09)
--- NOTE | 2019-06-13 13:15 | PN ---
Date of Progress Note: 06/13/2019 Subjective: Patient seems to be doing quite well, first day postop his vital signs are stable. His blood pressure is now in a normal rate. His blood sugar remains within normal limits. His hydration is improved. He can undergo physical therapy, the idea of transferring him to rehab unit. We will continue IV during the day and discontinue it this evening. HR/MODL Voice ID: [id number] Report ID: [id number]
[2019-06-13] MEDS: ATORVASTATIN 10 MG TAB PO SCH (20:09)
[2019-06-13] MEDS: TAMSULOSIN 0.4 MG SR CAP PO SCH (20:09)
[2019-06-14] MEDS: CEFAZOLIN/SWI 1gm 1 GM/10 ML SYR IVP SCH ×2 (00:14→08:46)
[2019-06-14] MEDS: INSULIN -REGULAR HUMAN 50 UNIT/0.5 ML ML SQ SCH ×4 (07:30→21:00)
[2019-06-14] MEDS: APIXABAN 5 MG TABLET PO SCH ×2 (08:44→22:01)
[2019-06-14] MEDS: CITALOPRAM 10 MG TABLET PO SCH (08:44)
[2019-06-14] MEDS: VALSARTAN 40 MG TAB PO SCH (08:44)
[2019-06-14] MEDS: FUROSEMIDE 20 MG TABLET PO SCH (08:45)
[2019-06-14] MEDS: METOPROLOL XL 50 MG TAB PO SCH (08:45)
[2019-06-14] MEDS: MAGNESIUM OXIDE 400 MG TAB PO SCH ×2 (08:45→22:02)
[2019-06-14] MEDS ORDERED: BISACODYL 10 MG RECTAL SUPP PR ONE (15:00)
[2019-06-14] MEDS: CODEINE 30MG/APAP 300MG TAB PO PRN ×2 (15:20→22:01)
--- NOTE | 2019-06-14 18:48 | PN ---
Date of Progress Note: 06/14/2019 Patient seems stable. Blood pressure is normal, back on his usual medication. IV fluids have been d iscontinued. Adequate I and O and problem with a bowel movement. He has Dulcolax suppository if nec essary. Antibiotic was discontinued. Abdomen is soft. Patient awaiting transfer to rehab possibly in a.m. HR/MODL Voice ID: [id number] Report ID: [id number]
[2019-06-14] MEDS: ATORVASTATIN 10 MG TAB PO SCH (22:01)
[2019-06-14] MEDS: TAMSULOSIN 0.4 MG SR CAP PO SCH (22:01)
--- NOTE | 2019-06-15 00:09 | PN ---
Patient had been seen by Dr. Carver for cardiac clearance. Hip surgery was done on 06/12/2019. Post operatively, patient has done very well. The patient is in chronic atrial fibrillation. Heart rate is 69. He is on Eliquis, Lipitor, metoprolol, and valsartan. His blood pressure is well controlled. No cardiac symptoms, no fever, and no evidence of congestive heart failure. Rehab is being conside red. We will continue present regimen. We will sign off the case for now. We will be available for questions if the need arises. MATTIE/JARRET Voice ID: [id number] Report ID: [id number]
[2019-06-15] MEDS: INSULIN -REGULAR HUMAN 50 UNIT/0.5 ML ML SQ SCH ×4 (07:30→20:57)
[2019-06-15] MEDS: METOPROLOL XL 50 MG TAB PO SCH (08:53)
[2019-06-15] MEDS: APIXABAN 5 MG TABLET PO SCH ×2 (08:53→20:55)
[2019-06-15] MEDS: CITALOPRAM 10 MG TABLET PO SCH (08:53)
[2019-06-15] MEDS: FUROSEMIDE 20 MG TABLET PO SCH (08:53)
[2019-06-15] MEDS: VALSARTAN 40 MG TAB PO SCH (08:54)
[2019-06-15] MEDS: MAGNESIUM OXIDE 400 MG TAB PO SCH ×2 (08:54→20:56)
[2019-06-15] MEDS: CODEINE 30MG/APAP 300MG TAB PO PRN ×2 (13:55→20:55)
--- NOTE | 2019-06-15 19:13 | PN ---
Date of Progress Note: 06/15/2019 Patient is basically stable, seen by Cardiology, felt he was on the correct doses for his atrial fibr illation and hypertension, which is borne out by his vital signs. Patient is now sitting up, startin g his transfer, awaiting insurance okay for discharge to rehab unit. HR/MODL Voice ID: [id number] Report ID: [id number]
[2019-06-15 20:15] VITALS: O2SAT 95
[2019-06-15] MEDS: ATORVASTATIN 10 MG TAB PO SCH (20:55)
[2019-06-15] MEDS: TAMSULOSIN 0.4 MG SR CAP PO SCH (20:56)
[2019-06-16] MEDS: CODEINE 30MG/APAP 300MG TAB PO PRN (05:29)
[2019-06-16] MEDS: INSULIN -REGULAR HUMAN 50 UNIT/0.5 ML ML SQ SCH ×2 (07:30→11:17)
[2019-06-16] MEDS: VALSARTAN 40 MG TAB PO SCH (07:59)
[2019-06-16] MEDS: APIXABAN 5 MG TABLET PO SCH (07:59)
[2019-06-16] MEDS: METOPROLOL XL 50 MG TAB PO SCH (08:00)
[2019-06-16] MEDS: MAGNESIUM OXIDE 400 MG TAB PO SCH (08:00)
[2019-06-16] MEDS: FUROSEMIDE 20 MG TABLET PO SCH (08:00)
[2019-06-16] MEDS: CITALOPRAM 10 MG TABLET PO SCH (08:01)
[2019-06-16 12:30] VITALS: BP 129/71; TEMP 98
--- NOTE | 2019-06-16 22:17 | OP ---
Date of Procedure: 06/12/2019 Surgeon: Ole Purdy MD Preoperative Diagnosis: Left proximal femur fracture. Postoperative Diagnosis: Left proximal femur fracture. Procedure: Left hip bipolar hemiarthroplasty using the Biomet cemented fracture stem. Estimated Blood Loss: 100 mL. Complications: No complications. Specimens: No pathology specimens sent other than perhaps the fracture. Indications For Operation: Mr. Corona is a patient who unfortunately fell injuring his left lower ext remity. He has had a previous CVA and was on Eliquis. Therefore, we waited 2 days to help the Eliqu is clear, otherwise covering with anticoagulation for embark upon the surgery. I have discussed with the patient as well as his family risks, benefits, and alternatives. They state they understand thi ngs as presented and wished to proceed. Description Of Procedure: The patient was taken to the operating room and placed in supine position. General anesthesia was easily obtained by the Anesthesia staff. Following this, he was then rolled right side down. His left lower extremity was then prepped and draped in usual sterile fashion for the procedure. Following this, a standard posterolateral incision was taken down carefully through t he skin and soft tissues. Meticulous hemostasis being maintained using Bovie electrocautery. This l benito down to the fascia. The fascia was then divided with a posterior gluteus muscle being split usi ng fingers. The sciatic nerve was palpated and protected and attention was turned to the external ro tators and capsule, which were removed and tagged for later repair. The saw cut was then made at kathleen ropriate length. The neck portions were removed. The head was removed and sized using a ring gauge, is followed by clearing the acetabulum of all soft tissue or debris. Attention was then turned back to the femur. A sample box maker was used for lateralization. Combination of cylindrical reamings as wel l as broaching were then used. It is possible we could have perhaps placed a slightly larger stem, h owever patient is very osteoporotic and has limited mobility. Therefore, decision is made to cement the selected size. Following this, it was then relocated and brought through range of motion. It wa s found to be stable with full adduction, internal rotation to 30 degrees and full flexion. The maría l ball is then placed and the fascia was closed in a watertight fashion followed by closure of the sk in with Vicryl and seymour. The patient was then placed in Aquacel dressing, awakened, and taken to the recovery room in good condition. /JARRET Voice ID: [id number] Report ID: [id number]
== END 2019-06-16 14:20 | DRG 470 ==
LOC: ER 08:07 → ERHOLD 09:48 → 2ND 11:08
PROVIDERS: ADMIT Family Medicine; ATTEND Family Medicine
PROC: 0SRS0J9 Replacement of Left Hip Joint, Femoral Surface with Synthetic Substitute, Cemented, Open Approach (ICD-10-PCS; principal; 2019-06-12 09:00)
DX: S72.042A Displaced fracture of base of neck of left femur, initial encounter for closed fracture (principal); I48.20 Chronic atrial fibrillation, unspecified; I69.354 Hemiplegia and hemiparesis following cerebral infarction affecting left non-dominant side; E78.5 Hyperlipidemia, unspecified; I10 Essential (primary) hypertension; Z87.898 Personal history of other specified conditions; W18.00XA Striking against unspecified object with subsequent fall, initial encounter
CPT/HCPCS: 36415; 71045; 72170; 80048; 80076; 81003; 82947; 83735; 83880; 84484; 85025; 85610; 88305; 88311; 93005; 96361; 96374; 96375; 97110; 97112; 97116; 97161; 97530; 99285; J0153; J0690; J1160; J1650; J2250; J2370; J2405; J2704; J2710; J3010; J3360; J7030; J7040; P9045

== ENCOUNTER 2019-06-15 09:38 | Inpatient (IN) | payer OTHER ==
--- NOTE | 2019-06-16 09:54 | R.PREADM ---
SCREENING DATE AND TIME 06/15/2019 11:45 (CDT) ANTICIPATED REHAB ADMISSION DATE 06/17/2019 REFERRING FACILITY [facility] REFERRAL DATE AND TIME 06/13/2019 10:13 (CDT) REFERRAL ROOM# 206 ACUTE ADMIT DATE 06/10/2019 Previous Rehabilitation(s): Y. 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 Marlow REHAB FACILITY [facility] CLINICAL LIAISON Marah Uribe PHYSICIAN REVIEWER Dr. Abdirahman Zepeda M.D. MR# [id number] [id number] NAME PRICE CORONA ADDRESS [address] [place] [address] PHONE ZIP [address] DATE OF 1940 AGE 79 SSN# [id number] GENDER male MARITAL STATUS RACE white PREF. LANGUAGE (IF NON-LUXEMBOURGISH) Syriac ADMIT FROM 02 - [facility] PRE-HOSPITAL LIVING SETTING 01 - Home (private home/apt. board/care, assisted living, correction, transitional living) HOME TYPE AND DETAILS Type of home: single family house # of steps within the residence: 6 # of levels in the residence: 1 # of steps to enter the residence: 1 Pt. lives alone per pt. He has a Caregiver 01/09. He lives in a 1 inez home w/ sunken living room wi th 6" step to kitchen, bathroom, bedroom w/ grab bars. He claims to be ambulating w/ straight cane. H e claims to be independent when ambulating w/ cane. HIs caregiver helps him shower, prepares food. Pt . claims he performs perineal care independently. He has a chair in his shower. PRE-HOSPITAL LIVING WITH Attendant FAMILY SUPPORT No PRIMARY FAMILY CONTACT NAME Raudel Corona PRIMARY FAMILY CONTACT PHONE PRIMARY FAMILY CONTACT RELATIONSHIP SON IS PRIMARY FAMILY CONTACT AUTH. REP.? no 1ST EMERGENCY CONTACT Raudel Corona 1ST CONTACT PHONE 1ST CONTACT RELATIONSHIP SON IS 1ST CONTACT AUTH. REP.? no PHONE 2ND CONTACT ON ADM.? no PATIENT EMPLOYMENT STATUS Retired (for age) PATIENT EMPLOYER No Employer PAYOR INFORMATION: 1ST PAYOR NAME Emmy Medicare 1ST PAYOR PHONE 1ST PAYOR CONTACT ZAY 1ST PAYOR POLICY ID [id number] INJURY/ILLNESS DUE TO ACCIDENT? Yes ANOTHER LIBERTARIAN RESPONSIBLE? No PRIMARY REHAB/ACUTE DIAGNOSIS: displaced femoral neck fracture on the left ONSET DATE 06/10/2019 REHAB IMPAIRMENT CATEGORY (ODIN): 07 Fracture of LE (FracLE) MEETS 60% rule AFFECTED EXTREMITIES: LLE PRIMARY DIAGNOSIS-RELATED SURGERIES: Emergency Unilateral Hip Fracture - performed by DR DAILEY on 06/12/2019 SUMMARY OF ACUTE HOSPITALIZATION: Pt. is a 79 yo Right-handed white male. On 06/10/2019 he was admitted to [facility] and underwent emergency surgery for displaced femoral neck fracture on the left (Unilateral Hip Fracture) by DR DAILEY. Pre-morbidly, Pt. was independent/mod-I in Transfers Control, Locomotion, and Self-Care; and he had g ood Balance, Safety Awareness, Social Cognition, and Sphincter Control. Currently, he has deficits of Transfers Control, Locomotion, Balance, Safety Awareness, and Self-Care . Pt. is now referred to [facility] for acute in-patient rehabilitation in order to maximize patient's functional independence in activities of daily living, strength, ROM, and mobi lity. Patient has realistic goal of being discharged at assistance level 6-Maria E to reside at Home with Att endant. Patient is a 79 y/o male admitted s/p fall in his bathroom at home. 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 He ambulates w/ straight cane. He has a caregiver that helps him shower and prepare food. In June of 2018 patient suffered a severe stroke that affected the left side of his body which is the side of the fracture. After the fall and surgery, the deficits from the stroke have reappeared. He will need extensive acute inpatient therapy in order to return to his prior level of functioning. PAST MEDICAL HISTORY CVA affecting Left side of body - June 2018 AFIB HLD Chronic Anticoagulation PAST SURGICAL HISTORY: mitral valve repair MEDICATION ALLERGIES: No Known Drug Allergies (NKDA) ENVIRONMENTAL ALLERGIES: - Substance Allergies None Known - Other Allergies honey bee venom CODE STATUS: Full code WEIGHT/HEIGHT/BMI: WEIGHT 190 lbs HEIGHT 5' 7" BMI 29.8 DIET: - Diet Type Regular - Diet - Solid Texture Regular - Diet - Liquid Texture Regular - Tube Feed N/A SKIN DIAGRAM: Incision on Left hip; extent - ; stage - . Treatment - Per Physician's Orders. REVIEW OF SYSTEMS: - Gen Alert and awake Lying in bed No apparent distress Oriented to: person, time, and place - Vital Signs Vital signs stable, afebrile - CVS RRR VITAL SIGNS Temperature: 98.2 F SBP/DBP: 134/82 Pulse: 75 Resp: 18 Vital signs stable, afebrile MEDICATIONS/TREATMENT: Other- See attached MAR (Medication Administration Record). CURRENT SPHINCTER CONTROL: Last Bowel Movement Date: 06/15/2019 DETAILED CURRENT FUNCTIONAL STATUS: - Walking score based on distance walked: 0(N/A) QI SCORES: - Self-Care A. Eating 04-Supervision or touching assistance B. Oral hygiene 04-Supervision or touching assistance C. Toileting hygiene 02-Substantial/maximal assistance E. Shower/bathe self 01-Dependent F. Upper body dressing 02-Substantial/maximal assistance G. Lower body dressing 10-Not attempted due to environmental limitations H. Putting on/taking off footwear 88-Not attempted due to medical condition or safety concerns - Mobility A. Roll left and right 02-Substantial/maximal assistance B. Sit to lying 02-Substantial/maximal assistance C. Lying to sitting on side of bed 02-Substantial/maximal assistance D. Sit to stand 02-Substantial/maximal assistance E. Chair/gli-th-rlthm transfer 01-Dependent F. Toilet transfer 01-Dependent G. Car transfer 88-Not attempted due to medical condition or safety concerns I. Walk 10 feet 88-Not attempted due to medical condition or safety concerns J. Walk 50 feet with two turns 88-Not attempted due to medical condition or safety concerns K. Walk 150 feet 88-Not attempted due to medical condition or safety concerns L. Walking 10 feet on uneven surfaces 88-Not attempted due to medical condition or safety concerns M. 1 step (curb) 88-Not attempted due to medical condition or safety concerns N. 4 steps 88-Not attempted due to medical condition or safety concerns O. 12 steps 88-Not attempted due to medical condition or safety concerns P. Picking up object 88-Not attempted due to medical condition or safety concerns R. Wheel 50 feet with two turns S. Wheel 150 feet - Bladder and Bowel Bladder continence 0-Always continent Bowel continence 0-Always continent - Endurance Poor - Balance Poor - Safety Awareness Poor CURRENT FUNC. DEFICITS: Self-Care, Mobility, Endurance, Balance, and Safety Awareness CURRENT / PREVIOUS ASSISTIVE DEVICES: 3-in-1 Commode Rolling Walker Shower Chair Wheelchair HISTORY OF FALLS. HAS THE PATIENT HAD TWO OR MORE FALLS IN THE PAST YEAR OR ANY FALL WITH INJURY IN T HE PAST YEAR?: Yes PRIOR SURGERY. DID THE PATIENT HAVE MAJOR SURGERY DURING THE 100 DAYS PRIOR TO ADMISSION?: No THERAPY NOTES FROM ACUTE CARE: Attached. SPECIAL NEEDS: - Safety Concerns Skin breakdown precautions needed due to skin breakdown risk PRECAUTIONS: - Weight Bearing Precaution WBAT left LE PATIENT NEEDS ACTIVE AND ONGOING THERAPEUTIC INTERVENTION OF MULTIPLE THERAPY DISCIPLINES, INCLUDING: - Dietary and Nutrition Adequate Nutrition. Nutritional Education. Nutritional Supplements. PATIENT NEEDS CLOSE MEDICAL SUPERVISION BY A REHABILITATION PHYSICIAN FOR: Coordination of Treatment Team Post-Op Complications Wound Care PATIENT REQUIRES 24X7 REHAB NURSING FOR MEDICAL AND FUNCTIONAL MGT. OF THE FOLLOWING DEFICITS: Disease Management Medication Management Patient/Family Education Providing Safe Environment Skin Integrity PATIENT REQUIRES INTENSIVE, COORDINATED INTERDISCIPLINARY APPROACH TO REHAB: Arranging Home Equipment/Services Discharge Planning Family Intervention/Training Nurses' Association Counselor/Case Management PATIENT REHAB POTENTIAL: Nelida CORONA is able and expected to receive 3 hours of individualized therapy daily on at least 5 of jeffrey ry 7 days Nelida Brown prognosis for significant practical improvement within a reasonable period of time appears Good Expected level of measurable improvement will be of a practical value to Nelida MONSONs functional capaci ty or adaptations to impairments Has a viable Discharge Plan Medically appropriate; condition is sufficiently stable to participate in intensive rehab program DISCHARGE PLAN: - Consensus on plan Discharge plan has been discussed with primary caregiver. Patient/Family is in agreement with the denis n. Primary caregiver is in agreement with the plan. - Patient/Family Goals Return home with assistance. - Planned Living Setting Upon Discharge Home, to live with Attendant. RECOMMENDED CARE LEVEL: IRF RECOMMENDATION DETAILS: Recommended Admission to Comprehensive Rehabilitation Program to Increase Functional [place] SCREENER'S COMPLETENESS CONFIRMATION: - Screening Confirmation The patient data collection on this preadmission screening form is finished PHYSICIANS REVIEW AND ADMISSION DETERMINATION Admit - Based on my review of the Pre-Admission Screening results, in my medical judgment and experie nce, I concur with the findings and recommend admission to [facility], as this patient requires an IRF level of care. SIGNATURE PANEL: Clinical Liaison - [electronically] signed by Brianna Burch, Glass Bead Maker on 06/16/2019 at 09:26 (C DT) Clinical Liaison - [electronically] signed by Sharron Acuña RN on 06/16/2019 at 09:32 (CDT) Physician Reviewer - [electronically] signed by Dr. Abdirahman Zepeda M.D. on 06/16/2019 at 09:53 (CDT )
--- OUTSIDE RECORDS SUMMARY | 2019-06-16 14:30 | XMS REPORT ---
:1940 Author Organization [facility] Address [address] [place] [address] Dr. Felix [address] [place] [address] Care Team Providers Name Role Phone Unavailable [...] with a 00:00: meal 00 Crestor Crestor 2017- Yes Blu 1 tablet 09-08 Gray 00:00: 00 Encounters Start End Encounter Admission Attending Care Care Encounter Date/Time Date/Time Type Type Clinicians Facility Department ID 2017-10-20 2017-10-20 Outpatient [facility] 1 [id number] 08:30:00 08:30:00 [facility] 2017-09-08 2017-09-08 [place] [facility] [id number] 08:30:00 08:30:00 [facility]
--- OUTSIDE RECORDS SUMMARY | 2019-06-16 14:30 | XMS REPORT ---
[...] End Status Dosage System Date Date Crestor [facility] 90780732936 10 MG Orally September 08, Active 1 tabl et Once a day 2017 Xanax [facility] 40348362885 0.5 MG Orally September 08, Active 1 tab let Twice a day 2017 Metformin HCl [facility] 59480782249 500 MG Orally September 08, Active 1 tablet Once a day 2018 with a meal Benicar [facility] 22509903811 20 MG Orally September 08, Active 1 tabl et Once a day 2018 Flecainide ND 12498256679 50 MG Orally September 08, Active as directed Acetate 2018 Xarelto [facility] 53794803155 10 MG Orally September 08, Active 1 tabl et Once a day 2018 with food Results No Known Results Summary Purpose eClinicalWorks Submission
--- OUTSIDE RECORDS SUMMARY | 2019-06-16 14:30 | XMS REPORT | Clinical Summary ---
:1940 Author Organization [facility] Address [address] [place] [address] Care Team Providers Name Role Phone MD Kashmir Primary Care Provider Allergies Not on File Medications Not on file Active Problems Not on file Encounters Date Type Specialty Care Team Description 11/24/2018 Hospital Encounter Radiology Stan Rodriguez cerebrovascular MD [place] accident ([facility]) 11/10/2018 Transcribe Orders Access Stan Rodriguez cerebrovascular MD [place] accident ([facility]) (Primary Dx) after 06/15/2018 Social History Tobacco Use Types Packs/Day Years Used Date Never Assessed Sex Assigned at Date Recorded Not on file Job Start Date Occupation Industry Not on file Not on file Not on file Travel History Travel Start Travel End No recent travel history available. Last Filed Vital Signs Not on file Plan of Treatment Health Maintenance Due Date Last Done Comments SHINGLES VACCINES (#1) 1992 65+ PNEUMOCOCCAL VACCINE (1 of 2 - PCV13) 05/14/2007 INFLUENZA VACCINE 09/10/2019 Procedures Procedure Name Priority Date/Time Associated Diagnosis Comme nts CT HEAD WO Routine 11/24/2018 4:04 Impending Results for this CONTRAST PM CDT cerebrovascular procedure ar e in accident ([facility]) the results section. after 06/15/[address] Head Wo Contrast (11/24/2018 4:04 PM CDT) Specimen Narrative Performed At EXAMINATION: CT HEAD WO CONTRAST HM [facility] CLINICAL HISTORY: I63.9 Cerebral infar ction unspecified, i63.9 COMPARISON: None. TECHNIQUE: Noncontrast head CT performed using radiati on dose reduction techniques. Technical factors are evaluated and adju sted to ensure appropriate moderation of exposure. Automated dose m anagement technology is applied to adjust radiatio n exposure while achieving a diagnostic quality tricia ge. FINDINGS: No evidence of acute intracranial hemorrhage, mass, ma ss effect, midline shift, or acute infarct. Sequela of large right MCA territory ischemic injury c haracterized by contents of encephalomalacia and gliosis. Mild ex vacu o dilatation of the adjacent right lateral ventricle. Evidence of wall erian degeneration. Mild arteriosclerosis of t he cavernous and paraclinoid right internal carotid a rtery. Orbits are normal in appearance. No significant sinus inflammatory changes. Mastoid air cells are clear. Periapical dajuan encies involving the right maxillary molar and premolar as well as the left maxillary canine. IMPRESSION: 1. No CT evidence of acute intracranial abnormality. 2. 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 [id number] Procedure Note Hm Interface, Radiology Results Incoming - 11/24/2018 4:16 PM CDT EXAMINATION: CT HEAD WO CONTRAST CLINICAL HISTORY: I63.9 Cerebral infarc tion unspecified, i63.9 COMPARISON: None. TECHNIQUE: Noncontrast head CT performed using radiation dose reduction techniques. Technical factors are evaluated and adjusted to ensure appropriate moderation of exposure. Automated dose management technology is applied to adjust radiation exposure while achieving a diagnostic quality tricia ge. FINDINGS: No evidence of acute intracranial hemorr joy, mass, mass effect, midline shift, or acute infarct. Sequela of large right MCA territory isc hemic injury characterized by contents of encephalomalacia and gliosis. Mild ex vacuo dilatation of the adjacent right lateral ventricle. Evidence of wallerian degeneration. Mild arteriosclerosis of the cavernous and paraclinoid right internal carotid a rtery. Orbits are normal in appearance. No sign ificant sinus inflammatory changes. Mastoid air cells are clear. Periapical lucencies involving the right maxillary molar and premolar as well as the left maxillary canine. IMPRESSION: 1. No CT evidence of acute intracranial abnormality. 2. 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
--- OUTSIDE RECORDS SUMMARY | 2019-06-16 14:30 | XMS REPORT ---
[...] End Status Dosage System Date Date Flecainide [facility] 48601298319 50 MG Orally September 08, Active as directed Acetate 2017 Benicar [facility] 56213880899 20 MG Orally September 08, Active 1 tabl et Once a day 2017 Xanax [facility] 19595391365 0.5 MG Orally September 08, Active 1 tab let Twice a day 2017 Xarelto [facility] 82027180566 10 MG Orally September 08, Active 1 tabl et Once a day 2018 with food Metformin HCl [facility] 23424560401 500 MG Orally September 08, Active 1 tablet Once a day 2017 with a meal Crestor [facility] 11198980547 10 MG Orally September 08, Active 1 tabl et Once a day 2018 Results No Known Results Summary Purpose eClinicalWorks Submission
--- OUTSIDE RECORDS SUMMARY | 2019-06-16 14:30 | XMS REPORT | Clinical Summary ---
:1940 Author Organization [facility] Address [address] [place] [address] Care Team Providers Name Role Phone MD Kashmir Primary Care Provider Allergies No Known Allergies [...] Use Drinks/Week oz/Week Comments Yes couple of glasse s of wine daily Sex Assigned at Date Recorded Not on file Job Start Date Occupation Industry Not on file Not on file Not on file Travel History Travel Start Travel End No recent travel history available. Last Filed Vital Signs Not on file Plan of Treatment Health Maintenance Due Date Last Done Comments PNEUMOCOCCAL 65+ LOW/MEDIUM RISK (1 of 2 - PCV13) 05/14/2007 MEDICARE ANNUAL WELLNESS (YEAR 2 or FIRST YEAR if no 02/10/2017 IPPE) INFLUENZA VACCINE (#1) 2018 Results Not on fileafter 06/15/2018 Insurance Payer Benefit Plan / Subscriber ID Type Phone Address Group [employer] - MEDICARE A[employer] MEDICARE HMO xxxxxxxx [address] [place] [address] Guarantor Name Account Type Relation to Date of Phone Billing Patient Address Leonidas Corona Personal/Family Self 1940 [phone] (Home) [place] [address]
[2019-06-16] MEDS ORDERED: GABAPENTIN 300 MG CAP PO PRN (14:57)
[2019-06-16] MEDS ORDERED: TETRAHYDROZOLINE HCL 15 ML BTL OPTH PRN (15:27)
[2019-06-16] MEDS: ACETAMINOPHEN 500 MG TAB PO PRN ×2 (16:44→21:22)
[2019-06-16 17:52] LABS: Urine Appearance CLOUDY; Urine Bilirubin NEGATIVE (NEG); Urine Blood NEGATIVE (NEG); Urine Color YELLOW; Urine Glucose NEGATIVE (NEG); Urine Protein NEGATIVE (NEG)
[2019-06-16 18:04] LABS: Urine Bacteria <20 /HPF (NONE SEEN); Urine RBC NONE SEEN /HPF (NONE SEEN)
[2019-06-16 18:05] LABS: Urine Amorphous Sediment 3+ /HPF (NONE SEEN); Urine Culture Reflex Order NOT NEEDED; Urine Mucus 2+ /HPF (NONE SEEN)
[2019-06-16] MEDS: TRAMADOL HCL 50 MG TAB PO PRN (18:56)
[2019-06-16] MEDS: TAMSULOSIN 0.4 MG SR CAP PO SCH (20:18)
[2019-06-16] MEDS: MAGNESIUM OXIDE 400 MG TAB PO SCH (20:18)
[2019-06-16] MEDS: DOCUSATE NA/SENNA CONC 1 TAB PO PRN (20:18)
[2019-06-16] MEDS: ATORVASTATIN 10 MG TAB PO SCH (20:18)
[2019-06-17] MEDS: METOPROLOL XL 50 MG TAB PO SCH (05:19)
[2019-06-17 06:34] LABS: Absolute Lymphocytes (CBC) 1.3 K/uL (0.7-4.9); Basophils % 0.7 % (0-1.3); Hematocrit 29.5 % (39.6-49.0); Lymphocytes % 18.3 % (15.3-44.8); MPV 8.5 fL (7.6-11.3); RBC Red Blood Cell Count 3.27 M/uL (4.33-5.43)
[2019-06-17] MEDS: TRAMADOL HCL 50 MG TAB PO PRN ×2 (06:34→20:21)
[2019-06-17 07:10] LABS: Albumin 2.3 g/dL (3.4-5.0); BUN Blood Urea Nitrogen 17 mg/dL (7-18); Bicarbonate 28 mmol/L (21-32); Glucose Level 98 mg/dL (74-106); Magnesium 1.9 mg/dL (1.8-2.4); Potassium 3.4 mmol/L (3.5-5.1); Prealbumin 10.7 mg/dL (20-40); Sodium Level 141 mmol/L (136-145)
[2019-06-17] MEDS: MAGNESIUM OXIDE 400 MG TAB PO SCH ×2 (08:00→20:18)
[2019-06-17] MEDS: ACETAMINOPHEN 500 MG TAB PO PRN (09:05)
[2019-06-17] MEDS: CITALOPRAM 10 MG TABLET PO SCH (09:05)
[2019-06-17] MEDS: FUROSEMIDE 20 MG TABLET PO SCH (09:06)
[2019-06-17] MEDS: APIXABAN 5 MG TABLET PO SCH (09:06)
[2019-06-17] MEDS: VALSARTAN 40 MG TAB PO SCH (09:07)
[2019-06-17] MEDS: METFORMIN HCL 500 MG TAB PO SCH (09:07)
--- NOTE | 2019-06-17 09:56 | P.RH.PN ---
Estimated Length of Stay: 14 Expected Discharge Date: 06/30/19 Discharge Disposition Plan: Home Family Support: Yes Residential Goal: Mobility, Transfers, Self Care Vital Signs: Last Vital Signs Temp 98.3 F 06/17/19 07:06 Pulse 70 06/17/19 09:07 Resp 16 06/17/19 07:34 BP 137/80 06/17/19 09:07 Pulse Ox 96 06/17/19 07:34 Laboratory: Laboratory Last Values WBC 7.3 K/uL (4.3-10.9) 06/17/19 06:15 RBC 3.27 M/uL (4.33-5.43) L 06/17/19 06:15 Hgb 9.8 g/dL (13.6-17.9) L 06/17/19 06:15 Hct 29.5 % (39.6-49.0) L D 06/17/19 06:15 MCV 90.2 fL (80-100) 06/17/19 06:15 MCH 30.0 pg (27.0-35.0) 06/17/19 06:15 MCHC 33.3 g/dL (32.0-36.0) 06/17/19 06:15 RDW 15.4 % (12.1-15.2) H 06/17/19 06:15 Plt Count 217 K/uL (152-406) D 06/17/19 06:15 MPV 8.5 fL (7.6-11.3) D 06/17/19 06:15 Neutrophils % 66.5 % (41.7-73.7) 06/17/19 06:15 Lymphocytes % 18.3 % (15.3-44.8) 06/17/19 06:15 Monocytes % 8.6 % (3.3-12.3) 06/17/19 06:15 Eosinophils % 5.9 % (0-4.4) H 06/17/19 06:15 Basophils % 0.7 % (0-1.3) 06/17/19 06:15 Absolute Neutrophils 4.8 K/uL (1.8-8.0) 06/17/19 06:15 Absolute Lymphocytes 1.3 K/uL (0.7-4.9) 06/17/19 06:15 Absolute Monocytes 0.6 K/uL (0.1-1.3) 06/17/19 06:15 Absolute Eosinophils 0.4 K/uL (0-0.5) 06/17/19 06:15 Absolute Basophils 0.0 K/uL (0-0.5) 06/17/19 06:15 Sodium 141 mmol/L (136-145) 06/17/19 06:15 Potassium 3.4 mmol/L (3.5-5.1) L 06/17/19 06:15 Chloride 107 mmol/L (98-107) 06/17/19 06:15 Carbon Dioxide 28 mmol/L (21-32) 06/17/19 06:15 BUN 17 mg/dL (7-18) 06/17/19 06:15 Creatinine 0.57 mg/dL (0.55-1.3) 06/17/19 06:15 Estimated GFR > 90 mL/min (=/>90) 06/17/19 06:15 Glucose 98 mg/dL (74-106) 06/17/19 06:15 POC Glucose 103 mg/dl (65-120) 06/17/19 08:18 Calcium 7.9 mg/dL (8.5-10.1) L 06/17/19 06:15 Magnesium 1.9 mg/dL (1.8-2.4) 06/17/19 06:15 Albumin 2.3 g/dL (3.4-5.0) L D 06/17/19 06:15 Prealbumin 10.7 mg/dL (20-40) L 06/17/19 06:15 Urine Color Yellow 06/16/19 17:35 Urine Appearance Cloudy 06/16/19 17:35 Urine pH 7.0 (5.0-7.0) 06/16/19 17:35 Ur Specific Felt 1.020 (1.005-1.030) 06/16/19 17:35 Glucose (UA)(Auto) Negative (NEG) 06/16/19 17:35 Urine Ketones Negative (NEG) 06/16/19 17:35 Urine Blood Negative (NEG) 06/16/19 17:35 Urine Nitrite Negative (NEG) 06/16/19 17:35 Urine Bilirubin Negative (NEG) 06/16/19 17:35 Urine Urobilinogen 1.0 mg/dL (0.2-1.0) 06/16/19 17:35 Ur Leukocyte Esterase Negative (NEG) 06/16/19 17:35 Urine RBC None seen /HPF (NONE SEEN) 06/16/19 17:35 Urine WBC <5 /HPF (<5) 06/16/19 17:35 Ur Squamous Epith Cells <5 /HPF (NONE SEEN) 06/16/19 17:35 Amorphous Sediment 3+ /HPF (NONE SEEN) H 06/16/19 17:35 Urine Bacteria <20 /HPF (NONE SEEN) 06/16/19 17:35 Urine Mucus 2+ /HPF (NONE SEEN) 06/16/19 17:35 Urine Culture Reflexed Not needed 06/16/19 17:35 Urine Total Protein Negative (NEG) 06/16/19 17:35 Wound Present: No Negative Pressure Wound Therapy Present: No Physician Update: His labs reviewed and are stable. He walked 3' with maximum assistance. He was able stand with max assistance. He has significant pain in the left hip and is only on Tylenol and Tramadol. Will add [place] 5/325 q 4 hours as needed. Summary: Patient's care plan and buttermaker helper goals have been reviewed and revised as necessary. Please see the Rehabilitation Signature page for all necessary signatures.
--- NOTE | 2019-06-17 14:04 | R.HP ---
FACILITY: [facility] ENCOUNTER DATE AND TIME: 06/17/2019 13:55 (CDT) MR#: [id number] NAME PRICE ROGERS ADDRESS: [address] [place] [address] CITY: [place]IP [id number] PHONE: DATE OF : 1940 AGE: 79 SSN# [id number] GENDER: Male DEXTERITY Right-handed MARITAL STATUS RACE White PRE-HOSPITAL LIVING SETTING 01 - Home (private home/apt. board/care, assisted living, correction, transitional living) PRE-HOSPITAL LIVING WITH Attendant ENCOUNTER PHYSICIAN: Dr. Abdirahman Zepeda M.D. REFERRING DOCTOR: Dr. Marlow DATE OF ADMISSION: 06/16/2019 09:16 (CDT) REFERRING FACILITY [facility] HOME TYPE AND DETAILS: Type of home: single family house # of steps within the residence: 6 # of levels in the residence: 1 # of steps to enter the residence: 1 Pt. lives alone per pt. He has a Caregiver 01/09. He lives in a 1 inez home w/ sunken living room wi th 6" step to kitchen, bathroom, bedroom w/ grab bars. He claims to be ambulating w/ straight cane. H e claims to be independent when ambulating w/ cane. HIs caregiver helps him shower, prepares food. Pt . claims he performs perineal care independently. He has a chair in his shower. ONSET DATE: 06/10/2019 PRIMARY DIAGNOSIS-RELATED SURGERIES: Emergency Unilateral Hip Fracture - performed by DR DAILEY on 06/12/2019 HISTORY OF PRESENT ILLNESS (HPI): Pt. is a 79 yo Right-handed white male. On 06/10/2019 he was admitted to [facility] and underwent emergency surgery for displaced femoral neck fracture on the left (Unilateral Hip Fracture) by DR DAILEY. Pre-morbidly, Pt. was independent/mod-I in Transfers Control, Locomotion, and Self-Care; and he had g ood Balance, Safety Awareness, Social Cognition, and Sphincter Control. Currently, he has deficits of Transfers Control, Locomotion, Balance, Safety Awareness, and Self-Care . Pt. is now referred to [facility] for acute in-patient rehabilitation in order to maximize patient's functional independence in activities of daily living, strength, ROM, and mobi lity. Patient has realistic goal of being discharged at assistance level 6-Maria E to reside at Home with Att endant. Patient is a 79 y/o male admitted s/p fall in his bathroom at home. 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 He ambulates w/ straight cane. He has a caregiver that helps him shower and prepare food. In June of 2018 patient suffered a severe stroke that affected the left side of his body which is the side of the fracture. After the fall and surgery, the deficits from the stroke have reappeared. He will need extensive acute inpatient therapy in order to return to his prior level of functioning. MEDICATION ALLERGIES: No Known Drug Allergies (NKDA) ENVIRONMENTAL ALLERGIES: - Substance Allergies None Known - Other Allergies honey bee venom PAST MEDICAL HISTORY: CVA affecting Left side of body - June 2018 AFIB HLD Chronic Anticoagulation PAST SURGICAL HISTORY: mitral valve repair FAMILY HISTORY: Family history is not contributory. REVIEW OF SYSTEMS: - Gen No Chills Fatigue No Fever - Eyes No Double Vision No itchiness - ENMT No Difficulty Swallowing - CVS No Chest Discomfort No Chest Pain Fatigue No Weight Gain - Resp No Cough No Shortness of Breath - GI Continent No Abdominal Pain No Constipation No Diarrhea - Continent No Kidney Pain No Painful Urination No Urinary Urgency - MSK No Joint Pain Muscle Cramps Stiffness - Skin No Itching No Rash No Suspicious Lesions - Neuro Coordination Difficulty Difficulty with Concentration No Memory Loss No Seizures Weakness - Psych Anxiety No Depression No HIV Exposure No Persistent Infections No Seasonal Allergies - Endo No Cold/Heat Intolerance No Excessive Hunger No Excessive Thirst No Excessive Urination PHYSICAL EXAM - Gen Alert and awake Lying in bed No apparent distress Oriented to: person, time, and place - Skin No skin breakdown. Normacephalic - Eyes No abnormalities - ENMT No abnormalities - Neck No abnormalities - CVS RRR - Chest No abnormalities - Abd Soft - GI Non distended Deferred - No abnormalities - Ext No significant edema - MSK 1-2+/5 weakness in left upper and lower extremity. - Neuro 1-2+/5 weakness in left upper and lower extremity. - Psych Mild anxiety. VITAL SIGNS Temperature: 98.2 F SBP/DBP: 134/82 Pulse: 75 Resp: 18 NURSING: - Shower allowing shower - Skin care per protocol PRECAUTIONS: - Weight Bearing Precaution WBAT left LE ACTIVITIES OOB only with supervision QI SCORES: - Self-Care A. Eating 04-Supervision or touching assistance B. Oral hygiene 04-Supervision or touching assistance C. Toileting hygiene 02-Substantial/maximal assistance E. Shower/bathe self 01-Dependent F. Upper body dressing 02-Substantial/maximal assistance G. Lower body dressing 10-Not attempted due to environmental limitations H. Putting on/taking off footwear 88-Not attempted due to medical condition or safety concerns - Mobility A. Roll left and right 02-Substantial/maximal assistance B. Sit to lying 02-Substantial/maximal assistance C. Lying to sitting on side of bed 02-Substantial/maximal assistance D. Sit to stand 02-Substantial/maximal assistance E. Chair/wdd-co-uhvup transfer 01-Dependent F. Toilet transfer 01-Dependent G. Car transfer 88-Not attempted due to medical condition or safety concerns I. Walk 10 feet 88-Not attempted due to medical condition or safety concerns J. Walk 50 feet with two turns 88-Not attempted due to medical condition or safety concerns K. Walk 150 feet 88-Not attempted due to medical condition or safety concerns L. Walking 10 feet on uneven surfaces 88-Not attempted due to medical condition or safety concerns M. 1 step (curb) 88-Not attempted due to medical condition or safety concerns N. 4 steps 88-Not attempted due to medical condition or safety concerns O. 12 steps 88-Not attempted due to medical condition or safety concerns P. Picking up object 88-Not attempted due to medical condition or safety concerns R. Wheel 50 feet with two turns S. Wheel 150 feet - Bladder and Bowel Bladder continence 0-Always continent Bowel continence 0-Always continent - Endurance Poor - Balance Poor - Safety Awareness Poor CURRENT FUNC. DEFICITS: Self-Care, Mobility, Endurance, Balance, and Safety Awareness MEDICATIONS: - Other See attached MAR (Medication Administration Record) ASSESSMENT: Pt. is a 79 yo Right-handed white male.On 06/10/2019 he was admitted to [facility] and under went emergency surgery for displaced femoral neck fracture on the left (Unilateral Hip Fracture) by DR DAILEY.Pre-morbidly, Pt. was ind ependent/mod-I in Transfers Control, Locomotion, and Self-Care; and he had good Balance, Safety Aware ness, Social Cognition, and Sphincter Control.Currently, he has deficits of Transfers Control, Locomo tion, Balance, Safety Awareness, and Self-Care.Pt. is now referred to [facility] for acute in-patient rehabilitation in order to maximize patient's functional independence in acti vities of daily living, strength, ROM, and mobility.- Rehab Goal Patient has realistic goal of being discharged at assistance level 6-Maria E to reside at Home with Att endant. Patient is a 79 y/o male admitted s/p fall in his bathroom at home. 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 He ambulates w/ straight cane. He has a caregiver that helps him shower and prepare food. In June of 2018 patient suffered a severe stroke that affected the left side of his body which is the side of the fracture. After the fall and surgery, the deficits from the stroke have reappeared. He will need extensive acute inpatient therapy in order to return to his prior level of functioning.REHAB PLAN: - Physical Therapy Decreased range of motion - to improve, our physical therapists will perform initial evaluation of pt 's status upon admission and devise an individualized program for increasing patient's Range of Motio n. Gait dysfunction - to improve, our physical therapists will perform initial evaluation of pt's status upon admission and devise an individualized program for Gait Training, and Wheel Chair mobility Inability to transfer - to improve, our physical therapists will perform initial evaluation of pt's s tatus upon admission and devise an individualized program for Bed mobility Need for home safety evaluation - to improve, our physical therapists will perform initial evaluation of pt's status upon admission and devise an individualized program for Home Evaluation Need in caregiver upon discharge - to improve, our physical therapists will perform initial evaluatio n of pt's status upon admission and devise an individualized program for Caregiver Training Edema - to improve, our physical therapists will perform initial evaluation of pt's status upon admi ssion and devise an individualized program for Elevation Training, and Lymphedema Therapy New precaution - to improve, our physical therapists will perform initial evaluation of pt's status u uriel admission and devise an individualized program for Patient precaution education Poor balance - to improve, our physical therapists will perform initial evaluation of pt's status upo n admission and devise an individualized program for Balance Training Weakness - to improve, our physical therapists will perform initial evaluation of pt's status upon ad mission and devise an individualized program for Aquatic Therapy, Neuromuscular Reeducation, and Stre ngthening Achieving independence - to improve, our physical therapists will perform initial evaluation of pt's status upon admission and devise an individualized program for Community Reintegration Activities - Occupational Therapy ADL deficits - to improve, our occupation therapists will perform initial evaluation of pt's status u uriel admission and devise an individualized program for Bathing, Bed mobility, Community Reintegration , Cooking, Dressing, Eating, Fine Motor Skills, Grooming, Homemaking, Kitchen Mobility, Laundry, Mey ent Education, Safety Awareness, Splinting - Positioning, Transfers(Toilet, Tub, Shower), and Wheel C hair Management Need for care process manager - to improve, our occupation therapists will perform initial evaluation of pt's s tatus upon admission and devise an individualized program for Caregiver Training Weakness - to improve, our occupation therapists will perform initial evaluation of pt's status upon admission and devise an individualized program for Aquatic Therapy, Balance, Endurance, UE ROM, and U E strengthening MEDICAL PLAN: - Anterior Hip Precaution No abduction No active extension No adduction across midline No external rotation No hip flexion >90 degrees No internal rotation - Diet - Liquid Texture Start Regular - Tube Feed Start N/A - Diet Type Start Regular - Posterior Hip Precaution No adduction across midline No external rotation No hip flexion >90 degrees No internal rotation No wheel chair propulsion - Weight Bearing Precaution WBAT left LE - Skin care per protocol - Other See attached MAR (Medication Administration Record) - Diet - Solid Texture Regular - Shower shower DISCHARGE PLAN: - Consensus on plan Discharge plan has been discussed with primary caregiver. Patient/Family is in agreement with the denis n. Primary caregiver is in agreement with the plan. - Patient/Family Goals Return home with assistance. - Planned Living Setting Upon Discharge Home, to live with Attendant. SIGNATURE PANEL: (CDT)
--- NOTE | 2019-06-17 14:06 | PAPE ---
PATIENT: [facility] MR# [id number] REFERRING DOCTOR Dr. Marlow EVALUATION DATE AND TIME 06/17/2019 14:05 (CDT) NAME PRICE ROGERS DATE OF 1940 AGE 79 PHONE SSN# [id number] GENDER male EVALUATING PHYSICIAN Dr. Abdirahman Zepeda M.D. ADMISSION DIAGNOSIS: displaced femoral neck fracture on the left ONSET DATE 06/10/2019 POST-ADMISSION FUNCTIONAL/MEDICAL STATUS: - Walking Same score based on distance walked: 0(N/A) - Wheelchair Same STATUS CHANGE EVALUATION: No change in Functional or Medical Status is identified compared with Pre-Admission screening. PATIENT NEEDS CLOSE MEDICAL SUPERVISION BY A REHABILITATION PHYSICIAN FOR: Coordination of Treatment Team Post-Op Complications Wound Care PATIENT REQUIRES 24X7 REHAB NURSING FOR MEDICAL AND FUNCTIONAL MGT. OF THE FOLLOWING DEFICITS: Disease Management Medication Management Patient/Family Education Providing Safe Environment Skin Integrity PATIENT REQUIRES INTENSIVE, COORDINATED INTERDISCIPLINARY APPROACH TO REHAB: Arranging Home Equipment/Services Discharge Planning Family Intervention/Training Outreach Coordinator/Case Management LIST OF IDENTIFIED AND POTENTIAL PROBLEMS: Alteration in leisure activities Infection, Actual or Potential Mobility Impaired Pain, Alteration in Comfort Self Care Deficit Skin Integrity, Actual or Potential Urinary Tract Infection (UTI), Actual or Potential PATIENT COULD BE AT RISK FOR COMPLICATIONS FROM ADVERSE MEDICAL CONDITIONS DUE TO HIS/HER COMORBIDITI ES AND THE RIGORS OF THE INTENSIVE REHABILLITATION PROGRAM. METHODS OR INTERVENTIONS TO AVOID COMPLIC ATIONS INCLUDE: - Bleeding Assess lab values and manage abnormalities. Nursing to teach precautions for anti-coagulation therapy . Wound to be assessed every shift. - Infection Clinical staff to assess and manage the signs and symptoms of infection including fever, redness, war mth, etc. - Urinary Tract Infection - Falls Patient will be evaluated for Fall Precautions and will be placed on Fall Precautions as indicated pe r protocol. - Skin Breakdown Nursing will assess skin daily using assessment tool and will place on Skin Breakdown Precautions as indicated per protocol. - Pain Clinical staff may employ non-medication methods such as massage, distraction, decrease stimulus, etc . as needed. Clinical staff will assess patient's pain level every shift per protocol to assess and e nsure pain management effectiveness. Medications will be given and the pain level re-assessed. PRELIMINARY PLAN OF CARE: - Physical Therapy Patient needs Physical Therapy for a daily minimum of 1.5 hours at least 5 out of 7 days, to improve: Mobility, Strengthening, Transfers, Stretching, ROM, Endurance, Ability to manage stairs, Gait, and Balance. - Speech Therapy Patient needs Speech Therapy for a daily minimum of 0.5 hours at least 5 out of 7 days, to improve: S wallowing, Cognition, Language Skills, and Compensatory Strategies. - Rehabilitation Nursing Patient requires 24x7 Rehabilitation Nursing for: Pain Issues, Identifying and preventing risk factor s, Monitoring and reporting current medical conditions, Assisting with ambulation and transfer, Gilberto ting with all ADL-s, Teaching patients about disease process and medications, Family teaching, Provid ing safe environment, Bowel and Bladder Issues, Skin Integrity, and Medication Management. Patient needs Outreach Coordinator and/or Case Management for: Discharge Planning, Arranging Home Equipmen t or Services, and Family Interventions. - Dietary and Nutrition Services Patient needs Dietary and Nutrition Services for: Adequate Nutrition, Nutritional Supplements, and Nu tritional Education. - Occupational Therapy Patient needs Occupational Therapy for a daily minimum of 1.5 hours at least 5 out of 7 days, to impr ove Activities of Daily Living, including: Eating, Grooming, Bathing, Dressing, Toileting, Toilet Tra nsfers, Community Reintegration, Higher functional activities, Adaptive Equipment, Splinting, Househo ld Tasks, and Other activities as determined. QI SCORES: - Self-Care A. Eating 04-Supervision or touching assistance B. Oral hygiene 04-Supervision or touching assistance C. Toileting hygiene 02-Substantial/maximal assistance E. Shower/bathe self 01-Dependent F. Upper body dressing 02-Substantial/maximal assistance G. Lower body dressing 10-Not attempted due to environmental limitations H. Putting on/taking off footwear 88-Not attempted due to medical condition or safety concerns - Mobility A. Roll left and right 02-Substantial/maximal assistance B. Sit to lying 02-Substantial/maximal assistance C. Lying to sitting on side of bed 02-Substantial/maximal assistance D. Sit to stand 02-Substantial/maximal assistance E. Chair/izg-jg-[id number] transfer 01-Dependent F. Toilet transfer 01-Dependent G. Car transfer 88-Not attempted due to medical condition or safety concerns I. Walk 10 feet 88-Not attempted due to medical condition or safety concerns J. Walk 50 feet with two turns 88-Not attempted due to medical condition or safety concerns K. Walk 150 feet 88-Not attempted due to medical condition or safety concerns L. Walking 10 feet on uneven surfaces 88-Not attempted due to medical condition or safety concerns M. 1 step (curb) 88-Not attempted due to medical condition or safety concerns N. 4 steps 88-Not attempted due to medical condition or safety concerns O. 12 steps 88-Not attempted due to medical condition or safety concerns P. Picking up object 88-Not attempted due to medical condition or safety concerns R. Wheel 50 feet with two turns S. Wheel 150 feet - Bladder and Bowel Bladder continence 0-Always continent Bowel continence 0-Always continent - Endurance Poor - Balance Poor - Safety Awareness Poor POTENTIAL FUNCTIONAL GOALS FOR PATIENT TO ACHIEVE BY DISCHARGE: - Safety Precaution Patient will remain free from falls or injury at time of discharge. - Bed Mobility Patient will perform bed mobility at 4-Anil level of assistance. - Transfers Patient will complete transfers from bed to chair at 4-Anil level of assistance. - Mobility Patient will ambulate 150 ft with 4-Anil level of assistance with RW. PATIENT REHAB POTENTIAL Nelida ROGERS is able and expected to receive 3 hours of individualized therapy daily on at least 5 of jeffrey ry 7 days Nelida ROGERS's prognosis for significant practical improvement within a reasonable period of time appears Good Expected level of measurable improvement will be of a practical value to Nelida ROGERS's functional capaci ty or adaptations to impairments Has a viable Discharge Plan Medically appropriate; condition is sufficiently stable to participate in intensive rehab program DISCHARGE PLAN: - Consensus on plan Discharge plan has been discussed with primary caregiver. Patient/Family is in agreement with the denis n. Primary caregiver is in agreement with the plan. - Patient/Family Goals Return home with assistance. - Planned Living Setting Upon Discharge Home, to live with Attendant. CONCLUSION ON REHABILITATION NECESSITY: I have evaluated patient's pre-admission functional status and, comparing it to the patient's post-ad mission functional status now, I conclude that the pre-admission assessment was accurate. Patient's c ondition on admission supports the medical necessity of admission to [facility]. It is safe to proceed with patient's therapy program. SIGNATURE PANEL: (CDT)
[2019-06-17] MEDS: GABAPENTIN 300 MG CAP PO SCH ×2 (14:26→20:18)
[2019-06-17] MEDS: POTASSIUM CL SA 10 MEQ TAB PO SCH (14:26)
--- NOTE | 2019-06-17 15:05 | FAST ---
SHIFT START DATE/TIME: 06/17/2019 07:00 (CDT) SHIFT END DATE/TIME: 06/17/2019 19:00 (CDT) NAME PRICE ROGERS DATE OF : 1940 DATE OF ADMISSION: 06/16/2019 09:16 (CDT) PHONE: AGE: 79 N# [id number] GENDER: Male ENCOUNTER PHYSICIAN: Dr. Abdirahman Zepeda M.D. ADMISSION DIAGNOSIS: - Orthopaedic Disorders 08 - Unilateral Hip Fracture (08.11) displaced femoral neck fracture on the left. EATING: EATING - STEP 1: Does the patient complete the activity by him/herself with no assistance (physical, verbal/nonverbal cueing, setup/clean-up)? No. EATING - STEP 2: Does the patient need only setup/clean-up assistance from one helper? Yes. 1. [id number] ADMISSION PERFORMANCE: Setup or clean-up assistance CODE: 05 ORAL HYGIENE: Not assessed/no information CODE: - TOILETING HYGIENE: TOILETING HYGIENE - STEP 1: Does the patient complete the activity by him/herself with no assistance (physical, verbal/nonverbal cueing, setup/clean-up)? No. TOILETING HYGIENE - STEP 2: Does the patient need only setup/clean-up assistance from one helper? No. TOILETING HYGIENE - STEP 3: Does the patient need only verbal/nonverbal cueing or touching/steadying/contact guard assistance fro m one helper? No. TOILETING HYGIENE - STEP 4: Does the patient need physical assistance - for example lifting or trunk support from one helper - wi th the helper providing less than half of the effort? No. TOILETING HYGIENE - STEP 5: Does the patient need physical assistance - for example lifting or trunk support from one helper - wi th the helper providing more than half of the effort? No. TOILETING HYGIENE - STEP 6: Does the helper provide all of the effort? OR Is the assistance of two or more helpers required to co mplete the activity? Yes. 1. [id number] ADMISSION PERFORMANCE: Dependent CODE: 01 BATHING: Not assessed/no information CODE: - DRESSING - UPPER BODY: Not assessed/no information CODE: - DRESSING - LOWER BODY: Not assessed/no information CODE: - PUTTING ON/TAKING OFF FOOTWEAR: Not assessed/no information CODE: - DOES THE PATIENT USE A WHEELCHAIR/SCOOTER? CODE: EXPR INDICATE THE TYPE OF WHEELCHAIR/SCOOTER USED: CODE: EXPR INDICATE THE TYPE OF WHEELCHAIR/SCOOTER USED: CODE: EXPR BLADDER AND BOWEL: H350. BLADDER CONTINENCE (3-DAY ASSESSMENT PERIOD): Always continent (no documented incontinence) CODE: 0 H0350 - COMMENTS: Uses urinal with assistance H400. BOWEL CONTINENCE (3-DAY ASSESSMENT PERIOD): Always continent CODE: 0 SIGNATURE PANEL: The following modified sections: 1. [id number] Admission Performance, 1. [id number] Admission Performance, H400. Bowel Continence (3-day assessment period), H350. Bladder Continence (3-day assessment period), H0350 - Comments: were [electronically] signed by [email or web address] on ThuJun 17 2019 15:04:07 G [id number] (Central Daylight Time)
[2019-06-17] MEDS ORDERED: GABAPENTIN 300 MG CAP PO SCH (17:00)
[2019-06-17] MEDS: TAMSULOSIN 0.4 MG SR CAP PO SCH (20:17)
[2019-06-17] MEDS: ATORVASTATIN 10 MG TAB PO SCH (20:18)
[2019-06-17] MEDS: PROMOD 30 ML DOSE PO SCH (20:18)
[2019-06-18] MEDS: METOPROLOL XL 50 MG TAB PO SCH (05:10)
[2019-06-18] MEDS: TRAMADOL HCL 50 MG TAB PO PRN ×3 (05:10→21:01)
[2019-06-18] MEDS ORDERED: GLUCAGON 1 MG/VIAL IM PRN (06:18)
[2019-06-18] MEDS ORDERED: D50W 25 GM/50 ML SYRINGE/VIAL IV PRN (06:18)
[2019-06-18] MEDS: INSULIN -REGULAR HUMAN 50 UNIT/0.5 ML ML SQ SCH ×4 (07:30→20:59)
[2019-06-18] MEDS: FUROSEMIDE 20 MG TABLET PO SCH (08:58)
[2019-06-18] MEDS: VALSARTAN 40 MG TAB PO SCH (08:59)
[2019-06-18] MEDS: FERROUS SULFATE 325 MG TAB PO SCH (08:59)
[2019-06-18] MEDS: FE SULF/FA/VIT B COMP & C TAB PO SCH (08:59)
[2019-06-18] MEDS: GABAPENTIN 300 MG CAP PO SCH ×3 (09:00→20:59)
[2019-06-18] MEDS: POTASSIUM CL SA 10 MEQ TAB PO SCH (09:00)
[2019-06-18] MEDS: APIXABAN 5 MG TABLET PO SCH (09:00)
[2019-06-18] MEDS: MAGNESIUM OXIDE 400 MG TAB PO SCH ×2 (09:00→20:59)
[2019-06-18] MEDS: METFORMIN HCL 500 MG TAB PO SCH (09:00)
[2019-06-18] MEDS: CITALOPRAM 10 MG TABLET PO SCH (09:00)
[2019-06-18] MEDS: PROMOD 30 ML DOSE PO SCH ×2 (09:01→20:59)
[2019-06-18] MEDS: HYDROCODONE/APAP 5/325 MG TAB PO PRN (11:01)
[2019-06-18] MEDS: ATORVASTATIN 10 MG TAB PO SCH (20:59)
[2019-06-18] MEDS: TAMSULOSIN 0.4 MG SR CAP PO SCH (20:59)
[2019-06-19] MEDS: HYDROCODONE/APAP 5/325 MG TAB PO PRN ×3 (03:19→16:26)
[2019-06-19] MEDS: METOPROLOL XL 50 MG TAB PO SCH (05:03)
[2019-06-19] MEDS: INSULIN -REGULAR HUMAN 50 UNIT/0.5 ML ML SQ SCH ×4 (07:30→21:00)
[2019-06-19] MEDS: TRAMADOL HCL 50 MG TAB PO PRN ×2 (07:33→21:17)
[2019-06-19] MEDS: PROMOD 30 ML DOSE PO SCH ×3 (08:00→21:17)
[2019-06-19] MEDS: FE SULF/FA/VIT B COMP & C TAB PO SCH (09:08)
[2019-06-19] MEDS: METFORMIN HCL 500 MG TAB PO SCH (09:08)
[2019-06-19] MEDS: MAGNESIUM OXIDE 400 MG TAB PO SCH ×2 (09:08→21:00)
[2019-06-19] MEDS: APIXABAN 5 MG TABLET PO SCH (09:09)
[2019-06-19] MEDS: CITALOPRAM 10 MG TABLET PO SCH (09:09)
[2019-06-19] MEDS: GABAPENTIN 300 MG CAP PO SCH ×3 (09:09→21:17)
[2019-06-19] MEDS: FUROSEMIDE 20 MG TABLET PO SCH (09:10)
[2019-06-19] MEDS: FERROUS SULFATE 325 MG TAB PO SCH (09:10)
[2019-06-19] MEDS: POTASSIUM CL SA 10 MEQ TAB PO SCH (09:11)
[2019-06-19] MEDS: VALSARTAN 40 MG TAB PO SCH (09:11)
[2019-06-19] MEDS: TAMSULOSIN 0.4 MG SR CAP PO SCH (21:16)
[2019-06-19] MEDS: CRANBERRY FRUIT EXTRACT 200 MG CAP PO SCH (21:16)
[2019-06-19] MEDS: ATORVASTATIN 10 MG TAB PO SCH (21:16)
[2019-06-20] MEDS: METOPROLOL XL 50 MG TAB PO SCH (05:20)
[2019-06-20] MEDS: INSULIN -REGULAR HUMAN 50 UNIT/0.5 ML ML SQ SCH ×4 (07:30→20:57)
[2019-06-20] MEDS: CRANBERRY FRUIT EXTRACT 200 MG CAP PO SCH ×2 (08:05→20:55)
[2019-06-20] MEDS: TRAMADOL HCL 50 MG TAB PO PRN ×2 (08:05→12:38)
[2019-06-20] MEDS: CITALOPRAM 10 MG TABLET PO SCH (08:05)
[2019-06-20] MEDS: METFORMIN HCL 500 MG TAB PO SCH (08:06)
[2019-06-20] MEDS: MAGNESIUM OXIDE 400 MG TAB PO SCH ×2 (08:07→20:55)
[2019-06-20] MEDS: FUROSEMIDE 20 MG TABLET PO SCH (08:07)
[2019-06-20] MEDS: FERROUS SULFATE 325 MG TAB PO SCH (08:07)
[2019-06-20] MEDS: FE SULF/FA/VIT B COMP & C TAB PO SCH (08:07)
[2019-06-20] MEDS: APIXABAN 5 MG TABLET PO SCH (08:08)
[2019-06-20] MEDS: POTASSIUM CL SA 10 MEQ TAB PO SCH (08:08)
[2019-06-20] MEDS: GABAPENTIN 300 MG CAP PO SCH ×3 (08:08→20:56)
[2019-06-20] MEDS: VALSARTAN 40 MG TAB PO SCH (08:12)
[2019-06-20] MEDS: PROMOD 30 ML DOSE PO SCH ×2 (09:45→20:00)
[2019-06-20] MEDS: HYDROCODONE/APAP 5/325 MG TAB PO PRN (10:32)
--- NOTE | 2019-06-20 17:27 | R.PN ---
ENCOUNTER DATE AND TIME: 06/20/2019 17:20 (CDT) NAME PRICE ROGERS DATE OF : 1940 DATE OF ADMISSION: 06/16/2019 09:16 (CDT) displaced femoral neck fracture on the leftCHIEF COMPLAINT: Left femoral neck fracture s/p left bipolar hemiarthroplasty. Chronic stroke with left hemiparesis. SUBJECTIVE: Pt denied any Shortness of Breath. Pt denied any depression. WBC 7.3, Hgb 9.8, PLT 217, glucose 97 to 103. Mr. Rogers did multiple stand and pivot transfers with moderate assistance using a quad cane in the ri t hand. VITAL SIGNS Temperature: 98.2 F SBP/DBP: 134/82 Pulse: 75 Resp: 18 MEDICATION ALLERGIES: No Known Drug Allergies (NKDA) ENVIRONMENTAL ALLERGIES: - Substance Allergies None Known - Other Allergies honey bee venom NURSING: - Shower allowing shower - Skin care per protocol PRECAUTIONS: - Weight Bearing Precaution WBAT left LE ACTIVITIES OOB only with supervision THERAPIES: - Dietary and Nutrition Adequate Nutrition. Nutritional Education. Nutritional Supplements. PHYSICAL EXAM - Gen Alert and awake Lying in bed No apparent distress Oriented to: person, time, and place - Skin No skin breakdown. Normacephalic - Eyes No abnormalities - ENMT No abnormalities - Neck No abnormalities - CVS RRR - Chest No abnormalities - Abd Soft - GI Non distended Deferred - No abnormalities - Ext No significant edema - MSK 1-2+/5 weakness in left upper and lower extremity. - Neuro 1-2+/5 weakness in left upper and lower extremity. - Psych Mild anxiety. ASSESSMENT: Pt. is a 79 yo Right-handed white male.On 06/10/2019 he was admitted to [facility] and under went emergency surgery for displaced femoral neck fracture on the left (Unilateral Hip Fracture) by DR DAILEY.Pre-morbidly, Pt. was ind ependent/mod-I in Transfers Control, Locomotion, and Self-Care; and he had good Balance, Safety Aware ness, Social Cognition, and Sphincter Control.Currently, he has deficits of Transfers Control, Locomo tion, Balance, Safety Awareness, and Self-Care.Pt. is now referred to [facility] for acute in-patient rehabilitation in order to maximize patient's functional independence in acti vities of daily living, strength, ROM, and mobility.- Rehab Goal Patient has realistic goal of being discharged at assistance level 6-Maria E to reside at Home with Att endant. MDM/PLAN: - Physical Therapy Decreased range of motion - to improve, our physical therapists will perform initial evaluation of p t's status upon admission and devise an individualized program for increasing patient's Range of [place] on. Gait dysfunction - to improve, our physical therapists will perform initial evaluation of pt's statu s upon admission and devise an individualized program for Gait Training, and Wheel Chair mobility Inability to transfer - to improve, our physical therapists will perform initial evaluation of pt's status upon admission and devise an individualized program for Bed mobility Need for home safety evaluation - to improve, our physical therapists will perform initial evaluatio n of pt's status upon admission and devise an individualized program for Home Evaluation Need in caregiver upon discharge - to improve, our physical therapists will perform initial evaluati on of pt's status upon admission and devise an individualized program for Caregiver Training Edema - to improve, our physical therapists will perform initial evaluation of pt's status upon admis rhoda and devise an individualized program for Elevation Training, and Lymphedema Therapy New precaution - to improve, our physical therapists will perform initial evaluation of pt's status upon admission and devise an individualized program for Patient precaution education Poor balance - to improve, our physical therapists will perform initial evaluation of pt's status up on admission and devise an individualized program for Balance Training Weakness - to improve, our physical therapists will perform initial evaluation of pt's status upon a dmission and devise an individualized program for Aquatic Therapy, Neuromuscular Reeducation, and Str engthening Achieving independence - to improve, our physical therapists will perform initial evaluation of pt's status upon admission and devise an individualized program for Community Reintegration Activities - Occupational Therapy ADL deficits - to improve, our occupation therapists will perform initial evaluation of pt's status upon admission and devise an individualized program for Bathing, Bed mobility, Community Reintegratio n, Cooking, Dressing, Eating, Fine Motor Skills, Grooming, Homemaking, Kitchen Mobility, Laundry, Pat ient Education, Safety Awareness, Splinting - Positioning, Transfers(Toilet, Tub, Shower), and Wheel Chair Management Need for resident care associate - to improve, our occupation therapists will perform initial evaluation of pt's status upon admission and devise an individualized program for Caregiver Training Weakness - to improve, our occupation therapists will perform initial evaluation of pt's status upon admission and devise an individualized program for Aquatic Therapy, Balance, Endurance, UE ROM, and UE strengthening - Other See attached MAR (Medication Administration Record) - Anterior Hip Precaution No abduction No active extension No adduction across midline No external rotation No hip flexion >90 degrees No internal rotation - Diet - Liquid Texture Continue Regular - Tube Feed Continue N/A - Diet Type Continue Regular - Posterior Hip Precaution No adduction across midline No external rotation No hip flexion >90 degrees No internal rotation No wheel chair propulsion - Weight Bearing Precaution WBAT left LE - Skin care per protocol - Diet - Solid Texture Continue Regular - Shower allowing shower FUNCTIONAL STATUS: UPDATED AT WEEKLY TEAM CONFERENCE - Walking Same score based on distance walked: 0(N/A) - Wheelchair Same FUNCTIONAL STATUS: - Self-Care A. Eating Maria E B. Grooming Maria E C. Bathing maxA D. Dressing - Upper modA E. Dressing - Lower modA F. Toileting modA - Sphincter Control G. Bladder control Anil H. Bowel control Anil - Transfers Control I. Bed/Chair/Wheelchair modA J. Toilet modA K. Tub/Shower modA - Locomotion L. Walk/Wheelchair (B) modA M. Stairs ADNO - Communication N. Comprehension (B) Maria E O. Expression (B) sup - Social Cognition P. Social Interaction sup Q. Problem Solving sup R. Memory Maria E - Endurance Fair - Balance Poor - Safety Awareness Fair QI SCORES: - Self-Care A. Eating 04-Supervision or touching assistance B. Oral hygiene 04-Supervision or touching assistance C. Toileting hygiene 02-Substantial/maximal assistance E. Shower/bathe self 01-Dependent F. Upper body dressing 02-Substantial/maximal assistance G. Lower body dressing 10-Not attempted due to environmental limitations H. Putting on/taking off footwear 88-Not attempted due to medical condition or safety concerns - Mobility A. Roll left and right 02-Substantial/maximal assistance B. Sit to lying 02-Substantial/maximal assistance C. Lying to sitting on side of bed 02-Substantial/maximal assistance D. Sit to stand 02-Substantial/maximal assistance E. Chair/[id number]-[id number] transfer 01-Dependent F. Toilet transfer 01-Dependent G. Car transfer 88-Not attempted due to medical condition or safety concerns I. Walk 10 feet 88-Not attempted due to medical condition or safety concerns J. Walk 50 feet with two turns 88-Not attempted due to medical condition or safety concerns K. Walk 150 feet 88-Not attempted due to medical condition or safety concerns L. Walking 10 feet on uneven surfaces 88-Not attempted due to medical condition or safety concerns M. 1 step (curb) 88-Not attempted due to medical condition or safety concerns N. 4 steps 88-Not attempted due to medical condition or safety concerns O. 12 steps 88-Not attempted due to medical condition or safety concerns P. Picking up object 88-Not attempted due to medical condition or safety concerns R. Wheel 50 feet with two turns S. Wheel 150 feet - Bladder and Bowel Bladder continence 0-Always continent Bowel continence 0-Always continent - Endurance Poor - Balance Poor - Safety Awareness Poor CURRENT FUNC. DEFICITS: Self-Care, Mobility, Endurance, Balance, and Safety Awareness SIGNATURE PANEL: (CDT)
[2019-06-20] MEDS: TAMSULOSIN 0.4 MG SR CAP PO SCH (20:56)
[2019-06-20] MEDS: ACETAMINOPHEN 500 MG TAB PO PRN (20:57)
[2019-06-20] MEDS: ATORVASTATIN 10 MG TAB PO SCH (20:57)
[2019-06-20] MEDS: JUVEN PACKET PO SCH (20:58)
[2019-06-21] MEDS: TRAMADOL HCL 50 MG TAB PO PRN ×4 (01:00→17:25)
[2019-06-21] MEDS: METOPROLOL XL 50 MG TAB PO SCH (05:10)
[2019-06-21] MEDS: INSULIN -REGULAR HUMAN 50 UNIT/0.5 ML ML SQ SCH ×4 (07:30→20:07)
[2019-06-21] MEDS: FUROSEMIDE 20 MG TABLET PO SCH (08:49)
[2019-06-21] MEDS: FERROUS SULFATE 325 MG TAB PO SCH (08:49)
[2019-06-21] MEDS: CRANBERRY FRUIT EXTRACT 200 MG CAP PO SCH ×2 (08:50→20:06)
[2019-06-21] MEDS: MAGNESIUM OXIDE 400 MG TAB PO SCH ×2 (08:52→20:06)
[2019-06-21] MEDS: GABAPENTIN 300 MG CAP PO SCH ×2 (08:52→20:07)
[2019-06-21] MEDS: METFORMIN HCL 500 MG TAB PO SCH (08:52)
[2019-06-21] MEDS: POTASSIUM CL SA 10 MEQ TAB PO SCH (08:54)
[2019-06-21] MEDS: FE SULF/FA/VIT B COMP & C TAB PO SCH (08:54)
[2019-06-21] MEDS: CITALOPRAM 10 MG TABLET PO SCH (08:55)
[2019-06-21] MEDS: APIXABAN 5 MG TABLET PO SCH (08:55)
[2019-06-21] MEDS: VALSARTAN 40 MG TAB PO SCH (08:55)
[2019-06-21] MEDS: JUVEN PACKET PO SCH ×2 (08:56→20:00)
[2019-06-21] MEDS: PROMOD 30 ML DOSE PO SCH ×2 (08:56→20:07)
[2019-06-21] MEDS: HYDROCODONE/APAP 5/325 MG TAB PO PRN (11:25)
[2019-06-21] MEDS: LIDOCAINE 4% PATCH TOP SCH (13:22)
--- NOTE | 2019-06-21 17:47 | R.PN ---
ENCOUNTER DATE AND TIME: 06/21/2019 17:21 (CDT) NAME PRICE ROGERS DATE OF : 1940 DATE OF ADMISSION: 06/16/2019 09:16 (CDT) displaced femoral neck fracture on the leftCHIEF COMPLAINT: Left femoral neck fracture s/p left bipolar hemiarthroplasty. Chronic stroke with left hemiparesis. SUBJECTIVE: Pt denied any Shortness of Breath. Pt denied any depression. WBC 7.3, Hgb 9.8, PLT 217, glucose 80 to 125. Self-propelled wheelchair 250' with minimum assistance and multiple rest breaks. Mr. Rogers did multip le stand and pivot transfers with moderate assistance using a quad cane in the right hand. VITAL SIGNS Temperature: 98.1 F SBP/DBP: 115/65 Pulse: 65 Resp: 16 MEDICATION ALLERGIES: No Known Drug Allergies (NKDA) ENVIRONMENTAL ALLERGIES: - Substance Allergies None Known - Other Allergies honey bee venom NURSING: - Shower allowing shower - Skin care per protocol PRECAUTIONS: - Weight Bearing Precaution WBAT left LE ACTIVITIES OOB only with supervision THERAPIES: - Dietary and Nutrition Adequate Nutrition. Nutritional Education. Nutritional Supplements. PHYSICAL EXAM - Gen Alert and awake Lying in bed No apparent distress Oriented to: person, time, and place - Skin No skin breakdown. Normacephalic - Eyes No abnormalities - ENMT No abnormalities - Neck No abnormalities - CVS RRR - Chest No abnormalities - Abd Soft - GI Non distended Deferred - No abnormalities - Ext No significant edema - MSK 1-2+/5 weakness in left upper and lower extremity. - Neuro 1-2+/5 weakness in left upper and lower extremity. - Psych Mild anxiety. ASSESSMENT: Pt. is a 79 yo Right-handed white male.On 06/10/2019 he was admitted to [facility] and under went emergency surgery for displaced femoral neck fracture on the left (Unilateral Hip Fracture) by DR DAILEY.Pre-morbidly, Pt. was ind ependent/mod-I in Transfers Control, Locomotion, and Self-Care; and he had good Balance, Safety Aware ness, Social Cognition, and Sphincter Control.Currently, he has deficits of Transfers Control, Locomo tion, Balance, Safety Awareness, and Self-Care.Pt. is now referred to [facility] for acute in-patient rehabilitation in order to maximize patient's functional independence in acti vities of daily living, strength, ROM, and mobility.- Rehab Goal Patient has realistic goal of being discharged at assistance level 6-Maria E to reside at Home with Att endant. MDM/PLAN: - Physical Therapy Decreased range of motion - to improve, our physical therapists will perform initial evaluation of p t's status upon admission and devise an individualized program for increasing patient's Range of [place] on. Gait dysfunction - to improve, our physical therapists will perform initial evaluation of pt's statu s upon admission and devise an individualized program for Gait Training, and Wheel Chair mobility Inability to transfer - to improve, our physical therapists will perform initial evaluation of pt's status upon admission and devise an individualized program for Bed mobility Need for home safety evaluation - to improve, our physical therapists will perform initial evaluatio n of pt's status upon admission and devise an individualized program for Home Evaluation Need in caregiver upon discharge - to improve, our physical therapists will perform initial evaluati on of pt's status upon admission and devise an individualized program for Caregiver Training Edema - to improve, our physical therapists will perform initial evaluation of pt's status upon admi ssion and devise an individualized program for Elevation Training, and Lymphedema Therapy New precaution - to improve, our physical therapists will perform initial evaluation of pt's status upon admission and devise an individualized program for Patient precaution education Poor balance - to improve, our physical therapists will perform initial evaluation of pt's status up on admission and devise an individualized program for Balance Training Weakness - to improve, our physical therapists will perform initial evaluation of pt's status upon a dmission and devise an individualized program for Aquatic Therapy, Neuromuscular Reeducation, and Str engthening Achieving independence - to improve, our physical therapists will perform initial evaluation of pt's status upon admission and devise an individualized program for Community Reintegration Activities - Occupational Therapy ADL deficits - to improve, our occupation therapists will perform initial evaluation of pt's status upon admission and devise an individualized program for Bathing, Bed mobility, Community Reintegratio n, Cooking, Dressing, Eating, Fine Motor Skills, Grooming, Homemaking, Kitchen Mobility, Laundry, Pat ient Education, Safety Awareness, Splinting - Positioning, Transfers(Toilet, Tub, Shower), and Wheel Chair Management Need for healthcare business analyst - to improve, our occupation therapists will perform initial evaluation of pt's status upon admission and devise an individualized program for Caregiver Training Weakness - to improve, our occupation therapists will perform initial evaluation of pt's status upon admission and devise an individualized program for Aquatic Therapy, Balance, Endurance, UE ROM, and UE strengthening - Other See attached MAR (Medication Administration Record) - Anterior Hip Precaution No abduction No active extension No adduction across midline No external rotation No hip flexion >90 degrees No internal rotation - Diet - Liquid Texture Continue Regular - Tube Feed Continue N/A - Diet Type Continue Regular - Posterior Hip Precaution No adduction across midline No external rotation No hip flexion >90 degrees No internal rotation No wheel chair propulsion - Weight Bearing Precaution WBAT left LE - Skin care per protocol - Diet - Solid Texture Continue Regular - Shower allowing shower FUNCTIONAL STATUS: UPDATED AT WEEKLY TEAM CONFERENCE - Walking Same score based on distance walked: 0(N/A) - Wheelchair Same FUNCTIONAL STATUS: - Self-Care A. Eating Maria E B. Grooming Maria E C. Bathing maxA D. Dressing - Upper modA E. Dressing - Lower modA F. Toileting modA - Sphincter Control G. Bladder control Anil H. Bowel control Anil - Transfers Control I. Bed/Chair/Wheelchair modA J. Toilet modA K. Tub/Shower modA - Locomotion L. Walk/Wheelchair (B) modA M. Stairs ADNO - Communication N. Comprehension (B) Maria E O. Expression (B) sup - Social Cognition P. Social Interaction sup Q. Problem Solving sup R. Memory Maria E - Endurance Fair - Balance Poor - Safety Awareness Fair QI SCORES: - Self-Care A. Eating 04-Supervision or touching assistance B. Oral hygiene 04-Supervision or touching assistance C. Toileting hygiene 02-Substantial/maximal assistance E. Shower/bathe self 01-Dependent F. Upper body dressing 02-Substantial/maximal assistance G. Lower body dressing 10-Not attempted due to environmental limitations H. Putting on/taking off footwear 88-Not attempted due to medical condition or safety concerns - Mobility A. Roll left and right 02-Substantial/maximal assistance B. Sit to lying 02-Substantial/maximal assistance C. Lying to sitting on side of bed 02-Substantial/maximal assistance D. Sit to stand 02-Substantial/maximal assistance E. Chair/opw-ag-[id number] transfer 01-Dependent F. Toilet transfer 01-Dependent G. Car transfer 88-Not attempted due to medical condition or safety concerns I. Walk 10 feet 88-Not attempted due to medical condition or safety concerns J. Walk 50 feet with two turns 88-Not attempted due to medical condition or safety concerns K. Walk 150 feet 88-Not attempted due to medical condition or safety concerns L. Walking 10 feet on uneven surfaces 88-Not attempted due to medical condition or safety concerns M. 1 step (curb) 88-Not attempted due to medical condition or safety concerns N. 4 steps 88-Not attempted due to medical condition or safety concerns O. 12 steps 88-Not attempted due to medical condition or safety concerns P. Picking up object 88-Not attempted due to medical condition or safety concerns R. Wheel 50 feet with two turns S. Wheel 150 feet - Bladder and Bowel Bladder continence 0-Always continent Bowel continence 0-Always continent - Endurance Poor - Balance Poor - Safety Awareness Poor CURRENT FUNC. DEFICITS: Self-Care, Mobility, Endurance, Balance, and Safety Awareness SIGNATURE PANEL: (CDT)
[2019-06-21] MEDS: TAMSULOSIN 0.4 MG SR CAP PO SCH (20:07)
[2019-06-21] MEDS: ATORVASTATIN 10 MG TAB PO SCH (20:07)
--- NOTE | 2019-06-22 01:49 | FAST ---
SHIFT START DATE/TIME: 06/17/2019 19:00 (CDT) SHIFT END DATE/TIME: 06/18/2019 07:00 (CDT) NAME PRICE ROGERS DATE OF : 1940 DATE OF ADMISSION: 06/16/2019 09:16 (CDT) PHONE: AGE: 79 N# [id number] GENDER: Male ENCOUNTER PHYSICIAN: Dr. Abdirahman Zepeda M.D. ADMISSION DIAGNOSIS: - Orthopaedic Disorders 08 - Unilateral Hip Fracture (08.11) displaced femoral neck fracture on the left. EATING: Not assessed/no information CODE: - ORAL HYGIENE: Not assessed/no information CODE: - TOILETING HYGIENE: TOILETING HYGIENE - STEP 1: Does the patient complete the activity by him/herself with no assistance (physical, verbal/nonverbal cueing, setup/clean-up)? No. TOILETING HYGIENE - STEP 2: Does the patient need only setup/clean-up assistance from one helper? No. TOILETING HYGIENE - STEP 3: Does the patient need only verbal/nonverbal cueing or touching/steadying/contact guard assistance fro m one helper? No. TOILETING HYGIENE - STEP 4: Does the patient need physical assistance - for example lifting or trunk support from one helper - wi th the helper providing less than half of the effort? No. TOILETING HYGIENE - STEP 5: Does the patient need physical assistance - for example lifting or trunk support from one helper - wi th the helper providing more than half of the effort? No. TOILETING HYGIENE - STEP 6: Does the helper provide all of the effort? OR Is the assistance of two or more helpers required to co mplete the activity? Yes. 1. [id number] ADMISSION PERFORMANCE: Dependent CODE: 01 BATHING: Not assessed/no information CODE: - DRESSING - UPPER BODY: Not assessed/no information CODE: - DRESSING - LOWER BODY: Not assessed/no information CODE: - PUTTING ON/TAKING OFF FOOTWEAR: Not assessed/no information CODE: - ROLL LEFT AND RIGHT: ROLL LEFT AND RIGHT - STEP 1: Does the patient complete the activity by him/herself with no assistance (physical, verbal/nonverbal cueing, setup/clean-up)? No. ROLL LEFT AND RIGHT - STEP 2: Does the patient need only setup/clean-up assistance from one helper? No. ROLL LEFT AND RIGHT - STEP 3: Does the patient need only verbal/nonverbal cueing or touching/steadying/contact guard assistance fro m one helper? No. ROLL LEFT AND RIGHT - STEP 4: Does the patient need physical assistance - for example lifting or trunk support from one helper - wi th the helper providing less than half of the effort? No. ROLL LEFT AND RIGHT - STEP 5: Does the patient need physical assistance - for example lifting or trunk support from one helper - wi th the helper providing more than half of the effort? Yes. 1. [id number] ADMISSION PERFORMANCE: Substantial/maximal assistance CODE: 02 SIT TO LYING: Not assessed/no information CODE: - LYING TO SITTING: Not assessed/no information CODE: - SIT TO STAND: Not assessed/no information CODE: - TRANSFERS: BED, CHAIR: Not assessed/no information CODE: - TRANSFER TOILET: Not assessed/no information CODE: - TRANSFERS: CAR: Not assessed/no information CODE: - WALK 10 FEET: Not assessed/no information CODE: - 1 STEP (CURB): Not assessed/no information CODE: - PICKING UP OBJECT: Not assessed/no information CODE: - DOES THE PATIENT USE A WHEELCHAIR/SCOOTER? CODE: EXPR WHEEL 50 FEET WITH TWO TURNS: Not assessed/no information CODE: - INDICATE THE TYPE OF WHEELCHAIR/SCOOTER USED: CODE: EXPR WHEEL 150 FEET: Not assessed/no information CODE: - INDICATE THE TYPE OF WHEELCHAIR/SCOOTER USED: CODE: EXPR BLADDER AND BOWEL: H350. BLADDER CONTINENCE (3-DAY ASSESSMENT PERIOD): Always incontinent CODE: 4 H400. BOWEL CONTINENCE (3-DAY ASSESSMENT PERIOD): Always incontinent (no episodes of continent bowel movements) CODE: 3
[2019-06-22] MEDS: TRAMADOL HCL 50 MG TAB PO PRN ×3 (04:44→20:05)
[2019-06-22] MEDS: METOPROLOL XL 50 MG TAB PO SCH (05:02)
[2019-06-22] MEDS: INSULIN -REGULAR HUMAN 50 UNIT/0.5 ML ML SQ SCH ×5 (07:30→20:05)
[2019-06-22] MEDS: VALSARTAN 40 MG TAB PO SCH (08:00)
[2019-06-22] MEDS: PROMOD 30 ML DOSE PO SCH ×2 (08:00→20:05)
[2019-06-22] MEDS: JUVEN PACKET PO SCH ×2 (08:00→20:00)
[2019-06-22] MEDS: FUROSEMIDE 20 MG TABLET PO SCH (08:00)
[2019-06-22] MEDS: LIDOCAINE 4% PATCH TOP SCH (09:05)
[2019-06-22] MEDS: APIXABAN 5 MG TABLET PO SCH (09:06)
[2019-06-22] MEDS: GABAPENTIN 300 MG CAP PO SCH ×2 (09:07→20:04)
[2019-06-22] MEDS: CITALOPRAM 10 MG TABLET PO SCH (09:07)
[2019-06-22] MEDS: MAGNESIUM OXIDE 400 MG TAB PO SCH ×2 (09:07→20:04)
[2019-06-22] MEDS: METFORMIN HCL 500 MG TAB PO SCH (09:07)
[2019-06-22] MEDS: POTASSIUM CL SA 10 MEQ TAB PO SCH (09:07)
[2019-06-22] MEDS: FE SULF/FA/VIT B COMP & C TAB PO SCH (09:08)
[2019-06-22] MEDS: CRANBERRY FRUIT EXTRACT 200 MG CAP PO SCH ×2 (09:08→20:03)
[2019-06-22] MEDS: FERROUS SULFATE 325 MG TAB PO SCH (09:08)
--- NOTE | 2019-06-22 11:35 | RAD REPORT ---
EXAM DESCRIPTION: RAD - Hip Left 2 View - 06/22/2019 11:12 am CLINICAL HISTORY: Left hip pain FINDINGS: A left hip arthroplasty has been performed. Prosthesis is in good position. No evidence of loosening No fracture or dislocation
[2019-06-22] MEDS ORDERED: CEPACOL LOZENGES PO PRN (14:57)
--- NOTE | 2019-06-22 16:56 | R.PN ---
ENCOUNTER DATE AND TIME: 06/22/2019 16:47 (CDT) NAME PRICE ROGERS DATE OF : 1940 DATE OF ADMISSION: 06/16/2019 09:16 (CDT) displaced femoral neck fracture on the leftCHIEF COMPLAINT: Left femoral neck fracture s/p left bipolar hemiarthroplasty. Chronic stroke with left hemiparesis. SUBJECTIVE: Pt denied any Shortness of Breath. Pt denied any depression. WBC 7.3, Hgb 9.8, PLT 217, glucose 95 to 116. Self-propelled wheelchair 250' with minimum assistance and multiple rest breaks. Mr. Rogers did multip le stand and pivot transfers with moderate assistance using a quad cane in the right hand. He reports 8-10/10 pain in the left hip but his affect suggests less pain. His left hip x-ray shows e xpected findings post surgically without displacement of hardware. His tramadol is 100 mg every 4-6 h ours, norco 2.5/325 every 4 hours and gabapentin now 600 mg twice daily. VITAL SIGNS Temperature: 98.9 F SBP/DBP: 113/69 Pulse: 65 Resp: 16 MEDICATION ALLERGIES: No Known Drug Allergies (NKDA) ENVIRONMENTAL ALLERGIES: - Substance Allergies None Known - Other Allergies honey bee venom NURSING: - Shower allowing shower - Skin care per protocol PRECAUTIONS: - Weight Bearing Precaution WBAT left LE ACTIVITIES OOB only with supervision THERAPIES: - Dietary and Nutrition Adequate Nutrition. Nutritional Education. Nutritional Supplements. PHYSICAL EXAM - Gen Alert and awake Lying in bed No apparent distress Oriented to: person, time, and place - Skin No skin breakdown. Normacephalic - Eyes No abnormalities - ENMT No abnormalities - Neck No abnormalities - CVS RRR - Chest No abnormalities - Abd Soft - GI Non distended Deferred - No abnormalities - Ext No significant edema - MSK 1-2+/5 weakness in left upper and lower extremity. - Neuro 1-2+/5 weakness in left upper and lower extremity. - Psych Mild anxiety. ASSESSMENT: Pt. is a 79 yo Right-handed white male.On 06/10/2019 he was admitted to [facility] and under went emergency surgery for displaced femoral neck fracture on the left (Unilateral Hip Fracture) by DR DAILEY.Pre-morbidly, Pt. was ind ependent/mod-I in Transfers Control, Locomotion, and Self-Care; and he had good Balance, Safety Aware ness, Social Cognition, and Sphincter Control.Currently, he has deficits of Transfers Control, Locomo tion, Balance, Safety Awareness, and Self-Care.Pt. is now referred to [facility] for acute in-patient rehabilitation in order to maximize patient's functional independence in acti vities of daily living, strength, ROM, and mobility.- Rehab Goal Patient has realistic goal of being discharged at assistance level 6-Maria E to reside at Home with Att endant. MDM/PLAN: - Physical Therapy Decreased range of motion - to improve, our physical therapists will perform initial evaluation of p t's status upon admission and devise an individualized program for increasing patient's Range of [place] on. Gait dysfunction - to improve, our physical therapists will perform initial evaluation of pt's statu s upon admission and devise an individualized program for Gait Training, and Wheel Chair mobility Inability to transfer - to improve, our physical therapists will perform initial evaluation of pt's status upon admission and devise an individualized program for Bed mobility Need for home safety evaluation - to improve, our physical therapists will perform initial evaluatio n of pt's status upon admission and devise an individualized program for Home Evaluation Need in caregiver upon discharge - to improve, our physical therapists will perform initial evaluati on of pt's status upon admission and devise an individualized program for Caregiver Training Edema - to improve, our physical therapists will perform initial evaluation of pt's status upon admi ssion and devise an individualized program for Elevation Training, and Lymphedema Therapy New precaution - to improve, our physical therapists will perform initial evaluation of pt's status upon admission and devise an individualized program for Patient precaution education Poor balance - to improve, our physical therapists will perform initial evaluation of pt's status up on admission and devise an individualized program for Balance Training Weakness - to improve, our physical therapists will perform initial evaluation of pt's status upon a dmission and devise an individualized program for Aquatic Therapy, Neuromuscular Reeducation, and Str engthening Achieving independence - to improve, our physical therapists will perform initial evaluation of pt's status upon admission and devise an individualized program for Community Reintegration Activities - Occupational Therapy ADL deficits - to improve, our occupation therapists will perform initial evaluation of pt's status upon admission and devise an individualized program for Bathing, Bed mobility, Community Reintegratio n, Cooking, Dressing, Eating, Fine Motor Skills, Grooming, Homemaking, Kitchen Mobility, Laundry, Pat ient Education, Safety Awareness, Splinting - Positioning, Transfers(Toilet, Tub, Shower), and Wheel Chair Management Need for home care liaison - to improve, our occupation therapists will perform initial evaluation of pt's status upon admission and devise an individualized program for Caregiver Training Weakness - to improve, our occupation therapists will perform initial evaluation of pt's status upon admission and devise an individualized program for Aquatic Therapy, Balance, Endurance, UE ROM, and UE strengthening - Other See attached MAR (Medication Administration Record) - Anterior Hip Precaution No abduction No active extension No adduction across midline No external rotation No hip flexion >90 degrees No internal rotation - Diet - Liquid Texture Continue Regular - Tube Feed Continue N/A - Diet Type Continue Regular - Posterior Hip Precaution No adduction across midline No external rotation No hip flexion >90 degrees No internal rotation No wheel chair propulsion - Weight Bearing Precaution WBAT left LE - Skin care per protocol - Diet - Solid Texture Continue Regular - Shower allowing shower FUNCTIONAL STATUS: UPDATED AT WEEKLY TEAM CONFERENCE - Walking Same score based on distance walked: 0(N/A) - Wheelchair Same FUNCTIONAL STATUS: - Self-Care A. Eating Maria E B. Grooming Maria E C. Bathing maxA D. Dressing - Upper modA E. Dressing - Lower modA F. Toileting modA - Sphincter Control G. Bladder control Anil H. Bowel control Anil - Transfers Control I. Bed/Chair/Wheelchair modA J. Toilet modA K. Tub/Shower modA - Locomotion L. Walk/Wheelchair (B) modA M. Stairs ADNO - Communication N. Comprehension (B) Maria E O. Expression (B) sup - Social Cognition P. Social Interaction sup Q. Problem Solving sup R. Memory Maria E - Endurance Fair - Balance Poor - Safety Awareness Fair QI SCORES: - Self-Care A. Eating 04-Supervision or touching assistance B. Oral hygiene 04-Supervision or touching assistance C. Toileting hygiene 02-Substantial/maximal assistance E. Shower/bathe self 01-Dependent F. Upper body dressing 02-Substantial/maximal assistance G. Lower body dressing 10-Not attempted due to environmental limitations H. Putting on/taking off footwear 88-Not attempted due to medical condition or safety concerns - Mobility A. Roll left and right 02-Substantial/maximal assistance B. Sit to lying 02-Substantial/maximal assistance C. Lying to sitting on side of bed 02-Substantial/maximal assistance D. Sit to stand 02-Substantial/maximal assistance E. Chair/jfb-bm-[id number] transfer 01-Dependent F. Toilet transfer 01-Dependent G. Car transfer 88-Not attempted due to medical condition or safety concerns I. Walk 10 feet 88-Not attempted due to medical condition or safety concerns J. Walk 50 feet with two turns 88-Not attempted due to medical condition or safety concerns K. Walk 150 feet 88-Not attempted due to medical condition or safety concerns L. Walking 10 feet on uneven surfaces 88-Not attempted due to medical condition or safety concerns M. 1 step (curb) 88-Not attempted due to medical condition or safety concerns N. 4 steps 88-Not attempted due to medical condition or safety concerns O. 12 steps 88-Not attempted due to medical condition or safety concerns P. Picking up object 88-Not attempted due to medical condition or safety concerns R. Wheel 50 feet with two turns S. Wheel 150 feet - Bladder and Bowel Bladder continence 0-Always continent Bowel continence 0-Always continent - Endurance Poor - Balance Poor - Safety Awareness Poor CURRENT FUNC. DEFICITS: Self-Care, Mobility, Endurance, Balance, and Safety Awareness SIGNATURE PANEL: (CDT)
[2019-06-22] MEDS: TAMSULOSIN 0.4 MG SR CAP PO SCH (20:04)
[2019-06-22] MEDS: ARIPiprazole 5 MG TAB PO SCH (20:04)
[2019-06-22] MEDS: ATORVASTATIN 10 MG TAB PO SCH (20:04)
[2019-06-23] MEDS: TRAMADOL HCL 50 MG TAB PO PRN ×3 (04:47→19:54)
[2019-06-23] MEDS: METOPROLOL XL 50 MG TAB PO SCH (05:15)
[2019-06-23 05:58] LABS: Absolute Lymphocytes (CBC) 1.9 K/uL (0.7-4.9); Basophils % 0.8 % (0-1.3); Lymphocytes % 22.3 % (15.3-44.8); MPV 7.7 fL (7.6-11.3); RBC Red Blood Cell Count 3.11 M/uL (4.33-5.43)
[2019-06-23 06:03] LABS: Albumin 2.6 g/dL (3.4-5.0); BUN Blood Urea Nitrogen 17 mg/dL (7-18); Bicarbonate 30 mmol/L (21-32); Glucose Level 92 mg/dL (74-106); Magnesium 2.3 mg/dL (1.8-2.4); Potassium 4.1 mmol/L (3.5-5.1); Prealbumin 10.8 mg/dL (20-40); Sodium Level 137 mmol/L (136-145)
[2019-06-23] MEDS: INSULIN -REGULAR HUMAN 50 UNIT/0.5 ML ML SQ SCH ×2 (06:46→19:53)
[2019-06-23] MEDS: HYDROCODONE/APAP 5/325 MG TAB PO PRN (06:50)
[2019-06-23] MEDS: LIDOCAINE 4% PATCH TOP SCH (06:51)
[2019-06-23] MEDS: FUROSEMIDE 20 MG TABLET PO SCH (07:49)
[2019-06-23] MEDS: METFORMIN HCL 500 MG TAB PO SCH (07:50)
[2019-06-23] MEDS: JUVEN PACKET PO SCH ×2 (07:50→19:53)
[2019-06-23] MEDS: CRANBERRY FRUIT EXTRACT 200 MG CAP PO SCH ×2 (07:50→19:52)
[2019-06-23] MEDS: CITALOPRAM 10 MG TABLET PO SCH (07:50)
[2019-06-23] MEDS: FE SULF/FA/VIT B COMP & C TAB PO SCH (07:50)
[2019-06-23] MEDS: GABAPENTIN 300 MG CAP PO SCH ×2 (07:51→19:53)
[2019-06-23] MEDS: VALSARTAN 40 MG TAB PO SCH (07:51)
[2019-06-23] MEDS: MAGNESIUM OXIDE 400 MG TAB PO SCH ×2 (07:51→20:00)
[2019-06-23] MEDS: APIXABAN 5 MG TABLET PO SCH (07:52)
[2019-06-23] MEDS: PROMOD 30 ML DOSE PO SCH ×2 (07:52→19:54)
[2019-06-23] MEDS: POTASSIUM CL SA 10 MEQ TAB PO SCH (07:52)
[2019-06-23] MEDS: FERROUS SULFATE 325 MG TAB PO SCH (07:52)
[2019-06-23] MEDS ORDERED: D50W 25 GM/50 ML SYRINGE/VIAL IV PRN (09:21)
[2019-06-23] MEDS ORDERED: GLUCAGON 1 MG/VIAL IM PRN (09:21)
[2019-06-23] MEDS: BACLOFEN 10 MG TAB PO SCH ×2 (09:33→19:52)
--- NOTE | 2019-06-23 16:45 | R.PN ---
ENCOUNTER DATE AND TIME: 06/23/2019 16:39 (CDT) NAME PRICE ROGERS DATE OF : 1940 DATE OF ADMISSION: 06/16/2019 09:16 (CDT) displaced femoral neck fracture on the leftCHIEF COMPLAINT: Left femoral neck fracture s/p left bipolar hemiarthroplasty. Chronic stroke with left hemiparesis. SUBJECTIVE: Pt denied any Shortness of Breath. Pt denied any depression. WBC 7.3, Hgb 9.8, PLT 217, glucose 95 to 116. Self-propelled wheelchair 250' with minimum assistance and multiple rest breaks. Mr. Rogers did multip le stand and pivot transfers with moderate assistance using a quad cane in the right hand. He reports 6-8/10 pain and muscle spasms in the left hip and thigh. His left hip x-ray shows expected findings post surgically without displacement of hardware. He now has pain patches (4% lidocaine) on the left hip and knee. His tramadol is 100 mg every 4-6 hours, norco 2.5/325 every 4 hours and jb pentin now 600 mg twice daily. VITAL SIGNS Temperature: 98.5 F SBP/DBP: 115/74 Pulse: 67 Resp: 18 MEDICATION ALLERGIES: No Known Drug Allergies (NKDA) ENVIRONMENTAL ALLERGIES: - Substance Allergies None Known - Other Allergies honey bee venom NURSING: - Shower allowing shower - Skin care per protocol PRECAUTIONS: - Weight Bearing Precaution WBAT left LE ACTIVITIES OOB only with supervision THERAPIES: - Dietary and Nutrition Adequate Nutrition. Nutritional Education. Nutritional Supplements. PHYSICAL EXAM - Gen Alert and awake Lying in bed No apparent distress Oriented to: person, time, and place - Skin No skin breakdown. Normacephalic - Eyes No abnormalities - ENMT No abnormalities - Neck No abnormalities - CVS RRR - Chest No abnormalities - Abd Soft - GI Non distended Deferred - No abnormalities - Ext No significant edema - MSK 1-2+/5 weakness in left upper and lower extremity. - Neuro 1-2+/5 weakness in left upper and lower extremity. - Psych Mild anxiety. ASSESSMENT: Pt. is a 79 yo Right-handed white male.On 06/10/2019 he was admitted to [facility] and under went emergency surgery for displaced femoral neck fracture on the left (Unilateral Hip Fracture) by DR DAILEY.Pre-morbidly, Pt. was ind ependent/mod-I in Transfers Control, Locomotion, and Self-Care; and he had good Balance, Safety Aware ness, Social Cognition, and Sphincter Control.Currently, he has deficits of Transfers Control, Locomo tion, Balance, Safety Awareness, and Self-Care.Pt. is now referred to [facility] for acute in-patient rehabilitation in order to maximize patient's functional independence in acti vities of daily living, strength, ROM, and mobility.- Rehab Goal Patient has realistic goal of being discharged at assistance level 6-Maria E to reside at Home with Att endant. MDM/PLAN: - Physical Therapy Decreased range of motion - to improve, our physical therapists will perform initial evaluation of p t's status upon admission and devise an individualized program for increasing patient's Range of [place] on. Gait dysfunction - to improve, our physical therapists will perform initial evaluation of pt's statu s upon admission and devise an individualized program for Gait Training, and Wheel Chair mobility Inability to transfer - to improve, our physical therapists will perform initial evaluation of pt's status upon admission and devise an individualized program for Bed mobility Need for home safety evaluation - to improve, our physical therapists will perform initial evaluatio n of pt's status upon admission and devise an individualized program for Home Evaluation Need in caregiver upon discharge - to improve, our physical therapists will perform initial evaluati on of pt's status upon admission and devise an individualized program for Caregiver Training Edema - to improve, our physical therapists will perform initial evaluation of pt's status upon admi ssion and devise an individualized program for Elevation Training, and Lymphedema Therapy New precaution - to improve, our physical therapists will perform initial evaluation of pt's status upon admission and devise an individualized program for Patient precaution education Poor balance - to improve, our physical therapists will perform initial evaluation of pt's status up on admission and devise an individualized program for Balance Training Weakness - to improve, our physical therapists will perform initial evaluation of pt's status upon a dmission and devise an individualized program for Aquatic Therapy, Neuromuscular Reeducation, and Str engthening Achieving independence - to improve, our physical therapists will perform initial evaluation of pt's status upon admission and devise an individualized program for Community Reintegration Activities - Occupational Therapy ADL deficits - to improve, our occupation therapists will perform initial evaluation of pt's status upon admission and devise an individualized program for Bathing, Bed mobility, Community Reintegratio n, Cooking, Dressing, Eating, Fine Motor Skills, Grooming, Homemaking, Kitchen Mobility, Laundry, Pat ient Education, Safety Awareness, Splinting - Positioning, Transfers(Toilet, Tub, Shower), and Wheel Chair Management Need for childcare worker - to improve, our occupation therapists will perform initial evaluation of pt's status upon admission and devise an individualized program for Caregiver Training Weakness - to improve, our occupation therapists will perform initial evaluation of pt's status upon admission and devise an individualized program for Aquatic Therapy, Balance, Endurance, UE ROM, and UE strengthening - Other See attached MAR (Medication Administration Record) - Anterior Hip Precaution No abduction No active extension No adduction across midline No external rotation No hip flexion >90 degrees No internal rotation - Diet - Liquid Texture Continue Regular - Tube Feed Continue N/A - Diet Type Continue Regular - Posterior Hip Precaution No adduction across midline No external rotation No hip flexion >90 degrees No internal rotation No wheel chair propulsion - Weight Bearing Precaution WBAT left LE - Skin care per protocol - Diet - Solid Texture Continue Regular - Shower allowing shower FUNCTIONAL STATUS: UPDATED AT WEEKLY TEAM CONFERENCE - Walking Same score based on distance walked: 0(N/A) - Wheelchair Same FUNCTIONAL STATUS: - Self-Care A. Eating Maria E B. Grooming Maria E C. Bathing maxA D. Dressing - Upper modA E. Dressing - Lower modA F. Toileting modA - Sphincter Control G. Bladder control Anil H. Bowel control Anil - Transfers Control I. Bed/Chair/Wheelchair modA J. Toilet modA K. Tub/Shower modA - Locomotion L. Walk/Wheelchair (B) modA M. Stairs ADNO - Communication N. Comprehension (B) Maria E O. Expression (B) sup - Social Cognition P. Social Interaction sup Q. Problem Solving sup R. Memory Marai E - Endurance Fair - Balance Poor - Safety Awareness Fair QI SCORES: - Self-Care A. Eating 04-Supervision or touching assistance B. Oral hygiene 04-Supervision or touching assistance C. Toileting hygiene 02-Substantial/maximal assistance E. Shower/bathe self 01-Dependent F. Upper body dressing 02-Substantial/maximal assistance G. Lower body dressing 10-Not attempted due to environmental limitations H. Putting on/taking off footwear 88-Not attempted due to medical condition or safety concerns - Mobility A. Roll left and right 02-Substantial/maximal assistance B. Sit to lying 02-Substantial/maximal assistance C. Lying to sitting on side of bed 02-Substantial/maximal assistance D. Sit to stand 02-Substantial/maximal assistance E. Chair/mly-bo-jauqu transfer 01-Dependent F. Toilet transfer 01-Dependent G. Car transfer 88-Not attempted due to medical condition or safety concerns I. Walk 10 feet 88-Not attempted due to medical condition or safety concerns J. Walk 50 feet with two turns 88-Not attempted due to medical condition or safety concerns K. Walk 150 feet 88-Not attempted due to medical condition or safety concerns L. Walking 10 feet on uneven surfaces 88-Not attempted due to medical condition or safety concerns M. 1 step (curb) 88-Not attempted due to medical condition or safety concerns N. 4 steps 88-Not attempted due to medical condition or safety concerns O. 12 steps 88-Not attempted due to medical condition or safety concerns P. Picking up object 88-Not attempted due to medical condition or safety concerns R. Wheel 50 feet with two turns S. Wheel 150 feet - Bladder and Bowel Bladder continence 0-Always continent Bowel continence 0-Always continent - Endurance Poor - Balance Poor - Safety Awareness Poor CURRENT FUNC. DEFICITS: Self-Care, Mobility, Endurance, Balance, and Safety Awareness SIGNATURE PANEL: (CDT)
[2019-06-23] MEDS: DOCUSATE NA/SENNA CONC 1 TAB PO PRN (19:52)
[2019-06-23] MEDS: ARIPiprazole 5 MG TAB PO SCH (20:00)
[2019-06-23] MEDS: TAMSULOSIN 0.4 MG SR CAP PO SCH (20:00)
[2019-06-23] MEDS: ATORVASTATIN 10 MG TAB PO SCH (20:00)
[2019-06-24] MEDS: METOPROLOL XL 50 MG TAB PO SCH (05:03)
[2019-06-24] MEDS: INSULIN -REGULAR HUMAN 50 UNIT/0.5 ML ML SQ SCH ×2 (08:00→20:00)
[2019-06-24] MEDS: JUVEN PACKET PO SCH ×2 (08:00→20:23)
[2019-06-24] MEDS: GABAPENTIN 300 MG CAP PO SCH ×2 (08:08→20:24)
[2019-06-24] MEDS: CRANBERRY FRUIT EXTRACT 200 MG CAP PO SCH ×2 (08:08→20:23)
[2019-06-24] MEDS: LIDOCAINE 4% PATCH TOP SCH (08:08)
[2019-06-24] MEDS: CITALOPRAM 10 MG TABLET PO SCH (08:10)
[2019-06-24] MEDS: MAGNESIUM OXIDE 400 MG TAB PO SCH ×2 (08:12→20:26)
[2019-06-24] MEDS: APIXABAN 5 MG TABLET PO SCH (08:12)
[2019-06-24] MEDS: TRAMADOL HCL 50 MG TAB PO PRN (08:13)
[2019-06-24] MEDS: POTASSIUM CL SA 10 MEQ TAB PO SCH (08:14)
[2019-06-24] MEDS: FE SULF/FA/VIT B COMP & C TAB PO SCH (08:15)
[2019-06-24] MEDS: FUROSEMIDE 20 MG TABLET PO SCH (08:15)
[2019-06-24] MEDS: FERROUS SULFATE 325 MG TAB PO SCH (08:16)
[2019-06-24] MEDS: METFORMIN HCL 500 MG TAB PO SCH (08:21)
[2019-06-24] MEDS: PROMOD 30 ML DOSE PO SCH ×2 (09:33→20:24)
[2019-06-24] MEDS: VALSARTAN 40 MG TAB PO SCH (09:51)
[2019-06-24] MEDS: BACLOFEN 10 MG TAB PO SCH ×2 (09:51→20:23)
--- NOTE | 2019-06-24 09:56 | P.RH.PN ---
Estimated Length of Stay: 17 Expected Discharge Date: 07/02/19 Discharge Disposition Plan: Home Family Support: Yes Snf Goal: Mobility, Transfers, Self Care Vital Signs: Last Vital Signs Temp 99.0 F 06/24/19 07:19 Pulse 67 06/24/19 09:51 Resp 18 06/24/19 09:13 BP 124/76 06/24/19 09:51 Pulse Ox 99 06/24/19 09:13 Laboratory: Laboratory Last Values WBC 8.3 K/uL (4.3-10.9) 06/23/19 05:26 RBC 3.11 M/uL (4.33-5.43) L 06/23/19 05:26 Hgb 9.2 g/dL (13.6-17.9) L 06/23/19 05:26 Hct 28.0 % (39.6-49.0) L 06/23/19 05:26 MCV 89.8 fL (80-100) 06/23/19 05:26 MCH 29.6 pg (27.0-35.0) 06/23/19 05:26 MCHC 33.0 g/dL (32.0-36.0) 06/23/19 05:26 RDW 16.2 % (12.1-15.2) H 06/23/19 05:26 Plt Count 343 K/uL (152-406) D 06/23/19 05:26 MPV 7.7 fL (7.6-11.3) 06/23/19 05:26 Neutrophils % 63.7 % (41.7-73.7) 06/23/19 05:26 Lymphocytes % 22.3 % (15.3-44.8) 06/23/19 05:26 Monocytes % 8.2 % (3.3-12.3) 06/23/19 05:26 Eosinophils % 5.0 % (0-4.4) H 06/23/19 05:26 Basophils % 0.8 % (0-1.3) 06/23/19 05:26 Absolute Neutrophils 5.3 K/uL (1.8-8.0) 06/23/19 05:26 Absolute Lymphocytes 1.9 K/uL (0.7-4.9) 06/23/19 05:26 Absolute Monocytes 0.7 K/uL (0.1-1.3) 06/23/19 05:26 Absolute Eosinophils 0.4 K/uL (0-0.5) 06/23/19 05:26 Absolute Basophils 0.1 K/uL (0-0.5) 06/23/19 05:26 Sodium 137 mmol/L (136-145) 06/23/19 05:26 Potassium 4.1 mmol/L (3.5-5.1) 06/23/19 05:26 Chloride 103 mmol/L (98-107) 06/23/19 05:26 Carbon Dioxide 30 mmol/L (21-32) 06/23/19 05:26 BUN 17 mg/dL (7-18) 06/23/19 05:26 Creatinine 0.74 mg/dL (0.55-1.3) 06/23/19 05:26 Estimated GFR > 90 mL/min (=/>90) 06/23/19 05:26 Glucose 92 mg/dL (74-106) 06/23/19 05:26 POC Glucose 89 mg/dl (65-120) 06/24/19 07:08 Calcium 8.1 mg/dL (8.5-10.1) L 06/23/19 05:26 Magnesium 2.3 mg/dL (1.8-2.4) 06/23/19 05:26 Albumin 2.6 g/dL (3.4-5.0) L 06/23/19 05:26 Prealbumin 10.8 mg/dL (20-40) L 06/23/19 05:26 Urine Color Yellow 06/16/19 17:35 Urine Appearance Cloudy 06/16/19 17:35 Urine pH 7.0 (5.0-7.0) 06/16/19 17:35 Ur Specific [place] 1.020 (1.005-1.030) 06/16/19 17:35 Glucose (UA)(Auto) Negative (NEG) 06/16/19 17:35 Urine Ketones Negative (NEG) 06/16/19 17:35 Urine Blood Negative (NEG) 06/16/19 17:35 Urine Nitrite Negative (NEG) 06/16/19 17:35 Urine Bilirubin Negative (NEG) 06/16/19 17:35 Urine Urobilinogen 1.0 mg/dL (0.2-1.0) 06/16/19 17:35 Ur Leukocyte Esterase Negative (NEG) 06/16/19 17:35 Urine RBC None seen /HPF (NONE SEEN) 06/16/19 17:35 Urine WBC <5 /HPF (<5) 06/16/19 17:35 Ur Squamous Epith Cells <5 /HPF (NONE SEEN) 06/16/19 17:35 Amorphous Sediment 3+ /HPF (NONE SEEN) H 06/16/19 17:35 Urine Bacteria <20 /HPF (NONE SEEN) 06/16/19 17:35 Urine Mucus 2+ /HPF (NONE SEEN) 06/16/19 17:35 Urine Culture Reflexed Not needed 06/16/19 17:35 Urine Total Protein Negative (NEG) 06/16/19 17:35 Weight: 206 lb Wound Present: No Closed Surgical Incision Present: Yes Negative Pressure Wound Therapy Present: No Physician Update: His is more confused with muscle spasms today while on fortino lofen. His blood work was reviewed and stable. He reports feeling sad. Will increase his antidepressant. He walked 20' with moderate assistance. He is moderately limited by his chronic left body stroke. Functional Improvement: pt is participating well in therapy; however, he has been limited by L hip pain. X-Rays performed and indicated healing is occurring as expected without issues. pt does seem depressed at times; however, he is participating. As pain reduces, pt's performance should enhance. Speech Therapy Update: Mild to Moderate dysarthria and dysfluency with mild cognitive impairment noted. 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 Please see the Rehabilitation Signature page for all necessary signatures.
--- NOTE | 2019-06-24 12:26 | FAST ---
ENCOUNTER DATE AND TIME: 06/24/2019 08:00 (CDT) NAME PRICE ROGERS DATE OF : 1940 DATE OF ADMISSION: 06/16/2019 09:16 (CDT) PHONE: AGE: 79 N# [id number] GENDER: Male ENCOUNTER PHYSICIAN: Dr. Abdirahman Zepeda M.D. ADMISSION DIAGNOSIS: - Orthopaedic Disorders 08 - Unilateral Hip Fracture (08.11) displaced femoral neck fracture on the left. EATING: Not assessed/no information CODE: - ORAL HYGIENE: ORAL HYGIENE - STEP 1: Does the patient complete the activity by him/herself with no assistance (physical, verbal/nonverbal cueing, setup/clean-up)? No. ORAL HYGIENE - STEP 2: Does the patient need only setup/clean-up assistance from one helper? Yes. 1. [id number] ADMISSION PERFORMANCE: Setup or clean-up assistance CODE: 05 TOILETING HYGIENE: Not assessed/no information CODE: - BATHING: SHOWER/BATHE SELF - STEP 1: Does the patient complete the activity by him/herself with no assistance (physical, verbal/nonverbal cueing, setup/clean-up)? No. SHOWER/BATHE SELF - STEP 2: Does the patient need only setup/clean-up assistance from one helper? No. SHOWER/BATHE SELF - STEP 3: Does the patient need only verbal/nonverbal cueing or touching/steadying/contact guard assistance fro m one helper? Yes. 1. [id number] ADMISSION PERFORMANCE: Supervision or touching assistance CODE: 04 DRESSING - UPPER BODY: DRESSING - UPPER BODY - STEP 1: Does the patient complete the activity by him/herself with no assistance (physical, verbal/nonverbal cueing, setup/clean-up)? No. DRESSING - UPPER BODY - STEP 2: Does the patient need only setup/clean-up assistance from one helper? No. DRESSING - UPPER BODY - STEP 3: Does the patient need only verbal/nonverbal cueing or touching/steadying/contact guard assistance fro m one helper? Yes. 1. [id number] ADMISSION PERFORMANCE: Supervision or touching assistance CODE: 04 DRESSING - LOWER BODY: DRESSING - LOWER BODY - STEP 1: Does the patient complete the activity by him/herself with no assistance (physical, verbal/nonverbal cueing, setup/clean-up)? No. DRESSING - LOWER BODY - STEP 2: Does the patient need only setup/clean-up assistance from one helper? No. DRESSING - LOWER BODY - STEP 3: Does the patient need only verbal/nonverbal cueing or touching/steadying/contact guard assistance fro m one helper? No. DRESSING - LOWER BODY - STEP 4: Does the patient need physical assistance - for example lifting or trunk support from one helper - wi th the helper providing less than half of the effort? Yes. 1. [id number] ADMISSION PERFORMANCE: Partial/moderate assistance CODE: 03 PUTTING ON/TAKING OFF FOOTWEAR: FOOTWEAR - STEP 1: Does the patient complete the activity by him/herself with no assistance (physical, verbal/nonverbal cueing, setup/clean-up)? No. FOOTWEAR - STEP 2: Does the patient need only setup/clean-up assistance from one helper? No. FOOTWEAR - STEP 3: Does the patient need only verbal/nonverbal cueing or touching/steadying/contact guard assistance fro m one helper? No. FOOTWEAR - STEP 4: Does the patient need physical assistance - for example lifting or trunk support from one helper - wi th the helper providing less than half of the effort? Yes. 1. [id number] ADMISSION PERFORMANCE: Partial/moderate assistance CODE: 03 DOES THE PATIENT USE A WHEELCHAIR/SCOOTER? CODE: EXPR INDICATE THE TYPE OF WHEELCHAIR/SCOOTER USED: CODE: EXPR INDICATE THE TYPE OF WHEELCHAIR/SCOOTER USED: CODE: EXPR BLADDER AND BOWEL: CODE: EXPR CODE: EXPR SIGNATURE PANEL: The following modified sections: 1. [id number] Admission Performance, 1. [id number] Admission Performance, 1. [id number] Admission Performance, 1. [id number] Admission Performance, 1. [id number] Admission Performance were [electronically] signed by ROXANNE Wiseman on ThuJun 24 2019 12:25:54 GMT-0500 (Central Daylight Time)
[2019-06-24] MEDS: TAMSULOSIN 0.4 MG SR CAP PO SCH (20:25)
[2019-06-24] MEDS: ARIPiprazole 5 MG TAB PO SCH (20:25)
[2019-06-24] MEDS: ATORVASTATIN 10 MG TAB PO SCH (20:25)
[2019-06-24] MEDS: DOCUSATE NA/SENNA CONC 1 TAB PO PRN (20:26)
[2019-06-24] MEDS: ACETAMINOPHEN 500 MG TAB PO PRN (23:53)
--- NOTE | 2019-06-25 02:04 | FAST ---
SHIFT START DATE/TIME: 06/25/2019 19:00 (CDT) SHIFT END DATE/TIME: 06/26/2019 07:00 (CDT) NAME PRICE ROGERS DATE OF : 1940 DATE OF ADMISSION: 06/16/2019 09:16 (CDT) PHONE: AGE: 79 N# [id number] GENDER: Male ENCOUNTER PHYSICIAN: Dr. Abdirahman Zepeda M.D. ADMISSION DIAGNOSIS: - Orthopaedic Disorders 08 - Unilateral Hip Fracture (08.11) displaced femoral neck fracture on the left. EATING: Not assessed/no information CODE: - ORAL HYGIENE: Not assessed/no information CODE: - TOILETING HYGIENE: TOILETING HYGIENE - STEP 1: Does the patient complete the activity by him/herself with no assistance (physical, verbal/nonverbal cueing, setup/clean-up)? No. TOILETING HYGIENE - STEP 2: Does the patient need only setup/clean-up assistance from one helper? No. TOILETING HYGIENE - STEP 3: Does the patient need only verbal/nonverbal cueing or touching/steadying/contact guard assistance fro m one helper? No. TOILETING HYGIENE - STEP 4: Does the patient need physical assistance - for example lifting or trunk support from one helper - wi th the helper providing less than half of the effort? No. TOILETING HYGIENE - STEP 5: Does the patient need physical assistance - for example lifting or trunk support from one helper - wi th the helper providing more than half of the effort? No. TOILETING HYGIENE - STEP 6: Does the helper provide all of the effort? OR Is the assistance of two or more helpers required to co mplete the activity? Yes. 1. [id number] ADMISSION PERFORMANCE: Dependent CODE: 01 BATHING: Not assessed/no information CODE: - DRESSING - UPPER BODY: Not assessed/no information CODE: - DRESSING - LOWER BODY: Not assessed/no information CODE: - PUTTING ON/TAKING OFF FOOTWEAR: Not assessed/no information CODE: - ROLL LEFT AND RIGHT: ROLL LEFT AND RIGHT - STEP 1: Does the patient complete the activity by him/herself with no assistance (physical, verbal/nonverbal cueing, setup/clean-up)? No. ROLL LEFT AND RIGHT - STEP 2: Does the patient need only setup/clean-up assistance from one helper? No. ROLL LEFT AND RIGHT - STEP 3: Does the patient need only verbal/nonverbal cueing or touching/steadying/contact guard assistance fro m one helper? No. ROLL LEFT AND RIGHT - STEP 4: Does the patient need physical assistance - for example lifting or trunk support from one helper - wi th the helper providing less than half of the effort? No. ROLL LEFT AND RIGHT - STEP 5: Does the patient need physical assistance - for example lifting or trunk support from one helper - wi th the helper providing more than half of the effort? Yes. 1. [id number] ADMISSION PERFORMANCE: Substantial/maximal assistance CODE: 02 SIT TO LYING: Not assessed/no information CODE: - LYING TO SITTING: Not assessed/no information CODE: - SIT TO STAND: Not assessed/no information CODE: - TRANSFERS: BED, CHAIR: Not assessed/no information CODE: - TRANSFER TOILET: Not assessed/no information CODE: - TRANSFERS: CAR: Not assessed/no information CODE: - WALK 10 FEET: Not assessed/no information CODE: - 1 STEP (CURB): Not assessed/no information CODE: - PICKING UP OBJECT: Not assessed/no information CODE: - DOES THE PATIENT USE A WHEELCHAIR/SCOOTER? CODE: EXPR WHEEL 50 FEET WITH TWO TURNS: Not assessed/no information CODE: - INDICATE THE TYPE OF WHEELCHAIR/SCOOTER USED: CODE: EXPR WHEEL 150 FEET: Not assessed/no information CODE: - INDICATE THE TYPE OF WHEELCHAIR/SCOOTER USED: CODE: EXPR BLADDER AND BOWEL: H350. BLADDER CONTINENCE (3-DAY ASSESSMENT PERIOD): Always incontinent CODE: 4 H400. BOWEL CONTINENCE (3-DAY ASSESSMENT PERIOD): Frequently incontinent (2 or more episodes of bowel incontinence, but at least one continent bowel mo vement) CODE: 2
[2019-06-25] MEDS: METOPROLOL XL 50 MG TAB PO SCH (05:17)
[2019-06-25] MEDS: INSULIN -REGULAR HUMAN 50 UNIT/0.5 ML ML SQ SCH ×2 (07:02→20:00)
[2019-06-25] MEDS: JUVEN PACKET PO SCH ×2 (08:00→20:00)
[2019-06-25] MEDS: VALSARTAN 40 MG TAB PO SCH (08:00)
[2019-06-25] MEDS: CITALOPRAM 10 MG TABLET PO SCH (08:35)
[2019-06-25] MEDS: LIDOCAINE 4% PATCH TOP SCH (08:35)
[2019-06-25] MEDS: GABAPENTIN 300 MG CAP PO SCH ×2 (08:36→20:38)
[2019-06-25] MEDS: POTASSIUM CL SA 10 MEQ TAB PO SCH (08:36)
[2019-06-25] MEDS: CRANBERRY FRUIT EXTRACT 200 MG CAP PO SCH ×2 (08:36→20:37)
[2019-06-25] MEDS: FERROUS SULFATE 325 MG TAB PO SCH (08:37)
[2019-06-25] MEDS: MAGNESIUM OXIDE 400 MG TAB PO SCH ×2 (08:37→20:37)
[2019-06-25] MEDS: APIXABAN 5 MG TABLET PO SCH (08:37)
[2019-06-25] MEDS: FUROSEMIDE 20 MG TABLET PO SCH (08:37)
[2019-06-25] MEDS: METFORMIN HCL 500 MG TAB PO SCH (08:38)
[2019-06-25] MEDS: FE SULF/FA/VIT B COMP & C TAB PO SCH (08:38)
[2019-06-25] MEDS: TRAMADOL HCL 50 MG TAB PO PRN (08:40)
[2019-06-25] MEDS: PROMOD 30 ML DOSE PO SCH ×2 (10:29→20:40)
[2019-06-25] MEDS: BACLOFEN 10 MG TAB PO SCH ×2 (10:29→20:39)
[2019-06-25] MEDS: ARIPiprazole 5 MG TAB PO SCH (20:38)
[2019-06-25] MEDS: TAMSULOSIN 0.4 MG SR CAP PO SCH (20:39)
[2019-06-25] MEDS: ATORVASTATIN 10 MG TAB PO SCH (20:40)
[2019-06-26] MEDS: METOPROLOL XL 50 MG TAB PO SCH (05:21)
[2019-06-26 06:13] LABS: Urine Appearance CLEAR; Urine Bilirubin NEGATIVE (NEG); Urine Blood NEGATIVE (NEG); Urine Color YELLOW; Urine Glucose NEGATIVE (NEG); Urine Protein NEGATIVE (NEG); Urine Urobilinogen 0.2 mg/dL (0.2-1.0); Urine pH 7.5 (5.0-7.0)
[2019-06-26] MEDS: LIDOCAINE 4% PATCH TOP SCH (06:44)
[2019-06-26 07:09] LABS: Urine Bacteria <20 /HPF (NONE SEEN); Urine Culture Reflex Order NOT NEEDED; Urine RBC <5 /HPF (NONE SEEN)
[2019-06-26] MEDS: INSULIN -REGULAR HUMAN 50 UNIT/0.5 ML ML SQ SCH ×2 (07:09→20:00)
[2019-06-26] MEDS: APIXABAN 5 MG TABLET PO SCH (07:10)
[2019-06-26] MEDS: CRANBERRY FRUIT EXTRACT 200 MG CAP PO SCH ×2 (07:10→19:29)
[2019-06-26] MEDS: POTASSIUM CL SA 10 MEQ TAB PO SCH (07:11)
[2019-06-26] MEDS: GABAPENTIN 300 MG CAP PO SCH ×2 (07:11→19:30)
[2019-06-26] MEDS: FE SULF/FA/VIT B COMP & C TAB PO SCH (07:11)
[2019-06-26] MEDS: MAGNESIUM OXIDE 400 MG TAB PO SCH ×2 (07:11→20:00)
[2019-06-26] MEDS: FERROUS SULFATE 325 MG TAB PO SCH (07:12)
[2019-06-26] MEDS: BACLOFEN 10 MG TAB PO SCH ×2 (07:12→19:30)
[2019-06-26] MEDS: CITALOPRAM 10 MG TABLET PO SCH (07:12)
[2019-06-26] MEDS: FUROSEMIDE 20 MG TABLET PO SCH (07:12)
[2019-06-26] MEDS: METFORMIN HCL 500 MG TAB PO SCH (07:12)
[2019-06-26] MEDS: VALSARTAN 40 MG TAB PO SCH (07:14)
[2019-06-26] MEDS: JUVEN PACKET PO SCH ×2 (07:15→19:30)
[2019-06-26] MEDS: PROMOD 30 ML DOSE PO SCH ×2 (07:15→19:31)
[2019-06-26] MEDS: TRAMADOL HCL 50 MG TAB PO PRN ×2 (07:34→13:53)
[2019-06-26] MEDS: ARIPiprazole 5 MG TAB PO SCH (20:00)
[2019-06-26] MEDS: ATORVASTATIN 10 MG TAB PO SCH (20:01)
[2019-06-26] MEDS: TAMSULOSIN 0.4 MG SR CAP PO SCH (20:01)
[2019-06-27] MEDS: METOPROLOL XL 50 MG TAB PO SCH (05:07)
[2019-06-27] MEDS: JUVEN PACKET PO SCH (08:00)
[2019-06-27] MEDS: INSULIN -REGULAR HUMAN 50 UNIT/0.5 ML ML SQ SCH ×2 (08:00→19:59)
[2019-06-27] MEDS: PROMOD 30 ML DOSE PO SCH ×2 (08:00→19:59)
[2019-06-27] MEDS: LIDOCAINE 4% PATCH TOP SCH (08:17)
[2019-06-27] MEDS: POTASSIUM CL SA 10 MEQ TAB PO SCH (08:18)
[2019-06-27] MEDS: CITALOPRAM 10 MG TABLET PO SCH (08:18)
[2019-06-27] MEDS: CRANBERRY FRUIT EXTRACT 200 MG CAP PO SCH ×2 (08:18→18:59)
[2019-06-27] MEDS: GABAPENTIN 300 MG CAP PO SCH ×2 (08:19→18:59)
[2019-06-27] MEDS: FERROUS SULFATE 325 MG TAB PO SCH (08:19)
[2019-06-27] MEDS: TRAMADOL HCL 50 MG TAB PO PRN ×3 (08:20→18:58)
[2019-06-27] MEDS: FUROSEMIDE 20 MG TABLET PO SCH (08:20)
[2019-06-27] MEDS: METFORMIN HCL 500 MG TAB PO SCH (08:21)
[2019-06-27] MEDS: APIXABAN 5 MG TABLET PO SCH (08:21)
[2019-06-27] MEDS: FE SULF/FA/VIT B COMP & C TAB PO SCH (08:21)
[2019-06-27] MEDS: MAGNESIUM OXIDE 400 MG TAB PO SCH ×2 (08:22→19:59)
[2019-06-27] MEDS: VALSARTAN 40 MG TAB PO SCH (10:15)
[2019-06-27] MEDS: BACLOFEN 10 MG TAB PO SCH ×2 (10:16→18:59)
--- NOTE | 2019-06-27 17:34 | R.PN ---
ENCOUNTER DATE AND TIME: 06/27/2019 17:19 (CDT) NAME PRICE ROGERS DATE OF : 1940 DATE OF ADMISSION: 06/16/2019 09:16 (CDT) displaced femoral neck fracture on the leftCHIEF COMPLAINT: Left femoral neck fracture s/p left bipolar hemiarthroplasty. Chronic stroke with left hemiparesis. SUBJECTIVE: Pt denied any Shortness of Breath. Pt denied any depression. WBC 7.3, Hgb 9.8, PLT 217, glucose 95 to 116. He ambulated 110' with minimum assistance using a rolling walker. Self-propelled wheelchair 250' with minimum assistance and multiple rest breaks. Mr. Rogers did multiple stand and pivot transfers with m oderate assistance using a quad cane in the right hand. He reports 3-4/10 pain less and muscle spasms in the left hip and thigh. His left hip x-ray shows exp ected findings post surgically without displacement of hardware. He now has pain patches (4% lidocain e) on the left hip and knee. His tramadol is 100 mg every 4-6 hours, norco 2.5/325 every 4 hours was stopped. He is on gabapentin 600 mg twice daily. Glucose range 100 to 160. VITAL SIGNS Temperature: 98.9 F SBP/DBP: 128/65 Pulse: 75 Resp: 16 MEDICATION ALLERGIES: No Known Drug Allergies (NKDA) ENVIRONMENTAL ALLERGIES: - Substance Allergies None Known - Other Allergies honey bee venom NURSING: - Shower allowing shower - Skin care per protocol PRECAUTIONS: - Weight Bearing Precaution WBAT left LE ACTIVITIES OOB only with supervision THERAPIES: - Dietary and Nutrition Adequate Nutrition. Nutritional Education. Nutritional Supplements. PHYSICAL EXAM - Gen Alert and awake Lying in bed No apparent distress Oriented to: person, time, and place - Skin No skin breakdown. Normacephalic - Eyes No abnormalities - ENMT No abnormalities - Neck No abnormalities - CVS RRR - Chest No abnormalities - Abd Soft - GI Non distended Deferred - No abnormalities - Ext No significant edema - MSK 1-2+/5 weakness in left upper and lower extremity. - Neuro 1-2+/5 weakness in left upper and lower extremity. - Psych Mild anxiety. ASSESSMENT: Pt. is a 79 yo Right-handed white male.On 06/10/2019 he was admitted to [facility] and under went emergency surgery for displaced femoral neck fracture on the left (Unilateral Hip Fracture) by DR DAILEY.Pre-morbidly, Pt. was ind ependent/mod-I in Transfers Control, Locomotion, and Self-Care; and he had good Balance, Safety Aware ness, Social Cognition, and Sphincter Control.Currently, he has deficits of Transfers Control, Locomo tion, Balance, Safety Awareness, and Self-Care.Pt. is now referred to [facility] for acute in-patient rehabilitation in order to maximize patient's functional independence in acti vities of daily living, strength, ROM, and mobility.- Rehab Goal Patient has realistic goal of being discharged at assistance level 6-Maria E to reside at Home with Att endant. MDM/PLAN: - Physical Therapy Decreased range of motion - to improve, our physical therapists will perform initial evaluation of p t's status upon admission and devise an individualized program for increasing patient's Range of [place] on. Gait dysfunction - to improve, our physical therapists will perform initial evaluation of pt's statu s upon admission and devise an individualized program for Gait Training, and Wheel Chair mobility Inability to transfer - to improve, our physical therapists will perform initial evaluation of pt's status upon admission and devise an individualized program for Bed mobility Need for home safety evaluation - to improve, our physical therapists will perform initial evaluatio n of pt's status upon admission and devise an individualized program for Home Evaluation Need in caregiver upon discharge - to improve, our physical therapists will perform initial evaluati on of pt's status upon admission and devise an individualized program for Caregiver Training Edema - to improve, our physical therapists will perform initial evaluation of pt's status upon admi ssion and devise an individualized program for Elevation Training, and Lymphedema Therapy New precaution - to improve, our physical therapists will perform initial evaluation of pt's status upon admission and devise an individualized program for Patient precaution education Poor balance - to improve, our physical therapists will perform initial evaluation of pt's status up on admission and devise an individualized program for Balance Training Weakness - to improve, our physical therapists will perform initial evaluation of pt's status upon a dmission and devise an individualized program for Aquatic Therapy, Neuromuscular Reeducation, and Str engthening Achieving independence - to improve, our physical therapists will perform initial evaluation of pt's status upon admission and devise an individualized program for Community Reintegration Activities - Occupational Therapy ADL deficits - to improve, our occupation therapists will perform initial evaluation of pt's status upon admission and devise an individualized program for Bathing, Bed mobility, Community Reintegratio n, Cooking, Dressing, Eating, Fine Motor Skills, Grooming, Homemaking, Kitchen Mobility, Laundry, Pat ient Education, Safety Awareness, Splinting - Positioning, Transfers(Toilet, Tub, Shower), and Wheel Chair Management Need for pediatric acute care unit nurse - to improve, our occupation therapists will perform initial evaluation of pt's status upon admission and devise an individualized program for Caregiver Training Weakness - to improve, our occupation therapists will perform initial evaluation of pt's status upon admission and devise an individualized program for Aquatic Therapy, Balance, Endurance, UE ROM, and UE strengthening - Other See attached MAR (Medication Administration Record) - Anterior Hip Precaution No abduction No active extension No adduction across midline No external rotation No hip flexion >90 degrees No internal rotation - Diet - Liquid Texture Continue Regular - Tube Feed Continue N/A - Diet Type Continue Regular - Posterior Hip Precaution No adduction across midline No external rotation No hip flexion >90 degrees No internal rotation No wheel chair propulsion - Weight Bearing Precaution WBAT left LE - Skin care per protocol - Diet - Solid Texture Continue Regular - Shower allowing shower FUNCTIONAL STATUS: UPDATED AT WEEKLY TEAM CONFERENCE - Walking Same score based on distance walked: 0(N/A) - Wheelchair Same FUNCTIONAL STATUS: - Self-Care A. Eating Maria E B. Grooming Maria E C. Bathing maxA D. Dressing - Upper modA E. Dressing - Lower modA F. Toileting modA - Sphincter Control G. Bladder control Anil H. Bowel control Anil - Transfers Control I. Bed/Chair/Wheelchair modA J. Toilet modA K. Tub/Shower modA - Locomotion L. Walk/Wheelchair (B) modA M. Stairs ADNO - Communication N. Comprehension (B) Maria E O. Expression (B) sup - Social Cognition P. Social Interaction sup Q. Problem Solving sup R. Memory Maria E - Endurance Fair - Balance Poor - Safety Awareness Fair QI SCORES: - Self-Care A. Eating 04-Supervision or touching assistance B. Oral hygiene 04-Supervision or touching assistance C. Toileting hygiene 02-Substantial/maximal assistance E. Shower/bathe self 01-Dependent F. Upper body dressing 02-Substantial/maximal assistance G. Lower body dressing 10-Not attempted due to environmental limitations H. Putting on/taking off footwear 88-Not attempted due to medical condition or safety concerns - Mobility A. Roll left and right 02-Substantial/maximal assistance B. Sit to lying 02-Substantial/maximal assistance C. Lying to sitting on side of bed 02-Substantial/maximal assistance D. Sit to stand 02-Substantial/maximal assistance E. Chair/[id number] transfer 01-Dependent F. Toilet transfer 01-Dependent G. Car transfer 88-Not attempted due to medical condition or safety concerns I. Walk 10 feet 88-Not attempted due to medical condition or safety concerns J. Walk 50 feet with two turns 88-Not attempted due to medical condition or safety concerns K. Walk 150 feet 88-Not attempted due to medical condition or safety concerns L. Walking 10 feet on uneven surfaces 88-Not attempted due to medical condition or safety concerns M. 1 step (curb) 88-Not attempted due to medical condition or safety concerns N. 4 steps 88-Not attempted due to medical condition or safety concerns O. 12 steps 88-Not attempted due to medical condition or safety concerns P. Picking up object 88-Not attempted due to medical condition or safety concerns R. Wheel 50 feet with two turns S. Wheel 150 feet - Bladder and Bowel Bladder continence 0-Always continent Bowel continence 0-Always continent - Endurance Poor - Balance Poor - Safety Awareness Poor CURRENT FUNC. DEFICITS: Self-Care, Mobility, Endurance, Balance, and Safety Awareness SIGNATURE PANEL: (CDT)
[2019-06-27] MEDS: ATORVASTATIN 10 MG TAB PO SCH (19:59)
[2019-06-27] MEDS: TAMSULOSIN 0.4 MG SR CAP PO SCH (19:59)
[2019-06-28] MEDS: METOPROLOL XL 50 MG TAB PO SCH (05:38)
[2019-06-28] MEDS: INSULIN -REGULAR HUMAN 50 UNIT/0.5 ML ML SQ SCH ×2 (07:06→20:00)
[2019-06-28] MEDS: MAGNESIUM OXIDE 400 MG TAB PO SCH ×2 (07:20→20:47)
[2019-06-28] MEDS: CITALOPRAM 10 MG TABLET PO SCH (07:20)
[2019-06-28] MEDS: VALSARTAN 40 MG TAB PO SCH ×2 (07:21→12:20)
[2019-06-28] MEDS: APIXABAN 5 MG TABLET PO SCH (07:21)
[2019-06-28] MEDS: METFORMIN HCL 500 MG TAB PO SCH (07:21)
[2019-06-28] MEDS: POTASSIUM CL SA 10 MEQ TAB PO SCH (07:21)
[2019-06-28] MEDS: BACLOFEN 10 MG TAB PO SCH ×2 (07:21→20:48)
[2019-06-28] MEDS: FE SULF/FA/VIT B COMP & C TAB PO SCH (07:22)
[2019-06-28] MEDS: FERROUS SULFATE 325 MG TAB PO SCH (07:22)
[2019-06-28] MEDS: CRANBERRY FRUIT EXTRACT 200 MG CAP PO SCH ×2 (07:22→20:48)
[2019-06-28] MEDS: GABAPENTIN 300 MG CAP PO SCH ×2 (07:22→20:48)
[2019-06-28] MEDS: FUROSEMIDE 20 MG TABLET PO SCH (07:23)
[2019-06-28] MEDS: LIDOCAINE 4% PATCH TOP SCH (07:23)
[2019-06-28] MEDS: PROMOD 30 ML DOSE PO SCH ×2 (07:25→20:48)
[2019-06-28] MEDS: TRAMADOL HCL 50 MG TAB PO PRN (07:59)
[2019-06-28] MEDS: ATORVASTATIN 10 MG TAB PO SCH (20:47)
[2019-06-28] MEDS: DOCUSATE NA/SENNA CONC 1 TAB PO PRN (20:48)
[2019-06-28] MEDS: TAMSULOSIN 0.4 MG SR CAP PO SCH (20:48)
[2019-06-28] MEDS: CIPROFLOXACIN HCL 500 MG TAB PO SCH (21:38)
[2019-06-29] MEDS: METOPROLOL XL 50 MG TAB PO SCH (05:02)
[2019-06-29] MEDS: INSULIN -REGULAR HUMAN 50 UNIT/0.5 ML ML SQ SCH ×2 (07:05→20:00)
[2019-06-29] MEDS: VALSARTAN 40 MG TAB PO SCH ×2 (08:00→10:22)
[2019-06-29] MEDS: MAGNESIUM OXIDE 400 MG TAB PO SCH ×2 (08:03→20:11)
[2019-06-29] MEDS: LIDOCAINE 4% PATCH TOP SCH (08:03)
[2019-06-29] MEDS: CRANBERRY FRUIT EXTRACT 200 MG CAP PO SCH ×2 (08:05→20:10)
[2019-06-29] MEDS: CITALOPRAM 10 MG TABLET PO SCH (08:05)
[2019-06-29] MEDS: FUROSEMIDE 20 MG TABLET PO SCH (08:06)
[2019-06-29] MEDS: FE SULF/FA/VIT B COMP & C TAB PO SCH (08:06)
[2019-06-29] MEDS: METFORMIN HCL 500 MG TAB PO SCH (08:06)
[2019-06-29] MEDS: FERROUS SULFATE 325 MG TAB PO SCH (08:07)
[2019-06-29] MEDS: TRAMADOL HCL 50 MG TAB PO PRN (08:07)
[2019-06-29] MEDS: APIXABAN 5 MG TABLET PO SCH (08:07)
[2019-06-29] MEDS: GABAPENTIN 300 MG CAP PO SCH ×2 (08:08→20:10)
[2019-06-29] MEDS: CIPROFLOXACIN HCL 500 MG TAB PO SCH ×2 (08:08→20:10)
[2019-06-29] MEDS: POTASSIUM CL SA 10 MEQ TAB PO SCH (08:08)
--- NOTE | 2019-06-29 08:55 | CON ---
Date of Consultation: 06/22/2019 Type Of Service: Psychiatric consult. Chief Complaint: Mr. male with a psychiatric history significant for major depressive dis order. Patent is currently on Celexa 40 mg. Patient has been evaluated on account of worsening depr essive symptoms. Patient was seen on the inpatient rehab unit post left hip fracture and left hemipa resis. On interview, patient reports depressed mood for most part of the day, anhedonia, helplessness, and hopelessness. He denied suicidal ideation. His appetite is fair and sleep is good . Denies past episode of suicidal attempt. Denies past episode of psychiatric inpatient hospitaliza tion. Did admit to medical situation and inability to perform daily activity as mobility is significantly impaired by his medical issues. Patient states he is a , on July 26, 2015, had some complications of dementia. He has 3 sons and 7 grandchildren. He worked for ___ years ago. He states his last . Patient reports auditory and visual hallucinations, w hich are not commanding had some episodes in the past. No history of bipolar symptoms. N o history of panic attacks. Physical Examination: Vital Signs: Blood pressure 100/69, pulse 109, temperature 98.9 degrees Fahrenheit, O2 saturation is 95%, respiratory rate is 16. Mental status: Patient is fairly well-nourished male, lying in bed, acute dist ress. Cooperative with interview . Speech is functioning with normal rate, rhythm, and vo lume. Memory and concentration fair. Mood is described as depressed. Affect is mood congruent, but restricted. Thought process, linear, at times circumstantial. Thought content, no delusional think ing. No suicidal or homicidal ideation. No rumination or obsession . Reports auditory rasmussen llucination. No visual hallucination. No tactile hallucination. Fund of knowledge average. Langua ge skills, fair. Diagnoses: 1.Major depressive disorder, recurrent severe with psychotic features. 2. . Plan: 1.We will continue Celexa 40 mg p.o. daily for depressive symptoms. 2.We will start Abilify 2.5 mg p.o. daily for psychotic features . 45 minutes spent interviewing patient, reviewing charts as well as discussing with caregiver. ALYSSA Voice ID: [id number] Report ID: [id number]
[2019-06-29] MEDS: PROMOD 30 ML DOSE PO SCH ×2 (10:22→20:11)
[2019-06-29] MEDS: BACLOFEN 10 MG TAB PO SCH ×3 (10:22→20:11)
--- NOTE | 2019-06-29 11:56 | FAST ---
ENCOUNTER DATE AND TIME: 06/29/2019 08:00 (CDT) NAME PRICE ROGERS DATE OF : 1940 DATE OF ADMISSION: 06/16/2019 09:16 (CDT) PHONE: AGE: 79 N# [id number] GENDER: Male ENCOUNTER PHYSICIAN: Dr. Abdirahman Zepeda M.D. ADMISSION DIAGNOSIS: - Orthopaedic Disorders 08 - Unilateral Hip Fracture (08.11) displaced femoral neck fracture on the left. EATING: Not assessed/no information CODE: - ORAL HYGIENE: ORAL HYGIENE - STEP 1: Does the patient complete the activity by him/herself with no assistance (physical, verbal/nonverbal cueing, setup/clean-up)? No. ORAL HYGIENE - STEP 2: Does the patient need only setup/clean-up assistance from one helper? Yes. 1. [id number] ADMISSION PERFORMANCE: Setup or clean-up assistance CODE: 05 TOILETING HYGIENE: Not assessed/no information CODE: - BATHING: SHOWER/BATHE SELF - STEP 1: Does the patient complete the activity by him/herself with no assistance (physical, verbal/nonverbal cueing, setup/clean-up)? No. SHOWER/BATHE SELF - STEP 2: Does the patient need only setup/clean-up assistance from one helper? No. SHOWER/BATHE SELF - STEP 3: Does the patient need only verbal/nonverbal cueing or touching/steadying/contact guard assistance fro m one helper? Yes. 1. [id number] ADMISSION PERFORMANCE: Supervision or touching assistance CODE: 04 DRESSING - UPPER BODY: DRESSING - UPPER BODY - STEP 1: Does the patient complete the activity by him/herself with no assistance (physical, verbal/nonverbal cueing, setup/clean-up)? No. DRESSING - UPPER BODY - STEP 2: Does the patient need only setup/clean-up assistance from one helper? No. DRESSING - UPPER BODY - STEP 3: Does the patient need only verbal/nonverbal cueing or touching/steadying/contact guard assistance fro m one helper? Yes. 1. [id number] ADMISSION PERFORMANCE: Supervision or touching assistance CODE: 04 DRESSING - LOWER BODY: DRESSING - LOWER BODY - STEP 1: Does the patient complete the activity by him/herself with no assistance (physical, verbal/nonverbal cueing, setup/clean-up)? No. DRESSING - LOWER BODY - STEP 2: Does the patient need only setup/clean-up assistance from one helper? No. DRESSING - LOWER BODY - STEP 3: Does the patient need only verbal/nonverbal cueing or touching/steadying/contact guard assistance fro m one helper? No. DRESSING - LOWER BODY - STEP 4: Does the patient need physical assistance - for example lifting or trunk support from one helper - wi th the helper providing less than half of the effort? Yes. 1. [id number] ADMISSION PERFORMANCE: Partial/moderate assistance CODE: 03 PUTTING ON/TAKING OFF FOOTWEAR: FOOTWEAR - STEP 1: Does the patient complete the activity by him/herself with no assistance (physical, verbal/nonverbal cueing, setup/clean-up)? No. FOOTWEAR - STEP 2: Does the patient need only setup/clean-up assistance from one helper? No. FOOTWEAR - STEP 3: Does the patient need only verbal/nonverbal cueing or touching/steadying/contact guard assistance fro m one helper? Yes. 1. [id number] ADMISSION PERFORMANCE: Supervision or touching assistance CODE: 04 DOES THE PATIENT USE A WHEELCHAIR/SCOOTER? CODE: EXPR INDICATE THE TYPE OF WHEELCHAIR/SCOOTER USED: CODE: EXPR INDICATE THE TYPE OF WHEELCHAIR/SCOOTER USED: CODE: EXPR BLADDER AND BOWEL: CODE: EXPR CODE: EXPR SIGNATURE PANEL: The following modified sections: 1. [id number] Admission Performance, 1. [id number] Admission Performance, 1. [id number] Admission Performance, 1. [id number] Admission Performance, 1. [id number] Admission Performance were [electronically] signed by ROXANNE Wiseman on ThuJun 29 2019 11:56:02 GMT-0500 (Central Daylight Time)
--- NOTE | 2019-06-29 13:55 | R.PN ---
ENCOUNTER DATE AND TIME: 06/29/2019 13:46 (CDT) NAME PRICE ROGERS DATE OF : 1940 DATE OF ADMISSION: 06/16/2019 09:16 (CDT) displaced femoral neck fracture on the leftCHIEF COMPLAINT: Left femoral neck fracture s/p left bipolar hemiarthroplasty. Chronic stroke with left hemiparesis. SUBJECTIVE: Pt denied any Shortness of Breath. Pt denied any depression. WBC 7.3, Hgb 9.8, PLT 217, glucose 95 to 116. He ambulated 250' with minimum assistance using a rolling walker. Self-propelled wheelchair 250' with minimum assistance and multiple rest breaks. Mr. Rogers did multiple stand and pivot transfers with m oderate assistance using a quad cane in the right hand. He reports 3-4/10 pain less and less muscle spasms in the left hip and thigh. His left hip x-ray show s expected findings post surgically without displacement of hardware. He now has pain patches (4% lid ocaine) on the left hip and knee. His tramadol is decreased to 50 mg every 4-6 hours, norco 2.5/325 every 4 hours was stopped. He is on gabapentin 600 mg twice daily. Glucose range 100 to 160. VITAL SIGNS Temperature: 98.6 F SBP/DBP: 125/69 Pulse: 72 Resp: 16 MEDICATION ALLERGIES: No Known Drug Allergies (NKDA) ENVIRONMENTAL ALLERGIES: - Substance Allergies None Known - Other Allergies honey bee venom NURSING: - Shower allowing shower - Skin care per protocol PRECAUTIONS: - Weight Bearing Precaution WBAT left LE ACTIVITIES OOB only with supervision THERAPIES: - Dietary and Nutrition Adequate Nutrition. Nutritional Education. Nutritional Supplements. PHYSICAL EXAM - Gen Alert and awake Lying in bed No apparent distress Oriented to: person, time, and place - Skin No skin breakdown. Normacephalic - Eyes No abnormalities - ENMT No abnormalities - Neck No abnormalities - CVS RRR - Chest No abnormalities - Abd Soft - GI Non distended Deferred - No abnormalities - Ext No significant edema - MSK 1-2+/5 weakness in left upper and lower extremity. - Neuro 1-2+/5 weakness in left upper and lower extremity. - Psych Mild anxiety. ASSESSMENT: Pt. is a 79 yo Right-handed white male.On 06/10/2019 he was admitted to [facility] and under went emergency surgery for displaced femoral neck fracture on the left (Unilateral Hip Fracture) by DR DAILEY.Pre-morbidly, Pt. was ind ependent/mod-I in Transfers Control, Locomotion, and Self-Care; and he had good Balance, Safety Aware ness, Social Cognition, and Sphincter Control.Currently, he has deficits of Transfers Control, Locomo tion, Balance, Safety Awareness, and Self-Care.Pt. is now referred to [facility] for acute in-patient rehabilitation in order to maximize patient's functional independence in acti vities of daily living, strength, ROM, and mobility.- Rehab Goal Patient has realistic goal of being discharged at assistance level 6-Maria E to reside at Home with Att endant. MDM/PLAN: - Physical Therapy Decreased range of motion - to improve, our physical therapists will perform initial evaluation of p t's status upon admission and devise an individualized program for increasing patient's Range of [place] on. Gait dysfunction - to improve, our physical therapists will perform initial evaluation of pt's statu s upon admission and devise an individualized program for Gait Training, and Wheel Chair mobility Inability to transfer - to improve, our physical therapists will perform initial evaluation of pt's status upon admission and devise an individualized program for Bed mobility Need for home safety evaluation - to improve, our physical therapists will perform initial evaluatio n of pt's status upon admission and devise an individualized program for Home Evaluation Need in caregiver upon discharge - to improve, our physical therapists will perform initial evaluati on of pt's status upon admission and devise an individualized program for Caregiver Training Edema - to improve, our physical therapists will perform initial evaluation of pt's status upon admi ssion and devise an individualized program for Elevation Training, and Lymphedema Therapy New precaution - to improve, our physical therapists will perform initial evaluation of pt's status upon admission and devise an individualized program for Patient precaution education Poor balance - to improve, our physical therapists will perform initial evaluation of pt's status up on admission and devise an individualized program for Balance Training Weakness - to improve, our physical therapists will perform initial evaluation of pt's status upon a dmission and devise an individualized program for Aquatic Therapy, Neuromuscular Reeducation, and Str engthening Achieving independence - to improve, our physical therapists will perform initial evaluation of pt's status upon admission and devise an individualized program for Community Reintegration Activities - Occupational Therapy ADL deficits - to improve, our occupation therapists will perform initial evaluation of pt's status upon admission and devise an individualized program for Bathing, Bed mobility, Community Reintegratio n, Cooking, Dressing, Eating, Fine Motor Skills, Grooming, Homemaking, Kitchen Mobility, Laundry, Pat ient Education, Safety Awareness, Splinting - Positioning, Transfers(Toilet, Tub, Shower), and Wheel Chair Management Need for health care specialist - to improve, our occupation therapists will perform initial evaluation of pt's status upon admission and devise an individualized program for Caregiver Training Weakness - to improve, our occupation therapists will perform initial evaluation of pt's status upon admission and devise an individualized program for Aquatic Therapy, Balance, Endurance, UE ROM, and UE strengthening - Other See attached MAR (Medication Administration Record) - Anterior Hip Precaution No abduction No active extension No adduction across midline No external rotation No hip flexion >90 degrees No internal rotation - Diet - Liquid Texture Continue Regular - Tube Feed Continue N/A - Diet Type Continue Regular - Posterior Hip Precaution No adduction across midline No external rotation No hip flexion >90 degrees No internal rotation No wheel chair propulsion - Weight Bearing Precaution WBAT left LE - Skin care per protocol - Diet - Solid Texture Continue Regular - Shower allowing shower FUNCTIONAL STATUS: UPDATED AT WEEKLY TEAM CONFERENCE - Walking Same score based on distance walked: 0(N/A) - Wheelchair Same FUNCTIONAL STATUS: - Self-Care A. Eating Maria E B. Grooming Maria E C. Bathing maxA D. Dressing - Upper modA E. Dressing - Lower modA F. Toileting modA - Sphincter Control G. Bladder control Anil H. Bowel control Anil - Transfers Control I. Bed/Chair/Wheelchair modA J. Toilet modA K. Tub/Shower modA - Locomotion L. Walk/Wheelchair (B) modA M. Stairs ADNO - Communication N. Comprehension (B) Maria E O. Expression (B) sup - Social Cognition P. Social Interaction sup Q. Problem Solving sup R. Memory Maria E - Endurance Fair - Balance Poor - Safety Awareness Fair QI SCORES: - Self-Care A. Eating 04-Supervision or touching assistance B. Oral hygiene 04-Supervision or touching assistance C. Toileting hygiene 02-Substantial/maximal assistance E. Shower/bathe self 01-Dependent F. Upper body dressing 02-Substantial/maximal assistance G. Lower body dressing 10-Not attempted due to environmental limitations H. Putting on/taking off footwear 88-Not attempted due to medical condition or safety concerns - Mobility A. Roll left and right 02-Substantial/maximal assistance B. Sit to lying 02-Substantial/maximal assistance C. Lying to sitting on side of bed 02-Substantial/maximal assistance D. Sit to stand 02-Substantial/maximal assistance E. Chair/[id number] transfer 01-Dependent F. Toilet transfer 01-Dependent G. Car transfer 88-Not attempted due to medical condition or safety concerns I. Walk 10 feet 88-Not attempted due to medical condition or safety concerns J. Walk 50 feet with two turns 88-Not attempted due to medical condition or safety concerns K. Walk 150 feet 88-Not attempted due to medical condition or safety concerns L. Walking 10 feet on uneven surfaces 88-Not attempted due to medical condition or safety concerns M. 1 step (curb) 88-Not attempted due to medical condition or safety concerns N. 4 steps 88-Not attempted due to medical condition or safety concerns O. 12 steps 88-Not attempted due to medical condition or safety concerns P. Picking up object 88-Not attempted due to medical condition or safety concerns R. Wheel 50 feet with two turns S. Wheel 150 feet - Bladder and Bowel Bladder continence 0-Always continent Bowel continence 0-Always continent - Endurance Poor - Balance Poor - Safety Awareness Poor CURRENT FUNC. DEFICITS: Self-Care, Mobility, Endurance, Balance, and Safety Awareness SIGNATURE PANEL: (CDT)
[2019-06-29] MEDS: TAMSULOSIN 0.4 MG SR CAP PO SCH (20:10)
[2019-06-29] MEDS: MELATONIN 3 MG TABLET PO PRN (20:10)
[2019-06-29] MEDS: ATORVASTATIN 10 MG TAB PO SCH (20:11)
[2019-06-29] MEDS: NYSTATIN PWDR 100000 UNIT/GM TOP SCH (20:12)
[2019-06-30] MEDS: METOPROLOL XL 50 MG TAB PO SCH (05:22)
[2019-06-30 06:24] LABS: Absolute Lymphocytes (CBC) 1.4 K/uL (0.7-4.9); Basophils % 0.6 % (0-1.3); Hematocrit 29.9 % (39.6-49.0); Lymphocytes % 22.1 % (15.3-44.8); MPV 7.6 fL (7.6-11.3); RBC Red Blood Cell Count 3.33 M/uL (4.33-5.43)
[2019-06-30 07:23] LABS: Albumin 2.6 g/dL (3.4-5.0); BUN Blood Urea Nitrogen 16 mg/dL (7-18); Bicarbonate 30 mmol/L (21-32); Glucose Level 103 mg/dL (74-106); Magnesium 2.2 mg/dL (1.8-2.4); Potassium 4.2 mmol/L (3.5-5.1); Sodium Level 140 mmol/L (136-145)
[2019-06-30] MEDS: GABAPENTIN 300 MG CAP PO SCH ×2 (08:00→19:36)
[2019-06-30] MEDS: INSULIN -REGULAR HUMAN 50 UNIT/0.5 ML ML SQ SCH ×2 (08:00→19:46)
[2019-06-30] MEDS: LIDOCAINE 4% PATCH TOP SCH ×2 (08:00→08:19)
[2019-06-30] MEDS: VALSARTAN 40 MG TAB PO SCH (08:00)
[2019-06-30] MEDS: CRANBERRY FRUIT EXTRACT 200 MG CAP PO SCH ×2 (08:19→19:35)
[2019-06-30] MEDS: BACLOFEN 10 MG TAB PO SCH ×2 (08:20→19:38)
[2019-06-30] MEDS: APIXABAN 5 MG TABLET PO SCH (08:20)
[2019-06-30] MEDS: POTASSIUM CL SA 10 MEQ TAB PO SCH (08:20)
[2019-06-30] MEDS: CITALOPRAM 10 MG TABLET PO SCH (08:20)
[2019-06-30] MEDS: MAGNESIUM OXIDE 400 MG TAB PO SCH ×2 (08:21→19:35)
[2019-06-30] MEDS: TRAMADOL HCL 50 MG TAB PO PRN ×2 (08:21→12:38)
[2019-06-30] MEDS: FUROSEMIDE 20 MG TABLET PO SCH (08:22)
[2019-06-30] MEDS: METFORMIN HCL 500 MG TAB PO SCH (08:23)
[2019-06-30] MEDS: FERROUS SULFATE 325 MG TAB PO SCH (08:23)
[2019-06-30] MEDS: FE SULF/FA/VIT B COMP & C TAB PO SCH (08:23)
[2019-06-30] MEDS: CIPROFLOXACIN HCL 500 MG TAB PO SCH ×2 (08:23→19:37)
[2019-06-30] MEDS: PROMOD 30 ML DOSE PO SCH ×2 (08:24→19:48)
[2019-06-30] MEDS: NYSTATIN PWDR 100000 UNIT/GM TOP SCH ×2 (08:24→19:48)
--- NOTE | 2019-06-30 17:41 | R.PN ---
ENCOUNTER DATE AND TIME: 06/30/2019 17:32 (CDT) NAME PRICE ROGERS DATE OF : 1940 DATE OF ADMISSION: 06/16/2019 09:16 (CDT) displaced femoral neck fracture on the leftCHIEF COMPLAINT: Left femoral neck fracture s/p left bipolar hemiarthroplasty. Chronic stroke with left hemiparesis. SUBJECTIVE: Pt denied any Shortness of Breath. Pt denied any depression. WBC 6.4, Hgb 9.8, PLT 347, glucose 89 to 103, prealbumin 16.0. He ambulated 190' with minimum assistance using a rolling walker. Self-propelled wheelchair 250' with minimum assistance and multiple rest breaks. Mr. Rogers did multiple stand and pivot transfers with m oderate assistance using a quad cane in the right hand. He reports 2-3/10 pain less and less muscle spasms in the left hip and thigh. His left hip x-ray show s expected findings post surgically without displacement of hardware. He now has pain patches (4% lid ocaine) on the left hip and knee. His tramadol is decreased to 50 mg every 4-6 hours, norco 2.5/325 every 4 hours was stopped. Decrease gabapentin 300 mg twice daily. Glucose range 100 to 160. VITAL SIGNS Temperature: 98.3 F SBP/DBP: 118/69 Pulse: 80 Resp: 16 MEDICATION ALLERGIES: No Known Drug Allergies (NKDA) ENVIRONMENTAL ALLERGIES: - Substance Allergies None Known - Other Allergies honey bee venom NURSING: - Shower allowing shower - Skin care per protocol PRECAUTIONS: - Weight Bearing Precaution WBAT left LE ACTIVITIES OOB only with supervision THERAPIES: - Dietary and Nutrition Adequate Nutrition. Nutritional Education. Nutritional Supplements. PHYSICAL EXAM - Gen Alert and awake Lying in bed No apparent distress Oriented to: person, time, and place - Skin No skin breakdown. Normacephalic - Eyes No abnormalities - ENMT No abnormalities - Neck No abnormalities - CVS RRR - Chest No abnormalities - Abd Soft - GI Non distended Deferred - No abnormalities - Ext No significant edema - MSK 1-2+/5 weakness in left upper and lower extremity. - Neuro 1-2+/5 weakness in left upper and lower extremity. - Psych Mild anxiety. ASSESSMENT: Pt. is a 79 yo Right-handed white male.On 06/10/2019 he was admitted to [facility] and under went emergency surgery for displaced femoral neck fracture on the left (Unilateral Hip Fracture) by DR DAILEY.Pre-morbidly, Pt. was ind ependent/mod-I in Transfers Control, Locomotion, and Self-Care; and he had good Balance, Safety Aware ness, Social Cognition, and Sphincter Control.Currently, he has deficits of Transfers Control, Locomo tion, Balance, Safety Awareness, and Self-Care.Pt. is now referred to [facility] for acute in-patient rehabilitation in order to maximize patient's functional independence in acti vities of daily living, strength, ROM, and mobility.- Rehab Goal Patient has realistic goal of being discharged at assistance level 6-Maria E to reside at Home with Att endant. MDM/PLAN: - Physical Therapy Decreased range of motion - to improve, our physical therapists will perform initial evaluation of p t's status upon admission and devise an individualized program for increasing patient's Range of [place] on. Gait dysfunction - to improve, our physical therapists will perform initial evaluation of pt's statu s upon admission and devise an individualized program for Gait Training, and Wheel Chair mobility Inability to transfer - to improve, our physical therapists will perform initial evaluation of pt's status upon admission and devise an individualized program for Bed mobility Need for home safety evaluation - to improve, our physical therapists will perform initial evaluatio n of pt's status upon admission and devise an individualized program for Home Evaluation Need in caregiver upon discharge - to improve, our physical therapists will perform initial evaluati on of pt's status upon admission and devise an individualized program for Caregiver Training Edema - to improve, our physical therapists will perform initial evaluation of pt's status upon admi ssion and devise an individualized program for Elevation Training, and Lymphedema Therapy New precaution - to improve, our physical therapists will perform initial evaluation of pt's status upon admission and devise an individualized program for Patient precaution education Poor balance - to improve, our physical therapists will perform initial evaluation of pt's status up on admission and devise an individualized program for Balance Training Weakness - to improve, our physical therapists will perform initial evaluation of pt's status upon a dmission and devise an individualized program for Aquatic Therapy, Neuromuscular Reeducation, and Str engthening Achieving independence - to improve, our physical therapists will perform initial evaluation of pt's status upon admission and devise an individualized program for Community Reintegration Activities - Occupational Therapy ADL deficits - to improve, our occupation therapists will perform initial evaluation of pt's status upon admission and devise an individualized program for Bathing, Bed mobility, Community Reintegratio n, Cooking, Dressing, Eating, Fine Motor Skills, Grooming, Homemaking, Kitchen Mobility, Laundry, Pat ient Education, Safety Awareness, Splinting - Positioning, Transfers(Toilet, Tub, Shower), and Wheel Chair Management Need for child care assistant - to improve, our occupation therapists will perform initial evaluation of pt's status upon admission and devise an individualized program for Caregiver Training Weakness - to improve, our occupation therapists will perform initial evaluation of pt's status upon admission and devise an individualized program for Aquatic Therapy, Balance, Endurance, UE ROM, and UE strengthening - Other See attached MAR (Medication Administration Record) - Anterior Hip Precaution No abduction No active extension No adduction across midline No external rotation No hip flexion >90 degrees No internal rotation - Diet - Liquid Texture Continue Regular - Tube Feed Continue N/A - Diet Type Continue Regular - Posterior Hip Precaution No adduction across midline No external rotation No hip flexion >90 degrees No internal rotation No wheel chair propulsion - Weight Bearing Precaution WBAT left LE - Skin care per protocol - Diet - Solid Texture Continue Regular - Shower allowing shower FUNCTIONAL STATUS: UPDATED AT WEEKLY TEAM CONFERENCE - Walking Same score based on distance walked: 0(N/A) - Wheelchair Same FUNCTIONAL STATUS: - Self-Care A. Eating Maria E B. Grooming Maria E C. Bathing maxA D. Dressing - Upper modA E. Dressing - Lower modA F. Toileting modA - Sphincter Control G. Bladder control Anil H. Bowel control Anil - Transfers Control I. Bed/Chair/Wheelchair modA J. Toilet modA K. Tub/Shower modA - Locomotion L. Walk/Wheelchair (B) modA M. Stairs ADNO - Communication N. Comprehension (B) Maria E O. Expression (B) sup - Social Cognition P. Social Interaction sup Q. Problem Solving sup R. Memory Maria E - Endurance Fair - Balance Poor - Safety Awareness Fair QI SCORES: - Self-Care A. Eating 04-Supervision or touching assistance B. Oral hygiene 04-Supervision or touching assistance C. Toileting hygiene 02-Substantial/maximal assistance E. Shower/bathe self 01-Dependent F. Upper body dressing 02-Substantial/maximal assistance G. Lower body dressing 10-Not attempted due to environmental limitations H. Putting on/taking off footwear 88-Not attempted due to medical condition or safety concerns - Mobility A. Roll left and right 02-Substantial/maximal assistance B. Sit to lying 02-Substantial/maximal assistance C. Lying to sitting on side of bed 02-Substantial/maximal assistance D. Sit to stand 02-Substantial/maximal assistance E. Chair/[id number] transfer 01-Dependent F. Toilet transfer 01-Dependent G. Car transfer 88-Not attempted due to medical condition or safety concerns I. Walk 10 feet 88-Not attempted due to medical condition or safety concerns J. Walk 50 feet with two turns 88-Not attempted due to medical condition or safety concerns K. Walk 150 feet 88-Not attempted due to medical condition or safety concerns L. Walking 10 feet on uneven surfaces 88-Not attempted due to medical condition or safety concerns M. 1 step (curb) 88-Not attempted due to medical condition or safety concerns N. 4 steps 88-Not attempted due to medical condition or safety concerns O. 12 steps 88-Not attempted due to medical condition or safety concerns P. Picking up object 88-Not attempted due to medical condition or safety concerns R. Wheel 50 feet with two turns S. Wheel 150 feet - Bladder and Bowel Bladder continence 0-Always continent Bowel continence 0-Always continent - Endurance Poor - Balance Poor - Safety Awareness Poor CURRENT FUNC. DEFICITS: Self-Care, Mobility, Endurance, Balance, and Safety Awareness SIGNATURE PANEL: (CDT)
[2019-06-30] MEDS: ATORVASTATIN 10 MG TAB PO SCH (19:36)
[2019-06-30] MEDS: TAMSULOSIN 0.4 MG SR CAP PO SCH (19:36)
[2019-07-01] MEDS: TRAMADOL HCL 50 MG TAB PO PRN ×3 (01:06→12:08)
[2019-07-01] MEDS: METOPROLOL XL 50 MG TAB PO SCH (05:37)
[2019-07-01] MEDS: FUROSEMIDE 20 MG TABLET PO SCH (07:35)
[2019-07-01] MEDS: CRANBERRY FRUIT EXTRACT 200 MG CAP PO SCH ×2 (07:36→20:21)
[2019-07-01] MEDS: CIPROFLOXACIN HCL 500 MG TAB PO SCH ×2 (07:36→20:21)
[2019-07-01] MEDS: APIXABAN 5 MG TABLET PO SCH (07:37)
[2019-07-01] MEDS: CITALOPRAM 10 MG TABLET PO SCH (07:37)
[2019-07-01] MEDS: BACLOFEN 10 MG TAB PO SCH ×2 (07:37→20:21)
[2019-07-01] MEDS: FE SULF/FA/VIT B COMP & C TAB PO SCH (07:38)
[2019-07-01] MEDS: FERROUS SULFATE 325 MG TAB PO SCH (07:38)
[2019-07-01] MEDS: POTASSIUM CL SA 10 MEQ TAB PO SCH (07:38)
[2019-07-01] MEDS: MAGNESIUM OXIDE 400 MG TAB PO SCH ×2 (07:38→20:25)
[2019-07-01] MEDS: PROMOD 30 ML DOSE PO SCH ×2 (07:40→20:24)
[2019-07-01] MEDS: LIDOCAINE 4% PATCH TOP SCH ×2 (07:41→09:54)
[2019-07-01] MEDS: VALSARTAN 40 MG TAB PO SCH (07:41)
[2019-07-01] MEDS: METFORMIN HCL 500 MG TAB PO SCH (07:42)
[2019-07-01] MEDS: INSULIN -REGULAR HUMAN 50 UNIT/0.5 ML ML SQ SCH ×2 (07:43→20:00)
[2019-07-01] MEDS: NYSTATIN PWDR 100000 UNIT/GM TOP SCH ×2 (08:53→20:00)
--- NOTE | 2019-07-01 09:56 | P.RH.PN ---
Estimated Length of Stay: 20 Expected Discharge Date: 07/05/19 Discharge Disposition Plan: Home Family Support: Yes Prison Goal: Mobility, Transfers, Self Care Vital Signs: Last Vital Signs Temp 98.4 F 07/01/19 06:53 Pulse 54 07/01/19 07:41 Resp 16 07/01/19 08:38 BP 102/61 07/01/19 07:41 Pulse Ox 93 07/01/19 08:38 Laboratory: Laboratory Last Values WBC 6.4 K/uL (4.3-10.9) D 06/30/19 06:11 RBC 3.33 M/uL (4.33-5.43) L 06/30/19 06:11 Hgb 9.8 g/dL (13.6-17.9) L 06/30/19 06:11 Hct 29.9 % (39.6-49.0) L 06/30/19 06:11 MCV 89.7 fL (80-100) 06/30/19 06:11 MCH 29.4 pg (27.0-35.0) 06/30/19 06:11 MCHC 32.7 g/dL (32.0-36.0) 06/30/19 06:11 RDW 16.2 % (12.1-15.2) H 06/30/19 06:11 Plt Count 347 K/uL (152-406) 06/30/19 06:11 MPV 7.6 fL (7.6-11.3) 06/30/19 06:11 Neutrophils % 62.1 % (41.7-73.7) 06/30/19 06:11 Lymphocytes % 22.1 % (15.3-44.8) 06/30/19 06:11 Monocytes % 9.1 % (3.3-12.3) 06/30/19 06:11 Eosinophils % 6.1 % (0-4.4) H 06/30/19 06:11 Basophils % 0.6 % (0-1.3) 06/30/19 06:11 Absolute Neutrophils 4.0 K/uL (1.8-8.0) 06/30/19 06:11 Absolute Lymphocytes 1.4 K/uL (0.7-4.9) 06/30/19 06:11 Absolute Monocytes 0.6 K/uL (0.1-1.3) 06/30/19 06:11 Absolute Eosinophils 0.4 K/uL (0-0.5) 06/30/19 06:11 Absolute Basophils 0.0 K/uL (0-0.5) 06/30/19 06:11 Sodium 140 mmol/L (136-145) 06/30/19 06:11 Potassium 4.2 mmol/L (3.5-5.1) 06/30/19 06:11 Chloride 105 mmol/L (98-107) 06/30/19 06:11 Carbon Dioxide 30 mmol/L (21-32) 06/30/19 06:11 BUN 16 mg/dL (7-18) 06/30/19 06:11 Creatinine 0.72 mg/dL (0.55-1.3) 06/30/19 06:11 Estimated GFR > 90 mL/min (=/>90) 06/30/19 06:11 Glucose 103 mg/dL (74-106) 06/30/19 06:11 POC Glucose 87 mg/dL (65-120) 07/01/19 07:20 Calcium 8.6 mg/dL (8.5-10.1) 06/30/19 06:11 Magnesium 2.2 mg/dL (1.8-2.4) 06/30/19 06:11 Albumin 2.6 g/dL (3.4-5.0) L 06/30/19 06:11 Prealbumin 16.0 mg/dL (20-40) L 06/30/19 06:11 Urine Color Yellow 06/26/19 05:10 Urine Appearance Clear 06/26/19 05:10 Urine pH 7.5 (5.0-7.0) H 06/26/19 05:10 Ur Specific [place] 1.010 (1.005-1.030) 06/26/19 05:10 Glucose (UA)(Auto) Negative (NEG) 06/26/19 05:10 Urine Ketones Negative (NEG) 06/26/19 05:10 Urine Blood Negative (NEG) 06/26/19 05:10 Urine Nitrite Negative (NEG) 06/26/19 05:10 Urine Bilirubin Negative (NEG) 06/26/19 05:10 Urine Urobilinogen 0.2 mg/dL (0.2-1.0) 06/26/19 05:10 Ur Leukocyte Esterase Negative (NEG) 06/26/19 05:10 Urine RBC <5 /HPF (NONE SEEN) 06/26/19 05:10 Urine WBC <5 /HPF (<5) 06/26/19 05:10 Ur Squamous Epith Cells <5 /HPF (NONE SEEN) 06/26/19 05:10 Amorphous Sediment 3+ /HPF (NONE SEEN) H 06/16/19 17:35 Urine Bacteria <20 /HPF (NONE SEEN) 06/26/19 05:10 Urine Mucus 2+ /HPF (NONE SEEN) 06/16/19 17:35 Urine Culture Reflexed Not needed 06/26/19 05:10 Urine Total Protein Negative (NEG) 06/26/19 05:10 Weight: 192 lb 4.8 oz Wound Present: No Closed Surgical Incision Present: Yes Negative Pressure Wound Therapy Present: No Physician Update: His labs were reviewed and are stable. He is making fair p rogress with occupational therapy. He is at moderate assistance overall including transfers. He uses the left forearm splint well and pronate and supernate. His left hip pain is better. He walked 160' with contact guard and platform walker. Moderate to minimum assistance with transfers. He is doing well with speech at supervision to modified independence. Functional Improvement: pt is participating well in therapy; however, he has been limited by L hip pain. X-Rays performed and indicated healing is occurring as expected without issues. pt does seem depressed at times; however, he is participating. As pain reduces, pt's performance should enhance. Speech Therapy Update: Mild to Moderate dysarthria and dysfluency with mild cognitive impairment noted. Patient also has mild oral dysphagia but is tolerating regular foods and liquids with swallow precautions implemented Summary: Patient's care plan and long term care administrator goals have been reviewed and revised as necessary. Please see the Rehabilitation Signature page for all necessary signatures.
--- NOTE | 2019-07-01 14:13 | FAST ---
ENCOUNTER DATE AND TIME: 07/01/2019 08:00 (CDT) NAME PRICE ROGERS DATE OF : 1940 DATE OF ADMISSION: 06/16/2019 09:16 (CDT) PHONE: AGE: 79 N# [id number] GENDER: Male ENCOUNTER PHYSICIAN: Dr. Abdirahman Zepeda M.D. ADMISSION DIAGNOSIS: - Orthopaedic Disorders 08 - Unilateral Hip Fracture (08.11) displaced femoral neck fracture on the left. EATING: Not assessed/no information CODE: - ORAL HYGIENE: ORAL HYGIENE - STEP 1: Does the patient complete the activity by him/herself with no assistance (physical, verbal/nonverbal cueing, setup/clean-up)? Yes. 1. [id number] ADMISSION PERFORMANCE: Independent CODE: 06 TOILETING HYGIENE: Not assessed/no information CODE: - BATHING: SHOWER/BATHE SELF - STEP 1: Does the patient complete the activity by him/herself with no assistance (physical, verbal/nonverbal cueing, setup/clean-up)? No. SHOWER/BATHE SELF - STEP 2: Does the patient need only setup/clean-up assistance from one helper? No. SHOWER/BATHE SELF - STEP 3: Does the patient need only verbal/nonverbal cueing or touching/steadying/contact guard assistance fro m one helper? Yes. 1. [id number] ADMISSION PERFORMANCE: Supervision or touching assistance CODE: 04 DRESSING - UPPER BODY: DRESSING - UPPER BODY - STEP 1: Does the patient complete the activity by him/herself with no assistance (physical, verbal/nonverbal cueing, setup/clean-up)? No. DRESSING - UPPER BODY - STEP 2: Does the patient need only setup/clean-up assistance from one helper? Yes. 1. [id number] ADMISSION PERFORMANCE: Setup or clean-up assistance CODE: 05 DRESSING - LOWER BODY: DRESSING - LOWER BODY - STEP 1: Does the patient complete the activity by him/herself with no assistance (physical, verbal/nonverbal cueing, setup/clean-up)? No. DRESSING - LOWER BODY - STEP 2: Does the patient need only setup/clean-up assistance from one helper? No. DRESSING - LOWER BODY - STEP 3: Does the patient need only verbal/nonverbal cueing or touching/steadying/contact guard assistance fro m one helper? No. DRESSING - LOWER BODY - STEP 4: Does the patient need physical assistance - for example lifting or trunk support from one helper - wi th the helper providing less than half of the effort? Yes. 1. [id number] ADMISSION PERFORMANCE: Partial/moderate assistance CODE: 03 PUTTING ON/TAKING OFF FOOTWEAR: FOOTWEAR - STEP 1: Does the patient complete the activity by him/herself with no assistance (physical, verbal/nonverbal cueing, setup/clean-up)? No. FOOTWEAR - STEP 2: Does the patient need only setup/clean-up assistance from one helper? No. FOOTWEAR - STEP 3: Does the patient need only verbal/nonverbal cueing or touching/steadying/contact guard assistance fro m one helper? No. FOOTWEAR - STEP 4: Does the patient need physical assistance - for example lifting or trunk support from one helper - wi th the helper providing less than half of the effort? Yes. 1. [id number] ADMISSION PERFORMANCE: Partial/moderate assistance CODE: 03 DOES THE PATIENT USE A WHEELCHAIR/SCOOTER? CODE: EXPR INDICATE THE TYPE OF WHEELCHAIR/SCOOTER USED: CODE: EXPR INDICATE THE TYPE OF WHEELCHAIR/SCOOTER USED: CODE: EXPR BLADDER AND BOWEL: CODE: EXPR CODE: EXPR SIGNATURE PANEL: The following modified sections: 1. [id number] Admission Performance, 1. [id number] Admission Performance, 1. [id number] Admission Performance, 1. CL2904h Admission Performance, 1. [id number] Admission Performance were [electronically] signed by ROXANNE Wiseman on ThuJul 01 2019 14:12:00 GMT-0500 (Central Daylight Time)
[2019-07-01] MEDS: ATORVASTATIN 10 MG TAB PO SCH (20:22)
[2019-07-01] MEDS: GABAPENTIN 300 MG CAP PO SCH (20:23)
[2019-07-01] MEDS: MELATONIN 3 MG TABLET PO PRN (20:23)
[2019-07-01] MEDS: TAMSULOSIN 0.4 MG SR CAP PO SCH (20:26)
[2019-07-02] MEDS: TRAMADOL HCL 50 MG TAB PO PRN ×2 (05:01→12:09)
[2019-07-02] MEDS: METOPROLOL XL 50 MG TAB PO SCH (05:01)
[2019-07-02] MEDS: VALSARTAN 40 MG TAB PO SCH (08:00)
[2019-07-02] MEDS: INSULIN -REGULAR HUMAN 50 UNIT/0.5 ML ML SQ SCH ×2 (08:00→20:00)
[2019-07-02] MEDS: LIDOCAINE 4% PATCH TOP SCH (08:35)
[2019-07-02] MEDS: CRANBERRY FRUIT EXTRACT 200 MG CAP PO SCH ×2 (08:35→20:04)
[2019-07-02] MEDS: NYSTATIN PWDR 100000 UNIT/GM TOP SCH ×2 (08:36→20:07)
[2019-07-02] MEDS: CITALOPRAM 10 MG TABLET PO SCH (08:36)
[2019-07-02] MEDS: CIPROFLOXACIN HCL 500 MG TAB PO SCH ×2 (08:36→20:06)
[2019-07-02] MEDS: POTASSIUM CL SA 10 MEQ TAB PO SCH (08:37)
[2019-07-02] MEDS: APIXABAN 5 MG TABLET PO SCH (08:37)
[2019-07-02] MEDS: MAGNESIUM OXIDE 400 MG TAB PO SCH ×2 (08:37→20:06)
[2019-07-02] MEDS: FE SULF/FA/VIT B COMP & C TAB PO SCH (08:38)
[2019-07-02] MEDS: ACETAMINOPHEN 500 MG TAB PO PRN (08:38)
[2019-07-02] MEDS: BACLOFEN 10 MG TAB PO SCH ×2 (08:38→20:05)
[2019-07-02] MEDS: FUROSEMIDE 20 MG TABLET PO SCH (08:39)
[2019-07-02] MEDS: METFORMIN HCL 500 MG TAB PO SCH (08:39)
[2019-07-02] MEDS: FERROUS SULFATE 325 MG TAB PO SCH (08:39)
[2019-07-02] MEDS: PROMOD 30 ML DOSE PO SCH ×2 (08:44→20:08)
[2019-07-02] MEDS: DOCUSATE NA/SENNA CONC 1 TAB PO PRN (20:04)
[2019-07-02] MEDS: MELATONIN 3 MG TABLET PO PRN (20:07)
[2019-07-02] MEDS: GABAPENTIN 300 MG CAP PO SCH (20:07)
[2019-07-02] MEDS: ATORVASTATIN 10 MG TAB PO SCH (20:07)
[2019-07-02] MEDS: TAMSULOSIN 0.4 MG SR CAP PO SCH (20:09)
[2019-07-03] MEDS: METOPROLOL XL 50 MG TAB PO SCH (05:13)
[2019-07-03] MEDS: TRAMADOL HCL 50 MG TAB PO PRN ×2 (06:00→14:18)
[2019-07-03] MEDS: LIDOCAINE 4% PATCH TOP SCH (07:35)
[2019-07-03] MEDS: BACLOFEN 10 MG TAB PO SCH ×2 (07:36→19:10)
[2019-07-03] MEDS: FUROSEMIDE 20 MG TABLET PO SCH (07:36)
[2019-07-03] MEDS: CITALOPRAM 10 MG TABLET PO SCH (07:37)
[2019-07-03] MEDS: POTASSIUM CL SA 10 MEQ TAB PO SCH (07:37)
[2019-07-03] MEDS: VALSARTAN 40 MG TAB PO SCH (07:37)
[2019-07-03] MEDS: PROMOD 30 ML DOSE PO SCH ×2 (07:37→19:11)
[2019-07-03] MEDS: NYSTATIN PWDR 100000 UNIT/GM TOP SCH ×2 (07:37→19:10)
[2019-07-03] MEDS: FERROUS SULFATE 325 MG TAB PO SCH (07:38)
[2019-07-03] MEDS: APIXABAN 5 MG TABLET PO SCH (07:38)
[2019-07-03] MEDS: MAGNESIUM OXIDE 400 MG TAB PO SCH ×2 (07:38→20:02)
[2019-07-03] MEDS: FE SULF/FA/VIT B COMP & C TAB PO SCH (07:38)
[2019-07-03] MEDS: CRANBERRY FRUIT EXTRACT 200 MG CAP PO SCH ×2 (07:38→19:08)
[2019-07-03] MEDS: METFORMIN HCL 500 MG TAB PO SCH (07:38)
[2019-07-03] MEDS: CIPROFLOXACIN HCL 500 MG TAB PO SCH ×2 (07:38→19:08)
[2019-07-03] MEDS: INSULIN -REGULAR HUMAN 50 UNIT/0.5 ML ML SQ SCH ×2 (07:39→20:00)
[2019-07-03] MEDS: TAMSULOSIN 0.4 MG SR CAP PO SCH (20:02)
[2019-07-03] MEDS: ATORVASTATIN 10 MG TAB PO SCH (20:02)
[2019-07-03] MEDS: GABAPENTIN 300 MG CAP PO SCH (20:02)
[2019-07-03] MEDS: MELATONIN 3 MG TABLET PO PRN (20:03)
[2019-07-04] MEDS: TRAMADOL HCL 50 MG TAB PO PRN ×4 (03:07→19:45)
[2019-07-04] MEDS: METOPROLOL XL 50 MG TAB PO SCH (05:22)
[2019-07-04] MEDS: BACLOFEN 10 MG TAB PO SCH ×2 (06:45→19:45)
[2019-07-04] MEDS: VALSARTAN 40 MG TAB PO SCH (08:00)
[2019-07-04] MEDS: LIDOCAINE 4% PATCH TOP SCH (08:00)
[2019-07-04] MEDS: PROMOD 30 ML DOSE PO SCH ×2 (08:00→19:47)
[2019-07-04] MEDS: INSULIN -REGULAR HUMAN 50 UNIT/0.5 ML ML SQ SCH ×2 (08:00→19:47)
[2019-07-04] MEDS: FERROUS SULFATE 325 MG TAB PO SCH (08:48)
[2019-07-04] MEDS: CRANBERRY FRUIT EXTRACT 200 MG CAP PO SCH ×2 (08:48→19:45)
[2019-07-04] MEDS: APIXABAN 5 MG TABLET PO SCH (08:48)
[2019-07-04] MEDS: FE SULF/FA/VIT B COMP & C TAB PO SCH (08:48)
[2019-07-04] MEDS: METFORMIN HCL 500 MG TAB PO SCH (08:49)
[2019-07-04] MEDS: MAGNESIUM OXIDE 400 MG TAB PO SCH ×2 (08:49→20:00)
[2019-07-04] MEDS: POTASSIUM CL SA 10 MEQ TAB PO SCH (08:49)
[2019-07-04] MEDS: FUROSEMIDE 20 MG TABLET PO SCH (08:50)
[2019-07-04] MEDS: NYSTATIN PWDR 100000 UNIT/GM TOP SCH ×2 (08:51→19:43)
[2019-07-04] MEDS: CITALOPRAM 10 MG TABLET PO SCH (08:51)
--- NOTE | 2019-07-04 12:08 | FAST ---
ENCOUNTER DATE AND TIME: 07/04/2019 08:00 (CDT) NAME PRICE ROGERS DATE OF : 1940 DATE OF ADMISSION: 06/16/2019 09:16 (CDT) PHONE: AGE: 79 N# [id number] GENDER: Male ENCOUNTER PHYSICIAN: Dr. Abdirahman Zepeda M.D. ADMISSION DIAGNOSIS: - Orthopaedic Disorders 08 - Unilateral Hip Fracture (08.11) displaced femoral neck fracture on the left. EATING: Not assessed/no information CODE: - ORAL HYGIENE: ORAL HYGIENE - STEP 1: Does the patient complete the activity by him/herself with no assistance (physical, verbal/nonverbal cueing, setup/clean-up)? Yes. 1. [id number] ADMISSION PERFORMANCE: Independent CODE: 06 TOILETING HYGIENE: Not assessed/no information CODE: - BATHING: SHOWER/BATHE SELF - STEP 1: Does the patient complete the activity by him/herself with no assistance (physical, verbal/nonverbal cueing, setup/clean-up)? No. SHOWER/BATHE SELF - STEP 2: Does the patient need only setup/clean-up assistance from one helper? No. SHOWER/BATHE SELF - STEP 3: Does the patient need only verbal/nonverbal cueing or touching/steadying/contact guard assistance fro m one helper? Yes. 1. [id number] ADMISSION PERFORMANCE: Supervision or touching assistance CODE: 04 DRESSING - UPPER BODY: DRESSING - UPPER BODY - STEP 1: Does the patient complete the activity by him/herself with no assistance (physical, verbal/nonverbal cueing, setup/clean-up)? No. DRESSING - UPPER BODY - STEP 2: Does the patient need only setup/clean-up assistance from one helper? No. DRESSING - UPPER BODY - STEP 3: Does the patient need only verbal/nonverbal cueing or touching/steadying/contact guard assistance fro m one helper? Yes. 1. [id number] ADMISSION PERFORMANCE: Supervision or touching assistance CODE: 04 DRESSING - LOWER BODY: DRESSING - LOWER BODY - STEP 1: Does the patient complete the activity by him/herself with no assistance (physical, verbal/nonverbal cueing, setup/clean-up)? No. DRESSING - LOWER BODY - STEP 2: Does the patient need only setup/clean-up assistance from one helper? No. DRESSING - LOWER BODY - STEP 3: Does the patient need only verbal/nonverbal cueing or touching/steadying/contact guard assistance fro m one helper? Yes. 1. [id number] ADMISSION PERFORMANCE: Supervision or touching assistance CODE: 04 PUTTING ON/TAKING OFF FOOTWEAR: FOOTWEAR - STEP 1: Does the patient complete the activity by him/herself with no assistance (physical, verbal/nonverbal cueing, setup/clean-up)? No. FOOTWEAR - STEP 2: Does the patient need only setup/clean-up assistance from one helper? No. FOOTWEAR - STEP 3: Does the patient need only verbal/nonverbal cueing or touching/steadying/contact guard assistance fro m one helper? No. FOOTWEAR - STEP 4: Does the patient need physical assistance - for example lifting or trunk support from one helper - wi th the helper providing less than half of the effort? Yes. 1. [id number] ADMISSION PERFORMANCE: Partial/moderate assistance CODE: 03 DOES THE PATIENT USE A WHEELCHAIR/SCOOTER? CODE: EXPR INDICATE THE TYPE OF WHEELCHAIR/SCOOTER USED: CODE: EXPR INDICATE THE TYPE OF WHEELCHAIR/SCOOTER USED: CODE: EXPR BLADDER AND BOWEL: CODE: EXPR CODE: EXPR SIGNATURE PANEL: The following modified sections: 1. [id number] Admission Performance, 1. [id number] Admission Performance, 1. [id number] Admission Performance, 1. [id number] Admission Performance, 1. [id number] Admission Performance were [electronically] signed by ROXANNE Wiseman on ThuJul 04 2019 12:07:41 GMT-0500 (Central Daylight Time)
[2019-07-04] MEDS: GABAPENTIN 300 MG CAP PO SCH (20:00)
[2019-07-04] MEDS: TAMSULOSIN 0.4 MG SR CAP PO SCH (20:00)
[2019-07-04] MEDS: ATORVASTATIN 10 MG TAB PO SCH (20:00)
[2019-07-04] MEDS: MELATONIN 3 MG TABLET PO PRN (20:01)
[2019-07-05] MEDS: METOPROLOL XL 50 MG TAB PO SCH (05:13)
[2019-07-05] MEDS: INSULIN -REGULAR HUMAN 50 UNIT/0.5 ML ML SQ SCH ×2 (08:00→20:00)
[2019-07-05] MEDS: LIDOCAINE 4% PATCH TOP SCH (08:29)
[2019-07-05] MEDS: TRAMADOL HCL 50 MG TAB PO PRN ×3 (08:30→20:15)
[2019-07-05] MEDS: FUROSEMIDE 20 MG TABLET PO SCH (08:31)
[2019-07-05] MEDS: BACLOFEN 10 MG TAB PO SCH ×2 (08:32→20:15)
[2019-07-05] MEDS: METFORMIN HCL 500 MG TAB PO SCH (08:33)
[2019-07-05] MEDS: APIXABAN 5 MG TABLET PO SCH (08:33)
[2019-07-05] MEDS: VALSARTAN 40 MG TAB PO SCH (08:33)
[2019-07-05] MEDS: POTASSIUM CL SA 10 MEQ TAB PO SCH (08:33)
[2019-07-05] MEDS: FE SULF/FA/VIT B COMP & C TAB PO SCH (08:33)
[2019-07-05] MEDS: CRANBERRY FRUIT EXTRACT 200 MG CAP PO SCH ×2 (08:33→20:14)
[2019-07-05] MEDS: FERROUS SULFATE 325 MG TAB PO SCH (08:33)
[2019-07-05] MEDS: NYSTATIN PWDR 100000 UNIT/GM TOP SCH ×2 (08:34→20:00)
[2019-07-05] MEDS: MAGNESIUM OXIDE 400 MG TAB PO SCH ×2 (08:34→20:14)
[2019-07-05] MEDS: CITALOPRAM 10 MG TABLET PO SCH (08:34)
[2019-07-05] MEDS: PROMOD 30 ML DOSE PO SCH ×2 (08:35→20:16)
[2019-07-05] MEDS: ATORVASTATIN 10 MG TAB PO SCH (20:14)
[2019-07-05] MEDS: TAMSULOSIN 0.4 MG SR CAP PO SCH (20:14)
[2019-07-05] MEDS: GABAPENTIN 300 MG CAP PO SCH (20:16)
[2019-07-05] MEDS: DOCUSATE NA/SENNA CONC 1 TAB PO PRN (20:19)
--- NOTE | 2019-07-05 22:50 | R.PN ---
ENCOUNTER DATE AND TIME: 07/05/2019 22:45 (CDT) NAME PRICE ROGERS DATE OF : 1940 DATE OF ADMISSION: 06/16/2019 09:16 (CDT) displaced femoral neck fracture on the leftCHIEF COMPLAINT: Left femoral neck fracture s/p left bipolar hemiarthroplasty. Chronic stroke with left hemiparesis. SUBJECTIVE: Pt denied any Shortness of Breath. Pt denied any depression. WBC 6.4, Hgb 9.8, PLT 347, glucose 89 to 103, prealbumin 16.0. He ambulated 190' with minimum assistance using a rolling walker. Self-propelled wheelchair 250' with minimum assistance and multiple rest breaks. Mr. Rogers did multiple stand and pivot transfers with m oderate assistance using a quad cane in the right hand. He reports 2-3/10 pain less and less muscle spasms in the left hip and thigh. His left hip x-ray show s expected findings post surgically without displacement of hardware. He now has pain patches (4% lid ocaine) on the left hip and knee. His tramadol is decreased to 50 mg every 4-6 hours, norco 2.5/325 every 4 hours was stopped. Decrease gabapentin 300 mg twice daily. Glucose range 100 to 160. He has no new complaints. VITAL SIGNS Temperature: 98.3 F SBP/DBP: 120/78 Pulse: 78 Resp: 16 MEDICATION ALLERGIES: No Known Drug Allergies (NKDA) ENVIRONMENTAL ALLERGIES: - Substance Allergies None Known - Other Allergies honey bee venom NURSING: - Shower allowing shower - Skin care per protocol PRECAUTIONS: - Weight Bearing Precaution WBAT left LE ACTIVITIES OOB only with supervision THERAPIES: - Dietary and Nutrition Adequate Nutrition. Nutritional Education. Nutritional Supplements. PHYSICAL EXAM - Gen Alert and awake Lying in bed No apparent distress Oriented to: person, time, and place - Skin No skin breakdown. Normacephalic - Eyes No abnormalities - ENMT No abnormalities - Neck No abnormalities - CVS RRR - Chest No abnormalities - Abd Soft - GI Non distended Deferred - No abnormalities - Ext No significant edema - MSK 1-2+/5 weakness in left upper and lower extremity. - Neuro 1-2+/5 weakness in left upper and lower extremity. - Psych Mild anxiety. ASSESSMENT: Pt. is a 79 yo Right-handed white male.On 06/10/2019 he was admitted to [facility] and under went emergency surgery for displaced femoral neck fracture on the left (Unilateral Hip Fracture) by DR DAILEY.Pre-morbidly, Pt. was ind ependent/mod-I in Transfers Control, Locomotion, and Self-Care; and he had good Balance, Safety Aware ness, Social Cognition, and Sphincter Control.Currently, he has deficits of Transfers Control, Locomo tion, Balance, Safety Awareness, and Self-Care.Pt. is now referred to [facility] for acute in-patient rehabilitation in order to maximize patient's functional independence in acti vities of daily living, strength, ROM, and mobility.- Rehab Goal Patient has realistic goal of being discharged at assistance level 6-Maria E to reside at Home with Att endant. MDM/PLAN: - Physical Therapy Decreased range of motion - to improve, our physical therapists will perform initial evaluation of p t's status upon admission and devise an individualized program for increasing patient's Range of [place] on. Gait dysfunction - to improve, our physical therapists will perform initial evaluation of pt's statu s upon admission and devise an individualized program for Gait Training, and Wheel Chair mobility Inability to transfer - to improve, our physical therapists will perform initial evaluation of pt's status upon admission and devise an individualized program for Bed mobility Need for home safety evaluation - to improve, our physical therapists will perform initial evaluatio n of pt's status upon admission and devise an individualized program for Home Evaluation Need in caregiver upon discharge - to improve, our physical therapists will perform initial evaluati on of pt's status upon admission and devise an individualized program for Caregiver Training Edema - to improve, our physical therapists will perform initial evaluation of pt's status upon admi ssion and devise an individualized program for Elevation Training, and Lymphedema Therapy New precaution - to improve, our physical therapists will perform initial evaluation of pt's status upon admission and devise an individualized program for Patient precaution education Poor balance - to improve, our physical therapists will perform initial evaluation of pt's status up on admission and devise an individualized program for Balance Training Weakness - to improve, our physical therapists will perform initial evaluation of pt's status upon a dmission and devise an individualized program for Aquatic Therapy, Neuromuscular Reeducation, and Str engthening Achieving independence - to improve, our physical therapists will perform initial evaluation of pt's status upon admission and devise an individualized program for Community Reintegration Activities - Occupational Therapy ADL deficits - to improve, our occupation therapists will perform initial evaluation of pt's status upon admission and devise an individualized program for Bathing, Bed mobility, Community Reintegratio n, Cooking, Dressing, Eating, Fine Motor Skills, Grooming, Homemaking, Kitchen Mobility, Laundry, Pat ient Education, Safety Awareness, Splinting - Positioning, Transfers(Toilet, Tub, Shower), and Wheel Chair Management Need for direct care specialist - to improve, our occupation therapists will perform initial evaluation of pt's status upon admission and devise an individualized program for Caregiver Training Weakness - to improve, our occupation therapists will perform initial evaluation of pt's status upon admission and devise an individualized program for Aquatic Therapy, Balance, Endurance, UE ROM, and UE strengthening - Other See attached MAR (Medication Administration Record) - Anterior Hip Precaution No abduction No active extension No adduction across midline No external rotation No hip flexion >90 degrees No internal rotation - Diet - Liquid Texture Continue Regular - Tube Feed Continue N/A - Diet Type Continue Regular - Posterior Hip Precaution No adduction across midline No external rotation No hip flexion >90 degrees No internal rotation No wheel chair propulsion - Weight Bearing Precaution WBAT left LE - Skin care per protocol - Diet - Solid Texture Continue Regular - Shower allowing shower FUNCTIONAL STATUS: UPDATED AT WEEKLY TEAM CONFERENCE - Walking Same score based on distance walked: 0(N/A) - Wheelchair Same FUNCTIONAL STATUS: - Self-Care A. Eating Maria E B. Grooming Maria E C. Bathing maxA D. Dressing - Upper modA E. Dressing - Lower modA F. Toileting modA - Sphincter Control G. Bladder control Anil H. Bowel control Anil - Transfers Control I. Bed/Chair/Wheelchair modA J. Toilet modA K. Tub/Shower modA - Locomotion L. Walk/Wheelchair (B) modA M. Stairs ADNO - Communication N. Comprehension (B) Maria E O. Expression (B) sup - Social Cognition P. Social Interaction sup Q. Problem Solving sup R. Memory Maria E - Endurance Fair - Balance Poor - Safety Awareness Fair QI SCORES: - Self-Care A. Eating 04-Supervision or touching assistance B. Oral hygiene 04-Supervision or touching assistance C. Toileting hygiene 02-Substantial/maximal assistance E. Shower/bathe self 01-Dependent F. Upper body dressing 02-Substantial/maximal assistance G. Lower body dressing 10-Not attempted due to environmental limitations H. Putting on/taking off footwear 88-Not attempted due to medical condition or safety concerns - Mobility A. Roll left and right 02-Substantial/maximal assistance B. Sit to lying 02-Substantial/maximal assistance C. Lying to sitting on side of bed 02-Substantial/maximal assistance D. Sit to stand 02-Substantial/maximal assistance E. Chair/waa-iz-hucbs transfer 01-Dependent F. Toilet transfer 01-Dependent G. Car transfer 88-Not attempted due to medical condition or safety concerns I. Walk 10 feet 88-Not attempted due to medical condition or safety concerns J. Walk 50 feet with two turns 88-Not attempted due to medical condition or safety concerns K. Walk 150 feet 88-Not attempted due to medical condition or safety concerns L. Walking 10 feet on uneven surfaces 88-Not attempted due to medical condition or safety concerns M. 1 step (curb) 88-Not attempted due to medical condition or safety concerns N. 4 steps 88-Not attempted due to medical condition or safety concerns O. 12 steps 88-Not attempted due to medical condition or safety concerns P. Picking up object 88-Not attempted due to medical condition or safety concerns R. Wheel 50 feet with two turns S. Wheel 150 feet - Bladder and Bowel Bladder continence 0-Always continent Bowel continence 0-Always continent - Endurance Poor - Balance Poor - Safety Awareness Poor CURRENT FUNC. DEFICITS: Self-Care, Mobility, Endurance, Balance, and Safety Awareness SIGNATURE PANEL: (CDT)
[2019-07-06] MEDS: METOPROLOL XL 50 MG TAB PO SCH (06:00)
[2019-07-06] MEDS: INSULIN -REGULAR HUMAN 50 UNIT/0.5 ML ML SQ SCH ×2 (07:50→20:00)
[2019-07-06] MEDS: VALSARTAN 40 MG TAB PO SCH (08:00)
[2019-07-06] MEDS: CRANBERRY FRUIT EXTRACT 200 MG CAP PO SCH ×2 (08:22→20:25)
[2019-07-06] MEDS: CITALOPRAM 10 MG TABLET PO SCH (08:22)
[2019-07-06] MEDS: NYSTATIN PWDR 100000 UNIT/GM TOP SCH ×2 (08:22→20:25)
[2019-07-06] MEDS: APIXABAN 5 MG TABLET PO SCH (08:22)
[2019-07-06] MEDS: FUROSEMIDE 20 MG TABLET PO SCH (08:23)
[2019-07-06] MEDS: POTASSIUM CL SA 10 MEQ TAB PO SCH (08:23)
[2019-07-06] MEDS: METFORMIN HCL 500 MG TAB PO SCH (08:23)
[2019-07-06] MEDS: BACLOFEN 10 MG TAB PO SCH ×2 (08:24→20:25)
[2019-07-06] MEDS: FERROUS SULFATE 325 MG TAB PO SCH (08:24)
[2019-07-06] MEDS: TRAMADOL HCL 50 MG TAB PO PRN ×3 (08:24→20:26)
[2019-07-06] MEDS: FE SULF/FA/VIT B COMP & C TAB PO SCH (08:25)
[2019-07-06] MEDS: MAGNESIUM OXIDE 400 MG TAB PO SCH ×2 (08:28→20:26)
[2019-07-06] MEDS: PROMOD 30 ML DOSE PO SCH ×2 (08:29→20:25)
[2019-07-06] MEDS: LIDOCAINE 4% PATCH TOP SCH (08:29)
--- NOTE | 2019-07-06 14:36 | FAST ---
ENCOUNTER DATE AND TIME: 07/06/2019 08:00 (CDT) NAME PRICE ROGERS DATE OF : 1940 DATE OF ADMISSION: 06/16/2019 09:16 (CDT) PHONE: AGE: 79 SSN# [id number] GENDER: Male ENCOUNTER PHYSICIAN: Dr. Abdirahman Zepeda M.D. ADMISSION DIAGNOSIS: - Orthopaedic Disorders 08 - Unilateral Hip Fracture (08.11) displaced femoral neck fracture on the left. EATING: Not assessed/no information CODE: - ORAL HYGIENE: ORAL HYGIENE - STEP 1: Does the patient complete the activity by him/herself with no assistance (physical, verbal/nonverbal cueing, setup/clean-up)? Yes. 1. [id number] ADMISSION PERFORMANCE: Independent CODE: 06 TOILETING HYGIENE: TOILETING HYGIENE - STEP 1: Does the patient complete the activity by him/herself with no assistance (physical, verbal/nonverbal cueing, setup/clean-up)? No. TOILETING HYGIENE - STEP 2: Does the patient need only setup/clean-up assistance from one helper? No. TOILETING HYGIENE - STEP 3: Does the patient need only verbal/nonverbal cueing or touching/steadying/contact guard assistance fro m one helper? Yes. 1. [id number] ADMISSION PERFORMANCE: Supervision or touching assistance CODE: 04 BATHING: SHOWER/BATHE SELF - STEP 1: Does the patient complete the activity by him/herself with no assistance (physical, verbal/nonverbal cueing, setup/clean-up)? No. SHOWER/BATHE SELF - STEP 2: Does the patient need only setup/clean-up assistance from one helper? No. SHOWER/BATHE SELF - STEP 3: Does the patient need only verbal/nonverbal cueing or touching/steadying/contact guard assistance fro m one helper? Yes. 1. [id number] ADMISSION PERFORMANCE: Supervision or touching assistance CODE: 04 DRESSING - UPPER BODY: DRESSING - UPPER BODY - STEP 1: Does the patient complete the activity by him/herself with no assistance (physical, verbal/nonverbal cueing, setup/clean-up)? No. DRESSING - UPPER BODY - STEP 2: Does the patient need only setup/clean-up assistance from one helper? No. DRESSING - UPPER BODY - STEP 3: Does the patient need only verbal/nonverbal cueing or touching/steadying/contact guard assistance fro m one helper? Yes. 1. [id number] ADMISSION PERFORMANCE: Supervision or touching assistance CODE: 04 DRESSING - LOWER BODY: DRESSING - LOWER BODY - STEP 1: Does the patient complete the activity by him/herself with no assistance (physical, verbal/nonverbal cueing, setup/clean-up)? No. DRESSING - LOWER BODY - STEP 2: Does the patient need only setup/clean-up assistance from one helper? No. DRESSING - LOWER BODY - STEP 3: Does the patient need only verbal/nonverbal cueing or touching/steadying/contact guard assistance fro m one helper? Yes. 1. [id number] ADMISSION PERFORMANCE: Supervision or touching assistance CODE: 04 PUTTING ON/TAKING OFF FOOTWEAR: FOOTWEAR - STEP 1: Does the patient complete the activity by him/herself with no assistance (physical, verbal/nonverbal cueing, setup/clean-up)? No. FOOTWEAR - STEP 2: Does the patient need only setup/clean-up assistance from one helper? No. FOOTWEAR - STEP 3: Does the patient need only verbal/nonverbal cueing or touching/steadying/contact guard assistance fro m one helper? No. FOOTWEAR - STEP 4: Does the patient need physical assistance - for example lifting or trunk support from one helper - wi th the helper providing less than half of the effort? Yes. 1. [id number] ADMISSION PERFORMANCE: Partial/moderate assistance CODE: 03 DOES THE PATIENT USE A WHEELCHAIR/SCOOTER? CODE: EXPR INDICATE THE TYPE OF WHEELCHAIR/SCOOTER USED: CODE: EXPR INDICATE THE TYPE OF WHEELCHAIR/SCOOTER USED: CODE: EXPR BLADDER AND BOWEL: CODE: EXPR CODE: EXPR SIGNATURE PANEL: The following modified sections: 1. [id number] Admission Performance, 1. [id number] Admission Performance, 1. [id number] Admission Performance, 1. [id number] Admission Performance, 1. [id number] Admission Performance, 1. [id number] Admission Performance were [electronically] signed by ROXANNE Wiseman on ThuJul 06 2019 14:35:36 GMT-0500 (Central Daylight Time)
--- NOTE | 2019-07-06 18:07 | R.PN ---
ENCOUNTER DATE AND TIME: 07/06/2019 18:04 (CDT) NAME PRICE ROGERS DATE OF : 1940 DATE OF ADMISSION: 06/16/2019 09:16 (CDT) displaced femoral neck fracture on the leftCHIEF COMPLAINT: Left femoral neck fracture s/p left bipolar hemiarthroplasty. Chronic stroke with left hemiparesis. SUBJECTIVE: Pt denied any Shortness of Breath. Pt denied any depression. WBC 6.4, Hgb 9.8, PLT 347, glucose 84 to 130, prealbumin 16.0. He ambulated 190' with contact guard assistance using a rolling walker. Self-propelled wheelchair 250 ' with minimum assistance and multiple rest breaks. Mr. Rogers did multiple stand and pivot transfers with moderate assistance using a quad cane in the right hand. He reports 2-3/10 pain less and less muscle spasms in the left hip and thigh. His left hip x-ray show s expected findings post surgically without displacement of hardware. He now has pain patches (4% lid ocaine) on the left hip and knee. His tramadol is decreased to 50 mg every 4-6 hours, norco 2.5/325 every 4 hours was stopped. Decrease gabapentin 300 mg twice daily. Glucose range 100 to 160. He has no new complaints. VITAL SIGNS Temperature: 98.1 F SBP/DBP: 118/70 Pulse: 56 Resp: 18 MEDICATION ALLERGIES: No Known Drug Allergies (NKDA) ENVIRONMENTAL ALLERGIES: - Substance Allergies None Known - Other Allergies honey bee venom NURSING: - Shower allowing shower - Skin care per protocol PRECAUTIONS: - Weight Bearing Precaution WBAT left LE ACTIVITIES OOB only with supervision THERAPIES: - Dietary and Nutrition Adequate Nutrition. Nutritional Education. Nutritional Supplements. PHYSICAL EXAM - Gen Alert and awake Lying in bed No apparent distress Oriented to: person, time, and place - Skin No skin breakdown. Normacephalic - Eyes No abnormalities - ENMT No abnormalities - Neck No abnormalities - CVS RRR - Chest No abnormalities - Abd Soft - GI Non distended Deferred - No abnormalities - Ext No significant edema - MSK 1-2+/5 weakness in left upper and lower extremity. - Neuro 1-2+/5 weakness in left upper and lower extremity. - Psych Mild anxiety. ASSESSMENT: Pt. is a 79 yo Right-handed white male.On 06/10/2019 he was admitted to [facility] and under went emergency surgery for displaced femoral neck fracture on the left (Unilateral Hip Fracture) by DR DAILEY.Pre-morbidly, Pt. was ind ependent/mod-I in Transfers Control, Locomotion, and Self-Care; and he had good Balance, Safety Aware ness, Social Cognition, and Sphincter Control.Currently, he has deficits of Transfers Control, Locomo tion, Balance, Safety Awareness, and Self-Care.Pt. is now referred to [facility] for acute in-patient rehabilitation in order to maximize patient's functional independence in acti vities of daily living, strength, ROM, and mobility.- Rehab Goal Patient has realistic goal of being discharged at assistance level 6-Maria E to reside at Home with Att endant. MDM/PLAN: - Physical Therapy Decreased range of motion - to improve, our physical therapists will perform initial evaluation of p t's status upon admission and devise an individualized program for increasing patient's Range of [place] on. Gait dysfunction - to improve, our physical therapists will perform initial evaluation of pt's statu s upon admission and devise an individualized program for Gait Training, and Wheel Chair mobility Inability to transfer - to improve, our physical therapists will perform initial evaluation of pt's status upon admission and devise an individualized program for Bed mobility Need for home safety evaluation - to improve, our physical therapists will perform initial evaluatio n of pt's status upon admission and devise an individualized program for Home Evaluation Need in caregiver upon discharge - to improve, our physical therapists will perform initial evaluati on of pt's status upon admission and devise an individualized program for Caregiver Training Edema - to improve, our physical therapists will perform initial evaluation of pt's status upon admi ssion and devise an individualized program for Elevation Training, and Lymphedema Therapy New precaution - to improve, our physical therapists will perform initial evaluation of pt's status upon admission and devise an individualized program for Patient precaution education Poor balance - to improve, our physical therapists will perform initial evaluation of pt's status up on admission and devise an individualized program for Balance Training Weakness - to improve, our physical therapists will perform initial evaluation of pt's status upon a dmission and devise an individualized program for Aquatic Therapy, Neuromuscular Reeducation, and Str engthening Achieving independence - to improve, our physical therapists will perform initial evaluation of pt's status upon admission and devise an individualized program for Community Reintegration Activities - Occupational Therapy ADL deficits - to improve, our occupation therapists will perform initial evaluation of pt's status upon admission and devise an individualized program for Bathing, Bed mobility, Community Reintegratio n, Cooking, Dressing, Eating, Fine Motor Skills, Grooming, Homemaking, Kitchen Mobility, Laundry, Pat ient Education, Safety Awareness, Splinting - Positioning, Transfers(Toilet, Tub, Shower), and Wheel Chair Management Need for home health aide caregiver - to improve, our occupation therapists will perform initial evaluation of pt's status upon admission and devise an individualized program for Caregiver Training Weakness - to improve, our occupation therapists will perform initial evaluation of pt's status upon admission and devise an individualized program for Aquatic Therapy, Balance, Endurance, UE ROM, and UE strengthening - Other See attached MAR (Medication Administration Record) - Anterior Hip Precaution No abduction No active extension No adduction across midline No external rotation No hip flexion >90 degrees No internal rotation - Diet - Liquid Texture Continue Regular - Tube Feed Continue N/A - Diet Type Continue Regular - Posterior Hip Precaution No adduction across midline No external rotation No hip flexion >90 degrees No internal rotation No wheel chair propulsion - Weight Bearing Precaution WBAT left LE - Skin care per protocol - Diet - Solid Texture Continue Regular - Shower allowing shower FUNCTIONAL STATUS: UPDATED AT WEEKLY TEAM CONFERENCE - Walking Same score based on distance walked: 0(N/A) - Wheelchair Same FUNCTIONAL STATUS: - Self-Care A. Eating Maria E B. Grooming Maria E C. Bathing maxA D. Dressing - Upper modA E. Dressing - Lower modA F. Toileting modA - Sphincter Control G. Bladder control Anil H. Bowel control Anil - Transfers Control I. Bed/Chair/Wheelchair modA J. Toilet modA K. Tub/Shower modA - Locomotion L. Walk/Wheelchair (B) modA M. Stairs ADNO - Communication N. Comprehension (B) Maria E O. Expression (B) sup - Social Cognition P. Social Interaction sup Q. Problem Solving sup R. Memory Maria E - Endurance Fair - Balance Poor - Safety Awareness Fair QI SCORES: - Self-Care A. Eating 04-Supervision or touching assistance B. Oral hygiene 04-Supervision or touching assistance C. Toileting hygiene 02-Substantial/maximal assistance E. Shower/bathe self 01-Dependent F. Upper body dressing 02-Substantial/maximal assistance G. Lower body dressing 10-Not attempted due to environmental limitations H. Putting on/taking off footwear 88-Not attempted due to medical condition or safety concerns - Mobility A. Roll left and right 02-Substantial/maximal assistance B. Sit to lying 02-Substantial/maximal assistance C. Lying to sitting on side of bed 02-Substantial/maximal assistance D. Sit to stand 02-Substantial/maximal assistance E. Chair/bsz-[id number] transfer 01-Dependent F. Toilet transfer 01-Dependent G. Car transfer 88-Not attempted due to medical condition or safety concerns I. Walk 10 feet 88-Not attempted due to medical condition or safety concerns J. Walk 50 feet with two turns 88-Not attempted due to medical condition or safety concerns K. Walk 150 feet 88-Not attempted due to medical condition or safety concerns L. Walking 10 feet on uneven surfaces 88-Not attempted due to medical condition or safety concerns M. 1 step (curb) 88-Not attempted due to medical condition or safety concerns N. 4 steps 88-Not attempted due to medical condition or safety concerns O. 12 steps 88-Not attempted due to medical condition or safety concerns P. Picking up object 88-Not attempted due to medical condition or safety concerns R. Wheel 50 feet with two turns S. Wheel 150 feet - Bladder and Bowel Bladder continence 0-Always continent Bowel continence 0-Always continent - Endurance Poor - Balance Poor - Safety Awareness Poor CURRENT FUNC. DEFICITS: Self-Care, Mobility, Endurance, Balance, and Safety Awareness SIGNATURE PANEL: (CDT)
[2019-07-06] MEDS: TAMSULOSIN 0.4 MG SR CAP PO SCH (20:25)
[2019-07-06] MEDS: ATORVASTATIN 10 MG TAB PO SCH (20:25)
[2019-07-06] MEDS: GABAPENTIN 300 MG CAP PO SCH (20:25)
[2019-07-06] MEDS: MELATONIN 3 MG TABLET PO PRN (20:25)
[2019-07-06] MEDS: DOCUSATE NA/SENNA CONC 1 TAB PO PRN (20:25)
[2019-07-07] MEDS: METOPROLOL XL 50 MG TAB PO SCH (05:29)
[2019-07-07 06:01] LABS: Absolute Lymphocytes (CBC) 1.6 K/uL (0.7-4.9); Basophils % 0.6 % (0-1.3); Hematocrit 32.4 % (39.6-49.0); Lymphocytes % 27.9 % (15.3-44.8); MPV 8.1 fL (7.6-11.3); RBC Red Blood Cell Count 3.58 M/uL (4.33-5.43)
[2019-07-07 06:15] LABS: Albumin 2.9 g/dL (3.4-5.0); BUN Blood Urea Nitrogen 16 mg/dL (7-18); Bicarbonate 30 mmol/L (21-32); Glucose Level 90 mg/dL (74-106); Magnesium 2.3 mg/dL (1.8-2.4); Potassium 3.9 mmol/L (3.5-5.1); Prealbumin 19.2 mg/dL (20-40); Sodium Level 140 mmol/L (136-145)
[2019-07-07] MEDS: INSULIN -REGULAR HUMAN 50 UNIT/0.5 ML ML SQ SCH ×2 (06:58→20:00)
[2019-07-07] MEDS: FUROSEMIDE 20 MG TABLET PO SCH (07:28)
[2019-07-07] MEDS: BACLOFEN 10 MG TAB PO SCH ×2 (07:28→21:07)
[2019-07-07] MEDS: APIXABAN 5 MG TABLET PO SCH (07:29)
[2019-07-07] MEDS: CRANBERRY FRUIT EXTRACT 200 MG CAP PO SCH ×2 (07:29→21:07)
[2019-07-07] MEDS: FE SULF/FA/VIT B COMP & C TAB PO SCH (07:30)
[2019-07-07] MEDS: METFORMIN HCL 500 MG TAB PO SCH (07:30)
[2019-07-07] MEDS: POTASSIUM CL SA 10 MEQ TAB PO SCH (07:30)
[2019-07-07] MEDS: VALSARTAN 40 MG TAB PO SCH (07:30)
[2019-07-07] MEDS: CITALOPRAM 10 MG TABLET PO SCH (07:30)
[2019-07-07] MEDS: MAGNESIUM OXIDE 400 MG TAB PO SCH ×2 (07:30→21:10)
[2019-07-07] MEDS: TRAMADOL HCL 50 MG TAB PO PRN ×3 (07:31→21:11)
[2019-07-07] MEDS: FERROUS SULFATE 325 MG TAB PO SCH (07:31)
[2019-07-07] MEDS: NYSTATIN PWDR 100000 UNIT/GM TOP SCH ×2 (07:32→21:08)
[2019-07-07] MEDS: LIDOCAINE 4% PATCH TOP SCH (07:32)
[2019-07-07] MEDS: PROMOD 30 ML DOSE PO SCH ×2 (07:33→21:09)
--- NOTE | 2019-07-07 14:52 | FAST ---
ENCOUNTER DATE AND TIME: 07/07/2019 08:00 (CDT) NAME PRICE ROGERS DATE OF : 1940 DATE OF ADMISSION: 06/16/2019 09:16 (CDT) PHONE: AGE: 79 N# [id number] GENDER: Male ENCOUNTER PHYSICIAN: Dr. Abdirahman Zepeda M.D. ADMISSION DIAGNOSIS: - Orthopaedic Disorders 08 - Unilateral Hip Fracture (08.11) displaced femoral neck fracture on the left. ROLL LEFT AND RIGHT: ROLL LEFT AND RIGHT - STEP 1: Does the patient complete the activity by him/herself with no assistance (physical, verbal/nonverbal cueing, setup/clean-up)? No. ROLL LEFT AND RIGHT - STEP 2: Does the patient need only setup/clean-up assistance from one helper? No. ROLL LEFT AND RIGHT - STEP 3: Does the patient need only verbal/nonverbal cueing or touching/steadying/contact guard assistance fro m one helper? No. ROLL LEFT AND RIGHT - STEP 4: Does the patient need physical assistance - for example lifting or trunk support from one helper - wi th the helper providing less than half of the effort? Yes. 1. [id number] ADMISSION PERFORMANCE: Partial/moderate assistance CODE: 03 SIT TO LYING: SIT TO LYING - STEP 1: Does the patient complete the activity by him/herself with no assistance (physical, verbal/nonverbal cueing, setup/clean-up)? No. SIT TO LYING - STEP 2: Does the patient need only setup/clean-up assistance from one helper? Yes. 1. [id number] ADMISSION PERFORMANCE: Setup or clean-up assistance CODE: 05 LYING TO SITTING: LYING TO SITTING ON SIDE OF BED - STEP 1: Does the patient complete the activity by him/herself with no assistance (physical, verbal/nonverbal cueing, setup/clean-up)? No. LYING TO SITTING ON SIDE OF BED - STEP 2: Does the patient need only setup/clean-up assistance from one helper? Yes. 1. [id number] ADMISSION PERFORMANCE: Setup or clean-up assistance CODE: 05 SIT TO STAND: SIT TO STAND - STEP 1: Does the patient complete the activity by him/herself with no assistance (physical, verbal/nonverbal cueing, setup/clean-up)? No. SIT TO STAND - STEP 2: Does the patient need only setup/clean-up assistance from one helper? No. SIT TO STAND - STEP 3: Does the patient need only verbal/nonverbal cueing or touching/steadying/contact guard assistance fro m one helper? Yes. 1. [id number] ADMISSION PERFORMANCE: Supervision or touching assistance CODE: 04 TRANSFERS: BED, CHAIR: CHAIR/[id number] TRANSFER - STEP 1: Does the patient complete the activity by him/herself with no assistance (physical, verbal/nonverbal cueing, setup/clean-up)? No. CHAIR/[id number] TRANSFER - STEP 2: Does the patient need only setup/clean-up assistance from one helper? No. CHAIR/[id number] TRANSFER - STEP 3: Does the patient need only verbal/nonverbal cueing or touching/steadying/contact guard assistance fro m one helper? Yes. 1. [id number] ADMISSION PERFORMANCE: Supervision or touching assistance CODE: 04 TRANSFER TOILET: TOILET TRANSFER - STEP 1: Does the patient complete the activity by him/herself with no assistance (physical, verbal/nonverbal cueing, setup/clean-up)? No. TOILET TRANSFER - STEP 2: Does the patient need only setup/clean-up assistance from one helper? No. TOILET TRANSFER - STEP 3: Does the patient need only verbal/nonverbal cueing or touching/steadying/contact guard assistance fro m one helper? Yes. 1. [id number] ADMISSION PERFORMANCE: Supervision or touching assistance CODE: 04 TRANSFERS: CAR: Not attempted due to medical condition or safety concerns CODE: 88 WALK 10 FEET: WALK 10 FEET - STEP 1: Does the patient complete the activity by him/herself with no assistance (physical, verbal/nonverbal cueing, setup/clean-up)? No. WALK 10 FEET - STEP 2: Does the patient need only setup/clean-up assistance from one helper? No. WALK 10 FEET - STEP 3: Does the patient need only verbal/nonverbal cueing or touching/steadying/contact guard assistance fro m one helper? Yes. 1. [id number] ADMISSION PERFORMANCE: Supervision or touching assistance CODE: 04 WALK 50 FEET: WALK 50 FEET - STEP 1: Does the patient complete the activity by him/herself with no assistance (physical, verbal/nonverbal cueing, setup/clean-up)? No. WALK 50 FEET - STEP 2: Does the patient need only setup/clean-up assistance from one helper? No. WALK 50 FEET - STEP 3: Does the patient need only verbal/nonverbal cueing or touching/steadying/contact guard assistance fro m one helper? Yes. 1. [id number] ADMISSION PERFORMANCE: Supervision or touching assistance CODE: 04 WALK 150 FEET: Not attempted due to medical condition or safety concerns CODE: 88 WALK 10 FEET UNEVEN: Not attempted due to medical condition or safety concerns CODE: 88 1 STEP (CURB): Not attempted due to medical condition or safety concerns CODE: 88 PICKING UP OBJECT: Not attempted due to medical condition or safety concerns CODE: 88 DOES THE PATIENT USE A WHEELCHAIR/SCOOTER? Q1. DOES THE PATIENT USE A WHEELCHAIR/SCOOTER?: Yes CODE: 1 WHEEL 50 FEET WITH TWO TURNS: WHEEL 50 FEET WITH TWO TURNS - STEP 1: Does the patient complete the activity by him/herself with no assistance (physical, verbal/nonverbal cueing, setup/clean-up)? No. WHEEL 50 FEET WITH TWO TURNS - STEP 2: Does the patient need only setup/clean-up assistance from one helper? No. WHEEL 50 FEET WITH TWO TURNS - STEP 3: Does the patient need only verbal/nonverbal cueing or touching/steadying/contact guard assistance fro m one helper? No. WHEEL 50 FEET WITH TWO TURNS - STEP 4: Does the patient need physical assistance - for example lifting or trunk support from one helper - wi th the helper providing less than half of the effort? No. WHEEL 50 FEET WITH TWO TURNS - STEP 5: Does the patient need physical assistance - for example lifting or trunk support from one helper - wi th the helper providing more than half of the effort? Yes. 1. [id number] ADMISSION PERFORMANCE: Substantial/maximal assistance CODE: 02 INDICATE THE TYPE OF WHEELCHAIR/SCOOTER USED: RR1. INDICATE THE TYPE OF WHEELCHAIR/SCOOTER USED.: Manual CODE: 1 WHEEL 150 FEET: Not attempted due to medical condition or safety concerns CODE: 88 INDICATE THE TYPE OF WHEELCHAIR/SCOOTER USED: CODE: EXPR BLADDER AND BOWEL: CODE: EXPR CODE: EXPR SIGNATURE PANEL: The following modified sections: 1. [id number] Admission Performance, 1. [id number] Admission Performance, 1. [id number] Admission Performance, 1. [id number] Admission Performance, 1. [id number] Admission Performance, 1. [id number] Admission Performance, 1. [id number] Admission Performance, 1. [id number] Admission Performance , 1. [id number] Admission Performance, Q1. Does the patient use a wheelchair/scooter?, 1. [id number] Admiss ion Performance, RR1. Indicate the type of wheelchair/scooter used., Code were [electronically] sabina d by Dora Hunter PTA on ThuJul 07 2019 14:52:00 GMT-0500 (Central Daylight Time)
[2019-07-07 16:48] LABS: Absolute Lymphocytes (CBC) 1.4 K/uL (0.7-4.9); Basophils % 0.6 % (0-1.3); Hematocrit 32.6 % (39.6-49.0); Lymphocytes % 21.8 % (15.3-44.8); MPV 8.4 fL (7.6-11.3); RBC Red Blood Cell Count 3.59 M/uL (4.33-5.43)
[2019-07-07 16:59] LABS: Magnesium 2.1 mg/dL (1.8-2.4); Potassium 4.2 mmol/L (3.5-5.1); Prealbumin 19.1 mg/dL (20-40)
--- NOTE | 2019-07-07 18:13 | R.PN ---
ENCOUNTER DATE AND TIME: 07/07/2019 18:09 (CDT) NAME PRICE ROGERS DATE OF : 1940 DATE OF ADMISSION: 06/16/2019 09:16 (CDT) displaced femoral neck fracture on the leftCHIEF COMPLAINT: Left femoral neck fracture s/p left bipolar hemiarthroplasty. Chronic stroke with left hemiparesis. SUBJECTIVE: Pt denied any Shortness of Breath. Pt denied any depression. WBC 6.5, Hgb 10.6, PLT 347, glucose 84 to 110, prealbumin 19.1. He ambulated 270' with contact guard assistance using a rolling walker. Self-propelled wheelchair 250 ' with minimum assistance and multiple rest breaks. Mr. Rogers did multiple stand and pivot transfers with moderate assistance using a quad cane in the right hand. He reports 2-3/10 pain less and less muscle spasms in the left hip and thigh. His left hip x-ray show s expected findings post surgically without displacement of hardware. He now has pain patches (4% lid ocaine) on the left hip and knee. His tramadol is decreased to 50 mg every 4-6 hours, norco 2.5/325 every 4 hours was stopped. Decrease gabapentin 300 mg twice daily. Glucose range 100 to 160. He has no new complaints. VITAL SIGNS Temperature: 98.6 F SBP/DBP: 117/68 Pulse: 66 Resp: 16 MEDICATION ALLERGIES: No Known Drug Allergies (NKDA) ENVIRONMENTAL ALLERGIES: - Substance Allergies None Known - Other Allergies honey bee venom NURSING: - Shower allowing shower - Skin care per protocol PRECAUTIONS: - Weight Bearing Precaution WBAT left LE ACTIVITIES OOB only with supervision THERAPIES: - Dietary and Nutrition Adequate Nutrition. Nutritional Education. Nutritional Supplements. PHYSICAL EXAM - Gen Alert and awake Lying in bed No apparent distress Oriented to: person, time, and place - Skin No skin breakdown. Normacephalic - Eyes No abnormalities - ENMT No abnormalities - Neck No abnormalities - CVS RRR - Chest No abnormalities - Abd Soft - GI Non distended Deferred - No abnormalities - Ext No significant edema - MSK 1-2+/5 weakness in left upper and lower extremity. - Neuro 1-2+/5 weakness in left upper and lower extremity. - Psych Mild anxiety. ASSESSMENT: Pt. is a 79 yo Right-handed white male.On 06/10/2019 he was admitted to [facility] and under went emergency surgery for displaced femoral neck fracture on the left (Unilateral Hip Fracture) by DR DAILEY.Pre-morbidly, Pt. was ind ependent/mod-I in Transfers Control, Locomotion, and Self-Care; and he had good Balance, Safety Aware ness, Social Cognition, and Sphincter Control.Currently, he has deficits of Transfers Control, Locomo tion, Balance, Safety Awareness, and Self-Care.Pt. is now referred to [facility] for acute in-patient rehabilitation in order to maximize patient's functional independence in acti vities of daily living, strength, ROM, and mobility.- Rehab Goal Patient has realistic goal of being discharged at assistance level 6-Maria E to reside at Home with Att endant. MDM/PLAN: - Physical Therapy Decreased range of motion - to improve, our physical therapists will perform initial evaluation of p t's status upon admission and devise an individualized program for increasing patient's Range of [place] on. Gait dysfunction - to improve, our physical therapists will perform initial evaluation of pt's statu s upon admission and devise an individualized program for Gait Training, and Wheel Chair mobility Inability to transfer - to improve, our physical therapists will perform initial evaluation of pt's status upon admission and devise an individualized program for Bed mobility Need for home safety evaluation - to improve, our physical therapists will perform initial evaluatio n of pt's status upon admission and devise an individualized program for Home Evaluation Need in caregiver upon discharge - to improve, our physical therapists will perform initial evaluati on of pt's status upon admission and devise an individualized program for Caregiver Training Edema - to improve, our physical therapists will perform initial evaluation of pt's status upon admi ssion and devise an individualized program for Elevation Training, and Lymphedema Therapy New precaution - to improve, our physical therapists will perform initial evaluation of pt's status upon admission and devise an individualized program for Patient precaution education Poor balance - to improve, our physical therapists will perform initial evaluation of pt's status up on admission and devise an individualized program for Balance Training Weakness - to improve, our physical therapists will perform initial evaluation of pt's status upon a dmission and devise an individualized program for Aquatic Therapy, Neuromuscular Reeducation, and Str engthening Achieving independence - to improve, our physical therapists will perform initial evaluation of pt's status upon admission and devise an individualized program for Community Reintegration Activities - Occupational Therapy ADL deficits - to improve, our occupation therapists will perform initial evaluation of pt's status upon admission and devise an individualized program for Bathing, Bed mobility, Community Reintegratio n, Cooking, Dressing, Eating, Fine Motor Skills, Grooming, Homemaking, Kitchen Mobility, Laundry, Pat ient Education, Safety Awareness, Splinting - Positioning, Transfers(Toilet, Tub, Shower), and Wheel Chair Management 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, our occupation therapists will perform initial evaluation of pt's status upon admission and devise an individualized program for Caregiver Training Weakness - to improve, our occupation therapists will perform initial evaluation of pt's status upon admission and devise an individualized program for Aquatic Therapy, Balance, Endurance, UE ROM, and UE strengthening - Other See attached MAR (Medication Administration Record) - Anterior Hip Precaution No abduction No active extension No adduction across midline No external rotation No hip flexion >90 degrees No internal rotation - Diet - Liquid Texture Continue Regular - Tube Feed Continue N/A - Diet Type Continue Regular - Posterior Hip Precaution No adduction across midline No external rotation No hip flexion >90 degrees No internal rotation No wheel chair propulsion - Weight Bearing Precaution WBAT left LE - Skin care per protocol - Diet - Solid Texture Continue Regular - Shower allowing shower FUNCTIONAL STATUS: UPDATED AT WEEKLY TEAM CONFERENCE - Walking Same score based on distance walked: 0(N/A) - Wheelchair Same FUNCTIONAL STATUS: - Self-Care A. Eating Maria E B. Grooming Maria E C. Bathing maxA D. Dressing - Upper modA E. Dressing - Lower modA F. Toileting modA - Sphincter Control G. Bladder control Anil H. Bowel control Anil - Transfers Control I. Bed/Chair/Wheelchair modA J. Toilet modA K. Tub/Shower modA - Locomotion L. Walk/Wheelchair (B) modA M. Stairs ADNO - Communication N. Comprehension (B) Maria E O. Expression (B) sup - Social Cognition P. Social Interaction sup Q. Problem Solving sup R. Memory Maria E - Endurance Fair - Balance Poor - Safety Awareness Fair QI SCORES: - Self-Care A. Eating 04-Supervision or touching assistance B. Oral hygiene 04-Supervision or touching assistance C. Toileting hygiene 02-Substantial/maximal assistance E. Shower/bathe self 01-Dependent F. Upper body dressing 02-Substantial/maximal assistance G. Lower body dressing 10-Not attempted due to environmental limitations H. Putting on/taking off footwear 88-Not attempted due to medical condition or safety concerns - Mobility A. Roll left and right 02-Substantial/maximal assistance B. Sit to lying 02-Substantial/maximal assistance C. Lying to sitting on side of bed 02-Substantial/maximal assistance D. Sit to stand 02-Substantial/maximal assistance E. Chair/[id number] transfer 01-Dependent F. Toilet transfer 01-Dependent G. Car transfer 88-Not attempted due to medical condition or safety concerns I. Walk 10 feet 88-Not attempted due to medical condition or safety concerns J. Walk 50 feet with two turns 88-Not attempted due to medical condition or safety concerns K. Walk 150 feet 88-Not attempted due to medical condition or safety concerns L. Walking 10 feet on uneven surfaces 88-Not attempted due to medical condition or safety concerns M. 1 step (curb) 88-Not attempted due to medical condition or safety concerns N. 4 steps 88-Not attempted due to medical condition or safety concerns O. 12 steps 88-Not attempted due to medical condition or safety concerns P. Picking up object 88-Not attempted due to medical condition or safety concerns R. Wheel 50 feet with two turns S. Wheel 150 feet - Bladder and Bowel Bladder continence 0-Always continent Bowel continence 0-Always continent - Endurance Poor - Balance Poor - Safety Awareness Poor CURRENT FUNC. DEFICITS: Self-Care, Mobility, Endurance, Balance, and Safety Awareness SIGNATURE PANEL: (CDT)
[2019-07-07] MEDS: ATORVASTATIN 10 MG TAB PO SCH (21:09)
[2019-07-07] MEDS: GABAPENTIN 300 MG CAP PO SCH (21:09)
[2019-07-07] MEDS: TAMSULOSIN 0.4 MG SR CAP PO SCH (21:09)
[2019-07-07] MEDS: DOCUSATE NA/SENNA CONC 1 TAB PO PRN (21:10)
[2019-07-07] MEDS: MELATONIN 3 MG TABLET PO PRN (21:10)
[2019-07-08] MEDS: METOPROLOL XL 50 MG TAB PO SCH (05:22)
[2019-07-08] MEDS: INSULIN -REGULAR HUMAN 50 UNIT/0.5 ML ML SQ SCH ×2 (07:07→20:00)
[2019-07-08] MEDS: TRAMADOL HCL 50 MG TAB PO PRN ×3 (07:26→20:35)
[2019-07-08] MEDS: BACLOFEN 10 MG TAB PO SCH ×2 (07:27→20:29)
[2019-07-08] MEDS: FUROSEMIDE 20 MG TABLET PO SCH (07:27)
[2019-07-08] MEDS: METFORMIN HCL 500 MG TAB PO SCH (07:28)
[2019-07-08] MEDS: CRANBERRY FRUIT EXTRACT 200 MG CAP PO SCH ×2 (07:28→20:28)
[2019-07-08] MEDS: CITALOPRAM 10 MG TABLET PO SCH (07:28)
[2019-07-08] MEDS: APIXABAN 5 MG TABLET PO SCH (07:28)
[2019-07-08] MEDS: FE SULF/FA/VIT B COMP & C TAB PO SCH (07:28)
[2019-07-08] MEDS: POTASSIUM CL SA 10 MEQ TAB PO SCH (07:28)
[2019-07-08] MEDS: FERROUS SULFATE 325 MG TAB PO SCH (07:29)
[2019-07-08] MEDS: VALSARTAN 40 MG TAB PO SCH (07:29)
[2019-07-08] MEDS: MAGNESIUM OXIDE 400 MG TAB PO SCH ×2 (07:29→20:30)
[2019-07-08] MEDS: NYSTATIN PWDR 100000 UNIT/GM TOP SCH ×2 (07:29→20:36)
[2019-07-08] MEDS: PROMOD 30 ML DOSE PO SCH ×2 (07:30→20:37)
[2019-07-08] MEDS: LIDOCAINE 4% PATCH TOP SCH (08:52)
--- NOTE | 2019-07-08 09:48 | P.RH.PN ---
Estimated Length of Stay: 27 Expected Discharge Date: 07/12/19 Discharge Disposition Plan: Home Family Support: Yes Long-Term Goal: Mobility, Transfers, Self Care Vital Signs: Last Vital Signs Temp 99.0 F 07/08/19 07:09 Pulse 66 07/08/19 07:29 Resp 18 07/08/19 08:26 BP 115/52 L 07/08/19 07:29 Pulse Ox 95 07/08/19 08:26 Laboratory: Laboratory Last Values WBC 6.5 K/uL (4.3-10.9) 07/07/19 15:35 RBC 3.59 M/uL (4.33-5.43) L 07/07/19 15:35 Hgb 10.6 g/dL (13.6-17.9) L 07/07/19 15:35 Hct 32.6 % (39.6-49.0) L 07/07/19 15:35 MCV 90.9 fL (80-100) 07/07/19 15:35 MCH 29.5 pg (27.0-35.0) 07/07/19 15:35 MCHC 32.5 g/dL (32.0-36.0) 07/07/19 15:35 RDW 17.0 % (12.1-15.2) H 07/07/19 15:35 Plt Count 308 K/uL (152-406) 07/07/19 15:35 MPV 8.4 fL (7.6-11.3) 07/07/19 15:35 Neutrophils % 63.7 % (41.7-73.7) 07/07/19 15:35 Lymphocytes % 21.8 % (15.3-44.8) 07/07/19 15:35 Monocytes % 8.0 % (3.3-12.3) 07/07/19 15:35 Eosinophils % 5.9 % (0-4.4) H 07/07/19 15:35 Basophils % 0.6 % (0-1.3) 07/07/19 15:35 Absolute Neutrophils 4.1 K/uL (1.8-8.0) 07/07/19 15:35 Absolute Lymphocytes 1.4 K/uL (0.7-4.9) 07/07/19 15:35 Absolute Monocytes 0.5 K/uL (0.1-1.3) 07/07/19 15:35 Absolute Eosinophils 0.4 K/uL (0-0.5) 07/07/19 15:35 Absolute Basophils 0.0 K/uL (0-0.5) 07/07/19 15:35 Sodium 138 mmol/L (136-145) 07/07/19 15:35 Potassium 4.2 mmol/L (3.5-5.1) 07/07/19 15:35 Chloride 105 mmol/L (98-107) 07/07/19 15:35 Carbon Dioxide 28 mmol/L (21-32) 07/07/19 15:35 BUN 20 mg/dL (7-18) H 07/07/19 15:35 Creatinine 0.83 mg/dL (0.55-1.3) 07/07/19 15:35 Estimated GFR 90 mL/min (=/>90) 07/07/19 15:35 Glucose 110 mg/dL (74-106) H 07/07/19 15:35 POC Glucose 97 mg/dL (65-120) 07/08/19 07:05 Calcium 8.7 mg/dL (8.5-10.1) 07/07/19 15:35 Magnesium 2.1 mg/dL (1.8-2.4) 07/07/19 15:35 Albumin 3.0 g/dL (3.4-5.0) L 07/07/19 15:35 Prealbumin 19.1 mg/dL (20-40) L 07/07/19 15:35 Urine Color Yellow 06/26/19 05:10 Urine Appearance Clear 06/26/19 05:10 Urine pH 7.5 (5.0-7.0) H 06/26/19 05:10 Ur Specific [place] 1.010 (1.005-1.030) 06/26/19 05:10 Glucose (UA)(Auto) Negative (NEG) 06/26/19 05:10 Urine Ketones Negative (NEG) 06/26/19 05:10 Urine Blood Negative (NEG) 06/26/19 05:10 Urine Nitrite Negative (NEG) 06/26/19 05:10 Urine Bilirubin Negative (NEG) 06/26/19 05:10 Urine Urobilinogen 0.2 mg/dL (0.2-1.0) 06/26/19 05:10 Ur Leukocyte Esterase Negative (NEG) 06/26/19 05:10 Urine RBC <5 /HPF (NONE SEEN) 06/26/19 05:10 Urine WBC <5 /HPF (<5) 06/26/19 05:10 Ur Squamous Epith Cells <5 /HPF (NONE SEEN) 06/26/19 05:10 Amorphous Sediment 3+ /HPF (NONE SEEN) H 06/16/19 17:35 Urine Bacteria <20 /HPF (NONE SEEN) 06/26/19 05:10 Urine Mucus 2+ /HPF (NONE SEEN) 06/16/19 17:35 Urine Culture Reflexed Not needed 06/26/19 05:10 Urine Total Protein Negative (NEG) 06/26/19 05:10 Weight: 192 lb 4.8 oz Wound Present: No Closed Surgical Incision Present: Yes Negative Pressure Wound Therapy Present: No Physician Update: Labs reviewed and are stable. He is doing well but will need help with lower body dressing due to hip precautions. Otherwise he is at a minimum to standby assistance level. He walked 110' with quad cane and contact guard. He did transfers with standby to contact guard assistance. He is doing well with speech therapy. He is on mechanical soft diet. He should be ready for D/C on next Thursday. Functional Improvement: pt is participating well in therapy; however, he has been limited by L hip pain. X-Rays performed and indicated healing is occurring as expected without issues. pt does seem depressed at times; however, he is p articipating. As pain reduces, pt's performance should enhance. Speech Therapy Update: Patient continues to present with mild dysarthria and mild dysphagia. Patient has been practicing implementation of phrasing and optimal breath groups while reading paragraphs aloud. Patient requires frequent reminders to reduce rate of speech and to speak louder. Patient is also working on increasing vocal function to decrease hoarseness and vocal weakness which further impedes his ability to be understood. Patient is targeting mechanical soft solids and thin liquids without overt s/s of aspiration. Summary: Patient's care plan and fci goals have been reviewed and revised as necessary. Please see the Rehabilitation Signature page for all necessary signatures.
--- NOTE | 2019-07-08 11:44 | FAST ---
SHIFT START DATE/TIME: 07/08/2019 07:00 (CDT) SHIFT END DATE/TIME: 07/08/2019 19:00 (CDT) NAME PRICE ROGERS DATE OF : 1940 DATE OF ADMISSION: 06/16/2019 09:16 (CDT) PHONE: AGE: 79 N# [id number] GENDER: Male ENCOUNTER PHYSICIAN: Dr. Abdirahman Zepeda M.D. ADMISSION DIAGNOSIS: - Orthopaedic Disorders 08 - Unilateral Hip Fracture (08.11) displaced femoral neck fracture on the left. EATING: EATING - STEP 1: Does the patient complete the activity by him/herself with no assistance (physical, verbal/nonverbal cueing, setup/clean-up)? No. EATING - STEP 2: Does the patient need only setup/clean-up assistance from one helper? No. EATING - STEP 3: Does the patient need only verbal/nonverbal cueing or touching/steadying/contact guard assistance fro m one helper? No. EATING - STEP 4: Does the patient need physical assistance - for example lifting or trunk support from one helper - wi th the helper providing less than half of the effort? Yes. 1. [id number] ADMISSION PERFORMANCE: Partial/moderate assistance CODE: 03 ORAL HYGIENE: ORAL HYGIENE - STEP 1: Does the patient complete the activity by him/herself with no assistance (physical, verbal/nonverbal cueing, setup/clean-up)? No. ORAL HYGIENE - STEP 2: Does the patient need only setup/clean-up assistance from one helper? No. ORAL HYGIENE - STEP 3: Does the patient need only verbal/nonverbal cueing or touching/steadying/contact guard assistance fro m one helper? No. ORAL HYGIENE - STEP 4: Does the patient need physical assistance - for example lifting or trunk support from one helper - wi th the helper providing less than half of the effort? Yes. 1. [id number] ADMISSION PERFORMANCE: Partial/moderate assistance CODE: 03 TOILETING HYGIENE: TOILETING HYGIENE - STEP 1: Does the patient complete the activity by him/herself with no assistance (physical, verbal/nonverbal cueing, setup/clean-up)? No. TOILETING HYGIENE - STEP 2: Does the patient need only setup/clean-up assistance from one helper? No. TOILETING HYGIENE - STEP 3: Does the patient need only verbal/nonverbal cueing or touching/steadying/contact guard assistance fro m one helper? No. TOILETING HYGIENE - STEP 4: Does the patient need physical assistance - for example lifting or trunk support from one helper - wi th the helper providing less than half of the effort? Yes. 1. [id number] ADMISSION PERFORMANCE: Partial/moderate assistance CODE: 03 BATHING: Not assessed/no information CODE: - DRESSING - UPPER BODY: Not assessed/no information CODE: - DRESSING - LOWER BODY: Not assessed/no information CODE: - PUTTING ON/TAKING OFF FOOTWEAR: Not assessed/no information CODE: - ROLL LEFT AND RIGHT: Not assessed/no information CODE: - SIT TO LYING: Not assessed/no information CODE: - LYING TO SITTING: LYING TO SITTING ON SIDE OF BED - STEP 1: Does the patient complete the activity by him/herself with no assistance (physical, verbal/nonverbal cueing, setup/clean-up)? No. LYING TO SITTING ON SIDE OF BED - STEP 2: Does the patient need only setup/clean-up assistance from one helper? No. LYING TO SITTING ON SIDE OF BED - STEP 3: Does the patient need only verbal/nonverbal cueing or touching/steadying/contact guard assistance fro m one helper? No. LYING TO SITTING ON SIDE OF BED - STEP 4: Does the patient need physical assistance - for example lifting or trunk support from one helper - wi th the helper providing less than half of the effort? Yes. 1. [id number] ADMISSION PERFORMANCE: Partial/moderate assistance CODE: 03 SIT TO STAND: SIT TO STAND - STEP 1: Does the patient complete the activity by him/herself with no assistance (physical, verbal/nonverbal cueing, setup/clean-up)? No. SIT TO STAND - STEP 2: Does the patient need only setup/clean-up assistance from one helper? No. SIT TO STAND - STEP 3: Does the patient need only verbal/nonverbal cueing or touching/steadying/contact guard assistance fro m one helper? No. SIT TO STAND - STEP 4: Does the patient need physical assistance - for example lifting or trunk support from one helper - wi th the helper providing less than half of the effort? Yes. 1. [id number] ADMISSION PERFORMANCE: Partial/moderate assistance CODE: 03 TRANSFERS: BED, CHAIR: Not assessed/no information CODE: - TRANSFER TOILET: TOILET TRANSFER - STEP 1: Does the patient complete the activity by him/herself with no assistance (physical, verbal/nonverbal cueing, setup/clean-up)? No. TOILET TRANSFER - STEP 2: Does the patient need only setup/clean-up assistance from one helper? No. TOILET TRANSFER - STEP 3: Does the patient need only verbal/nonverbal cueing or touching/steadying/contact guard assistance fro m one helper? No. TOILET TRANSFER - STEP 4: Does the patient need physical assistance - for example lifting or trunk support from one helper - wi th the helper providing less than half of the effort? Yes. 1. [id number] ADMISSION PERFORMANCE: Partial/moderate assistance CODE: 03 TRANSFERS: CAR: Not assessed/no information CODE: - WALK 10 FEET: Not assessed/no information CODE: - 1 STEP (CURB): Not assessed/no information CODE: - PICKING UP OBJECT: Not assessed/no information CODE: - DOES THE PATIENT USE A WHEELCHAIR/SCOOTER? CODE: EXPR WHEEL 50 FEET WITH TWO TURNS: Not assessed/no information CODE: - INDICATE THE TYPE OF WHEELCHAIR/SCOOTER USED: CODE: EXPR WHEEL 150 FEET: Not assessed/no information CODE: - INDICATE THE TYPE OF WHEELCHAIR/SCOOTER USED: CODE: EXPR BLADDER AND BOWEL: H350. BLADDER CONTINENCE (3-DAY ASSESSMENT PERIOD): Stress incontinence only CODE: 1 H400. BOWEL CONTINENCE (3-DAY ASSESSMENT PERIOD): Always continent CODE: 0 SIGNATURE PANEL: The following modified sections: 1. [id number] Admission Performance, 1. [id number] Admission Performance, 1. [id number] Admission Performance, 1. [id number] Admission Performance, 1. [id number] Admission Performance, 1. [id number] Admission Performance, 1. [id number] Admission Performance, 1. [id number] Admission Performance , 1. [id number] Admission Performance, 1. [id number] Admission Performance, Code, H350. Bladder Continence (3-day assessment period), H400. Bowel Continence (3-day assessment period) were [electronically] sig malu by Wilmar Arboleda on ThuJul 08 2019 11:44:13 GMT-0500 (Central Daylight Time)
[2019-07-08] MEDS: ATORVASTATIN 10 MG TAB PO SCH (20:29)
[2019-07-08] MEDS: GABAPENTIN 300 MG CAP PO SCH (20:29)
[2019-07-08] MEDS: TAMSULOSIN 0.4 MG SR CAP PO SCH (20:29)
[2019-07-08] MEDS: MELATONIN 3 MG TABLET PO PRN (20:35)
[2019-07-08] MEDS: DOCUSATE NA/SENNA CONC 1 TAB PO PRN (20:35)
--- NOTE | 2019-07-09 02:28 | FAST ---
SHIFT START DATE/TIME: 07/08/2019 19:00 (CDT) SHIFT END DATE/TIME: 07/09/2019 07:00 (CDT) NAME PRICE ROGERS DATE OF : 1940 DATE OF ADMISSION: 06/16/2019 09:16 (CDT) PHONE: AGE: 79 N# [id number] GENDER: Male ENCOUNTER PHYSICIAN: Dr. Abdirahman Zepeda M.D. ADMISSION DIAGNOSIS: - Orthopaedic Disorders 08 - Unilateral Hip Fracture (08.11) displaced femoral neck fracture on the left. EATING: Not assessed/no information CODE: - ORAL HYGIENE: Not assessed/no information CODE: - TOILETING HYGIENE: TOILETING HYGIENE - STEP 1: Does the patient complete the activity by him/herself with no assistance (physical, verbal/nonverbal cueing, setup/clean-up)? No. TOILETING HYGIENE - STEP 2: Does the patient need only setup/clean-up assistance from one helper? No. TOILETING HYGIENE - STEP 3: Does the patient need only verbal/nonverbal cueing or touching/steadying/contact guard assistance fro m one helper? No. TOILETING HYGIENE - STEP 4: Does the patient need physical assistance - for example lifting or trunk support from one helper - wi th the helper providing less than half of the effort? Yes. 1. [id number] ADMISSION PERFORMANCE: Partial/moderate assistance CODE: 03 BATHING: Not assessed/no information CODE: - DRESSING - UPPER BODY: Not assessed/no information CODE: - DRESSING - LOWER BODY: Not assessed/no information CODE: - PUTTING ON/TAKING OFF FOOTWEAR: Not assessed/no information CODE: - ROLL LEFT AND RIGHT: ROLL LEFT AND RIGHT - STEP 1: Does the patient complete the activity by him/herself with no assistance (physical, verbal/nonverbal cueing, setup/clean-up)? No. ROLL LEFT AND RIGHT - STEP 2: Does the patient need only setup/clean-up assistance from one helper? No. ROLL LEFT AND RIGHT - STEP 3: Does the patient need only verbal/nonverbal cueing or touching/steadying/contact guard assistance fro m one helper? No. ROLL LEFT AND RIGHT - STEP 4: Does the patient need physical assistance - for example lifting or trunk support from one helper - wi th the helper providing less than half of the effort? Yes. 1. [id number] ADMISSION PERFORMANCE: Partial/moderate assistance CODE: 03 SIT TO LYING: Not assessed/no information CODE: - LYING TO SITTING: Not assessed/no information CODE: - SIT TO STAND: Not assessed/no information CODE: - TRANSFERS: BED, CHAIR: Not assessed/no information CODE: - TRANSFER TOILET: Not assessed/no information CODE: - TRANSFERS: CAR: Not assessed/no information CODE: - WALK 10 FEET: Not assessed/no information CODE: - 1 STEP (CURB): Not assessed/no information CODE: - PICKING UP OBJECT: Not assessed/no information CODE: - DOES THE PATIENT USE A WHEELCHAIR/SCOOTER? CODE: EXPR WHEEL 50 FEET WITH TWO TURNS: Not assessed/no information CODE: - INDICATE THE TYPE OF WHEELCHAIR/SCOOTER USED: CODE: EXPR WHEEL 150 FEET: Not assessed/no information CODE: - INDICATE THE TYPE OF WHEELCHAIR/SCOOTER USED: CODE: EXPR BLADDER AND BOWEL: H350. BLADDER CONTINENCE (3-DAY ASSESSMENT PERIOD): Incontinent less than daily (e.g., once or twice during the 3-day assessment period) CODE: 2 H400. BOWEL CONTINENCE (3-DAY ASSESSMENT PERIOD): Always continent CODE: 0
[2019-07-09] MEDS: METOPROLOL XL 50 MG TAB PO SCH (05:03)
[2019-07-09 05:42] VITALS: BMI 29.6
[2019-07-09] MEDS: VALSARTAN 40 MG TAB PO SCH (08:00)
[2019-07-09] MEDS: INSULIN -REGULAR HUMAN 50 UNIT/0.5 ML ML SQ SCH ×2 (08:00→19:38)
[2019-07-09] MEDS: LIDOCAINE 4% PATCH TOP SCH ×2 (08:00→08:23)
[2019-07-09] MEDS: BACLOFEN 10 MG TAB PO SCH ×2 (08:20→19:00)
[2019-07-09] MEDS: NYSTATIN PWDR 100000 UNIT/GM TOP SCH ×2 (08:23→18:59)
[2019-07-09] MEDS: CRANBERRY FRUIT EXTRACT 200 MG CAP PO SCH ×2 (08:23→19:01)
[2019-07-09] MEDS: FERROUS SULFATE 325 MG TAB PO SCH (08:24)
[2019-07-09] MEDS: APIXABAN 5 MG TABLET PO SCH (08:24)
[2019-07-09] MEDS: POTASSIUM CL SA 10 MEQ TAB PO SCH (08:24)
[2019-07-09] MEDS: METFORMIN HCL 500 MG TAB PO SCH (08:24)
[2019-07-09] MEDS: MAGNESIUM OXIDE 400 MG TAB PO SCH ×2 (08:24→19:01)
[2019-07-09] MEDS: FUROSEMIDE 20 MG TABLET PO SCH (08:25)
[2019-07-09] MEDS: FE SULF/FA/VIT B COMP & C TAB PO SCH (08:25)
[2019-07-09] MEDS: CITALOPRAM 10 MG TABLET PO SCH (08:26)
[2019-07-09] MEDS: TRAMADOL HCL 50 MG TAB PO PRN ×2 (08:27→19:00)
[2019-07-09] MEDS: PROMOD 30 ML DOSE PO SCH ×2 (08:30→19:02)
--- NOTE | 2019-07-09 08:31 | FAST ---
ENCOUNTER DATE AND TIME: 07/08/2019 08:00 (CDT) NAME PRICE ROGERS DATE OF : 1940 DATE OF ADMISSION: 06/16/2019 09:16 (CDT) PHONE: AGE: 79 N# [id number] GENDER: Male ENCOUNTER PHYSICIAN: Dr. Abdirahman Zepeda M.D. ADMISSION DIAGNOSIS: - Orthopaedic Disorders 08 - Unilateral Hip Fracture (08.11) displaced femoral neck fracture on the left. EATING: Not assessed/no information CODE: - ORAL HYGIENE: ORAL HYGIENE - STEP 1: Does the patient complete the activity by him/herself with no assistance (physical, verbal/nonverbal cueing, setup/clean-up)? Yes. 1. [id number] ADMISSION PERFORMANCE: Independent CODE: 06 TOILETING HYGIENE: Not assessed/no information CODE: - BATHING: SHOWER/BATHE SELF - STEP 1: Does the patient complete the activity by him/herself with no assistance (physical, verbal/nonverbal cueing, setup/clean-up)? No. SHOWER/BATHE SELF - STEP 2: Does the patient need only setup/clean-up assistance from one helper? No. SHOWER/BATHE SELF - STEP 3: Does the patient need only verbal/nonverbal cueing or touching/steadying/contact guard assistance fro m one helper? Yes. 1. [id number] ADMISSION PERFORMANCE: Supervision or touching assistance CODE: 04 DRESSING - UPPER BODY: DRESSING - UPPER BODY - STEP 1: Does the patient complete the activity by him/herself with no assistance (physical, verbal/nonverbal cueing, setup/clean-up)? No. DRESSING - UPPER BODY - STEP 2: Does the patient need only setup/clean-up assistance from one helper? No. DRESSING - UPPER BODY - STEP 3: Does the patient need only verbal/nonverbal cueing or touching/steadying/contact guard assistance fro m one helper? Yes. 1. [id number] ADMISSION PERFORMANCE: Supervision or touching assistance CODE: 04 DRESSING - LOWER BODY: DRESSING - LOWER BODY - STEP 1: Does the patient complete the activity by him/herself with no assistance (physical, verbal/nonverbal cueing, setup/clean-up)? No. DRESSING - LOWER BODY - STEP 2: Does the patient need only setup/clean-up assistance from one helper? No. DRESSING - LOWER BODY - STEP 3: Does the patient need only verbal/nonverbal cueing or touching/steadying/contact guard assistance fro m one helper? Yes. 1. [id number] ADMISSION PERFORMANCE: Supervision or touching assistance CODE: 04 PUTTING ON/TAKING OFF FOOTWEAR: FOOTWEAR - STEP 1: Does the patient complete the activity by him/herself with no assistance (physical, verbal/nonverbal cueing, setup/clean-up)? No. FOOTWEAR - STEP 2: Does the patient need only setup/clean-up assistance from one helper? No. FOOTWEAR - STEP 3: Does the patient need only verbal/nonverbal cueing or touching/steadying/contact guard assistance fro m one helper? No. FOOTWEAR - STEP 4: Does the patient need physical assistance - for example lifting or trunk support from one helper - wi th the helper providing less than half of the effort? Yes. 1. [id number] ADMISSION PERFORMANCE: Partial/moderate assistance CODE: 03 DOES THE PATIENT USE A WHEELCHAIR/SCOOTER? CODE: EXPR INDICATE THE TYPE OF WHEELCHAIR/SCOOTER USED: CODE: EXPR INDICATE THE TYPE OF WHEELCHAIR/SCOOTER USED: CODE: EXPR BLADDER AND BOWEL: CODE: EXPR CODE: EXPR SIGNATURE PANEL: The following modified sections: 1. [id number] Admission Performance, 1. [id number] Admission Performance, 1. [id number] Admission Performance, 1. [id number] Admission Performance, 1. [id number] Admission Performance were [electronically] signed by ROXANNE Wiseman on ThuJul 09 2019 08:30:10 T-0500 (Central Daylight Time)
[2019-07-09] MEDS: ATORVASTATIN 10 MG TAB PO SCH (18:59)
[2019-07-09] MEDS: TAMSULOSIN 0.4 MG SR CAP PO SCH (19:02)
[2019-07-09] MEDS: GABAPENTIN 300 MG CAP PO SCH (19:02)
[2019-07-10] MEDS: METOPROLOL XL 50 MG TAB PO SCH (05:06)
[2019-07-10] MEDS: LIDOCAINE 4% PATCH TOP SCH (07:41)
[2019-07-10] MEDS: INSULIN -REGULAR HUMAN 50 UNIT/0.5 ML ML SQ SCH ×2 (07:41→20:00)
[2019-07-10] MEDS: NYSTATIN PWDR 100000 UNIT/GM TOP SCH ×2 (08:36→20:00)
[2019-07-10] MEDS: CITALOPRAM 10 MG TABLET PO SCH (08:36)
[2019-07-10] MEDS: APIXABAN 5 MG TABLET PO SCH (08:36)
[2019-07-10] MEDS: FE SULF/FA/VIT B COMP & C TAB PO SCH (08:36)
[2019-07-10] MEDS: MAGNESIUM OXIDE 400 MG TAB PO SCH ×3 (08:37→20:20)
[2019-07-10] MEDS: POTASSIUM CL SA 10 MEQ TAB PO SCH (08:37)
[2019-07-10] MEDS: CRANBERRY FRUIT EXTRACT 200 MG CAP PO SCH ×2 (08:37→20:19)
[2019-07-10] MEDS: METFORMIN HCL 500 MG TAB PO SCH (08:37)
[2019-07-10] MEDS: BACLOFEN 10 MG TAB PO SCH ×2 (08:38→20:20)
[2019-07-10] MEDS: FUROSEMIDE 20 MG TABLET PO SCH (08:38)
[2019-07-10] MEDS: TRAMADOL HCL 50 MG TAB PO PRN ×2 (08:39→13:01)
[2019-07-10] MEDS: VALSARTAN 40 MG TAB PO SCH (08:41)
[2019-07-10] MEDS: PROMOD 30 ML DOSE PO SCH ×2 (08:41→20:21)
[2019-07-10] MEDS: FERROUS SULFATE 325 MG TAB PO SCH (09:19)
[2019-07-10] MEDS: TAMSULOSIN 0.4 MG SR CAP PO SCH (20:19)
[2019-07-10] MEDS: ATORVASTATIN 10 MG TAB PO SCH (20:20)
[2019-07-10] MEDS: GABAPENTIN 300 MG CAP PO SCH (20:21)
[2019-07-11] MEDS: TRAMADOL HCL 50 MG TAB PO PRN ×4 (00:48→19:57)
[2019-07-11] MEDS: METOPROLOL XL 50 MG TAB PO SCH (04:44)
[2019-07-11] MEDS: INSULIN -REGULAR HUMAN 50 UNIT/0.5 ML ML SQ SCH ×2 (07:18→19:58)
[2019-07-11] MEDS: CITALOPRAM 10 MG TABLET PO SCH (07:50)
[2019-07-11] MEDS: FE SULF/FA/VIT B COMP & C TAB PO SCH (07:51)
[2019-07-11] MEDS: FERROUS SULFATE 325 MG TAB PO SCH (07:51)
[2019-07-11] MEDS: POTASSIUM CL SA 10 MEQ TAB PO SCH (07:51)
[2019-07-11] MEDS: APIXABAN 5 MG TABLET PO SCH (07:51)
[2019-07-11] MEDS: METFORMIN HCL 500 MG TAB PO SCH (07:51)
[2019-07-11] MEDS: CRANBERRY FRUIT EXTRACT 200 MG CAP PO SCH ×2 (07:51→19:57)
[2019-07-11] MEDS: FUROSEMIDE 20 MG TABLET PO SCH (07:52)
[2019-07-11] MEDS: VALSARTAN 40 MG TAB PO SCH (07:52)
[2019-07-11] MEDS: BACLOFEN 10 MG TAB PO SCH ×2 (07:53→19:57)
[2019-07-11] MEDS: PROMOD 30 ML DOSE PO SCH ×2 (07:53→19:58)
[2019-07-11] MEDS: LIDOCAINE 4% PATCH TOP SCH (08:00)
[2019-07-11] MEDS: NYSTATIN PWDR 100000 UNIT/GM TOP SCH ×2 (08:46→19:56)
[2019-07-11] MEDS ORDERED: ONDANSETRON 4 MG (ODT) TAB PO PRN (12:42)
--- NOTE | 2019-07-11 14:45 | FAST ---
ENCOUNTER DATE AND TIME: 07/11/2019 08:00 (CDT) NAME PRICE ROGERS DATE OF : 1940 DATE OF ADMISSION: 06/16/2019 09:16 (CDT) PHONE: AGE: 79 N# [id number] GENDER: Male ENCOUNTER PHYSICIAN: Dr. Abdirahman Zepeda M.D. ADMISSION DIAGNOSIS: - Orthopaedic Disorders 08 - Unilateral Hip Fracture (08.11) displaced femoral neck fracture on the left. EATING: Not assessed/no information CODE: - ORAL HYGIENE: ORAL HYGIENE - STEP 1: Does the patient complete the activity by him/herself with no assistance (physical, verbal/nonverbal cueing, setup/clean-up)? Yes. 1. [id number] ADMISSION PERFORMANCE: Independent CODE: 06 TOILETING HYGIENE: Not assessed/no information CODE: - BATHING: SHOWER/BATHE SELF - STEP 1: Does the patient complete the activity by him/herself with no assistance (physical, verbal/nonverbal cueing, setup/clean-up)? No. SHOWER/BATHE SELF - STEP 2: Does the patient need only setup/clean-up assistance from one helper? No. SHOWER/BATHE SELF - STEP 3: Does the patient need only verbal/nonverbal cueing or touching/steadying/contact guard assistance fro m one helper? Yes. 1. [id number] ADMISSION PERFORMANCE: Supervision or touching assistance CODE: 04 DRESSING - UPPER BODY: DRESSING - UPPER BODY - STEP 1: Does the patient complete the activity by him/herself with no assistance (physical, verbal/nonverbal cueing, setup/clean-up)? No. DRESSING - UPPER BODY - STEP 2: Does the patient need only setup/clean-up assistance from one helper? No. DRESSING - UPPER BODY - STEP 3: Does the patient need only verbal/nonverbal cueing or touching/steadying/contact guard assistance fro m one helper? Yes. 1. [id number] ADMISSION PERFORMANCE: Supervision or touching assistance CODE: 04 DRESSING - LOWER BODY: DRESSING - LOWER BODY - STEP 1: Does the patient complete the activity by him/herself with no assistance (physical, verbal/nonverbal cueing, setup/clean-up)? No. DRESSING - LOWER BODY - STEP 2: Does the patient need only setup/clean-up assistance from one helper? No. DRESSING - LOWER BODY - STEP 3: Does the patient need only verbal/nonverbal cueing or touching/steadying/contact guard assistance fro m one helper? Yes. 1. [id number] ADMISSION PERFORMANCE: Supervision or touching assistance CODE: 04 PUTTING ON/TAKING OFF FOOTWEAR: FOOTWEAR - STEP 1: Does the patient complete the activity by him/herself with no assistance (physical, verbal/nonverbal cueing, setup/clean-up)? No. FOOTWEAR - STEP 2: Does the patient need only setup/clean-up assistance from one helper? No. FOOTWEAR - STEP 3: Does the patient need only verbal/nonverbal cueing or touching/steadying/contact guard assistance fro m one helper? No. FOOTWEAR - STEP 4: Does the patient need physical assistance - for example lifting or trunk support from one helper - wi th the helper providing less than half of the effort? Yes. 1. [id number] ADMISSION PERFORMANCE: Partial/moderate assistance CODE: 03 DOES THE PATIENT USE A WHEELCHAIR/SCOOTER? CODE: EXPR INDICATE THE TYPE OF WHEELCHAIR/SCOOTER USED: CODE: EXPR INDICATE THE TYPE OF WHEELCHAIR/SCOOTER USED: CODE: EXPR BLADDER AND BOWEL: CODE: EXPR CODE: EXPR SIGNATURE PANEL: The following modified sections: 1. [id number] Admission Performance, 1. [id number] Admission Performance, 1. [id number] Admission Performance, 1. [id number] Admission Performance, 1. [id number] Admission Performance were [electronically] signed by ROXANNE Wiseman on ThuJul 11 2019 14:43:57 GMT-0500 (Central Daylight Time)
--- NOTE | 2019-07-11 19:27 | R.PN ---
ENCOUNTER DATE AND TIME: 07/11/2019 19:22 (CDT) NAME PRICE ROGERS DATE OF : 1940 DATE OF ADMISSION: 06/16/2019 09:16 (CDT) displaced femoral neck fracture on the leftCHIEF COMPLAINT: Left femoral neck fracture s/p left bipolar hemiarthroplasty. Chronic stroke with left hemiparesis. SUBJECTIVE: Pt denied any Shortness of Breath. Pt denied any depression. WBC 6.5, Hgb 10.6, PLT 347, glucose 84 to 110, prealbumin 19.1. He ambulated 250' with standby assistance using a quad cane. Self-propelled wheelchair 250' with mini mum assistance and multiple rest breaks. Up and down 13 stairs with standby assistance using the [employer] t-sided hand rail. Mr. Rogers did multiple stand and pivot transfers with moderate assistance using a quad cane in the right hand. He reports 2-3/10 pain less and less muscle spasms in the left hip and thigh. His left hip x-ray show s expected findings post surgically without displacement of hardware. He now has pain patches (4% lid ocaine) on the left hip and knee. His tramadol is decreased to 50 mg every 4-6 hours, norco 2.5/325 every 4 hours was stopped. Decrease gabapentin 300 mg twice daily. Glucose range 100 to 160. He has no new complaints. VITAL SIGNS Temperature: 98.2 F SBP/DBP: 123/60 Pulse: 69 Resp: 16 MEDICATION ALLERGIES: No Known Drug Allergies (NKDA) ENVIRONMENTAL ALLERGIES: - Substance Allergies None Known - Other Allergies honey bee venom NURSING: - Shower allowing shower - Skin care per protocol PRECAUTIONS: - Weight Bearing Precaution WBAT left LE ACTIVITIES OOB only with supervision THERAPIES: - Dietary and Nutrition Adequate Nutrition. Nutritional Education. Nutritional Supplements. PHYSICAL EXAM - Gen Alert and awake Lying in bed No apparent distress Oriented to: person, time, and place - Skin No skin breakdown. Normacephalic - Eyes No abnormalities - ENMT No abnormalities - Neck No abnormalities - CVS RRR - Chest No abnormalities - Abd Soft - GI Non distended Deferred - No abnormalities - Ext No significant edema - MSK 1-2+/5 weakness in left upper and lower extremity. - Neuro 1-2+/5 weakness in left upper and lower extremity. - Psych Mild anxiety. ASSESSMENT: Pt. is a 79 yo Right-handed white male.On 06/10/2019 he was admitted to [facility] and under went emergency surgery for displaced femoral neck fracture on the left (Unilateral Hip Fracture) by DR DAILEY.Pre-morbidly, Pt. was ind ependent/mod-I in Transfers Control, Locomotion, and Self-Care; and he had good Balance, Safety Aware ness, Social Cognition, and Sphincter Control.Currently, he has deficits of Transfers Control, Locomo tion, Balance, Safety Awareness, and Self-Care.Pt. is now referred to [facility] for acute in-patient rehabilitation in order to maximize patient's functional independence in acti vities of daily living, strength, ROM, and mobility.- Rehab Goal Patient has realistic goal of being discharged at assistance level 6-Maria E to reside at Home with Att endant. MDM/PLAN: - Physical Therapy Decreased range of motion - to improve, our physical therapists will perform initial evaluation of p t's status upon admission and devise an individualized program for increasing patient's Range of [place] on. Gait dysfunction - to improve, our physical therapists will perform initial evaluation of pt's statu s upon admission and devise an individualized program for Gait Training, and Wheel Chair mobility Inability to transfer - to improve, our physical therapists will perform initial evaluation of pt's status upon admission and devise an individualized program for Bed mobility Need for home safety evaluation - to improve, our physical therapists will perform initial evaluatio n of pt's status upon admission and devise an individualized program for Home Evaluation Need in caregiver upon discharge - to improve, our physical therapists will perform initial evaluati on of pt's status upon admission and devise an individualized program for Caregiver Training Edema - to improve, our physical therapists will perform initial evaluation of pt's status upon admi ssion and devise an individualized program for Elevation Training, and Lymphedema Therapy New precaution - to improve, our physical therapists will perform initial evaluation of pt's status upon admission and devise an individualized program for Patient precaution education Poor balance - to improve, our physical therapists will perform initial evaluation of pt's status up on admission and devise an individualized program for Balance Training Weakness - to improve, our physical therapists will perform initial evaluation of pt's status upon a dmission and devise an individualized program for Aquatic Therapy, Neuromuscular Reeducation, and Str engthening Achieving independence - to improve, our physical therapists will perform initial evaluation of pt's status upon admission and devise an individualized program for Community Reintegration Activities - Occupational Therapy ADL deficits - to improve, our occupation therapists will perform initial evaluation of pt's status upon admission and devise an individualized program for Bathing, Bed mobility, Community Reintegratio n, Cooking, Dressing, Eating, Fine Motor Skills, Grooming, Homemaking, Kitchen Mobility, Laundry, Pat ient Education, Safety Awareness, Splinting - Positioning, Transfers(Toilet, Tub, Shower), and Wheel Chair Management Need for care administrative tech - to improve, our occupation therapists will perform initial evaluation of pt's status upon admission and devise an individualized program for Caregiver Training Weakness - to improve, our occupation therapists will perform initial evaluation of pt's status upon admission and devise an individualized program for Aquatic Therapy, Balance, Endurance, UE ROM, and UE strengthening - Other See attached MAR (Medication Administration Record) - Anterior Hip Precaution No abduction No active extension No adduction across midline No external rotation No hip flexion >90 degrees No internal rotation - Diet - Liquid Texture Continue Regular - Tube Feed Continue N/A - Diet Type Continue Regular - Posterior Hip Precaution No adduction across midline No external rotation No hip flexion >90 degrees No internal rotation No wheel chair propulsion - Weight Bearing Precaution WBAT left LE - Skin care per protocol - Diet - Solid Texture Continue Regular - Shower allowing shower FUNCTIONAL STATUS: UPDATED AT WEEKLY TEAM CONFERENCE - Walking Same score based on distance walked: 0(N/A) - Wheelchair Same FUNCTIONAL STATUS: - Self-Care A. Eating Maria E B. Grooming Maria E C. Bathing maxA D. Dressing - Upper modA E. Dressing - Lower modA F. Toileting modA - Sphincter Control G. Bladder control Anil H. Bowel control Anil - Transfers Control I. Bed/Chair/Wheelchair modA J. Toilet modA K. Tub/Shower modA - Locomotion L. Walk/Wheelchair (B) modA M. Stairs ADNO - Communication N. Comprehension (B) Maria E O. Expression (B) sup - Social Cognition P. Social Interaction sup Q. Problem Solving sup R. Memory Maria E - Endurance Fair - Balance Poor - Safety Awareness Fair QI SCORES: - Self-Care A. Eating 04-Supervision or touching assistance B. Oral hygiene 04-Supervision or touching assistance C. Toileting hygiene 02-Substantial/maximal assistance E. Shower/bathe self 01-Dependent F. Upper body dressing 02-Substantial/maximal assistance G. Lower body dressing 10-Not attempted due to environmental limitations H. Putting on/taking off footwear 88-Not attempted due to medical condition or safety concerns - Mobility A. Roll left and right 02-Substantial/maximal assistance B. Sit to lying 02-Substantial/maximal assistance C. Lying to sitting on side of bed 02-Substantial/maximal assistance D. Sit to stand 02-Substantial/maximal assistance E. Chair/[id number] transfer 01-Dependent F. Toilet transfer 01-Dependent G. Car transfer 88-Not attempted due to medical condition or safety concerns I. Walk 10 feet 88-Not attempted due to medical condition or safety concerns J. Walk 50 feet with two turns 88-Not attempted due to medical condition or safety concerns K. Walk 150 feet 88-Not attempted due to medical condition or safety concerns L. Walking 10 feet on uneven surfaces 88-Not attempted due to medical condition or safety concerns M. 1 step (curb) 88-Not attempted due to medical condition or safety concerns N. 4 steps 88-Not attempted due to medical condition or safety concerns O. 12 steps 88-Not attempted due to medical condition or safety concerns P. Picking up object 88-Not attempted due to medical condition or safety concerns R. Wheel 50 feet with two turns S. Wheel 150 feet - Bladder and Bowel Bladder continence 0-Always continent Bowel continence 0-Always continent - Endurance Poor - Balance Poor - Safety Awareness Poor CURRENT FUNC. DEFICITS: Self-Care, Mobility, Endurance, Balance, and Safety Awareness SIGNATURE PANEL: (CDT)
[2019-07-11] MEDS: DOCUSATE NA/SENNA CONC 1 TAB PO PRN (19:56)
[2019-07-11] MEDS: GABAPENTIN 300 MG CAP PO SCH (19:59)
[2019-07-11] MEDS: ATORVASTATIN 10 MG TAB PO SCH (20:00)
[2019-07-11] MEDS: MELATONIN 3 MG TABLET PO PRN (20:00)
[2019-07-11] MEDS: MAGNESIUM OXIDE 400 MG TAB PO SCH (20:00)
[2019-07-11 22:04] VITALS: TEMP 98.8
[2019-07-12] MEDS: METOPROLOL XL 50 MG TAB PO SCH (05:08)
[2019-07-12] MEDS: TRAMADOL HCL 50 MG TAB PO PRN ×2 (08:00→12:49)
[2019-07-12] MEDS: INSULIN -REGULAR HUMAN 50 UNIT/0.5 ML ML SQ SCH (08:00)
[2019-07-12] MEDS: LIDOCAINE 4% PATCH TOP SCH (08:00)
[2019-07-12] MEDS: PROMOD 30 ML DOSE PO SCH (08:00)
[2019-07-12] MEDS: VALSARTAN 40 MG TAB PO SCH (08:00)
[2019-07-12 08:25] VITALS: BP 109/59
[2019-07-12] MEDS: FUROSEMIDE 20 MG TABLET PO SCH (08:39)
[2019-07-12] MEDS: CRANBERRY FRUIT EXTRACT 200 MG CAP PO SCH (08:39)
[2019-07-12] MEDS: POTASSIUM CL SA 10 MEQ TAB PO SCH (08:39)
[2019-07-12] MEDS: NYSTATIN PWDR 100000 UNIT/GM TOP SCH (08:39)
[2019-07-12] MEDS: MAGNESIUM OXIDE 400 MG TAB PO SCH (08:40)
[2019-07-12] MEDS: FERROUS SULFATE 325 MG TAB PO SCH (08:40)
[2019-07-12] MEDS: APIXABAN 5 MG TABLET PO SCH (08:40)
[2019-07-12] MEDS: BACLOFEN 10 MG TAB PO SCH (08:41)
[2019-07-12] MEDS: METFORMIN HCL 500 MG TAB PO SCH (08:42)
[2019-07-12] MEDS: FE SULF/FA/VIT B COMP & C TAB PO SCH (08:42)
[2019-07-12] MEDS: CITALOPRAM 10 MG TABLET PO SCH (08:42)
--- NOTE | 2019-07-12 18:33 | R.PN ---
ENCOUNTER DATE AND TIME: 07/12/2019 18:30 (CDT) NAME PRICE ROGERS DATE OF : 1940 DATE OF ADMISSION: 06/16/2019 09:16 (CDT) displaced femoral neck fracture on the leftCHIEF COMPLAINT: Left femoral neck fracture s/p left bipolar hemiarthroplasty. Chronic stroke with left hemiparesis. SUBJECTIVE: Pt denied any Shortness of Breath. Pt denied any depression. WBC 6.5, Hgb 10.6, PLT 347, glucose 92-145, prealbumin 19.1. He ambulated 250' with standby assistance using a quad cane. Self-propelled wheelchair 250' with mini mum assistance and multiple rest breaks. Up and down 13 stairs with standby assistance using the [employer] t-sided hand rail. Mr. Rogers did multiple stand and pivot transfers with moderate assistance using a quad cane in the right hand. He reports 1-2/10 pain less and less muscle spasms in the left hip and thigh. His left hip x-ray show s expected findings post surgically without displacement of hardware. He now has pain patches (4% lid ocaine) on the left hip and knee. His tramadol is decreased to 50 mg every 4-6 hours, norco 2.5/325 every 4 hours was stopped. Decrease gabapentin 300 mg at night. Glucose range 100 to 160. He has no new complaints. VITAL SIGNS Temperature: 98.8 F SBP/DBP: 109/59 Pulse: 72 Resp: 16 MEDICATION ALLERGIES: No Known Drug Allergies (NKDA) ENVIRONMENTAL ALLERGIES: - Substance Allergies None Known - Other Allergies honey bee venom NURSING: - Shower allowing shower - Skin care per protocol PRECAUTIONS: - Weight Bearing Precaution WBAT left LE ACTIVITIES OOB only with supervision THERAPIES: - Dietary and Nutrition Adequate Nutrition. Nutritional Education. Nutritional Supplements. PHYSICAL EXAM - Gen Alert and awake Lying in bed No apparent distress Oriented to: person, time, and place - Skin No skin breakdown. Normacephalic - Eyes No abnormalities - ENMT No abnormalities - Neck No abnormalities - CVS RRR - Chest No abnormalities - Abd Soft - GI Non distended Deferred - No abnormalities - Ext No significant edema - MSK 1-2+/5 weakness in left upper and lower extremity. - Neuro 1-2+/5 weakness in left upper and lower extremity. - Psych Mild anxiety. ASSESSMENT: Pt. is a 79 yo Right-handed white male.On 06/10/2019 he was admitted to [facility] and under went emergency surgery for displaced femoral neck fracture on the left (Unilateral Hip Fracture) by DR DAILEY.Pre-morbidly, Pt. was ind ependent/mod-I in Transfers Control, Locomotion, and Self-Care; and he had good Balance, Safety Aware ness, Social Cognition, and Sphincter Control.Currently, he has deficits of Transfers Control, Locomo tion, Balance, Safety Awareness, and Self-Care.Pt. is now referred to [facility] for acute in-patient rehabilitation in order to maximize patient's functional independence in acti vities of daily living, strength, ROM, and mobility.- Rehab Goal Patient has realistic goal of being discharged at assistance level 6-Maria E to reside at Home with Att endant. MDM/PLAN: - Physical Therapy Decreased range of motion - to improve, our physical therapists will perform initial evaluation of p t's status upon admission and devise an individualized program for increasing patient's Range of [place] on. Gait dysfunction - to improve, our physical therapists will perform initial evaluation of pt's statu s upon admission and devise an individualized program for Gait Training, and Wheel Chair mobility Inability to transfer - to improve, our physical therapists will perform initial evaluation of pt's status upon admission and devise an individualized program for Bed mobility Need for home safety evaluation - to improve, our physical therapists will perform initial evaluatio n of pt's status upon admission and devise an individualized program for Home Evaluation Need in caregiver upon discharge - to improve, our physical therapists will perform initial evaluati on of pt's status upon admission and devise an individualized program for Caregiver Training Edema - to improve, our physical therapists will perform initial evaluation of pt's status upon admi ssion and devise an individualized program for Elevation Training, and Lymphedema Therapy New precaution - to improve, our physical therapists will perform initial evaluation of pt's status upon admission and devise an individualized program for Patient precaution education Poor balance - to improve, our physical therapists will perform initial evaluation of pt's status up on admission and devise an individualized program for Balance Training Weakness - to improve, our physical therapists will perform initial evaluation of pt's status upon a dmission and devise an individualized program for Aquatic Therapy, Neuromuscular Reeducation, and Str engthening Achieving independence - to improve, our physical therapists will perform initial evaluation of pt's status upon admission and devise an individualized program for Community Reintegration Activities - Occupational Therapy ADL deficits - to improve, our occupation therapists will perform initial evaluation of pt's status upon admission and devise an individualized program for Bathing, Bed mobility, Community Reintegratio n, Cooking, Dressing, Eating, Fine Motor Skills, Grooming, Homemaking, Kitchen Mobility, Laundry, Pat ient Education, Safety Awareness, Splinting - Positioning, Transfers(Toilet, Tub, Shower), and Wheel Chair Management Need for rn intensive care unit - to improve, our occupation therapists will perform initial evaluation of pt's status upon admission and devise an individualized program for Caregiver Training Weakness - to improve, our occupation therapists will perform initial evaluation of pt's status upon admission and devise an individualized program for Aquatic Therapy, Balance, Endurance, UE ROM, and UE strengthening - Other See attached MAR (Medication Administration Record) - Anterior Hip Precaution No abduction No active extension No adduction across midline No external rotation No hip flexion >90 degrees No internal rotation - Diet - Liquid Texture Continue Regular - Tube Feed Continue N/A - Diet Type Continue Regular - Posterior Hip Precaution No adduction across midline No external rotation No hip flexion >90 degrees No internal rotation No wheel chair propulsion - Weight Bearing Precaution WBAT left LE - Skin care per protocol - Diet - Solid Texture Continue Regular - Shower allowing shower FUNCTIONAL STATUS: UPDATED AT WEEKLY TEAM CONFERENCE - Walking Same score based on distance walked: 0(N/A) - Wheelchair Same FUNCTIONAL STATUS: - Self-Care A. Eating Maria E B. Grooming Maria E C. Bathing maxA D. Dressing - Upper modA E. Dressing - Lower modA F. Toileting modA - Sphincter Control G. Bladder control Anil H. Bowel control Anil - Transfers Control I. Bed/Chair/Wheelchair modA J. Toilet modA K. Tub/Shower modA - Locomotion L. Walk/Wheelchair (B) modA M. Stairs ADNO - Communication N. Comprehension (B) Maria E O. Expression (B) sup - Social Cognition P. Social Interaction sup Q. Problem Solving sup R. Memory Maria E - Endurance Fair - Balance Poor - Safety Awareness Fair QI SCORES: - Self-Care A. Eating 04-Supervision or touching assistance B. Oral hygiene 04-Supervision or touching assistance C. Toileting hygiene 02-Substantial/maximal assistance E. Shower/bathe self 01-Dependent F. Upper body dressing 02-Substantial/maximal assistance G. Lower body dressing 10-Not attempted due to environmental limitations H. Putting on/taking off footwear 88-Not attempted due to medical condition or safety concerns - Mobility A. Roll left and right 02-Substantial/maximal assistance B. Sit to lying 02-Substantial/maximal assistance C. Lying to sitting on side of bed 02-Substantial/maximal assistance D. Sit to stand 02-Substantial/maximal assistance E. Chair/cua-si-xhluc transfer 01-Dependent F. Toilet transfer 01-Dependent G. Car transfer 88-Not attempted due to medical condition or safety concerns I. Walk 10 feet 88-Not attempted due to medical condition or safety concerns J. Walk 50 feet with two turns 88-Not attempted due to medical condition or safety concerns K. Walk 150 feet 88-Not attempted due to medical condition or safety concerns L. Walking 10 feet on uneven surfaces 88-Not attempted due to medical condition or safety concerns M. 1 step (curb) 88-Not attempted due to medical condition or safety concerns N. 4 steps 88-Not attempted due to medical condition or safety concerns O. 12 steps 88-Not attempted due to medical condition or safety concerns P. Picking up object 88-Not attempted due to medical condition or safety concerns R. Wheel 50 feet with two turns S. Wheel 150 feet - Bladder and Bowel Bladder continence 0-Always continent Bowel continence 0-Always continent - Endurance Poor - Balance Poor - Safety Awareness Poor CURRENT FUNC. DEFICITS: Self-Care, Mobility, Endurance, Balance, and Safety Awareness SIGNATURE PANEL: (CDT)
== END 2019-07-12 14:30 | disposition home health service (06) | DRG 560 ==
LOC: 5TH 06-16 14:29 → UNDOADMIN 06-16 14:29 → 3RD 06-16 14:29
PROVIDERS: ADMIT Psychiatry & Neurology Neurology with Special Qualifications in Child Neurology; ATTEND Psychiatry & Neurology Neurology with Special Qualifications in Child Neurology
DX: S72.002D Fracture of unspecified part of neck of left femur, subsequent encounter for closed fracture with routine healing (principal); I69.354 Hemiplegia and hemiparesis following cerebral infarction affecting left non-dominant side; F33.3 Major depressive disorder, recurrent, severe with psychotic symptoms; E78.5 Hyperlipidemia, unspecified; Z60.2 Problems related to living alone; Z79.01 Long term (current) use of anticoagulants
CPT/HCPCS: 36415; 80048; 81001; 82040; 82947; 83735; 84134; 85025; 87077; 87086; 87088; 87186; 92507; 92523; 92526; 97110; 97112; 97116; 97127; 97161; 97530; 97542

== ENCOUNTER 2020-03-14 02:09 | Inpatient (IN) | payer OTHER ==
--- OUTSIDE RECORDS SUMMARY | 2020-03-14 02:11 | XMS REPORT | Clinical Summary ---
:1940 Author Organization [facility] Address [address] [place] [id number] Care Team Providers Name Role Phone MD Kashmir Primary Care Provider Allergies Active Allergy Reactions Severity Noted Date Comments Bee Sting Kit Swelling 02/22/2020 Medications No known medications Active Problems No known active problems Encounters Date Type Specialty Care Team Description 02/22/2020 Clinical Support Internal Medicine Encoun ter for immunization (Primary Dx) after 03/14/2019 Immunizations Name Administration Dates Next Due PFIZER COVID-19 MRNA VACCINATION 02/22/2020 Social History Tobacco Use Types Packs/Day Years Used Date Never Assessed Sex Assigned at Date Recorded Not on file Job Start Date Occupation Industry Not on file Not on file Not on file Last Filed Vital Signs Not on file Plan of Treatment Date Type Specialty Care Team Description 03/14/2020 Clinical Support Internal Medicine Health Maintenance Due Date Last Done Comments SHINGLES VACCINES (#1) 1992 65+ PNEUMOCOCCAL VACCINE (1 of 1 - PPSV23) 05/14/2007 INFLUENZA VACCINE 09/10/2019 COVID-19 VACCINE (2 of 2 - Pfizer series) 03/14/20202020 Results Not on fileafter 03/14/2019 Advance Directives For more information, please contact: [phone] Type Date Recorded Patient Form Maker Explanati on Advance Directives, 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
--- OUTSIDE RECORDS SUMMARY | 2020-03-14 02:11 | XMS REPORT | Clinical Summary ---
:1940 Author Organization [facility] Address [address] [place] [address] Care Team Providers Name Role Phone MD [...] Signs Not on file Plan of Treatment Not on file Results Not on fileafter 03/14/2019 Insurance Payer Benefit Plan / Subscriber ID Effective Dates Phone Addre ss Type Group AETNA - AETNA MEDICARE [id number] 2016-Dayanara [phone] [address] MEDICARE MGD HMO POS PPO t [id number] [place] [address] Guarantor Name Account Type Relation to Date of Phone Billing Patient Address Leonidas Corona Personal/Family Self 1940 [address] [place] ([place] [address]
--- OUTSIDE RECORDS SUMMARY | 2020-03-14 02:11 | XMS REPORT | Continuity of Care Document ---
:1940 Author Organization [facility] t Address [address] [place] [address] [address] [place] [address] Care Team Providers Name Role Phone Kashmir OLSEN Primary Care Physician Pob1, Care Clinic Attending Clinician Unavailable Payers Payer Name Policy Type Policy Effective Date Expiration Date Sour ce Number AETNA MEDICAREAETNA [id number] 2013 [place] MEDICARE HMO/PPO 00:00:00 Methodis t [id number] -PresentHMO Problems Condition Condition Condition Status Onset Resolution Last Treating Co mments Source Name Details Category Date Date Treatment Clinician Date Elbow Elbow Diagnosis Active [facility] St pain, left pain, left Jennifer kes [facility] Closed Closed Diagnosis Active [facility] St displaced displaced Luke s - fracture fracture Memori a of head of of head of l left left Outpati radius radius ent with with Clinics routine routine healing, healing, subsequent subsequent encounter encounter Allergies, Adverse Reactions, Alerts Allergy Allergy Status Severity Reaction(s) Onset Inactive Treating Comm ents Source Name Type Date Date Clinician Bee Propensi Active Swelling [place] Sting ty to 02-21 Methodi Kit adverse 00:00: st reaction 00 s to drug Social History Social Habit Start Date Stop Date Quantity Comments Source Sex Assigned At [facility] Tobacco use and 2016-11-12 2016-11-[address] Jennifer kes - exposure 00:00:00 00:00:00 [facility] Center Alcohol intake 2016-11-12 2016-11-12 [facility] (finding) Alcohol Comment 2016-11-12 2016-11-12 [facility] glasses [facility]:00:00 of wine daily Medical Nancy ter Smoking Status Start Date Stop Date Source Never sm[facility] Medications Ordered Filled Start Stop Current Ordering Indication Dosage Frequency Signature Comments Components Source Medication Medication Date Date Medication? Clinician (SIG) Name Name Erendira Krishna Yes Blu [address] [facility] - 00:[facility]: Mem[facility] 00 [facility] ent [facility] Xanax Xanax Yes Blu [address] - 00:00: Memoria 00 [facility] ent [facility] Xarelto Xarelto Yes Blu [address] [facility] Gray with food [facility] - 00:00: Memoria 00 [facility] Metformin Metformin Yes Blu [address] HCl HCl 7-31 [facility] with a [facility] - 00:00: meal Memoria 00 [facility] ent [facility] Crestor Crestor 0 Yes Blu [address] [facility] - 00:00: Memoria 00 [facility] ent [facility] rosuvastati 2016-02 Yes 20mg QD Take [address] n (CRESTOR) 0-04 by mouth Luke s - 20 MG 11:48: daily. Medical tablet 55 [place] ALPRAZolam 2016-02 Yes 2mg QD Take [address] (XANAX) 2 0-04 by mouth [facility]ukes - MG tablet 11:48: daily. Medica l 55 [place] olmesartan 2016-02 Yes 20mg QD Take [address] (BENICAR) 0-04 by mouth [facility] - 20 MG 11:48: daily. Medical tablet 55 Center metFORMIN 2016-02 Yes 500mg Take [address] (GLUCOPHAGE 0-04 mg by Lukes - ) 500 MG 11:48: mouth Medical tablet 55 daily with Center breakfast. rivaroxaban 2016-02 Yes 20mg QD Take [address] (XARELTO) 0-04 by mouth [facility]ukes - 20 mg Tab 11:48: nightly. Medi brien tablet 55 Center multivitami 2016-02 Yes 1{tbl} QD Take [address] n per 0-04 tablet by [facility] - tablet 11:48: mouth Medical 55 daily. [place] Tamsulosin Tamsulosin Yes Chacha [address] HCl HCl [place] [facility] Simvastatin Simvastatin Yes Chacha [address] [place] in the [facility] - evening [facility] Gabapentin Gabapentin Yes Chacha [address] [facility] [place] [facility] Sennosides Sennosides Yes Chacha [address] [place] at bedtime [facility] - as needed [facility] Lisinopril Lisinopril Yes Chacha [address] [facility] [place] [facility] Metformin Metformin Yes Chacha [address] HCl HCl [place] with a [facility] - meal [facility] Flecainide Flecainide Yes Chacha as [facility] Acetate Acetate [place] directed L ukes - [facility] Apixaban Apixaban Yes Chacha as [facility] directed [facility] Magnesium Magnesium Yes Chacha [address] Oxide Oxide [place] as needed [facility] Trazodone Trazodone Yes Chacha [address] HCl HCl [place] at bedtime [facility] - as needed [facility] Tetrahydroz Tetrahydroz Yes Chacha [address] oline HCl oline HCl [place] into L ukes - affected Memoria eye as l needed Outpati ent Clinics Ondansetron Ondansetron Yes Chacha [address] HCl HCl [place] [facility] Olmesartan Olmesartan Yes Chacha [address] Medoxomil Medoxomil [place] L [facility] - [facility] Metoprolol Metoprolol Yes Chacha [address] Succinate Succinate Uma L ukes - ER ER [facility] Citalopram Citalopram Yes Chacha 0.[address] Hydrobromid Hydrobromid [facility] e e [facility] Aspirin 81 Aspirin 81 Yes Chacha [address] [facility] [place] [facility] Furosemide Furosemide Yes Chacha [address] [facility] [place] [facility] Immunizations Ordered Immunization Filled Immunization Date Status Commen ts Source Name Name PFIZER COVID-19 MRNA 2020-02-22 Completed [place] VACCINATION 00:00:00 [facility] Procedures This patient has no known procedures. Plan of Care Planned Activity Planned Date Details Comments Source Future Scheduled 2020-03-14 COVID-19 VACCINE (2 of [place] [facility] 00:00:00 2 - Pfizer series) [code = COVID-19 VACCINE (2 of 2 - Pfizer series)] Future Scheduled 2019-09-10 INFLUENZA VACCINE [place] [facility] 00:00:00 [code = INFLUENZA VACCINE] Future Scheduled 2007-05-14 65+ PNEUMOCOCCAL [place] [facility] 00:00:00 VACCINE (1 of 1 - PPSV23) [code = 65+ PNEUMOCOCCAL VACCINE (1 of 1 - PPSV23)] Future Scheduled 1992 SHINGLES VACCINES (#1) [place] [facility] 00:00:00 [code = SHINGLES VACCINES (#1)] Encounters Start End Encounter Admission Attending Care Care Encounter Source Date/Time Date/Time Type Type Clinicians Facility Department ID 2020-02-22 2020-02-22 Outpatient [facility] [id number] 090 [place] 00:00:00 00:00:[address] 2019-12-20 2019-12-20 Outpatient [facility] [id number] [facility] 2019-09-27 2019-09-27 Urgent Pob1, Acute [facility] [id number] 12:36:33 13:27:32 [facility] [id number] [place] [id number] [place] [id number] nal [address] 2019-09-19 2019-09-19 [facility] [id number] 10:30:00 10:30:00 t Specialty/U Jennifer kes - Specialty rology [facility] a /Urology Clinic [facility] ent [facility] 2017-10-20 2017-10-20 Outpatient Annelise Olguin [id number] 08:30:00 08:30:00 t Bone [facility] - and [facility] Joint [facility] a Clinic [facility] 2017-09-08 2017-09-08 Outpatient Annelise Olguin [id number] 08:30:00 08:30:00 t [facility] - and [facility] Joint [facility] a Clinic [facility] Results This patient has no known results.
[2020-03-14 03:44] LABS: Absolute Lymphocytes (CBC) 1.3 K/uL (0.7-4.9); Basophils % 0.2 % (0-1.3); Hematocrit 36.2 % (39.6-49.0); MPV 8.6 fL (7.6-11.3); Protime INR 1.32; RBC Red Blood Cell Count 3.87 M/uL (4.33-5.43)
[2020-03-14] MEDS ORDERED: ONDANSETRON 4 MG/2 ML VIAL ONE (03:45)
[2020-03-14] MEDS ORDERED: MORPHINE 2 MG/ML SYR ONE ×3 (03:45→11:09)
[2020-03-14] MEDS ORDERED: NA CHLORIDE 0.9% 1,000 ML ONE ×2 (03:46→11:09)
[2020-03-14 04:01] LABS: ALT/SGPT 22 U/L (12-78); AST/SGOT 14 U/L (15-37); Albumin 3.8 g/dL (3.4-5.0); Alkaline Phosphatase 119 U/L (45-117); BUN Blood Urea Nitrogen 22 mg/dL (7-18); Bicarbonate 32 mmol/L (21-32); Bilirubin Direct 0.2 mg/dL (0-0.2); Bilirubin Total 0.7 mg/dL (0.2-1.0); Glucose Level 127 mg/dL (74-106); Magnesium 2.2 mg/dL (1.8-2.4); NT PRO-BNP 981 pg/mL (<450); Potassium 3.9 mmol/L (3.5-5.1); Protein, Total 7.4 g/dL (6.4-8.2); Sodium Level 141 mmol/L (136-145); Troponin (Emerg Dept Use Only) < 0.02 ng/mL (0.0-0.045)
--- NOTE | 2020-03-14 06:40 | ER ---
Nurse's Notes [facility] Name: Leonidas Corona Age: 79 yrs Sex: Male : 1940 Arrival Date: 03/14/2020 Time: 02:09 Bed 3 Private MD: Diagnosis: Fall due to bumping against object;Pain in left leg-hematoma, intractable pain, non ambulatory;Contusion of other part of head-hematoma Presentation: 03/14 02:10 Chief complaint: EMS states: patient fell down a week ago. now he is complaining of rr5 pain on his left heel, pelvic and to his left shoulder. bruise on his left eye noted. 02:10 Coronavirus screen: Client denies travel out of the [place] in the last 14 days. At this rr5 time, the client does not indicate any symptoms associated with coronavirus-19. Ebola Screen: Patient negative for fever greater than or equal to 101.5 degrees Fahrenheit, and additional compatible Ebola Virus Disease symptoms Patient denies exposure to infectious person. Patient denies travel to an Ebola-affected area in the 21 days before illness onset. Initial Sepsis Screen: Does the patient meet any 2 criteria? No. Patient's initial sepsis screen is negative. Does the patient have a suspected source of infection? No. Patient's initial sepsis screen is negative. Risk Assessment: Do you want to hurt yourself or someone else? Patient reports no desire to harm self or others. Onset of symptoms was March 07, 2020. 02:10 Method Of Arrival: EMS: [facility] rr5 02:10 Acuity: EFFIE 3 rr5 Historical: - Allergies: 02:10 No Known Allergies; rr5 - PMHx: 02:10 Atrial Fib; CVA; mitral valve repair; High Cholesterol; rr5 - PSHx: 02:10 hip surgery; Heart Surgery; Appendectomy; rr5 - Immunization history:: Adult Immunizations up to date. - Social history:: Smoking status: unknown Patient uses alcohol, occasionally. Patient/guardian denies using street drugs. - Family history:: not pertinent. Screenin:17 Abuse screen: Denies threats or abuse. Denies injuries from another. Nutritional rr5 screening: No deficits noted. Tuberculosis screening: No symptoms or risk factors identified. Fall Risk Fall in past 12 months (25 points). Secondary diagnosis (15 points) CVA, Gait- Impaired (20 pts.). Total Doll Fall Scale indicates High Risk Score (45 or more points). Fall prevention measures have been instituted. Side Rails Up X 2 Placed Close to Nursing Station Frequent Obs/Assessments Occuring As available patient and family educated on Fall Prevention Program and Strategies. Assessment: 02:40 General: Appears in no apparent distress. uncomfortable, Behavior is calm, cooperative, rr5 appropriate for age. 02:40 Pain: Denies pain. Complains of pain in left shoulder, left pelvic left leg Pain rr5 currently is 10 out of 10 on a pain scale. Quality of pain is described as aching, Pain began gradually, Is intermittent. Neuro: Level of Consciousness is awake, alert, obeys commands, Oriented to person, place, time, situation. Cardiovascular: Capillary refill < 3 seconds Patient's skin is warm and dry. Respiratory: Airway is patent Respiratory effort is even, unlabored, Respiratory pattern is regular, symmetrical. GI: Abdomen is round non-distended. : No signs and/or symptoms were reported regarding the genitourinary system. EENT: Eyes hematoma left eye. Derm: Skin is intact, is healthy with good turgor, Skin temperature is warm Bruising that is dark purple, on left eye. Musculoskeletal: Circulation, motion, and sensation intact. Capillary refill < 3 seconds, left hemiplagia Reports pain in left eye, left shoulder,pelvis and left leg. 04:00 Reassessment: Patient appears in no apparent distress at this time. Patient is alert, rr5 oriented x 3, equal unlabored respirations, skin warm/dry/pink. awaiting for results. 05:00 Reassessment: Patient appears in no apparent distress at this time. Patient is alert, rr5 oriented x 3, equal unlabored respirations, skin warm/dry/pink. resting eyes closed breathing spontaneously at room air. 05:10 Reassessment: complaints of left leg pain stat medication given. rr5 06:19 Reassessment: Patient appears in no apparent distress at this time. Patient and/or sf family updated on plan of care and expected duration. Pain level reassessed. Patient is alert, oriented x 3, equal unlabored respirations, skin warm/dry/pink. Vital Signs: 02:10 BP 146 / 87; Pulse 75; Resp 18; Temp 98.8; Pulse Ox 99% ; Weight 95.71 kg; Height 5 ft. rr5 7 in. (170.18 cm); Pain 10/10; 03:38 BP 135 / 80; Pulse 70; Resp 19; Pulse Ox 99% ; rr5 05:30 BP 125 / 80; Pulse 75; Resp 17; Pulse Ox 98% ; rr5 06:18 BP 112 / 87 RA Supine (auto/); Pulse 112 MON; Resp 18 S; Pulse Ox 93% on R/A; sf 02:10 Body Mass Index 33.05 (95.71 kg, 170.18 cm) rr5 ED Course: 02:09 Patient arrived in ED. rr5 02:11 Brad Kelsey, SHAY is Primary Nurse. rr5 02:12 Brian Saenz MD is Attending Physician. [facility] 02:14 Triage completed. rr5 02:17 Arm band placed on right wrist. rr5 02:30 Patient has correct armband on for positive identification. Bed in low position. Call rr5 light in reach. Side rails up X2. engraver lettering on. Pulse ox on. NIBP on. 03:20 EKG done, by ED staff, reviewed by Brian Saenz MD. rr5 03:33 Inserted saline lock: 20 gauge in right forearm, using aseptic technique. sf 04:01 CT Traumagram (Head C Spine CAP wo con) In Process Unspecified. EDMS 04:27 COVID swab sent to lab. X-ray(s) taken. sf 04:39 Pelvis XRAY In Process Unspecified. EDMS 04:44 Hip Left 2 View XRAY In Process Unspecified. EDMS 04:49 XRAY Chest (1 view) In Process Unspecified. EDMS 04:49 Shoulder Left (2 View) XRAY In Process Unspecified. EDMS 04:50 Femur Left XRAY In Process Unspecified. EDMS 06:38 Kerwin Marlow MD is Hospitalizing Provider. azeem Administered Medications: 03:30 Drug: NS 0.9% 1000 ml Route: IV; Rate: 125 ml/hr; Site: right forearm; rr5 06:46 Follow up: Response: No adverse reaction; IV Status: Infusion continued upon admission; rr5 IV Intake: 375ml 03:32 Drug: Zofran (Ondansetron) 4 mg Route: IVP; Site: right forearm; rr5 04:30 Follow up: Response: No adverse reaction rr5 03:34 Drug: morphine 2 mg {Note: rass 0.} Route: IVP; Site: left forearm; rr5 04:40 Follow up: Response: No adverse reaction; RASS: Alert and Calm (0) rr5 05:09 Drug: morphine 2 mg Route: IVP; Site: right antecubital; ea 06:46 Follow up: Response: No adverse reaction; RASS: Alert and Calm (0) rr5 Intake: 06:46 IV: 375ml; Total: 375ml. rr5 Outcome: 06:40 Decision to Hospitalize by Provider. azeem 07:00 Admitted to ER Hold. Please see [employer] for further documentation. 07:00 Condition: good 07:00 Instructed on the need for admit. 17:59 Patient left the ED. Signatures: Dispatcher [employer] EDMS Brian Saenz MD MD cha Smirch, Shelby, RN RN ss Gena Cedeño RN RN ea Roque, Raymond, RN RN rr5 Ole Fowler RN RN sf Corrections: (The following items were deleted from the chart) 03:38 02:40 Musculoskeletal: Circulation, motion, and sensation intact. Capillary refill < 3 rr5 seconds, Reports pain in left eye, left shoulder,pelvis and left leg rr5 07:16 07:11 Acuity: EFFIE 2 rr5 hb
--- NOTE | 2020-03-14 06:41 | EDPHYS ---
Physician Documentation [facility] Name: Leonidas Corona Age: 79 yrs Sex: Male : 1940 Arrival Date: 03/14/2020 Time: 02:09 Bed 3 Private MD: ED Physician Brian Saenz HPI: 03/14 03:21 This 79 yrs old Male presents to ER via EMS with complaints of Fall Injury. azeem 03:21 Details of fall: The patient fell from an upright position, while standing. Onset: The azeem symptoms/episode began/occurred 4 day(s) ago. Associated injuries: The patient sustained injury to the head, neck injury, left hip, lateral aspect of left thigh, left upper thigh and left quadriceps, contusion, decreased range of motion, painful injury, swelling. Severity of symptoms: At their worst the symptoms were mild, moderate, in the emergency department the symptoms are unchanged. The patient has not experienced similar symptoms in the past. Historical: - Allergies: 02:10 No Known Allergies; rr5 - PMHx: 02:10 Atrial Fib; CVA; mitral valve repair; High Cholesterol; rr5 - PSHx: 02:10 hip surgery; Heart Surgery; Appendectomy; rr5 - Immunization history:: Adult Immunizations up to date. - Social history:: Smoking status: unknown Patient uses alcohol, occasionally. Patient/guardian denies using street drugs. - Family history:: not pertinent. ROS: 03:21 Constitutional: Negative for fever, chills, and weight loss, Eyes: Negative for injury, azeem pain, redness, and discharge, ENT: Negative for injury, pain, and discharge, Neck: Negative for injury, pain, and swelling, Cardiovascular: Negative for chest pain, palpitations, and edema, Respiratory: Negative for shortness of breath, cough, wheezing, and pleuritic chest pain, Abdomen/GI: Negative for abdominal pain, nausea, vomiting, diarrhea, and constipation, : Negative for injury, bleeding, discharge, and swelling, Skin: Negative for injury, rash, and discoloration, Neuro: Negative for headache, weakness, numbness, tingling, and seizure, Psych: Negative for depression, anxiety, suicide ideation, homicidal ideation, and hallucinations, Allergy/Immunology: Negative for hives, rash, and allergies, Endocrine: Negative for neck swelling, polydipsia, polyuria, polyphagia, and marked weight changes, Hematologic/Lymphatic: Negative for swollen nodes, abnormal bleeding, and unusual bruising. Exam: 03:21 Constitutional: This is a well developed, well nourished patient who is awake, alert, azeem and in no acute distress. Head/Face: Normocephalic, atraumatic. Eyes: Pupils equal round and reactive to light, extra-ocular motions intact. Lids and lashes normal. Conjunctiva and sclera are non-icteric and not injected. Cornea within normal limits. Periorbital areas with no swelling, redness, or edema. ENT: Nares patent. No nasal discharge, no septal abnormalities noted. Tympanic membranes are normal and external auditory canals are clear. Oropharynx with no redness, swelling, or masses, exudates, or evidence of obstruction, uvula midline. Mucous membranes moist. Neck: Trachea midline, no thyromegaly or masses palpated, and no cervical lymphadenopathy. Supple, full range of motion without nuchal rigidity, or vertebral point tenderness. No Meningismus. Chest/axilla: Normal chest wall appearance and motion. Nontender with no deformity. No lesions are appreciated. Cardiovascular: Regular rate and rhythm with a normal S1 and S2. No gallops, murmurs, or rubs. Normal PMI, no JVD. No pulse deficits. Respiratory: Lungs have equal breath sounds bilaterally, clear to auscultation and percussion. No rales, rhonchi or wheezes noted. No increased work of breathing, no retractions or nasal flaring. Abdomen/GI: Soft, non-tender, with normal bowel sounds. No distension or tympany. No guarding or rebound. No evidence of tenderness throughout. Back: No spinal tenderness. No costovertebral tenderness. Full range of motion. Male : Normal genitalia with no discharge or lesions. Skin: Warm, dry with normal turgor. Normal color with no rashes, no lesions, and no evidence of cellulitis. Neuro: Awake and alert, GCS 15, oriented to person, place, time, and situation. Cranial nerves II-XII grossly intact. Motor strength 5/5 in all extremities. Sensory grossly intact. Cerebellar exam normal. Normal gait. Psych: Awake, alert, with orientation to person, place and time. Behavior, mood, and affect are within normal limits. 03:21 Head/face: Noted is contusion, ecchymosis, that is moderate, of the forehead, left ear and left catholic. 03:21 Musculoskeletal/extremity: Extremities: grossly normal except: noted in the left hip, lateral aspect of left thigh, left upper thigh and left quadriceps: contusion, decreased ROM, pain, swelling, tenderness, ROM: limited active range of motion due to pain, limited passive range of motion due to pain, Circulation is intact in all extremities. Sensation intact. Compartment Syndrome exam of affected extremity: is normal. Joints: limited range of motion, pain at rest, painful range of motion. 03:46 ECG was reviewed by the Attending Physician. [facility] Vital Signs: 02:10 BP 146 / 87; Pulse 75; Resp 18; Temp 98.8; Pulse Ox 99% ; Weight 95.71 kg; Height 5 ft. rr5 7 in. (170.18 cm); Pain 10/10; 03:38 BP 135 / 80; Pulse 70; Resp 19; Pulse Ox 99% ; rr5 05:30 BP 125 / 80; Pulse 75; Resp 17; Pulse Ox 98% ; rr5 06:18 BP 112 / 87 RA Supine (auto/); Pulse 112 MON; Resp 18 S; Pulse Ox 93% on R/A; sf 02:10 Body Mass Index 33.05 (95.71 kg, 170.18 cm) rr5 MDM: 02:12 Patient medically screened. [facility] 03:25 Data reviewed: vital signs, nurses notes, lab test result(s), EKG, radiologic studies, [facility] CT scan, plain films. 03/14 03:19 Order name: Basic Metabolic Panel [facility] 03/14 03:19 Order name: CBC with Diff [facility] 03/14 03:19 Order name: LFT's [facility] 03/14 03:19 Order name: Magnesium [facility] 03/14 03:19 Order name: NT PRO-BNP [facility] 03/14 03:19 Order name: PT-INR [facility] 03/14 03:12 Order name: Shoulder Left (2 View) XRAY rr5 03/14 03:12 Order name: Pelvis XRAY rr5 03/14 03:19 Order name: Troponin (emerg Dept Use Only) [facility] 03/14 03:19 Order name: XRAY Chest (1 view) [facility] 03/14 03:19 Order name: Hip Left 2 View XRAY [facility] 03/14 04:56 Order name: Urine Dipstick--Ancillary (enter results) tt3 03/14 05:54 Order name: SARS-COV-2 RT PCR EDMS 03/14 03:19 Order name: EKG; Complete Time: 03:20 [facility] 03/14 03:19 Order name: Cardiac monitoring; Complete Time: 03:39 [facility] 03/14 03:19 Order name: EKG - Nurse/Tech; Complete Time: 03:39 [facility] 03/14 03:19 Order name: IV Saline Lock; Complete Time: 03:39 [facility] 03/14 03:19 Order name: Labs collected and sent; Complete Time: 03:39 [facility] 03/14 03:19 Order name: O2 Per Protocol; Complete Time: 03:39 [facility] 03/14 03:19 Order name: O2 Sat Monitoring; Complete Time: 03:40 [facility] 03/14 03:19 Order name: Femur Left XRAY [facility] 03/14 03:19 Order name: Urine Dipstick-Ancillary (obtain specimen); Complete Time: 04:53 [facility] 03/14 03:19 Order name: CT Traumagram (Head C Spine CAP wo con) [facility] EC:46 Rate is 89 beats/min. Rhythm is regular. QRS [place] is Normal. PA interval is normal. QRS azeem interval is normal. QT interval is normal. No Q waves. T waves are Normal. No ST changes noted. Clinical impression: Atrial Fibrillation. Interpreted by me. Reviewed by me. Administered Medications: 03:30 Drug: NS 0.9% 1000 ml Route: IV; Rate: 125 ml/hr; Site: right forearm; rr5 06:46 Follow up: Response: No adverse reaction; IV Status: Infusion continued upon admission; rr5 IV Intake: 375ml 03:32 Drug: Zofran (Ondansetron) 4 mg Route: IVP; Site: right forearm; rr5 04:30 Follow up: Response: No adverse reaction rr5 03:34 Drug: morphine 2 mg {Note: rass 0.} Route: IVP; Site: left forearm; rr5 04:40 Follow up: Response: No adverse reaction; RASS: Alert and Calm (0) rr5 05:09 Drug: morphine 2 mg Route: IVP; Site: right antecubital; ea 06:46 Follow up: Response: No adverse reaction; RASS: Alert and Calm (0) rr5 Disposition: 03/14/20 06:40 Hospitalization ordered by Kerwin Marlow for Inpatient Admission. Preliminary diagnosis are Fall due to bumping against object, Pain in left leg - hematoma, intractable pain, non ambulatory, Contusion of other part of head - hematoma. - Bed requested for Telemetry/MedSurg (Inpatient). - Status is Inpatient Admission. ss - Condition is Stable. - Problem is new. - Symptoms have improved. Signatures: Dispatcher [employer] EDNY JimmieSarah mcmahan Bebe Downey, RN RN Brian Bella MD MD cha Smirch, Shelby, RN RN ss Gena Cedeño RN Brad Daley ea RN RN rr5 Corrections: (The following items were deleted from the chart) 04:35 04:21 CORONAVIRUS+ ordered. EDNY EDMS 08:26 06:40 Hospitalization Ordered by Kerwin Marlow MD for Inpatient Admission. Preliminary bd diagnosis is Fall due to bumping against object; Pain in left leg - hematoma, intractable pain, non ambulatory; Contusion of other part of head - hematoma. Bed requested for Telemetry/MedSurg (Inpatient). Status is Inpatient Admission. Condition is Stable. Problem is new. Symptoms have improved. azeem 16:39 08:26 03/14/2020 06:40 Hospitalization Ordered by Kerwin Marlow MD for Inpatient dw Admission. Preliminary diagnosis is Fall due to bumping against object; Pain in left leg - hematoma, intractable pain, non ambulatory; Contusion of other part of head - hematoma. Bed requested for [facility] ER HOLD. Status is Inpatient Admission. Condition is Stable. Problem is new. Symptoms have improved. bd 17:59 16:39 03/14/2020 06:40 Hospitalization Ordered by Kerwin Marlow MD for Inpatient ss Admission. Preliminary diagnosis is Fall due to bumping against object; Pain in left leg - hematoma, intractable pain, non ambulatory; Contusion of other part of head - hematoma. Bed requested for Telemetry/MedSurg (Inpatient). Status is Inpatient Admission. Condition is Stable. Problem is new. Symptoms have improved. dw
[2020-03-14] MEDS ORDERED: ACETAMINOPHEN 325 MG TABLET PO PRN (07:51)
--- NOTE | 2020-03-14 08:40 | RAD REPORT ---
EXAM DESCRIPTION: RAD - Femur Left - 03/14/2020 4:50 am CLINICAL HISTORY: PAIN COMPARISON: No comparisons FINDINGS: Left total hip arthroplasty is present. No hardware complication such as loosening or infe ction identified. No acute fracture seen.
--- NOTE | 2020-03-14 08:44 | RAD REPORT ---
EXAM DESCRIPTION: RAD - Chest Single View - 03/14/2020 4:49 am CLINICAL HISTORY: COUGH Chest pain. COMPARISON: Chest Single View dated 06/10/2019; Chest Single View dated 02/09/2019; Chest Pa And Lat (2 Views) dated 04/23/2018; Chest Single View dated 04/22/2018 FINDINGS: Portable technique limits examination quality. Mild interstitial pulmonary edema suspected. The heart is moderately enlarged. Sternotomy wires prese nt. IMPRESSION: Mild CHF versus volume overload.
--- NOTE | 2020-03-14 08:45 | RAD REPORT ---
EXAM DESCRIPTION: RAD - Shoulder Left 2 View - 03/14/2020 4:49 am CLINICAL HISTORY: PAIN COMPARISON: Shoulder Left 2 View dated 07/03/2017 FINDINGS: Mild AC joint and glenohumeral joint arthritic changes are present. The bones are diffusel y osteopenic. No acute fracture or dislocation seen.
[2020-03-14] MEDS: FAMOTIDINE 20 MG/2 ML VIAL IV SCH ×2 (09:00→21:14)
[2020-03-14] MEDS: NA CHLORIDE 0.9% 1,000 ML IV SCH ×2 (09:00→21:16)
[2020-03-14 10:47] VITALS: BMI 33.0
[2020-03-14] MEDS ORDERED: FAMOTIDINE 20 MG/2 ML VIAL IV ONE (11:09)
[2020-03-14] MEDS: MORPHINE 2 MG/ML SYR IV PRN ×2 (11:09→18:22)
[2020-03-14] MEDS ORDERED: PNEUMOCOCCAL VACCINE 0.5 ML IMVAC ONE (12:00)
--- NOTE | 2020-03-14 12:01 | RAD REPORT ---
EXAM DESCRIPTION: 1. CT of the head without contrast 2. CT of the cervical spine without contrast. 3. CT of the chest, abdomen, and pelvis without contrast. CLINICAL HISTORY: PAIN COMPARISON: 10/02/2018 TECHNIQUE: Axial CT of the head obtained from the skull apex to the skull base without contrast. Axi al CT images of the cervical spine obtained from the skull base through the thoracic inlet. Sagittal and coronal reformatted images available. CT of the chest, abdomen and pelvis performed without IV co ntrast. Suboptimal evaluation of the soft tissues, solid organs, and vasculature due to lack of IV co ntrast. FINDINGS: CT head: No acute intracranial hemorrhage identified. No mass, mass effect, shift of the midline, abnormal ext ra-axial fluid collection or CT evidence of acute ischemic change identified. Mild enlargement of ricardo tricular system and sulcal spaces compatible with cerebral atrophy. Scattered areas of hypodensity in the supratentorial white matter are nonspecific and may represent sequela of chronic small vessel is chemic change. Right MCA distribution encephalomalacia compatible with remote infarction. Mild mucosal thickening of the paranasal sinuses. Mastoid air cells are well aerated. No skull fractu re identified. Visualized orbits and globes are unremarkable. Cervical CT: Alignment of the cervical spine is maintained without evidence of subluxation. The atlantoaxial, at lantodental, and occipitoatlantal intervals are preserved. No fracture identified. Vertebral body h eight preserved. Prevertebral soft tissues are unremarkable. Mild to moderate multilevel loss of intervertebral disc height with endplate spondylosis, facet arthr opathy, and uncovertebral spurring. Mild multilevel osseous neural foraminal narrowing. Visualized skull base is intact. No fracture of the visualized facial bones. Mucosal thickening of the paranasal sinuses. Mastoid air cells are well aerated. No cervical lymphadenopathy. Carotid artery atherosclerosis. FINDINGS: Chest: Thyroid: No abnormalities of the visualized thyroid. Great Vessels: Great vessels have normal anatomic configuration. Thoracic Aorta: Atherosclerotic calcification thoracic aorta. Pulmonary arteries: Mild enlargement of the main pulmonary artery could be seen with pulmonary arteri al hypertension. Heart: Coronary artery atherosclerosis. Cardiomegaly. No significant pericardial effusion. Prior medi an sternotomy. Lymph Nodes: No enlarged mediastinal lymph nodes identified. Esophagus: No abnormalities of the esophagus identified Other: No additional findings. Lungs: Respiratory motion artifact. Dependent atelectasis. No confluent airspace consolidation. Pleura: No pleural effusion or pneumothorax. Trachea/Airways: No abnormalities of the visualized trachea or airways. Abdomen: Liver: The liver has normal size and density. Gallbladder: No calcified gallstones. Spleen, Pancreas, and Adrenal Glands: The spleen and adrenal glands are unremarkable. Stable exophy tic structure arising from the tail of the pancreas measuring 2.0 cm likely representing a cyst. Kidneys: No hydronephrosis or obstructing ureteral calculus. Vasculature: Aortoiliac atherosclerosis. IVC is unremarkable. Stomach: The stomach and duodenum have normal course. Other: No free intraperitoneal air. No free fluid or lymphadenopathy. Tiny fat-containing umbilic al hernia. Pelvis: Bladder: Urinary bladder is unremarkable. Bowel: No dilated loops of large or small bowel. Scattered diverticula of the colon. Appendix: Not identified. Pelvis: Enlarged prostate. Small bilateral fat-containing inguinal hernias, left greater than right. Bones: Degenerative endplate spondylosis and facet arthropathy. Multilevel degenerative disc height n arrowing. Osteophytic change of the right hip. Left total hip arthroplasty. Healing nondisplaced frac tures of the lateral left eighth, ninth, and 10th ribs. IMPRESSION: 1. No acute intracranial abnormality. 2. No acute fracture or subluxation of the cervical spine. 3. Age-indeterminate healing nondisplaced fractures of the lateral left eighth through 10th ribs. 4. Coronary artery atherosclerosis. Cardiomegaly. 5. Enlarged prostate. 6. Diverticulosis without evidence of acute diverticulitis. This exam was performed according to our departmental dose-optimization program, which includes autom ated exposure control, adjustment of the mA and/or kV according to patient size and/or use of iterati ve reconstruction technique. Electronically signed by: Hector Mcleod 03/14/2020 4:42 AM [employer]ODUCTION COOK Due to temporary technical issues with the PACS/Fluency reporting system, reports are being signed by the in house radiologist without review as a courtesy to ensure prompt reporting. The interpreting r adiologist is fully responsible for the content of the report.
--- NOTE | 2020-03-14 12:02 | RAD REPORT ---
EXAM DESCRIPTION: Pelvis CLINICAL HISTORY: PAIN COMPARISON: 03/14/2020 FINDINGS: Single view of the pelvis. Partial visualization of left total hip arthroplasty. Right hip arthritis. No acute fracture. Degenerative change of the spine. IMPRESSION: 1. No acute fracture. Left total hip arthroplasty. Electronically signed by: Hector Mcleod 03/14/2020 5:03 AM AIRLINE DISPATCHER Due to temporary technical issues with the PACS/Fluency reporting system, reports are being signed by the in house radiologist without review as a courtesy to ensure prompt reporting. The interpreting r adiologist is fully responsible for the content of the report.
--- NOTE | 2020-03-14 12:16 | EKG ---
Test Date: 2020-03-14 Test Time: 03:27:31 House Calls Nurse: ABHIJEET MEASUREMENT RESULTS: Intervals: Rate: 89 IN: QRSD: 94 QT: 408 QTc: 496 [place]: P: IN: QRS: 39 T: 24 INTERPRETIVE STATEMENTS: Atrial fibrillation with premature ventricular or aberrantly conducted complexes Nonspecific ST and T wave abnormality, probably digitalis effect Prolonged QT Abnormal ECG Compared to ECG 06/10/2019 09:06:42 Ventricular premature complex(es) now present Prolonged QT interval now present ST (T wave) deviation still present Electronically Signed On 03-14-20 12:15:10 DISPERSION MIXER by Young Mcdonald
--- NOTE | 2020-03-14 12:18 | RAD REPORT ---
EXAM DESCRIPTION: Hip Left 2 View CLINICAL HISTORY: PAIN COMPARISON: 03/14/2020 FINDINGS: 2 views of the left hip. Left total hip arthroplasty. No hardware abnormality. No acute fr acture. Osteopenia. IMPRESSION: 1. Left hip arthroplasty. No acute fracture. Electronically signed by: Hector Mcleod 03/14/2020 5:04 AM [employer] SUPERVISOR Due to temporary technical issues with the PACS/Fluency reporting system, reports are being signed by the in house radiologist without review as a courtesy to ensure prompt reporting. The interpreting r adiologist is fully responsible for the content of the report.
[2020-03-14] MEDS ORDERED: DOCUSATE NA/SENNA CONC 1 TAB PO PRN (14:44)
[2020-03-14] MEDS ORDERED: ONDANSETRON 4 MG (ODT) TAB PO PRN (14:44)
[2020-03-14] MEDS ORDERED: TETRAHYDROZOLINE HCL OPTH PRN (14:44)
[2020-03-14] MEDS: APIXABAN 5 MG TABLET PO SCH (18:22)
[2020-03-14] MEDS: GABAPENTIN 300 MG CAP PO SCH (18:22)
[2020-03-14] MEDS ORDERED: HOME MED 1 EA UNK (Simvastatin [Simvastatin] 10 MG Tablet) PO SCH (21:00)
--- NOTE | 2020-03-14 21:04 | HP ---
Date of Admission: 03/14/2020 Entrance Complaint: Fall with multiple painful areas. History Of Present Illness: The patient states he remembers urinating, he sat down at the table, and then went to get up and next thing he knew he had fallen. He said this had happened in the past as well; however, at this time he said that the pain became increasingly more discomfort especially in t he left hip area, although he complained of areas of discomfort in the neck, head, and lower legs as well. The patient was obviously incapable of taking care of his situation, although he has been doin g his own physical therapy at home. It was felt after extensive radiological testing that he would n ot be a candidate for hospitalization and then the rehab floor. When seen, his mental status was sta ble. Past History: Atrial fib, CVA, mitral valve repair, hip surgery. The patient states he is not smoki ng and occasionally has alcohol. Family History: Noncontributory. Social History: As above. Physical Examination: General: The patient is an uncomfortable elderly male with stable vital signs. Responsive to questi oning, complaining of discomfort but not severe pain, specifically when he localizes in the left uppe r thigh. Head and Neck: Normocephalic. Abrasion and contusion of the left parietal and supraorbital and infr aorbital area. ENT: Negative. Chest: Clear to P and A. Cardiovascular: PMI in midclavicular line. Heart: Sounds normal. Peripheral pulses are present and equal bilaterally. Abdomen: No organomegaly. Bowel sounds present. Extremities: Good motion in all direction of the lower legs with discomfort in the left hip and late ral aspect of the left upper thigh and quadriceps area. No tenderness in the calf areas on either si de. Laboratory Data: Echo, deferred. Impression: Multiple contusions to leg, face, scalp; atrial fibrillation, controlled; by history cer ebrovascular accident, some residual defects on the left. Plan: The patient will be admitted for pain control, physical therapy with a plan of admitting him t o rehab. We will also consult the orthopedic surgeon who did his hip surgery. HR/MODL Voice ID: [id number]
--- NOTE | 2020-03-14 21:09 | HP ---
Date of Admission: 03/14/2020 Subjective: The patient states he feels somewhat better late this afternoon when seen. Still had mo st marked tenderness in the left quadriceps area with a possible hematoma formation. Passive motion was good. He was seen by Physical Therapy who refrained from doing any weightbearing till the radiol ogical reports were completed. When they were, they revealed multiple areas of arthritis but no acut e trauma. As mentioned above, we will obtain Orthopedic consultation and hopefully get him transferre d to rehab in the next day or so. HR/MODL Voice ID: [id number]
[2020-03-14] MEDS: ATORVASTATIN 10 MG TAB PO SCH (21:13)
[2020-03-14] MEDS: TAMSULOSIN 0.4 MG SR CAP PO SCH (21:13)
[2020-03-14] MEDS: MAGNESIUM OXIDE 400 MG TAB PO SCH (21:14)
[2020-03-15] MEDS: GABAPENTIN 300 MG CAP PO SCH ×3 (00:31→16:27)
[2020-03-15] MEDS: MORPHINE 2 MG/ML SYR IV PRN ×2 (02:21→16:27)
[2020-03-15] MEDS: NA CHLORIDE 0.9% 1,000 ML IV SCH (03:51)
[2020-03-15 04:58] LABS: Absolute Lymphocytes (CBC) 1.4 K/uL (0.7-4.9); Basophils % 0.5 % (0-1.3); Hematocrit 33.3 % (39.6-49.0); Lymphocytes % 19.9 % (15.3-44.8); MPV 8.9 fL (7.6-11.3)
[2020-03-15 05:17] LABS: BUN Blood Urea Nitrogen 16 mg/dL (7-18); Bicarbonate 30 mmol/L (21-32); Glucose Level 104 mg/dL (74-106); Potassium 4.1 mmol/L (3.5-5.1); Sodium Level 142 mmol/L (136-145)
[2020-03-15] MEDS: MAGNESIUM OXIDE 400 MG TAB PO SCH ×2 (09:00→20:19)
[2020-03-15] MEDS ORDERED: HOME MED 1 EA UNK (Olmesartan Medoxomil [Olmesartan Medoxomil] 20 MG Tablet) PO SCH (09:00)
[2020-03-15] MEDS ORDERED: APIXABAN 5 MG TABLET PO SCH (09:00)
[2020-03-15] MEDS: FAMOTIDINE 20 MG/2 ML VIAL IV SCH ×2 (09:33→20:19)
[2020-03-15] MEDS: VALSARTAN 40 MG TAB PO SCH (09:34)
[2020-03-15] MEDS: FUROSEMIDE 20 MG TABLET PO SCH (09:35)
[2020-03-15] MEDS: METFORMIN HCL 500 MG TAB PO SCH (09:35)
[2020-03-15] MEDS: METOPROLOL XL 50 MG TAB PO SCH (09:35)
[2020-03-15] MEDS: APIXABAN 5 MG TABLET PO SCH ×2 (09:35→20:18)
[2020-03-15] MEDS: CITALOPRAM 10 MG TABLET PO SCH (09:35)
--- NOTE | 2020-03-15 12:49 | PN ---
Date of Progress Note: 03/15/2020 The patient states today, he is still quite uncomfortable in the left upper leg and hip area. No fur ther attempts had been made at weightbearing as we are waiting Orthopedic consultation. The patient' s intake has been good. Output has been excellent. We will convert to a saline lock. Discussion wa s held with the patient in regard to disposition between the rehab, SNF and home. Feels he could not handle at the present time at home, which makes sense as he has difficulty now with weightbearing co mpounded by his recent fall and his post CVA status. Awaiting the soft tissue evaluation by orthoped ic surgeon and we are trying for a rehab placement. The patient is not as tender on the upper portio n of his leg and the swelling which was slightly noticeable yesterday in the upper thigh is not prese nt today. HR/MODL Voice ID: [id number] Report ID: [id number]
--- NOTE | 2020-03-15 13:01 | CON ---
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 He did have some continued symptoms, but otherwise was doing fairly well. He is able to ambulate with an assistive device, however, not great distances. He has preexisting conditions delineated in this chart. He essentially does not have much use of his left upper extremity. He also has rib fractures, possibly from a previous fall which could be limit ing his ability to ambulate. He unfortunately fell on Thursday and did fairly well after he fell, bu t the next day had a significant amount of pain related to his left lower extremity, specifically reg ion of his buttocks as well as the lateral hip. Also was complaining of pain in the shoulder. 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 Also x-rays and CT scan perf ormed, which does go down to the hip which may reveal some soft tissue injury, but no bony injury or problems with the bipolar hemiarthroplasty. Physical Examination: His left upper extremity does have a degree of spasticity. This is really not unusual for him. With regard to ambulation, he does have quite a bit of pain related to his left lower extremity, specific ally posterior aspect and lateral aspect of his hip and thigh. Gentle movement and manipulation of t he hip does not cause pain. Radiographic Studies: Review of x-rays does not demonstrate any fractures, dislocations related to t he hip or shoulder. Assessment: Patient who was quite affected by previous cerebrovascular accident as well as a previou s hip fracture, now with rib fractures and significant contusion related to his left hip and thigh. It is very difficult for him to ambulate because of pain and other difficulties. The question is whe ther or not he can bear weight on his hip and I think that he can. Unfortunately, this could be limi blanco by his underlying pre-fall conditions as well as the significant amount of pain from the from the fall. Plan: At this time, I spoke with his primary care physician who feels that returning home does raise some significant questions regarding his ability to care for himself. The thought is that perhaps i f he could go to rehab to work diligently, he would be able to maintain his pre-fall status, however, if he is unable to do this, he may develop deconditioning making his overall prognosis worse. I def initely agree with this and I think that Physical Therapy should work with weight weightbearing as he can tolerate with rehabilitation to attempt to get him back to his pre-fall status being a buitrago deci rhoda. /MODL Voice ID: [id number] Report ID: [id number]
[2020-03-15] MEDS: TAMSULOSIN 0.4 MG SR CAP PO SCH (20:18)
[2020-03-15] MEDS: ATORVASTATIN 10 MG TAB PO SCH (20:18)
[2020-03-16] MEDS: GABAPENTIN 300 MG CAP PO SCH ×3 (01:50→17:47)
[2020-03-16] MEDS: MORPHINE 2 MG/ML SYR IV PRN (01:50)
[2020-03-16] MEDS: CITALOPRAM 10 MG TABLET PO SCH (08:52)
[2020-03-16] MEDS: METOPROLOL XL 50 MG TAB PO SCH (08:52)
[2020-03-16] MEDS: FUROSEMIDE 20 MG TABLET PO SCH (08:52)
[2020-03-16] MEDS: METFORMIN HCL 500 MG TAB PO SCH (08:53)
[2020-03-16] MEDS: VALSARTAN 40 MG TAB PO SCH (08:53)
[2020-03-16] MEDS: MAGNESIUM OXIDE 400 MG TAB PO SCH ×2 (08:53→21:19)
[2020-03-16] MEDS: APIXABAN 5 MG TABLET PO SCH ×2 (08:53→21:19)
[2020-03-16] MEDS: FAMOTIDINE 20 MG/2 ML VIAL IV SCH (08:54)
--- NOTE | 2020-03-16 16:07 | P.PN ---
Subjective Date of Service: 03/16/20 Primary Care Provider: Dr. Marlow(Covering for him) Subjective: Other (Overall stable. No complaints noted) Physical Examination - Vital Signs Temperature: 97.4 F Blood Pressure: 149/77 Pulse: 74 Respirations: 18 Pulse Ox (%): 99 Assessment & Plan Discharge Plan: Other (Inpatient rehab) Plan to discharge in: 72 Hours Physician Review Additional Text: Physical exam: Patient alert, cooperative without distress. Heart: Atrial fibrillation rate controlled Lungs: Clear Abdomen: Nontender nondistended Extremities: Residual weakness to the LUE. Patient lying in bed. 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 Spoke with PCP yesterday. Patient seen by orthopedics. Still unsafe to be discharged home due to increase risk for fall. Orthopedics recommends inpatient rehab. Awaiting approval for inpatient rehab. Hopefully this will happen in the next 24-72 hr. If unsuccessful patient desires to go to a skilled facility to continue therapy. Will discuss with family as well. Encourage incentive spirometer. Continue to reassess. Atrial fibrillation on chronic anti coagulation therapy: Continue medications History of CVA with residual left upper extremity weakness: Continue current management and treatment plan Diabetes mellitus type 2: Continue medication. Accu-Cheks in place. Hypertension: Continue medication BPH: Continue medication Depression: Continue medication Hyperlipidemia: Continue medication Time Spent Managing Pts Care (In Minutes): 55
[2020-03-16] MEDS: TRAMADOL HCL 50 MG TAB PO PRN (19:53)
[2020-03-16] MEDS: TAMSULOSIN 0.4 MG SR CAP PO SCH (21:19)
[2020-03-16] MEDS: ATORVASTATIN 10 MG TAB PO SCH (21:19)
[2020-03-17] MEDS: GABAPENTIN 300 MG CAP PO SCH ×3 (01:27→16:00)
[2020-03-17] MEDS: MORPHINE 2 MG/ML SYR IV PRN ×2 (08:21→12:46)
[2020-03-17] MEDS: FUROSEMIDE 20 MG TABLET PO SCH (08:25)
[2020-03-17] MEDS: VALSARTAN 40 MG TAB PO SCH (08:26)
[2020-03-17] MEDS: METFORMIN HCL 500 MG TAB PO SCH (08:26)
[2020-03-17] MEDS: CITALOPRAM 10 MG TABLET PO SCH (08:26)
[2020-03-17] MEDS: APIXABAN 5 MG TABLET PO SCH ×2 (08:26→19:50)
[2020-03-17] MEDS: METOPROLOL XL 50 MG TAB PO SCH (08:26)
[2020-03-17] MEDS: MAGNESIUM OXIDE 400 MG TAB PO SCH ×2 (08:27→19:51)
[2020-03-17] MEDS: HYDROCODONE/APAP 7.5/325 MG TAB PO PRN ×2 (09:25→15:07)
[2020-03-17] MEDS: ONDANSETRON 4 MG/2 ML VIAL IV PRN ×2 (09:30→15:14)
[2020-03-17] MEDS: TRAMADOL HCL 50 MG TAB PO PRN ×2 (11:32→19:50)
[2020-03-17] MEDS ORDERED: METOPROLOL TARTRATE 5 MG/5 ML INJ IV STA ×2 (14:43→16:33)
--- NOTE | 2020-03-17 14:47 | P.PN ---
Subjective Date of Service: 03/17/20 Primary Care Provider: Dr. Marlow(Covering for him) Subjective: Other (Patient doing well this morning. Mild pain and muscle spasm to the leg. This afternoon heart rate in the 120s to 140s. Patient with history of AFib. Now AFib with RVR.) Physical Examination - Vital Signs Temperature: 97 F Blood Pressure: 123/73 Pulse: 68 Respirations: 18 Pulse Ox (%): 96 Assessment & Plan Discharge Plan: Other (Inpatient rehab) Plan to discharge in: Greater than 2 days Physician Review Additional Text: Physical exam: Patient alert, cooperative without distress. Heart: Patient was in atrial fibrillation with rate controlled. Had AFib with RVR with rate around 120-140 this afternoon. Lungs: Clear Abdomen: Nontender nondistended Extremities: Residual weakness to the LUE. Patient lying in bed. Minimal pain to the left hip. 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 Continue with medication for pain. Options provided. Awaiting approval for inpatient rehab. Hopefully this will happen in the next 24-72 hr. If unsuccessful patient desires to go to a skilled facility to continue therapy. I was not able to reach family yesterday. Will reach out to family today. Encourage to ask nurse for pain medication if needed. Encourage incentive spirometer. Continue to reassess. Continue to monitor and assess pre Atrial fibrillation on chronic anti coagulation therapy now with RVR: Patient was stable this morning. This after in patient with RVR with rate around 120- 140. Will give metoprolol 5 mg IV now all. Will increase oral metoprolol for better rate control. Will discuss with cardiology. Patient on Eliquis. Continue to monitor closely. History of CVA with residual left upper extremity weakness: Continue current management and treatment plan Diabetes mellitus type 2: Continue medication. Accu-Cheks in place. Hypertension: Continue medication BPH: Continue medication Depression: Continue medication Hyperlipidemia: Continue medication Time Spent Managing Pts Care (In Minutes): 55
[2020-03-17] MEDS: TAMSULOSIN 0.4 MG SR CAP PO SCH (19:50)
[2020-03-17] MEDS: ATORVASTATIN 10 MG TAB PO SCH (19:51)
[2020-03-17] MEDS ORDERED: METOPROLOL XL 50 MG TAB PO SCH (21:00)
[2020-03-18] MEDS: HYDROCODONE/APAP 7.5/325 MG TAB PO PRN ×2 (00:26→20:12)
[2020-03-18] MEDS: GABAPENTIN 300 MG CAP PO SCH ×3 (00:27→17:47)
[2020-03-18] MEDS ORDERED: NA CHLORIDE 0.9% 500 ML IV ONE ×2 (04:36→06:38)
[2020-03-18] MEDS ORDERED: NA CHLORIDE 0.9% 500 ML ONE ×2 (04:48→06:54)
[2020-03-18] MEDS ORDERED: NA CHLORIDE 0.9% 250 ML IV ONE ×4 (05:19→12:33)
[2020-03-18] MEDS ORDERED: METOPROLOL XL 50 MG TAB PO SCH (05:53)
[2020-03-18] MEDS ORDERED: NA CHLORIDE 0.9% 250 ML IV PRN (07:36)
[2020-03-18] MEDS: METFORMIN HCL 500 MG TAB PO SCH (08:31)
[2020-03-18] MEDS: CITALOPRAM 10 MG TABLET PO SCH (08:31)
[2020-03-18] MEDS: APIXABAN 5 MG TABLET PO SCH ×2 (08:32→20:13)
[2020-03-18] MEDS: MAGNESIUM OXIDE 400 MG TAB PO SCH ×2 (08:32→20:16)
[2020-03-18] MEDS: FUROSEMIDE 20 MG TABLET PO SCH (08:32)
--- NOTE | 2020-03-18 10:22 | P.PN ---
Subjective Date of Service: 03/18/20 Primary Care Provider: Dr. Marlow(Covering for him) Subjective: Other (Patient had episode of AFib with RVR yesterday. Patient required 2 doses of IV metoprolol. His metoprolol was increased to help with rate control. This morning blood pressure was low around 75 systolic. Patient give a multiple fluid boluses. Patient improved with blood pressure around 95 sys.) Physical Examination - Vital Signs Temperature: 98.3 F Blood Pressure: 93/52 Pulse: 73 Respirations: 18 Pulse Ox (%): 94 Assessment & Plan Discharge Plan: Other (Inpatient rehab) Plan to discharge in: 48 Hours Physician Review Additional Text: Initial Chief complaint: Patient presented after a fall now with rib fractures, contusion to the left hip without fracture Physical exam: Patient alert, cooperative without distress. Heart: Patient was in atrial fibrillation with rate controlled. Blood pressure improved to 95 systolic. Lungs: Clear Abdomen: Nontender nondistended Extremities: Residual weakness to the LUE. Patient lying in bed. Minimal pain to the left hip. Swelling to the left hip or contusion is noted. No significant change in swelling. No erythema. Patient has good strength to the lower extremities. 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 Patient received IV metoprolol x2. Patient's oral medication of metoprolol had been increased last night for better rate control. This a.m. blood pressure was around 75 systolic. Patient was alert but felt fatigued. IV fluid bolus given. Total of 1.5 L given. Blood pressure now on 95 systolic. Patient alert, cooperative. No significant distress noted. Lungs clear. Will hold blood pressure medications at this time. Will change metoprolol from 50 mg twice daily to 25 mg 1 pill twice daily. Will discontinue Arb inhibitor-Olmesartan. Hold physical therapy today due to low blood pressure. Anticipate improvement throughout the day. Will recheck blood pressures later. Currently awaiting approval for inpatient rehab. Anticipate approval tomorrow. If no approval patient desires to go to a skilled facility. Plan of care addressed with patient. Patient understands current plan. Will also reach out to family who I have not been able to reach. Patient gave me number to his son. Encourage incentive spirometer. I am covering for PCP-Dr. Marlow who will return on Thursday. I will turn the service over to the hospitalist team tomorrow. I will go plan of care with him. Episode of hypotension likely related to medication with history of hypertension: As mentioned above patient given total of 1.5 L. Blood pressure improved. Systolic around 95. Heart rate stable with atrial fibrillation. Will discontinue Arb inhibitor-Olmesartan. Will change metoprolol to 25 mg 1 pill twice daily. Parameters in place to hold medication if blood pressure systolic less than 110. Continue to monitor and adjust.. Atrial fibrillation on chronic anti coagulation therapy now with RVR: As above. Metoprolol adjusted with parameters in place. Continue Eliquis. History of CVA with residual left upper extremity weakness: Continue current management and treatment plan Diabetes mellitus type 2: Continue medication. Accu-Cheks in place. BPH: Continue medication Depression: Continue medication Hyperlipidemia: Continue medication Time Spent Managing Pts Care (In Minutes): 55
[2020-03-18] MEDS: TRAMADOL HCL 50 MG TAB PO PRN ×2 (10:23→17:48)
[2020-03-18] MEDS: TAMSULOSIN 0.4 MG SR CAP PO SCH (20:13)
[2020-03-18] MEDS: ATORVASTATIN 10 MG TAB PO SCH (20:13)
[2020-03-18] MEDS: METOPROLOL XL 50 MG TAB PO SCH (20:19)
[2020-03-19] MEDS: GABAPENTIN 300 MG CAP PO SCH ×3 (01:54→16:37)
[2020-03-19 04:34] LABS: Absolute Lymphocytes (CBC) 1.7 K/uL (0.7-4.9); Basophils % 0.4 % (0-1.3); Hematocrit 28.6 % (39.6-49.0); Lymphocytes % 23.4 % (15.3-44.8); MPV 8.7 fL (7.6-11.3)
[2020-03-19 04:46] LABS: BUN Blood Urea Nitrogen 26 mg/dL (7-18); Bicarbonate 32 mmol/L (21-32); Glucose Level 106 mg/dL (74-106); Magnesium 2.2 mg/dL (1.8-2.4); Potassium 4.1 mmol/L (3.5-5.1); Sodium Level 139 mmol/L (136-145)
[2020-03-19] MEDS: MAGNESIUM OXIDE 400 MG TAB PO SCH ×2 (09:00→20:57)
[2020-03-19] MEDS: METFORMIN HCL 500 MG TAB PO SCH (10:02)
[2020-03-19] MEDS: METOPROLOL XL 50 MG TAB PO SCH ×2 (10:02→20:57)
[2020-03-19] MEDS: CITALOPRAM 10 MG TABLET PO SCH (10:11)
[2020-03-19] MEDS: APIXABAN 5 MG TABLET PO SCH ×2 (10:11→20:58)
[2020-03-19] MEDS: FUROSEMIDE 20 MG TABLET PO SCH (10:12)
[2020-03-19] MEDS: HYDROCODONE/APAP 7.5/325 MG TAB PO PRN ×2 (15:59→22:18)
[2020-03-19] MEDS: TAMSULOSIN 0.4 MG SR CAP PO SCH (20:57)
[2020-03-19] MEDS: ATORVASTATIN 10 MG TAB PO SCH (20:58)
[2020-03-20] MEDS: GABAPENTIN 300 MG CAP PO SCH ×3 (02:00→16:24)
[2020-03-20 06:17] LABS: Absolute Lymphocytes (CBC) 1.7 K/uL (0.7-4.9); Basophils % 0.6 % (0-1.3); Hematocrit 29.1 % (39.6-49.0); Lymphocytes % 24.9 % (15.3-44.8); MPV 8.3 fL (7.6-11.3); RBC Red Blood Cell Count 3.12 M/uL (4.33-5.43)
[2020-03-20 06:35] LABS: BUN Blood Urea Nitrogen 18 mg/dL (7-18); Bicarbonate 30 mmol/L (21-32); Glucose Level 95 mg/dL (74-106); Magnesium 2.1 mg/dL (1.8-2.4); Potassium 3.9 mmol/L (3.5-5.1); Sodium Level 139 mmol/L (136-145)
[2020-03-20] MEDS: MAGNESIUM OXIDE 400 MG TAB PO SCH ×2 (09:00→20:45)
[2020-03-20] MEDS: METFORMIN HCL 500 MG TAB PO SCH (09:07)
[2020-03-20] MEDS: METOPROLOL XL 50 MG TAB PO SCH ×2 (09:07→20:48)
[2020-03-20] MEDS: CITALOPRAM 10 MG TABLET PO SCH (09:07)
[2020-03-20] MEDS: APIXABAN 5 MG TABLET PO SCH (09:07)
[2020-03-20] MEDS: FUROSEMIDE 20 MG TABLET PO SCH (09:08)
[2020-03-20] MEDS: HYDROCODONE/APAP 7.5/325 MG TAB PO PRN ×3 (09:09→22:34)
--- NOTE | 2020-03-20 17:06 | P.PN ---
Subjective Date of Service: 03/19/20 Subjective: No new changes, No C/O voiced, Improving Patient went into atrial fibrillation with rapid ventricular response last night. Rate is stabilize. Still having some pain in the left leg on ambulation. Has not walked with physical therapy but hopefully we can get him up out of bed today. Review of Systems 10-point ROS is otherwise unremarkable Physical Examination - Vital Signs Temperature: 97.7 F Blood Pressure: 106/58 Pulse: 90 Respirations: 18 Pulse Ox (%): 95 - Physical Exam General: Alert, In no apparent distress, Oriented x3 HEENT: Atraumatic, PERRLA, EOMI Neck: Supple, JVD not distended Respiratory: Clear to auscultation bilaterally, Normal air movement Cardiovascular: Irregular heart rate/rhythm Gastrointestinal: Normal bowel sounds, No tenderness Musculoskeletal: Tenderness (Left hip) Neurological: Normal speech, Normal tone, Normal affect Lymphatics: No axilla or inguinal lymphadenopathy - Studies Medications List Reviewed: Yes Assessment & Plan - Problems (Diagnosis) (1) Hip hematoma, left Current Visit: Yes Status: Acute (2) History of stroke Current Visit: Yes Status: Acute (3) Atrial fibrillation, chronic Current Visit: No Status: Chronic - Plan Plan: 1. Pain control 2. Medication for rate control 3. Hold off anti coagulation because of fall 4. Physical therapy evaluation 5. Rehab evaluation 6. GI and DVT prophylaxis Discharge Plan: Home Plan to discharge in: Greater than 2 days - Advance Directives Does patient have a Living Will: No Does patient have a Durable POA for Healthcare: Yes - Code Status/Comfort Care Code Status Assessed: Yes Code Status: Full Code Critical Care: No Time Spent Managing PTS Care (In Minutes): 35
--- NOTE | 2020-03-20 18:45 | EKG ---
Test Date: 2020-03-17 Test Time: 14:28:50 [place]: TAHIRA MEASUREMENT RESULTS: Intervals: Rate: 130 [place]: QRSD: 78 QT: 284 QTc: 417 [place]: P: [place]: QRS: 52 T: -15 INTERPRETIVE STATEMENTS: Atrial fibrillation with rapid ventricular response with premature ventricular or aberrantly conducted complexes Nonspecific ST and T wave abnormality, probably digitalis effect Abnormal ECG Compared to ECG 03/14/2020 03:27:31 Prolonged QT interval no longer present ST (T wave) deviation still present Electronically Signed On 03-20-20 18:40:39 VOCAL ARTIST by Young Mcdonald
[2020-03-20] MEDS: TAMSULOSIN 0.4 MG SR CAP PO SCH (20:45)
[2020-03-20] MEDS: ATORVASTATIN 10 MG TAB PO SCH (20:45)
[2020-03-21] MEDS: GABAPENTIN 300 MG CAP PO SCH ×3 (01:08→17:45)
[2020-03-21] MEDS: CITALOPRAM 10 MG TABLET PO SCH (09:32)
[2020-03-21] MEDS: METOPROLOL XL 50 MG TAB PO SCH ×2 (09:32→21:24)
[2020-03-21] MEDS: MAGNESIUM OXIDE 400 MG TAB PO SCH ×2 (09:33→21:00)
[2020-03-21] MEDS: METFORMIN HCL 500 MG TAB PO SCH (09:33)
[2020-03-21] MEDS: FUROSEMIDE 20 MG TABLET PO SCH (09:33)
[2020-03-21] MEDS: HYDROCODONE/APAP 7.5/325 MG TAB PO PRN ×2 (09:37→17:45)
--- NOTE | 2020-03-21 14:30 | PN ---
Date of Progress Note: 03/21/2020 The patient's symptoms are isolated to the anterolateral portion of the left thigh with some radiatio n superiorly into the buttock. However, he states he cannot bear weight and this was confirmed by Phy sical Therapy. He does have motion of the knee, ankle and foot, however, he can only flex the knees so much at the point of tenderness on the anterolateral portion of the thigh suggesting either an occ ult fracture and/or a deep muscle bruise hematoma and/or tear. We will obtain MRI to ascertain facto r here. Otherwise, he seems to be functioning okay. He is orientated. His I and O are adequate. Adriana andre seems stable as far as his AFib is concerned. The other issue is COVID as he received the initial vaccine over 3 weeks ago in [place]. I will discuss this further with Infectious Disease here. We c ontinue with therapy and apparently we are also awaiting insurance clearance for rehab. HR/MODL Voice ID: [id number] Report ID: [id number]
[2020-03-21] MEDS: APIXABAN 5 MG TABLET PO SCH (21:25)
[2020-03-21] MEDS: TAMSULOSIN 0.4 MG SR CAP PO SCH (21:25)
[2020-03-21] MEDS: ATORVASTATIN 10 MG TAB PO SCH (21:25)
[2020-03-22] MEDS: HYDROCODONE/APAP 7.5/325 MG TAB PO PRN ×3 (00:15→22:21)
[2020-03-22] MEDS: GABAPENTIN 300 MG CAP PO SCH ×3 (00:15→17:18)
[2020-03-22] MEDS: FUROSEMIDE 20 MG TABLET PO SCH (09:00)
[2020-03-22] MEDS: MAGNESIUM OXIDE 400 MG TAB PO SCH ×2 (09:00→20:42)
[2020-03-22] MEDS: METFORMIN HCL 500 MG TAB PO SCH (09:37)
[2020-03-22] MEDS: CITALOPRAM 10 MG TABLET PO SCH (09:37)
[2020-03-22] MEDS: METOPROLOL XL 50 MG TAB PO SCH ×2 (09:38→20:42)
[2020-03-22] MEDS: APIXABAN 5 MG TABLET PO SCH ×2 (09:39→20:42)
--- NOTE | 2020-03-22 12:30 | RAD REPORT ---
EXAM DESCRIPTION: MRI - Hip Left Wo Cont - 03/22/2020 11:55 am CLINICAL HISTORY: poss occult fracture with hematoma Fall, left-sided pain COMPARISON: Hip Left 2 View dated 03/14/2020 FINDINGS: There is moderate blooming artifact present from left hip arthroplasty hardware. There is no fracture seen in the included visualized aspects of the pelvis. Mild edema is seen in the medial left hip musculature. Mixed intensity collection in the lateral soft tissues of the upper thigh measuring 5.8 x 4.1 cm noted, likely intramuscular hematoma. IMPRESSION: Limited study due to blooming artifact without evidence of fracture.Moderate intramuscul ar hematoma seen along the left thigh soft tissues.
[2020-03-22] MEDS: MORPHINE 2 MG/ML SYR IV PRN (13:40)
--- NOTE | 2020-03-22 14:01 | PN ---
Date of Progress Note: 03/22/2020 The patient continues to have problems with left upper leg as far as weightbearing. Motion may be sl ightly improved. Still has tenderness and obvious mass on the anterolateral aspect. This was confir med with an MRI. No occult fracture was noted, however, rather large intramuscular hematoma causing his problems obviously. 5.8 x 4.1 cm was noted. A peer to peer will be held with the insurance [employer] this afternoon. His H and H seem stable. He was placed back on the [facility] and feels to be an ex cellent candidate for rehab. HR/MODL Voice ID: [id number] Report ID: [id number]
[2020-03-22] MEDS: TAMSULOSIN 0.4 MG SR CAP PO SCH (20:42)
[2020-03-22] MEDS: ATORVASTATIN 10 MG TAB PO SCH (20:42)
[2020-03-23] MEDS: GABAPENTIN 300 MG CAP PO SCH ×3 (00:19→16:37)
[2020-03-23] MEDS: MAGNESIUM OXIDE 400 MG TAB PO SCH (09:00)
[2020-03-23] MEDS: FUROSEMIDE 20 MG TABLET PO SCH (09:17)
[2020-03-23] MEDS: APIXABAN 5 MG TABLET PO SCH (09:18)
[2020-03-23] MEDS: CITALOPRAM 10 MG TABLET PO SCH (09:19)
[2020-03-23] MEDS: METFORMIN HCL 500 MG TAB PO SCH (09:19)
[2020-03-23] MEDS: METOPROLOL XL 50 MG TAB PO SCH (09:20)
[2020-03-23 09:33] VITALS: O2SAT 92
[2020-03-23] MEDS: HYDROCODONE/APAP 7.5/325 MG TAB PO PRN (13:03)
--- NOTE | 2020-03-23 15:07 | PN ---
Date of Progress Note: 03/23/2020 The patient is basically status quo. He states he does feel somewhat better. He still has difficult y with any weightbearing whatsoever. Vital signs are stable. Only other problem has been some sligh t discomfort noted on voiding. We will do UA. Awaiting placement for rehab. HR/MODL Voice ID: [id number] Report ID: [id number]
[2020-03-23 17:16] VITALS: BP 106/55; TEMP 98
[2020-03-23 17:34] LABS: Urine Appearance CLEAR; Urine Bilirubin NEGATIVE (NEG); Urine Blood NEGATIVE (NEG); Urine Color YELLOW; Urine Glucose NEGATIVE (NEG); Urine Protein NEGATIVE (NEG); Urine Urobilinogen 0.2 mg/dL (0.2-1.0); Urine pH 6.5 (5.0-7.0)
[2020-03-23] MEDS ORDERED: PNEUMOCOCCAL VACCINE 0.5 ML IMVAC ONE (18:00)
[2020-03-23 18:35] LABS: Urine Microscopic Reflex ORDER UMIC
--- NOTE | 2020-03-23 18:47 | PN ---
Reason: To help determine if the patient will qualify for inpatient rehabilitation. Subjective: Mr. Corona is resting in bed. He did report some pain in the left thigh area in the late ral region where there is a palpable hard mass. His imaging of the right hip done on 03/22/2020, sofya ntified a mass as an 8.5 x 4.1 cm intramuscular hematoma, which is pushing somewhat in the left quadr iceps femoris. There is blooming artifact, but no evidence of a fracture in the left femur or in the hip. He does have a history of a large right MCA stroke with significant left arm and leg paresis f or which he did acute inpatient rehabilitation more than a year ago at [facility]. He did r ecover to the point where he would walk initially with a walker, then a cane and then no assistive de vice. The reason that he came in was he fell after bumping himself on the left side and was unable t o maintain his balance, hitting the left side and arm. Also there is a bruise on his left eye and le ft shoulder because of the fall. He had his head CT scan identifying no acute ischemic or hemorrhagi c change and his trauma series including cervical, chest, abdomen and pelvis CT did not show any frac tures. Since his admission on the 14 of March, now is 22 March, he has become significantly w eaker and debilitated. He has been unable to effectively bear weight. However, he did work with [employer] therapy earlier today. Did not actually want to stand because of some pain in the left thigh. He did do 3 sets of therapeutic exercises including heel slides, hip abduction and adduction includi ng involvement of the quadriceps muscles. He was in a spine position in bed when the exercises were done. On the , he was able to sit unsupported on the edge of the bed for more than 15 minutes an d did know that the left thigh area did improve when actually it was wrapped with an Abelardo bandage. He did return to supine position but did require maximum assistance. Objective: Vital Signs: Blood pressure 122/72, pulse 62, respiratory rate 16, temperature 97.8, oxy gen saturation 98%. General: Mr. Corona is resting in bed. He is in no significant distress. Bruising noted slightly ov er the left eye, a palpable mass on the left thigh area and some soreness in the left shoulder. He h as chronic stroke findings in the left upper and lower extremity with moderate to marked weakness not ed, but he had been able to stand and ambulate with the help of a cane prior to the fall. Laboratory Studies: His complete blood count with differential shows a slightly low hemoglobin of 10 .0, otherwise essentially unremarkable. INR 1.32. Chemistries unremarkable. He did have a low calc ium of 8.4, which is being corrected. Liver function studies show slightly elevated alkaline phospha tase 119, LDL cholesterol actually is fine at 64, HDL cholesterol is 61 with a total cholesterol to H DL ratio of 2.2. Did have a hip MRI, which identified hematoma but no fracture is indicated. Assessment: Mr. 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 He now comes in after a fall with a left lateral thigh hematoma and has been bed ridden f or around 8 days. As a result, he is significantly debilitated and does have some pain limiting his ability to get up and move around along with his chronic stroke that makes it very tough for him to g o out and independently live as he was doing. Plan: He should have aggressive inpatient physical and occupational therapy to help him regain his s trength as that he has lost because of reasons as indicated. He will need medical management of his stroke risk factors including hypertension, blood sugar manage ment and management of dyslipidemia. Furthermore, he has prostate hypertrophy and will need to fabian nue on this medication for the last. Does have a tendency to have edema in the extremities and will be managed for that with fluid management. Furthermore, he does have atrial fibrillation with a rapi d ventricular response. It is being managed by a project management instructor. He is on Eliquis 5 mg twice daily. He does have rate control with Toprol-XL. In addition because of the pain, he needs pain management, which includes Ultram and Fellows as the left thigh hematoma is resolving. Please note that the recom mendation is for him to go to inpatient rehabilitation to mitigate his circumstances and help him imp rove his functionality, his transfers, his distance, safe ambulation. He may be able to be discharged home after a stent in the inpatient rehabilitation unit. LB/MODL Voice ID: [id number] Report ID: [id number]
--- NOTE | 2020-05-08 16:01 | DS ---
Date of Discharge: 03/23/2020 The patient was admitted to the hospital on 03/14 after presenting to the emergency room with a fall. The patient had stroke number of months ago and left with left-sided weakness and paresis, spastici ty of his limbs. He fell and sustained multiple abrasions of his shoulder, face and complained of pa in in his lower back and left leg. This hospital stay, the pain seemed to localize more on the left anterior lateral portion of his leg and eventually a large tender mass was noted in the area. Scans, MRI, x-rays revealed no fracture. He was seen by Orthopedics who had done a hip repair on him in e past and felt it was soft tissue injury. They started him with physical therapy. The patient had marked difficulty weightbearing on that side, required extensive physical therapy. The area became m ore well defined. The other areas of his shoulder and face resolved, however, the persistent discomf ort and lack of mobility felt that he should be admitted to rehab for continuous PT. His vital signs remained stable throughout his hospital stay. He has a history of AFib and mitral valve repair and it was controlled on his usual medication. By 03/22, it was felt that he could be transfe rred to rehab. No evidence of an occult fracture. A large intramuscular hematoma, 5.8 x 4.1 was not ed. His H and H seemed stable. He was recently taken off his Eliquis, however, then he was placed b ack on it. The only other symptom was some discomfort on voiding. The UA was negative and we were j ust awaiting placement for rehab and was accepted. He was seen by Dr. 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 However, he was able to do PT and ambulate with assistance wi minimal weightbearing. He was discharged on 03/23 and transferred to the rehab floor. Final Diagnoses: Contusion of left upper leg; large hematoma; contusion and abrasion of the shoulder and face; atrial fibrillation, controlled, cerebrovascular accident; middle cerebral stable by history. HR/MODL Voice ID: [id number] Report ID: [id number]
--- NOTE | 2020-05-20 21:25 | DS ---
Date of Discharge: 03/23/2020 Hospital Course: The patient was admitted to the hospital on 03/14, had presented to the emergency r oom complaining of multiple uncomfortable area secondary to fall, which he sustained a couple of days prior to presenting to the ER. Most significant pain was in the left upper portion of his leg, alth ough he did have some abrasion and contusion of the face as well. He was admitted. Consultation was obtained with Orthopedic surgeon, who had done a hip replacement on a number of months ago. He also had an episode of atrial fibrillation with RVR and chronic atrial fibrillation, is on Eliquis. The patient is also post right middle cerebral artery with residual defects on the left side. Complained of significant discomfort in this area. Could not bear weight. He had an MRI, which did reveal rig ht intramuscular hematoma of the left upper leg and required some analgesics for this. shiatsu therapist apy worked with him with some improvement, however, it was felt that he would not be able to stay at home, which he had been with some outside help until this episode and felt that rehab would be the be st placement form. He was seen by the neurologist. An insurance issue resulted in a few days of del ay, but he eventually was improved and he was discharged in fair condition on 03/23 and readmitted to the rehab floor. Final Diagnoses: Hematoma intramuscular, left upper leg; cerebrovascular accident by history, right middle cerebral artery; atrial fibrillation with rapid ventricular response; episodic cle-pfwvccn-zow endent diabetes mellitus good, controlled. HR/MODL Voice ID: [id number] Report ID: [id number]
== END 2020-03-23 17:57 | DRG 184 ==
LOC: ER 02:09 → ERHOLD 06:46 → 2ND 17:43
PROVIDERS: ADMIT Family Medicine; ATTEND Family Medicine
DX: S22.49XA Multiple fractures of ribs, unspecified side, initial encounter for closed fracture (principal); I69.354 Hemiplegia and hemiparesis following cerebral infarction affecting left non-dominant side; I48.20 Chronic atrial fibrillation, unspecified; S70.02XA Contusion of left hip, initial encounter; S00.83XA Contusion of other part of head, initial encounter; S00.03XA Contusion of scalp, initial encounter; E11.9 Type 2 diabetes mellitus without complications; I95.9 Hypotension, unspecified; F32.9 Major depressive disorder, single episode, unspecified; N40.0 Benign prostatic hyperplasia without lower urinary tract symptoms; I10 Essential (primary) hypertension; E78.5 Hyperlipidemia, unspecified; W18.00XA Striking against unspecified object with subsequent fall, initial encounter; Z90.49 Acquired absence of other specified parts of digestive tract; Z91.81 History of falling; Z79.01 Long term (current) use of anticoagulants; Z20.822 Contact with and (suspected) exposure to COVID-19; Z23 Encounter for immunization
CPT/HCPCS: 36415; 70450; 71045; 71250; 72125; 72170; 80048; 80076; 81003; 83735; 83880; 84484; 85025; 85610; 90471; 90732; 93005; 97110; 97112; 97140; 97161; 97530; 99285; J2270; J2405; J7030; J7040; J7050; U0003

== ENCOUNTER 2020-03-16 09:49 | Inpatient (IN) | payer OTHER ==
--- NOTE | 2020-03-23 16:48 | R.PREADM ---
PRE-ADMISSION SCREENING FORM SCREENING DATE AND TIME 03/23/2020 15:04 (TAP DANCER) ANTICIPATED REHAB ADMISSION DATE 03/25/[address] [facility] REFERRAL DATE AND TIME 03/23/2020 15:04 (TAP DANCER) REFERRAL ROOM# 221 ACUTE ADMIT DATE 03/16/2020 Previous Rehabilitation(s): No. ACUTE CAD DEVELOPER/DC ADMINISTRATIVE SECRETARY Kailey He ATTENDING PHYSICIAN REFERRING PHYSICIAN DR PILLAI REHAB FACILITY [facility] CLINICAL LIAISON Edinson Alexis PHYSICIAN REVIEWER Dr. Abdirahman Zepeda M.D. MR# [id number] NAME PRICE ROGERS ADDRESS [address] [place] [address] BRANDON HAIRSTON BETHANY PHONE [facility] [id number] DATE OF 1940 AGE 79 SSN# [id number] GENDER male MARITAL STATUS RACE unknown race PREF. LANGUAGE (IF NON-DIVEHI) Turkish ADMIT FROM 02 - [facility] PRE-HOSPITAL LIVING SETTING 01 - Home (private home/apt. board/care, assisted living, mcc, transitional living) HOME TYPE AND DETAILS Type of home: single family house # of steps to enter the residence: 0 # of steps within the residence: 0 # of levels in the residence: 1 PRE-HOSPITAL LIVING WITH Family/Relatives FAMILY SUPPORT Yes PRIMARY FAMILY CONTACT NAME JOSÉ ROGERS PRIMARY FAMILY CONTACT PHONE PRIMARY FAMILY CONTACT RELATIONSHIP Son PHONE PRIMARY FAMILY CONTACT ON ADM.? no IS PRIMARY FAMILY CONTACT AUTH. REP.? no 1ST EMERGENCY CONTACT JOSÉ ROGERS 1ST CONTACT PHONE 1ST CONTACT RELATIONSHIP Son PHONE 1ST CONTACT ON ADM. no IS 1ST CONTACT AUTH. REP.? no PHONE 2ND CONTACT ON ADM.? no PATIENT EMPLOYMENT STATUS Retired (for age) PATIENT EMPLOYER No Employer PAYOR INFORMATION: 1ST PAYOR NAME [employer] 1ST PAYOR PHONE 1ST PAYOR POLICY ID [id number] INJURY/ILLNESS DUE TO ACCIDENT? No ANOTHER REPUBLICAN RESPONSIBLE? No PRIMARY REHAB/ACUTE DIAGNOSIS: A-FIB, FALLS ONSET DATE 03/22/2020 REHAB IMPAIRMENT CATEGORY (ODIN): 14 Cardiac does NOT meet 60% rule PRIMARY DIAGNOSIS-RELATED SURGERIES: N/A SUMMARY OF ACUTE HOSPITALIZATION: Pt. is a 79 yo Right-handed male of unknown race. On 03/14/[address] [facility] with diagnosis A-FIB, FALLS. His impairment category is Cardiac 09 - Cardiac Disorders (09). Pre-morbidly, Pt. was independent/mod-I in Balance, Social Cognition, Sphincter Control, Transfers Co ntrol, Locomotion, and Endurance; and he had good Self-Care and Sphincter Control. Currently, he has deficits of Locomotion, Safety Awareness, Social Cognition, Balance, Transfers Cont rol, Sphincter Control, and Endurance. Pt. is now referred to [facility] for acute in-patient rehabilitation in order to maximize patient's functional independence in activities of daily living, strength, ROM, and mobi lity. Patient has realistic goal of being discharged at assistance level 7-Ind to reside at Home with Fami ly/Relatives. PAST MEDICAL HISTORY CVA L HEMIPLEGIA 06/25/18 L HEMIPLEGIA 06/25/18 A-FIB HYPERLIPIDEMIA CHRONIC ANTICOAGULATION MILD CHF PAST SURGICAL HISTORY: MITRAL VALVE REPAIR MEDICATION ALLERGIES: No Known Drug Allergies (NKDA) ENVIRONMENTAL ALLERGIES: - Substance Allergies None Known - Other Allergies None Known CODE STATUS: Full code WEIGHT/HEIGHT/BMI: WEIGHT 211 lbs HEIGHT 5' 7" BMI 33 DIET: - Diet Type Regular - Diet - Solid Texture Regular - Diet - Liquid Texture Regular - Tube Feed N/A REVIEW OF SYSTEMS: - Gen Alert and awake Lying in bed No apparent distress Oriented to: person, time, and place - Vital Signs Temperature: 97.6 F SBP/DBP: 122/69 Pulse: 68 Resp: 17 Vital signs stable, afebrile - CVS RRR VITAL SIGNS Temperature: 97.6 F SBP/DBP: 122/69 Pulse: 68 Resp: 17 Vital signs stable, afebrile MEDICATIONS/TREATMENT: Other- See attached MAR (Medication Administration Record). CURRENT SPHINCTER CONTROL: Pre-hospital bladder status: unspecified # of bladder accidents in the last 7 days prior to screenin Pre-hospital bowel status: unspecified # of bowel accidents in the last 7 days prior to screenin Last Bowel Movement Date: 03/15/2020 CURRENT LOCOMOTION STATUS: distance walked 4 side steps DETAILED CURRENT FUNCTIONAL STATUS: - Bladder accident frequency: Ind - No accidents in the past 7 days - Bowel accident frequency: Ind - No accidents in the past 7 days - Walking score based on distance walked: 0(N/A) - Wheelchair score based on distance traveled: 0(N/A) QI SCORES: - Self-Care A. Eating 03-Partial/moderate assistance B. Oral hygiene 03-Partial/moderate assistance C. Toileting hygiene 02-Substantial/maximal assistance E. Shower/bathe self 02-Substantial/maximal assistance F. Upper body dressing 03-Partial/moderate assistance G. Lower body dressing 02-Substantial/maximal assistance H. Putting on/taking off footwear 88-Not attempted due to medical condition or safety concerns - Mobility A. Roll left and right 03-Partial/moderate assistance B. Sit to lying 03-Partial/moderate assistance C. Lying to sitting on side of bed 03-Partial/moderate assistance D. Sit to stand 03-Partial/moderate assistance E. Chair/cds-yp-aajlk transfer 02-Substantial/maximal assistance F. Toilet transfer 02-Substantial/maximal assistance G. Car transfer 88-Not attempted due to medical condition or safety concerns I. Walk 10 feet 88-Not attempted due to medical condition or safety concerns J. Walk 50 feet with two turns 88-Not attempted due to medical condition or safety concerns K. Walk 150 feet 88-Not attempted due to medical condition or safety concerns L. Walking 10 feet on uneven surfaces 88-Not attempted due to medical condition or safety concerns M. 1 step (curb) 88-Not attempted due to medical condition or safety concerns N. 4 steps 88-Not attempted due to medical condition or safety concerns O. 12 steps 88-Not attempted due to medical condition or safety concerns P. Picking up object 88-Not attempted due to medical condition or safety concerns R. Wheel 50 feet with two turns 88-Not attempted due to medical condition or safety concerns S. Wheel 150 feet 88-Not attempted due to medical condition or safety concerns - Bladder and Bowel Bladder continence Bowel continence - Endurance Fair - Balance Fair - Safety Awareness Fair CURRENT FUNC. DEFICITS: Self-Care, Mobility, Endurance, Balance, and Safety Awareness CURRENT / PREVIOUS ASSISTIVE DEVICES: Rolling Walker Shower Chair HISTORY OF FALLS. HAS THE PATIENT HAD TWO OR MORE FALLS IN THE PAST YEAR OR ANY FALL WITH INJURY IN T HE PAST YEAR?: Yes PRIOR SURGERY. DID THE PATIENT HAVE MAJOR SURGERY DURING THE 100 DAYS PRIOR TO ADMISSION?: No THERAPY NOTES FROM ACUTE CARE: Attached. SPECIAL NEEDS: - Safety Concerns Skin breakdown precautions needed due to skin breakdown risk PATIENT NEEDS ACTIVE AND ONGOING THERAPEUTIC INTERVENTION OF MULTIPLE THERAPY DISCIPLINES, INCLUDING: - Dietary and Nutrition Adequate Nutrition. Nutritional Education. Nutritional Supplements. PATIENT NEEDS CLOSE MEDICAL SUPERVISION BY A REHABILITATION PHYSICIAN FOR: Coordination of Treatment Team Post-Op Complications PATIENT REQUIRES 24X7 REHAB NURSING FOR MEDICAL AND FUNCTIONAL MGT. OF THE FOLLOWING DEFICITS: Disease Management Medication Management Patient/Family Education Providing Safe Environment PATIENT REQUIRES INTENSIVE, COORDINATED INTERDISCIPLINARY APPROACH TO REHAB: Arranging Home Equipment/Services Discharge Planning Family Intervention/Training Survey Chief/Case Management PATIENT REHAB POTENTIAL: Nelida ROGERS is able and expected to receive 3 hours of individualized therapy daily on at least 5 of jeffrey ry 7 days Nelida ROGERS's prognosis for significant practical improvement within a reasonable period of time appears Good Expected level of measurable improvement will be of a practical value to Nelida ROGERS's functional capaci ty or adaptations to impairments Has a viable Discharge Plan Medically appropriate; condition is sufficiently stable to participate in intensive rehab program DISCHARGE PLAN: - Estimated Length of Stay (days) 10. - Consensus on plan Discharge plan has been discussed with primary caregiver. Patient/Family is in agreement with the denis n. Primary caregiver is in agreement with the plan. - Patient/Family Goals Return home independently. - Planned Living Setting Upon Discharge Home, to live with Family/Relatives. Transitional Living. RECOMMENDED CARE LEVEL: IRF RECOMMENDATION DETAILS: Recommended Admission to Comprehensive Rehabilitation Program to Increase Functional [place] SCREENER'S COMPLETENESS CONFIRMATION: - Screening Confirmation The patient data collection on this preadmission screening form is finished PHYSICIANS REVIEW AND ADMISSION DETERMINATION Admit - Based on my review of the Pre-Admission Screening results, in my medical judgment and experie nce, I concur with the findings and recommend admission to [facility], as this patient requires an IRF level of care. SIGNATURE PANEL: Court Reporter - [electronically] signed by Edinson Alexis on 03/23/2020 at 15:07 (TAP DANCER) Court Reporter - [electronically] signed by Skip Phillips PT on 03/23/2020 at 15:12 (TAP DANCER) Physician Reviewer - [electronically] signed by Dr. Abdirahman Zepeda M.D. on 03/23/2020 at 16:48 (TAP DANCER )
[2020-03-23] MEDS ORDERED: TETRAHYDROZOLINE HCL 150 DROPS/15 ML BTL OPTH PRN ×2 (18:43→18:51)
[2020-03-23 19:00] LABS: Urine Appearance CLEAR; Urine Bilirubin NEGATIVE (NEG); Urine Blood NEGATIVE (NEG); Urine Color YELLOW; Urine Glucose NEGATIVE (NEG); Urine Protein NEGATIVE (NEG); Urine Urobilinogen 0.2 mg/dL (0.2-1.0); Urine pH 6.5 (5.0-7.0)
[2020-03-23 19:01] LABS: Urine Bacteria <20 /HPF (NONE SEEN); Urine RBC <5 /HPF (NONE SEEN)
[2020-03-23] MEDS: TAMSULOSIN 0.4 MG SR CAP PO SCH (20:01)
[2020-03-23] MEDS: MAGNESIUM OXIDE 400 MG TAB PO SCH (20:01)
[2020-03-23] MEDS: APIXABAN 5 MG TABLET PO SCH (20:01)
[2020-03-23] MEDS: ATORVASTATIN 10 MG TAB PO SCH (20:01)
[2020-03-24] MEDS: ACETAMINOPHEN 500 MG TAB PO PRN ×2 (00:51→08:31)
[2020-03-24] MEDS: ONDANSETRON 4 MG (ODT) TAB PO PRN ×2 (04:47→08:31)
[2020-03-24] MEDS ORDERED: METOPROLOL XL 50 MG TAB PO SCH (06:00)
[2020-03-24 06:27] LABS: Absolute Lymphocytes (CBC) 1.6 K/uL (0.7-4.9); Basophils % 0.5 % (0-1.3); Hematocrit 32.5 % (39.6-49.0); Lymphocytes % 18.8 % (15.3-44.8); MPV 8.1 fL (7.6-11.3); RBC Red Blood Cell Count 3.48 M/uL (4.33-5.43)
[2020-03-24 06:55] LABS: Albumin 3.1 g/dL (3.4-5.0); BUN Blood Urea Nitrogen 23 mg/dL (7-18); Bicarbonate 28 mmol/L (21-32); Glucose Level 102 mg/dL (74-106); Magnesium 2.3 mg/dL (1.8-2.4); Prealbumin 15.9 mg/dL (20-40); Sodium Level 138 mmol/L (136-145)
[2020-03-24] MEDS: FUROSEMIDE 20 MG TABLET PO SCH (08:00)
[2020-03-24] MEDS: VALSARTAN 40 MG TAB PO SCH (08:00)
[2020-03-24] MEDS ORDERED: METOPROLOL XL 25 MG TAB PO SCH (08:00)
[2020-03-24] MEDS: CITALOPRAM 10 MG TABLET PO SCH (08:26)
[2020-03-24] MEDS: APIXABAN 5 MG TABLET PO SCH ×2 (08:26→19:24)
[2020-03-24] MEDS: GABAPENTIN 300 MG CAP PO SCH ×2 (08:26→19:23)
[2020-03-24] MEDS: MAGNESIUM OXIDE 400 MG TAB PO SCH ×2 (08:27→19:24)
[2020-03-24] MEDS: METFORMIN HCL 500 MG TAB PO SCH (08:28)
[2020-03-24] MEDS ORDERED: GABAPENTIN 300 MG CAP PO SCH (09:00)
[2020-03-24] MEDS: LIDOCAINE 4% PATCH TOP SCH (10:30)
--- NOTE | 2020-03-24 14:32 | R.HP ---
HISTORY AND PHYSICAL FACILITY: [facility] ENCOUNTER DATE AND TIME: 03/24/2020 14:25 (PROGRAM REVIEW DIRECTOR) MR#: [id number] NAME PRICE ROGERS ADDRESS: [address] [place] [address] CITY: [place]IP [address] PHONE: DATE OF : 1940 AGE: 79 SSN# [id number] GENDER: Male DEXTERITY Right-handed MARITAL STATUS RACE Unknown race PRE-HOSPITAL LIVING SETTING 01 - Home (private home/apt. board/care, assisted living, penitentiary, transitional living) PRE-HOSPITAL LIVING WITH Family/Relatives ENCOUNTER PHYSICIAN: Dr. Abdirahman Zepeda M.D. REFERRING DOCTOR: DR PILLAI DATE OF ADMISSION: 03/23/2020 17:58 (PROGRAM REVIEW DIRECTOR) REFERRING FACILITY [facility] HOME TYPE AND DETAILS: Type of home: single family house # of steps to enter the residence: 0 # of steps within the residence: 0 # of levels in the residence: 1 ONSET DATE: 03/22/2020 PRIMARY DIAGNOSIS-RELATED SURGERIES: N/A HISTORY OF PRESENT ILLNESS (HPI): Pt. is a 79 yo Right-handed male of unknown race. On 03/14/2020 he was admitted to [facility] with diagnosis A-FIB, FALLS. His impairment category is Cardiac 09 - Cardiac Disorders (09). Pre-morbidly, Pt. was independent/mod-I in Balance, Social Cognition, Sphincter Control, Transfers Co ntrol, Locomotion, and Endurance; and he had good Self-Care and Sphincter Control. Currently, he has deficits of Locomotion, Safety Awareness, Social Cognition, Balance, Transfers Cont rol, Sphincter Control, and Endurance. Pt. is now referred to [facility] for acute in-patient rehabilitation in order to maximize patient's functional independence in activities of daily living, strength, ROM, and mobi lity. Patient has realistic goal of being discharged at assistance level 7-Ind to reside at Home with Fami ly/Relatives. MEDICATION ALLERGIES: No Known Drug Allergies (NKDA) ENVIRONMENTAL ALLERGIES: - Substance Allergies None Known - Other Allergies None Known PAST MEDICAL HISTORY: CVA L HEMIPLEGIA 06/25/18 L HEMIPLEGIA 06/25/18 A-FIB HYPERLIPIDEMIA CHRONIC ANTICOAGULATION MILD CHF PAST SURGICAL HISTORY: MITRAL VALVE REPAIR SOCIAL HISTORY: - Home Living Family/Relatives REVIEW OF SYSTEMS: - Gen No Chills Fatigue No Fever - Eyes No Double Vision No itchiness - ENMT No Difficulty Swallowing - CVS No Chest Discomfort No Chest Pain No Fatigue No Weight Gain - Resp No Cough No Shortness of Breath - GI Continent No Abdominal Pain No Constipation No Diarrhea - Continent No Kidney Pain No Painful Urination No Urinary Urgency - MSK No Joint Pain Muscle Cramps Stiffness - Skin No Itching No Rash No Suspicious Lesions - Neuro Coordination Difficulty No Difficulty with Concentration No Memory Loss No Seizures Weakness - Psych No Anxiety No Depression No HIV Exposure No Persistent Infections No Seasonal Allergies - Endo No Cold/Heat Intolerance No Excessive Hunger No Excessive Thirst No Excessive Urination PHYSICAL EXAM - Gen Alert and awake Lying in bed No apparent distress Oriented to: person, time, and place - Skin No skin breakdown. No abnormalities - Eyes No abnormalities - ENMT No abnormalities - Neck No abnormalities - CVS RRR - Chest No abnormalities - Resp Clear to auscultation - Abd Soft - GI nondistended Deferred - No abnormalities - Ext No significant edema - MSK 2-3+/5 weakness in left upper and lower extremity - Neuro 2-3+/5 weakness left upper and lower extremities. - Psych No abnormalities VITAL SIGNS Temperature: 97.6 F SBP/DBP: 122/69 Pulse: 68 Resp: 17 NURSING: - Shower allowing shower ACTIVITIES OOB only with supervision QI SCORES: - Self-Care A. Eating 03-Partial/moderate assistance B. Oral hygiene 03-Partial/moderate assistance C. Toileting hygiene 02-Substantial/maximal assistance E. Shower/bathe self 02-Substantial/maximal assistance F. Upper body dressing 03-Partial/moderate assistance G. Lower body dressing 02-Substantial/maximal assistance H. Putting on/taking off footwear 88-Not attempted due to medical condition or safety concerns - Mobility A. Roll left and right 03-Partial/moderate assistance B. Sit to lying 03-Partial/moderate assistance C. Lying to sitting on side of bed 03-Partial/moderate assistance D. Sit to stand 03-Partial/moderate assistance E. Chair/fgd-he-jwrrn transfer 02-Substantial/maximal assistance F. Toilet transfer 02-Substantial/maximal assistance G. Car transfer 88-Not attempted due to medical condition or safety concerns I. Walk 10 feet 88-Not attempted due to medical condition or safety concerns J. Walk 50 feet with two turns 88-Not attempted due to medical condition or safety concerns K. Walk 150 feet 88-Not attempted due to medical condition or safety concerns L. Walking 10 feet on uneven surfaces 88-Not attempted due to medical condition or safety concerns M. 1 step (curb) 88-Not attempted due to medical condition or safety concerns N. 4 steps 88-Not attempted due to medical condition or safety concerns O. 12 steps 88-Not attempted due to medical condition or safety concerns P. Picking up object 88-Not attempted due to medical condition or safety concerns R. Wheel 50 feet with two turns 88-Not attempted due to medical condition or safety concerns S. Wheel 150 feet 88-Not attempted due to medical condition or safety concerns - Bladder and Bowel Bladder continence Bowel continence - Endurance Fair - Balance Fair - Safety Awareness Fair CURRENT FUNC. DEFICITS: Self-Care, Mobility, Endurance, Balance, and Safety Awareness MEDICATIONS: - Other See attached MAR (Medication Administration Record) ASSESSMENT: Pt. is a 79 yo Right-handed male of unknown race.On 03/14/2020 he was admitted to [facility] with diagnosis A-FIB, FALLS.His impairment category is Cardiac 09 - Cardiac Disorders (09).Pre- morbidly, Pt. was independent/mod-I in Balance, Social Cognition, Sphincter Control, Transfers Contro l, Locomotion, and Endurance; and he had good Self-Care and Sphincter Control.Currently, he has defic its of Locomotion, Safety Awareness, Social Cognition, Balance, Transfers Control, Sphincter Control, and Endurance.Pt. is now referred to [facility] for acute in-patient rehabili tation in order to maximize patient's functional independence in activities of daily living, strength , ROM, and mobility.- Rehab Goal Patient has realistic goal of being discharged at assistance level 7-Ind to reside at Home with Fami ly/Relatives. - Physical Therapy Gait dysfunction - to improve, our physical therapists will perform initial evaluation of pt's status upon admission and devise an individualized program for Gait Training, and Wheel Chair mobility Inability to transfer - to improve, our physical therapists will perform initial evaluation of pt's s tatus upon admission and devise an individualized program for Bed mobility Need for home safety evaluation - to improve, our physical therapists will perform initial evaluation of pt's status upon admission and devise an individualized program for Home Evaluation Need in caregiver upon discharge - to improve, our physical therapists will perform initial evaluatio n of pt's status upon admission and devise an individualized program for Caregiver Training New precaution - to improve, our physical therapists will perform initial evaluation of pt's status u uriel admission and devise an individualized program for Patient precaution education Edema - to improve, our physical therapists will perform initial evaluation of pt's status upon admi ssion and devise an individualized program for Elevation Training, and Lymphedema Therapy Poor balance - to improve, our physical therapists will perform initial evaluation of pt's status upo n admission and devise an individualized program for Balance Training Poor endurance - to improve, our physical therapists will perform initial evaluation of pt's status u uriel admission and devise an individualized program for Endurance Training Weakness - to improve, our physical therapists will perform initial evaluation of pt's status upon ad mission and devise an individualized program for Aquatic Therapy, Neuromuscular Reeducation, and Stre ngthening Achieving independence - to improve, our physical therapists will perform initial evaluation of pt's status upon admission and devise an individualized program for Community Reintegration Activities - Occupational Therapy Cognitive deficits - to improve, our occupation therapists will perform initial evaluation of pt's st atus upon admission and devise an individualized program for Cognition - orientation Need for career placement services counselor - to improve, our occupation therapists will perform initial evaluation of pt's s tatus upon admission and devise an individualized program for Caregiver Training Weakness - to improve, our occupation therapists will perform initial evaluation of pt's status upon admission and devise an individualized program for Aquatic Therapy, Balance, Endurance, UE ROM, and U E strengthening MEDICAL PLAN: - Diet Type Start Regular - Diet - Liquid Texture Start Regular - Tube Feed Start N/A - Other See attached MAR (Medication Administration Record) - Diet - Solid Texture Regular - Shower shower DISCHARGE PLAN: - Estimated Length of Stay (days) 10. - Consensus on plan Discharge plan has been discussed with primary caregiver. Patient/Family is in agreement with the denis n. Primary caregiver is in agreement with the plan. - Patient/Family Goals Return home independently. - Planned Living Setting Upon Discharge Home, to live with Family/Relatives. Transitional Living. SIGNATURE PANEL: (PROGRAM REVIEW DIRECTOR)
--- NOTE | 2020-03-24 14:34 | PAPE ---
POST ADMISSION PHYSICIAN EVALUATION PATIENT: [facility] MR# [id number] REFERRING DOCTOR DR PILLAI EVALUATION DATE AND TIME 03/24/2020 14:32 (WAIST CUTTER) NAME PRICE ROGERS DATE OF 1940 AGE 79 PHONE SSN# [id number] GENDER male EVALUATING PHYSICIAN Dr. Abdirahman Zepeda M.D. ADMISSION DIAGNOSIS: A-FIB, FALLS ONSET DATE 03/22/2020 POST-ADMISSION FUNCTIONAL/MEDICAL STATUS: - Bladder Same accident frequency: Ind - No accidents in the past 7 days - Bowel Same accident frequency: Ind - No accidents in the past 7 days - Walking Same score based on distance walked: 0(N/A) - Wheelchair Same score based on distance traveled: 0(N/A) STATUS CHANGE EVALUATION: No change in Functional or Medical Status is identified compared with Pre-Admission screening. PATIENT NEEDS CLOSE MEDICAL SUPERVISION BY A REHABILITATION PHYSICIAN FOR: Coordination of Treatment Team Post-Op Complications PATIENT REQUIRES 24X7 REHAB NURSING FOR MEDICAL AND FUNCTIONAL MGT. OF THE FOLLOWING DEFICITS: Disease Management Medication Management Patient/Family Education Providing Safe Environment PATIENT REQUIRES INTENSIVE, COORDINATED INTERDISCIPLINARY APPROACH TO REHAB: Arranging Home Equipment/Services Discharge Planning Family Intervention/Training Trouble Locator Test Desk/Case Management LIST OF IDENTIFIED AND POTENTIAL PROBLEMS: Alteration in leisure activities Bladder, Incontinence Bowel, Incontinence Infection, Actual or Potential Mobility Impaired Pain, Alteration in Comfort Self Care Deficit Skin Integrity, Actual or Potential Urinary Tract Infection (UTI), Actual or Potential PATIENT COULD BE AT RISK FOR COMPLICATIONS FROM ADVERSE MEDICAL CONDITIONS DUE TO HIS/HER COMORBIDITI ES AND THE RIGORS OF THE INTENSIVE REHABILLITATION PROGRAM. METHODS OR INTERVENTIONS TO AVOID COMPLIC ATIONS INCLUDE: - Infection Clinical staff to assess and manage the signs and symptoms of infection including fever, redness, war mth, etc. - Urinary Tract Infection - Falls Patient will be evaluated for Fall Precautions and will be placed on Fall Precautions as indicated pe r protocol. - Skin Breakdown Nursing will assess skin daily using assessment tool and will place on Skin Breakdown Precautions as indicated per protocol. - Pain Clinical staff may employ non-medication methods such as massage, distraction, decrease stimulus, etc . as needed. Clinical staff will assess patient's pain level every shift per protocol to assess and e nsure pain management effectiveness. Medications will be given and the pain level re-assessed. PRELIMINARY PLAN OF CARE: - Physical Therapy Patient needs Physical Therapy for a daily minimum of 1.5 hours at least 5 out of 7 days, to improve: Mobility, Strengthening, Transfers, Stretching, ROM, Endurance, Ability to manage stairs, Gait, and Balance. - Speech Therapy Patient needs Speech Therapy for a daily minimum of 0.5 hours at least 5 out of 7 days, to improve: S wallowing, Cognition, Language Skills, and Compensatory Strategies. - Rehabilitation Nursing Patient requires 24x7 Rehabilitation Nursing for: Pain Issues, Identifying and preventing risk factor s, Monitoring and reporting current medical conditions, Assisting with ambulation and transfer, Gilberto ting with all ADL-s, Teaching patients about disease process and medications, Family teaching, Provid ing safe environment, Bowel and Bladder Issues, Skin Integrity, and Medication Management. Patient needs Trouble Locator Test Desk and/or Case Management for: Discharge Planning, Arranging Home Equipmen t or Services, and Family Interventions. - Dietary and Nutrition Services Patient needs Dietary and Nutrition Services for: Adequate Nutrition, Nutritional Supplements, and Nu tritional Education. - Occupational Therapy Patient needs Occupational Therapy for a daily minimum of 1.5 hours at least 5 out of 7 days, to impr ove Activities of Daily Living, including: Eating, Grooming, Bathing, Dressing, Toileting, Toilet Tra nsfers, Community Reintegration, Higher functional activities, Adaptive Equipment, Splinting, Househo ld Tasks, and Other activities as determined. QI SCORES: - Self-Care A. Eating 03-Partial/moderate assistance B. Oral hygiene 03-Partial/moderate assistance C. Toileting hygiene 02-Substantial/maximal assistance E. Shower/bathe self 02-Substantial/maximal assistance F. Upper body dressing 03-Partial/moderate assistance G. Lower body dressing 02-Substantial/maximal assistance H. Putting on/taking off footwear 88-Not attempted due to medical condition or safety concerns - Mobility A. Roll left and right 03-Partial/moderate assistance B. Sit to lying 03-Partial/moderate assistance C. Lying to sitting on side of bed 03-Partial/moderate assistance D. Sit to stand 03-Partial/moderate assistance E. Chair/lau-ax-ngalv transfer 02-Substantial/maximal assistance F. Toilet transfer 02-Substantial/maximal assistance G. Car transfer 88-Not attempted due to medical condition or safety concerns I. Walk 10 feet 88-Not attempted due to medical condition or safety concerns J. Walk 50 feet with two turns 88-Not attempted due to medical condition or safety concerns K. Walk 150 feet 88-Not attempted due to medical condition or safety concerns L. Walking 10 feet on uneven surfaces 88-Not attempted due to medical condition or safety concerns M. 1 step (curb) 88-Not attempted due to medical condition or safety concerns N. 4 steps 88-Not attempted due to medical condition or safety concerns O. 12 steps 88-Not attempted due to medical condition or safety concerns P. Picking up object 88-Not attempted due to medical condition or safety concerns R. Wheel 50 feet with two turns 88-Not attempted due to medical condition or safety concerns S. Wheel 150 feet 88-Not attempted due to medical condition or safety concerns - Bladder and Bowel Bladder continence Bowel continence - Endurance Fair - Balance Fair - Safety Awareness Fair POTENTIAL FUNCTIONAL GOALS FOR PATIENT TO ACHIEVE BY DISCHARGE: - Safety Precaution Patient will remain free from falls or injury at time of discharge. - Bed Mobility Patient will perform bed mobility at 4-Anil level of assistance. - Transfers Patient will complete transfers from bed to chair at 4-Anil level of assistance. - Mobility Patient will ambulate 150 ft with 4-Anil level of assistance with RW. PATIENT REHAB POTENTIAL Nelida ROGERS is able and expected to receive 3 hours of individualized therapy daily on at least 5 of 7 days Nelida Brown prognosis for significant practical improvement within a reasonable period of time appears Good Expected level of measurable improvement will be of a practical value to Nelida ROGERS's functional capaci ty or adaptations to impairments Has a viable Discharge Plan Medically appropriate; condition is sufficiently stable to participate in intensive rehab program DISCHARGE PLAN: - Estimated Length of Stay (days) 10. - Consensus on plan Discharge plan has been discussed with primary caregiver. Patient/Family is in agreement with the densi n. Primary caregiver is in agreement with the plan. - Patient/Family Goals Return home independently. - Planned Living Setting Upon Discharge Home, to live with Family/Relatives. Transitional Living. CONCLUSION ON REHABILITATION NECESSITY: I have evaluated patient's pre-admission functional status and, comparing it to the patient's post-ad mission functional status now, I conclude that the pre-admission assessment was accurate. Patient's c ondition on admission supports the medical necessity of admission to IRF. It is safe to proceed with patient's therapy program. SIGNATURE PANEL: (WAIST CUTTER)
[2020-03-24] MEDS: METOPROLOL XL 25 MG TAB PO SCH (17:22)
[2020-03-24] MEDS: ATORVASTATIN 10 MG TAB PO SCH (19:24)
[2020-03-24] MEDS: TAMSULOSIN 0.4 MG SR CAP PO SCH (19:24)
[2020-03-25] MEDS: ACETAMINOPHEN 500 MG TAB PO PRN ×2 (03:46→23:01)
[2020-03-25] MEDS: METOPROLOL XL 25 MG TAB PO SCH ×2 (05:29→17:14)
[2020-03-25] MEDS: VALSARTAN 40 MG TAB PO SCH (08:00)
[2020-03-25] MEDS: FUROSEMIDE 20 MG TABLET PO SCH (08:00)
[2020-03-25] MEDS: LIDOCAINE 4% PATCH TOP SCH (09:19)
[2020-03-25] MEDS: GABAPENTIN 300 MG CAP PO SCH ×2 (09:19→19:39)
[2020-03-25] MEDS: APIXABAN 5 MG TABLET PO SCH ×2 (09:19→19:40)
[2020-03-25] MEDS: CITALOPRAM 10 MG TABLET PO SCH (09:20)
[2020-03-25] MEDS: METFORMIN HCL 500 MG TAB PO SCH (09:21)
[2020-03-25] MEDS: MAGNESIUM OXIDE 400 MG TAB PO SCH ×2 (09:22→19:40)
[2020-03-25] MEDS: ATORVASTATIN 10 MG TAB PO SCH (19:39)
[2020-03-25] MEDS: TAMSULOSIN 0.4 MG SR CAP PO SCH (19:39)
[2020-03-26] MEDS: METOPROLOL XL 25 MG TAB PO SCH ×2 (05:51→17:11)
[2020-03-26] MEDS: ACETAMINOPHEN 500 MG TAB PO PRN ×2 (07:52→12:00)
[2020-03-26] MEDS: GABAPENTIN 300 MG CAP PO SCH ×2 (07:54→20:19)
[2020-03-26] MEDS: MAGNESIUM OXIDE 400 MG TAB PO SCH ×2 (07:55→20:19)
[2020-03-26] MEDS: METFORMIN HCL 500 MG TAB PO SCH (07:55)
[2020-03-26] MEDS: CITALOPRAM 10 MG TABLET PO SCH (07:56)
[2020-03-26] MEDS: APIXABAN 5 MG TABLET PO SCH ×2 (07:56→20:19)
[2020-03-26] MEDS: FUROSEMIDE 20 MG TABLET PO SCH (08:00)
[2020-03-26] MEDS: VALSARTAN 40 MG TAB PO SCH (08:00)
[2020-03-26] MEDS: LIDOCAINE 4% PATCH TOP SCH (09:57)
[2020-03-26] MEDS: TRAMADOL HCL 50 MG TAB PO PRN (13:48)
[2020-03-26] MEDS: TAMSULOSIN 0.4 MG SR CAP PO SCH (20:19)
[2020-03-26] MEDS: ATORVASTATIN 10 MG TAB PO SCH (20:19)
[2020-03-26] MEDS: MELATONIN 3 MG TABLET PO PRN (22:19)
[2020-03-27] MEDS: METOPROLOL XL 25 MG TAB PO SCH ×2 (05:34→17:08)
[2020-03-27] MEDS: CITALOPRAM 10 MG TABLET PO SCH (07:40)
[2020-03-27] MEDS: FUROSEMIDE 20 MG TABLET PO SCH (07:41)
[2020-03-27] MEDS: APIXABAN 5 MG TABLET PO SCH ×2 (07:41→20:04)
[2020-03-27] MEDS: METFORMIN HCL 500 MG TAB PO SCH (07:41)
[2020-03-27] MEDS: VALSARTAN 40 MG TAB PO SCH (07:42)
[2020-03-27] MEDS: TRAMADOL HCL 50 MG TAB PO PRN ×2 (07:43→12:09)
[2020-03-27] MEDS: GABAPENTIN 300 MG CAP PO SCH ×2 (07:47→20:05)
[2020-03-27] MEDS: MAGNESIUM OXIDE 400 MG TAB PO SCH ×2 (07:48→20:04)
[2020-03-27] MEDS: LIDOCAINE 4% PATCH TOP SCH (08:42)
[2020-03-27] MEDS: ACETAMINOPHEN 500 MG TAB PO PRN (10:18)
[2020-03-27] MEDS: TAMSULOSIN 0.4 MG SR CAP PO SCH (20:04)
[2020-03-27] MEDS: ATORVASTATIN 10 MG TAB PO SCH (20:04)
--- NOTE | 2020-03-28 01:39 | R.PN ---
PROGRESS NOTES ENCOUNTER DATE AND TIME: 03/27/2020 19:10 (AGRONOMIST) NAME PRICE ROGERS DATE OF : 1940 DATE OF ADMISSION: 03/23/2020 17:58 (AGRONOMIST) Left thigh hematoma, debility, A-FIB, FALLSSUBJECTIVE: Pt denied any depression. Pt denied any Shortness of Breath. He reports moderate pain in the left lateral thigh at the sight of the hematoma. He did well with transfers and ADLs. He requires max assistance with ambulation. Labs reviewed and are stable. VITAL SIGNS Temperature: 97.8 F SBP/DBP: 125/74 Pulse: 72 Resp: 17 MEDICATION ALLERGIES: No Known Drug Allergies (NKDA) ENVIRONMENTAL ALLERGIES: - Substance Allergies None Known - Other Allergies None Known NURSING: - Shower allowing shower ACTIVITIES OOB only with supervision THERAPIES: - Dietary and Nutrition Adequate Nutrition. Nutritional Education. Nutritional Supplements. PHYSICAL EXAM - Gen Alert and awake Lying in bed No apparent distress Oriented to: person, time, and place - Skin No skin breakdown. No abnormalities - Eyes No abnormalities - ENMT No abnormalities - Neck No abnormalities - CVS RRR - Chest No abnormalities - Resp Clear to auscultation - Abd Soft - GI nondistended Deferred - No abnormalities - Ext No significant edema - MSK 2-3+/5 weakness in left upper and lower extremity - Neuro 2-3+/5 weakness left upper and lower extremities. - Psych No abnormalities ASSESSMENT: Pt. is a 79 yo Right-handed male of unknown race.On 03/14/2020 he was admitted to [facility] with diagnosis Left thigh hematoma, debility, A-FIB, FALLS.His impairment category is Cardiac 09 - Cardiac Disorders (09).Pre-morbidly, Pt. was independent/mod-I in Balance, Social Cognition, Sphi ncter Control, Transfers Control, Locomotion, and Endurance; and he had good Self-Care and Sphincter Control.Currently, he has deficits of Locomotion, Safety Awareness, Social Cognition, Balance, Transf ers Control, Sphincter Control, and Endurance.Pt. is now referred to [facility] for acute in-patient rehabilitation in order to maximize patient's functional independence in activ ities of daily living, strength, ROM, and mobility.- Rehab Goal Patient has realistic goal of being discharged at assistance level 7-Ind to reside at Home with Fami ly/Relatives. MDM/PLAN: - Physical Therapy Gait dysfunction - to improve, our physical therapists will perform initial evaluation of pt's status upon admission and devise an individualized program for Gait Training, and Wheel Chair mobility Inability to transfer - to improve, our physical therapists will perform initial evaluation of pt's status upon admission and devise an individualized program for Bed mobility Need for home safety evaluation - to improve, our physical therapists will perform initial evaluatio n of pt's status upon admission and devise an individualized program for Home Evaluation Need in caregiver upon discharge - to improve, our physical therapists will perform initial evaluatio n of pt's status upon admission and devise an individualized program for Caregiver Training New precaution - to improve, our physical therapists will perform initial evaluation of pt's status u uriel admission and devise an individualized program for Patient precaution education Edema - to improve, our physical therapists will perform initial evaluation of pt's status upon admis rhoda and devise an individualized program for Elevation Training, and Lymphedema Therapy Poor balance - to improve, our physical therapists will perform initial evaluation of pt's status up on admission and devise an individualized program for Balance Training Poor endurance - to improve, our physical therapists will perform initial evaluation of pt's status upon admission and devise an individualized program for Endurance Training Weakness - to improve, our physical therapists will perform initial evaluation of pt's status upon ad mission and devise an individualized program for Aquatic Therapy, Neuromuscular Reeducation, and Stre ngthening Achieving independence - to improve, our physical therapists will perform initial evaluation of pt's status upon admission and devise an individualized program for Community Reintegration Activities - Occupational Therapy Cognitive deficits - to improve, our occupation therapists will perform initial evaluation of pt's s tatus upon admission and devise an individualized program for Cognition - orientation Need for neonatal intensive care nurse - to improve, our occupation therapists will perform initial evaluation of pt's s tatus upon admission and devise an individualized program for Caregiver Training Weakness - to improve, our occupation therapists will perform initial evaluation of pt's status upon admission and devise an individualized program for Aquatic Therapy, Balance, Endurance, UE ROM, and U E strengthening - Other See attached MAR (Medication Administration Record) - Diet Type Regular - Diet - Liquid Texture Regular - Tube Feed N/A - Diet - Solid Texture Regular - Shower allowing shower FUNCTIONAL STATUS: UPDATED AT WEEKLY TEAM CONFERENCE - Bladder Same accident frequency: 7-Ind - No accidents in the past 7 days - Bowel Same accident frequency: 7-Ind - No accidents in the past 7 days - Walking Same score based on distance walked: 0(N/A) - Wheelchair Same score based on distance traveled: 0(N/A) FUNCTIONAL STATUS: - Self-Care A. Eating Maria E B. Grooming Anil C. Bathing maxA D. Dressing - Upper modA E. Dressing - Lower maxA F. Toileting maxA - Sphincter Control G. Bladder control Maria E H. Bowel control Maria E - Transfers Control I. Bed/Chair/Wheelchair maxA J. Toilet maxA K. Tub/Shower maxA - Locomotion L. Walk/Wheelchair (B) maxA M. Stairs ADNO - Communication N. Comprehension (B) Maria E O. Expression (B) Maria E - Social Cognition P. Social Interaction Maria E Q. Problem Solving Anil R. Memory Maria E - Endurance Fair - Balance Poor - Safety Awareness Poor QI SCORES: - Self-Care A. Eating 03-Partial/moderate assistance B. Oral hygiene 03-Partial/moderate assistance C. Toileting hygiene 02-Substantial/maximal assistance E. Shower/bathe self 02-Substantial/maximal assistance F. Upper body dressing 03-Partial/moderate assistance G. Lower body dressing 02-Substantial/maximal assistance H. Putting on/taking off footwear 88-Not attempted due to medical condition or safety concerns - Mobility A. Roll left and right 03-Partial/moderate assistance B. Sit to lying 03-Partial/moderate assistance C. Lying to sitting on side of bed 03-Partial/moderate assistance D. Sit to stand 03-Partial/moderate assistance E. Chair/bum-rp-wgser transfer 02-Substantial/maximal assistance F. Toilet transfer 02-Substantial/maximal assistance G. Car transfer 88-Not attempted due to medical condition or safety concerns I. Walk 10 feet 88-Not attempted due to medical condition or safety concerns J. Walk 50 feet with two turns 88-Not attempted due to medical condition or safety concerns K. Walk 150 feet 88-Not attempted due to medical condition or safety concerns L. Walking 10 feet on uneven surfaces 88-Not attempted due to medical condition or safety concerns M. 1 step (curb) 88-Not attempted due to medical condition or safety concerns N. 4 steps 88-Not attempted due to medical condition or safety concerns O. 12 steps 88-Not attempted due to medical condition or safety concerns P. Picking up object 88-Not attempted due to medical condition or safety concerns R. Wheel 50 feet with two turns 88-Not attempted due to medical condition or safety concerns S. Wheel 150 feet 88-Not attempted due to medical condition or safety concerns - Bladder and Bowel Bladder continence Bowel continence - Endurance Fair - Balance Fair - Safety Awareness Fair CURRENT [facility]. DEFICITS: Self-Care, Mobility, Endurance, Balance, and Safety Awareness SIGNATURE PANEL: (AGRONOMIST)
[2020-03-28] MEDS: METOPROLOL XL 25 MG TAB PO SCH ×2 (05:24→17:14)
[2020-03-28] MEDS: VALSARTAN 40 MG TAB PO SCH (08:00)
[2020-03-28] MEDS: FUROSEMIDE 20 MG TABLET PO SCH (08:00)
[2020-03-28] MEDS: APIXABAN 5 MG TABLET PO SCH (08:00)
[2020-03-28] MEDS: LIDOCAINE 4% PATCH TOP SCH (08:09)
[2020-03-28] MEDS: GABAPENTIN 300 MG CAP PO SCH ×2 (08:10→19:20)
[2020-03-28] MEDS: CITALOPRAM 10 MG TABLET PO SCH (08:10)
[2020-03-28] MEDS: MAGNESIUM OXIDE 400 MG TAB PO SCH ×2 (08:10→20:19)
[2020-03-28] MEDS: METFORMIN HCL 500 MG TAB PO SCH (08:10)
[2020-03-28] MEDS: ACETAMINOPHEN 500 MG TAB PO PRN ×2 (08:12→19:20)
[2020-03-28] MEDS: APIXABAN 2.5 MG TABLET PO SCH ×2 (08:42→19:20)
[2020-03-28] MEDS ORDERED: LIDOCAINE 4% PATCH TOP ONE (15:00)
[2020-03-28] MEDS: CRANBERRY FRUIT EXTRACT 200 MG CAP PO SCH (19:20)
[2020-03-28] MEDS: TAMSULOSIN 0.4 MG SR CAP PO SCH (20:18)
[2020-03-28] MEDS: ATORVASTATIN 10 MG TAB PO SCH (20:19)
[2020-03-28] MEDS: MELATONIN 3 MG TABLET PO PRN (20:20)
[2020-03-29] MEDS: METOPROLOL XL 25 MG TAB PO SCH ×2 (05:01→17:02)
[2020-03-29 06:26] LABS: Absolute Lymphocytes (CBC) 1.4 K/uL (0.7-4.9); Basophils % 0.7 % (0-1.3); MPV 8.4 fL (7.6-11.3); RBC Red Blood Cell Count 3.27 M/uL (4.33-5.43)
[2020-03-29 06:53] LABS: Albumin 3.1 g/dL (3.4-5.0); BUN Blood Urea Nitrogen 24 mg/dL (7-18); Bicarbonate 29 mmol/L (21-32); Glucose Level 95 mg/dL (74-106); Magnesium 2.4 mg/dL (1.8-2.4); Potassium 4.1 mmol/L (3.5-5.1); Prealbumin 18.8 mg/dL (20-40); Sodium Level 143 mmol/L (136-145)
[2020-03-29] MEDS: FUROSEMIDE 20 MG TABLET PO SCH (08:00)
[2020-03-29] MEDS: VALSARTAN 40 MG TAB PO SCH (08:00)
[2020-03-29] MEDS: GABAPENTIN 300 MG CAP PO SCH ×2 (08:52→19:20)
[2020-03-29] MEDS: CRANBERRY FRUIT EXTRACT 200 MG CAP PO SCH ×2 (08:53→19:20)
[2020-03-29] MEDS: MAGNESIUM OXIDE 400 MG TAB PO SCH ×2 (08:53→19:22)
[2020-03-29] MEDS: APIXABAN 2.5 MG TABLET PO SCH ×2 (08:53→19:20)
[2020-03-29] MEDS: CITALOPRAM 10 MG TABLET PO SCH (08:54)
[2020-03-29] MEDS: METFORMIN HCL 500 MG TAB PO SCH (08:55)
[2020-03-29] MEDS: ACETAMINOPHEN 500 MG TAB PO PRN ×2 (08:55→22:04)
[2020-03-29] MEDS: LIDOCAINE 4% PATCH TOP SCH (08:56)
[2020-03-29] MEDS: ATORVASTATIN 10 MG TAB PO SCH (19:21)
[2020-03-29] MEDS: TAMSULOSIN 0.4 MG SR CAP PO SCH (19:21)
[2020-03-29] MEDS: MELATONIN 3 MG TABLET PO PRN (22:04)
[2020-03-30] MEDS: METOPROLOL XL 25 MG TAB PO SCH ×2 (05:01→17:10)
[2020-03-30] MEDS: TRAMADOL HCL 50 MG TAB PO PRN ×2 (07:23→12:11)
[2020-03-30] MEDS: METFORMIN HCL 500 MG TAB PO SCH ×2 (07:53→07:54)
[2020-03-30] MEDS: GABAPENTIN 300 MG CAP PO SCH ×2 (07:54→18:53)
[2020-03-30] MEDS: CRANBERRY FRUIT EXTRACT 200 MG CAP PO SCH ×2 (07:54→18:53)
[2020-03-30] MEDS: CITALOPRAM 10 MG TABLET PO SCH (07:54)
[2020-03-30] MEDS: APIXABAN 2.5 MG TABLET PO SCH (07:54)
[2020-03-30] MEDS: VALSARTAN 40 MG TAB PO SCH (07:55)
[2020-03-30] MEDS: FUROSEMIDE 20 MG TABLET PO SCH (07:56)
[2020-03-30] MEDS: MAGNESIUM OXIDE 400 MG TAB PO SCH ×2 (07:58→18:54)
[2020-03-30] MEDS: LIDOCAINE 4% PATCH TOP SCH (09:32)
--- NOTE | 2020-03-30 09:58 | P.RH.PN ---
Estimated Length of Stay: 14 Expected Discharge Date: 04/05/20 Discharge Disposition Plan: Home Family Support: Yes Halfway Goal: Mobility, Transfers, Self Care Vital Signs: Last Vital Signs Temp 98.6 F 03/30/20 08:06 Pulse 72 03/30/20 08:06 Resp 16 03/30/20 08:06 BP 119/66 03/30/20 08:06 Pulse Ox 98 03/30/20 08:06 Laboratory: Laboratory Last Values WBC 6.30 K/uL (4.3-10.9) D 03/29/20 05:52 RBC 3.27 M/uL (4.33-5.43) L 03/29/20 05:52 Hgb 10.6 g/dL (13.6-17.9) L 03/29/20 05:52 Hct 31.0 % (39.6-49.0) L 03/29/20 05:52 MCV 94.9 fL (80-100) 03/29/20 05:52 MCH 32.3 pg (27.0-35.0) 03/29/20 05:52 MCHC 34.1 g/dL (32.0-36.0) 03/29/20 05:52 RDW 14.9 % (12.1-15.2) 03/29/20 05:52 Plt Count 277 K/uL (152-406) 03/29/20 05:52 MPV 8.4 fL (7.6-11.3) 03/29/20 05:52 Neutrophils % 63.8 % (41.7-73.7) 03/29/20 05:52 Lymphocytes % 22.0 % (15.3-44.8) 03/29/20 05:52 Monocytes % 9.0 % (3.3-12.3) 03/29/20 05:52 Eosinophils % 4.5 % (0-4.4) H 03/29/20 05:52 Basophils % 0.7 % (0-1.3) 03/29/20 05:52 Absolute Neutrophils 4.0 K/uL (1.8-8.0) 03/29/20 05:52 Absolute Lymphocytes 1.4 K/uL (0.7-4.9) 03/29/20 05:52 Absolute Monocytes 0.6 K/uL (0.1-1.3) 03/29/20 05:52 Absolute Eosinophils 0.3 K/uL (0-0.5) 03/29/20 05:52 Absolute Basophils 0.0 K/uL (0-0.5) 03/29/20 05:52 Sodium 143 mmol/L (136-145) 03/29/20 05:52 Potassium 4.1 mmol/L (3.5-5.1) 03/29/20 05:52 Chloride 108 mmol/L (98-107) H 03/29/20 05:52 Carbon Dioxide 29 mmol/L (21-32) 03/29/20 05:52 BUN 24 mg/dL (7-18) H 03/29/20 05:52 Creatinine 0.74 mg/dL (0.55-1.3) 03/29/20 05:52 Estimated GFR > 90 mL/min (=/>90) 03/29/20 05:52 Glucose 95 mg/dL (74-106) 03/29/20 05:52 POC Glucose 106 mg/dL (65-120) 03/30/20 07:48 Calcium 8.3 mg/dL (8.5-10.1) L 03/29/20 05:52 Magnesium 2.4 mg/dL (1.8-2.4) 03/29/20 05:52 Albumin 3.1 g/dL (3.4-5.0) L 03/29/20 05:52 Prealbumin 18.8 mg/dL (20-40) L 03/29/20 05:52 Urine Color Yellow 03/23/20 17:22 Urine Appearance Clear 03/23/20 17:22 Urine pH 6.5 (5.0-7.0) 03/23/20 17:22 Ur Specific [place] 1.020 (1.005-1.030) 03/23/20 17:22 Glucose (UA)(Auto) Negative (NEG) 03/23/20 17:22 Urine Ketones Negative (NEG) 03/23/20 17:22 Urine Blood Negative (NEG) 03/23/20 17:22 Urine Nitrite Negative (NEG) 03/23/20 17:22 Urine Bilirubin Negative (NEG) 03/23/20 17:22 Urine Urobilinogen 0.2 mg/dL (0.2-1.0) 02/12/21 17:22 Ur Leukocyte Esterase Negative (NEG) 03/23/20 17:22 Urine RBC <5 /HPF (NONE SEEN) 03/23/20 17:22 Urine WBC <5 /HPF (<5) 03/23/20 17:22 Ur Squamous Epith Cells <5 /HPF (NONE SEEN) 03/23/20 17:22 Urine Bacteria <20 /HPF (NONE SEEN) 03/23/20 17:22 Urine Culture Reflexed Not needed 03/23/20 17:22 Urine Total Protein Negative (NEG) 03/23/20 17:22 SARS-CoV-2 RNA (RT-PCR) Negative (NEGATIVE) 03/24/20 01:00 Weight: 196 lb 4.8 oz Wound Present: No Closed Surgical Incision Present: No Negative Pressure Wound Therapy Present: No Physician Update: Walking 150' with minumum assistance. Transfering with contact guard assistance. He is mildly depressed. He is easily distracted whild doing his therapy. Functional Improvement: pt has demonstrated consistent progress throguhout the week. his ambulation distance is improving as well as his functional performance during transfers. pt's pain in the L LE is reducing as well. pt continues to require skilled PT services to enhance functional performance and improve independence. Summary: Patient's care plan and termite control service representative goals have been reviewed and revised as necessary. Please see the Rehabilitation Signature page for all necessary signatures.
[2020-03-30] MEDS: APIXABAN 5 MG TABLET PO SCH (18:53)
[2020-03-30] MEDS: TAMSULOSIN 0.4 MG SR CAP PO SCH (18:53)
[2020-03-30] MEDS: ATORVASTATIN 10 MG TAB PO SCH (18:53)
[2020-03-30] MEDS ORDERED: ARIPiprazole 5 MG TAB PO SCH (21:00)
[2020-03-31] MEDS: TRAMADOL HCL 50 MG TAB PO PRN (03:28)
[2020-03-31 05:29] VITALS: BMI 31.1
[2020-03-31] MEDS: METOPROLOL XL 25 MG TAB PO SCH ×3 (05:30→17:31)
[2020-03-31] MEDS: VALSARTAN 40 MG TAB PO SCH (08:00)
[2020-03-31] MEDS: FUROSEMIDE 20 MG TABLET PO SCH (08:00)
[2020-03-31] MEDS: LIDOCAINE 4% PATCH TOP SCH (08:35)
[2020-03-31] MEDS: CITALOPRAM 10 MG TABLET PO SCH (08:36)
[2020-03-31] MEDS: GABAPENTIN 300 MG CAP PO SCH ×2 (08:36→19:29)
[2020-03-31] MEDS: CRANBERRY FRUIT EXTRACT 200 MG CAP PO SCH ×2 (08:37→19:29)
[2020-03-31] MEDS: MAGNESIUM OXIDE 400 MG TAB PO SCH ×2 (08:38→19:29)
[2020-03-31] MEDS: METFORMIN HCL 500 MG TAB PO SCH (08:38)
[2020-03-31] MEDS: APIXABAN 5 MG TABLET PO SCH ×2 (08:38→19:30)
[2020-03-31] MEDS: ACETAMINOPHEN 500 MG TAB PO PRN (08:39)
[2020-03-31] MEDS: DOCUSATE NA/SENNA CONC 1 TAB PO PRN (19:28)
[2020-03-31] MEDS: TAMSULOSIN 0.4 MG SR CAP PO SCH (19:29)
[2020-03-31] MEDS: ATORVASTATIN 10 MG TAB PO SCH (19:29)
[2020-03-31] MEDS: MELATONIN 3 MG TABLET PO PRN (19:30)
[2020-04-01] MEDS: METOPROLOL XL 25 MG TAB PO SCH ×2 (05:29→17:35)
[2020-04-01] MEDS: FUROSEMIDE 20 MG TABLET PO SCH (08:00)
[2020-04-01] MEDS: VALSARTAN 40 MG TAB PO SCH (08:00)
[2020-04-01] MEDS: CRANBERRY FRUIT EXTRACT 200 MG CAP PO SCH ×2 (08:44→20:02)
[2020-04-01] MEDS: GABAPENTIN 300 MG CAP PO SCH ×2 (08:45→20:03)
[2020-04-01] MEDS: APIXABAN 5 MG TABLET PO SCH ×2 (08:45→20:02)
[2020-04-01] MEDS: CITALOPRAM 10 MG TABLET PO SCH (08:45)
[2020-04-01] MEDS: MAGNESIUM OXIDE 400 MG TAB PO SCH ×2 (08:46→20:03)
[2020-04-01] MEDS: METFORMIN HCL 500 MG TAB PO SCH (08:46)
[2020-04-01] MEDS: LIDOCAINE 4% PATCH TOP SCH (08:49)
[2020-04-01] MEDS: ACETAMINOPHEN 500 MG TAB PO PRN (10:36)
[2020-04-01] MEDS: TAMSULOSIN 0.4 MG SR CAP PO SCH (20:03)
[2020-04-01] MEDS: MELATONIN 3 MG TABLET PO PRN (20:03)
[2020-04-01] MEDS: ATORVASTATIN 10 MG TAB PO SCH (20:03)
[2020-04-02] MEDS: METOPROLOL XL 25 MG TAB PO SCH ×2 (05:59→18:13)
[2020-04-02] MEDS: TRAMADOL HCL 50 MG TAB PO PRN ×2 (07:58→12:00)
[2020-04-02] MEDS: VALSARTAN 40 MG TAB PO SCH (07:59)
[2020-04-02] MEDS: METFORMIN HCL 500 MG TAB PO SCH (08:00)
[2020-04-02] MEDS: CRANBERRY FRUIT EXTRACT 200 MG CAP PO SCH ×2 (08:00→20:18)
[2020-04-02] MEDS: CITALOPRAM 10 MG TABLET PO SCH (08:00)
[2020-04-02] MEDS: MAGNESIUM OXIDE 400 MG TAB PO SCH ×2 (08:00→20:19)
[2020-04-02] MEDS: GABAPENTIN 300 MG CAP PO SCH ×2 (08:00→20:18)
[2020-04-02] MEDS: FUROSEMIDE 20 MG TABLET PO SCH (08:01)
[2020-04-02] MEDS: APIXABAN 5 MG TABLET PO SCH ×2 (08:01→20:18)
[2020-04-02] MEDS: LIDOCAINE 4% PATCH TOP SCH (09:04)
--- NOTE | 2020-04-02 15:45 | R.PN ---
PROGRESS NOTES ENCOUNTER DATE AND TIME: 04/02/2020 15:38 (ENDOCRINOLOGIST) NAME PRICE ROGERS DATE OF : 1940 DATE OF ADMISSION: 03/23/2020 17:58 (ENDOCRINOLOGIST) Left thigh hematoma, debility, A-FIB, FALLSCHIEF COMPLAINT: Debility and left thigh hematoma SUBJECTIVE: Pt denied any depression. Pt denied any Shortness of Breath. He reports mild pain in the left lateral thigh at the sight of the hematoma. Labs reviewed and are stable. Hgb 10.6. WBC 6.3, Undercollar Baster 0.74, prealbumin 18.8, glucose 91 to 118. Ambulated 250' with contact guard assistance using a single prong cane. Up and down 5 steps x 2 using right hand rails. VITAL SIGNS Temperature: 98.8 F SBP/DBP: 122/61 Pulse: 70 Resp: 16 MEDICATION ALLERGIES: No Known Drug Allergies (NKDA) ENVIRONMENTAL ALLERGIES: - Substance Allergies None Known - Other Allergies None Known NURSING: - Shower allowing shower ACTIVITIES OOB only with supervision THERAPIES: - Dietary and Nutrition Adequate Nutrition. Nutritional Education. Nutritional Supplements. PHYSICAL EXAM - Gen Alert and awake Lying in bed No apparent distress Oriented to: person, time, and place - Skin No skin breakdown. No abnormalities - Eyes No abnormalities - ENMT No abnormalities - Neck No abnormalities - CVS RRR - Chest No abnormalities - Resp Clear to auscultation - Abd Soft - GI nondistended Deferred - No abnormalities - Ext No significant edema - MSK 2-3+/5 weakness in left upper and lower extremity - Neuro 2-3+/5 weakness left upper and lower extremities. - Psych No abnormalities ASSESSMENT: Pt. is a 79 yo Right-handed male of unknown race.On 03/14/[address] [facility] with diagnosis Left thigh hematoma, debility, A-FIB, FALLS.His impairment category is Cardiac 09 - Cardiac Disorders (09).Pre-morbidly, Pt. was independent/mod-I in Balance, Social Cognition, Sphi ncter Control, Transfers Control, Locomotion, and Endurance; and he had good Self-Care and Sphincter Control.Currently, he has deficits of Locomotion, Safety Awareness, Social Cognition, Balance, Transf ers Control, Sphincter Control, and Endurance.Pt. is now referred to [facility] for acute in-patient rehabilitation in order to maximize patient's functional independence in activ ities of daily living, strength, ROM, and mobility.- Rehab Goal Patient has realistic goal of being discharged at assistance level 7-Ind to reside at Home with Fami ly/Relatives. MDM/PLAN: - Physical Therapy Gait dysfunction - to improve, our physical therapists will perform initial evaluation of pt's statu s upon admission and devise an individualized program for Gait Training, and Wheel Chair mobility Inability to transfer - to improve, our physical therapists will perform initial evaluation of pt's status upon admission and devise an individualized program for Bed mobility Need for home safety evaluation - to improve, our physical therapists will perform initial evaluatio n of pt's status upon admission and devise an individualized program for Home Evaluation Need in caregiver upon discharge - to improve, our physical therapists will perform initial evaluati on of pt's status upon admission and devise an individualized program for Caregiver Training New precaution - to improve, our physical therapists will perform initial evaluation of pt's status upon admission and devise an individualized program for Patient precaution education Edema - to improve, our physical therapists will perform initial evaluation of pt's status upon admi ssion and devise an individualized program for Elevation Training, and Lymphedema Therapy Poor balance - to improve, our physical therapists will perform initial evaluation of pt's status up on admission and devise an individualized program for Balance Training Poor endurance - to improve, our physical therapists will perform initial evaluation of pt's status upon admission and devise an individualized program for Endurance Training Weakness - to improve, our physical therapists will perform initial evaluation of pt's status upon a dmission and devise an individualized program for Aquatic Therapy, Neuromuscular Reeducation, and Str engthening Achieving independence - to improve, our physical therapists will perform initial evaluation of pt's status upon admission and devise an individualized program for Community Reintegration Activities - Occupational Therapy Cognitive deficits - to improve, our occupation therapists will perform initial evaluation of pt's s tatus upon admission and devise an individualized program for Cognition - orientation Need for vocational childcare teacher - to improve, our occupation therapists will perform initial evaluation of pt's status upon admission and devise an individualized program for Caregiver Training Weakness - to improve, our occupation therapists will perform initial evaluation of pt's status upon admission and devise an individualized program for Aquatic Therapy, Balance, Endurance, UE ROM, and UE strengthening - Other See attached MAR (Medication Administration Record) - Diet Type Start Regular - Diet - Liquid Texture Start Regular - Tube Feed Start N/A - Diet - Solid Texture Start Regular - Shower allowing shower FUNCTIONAL STATUS: UPDATED AT WEEKLY TEAM CONFERENCE - Bladder Same accident frequency: 7-Ind - No accidents in the past 7 days - Bowel Same accident frequency: 7-Ind - No accidents in the past 7 days - Walking Same score based on distance walked: 0(N/A) - Wheelchair Same score based on distance traveled: 0(N/A) FUNCTIONAL STATUS: - Self-Care A. Eating Maria E B. Grooming Anil C. Bathing maxA D. Dressing - Upper modA E. Dressing - Lower maxA F. Toileting maxA - Sphincter Control G. Bladder control Maria E H. Bowel control Maria E - Transfers Control I. Bed/Chair/Wheelchair maxA J. Toilet maxA K. Tub/Shower maxA - Locomotion L. Walk/Wheelchair (B) maxA M. Stairs ADNO - Communication N. Comprehension (B) Maria E O. Expression (B) Maria E - Social Cognition P. Social Interaction Maria E Q. Problem Solving Anil R. Memory Maria E - Endurance Fair - Balance Poor - Safety Awareness Poor QI SCORES: - Self-Care A. Eating 03-Partial/moderate assistance B. Oral hygiene 03-Partial/moderate assistance C. Toileting hygiene 02-Substantial/maximal assistance E. Shower/bathe self 02-Substantial/maximal assistance F. Upper body dressing 03-Partial/moderate assistance G. Lower body dressing 02-Substantial/maximal assistance H. Putting on/taking off footwear 88-Not attempted due to medical condition or safety concerns - Mobility A. Roll left and right 03-Partial/moderate assistance B. Sit to lying 03-Partial/moderate assistance C. Lying to sitting on side of bed 03-Partial/moderate assistance D. Sit to stand 03-Partial/moderate assistance E. Chair/[id number] transfer 02-Substantial/maximal assistance F. Toilet transfer 02-Substantial/maximal assistance G. Car transfer 88-Not attempted due to medical condition or safety concerns I. Walk 10 feet 88-Not attempted due to medical condition or safety concerns J. Walk 50 feet with two turns 88-Not attempted due to medical condition or safety concerns K. Walk 150 feet 88-Not attempted due to medical condition or safety concerns L. Walking 10 feet on uneven surfaces 88-Not attempted due to medical condition or safety concerns M. 1 step (curb) 88-Not attempted due to medical condition or safety concerns N. 4 steps 88-Not attempted due to medical condition or safety concerns O. 12 steps 88-Not attempted due to medical condition or safety concerns P. Picking up object 88-Not attempted due to medical condition or safety concerns R. Wheel 50 feet with two turns 88-Not attempted due to medical condition or safety concerns S. Wheel 150 feet 88-Not attempted due to medical condition or safety concerns - Bladder and Bowel Bladder continence Bowel continence - Endurance Fair - Balance Fair - Safety Awareness Fair CURRENT [facility]. DEFICITS: Self-Care, Mobility, Endurance, Balance, and Safety Awareness SIGNATURE PANEL: (ENDOCRINOLOGIST)
[2020-04-02] MEDS: DOCUSATE NA/SENNA CONC 1 TAB PO PRN (20:18)
[2020-04-02] MEDS: ATORVASTATIN 10 MG TAB PO SCH (20:18)
[2020-04-02] MEDS: TAMSULOSIN 0.4 MG SR CAP PO SCH (20:18)
[2020-04-02] MEDS: MELATONIN 3 MG TABLET PO PRN (20:19)
[2020-04-03] MEDS: METOPROLOL XL 25 MG TAB PO SCH ×2 (05:11→17:36)
[2020-04-03] MEDS: TRAMADOL HCL 50 MG TAB PO PRN ×2 (07:39→12:02)
[2020-04-03] MEDS: LIDOCAINE 4% PATCH TOP SCH (07:41)
[2020-04-03] MEDS: GABAPENTIN 300 MG CAP PO SCH ×2 (07:54→20:03)
[2020-04-03] MEDS: METFORMIN HCL 500 MG TAB PO SCH (07:54)
[2020-04-03] MEDS: APIXABAN 5 MG TABLET PO SCH ×2 (07:55→20:01)
[2020-04-03] MEDS: CRANBERRY FRUIT EXTRACT 200 MG CAP PO SCH ×2 (07:55→20:01)
[2020-04-03] MEDS: VALSARTAN 40 MG TAB PO SCH (07:55)
[2020-04-03] MEDS: CITALOPRAM 10 MG TABLET PO SCH (07:55)
[2020-04-03] MEDS: MAGNESIUM OXIDE 400 MG TAB PO SCH ×2 (07:55→20:01)
[2020-04-03] MEDS: FUROSEMIDE 20 MG TABLET PO SCH (07:56)
--- NOTE | 2020-04-03 18:22 | R.PN ---
PROGRESS NOTES ENCOUNTER DATE AND TIME: 04/03/2020 18:16 (YEAST FERMENTATION ATTENDANT) NAME PRICE ROGERS DATE OF : 1940 DATE OF ADMISSION: 03/23/2020 17:58 (YEAST FERMENTATION ATTENDANT) Left thigh hematoma, debility, A-FIB, FALLSCHIEF COMPLAINT: Debility and left thigh hematoma SUBJECTIVE: Pt denied any depression. Pt denied any Shortness of Breath. He reports mild pain in the left lateral thigh at the sight of the hematoma. Labs reviewed and are stable. Hgb 10.6. WBC 6.3, Lens Grinder Rough 0.74, prealbumin 18.8, glucose 93 to 118. Ambulated 150' with contact guard assistance using a single prong cane. Up and down 10 steps using [facility] hand rails. VITAL SIGNS Temperature: 97.0 F SBP/DBP: 111/68 Pulse: 71 Resp: 16 MEDICATION ALLERGIES: No Known Drug Allergies (NKDA) ENVIRONMENTAL ALLERGIES: - Substance Allergies None Known - Other Allergies None Known NURSING: - Shower allowing shower ACTIVITIES OOB only with supervision THERAPIES: - Dietary and Nutrition Adequate Nutrition. Nutritional Education. Nutritional Supplements. PHYSICAL EXAM - Gen Alert and awake Lying in bed No apparent distress Oriented to: person, time, and place - Skin No skin breakdown. No abnormalities - Eyes No abnormalities - ENMT No abnormalities - Neck No abnormalities - CVS RRR - Chest No abnormalities - Resp Clear to auscultation - Abd Soft - GI nondistended Deferred - No abnormalities - Ext No significant edema - MSK 2-3+/5 weakness in left upper and lower extremity - Neuro 2-3+/5 weakness left upper and lower extremities. - Psych No abnormalities ASSESSMENT: Pt. is a 79 yo Right-handed male of unknown race.On 03/14/2020 he was admitted to [facility] with diagnosis Left thigh hematoma, debility, A-FIB, FALLS.His impairment category is Cardiac 09 - Cardiac Disorders (09).Pre-morbidly, Pt. was independent/mod-I in Balance, Social Cognition, Sphi ncter Control, Transfers Control, Locomotion, and Endurance; and he had good Self-Care and Sphincter Control.Currently, he has deficits of Locomotion, Safety Awareness, Social Cognition, Balance, Transf ers Control, Sphincter Control, and Endurance.Pt. is now referred to [facility] for acute in-patient rehabilitation in order to maximize patient's functional independence in activ ities of daily living, strength, ROM, and mobility.- Rehab Goal Patient has realistic goal of being discharged at assistance level 7-Ind to reside at Home with Fami ly/Relatives. MDM/PLAN: - Physical Therapy Gait dysfunction - to improve, our physical therapists will perform initial evaluation of pt's statu s upon admission and devise an individualized program for Gait Training, and Wheel Chair mobility Inability to transfer - to improve, our physical therapists will perform initial evaluation of pt's status upon admission and devise an individualized program for Bed mobility Need for home safety evaluation - to improve, our physical therapists will perform initial evaluatio n of pt's status upon admission and devise an individualized program for Home Evaluation Need in caregiver upon discharge - to improve, our physical therapists will perform initial evaluati on of pt's status upon admission and devise an individualized program for Caregiver Training New precaution - to improve, our physical therapists will perform initial evaluation of pt's status upon admission and devise an individualized program for Patient precaution education Edema - to improve, our physical therapists will perform initial evaluation of pt's status upon admi ssion and devise an individualized program for Elevation Training, and Lymphedema Therapy Poor balance - to improve, our physical therapists will perform initial evaluation of pt's status up on admission and devise an individualized program for Balance Training Poor endurance - to improve, our physical therapists will perform initial evaluation of pt's status upon admission and devise an individualized program for Endurance Training Weakness - to improve, our physical therapists will perform initial evaluation of pt's status upon a dmission and devise an individualized program for Aquatic Therapy, Neuromuscular Reeducation, and Str engthening Achieving independence - to improve, our physical therapists will perform initial evaluation of pt's status upon admission and devise an individualized program for Community Reintegration Activities - Occupational Therapy Cognitive deficits - to improve, our occupation therapists will perform initial evaluation of pt's s tatus upon admission and devise an individualized program for Cognition - orientation Need for urgent care - to improve, our occupation therapists will perform initial evaluation of pt's status upon admission and devise an individualized program for Caregiver Training Weakness - to improve, our occupation therapists will perform initial evaluation of pt's status upon admission and devise an individualized program for Aquatic Therapy, Balance, Endurance, UE ROM, and UE strengthening - Other See attached MAR (Medication Administration Record) - Diet Type Continue Regular - Diet - Liquid Texture Continue Regular - Tube Feed Continue N/A - Diet - Solid Texture Continue Regular - Shower allowing shower FUNCTIONAL STATUS: UPDATED AT WEEKLY TEAM CONFERENCE - Bladder Same accident frequency: 7-Ind - No accidents in the past 7 days - Bowel Same accident frequency: 7-Ind - No accidents in the past 7 days - Walking Same score based on distance walked: 0(N/A) - Wheelchair Same score based on distance traveled: 0(N/A) FUNCTIONAL STATUS: - Self-Care A. Eating Maria E B. Grooming Anil C. Bathing maxA D. Dressing - Upper modA E. Dressing - Lower maxA F. Toileting maxA - Sphincter Control G. Bladder control Maria E H. Bowel control Maria E - Transfers Control I. Bed/Chair/Wheelchair maxA J. Toilet maxA K. Tub/Shower maxA - Locomotion L. Walk/Wheelchair (B) maxA M. Stairs ADNO - Communication N. Comprehension (B) Maria E O. Expression (B) Maria E - Social Cognition P. Social Interaction Maria E Q. Problem Solving Anil R. Memory Maria E - Endurance Fair - Balance Poor - Safety Awareness Poor QI SCORES: - Self-Care A. Eating 03-Partial/moderate assistance B. Oral hygiene 03-Partial/moderate assistance C. Toileting hygiene 02-Substantial/maximal assistance E. Shower/bathe self 02-Substantial/maximal assistance F. Upper body dressing 03-Partial/moderate assistance G. Lower body dressing 02-Substantial/maximal assistance H. Putting on/taking off footwear 88-Not attempted due to medical condition or safety concerns - Mobility A. Roll left and right 03-Partial/moderate assistance B. Sit to lying 03-Partial/moderate assistance C. Lying to sitting on side of bed 03-Partial/moderate assistance D. Sit to stand 03-Partial/moderate assistance E. Chair/czj-dw-qwwst transfer 02-Substantial/maximal assistance F. Toilet transfer 02-Substantial/maximal assistance G. Car transfer 88-Not attempted due to medical condition or safety concerns I. Walk 10 feet 88-Not attempted due to medical condition or safety concerns J. Walk 50 feet with two turns 88-Not attempted due to medical condition or safety concerns K. Walk 150 feet 88-Not attempted due to medical condition or safety concerns L. Walking 10 feet on uneven surfaces 88-Not attempted due to medical condition or safety concerns M. 1 step (curb) 88-Not attempted due to medical condition or safety concerns N. 4 steps 88-Not attempted due to medical condition or safety concerns O. 12 steps 88-Not attempted due to medical condition or safety concerns P. Picking up object 88-Not attempted due to medical condition or safety concerns R. Wheel 50 feet with two turns 88-Not attempted due to medical condition or safety concerns S. Wheel 150 feet 88-Not attempted due to medical condition or safety concerns - Bladder and Bowel Bladder continence Bowel continence - Endurance Fair - Balance Fair - Safety Awareness Fair CURRENT [facility]. DEFICITS: Self-Care, Mobility, Endurance, Balance, and Safety Awareness SIGNATURE PANEL: (YEAST FERMENTATION ATTENDANT)
[2020-04-03] MEDS: TAMSULOSIN 0.4 MG SR CAP PO SCH (20:01)
[2020-04-03] MEDS: ATORVASTATIN 10 MG TAB PO SCH (20:02)
[2020-04-03] MEDS: MELATONIN 3 MG TABLET PO PRN (20:04)
[2020-04-04] MEDS: TRAMADOL HCL 50 MG TAB PO PRN (03:13)
[2020-04-04] MEDS: METOPROLOL XL 25 MG TAB PO SCH ×2 (05:12→17:24)
[2020-04-04] MEDS: LIDOCAINE 4% PATCH TOP SCH (07:20)
[2020-04-04] MEDS: FUROSEMIDE 20 MG TABLET PO SCH (08:00)
[2020-04-04] MEDS: VALSARTAN 40 MG TAB PO SCH (08:00)
[2020-04-04] MEDS: CRANBERRY FRUIT EXTRACT 200 MG CAP PO SCH ×2 (08:38→19:14)
[2020-04-04] MEDS: CITALOPRAM 10 MG TABLET PO SCH (08:38)
[2020-04-04] MEDS: METFORMIN HCL 500 MG TAB PO SCH (08:39)
[2020-04-04] MEDS: ACETAMINOPHEN 500 MG TAB PO PRN ×2 (08:39→23:20)
[2020-04-04] MEDS: APIXABAN 5 MG TABLET PO SCH ×2 (08:39→19:14)
[2020-04-04] MEDS: MAGNESIUM OXIDE 400 MG TAB PO SCH ×2 (08:40→19:15)
[2020-04-04] MEDS: GABAPENTIN 300 MG CAP PO SCH ×2 (08:40→19:14)
--- NOTE | 2020-04-04 17:36 | R.PN ---
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 Pt denied any Shortness of Breath. He reports mild pain in the left lateral thigh at the sight of the hematoma. Labs reviewed and are stable. Hgb 10.6. WBC 6.3, Seed Yeast Operator 0.74, prealbumin 18.8, glucose 93 to 118. Ambulated 170' with contact guard assistance using a single prong cane. Up and down 5 steps using [employer] hand rails. VITAL SIGNS Temperature: 97.6 F SBP/DBP: 116/58 Pulse: 66 Resp: 16 MEDICATION ALLERGIES: No Known Drug Allergies (NKDA) ENVIRONMENTAL ALLERGIES: - Substance Allergies None Known - Other Allergies None Known NURSING: - Shower allowing shower ACTIVITIES OOB only with supervision THERAPIES: - Dietary and Nutrition Adequate Nutrition. Nutritional Education. Nutritional Supplements. PHYSICAL EXAM - Gen Alert and awake Lying in bed No apparent distress Oriented to: person, time, and place - Skin No skin breakdown. No abnormalities - Eyes No abnormalities - ENMT No abnormalities - Neck No abnormalities - CVS RRR - Chest No abnormalities - Resp Clear to auscultation - Abd Soft - GI nondistended Deferred - No abnormalities - Ext No significant edema - MSK 2-3+/5 weakness in left upper and lower extremity - Neuro 2-3+/5 weakness left upper and lower extremities. - Psych No abnormalities ASSESSMENT: Pt. is a 79 yo Right-handed male of unknown race.On 03/14/2020 he was admitted to [facility] with diagnosis Left thigh hematoma, debility, A-FIB, FALLS.His impairment category is Cardiac 09 - Cardiac Disorders (09).Pre-morbidly, Pt. was independent/mod-I in Balance, Social Cognition, Sphi ncter Control, Transfers Control, Locomotion, and Endurance; and he had good Self-Care and Sphincter Control.Currently, he has deficits of Locomotion, Safety Awareness, Social Cognition, Balance, Transf ers Control, Sphincter Control, and Endurance.Pt. is now referred to [facility] for acute in-patient rehabilitation in order to maximize patient's functional independence in activ ities of daily living, strength, ROM, and mobility.- Rehab Goal Patient has realistic goal of being discharged at assistance level 7-Ind to reside at Home with Fami ly/Relatives. MDM/PLAN: - Physical Therapy Gait dysfunction - to improve, our physical therapists will perform initial evaluation of pt's statu s upon admission and devise an individualized program for Gait Training, and Wheel Chair mobility Inability to transfer - to improve, our physical therapists will perform initial evaluation of pt's status upon admission and devise an individualized program for Bed mobility Need for home safety evaluation - to improve, our physical therapists will perform initial evaluatio n of pt's status upon admission and devise an individualized program for Home Evaluation Need in caregiver upon discharge - to improve, our physical therapists will perform initial evaluati on of pt's status upon admission and devise an individualized program for Caregiver Training New precaution - to improve, our physical therapists will perform initial evaluation of pt's status upon admission and devise an individualized program for Patient precaution education Edema - to improve, our physical therapists will perform initial evaluation of pt's status upon admi ssion and devise an individualized program for Elevation Training, and Lymphedema Therapy Poor balance - to improve, our physical therapists will perform initial evaluation of pt's status up on admission and devise an individualized program for Balance Training Poor endurance - to improve, our physical therapists will perform initial evaluation of pt's status upon admission and devise an individualized program for Endurance Training Weakness - to improve, our physical therapists will perform initial evaluation of pt's status upon a dmission and devise an individualized program for Aquatic Therapy, Neuromuscular Reeducation, and Str engthening Achieving independence - to improve, our physical therapists will perform initial evaluation of pt's status upon admission and devise an individualized program for Community Reintegration Activities - Occupational Therapy Cognitive deficits - to improve, our occupation therapists will perform initial evaluation of pt's s tatus upon admission and devise an individualized program for Cognition - orientation Need for nurse healthcare manager - to improve, our occupation therapists will perform initial evaluation of pt's status upon admission and devise an individualized program for Caregiver Training Weakness - to improve, our occupation therapists will perform initial evaluation of pt's status upon admission and devise an individualized program for Aquatic Therapy, Balance, Endurance, UE ROM, and UE strengthening - Other See attached MAR (Medication Administration Record) - Diet Type Continue Regular - Diet - Liquid Texture Continue Regular - Tube Feed Continue N/A - Diet - Solid Texture Continue Regular - Shower allowing shower FUNCTIONAL STATUS: UPDATED AT WEEKLY TEAM CONFERENCE - Bladder Same accident frequency: 7-Ind - No accidents in the past 7 days - Bowel Same accident frequency: 7-Ind - No accidents in the past 7 days - Walking Same score based on distance walked: 0(N/A) - Wheelchair Same score based on distance traveled: 0(N/A) FUNCTIONAL STATUS: - Self-Care A. Eating Maria E B. Grooming Anil C. Bathing maxA D. Dressing - Upper modA E. Dressing - Lower maxA F. Toileting maxA - Sphincter Control G. Bladder control Maria E H. Bowel control Maria E - Transfers Control I. Bed/Chair/Wheelchair maxA J. Toilet maxA K. Tub/Shower maxA - Locomotion L. Walk/Wheelchair (B) maxA M. Stairs ADNO - Communication N. Comprehension (B) Maria E O. Expression (B) Maria E - Social Cognition P. Social Interaction Maria E Q. Problem Solving Anil R. Memory Maria E - Endurance Fair - Balance Poor - Safety Awareness Poor QI SCORES: - Self-Care A. Eating 03-Partial/moderate assistance B. Oral hygiene 03-Partial/moderate assistance C. Toileting hygiene 02-Substantial/maximal assistance E. Shower/bathe self 02-Substantial/maximal assistance F. Upper body dressing 03-Partial/moderate assistance G. Lower body dressing 02-Substantial/maximal assistance H. Putting on/taking off footwear 88-Not attempted due to medical condition or safety concerns - Mobility A. Roll left and right 03-Partial/moderate assistance B. Sit to lying 03-Partial/moderate assistance C. Lying to sitting on side of bed 03-Partial/moderate assistance D. Sit to stand 03-Partial/moderate assistance E. Chair/[id number] transfer 02-Substantial/maximal assistance F. Toilet transfer 02-Substantial/maximal assistance G. Car transfer 88-Not attempted due to medical condition or safety concerns I. Walk 10 feet 88-Not attempted due to medical condition or safety concerns J. Walk 50 feet with two turns 88-Not attempted due to medical condition or safety concerns K. Walk 150 feet 88-Not attempted due to medical condition or safety concerns L. Walking 10 feet on uneven surfaces 88-Not attempted due to medical condition or safety concerns M. 1 step (curb) 88-Not attempted due to medical condition or safety concerns N. 4 steps 88-Not attempted due to medical condition or safety concerns O. 12 steps 88-Not attempted due to medical condition or safety concerns P. Picking up object 88-Not attempted due to medical condition or safety concerns R. Wheel 50 feet with two turns 88-Not attempted due to medical condition or safety concerns S. Wheel 150 feet 88-Not attempted due to medical condition or safety concerns - Bladder and Bowel Bladder continence Bowel continence - Endurance Fair - Balance Fair - Safety Awareness Fair CURRENT [facility]. 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
[2020-04-04] MEDS: TAMSULOSIN 0.4 MG SR CAP PO SCH (19:14)
[2020-04-04] MEDS: ATORVASTATIN 10 MG TAB PO SCH (19:14)
[2020-04-04] MEDS: MELATONIN 3 MG TABLET PO PRN (19:15)
[2020-04-05] MEDS: METOPROLOL XL 25 MG TAB PO SCH ×2 (05:45→17:36)
[2020-04-05 05:58] LABS: Absolute Lymphocytes (CBC) 1.5 K/uL (0.7-4.9); Basophils % 0.8 % (0-1.3); Hematocrit 31.6 % (39.6-49.0); Lymphocytes % 30.5 % (15.3-44.8); RBC Red Blood Cell Count 3.32 M/uL (4.33-5.43)
[2020-04-05 06:19] LABS: Albumin 3.3 g/dL (3.4-5.0); BUN Blood Urea Nitrogen 18 mg/dL (7-18); Bicarbonate 28 mmol/L (21-32); Glucose Level 93 mg/dL (74-106); Magnesium 2.4 mg/dL (1.8-2.4); Prealbumin 16.5 mg/dL (20-40); Sodium Level 139 mmol/L (136-145)
[2020-04-05] MEDS: VALSARTAN 40 MG TAB PO SCH (08:00)
[2020-04-05] MEDS: FUROSEMIDE 20 MG TABLET PO SCH (08:00)
[2020-04-05] MEDS: MAGNESIUM OXIDE 400 MG TAB PO SCH ×2 (08:20→19:22)
[2020-04-05] MEDS: CRANBERRY FRUIT EXTRACT 200 MG CAP PO SCH ×2 (08:20→19:22)
[2020-04-05] MEDS: CITALOPRAM 10 MG TABLET PO SCH (08:21)
[2020-04-05] MEDS: METFORMIN HCL 500 MG TAB PO SCH (08:21)
[2020-04-05] MEDS: APIXABAN 5 MG TABLET PO SCH ×2 (08:21→19:22)
[2020-04-05] MEDS: LIDOCAINE 4% PATCH TOP SCH (08:21)
[2020-04-05] MEDS: GABAPENTIN 300 MG CAP PO SCH ×2 (08:21→19:22)
[2020-04-05] MEDS: ACETAMINOPHEN 500 MG TAB PO PRN ×2 (08:22→14:59)
[2020-04-05] MEDS ORDERED: LOPERAMIDE HCL 2 MG CAPSULE PO PRN (09:56)
--- NOTE | 2020-04-05 17:28 | R.PN ---
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 Pt denied any Shortness of Breath. He reports mild pain in the left lateral thigh at the sight of the hematoma. Labs reviewed and are stable. Hgb 10.8. WBC 4.9, Placer Miner 0.74, prealbumin 16.5, glucose 92 to 105. Ambulated 200' with standby assistance using a single prong cane. Up and down 13 steps using right [address] rail and standby assistance. VITAL SIGNS Temperature: 97.6 F SBP/DBP: 104/66 Pulse: 71 Resp: 16 MEDICATION ALLERGIES: No Known Drug Allergies (NKDA) ENVIRONMENTAL ALLERGIES: - Substance Allergies None Known - Other Allergies None Known NURSING: - Shower allowing shower ACTIVITIES OOB only with supervision THERAPIES: - Dietary and Nutrition Adequate Nutrition. Nutritional Education. Nutritional Supplements. PHYSICAL EXAM - Gen Alert and awake Lying in bed No apparent distress Oriented to: person, time, and place - Skin No skin breakdown. No abnormalities - Eyes No abnormalities - ENMT No abnormalities - Neck No abnormalities - CVS RRR - Chest No abnormalities - Resp Clear to auscultation - Abd Soft - GI nondistended Deferred - No abnormalities - Ext No significant edema - MSK 2-3+/5 weakness in left upper and lower extremity - Neuro 2-3+/5 weakness left upper and lower extremities. - Psych No abnormalities ASSESSMENT: Pt. is a 79 yo Right-handed male of unknown race.On 03/14/2020 he was admitted to [facility] with diagnosis Left thigh hematoma, debility, A-FIB, FALLS.His impairment category is Cardiac 09 - Cardiac Disorders ().Pre-morbidly, Pt. was independent/mod-I in Balance, Social Cognition, Sphi ncter Control, Transfers Control, Locomotion, and Endurance; and he had good Self-Care and Sphincter Control.Currently, he has deficits of Locomotion, Safety Awareness, Social Cognition, Balance, Transf ers Control, Sphincter Control, and Endurance.Pt. is now referred to [facility] for acute in-patient rehabilitation in order to maximize patient's functional independence in activ ities of daily living, strength, ROM, and mobility.- Rehab Goal Patient has realistic goal of being discharged at assistance level 7-Ind to reside at Home with Fami ly/Relatives. MDM/PLAN: - Physical Therapy Gait dysfunction - to improve, our physical therapists will perform initial evaluation of pt's statu s upon admission and devise an individualized program for Gait Training, and Wheel Chair mobility Inability to transfer - to improve, our physical therapists will perform initial evaluation of pt's status upon admission and devise an individualized program for Bed mobility Need for home safety evaluation - to improve, our physical therapists will perform initial evaluatio n of pt's status upon admission and devise an individualized program for Home Evaluation Need in caregiver upon discharge - to improve, our physical therapists will perform initial evaluati on of pt's status upon admission and devise an individualized program for Caregiver Training New precaution - to improve, our physical therapists will perform initial evaluation of pt's status upon admission and devise an individualized program for Patient precaution education Edema - to improve, our physical therapists will perform initial evaluation of pt's status upon admi ssion and devise an individualized program for Elevation Training, and Lymphedema Therapy Poor balance - to improve, our physical therapists will perform initial evaluation of pt's status up on admission and devise an individualized program for Balance Training Poor endurance - to improve, our physical therapists will perform initial evaluation of pt's status upon admission and devise an individualized program for Endurance Training Weakness - to improve, our physical therapists will perform initial evaluation of pt's status upon a dmission and devise an individualized program for Aquatic Therapy, Neuromuscular Reeducation, and Str engthening Achieving independence - to improve, our physical therapists will perform initial evaluation of pt's status upon admission and devise an individualized program for Community Reintegration Activities - Occupational Therapy Cognitive deficits - to improve, our occupation therapists will perform initial evaluation of pt's s tatus upon admission and devise an individualized program for Cognition - orientation Need for family day care worker - to improve, our occupation therapists will perform initial evaluation of pt's status upon admission and devise an individualized program for Caregiver Training Weakness - to improve, our occupation therapists will perform initial evaluation of pt's status upon admission and devise an individualized program for Aquatic Therapy, Balance, Endurance, UE ROM, and UE strengthening - Other See attached MAR (Medication Administration Record) - Diet Type Continue Regular - Diet - Liquid Texture Continue Regular - Tube Feed Continue N/A - Diet - Solid Texture Continue Regular - Shower allowing shower FUNCTIONAL STATUS: UPDATED AT WEEKLY TEAM CONFERENCE - Bladder Same accident frequency: 7-Ind - No accidents in the past 7 days - Bowel Same accident frequency: 7-Ind - No accidents in the past 7 days - Walking Same score based on distance walked: 0(N/A) - Wheelchair Same score based on distance traveled: 0(N/A) FUNCTIONAL STATUS: - Self-Care A. Eating Maria E B. Grooming Anil C. Bathing maxA D. Dressing - Upper modA E. Dressing - Lower maxA F. Toileting maxA - Sphincter Control G. Bladder control Maria E H. Bowel control Maria E - Transfers Control I. Bed/Chair/Wheelchair maxA J. Toilet maxA K. Tub/Shower maxA - Locomotion L. Walk/Wheelchair (B) maxA M. Stairs ADNO - Communication N. Comprehension (B) Maria E O. Expression (B) Maria E - Social Cognition P. Social Interaction Maria E Q. Problem Solving Anil R. Memory Maria E - Endurance Fair - Balance Poor - Safety Awareness Poor QI SCORES: - Self-Care A. Eating 03-Partial/moderate assistance B. Oral hygiene 03-Partial/moderate assistance C. Toileting hygiene 02-Substantial/maximal assistance E. Shower/bathe self 02-Substantial/maximal assistance F. Upper body dressing 03-Partial/moderate assistance G. Lower body dressing 02-Substantial/maximal assistance H. Putting on/taking off footwear 88-Not attempted due to medical condition or safety concerns - Mobility A. Roll left and right 03-Partial/moderate assistance B. Sit to lying 03-Partial/moderate assistance C. Lying to sitting on side of bed 03-Partial/moderate assistance D. Sit to stand 03-Partial/moderate assistance E. Chair/[id number] transfer 02-Substantial/maximal assistance F. Toilet transfer 02-Substantial/maximal assistance G. Car transfer 88-Not attempted due to medical condition or safety concerns I. Walk 10 feet 88-Not attempted due to medical condition or safety concerns J. Walk 50 feet with two turns 88-Not attempted due to medical condition or safety concerns K. Walk 150 feet 88-Not attempted due to medical condition or safety concerns L. Walking 10 feet on uneven surfaces 88-Not attempted due to medical condition or safety concerns M. 1 step (curb) 88-Not attempted due to medical condition or safety concerns N. 4 steps 88-Not attempted due to medical condition or safety concerns O. 12 steps 88-Not attempted due to medical condition or safety concerns P. Picking up object 88-Not attempted due to medical condition or safety concerns R. Wheel 50 feet with two turns 88-Not attempted due to medical condition or safety concerns S. Wheel 150 feet 88-Not attempted due to medical condition or safety concerns - Bladder and Bowel Bladder continence Bowel continence - Endurance Fair - Balance Fair - Safety Awareness Fair CURRENT [facility]. 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
[2020-04-05] MEDS: TAMSULOSIN 0.4 MG SR CAP PO SCH (19:22)
[2020-04-05] MEDS: MELATONIN 3 MG TABLET PO PRN (19:23)
[2020-04-05] MEDS: ATORVASTATIN 10 MG TAB PO SCH (19:23)
[2020-04-06] MEDS: METOPROLOL XL 25 MG TAB PO SCH ×2 (05:09→17:01)
[2020-04-06] MEDS: TRAMADOL HCL 50 MG TAB PO PRN ×2 (06:56→12:06)
[2020-04-06] MEDS: LIDOCAINE 4% PATCH TOP SCH (06:59)
[2020-04-06] MEDS: VALSARTAN 40 MG TAB PO SCH (08:00)
[2020-04-06] MEDS: FUROSEMIDE 20 MG TABLET PO SCH (08:00)
[2020-04-06] MEDS: CITALOPRAM 10 MG TABLET PO SCH (08:05)
[2020-04-06] MEDS: APIXABAN 5 MG TABLET PO SCH ×2 (08:05→19:30)
[2020-04-06] MEDS: CRANBERRY FRUIT EXTRACT 200 MG CAP PO SCH ×2 (08:06→19:29)
[2020-04-06] MEDS: METFORMIN HCL 500 MG TAB PO SCH (08:06)
[2020-04-06] MEDS: GABAPENTIN 300 MG CAP PO SCH ×2 (08:07→19:29)
[2020-04-06] MEDS: MAGNESIUM OXIDE 400 MG TAB PO SCH ×2 (08:09→19:30)
--- NOTE | 2020-04-06 09:49 | P.RH.PN ---
Estimated Length of Stay: 19 Expected Discharge Date: 04/10/20 Discharge Disposition Plan: Home Family Support: Yes [facility]sp Goal: Mobility, Transfers, Self Care Vital Signs: Last Vital Signs Temp 98.1 F 04/06/20 07:04 Pulse 79 04/06/20 08:35 Resp 18 04/06/20 07:56 BP 102/76 04/06/20 08:35 Pulse Ox 97 04/06/20 07:56 Laboratory: Laboratory Last Values WBC 4.90 K/uL (4.3-10.9) D 04/05/20 05:23 RBC 3.32 M/uL (4.33-5.43) L 04/05/20 05:23 Hgb 10.8 g/dL (13.6-17.9) L 04/05/20 05:23 Hct 31.6 % (39.6-49.0) L 04/05/20 05:23 MCV 95.2 fL (80-100) 04/05/20 05:23 MCH 32.6 pg (27.0-35.0) 04/05/20 05:23 MCHC 34.3 g/dL (32.0-36.0) 04/05/20 05:23 RDW 15.1 % (12.1-15.2) 04/05/20 05:23 Plt Count 255 K/uL (152-406) 04/05/20 05:23 MPV 8.0 fL (7.6-11.3) 04/05/20 05:23 Neutrophils % 53.8 % (41.7-73.7) 04/05/20 05:23 Lymphocytes % 30.5 % (15.3-44.8) 04/05/20 05:23 Monocytes % 10.0 % (3.3-12.3) 04/05/20 05:23 Eosinophils % 4.9 % (0-4.4) H 04/05/20 05:23 Basophils % 0.8 % (0-1.3) 04/05/20 05:23 Absolute Neutrophils 2.7 K/uL (1.8-8.0) 04/05/20 05:23 Absolute Lymphocytes 1.5 K/uL (0.7-4.9) 04/05/20 05:23 Absolute Monocytes 0.5 K/uL (0.1-1.3) 04/05/20 05:23 Absolute Eosinophils 0.2 K/uL (0-0.5) 04/05/20 05:23 Absolute Basophils 0.0 K/uL (0-0.5) 04/05/20 05:23 Sodium 139 mmol/L (136-145) 04/05/20 05:38 Potassium 4.0 mmol/L (3.5-5.1) 04/05/20 05:38 Chloride 106 mmol/L (98-107) 04/05/20 05:38 Carbon Dioxide 28 mmol/L (21-32) 04/05/20 05:38 BUN 18 mg/dL (7-18) 04/05/20 05:38 Creatinine 0.72 mg/dL (0.55-1.3) 04/05/20 05:38 Estimated GFR > 90 mL/min (=/>90) 04/05/20 05:38 Glucose 93 mg/dL (74-106) 04/05/20 05:38 POC Glucose 108 mg/dL (65-120) 04/06/20 08:27 Calcium 8.3 mg/dL (8.5-10.1) L 04/05/20 05:38 Magnesium 2.4 mg/dL (1.8-2.4) 04/05/20 05:38 Albumin 3.3 g/dL (3.4-5.0) L 04/05/20 05:38 Prealbumin 16.5 mg/dL (20-40) L 04/05/20 05:38 Urine Color Yellow 03/23/20 17:22 Urine Appearance Clear 03/23/20 17:22 Urine pH 6.5 (5.0-7.0) 03/23/20 17:22 Ur Specific [place] 1.020 (1.005-1.030) 03/23/20 17:22 Glucose (UA)(Auto) Negative (NEG) 03/23/20 17:22 Urine Ketones Negative (NEG) 03/23/20 17:22 Urine Blood Negative (NEG) 03/23/20 17:22 Urine Nitrite Negative (NEG) 03/23/20 17:22 Urine Bilirubin Negative (NEG) 03/23/20 17:22 Urine Urobilinogen 0.2 mg/dL (0.2-1.0) 03/23/20 17:22 Ur Leukocyte Esterase Negative (NEG) 03/23/20 17:22 Urine RBC <5 /HPF (NONE SEEN) 03/23/20 17:22 Urine WBC <5 /HPF (<5) 03/23/20 17:22 Ur Squamous Epith Cells <5 /HPF (NONE SEEN) 03/23/20 17:22 Urine Bacteria <20 /HPF (NONE SEEN) 03/23/20 17:22 Urine Culture Reflexed Not needed 03/23/20 17:22 Urine Total Protein Negative (NEG) 03/23/20 17:22 SARS-CoV-2 RNA (RT-PCR) Negative (NEGATIVE) 03/24/20 01:00 Weight: 198 lb 8 oz Wound Present: No Closed Surgical Incision Present: No Negative Pressure Wound Therapy Present: No Physician Update: He is making fair overall progress with all therapy. However, he has no care givers since his cannot pay due to excessive debt and credit cards are over the limit. Will try to get him to a swing bed in [facility]. His labs are essentially normal. Functional Improvement: pt has demonstrated good progress throughout the week. pt is able to perform most functional mobility with close SBA and requires some steadying assist during functional transfers. pt is on track to meet his goals. Summary: Patient's care plan and penitentiary goals have been reviewed and revised as necessary. Please see the Rehabilitation Signature page for all necessary signatures.
[2020-04-06] MEDS: ATORVASTATIN 10 MG TAB PO SCH (19:29)
[2020-04-06] MEDS: TAMSULOSIN 0.4 MG SR CAP PO SCH (19:29)
[2020-04-07] MEDS: METOPROLOL XL 25 MG TAB PO SCH ×2 (05:09→16:34)
[2020-04-07] MEDS: VALSARTAN 40 MG TAB PO SCH (08:00)
[2020-04-07] MEDS: FUROSEMIDE 20 MG TABLET PO SCH (08:00)
[2020-04-07] MEDS: CRANBERRY FRUIT EXTRACT 200 MG CAP PO SCH ×2 (08:32→20:23)
[2020-04-07] MEDS: LIDOCAINE 4% PATCH TOP SCH (08:32)
[2020-04-07] MEDS: CITALOPRAM 10 MG TABLET PO SCH (08:33)
[2020-04-07] MEDS: METFORMIN HCL 500 MG TAB PO SCH (08:34)
[2020-04-07] MEDS: APIXABAN 5 MG TABLET PO SCH ×2 (08:34→20:25)
[2020-04-07] MEDS: MAGNESIUM OXIDE 400 MG TAB PO SCH ×2 (08:34→20:24)
[2020-04-07] MEDS: ACETAMINOPHEN 500 MG TAB PO PRN ×2 (08:36→15:04)
[2020-04-07] MEDS: GABAPENTIN 300 MG CAP PO SCH ×2 (08:37→20:00)
--- NOTE | 2020-04-07 15:44 | FAST ---
[employer] FORM SHIFT START DATE/TIME: 04/07/2020 07:00 (FOUR H AGENT) SHIFT END DATE/TIME: 04/07/2020 19:00 (FOUR H AGENT) NAME PRICE ROGERS DATE OF : 1940 DATE OF ADMISSION: 03/23/2020 17:58 (FOUR H AGENT) PHONE: AGE: 79 SSN# [id number] GENDER: Male ENCOUNTER PHYSICIAN: Dr. Abdirahman Zepeda M.D. ADMISSION DIAGNOSIS: - Cardiac 09 - Cardiac Disorders () Left thigh hematoma, debility, A-FIB, FALLS. EATING: EATING - STEP 1: Does the patient complete the activity by him/herself with no assistance (physical, verbal/nonverbal cueing, setup/clean-up)? No. EATING - STEP 2: Does the patient need only setup/clean-up assistance from one helper? Yes. 1. [id number] ADMISSION PERFORMANCE: Setup or clean-up assistance CODE: 05 ORAL HYGIENE: ORAL HYGIENE - STEP 1: Does the patient complete the activity by him/herself with no assistance (physical, verbal/nonverbal cueing, setup/clean-up)? No. ORAL HYGIENE - STEP 2: Does the patient need only setup/clean-up assistance from one helper? Yes. 1. [id number] ADMISSION PERFORMANCE: Setup or clean-up assistance CODE: 05 TOILETING HYGIENE: TOILETING HYGIENE - STEP 1: Does the patient complete the activity by him/herself with no assistance (physical, verbal/nonverbal cueing, setup/clean-up)? No. TOILETING HYGIENE - STEP 2: Does the patient need only setup/clean-up assistance from one helper? No. TOILETING HYGIENE - STEP 3: Does the patient need only verbal/nonverbal cueing or touching/steadying/contact guard assistance fro m one helper? Yes. 1. [id number] ADMISSION PERFORMANCE: Supervision or touching assistance CODE: 04 BATHING: Not assessed/no information CODE: - DRESSING - UPPER BODY: DRESSING - UPPER BODY - STEP 1: Does the patient complete the activity by him/herself with no assistance (physical, verbal/nonverbal cueing, setup/clean-up)? No. DRESSING - UPPER BODY - STEP 2: Does the patient need only setup/clean-up assistance from one helper? No. DRESSING - UPPER BODY - STEP 3: Does the patient need only verbal/nonverbal cueing or touching/steadying/contact guard assistance fro m one helper? Yes. 1. [id number] ADMISSION PERFORMANCE: Supervision or touching assistance CODE: 04 DRESSING - LOWER BODY: DRESSING - LOWER BODY - STEP 1: Does the patient complete the activity by him/herself with no assistance (physical, verbal/nonverbal cueing, setup/clean-up)? No. DRESSING - LOWER BODY - STEP 2: Does the patient need only setup/clean-up assistance from one helper? No. DRESSING - LOWER BODY - STEP 3: Does the patient need only verbal/nonverbal cueing or touching/steadying/contact guard assistance fro m one helper? Yes. 1. [id number] ADMISSION PERFORMANCE: Supervision or touching assistance CODE: 04 PUTTING ON/TAKING OFF FOOTWEAR: FOOTWEAR - STEP 1: Does the patient complete the activity by him/herself with no assistance (physical, verbal/nonverbal cueing, setup/clean-up)? No. FOOTWEAR - STEP 2: Does the patient need only setup/clean-up assistance from one helper? No. FOOTWEAR - STEP 3: Does the patient need only verbal/nonverbal cueing or touching/steadying/contact guard assistance fro m one helper? No. FOOTWEAR - STEP 4: Does the patient need physical assistance - for example lifting or trunk support from one helper - wi th the helper providing less than half of the effort? No. FOOTWEAR - STEP 5: Does the patient need physical assistance - for example lifting or trunk support from one helper - wi th the helper providing more than half of the effort? Yes. 1. [id number] ADMISSION PERFORMANCE: Substantial/maximal assistance CODE: 02 ROLL LEFT AND RIGHT: ROLL LEFT AND RIGHT - STEP 1: Does the patient complete the activity by him/herself with no assistance (physical, verbal/nonverbal cueing, setup/clean-up)? No. ROLL LEFT AND RIGHT - STEP 2: Does the patient need only setup/clean-up assistance from one helper? No. ROLL LEFT AND RIGHT - STEP 3: Does the patient need only verbal/nonverbal cueing or touching/steadying/contact guard assistance fro m one helper? Yes. 1. [id number] ADMISSION PERFORMANCE: Supervision or touching assistance CODE: 04 SIT TO LYING: SIT TO LYING - STEP 1: Does the patient complete the activity by him/herself with no assistance (physical, verbal/nonverbal cueing, setup/clean-up)? No. SIT TO LYING - STEP 2: Does the patient need only setup/clean-up assistance from one helper? No. SIT TO LYING - STEP 3: Does the patient need only verbal/nonverbal cueing or touching/steadying/contact guard assistance fro m one helper? Yes. 1. [id number] ADMISSION PERFORMANCE: Supervision or touching assistance CODE: 04 LYING TO SITTING: LYING TO SITTING ON SIDE OF BED - STEP 1: Does the patient complete the activity by him/herself with no assistance (physical, verbal/nonverbal cueing, setup/clean-up)? No. LYING TO SITTING ON SIDE OF BED - STEP 2: Does the patient need only setup/clean-up assistance from one helper? No. LYING TO SITTING ON SIDE OF BED - STEP 3: Does the patient need only verbal/nonverbal cueing or touching/steadying/contact guard assistance fro m one helper? Yes. 1. [id number] ADMISSION PERFORMANCE: Supervision or touching assistance CODE: 04 SIT TO STAND: SIT TO STAND - STEP 1: Does the patient complete the activity by him/herself with no assistance (physical, verbal/nonverbal cueing, setup/clean-up)? No. SIT TO STAND - STEP 2: Does the patient need only setup/clean-up assistance from one helper? No. SIT TO STAND - STEP 3: Does the patient need only verbal/nonverbal cueing or touching/steadying/contact guard assistance fro m one helper? Yes. 1. [id number] ADMISSION PERFORMANCE: Supervision or touching assistance CODE: 04 TRANSFERS: BED, CHAIR: CHAIR/[id number] TRANSFER - STEP 1: Does the patient complete the activity by him/herself with no assistance (physical, verbal/nonverbal cueing, setup/clean-up)? No. CHAIR/[id number] TRANSFER - STEP 2: Does the patient need only setup/clean-up assistance from one helper? No. CHAIR/[id number] TRANSFER - STEP 3: Does the patient need only verbal/nonverbal cueing or touching/steadying/contact guard assistance fro m one helper? Yes. 1. [id number] ADMISSION PERFORMANCE: Supervision or touching assistance CODE: 04 TRANSFER TOILET: TOILET TRANSFER - STEP 1: Does the patient complete the activity by him/herself with no assistance (physical, verbal/nonverbal cueing, setup/clean-up)? No. TOILET TRANSFER - STEP 2: Does the patient need only setup/clean-up assistance from one helper? No. TOILET TRANSFER - STEP 3: Does the patient need only verbal/nonverbal cueing or touching/steadying/contact guard assistance fro m one helper? Yes. 1. [id number] ADMISSION PERFORMANCE: Supervision or touching assistance CODE: 04 TRANSFERS: CAR: CAR TRANSFER - STEP 1: Does the patient complete the activity by him/herself with no assistance (physical, verbal/nonverbal cueing, setup/clean-up)? No. CAR TRANSFER - STEP 2: Does the patient need only setup/clean-up assistance from one helper? No. CAR TRANSFER - STEP 3: Does the patient need only verbal/nonverbal cueing or touching/steadying/contact guard assistance fro m one helper? Yes. 1. [id number] ADMISSION PERFORMANCE: Supervision or touching assistance CODE: 04 WALK 10 FEET: Not assessed/no information CODE: - 1 STEP (CURB): Not assessed/no information CODE: - PICKING UP OBJECT: Not assessed/no information CODE: - DOES THE PATIENT USE A WHEELCHAIR/SCOOTER? Q1. DOES THE PATIENT USE A WHEELCHAIR/SCOOTER?: Yes CODE: 1 WHEEL 50 FEET WITH TWO TURNS: WHEEL 50 FEET WITH TWO TURNS - STEP 1: Does the patient complete the activity by him/herself with no assistance (physical, verbal/nonverbal cueing, setup/clean-up)? No. WHEEL 50 FEET WITH TWO TURNS - STEP 2: Does the patient need only setup/clean-up assistance from one helper? Yes. 1. [id number] ADMISSION PERFORMANCE: Setup or clean-up assistance CODE: 05 INDICATE THE TYPE OF WHEELCHAIR/SCOOTER USED: RR1. INDICATE THE TYPE OF WHEELCHAIR/SCOOTER USED.: Manual CODE: 1 WHEEL 150 FEET: WHEEL 150 FEET - STEP 1: Does the patient complete the activity by him/herself with no assistance (physical, verbal/nonverbal cueing, setup/clean-up)? No. WHEEL 150 FEET - STEP 2: Does the patient need only setup/clean-up assistance from one helper? No. WHEEL 150 FEET - STEP 3: Does the patient need only verbal/nonverbal cueing or touching/steadying/contact guard assistance fro m one helper? Yes. 1. [id number] ADMISSION PERFORMANCE: Supervision or touching assistance CODE: 04 INDICATE THE TYPE OF WHEELCHAIR/SCOOTER USED: SS1. INDICATE THE TYPE OF WHEELCHAIR/SCOOTER USED.: Manual CODE: 1 BLADDER AND BOWEL: H350. BLADDER CONTINENCE (3-DAY ASSESSMENT PERIOD): Always continent (no documented incontinence) CODE: 0 H400. BOWEL CONTINENCE (3-DAY ASSESSMENT PERIOD): Always continent CODE: 0 SIGNATURE PANEL: The following modified sections: 1. [id number] Admission Performance, 1. [id number] Admission Performance, 1. WS9944X Admission Performance, 1. WN8586c Admission Performance, 1. FO2152h Admission Performance, 1. ZW4269z Admission Performance, 1. AF1083U Admission Performance, 1. [id number] Admission Performance , 1. MM2337A Admission Performance, 1. OS4413B Admission Performance, 1. [id number] Admission Performanc e, 1. [id number] Admission Performance, 1. [id number] Admission Performance, Q1. Does the patient use a whe elchair/scooter?, 1. TH3120L Admission Performance, RR1. Indicate the type of wheelchair/scooter used ., 1. [id number] Admission Performance, Code, 1. BO5929A Admission Performance, Code, SS1. Indicate the type of wheelchair/scooter used., H350. Bladder Continence (3-day assessment period), H400. Bowel Con tinence (3-day assessment period) were [electronically] signed by Vinay NelsonNSin on Sat Apr 07 2020 15:43:10 GMT-0600 (Central Standard Time)
[2020-04-07] MEDS: TRAMADOL HCL 50 MG TAB PO PRN (18:28)
[2020-04-07] MEDS: ATORVASTATIN 10 MG TAB PO SCH (20:24)
[2020-04-07] MEDS: TAMSULOSIN 0.4 MG SR CAP PO SCH (20:25)
[2020-04-07] MEDS: MELATONIN 3 MG TABLET PO PRN (22:30)
[2020-04-08] MEDS: METOPROLOL XL 25 MG TAB PO SCH ×2 (05:40→17:08)
[2020-04-08] MEDS: VALSARTAN 40 MG TAB PO SCH (08:00)
[2020-04-08] MEDS: FUROSEMIDE 20 MG TABLET PO SCH (08:00)
[2020-04-08] MEDS: CRANBERRY FRUIT EXTRACT 200 MG CAP PO SCH ×2 (08:26→20:09)
[2020-04-08] MEDS: LIDOCAINE 4% PATCH TOP SCH (08:26)
[2020-04-08] MEDS: GABAPENTIN 300 MG CAP PO SCH ×2 (08:26→20:00)
[2020-04-08] MEDS: CITALOPRAM 10 MG TABLET PO SCH (08:27)
[2020-04-08] MEDS: MAGNESIUM OXIDE 400 MG TAB PO SCH ×2 (08:28→20:10)
[2020-04-08] MEDS: METFORMIN HCL 500 MG TAB PO SCH (08:28)
[2020-04-08] MEDS: APIXABAN 5 MG TABLET PO SCH ×2 (08:28→20:09)
[2020-04-08] MEDS: TAMSULOSIN 0.4 MG SR CAP PO SCH (20:09)
[2020-04-08] MEDS: MELATONIN 3 MG TABLET PO PRN (20:10)
[2020-04-08] MEDS: ATORVASTATIN 10 MG TAB PO SCH (20:10)
[2020-04-09] MEDS: METOPROLOL XL 25 MG TAB PO SCH (05:29)
[2020-04-09 07:45] VITALS: TEMP 97.5
[2020-04-09] MEDS: CITALOPRAM 10 MG TABLET PO SCH (08:03)
[2020-04-09] MEDS: VALSARTAN 40 MG TAB PO SCH (08:03)
[2020-04-09] MEDS: APIXABAN 5 MG TABLET PO SCH (08:03)
[2020-04-09] MEDS: CRANBERRY FRUIT EXTRACT 200 MG CAP PO SCH (08:04)
[2020-04-09] MEDS: FUROSEMIDE 20 MG TABLET PO SCH (08:04)
[2020-04-09] MEDS: METFORMIN HCL 500 MG TAB PO SCH (08:04)
[2020-04-09] MEDS: MAGNESIUM OXIDE 400 MG TAB PO SCH (08:05)
[2020-04-09] MEDS: GABAPENTIN 300 MG CAP PO SCH (08:06)
[2020-04-09] MEDS: TRAMADOL HCL 50 MG TAB PO PRN ×2 (08:25→11:55)
[2020-04-09] MEDS: LIDOCAINE 4% PATCH TOP SCH (08:32)
[2020-04-09 13:16] VITALS: BP 108/53
--- NOTE | 2020-04-09 18:50 | R.PN ---
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 Pt denied any Shortness of Breath. He reports mild pain in the left lateral thigh at the sight of the hematoma. Labs reviewed and are stable. Hgb 10.8. WBC 4.9, Senior Category Manager 0.74, prealbumin 16.5, glucose 94 to 103. Ambulated 250' with standby assistance using a single prong cane. Up and down 15 steps using right [address] rail and standby assistance. He will be discharged to assisted living today. VITAL SIGNS Temperature: 97.5 F SBP/DBP: 108/53 Pulse: 59 Resp: 16 MEDICATION ALLERGIES: No Known Drug Allergies (NKDA) ENVIRONMENTAL ALLERGIES: - Substance Allergies None Known - Other Allergies None Known NURSING: - Shower allowing shower ACTIVITIES OOB only with supervision THERAPIES: - Dietary and Nutrition Adequate Nutrition. Nutritional Education. Nutritional Supplements. PHYSICAL EXAM - Gen Alert and awake Lying in bed No apparent distress Oriented to: person, time, and place - Skin No skin breakdown. No abnormalities - Eyes No abnormalities - ENMT No abnormalities - Neck No abnormalities - CVS RRR - Chest No abnormalities - Resp Clear to auscultation - Abd Soft - GI nondistended Deferred - No abnormalities - Ext No significant edema - MSK 2-3+/5 weakness in left upper and lower extremity - Neuro 2-3+/5 weakness left upper and lower extremities. - Psych No abnormalities ASSESSMENT: Pt. is a 79 yo Right-handed male of unknown race.On 03/14/2020 he was admitted to [facility] with diagnosis Left thigh hematoma, debility, A-FIB, FALLS.His impairment category is Cardiac 09 - Cardiac Disorders (09).Pre-morbidly, Pt. was independent/mod-I in Balance, Social Cognition, Sphi ncter Control, Transfers Control, Locomotion, and Endurance; and he had good Self-Care and Sphincter Control.Currently, he has deficits of Locomotion, Safety Awareness, Social Cognition, Balance, Transf ers Control, Sphincter Control, and Endurance.Pt. is now referred to [facility] for acute in-patient rehabilitation in order to maximize patient's functional independence in activ ities of daily living, strength, ROM, and mobility.- Rehab Goal Patient has realistic goal of being discharged at assistance level 7-Ind to reside at Home with Fami ly/Relatives. MDM/PLAN: - Physical Therapy Gait dysfunction - to improve, our physical therapists will perform initial evaluation of pt's statu s upon admission and devise an individualized program for Gait Training, and Wheel Chair mobility Inability to transfer - to improve, our physical therapists will perform initial evaluation of pt's status upon admission and devise an individualized program for Bed mobility Need for home safety evaluation - to improve, our physical therapists will perform initial evaluatio n of pt's status upon admission and devise an individualized program for Home Evaluation Need in caregiver upon discharge - to improve, our physical therapists will perform initial evaluati on of pt's status upon admission and devise an individualized program for Caregiver Training New precaution - to improve, our physical therapists will perform initial evaluation of pt's status upon admission and devise an individualized program for Patient precaution education Edema - to improve, our physical therapists will perform initial evaluation of pt's status upon admi ssion and devise an individualized program for Elevation Training, and Lymphedema Therapy Poor balance - to improve, our physical therapists will perform initial evaluation of pt's status up on admission and devise an individualized program for Balance Training Poor endurance - to improve, our physical therapists will perform initial evaluation of pt's status upon admission and devise an individualized program for Endurance Training Weakness - to improve, our physical therapists will perform initial evaluation of pt's status upon a dmission and devise an individualized program for Aquatic Therapy, Neuromuscular Reeducation, and Str engthening Achieving independence - to improve, our physical therapists will perform initial evaluation of pt's status upon admission and devise an individualized program for Community Reintegration Activities - Occupational Therapy Cognitive deficits - to improve, our occupation therapists will perform initial evaluation of pt's s tatus upon admission and devise an individualized program for Cognition - orientation Need for coronary care unit nurse - to improve, our occupation therapists will perform initial evaluation of pt's status upon admission and devise an individualized program for Caregiver Training Weakness - to improve, our occupation therapists will perform initial evaluation of pt's status upon admission and devise an individualized program for Aquatic Therapy, Balance, Endurance, UE ROM, and UE strengthening - Other See attached MAR (Medication Administration Record) - Diet Type Continue Regular - Diet - Liquid Texture Continue Regular - Tube Feed Continue N/A - Diet - Solid Texture Continue Regular - Shower allowing shower FUNCTIONAL STATUS: UPDATED AT WEEKLY TEAM CONFERENCE - Bladder Same accident frequency: 7-Ind - No accidents in the past 7 days - Bowel Same accident frequency: 7-Ind - No accidents in the past 7 days - Walking Same score based on distance walked: 0(N/A) - Wheelchair Same score based on distance traveled: 0(N/A) FUNCTIONAL STATUS: - Self-Care A. Eating Maria E B. Grooming Anil C. Bathing maxA D. Dressing - Upper modA E. Dressing - Lower maxA F. Toileting maxA - Sphincter Control G. Bladder control Maria E H. Bowel control Maria E - Transfers Control I. Bed/Chair/Wheelchair maxA J. Toilet maxA K. Tub/Shower maxA - Locomotion L. Walk/Wheelchair (B) maxA M. Stairs ADNO - Communication N. Comprehension (B) Maria E O. Expression (B) Maria E - Social Cognition P. Social Interaction Maria E Q. Problem Solving Anil R. Memory Maria E - Endurance Fair - Balance Poor - Safety Awareness Poor QI SCORES: - Self-Care A. Eating 03-Partial/moderate assistance B. Oral hygiene 03-Partial/moderate assistance C. Toileting hygiene 02-Substantial/maximal assistance E. Shower/bathe self 02-Substantial/maximal assistance F. Upper body dressing 03-Partial/moderate assistance G. Lower body dressing 02-Substantial/maximal assistance H. Putting on/taking off footwear 88-Not attempted due to medical condition or safety concerns - Mobility A. Roll left and right 03-Partial/moderate assistance B. Sit to lying 03-Partial/moderate assistance C. Lying to sitting on side of bed 03-Partial/moderate assistance D. Sit to stand 03-Partial/moderate assistance E. Chair/sbo-ln-lqwsy transfer 02-Substantial/maximal assistance F. Toilet transfer 02-Substantial/maximal assistance G. Car transfer 88-Not attempted due to medical condition or safety concerns I. Walk 10 feet 88-Not attempted due to medical condition or safety concerns J. Walk 50 feet with two turns 88-Not attempted due to medical condition or safety concerns K. Walk 150 feet 88-Not attempted due to medical condition or safety concerns L. Walking 10 feet on uneven surfaces 88-Not attempted due to medical condition or safety concerns M. 1 step (curb) 88-Not attempted due to medical condition or safety concerns N. 4 steps 88-Not attempted due to medical condition or safety concerns O. 12 steps 88-Not attempted due to medical condition or safety concerns P. Picking up object 88-Not attempted due to medical condition or safety concerns R. Wheel 50 feet with two turns 88-Not attempted due to medical condition or safety concerns S. Wheel 150 feet 88-Not attempted due to medical condition or safety concerns - Bladder and Bowel Bladder continence Bowel continence - Endurance Fair - Balance Fair - Safety Awareness Fair [facility] DEFICITS: Self-Care, Mobility, Endurance, Balance, and Safety Awareness SIGNATURE PANEL: ([employer]PERATIONS MANAGER)
--- NOTE | 2020-04-13 18:33 | R.DS ---
DISCHARGE SUMMARY FACILITY [facility] MR# [id number] NAME PRICE ROGERS ADDRESS [address] [place] [address] [address]IP [id number] PHONE DATE OF 1940 AGE 79 SSN# [id number] GENDER Male DEXTERITY Right-handed MARITAL STATUS RACE Unknown race ENCOUNTER PHYSICIAN Dr. Abdirahman Zepeda M.D. REFERRING DOCTOR DR PILLAI REFERRING FACILITY [facility] DISCHARGE DIAGNOSIS: - Cardiac 09 - Cardiac Disorders () Left thigh hematoma, debility, A-FIB, FALLS. DATE OF ADMISSION 03/23/2020 17:58 (TRACK WELDER) MEDICATION ALLERGIES: No Known Drug Allergies (NKDA) ENVIRONMENTAL ALLERGIES: - Substance Allergies None Known - Other Allergies None Known DISCHARGE MEDICATIONS: Other- ContinueSee attached MAR (Medication Administration Record). NURSING: - Shower allowing shower ACTIVITIES OOB only with supervision THERAPIES: - Dietary and Nutrition Adequate Nutrition Nutritional Education Nutritional Supplements HISTORY OF PRESENT ILLNESS: Pt. is a 79 yo Right-handed male of unknown race.On 03/14/[address] [facility] with diagnosis A-FIB, FALLS.His impairment category is Cardiac 09 - Cardiac Disorders ().Pre- morbidly, Pt. was independent/mod-I in Balance, Social Cognition, Sphincter Control, Transfers Contro l, Locomotion, and Endurance; and he had good Self-Care and Sphincter Control.Currently, he has defic its of Locomotion, Safety Awareness, Social Cognition, Balance, Transfers Control, Sphincter Control, and Endurance.Pt. is now referred to [facility] for acute in-patient rehabili tation in order to maximize patient's functional independence in activities of daily living, strength , ROM, and mobility.- Rehab Goal Patient has realistic goal of being discharged at assistance level 7-Ind to reside at Home with Fami ly/Relatives. DIET - LIQUID TEXTURE: On 03/23/2020 Pt was upgraded to Regular Diet - Liquid Texture. DIET - SOLID TEXTURE: On 03/23/2020 Pt was upgraded to Regular Diet - Solid Texture. DIET TYPE: On 03/23/2020 Pt was upgraded to Regular Diet Type. TUBE FEED: On 03/23/2020 Pt was changed to N/A Tube Feed. DISCHARGE PHYSICAL EXAM - Gen Alert and awake Lying in bed No apparent distress Oriented to: person, time, and place - Skin No skin breakdown. No abnormalities - Eyes No abnormalities - ENMT No abnormalities - Neck No abnormalities - CVS RRR - Chest No abnormalities - Resp Clear to auscultation - Abd Soft - GI nondistended Deferred - No abnormalities - Ext No significant edema - MSK 2-3+/5 weakness in left upper and lower extremity - Neuro 2-3+/5 weakness left upper and lower extremities. - Psych No abnormalities FUNCTIONAL STATUS: - Self-Care A. Eating 6-Maria E B. Grooming 5-sup C. Bathing 5-sup D. Dressing - Upper 5-sup E. Dressing - Lower 5-sup F. Toileting 5-sup - Sphincter Control G. Bladder control 6-Maria E H. Bowel control 6-Maria E - Transfers Control I. Bed/Chair/Wheelchair 5-sup J. Toilet 5-sup K. Tub/Shower 5-sup - Locomotion L. Walk/Wheelchair (B) 5-sup M. Stairs 5-sup - Communication N. Comprehension (B) 6-Maria E O. Expression (B) 6-Maria E - Social Cognition P. Social Interaction 6-Maria E Q. Problem Solving 6-Maria E R. Memory 6-Maria E - Endurance Fair - Balance Fair - Safety Awareness Good QI SCORES: - Self-Care A. Eating 03-Partial/moderate assistance B. Oral hygiene 03-Partial/moderate assistance C. Toileting hygiene 02-Substantial/maximal assistance E. Shower/bathe self 02-Substantial/maximal assistance F. Upper body dressing 03-Partial/moderate assistance G. Lower body dressing 02-Substantial/maximal assistance H. Putting on/taking off footwear 88-Not attempted due to medical condition or safety concerns - Mobility A. Roll left and right 03-Partial/moderate assistance B. Sit to lying 03-Partial/moderate assistance C. Lying to sitting on side of bed 03-Partial/moderate assistance D. Sit to stand 03-Partial/moderate assistance E. Chair/jrv-wu-kbkgn transfer 02-Substantial/maximal assistance F. Toilet transfer 02-Substantial/maximal assistance G. Car transfer 88-Not attempted due to medical condition or safety concerns I. Walk 10 feet 88-Not attempted due to medical condition or safety concerns J. Walk 50 feet with two turns 88-Not attempted due to medical condition or safety concerns K. Walk 150 feet 88-Not attempted due to medical condition or safety concerns L. Walking 10 feet on uneven surfaces 88-Not attempted due to medical condition or safety concerns M. 1 step (curb) 88-Not attempted due to medical condition or safety concerns N. 4 steps 88-Not attempted due to medical condition or safety concerns O. 12 steps 88-Not attempted due to medical condition or safety concerns P. Picking up object 88-Not attempted due to medical condition or safety concerns R. Wheel 50 feet with two turns 88-Not attempted due to medical condition or safety concerns S. Wheel 150 feet 88-Not attempted due to medical condition or safety concerns - Bladder and Bowel Bladder continence Bowel continence - Endurance Fair - Balance Fair - Safety Awareness Fair DISCHARGE INSTRUCTIONS: - N/A Eliquis 5 mg twice daily. DISCHARGE PLAN, FOLLOW UP CARE PROVISIONS: - Estimated Length of Stay (days) 10. - Consensus on plan Discharge plan has been discussed with primary caregiver. Patient/Family is in agreement with the denis n. Primary caregiver is in agreement with the plan. - Patient/Family Goals Return home independently. - Planned Living Setting Upon Discharge Home, to live with Family/Relatives. Transitional Living. SIGNATURE PANEL: (TRACK WELDER)
== END 2020-04-09 14:00 | DRG 948 ==
LOC: 5TH 03-23 17:58
PROVIDERS: ADMIT Psychiatry & Neurology Neurology with Special Qualifications in Child Neurology; ATTEND Psychiatry & Neurology Neurology with Special Qualifications in Child Neurology
DX: R53.81 Other malaise (principal); I48.91 Unspecified atrial fibrillation; S70.12XD Contusion of left thigh, subsequent encounter; Z20.822 Contact with and (suspected) exposure to COVID-19; Z23 Encounter for immunization
CPT/HCPCS: 36415; 80048; 81001; 82040; 82947; 83735; 84134; 85025; 87086; 87088; 92507; 92523; 97110; 97112; 97116; 97127; 97162; 97530; 97542; U0002; U0003

== ENCOUNTER 2020-11-25 09:33 | Inpatient (IN) | payer OTHER ==
--- NOTE | 2020-11-25 09:53 | RAD REPORT ---
EXAM DESCRIPTION: CT - Ct Stroke Brain Wo Cont - 11/25/2020 9:42 am CLINICAL HISTORY: Left-sided weakness COMPARISON: 2019 TECHNIQUE: Computed axial tomography of the head was obtained. All CT scans are performed using dose optimization technique as appropriate and may include automated exposure control or mA/KV adjustment according to patient size. FINDINGS: An intracranial bleed is not seen . The ventricles are normal in caliber. No extra-axial fluid collection is noted. Large old right cerebral infarction Chronic sinusitis IMPRESSION: No acute intracranial abnormality is seen. If patient's symptoms persist MRI of the bra in would be recommended. Dr Peralta of the emergency room was notified at 9:49 a.m. November 25, 2020
[2020-11-25 09:54] LABS: Absolute Lymphocytes (CBC) 1.4 K/uL (0.7-4.9); Basophils % 0.6 % (0-1.3); Hematocrit 40.6 % (39.6-49.0); Lymphocytes % 23.1 % (15.3-44.8); MPV 8.4 fL (7.6-11.3)
--- NOTE | 2020-11-25 10:10 | RAD REPORT ---
EXAM DESCRIPTION: Dmitri Single View11/25/2020 10:02 am CLINICAL HISTORY: Shortness of breath COMPARISON: March 2020 FINDINGS: The lungs appear clear of acute infiltrate. The heart is mildly to moderately enlarged. P ostsurgical changes involve the chest IMPRESSION: No acute abnormalities displayed
[2020-11-25 10:13] LABS: Protime INR 1.21
[2020-11-25 10:36] LABS: Potassium 4.4 mmol/L (3.5-5.1)
--- NOTE | 2020-11-25 11:52 | ER ---
Nurse's Notes [facility] Name: Leonidas Corona Age: 80 yrs Sex: Male : 1940 Arrival Date: 11/25/2020 Time: 09:34 Bed 4 Private MD: Diagnosis: Altered mental status, unspecified;Left-sided weakness Presentation: 11/25 09:38 Chief complaint: EMS states: "pt has a history of previous stroke that happened in June jd3 of last year. that stroke had affected his left side and caused left sided deficits. pt also reporting have a neuro surgery at the time to remove that clot that had formed. the pt reported at 0700 that his left hand was shaking then felt as if his left sided deficits got worse and he was leaning more on the left side then normal. the pt is currently on Eliquis after the last stroke.". Coronavirus screen: At this time, the client does not indicate any symptoms associated with coronavirus-19. Ebola Screen: Patient negative for fever greater than or equal to 101.5 degrees Fahrenheit, and additional compatible Ebola Virus Disease symptoms. Initial Sepsis Screen: Does the patient meet any 2 criteria? No. Patient's initial sepsis screen is negative. Does the patient have a suspected source of infection? No. Patient's initial sepsis screen is negative. Risk Assessment: Do you want to hurt yourself or someone else? Patient reports no desire to harm self or others. Onset of symptoms was November 25, 2020. 09:38 Method Of Arrival: EMS: [facility] 09:38 Acuity: EFFIE 2 jd3 09:47 An acute neurological deficit is present. The charge nurse has been notified. The jd3 patient has been moved to a treatment area. The patients blood glucose was checked before arriving to the hospital and was found to be normal. Triage Assessment: 09:48 The onset of the patients symptoms was November 25, 2020 at 07:00. Neuro: Reports jd3 weakness in left side of body. Stroke Activation: Symptom onset < 3 hours Physician: Stroke Attending; Name: ; Notified At: ; Arrived At: Physician: Chief Stroke Resident; Name: ; Notified At: ; Arrived At: Physician: Stroke Resident; Name: ; Notified At: ; Arrived At: Physician: ED Attending; Name: Kathryn; Notified At: 09:45; Arrived At: 09:45 Physician: ED Resident; Name: ; Notified At: ; Arrived At: Historical: - Allergies: :49 No Known Allergies; jd3 - Home Meds: :49 Eliquis 5 mg oral tab 1 tab 2 times per day [Active]; jd3 10:11 atorvastatin 10 mg oral tab 1 tab once daily [Active]; citalopram 40 mg tab 1 tab once jd3 daily [Active]; furosemide 20 mg oral tab 1 tab once daily [Active]; gabapentin 300 mg oral tab 3 cap twice a day [Active]; magnesium oxide 400 mg magnesium oral tab twice a day [Active]; metformin 500 mg Oral Tb24 1 tab once daily [Active]; metoprolol succinate 50 mg Oral Tb24 1 tab once daily [Active]; Flomax 0.4 mg Oral cp24 1 cap nightly [Active]; Aspercreme (lidocaine) 4 % topical ptmd daily [Active]; senna 8.6 mg oral cap 2 caps nightly [Active]; tramadol 50 mg Oral tab 1 tab every 4-6 hours [Active]; - PMHx: 09:49 Atrial Fib; CVA; High Cholesterol; mitral valve repair; jd3 - Immunization history:: Adult Immunizations up to date. - Social history:: Smoking status: unknown. Screenin:45 Abuse screen: Denies threats or abuse. Denies injuries from another. Nutritional tw5 screening: No deficits noted. Tuberculosis screening: No symptoms or risk factors identified. Fall Risk Fall in past 12 months (25 points). Secondary diagnosis (15 points) IV access (20 points). Ambulatory Aid- None/Bed Rest/Nurse Assist (0 pts). Gait- Impaired (20 pts.). Mental Status- Oriented to own ability (0 pts). 10:25 The patient has not been NPO before screening. The patient is alert, able to follow tw5 commands. The patient exhibits slurred or garbled speech. The patient is not exhibiting difficulty speaking. The patient does not exhibit difficulty understanding words. The patient is able to swallow own secretions with no drooling or need for suction. Patient tolerated one teaspoon of water. No drooling, immediate coughing, gurgling, or clearing of the throat was noted. The patient tolerated 90mL of water. No drooling, immediate coughing, gurgling, or clearing of the throat was noted. The patient passed the bedside swallow screening. Oral medications may be given as ordered. Contact Physician for further diet orders. Provider notified of bedside swallow screening results: Jah Peralta MD. Assessment: 09:55 VAN Scoring: Arm Drift: Patients demonstrates NO arm weakness. Patient is VAN Negative. tw5 T-PA (Activase) Screening: Indications: Definite evidence of stroke, ischemic, embolic, or hypertensive: Yes. Treatment will start within 4.5 hours onset of symptoms: Yes. No evidence of intracranial hemorrhage or CT of head and no evidence of peripheral hemorrhage or recent CVA: Contraindications: Is the patient on Aspirin, Heparin, or Warfarin: Yes. 10:02 General: Reports "I have already weakness, but this morning my left pinky finger tw5 started twitching and it never moves, then I felt even weaker and I lost balance and leaned into the wall. I am feeling better, just nausea now." NIHSS of a 6 is his base line due to previous stroke.. Pain: Denies pain. Cardiovascular: Reports nausea. Respiratory: Reports. 12:13 The patient has not been NPO before screening. The patient is alert, and able to follow tw5 commands. The patient exhibits slurred or garbled speech. Prior slurred speech The patient is not exhibiting difficulty speaking. The patient does not exhibit difficulty understanding words. The patient is able to swallow own secretions with no drooling or need for suction. Patient tolerated one teaspoon of water. No drooling, immediate coughing, gurgling, or clearing of the throat was noted. The patient tolerated 90mL of water. No drooling, immediate coughing, gurgling, or clearing of the throat was noted. The patient passed the bedside swallow screening. Oral medications may be given as ordered. Contact Physician for further diet orders. Vital Signs: 09:51 BP 150 / 81; Pulse 59; Resp 16 S; Temp 97.5(TE); Pulse Ox 96% on R/A; Pain 0/10; jd3 12:13 BP 144 / 83; Pulse 84; Resp 18; Pulse Ox 99% on R/A; tw5 16:29 Weight 94.8 kg; Height 5 ft. 9 in. (175.26 cm); em1 16:29 Body Mass Index 30.86 (94.80 kg, 175.26 cm) em1 NIH Stroke Scale Scores: 10:02 NIHSS Score: 6 tw5 10:15 NIHSS Score: 6 kdr ED Course: 09:34 Patient arrived in ED. am2 09:37 Jah Peralta MD is Attending Physician. kdr 09:[address] via stretcher. tw5 09:42 CT Stroke Brain w/o Contrast In Process Unspecified. EDMS 09:45 Patient moved back from [address]. tw5 09:45 No apparent distress. tw5 09:45 Patient has correct armband on for positive identification. Placed in gown. Bed in low tw5 position. Call light in reach. Side rails up X2. binder stripper machine on. Pulse ox on. NIBP on. Door closed. Noise minimized. Lights dimmed. Moved to private room. Warm blanket given. Oral care given. 09:45 X-ray(s) taken. tw5 09:45 Maintain EMS IV. Dressing intact. Good blood return noted. Site clean \\T\\ dry. Gauge \\T\\ tw 5 site: 20 G R wrist. 09:46 Triage completed. jd3 09:52 Flora Finley is Primary Nurse. tw5 09:52 Arm band placed on. jd3 09:59 EKG done, by ED staff, reviewed by Jah Peralta MD. em1 10:02 Stroke CXR 1 View In Process Unspecified. EDMS 10:09 Basic Metabolic Panel Sent. tw5 10:09 Protime (+inr) Sent. tw5 10:09 Ptt, Activated Sent. tw5 11:50 Garry Mcbride DO is Hospitalizing Provider. kdr 15:23 initiated a transfer with Gabbie from the [facility]. eb 16:32 [facility] denied transfer; transfer initiated with [facility]. em1 16:49 Pt transfer accepted to [facility] per Sammi Gonzalez RN,TC. em1 Administered Medications: No medications were administered Point of Care Testing: Blood Glucose: 09:51 Blood Glucose: 104 mg/dL; jd3 Ranges: Outcome: 11:51 Decision to Hospitalize by Provider. kdr 17:08 Transferred to [facility], Transfer form completed. Note: Called report to tw5 Ivy DAY at [facility]. 17:48 ER care complete, transfer ordered by . kdr 18:04 Patient left the ED. tw2 NIH Stroke Scale - NIH Stroke Score Date: 11/25/2020 Time: 10:02 Total Score = 6 1a. Level of Consciousness (LOC) - 0(Alert) 1b. Level of Consciousness (LOC) (Month \\T\\ Age) - 0(Both) 1c. LOC Commands (Open \\T\\ Closes Eyes/Scrap Breaker) - 1(One) 2. Best Gaze (Lateral Gaze Paresis) - 0(Normal) 3. Visual Field Loss - 0(No visual loss) 4. Facial Palsy - 1(Minor Paralysis) 5a. Left Arm: Motor (10-second hold) - 3(No effort against gravity) 5b. Right Arm: Motor (10-second hold) - 0(No drift) 6a. Left Leg: Motor (5-second hold - always test supine) - 0(No drift) 6b. Right Leg: Motor (5-second hold - always test supine) - 0(No drift) 7. Limb Ataxia (finger/nose \\T\\ heel/samuels - test with eyes open) - 1(Present in one limb) 8. Sensory Loss (pinprick arms/legs/face) - 0(Normal) 9. Best Language: Aphasia (description/naming/reading) - 0(No aphasia) 10. Dysarthria (speech clarity - read or repeat words) - 0(Normal) 11. Extinction and Inattention (visual/tactile/auditory/spatial/personal) - 0(No abnormality) Initials: tw5 NIH Stroke Scale - NIH Stroke Score Date: 11/25/2020 Time: 10:15 Total Score = 6 1a. Level of Consciousness (LOC) - 0(Alert) 1b. Level of Consciousness (LOC) (Month \\T\\ Age) - 0(Both) 1c. LOC Commands (Open \\T\\ Closes Eyes/Scrap Breaker) - 0(Both) 2. Best Gaze (Lateral Gaze Paresis) - 0(Normal) 3. Visual Field Loss - 0(No visual loss) 4. Facial Palsy - 1(Minor Paralysis) 5a. Left Arm: Motor (10-second hold) - 4(No movement) 5b. Right Arm: Motor (10-second hold) - 0(No drift) 6a. Left Leg: Motor (5-second hold - always test supine) - 0(No drift) 6b. Right Leg: Motor (5-second hold - always test supine) - 0(No drift) 7. Limb Ataxia (finger/nose \\T\\ heel/samuels - test with eyes open) - 1(Present in one limb) 8. Sensory Loss (pinprick arms/legs/face) - 0(Normal) 9. Best Language: Aphasia (description/naming/reading) - 0(No aphasia) 10. Dysarthria (speech clarity - read or repeat words) - 0(Normal) 11. Extinction and Inattention (visual/tactile/auditory/spatial/personal) - 0(No abnormality) Initials: kdr Signatures: Dispatcher [employer] EDMS Jah Peralta MD MD kdr Martinez, Eric em1 Kimberly López RN RN tw2 Terese Jalloh am2 Michael Vo RN RN jd3 Bhavya Stevens Tiffany tw5 Corrections: (The following items were deleted from the chart) 09:49 09:38 Chief complaint: EMS states: "pt has a history of previous stroke that jd3 happened in June of last year. that stroke had affected his left side and caused left sided deficits. the pt reported at 0700 that his left hand was shaking then felt as if his left sided deficits got worse and he was leaning more on the left side then normal. the pt is currently on Eliquis after the last stroke." jd3 09:53 09:38 Patient moved back from [place]. 10:09 09:55 NIHSS Score: 6
--- NOTE | 2020-11-25 11:52 | EDPHYS ---
Physician Documentation [facility] Name: Leonidas Corona Age: 80 yrs Sex: Male : 1940 Arrival Date: 11/25/2020 Time: 09:34 Bed 4 Private MD: ED Physician Jah Peralta HPI: 11/25 10:11 This 80 yrs old Male presents to ER via EMS with complaints of Left-sided kdr twitching and weakness. 10:11 The patient's problem is reported as a facial droop, on left, Twitching of his left kdr upper extremity and confusion. Onset: The symptoms/episode began/occurred suddenly, just prior to arrival. Duration: This was a single incident, Brief. Context: the episode(s) was witnessed, by no one, symptoms became apparent Just prior to arrival, occurred at home, occurred while the patient was at rest, Light activity. Possible contributing factors include:. The symptoms are alleviated by nothing. The symptoms are aggravated by nothing. Associated signs and symptoms: Pertinent positives: Twitching and weakness to the left upper extremity and face. Severity of symptoms: At their worst the symptoms were very mild in the emergency department the symptoms are unchanged. Patient's baseline: Neuro: alert and fully oriented, Motor: left-sided weakness, Patient has a prior stroke with residual left upper extremity immobility. The patient has experienced similar episodes in the past. The patient has not recently seen a physician. Historical: - Allergies: 09:49 No Known Allergies; jd3 - Home Meds: 09:49 Eliquis 5 mg oral tab 1 tab 2 times per day [Active]; jd3 10:11 atorvastatin 10 mg oral tab 1 tab once daily [Active]; citalopram 40 mg tab 1 tab once jd3 daily [Active]; furosemide 20 mg oral tab 1 tab once daily [Active]; gabapentin 300 mg oral tab 3 cap twice a day [Active]; magnesium oxide 400 mg magnesium oral tab twice a day [Active]; metformin 500 mg Oral Tb24 1 tab once daily [Active]; metoprolol succinate 50 mg Oral Tb24 1 tab once daily [Active]; Flomax 0.4 mg Oral cp24 1 cap nightly [Active]; Aspercreme (lidocaine) 4 % topical ptmd daily [Active]; senna 8.6 mg oral cap 2 caps nightly [Active]; tramadol 50 mg Oral tab 1 tab every 4-6 hours [Active]; - PMHx: 09:49 Atrial Fib; CVA; High Cholesterol; mitral valve repair; jd3 - Immunization history:: Adult Immunizations up to date. - Social history:: Smoking status: unknown. ROS: 10:15 Constitutional: Negative for fever, chills, and weight loss, Eyes: Negative for injury, kdr pain, redness, and discharge, ENT: Negative for injury, pain, and discharge, Neck: Negative for injury, pain, and swelling, Cardiovascular: Negative for chest pain, palpitations, and edema, Respiratory: Negative for shortness of breath, cough, wheezing, and pleuritic chest pain, Abdomen/GI: Negative for abdominal pain, nausea, vomiting, diarrhea, and constipation, Back: Negative for injury and pain, : Negative for injury, bleeding, discharge, and swelling, MS/Extremity: Negative for injury and deformity, Skin: Negative for injury, rash, and discoloration, Psych: Negative for depression, anxiety, suicide ideation, homicidal ideation, and hallucinations, Allergy/Immunology: Negative for hives, rash, and allergies, Endocrine: Negative for neck swelling, polydipsia, polyuria, polyphagia, and marked weight changes, Hematologic/Lymphatic: Negative for swollen nodes, abnormal bleeding, and unusual bruising. 10:15 Neuro: Positive for altered mental status, weakness, Twitching of the left upper extremity that was brief. Left facial weakness. Exam: 10:15 Radiologist reports: Negative per Dr. Madison [facility] 10:15 Constitutional: This is a well developed, well nourished patient who is awake, alert, and in no acute distress. Head/Face: Normocephalic, atraumatic. Eyes: Pupils equal round and reactive to light, extra-ocular motions intact. Lids and lashes normal. Conjunctiva and sclera are non-icteric and not injected. Cornea within normal limits. Periorbital areas with no swelling, redness, or edema. Neck: Trachea midline, no thyromegaly or masses palpated, and no cervical lymphadenopathy. Supple, full range of motion without nuchal rigidity, or vertebral point tenderness. No Meningismus. Chest/axilla: Normal chest wall appearance and motion. Nontender with no deformity. No lesions are appreciated. Cardiovascular: Regular rate and rhythm with a normal S1 and S2. No gallops, murmurs, or rubs. Normal PMI, no JVD. No pulse deficits. Respiratory: Lungs have equal breath sounds bilaterally, clear to auscultation and percussion. No rales, rhonchi or wheezes noted. No increased work of breathing, no retractions or nasal flaring. Abdomen/GI: Soft, non-tender, with normal bowel sounds. No distension or tympany. No guarding or rebound. No evidence of tenderness throughout. Back: No spinal tenderness. No costovertebral tenderness. Full range of motion. Skin: Warm, dry with normal turgor. Normal color with no rashes, no lesions, and no evidence of cellulitis. MS/ Extremity: Pulses equal, no cyanosis. Neurovascular intact. Full, normal range of motion. Psych: Awake, alert, with orientation to person, place and time. Behavior, mood, and affect are within normal limits. 10:15 Neuro: Orientation: is normal, Mentation: is normal, Memory: is normal, Cranial nerves: no acute changes, Cerebellar function: unable to test, Secondary to prior CVA with left-sided immobility. Patient was unable to move his left upper extremity which is chronic, Motor: All was normal except for left upper extremity, Sensation: All was normal except for left upper extremity. 10:20 ECG was reviewed by the Attending Physician. kdr Vital Signs: 09:51 BP 150 / 81; Pulse 59; Resp 16 S; Temp 97.5(TE); Pulse Ox 96% on R/A; Pain 0/10; jd3 12:13 BP 144 / 83; Pulse 84; Resp 18; Pulse Ox 99% on R/A; tw5 16:29 Weight 94.8 kg; Height 5 ft. 9 in. (175.26 cm); em1 16:29 Body Mass Index 30.86 (94.80 kg, 175.26 cm) em1 NIH Stroke Scale Scores: 10:02 NIHSS Score: 6 tw5 10:15 NIHSS Score: 6 kdr MDM: 10:15 ED course: While the NIH stroke scale was noted to be 6, his presentation was at his kdr baseline from the prior stroke. ED course: Therefore TPA was not an option for this patient. 11:51 Patient medically screened. kdr 11:51 Data reviewed: vital signs, nurses notes, lab test result(s), radiologic studies. kdr 11/25 09:37 Order name: Basic Metabolic Panel; Complete Time: 11:33 aa5 11/25 09:37 Order name: CBC with Diff; Complete Time: 11:33 aa5 11/25 09:37 Order name: Protime (+inr); Complete Time: 11:33 aa5 11/25 09:37 Order name: Ptt, Activated; Complete Time: 11:33 aa5 11/25 09:49 Order name: Glucose, Ancillary Testing; Complete Time: 11:33 EDMS 11/25 12:16 Order name: Liver (Hepatic) Function; Complete Time: 13:28 EDMO 11/25 09:37 Order name: CT Stroke Brain w/o Contrast; Complete Time: 11:33 aa 11/25 09:37 Order name: Stroke CXR 1 View; Complete Time: 11:33 aa5 11/25 12:21 Order name: Troponin I; Complete Time: 13:28 EDMO 11/25 12:43 Order name: COVID-19 (Coronavirus) Document "Date of Onset" if Symptomatic eb 11/25 13:32 Order name: CT; Complete Time: 13:44 EDMO 11/25 14:30 Order name: Hemoglobin A1c; Complete Time: 15:17 EDMO 11/25 14:48 Order name: CORONAVIRUS EDMO 11/25 15:40 Order name: SARS-COV-2 RT PCR EDMO 11/25 09:37 Order name: EKG; Complete Time: 09:37 aa 11/25 09:37 Order name: Accucheck; Complete Time: 10:09 aa 11/25 09:37 Order name: Cardiac monitoring; Complete Time: 10:25 aa5 11/25 09:37 Order name: EKG - Nurse/Tech; Complete Time: 10:00 aa 11/25 09:37 Order name: IV Saline Lock; Complete Time: 10:09 aa5 11/25 09:37 Order name: Labs collected and sent; Complete Time: 10:09 aa5 11/25 09:37 Order name: NPO; Complete Time: 10:25 aa5 11/25 09:37 Order name: O2 Per Protocol; Complete Time: 10:25 aa5 11/25 09:37 Order name: O2 Sat Monitoring; Complete Time: 10:25 aa5 11/25 09:37 Order name: Stroke Swallow Screen; Complete Time: 10:25 aa5 11/25 12:16 Order name: CONS Physician Consult EDMS 11/25 12:16 Order name: Heart Healthy EDMS 11/25 13:39 Order name: CT; Complete Time: 13:44 EDMS EC:20 Rate is 82 beats/min. Rhythm is regular, A flutter with No ectopy. QRS [place] is Normal. kdr OR interval is normal. QRS interval is normal. QT interval is normal. Clinical impression: Atrial Fibrillation and Atrial Flutter. Administered Medications: No medications were administered Point of Care Testing: Blood Glucose: 09:51 Blood Glucose: 104 mg/dL; jd3 Ranges: Critical Glucose Levels:Adult <50 mg/dl or >400 mg/dl <40 mg/dl or >180 mg/dl Disposition Summary: 11/25/20 17:48 Transfer Ordered Transfer Location: [facility] kdr Reason: Higher level of care kdr Condition: Fair(11/25/20 17:48) kdr Problem: new(11/25/20 17:48) kdr Symptoms: are resolved(11/25/20 17:48) kdr Accepting Physician: Dr. Rodriguez(11/25/20 18:04) tw2 Diagnosis - Altered mental status, unspecified kdr - Left-sided weakness kdr Forms: - Medication Reconciliation Form kdr - SBAR form kdr NIH Stroke Scale - NIH Stroke Score Date: 11/25/2020 Time: 10:02 Total Score = 6 1a. Level of Consciousness (LOC) - 0(Alert) 1b. Level of Consciousness (LOC) (Month \\T\\ Age) - 0(Both) 1c. LOC Commands (Open \\T\\ Closes Eyes/Director [employer]) - 1(One) 2. Best Gaze (Lateral Gaze Paresis) - 0(Normal) 3. Visual Field Loss - 0(No visual loss) 4. Facial Palsy - 1(Minor Paralysis) 5a. Left Arm: Motor (10-second hold) - 3(No effort against gravity) 5b. Right Arm: Motor (10-second hold) - 0(No drift) 6a. Left Leg: Motor (5-second hold - always test supine) - 0(No drift) 6b. Right Leg: Motor (5-second hold - always test supine) - 0(No drift) 7. Limb Ataxia (finger/nose \\T\\ heel/samuels - test with eyes open) - 1(Present in one limb) 8. Sensory Loss (pinprick arms/legs/face) - 0(Normal) 9. Best Language: Aphasia (description/naming/reading) - 0(No aphasia) 10. Dysarthria (speech clarity - read or repeat words) - 0(Normal) 11. Extinction and Inattention (visual/tactile/auditory/spatial/personal) - 0(No abnormality) Initials: tw5 NIH Stroke Scale - NIH Stroke Score Date: 11/25/2020 Time: 10:15 Total Score = 6 1a. Level of Consciousness (LOC) - 0(Alert) 1b. Level of Consciousness (LOC) (Month \\T\\ Age) - 0(Both) 1c. LOC Commands (Open \\T\\ Closes Eyes/Director Of [employer]) - 0(Both) 2. Best Gaze (Lateral Gaze Paresis) - 0(Normal) 3. Visual Field Loss - 0(No visual loss) 4. Facial Palsy - 1(Minor Paralysis) 5a. Left Arm: Motor (10-second hold) - 4(No movement) 5b. Right Arm: Motor (10-second hold) - 0(No drift) 6a. Left Leg: Motor (5-second hold - always test supine) - 0(No drift) 6b. Right Leg: Motor (5-second hold - always test supine) - 0(No drift) 7. Limb Ataxia (finger/nose \\T\\ heel/samuels - test with eyes open) - 1(Present in one limb) 8. Sensory Loss (pinprick arms/legs/face) - 0(Normal) 9. Best Language: Aphasia (description/naming/reading) - 0(No aphasia) 10. Dysarthria (speech clarity - read or repeat words) - 0(Normal) 11. Extinction and Inattention (visual/tactile/auditory/spatial/personal) - 0(No abnormality) Initials: kdr Signatures: Dispatcher [employer] EDMS Jah Peralta MD MD kdr Lilaina Kent, RN RN aa5 Kimberly López RN RN tw2 Michael Vo RN RN jd3 Corrections: (The following items were deleted from the chart) 17:47 11:51 Observation kdr kdr 17:47 11:51 Garry Mcbride kdr kdr 17:47 11:51 Telemetry/MedSurg (observation) kdr kdr 17: 11:51 Fair kdr kdr 11:51 new kdr kdr : 11:51 have improved kdr kdr 17: 11:51 Standard kdr kdr : 11:51 kdr kdr 11:51 Weakness - Left-sided kdr kdr 18:04 17:48 Smart kdr tw2
[2020-11-25] MEDS ORDERED: ACETAMINOPHEN 500 MG TAB PO PRN (12:12)
--- NOTE | 2020-11-25 12:36 | P.HP ---
Certification for Inpatient With expected LOS: >2 Midnights Patient will require the following post-hospital care: Rehabilitation Practitioner: I am a practitioner with admitting privileges, knowledge of patient current condition, hospital course, and medical plan of care. Services: Services provided to patient in accordance with Admission requirements found in Title 42 Section 412.3 of the Code of Federal Regulations <ChristianoAny - Last Filed: 11/25/20 14:53> Patient History Date of Service: 11/25/20 Reason for admission: stroke like symptoms History of Present Illness: The patient is a 80 year old mariusz with past medical history of left sided CVA with residual paralysis in 2019 , DM II , hypertension , hyperlipidemia , atrial fibrillation , mitral valve replacement who presents with left arm twitching. At approximately 6:30 AM AM, the patient woke up and went to the bathroom and started twitching on his left arm. The patient did have some residual left side sided weakness and paralysis from the previous stroke that requires the use of a cane. When seen in ED , patient is at baseline. Patient denies head trauma, headache, slurred speech , urinary incontinence , syncope , change in vision, nausea, and vomiting , dizziness, shortness of breath , chest pain, or palpitations. His CT head is negative. - Past Medical/Surgical History Diabetic: No -: Appendicitis -: Atrial Fibrillation -: High cholesterol Past Surgical History: Reviewed- Non-Contributory -: Mitral Valve Repair -: Knee surgery -: Appendectomy -: Root Canal -: Hip Surgery - Family History Father -: Heart disease, Hypertension Notes: - Congestive heart failure Mother -: GI disease - Social History Smoking Status: Never smoker Alcohol use: Yes CD- Drugs: No Caffeine use: No <Any Alvarado - Last Filed: 11/25/20 14:53> Date of Service: 11/25/20 <Garry Mcbride - Last Filed: 11/25/20 18:12> Allergies venom-honey bee Allergy (Verified 03/23/20 21:30) Hives/Rash Home Medications: Docusate/Senna [Senokot-S*] 2 tab PO BEDTIME PRN #60 tab 07/12/19 Gabapentin 900 mg PO BID 03/14/20 Apixaban [Eliquis] 5 mg PO BID tablet 04/09/20 Atorvastatin Calcium [Lipitor*] 10 mg PO BEDTIME tab 04/09/20 Citalopram [Celexa*] 40 mg PO DAILY tablet 04/09/20 Lidocaine 4% Patch [Lidoderm 5% Patch*] 2 patch TOP DAILY patch 04/09/20 Loperamide [Imodium*] 2 mg PO Q4H PRN cap 04/09/20 Melatonin [Melatonin*] 3 mg PO BEDTIME PRN PRN tablet 04/09/20 Metformin HCl [Glucophage*] 500 mg PO DAILY WITH BREAKFAST tab 04/09/20 Ondansetron [Zofran (Odt)*] 4 mg PO Q4H PRN tab 04/09/20 Tamsulosin [Flomax*] 0.4 mg PO BEDTIME cap 04/09/20 traMADol HCL [Ultram*] 100 mg PO Q4H PRN tab 04/09/20 Acetaminophen 500 mg PO Q4H PRN 11/25/20 Furosemide [Lasix*] 20 mg PO DAILY 11/25/20 Magnesium Oxide [Mag 0X*] 400 mg PO BID 11/25/20 Metoprolol Succinate [Toprol Xl*] 50 mg PO DAILY 11/25/20 Nystatin Cream [Mycostatin 100MU/Gm Cream*] 1 applic TD BID 11/25/20 Review of Systems General: Unremarkable Eyes: Unremarkable ENT: Unremarkable Respiratory: Unremarkable Cardiovascular: Unremarkable Gastrointestinal: Unremarkable Musculoskeletal: As per HPI Integumentary: Unremarkable Neurological: As per HPI <Any Alvarado - Last Filed: 11/25/20 14:53> Physical Examination - Physical Exam General: Alert, In no apparent distress, Oriented x3, Cooperative HEENT: Atraumatic, Normocephalic, PERRLA, Mucous membr. moist/pink, Sclerae nonicteric Neck: Supple, Without JVD or thyroid abnormality Respiratory: Clear to auscultation bilaterally, Normal air movement Cardiovascular: Regular rate/rhythm, No gallops, No rubs, No murmurs Gastrointestinal: Normal bowel sounds, Soft and benign, Non-distended, No ascites, No tenderness, No masses, No rebound Musculoskeletal: No clubbing, No swelling, No contractures, No erythema, No tenderness, No warmth Integumentary: No rashes, No breakdown, No significant lesion, No tenderness/swelling, No erythema, No warmth, No cyanosis Neurological: Other (mild baseline slurred speech , left sided hemiparalysis , ) - Studies Laboratory Data (last 24 hrs) 11/25/20 09:40: PT 14.0 H, INR 1.21, APTT 36.7 11/25/20 09:40: WBC 6.00, Hgb 13.3 L, Hct 40.6, Plt Count 232 11/25/20 09:40: Sodium 138, Potassium 4.4, BUN 15, Creatinine 0.87, Glucose 97 <Any Alvarado - Last Filed: 11/25/20 14:53> - Studies Laboratory Data (last 24 hrs) 11/25/20 09:40: Troponin I < 0.02 11/25/20 09:40: Total Bilirubin 0.4, AST 20, ALT 22, Alkaline Phosphatase 102 11/25/20 09:40: PT 14.0 H, INR 1.21, APTT 36.7 11/25/20 09:40: WBC 6.00, Hgb 13.3 L, Hct 40.6, Plt Count 232 11/25/20 09:40: Sodium 138, Potassium 4.4, BUN 15, Creatinine 0.87, Glucose 97 <Garry Mcbride - Last Filed: 11/25/20 18:12> Assessment and Plan - Plan Assessment: 80 year old male with PMHx of atrial fibrillation , DM II , left sided CVA 2019 , mitral valve replacement presents for evaluation of left arm twitching, Plan: Stroke like symptoms with h/o right sided CVA with residual left sided hemiparalysis: CT head negative CTA head negative All labs WNL ASA 325 mg daily Statin daily Folic acid daily Neuro checks q6H Monitor BP. Continue home meds Neurology consulted. Awaiting recommendations Atrial Fibrillation: EKG pending Continue Eliquis and beta kavita Diabetes Mellitus Type II: A1c pending Blood glucose control per protocol Discharge Plan: Home Plan to discharge in: 48 Hours - Advance Directives Does patient have a Living Will: No Does patient have a Durable POA for Healthcare: Yes <Any Alvarado - Last Filed: 11/25/20 14:53> - Plan Patient examined. Care discussed with physician litigation legal assistant and ER physician. Patient presented with abnormal twitching to the left upper extremity. Patient with history of CVA with residual left-sided deficit with contracture. Patient with prior large right cerebral stroke. Patient was evaluated emergency room. Initial CT scan unremarkable. CT angiogram of the neck shows intimal flap of the carotid on the right side. Care discussed in detail with neurology. Due to his current and prior status recommendation was to transfer patient to high- level center for further evaluation. Patient may require four-vessel angiogram to further evaluate with the possible need for intervention like stent. Care discussed in detail with patient, son. Both agreed for transfer. Patient accepted to [facility] for further treatment. Neurology did recommend to start Keppra 250 mg 1 pill twice daily. Patient takes medicationEliquis and beta-kavita for atrial fibrillation. Continue with diabetic control. Patient may require inpatient rehab after evaluation at [facility]. Continue with plan of care to transfer patient to high-level center for further evaluation and treatment. Time Spent Managing Pts Care (In Minutes): 55 <Garry Mcbride - Last Filed: 11/25/20 18:12>
[2020-11-25] MEDS ORDERED: D50W 25 GM/50 ML SYRINGE IV PRN (12:56)
[2020-11-25] MEDS ORDERED: GLUCAGON 1 MG/VIAL IM PRN (12:56)
[2020-11-25 13:12] LABS: Albumin 3.6 g/dL (3.4-5.0); Bilirubin Direct 0.1 mg/dL (0-0.2); Bilirubin Total 0.4 mg/dL (0.2-1.0); Protein, Total 7.5 g/dL (6.4-8.2)
--- NOTE | 2020-11-25 13:31 | RAD REPORT ---
EXAM DESCRIPTION: Dariela Angio11/25/2020 1:16 pm CLINICAL HISTORY: cva COMPARISON: None TECHNIQUE: 50 cc Isovue 370 was administered intravenously. 3D MIP reconstruction performed All CT scans are performed using dose optimization technique as appropriate and may include automated exposure control or mA/KV adjustment according to patient size. FINDINGS: Intimal flap origin right subclavian artery. Internal carotid arteries are tortuous. No plaque visualized within common/internal/external carotid arteries. Right vertebral artery is dominant. Left vertebral artery is hypoplastic. It terminates into PICA IMPRESSION: Intimal flap origin right subclavian artery Plaque within the carotid arteries not visualized NASCET criteria used. Mild 0-49% stenosis Moderate 50-69% stenosis Severe 70-99% stenosis
--- NOTE | 2020-11-25 13:38 | RAD REPORT ---
EXAM DESCRIPTION: CTHead angio11/25/2020 1:16 pm CLINICAL HISTORY: cva COMPARISON: None TECHNIQUE: CT angiogram of the head was obtained. 3D MIPS reconstruction performed. All CT scans are performed using dose optimization technique as appropriate and may include automated exposure control or mA/KV adjustment according to patient size. FINDINGS: Branches of the right middle cerebral artery are diminished in caliber and number secondar y to old infarction. The basilar, internal carotid, anterior cerebral, left middle middle cerebral and posterior cerebral arteries are normal caliber. An aneurysm is not seen. origin left posterior cerebral artery A significant stenosis is not noted. IMPRESSION: No acute abnormality displayed
[2020-11-25 15:29] VITALS: BMI 30.8
[2020-11-25 15:32] VITALS: BP 134/78
[2020-11-25] MEDS ORDERED: INFLUENZA VACCINE (for 6+ mo) 0.5 ML DOSE IMVAC ONE (16:00)
[2020-11-25] MEDS ORDERED: PNEUMOCOCCAL VACCINE 0.5 ML IMVAC ONE (16:00)
[2020-11-25] MEDS ORDERED: INSULIN -REGULAR HUMAN 50 UNIT/0.5 ML ML SQ SCH (16:30)
[2020-11-25 18:11] VITALS: TEMP 97.5
[2020-11-25] MEDS ORDERED: levETIRAcetam 500 MG TAB PO SCH (21:00)
[2020-11-25] MEDS ORDERED: ATORVASTATIN 20 MG TAB PO SCH (21:00)
[2020-11-26 08:12] VITALS: O2SAT 98
--- NOTE | 2020-11-26 08:59 | EKG ---
Test Date: 2020-11-25 Test Time: 09:59:34 Supervisor Cytology: MEAGAN MEASUREMENT RESULTS: Intervals: Rate: 82 MT: QRSD: 86 QT: 424 QTc: 495 [place]: P: MT: QRS: 29 T: 61 INTERPRETIVE STATEMENTS: Atrial flutter with variable AV block with premature ventricular or aberrantly conducted complexes Nonspecific T wave abnormality Prolonged QT Abnormal ECG Compared to ECG 03/17/2020 14:28:50 T-wave abnormality now present Prolonged QT interval now present Atrial fibrillation no longer present ST (T wave) deviation no longer present Electronically Signed On 11-26-20 08:57:24 CDT by Young Mcdonald
[2020-11-26] MEDS ORDERED: ASPIRIN 81 MG CHEWABLE TABLET PO SCH (09:00)
[2020-11-26] MEDS ORDERED: FOLIC ACID 1 MG in NA CHLORIDE 0.9% 50 ML IV SCH (09:00)
== END 2020-11-25 18:04 | disposition short-term general hospital (02) | DRG 92 ==
LOC: SUPCPDRO 09:33 → ER 09:33 → ERHOLD 12:12
PROVIDERS: ADMIT Family Medicine; ATTEND Hospitalist
DX: R25.3 Fasciculation (principal); I69.354 Hemiplegia and hemiparesis following cerebral infarction affecting left non-dominant side; I48.91 Unspecified atrial fibrillation; I10 Essential (primary) hypertension; E78.5 Hyperlipidemia, unspecified; E11.9 Type 2 diabetes mellitus without complications; R29.706 NIHSS score 6; R29.810 Facial weakness; Z79.01 Long term (current) use of anticoagulants; Z79.899 Other long term (current) drug therapy; Z79.84 Long term (current) use of oral hypoglycemic drugs; Z90.49 Acquired absence of other specified parts of digestive tract; Z91.030 Bee allergy status; Z20.822 Contact with and (suspected) exposure to COVID-19
CPT/HCPCS: 36415; 70450; 70496; 70498; 71045; 80048; 80076; 82947; 83036; 84484; 85025; 85610; 85730; 93005; 94760; 99285; Q9967; U0003

== ENCOUNTER 2021-01-22 08:24 | Emergency (ER) | payer OTHER ==
--- OUTSIDE RECORDS SUMMARY | 2021-01-22 08:27 | XMS REPORT | Continuity of Care Document ---
:1940 Author Organization [facility] t Address [address] [place] [address] Care Team Providers Name Role Phone DAISY Primary Care Physician Unavailable SURYA GRACIA Attending Clinician Unavailable [facility] Attending Clinician Unavailable Bernie SANDERSON Attending Clinician SURYA GRACIA Admitting Clinician Unavailable Payers Payer Name Policy Type Policy Number Effective Date Expiration Date Berenice العلي [employer] MEDICARE HMO [id number] 2016 POS PPO 00:00:00 Problems Condition Condition Condition Status Onset Resolution Last Treating Co mments Source Name Details Category Date Date Treatment Clinician Date No known No known Disease Unive rs active active ity of problems problems [facility] Elbow Elbow Diagnosis Active [facility] pain, left pain, left Jennifer kes - [facility] Closed Closed Diagnosis Active [facility] displaced displaced Luke s - fracture fracture Memori a of head of of head of l left left Outpati radius radius ent with with Clinics routine routine healing, healing, subsequent subsequent encounter encounter Allergies, Adverse Reactions, Alerts Allergy Allergy Status Severity Reaction(s) Onset Inactive Treating Comm ents Source Name Type Date Date Clinician NO KNOWN Drug Active Univers ALLERGIE Class ity of S [facility] NO KNOWN Allergy Active [facility] Social History Social Habit Start Date Stop Date Quantity Comments Source Sex Assigned At Uni versity [facility] Smoking Status Start Date Stop Date Source Unknown if ever smoked Universit y [facility] Medications Ordered Filled Start Stop Current Ordering Indication Dosage Frequency Signature Comments Components Source Medication Medication Date Date Medication? Clinician (SIG) Name Name metFORMIN 2020-0 Yes 500mg Take 500 Uni vers 500 mg 8-18 mg by ity of tablet 18:12: mouth. [address] olmesartan 2020-0 Yes 20mg Take 20 mg U nivers 20 mg 8-18 by mouth. ity of tablet 18:12: [address] rivaroxaban 2020-0 Yes Take by Un kiran 20 mg 8-18 mouth. ity of tablet 18:12: [address] ALPRAZolam 2020-0 Yes 2mg Take 2 mg Un kiran 2 mg tablet 818 by mouth. ity of 18:12: [address] metFORMIN 2019-0 Yes 500mg Take 500 Uni vers 500 mg 8-18 mg by ity of tablet 18:12: mouth. [address] olmesartan 2019-0 Yes 20mg Take 20 mg U nivers 20 mg 8-18 by mouth. ity of tablet 18:12: [address] rivaroxaban 2019-0 Yes Take by Un kiran 20 mg 8-18 mouth. ity of tablet 18:12: [address] ALPRAZolam 2020-0 Yes 2mg Take 2 mg Un kiran 2 mg tablet 8-18 by mouth. ity of 18:12: [address] flecainide 2019-0 2020- No 50mg Take 50 mg Univers 50 mg 18 18 by mouth. ity of tablet 18:08: 00:00 [place] 15 :00 [facility] multivitami 2020-0 2020- No 1{tbl} Take 1 U nivers n tablet 09-26 tablet by ity o f 18:08: 00:00 mouth. [place] 15 :00 [facility] rosuvastati 2019-0 2020- No 20mg Take 20 mg Univers n 20 mg 18 18 by mouth. ity of tablet 18:08: 00:00 [place] 15 :00 [facility] flecainide 2019-0 2020- No 50mg Take 50 mg Univers 50 mg 09-26 by mouth. ity of tablet 18:08: 00:00 [place] 15 :00 [facility] multivitami 2019-0 2020- No 1{tbl} Take 1 U nivers n tablet 09-26 tablet by ity o f 18:08: 00:00 mouth. [place] 15 :00 [facility] rosuvastati 2019-0 2020- No 20mg Take 20 mg Univers n 20 mg 09-26 by mouth. ity of tablet 18:08: 00:00 [place] 15 :00 [facility] citalopram 2019-0 Yes Univers 40 mg 8-18 ity of tablet 00:00: [place] 00 [facility] citalopram 2019-0 Yes Univers 40 mg 8-18 ity of tablet 00:00: [place] 00 [facility] gabapentin 2019-0 Yes Univers 600 mg 8-03 ity of tablet 00:00: [place] 00 [facility] gabapentin 2019-0 Yes Univers 600 mg 8-03 ity of tablet 00:00: [place] 00 [facility] HEMOCYTE-PL 2020-0 Yes Univer s US 106 mg 7-31 ity of iron- 1 mg 00:00: [place] Cap 00 [facility] HEMOCYTE-PL 2020-0 Yes Univer s US 106 mg 7-31 ity of iron- 1 mg 00:00: [place] Cap 00 [facility] traMADoL 50 2020-0 Yes Univer s mg tablet 7-28 ity of 00:00: [place] 00 [facility] traMADoL 50 2020-0 Yes Univer s mg tablet 7-28 ity of 00:00: [place] 00 [facility] ELIQUIS 5 2020-0 2020- No Univers mg tablet 09-03 ity of 00:00: 00:00 [place] 00 :00 [facility] ELIQUIS 5 2020-0 2020- No Univers mg tablet 09-03 ity of 00:00: 00:00 [place] 00 :00 [facility] metoprolol 2020-0 Yes Univers succinate 7-07 ity of XL 50 mg 24 00:00: [place] hr tablet 00 [facility] metoprolol 2020-0 Yes Univers succinate 7-07 ity of XL 50 mg 24 00:00: [place] hr tablet 00 [facility] amoxicillin 2019-0 Yes Univer s 500 mg 6-29 ity of capsule 00:00: [place] 00 [facility] amoxicillin 2020-0 Yes Univer s 500 mg 6-29 ity of capsule 00:00: [place] [facility] atorvastati 2019-0 Yes Univer s n 10 mg 6-24 ity of tablet 00:00: [place] [facility] atorvastati 2019-0 Yes Univer s n 10 mg 6-24 ity of tablet 00:00: [place] [facility] furosemide 2019-0 Yes Univers 20 mg 6-22 ity of tablet 00:00: [place] [facility] furosemide 2019-0 Yes Univers 20 mg 6-22 ity of tablet 00:00: [place] [facility] tamsulosin 2019-0 Yes Univers 0.4 mg 24 6-15 ity of hr capsule 00:00: [place] [facility] tamsulosin 2019-0 Yes Univers 0.4 mg 24 6-15 ity of hr capsule 00:00: [place] [facility] ondansetron 2019-0 Yes Univer s 4 mg 6-12 ity of disintegrat 00:00: [place] ing tablet Medical Branch ondansetron 0 Yes Univer s 4 mg 6-12 ity of disintegrat 00:00: [place] ing tablet Medical Branch traZODone 2019-0 Yes Univers 50 mg 6-03 ity of tablet 00:00: [place] [facility] traZODone 2019-0 Yes Univers 50 mg 6-03 ity of tablet 00:00: [place] [facility] NYSTOP 2019-0 Yes Univers 100,000 6-02 ity of unit/gram 00:00: [place] powder Medical Branch NYSTOP 2019-0 Yes Univers 100,000 6-02 ity of unit/gram 00:00: [place] powder Medical Branch Benicar Benicar 0 Yes Blu [address] [facility] Xanax Xanax 2017-0 Yes Blu [address] [facility] - [facility] Xarelto Xarelto 2017-0 Yes Blu [address] [facility] 7-31 Gray with food [facility] - 00:[facility]: [facility] Metformin Metformin 2017-0 Yes Blu [address] HCl HCl 7-31 Gray with a [facility] - 00:00: meal [facility] Crestor Crestor 2017-0 Yes Blu [address] [facility] 7[facility]31 [facility] - 00:[facility]: [facility] Tamsulosin Tamsulosin Yes Chacha [address] HCl HCl [place] [facility] Simvastatin Simvastatin Yes Chacha [address] [facility] [place] in the [facility] - evening [facility]ics Gabapentin Gabapentin Yes Chacha [address] [facility] [place] [facility] Sennosides Sennosides Yes Chacha [address] [place] at bedtime [facility] - as needed [facility] Lisinopril Lisinopril Yes Chacha [address] [facility] [place] [facility] Metformin Metformin Yes Chacha [address] HCl HCl [place] with a [facility] - meal [facility] Flecainide Flecainide Yes Chacha as [facility] Acetate Acetate [place] directed L ukes - Memoria l Outpati [...] drop [facility] oline HCl oline HCl [place] into L ukes - affected Memoria eye as l needed Outpati ent Clinics Ondansetron Ondansetron Yes Chacha [address] HCl HCl [place] [facility] Olmesartan Olmesartan Yes Chacha [address] Medoxomil Medoxomil [place] L ukes - [facility]pati ent Clinics Metoprolol Metoprolol Yes Chacha [address] Succinate Succinate [place] L ukes - ER ER [facility]oria l Outpati ent Clinics Citalopram Citalopram Yes Chacha 0.[address] Hydrobromid Hydrobromid [place] [facility] - e e [facility] ent [facility]ics Aspirin 81 Aspirin 81 Yes Chacha [address] [facility] [facility] [place] [facility] Furosemide Furosemide Yes Chacha [address] [facility] Vital Signs Vital Name Observation Time Observation Value Comments Source Systolic blood 2019-09-27 18:12:00 153 mm[Hg] Univer sity of pressure [facility] Diastolic blood 2019-09-27 18:12:00 94 mm[Hg] Unive rsity of [facility] Heart rate 2019-09-27 18:09:00 88 /min Universi ty [facility] Body temperature 2019-09-27 18:09:00 37.11 [facility] [place] [facility] Respiratory rate 2019-09-27 18:09:00 18 /min Univ ersity [facility] Body height 2019-09-27 18:09:00 177.8 cm Universi ty of [facility] Body weight 2019-09-27 18:09:00 92.534 kg Universi ty of [place] [facility] [place] BMI 2019-09-27 18:09:00 29.27 kg/m2 Universi ty [facility] [place] [facility] [place] Oxygen saturation in 2019-09-27 18:09:00 98 /min University of Arterial blood by [facility] Pulse oximetry Branch Systolic blood 2019-09-27 18:12:00 153 mm[Hg] Univer sity of [facility] Diastolic blood 2019-09-27 18:12:00 94 mm[Hg] Unive rsity of [facility] Heart rate 2019-09-27 18:09:00 88 /min Universi ty [facility] Body temperature 2019-09-27 18:09:00 37.11 [facility] [place] [facility] Respiratory rate 2019-09-27 18:09:00 18 /min Univ ersity [facility] Body height 2019-09-27 18:09:00 177.8 cm Universi ty [facility] [place] [facility] [place] Body weight 2019-09-27 18:09:00 92.534 kg Universi ty [facility] [place] [facility] [place] BMI 2019-09-27 18:09:00 29.27 kg/m2 Universi ty [facility] [place] [facility] [place] Oxygen saturation in 2019-09-27 18:09:00 98 /min University of Arterial blood by [place] Kanari brien Pulse oximetry Branch Procedures Procedure Date / Time Performed Performing Clinician Freeman BAKER (PCR 2019-09-27 18:03:00 Becky Rust [facility] MOLECULAR TESTING) Medical [facility] h Encounters Start End Encounter Admission Attending Care Care Encounter Source Date/Time Date/Time Type Type Clinicians Facility Department ID 2020-11-25 Inpatient ER [facility] Neurology [id number] 15:41:49 [facility] 2020-11-25 2020-11-26 Outpatient [facility] [id number] [facility] 19:25:00 21:30:00 SANJAY 2020-06-19 2020-06-19 Outpatient [facility] [id number] [facility]00 [facility] l Outpati ent Clinics 2020-04-10 2020-04-10 Outpatient [facility] [id number] [place] 00:00:00 00:00:[address] 2020-02-22 2020-02-22 Outpatient [facility] [id number] [place] 00:00:00 00:00:[address] 2019-12-20 2019-12-20 [facility] [id number] [facility]00 [facility] 2019-09-27 2019-09-27 Urgent Pob1, Acute [facility] [id number] 12:36:33 13:27:[address] [facility] [id number] [place] [id number] Professio [phone] nal [facility] Office Building One 2019-09-27 2019-09-27 Urgent Pob1, Acute Care [facility] [id number] [facility] 12:36:33 13:27:32 Care [facility] [id number] ity of [place] [id number] [place] Professio [phone] [place] [address] Branch Office [address] One 2019-09-27 2019-09-27 Outpatient R [facility] [id number] Univers 13:00:00 13:00:00 ity of [facility] 2019-09-19 2019-09-19 [facility] [id number] 10:30:00 10:30:00 t Specialty/U Jennifer kes - Specialty rology [facility] a /Urology Clinic l [facility] ent [facility] 2017-10-20 2017-10-20 Outpatient Annelise Olguin [id number] 08:30:00 08:30:00 t [facility] 2017-09-08 2017-09-08 Outpatient Annelise Olguin [id number] 08:30:00 08:30:00 t [facility] - and [facility] a [facility] Results Test Description Test Time Test Comments Results Result Comments Source COVID-19 (PCR MOLECULAR TESTING) 2019-09-28 21:07:00 Test Item Value Reference Range Interpretation Comme nts SARS-CoV-2 PCR (test code = Not Detected Not Detected 42729-2) HAILE (test code = HAILE) [employer] SARS-CoV-2 Assay is a nucleic acid amplification test intended for the qualitative detection of RNA from SARS-CoV-2 from nasopharyngeal (AIR HOLE DRILLER) specimens. ?It is used under Emergency Use Authorization (EUA) by FDA. A positive result is indicative of the presence of SARS-CoV-2 RNA. ?Clinical correlation with patient history and other diagnostic information is necessary to determine patient infection status. A negative (Not Detected) result does not preclude SARS-CoV-2 infection. ?Clinical correlation with patient history and other diagnostic information should be used in patient management decisions. Invalid: Unable to generate a valid test result on this specimen. ?Please submit a new specimen for repeat testing if clinically indicated. Lab Interpretation (test code = Normal 14218-0) [facility]
--- NOTE | 2021-01-22 09:02 | RAD REPORT ---
EXAM DESCRIPTION: CT - CTHCSPWOC - 01/22/2021 8:44 am CLINICAL HISTORY: head injury COMPARISON: Neck Angio dated 11/25/2020; Head C Spine Mpr Wo Con dated 06/16/2018; Ct Stroke Brain Wo Cont dated 11/25/2020 TECHNIQUE: Axial 5 mm thick images of the head were obtained. Axial 2 mm thick images of the cervic al spine were obtained with sagittal and coronal reconstruction images generated and reviewed. All CT scans are performed using dose optimization technique as appropriate and may include automated exposure control or mA/KV adjustment according to patient size. FINDINGS: No epidural or subdural hematoma identified. No intraparenchymal or subarachnoid hemorrhag e seen. Hyperdensity along the peripheral tentorium is related to normal blood in the transverse sinu ses. No acute cortical based infarction as an etiology for the patient's fall history. No cortical ed cathryn or sulcal effacement. No shift of midline. Patient has a large area of encephalomalacia involving substantial portions of the frontal and temporal lobes as well as anterior parietal lobe. 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 Atrophy changes are mild with ventricles in proportion. C hronic ischemic changes minimal. Mastoid air cells and paranasal sinuses are clear. No globe or orbit abnormality seen. Cervical bodies are normal in height. Slight retrolisthesis of C3 on C4 and C4 on C5 unchanged from 2 019. Positioning of the occipital condyles, C1 lateral masses and C2 body have not changed from prior imaging. No fracture or acute cervical vertebral body finding. Significant disc space narrowing pres ent C4-5 with moderate disc space narrowing at C3-4 and C5-6. Borderline central spinal stenosis pres ent at C3-4 and C4-5. Prominent facet joint degenerative changes are present. Right greater than left bony foraminal encroachment present at C3-4 with moderate bilateral C4-5 bony foraminal stenosis. Mo derately severe right and moderate left foraminal encroachment at C5-6 with [id number] foramina l stenosis on the left at C6-7. No pathologic changes. Central canal detail is inherently limited. No paraspinal mass or hematoma. IMPRESSION: No intracranial hemorrhage is present. The above detailed CT head findings are not clear ly different from November 2020 No fracture or acute cervical spine finding. The above detailed degenerative changes are not signific antly different from 2019. Central canal detail is inherently limited.
[2021-01-22] MEDS ORDERED: LIDOCAINE 1% 20 ML MDV ONE ×2 (09:39→09:45)
--- NOTE | 2021-01-22 09:42 | RAD REPORT ---
EXAM DESCRIPTION: RAD - Lumbar Spine 3 Views - 01/22/2021 9:07 am CLINICAL HISTORY: fall, back pain COMPARISON: Hip Left 2 View dated 06/22/2019 FINDINGS: A three-view lumbar spine examination was performed. Lumbar bodies maintain normal height. No acute compression fractures seen. Degenerative left convex c urvature of the lumbar spine seen with the apex at L4. There is 3 mm left lateral subluxation of L4 r elative to L5. All disc spaces show loss in height. This is most pronounced at L4-5 and L5-S1. No pat hologic bone changes seen. Prominent facet joint degenerative change present spanning L3-S1. This is most pronounced at L5-S1. No pars defects identified. Left hip prosthesis in place only partially tricia ged. IMPRESSION: Advanced lumbar spine degenerative changes are present as detailed. No acute compression fracture identifiable. Concerns for disc herniation, central canal abnormality or occult bone process can be further evaluat ed with MR imaging.
--- NOTE | 2021-01-22 10:07 | ER ---
Nurse's Notes [facility] Name: Leonidas Corona Age: 80 yrs Sex: Male : 1940 Arrival Date: 01/22/2021 Time: 08:27 Bed 15 Private MD: Diagnosis: Unspecified injury of head, initial encounter;Laceration of [place] of the Left Ear, unspecified;Low Back Strain Presentation: 01/22 08:28 Chief complaint: EMS states: patient was ambulating to the chair this morning, when the ap3 chair slid out from under him and he fell. It is reported that the patient is currently taking an anticoagulant, and he hit the left side of his head near is left ear. Coronavirus screen: At this time, the client does not indicate any symptoms associated with coronavirus-19. Ebola Screen: No symptoms or risks identified at this time. Initial Sepsis Screen: Does the patient meet any 2 criteria? No. Patient's initial sepsis screen is negative. Does the patient have a suspected source of infection? No. Patient's initial sepsis screen is negative. Risk Assessment: Do you want to hurt yourself or someone else? Patient reports no desire to harm self or others. Onset of symptoms was January 22, 2021. 08:28 Method Of Arrival: EMS: [facility] ap3 08:28 Acuity: EFFIE 3 ap3 08:37 Care prior to arrival: None. ap3 Triage Assessment: 08:37 General: Appears in no apparent distress. comfortable, Behavior is calm, cooperative, ap3 appropriate for age. Pain: Denies pain. Neuro: Level of Consciousness is awake, alert, obeys commands, Oriented to person, place, time, situation, Appropriate for age. Respiratory: Airway is patent. Historical: - Allergies: 08:31 Bee Venom; ap3 - Home Meds: 08:31 Aspercreme (lidocaine) 4 % Topical ptmd daily [Active]; atorvastatin 10 mg Oral tab 1 ap3 tab once daily [Active]; citalopram 40 mg tab 1 tab once daily [Active]; Eliquis 5 mg Oral tab 1 tab 2 times per day [Active]; furosemide 20 mg Oral tab 1 tab once daily [Active]; gabapentin 300 mg Oral tab 3 cap twice a day [Active]; magnesium oxide 400 mg magnesium Oral tab twice a day [Active]; metformin 500 mg Oral Tb24 1 tab once daily [Active]; metoprolol succinate 50 mg Oral Tb24 1 tab once daily [Active]; tramadol 50 mg Oral tab 1 tab 4-6 hours as needed for pain [Active]; senna 8.6 mg Oral cap 2 caps nightly [Active]; Flomax 0.4 mg Oral cp24 1 cap nightly [Active]; - PMHx: 08:31 Atrial Fib; CVA; High Cholesterol; mitral valve repair; ap3 - Immunization history:: Client reports receiving the 2nd dose of the Covid vaccine. - Social history:: Smoking status: Patient denies any tobacco usage or history of. Screenin:36 Abuse screen: Denies threats or abuse. Nutritional screening: No deficits noted. ap3 Tuberculosis screening: No symptoms or risk factors identified. Fall Risk Fall in past 12 months (25 points). Secondary diagnosis (15 points) CVA, No IV (0 pts). Ambulatory Aid- None/Bed Rest/Nurse Assist (0 pts). Gait- Normal/Bed Rest/Wheelchair (0 pts) Mental Status- Oriented to own ability (0 pts). Total Doll Fall Scale indicates Low Risk Score (25-44 pts). Fall prevention measures have been instituted. Side Rails Up X 2 Placed close to Nursing Station Frequent Obs/Assesments occuring As available Patient and Family Educated on Fall Prevention Program and strategies. Assessment: 08:34 General: Appears in no apparent distress. comfortable, Behavior is calm, cooperative, ap3 appropriate for age. Pain: Denies pain. Neuro: Level of Consciousness is awake, alert, obeys commands, Oriented to person, place, time, situation, Appropriate for age Speech is normal. Cardiovascular: Patient's skin is warm and dry. Respiratory: Airway is patent Respiratory effort is even, unlabored, Respiratory pattern is regular, symmetrical. Derm: Wound noted left occipital area and left ear. Musculoskeletal:. Musculoskeletal: Reports left side weakness related to hx of stroke. 10:23 Reassessment: [facility] that ap3 their van just left their facility to take residents to their Dr. visits, and will pick the patient up promptly after its return. Vital Signs: 08:28 BP 127 / 63; Pulse 48; Resp 19; Temp 97.8(O); Pulse Ox 97% on R/A; Weight 113.4 kg; ap3 Height 5 ft. 10 in. (177.80 cm); Pain 0/10; 10:37 BP 124 / 74; Pulse 64; Pulse Ox 100% on R/A; ap3 08:28 Body Mass Index 35.87 (113.40 kg, 177.80 cm) ap3 ED Course: 08:27 Patient arrived in ED. ds1 08:27 Kennedy Gonzalez PA is PHCP. [facility] 08:27 Brian Saenz MD is Attending Physician. [facility] 08:27 Terese Dee, RN is Primary Nurse. ap3 08:30 Triage completed. ap3 08:37 Arm band placed on right wrist. ap3 08:37 Patient has correct armband on for positive identification. Bed in low position. Call ap3 light in reach. Side rails up X2. Pulse ox on. NIBP on. Door closed. Noise minimized. 08:44 CT Head C Spine In Process Unspecified. EDMS 09:07 Lumbar Spine (3 Views) XRAY In Process Unspecified. EDMS Administered Medications: 09:48 Drug: Lidocaine (1 %) 20 ml {Note: lbehind left ear.} Volume: 20 ml; Route: [facility] Infil[facility]; Outcome: 10:06 Discharge ordered by . nani 12:20 Patient left the ED. bd Signatures: Dispatcher [employer] EDMS Sarah Villalobos Joel, PA PA jmm [place], Demi ds1 Terese Dee, RN RN ap3 Au-StagerEstefani
--- NOTE | 2021-01-22 10:07 | EDPHYS ---
Physician Documentation [facility] Name: Leonidas Corona Age: 80 yrs Sex: Male : 1940 Arrival Date: 01/22/2021 Time: 08:27 Bed 15 Private MD: ED Physician Brian Saenz HPI: 01/22 08:37 This 80 yrs old Unknown Male presents to ER via EMS with complaints of Fall Injury. [facility] 08:37 Details of fall: The patient fell from an upright position, while walking. Onset: The [facility] symptoms/episode began/occurred acutely, just prior to arrival. Associated injuries: The patient sustained injury to the head. It is unknown whether or not the patient has had similar symptoms in the past. This is a 80-year-old male with history of atrial fibrillation, CVA, hyperlipidemia the presents emerged department with headache and some low back pain following a fall which occurred just prior to arrival. Patient states that he was standing and attempting to sit in a chair, the chair slipped, patient fell to his left side. Denies loss consciousness.. Historical: - Allergies: 08:31 Bee Venom; ap3 - Home Meds: 08:31 Aspercreme (lidocaine) 4 % Topical ptmd daily [Active]; atorvastatin 10 mg Oral tab 1 ap3 tab once daily [Active]; citalopram 40 mg tab 1 tab once daily [Active]; Eliquis 5 mg Oral tab 1 tab 2 times per day [Active]; furosemide 20 mg Oral tab 1 tab once daily [Active]; gabapentin 300 mg Oral tab 3 cap twice a day [Active]; magnesium oxide 400 mg magnesium Oral tab twice a day [Active]; metformin 500 mg Oral Tb24 1 tab once daily [Active]; metoprolol succinate 50 mg Oral Tb24 1 tab once daily [Active]; tramadol 50 mg Oral tab 1 tab 4-6 hours as needed for pain [Active]; senna 8.6 mg Oral cap 2 caps nightly [Active]; Flomax 0.4 mg Oral cp24 1 cap nightly [Active]; - PMHx: 08:31 Atrial Fib; CVA; High Cholesterol; mitral valve repair; ap3 - Immunization history:: Client reports receiving the 2nd dose of the Covid vaccine. - Social history:: Smoking status: Patient denies any tobacco usage or history of. ROS: 08:37 Constitutional: Negative for fever, chills, and weight loss, Cardiovascular: Negative [facility] for chest pain, palpitations, and edema, Respiratory: Negative for shortness of breath, cough, wheezing, and pleuritic chest pain. 08:37 Back: Positive for pain with movement. 08:37 Skin: Positive for laceration(s). 08:37 All other systems are negative. Exam: 08:37 Constitutional: This is a well developed, well nourished patient who is awake, alert, jmm and in no acute distress. Head/Face: atraumatic. Eyes: EOMI, no conjunctival erythema appreciated 08:37 Neck: Trachea midline, Supple Chest/axilla: Normal chest wall appearance and motion. Cardiovascular: Regular rate and rhythm. No edema appreciated Respiratory: Normal respirations, no respiratory distress appreciated Abdomen/GI: Non distended, soft Back: Normal ROM 08:37 ENT: .25 cm laceration noted to the left ear. 08:37 Skin: .25 cm laceration noted to the left ear helix. 08:37 Neuro: Orientation: is normal, Mentation: is normal, Memory: is normal. 08:37 Psych: Behavior/mood is pleasant, cooperative. Vital Signs: 08:28 BP 127 / 63; Pulse 48; Resp 19; Temp 97.8(O); Pulse Ox 97% on R/A; Weight 113.4 kg; ap3 Height 5 ft. 10 in. (177.80 cm); Pain 0/10; 10:37 BP 124 / 74; Pulse 64; Pulse Ox 100% on R/A; ap3 08:28 Body Mass Index 35.87 (113.40 kg, 177.80 cm) ap3 Laceration: 10:04 Wound Repair of .2cm ( 0.1in ) subcutaneous laceration to left ear. Distal jmm neuro/vascular/tendon intact. Anesthesia: Local anesthetic administered with .5 mls of 1% lidocaine. Wound prep: Simple cleansing with betadine by me. Skin closed with 4 5-0 Prolene using simple sutures and sterile technique. Patient tolerated well. MDM: 08:37 Patient medically screened. [facility] 10:04 Data reviewed: vital signs, nurses notes. Counseling: I had a detailed discussion with adela the patient and/or guardian regarding: the historical points, exam findings, and any diagnostic results supporting the discharge/admit diagnosis, the need for outpatient follow up, to return to the emergency department if symptoms worsen or persist or if there are any questions or concerns that arise at home. ED course: Imaging studies negative. Patient given head injury and wound care return precautions. . 01/22 08:36 Order name: CT Head C Spine; Complete Time: 09:10 jmm 01/22 08:36 Order name: Lumbar Spine (3 Views) XRAY; Complete Time: :44 jm Administered Medications: 09:48 Drug: Lidocaine (1 %) 20 ml {Note: lbehind left ear.} Volume: 20 ml; Route: rasmussen Infiltration; Disposition: 12:46 Co-signature as Attending Physician, Brian Saenz MD I agree with the assessment and azeem plan of care. Disposition Summary: 01/22/21 10:06 Discharge Ordered Location: Home jm Condition: Stable jmm Diagnosis - Unspecified injury of head, initial encounter jmm - Laceration of [place] of the Left Ear, unspecified jmm - Low Back Strain jm Followup: jm - With: Private Physician - When: 1 week - Reason: Recheck today's complaints, Continuance of care, Staple/Suture removal, Re-evaluation by your physician Discharge Instructions: - Discharge Summary Sheet jmm - Acute Back Pain, Adult jmm - Head Injury, Adult jmm - Laceration Care, Adult jm Forms: - Medication Reconciliation Form [facility] - Thank You Letter jmm - Antibiotic Education jmm - Prescription Opioid Use [facility] Signatures: Dispatcher [employer] Brian Alejo MD MD cha Mickail, Joel, PA PA jmm Prokisch, Amanda, RN RN ap3 Karen-StagerEstefani
[2021-01-22 12:25] VITALS: TEMP 97.8
[2021-01-22 12:26] VITALS: BP 124/74; O2SAT 100
== END 2021-01-22 12:20 | disposition home or self-care (01) ==
LOC: ER 08:24
PROC: 0HQ3XZZ Repair Left Ear Skin, External Approach (ICD-10-PCS; principal; 2021-01-22)
DX: S09.90XA Unspecified injury of head, initial encounter (principal); S01.312A Laceration without foreign body of left ear, initial encounter; S39.012A Strain of muscle, fascia and tendon of lower back, initial encounter; W18.30XA Fall on same level, unspecified, initial encounter; Y93.01 Activity, walking, marching and hiking; I48.91 Unspecified atrial fibrillation; Z86.73 Personal history of transient ischemic attack (TIA), and cerebral infarction without residual deficits; Z91.030 Bee allergy status
CPT/HCPCS: 70450; 72100; 72125; 99284

== ENCOUNTER 2021-07-24 19:29 | Emergency (ER) | payer OTHER ==
--- OUTSIDE RECORDS SUMMARY | 2021-07-24 19:37 | XMS REPORT | Continuity of Care Document ---
:1940 Author Organization [facility] t Address [address] [place] [address] Care Team Providers Name Role Phone DAISY Primary Care Physician Unavailable SURYA GRACIA Attending Clinician Unavailable [facility] Attending Clinician Unavailable Bernie SANDERSON Attending Clinician SURYA GRACIA Admitting Clinician Unavailable Payers Payer Name Policy Type Policy Number Effective Date Expiration Date Berenice العلي [employer] MED[employer]ARE HMO [id number] 2016 POS PPO 00:00:00 Problems Condition Condition Condition Status Onset Resolution Last Treating Co mments Source Name Details Category Date Date Treatment Clinician Date No known No known Disease Unive rs active active ity of problems problems [facility] Elbow Elbow Diagnosis Active Common pain, left pain, left Sp jerry - [facility] Closed Closed Diagnosis Active Common displaced displaced Spir it fracture fracture - [facility] of head of of head of St left left [facility] radius radius Medical with with Center routine routine healing, healing, subsequent subsequent encounter encounter Allergies, Adverse Reactions, Alerts Allergy Allergy Status Severity Reaction(s) Onset Inactive Treating Comm ents Source Name Type Date Date Clinician NO KNOWN Allergy Active [facility] NO KNOWN Drug Active Univers ALLERGIE Class ity of S [facility] Social History Social Habit Start Date Stop Date Quantity Comments Source [facility] Start Date Stop Date Source Unknown if ever smoked [facility] Medications Ordered Filled Start Stop Current Ordering Indication Dosage Frequency Signature Comments Components Source Medication Medication Date Date Medication? Clinician (SIG) Name Name metFORMIN 2020-0 Yes 500mg Take 500 Uni vers 500 mg 8-18 mg by ity of tablet 18:12: mouth. [address] olmesartan 2020-0 Yes 20mg Take 20 mg U nivers 20 mg 8-18 by mouth. ity of tablet 18:12: [address] rivaroxaban 2019-0 Yes Take by Un kiran 20 mg 8-18 mouth. ity of tablet 18:12: [address] ALPRAZolam 2019-0 Yes 2mg Take 2 mg Un kiran 2 mg tablet 818 by mouth. ity of 18:12: [address] metFORMIN 2019-0 Yes 500mg Take 500 Uni vers 500 mg 8-18 mg by ity of tablet 18:12: mouth. [address] olmesartan 2019-0 Yes 20mg Take 20 mg U nivers 20 mg 8-18 by mouth. ity of tablet 18:12: [address] rivaroxaban 2019-0 Yes Take by Un kiran 20 mg 8-18 mouth. ity of tablet 18:12: [address] ALPRAZolam 2019-0 Yes 2mg Take 2 mg Un kiran 2 mg tablet 8-18 by mouth. ity of 18:12: [address] flecainide 2019-0 2020- No 50mg Take 50 mg Univers 50 mg 09-26 0818 by mouth. ity of tablet 18:08: 00:00 [place] 15 :00 [facility] multivitami 2019-0 2020- No 1{tbl} Take 1 U nivers n tablet 09-26 tablet by ity o f 18:08: 00:00 mouth. [place] 15 :00 [facility] rosuvastati 2019-0 2019- No 20mg Take 20 mg Univers n 20 mg 09-2618 by mouth. ity of tablet 18:08: 00:00 [place] 15 :00 [facility] flecainide 2019-0 2020- No 50mg Take 50 mg Univers 50 mg 09-26 by mouth. ity of tablet 18:08: 00:00 [place] 15 :00 [facility] multivitami 2019-0 2020- No 1{tbl} Take 1 U nivers n tablet 09-26 tablet by ity o f 18:08: 00:00 mouth. [place] 15 :00 [facility] rosuvastati 2019-0 2020- No 20mg Take 20 mg Univers n 20 mg 09-26 by mouth. ity of tablet 18:08: 00:00 [place] 15 :00 [facility] citalopram 2019-0 Yes Univers 40 mg - ity of tablet 00:00: [place] 00 [facility] citalopram 2019-0 Yes Univers 40 mg 18 ity of tablet 00:00: [place] 00 [facility] gabapentin 2019-0 Yes Univers 600 mg 8- ity of tablet 00:00: [place] 00 [facility] gabapentin 2019-0 Yes Univers 600 mg 8- ity of tablet 00:00: [place] 00 [facility] HEMOCYTE-PL 2020-0 Yes Univer s US 106 mg 7-31 ity of iron- 1 mg 00:00: [place] Cap 00 [facility] HEMOCYTE-PL 2020-0 Yes Univer s US 106 mg 7-31 ity of iron- 1 mg 00:00: [place] Cap 00 [facility] traMADoL 50 2019-0 Yes Univer s mg tablet 7-28 ity of 00:00: [place] 00 [facility] traMADoL 50 2019-0 Yes Univer s mg tablet 7-28 ity of 00:00: [place] 00 [facility] ELIQUIS 5 2019-0 2020- No Univers mg tablet 09-03 ity of 00:00: 00:00 [place] 00 :00 [facility] ELIQUIS 5 2019-0 2020- No Univers mg tablet 09-03 ity of 00:00: 00:00 [place] 00 :00 [facility] metoprolol 2020-0 Yes [...] 500 mg 6-29 ity of capsule 00:00: [place] [facility] atorvastati 2019-0 Yes Univer s n 10 mg 6-24 ity of tablet 00:00: [place] [facility] atorvastati 2019-0 Yes Univer s n 10 mg 6-24 ity of tablet 00:00: [place] [facility] furosemide 2019-0 Yes Univers 20 mg 6-22 ity of tablet 00:00: [place] [facility] furosemide 2019-0 Yes Univers 20 mg 6-22 ity of tablet 00:00: [place] [facility] tamsulosin 2019-0 Yes Univers 0.4 mg 24 6-15 ity of hr capsule 00:00: [place] [facility] tamsulosin 2019-0 Yes Univers 0.4 mg 24 6-15 ity of hr capsule 00:00: [place] [facility] ondansetron 2019-0 Yes Univer s 4 mg 6-12 ity of disintegrat 00:00: [place] ing tablet Medical [facility] ondansetron 2019-0 Yes Univer s 4 mg 6-12 ity of disintegrat 00:00: [place] ing tablet Medical [facility] traZODone 2019-0 Yes Univers 50 mg 6-03 ity of tablet 00:00: [place] [facility] traZODone 2019-0 Yes Univers 50 mg 6-03 ity of tablet 00:00: [place] [facility] NYSTOP 2019-0 Yes Univers 100,000 6-02 ity of unit/gram 00:00: [place] powder Medical [facility] NYSTOP 2019-0 Yes Univers 100,000 6-02 ity of unit/gram 00:00: powder Medical Branch Benicar Benicar 2017-0 Yes Blu 1 tablet Common 09-08 [facility] 00:00: - [facility] Xanax Xanax 2017-0 Yes Blu 1 tablet Comm on 09-08 [facility] 00:00: [facility] Xarelto Xarelto 2018-0 Yes Blu 1 tablet Common 09-08 Gray with food Spirit 00:00: - [facility] Metformin Metformin 2017-0 Yes Blu 1 tablet Common HCl HCl 09-08 [facility] with a Spirit 00:00: meal - [facility] Crestor Crestor 2018-0 Yes Blu 1 tablet Common 09-08 [facility] 00:00: - [facility] Tamsulosin Tamsulosin Yes Chacha 1 capsule Common HCl HCl Uma [facility] Simvastatin Simvastatin Yes Chacha 1 tablet Common Uma in the Spirit evening [facility] Gabapentin Gabapentin Yes Chacha 1 capsule Common Mesic [facility] Sennosides Sennosides Yes Chacha 2 tablets Common Uma at bedtime Spiri t as needed [facility] Lisinopril Lisinopril Yes Chacha 1 tablet Common Uma [facility] Metformin Metformin Yes Chacha 1 tablet Common HCl HCl Uma with a Spirit meal [facility] Flecainide Flecainide Yes Chacha as Co mmon Acetate Ac[facility]ate [facility] Apixaban Apixaban Yes Chacha as Common Uma directed [facility] Magnesium Magnesium Yes Chacha 1 tablet Common Oxide Oxide Mesic as needed Spir it [facility] Trazodone Trazodone Yes Chacha 1 tablet Common HCl HCl Uma at bedtime Spiri t as needed [facility] Tetrahydroz Tetrahydroz Yes Chacha 1 drop Common oline HCl oline HCl Uma into S pirit affected - [facility] eye as [facility] Ondansetron Ondansetron Yes Chacha 1 tablet Common HCl HCl Mesic [facility] Olmesartan Olmesartan Yes Chacha 1 tablet Common Medoxomil Medoxomil Mesic S pirit [facility] Metoprolol Metoprolol Yes Chacha 1 tablet Common Succinate Succinate Uma S pirit ER ER [facility] Citalopram Citalopram Yes Chacha 0.5 tablet Common Hydrobromid Hydrobromid Mesic [facility] e e [facility] Aspirin 81 Aspirin 81 Yes Chacha 1 tablet Common Mesic Spirit [facility] Furosemide Furosemide Yes Chacha 1 tablet Common Mesic [facility] Vital Signs Vital Name Observation Time Observation Value Comments Source Systolic blood 2019-09-27 18:12:00 153 mm[Hg] Univer sity of pressure [place] [facility] Diastolic blood 2019-09-27 18:12:00 94 mm[Hg] Unive rsity of pressure [place] [facility] Heart rate 2019-09-27 18:09:00 88 /min Universi ty of [place] [facility] Body temperature 2019-09-27 18:09:00 37.11 Tierra Univ ersity of [place] [facility] Respiratory rate 2019-09-27 18:09:00 18 /min Univ ersity of [place] [facility] Body height 2019-09-27 18:09:00 177.8 cm Universi ty [facility] [place] [facility] Body weight 2019-09-27 18:09:00 92.534 kg Universi ty [facility] [place] [facility] BMI 2019-09-27 18:09:00 29.27 kg/m2 Universi ty of [place] [facility] Oxygen saturation in 2019-09-27 18:09:00 98 /min University of Arterial blood by [facility] Pulse oximetry Branch Systolic blood 2019-09-27 18:12:00 153 mm[Hg] Univer sity of pressure [place] [facility] Diastolic blood 2019-09-27 18:12:00 94 mm[Hg] Unive rsity of pressure [place] [facility] Heart rate 2019-09-27 18:09:00 88 /min Universi ty of [place] [facility] Body temperature 2019-09-27 18:09:00 37.11 Tierra Univ ersity of [place] [facility] Respiratory rate 2019-09-27 18:09:00 18 /min Univ ersity of [place] [facility] Body height 2019-09-27 18:09:00 177.8 cm Universi ty [facility] [place] [facility] Body weight 2019-09-27 18:09:00 92.534 kg Universi ty [facility] [place] [facility] BMI 2019-09-27 18:09:00 29.27 kg/m2 Universi ty [facility] [place] [facility] Oxygen saturation in 2019-09-27 18:09:00 98 /min University of Arterial blood by [facility] Pulse oximetry Branch Procedures Procedure Date / Time Performed Performing Clinician Sournicolette e COVID-19 (PCR 2019-09-27 18:03:00 Becky Rust [facility] MOLECULAR TESTING) Medical Branc h Encounters Start End Encounter Admission Attending Care Care Encounter Source Date/Time Date/Time Type Type Clinicians Facility Department ID 2021-03-06 Outpatient STLMLC STLMLC [id number] Common 11:36:14 [id number] [facility] 2020-11-25 [facility] [id number] 15:41:49 [facility] 2020-11-25 2020-11-26 Outpatient SMART, [facility] [id number] [facility] 19:25:00 21:30:00 SANJAY 2020-06-19 2020-06-19 Outpatient STLMLC STLMLC [id number] Common 00:00:00 00:00:00 [facility] 2020-04-10 2020-04-10 Outpatient [facility] [id number] [place] 00:00:00 00:00:[address] 2020-02-22 2020-02-22 Outpatient [facility] [id number] [place] 00:00:00 00:00:[address] 2019-12-20 2019-12-20 Outpatient STLMLC STLMLC [id number] Common 00:00:00 00:00:00 [facility] 2019-09-27 2019-09-27 Urgent Pob1, Acute [facility] [id number] 12:36:33 13:27:32 [facility] [id number] [place] [id number] Professio [phone] [place] [address] [address] 2019-09-27 2019-09-27 Urgent Pob1, Acute Care [facility] [id number] [facility] 12:36:33 13:27:32 [facility] [id number] ity [facility] [id number] [place] as Professio [phone] Ia dical [place] [address] [address] 2019-09-27 2019-09-27 Outpatient [facility] [id number] Univers 13:00:00 13:00:00 ity of [facility] 2019-09-19 2019-09-19 Outpatient Annelise Olguin [id number] Common 10:30:00 10:30:00 t Specialty/U Sp jerry Specialty rology - [facility] 2017-10-20 2017-10-20 Outpatient Annelise Olguin [id number] Common 08:30:00 08:30:00 [facility] 2017-09-08 2017-09-08 Outpatient Annelise Olguin [id number] Common 08:30:00 08:30:00 [facility] Results Test Description Test Time Test Comments Results Result Comments Source COVID-19 (PCR MOLECULAR TESTING) 2019-09-28 21:07:00 Test Item Value Reference Range Interpretation Comme nts SARS-CoV-2 PCR (test code = Not Detected Not Detected 21858-6) HAILE (test code = HAILE) [employer] Aptima SARS-CoV-2 Assay is a nucleic acid amplification test intended for the qualitative detection of RNA from SARS-CoV-2 from nasopharyngeal ([employer]) specimens. ?It is used under Emergency Use [...] indicated. Lab Interpretation (test code = Normal 89294-1) [facility]
[2021-07-24] MEDS ORDERED: ACETAMINOPHEN 325 MG TABLET ONE (20:30)
--- NOTE | 2021-07-24 20:58 | RAD REPORT ---
EXAM DESCRIPTION: CT - Head C Spine Cap Wo Con - 07/24/2021 8:37 pm CLINICAL HISTORY: trauma COMPARISON: Head C Spine Cap Wo Con dated 03/14/2020; Neck Angio dated 11/25/2020; Ct Stroke Brain Wo Cont dated 11/25/2020 TECHNIQUE: CT head without contrast. CT cervical spine without contrast with coronal and sagittal reformatted images. CT chest, abdomen and pelvis with coronal and sagittal reformatted images of the spine. All CT scans are performed using dose optimization technique as appropriate and may include automated exposure control or mA/KV adjustment according to patient size. FINDINGS: CT HEAD WITHOUT CONTRAST: No intracranial hemorrhage, hydrocephalus or extra-axial fluid collection. Remote right MCA territory infarct. The paranasal sinuses and mastoids are clear. The calvarium is intact. CT CERVICAL SPINE WITHOUT CONTRAST: No acute fracture of the cervical spine. Retrolisthesis of C3 on C4 and C4 on C5. The prevertebral soft tissues are normal in thickness. CT CHEST, ABDOMEN, PELVIS: Thorax: Chest Wall: No abnormal mass Lungs: No acute abnormality. Pleura: No effusions or pneumothorax. Deena/Mediastinum: No lymphadenopathy. Aorta/Pulmonary Arteries: Unremarkable Heart: Cardiomegaly. Abdomen/Pelvis: Liver: No acute abnormality or suspicious lesions. Biliary: No biliary ductal dilatation. Stomach: No significant focal abnormality. Duodenum: No significant focal abnormality. Pancreas: No significant abnormality. Spleen: No significant abnormality. Adrenal: No suspicious lesions. Kidney/ureter: No hydronephrosis. No renal calculi. Retroperitoneum: No retroperitoneal adenopathy. Vascular: No aneurysm. Bowel: Diverticulosis. No diverticulitis. Peritoneum: No ascites or free air. Bladder: Grossly unremarkable. Reproductive: No adnexal masses. Bones: Sternotomy. Subacute appearing L1 compression fracture at approximately 30% loss of height. Other: n/a IMPRESSION: 1. No acute intracranial abnormality. 2. No acute fracture or traumatic malalignment of the cervical spine. 3. No evidence of significant acute trauma to the chest, abdomen, or pelvis. 4. Subacute appearing L1 compression fracture.
--- NOTE | 2021-07-24 21:07 | RAD REPORT ---
EXAM DESCRIPTION: RAD - Forearm Left - 07/24/2021 8:34 pm CLINICAL HISTORY: SWELLING COMPARISON: No comparisons FINDINGS/IMPRESSION: No acute fracture of the forearm. Degenerative changes in the carpus and at the base of the thumb.
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
[2021-07-24 22:19] VITALS: O2SAT 98
[2021-07-24 22:21] VITALS: BP 143/71; TEMP 97.9
== END 2021-07-24 21:55 | disposition home or self-care (01) ==
LOC: ER 19:29
DX: S32.019A Unspecified fracture of first lumbar vertebra, initial encounter for closed fracture (principal); S39.012A Strain of muscle, fascia and tendon of lower back, initial encounter; S29.012A Strain of muscle and tendon of back wall of thorax, initial encounter; W10.9XXA Fall (on) (from) unspecified stairs and steps, initial encounter; E78.00 Pure hypercholesterolemia, unspecified; I48.91 Unspecified atrial fibrillation; Z86.73 Personal history of transient ischemic attack (TIA), and cerebral infarction without residual deficits; Z79.01 Long term (current) use of anticoagulants; Z91.030 Bee allergy status
CPT/HCPCS: 70450; 71250; 72125

== ENCOUNTER 2023-06-07 00:31 | Emergency (ER) | payer OTHER ==
[2023-06-07 00:55] LABS: Absolute Eosinophils 0.3 K/uL (0-0.5); Absolute Monocytes 0.7 K/uL (0.1-1.3); Absolute Neutrophil 5.7 K/uL (1.8-8.0); Basophils % 0.5 % (0-1.3); Eosinophils % 3.4 % (0-4.4); Hematocrit 37.5 % (39.6-49.0); Hemoglobin 12.6 g/dL (13.6-17.9); Lymphocytes % 13.1 % (15.3-44.8); MCHC 33.7 g/dL (32.0-36.0); MCV 95.1 fL (80-100); MPV 8.4 fL (7.6-11.3); Monocytes % 9.4 % (3.3-12.3); Neutrophils % 73.6 % (41.7-73.7); Nucleated Red Blood Cells % 0.1 % (0-0); Platelets 192 thou/uL (152-406); RBC Red Blood Cell Count 3.94 M/uL (4.33-5.43); Red Cell Distribution Width 13.8 % (12.1-15.2)
[2023-06-07 01:02] LABS: PT Prothrombin Time 17.7 SECONDS (9.5-12.5); Protime INR 1.63
--- NOTE | 2023-06-07 01:02 | EDPHYS ---
Physician Documentation [facility] Name: Leonidas Corona Age: 83 yrs Sex: Male : 1940 Arrival Date: 06/07/2023 Time: 00:31 Bed 16 Private MD: ED Physician Brian Saenz HPI: 06/06 00:47 This 83 yrs old Male presents to ER via Unassigned with complaints of left leg azeem weakness. 00:47 The patient presents with decreased range of motion. The complaints affect the lateral azeem aspect of left thigh, lateral aspect of left knee, lateral aspect of left calf, left hamstring, posterior aspect of left knee, left calf, medial aspect of left thigh, medial aspect of left knee, medial aspect of left calf, left quadriceps, left knee and left samuels. Context: The problem was sustained at home, resulted from an unknown cause. Onset: The symptoms/episode began/occurred just prior to arrival. Modifying factors: The symptoms are alleviated by nothing. the symptoms are aggravated by nothing. Associated signs and symptoms: Pertinent positives: weakness, of the left leg. The patient's problem is reported as paresthesias, in left lower extremity. The symptoms are alleviated by nothing. The symptoms are aggravated by standing. Treatment prior to arrival includes: no previous treatment. Severity of symptoms: At their worst the symptoms were moderate in the emergency department the symptoms are unchanged. Historical: - Allergies: 01:58 Bee Venom; pf1 - PMHx: 01:58 Atrial Fib; CVA; High Cholesterol; mitral valve repair; pf1 02:20 Congestive heart failure; jb4 - PSHx: 02:00 Appendectomy; Cardiac Bypass; Right Leg Surgery; jw7 - Immunization history:: Adult Immunizations up to date, 3 doses of moderna Last tetanus immunization: > 10 years ago Flu vaccine is up to date. - Infectious Disease History:: Denies. - Family history:: not pertinent. - Social history:: Smoking status: Patient denies any tobacco usage or history of. Patient uses alcohol, occasionally. Patient/guardian denies using street drugs. ROS: 00:47 Constitutional: Negative for fever, chills, and weight loss, Eyes: Negative for injury, azeem pain, redness, and discharge, ENT: Negative for injury, pain, and discharge, Neck: Negative for injury, pain, and swelling, Cardiovascular: Negative for chest pain, palpitations, and edema, Respiratory: Negative for shortness of breath, cough, wheezing, and pleuritic chest pain, Abdomen/GI: Negative for abdominal pain, nausea, vomiting, diarrhea, and constipation, Back: Negative for injury and pain, : Negative for injury, bleeding, discharge, and swelling, MS/Extremity: Negative for injury and deformity, Skin: Negative for injury, rash, and discoloration, Psych: Negative for depression, anxiety, suicide ideation, homicidal ideation, and hallucinations, Allergy/Immunology: Negative for hives, rash, and allergies, Endocrine: Negative for neck swelling, polydipsia, polyuria, polyphagia, and marked weight changes, Hematologic/Lymphatic: Negative for swollen nodes, abnormal bleeding, and unusual bruising, 00:47 Neuro: Positive for dizziness, weakness, of the left leg, Exam: 00:47 Constitutional: This is a well developed, well nourished patient who is awake, alert, azeem and in no acute distress. Head/Face: Normocephalic, atraumatic. Eyes: Pupils equal round and reactive to light, extra-ocular motions intact. Lids and lashes normal. Conjunctiva and sclera are non-icteric and not injected. Cornea within normal limits. Periorbital areas with no swelling, redness, or edema. ENT: Nares patent. No nasal discharge, no septal abnormalities noted. Tympanic membranes are normal and external auditory canals are clear. Oropharynx with no redness, swelling, or masses, exudates, or evidence of obstruction, uvula midline. Mucous membranes moist. Neck: Trachea midline, no thyromegaly or masses palpated, and no cervical lymphadenopathy. Supple, full range of motion without nuchal rigidity, or vertebral point tenderness. No Meningismus. Chest/axilla: Normal chest wall appearance and motion. Nontender with no deformity. No lesions are appreciated. Cardiovascular: Regular rate and rhythm with a normal S1 and S2. No gallops, murmurs, or rubs. Normal PMI, no JVD. No pulse deficits. Respiratory: Lungs have equal breath sounds bilaterally, clear to auscultation and percussion. No rales, rhonchi or wheezes noted. No increased work of breathing, no retractions or nasal flaring. Abdomen/GI: Soft, non-tender, with normal bowel sounds. No distension or tympany. No guarding or rebound. No evidence of tenderness throughout. Back: No spinal tenderness. No costovertebral tenderness. Full range of motion. Male : Normal genitalia with no discharge or lesions. Skin: Warm, dry with normal turgor. Normal color with no rashes, no lesions, and no evidence of cellulitis. Psych: Awake, alert, with orientation to person, place and time. Behavior, mood, and affect are within normal limits. 00:47 Musculoskeletal/extremity: ROM: limited active range of motion, in the left leg, Circulation is intact in all extremities. Compartment Syndrome exam of affected extremity: is normal. Weight bearing: is unable to bear weight, DVT Exam: No signs of deep vein thrombosis. no pain, no swelling, no tenderness, negative Homans' sign noted on exam, no appreciated bluish discoloration, no erythema, no increased warmth, Vital Signs: 00:31 BP 116 / 80; Pulse 71; Resp 20; Temp 99.6; Pulse Ox 96% on R/A; Weight 99.79 kg; Height pf1 5 ft. 8 in. ; Pain 8/10; 01:00 BP 127 / 68; Pulse 85; Resp 22; Pulse Ox 95% on R/A; pf1 02:02 BP 123 / 80; Pulse 77; Resp 20; Temp 98.8; Pulse Ox 97% on R/A; pf1 00:31 Body Mass Index 33.45 (99.79 kg, 172.72 cm) pf1 00:31 Pain Scale: Adult pf1 NIH Stroke Scale Scores: 00:35 NIHSS Score: 8 pf1 00:58 NIHSS Score: 5 azeem 01:30 NIHSS Score: 8 pf1 02:30 NIHSS Score: 8 pf1 Verónica Coma Score: 00:58 Eye Response: spontaneous(4). Motor Response: obeys commands(6). Verbal Response: azeem oriented(5). Total: 15. MDM: 00:35 Patient medically screened. azeem 00:56 Differential diagnosis: paralysis. Data reviewed: vital signs, nurses notes, EMS azeem record, lab test result(s), EKG, radiologic studies, CT scan, plain films. Consideration of Admission/Observation Patient was admitted/placed on observation. Escalation of care including admission/observation considered. I considered the following discharge prescriptions or medication management in the emergency department Medications were administered in the Emergency Department. See MAR. Independent interpretation of the following test(s) in the Emergency Department EKG: See my EKG interpretation above. Test considered but Not performed: MRI: no mri brain , not available. 06/06 00:38 Order name: Basic Metabolic Panel; Complete Time: 01:47 [facility] 06/06 00:38 Order name: CBC with Diff; Complete Time: 01:47 [facility] 06/06 00:38 Order name: LFT's; Complete Time: :47 [facility] 06/06 00:38 Order name: Magnesium; Complete Time: 01:47 [facility] 06/06 00:38 Order name: NT PRO-BNP; Complete Time: :47 [facility] 06/06 00:38 Order name: PT-INR; Complete Time: :47 [facility] 06/06 00:38 Order name: Troponin HS; Complete Time: 01:47 [facility] 06/06 00:38 Order name: CRP; Complete Time: 01:47 [facility] 06/06 00:54 Order name: Glucose, Ancillary Testing; Complete Time: 01:47 [facility] 06/06 01:46 Order name: Flu pf1 06/06 01:46 Order name: SARS-COV-2 Antigen Rapid 1 06/06 00:38 Order name: XRAY Chest (1 view) [facility] 06/06 00:38 Order name: CT Stroke Brain w/o Contrast [facility] 06/06 00:38 Order name: CT Head Angio [facility] 06/06 00:38 Order name: CT Neck Angio [facility] 06/06 00:38 Order name: Cardiac monitoring; Complete Time: 01:21 [facility] 06/06 00:38 Order name: EKG - Nurse/Tech; Complete Time: 01:21 [facility] 06/06 00:38 Order name: IV Saline Lock; Complete Time: 01:04 [facility] 06/06 00:38 Order name: Labs collected and sent; Complete Time: 01:04 [facility] 06/06 00:38 Order name: O2 Per Protocol; Complete Time: 01:04 [facility] 06/06 00:38 Order name: O2 Sat Monitoring; Complete Time: 01:04 azeem Administered Medications: 01:10 Drug: NS 0.9% IV 1000 ml IV at 1 bolus Per protocol; 1000 mL bolus Route: IV; Rate: 1 pf1 bolus; Site: right forearm; 01:45 Follow up: Response: No adverse reaction; Marked relief of symptoms pf1 02:00 Follow up: IV Status: Completed infusion; IV Intake: 1000ml pf1 01:10 Drug: foLIC Acid IVPB 1 mg IVPB once Route: IVPB; Site: right forearm; pf1 01:45 Follow up: Response: No adverse reaction; IV Status: Completed infusion pf1 Disposition Summary: 06/07/23 01:01 Transfer Ordered Notes: Transfer Location: [facility] azeem Reason: Higher level of care azeem Condition: Stable azeem Problem: new azeem Symptoms: have improved azeem Accepting Physician: to nicu(06/07/23 02:33) pf1 Diagnosis - Cerebral infarction, unspecified - left leg weakness azeem - [facility] (current) use of anticoagulants azeem - Chronic atrial fibrillation azeem Forms: - Medication Reconciliation Form azeem - SBAR form azeem NIH Stroke Scale - NIH Stroke Score Date: 06/07/2023 Time: 00:35 Total Score = 8 10. Dysarthria (speech clarity - read or repeat words) - 0(Normal) 11. Extinction and Inattention (visual/tactile/auditory/spatial/personal) - 0(No abnormality) 1a. Level of Consciousness (LOC) - 0(Alert) 1b. Level of Consciousness (LOC) (Month \T\ Age) - 0(Both) 1c. LOC Commands (Open \T\ Closes Eyes/[employer] Learning Support Teacher) - 0(Both) 2. Best Gaze (Lateral Gaze Paresis) - 0(Normal) 3. Visual Field Loss - 0(No visual loss) 4. Facial Palsy - 0(Normal) 5a. Left Arm: Motor (10-second hold) - 3(No effort against gravity) 5b. Right Arm: Motor (10-second hold) - 0(No drift) 6a. Left Leg: Motor (5-second hold - always test supine) - 3(No effort against gravity) 6b. Right Leg: Motor (5-second hold - always test supine) - 0(No drift) 7. Limb Ataxia (finger/nose \T\ heel/samuels - test with eyes open) - 2(Present in two limbs) 8. Sensory Loss (pinprick arms/legs/face) - 0(Normal) 9. Best Language: Aphasia (description/naming/reading) - 0(No aphasia) Initials: pf1 NIH Stroke Scale - NIH Stroke Score Date: 06/07/2023 Time: 00:58 Total Score = 5 10. Dysarthria (speech clarity - read or repeat words) - 0(Normal) 11. Extinction and Inattention (visual/tactile/auditory/spatial/personal) - 0(No abnormality) 1a. Level of Consciousness (LOC) - 0(Alert) 1b. Level of Consciousness (LOC) (Month \T\ Age) - 0(Both) 1c. LOC Commands (Open \T\ Closes Eyes/High School Learning Support Teacher) - 0(Both) 2. Best Gaze (Lateral Gaze Paresis) - 0(Normal) 3. Visual Field Loss - 0(No visual loss) 4. Facial Palsy - 0(Normal) 5a. Left Arm: Motor (10-second hold) - 0(No drift) 5b. Right Arm: Motor (10-second hold) - 0(No drift) 6a. Left Leg: Motor (5-second hold - always test supine) - 3(No effort against gravity) 6b. Right Leg: Motor (5-second hold - always test supine) - 0(No drift) 7. Limb Ataxia (finger/nose \T\ heel/samuels - test with eyes open) - 2(Present in two limbs) 8. Sensory Loss (pinprick arms/legs/face) - 0(Normal) 9. Best Language: Aphasia (description/naming/reading) - 0(No aphasia) Initials: [facility] NIH Stroke Scale - NIH Stroke Score Date: 06/07/2023 Time: 01:30 Total Score = 8 10. Dysarthria (speech clarity - read or repeat words) - 0(Normal) 11. Extinction and Inattention (visual/tactile/auditory/spatial/personal) - 0(No abnormality) 1a. Level of Consciousness (LOC) - 0(Alert) 1b. Level of Consciousness (LOC) (Month \T\ Age) - 0(Both) 1c. LOC Commands (Open \T\ Closes Eyes/High School Learning Support Teacher) - 0(Both) 2. Best Gaze (Lateral Gaze Paresis) - 0(Normal) 3. Visual Field Loss - 0(No visual loss) 4. Facial Palsy - 0(Normal) 5a. Left Arm: Motor (10-second hold) - 3(No effort against gravity) 5b. Right Arm: Motor (10-second hold) - 0(No drift) 6a. Left Leg: Motor (5-second hold - always test supine) - 3(No effort against gravity) 6b. Right Leg: Motor (5-second hold - always test supine) - 0(No drift) 7. Limb Ataxia (finger/nose \T\ heel/samuels - test with eyes open) - 2(Present in two limbs) 8. Sensory Loss (pinprick arms/legs/face) - 0(Normal) 9. Best Language: Aphasia (description/naming/reading) - 0(No aphasia) Initials: pf1 NIH Stroke Scale - NIH Stroke Score Date: 06/07/2023 Time: 02:30 Total Score = 8 10. Dysarthria (speech clarity - read or repeat words) - 0(Normal) 11. Extinction and Inattention (visual/tactile/auditory/spatial/personal) - 0(No abnormality) 1a. Level of Consciousness (LOC) - 0(Alert) 1b. Level of Consciousness (LOC) (Month \T\ Age) - 0(Both) 1c. LOC Commands (Open \T\ Closes Eyes/High School Learning Support Teacher) - 0(Both) 2. Best Gaze (Lateral Gaze Paresis) - 0(Normal) 3. Visual Field Loss - 0(No visual loss) 4. Facial Palsy - 0(Normal) 5a. Left Arm: Motor (10-second hold) - 3(No effort against gravity) 5b. Right Arm: Motor (10-second hold) - 0(No drift) 6a. Left Leg: Motor (5-second hold - always test supine) - 3(No effort against gravity) 6b. Right Leg: Motor (5-second hold - always test supine) - 0(No drift) 7. Limb Ataxia (finger/nose \T\ heel/samuels - test with eyes open) - 2(Present in two limbs) 8. Sensory Loss (pinprick arms/legs/face) - 0(Normal) 9. Best Language: Aphasia (description/naming/reading) - 0(No aphasia) Initials: pf1 Signatures: Dispatcher [employer] EDMS Brian Saenz MD MD cha Bryson, James, RN RN jb4 Kandis Hammond, SHAY RN jw7 Hedy Swenson, SHAY RN pf1 Corrections: (The following items were deleted from the chart) 00:38 00:38 BASIC METABOLIC PANEL+C.LAB.BRZ ordered. EDMS EDMS 00:38 00:38 CBC+H.LAB.BRZ ordered. EDMS EDMS 00:38 00:38 HEPATIC FUNCTION+C.LAB.BRZ ordered. EDMS EDMS 00:38 00:38 MAGNESIUM+C.LAB.BRZ ordered. EDMS EDMS 00:38 00:38 PROBNP+C.LAB.BRZ ordered. EDMS EDMS 00:38 00:38 PROTIME (+INR)+COAG.LAB.BRZ ordered. EDMS EDMS 00:38 00:38 Troponin High Sensitivity+C.LAB.BRZ ordered. EDMS EDMS 00:38 00:38 C-REACTIVE PROTEIN+C.LAB.BRZ ordered. EDMS EDMS 00:38 00:38 Urinalysis+U.LAB.BRZ ordered. EDMS EDMS 00:38 00:38 CT-STROKE BRAIN W/O CONTRAST+CT.RAD.BRZ ordered. EDMS EDMS 00:39 00:38 Head Angio+CT.RAD.BRZ ordered. EDMS EDMS 00:39 00:39 Neck Angio+CT.RAD.BRZ ordered. EDMS EDMS 01:13 01:01 to nicu azeem azeem 01:46 01:46 Influenza Screen (A \T\ B)+BA.LAB.BRZ ordered. EDMS EDMS 01:46 01:46 SARS-COV-2 Antigen Rapid+I.LAB.BRZ ordered. EDMS EDMS 02:33 01:13 to nicu azeem pf1
[2023-06-07] MEDS ORDERED: FOLIC ACID 5 MG/ML VIAL ONE (01:14)
[2023-06-07] MEDS ORDERED: NA CHLORIDE 0.9% 1,000 ML ONE (01:14)
[2023-06-07 01:23] LABS: Albumin 3.4 g/dL (3.4-5.0); Albumin/Globulin Ratio 0.9 (1.1-1.8); Anion Gap 7.8 mEq/L (5.0-15.0); Bilirubin Direct 0.2 mg/dL (0-0.2); Bilirubin Indirect, Calculated 0.3 mg/dL (0.2-0.8); Bilirubin Total 0.5 mg/dL (0.2-1.0); C-Reactive Protein 17.9 mg/L (<3.00); Globulin 3.7 g/dL (2.3-3.5); Magnesium 2.2 mg/dL (1.6-2.4); Potassium 3.8 mEq/L (3.5-5.1); Protein, Total 7.1 g/dL (6.4-8.2); Troponin High Sensitivity 4.6 pg/mL (<58.9)
[2023-06-07 02:21] LABS: SARS-CoV-2 Antigen CONTROL BLUE LINE VIS/BG OK; SARS-CoV-2 Antigen Rapid Res Negative (Negative)
--- NOTE | 2023-06-07 02:35 | ER ---
Nurse's Notes [facility] Name: Leonidas Corona Age: 83 yrs Sex: Male : 1940 Arrival Date: 06/07/2023 Time: 00:31 Bed 16 Private MD: Diagnosis: Cerebral infarction, unspecified-left leg weakness;correction (current) use of anticoagulants;Chronic atrial fibrillation Presentation: 06/06 00:31 Chief complaint: Patient states: left side weakness, worse than normal with pf1 dizziness,onset 2200 with right side hip pain of 8. Patient also C/O cough with nasal drainage with green drainage from bilateral eyes onset yesterday. 00:31 Coronavirus screen: Client denies travel out of the [place] in the last 14 days. Client pf1 presents with at least one sign or symptom that may indicate coronavirus-19. Ebola Screen: Patient negative for fever greater than or equal to 101.5 degrees Fahrenheit, and additional compatible Ebola Virus Disease symptoms. Initial Sepsis Screen: Does the patient meet any 2 criteria? No. Patient's initial sepsis screen is negative. Does the patient have a suspected source of infection? No. Patient's initial sepsis screen is negative. Risk Assessment: Do you want to hurt yourself or someone else? Patient reports no desire to harm self or others. Onset of symptoms was June 06, 2023. 00:31 Method Of Arrival: EMS: [facility] pf1 00:31 Acuity: EFFIE 2 pf1 00:31 Care prior to arrival: IV initiated. 20 GA, in the right forearm. pf1 Triage Assessment: 00:35 General: Appears in no apparent distress. comfortable, well developed, Behavior is pf1 calm, cooperative, appropriate for age, quiet. 00:35 Pain: Complains of pain in right hip Pain currently is 8 out of 10 on a pain scale. pf1 EENT: Eyes with exudate noted from bilateral eye have green drainage Sclera/Cornea are reddened in outer aspect of conjuctiva of right eye, iris of right eye, inner aspect of conjuctiva of right eye, outer aspect of conjuctiva of left eye, iris of left eye and inner aspect of conjunctiva of left eye. Neuro: Level of Consciousness is awake, alert, obeys commands, Oriented to person, place, time, situation, [employer] Labor are weak on left Weakness Paralysis in left arm(s) leg(s) Gait is unsteady, Speech is normal, Reports dizziness, weakness in left leg weakness,more than normal. Cardiovascular: Capillary refill < 3 seconds Patient's skin is warm and dry. Cardiovascular: Respiratory: No deficits noted. Airway is patent Respiratory effort is even, unlabored, Respiratory pattern is regular, symmetrical. GI: No deficits noted. No signs and/or symptoms were reported involving the gastrointestinal system. Abdomen is round non-distended, Bowel sounds present X 4 quads. Abd is soft and non tender X 4 quads. : No deficits noted. No signs and/or symptoms were reported regarding the genitourinary system. Derm:. Musculoskeletal: Circulation, motion, and sensation intact. Capillary refill < 3 seconds, Swelling present in left leg and left foot Reports weakness in left leg. Historical: - Allergies: 01:58 Bee Venom; pf1 - PMHx: 01:58 Atrial Fib; CVA; High Cholesterol; mitral valve repair; pf1 02:20 Congestive heart failure; jb4 - PSHx: 02:00 Appendectomy; Cardiac Bypass; Right Leg Surgery; jw7 - Immunization history:: Adult Immunizations up to date, 3 doses of moderna Last tetanus immunization: > 10 years ago Flu vaccine is up to date. - Infectious Disease History:: Denies. - Family history:: not pertinent. - Social history:: Smoking status: Patient denies any tobacco usage or history of. Patient uses alcohol, occasionally. Patient/guardian denies using street drugs. Screenin:35 [facility] ED Fall Risk Assessment (Adult) History of falling in the last 3 months, pf1 including since admission No falls in past 3 months (0 pts) Confusion or Disorientation No (0 pts) Intoxicated or Sedated No (0 pts) Impaired Gait Yes (1 pt) Mobility Assist Device Used Yes (1 pt) Altered Elimination No (0 pt) Score/Fall Risk Level 0 - 2 = Low Risk Oriented to surroundings, Maintained a safe environment, Educated pt \T\ family on fall prevention, incl call for assistance when getting out of bed, Assessed \T\ reinforced patient's understanding of fall precautions, Provided non-skid footwear, Hourly rounding (assess needs \T\ fall precautionary measures) done, Used ambulatory aids as needed (educated on \T\ assisted with), Used gait belt as appropriate. Abuse screen: Denies threats or abuse. Nutritional screening: No deficits noted. Tuberculosis screening: No symptoms or risk factors identified. Assessment: 01:42 Reassessment: Patient appears in no apparent distress at this time. Patient and/or pf1 family updated on plan of care and expected duration. Pain level reassessed. Patient is alert, oriented x 3, equal unlabored respirations, skin warm/dry/pink. 02:00 Reassessment: Patient appears in no apparent distress at this time. Patient and/or pf1 family updated on plan of care and expected duration. Pain level reassessed. Patient is alert, oriented x 3, equal unlabored respirations, skin warm/dry/pink. 02:10 Reassessment: Patient report given to Juan Mckeon RN. pf1 Vital Signs: 00:31 BP 116 / 80; Pulse 71; Resp 20; Temp 99.6; Pulse Ox 96% on R/A; Weight 99.79 kg; Height pf1 5 ft. 8 in. ; Pain 8/10; 01:00 BP 127 / 68; Pulse 85; Resp 22; Pulse Ox 95% on R/A; pf1 02:02 BP 123 / 80; Pulse 77; Resp 20; Temp 98.8; Pulse Ox 97% on R/A; pf1 00:31 Body Mass Index 33.45 (99.79 kg, 172.72 cm) pf1 00:31 Pain Scale: Adult pf1 Rush[place] Coma Score: 00:58 Eye Response: spontaneous(4). Motor Response: obeys commands(6). Verbal Response: zaeem oriented(5). Total: 15. NIH Stroke Scale Scores: 00:35 NIHSS Score: 8 pf1 00:58 NIHSS Score: 5 azeem 01:30 NIHSS Score: 8 pf1 02:30 NIHSS Score: 8 pf1 ED Course: 00:31 Arm band placed on right wrist. pf1 00:32 Patient has correct armband on for positive identification. Placed in gown. Bed in low pf1 position. Call light in reach. Side rails up X2. 00:33 Patient arrived in ED. ty 00:35 Brian Saenz MD is Attending Physician. azeem 00:35 Triage completed. pf1 00:35 Door closed. Noise minimized. Warm blanket given. pf1 00:41 No provider procedures requiring assistance completed. FSBGL 139. pf1 00:41 Maintain EMS IV. Dressing intact. Good blood return noted. Site clean \T\ dry. Gauge \T\ pf 1 site: 20 gauge to Right forearm. 00:45 Initial lab(s) drawn, by ED staff, sent to lab. EKG done, by ED staff, reviewed by pf1 Brian Saenz MD. 01:03 CT Stroke Brain w/o Contrast In Process Unspecified. EDMS 01:03 CT Head Angio In Process Unspecified. EDMS 01:03 CT Neck Angio In Process Unspecified. EDMS 01:10 XRAY Chest (1 view) In Process Unspecified. EDMS 01:30 COVID swab sent to lab. flu swab sent to lab. pf1 01:30 [facility] called for transfer, spoke with Prabha MENDEZ RN. ty 01:38 Vkm2Dsl with [facility] with Dr. Rowe transferred to hospitalist Dr. Preciado received ty acceptance for patient at 0151. 01:52 EMS called for transport. ty 02:33 Patient transferred, IV remains in place. pf1 02:33 Provided Education on: the need for transfer. pf1 Administered Medications: 01:10 Drug: NS 0.9% IV 1000 ml IV at 1 bolus Per protocol; 1000 mL bolus Route: IV; Rate: 1 pf1 bolus; Site: right forearm; 01:45 Follow up: Response: No adverse reaction; Marked relief of symptoms pf1 02:00 Follow up: IV Status: Completed infusion; IV Intake: 1000ml pf1 01:10 Drug: foLIC Acid IVPB 1 mg IVPB once Route: IVPB; Site: right forearm; pf1 01:45 Follow up: Response: No adverse reaction; IV Status: Completed infusion pf1 Medication: 02:33 VIS not applicable for this client. pf1 Intake: 02:00 IV: 1000ml; Total: 1000ml. pf1 Outcome: 01:01 ER care complete, transfer ordered by azeem 02:23 Transferred by [facility] to [facility], Transfer form completed. pf1 X-rays sent w/ patient. 02:23 Condition: stable 02:23 Instructed on the need for admit, Demonstrated understanding of instructions, Patient report given to Zahida with EMS and Juan Mckeon RN at [facility]. 02:33 Patient left the ED. pf1 NIH Stroke Scale - NIH Stroke Score Date: 06/07/2023 Time: 00:35 Total Score = 8 10. Dysarthria (speech clarity - read or repeat words) - 0(Normal) 11. Extinction and Inattention (visual/tactile/auditory/spatial/personal) - 0(No abnormality) 1a. Level of Consciousness (LOC) - 0(Alert) 1b. Level of Consciousness (LOC) (Month \T\ Age) - 0(Both) 1c. LOC Commands (Open \T\ Closes Eyes/Geothermal Technician) - 0(Both) 2. Best Gaze (Lateral Gaze Paresis) - 0(Normal) 3. Visual Field Loss - 0(No visual loss) 4. Facial Palsy - 0(Normal) 5a. Left Arm: Motor (10-second hold) - 3(No effort against gravity) 5b. Right Arm: Motor (10-second hold) - 0(No drift) 6a. Left Leg: Motor (5-second hold - always test supine) - 3(No effort against gravity) 6b. Right Leg: Motor (5-second hold - always test supine) - 0(No drift) 7. Limb Ataxia (finger/nose \T\ heel/samuels - test with eyes open) - 2(Present in two limbs) 8. Sensory Loss (pinprick arms/legs/face) - 0(Normal) 9. Best Language: Aphasia (description/naming/reading) - 0(No aphasia) Initials: pf1 NIH Stroke Scale - NIH Stroke Score Date: 06/07/2023 Time: 00:58 Total Score = 5 10. Dysarthria (speech clarity - read or repeat words) - 0(Normal) 11. Extinction and Inattention (visual/tactile/auditory/spatial/personal) - 0(No abnormality) 1a. Level of Consciousness (LOC) - 0(Alert) 1b. Level of Consciousness (LOC) (Month \T\ Age) - 0(Both) 1c. LOC Commands (Open \T\ Closes Eyes/Geothermal Technician) - 0(Both) 2. Best Gaze (Lateral Gaze Paresis) - 0(Normal) 3. Visual Field Loss - 0(No visual loss) 4. Facial Palsy - 0(Normal) 5a. Left Arm: Motor (10-second hold) - 0(No drift) 5b. Right Arm: Motor (10-second hold) - 0(No drift) 6a. Left Leg: Motor (5-second hold - always test supine) - 3(No effort against gravity) 6b. Right Leg: Motor (5-second hold - always test supine) - 0(No drift) 7. Limb Ataxia (finger/nose \T\ heel/samuels - test with eyes open) - 2(Present in two limbs) 8. Sensory Loss (pinprick arms/legs/face) - 0(Normal) 9. Best Language: Aphasia (description/naming/reading) - 0(No aphasia) Initials: azeem NIH Stroke Scale - NIH Stroke Score Date: 06/07/2023 Time: 01:30 Total Score = 8 10. Dysarthria (speech clarity - read or repeat words) - 0(Normal) 11. Extinction and Inattention (visual/tactile/auditory/spatial/personal) - 0(No abnormality) 1a. Level of Consciousness (LOC) - 0(Alert) 1b. Level of Consciousness (LOC) (Month \T\ Age) - 0(Both) 1c. LOC Commands (Open \T\ Closes Eyes/Geothermal Technician) - 0(Both) 2. Best Gaze (Lateral Gaze Paresis) - 0(Normal) 3. Visual Field Loss - 0(No visual loss) 4. Facial Palsy - 0(Normal) 5a. Left Arm: Motor (10-second hold) - 3(No effort against gravity) 5b. Right Arm: Motor (10-second hold) - 0(No drift) 6a. Left Leg: Motor (5-second hold - always test supine) - 3(No effort against gravity) 6b. Right Leg: Motor (5-second hold - always test supine) - 0(No drift) 7. Limb Ataxia (finger/nose \T\ heel/samuels - test with eyes open) - 2(Present in two limbs) 8. Sensory Loss (pinprick arms/legs/face) - 0(Normal) 9. Best Language: Aphasia (description/naming/reading) - 0(No aphasia) Initials: pf1 NIH Stroke Scale - NIH Stroke Score Date: 06/07/2023 Time: 02:30 Total Score = 8 10. Dysarthria (speech clarity - read or repeat words) - 0(Normal) 11. Extinction and Inattention (visual/tactile/auditory/spatial/personal) - 0(No abnormality) 1a. Level of Consciousness (LOC) - 0(Alert) 1b. Level of Consciousness (LOC) (Month \T\ Age) - 0(Both) 1c. LOC Commands (Open \T\ Closes Eyes/Geothermal Technician) - 0(Both) 2. Best Gaze (Lateral Gaze Paresis) - 0(Normal) 3. Visual Field Loss - 0(No visual loss) 4. Facial Palsy - 0(Normal) 5a. Left Arm: Motor (10-second hold) - 3(No effort against gravity) 5b. Right Arm: Motor (10-second hold) - 0(No drift) 6a. Left Leg: Motor (5-second hold - always test supine) - 3(No effort against gravity) 6b. Right Leg: Motor (5-second hold - always test supine) - 0(No drift) 7. Limb Ataxia (finger/nose \T\ heel/samuels - test with eyes open) - 2(Present in two limbs) 8. Sensory Loss (pinprick arms/legs/face) - 0(Normal) 9. Best Language: Aphasia (description/naming/reading) - 0(No aphasia) Initials: pf1 Signatures: Dispatcher [employer] EDBrian Frod MD MD cha Bryson, James, RN RN jb4 Kandis Hammond RN RN jw7 Hedy Swenson RN RN pf1 Qasim Calhoun Corrections: (The following items were deleted from the chart) 07:16 01:32 Triage completed. pf1 pf1
[2023-06-07 03:39] VITALS: BP 123/80; TEMP 98.8; O2SAT 97
--- NOTE | 2023-06-07 15:39 | RAD REPORT ---
EXAM DESCRIPTION: RAD - Chest Single View - 06/07/2023 1:08 am CLINICAL HISTORY: Shortness of breath. COMPARISON: None. FINDINGS The heart size is enlarged with central pulmonary vascular congestion. No consolidation, pl eural effusion, or pneumothorax is seen. The bony structures are preserved. IMPRESSION: Mild pulmonary edema pattern, without pleural effusions or focal consolidation. Electronically signed by: Bryan Merida MD 06/07/2023 01:25 AM CDT Due to temporary technical issues with the PACS/Fluency reporting system, reports are being signed by the in house radiologists without review as a courtesy to insure prompt reporting. The interpreting radiologist is fully responsible for the content of the report.
--- NOTE | 2023-06-07 15:53 | RAD REPORT ---
EXAM DESCRIPTION: CT - Ct Stroke Brain Wo Cont - 06/07/2023 7:25 am ADDENDUM #1 THIS REPORT CONTAINS FINDINGS THAT MAY BE CRITICAL TO PATIENT CARE: The findings were verbally discus sed via telephone conference with Dr. Brian Saenz at 1:27 AM CDT on 06/07/2023. Electronically signed by: Juan Green MD 06/07/2023 01:33 AM CDT End of Addendum EXAM DESCRIPTION: Ct Stroke Brain Wo Cont 06/07/2023 1:20 AM CDT CLINICAL HISTORY: 83 years, Male, STROKE ALERT COMPARISON: 07/24/2021 FINDINGS: Multiple transaxial tomograms of the brain were obtained from the base of the skull to the vertex without contrast. An individualized dose optimization technique, Automated Exposure Control, was utilized for the perfo rmed procedure. BRAIN: The brain demonstrate prominence of the sulci and gyri corresponding to mild brain atrophy. Ag ain there is identified a presence of encephalomalacia/porencephalic changes within the right cerebra l hemisphere corresponding to a subpleural area of infarction similar to prior study. There is no rayna dence for midline shift and/or mass effect. There is no evidence for acute hemorrhage. VENTRICLES: There is compensatory dilatation of the right lateral ventricle. Otherwise the lateral ve ntricles and cisterns displace normal appearance. VASCULATURE: No visualized abnormalities in the arteries or dural venous sinuses. SCALP/SKULL: The calvarium demonstrate to be intact with no evidence for acute bony injuries. SINUSES: The visualized paranasal sinuses and mastoid air cells demonstrate to be clear. ORBITS: No significant abnormalities in the visualized orbital structures. IMPRESSION: No evidence for acute hemorrhage. Stable right cerebral hemisphere infarct. Mild brain atrophy. Electronically signed by: Juan Green MD 06/07/2023 01:22 AM CDT Due to temporary technical issues with the PACS/Fluency reporting system, reports are being signed by the in house radiologists without review as a courtesy to insure prompt reporting. The interpreting radiologist is fully responsible for the content of the report.
--- NOTE | 2023-06-07 16:01 | RAD REPORT ---
EXAM DESCRIPTION: CT - Neck Angio - 06/07/2023 7:26 am CLINICAL HISTORY: 83 years, Male, STROKE ALERT COMPARISON: 11/25/2020 TECHNIQUE: Multiple transaxial tomograms from the aortic arch through the brain were performed after administration of large bolus of IV contrast for complete opacification of the carotid arteries and intracranial vessels. Subsequent 2-D and 3-D multiplanar reformats, volume rendering technique and maximum intensity projec tion images were generated and reviewed An individualized dose optimization technique, Automated Exposure Control, was utilized for the perfo rmed procedure. CAROTID STENOSIS REFERENCE USING NASCET CRITERIA: % ICA stenosis = (1 - narrowest ICA diameter/diamet er of distal cervical ICA) x 100. Mild - <50% stenosis. Moderate - 50-69% stenosis. Severe - 70-94% stenosis. Near occlusion - 95-99% stenosis. Occluded - 100% stenosis. FINDINGS: Ascending aorta: The aortic arch was not imaged. There is normal appearance of the proxi mal aspect of the common carotid arteries. There is right vertebral artery dominance with normal po sition of both vertebral arteries. No great vessel origin stenosis is identified. Right carotid artery: Normal opacification is demonstrated within the right common carotid artery and at the carotid bifurcation. The carotid bulb demonstrate to be within normal limits. No evidence for stenosis. The proximal, mid and distal portion of the right internal carotid artery demonstrated to be patent. No evidence for stenosis and/or occlusion. There is mild tortuosity distal portion of th e right ICA. Left carotid artery: Normal opacification is demonstrated within the left common carotid artery and at the carotid bifurcation. The carotid bulb demonstrate to be within normal limits. No evidence for stenosis. The proximal, mid and distal portion of the left internal carotid artery demonstrated to b e patent. No evidence for stenosis and/or occlusion. There is mild tortuosity of the distal portion of the left ICA. Intracranial circulation: Intracranial portions of the internal carotid arteries the cavernous sinus portions demonstrates no focal areas of significant stenosis and/or aneurysm. Again identified presen ce of decrease caliber/subtotal infarction branches of the right middle cerebral artery/M2-M3 segment s, similar to prior study. The Anterior cerebral arteries, left middle cerebral arteries and its bran ches demonstrate normal opacification with no evidence for stenosis, occlusion and/or aneurysm. Again there is origin of the left BUYER ASSISTANT. There is normal venous drainage with no evidence for sinus ve in thrombosis. Vertebrobasilar system: The posterior circulation demonstrate right vertebral artery dominance with n o evidence for stenosis and/or evidence for significant dissection. There is origin of the left BUYER ASSISTANT. Otherwise the Vertebrobasilar system and BUYER ASSISTANT demonstrate to be normal with no evidence for aneu rysm and/or occlusion. The brain parenchyma demonstrate large area of subtotal infarction right frontal lobe similar to prio r study. No evidence for mass effect and/or midline shift. There is no evidence for abnormal parenchy mal enhancement. The skull base and intracranial structures demonstrate to be within normal limits. Mucosal thickening right ethmoid sinus and right maxillary sinus. Lung apex: No gross abnormalities are noted within the apices. IMPRESSION: Decreased caliber/subtotal infarction branches of the right middle cerebral artery/M2-M3 segments, similar to prior study corresponding to patient known subpleural infarction right MCA dist ribution. No evidence for significant stenosis and/or occlusion of the intracranial vasculature. No evidence for significant stenosis and/or occlusion of the cervical carotid arteries. Right vertebral artery dominance with normal position of both vertebral arteries. origin of the left BUYER ASSISTANT. Overall no significant interval change in comparison with 11/25/2020. Electronically signed by: Juan Green MD 06/07/2023 01:31 AM CDT Due to temporary technical issues with the PACS/Fluency reporting system, reports are being signed by the in house radiologists without review as a courtesy to insure prompt reporting. The interpreting radiologist is fully responsible for the content of the report.
--- NOTE | 2023-06-07 16:21 | RAD REPORT ---
EXAM DESCRIPTION: CT - Head angio - 06/07/2023 7:26 am CLINICAL HISTORY: 83 years, Male, STROKE ALERT COMPARISON: 11/25/2020 TECHNIQUE: Multiple transaxial tomograms from the aortic arch through the brain were performed after administration of large bolus of IV contrast for complete opacification of the carotid arteries and intracranial vessels. Subsequent 2-D and 3-D multiplanar reformats, volume rendering technique and maximum intensity projec tion images were generated and reviewed An individualized dose optimization technique, Automated Exposure Control, was utilized for the perfo rmed procedure. CAROTID STENOSIS REFERENCE USING NASCET CRITERIA: % ICA stenosis = (1 - narrowest ICA diameter/diamet er of distal cervical ICA) x 100. Mild - <50% stenosis. Moderate - 50-69% stenosis. Severe - 70-94% stenosis. Near occlusion - 95-99% stenosis. Occluded - 100% stenosis. FINDINGS: Ascending aorta: The aortic arch was not imaged. There is normal appearance of the proxi mal aspect of the common carotid arteries. There is right vertebral artery dominance with normal po sition of both vertebral arteries. No great vessel origin stenosis is identified. Right carotid artery: Normal opacification is demonstrated within the right common carotid artery and at the carotid bifurcation. The carotid bulb demonstrate to be within normal limits. No evidence for stenosis. The proximal, mid and distal portion of the right internal carotid artery demonstrated to be patent. No evidence for stenosis and/or occlusion. There is mild tortuosity distal portion of th e right ICA. Left carotid artery: Normal opacification is demonstrated within the left common carotid artery and at the carotid bifurcation. The carotid bulb demonstrate to be within normal limits. No evidence for stenosis. The proximal, mid and distal portion of the left internal carotid artery demonstrated to b e patent. No evidence for stenosis and/or occlusion. There is mild tortuosity of the distal portion of the left ICA. Intracranial circulation: Intracranial portions of the internal carotid arteries the cavernous sinus portions demonstrates no focal areas of significant stenosis and/or aneurysm. Again identified presen ce of decrease caliber/subtotal infarction branches of the right middle cerebral artery/M2-M3 segment s, similar to prior study. The Anterior cerebral arteries, left middle cerebral arteries and its bran ches demonstrate normal opacification with no evidence for stenosis, occlusion and/or aneurysm. Again there is origin of the left EXTRACTION MACHINE OPERATOR. There is normal venous drainage with no evidence for sinus ve in thrombosis. Vertebrobasilar system: The posterior circulation demonstrate right vertebral artery dominance with n o evidence for stenosis and/or evidence for significant dissection. There is origin of the left EXTRACTION MACHINE OPERATOR. Otherwise the Vertebrobasilar system and EXTRACTION MACHINE OPERATOR demonstrate to be normal with no evidence for aneu rysm and/or occlusion. The brain parenchyma demonstrate large area of subtotal infarction right frontal lobe similar to prio r study. No evidence for mass effect and/or midline shift. There is no evidence for abnormal parenchy mal enhancement. The skull base and intracranial structures demonstrate to be within normal limits. Mucosal thickening right ethmoid sinus and right maxillary sinus. Lung apex: No gross abnormalities are noted within the apices. IMPRESSION: Decreased caliber/subtotal infarction branches of the right middle cerebral artery/M2-M3 segments, similar to prior study corresponding to patient known subpleural infarction right MCA dist ribution. No evidence for significant stenosis and/or occlusion of the intracranial vasculature. No evidence for significant stenosis and/or occlusion of the cervical carotid arteries. Right vertebral artery dominance with normal position of both vertebral arteries. origin of the left EXTRACTION MACHINE OPERATOR. Overall no significant interval change in comparison with 11/25/2020. Electronically signed by: Juan Green MD 06/07/2023 01:31 AM CDT Due to temporary technical issues with the PACS/Fluency reporting system, reports are being signed by the in house radiologists without review as a courtesy to insure prompt reporting. The interpreting radiologist is fully responsible for the content of the report.
--- NOTE | 2023-06-08 12:59 | EKG ---
Test Date: 2023-06-07 Test Time: 01:08:32 Canine Service Teacher: RACHEL MEASUREMENT RESULTS: Intervals: Rate: 78 MN: QRSD: 96 QT: 438 QTc: 499 [place]: P: MN: QRS: 35 T: 55 INTERPRETIVE STATEMENTS: Atrial flutter with variable AV block Nonspecific ST and T wave abnormality Prolonged QT Abnormal ECG Compared to ECG 11/25/2020 09:59:34 ST (T wave) deviation now present Ventricular premature complex(es) no longer present T-wave abnormality no longer present Electronically Signed On 06-08-23 12:55:23 CDT by Jace Carver
== END 2023-06-07 02:33 | disposition short-term general hospital (02) ==
LOC: ER 00:31
DX: I63.9 Cerebral infarction, unspecified (principal); R29.705 NIHSS score 5; I50.9 Heart failure, unspecified; I48.91 Unspecified atrial fibrillation; Z86.73 Personal history of transient ischemic attack (TIA), and cerebral infarction without residual deficits; Z91.030 Bee allergy status; Z95.1 Presence of aortocoronary bypass graft; Z11.52 Encounter for screening for COVID-19
CPT/HCPCS: 93005; 85025; 80048; 36415; 83735; 85610; 82947; 80076; 84484; 83880; 86140; 87804 ×2; 70496; 70498; 70450; 71045; 87811; J7030; 96365; 99285

== ENCOUNTER 2024-10-30 11:52 | Emergency (ER) | payer OTHER ==
--- NOTE | 2024-10-30 12:44 | RAD REPORT ---
EXAMINATION: Head C Spine Mpr Wo Con CLINICAL INDICATION: Male, 84 years old. TRAUMA TECHNIQUE: Axial CT images from the skull base to the vertex without intravenous contrast. Axial CT i mages through the cervical spine were obtained without intravenous contrast. Sagittal and coronal reformatted images were created from the data set. Coronal and sagittal reformatted images were creat ed from the data set. One or more of the following dose reduction techniques were used: Automated exposure control, adjustment of the mA and/or kV according to patient size, and/or iterative reconstr uction. Unless otherwise specified, incidental findings do not require dedicated imaging follow-up. [id number]. COMPARISON: No prior exams FINDINGS: Head: INTRACRANIAL: No acute intracranial hemorrhage. 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 No hydrocephalus. No mass effect or midline shift. Mild chronic small vessel ischemic changes.Mild cerebral atrophy. VASCULATURE: No visualized abnormalities in the arteries or dural venous sinuses. SCALP/SKULL: No calvarial fracture identified. No acute soft tissue abnormality. SINUSES: The visualized paranasal sinuses are mostly clear. No significant mastoid fluid. Cervical spine: ALIGNMENT: 2 mm of retrolisthesis of C3 on C4 and C4 on C5. BONE: Vertebral body heights are maintained. No aggressive osseous lesions. DEGENERATIVE: Multilevel cervical spondylosis with evidence of bilateral neural foraminal narrowing. No high grade central spinal stenosis. Cervical spondylosis is moderate to severe bilaterally. SOFT TISSUE: No significant abnormalities in the soft tissue of the neck. The visualized lung apices are clear. IMPRESSION: No acute intracranial abnormality. No acute fracture or traumatic malalignment of the cervical spine.
--- NOTE | 2024-10-30 12:54 | RAD REPORT ---
EXAMINATION: Pelvis Wo Cont CLINICAL INDICATION: Male, 84 years old. recent L hip surgery;Trauma TECHNIQUE: CT pelvis was performed, without IV contrast, as per department protocol. Axial, sagittal and coronal reconstructions were obtained. One or more of the following dose reduction techniques were used: Automated exposure control, adjustment of the mA and/or kV according to patient size, and/ or iterative reconstruction. Unless otherwise specified, incidental findings do not require dedicated imaging follow-up. [id number]. IV CONTRAST: Not administered. COMPARISON: No prior exam. FINDINGS: ABDOMINAL WALL: Fat-containing inguinal hernias. REPRODUCTIVE ORGANS: No pathologic process. URINARY BLADDER: Underdistended but grossly unremarkable. MUSCULOSKELETAL: No acute or suspicious osseous abnormality. Left hip arthroplasty. This is located. No periprosthetic fracture. ADDITIONAL FINDINGS: None. IMPRESSION: No pelvic fracture. Intact left hip arthroplasty.
--- NOTE | 2024-10-30 12:57 | EDPHYS ---
Physician Documentation [facility] Name: Leonidas Corona Age: 84 yrs Sex: Male : 1940 Arrival Date: 10/30/2024 Time: 11:52 Bed 23 Private MD: ED Physician Gabe Deras HPI: 10/30 13:44 This 84 yrs old Male presents to ER via EMS with complaints of Fall Injury. sb4 13:50 Mechanical fall when transferring from a chair. Is complaining of pain and stiffness in sb4 his left thigh. Is concerned because he had hip surgery recently. EMS noted a hematoma on the back of his head and he is on blood thinners. No loss of consciousness, patient denies any headache. Historical: - Allergies: 12:09 Bee Venom; jl7 - Home Meds: 12:09 atorvastatin 80 mg oral tablet [Active]; citalopram 20 mg oral tablet [Active]; jl7 dutasteride 0.5 mg oral capsule [Active]; Eliquis 5 mg Oral tab 1 tab 2 times per day [Active]; gabapentin 300 mg Oral tab 3 cap twice a day [Active]; levetiracetam 500 mg oral tablet 2 times per day [Active]; losartan 50 mg oral tablet daily [Active]; metformin 500 mg Oral Tb24 1 tab once daily [Active]; metoprolol succinate 50 mg Oral Tb24 1 tab once daily [Active]; oxybutynin chloride 5 mg oral tablet daily [Active]; Flomax 0.4 mg Oral cp24 1 cap nightly [Active]; senna 8.6 mg Oral cap 2 caps nightly [Active]; tramadol 50 mg Oral tab 1 tab 4-6 hours as needed for pain [Active]; - PMHx: 12:09 Atrial Fib; Congestive heart failure; CVA; left sided deficits; High Cholesterol; jl7 mitral valve repair; - PSHx: 12:09 Appendectomy; cardiac bypass; Right leg surgery; jl7 - Immunization history:: Adult Immunizations unknown. - Infectious Disease History:: Denies. - Social history:: Smoking status: Patient denies any tobacco usage or history of. ROS: 13:50 Constitutional: Negative for fever, chills, and weight loss, sb4 13:50 MS/extremity: Positive for pain, of the left leg, 13:50 All other systems are negative, Exam: 13:50 Constitutional: This is a well developed, well nourished patient who is awake, alert, sb4 and in no acute distress. Head/Face: Normocephalic, atraumatic. Eyes: Extra-ocular motions intact. Periorbital areas with no swelling, redness, or edema. ENT: Mucous membranes moist. Cardiovascular: Regular rate and rhythm with a normal S1 and S2. Respiratory: No increased work of breathing, no retractions or nasal flaring. Abdomen/GI: Soft, non-tender, no distension. Skin: Warm, dry with normal turgor. Normal color with no rashes, no lesions, and no evidence of cellulitis. 13:50 Musculoskeletal/extremity: Swelling left lower extremity, palpable mass left calf. Vital Signs: 11:59 BP 170 / 82; Pulse 89; Resp 17; Temp 97; Pulse Ox 100% ; jl7 12:15 BP 151 / 83; Pulse 66; Resp 18; Pulse Ox 98% on R/A; kj2 13:10 BP 166 / 87; Pulse 54; Resp 20; Temp 98; Pulse Ox 100% on R/A; kj2 14:20 BP 161 / 71; Pulse 66; Resp 18; Pulse Ox 97% ; kj2 15:20 BP 161 / 71; Pulse 90; Resp 20; Pulse Ox 96% on R/A; kj2 15:45 BP 180 / 103; Pulse 49; Resp 18; Pulse Ox 95% on R/A; kj2 16:04 BP 160 / 72; Pulse 100; Resp 18; Temp 98.2; Pulse Ox 95% on R/A; kj2 MDM: 11:55 Medical Screening Exam initiated sb4 13:50 Differential Diagnosis fracture, sprain, head injury. Data reviewed: vital signs, sb4 nurses notes, EMS record, correction records, radiologic studies, CT scan, doppler, and as a result, I will discharge patient. Care significantly affected by the following chronic conditions: Hypertension, Congestive Heart Failure. ED course: Patient states that he had a venous Doppler that was negative for DVT, states that his left leg is chronically swollen. 10/30 11:56 Order name: Head C Spine MPR Wo Con CT; Complete Time: 12:56 sb4 10/30 11:56 Order name: Pelvis Wo Cont CT; Complete Time: 12:56 sb4 10/30 13:23 Order name: Extrmty Nonvasular Limited; Complete Time: 14:20 sb4 10/30 14:46 Order name: Abelardo Wrap: left calf; Complete Time: 15:03 sb4 Administered Medications: 14:57 Drug: HYDROcodone-acetaminophen PO 5 mg-325 mg 1 tabs PO once Route: PO; kj2 14:57 Follow up: Response: Medication administered at discharge. kj2 Disposition: 18:27 Co-signature as Attending Physician, Gabe Deras MD I reviewed the patient's care rn provided by the Advanced Practice Provider and agree with the diagnosis and treatment plan. Disposition Summary: 10/30/24 14:45 Discharge Ordered Notes: Location: Home(10/30/24 14:45) sb4 Problem: new(10/30/24 14:45) sb4 Symptoms: have improved(10/30/24 14:45) sb4 Condition: Stable(10/30/24 14:45) sb4 Diagnosis - Pain in left leg sb4 Followup: sb4 - With: Private Physician - When: As needed - Reason: Recheck today's complaints, Re-evaluation by your physician Discharge Instructions: - Discharge Summary Sheet sb4 - Lipoma sb4 - Musculoskeletal Pain sb4 Forms: - Patient Portal Instructions sb4 - Leadership Thank You Letter sb4 Signatures: Dispatcher [employer] EDGabe Freed MD MD rn Leal, Jahala RN RN jl7 Adelaida Parker PA-C PALara sb4 Cindy Ambrosio RN RN kj2 Corrections: (The following items were deleted from the chart) 12:14 12:09 Home Meds: tamsulosin 0.4 mg oral capsule; vandana jl7 12:57 12:57 Fall from non-moving wheelchair sb4 sb4 13:22 12:57 Home sb4 sb4 13:22 12:57 new sb4 sb4 13:22 12:57 have improved sb4 sb4 13:22 12:57 Stable sb4 sb4 13:22 12:57 Fall on same level, unspecified sb4 sb4
--- NOTE | 2024-10-30 12:57 | ER ---
Nurse's Notes [facility] Name: Leonidas Corona Age: 84 yrs Sex: Male : 1940 Arrival Date: 10/30/2024 Time: 11:52 Bed 23 Private MD: Diagnosis: Pain in left leg Presentation: 10/30 11:59 Chief complaint: EMS states: Toned out for mechanical fall from standing, fell onto jl7 left butt/hip and back onto head, pt reports pain to left hip. Coronavirus screen: At this time, the client does not indicate any symptoms associated with coronavirus-19. Ebola Screen: No symptoms or risks identified at this time. Initial Sepsis Screen: Does the patient meet any 2 criteria? No. Patient's initial sepsis screen is negative. Does the patient have a suspected source of infection? No. Patient's initial sepsis screen is negative. Risk Assessment: Do you want to hurt yourself or someone else? Patient reports no desire to harm self or others. Onset of symptoms was October 30, 2024. 11:59 Method Of Arrival: EMS: [facility] 11:59 Acuity: EFFIE 4 jl7 Triage Assessment: 11:59 General: Appears in no apparent distress. uncomfortable, Behavior is calm, cooperative, jl7 appropriate for age. Pain: Complains of pain in left leg. Historical: - Allergies: 12:09 Bee Venom; jl7 - Home Meds: 12:09 atorvastatin 80 mg oral tablet [Active]; citalopram 20 mg oral tablet [Active]; jl7 dutasteride 0.5 mg oral capsule [Active]; Eliquis 5 mg Oral tab 1 tab 2 times per day [Active]; gabapentin 300 mg Oral tab 3 cap twice a day [Active]; levetiracetam 500 mg oral tablet 2 times per day [Active]; losartan 50 mg oral tablet daily [Active]; metformin 500 mg Oral Tb24 1 tab once daily [Active]; metoprolol succinate 50 mg Oral Tb24 1 tab once daily [Active]; oxybutynin chloride 5 mg oral tablet daily [Active]; Flomax 0.4 mg Oral cp24 1 cap nightly [Active]; senna 8.6 mg Oral cap 2 caps nightly [Active]; tramadol 50 mg Oral tab 1 tab 4-6 hours as needed for pain [Active]; - PMHx: 12:09 Atrial Fib; Congestive heart failure; CVA; left sided deficits; High Cholesterol; jl7 mitral valve repair; - PSHx: 12:09 Appendectomy; cardiac bypass; Right leg surgery; jl7 - Immunization history:: Adult Immunizations unknown. - Infectious Disease History:: Denies. - Social history:: Smoking status: Patient denies any tobacco usage or history of. Screenin:10 [facility] Fall Risk Assessment (Adult) History of falling in the last 3 months, kj2 including since admission Yes- single mechanical fall (1 pt) Confusion or Disorientation No (0 pts) Intoxicated or Sedated No (0 pts) Impaired Gait Yes (1 pt) Mobility Assist Device Used Yes (1 pt) Altered Elimination No (0 pt) Score/Fall Risk Level 3 or more points = High Risk Maintained a safe environment, Educated pt \T\ family on fall prevention, incl call for assistance when getting out of bed, Hourly rounding (assess needs \T\ fall precautionary measures) done. Abuse screen: Denies threats or abuse. Denies injuries from another. Nutritional screening: No deficits noted. Tuberculosis screening: No symptoms or risk factors identified. Assessment: 12:10 General: Appears in no apparent distress. Behavior is cooperative. Pain: Complains of kj2 pain in left leg Pain currently is 5 out of 10 on a pain scale. Neuro: Level of Consciousness is awake, alert, obeys commands, Oriented to person, place, time, situation. Cardiovascular: Patient's skin is warm and dry. Respiratory: Airway is patent Respiratory effort is unlabored. GI: No signs and/or symptoms were reported involving the gastrointestinal system. : No signs and/or symptoms were reported regarding the genitourinary system. 13:07 Reassessment: Patient appears in no apparent distress at this time. Patient and/or kj2 family updated on plan of care and expected duration. Pain level reassessed. Patient is alert, oriented x 3, equal unlabored respirations, skin warm/dry/pink. 13:30 Reassessment: discharge on hold, ultrasound ordered. kj2 14:00 Reassessment: spoke with son Raudel regarding transportaion upon discharge, he is unable [facility] to pick him up, he consents [facility] to call EMS. 14:30 Reassessment: Patient appears in no apparent distress at this time. Patient and/or kj2 family updated on plan of care and expected duration. Pain level reassessed. Patient is alert, oriented x 3, equal unlabored respirations, skin warm/dry/pink. 15:02 Reassessment: report given to Danii at [facility] living, she will arrange kj2 transportation. 16:04 Reassessment: Patient appears in no apparent distress at this time. Patient and/or kj2 family updated on plan of care and expected duration. Pain level reassessed. Patient is alert, oriented x 3, equal unlabored respirations, skin warm/dry/pink. Vital Signs: 11:59 BP 170 / 82; Pulse 89; Resp 17; Temp 97; Pulse Ox 100% ; jl7 12:15 BP 151 / 83; Pulse 66; Resp 18; Pulse Ox 98% on R/A; kj2 13:10 BP 166 / 87; Pulse 54; Resp 20; Temp 98; Pulse Ox 100% on R/A; kj2 14:20 BP 161 / 71; Pulse 66; Resp 18; Pulse Ox 97% ; kj2 15:20 BP 161 / 71; Pulse 90; Resp 20; Pulse Ox 96% on R/A; kj2 15:45 BP 180 / 103; Pulse 49; Resp 18; Pulse Ox 95% on R/A; kj2 16:04 BP 160 / 72; Pulse 100; Resp 18; Temp 98.2; Pulse Ox 95% on R/A; kj2 ED Course: 11:55 Patient arrived in ED. sb4 11:55 [facility]elaida Parker [facility]. sb4 11:55 Gabe Deras MD is Attending Physician. sb4 11:59 Arm band placed on right wrist. jl7 12:04 Triage completed. jl7 12:10 Patient has correct armband on for positive identification. Bed in low position. Call kj2 light in reach. Provided Education on: call light, fall prevention. 12:22 Cindy Ambrosio, SHAY is Primary Nurse. kj2 12:37 Head C Spine MPR Wo Con CT In Process Unspecified. EDMS 12:[address] In Process Unspecified. EDMS 13:08 No provider procedures requiring assistance completed. kj2 13:09 Patient did not have IV access during this emergency room visit. kj2 14:08 US Extrmty Nonvasular Limited In Process Unspecified. EDMS Administered Medications: 14:57 Drug: HYDROcodone-acetaminophen PO 5 mg-325 mg 1 tabs PO once Route: PO; kj2 14:57 Follow up: Response: Medication administered at discharge. kj2 Medication: 13:07 VIS not applicable for this client. kj2 Outcome: 12:57 Discharge ordered by . sb4 13:09 Discharged to home ambulatory, kj2 13:09 Condition: stable 13:09 Discharge instructions given to patient, Instructed on discharge instructions, follow up and referral plans. Demonstrated understanding of instructions, follow-up care, 14:45 Discharge ordered by . sb4 16:07 Patient left the ED. kj2 Signatures: Dispatcher [employer] Rupesh Fitzpatrick RN RN ang7 Adelaida Parker, PA-C PA-C Cindy Ramos RN RN kj2 Corrections: (The following items were deleted from the chart) 12:14 12:09 Home Meds: tamsulosin 0.4 mg oral capsule; vandana ross 15:10 15:02 Reassessment: report given to Danii at [facility] kj2 kj2
--- NOTE | 2024-10-30 14:17 | RAD REPORT ---
EXAM: Extremity Nonvascular Limited HISTORY: swollen area left calf COMPARISON: None TECHNIQUE: Sonographic grayscale and color flow imaging of the left calf including the region of inte rest as described by the patient. FINDINGS: Isoechoic structure at the left calf within the subcutaneous tissues measuring 1.4 cm x 0.9 cm x 1.1 cm is identified. No vascular flow appreciated. This is rounded in shape IMPRESSION: Isoechoic rounded structure at the area of concerning within the subcutaneous fat of the left calf ma y represent lipoma, isoechoic hematoma, or fat necrosis. Suggest clinical follow-up.
[2024-10-30] MEDS ORDERED: HYDROCODONE/APAP 5/325 MG TAB ONE (14:54)
[2024-10-30 16:20] VITALS: O2SAT 95
[2024-10-30 16:22] VITALS: BP 160/72; TEMP 98.2
== END 2024-10-30 16:07 | disposition home or self-care (01) ==
LOC: ER 11:52
DX: M79.652 Pain in left thigh (principal); E78.00 Pure hypercholesterolemia, unspecified; Z86.73 Personal history of transient ischemic attack (TIA), and cerebral infarction without residual deficits; I50.9 Heart failure, unspecified; I48.11 Longstanding persistent atrial fibrillation; Z79.01 Long term (current) use of anticoagulants
CPT/HCPCS: 70450; 72125; 72192; 76882; 99284